=== PATIENT | female | born 1940 | race Caucasian/White ===

== ENCOUNTER 2024-03-01 18:07 | Emergency (ER) | payer MEDICARE, SELFPAY ==
[2024-03-01] VITALS (23 sets, daily range): BP systolic 176–220; BP diastolic 79–172; PULSE 85–114; RESP 15–23; TEMP 36.7; O2SAT 85–96
--- NOTE | 2024-03-01 18:15 | DI.CT_ITS ---
Exam(s) CT HEAD CERV SPINE FACIAL WO EXAM: CT HEAD CERV SPINE FACIAL WO CLINICAL HISTORY: fall, right periorbital hematoma , right max lac. TECHNIQUE: Imaging Protocol: Axial computed tomography images with coronal and sagittal reformatted images were created and reviewed COMPARISON: No exams were available for comparison FINDINGS: CT Head: Ventricles and Extra axial spaces: Normal in size and morphology for the patient's age. Hemorrhage: None. Cerebral parenchyma: There are areas of decreased attenuation in the white matter consistent with chr onic microvascular ischemic disease. There is a old lacunar infarct on the left. There is a calcifi ed mass measuring approximately 1.2 cm seen in the periventricular regions superior to the right late ral ventricle. Midline shift: None. Brainstem/Cerebellum: Normal. Calvarium: Normal. Visualized Paranasal sinuses/Mastoids: There is a mucous retention cyst or polyp in the left maxillar y sinus. Soft Tissues: There is right periorbital soft tissue swelling. There is also soft tissue swelling ov er the right forehead. There is also edema seen in the soft tissues over the right cheek. No focal fluid collection is seen to suggest an abscess. CT Face: Facial Bones: No definite fracture is noted in facial bones. Sinuses and Mastoids: Mucous retention cyst or polyp in the left maxillary sinus. Globes, extraocular muscles, optic nerves and retrobulbar fat: Normal. Upper aerodigestive tract: Normal. Mandible and bilateral temporomandibular joints: Normal. Soft tissues: Right periorbital and right cheek soft tissue swelling. CT Cervical Spine: Bones: No acute fracture or subluxation. Age-appropriate degenerative changes are seen in the cervica l spine. Soft Tissues: Unremarkable. Lung Apices: Clear. IMPRESSION: 1. No acute intracranial process. 2. Soft tissue swelling in the right periorbital region, right forehead and right cheek. 3. No acute fracture or subluxation in the cervical spine. 4. No acute facial fracture. 5. 1.2 cm partially calcified lesion adjacent to the right lateral ventricle. There are no prior jonathan dies for comparison. MRI may be considered for further evaluation. RADIATION DOSE DELIVERED: 2,028.88mGy.cm Total DLP DATA REPOSITORY: All CT scans at this facility are submitted to the National Radiology Data Registry (NRDR) Dose Index Registry (DIR) with the [employer] ([employer]). RADIATION OPTIMIZATION: All CT scans at this facility use at least one of these dose optimization te chniques: automated exposure control; mA and/or kV adjustment per patient size (includes targeted exa ms where dose is matched to clinical indication); or iterative reconstruction.
--- NOTE | 2024-03-01 19:19 | DI.RAD_ITS ---
Exam(s) XR PORTABLE CHEST AP EXAM: XR PORTABLE CHEST AP CLINICAL HISTORY: hypoxia TECHNIQUE: 2D digital imaging was performed of the chest. One image was obtained. An AP view was ob tained. COMPARISON: No exams were available for comparison FINDINGS: MEDIASTINUM: Normal. HEART: Normal. PULMONARY VASCULATURE: There is mild ectasia tortuosity of the thoracic aorta. LUNGS: Clear. PLEURAL SPACE: No pleural effusion or pneumothorax. BONE:Within normal limits for the patient's age. OTHER FINDINGS:There is a peripheral calcification projected over the T10 vertebral body of uncertain if any clinical significance. Foreign body cannot be excluded. External artifact should be conside red. Please correlate with physical exam. If further imaging is warranted, a PA and lateral chest s hould be obtained. IMPRESSION: 1. No acute pulmonary findings. 2. Rounded density projected over the T10 vertebral body as described above. Unexpected findings DATA REPOSITORY: RADIATION DOSE DELIVERED:
--- NOTE | 2024-03-01 19:51 | DI.VRAD_ITS ---
PROCEDURE INFORMATION: Exam: CT Head Without Contrast Exam date and time: 03/01/2024 18:33 Age: 83 years old Clinical indication: Injury or trauma; Blunt trauma (contusions or hematomas); Consciousness not specified; Orbit/periorbital; Patient HX: Fall, right periorbital hematoma, right max lac TECHNIQUE: Imaging protocol: Computed tomography of the head without contrast. COMPARISON: No relevant prior studies available. FINDINGS: Brain: Click riding paranasal Atrophy and chronic appearing white matter changes. Chronic cerebellar infarcts. A predominantly calcified 10 cm structure in the right periventricular parietal lobe without surrounding edema is likely benign or indolent. Follow-up as per institutional protocol. Cerebral ventricles: No ventriculomegaly. Paranasal sinuses: No acute sinusitis. Mastoid air cells: No mastoid effusion. Bones: The calvarium is intact. Soft tissues: Mild right frontal scalp swelling. IMPRESSION: 1. No acute intracranial findings. 2. Mild right frontal scalp swelling. PROCEDURE INFORMATION: Exam: CT Maxillofacial Without Contrast Exam date and time: 03/01/2024 18:33 Age: 83 years old Clinical indication: Injury or trauma; Blunt trauma (contusions or hematomas); Consciousness not specified; Orbit/periorbital; Patient HX: Fall, right periorbital hematoma, right max lac TECHNIQUE: Imaging protocol: Computed tomography of the face without contrast. COMPARISON: No relevant prior studies available. FINDINGS: Orbital cavities: Orbits are normal. Globes are unremarkable. Paranasal sinuses: Benign-appearing left maxillary sinus retention cyst. No acute appearing sinusitis. Bones: No acute fracture or subluxation. Soft tissues: Moderate right periorbital and pre maxillary soft tissue swelling with a small subcutaneous hematoma. IMPRESSION: 1. No acute bony pathology. 2. Moderate right periorbital and pre maxillary soft tissue swelling with a small subcutaneous hematoma. PROCEDURE INFORMATION: Exam: CT Cervical Spine Without Contrast Exam date and time: 03/01/2024 18:33 Age: 83 years old Clinical indication: Injury or trauma; Blunt trauma (contusions or hematomas); Consciousness not specified; Orbit/periorbital; Patient HX: Fall, right periorbital hematoma, right max lac TECHNIQUE: Imaging protocol: Computed tomography of the cervical spine without contrast. COMPARISON: No relevant prior studies available. FINDINGS: Bones: No acute fracture or subluxation. Moderate multilevel degenerative changes without nikole central canal stenosis. Multilevel neural foraminal stenosis. Lungs: No consolidation. Soft tissues: No suspicious lesions. IMPRESSION: No cervical spine fracture. Dictated and Authenticated by: Ivanna Butt MD. Ordering:MICHELLE Ortiz MD
--- NOTE | 2024-03-01 20:44 | DI.VRAD_ITS ---
PROCEDURE INFORMATION: Exam: XR Chest Exam date and time: 03/01/2024 7:13 PM Age: 83 years old Clinical indication: Other: Hypoxia TECHNIQUE: Imaging protocol: Radiologic exam of the chest. Views: 1 view. Other technique: Portable exam. COMPARISON: CT HEAD CERV SPINE FACIAL WO 03/01/2024 6:33 PM FINDINGS: Lungs: Unremarkable. No consolidation. Pleural spaces: Unremarkable. No pleural effusion. No pneumothorax. Heart/Mediastinum: Cardiomegaly. Vasculature: Aortic ectasia. Bones/joints: Unremarkable. IMPRESSION: No evidence for acute abnormality in the chest. Dictated and Authenticated by: Tamela Hartman MD. Ordering:MICHELLE Ortiz MD
--- NOTE | 2024-03-02 17:12 | ED.GENADUL_ITS ---
Discharge Plan Disposition Patient Disposition: Home Discharge Details Clinical Impression: Face lacerations, Hematoma Primary Care Provider: Yefri Rene ED Provider: Diana Bellamy Home Meds and New Rx's Prescriptions: Continued atorvastatin 40 mg tablet 40 mg PO QHS carvedilol 3.125 mg tablet 3.125 mg PO BID Rx Instructions: must administer with a meal/food ezetimibe 10 mg tablet 10 mg PO DAILY levothyroxine [Euthyrox] 100 mcg tablet 100 mcg PO DAILY losartan 100 mg tablet 100 mg PO DAILY Discharge Instructions Instructions: Facial Laceration (ED) Additional Instructions: keep wound clean and dry tylenol as needed for pain suture removal in 7 days wash with soap and water twice daily return earlier with new or worsening complaint s Referrals: Yefri Rene [Primary Care Provider] - 1 day Discharge Data Discharge Date/Time-TO BE ENTERED AT DEPARTURE: 03/01/24 21:47 HPI General Date/Time Provider Initiated Documentation: 03/01/24 18:23 . HPI Narrative: This 83-year-old female with a history of hypothyroidism, hypertension, Alzheimer's dementia, and hyperlipidemia presents with report of fall. Unwitnessed but patient screamed and was alert and oriented when staff ran in room, no obvious loss of consciousness. Patient is not supposed to be ambulating independently and she was attempting to stand reportedly Patient fell forward and hit her face on the floor. She was brought in for assessment secondary to significant swelling and ecchymosis with bleeding and laceration. Patient is DNR/DNI, family and physician at skilled centers are requesting assessment. Patient is agreeable to assessment in the emergency department exam tetanus reportedly up-to-date. Related Data Home Medications Medication Instructions Recorded Confirmed atorvastatin 40 mg tablet 40 mg PO QHS 03/01/24 03/01/24 carvedilol 3.125 mg tablet 3.125 mg PO BID 03/01/24 03/01/24 ezetimibe 10 mg tablet 10 mg PO DAILY 03/01/24 03/01/24 levothyroxine 100 mcg tablet 100 mcg PO DAILY 03/01/24 03/01/24 (Euthyrox) losartan 100 mg tablet 100 mg PO DAILY 03/01/24 03/01/24 Allergies Allergy/AdvReac Type Severity Reaction Status Date / Time adhesive tape Allergy Mild Unknown Verified 03/01/24 19:56 bupivacaine Allergy Unknown Unknown Verified 03/01/24 19:56 enalapril Allergy Unknown Unknown Verified 03/01/24 19:56 silicone Allergy Unknown Unknown Verified 03/01/24 19:56 simvastatin Allergy Unknown Unknown Verified 03/01/24 19:56 General Stated Complaint: Fall/Non TraumaCriteria AMELIA: 2 Exam Narrative Exam Narrative: Alert and oriented times three 83-year-old female, 2 inch laceration inferior to right orbit, pupils equal round reactive to light and accommodation, extraocular muscles intact epistaxis controlled to bilateral naris, ecchymosis and swelling to nasal bridge, maxillary swelling and tenderness, right predominantly with periorbital ecchymosis, no crepitus, no midline cervical spine tenderness, no chest wall tenderness, lungs clear to auscultation bilaterally, no respiratory distress, cardiac rate rhythm regular, no abdominal tenderness or visible evidence of trauma, able to follow all basic commands, neurovascularly intact all 4 extremities Course Vital Signs Vital signs: Vital Signs Temperature 36.7 C 03/01/24 18:05 Pulse 91 H 03/01/24 18:05 Respiratory Rate 18 03/01/24 18:05 Blood Pressure 199/82 H 03/01/24 18:05 Pulse Oximetry 89 L 03/01/24 18:05 Temperature 36.7 C 03/01/24 18:05 Temperature Source Skin 03/01/24 18:05 Pulse 99 H 03/01/24 21:06 Pulse 100 H 03/01/24 21:06 Respiratory Rate 22 03/01/24 21:06 Respiratory Effort Normal 03/01/24 18:12 Blood Pressure 181/89 H 03/01/24 21:06 Blood Pressure Mean 125 03/01/24 21:06 Blood Pressure Position Sitting 03/01/24 18:05 Pulse Oximetry 96 03/01/24 21:06 Oxygen Delivery Method Room Air 03/01/24 18:05 Oxygen Flow Rate 0 03/01/24 18:05 Pain Level 0 03/01/24 18:05 Medical Decision Making 83-year-old female with large facial laceration, given trauma to right orbit I did order CT facial bones, cervical spine, and head, no evidence of retrobulbar hematoma, no proptosis, negative Osbaldo sign, extraocular muscles intact, laceration was sutured with 4 sutures and these will need to be removed Patient is interestingly redness to have proximal in a supine position but in no respiratory distress with clear lungs auscultation, sooner she is seated in an upright position on better standing, her oxygenation is 96% She states that her oxygen levels are always low and improved with ambulation and this is typical for her. She is unsure of her baseline at time of assessment. I did order a chest x-ray which does not show evidence of obvious pneumothorax and again within normal respiratory exam I think this is reassuring. I did attempt to call Melani patient's DPCINDI, however there is no return call so sutures were placed CT images per virtual radiology interpretation my review are negative for acute process and patient is encouraged to follow-up regarding possible calcification for MRI at her discretion. She be discharged home to skilled rehabilitation center where she currently resides for continued monitoring and wound care Quality:SDOH Health Related Social Needs: No Data to Display PFSH All Active Problems (Updated 03/01/24 @ 21:16 by CORINA Jenkins) Hematoma (Acute) Face lacerations (Acute) Social History Smoking risk assessment performed?: No Substance use type: does not use Housing: other
== END 2024-03-01 21:47 | disposition home or self-care (01) ==
PROVIDERS: Emergency Provider Physician Assistant; PCP Family Medicine
DX: S01.81XA Laceration without foreign body of other part of head, initial encounter (principal); I10 Essential (primary) hypertension; E78.5 Hyperlipidemia, unspecified; E03.9 Hypothyroidism, unspecified; G30.9 Alzheimer's disease, unspecified; F02.80 Dementia in other diseases classified elsewhere, unspecified severity, without behavioral disturbance, psychotic disturbance, mood disturbance, and anxiety; Z66 Do not resuscitate; W18.39XA Other fall on same level, initial encounter; Y93.01 Activity, walking, marching and hiking; Y92.092 Bedroom in other non-institutional residence as the place of occurrence of the external cause
CPT/HCPCS: 12011; 99284; 70450; 70486; 71045; 72125

== ENCOUNTER 2024-03-22 08:29 | Emergency (ER) | payer MEDICARE, SELFPAY ==
[2024-03-22 08:34] VITALS: BP 174/86; PULSE 71; RESP 10; TEMP 36.2; O2SAT 92
[2024-03-22 08:44] VITALS: BP 174/86; PULSE 71; RESP 10; TEMP 36.2; O2SAT 92
--- NOTE | 2024-03-22 08:55 | W.ED.GENAD ---
Discharge Plan Disposition Patient Disposition: Home Condition: Stable Discharge Details Clinical Impression: Post surgical complication Primary Care Provider: Yefri Rene ED Provider: Diana Bellamy Home Meds and New Rx's Prescriptions: Continued acetaminophen 325 mg tablet 325 mg PO Q4H PRN aspirin 81 mg tablet,delayed release (DR/EC) 81 mg PO DAILY atorvastatin 40 mg tablet 40 mg PO QHS carvedilol 3.125 mg tablet 3.125 mg PO BID Rx Instructions: must administer with a meal/food ezetimibe 10 mg tablet 10 mg PO DAILY levothyroxine [Euthyrox] 100 mcg tablet 100 mcg PO DAILY losartan 100 mg tablet 100 mg PO DAILY Discharge Instructions Additional Instructions: I spoke with [facility] surgery group and the recommendation is to call interventional radiology on Sunday for instruction it sounds like patient has an appointment on the At this time I would keep the wound covered and change gauze twice daily and wash with cleansing solution twice daily With abdominal pain, fever, worsening drainage from site patient will need reassessment likely by her surgeon at [facility] or return to emergency department for reassessment Referrals: Yefri Rene [Primary Care Provider] - HPI General Date/Time Provider Initiated Documentation: 03/22/24 08:39. HPI Narrative: This 83-year-old female with past medical history of hypothyroidism, hypertriglyceridemia, hypertension, and hyperlipidemia presents with report of surgical drain accidentally displaced from abdomen. Patient is status post perforated appendicitis on January 10 with drain placed. Patient denies any current complaints and is unsure how the drain became dislodged. She denies any pain or drainage from the site and states she thinks it happened just prior to arrival. Related Data Home Medications Medication Instructions Recorded Confirmed atorvastatin 40 mg tablet 40 mg PO QHS 03/01/24 03/22/24 carvedilol 3.125 mg tablet 3.125 mg PO BID 03/01/24 03/22/24 ezetimibe 10 mg tablet 10 mg PO DAILY 03/01/24 03/22/24 levothyroxine 100 mcg tablet 100 mcg PO DAILY 03/01/24 03/22/24 (Euthyrox) losartan 100 mg tablet 100 mg PO DAILY 03/01/24 03/22/24 acetaminophen 325 mg tablet 325 mg PO Q4H PRN 06/22/24 06/22/24 aspirin 81 mg tablet,delayed 81 mg PO DAILY 03/22/24 03/22/24 release Allergies Allergy/AdvReac Type Severity Reaction Status Date / Time adhesive tape Allergy Mild Unknown Verified 03/22/24 08:43 bupivacaine Allergy Unknown Unknown Verified 03/22/24 08:43 enalapril Allergy Unknown Unknown Verified 03/22/24 08:43 silicone Allergy Unknown Unknown Verified 03/22/24 08:43 simvastatin Allergy Unknown Unknown Verified 03/22/24 08:43 General Stated Complaint: Abd Prob AMELIA: 3 Exam Narrative Exam Narrative: Alert and oriented 83-year-old female nontender abdominal exam, drain site in right lower quadrant without significant evidence of trauma, no redness or swelling, no drainage appreciated, cardiac rate and rhythm normal, no respiratory distress Course Vital Signs Vital signs: Vital Signs Temperature 36.2 C L 03/22/24 08:34 Pulse 71 03/22/24 08:34 Respiratory Rate 10 L 03/22/24 08:34 Blood Pressure 174/86 H 03/22/24 08:34 Pulse Oximetry 92 03/22/24 08:34 Temperature 36.2 C L 03/22/24 08:44 Temperature Source Temporal Artery Scan 03/22/24 08:44 Pulse 71 03/22/24 08:44 Respiratory Rate 10 L 03/22/24 08:44 Respiratory Effort Normal, Non-Labored 03/22/24 08:43 Blood Pressure 174/86 H 03/22/24 08:44 Blood Pressure Position Supine 03/22/24 08:44 Pulse Oximetry 92 03/22/24 08:44 Oxygen Delivery Method Room Air 03/22/24 08:44 Oxygen Flow Rate 0 03/22/24 08:44 Pain Level 0 03/22/24 08:44 Medical Decision Making 83-year-old female presenting for detention placed on 01/11/24 by [facility]. Discussed with Dr. Weber surgeon at [facility] and his recommendation is to call interventional radiology on Sunday, patient has an appointment on 03/25/2024 for likely removal of the drain and he sees no clear indication to have the drain replaced at this time. CBC was ordered at his request but does not show any leukocytosis. He did not feel that his CT abdomen and pelvis is warranted at this time as patient has quite benign exam. There is no sign of significant traumatic injury and it sounds like the dislodgment was secondary to performing ADLs and getting dressed in the morning. The rehab was encouraged to call interventional radiology or surgeon for additional information on Sunday. No additional surgical intervention is required at this time per on-call surgeon at [facility]. Patient discharged home in stable condition with stable vitals. Wound was cleansed and dressing applied by nursing staff with recommendations for dressing changes twice daily and abdominal exams frequently until she is reassessed. Quality:SDOH Health Related Social Needs: No Data to Display PFSH All Active Problems (Updated 03/22/24 @ 09:53 by CORINA Jenkins) Post surgical complication (Acute) Hematoma (Acute) Face lacerations (Acute) Social History Smoking risk assessment performed?: No Substance use type: does not use Housing: other
[2024-03-22 09:36] LABS: Abs Immature Grans 0.03 10^3/uL (0.0-0.06); Absolute Basophil Count 0.03 10^3/uL (0.0-0.2); Absolute Eosinophil Count 0.22 10^3/uL (0.0-0.7); Absolute Lymphocyte Count 1.04 10^3/uL (1.2-3.4); Absolute Monocyte Count 0.54 10^3/uL (0.1-0.8); Absolute Neutrophil Count 4.86 10^3/uL (1.2-6.7); Basophils % 0.4 %; Eosinophils % 3.3 %; HCT 36.5 % (36.0-46.0); Immature Grans % 0.4 %; Lymphocytes % 15.5 %; MCH 30.7 pg (27.0-33.0); MCHC 32.9 % (32.0-36.0); MCV 93 fL (80-95); MPV 10.1 fL (8.0-11.0); Neutrophils % 72.4 %; Platelet Count 252 10^3/uL (130-400); RBC 3.91 10^6/uL (3.93-5.22); RDW-SD 47.2 fL; WBC 6.72 10^3/uL (4.4-10.8)
[2024-03-22 10:01] VITALS: BP 156/85; PULSE 71; RESP 18; O2SAT 90
== END 2024-03-22 10:36 | disposition home or self-care (01) ==
PROVIDERS: Emergency Provider Physician Assistant; PCP Family Medicine
DX: S31.103A Unspecified open wound of abdominal wall, right lower quadrant without penetration into peritoneal cavity, initial encounter (principal); Z48.01 Encounter for change or removal of surgical wound dressing; T81.9XXA Unspecified complication of procedure, initial encounter
CPT/HCPCS: 36415; 99281; 85025; 99282

== ENCOUNTER 2024-04-29 18:08 | Outpatient (REF) | payer MEDICARE, SELFPAY ==
--- OUTSIDE RECORDS SUMMARY | 2024-04-29 18:11 | XMS_ITS | Encounter Summary ---
Author Organization [facility] Address [address] [place] [address] Care Team Providers Care Top Printing Press Operator Name Role Phone Nivia Tinsley MD Primary Care Provider Zheng Tapia MD Unavailable Shazia Burks MD Unavailable [phone] Tony Baron OD Unavailable [phone] Keira Paniagua MD Unavailable [phone] Siva Perkins MD Unavailable [phone] Chaparro Salas Unavailable Unavailable Encounter Details Date Type Department Care Team (Late st Contact Info) Description 04/21/2024 Patient Outreach [facility] [address] [id number] Chaparro Salas Social History Tobacco Use Types Packs/Day Years Used Date Smoking Tobacco: Never Smokeless Tobacco: Never Alcohol Use Standard Drinks/Week Comments Yes 0 (1 standard drink = 0.6 oz pur e alcohol) sips here and there [facility] Utilities Answer Date Recorded In the past 12 months has th e electric, gas, oil, or water company threatened to shut off services in your home? No 01/28/2024 AUDIT-C Answer Date Recorded Frequency of Alcohol Consumption Monthly or less 09/09/2019 Average Number of Drinks 1 or 2 019 Frequency of Binge Drinking Less than monthly Overall Financial Resource Strain (CARDIA) Answe r Date Recorded How hard is it for you to pa y for the very basics like food, housing, medical care, and heating? Not hard at all 01/28/2024 PHQ-2 Answer Date Recorded PHQ-2 SUBTOTAL 0 01/31/2023 Hunger Vital Sign Answer Date Recorded Within the past 12 months, y ou worried that your food would run out before you got the money to buy more. Never true 01/28/20 24 Within the past 12 months, t he food you bought just didn't last and you didn't have money to get more. Never true 01/28/2024 PRAPARE - Transportation Answer Date Re corded In the past 12 months, has l ack of transportation kept you from medical appointments or from getting medications? No 12/31 In the past 12 months, has l ack of transportation kept you from meetings, work, or from getting things needed for daily living? No 01/28/2024 Housing Stability Vital Sign Answer Kenney e Recorded In the last 12 months, was t here a time when you were not able to pay the mortgage or rent on time? No 01/28/2024 In the last 12 months, how many places have you lived? 1 01/28/2024 In the last 12 months, was t here a time when you did not have a steady place to sleep or slept in a residential (including now)? No 01/28/2024 Interpersonal Safety Answer Date Record ed How often does anyone, kalani doshi family, hit, punch or physically hurt you? Never 12/26/2021 How often does anyone, kalani doshi family, insult, scream, curse or threaten to hurt you? Rarely 12/26/2021 Education Answer Date Recorded What is the highest level of school you have completed or the highest degree you have received? Bachelor's degree (e.g., BA, AB, BS) 09/01/2019 Sex and Gender Information Value Date Recorded Sex Assigned at Not on file Gender Identity Female 05/18/2021 10:23 EDT Sexual Orientation Not on file documented as of this encounter Functional Status Functional Status Response Date of Assess ment Are you deaf or do you have serious difficulty h earing? Yes 01/02/2024 Are you blind or do you have serious difficulty seeing, even when wearing glasses? Yes 01/02/2024 Do you have serious difficul ty walking or climbing stairs? (5 years old or older) Yes 01/02/2024 Do you have difficulty dress ing or bathing? (5 years old or older) Yes 01/02/2024 Because of a physical, menta l, or emotional condition, do you have difficulty doing errands alone such as visiting a doctor's office or shopping? (15 years old or older) No 01/02/2024 Cognitive Status Response Date of Assessm ent Because of a physical, menta l, or emotional condition, do you have serious difficulty concentrating, remembering, or making decisions? (5 years old or older) No 01/02/2024 documented as of this encounter Progress Notes * Chaparro Salas - 04/21/2024 1048 EDT [facility] Integrated Care Management Care Coordination Note Attraction Attendant spoke with Amoss kids, Diana, on 04/21/24 in order to coordinate care. Lane and Melani shared that they received an acceptance letter from [facility]. They have been communicating with Jonelle at [facility], but she is on vacation until this Sunday. Melani is under the impression that their mom has been accepted for the detention side, but Lane is not one hundred percent sure this is the case. CM advised Lane and Melani to connect with Jonelle on Sunday to determine what side of [facility] Concetta has been accepted to. CM also advised Lane and Melani to try to pin point a move in date, so that they can coordinate Concetta's discharge from [facility]. In the meantime, Melani has a meeting with Katiuska Chavez from [facility] this coming . Melani is planning to tour both facilities, and given a bed offer from both facilities, determine her preference based on her visit. Lane and Melani have found CM's check in helpful, and have requested a check in one month. PLAN: CM will plan to check back in with Lane and Melani on 05/26/24. CHAPARRO SALAS 04/21/2024 10:49 documented in this encounter Plan of Treatment Upcoming Encounters Date Type Department Care Team (Late st Contact Info) Description 06/11/2024 12:45 EDT Office Visit [facility] [place] [address], [place] [phone] Santiago Anthony MD [address] [facility] [address] [place] [address] 07/15/2024 10:45 EDT Office Visit [facility] [address], [place] [phone] Gianfranco Flowers MD [address] [place] [phone] documented as of this encounter Visit Diagnoses Not on filedocumented in this encounter Care Teams Top Printing Press Operator Relationship Specialty Start Date End Date Nivia Tinsley MD [address] [place] [phone] PCP - General Family Medicine - Primary Care 08/27/19 Zheng Tapia MD [address] [place] [address] [address] [place] [address] Internal Medicine - Primary Care 09/01/19 Shazia Burks MD [address] [place] [id number] Neurology 09/01/19 Tony Baron OD [address] [place] [phone] Dustless Operator 09/01/19 Keira Paniagua MD [address] [place] [address] [address] [place] [phone] Cardiovascular Disease 09/06/20 Siva Perkins MD [address] [facility] [phone] Neurology 09/06/20 Chaparro Salas Attraction Attendant 01/23/24 documented as of this encounter
--- OUTSIDE RECORDS SUMMARY | 2024-04-29 18:11 | XMS_ITS | Encounter Summary ---
Author Organization [facility] Address [address] [place] [address] Care Team Providers Care Manager Urology Name Role Phone Nivia Tinsley MD Primary Care Provider Zheng Tapia MD Unavailable Shazia Burks MD Unavailable [phone] Tony Baron OD Unavailable [phone] Keira Paniagua MD Unavailable [phone] Siva Perkins MD Unavailable [phone] Ladonna Candelario Unavailable Unavailable Reason for Visit * Radiology Services (Routine/Next Available) - Authorization Not Required Specialty Diagnoses / Procedures Referred By Lesa alves Referred To Contact Diagnoses Abscess Procedures IR CHANGE PERCUTANEOUS CATHETER - SPECIFY TYPE IR ABSCESS TUBE CHECK IR ABSCESS TUBE CHECK Jhonathan Esquivel MD [address] [facility], [address] [place] [address] [facility] Referral ID Status Reason Start Date Expiration Date Visits Requested Visits Authorized [id number] Authorization Not Required 03/03/2024 1 1 Encounter Details Date Type Department Care Team (Late st Contact Info) Description 03/18/2024 9:24 EDT - 03/18/2024 23:59 EDT Hospital Encounter [facility] Interventional Radiology Unit [address], [place] [id number] Chetan Geiger, PAClairC [address] [address] Shola Duran MD [address] [address] Appendicular abscess (Primary Dx); Abscess Discharge Disposition: Home or Self Care Social History Tobacco Use Types Packs/Day Years Used Date Smoking Tobacco: Never Smokeless Tobacco: Never Alcohol Use Standard Drinks/Week Comments Yes 0 (1 standard drink = 0.6 oz pur e alcohol) sips here and there [facility] Utilities Answer Date Recorded In the [...] place to sleep or slept in a correction (including now)? No 01/28/2024 Interpersonal Safety Answer [...] No 01/02/2024 documented as of this encounter Discharge Instructions * Discharge Instructions* Kannan Pelaez RN - 03/18/2024 10:29 EDT Images from the original note were not included. Interventional Radiology Discharge Instructions for Abscess Drainage Tube Care Tube Placed -Abscess drain Date - 03/18/2024 Procedure Site - Abdomen Provider - Chetan GUEVARA PA-C Aftercare: Activity: Leave the hospital in a wheelchair even if you feel well. Have someone drive you home. Rest today - you may resume normal activity tomorrow. Do not lift anything over 10 lbs. Diet: You may resume your usual diet. Do not drink alcohol for 24 hours. Medications: NO Do not hold any medication Please continue all medication as prescribed. We have placed a drain (small plastic tube) into your body through your skin. Drains are placed formany different reasons. Some of the more common reasons are: Abscess: A large infection in the body. It requires strong antibiotics and removing the pus. Leaks: Fluid from the bowel, pancreas, bile ducts, or the urinary tract may need to be drained to allow leaks to heal. Infected hematomas: Infected buildup of blood under the skin. What to expect: You may be sore for a few days after the tube is inserted. This may limit your activity. Avoid activities that cause a pulling sensation, pain, or kinking of the tube. Caring for your tube at home: The most important element of tube care is good hand washing before and after tube care. FLUSHING - No flushing KEEPING THE DRAIN(S) SECURE - To avoid them from getting pulled out, all drains need to be secured to the skin at all times. NEVER leave a tube dangling since it is at risk to be pulled out. If this occurs, place a Band-Aid or sterile dressing over the site and call the Interventional Radiology clinic immediately. If you think your tube is partially pulled out or if it comes out completely, we can usually put a new tube back in easily if you come see us immediately. If your tube is pulled out, tape it to your skin. DO NOT TRY TO PUSH THE TUBE BACK IN. Our number is below, and someone is available 24 hours a day, including weekends and holidays. EMPTYING-Empty the bag daily and record the output (do not include the amount you flushed into the tube). We recommend having two drainage bags. (You can purchase extra bags at the [facility], Main outpatient pharmacy in the [facility]). You should be discharged with a spare bag and Y connector before you leave the hospital. WOUND CARE - It is important to keep the skin around the tube healthy. You must clean the skin around the tube entry site with soap and water at least three times per week and anytime your dressing gets wet or dirty. How to change the dressin. Empty your bag or drainage bulb. 2. Carefully remove the old dressing without pulling on the tube. Please do not use scissors unlessyou are unable to get the dressing off. If you must use scissors, be careful not to cut the tube. 3. Gently wash the skin around the tube and the securing device (disc or stat lock) with soap and water. (Use a mild non-perfumed soap) 4. Allow your skin to completely dry. 5. Check the skin around the tube for any redness. 6. Place a gauze under the disc or securing device, next to your skin. If a blue disc has been used, roll up a gauze and place it under the tube to prevent the tube from kinking. Finish the dressing with a gauze on top. Secure the dressing with tape or a bandage. 7. Keep the tube secure, especially while walking. It is preferable to secure the bag on the thigh,not the calf. 8. Showering - You may take a shower but you must cover the dressing with plastic wrap to keep it dry. It may be easier for you to take a sponge bath. You may NOT take a tub bath or swim. How to flush your tube 1.) Squeeze the clamp until you hear it click 2.) Scrub the luer-lock (or flush clave) with an alcohol swab for at least 15 seconds. 3.) Flush through the luer-lock (flush clave) into the tube slowly with normal saline. 4.) Open the clamp to allow fluid to drain back into your bag. When to contact the [facility] (call visiting nurse first): 1. If the drainage decreases suddenly or if you are unable to flush your tube. (Be sure your clamp is open.) 2. If there is drainage around the tube at the skin. 3. If the skin around the tube is red, irritated, or swollen. 4. If you have shaking chills. 5. If you have a fever equal to or greater than 101 degrees Fahrenheit/38.3 degrees Celsius. 6. If you have unusual pain at the tube site. 7. If the drain becomes dislodged. Tape it in place. Do not try to push it back in. IF YOU HAVE ANY QUESTIONS OR CONCERNS OR IF YOU HAVE DEVELOPED ANY OF THE SYMPTOMS ABOVE, PLEASE CALL THE INTERVENTIONAL RADIOLOGY CLINIC AT , OPTION 2 TO REACH THE NURSE TRIAGE LINE. THERE WILL BE ASSISTANCE AVAILABLE 24 HOURS A DAY. IF YOU CALL AFTER HOURS YOU WILL BE CONNECTED WITHAN ON-CALL PHYSICIAN BY PRESSING 1. Follow up: You should plan to come back and have your tube checked or removed on 03/25 @ 10:30. A provider willperform a tube study by injecting dye into your tube while taking an xray to see if your abscess issmaller. Please bring a record of your daily output. This will help determine if your tube is readyto be removed. If your daily output amount is 20 ml or greater (not including the flush intake amount), please call to possible have your tube study changed to a later date. Most tubesare ready to come out when the output is less than 15 ml daily. Please pre-register prior to your appointment. If you cannot come at this time, please call to change your appointment. If you were not given a follow up appointment, please call the IR clinic at . documented in this encounter Medications at Time of Discharge Medication Sig Dispensed Refills Start Date End Date acetaminophen (TYLENOL) 325 mg tablet Take 2 Tablets by mouth every 4 hours as needed for Pain. 01/11/2024 amoxicillin-clavulanate (AUGMENTIN) 875-125 mg per tablet Take 1 Tablet by mouth every 12 hours. 01/11/2024 aspirin chewable 81 mg tablet CHEW AND SWALLOW 1 TABLET BY MOUTH ONCE DAILY 30 Tablet 11 08/01/2023 atorvastatin (LIPITOR) 40 mg tablet Take 1 Tablet by mouth at bedtime. 30 Tablet 11 11/14/2023 carvedilol (COREG) 3.125 mg tablet Take 1 Tablet by mouth 2 times daily with breakfast and dinner. 180 Tablet 3 10/11/2023 cholecalciferol (VITAMIN D3) 1,250 mcg (50,000 unit) capsuleIndications:Vitami n D deficiency Take 1 Capsule by mouth once a week. For 12 weeks 12 Capsule 11/22/2023 cholecalciferol, Vitamin D3, 25 mcg (1,000 unit) tablet Take 1 Tablet by mouth daily. 04/28/2022 cyanocobalamin (VITAMIN B-12) 1,000 mcg tablet Take 1 Tablet by mouth daily. 90 Tablet 1 08/31/2023 ezetimibe (ZETIA) 10 mg tablet Take 1 Tablet by mouth daily. 90 Tablet 1 12/14/2023 hypromellose (ISOPTO TEARS) 0.5 % ophthalmic solution Place 1 Drop into both eyes 3 times daily. ibuprofen (MOTRIN) 400 mg tabletIndications:Primary osteoarthritis of both hips Take 1 Tablet by mouth 2 times daily as needed for Pain. 180 Tablet 4 11/22/2023 levothyroxine (SYNTHROID) 100 mcg tabletIndications:Other specified hypothyroidism Take 1 Tablet by mouth daily. 30 Tablet 11 10/09/2023 losartan (COZAAR) 100 mg tabletIndications:Essenti al hypertension 1 tab(s) orally once a day 30 Tablet 11 11/06/2023 medical supply, miscellaneous (W[employer] ACCESSORY MISC) with seat, basket under the seat and breaks as directed dx: Abnormal gait and legally blind daily 07/13/2017 tvthxpiu-nnmdzhmna-sjudjl thasone (MAXITROL) 3.5mg/mL-10,000 unit/mL-0.1 % ophthalmic suspension 01/19/2023 nitroglycerin (NITROSTAT) 0.4 mg SL tabletIndications:NSTEMI (non-ST elevated myocardial infarction) ([facility]) Place 1 Tablet under the tongue every 5 minutes as needed for Chest Pain. 30 Tablet 03/14/2022 polyethylene glycol 3350 (MIRALAX) 17 gram packet Take 17 g by mouth daily. 01/11/2024 triamcinolone (KENALOG) 0.1 % cream Apply topically to affected area 2 times daily. For up to 2 weeks to rash on legs and neck. Do not apply to face, armpit or groin. 60 g 3 08/28/2023 vit A,C & J-aeoddm-hrerorpq (OCUVITE) 300 mcg-200 mg-27 mg-2 mg tablet Take 1 tab by mouth daily 30 Tablet 11 10/16/2023 documented as of this encounter Discharge Disposition Disposition Code Departure Means Destination Home or Self Care documented in this encounter Progress Notes * Kannan Pelaez RN - 03/18/2024 0930 EDT Pt in IR for tube check / exchange. Patient name and verified. Patients allergies, medications and lab results reviewed. Patient educated on procedure, patient verbalized understanding. Events: Patient arrived to the IR suite at 0935 from waiting. Members in the room introduced. Pt moved to the IR table in supine position. tube area prepped in the usual sterile fashion with Hibbaclense, by tp in accordance with reservoir engineering manager recommendation. Tube was exchanged over wire See MD note for procedure events Patient tolerated the procedure well. Follow up plan: 03/25 10:30 documented in this encounter Procedure Notes * Chetan Geiger PA-C - 03/18/2024 0930 EDT IR Procedure Note Procedure: Abscessogram, and Drain Exchange with Reposition Date Performed: 03/18/2024 Radiologist/Underwater Trapper(s): Helene Alcantar PA-C Sedation/Anesthesia: None Time Out: A time-out was completed prior to procedure verifying correct patient, procedure, site, positioning, and special equipment if applicable. Estimated Blood Loss: Unless otherwise noted, there was no blood loss, specimens removed, cultures obtained, or drains retained. Specimens: None Fluoroscopy Time: 1.5 Min Contrast Volume: Omnipaque 300- 12 cc Complications: No Condition: Stable Post Procedure Diagnosis: Appendicular abscess Findings: Minimal drainage from drain per Pt. Injection of contrast through the tube proves patency, and reveals that the drain has migrated into the bowel. The site was prepped and draped and the existing pigtail drain was exchanged for a Yueh pigtail which was positioned within the tissue tract. The catheter was fixed in place with a FlexGrip device, and attached to gravity drainage. Recommendations: Cease flushing this drain. F/U in 1 week for probable tube removal. Chetan Geiger PA-C 03/18/2024 10:53 documented in this encounter Plan of Treatment Upcoming Encounters Date Type Department Care Team (Late st Contact Info) Description 06/11/2024 12:45 EDT Office Visit [facility] Ophthalmology - [place] [address] [place] [address] Santiago Anthony MD [address] [place] [address] [address] [place] [address] 07/15/2024 10:45 EDT Office Visit [facility] [address] [place], [place] [phone] Gianfranco Flowers MD [address] [facility] [address] [place] [address] documented as of this encounter Procedures Procedure Name Priority Date/Time Associated Diagnosis Comments IR CHANGE PERCUTANEOUS CATHETER - SPECIFY TYPE Routine 03/18/2024 11:05 EDT Abscess documented in this encounter Results * IR CHANGE PERCUTANEOUS CATHETER - SPECIFY TYPE (03/18/2024 11:05 EDT) Anatomical Region Laterality Modality N/A X-Ray Angiograph y 03/18/2024 17:0 3 EDT Impressions 03/18/2024 17:03 EDT Repositioned, and down-sized right lower quadrant abscess drain. Chetan GUEVARA, JACKIE, RT- (R), (CV) Interventional Radiology The procedure was performed by Chetan Geiger, Physician Underwater Trapper in interventional radiology. The procedure was performed under the direct supervision of the attending physician, Dr. Duran. I have personally reviewed the images and the above interpretation and agree with the findings. [id number] Narrative 03/18/2024 17:03 EDT IR CHANGE PERCUTANEOUS CATHETER - SPECIFY TYPE ??03/18/2024 9:35 AM Signs and Symptoms/Comments: Ruptured Appendix;L02.91:Abscess Findings: ??The patient was brought to the interventional suite and placed in the supine position. ??A timeout was performed according to standard protocol including confirmation of patient identity and planned procedure. ??Initial fluoroscopic spot images of the abscess drain showed no kink or interruption involving the tubing. ??An abscessogram was performed, showing that the pigtail drain has migrated into the bowel lumen. ??The abscess cavity has resolved. ??Patient reports recent drain output to be minimal. ??The existing 8 guinean pigtail drain was then exchanged for a 5 guinean Yueh pigtail which was positioned in the tissue tract. ??A FlexGrip device was used to fix the new tube in place. ??A sterile dressing was applied. ??The patient tolerated the procedure well and without complication. ??The patient will return in 1 week for follow up imaging in IR for possible drain removal. Fluoroscopic time: 1.5 minutes. Contrast: 12cc Omnipaque. Resulting Agency Comment [id number] Procedure Note Shola Duran MD - 03/18/2024 IR CHANGE PERCUTANEOUS CATHETER - SPECIFY TYPE 03/18/2024 9:35 AM Signs and Symptoms/Comments: Ruptured Appendix;L02.91:Abscess Findings: The patient was brought to the interventional suite and placed in thesupine position. A timeout was performed according to standard protocolincluding confirmation of patient identity and planned procedure. Initial fluoroscopic spot images of the abscess drain showed no kink orinterruption involving the tubing. An abscessogram was performed, showingthat the pigtail drain has migrated into the bowel lumen. The abscesscavity has resolved. Patient reports recent drain output to be minimal.The existing 8 guinean pigtail drain was then exchanged for a 5 guinean Yuehpigtail which was positioned in the tissue tract. A FlexGrip device wasused to fix the new tube in place. A sterile dressing was applied. Thepatient tolerated the procedure well and without complication. The patient will return in 1 week for follow up imaging in IR forpossible drain removal. Fluoroscopic time: 1.5 minutes. Contrast: 12cc Omnipaque. IMPRESSION Repositioned, and down-sized right lower quadrant abscess drain. Chetan GUEVARA, JACKIE, RT- (R), (CV) Interventional Radiology The procedure was performed by Chetan Geiger, Physician Underwater Trapper ininterventional radiology. The procedure was performed under the directsupervision of the attending physician, Dr. Duran. I have personally reviewed the images and the above interpretation andagree with the findings. [id number] Jhonathan Esquivel MD IMG IR ORDERABLES documented in this encounter Visit Diagnoses Diagnosis Appendicular abscess- Primary Acute appendicitis with peritoneal abscess Abscess Cellulitis and abscess of unspecified site documented in this encounter Administered Medications Inactive Administered Medications - up to 3 most recent administrations Medication Order MAR Action Action Date Dose Rate Site iohexoL (OMNIPAQUE 300) injection 50 mL 50 mL, Tube, NOW X1, 1 dose, On 03/18/24 at 1015, Routine Given 03/18/2024 10:47 EDT 6 mL iohexoL (OMNIPAQUE 300) injection 50 mL 50 mL, Tube, NOW X1, 1 dose, On 03/18/24 at 1115, Routine Given 03/18/2024 10:47 EDT 6 mL documented in this encounter Orders Medications Ordered That Anant ht Not Have Been Administered Count Last Ordered Date First Ordered Date iohexoL (OMNIPAQUE 300) injection 50 mL 1 0 03/18/2024 documented in this encounter Care Teams Manager Urology Relationship Specialty Start Date End Date Nivia Tinsley MD [address] [place], [place] [phone] PCP - General Family Medicine - Primary Care 08/27/19 Zheng Tapia MD [address] [place] [address] [place] [phone] Internal Medicine - Primary Care 09/01/19 Shazia Burks MD [address] [place], [place] [address] Neurology 09/01/19 Tony Baron OD [address] [place] [phone] Community Engagement Representative 09/01/19 Keira Paniagua MD [address] [place] [phone] Cardiovascular Disease 09/06/20 Siva Perkins MD [address] [facility] [place] [address] Neurology 09/06/20 Ladonna Candelario Lapping Machine Operator 01/23/24 documented as of this encounter
--- OUTSIDE RECORDS SUMMARY | 2024-04-29 18:11 | XMS_ITS | Encounter Summary ---
Author Organization [facility] Address [address] [place] [address] Care Team Providers Care Powerbuilder Name Role Phone Nivia Tinsley MD Primary Care Provider Zheng Tapia MD Unavailable Shazia Burks MD Unavailable [phone] Tony Baron OD Unavailable [phone] Keira Paniagua MD Unavailable [phone] Siva Perkins MD Unavailable [phone] Ladonna Candelario Unavailable Unavailable Reason for Referral * Radiology Services (Routine/Next Available) - Authorization Not Required Specialty Diagnoses / Procedures Referred By Lesa alves Referred To Contact Diagnoses Abscess Procedures IR ABSCESS TUBE CHECK Jhonathan Esquivel MD [address] [facility] [address] [place] [address] [facility] Referral ID Status Reason Start Date Expiration Date Visits Requested Visits Authorized [id number] Authorization Not Required 03/18/2024 1 1 Reason for Visit * Radiology Services (Routine/Next Available) - Authorization Not Required Specialty Diagnoses / Procedures Referred By Lesa alves Referred To Contact Diagnoses Abscess Procedures IR ABSCESS TUBE CHECK Jhonathan Esquivel MD [address] [place] [phone] [facility] Referral ID Status Reason Start Date Expiration Date Visits Requested Visits Authorized [id number] Authorization Not Required 03/18/2024 1 1 Encounter Details Date Type Department Care Team (Late st Contact Info) Description 03/25/2024 9:56 EDT - 03/25/2024 23:59 EDT Hospital Encounter [facility] Interventional Radiology Unit [address] [place] [id number] Chetan Geiger, PAClairC [address] [place] [phone] hJonathan Esquivel MD [address] [place] [phone] Abscess Discharge Disposition: Home or Self Care Social History Tobacco Use Types Packs/Day Years Used Date Smoking Tobacco: Never Smokeless Tobacco: Never Alcohol Use Standard Drinks/Week Comments Yes 0 (1 standard drink = 0.6 oz pur e alcohol) sips here and there [facility] Utilities Answer Date Recorded In the past 12 months has [employer], gas, oil, or water [employer] threatened to shut off services in your [...] place to sleep or slept in a retirement (including now)? No 01/28/2024 Interpersonal Safety Answer [...] this encounter Discharge Instructions * Discharge Instructions* Jane Biggs RN - 03/25/2024 11:00 EDT Interventional Radiology Discharge Instructions After Your Drain Removal Provider - Chetan GUEVARA PA-C Date: 03/25/2024 Procedure Site - Abdomen Today: Rest quietly for the remainder of the day.You may resume normal activities tomorrow. If you have received sedation or pain medication, DO NOT drive or make legal decisions today. If we have removed a tunneled chest catheter, DO NOT lie flat for a minimum of 4 hours from the endtime of your procedure to reduce your risk of bleeding. You may resume your normal diet after the procedure. Avoid alcoholic beverages for 24 hours to reduce your risk of bleeding. You may take Tylenol (acetaminophen) for pain. If you are on antibiotics, you must finish the entire prescription unless the prescribing provider tells you otherwise. How to care for your wound site: Leave your dressing on today. Tomorrow: Remove your dressing. Gently wash your wound site with soap and water at the sink or in the shower. Do this daily until the wound site heals over. Apply a new dressing daily until the wound site scabs over. After a scab is formed, you may leave the wound site open to air. Do not take a bath, swim, or soak in a hot tub until your wound site heals over (usually one week). If you notice drainage on your dressing today, change your dressing as needed to keep your skin dry. It is normal to have some fluid drainage after the removal of abscess drains, nephrostomy tubes, and liver or gallbladder tubes. Change your dressing as needed to keep your skin dry. This should decrease over the next 24 hours. Things to Report (our phone number is below. Someone can take your call 24 hours/day including weekends and holidays): Signs or symptoms of infection: redness, swelling, an increase in drainage or pain, fever greater than 100.4 degrees Fahrenheit or 38 degrees Celsius, pain at the wound site that is not relieved by Tylenol. If your dressing becomes saturated with blood: hold pressure on your wound site for 10 minutes. If the bleeding does not stop, reapply pressure and call our department. A small spot of blood is common. Call 911 for severe bleeding. If we have removed a drain: please call if the drainage does not decrease over 2 days, or if you notice an increase in drainage. Any other concerns or questions you may have IF YOU HAVE ANY QUESTIONS OR CONCERNS OR IF YOU HAVE DEVELOPED ANY OF THE SYMPTOMS ABOVE, PLEASE CALL THE INTERVENTIONAL RADIOLOGY CLINIC AT [phone], OPTION 2 TO REACH THE NURSE TRIAGE LINE. THERE WILL BE ASSISTANCE AVAILABLE 24 HOURS A DAY. IF YOU CALL AFTER HOURS YOU WILL BE CONNECTED WITHAN ON-CALL PHYSICIAN BY PRESSING 1. documented in this encounter Medications at Time [...] Abnormal gait and legally blind daily 07/13/2017 ecisgtkk-twjzqhyip-pqbrec thasone (MAXITROL) 3.5mg/mL-10,000 unit/mL-0.1 % ophthalmic suspension 01/19/2023 nitroglycerin (NITROSTAT) 0.4 mg SL tabletIndications:NSTEMI (non-ST elevated myocardial infarction) ([facility]) Place 1 Tablet under the tongue every [...] 60 g 3 08/28/2023 vit A,C & Q-assdgz-hxyrpkrj (OCUVITE) 300 mcg-200 mg-27 mg-2 mg tablet Take 1 tab by mouth daily 30 Tablet 11 10/16/2023 documented as of this encounter Discharge Disposition Disposition Code Departure Means Destination Home or Self Care documented in this encounter Progress Notes * Chetan Geiger PA-C - 03/25/2024 1030 EDT Interventional Radiology CC: Pt presents to IR for abscess drain study S: I have no pain O: Right lower quadrant drain has been explanted by patient 4 days ago. A: No tube, no drain study. P: Contacted [facility] with results. Chetan Geiger PA-C * Jane Biggs RN - 03/25/2024 1030 EDT Procedure: abscess tube check Pt comes to IR 26 from WR at 1045. Name, , allergies, meds, labs, consent reviewed. Pt A+Ox3. Denies pain/general illness. Pt in WC with [facility]ERTILIZER from [facility] and rehab. I spoke to Heidy, a nurse at the facility via phone. She reports that pt pulled out RLQ tube and presented to the ED. Prior to it being pulled out there was no drainage and pt was having tube flushed daily with 10 ml of saline. Pt positioned in supine on table with safety straps applied. Wound assessed by myself, the RN. Skinpink and healing. No s/s of infection or skin breakdown. Time out agreed upon by all parties present. Track assessed by Chetan Geiger PA-C. Wound covered with gauze and adhesive dressing. CDI. Pt to go home with wound covered and to monitor for s/s of infection. Instructions given to Heidy over the phone. Verbalized understanding. Pt taken to the lobby via WC in stable condition. Left with rehab [facility]UN FERTIL[employer]ER. Grateful for care. documented in this encounter Plan of Treatment Upcoming Encounters Date Type Department Care Team (Late st Contact Info) Description 06/11/2024 12:45 EDT Office Visit [facility] Ophthalmology - [place] [address] [place], [place] [phone] Santiago Anthony MD [address] [place] [address], [address] [place] [address] 07/15/2024 10:45 EDT Office Visit [facility] [address] [place], [place] [id number] Gianfranco Flowers MD [address] [facility] [address] [place] [phone] documented as of this encounter Procedures Procedure Name Priority Date/Time Associated Diagnosis Comments IR ABSCESS TUBE CHECK Routine 03/25/2024 11:15 EDT Abscess documented in this encounter Results * IR ABSCESS TUBE CHECK (03/25/2024 11:15 EDT) Narrative 03/25/2024 11:21 EDT This is a non-reportable exam. Jhonathan Esquivel MD IMG IR ORDERABLES documented in this encounter Visit Diagnoses Diagnosis Abscess Cellulitis and abscess of unspecified site documented in this encounter Care Teams Powerbuilder Relationship Specialty Start Date End Date Nivia Tinsley MD [address] [place] [phone] PCP - General Family Medicine - Primary Care 08/27/19 Zheng Tapia MD [address] [place] [address] [address] [place] [address] Internal Medicine - Primary Care 09/01/19 Shazia Burks MD [address] [place] [address] Neurology 09/01/19 Tony Baron, FRANCK [address] [place] [phone] [employer] 09/01/19 Keira Paniagua MD [address] [place] [address] [address] [place] [address] Cardiovascular Disease 09/06/20 Siva Perkins MD [address] [place] [phone] Neurology 09/06/20 Ladonna Candelario Hand Buffing Wheel Former 01/23/24 documented as of this encounter
--- OUTSIDE RECORDS SUMMARY | 2024-04-29 18:11 | XMS_ITS | Clinical Summary ---
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 - sneezing Silicone Other (See Comments) 01/16/2020 Simvastatin 04/04/2013 Per patient, abdominal and muscle pain. Medications Medication Sig Dispensed Refills Start Date End Date Status medical supply, miscellaneous ([employer] ACCESSORY MISC) with seat, basket under the seat and breaks as directed dx: Abnormal gait and legally blind daily 07/13/2017 Active nitroglycerin (NITROSTAT) 0.4 mg SL tabletIndications:NS LORI (non-ST elevated myocardial infarction) (HCC-CMS) Place 1 Tablet under the tongue every 5 minutes as needed for Chest Pain. 30 Tablet 03/14/2022 Active hypromellose (ISOPTO TEARS) 0.5 % ophthalmic solution Place 1 Drop into both eyes 3 times daily. Active cholecalciferol, Vitamin D3, 25 mcg (1,000 unit) tablet Take 1 Tablet by mouth daily. 04/28/2022 Active wfnjqidu-ammoqhcrl-f examethasone (MAXITROL) 3.5mg/mL-10,000 unit/mL-0.1 % ophthalmic suspension 01/19/2023 Active aspirin chewable 81 mg tablet CHEW AND SWALLOW 1 TABLET BY MOUTH ONCE DAILY 30 Tablet 11 08/01/2023 Active triamcinolone (KENALOG) 0.1 % cream Apply topically to affected area 2 times daily. For up to 2 weeks to rash on legs and neck. Do not apply to face, armpit or groin. 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 90 Tablet 1 08/31/2023 Active levothyroxine (SYNTHROID) 100 mcg tabletIndications:Ot her specified hypothyroidism Take 1 Tablet by mouth daily. 30 Tablet 11 10/09/2023 Active carvedilol (COREG) 3.125 mg tablet Take 1 Tablet by mouth 2 times daily with breakfast and dinner. 180 Tablet 3 10/11/2023 Active vit A,C & F-ualbsp-zqmwmuqc (OCUVITE) 300 mcg-200 mg-27 mg-2 mg tablet Take 1 tab by mouth daily 30 Tablet 10/16/2023 Active losartan (COZAAR) 100 mg tabletIndications:Es sential hypertension 1 tab(s) orally once a day 30 Tablet 11 11/06/2023 Active atorvastatin (LIPITOR) 40 mg tablet Take 1 Tablet by mouth at bedtime. 30 Tablet 11/14/2023 Active ibuprofen (MOTRIN) 400 mg tabletIndications:Pr imary osteoarthritis of both hips Take 1 Tablet by mouth 2 times daily as needed for Pain. 180 Tablet 4 11/22/2023 Active cholecalciferol (VITAMIN D3) 1,250 mcg (50,000 unit) capsuleIndications:V itamin D deficiency Take 1 Capsule by mouth once a week. 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 90 Tablet 1 12/14/2023 Active acetaminophen (TYLENOL) 325 mg tablet Take 2 Tablets by mouth every 4 hours as needed for Pain. 01/11/2024 Active amoxicillin-clavulan ate (AUGMENTIN) 875-125 mg per tablet Take 1 Tablet by mouth every 12 hours. 01/11/2024 Active polyethylene glycol 3350 (MIRALAX) 17 gram packet Take 17 g by mouth daily. 01/11/2024 Active Active Problems Patient Care Coordination No te Formatting of this note migh t be different from the original. PT refused to pre-register over the phone. Kwan Maya 03/08/2023 14:47 12/19/21- [facility] MGP VERBAL ILEANA (PERM TO SPEAK) MELANI PEÑA (DAUGHTER). 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 ARMD dry and stable. >>OVERVIEW FOR ARMD (AGE RELATED MACULAR DEGENERATION) WRITTEN ON 12/08/2021 16:02 BY WANDA GRAHAM RN OS worse post treat and extend eylea course. 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 ([facility]) 03/04/2012 Resolved Problems Problem Noted Date Diagnosed Date Resolved Date 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 Cerebrovascular accident ([facility]) 09/02/2019 09/06/2020 Coronary artery disease invo lving [place] coronary artery of [place] heart without angina pectoris 09/02/2019 09/06/2020 Cerebral cavernous malformation 03/20/2011 09/06/2020 Encounters Date Type Department Care Team Description 04/21/2024 Patient Outreach [facility] Family [address] [address] Ladonna Candelario 03/25/2024 9:56 EDT - 03/25/2024 23:59 EDT Hospital Encounter [facility] Interventional Radiology Unit [address] [place] [phone] Chetan Geiger PA-C Behairy, Moataz, MD Abscess Discharge Disposition: Home or Self Care 03/18/2024 9:24 EDT - 03/18/2024 23:59 EDT Hospital Encounter [facility] Interventional Radiology Unit [address] [place] [address] Chetan Geiger PA-C Majdalany, Bill, MD Appendicular abscess (Primary Dx); Abscess Discharge Disposition: Home or Self Care 03/12/2024 Telephone [facility] Interventional Radiology - [address] [place] [address], [place] [phone] Katiuska Jorgensen, ANA Follow-up 03/10/2024 Telephone [facility] Integrative Family [address] [id number] Ladonna Candelario Coordination Of Care 03/10/2024 Patient Outreach [address] [phone] Ladonna Candelario 03/03/2024 9:05 EDT - 03/03/2024 23:59 EDT Hospital Encounter [facility] Interventional Radiology Unit [address] [place] [phone] Jhonathan Esquivel MD Miller, Jason Intra-abdominal abscess ([facility]) (Primary Dx) Discharge Disposition: Home or Self Care 02/15/2024 Telephone [facility] Interventional Radiology Unit [address] [place] [address] [phone] Bianca Cervantes, ANA Coordination Of Care 02/14/2024 9:13 EDT - 02/14/2024 23:59 EDT Hospital Encounter [facility] Interventional Radiology Unit [address] [place] [address] [phone] Mat Meehan MD Appendicular abscess (Primary Dx) Discharge Disposition: Home or Self Care 02/11/2024 Patient Outreach [facility] Integr[facility] Family Medicine [address] [phone] Ladonna Candelario 02/11/2024 Telephone [facility] Family [address] [phone] Cucumber Adithya Appointment Related 02/04/2024 Telephone [facility] Family [address] [place] [address] Wanda Graham RN Orders (Non Pre-visit) 01/31/2024 8:01 EDT - 01/31/2024 23:59 EDT Hospital Encounter [facility] Interventional Radiology Unit [address] [place] [phone] Chetan Geiger, JACKIE Meehan, Mat Carlson MD Appendicular abscess (Primary Dx) Discharge Disposition: Home or Self Care from Last 3 Months Immunizations Name Administration Dates Next Due Covid-19 mRNA Vaccine (PFIZE R COVID-19) PF 0.3 ml IM (12 yrs+) 02/13/2022,07/25/2021,12/27/2020,11/10 Covid-19 mRNA-LNP Va ccine (MODERNA COVID-19) PF 0.5 mL IM (12 yrs+) 08/30/2023 Influenza Vaccine High Dose (FLUZONE HIGH DOSE) PF 0.7 ml IM (65 yrs+) 07/21/2022,07/14/2021,08/02/2020,08/12,07/13/2017 Influenza Vaccine Pediatric Quad (AFLURIA PEDIATRIC) PF 0.25 ml IM (6-35 mos) 07/10/2016 Influenza Vaccine Quad High Dose (FLUZONE HIGH DOSE) PF 0.7 ml IM (65 yrs+) 07/26/2023 Pneumococcal Conjugate Vacci ne 13-Valent (PCV13) (PREVNAR-13) 0.5 mL IM (6 wks+) 06/01/2017 Pneumococcal Polysaccharide (PPSV23) Vaccine (PNEUMOVAX-23) =>2YO SQ/IM 03/06/2016 Tdap Vaccine =>7YO IM 09/03/2017 Surgical History Surgery Date Site/Laterality Comments COLONOSCOPY 01/29/2007 - 02/28/2007 moderate diffuse diverticuli discussed with Dr. Tapia and declines further testing CORONARY ANGIOPLASTY WITH STENT PLACEMENT 11/01/2021 - 11/28/2021 LAD PCI. 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 malformation 03/20/2011 Hyperlipidemia Hypertension Thyroid disease Family History Medical History Relation Comments Brain Aneurysm Brother 1 Early Brother 1 Arthritis-Osteo Brother 2 Diabetes Brother 2 Heart Surgery Brother 2 Hypertension Brother 2 Albinism Brother 3 Alcohol Abuse Brother 3 Blindness Brother 3 Diabetes Brother 3 Heart Surgery Brother 3 No Known Daughter Unknown Father at 94y/o Unknown Maternal Grandfather Stomach Cancer Maternal Grandmother Early Mother committed suicid e at 46y/o Mental Illness Mother Suicide Mother Unknown Paternal Grandfather Unknown Paternal Grandmother Arthritis-Osteo Sister 1 Heart Surgery Sister 1 Hypertension Sister 1 Lung Cancer Sister 1 Breast Cancer Sister 2 Cancer Sister 2 metastatic Cataract Sister 2 Lung Cancer Sister 3 Hypertension Son Obesity Son Relation Status Comments Brother 1 Brother 2 Brother 3 Alive Daughter Alive Father Maternal Grandfather Maternal Grandmother Mother Paternal Grandfather Paternal Grandmother Sister 1 Sister 2 Alive Sister 3 Son Alive Social History Tobacco Use Types Packs/Day Years Used Date Smoking Tobacco: Never Smokeless Tobacco: Never Tobacco Cessation:Counseling Given: Not Answered Alcohol Use Standard Drinks/Week Comments Yes 0 (1 standard drink = 0.6 oz pur e alcohol) sips here and there [facility] Utilities Answer Date Recorded In the past 12 months has e electric, gas, oil, or water company [...] the money to buy more. Never true 04/29/20 24 Within the past 12 months, t [...] place to sleep or slept in a skilled nursing (including now)? No 01/28/2024 Interpersonal Safety Answer [...] 10:23 EDT Sexual Orientation Not on file Obstetrics History Last Filed Vital Signs Vital Sign Reading Time Taken Comments Blood Pressure 141/85 01/11/2024 1122 EDT Pulse 94 01/11/2024 0332 EDT Temperature 36.5 ??C (97.7 ??F) 01/11/2024 1122 EDT Respiratory Rate 17 01/11/2024 1122 EDT Oxygen Saturation 90% 01/11/2024 1122 EDT Inhaled Oxygen Concentration - - Weight 63.5 kg (140 lb) 01/10/2024 1312 EDT Height 167.6 cm (5' 6) 01/10/2024 1312 EDT Body Mass Index 22.6 01/10/2024 1312 EDT Plan of Treatment Upcoming Encounters Date Type Department Care Team (Late st Contact Info) Description 06/11/2024 12:45 EDT Office Visit [facility] Ophthalmology - [place] [address] [place], [place] [phone] Santiago Anthony MD [address] [facility] [address] [place] [address] 07/15/2024 10:45 EDT Office Visit [facility] Cardiology Clinic [address] [place] [address] Gianfranco Flowers MD [address] [facility] [address] [place] [address] Health Maintenance Due Date Last Done Comments Shingles Immunization (1 of 2) 1988 RSV Immunization ( o r 60+ Years) (1 - 1-dose 60+ series) 1998 COVID-19 Vaccine (2022-2 4 season) 2023 08/30/2023, 02/13/2022, 07/25/2021, Additional history exists Depression Screening 02/01/2024 01/31/2023, 12/26/2021, 12/20/2020 Foot Exam 02/01/2024 01/31/2023, 05/0 11/2022, 12/26/2021, Additional history exists Hemoglobin A1C (Ha1C) 05/22/2024 11/22/2023 , 07/16/2023, 08/03/2022, Additional history exists Influenza Immunization (Adul t) (#1) 2024 07/26/2023, 07/21/2022, 07/14/2021, Additional history exists Lipid Profile Screening (Cholesterol) 07/16/2024 07/16/2023, 11/12/2021, 08/02/2020, Additional history exists Fall Risk Screening 07/26/2024 07/26/2023, 01/31/2023, 12/26/2021, Additional history exists Eye Exam 12/25/2024 12/26/2023, 11/0 05/2023, 06/27/2023, Additional history exists Social Determinants Of Healt h (SDOH) 01/27/2025 01/28/2024, 12/26/2021 Preventive Care Visit 01/31/2025 01/31/2023 , 12/26/2021, 12/20/2020, Additional history exists Tetanus (Adult) Immunization 09/03/2027 09/03/2017 Pneumococcal Immunization (65+) Completed 7, 03/06/2016 Pertussis (Adult) Immunization Completed 09/03/2017 Osteoporosis Screening Completed 10/12/2017, 2014 Advance Directive Completed 05/12/2020 Microalbumin/Creatinine Ratio Discontinued 07/19/2023 Medical Devices Implanted 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 Shelf Expiration Date Model / Serial / Lot Stent Coronary Drug Eluting Ss Rx 3.5x26mm Resolute [place] [id number] - [id number] Implanted:Qty : 1 on 11/16/2021 by Molly Palm MD at [facility] Drug Eluting Stent Left: Heart [employer] [id number] 04/01/2024 [id number] / / [id number] Procedures Procedure Name Priority Date/Time Associated Diagnosis Comments IR ABSCESS TUBE CHECK Routine 03/25/2024 11:15 EDT Abscess IR CHANGE PERCUTANEOUS CATHETER - SPECIFY TYPE Routine 03/18/2024 11:05 EDT Abscess IR ABSCESS TUBE CHECK Routine 03/03/2024 10:00 EDT IR ABSCESS TUBE CHECK Routine 02/14/2024 9:55 EDT IR ABSCESS TUBE CHECK Routine 01/31/2024 9:23 EDT HEMOGLOBIN A1C Routine 11/22/2023 11:34 EST Prediabetes URINE [id number] E RATIO (ACR) Routine 07/19/2023 13:25 EDT Encounter for annual wellness exam in Medicare patient Encounter for lipid screening for cardiovascular disease Diabetes mellitus type 2, noninsulin dependent ([facility]) Dyslipidemia LIPID PROFILE (INCLUDES CHOLESTEROL, TRIGLYCERIDES, HDL, LDL) Routine 07/16/2023 8:48 EDT Encounter for annual wellness exam in Medicare patient Encounter for lipid screening for cardiovascular disease DXA BONE DENSITY 10/12/2017 13:2 2 EST from Last 3 Months or Most Recently Relevant to Health Maintenance Results * IR ABSCESS TUBE CHECK (03/25/2024 11:15 EDT) Narrative 03/25/2024 11:21 EDT This is a non-reportable exam. Jhonathan Esquivel MD IMG IR ORDERABLES * IR CHANGE PERCUTANEOUS CATHETER - SPECIFY TYPE (03/18/2024 11:05 EDT) Anatomical Region Laterality Modality N/A X-Ray Angiograph y 03/18/2024 17:0 3 EDT Impressions 03/18/2024 17:03 EDT Repositioned, and down-sized right lower quadrant abscess drain. Chetan GUEVARA, PAClairC, RT- (R), (CV) Interventional Radiology The procedure was performed by Chetan Geiger, Physician Audograph Operator in interventional radiology. The procedure was performed under the direct supervision of the attending physician, Dr. Duran. I have personally reviewed the images and the above interpretation and agree with the findings. [id number] Narrative 03/18/2024 17:03 EDT IR CHANGE PERCUTANEOUS [...] output to be minimal. ??The existing 8 palestinian pigtail drain was then exchanged for a 5 palestinian Yueh pigtail which was positioned in the tissue tract. ??A FlexGrip device was used to fix the new tube in place. ??A sterile dressing was applied. ??The patient tolerated the procedure well and without complication. ??The patient will return in 1 week for follow up imaging in IR for possible drain removal. Fluoroscopic time: 1.5 minutes. Contrast: 12cc Omnipaque. Resulting Agency Comment [id number] Procedure Note Shola Duran MD - 03/18/2024 [...] drain output to be minimal.The existing 8 palestinian pigtail drain was then exchanged for a 5 palestinian Yuehpigtail which was positioned in the tissue [...] down-sized right lower quadrant abscess drain. Chetan Geiger MPAS, PA-C, RT- (R), (CV) Interventional Radiology The procedure was performed by Chetan Geiger, Physician Audograph Operator ininterventional radiology. The procedure was performed under the directsupervision of the attending physician, Dr. Duran. I have personally reviewed the images and the above interpretation andagree with the findings. [id number] Jhonathan Esquivel MD [facility] IR ORDERABLES * IR ABSCESS TUBE CHECK (03/03/2024 10:00 EDT) Anatomical Region Laterality Modality N/A X-Ray Angiograph y 03/03/2024 10:2 8 EDT Impressions 03/03/2024 10:28 EDT Abscess tube check demonstrating no residual fluid cavity with prompt opacification of peristalsing bowel loops. Tube maintained in place and patient/caregiver instructed to cease all flushing. Follow-up tube check with possible retraction and downsizing to track in 10-14 days. Findings discussed with Dr. Hazel. [id number] Narrative 03/03/2024 10:28 EDT IR ABSCESS TUBE CHECK 03/03/2024 9:26 AM Comparisons: Abscess drain placement 01/10/2024. Prior tube check, most recently 02/14/2024. Patient: CONCETTA SULLIVAN Attending physician(s): Dr. Jhonathan Esquivel Fellow physician(s): None Resident physician(s): None Advanced practice provider(s): None Preprocedure diagnosis: History of appendiceal abscess Postprocedure diagnosis: Same Indication: Routine abscess tube check Procedure Summary: -Contrast injection via right lower quadrant pigtail drainage catheter Anesthesia: None. Refer to nursing documentation for details. Additional Medications: None Access: Existing Hemostasis: N/A Narrative: The patient was positioned supine on the angiographic table. Precontrast imaging of the indwelling pigtail drainage catheter demonstrated no kink or disruption. 20 mL of water-soluble contrast was instilled via the indwelling pigtail drainage catheter, demonstrating no residual fluid cavity with prompt opacification peristalsing bowel loops. The drainage catheter was maintained in position. The patient tolerated the procedure well. There were no immediate complications. Additional Findings: None Estimated blood loss (mL): Trace Contrast Contrast agent: Omnipaque 300 Contrast volume (mL): 20 Radiation Dose Fluoroscopy time (minutes): 0.8 Reference air kerma (mGy): 6.01 Kerma area product (Gy-cm2): 1.275 Resulting Agency Comment [id number] Procedure Note Jhonathan Esquivel MD - 03/03/2024 IR ABSCESS TUBE CHECK 03/03/2024 9:26 AM Comparisons: Abscess drain placement 01/10/2024. Prior tube check, most recently02/14/2024. Patient: CONCETTA SULLIVAN Attending physician(s): Dr. Jhonathan Esquivel Fellow physician(s): None Resident physician(s): None Advanced practice provider(s): None Preprocedure diagnosis: History of appendiceal abscess Postprocedure diagnosis: Same Indication: Routine abscess tube check Procedure Summary: -Contrast injection via right lower quadrant pigtail drainage catheter Anesthesia: None. Refer to nursing documentation for details. Additional Medications: None Access: Existing Hemostasis: N/A Narrative: The patient was positioned supine on the angiographic table. Precontrastimaging of the indwelling pigtail drainage catheter demonstrated no kinkor disruption. 20 mL of water-soluble contrast was instilled via theindwelling pigtail drainage catheter, demonstrating no residual fluidcavity with prompt opacification peristalsing bowel loops. The drainagecatheter was maintained in position. The patient tolerated the procedurewell. There were no immediate complications. Additional Findings: None Estimated blood loss (mL): Trace Contrast Contrast agent: Omnipaque 300 Contrast volume (mL): 20 Radiation Dose Fluoroscopy time (minutes): 0.8 Reference air kerma (mGy): 6.01 Kerma area product (Gy-cm2): 1.275 IMPRESSION Abscess tube check demonstrating no residual fluid cavity with promptopacification of peristalsing bowel loops. Tube maintained in place andpatient/caregiver instructed to cease all flushing. Follow-up tube checkwith possible retraction and downsizing to track in 10-[address]. [address] Hazel. [id number] Mat Meehan MD IMG IR ORDER GONZALEZ * IR ABSCESS TUBE CHECK (02/14/2024 9:55 EDT) Anatomical Region Laterality Modality N/A X-Ray Angiograph y 02/16/2024 12:2 8 EDT Impressions 02/16/2024 12:28 EDT 1. No significant residual abscess cavity, however fistulous connection to bowel. If there is persistent fistulous connection when the subcutaneous track matures, consideration could be made to withdrawing the abscess drain slightly. The patient will return in 2 weeks time for repeat tube check. [id number] Narrative 02/16/2024 12:28 EDT Abscess tube check HISTORY: Right lower quadrant abscess. Previous drain placement. TECHNIQUE/FINDINGS: The patient was positioned supine on the fluoroscopy table. Under fluoroscopic guidance, contrast was injected through the abscess drain, yielding an abscessogram. This revealed no significant abscess cavity, however brisk opacification of a loop of bowel. The drain was returned to bag drainage. Resulting Agency Comment [id number] Procedure Note Scrruss, Mat Carlson MD - 02/16/2024 Abscess tube check HISTORY: Right lower quadrant abscess. Previous drain placement. TECHNIQUE/FINDINGS: The patient was positioned supine on the fluoroscopytable. Under fluoroscopic guidance, contrast was injected through theabscess drain, yielding an abscessogram. This revealed no significantabscess cavity, however brisk opacification of a loop of bowel. The drainwas returned to bag drainage. IMPRESSION 1. No significant residual abscess cavity, however fistulous connection tobowel. If there is persistent fistulous connection when the subcutaneoustrack matures, consideration could be made to withdrawing the abscessdrain slightly. The patient will return in 2 weeks time for repeat tubecheck. [id number] Chetan Geiger PA-C IMG IR ORDERABLES * IR ABSCESS TUBE CHECK (01/31/2024 9:23 EDT) Anatomical Region Laterality Modality N/A X-Ray Angiograph y 01/31/2024 17:3 5 EDT Impressions 01/31/2024 17:35 EDT 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 Chetan GUEVARA PA-C, RT- (R), (CV) Interventional Radiology I have personally reviewed the images and the above interpretation and agree with the findings. [id number] Narrative 01/31/2024 17:35 EDT IR ABSCESS TUBE CHECK ??01/31/2024 8:40 AM Signs and Symptoms/Comments: Abscess follow/up; Narrative: ??The patient was brought to the interventional suite and placed in the supine position. ??A timeout was performed according to standard protocol including confirmation of patient identity and planned procedure. ??Initial fluoroscopic spot images of the abscess drain showed no kink or interruption involving the tubing. ??An abscessogram was performed, showing resolution of the previous appendicular abscess, with fistulous communication to the bowel. ??The abscess cavity has accentually resolved. ??Patient is a poor historian, and there is approximately 15 cc of thin bilious drainage in the Daniel Orourke bulb. ??The pigtail drain was left in place. ??As the retention sutures were quite painful and erythematous, they were removed. ??A flushing side port, and sterile dressing was applied. ??The patient tolerated the procedure well and without complication. Fluoroscopic time: 0.6 minutes. Contrast: 8 cc Omnipaque. Resulting Agency Comment [id number] Procedure Note Scriver, Mat Carlson MD - 01/31/2024 IR ABSCESS TUBE CHECK 01/31/2024 8:40 AM Signs and Symptoms/Comments: Abscess follow/up; Narrative: The patient was brought to the interventional suite and placed in thesupine position. A timeout was performed according to standard protocolincluding confirmation of patient identity and planned procedure. Initial fluoroscopic spot images of the abscess drain showed no kink orinterruption involving the tubing. An abscessogram was performed, showingresolution of the previous appendicular abscess, with fistulouscommunication to the bowel. The abscess cavity has accentually resolved.Patient is a poor historian, and there is approximately 15 cc of thinbilious drainage in the Daniel Orourke bulb. The pigtail drain was left inplace. As the retention sutures were quite painful and erythematous, theywere removed. A flushing side port, and sterile dressing was applied.The patient tolerated the procedure well and without complication. Fluoroscopic time: 0.6 minutes. Contrast: 8 cc Omnipaque. 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 Chetan Geiger MPAS, PAPatricia, RT- (R), (CV) Interventional Radiology I have personally reviewed the images and the above interpretation andagree with the findings. [id number] Justino Alonso MD IMG IR ORDERABLES * (ABNORMAL) HEMOGLOBIN A1C (11/22/2023 11:34 EST) Hemoglobin A1c 6.4(H) <5.7 % 11/22/2023 21:12 [facility] Comment: Glycemic Status References: Normal: ??<5.7% Pre-Diabetes: ??5.7% - 6.4% Diagnostic of Diabetes: ??> or = 6.5% (if confirmed) Est Avg Glucose 137 mg/dL 21:12 [facility] Comment:The eAG represents t he A1c result expressed as average glucose in mg/dL. Blood VENOUS BLOOD / Unknown Venipuncture / Unknown 11/22/2023 11:34 EST 11/22/2023 11:34 EST Nivia Tinsley MD CHEMISTRY & BLOOD G ORDERABLES Performing Organization Address [facility] de Phone Number [facility] [address] [place] [address] * (ABNORMAL) URINE ETRZAJV-OB-NTVNLYHERS RATIO (ACR) (07/19/2023 13:25 EDT) Albumin, Urine 9.3 See Note mg/dL 2022 14:13 EDT [facility] Comment: NOTE: Reference range not established Creatinine, Urine 62.5 See Note mg/dL 07/19/2023 14:13 EDT [facility] Comment: NOTE: Reference range not established Lab Urine Albumin to Creatinine Ratio 149(H) <30 ??g/mg Creatinine 07/19/2023 14:13 EDT [facility] Comment: Urine Albumin/Creatinine Ratio: Normal: <30 ug/mg Creatinine Moderately increased albuminuria: 30-300 ug/mg Creatinine Severely increased albuminuria: >300 ug/mg Creatinine Urine URINE / Unknown Urine Collect / Unknown 07/19/2023 13:25 EDT 07/19/2023 13:25 EDT Nivia Tinsley MD CHEMISTRY & BLOOD G ORDERABLES Performing Organization Address [facility] de Phone Number [facility] [address] [place] [address] * (ABNORMAL) LIPID PROFILE (INCLUDES CHOLESTEROL, TRIGLYCERIDES, HDL, LDL) (07/16/2023 8:48 EDT) Cholesterol 207(H) <200 mg/dL 07/16/2023 10:16 EDT [facility] Comment:Note that therapeuti c goals will differ between patients based on cardiac risk factors and current medical therapy. HDL 32(L) >=50 mg/dl 07/16/2023 10:16 EDT [facility] Comment:Note that therapeuti c goals will differ between patients based on cardiac risk factors and current medical therapy. LDL, Calculated 10:16 [facility] Comment: Note that therapeutic goals will differ between patients based on cardiac risk factors and current medical therapy. Calculated LDL invalid, triglycerides >400 mg/dL Direct LDL measurement added by reflex. Triglyceride 644(H) <=150 mg/dL 07/16/2023 10:16 T [facility] Comment:Note that therapeuti c goals will differ between patients based on cardiac risk factors and current medical therapy. Chol/HDL Ratio 6.5 See Note 07/16/2023 10:16 [facility] Comment: NOTE: Desirable Ratio = <4.1 Patient At Risk Ratio = >5.0(Males) ?>6.0(Females) Non HDL Cholesterol 175(H) <160 mg/dL 07/16/2023 10:16 EDT [facility] Comment:Note that therapeuti c goals will differ between patients based on cardiac risk factors and current medical therapy. Blood VENOUS BLOOD / Unknown Venipuncture / Unknown 07/16/2023 8:48 EDT 07/16/2023 9:26 EDT Nivia Tinsley MD CHEMISTRY & BLOOD G ORDERABLES [facility] [address] [place] [address] * XR DEXA BONE DENSITY (10/12/2017 13:22 EST) Anatomical Region Laterality Modality Wrist, Hip, L-spine Other 10/12/2017 13:2 2 EST Narrative 10/15/2017 9:19 EST ? EXAM: RADIOLOGY/DXA SCAN/BONE DENSITY ? EX. D/ (1322) ? CLINICAL INFORMATION: ? Z78.0 POSTMENOPAUSAL ? Indication: postmenopausal; screening for osteoporosis; ? Accession number: [id number] ? Clinical Information Provided by Patient: ? Has used the following medications: HRT (i.e. estrogen/hormone ? therapy), Vitamin D ? Patient maximum height was 65.5 ? Drinks caffeinated beverages ? Onset of menses at age 10 ? Number of children 2 ? Bone Density: Exam date 10/12/2017 ? Region ?BMD ? . ? (g/cm2) ?? T-score ?? Z-score ?? Classification ? AP Spine(L1-L4) ?1.182 ? 1.2 ?3.9 ? Normal ? Femoral Neck(Left) ? 0.799 ?-0.4 ?1.8 ? Normal ? Total Hip(Left) ?1.005 ? 0.5 ?2.5 ? Normal ? World Health Organization criteria for BMD impression classify ? patients as Normal (T-score at or above -1.0), Osteopenia (T-score ? between -1.0 and -2.5), or Osteoporosis (T-score at or below -2.5). ? 10-year Fracture Risk: ? FRAX not reported because: ? All T-scores for Spine Total, Hip Total, Femoral Neck at or above ? -1.0 ? Previous Exams: ? REGION ?EXAM ?AGE ?? BMD ?T-score ??BMD ?BMD ? . ? DATE ? (G/CM2) ? Change ? Change ? . ?vs Baseline vs Prev ? AP Spine (L1-L4) 10/12/2017 ?? 77 ?1.182 ?1.2 ?0.157 ?- 0.020 ? . ?(15.3%)# (-1.7%) ? . ?06/23/2015 ?? 75 ?1.202 ?1.4 ?0.177 ? 0.132 ? . ?(17.3%)# (12.4%)# ? . ?10/12/2008 ?? 68 ?1.070 ?0.2 ?0.045 ? 0.045 ? . ?(4.4%)# ?? (4.4%)# ? . ?12/09/2004 ?? 64 ?1.025 ?? -0.2 ? Total Hip(Left) ??10/12/2017 ?? 77 ?1.005 ?0.5 ? -0.045 ? 0.020 ? . ? (-4.3%)# ?? (2.0%) ? . ?06/23/2015 ?? 75 ?0.985 ?0.4 ? -0.065 ?-0.038 ? . ? (-6.2%)# ??(-3.7%)# ? . ?10/12/2008 ?? 68 ?1.023 ?0.7 ? -0.027 ?-0.027 ? . ? (-2.6%)# ??(-2.6%)# ? . ?12/09/2004 ?? 64 ?1.050 ?0.9 ? *Denotes significance at 95% confidence level, LSC for AP Spine = ? PAGE 1 ? Signed Report ? (CONTINUED) ? 0.022 g/cm2, ??LSC for Total Hip = 0.027 g/cm2 ? # Denotes dissimilar scan types or analysis methods ? Impression: The patient has normal bone mass. No significant bone loss ? was observed. ? Discussion: BONE DENSITY IS ABOVE THE MINIMUM DESIRABLE LEVEL AT ALL ? SKELETAL SITES TESTED. ? This patient's bone mineral density is above the minimum desirable ? level (T-score -1.0 or better) at all sites measured. The patient ? should follow a healthful lifestyle (good nutrition with adequate ? calcium and vitamin D, and appropriate weight-bearing exercise). ? Follow-Up: Consider repeating this study in 5 years or sooner if there ? is some new clinical indication. ? Reported by:SON/leonora ??on 10/12/2017 11:05:00 AM. ?Reported By: Jameson Calderon MD ? CC: ? Transcribed Date/Time: 10/15/2017 (19) ? Certified Surgical Technologist: OFELIA ? Printed Date/Time: 03/19/2019 (0833) ? PAGE 2 ? Signed Report ? Procedure Note Jameson Calderon MD - 08/06/2019 EXAM: RADIOLOGY/DXA SCAN/BONE DENSITY EX. D/ (1322) CLINICAL INFORMATION: Z78.0 POSTMENOPAUSAL Indication: postmenopausal; screening for osteoporosis; Accession number: [id number] Clinical Information Provided by Patient: Has used the following medications: HRT (i.e. estrogen/hormone therapy), Vitamin D Patient maximum height was 65.5 Drinks caffeinated beverages Onset of menses at age 10 Number of children 2 Bone Density: Exam date 10/12/2017 Region BMD . (g/cm2) T-score Z-scoreClassification AP Spine(L1-L4) 1.182 1.2 3.9 Normal Femoral Neck(Left) 0.799 -0.4 1.8 Normal Total Hip(Left) 1.005 0.5 2.5 Normal World Health Organization criteria for BMD impression classify patients as Normal (T-score at or above -1.0), Osteopenia (T-score between -1.0 and -2.5), or Osteoporosis (T-score at or below -2.5). 10-year Fracture Risk: FRAX not reported because: All T-scores for Spine Total, Hip Total, Femoral Neck at or above -1.0 Previous Exams: REGION EXAM AGE BMD T-score BMD BMD . DATE (G/CM2) ChangeChange . vs Baseline vsPrev AP Spine (L1-L4) 10/12/2017 77 1.182 1.2 0.157-0.020 . (15.3%)#(-1.7%) . 06/23/2015 75 1.202 1.4 0.177 0.132 . (17.3%)#(12.4%)# . 10/12/2008 68 1.070 0.2 0.045 0.045 . (4.4%)#(4.4%)# . 12/09/2004 64 1.025 -0.2 Total Hip(Left) 10/12/2017 77 1.005 0.5 -0.045 0.020 . (-4.3%)#(2.0%) . 06/23/2015 75 0.985 0.4 -0.065 -0.038 . (-6.2%)#(-3.7%)# . 10/12/2008 68 1.023 0.7 -0.027 -0.027 . (-2.6%)#(-2.6%)# . 12/09/2004 64 1.050 0.9 *Denotes significance at 95% confidence level, LSC for AP Spine = PAGE 1 Signed Report (CONTINUED) 0.022 g/cm2, LSC for Total Hip = 0.027 g/cm2 # Denotes dissimilar scan types or analysis methods Impression: The patient has normal bone mass. No significant boneloss was observed. Discussion: BONE DENSITY IS ABOVE THE MINIMUM DESIRABLE LEVEL ATALL SKELETAL SITES TESTED. This patient's bone mineral density is above the minimum desirable level (T-score -1.0 or better) at all sites measured. The patient should follow a healthful lifestyle (good nutrition with adequate calcium and vitamin D, and appropriate weight-bearing exercise). Follow-Up: Consider repeating this study in 5 years or sooner ifthere is some new clinical indication. Reported by:SON/leonora on 10/12/2017 11:05:00 AM. 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 Affirmed Current DNR/COLS T Order * Full Code Date Activated Date Inactivated Comments 01/02/2024 15:32 01/03/2024 14:32 Question Answer Comments When the patient has NO PULSE: Full Code / CPR Who Made the Decision? Default/Not Discussed * Limitation of Treatment Date Activated Date Inactivated Comments 02/21/2022 12:17 02/22/2022 13:32 Question Answer Comments When the patient has NO PULSE: DNR When the patient HAS A PULSE and is in respiratory distress/failure: Trial Period Trial period of (choose one or both): intubation Who Made the Decision? Patient * Full Code Date Activated Date Inactivated Comments 11/16/2021 7:45 11/17/2021 19:04 48 hours for pro cedure Question Answer Comments When the patient has NO PULSE: Full Code / CPR Who Made the Decision? Patient * Limitation of Treatment Date Activated Date Inactivated Comments 11/15/2021 19:57 11/16/2021 7:45 Question Answer Comments When the patient has NO PULSE: DNR When the patient HAS A PULSE and is in respiratory distress/failure: Trial Period Trial period of (choose one or both): intubation Who Made the Decision? Patient Care Teams Aircraft Avionics Technician Relationship Specialty Start Date End Date Nivia Tinsley MD [address] [place] [address] [phone] PCP - General Family Medicine - Primary Care 08/27/19 Zheng Tapia MD [address] [place] [address] [address] [place] [address] Internal Medicine - Primary Care 09/01/19 Shazia Burks MD [address] [place] [address]67 Neurology 09/01/19 Tony Baron OD [address] [place] [phone] Sales Receptionist 09/01/19 Keira Paniagua MD [address] [place] [address] [address] [place] [phone] Cardiovascular Disease 09/06/20 Siva Perkins MD [address] [place] [id number] Neurology 09/06/20 Ladonna Candelario Shot Polisher 01/23/24
--- OUTSIDE RECORDS SUMMARY | 2024-04-29 18:11 | XMS_ITS | Referral Summary ---
Author Organization [facility] Address [address] [place] [address] Care Team Providers Care Instrument Technologist Name Role Phone Nivia Tinsley MD Primary Care Provider Zheng Tapia MD Unavailable Shazia Burks MD Unavailable [phone] Tony Baron OD Unavailable [phone] Keira Paniagua MD Unavailable [phone] Siva Perkins MD Unavailable [phone] Ladonna Candelario Unavailable Unavailable Encounters Date Type Department Care Team Description 04/21/2024 Patient Outreach [facility] [address] [address] Ladonna Candelario 03/25/2024 9:56 EDT - 03/25/2024 23:59 EDT Hospital Encounter [facility] Interventional Radiology Unit [address] [place] [address] Chetan Geiger, Jhonathan Zaman MD Abscess Discharge Disposition: Home or Self Care 03/18/2024 9:24 EDT - 03/18/2024 23:59 EDT Hospital Encounter [facility]iology Unit [address] [place] [address] Chetan Geiger, Shola Guerra MD Appendicular abscess (Primary Dx); Abscess Discharge Disposition: Home or Self Care 03/12/[address] [facility] Interventional Radiology - Main [address] [address] Katiuska Jorgensen, ANA Follow-up 03/10/2024 Telephone [facility] [address] [address] Ladonna Candelario Coordination Of Care 03/10/2024 Patient Outreach [address] [phone] Ladonna Candelario 03/03/2024 9:05 EDT - 03/03/2024 23:59 EDT Hospital Encounter [facility] Radiology Unit [address] [place] [address] Jhonathan Esquivel MD Miller, Jason Intra-abdominal abscess ([facility]) (Primary Dx) Discharge Disposition: Home or Self Care 02/15/[address] [facility] Radiology Unit [address] [place] [address] Bianca Cervantes, ANA Coordination Of Care 02/14/2024 9:13 EDT - 02/14/2024 23:59 EDT Hospital Encounter [facility]iology Unit [address] [place] [address] Mat Meehan MD Appendicular abscess (Primary Dx) Discharge Disposition: Home or Self Care 02/11/2024 Patient Outreach [facility] [address] [phone] Ladonna Candelario 02/11/2024 Telephone [facility] [address] [address]39[address] Over[place]casey Haji Appointment Related 02/04/2024 Telephone [facility] [address] [address] Wanda Graham RN Orders (Non Pre-visit) 01/31/2024 8:01 EDT - 01/31/2024 23:59 EDT Hospital Encounter [facility] Radiology Unit [address] [place] [address] Chetan Geiger, JACKIE Meehan, Mat Carlson MD Appendicular abscess (Primary Dx) Discharge Disposition: Home or Self Care from Last 3 Months Allergies Active Allergy Reactions Criticality Noted Date [...] SL tabletIndications:NS LORI (non-ST elevated myocardial infarction) ([facility]) Place 1 Tablet under the tongue every 5 minutes as needed for Chest Pain. 30 Tablet 03/14/2022 Active hypromellose (ISOPTO TEARS) 0.5 % ophthalmic solution Place 1 Drop into both eyes 3 times daily. Active cholecalciferol, Vitamin D3, 25 mcg (1,000 unit) tablet Take 1 Tablet by mouth daily. 04/28/2022 Active lufssbcv-wxbtifxmm-u examethasone (MAXITROL) 3.5mg/mL-10,000 unit/mL-0.1 % ophthalmic suspension [...] 2 TIMES DAILY, Twice a week, Informant: Ecommerce Manager, Reported on 01/02/2024 cyanocobalamin (VITAMIN B-12) 1,000 [...] Tablet 3 10/11/2023 Active vit A,C & F-kmvvdx-tesdnubf (OCUVITE) 300 mcg-200 mg-27 mg-2 mg tablet Take 1 tab by mouth daily 30 Tablet 11 10/16/2023 Active losartan (COZAAR) 100 mg tabletIndications:Es sential hypertension 1 tab(s) orally once a day 30 Tablet 11 11/06/2023 Active atorvastatin (LIPITOR) 40 mg tablet Take 1 Tablet by mouth at bedtime. 30 Tablet 11 11/14/2023 Active ibuprofen (MOTRIN) 400 mg tabletIndications:Pr imary osteoarthritis of both hips Take 1 Tablet by mouth 2 times daily as needed for Pain. 180 Tablet 4 11/22/2023 Active cholecalciferol (VITAMIN D3) 1,250 mcg (50,000 unit) capsuleIndications:V itamin D deficiency Take 1 Capsule by mouth once a week. For 12 weeks 12 Capsule 11/22/2023 Active Additional Information Patient not taking.Informant: Ecommerce Manager, Reported on 12/26/2023 ezetimibe (ZETIA) 10 mg [...] the phone. Kwan Maya 03/08/2023 14:47 12/19/21- [facility] MGP VERBAL ILEANA (PERM TO SPEAK) MELANI PEÑA (DAUGHTER). 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 ARMD dry and stable. >>OVERVIEW FOR ARMD (AGE RELATED MACULAR DEGENERATION) WRITTEN ON 12/08/2021 16:02 BY WANDA GRAHAM RN OS worse post treat and extend eylea course. 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 ([facility]) 03/04/2012 Resolved Problems Problem Noted Date Diagnosed Date Resolved Date 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 Cerebrovascular accident ([facility]) 09/02/2019 09/06/2020 Coronary artery disease invo lving [place] coronary artery of [place] heart without angina pectoris 09/02/2019 09/06/2020 Cerebral cavernous malformation 03/20/2011 09/06/2020 Immunizations Name Administration Dates Next Due Covid-19 [...] SQ/IM 03/06/2016 Tdap Vaccine =>7YO IM 09/03/2017 Social History Tobacco Use Types Packs/Day Years Used Date Smoking Tobacco: Never Smokeless Tobacco: Never Tobacco Cessation:Counseling Given: Not Answered Alcohol Use Standard Drinks/Week Comments Yes 0 (1 standard drink = 0.6 oz pur e alcohol) sips here and there [facility] Utilities Answer Date Recorded In the past 12 months has e [employer], gas, oil, or water [employer] threatened to shut off services in your [...] place to sleep or slept in a fpc (including now)? No 01/28/2024 Interpersonal Safety Answer Date Record ed How often does anyone, inclliseth doshi family, hit, punch or physically hurt [...] 10:23 EDT Sexual Orientation Not on file Last Filed Vital Signs Vital Sign Reading [...] Body Mass Index 22.6 01/10/2024 1312 EDT Functional Status Functional Status Response Date of [...] (5 years old or older) No 01/02/2024 Plan of Treatment Upcoming Encounters Date Type Department Care Team (Late st Contact Info) Description 06/11/2024 12:45 EDT Office Visit [facility] Ophthalmology - [address] [phone] Santiago Anthony MD [address] [place] [address], [facility] [address] [place] [address] 07/15/2024 10:45 EDT Office Visit [facility] [address] [place], [place] [phone] Gianfranco Flowers MD [address] [place] [address] [place] [phone] Medical Devices Implanted Type Area Title I Director Device Identifier Shelf Expiration Date Model / Serial / Lot Stent Coronary Drug Eluting Ss Rx 3.5x26mm Resolute Linneus [id number] - [id number] Implanted:Qty : 1 on 11/16/2021 by Molly Palm MD at [facility] Drug Eluting Stent Left: Heart [employer] [id number] 04/01/2024 [id number] / / [id number] Procedures Procedure Name Priority Date/Time Associated Diagnosis Comments IR ABSCESS TUBE CHECK Routine 03/25/2024 11:15 EDT Abscess IR CHANGE PERCUTANEOUS CATHETER - SPECIFY TYPE Routine 03/18/2024 11:05 EDT Abscess IR ABSCESS TUBE CHECK Routine 03/03/2024 10:00 EDT IR ABSCESS TUBE CHECK Routine 02/14/2024 9:55 EDT IR ABSCESS TUBE CHECK Routine 01/31/2024 9:23 EDT HEMOGLOBIN A1C Routine 11/22/2023 11:34 EST Prediabetes URINE [id number] E RATIO (ACR) Routine 07/19/2023 13:25 EDT Encounter for annual wellness exam in Medicare patient Encounter for lipid screening for cardiovascular disease Diabetes mellitus type 2, noninsulin dependent ([facility]) Dyslipidemia LIPID PROFILE (INCLUDES CHOLESTEROL, TRIGLYCERIDES, HDL, [...] is a non-reportable exam. Jhonathan Esquivel MD IM IR ORDERABLES * IR CHANGE PERCUTANEOUS CATHETER - SPECIFY TYPE (03/18/2024 11:05 EDT) Anatomical Region Laterality Modality N/A X-Ray Angiograph y 03/18/2024 17:0 3 EDT Impressions 03/18/2024 17:03 EDT Repositioned, and down-sized right lower quadrant abscess drain. Chetan Geiger [facility], PA-C, RT- (R), (CV) Interventional Radiology The procedure was performed by Chetan Geiger, Physician Locker Room Supervisor in interventional radiology. The procedure was performed under the direct supervision of the attending physician, Dr. Duran. I have personally reviewed the images and the above interpretation and agree with the findings. [id number] Narrative 03/18/2024 17:03 EDT IR CHANGE PERCUTANEOUS [...] output to be minimal. ??The existing 8 central african pigtail drain was then exchanged for a 5 central african Yueh pigtail which was positioned in the tissue tract. ??A FlexGrip device was used to fix the new tube in place. ??A sterile dressing was applied. ??The patient tolerated the procedure well and without complication. ??The patient will return in 1 week for follow up imaging in IR for possible drain removal. Fluoroscopic time: 1.5 minutes. Contrast: 12cc Omnipaque. Resulting Agency Comment [id number] Procedure Note Shola Duran MD - 03/18/2024 [...] drain output to be minimal.The existing 8 central african pigtail drain was then exchanged for a 5 central african Yuehpigtail which was positioned in the tissue [...] lower quadrant abscess drain. Chetan Geiger MPAS, PAClairC, RT- (R), (CV) Interventional Radiology The procedure was performed by Chetan Geiger, Physician Locker Room Supervisor ininterventional radiology. The procedure was performed under the directsupervision of the attending physician, Dr. Duran. I have personally reviewed the images and the above interpretation andagree with the findings. [id number] Jhonathan Esquivel MD [facility] IR ORDERABLES * IR ABSCESS TUBE CHECK [...] 10-14 days. Findings discussed with Dr. Hazel. [id number] Narrative 03/03/2024 10:28 EDT IR ABSCESS TUBE [...] area product (Gy-cm2): 1.275 Resulting Agency Comment [id number] Procedure Note Jhonathan Esquivel MD - 03/03/2024 [...] in 10-[address] Hazel. [id number] Mat Meehan MD IMG IR ORDER GONZALEZ [...] 2 weeks time for repeat tube check. [id number] Narrative 02/16/2024 12:28 EDT Abscess tube check HISTORY: Right lower quadrant abscess. Previous drain placement. TECHNIQUE/FINDINGS: The patient was positioned supine on the fluoroscopy table. Under fluoroscopic guidance, contrast was injected through the abscess drain, yielding an abscessogram. This revealed no significant abscess cavity, however brisk opacification of a loop of bowel. The drain was returned to bag drainage. Resulting Agency Comment [id number] Procedure Note Mat Meehan MD - 02/16/2024 Abscess tube check HISTORY: [...] in 2 weeks time for repeat tubecheck. [id number] Chetan Geiger PA-C IMG IR ORDERABLES * IR ABSCESS TUBE CHECK (01/31/2024 9:23 EDT) Anatomical Region Laterality Modality N/A X-Ray Angiograph y 01/31/2024 17:3 5 EDT Impressions 01/31/2024 17:35 EDT 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 Chetan GUEVARA, JACKIE, RT- (R), (CV) Interventional Radiology I have personally reviewed the images and the above interpretation and agree with the findings. [id number] Narrative 01/31/2024 17:35 EDT IR ABSCESS TUBE [...] Contrast: 8 cc Omnipaque. Resulting Agency Comment [id number] Procedure Note Scriver, Mat Carlson MD - [...] with continued fistulous communication tothe bowel. Chetan GUEVARA, JACKIE, RT- (R), (CV) Interventional Radiology I have personally reviewed the images and the above interpretation andagree with the findings. [id number] Justino Alonso MD IMG IR ORDERABLES * (ABNORMAL) HEMOGLOBIN A1C (11/22/2023 11:34 EST) Hemoglobin A1c 6.4(H) <5.7 % 11/22/2023 21:12 [facility] Comment: Glycemic Status References: Normal: ??<5.7% Pre-Diabetes: ??5.7% - 6.4% Diagnostic of Diabetes: ??> or = 6.5% (if confirmed) Est Avg Glucose 137 mg/dL 21:12 [facility] Comment:The eAG represents t he A1c result expressed as average glucose in mg/dL. Blood VENOUS BLOOD / Unknown Venipuncture / Unknown 11/22/2023 11:34 EST 11/22/2023 11:34 EST Nivia Tinsley MD CHEMISTRY & BLOOD G ORDERABLES Performing Organization Address [facility] de Phone Number [facility] [address] [place] [address] * (ABNORMAL) URINE [id number] RATIO (ACR) (07/19/2023 13:25 EDT) Albumin, Urine 9.3 See Note mg/dL 2022 14:13 EDT [facility] Comment: NOTE: Reference range not established Creatinine, Urine 62.5 See Note mg/dL 07/19/2023 14:13 EDT [facility] Comment: NOTE: Reference range not established Lab Urine Albumin to Creatinine Ratio 149(H) <30 ??g/mg Creatinine 07/19/2023 14:13 EDT [facility] Comment: Urine Albumin/Creatinine Ratio: Normal: <30 ug/mg Creatinine Moderately increased albuminuria: 30-300 ug/mg Creatinine Severely increased albuminuria: >300 ug/mg Creatinine Urine URINE / Unknown Urine Collect / Unknown 07/19/2023 13:25 EDT 07/19/2023 13:25 EDT Nivia Tinsley MD CHEMISTRY & BLOOD G ORDERABLES Performing Organization Address [facility] de Phone Number [facility] [address] [place] [address] * (ABNORMAL) LIPID PROFILE (INCLUDES CHOLESTEROL, TRIGLYCERIDES, HDL, LDL) (07/16/2023 8:48 EDT) Cholesterol 207(H) <200 mg/dL 07/16/2023 10:16 EDT [facility] Comment:Note that therapeuti c goals will differ between patients based on cardiac risk factors and current medical therapy. HDL 32(L) >=50 mg/dl 07/16/2023 10:16 EDT [facility] Comment:Note that therapeuti c goals will differ between patients based on cardiac risk factors and current medical therapy. LDL, Calculated 10:16 [facility] Comment: Note that therapeutic goals will differ between patients based on cardiac risk factors and current medical therapy. Calculated LDL invalid, triglycerides >400 mg/dL Direct LDL measurement added by reflex. Triglyceride 644(H) <=150 mg/dL 07/16/2023 10:16 [facility] Comment:Note that therapeuti c goals will differ between patients based on cardiac risk factors and current medical therapy. Chol/HDL Ratio 6.5 See Note 07/16/2023 10:16 [facility] Comment: NOTE: Desirable Ratio = <4.1 Patient At Risk Ratio = >5.0(Males) ?>6.0(Females) Non HDL Cholesterol 175(H) <160 mg/dL 07/16/2023 10:16 [facility] Comment:Note that therapeuti c goals will differ between patients based on cardiac risk factors and current medical therapy. Blood VENOUS BLOOD / Unknown Venipuncture / Unknown 07/16/2023 8:48 EDT 07/16/2023 9:26 EDT Nivia Tinsley MD CHEMISTRY & BLOOD G ORDERABLES Performing Organization Address City/State/[facility] Co de Phone Number [facility] [address] [place] [address] * XR DEXA BONE DENSITY (10/12/2017 13:22 EST) Anatomical Region Laterality Modality Wrist, Hip, L-spine Other 10/12/2017 13:2 2 EST Narrative 10/15/2017 9:19 EST ? EXAM: RADIOLOGY/DXA SCAN/BONE DENSITY ? EX. D/ (1322) ? CLINICAL INFORMATION: ? Z78.0 POSTMENOPAUSAL ? Indication: postmenopausal; screening for osteoporosis; ? Accession number: [id number] ? Clinical Information Provided by Patient: ? [...] MD ? CC: ? Transcribed Date/Time: 10/15/2017 (0919) ? [employer] Associate: OFELIA ? Printed Date/Time: 03/19/2019 (0833) ? PAGE 2 ? Signed Report ? Procedure Note Jameson Calderon MD - 08/06/2019 EXAM: RADIOLOGY/DXA SCAN/BONE DENSITY EX. D/ (1322) CLINICAL INFORMATION: Z78.0 POSTMENOPAUSAL Indication: postmenopausal; screening for osteoporosis; Accession number: [id number] Clinical Information Provided by Patient: Has used [...] Calderon MD CC: Transcribed Date/Time: 10/15/2017 (09) [employer] Associate: OFELIA Printed Date/Time: 03/19/2019 (0833) PAGE 2 Signed Report Nivia Tinsley MD IMG DEXA ORDERABLES from Last 3 Months or Most Recently Relevant to Health Maintenance Advance Directives For more information, please contact: [phone] Documents on File Type Date Recorded Patient Patient Accounts Clerk Expl anation COLST/MOLST 05/12/2020 DNR/COLST 0 * [...] Who Made the Decision? Patient Care Teams Instrument Technologist Relationship Specialty Start Date End Date Nivia Tinsley MD [address] [place] [address] [phone] PCP - General Family Medicine - Primary Care 08/27/19 Zheng Tapia MD [address] [place] [address] [address] [place] [address] Internal Medicine - Primary Care 09/01/19 Shazia Bursk MD [address] [place] [address] Neurology 09/01/19 Tony Baron OD [address] [place] [phone] Package Dye Stand Loader 09/01/19 Keira Paniagua MD [address] [place] [address] [address] [place] [address] Cardiovascular Disease 09/06/20 Siva Perkins MD [address] [facility] [place] [place] [phone] Neurology 09/06/20 Ladonna Candelario Vending Machine Servicer 01/23/24
--- OUTSIDE RECORDS SUMMARY | 2024-04-29 18:12 | XMS_ITS | Encounter Summary ---
Author Organization [facility] Address [address] [place] [address] Care Team Providers Care Supply Room Clerk Name Role Phone Nivia Tinsley MD Primary Care Provider [phone] Zheng Tapia MD Unavailable Shazia Burks MD Unavailable [phone] Tony Baron OD Unavailable [phone] Keira Paniagua MD Unavailable [phone] Siva Perkins MD Unavailable Encounter Details Date Type Department Care Team (Late st Contact Info) Description 01/21/2024 Patient Outreach [facility] Integrative Family Medicine [address] [address] Chaparro Salas Social History Tobacco Use Types Packs/Day Years Used Date Smoking Tobacco: Never Smokeless Tobacco: Never Alcohol Use Standard Drinks/Week Comments Yes 0 (1 standard drink = 0.6 oz pur e alcohol) sips here and there AUDIT-C Answer Date Recorded Frequency of Alcohol Consumption Monthly or less 09/09/2019 Average Number of Drinks 1 or 2 019 Frequency of Binge Drinking Less than monthly Overall Financial Resource Strain (CARDIA) Answe r Date Recorded How hard is it for you to pa y for the very basics like food, housing, medical care, and heating? Not hard at all 01/31/2023 PHQ-2 Answer Date Recorded PHQ-2 SUBTOTAL 0 01/31/2023 Hunger Vital Sign Answer Date Recorded Within the past 12 months, y ou worried that your food would run out before you got the money to buy more. Never true 02/01/20 23 Within the past 12 months, t he food you bought just didn't last and you didn't have money to get more. Never true 01/31/2023 PRAPARE - Transportation Answer Date Re corded In the past 12 months, has l ack of transportation kept you from medical appointments or from getting medications? No 12/2023 In the past 12 months, has l ack of transportation kept you from meetings, work, or from getting things needed for daily living? No 01/03/2024 Housing Stability Vital Sign Answer Kenney e Recorded In the last 12 months, was t here a time when you were not able to pay the mortgage or rent on time? No 01/03/2024 In the last 12 months, how many places have you lived? 1 01/03/2024 In the last 12 months, was t here a time when you did not have a steady place to sleep or slept in a [place] health care facility (including now)? No 01/03/2024 Interpersonal Safety Answer Date Record ed How [...] encounter Progress Notes * Chaparro Salas - 01/21/2024 1243 EDT [facility] Oxidation Engineer Care Coordination Oxidation Engineer spoke with Concetta's son, Lane, on 01/21/24 in order to coordinate care. Concetta is currently receiving rehab at [facility] following an appendix abscess. Lane shared thatat baseline his mom is alert and oriented times three. She gets around in a wheelchair, but is ableto transfer. She does have a caregiver, Monica, from [facility] that spends four hours a day with her during the week. Concetta receives respite care on the weekends. Lane shared that prior to Concetta's hospitalization, Monica had recommended increasing Concetta's caregiver hours. Lane shared that they have a care plan meeting scheduled for Sunday. Although his mom's cognition appears to have cleared since being admitted to the hospital, she is requiring additional assistance. Lane is struggling with whether his mom will be able to return home or require a higher level of care. CM informed Lane that physical therapy and nursing should be present at Sunday's meeting, and should be able to provide a recommendation. Lane inquired if his mom could be transferred to a closer facility if custodial level of care is still needed. JAYDE informed Lane that he can request that their social media senior associate look into finding a closer facility for his mom. Lane would appreciate following up with this senior medical writer after Sunday's meeting. He would like his sisterto be present for the call. We have scheduled a three way call for 01/28/24, at 11AM. Lane will reach out to his sister to confirm availability. PLAN: CM will plan to reach back out to Lane on 01/28/24. CHAPARRO SALAS 01/21/2024 12:43 documented in this encounter Plan of Treatment Upcoming Encounters Date Type Department Care Team (Late st Contact Info) Description 06/11/2024 12:45 EDT Office Visit [facility] Ophthalmology - [place] [address] [place] [address] Santiago Anthony MD [address] [place] [address] 5 [place] [address] 07/15/2024 10:45 EDT Office Visit [facility] [address] [place], [place] [id number] Gianfranco Flowers MD [address] [facility] [address] [place] [address] documented as of this encounter Visit Diagnoses Not on filedocumented in this encounter Care Teams Supply Room Clerk Relationship Specialty Start Date End Date Nivia Tinsley MD [address] [place] [address] PCP - General Family Medicine - Primary Care 08/27/19 Zheng Tapia MD [address] [place] [address] [address] [place] [address] Internal Medicine - Primary Care 09/01/19 Shazia Burks MD [address] [place] [address] Neurology 09/01/19 Tony Baron OD [address] [place] [address] Rigger Chief 09/01/19 Keira Paniagua MD [address] [place] [address] Cardiovascular Disease 09/06/20 Siva Perkins MD [address] [facility] [place] [place] [address] Neurology 09/06/20 documented as of this encounter
--- OUTSIDE RECORDS SUMMARY | 2024-04-29 18:12 | XMS_ITS | Encounter Summary ---
Author Organization [facility] Address [address] [place] [address] Care Team Providers Care Certified Meeting Professional Name Role Phone Nivia Tinsley MD Primary Care Provider Zheng Tapia MD Unavailable Shazia Burks MD Unavailable [phone] Tony Baron OD Unavailable [phone] Keira Paniagua MD Unavailable Siva Perkins MD Unavailable [phone] Ladonna Candelario Unavailable Unavailable Encounter Details Date Type Department Care Team (Late st Contact Info) Description 02/14/2024 9:13 EDT - 02/14/2024 23:59 EDT Hospital Encounter [facility] Interventional Radiology Unit [address] [place], [place] [phone] Mat Meehan MD [address] [facility], Level 1 [place] [address] Appendicular abscess (Primary Dx) Discharge Disposition: Home or Self Care Social History Tobacco Use Types Packs/Day Years Used Date Smoking Tobacco: Never Smokeless Tobacco: Never Alcohol Use Standard Drinks/Week Comments Yes 0 (1 standard drink = 0.6 oz pur e alcohol) sips here and there [facility] Utilities Answer Date Recorded In the past [...] place to sleep or slept in a senior care (including now)? No 01/28/2024 Interpersonal Safety Answer Date Record ed How often does anyone, kalani doshi family, hit, punch or physically hurt you? Never 12/26/2021 How often does anyone, inclliseth doshi family, insult, scream, curse or threaten [...] this encounter Discharge Instructions * Discharge Instructions* Jeffery Barry RN - 02/14/2024 9:44 EDT Images from the original note were not included. Interventional Radiology Discharge Instructions for Abscess Drainage Tube Care Tube Placed -Abscess drain Date - 02/14/2024 Procedure Site - Pelvis Provider - Mat Meehan MD Aftercare: Activity: Leave the hospital in a [...] before and after tube care. FLUSHING - You will be taught how to flush 5 cc sterile saline into the tube 3 times, weekly. If atthe time of discharge you are unable to perform this, your nurses will arrange for a VNA nurse to care for your tube. Flushing prevents bits of debris from closing off the holes in the tube and helpsto keep it open and working. KEEPING THE DRAIN(S) SECURE - To avoid [...] (You can purchase extra bags at the [facility], Main outpatient pharmacy in the [facility]). You should be discharged with a [...] into your bag. When to contact the [facility] (call visiting nurse first): 1. If the [...] have your tube checked or removed on 02/28. A provider will performa tube study by injecting dye into your tube while taking an xray to see if your abscess is smaller. Please bring a record of your daily output. This will help determine if your tube is ready to be removed. If your daily output amount is 20 ml or greater (not including the flush intake amount), please call to possible have your tube study changed to a later date. Most tubes are ready to come out when the output [...] Abnormal gait and legally blind daily 07/13/2017 ydsgwksx-murmfpjor-sgcmdc thasone (MAXITROL) 3.5mg/mL-10,000 unit/mL-0.1 % ophthalmic suspension 01/19/2023 nitroglycerin (NITROSTAT) 0.4 mg SL tabletIndications:NSTEMI (non-ST elevated myocardial infarction) ([facility]-CMS) Place 1 Tablet under the [...] 60 g 3 08/28/2023 vit A,C & F-xupsue-mcaeaorl (OCUVITE) 300 mcg-200 mg-27 mg-2 mg tablet Take 1 tab by mouth daily 30 Tablet 11 10/16/2023 documented as of this encounter Discharge Disposition Disposition Code Departure Means Destination Home or Self Care documented in this encounter Progress Notes * Jeffery Barry RN - 02/14/2024 0930 EDT Procedure: abscess tube check. Patient arrived from at 0928. Patient is alert and oriented x 4, able to follow commands with all extremities, able to make needs known. No complaints of pain. Patient's name and verified using armband and verbally. Patient's allergies, medications and lab results reviewed. Patient educated on procedure, patient verbalized understanding. Patient positioned on the imaging table in supine position, warm blankets offerd. Patients base line pain 0 Contrast infused through the tube under fluoro. Tube confirmed to be patent and in correct position. Tube redressed Dressing CDI Procedure completed by GMS. Procedure well tolerated by patient. No complaints of pain. Recommendations for tube care include: same as before. Follow up plan: 03/03 Discharge instructions reviewed with patient, no further questions at this time. Patient accompanied to the waiting area in stable condition. documented in this encounter Procedure Notes * Mat Meehan MD - 02/14/2024 7535 EDT INTERVENTIONAL RADIOLOGY BRIEF PROCEDURE NOTE Radiologist: Shefali Procedure(s) Performed: Abscess tube check Indication/Pre-procedure diagnosis: Abscess Post-procedure diagnosis: Same Condition: Stable Anesthesia: Approach: RLQ Medications: Contrast: 10 cc Fluoro time: 0.1 min EBL: None Specimens: None Findings: Fistulous connection to bowel. Drain left in place. A time-out was completed prior to procedure verifying correct patient, procedure, site, positioning, and special equipment if applicable. Complications: None Recommendations: Per orders. Please refer to final dictated report (Chart Review, Imaging tab in PRISM) for complete findings and recommendations. Rafa Meehan MD Interventional Radiologist Pager #[phone] documented in this encounter Plan of Treatment Upcoming Encounters Date Type Department Care Team (Late st Contact Info) Description 06/11/2024 12:45 EDT Office Visit [facility] Ophthalmology [address] [id number] Santiago Anthony MD [address] [place] [address], [facility] [address] [place] [address] 07/15/2024 10:45 EDT Office Visit [facility] Cardiology Clinic [address] [place], [place] [address] Gianfranco Flowers MD [address] [place], [place] [address] [address] [place] [phone] documented as of this encounter Procedures Procedure Name Priority Date/Time Associated Diagnosis Comments IR ABSCESS TUBE CHECK Routine 03/03/2024 10:00 EDT IR ABSCESS TUBE CHECK Routine 02/14/2024 9:55 EDT documented in this encounter Results * IR ABSCESS TUBE CHECK (03/03/2024 10:00 [...] 10-14 days. Findings discussed with Dr. Hazel. [id number] Narrative 03/03/2024 10:28 EDT IR ABSCESS TUBE [...] area product (Gy-cm2): 1.275 Resulting Agency Comment [id number] Procedure Note Jhonathan Esquivel MD - 03/03/2024 [...] in 10-[address] Hazel. [id number] Mat Meehan MD IMG IR ORDER GONZALEZ documented in this encounter Visit Diagnoses Diagnosis Appendicular abscess- Primary Acute appendicitis with peritoneal abscess Intra-abdominal abscess (HCC-CMS)- Primary Peritoneal abscess documented in this encounter Administered Medications Inactive Administered Medications - up to 3 most recent administrations Medication Order MAR Action Action Date Dose Rate Site iohexoL (OMNIPAQUE 300) injection 50 mL 50 mL, Tube, NOW X1, 1 dose, On Karrie 02/14/24 at 1015, Routine Given 02/14/2024 9:54 EDT 8 mL documented in this encounter Orders Medications Ordered That Anant ht Not Have Been Administered Count Last Ordered Date First Ordered Date iohexoL (OMNIPAQUE 300) injection 50 mL 1 0 02/14/2024 documented in this encounter Care Teams Certified Meeting Professional Relationship Specialty Start Date End Date Nivia Tinsley MD [address] [place] [address] PCP - General Family Medicine - Primary Care 08/27/19 Zheng Tapia MD [address] [place] [address] [address] [place] [address] Internal Medicine - Primary Care 09/01/19 Shazia Burks MD [address] [place] [address] Neurology 09/01/19 Tony Baron, FRANCK [address] [place] [address] Final Canoe Inspector 09/01/19 Keira Paniagua MD [address] [place] [address] [address] [place] [address] Cardiovascular Disease 09/06/20 Siva Perkins MD [address] [place] [address] Neurology 09/06/20 Ladonna Candelario Service Operations Manager 01/23/24 documented as of this encounter
--- OUTSIDE RECORDS SUMMARY | 2024-04-29 18:12 | XMS_ITS | Encounter Summary ---
Author Organization [facility] Address [address] [place] [address] Care Team Providers Care Air Bag Builder Name Role Phone Nivia Tinsley MD Primary Care Provider Zheng Tapia MD Unavailable Shazia Burks MD Unavailable [phone] Tony Baron OD Unavailable [phone] Keira Paniagua MD Unavailable [phone] Siva Perkins MD Unavailable [phone] Chaparro Salas Unavailable Unavailable Encounter Details Date Type Department Care Team (Late st Contact Info) Description 01/28/[address] [facility] [address] [address] Chaparro Salas Social History Tobacco Use Types Packs/Day Years Used Date Smoking Tobacco: Never Smokeless Tobacco: Never Alcohol Use Standard Drinks/Week Comments Yes 0 (1 standard drink = 0.6 oz pur e alcohol) sips here and there [facility] Utilities Answer Date Recorded In the [...] place to sleep or slept in a alf (including now)? No 01/28/2024 Interpersonal Safety Answer [...] encounter Progress Notes * Chaparro Salas - 01/28/2024 1110 EDT [facility] Care Management Assessment and Care Plan Referral Reason: To assist with long-term care planning. Pertinent medical and behavioral health issues: Acc/AHA stage C heart failure with preserved ejection fraction, Acute appendicitis, Albinism, Basilar artery stenosis/occlusion with infarction, Cerebral atherosclerosis, Chronic total occlusion of coronary artery, CVD, Diabetes Type 2, Exudative age-related macular degeneration of left eye, Generalized weakness, NSTEMI, Hyperlipidemia, and Hypertension Has the patient had an inpatient hospitalization or an ED visit within the last year: Yes If yes, what was the patient's primary diagnosis for their hospitalization or ED visit? 01/02/24 - Altered mental status, Dysuria and 08/21/23 - Episodic confusion, Acute cystitis with hematuria Patient Care Team: Nivia Tinsley MD as PCP - General (Family Medicine - Primary Care) Zheng Tapia MD (Internal Medicine - Primary Care) Shazia Burks MD (Neurology) Tony Baron OD (Distributed Energy Systems Consultant) Keira Paniagua MD (Cardiovascular Disease) Siva Perkins MD (Neurology) Chaparro Salas as Sheet Sewer Medications: Current Outpatient Medications: acetaminophen (TYLENOL) 325 mg tablet, Take 2 Tablets by mouth every 4 hours as needed for Pain., Disp: , Rfl: amoxicillin-clavulanate (AUGMENTIN) 875-125 mg per tablet, Take 1 Tablet by mouth every 12 hours., Disp: , Rfl: aspirin chewable 81 mg tablet, CHEW AND SWALLOW 1 TABLET BY MOUTH ONCE DAILY, Disp: 30 Tablet, Rfl:11 atorvastatin (LIPITOR) 40 mg tablet, Take 1 Tablet by mouth at bedtime., Disp: 30 Tablet, Rfl: 11 carvedilol (COREG) 3.125 mg tablet, Take 1 Tablet by mouth 2 times daily with breakfast and dinner., Disp: 180 Tablet, Rfl: 3 cholecalciferol (VITAMIN D3) 1,250 mcg (50,000 unit) capsule, Take 1 Capsule by mouth once a week. For 12 weeks (Patient not taking: Reported on 12/26/2023), Disp: 12 Capsule, Rfl: 0 cholecalciferol, Vitamin D3, 25 mcg (1,000 unit) tablet, Take 1 Tablet by mouth daily., Disp: , Rfl: cyanocobalamin (VITAMIN B-12) 1,000 mcg tablet, Take 1 Tablet by mouth daily., Disp: 90 Tablet, Rfl: 1 ezetimibe (ZETIA) 10 mg tablet, Take 1 Tablet by mouth daily., Disp: 90 Tablet, Rfl: 1 hypromellose (ISOPTO TEARS) 0.5 % ophthalmic solution, Place 1 Drop into both eyes 3 times daily., Disp: , Rfl: ibuprofen (MOTRIN) 400 mg tablet, Take 1 Tablet by mouth 2 times daily as needed for Pain., Disp: 180 Tablet, Rfl: 4 levothyroxine (SYNTHROID) 100 mcg tablet, Take 1 Tablet by mouth daily., Disp: 30 Tablet, Rfl: 11 losartan (COZAAR) 100 mg tablet, 1 tab(s) orally once a day, Disp: 30 Tablet, Rfl: 11 medical supply, miscellaneous ([employer] ACCESSORY MISC), with seat, basket under the seat and breaks as directed dx: Abnormal gait and legally blind daily, Disp: , Rfl: ynjjmdqo-lmhqznknm-jzpkyrkcqrtvw (MAXITROL) 3.5mg/mL-10,000 unit/mL-0.1 % ophthalmic suspension, , Disp: , Rfl: nitroglycerin (NITROSTAT) 0.4 mg SL tablet, Place 1 Tablet under the tongue every 5 minutes as needed for Chest Pain., Disp: 30 Tablet, Rfl: 0 polyethylene glycol 3350 (MIRALAX) 17 gram packet, Take 17 g by mouth daily., Disp: , Rfl: triamcinolone (KENALOG) 0.1 % cream, Apply topically to affected area 2 times daily. For up to 2 weeks to rash on legs and neck. Do not apply to face, armpit or groin. (Patient taking differently: Apply topically to affected area 2 times daily. Twice a week), Disp: 60 g, Rfl: 3 vit A,C & S-dbdwyr-ywclnjot (OCUVITE) 300 mcg-200 mg-27 mg-2 mg tablet, Take 1 tab by mouth daily, Disp: 30 Tablet, Rfl: 11 No current facility-administered medications for this visit. Facility-Administered Medications Ordered in Other Visits: [] aflibercept (EYLEA) intravitreal syringe 2 mg, 2 mg, intravitreal, , Santiago Anthony MD, 2 mg at 07/12/22 0830 CM reviewed medication list in the chart Living Arrangement: Cnocetta is currently receiving rehab at [facility]. Prior toher rehab stay, she was living in her own apartment in [place]. Social Supports: Family, friends, [facility] Coordinator (Monica Pierre), [facility] (4 hours a day), and Meals On Wheels Activities requiring assistance: dressing, food prep/shopping, grooming, taking medications, toileting, driving, bathing, and home maintenance - based on current needs at rehab. Current plan for assistance with ADLs: caregiver assists with ADLs Need for caregiver resources in order to meet patient's ADL needs: Caregiver requires training Hearing/Vision: blind Cognitive Function: No cognitive impairment identified Health literacy Assessment: patient is able to read/write, appropriate to their developmental age -patient is legally blind would need to read/write in braille. Social Determinants of Health: SDOH screen completed during visit: Yes Food Insecurity: No Food Insecurity (01/31/2023) Hunger Vital Sign Worried About Running Out of Food in the Last Year: Never true Ran Out of Food in the Last Year: Never true Financial Resource Strain: Low Risk (01/31/2023) Overall Financial Resource Strain (CARDIA) Difficulty of Paying Living Expenses: Not hard at all Housing Stability: Low Risk (01/03/2024) Housing Stability Vital Sign Unable to Pay for Housing in the Last Year: No Number of Places Lived in the Last Year: 1 Unstable Housing in the Last Year: No Transportation Needs: No Transportation Needs (01/03/2024) PRAPARE - Transportation Lack of Transportation (Medical): No Lack of Transportation (Non-Medical): No Utilities: Not on file Depression: Not at risk (01/31/2023) PHQ-2 PHQ-2 Score: 0 Social History Tobacco Use Smoking status: Never Smokeless tobacco: Never Substance Use Topics Alcohol use: Yes Comment: sips here and there Healthcare Insurance: Payer/Plan Subscr Sex Relation Sub. Ins. ID Effective Group Num 1. MEDICARE ACO * CONCETTA SULLIVAN 1940 Female Self [id number] [birth year] [address] 2. [facility]* CONCETTA SULLIVAN 1940 Female Self [id number] [birth year] [address] Any gaps or barriers with healthcare insurance coverage: No DME: wheelchair, grab bars, and shower chair DME vendor: Unclear Barriers to using technology: Concetta is legally blind, so she would need assistance setting up a tele health call. Preferred method of communication: Phone Call Cultural, spiritual or language factors affecting health: none identified Existing Community Resources: SASH, Meals On Wheels, and [facility] at Home Gaps in Resources Identified: Family is trying to navigate a safe discharge after rehab. They are looking into assisted living options and/or home with increased caregivers. Concetta will need to be able to transfer herself in order to return home. Advance Directive on File: Concetta Terrazas has a COLST Form on file. CM will address Advanced Directiveswchio [place] at a later date. Prioritized Patient Identified Goals: (needs to include one self-management goal) 1. To work with my treatment team to develop a safe discharge plan from rehab. Concetta will participate in PT and attend her care plan meetings as scheduled. 2. Concetta will work with her family to complete the application for [facility] over the next month. Assessment/Clinical Summary and Plan: (Address any positive screens, Barriers identified to meetinggoals and follow up plan for communication) Concetta is legally blind, so mobility and transfers have been difficult in a new facility. Concetta will trust her physical therapist to guide her with her transfers and strength building exercises. Concetta will work with her kids on long-term care planning. Due to Concetta's visual limitations, her kidswill help complete the assisted living applications. Patient's access to their plan of care: CM will mail them their plan of care CM will follow-up on 02/14/24. CHAPARRO SALAS 01/28/2024 11:11 documented in this encounter Plan of Treatment Upcoming Encounters Date Type Department Care Team (Late st Contact Info) Description 06/11/2024 12:45 EDT Office Visit [facility] Ophthalmology - [place] [address] [place] [address] Santiago Anthony MD 111 [facility], [facility] [address] [place] [address] 07/15/2024 10:45 EDT Office Visit [facility] Cardiology Clinic [address] [place] [address] Gianfranco Flowers MD 130 [facility] [place] [address] [place] [address] documented as of this encounter Visit Diagnoses Not on filedocumented in this encounter Care Teams Air Bag Builder Relationship Specialty Start Date End Date Nivia Tinsley MD [address] [place] [address] PCP - General Family Medicine - Primary Care 08/27/19 Zheng Tapia MD [address] [place] [address] [address] [place] [address] Internal Medicine - Primary Care 09/01/19 Shazia Burks MD [address] [place] [address] Neurology 09/01/19 Tony Baron OD [address] [place] [phone] Distributed Energy Systems Consultant 09/01/19 Keira Paniagua MD [address] [place] [address] Cardiovascular Disease 09/06/20 Siva Perkins MD [address] [place] [address] Neurology 09/06/20 Chaparro Salas Sheet Sewer 01/23/24 documented as of this encounter
--- OUTSIDE RECORDS SUMMARY | 2024-04-29 18:12 | XMS_ITS | Encounter Summary ---
Author Organization [facility] Address [address] [place] [address] Care Team Providers Care Waistline Joiner Name Role Phone Nivia Tinsley MD Primary Care Provider Zheng Tapia MD Unavailable Shazia Burks MD Unavailable [phone] Tony Baron OD Unavailable [phone] Keira Paniagua MD Unavailable [phone] Siva Perkins MD Unavailable [phone] Ladonna Candelario Unavailable Unavailable Reason for Visit * Reason Onset Date Comments Coordination Of Care 03/10/2024 Encounter Details Date Type Department Care Team (Late st Contact Info) Description 03/10/2024 Telephone [facility] Integrative Family Medicine [address] [address] Ladonna Candelario Coordination Of Care Social History Tobacco Use Types Packs/Day Years Used Date Smoking Tobacco: Never Smokeless Tobacco: Never Alcohol Use Standard Drinks/Week Comments Yes 0 (1 standard drink = 0.6 oz pur e alcohol) sips here and there [facility] Utilities Answer Date Recorded In the past [...] place to sleep or slept in a detention (including now)? No 01/28/2024 Interpersonal Safety Answer Date Record ed How often does anyone, inclu glenda family, hit, punch or physically hurt you? Never 12/26/2021 How often does anyone, inclu glenda family, insult, scream, curse or threaten to [...] No 01/02/2024 documented as of this encounter Miscellaneous Notes * Telephone Encounter - Fay Dotson RN - 03/13/2024 0807 EDT Noted * Telephone Encounter - Ladonna Candelario - 03/10/2024 1126 EDT I spoke with Concetta's kids, Lane and Melani, this morning. They have questions about the drain that was placed a couple months ago. I read the last IR abscess tube check note to them, and it seem to be moving in the right direction. I'm not clinical, and they had some questions that I could not speak to. Are you able to follow up with Melani? My sense is they want confirmation that everything is looking ok, an idea of what the next steps might be, and if the drain can be eventually pulled. documented in this encounter Plan of Treatment Upcoming Encounters Date Type Department Care Team (Late st Contact Info) Description 06/11/2024 12:45 EDT [facility] Visit [facility] Ophthalmology [address] [address] Santiago Anthony MD [address] [facility], [address] [place] [address] 07/15/2024 10:45 EDT Office Visit [facility] Cardiology Clinic [address] [place] [address] Gianfranco Flowers MD [address] [place] [address] [address] [place] [address] documented as of this encounter Visit Diagnoses Not on filedocumented in this encounter Care Teams Waistline Joiner Relationship Specialty Start Date End Date Nivia Tinsley MD [address] [place] [address] PCP - General Family Medicine - Primary Care 08/27/19 Zheng Tapia MD [address] [place] [address] Internal Medicine - Primary Care 09/01/19 Shazia Burks MD [address] [place] [address] Neurology 09/01/19 Tony Baron, FRANCK [address] [place] [address] Ballaster 09/01/19 Keira Paniagua MD 130 [facility] [address] [place] [address] Cardiovascular Disease 09/06/20 Siva Perkins MD [address] [place] [address] Neurology 09/06/20 Ladonna Candelario Director Hospice Operations 01/23/24 documented as of this encounter
--- OUTSIDE RECORDS SUMMARY | 2024-04-29 18:12 | XMS_ITS | Encounter Summary ---
Author Organization [facility] Address [address] [place] [address] Care Team Providers Care R&D Lab Technician Name Role Phone Nivia Tinsley MD Primary Care Provider [phone] Zheng Tapia MD Unavailable Shazia Burks MD Unavailable [phone] Tony Baron OD Unavailable [phone] Keira Paniagua MD Unavailable [phone] Siva Perkins MD Unavailable [phone] Ladonna Candelario Unavailable Unavailable Reason for Visit * Reason Onset Date Comments Orders (Non Pre-visit) 02/04/2024 Encounter Details Date Type Department Care Team (Late st Contact Info) Description 02/04/2024 Telephone [facility] Integrative Family Medicine [address] [address] Yaa Graham, RN Orders (Non Pre-visit) Social History Tobacco Use Types Packs/Day Years Used Date Smoking Tobacco: Never Smokeless Tobacco: Never Alcohol Use Standard Drinks/Week Comments Yes 0 (1 standard drink = 0.6 oz pur e alcohol) sips here and there [facility] Utilities Answer Date Recorded In the past 12 months has [employer] electric, gas, oil, or water company threatened [...] encounter Miscellaneous Notes * Telephone Encounter - Yaa Graham RN - 02/04/2024 8979 EDT Images from the original note were not included. Nivia Tinsley MD CARR, MEREDITH; P [facility] Nurse I assume you are talking about the: Apparent abnormal thickening of the endometrium. Apparent posterior submucosal fibroid or other mass lesion. Recommend further assessment to begin with ultrasound.If that this is the case, I will forward to my staff to see if she is interested in getting an trans vaginal ultrasound to evaluate. If she is, we will get that ordered. Previous Messages ----- Message ----- From: PAOLO KAPADIA Sent: 02/04/2024 9:13 EDT To: Nivia Tinsley MD; * Subject: Please review finding. Dear Dr Tinsley, Your patient had an imaging study in the Department of Radiology at the [facility] ([facility]) (Concetta Sullivan, CT ABD/PEL, 01/02/2024). A follow-up recommendation was made by the Radiologist and is now due. Please review the report and address the recommendation. Details of the re commendation are within the Impression section of the report. If you decline the recommendation, please let us know and provide a reason so that we may better understand our recommendations. We appreciate your help and timely response. If you have questions, you can respond to this message or contact our Radiology Quality Department at . Sincerely, Leonarda Avalos MD, FACR Diana Salamanca MBA RT (R) CT documented in this encounter Plan of Treatment Upcoming Encounters Date Type Department Care Team (Late st Contact Info) Description 06/11/2024 12:45 EDT Office Visit [facility] Ophthalmology - [place] [address] [place] [address] Santiago Anthony MD [address] [place] [address] 5 [place] [address] 07/15/2024 10:45 EDT Office Visit [facility] Cardiology Clinic [address] [place], [place] [phone] Gianfranco Flowers MD 130 [facility] [address] [place] [address] documented as of this encounter Visit Diagnoses Not on filedocumented in this encounter Care Teams R&D Lab Technician Relationship Specialty Start Date End Date Nivia Tinsley MD [address] [place] [address] PCP - General Family Medicine - Primary Care 08/27/19 Zheng Tapia MD [address] [place] [address] [address] [place] [address] Internal Medicine - Primary Care 09/01/19 Shazia Burks MD [address] [place], [place] [address] Neurology 09/01/19 Tony Baron OD [address] [place] [address] Developmental Writing Instructor 09/01/19 Keira Paniagua MD [address] [place] [address] Cardiovascular Disease 09/06/20 Siva Perkins MD [address] [facility] [place] [address] Neurology 09/06/20 Ladonna Candelario Sap Solution Manager Consultant 01/23/24 documented as of this encounter
--- OUTSIDE RECORDS SUMMARY | 2024-04-29 18:12 | XMS_ITS | Encounter Summary ---
Author Organization [facility] Address [address] [place] [address] Care Team Providers Care Eyeglass Frames Inspector Name Role Phone Nivia Tinsley MD Primary Care Provider Zheng Tapia MD Unavailable Shazia Burks MD Unavailable [phone] Tony Baron OD Unavailable [phone] Keira Paniagua MD Unavailable Siva Perkins MD Unavailable [phone] Ladonna Candelario Unavailable Unavailable Encounter Details Date Type Department Care Team (Late st Contact Info) Description 03/03/2024 9:05 EDT - 03/03/2024 23:59 EDT Hospital Encounter [facility] Interventional Radiology Unit [address] [place], [place] [phone] Jhonathan Esquivel MD 111 [facility], Level 1 [place] [address] Pelon Avina Intra-abdominal abscess (HCC-CMS) (Primary Dx) Discharge Disposition: Home or Self Care Social History Tobacco Use Types Packs/Day Years Used Date Smoking Tobacco: Never Smokeless Tobacco: Never Alcohol Use Standard Drinks/Week Comments Yes 0 (1 standard drink = 0.6 oz pur e alcohol) sips here and there [facility] Utilities Answer Date Recorded In the [...] place to sleep or slept in a jail (including now)? No 01/28/2024 Interpersonal Safety Answer [...] * Discharge Instructions* Kannan Pelaez RN - 03/03/2024 9:54 EDT Images from the original note were not included. Interventional Radiology Discharge Instructions for Abscess Drainage Tube Care Tube Placed -Abscess drain Date - 03/03/2024 Procedure Site - Abdomen, Pelvis Provider - Jhonathan Esquivel MD Aftercare: Activity: Leave the hospital in [...] (You can purchase extra bags at the [facility], Main outpatient pharmacy in the [facility]). You should be discharged with a spare [...] into your bag. When to contact the [facility] (call visiting nurse first): 1. If [...] have your tube checked or removed on 03/17/2024 at 2 PM. A providerwill perform a tube study by injecting dye into [...] Tablet 11 10/09/2023 losartan (COZAAR) 100 mg tabletIndications:Houstonenti al hypertension 1 tab(s) orally once a day 30 Tablet 11 11/06/2023 medical supply, miscellaneous ([employer] M[employer]) with seat, basket under the seat and breaks as directed dx: Abnormal gait and legally blind daily 07/13/2017 jejyjero-gyaupmqiq-efuiqu thasone (MAXITROL) 3.5mg/mL-10,000 unit/mL-0.1 % ophthalmic suspension 01/19/2023 nitroglycerin (NITROSTAT) 0.4 mg SL tabletIndications:NSTEMI (non-ST elevated myocardial infarction) (FORMER[facility]) Place 1 Tablet under the tongue every [...] 60 g 3 08/28/2023 vit A,C & G-egkvcz-ywyzholm (OCUVITE) 300 mcg-200 mg-27 mg-2 mg tablet Take 1 tab by mouth daily 30 Tablet 11 10/16/2023 documented as of this encounter Discharge Disposition Disposition Code Departure Means Destination Home or Self Care documented in this encounter Progress Notes * Kannan Pelaez, ANA - 03/03/2024 1000 EDT Pt in IR for Tube check. Patient name and verified. Patients allergies, medications and lab results reviewed. Patient educated on procedure, patient verbalized understanding. Events: Patient arrived to the IR suite at 0930 from waiting. Members in the room introduced. Pt moved to the IR table in supine position. tube area prepped in the usual sterile fashion with alcohol, by Bam in accordance with tennis director recommendation. See MD note for procedure events Patient tolerated the procedure well. Follow up plan: 03/17/2024 14:00 documented in this encounter Procedure Notes * Jhonathan Esquivel MD - 03/03/2024 1000 EDT IR Procedure Note Procedure: RLQ abscess tube check Date Performed: 03/03/2024 Radiologist/Casing Sewer(s): Fabrice Esquivel Sedation/Anesthesia: None Additional Medications: None Time Out: A time-out was completed prior to procedure verifying correct patient, procedure, site, positioning, and special equipment if applicable. Estimated Blood Loss: Unless otherwise noted, there was no blood loss, specimens removed, cultures obtained, or drains retained. Specimens: None Fluoroscopy Time: 0.8 min Contrast Volume: 20 mL Complications: None Condition: Same Post Procedure Diagnosis: Same Findings: RLQ pigtail drain retracted slightly. Injection of contrast reveals prompt opacification of bowel. No residual fluid cavity appreciated. Tube maintained in place. Recommendations: Cease all flushing and continue to record outputs. Follow up tube check with possible retraction of tube and downsizing in 10-14 days. D/W Dr. Hazel. Jhonathan Esquivel MD Interventional Radiology, Pager #[phone], 03/03/2024 9:57 documented in this encounter Plan of Treatment Upcoming Encounters Date Type Department Care Team (Late st Contact Info) Description 06/11/2024 12:45 EDT Office Visit [facility] Ophthalmology [address] [address] Santiago Anthony MD [address] [place] [address] 5 [place] [address] 07/15/2024 10:45 EDT Office Visit [facility] Cardiology Clinic [address] [place] [address] Gianfranco Flowers MD 130 [facility] [address] [place] [address] documented as of this encounter Procedures Procedure Name Priority Date/Time Associated Diagnosis Comments IR ABSCESS TUBE CHECK Routine 03/03/2024 10:00 EDT documented in this encounter Visit Diagnoses Diagnosis Intra-abdominal abscess (HCC-CMS)- Primary Peritoneal abscess documented in this encounter Administered Medications Inactive Administered Medications - up to 3 most recent administrations Medication Order MAR Action Action Date Dose Rate Site iohexoL (OMNIPAQUE 300) injection 50 mL 50 mL, Tube, NOW X1, 1 dose, On 03/03/24 at 1030, Routine Given 03/03/2024 10:09 EDT 20 mL documented in this encounter Orders Medications Ordered That Anant ht Not Have Been Administered Count Last Ordered Date First Ordered Date iohexoL (OMNIPAQUE 300) injection 50 mL 1 0 03/03/2024 documented in this encounter Care Teams Eyeglass Frames Inspector Relationship Specialty Start Date End Date Nivia Tinsley MD [address] [place] [address] PCP - General Family Medicine - Primary Care 08/27/19 Zheng Tapia MD [address] [place] [address] [address] [place] [address] Internal Medicine - Primary Care 09/01/19 Shazia Burks MD [address] [place] [address] Neurology 09/01/19 Tony Baron OD [address] [place] [address] Garment Parts Cutter Machine 09/01/19 Keira Paniagua MD [address] [place] [address] [address] [place] [address] Cardiovascular Disease 09/06/20 Siva Perkins MD [address] [place] [address] Neurology 09/06/20 Ladonna Candelario Finish Molder 01/23/24 documented as of this encounter
--- OUTSIDE RECORDS SUMMARY | 2024-04-29 18:12 | XMS_ITS | Encounter Summary ---
Author Organization [facility] Address [address] [place] [address] Care Team Providers Care Senior Reservoir Engineer Name Role Phone Nivia Tinsley MD Primary Care Provider Zheng Tapia MD Unavailable Shazia Burks MD Unavailable [phone] Tony Baron OD Unavailable [phone] Keira Paniagua MD Unavailable [phone] Siva Perkins MD Unavailable [phone] Chaparro Salas Unavailable Unavailable Encounter Details Date Type Department Care Team (Late st Contact Info) Description 03/10/2024 Patient Outreach [facility] Family Medicine [address] [address] Chaparro Salas Social History Tobacco Use Types Packs/Day Years Used Date Smoking Tobacco: Never Smokeless Tobacco: Never Alcohol Use Standard Drinks/Week Comments Yes 0 (1 standard drink = 0.6 oz pur e alcohol) sips here and there [facility] Utilities Answer Date Recorded In the [...] place to sleep or slept in a chcf (including now)? No 01/28/2024 Interpersonal Safety Answer [...] encounter Progress Notes * Chaparro Salas - 03/10/[address] [facility] Integrated Care Management Care Coordination Note Book Trimmer spoke with Concetta's kids, Lane and Melani, on 03/10/24 in order to coordinate care. Melani shared that their mom had a fall last weekend and ended up with a couple stiches under her eye. They are not clear how she fell, and Concetta is unable to recall the event leading up to the fall. They did put in an application with [facility], but Concetta was declined. Per Melani, she was considered a high fall risk and they did not feel that they could meet her needs. Concetta does not like [facility], and would prefer to be closer to home. Melani commented that their mom seems more depressed. She believes her mom would receive more visitors and be happier if she was closer to home. Lane and Melani are interested in [facility]. Melani is planning to complete and submit their admission application this week. They are also interestedin a referral to [facility] and [facility]. JAYDE has reached out to [facility] Solar Energy Engineer, Shala Villeda ([email or web address]), and has requested that clinical be faxed to [facility] ([phone]), [facility] ([phone]), and [facility] ([phone]). PLAN: CM will plan to follow up with Amoss kids, Azranda, on 04/21/24. ADDENDUM: [facility] Solar Energy Engineer, Shala Villeda, returned CM's call from yesterday. Shala will plan to fax referrals to [facility], [facility], and [facility] this afternoon. CHAPARRO SALAS 03/10/2024 10:43 documented in this encounter Plan of Treatment Upcoming Encounters Date Type Department Care Team (Late st Contact Info) Description 06/11/2024 12:45 EDT Office Visit [facility] Ophthalmology - [address] [phone] Santiago Anthony MD [address] [place] [address] 5 [place] [address] 07/15/2024 10:45 EDT Office Visit [facility] Cardiology Clinic [address] [place], [place] [phone] Gianfranco Flowers MD 130 [facility] [address] [place] [phone] documented as of this encounter Visit Diagnoses Not on filedocumented in this encounter Care Teams Senior Reservoir Engineer Relationship Specialty Start Date End Date Nivia Tinsley MD [address] [place] [address] PCP - General Family Medicine - Primary Care 08/27/19 Zheng Tapia MD [address] [place] [address] [address] [place] [address] Internal Medicine - Primary Care 09/01/19 Shazia Burks MD [address] [place] [address] Neurology 09/01/19 Tony Baron OD [address] [place] [address] Head Of Data 09/01/19 Keira Paniagua MD [address] [place] [address] Cardiovascular Disease 09/06/20 Siva Perkins MD [address] [place] [address] Neurology 09/06/20 Chaparro Salas Book Trimmer 01/23/24 documented as of this encounter
--- OUTSIDE RECORDS SUMMARY | 2024-04-29 18:12 | XMS_ITS | Encounter Summary ---
Author Organization [facility] Address [address] [place] [address] Care Team Providers Care Tongue And Quarter Stitcher Name Role Phone Nivia Tinsley MD Primary Care Provider [phone] Zheng Tapia MD Unavailable Shazia Burks MD Unavailable [phone] Tony Baron OD Unavailable [phone] Keira Paniagua MD Unavailable [phone] Siva Perkins MD Unavailable [phone] Chaparro Salas Unavailable Unavailable Encounter Details Date Type Department Care Team (Late st Contact Info) Description 02/11/[address] [facility] Integrative Family Medicine [address] [id number] Chaparro Salas Social History Tobacco Use Types Packs/Day Years Used Date Smoking Tobacco: Never Smokeless Tobacco: Never Alcohol Use Standard Drinks/Week Comments Yes 0 (1 standard drink = 0.6 oz pur e alcohol) sips here and there [facility] Utilities Answer Date Recorded In [...] encounter Progress Notes * Chaparro Salas - 02/11/2024 1041 EDT [facility] Camp[facility] Attendant Care Coordination Campground Attendant spoke with Rosy lipscombs, Melani and Lane, on 02/11/24 in order to coordinate care. Melani and Lane do not feel that their mom is able to return home after her rehab stay at [facility]. They discussed assisted living versus long term level of care. Melani shared that she and her are in the process of building a home in [place], [place]. For this reason, they were interested in [facility]. They were also interested in looking at [facility], [facility], and [facility]. CM explained that [facility] is a long term, and they would need to look at a transfer and likely application process as well. CM explained that since she has a safe place, she would not be viewed as a priority patient and would likely be looking at months to a year for a transfer to [facility]. CM explained the difference between [facility]. [facility], and [facility]. Based on our conversation, Melani would like to pursue [facility] and [facility]. She asked that an updated med list be mailed to her at [email or web address]. PLAN: CM will plan to reach back out to Amoss kids, Diana, on 03/10/24. CHAPARRO SALAS 02/11/2024 10:42 documented in this encounter Plan of Treatment Upcoming Encounters Date Type Department Care Team (Late st Contact Info) Description 06/11/2024 12:45 EDT Office Visit [facility] Ophthalmology - [place] [address] [place], [place] [phone] Santiago Anthony MD [address] [place] [address] 5 [place] [address] 07/15/2024 10:[address] [facility] Cardiology Clinic [address] [place] [address] Gianfranco Flowers MD 130 [facility] [address] [place] [address] documented as of this encounter Visit Diagnoses Not on filedocumented in this encounter Care Teams Tongue And Quarter Stitcher Relationship Specialty Start Date End Date Nivia Tinsley MD [address] [place] [place] [address] PCP - General Family Medicine - Primary Care 08/27/19 Zheng Tapia MD [address] [place] [address] [address] [place] [address] Internal Medicine - Primary Care 09/01/19 Shazia Burks MD [address] [place], [place] [address] Neurology 09/01/19 Tony Baron OD [address] [place] [address] Hospital Recruiter 09/01/19 Keira Paniagua MD [address] [place] [address] Cardiovascular Disease 09/06/20 Siva Perkins MD [address] [facility] [place] [address] Neurology 09/06/20 Chaparro Salas Campground Attendant 01/23/24 documented as of this encounter
--- OUTSIDE RECORDS SUMMARY | 2024-04-29 18:12 | XMS_ITS | Encounter Summary ---
Author Organization [facility] Address [address] [place] [address] Care Team Providers Care Bargeman Name Role Phone Nivia Tinsley MD Primary Care Provider [phone] Zheng Tapia MD Unavailable Shazia Burks MD Unavailable [phone] Tony Baron OD Unavailable [phone] Keira Paniagua MD Unavailable [phone] Siva Perkins MD Unavailable [phone] Ladonna Candelario Unavailable Unavailable Reason for Visit * Reason Onset Date Comments Follow-up 03/12/2024 Encounter Details Date Type Department Care Team (Late st Contact Info) Description 03/12/2024 Telephone [facility] Interventional Radiology - [address] [id number] Katiuska Jorgensen, RN Follow-up Social History Tobacco Use Types Packs/Day Years Used Date Smoking Tobacco: Never Smokeless Tobacco: Never Alcohol Use Standard Drinks/Week Comments Yes 0 (1 standard drink = 0.6 oz pur e alcohol) sips here and there [facility] Utilities Answer Date Recorded In the past 12 months has [employer] electric, gas, oil, or water company threatened [...] encounter Miscellaneous Notes * Telephone Encounter - Katiuska Jorgensen RN - 03/12/2024 1412 EDT Patient called the IR clinic triage line to discuss his mother's drain and its care. Left a voicemail with direct extension for a return phone call. documented in this encounter Plan of Treatment Upcoming Encounters Date Type Department Care Team (Late st Contact Info) Description 06/11/2024 12:45 EDT Office Visit [facility] Ophthalmology - [address] [address] Santiago Anthony MD [address] [place] [address], [facility] [address] [place] [address] 07/15/2024 10:45 EDT Office Visit [facility] Cardiology Clinic [address] [place] [address] Gianfranco Flowers MD 130 [facility] [address] [place] [address] documented as of this encounter Visit Diagnoses Not on filedocumented in this encounter Care Teams Bargeman Relationship Specialty Start Date End Date Nivia Tinsley MD [address] [place] [address] PCP - General Family Medicine - Primary Care 08/27/19 Zheng Tapia MD [address] [place] [address] [address] [place] [address] Internal Medicine - Primary Care 09/01/19 Shazia Burks MD [address] [place] [address] Neurology 09/01/19 Tony Baron OD [address] [place] [address] Quiller Operator 09/01/19 Keira Paniagua MD [address] [place] [address] [address] [place] [address] Cardiovascular Disease 09/06/20 Siva Perkins MD [address] [place] [address] Neurology 09/06/20 Ladonna Candelario Boatbuilder Apprentice Wood 01/23/24 documented as of this encounter
--- OUTSIDE RECORDS SUMMARY | 2024-04-29 18:12 | XMS_ITS | Encounter Summary ---
Author Organization [facility] Address [address] [place] [address] Care Team Providers Care Chassis Wirer Name Role Phone Nivia Tinsley MD Primary Care Provider Zheng Tapia MD Unavailable Shazia Burks MD Unavailable [phone] Tony Baron OD Unavailable [phone] Keira Paniagua MD Unavailable [phone] Siva Perkins MD Unavailable [phone] Ladonna Candelario Unavailable Unavailable Reason for Visit * Reason Onset Date Comments Coordination Of Care 02/15/2024 Encounter Details Date Type Department Care Team (Late st Contact Info) Description 02/15/2024 Telephone [facility] Interventional Radiology Unit [address] [place] [address] Bianca Cervantes, ANA [address] [place] [address] Coordination Of Care Social History Tobacco Use Types Packs/Day Years Used Date Smoking Tobacco: Never Smokeless Tobacco: Never Alcohol Use Standard Drinks/Week Comments Yes 0 (1 standard drink = 0.6 oz pur e alcohol) sips here and there [facility] Utilities Answer Date Recorded In the past 12 months has [employer] electric, gas, oil, or water company threatened [...] encounter Miscellaneous Notes * Telephone Encounter - Bianca Cervantes RN - 02/15/2024 7355 EDT Voice mail messge from Shala Villeda at [facility] requesting information of when the next follow up tube check appt is March 03 2024 at 1000 request check in registration 930 Send documentation of tube output x 3-4 days prior or call nursing report to [phone] documented in this encounter Plan of Treatment Upcoming Encounters Date Type Department Care Team (Late st Contact Info) Description 06/11/2024 12:45 EDT Office Visit [facility] Ophthalmology - [place] [address] [place] [address] Santiago Anthony MD 111 [facility], [facility] [address] [place] [address] 07/15/2024 10:45 EDT Office Visit [facility] Cardiology Clinic [address] [place], [place] [address] Gianfranco Flowers MD 130 [facility] [address] [place] [address] documented as of this encounter Visit Diagnoses Not on filedocumented in this encounter Care Teams Chassis Wirer Relationship Specialty Start Date End Date Nivia Tinsley MD [address] [place] [address] PCP - General Family Medicine - Primary Care 08/27/19 Zheng Tapia MD [address] [place] [address] [address] [place] [address] Internal Medicine - Primary Care 09/01/19 Shazia Burks MD [address] [place] [address] Neurology 09/01/19 Tony Baron, [address] [place] [address] Research Executive 09/01/19 Keira Paniagua MD [address] [place] [address]-[address] [place] [address] Cardiovascular Disease 09/06/20 Siva Perkins MD [address] [place] [address] Neurology 09/06/20 Ladonna Candelario Supercharge Repair Supervisor 01/23/24 documented as of this encounter
--- OUTSIDE RECORDS SUMMARY | 2024-04-29 18:12 | XMS_ITS | Encounter Summary ---
Author Organization [facility] Address [address] [place] [address] Care Team Providers Care Market Development Specialist Name Role Phone Nivia Tinsley MD Primary Care Provider Zheng Tapia MD Unavailable Shazia Burks MD Unavailable [phone] Tony Baron OD Unavailable [phone] Keira Paniagua MD Unavailable Siva Perkins MD Unavailable [phone] Sheryl Schwab RN Unavailable Ladonna Candelario Unavailable Unavailable Reason for Visit * Reason Onset Date Comments Coordination Of Care 01/23/2024 Encounter Details Date Type Department Care Team (Late st Contact Info) Description 01/23/[address] [facility] Interventional Radiology Unit [address] [place], [place] [phone] Bianca Cervantes, ANA [address] [place] [address] Coordination Of Care Social History Tobacco Use [...] No 01/03/2024 Housing Stability Vital Sign Answer Kennye e Recorded In the last 12 months, [...] slept in a correction (including now)? No 01/03/2024 Interpersonal Safety Answer [...] Telephone Encounter - Bianca Cervantes RN - 01/23/2024 1120 EDT Concetta Sullivan [address] Interventional Radiology Nurse Pest Control Service Sales Agent [facility] Concetta Stones Abscess drain output. Spoke with Heidy Drain placed 01/09. Output remains high They are Instillings NS 10ml twice a day. Flushed twice yesterday Net output yesterday remains high at 69ml Stated no leaking noted around tube. Pt is afebrile Off antibiotics Rescheduled drain study for 01/31/2024 at 1300 Registration at 1230 Then to [place] [address] Interventional Radiology Criteria for removal of tube is NEXT output less than 15ml /24hr period Recommendation ; To Decrease flush to 10ml once a day. Strict recordings of Drain output daily. This form was faxed to [phone] Attention Heidy PEREZ . Interventional Radiology Scheduling number [phone] Interventional Radiology Nursing number [phone] documented in this encounter Plan of Treatment Upcoming Encounters Date Type Department Care Team (Late st Contact Info) Description 06/11/2024 12:[address] [facility] Ophthalmology [address] [phone] Santiago Anthony MD 111 [facility], [address] [place] [address] 07/15/2024 10:[address] [facility] Cardiology Clinic [address] [place] [address] Gianfranco Flowers MD [address] [place] [address] [address] [place] [address] documented as of this encounter Visit Diagnoses Not on filedocumented in this encounter Care Teams Market Development Specialist Relationship Specialty Start Date End Date Nivia Tinsley MD [address] [place] [address] PCP - General Family Medicine - Primary Care 08/27/19 Zheng Tapia MD [address] [place] [address] [address] [place] [address] Internal Medicine - Primary Care 09/01/19 Shazia Burks MD [address] [place] [address] Neurology 09/01/19 Tony Baron, FRANCK [address] [place] [address] Mushroom Packer 09/01/19 Keira Paniagua MD [address] [place] [address] [address] [place] [address] Cardiovascular Disease 09/06/20 Siva Perkins MD [address] [facility] [place] [place] [address] Neurology 09/06/20 Sheryl Schwab, ANA [address] [place] [address] Slope Runner 01/23/24 01/23/24 Ladonna Candelario Slope Runner 01/23/24 documented as of this encounter
--- OUTSIDE RECORDS SUMMARY | 2024-04-29 18:12 | XMS_ITS | Encounter Summary ---
Author Organization [facility] Address [address] [place] [address] Care Team Providers Care Cotton Ball Bagger Name Role Phone Nivia Tinsley MD Primary Care Provider Zheng Tapia MD Unavailable Shazia Burks MD Unavailable [phone] Tony Baron OD Unavailable [phone] Keira Paniagua MD Unavailable Siva Perkins MD Unavailable [phone] Ladonna Candelario Unavailable Unavailable Encounter Details Date Type Department Care Team (Late st Contact Info) Description 01/31/2024 8:01 EDT - 01/31/2024 23:59 EDT Hospital Encounter [facility] Interventional Radiology Unit [address] [place] [phone] Chetan Geiger, PAClairC [address] [place] [address] Mat Meehan MD [address] [place] [phone] Appendicular abscess (Primary Dx) Discharge Disposition: Home or Self Care Social History Tobacco Use Types Packs/Day Years Used Date Smoking Tobacco: Never Smokeless Tobacco: Never Alcohol Use Standard Drinks/Week Comments Yes 0 (1 standard drink = 0.6 oz pur e alcohol) sips here and there [facility] Utilities Answer Date Recorded In the [...] place to sleep or slept in a group home (including now)? No 01/28/2024 Interpersonal Safety Answer Date Record ed How often does anyone, kalani doshi family, hit, punch or physically hurt you? Never 12/26/2021 How often does anyone, inclu ding family, insult, scream, curse or threaten to [...] this encounter Discharge Instructions * Discharge Instructions* Melissa England RN - 01/31/2024 9:01 EDT Images from the original note were not included. Interventional Radiology Discharge Instructions for Abscess Drainage Tube Care Tube Checked -Abscess drain Date - 01/31/2024 Procedure Site - Abdomen Provider - Chetan GUEVARA PA-C and Mat Meehan MD Aftercare: Activity: Leave the [...] You will be taught how to flush 5-10 cc sterile saline into the tube 3 times, weekly. Ifat the time of discharge you are unable to perform this, your nurses will arrange for a VNA nurse to care for your tube. Flushing prevents bits of debris from closing off the holes in the tube and helps to keep it open and working. KEEPING THE [...] (You can purchase extra bags at the [facility], Main outpatient pharmacy in the [facility]). You should be discharged with a [...] into your bag. When to contact the [facility] (call visiting nurse first): 1. If [...] have your tube checked or removed on 02/14/24 at 9:30 am. A provider will perform a tube study by injecting dye into your tube while taking an xray to see if your abscess is smaller. Please bring a record of your daily output. This will help determine if your tube isready to be removed. If your daily output amount is 20 ml or greater (not including the flush intake amount), please call to possible have your tube study changed to a later date. Mosttubes are ready to come out when the [...] Abnormal gait and legally blind daily 07/13/2017 zscdxnlm-cotacpsjt-pyflfb thasone (MAXITROL) 3.5mg/mL-10,000 unit/mL-0.1 % ophthalmic suspension 01/19/2023 nitroglycerin (NITROSTAT) 0.4 mg SL tabletIndications:NSTEMI (non-ST elevated myocardial infarction) ([facility]) Place 1 Tablet under the tongue [...] 60 g 3 08/28/2023 vit A,C & A-lnapko-lhlvylll (OCUVITE) 300 mcg-200 mg-27 mg-2 mg tablet Take 1 tab by mouth daily 30 Tablet 11 10/16/2023 documented as of this encounter Discharge Disposition Disposition Code Departure Means Destination Home or Self Care documented in this encounter Progress Notes * Melissa England RN - 01/31/2024 0830 EDT Labs, Medication, allergies, Pt history reviewed. Pt greeted in IRWR ID'd by name, and viewed name Temi. Pt in room time - 0840 . Concetta arrives per wheelchair As the nurse in the room I reviewed the procedure with Concetta. Pt positioned supine on the angio 26 table. Dressing removed, area below blue disc excoriated Arteaga moment at start of procedure tube check At 0853 between BJM, JAP, SLD, BADILLO . Fluoro guided tube check, stitches released, tube connected to bag drainage and dressing placed on site Defer to Physicians note for procedure outcomes Pt tolerated procedure well. Report called to nurse on unit that Concetta resides, Discharge instructions, given to Nohemy SANTILLAN accompanying Concetta and entered in epic Nohemy discharged from angio 26 per wheelchait. documented in this encounter Procedure Notes * Chetan Geiger PA-C - 01/31/2024 0830 EDT IR Procedure Note Procedure: Abscessogram Date Performed: 01/31/2024 Radiologist/Alarm Installation Technician(s): Helene Painter PA-C Sedation/Anesthesia: None Time Out: A time-out was completed prior to procedure verifying correct patient, procedure, site, positioning, and special equipment if applicable. Estimated Blood Loss: Unless otherwise noted, there was no blood loss, specimens removed, cultures obtained, or drains retained. Specimens: None Fluoroscopy Time: 0.6 Min Contrast Volume: Omnipaque 300- 8 cc Complications: None Condition: Stable Post Procedure Diagnosis: Appendicular abscess Findings: Bilious looking drainage within Daniel Orourke bulb. Injection of contrast demonstrates a fistulous communication to the bowel. The retaining sutures are erythematous and very pain full. They were removed. The drain was left in place with instructions to flush 3-5 cc of NS every other day. Recommendations: Flush 3-5 cc of NS every other day. F/U imaging in 10 days. Chetan Geiger PA-C 01/31/2024 9:12 documented in this encounter Plan of Treatment Upcoming Encounters Date Type Department Care Team (Late st Contact Info) Description 06/11/2024 12:45 EDT Office Visit [facility] Ophthalmology - [place] [address] [place] [address] Santiago Anthony MD [address] [place] [address], [address] [place] [address] 07/15/2024 10:45 EDT Office Visit [facility] Cardiology Clinic [address] [place] [address] Gianfranco Flowers MD 130 [facility]-A [address] [place] [address] documented as of this encounter Procedures Procedure Name Priority Date/Time Associated Diagnosis Comments IR ABSCESS TUBE CHECK Routine 02/14/2024 9:55 EDT IR ABSCESS TUBE CHECK Routine 01/31/2024 9:23 EDT documented in this encounter Results * IR ABSCESS TUBE CHECK (02/14/2024 9:55 [...] 2 weeks time for repeat tube check. [id number] Narrative 02/16/2024 12:28 EDT Abscess tube check HISTORY: Right lower quadrant abscess. Previous drain placement. TECHNIQUE/FINDINGS: The patient was positioned supine on the fluoroscopy table. Under fluoroscopic guidance, contrast was injected through the abscess drain, yielding an abscessogram. This revealed no significant abscess cavity, however brisk opacification of a loop of bowel. The drain was returned to bag drainage. Resulting Agency Comment [id number] Procedure Note Scriver, Mat Carlson MD - 02/16/2024 Abscess tube [...] in 2 weeks time for repeat tubecheck. [id number] Chetan Geiger PA-C IMG IR ORDERABLES documented in this encounter Visit Diagnoses Diagnosis Appendicular abscess- Primary Acute appendicitis with peritoneal abscess Appendicular abscess- Primary Acute appendicitis with peritoneal abscess documented in this encounter Administered Medications Inactive Administered Medications - up to 3 most recent administrations Medication Order MAR Action Action Date Dose Rate Site iohexoL (OMNIPAQUE 300) injection 50 mL 50 mL, Tube, NOW X1, 1 dose, On Karrie 01/31/24 at 0900, Routine Given 01/31/2024 9:24 EDT 8 mL documented in this encounter Orders Medications Ordered That Anant ht Not Have Been Administered Count Last Ordered Date First Ordered Date iohexoL (OMNIPAQUE 300) injection 50 mL 1 0 01/31/2024 documented in this encounter Care Teams Cotton Ball Bagger Relationship Specialty Start Date End Date Nivia Tinsley MD [address] [place] [address] PCP - General Family Medicine - Primary Care 08/27/19 Zheng Tapia MD [address] [place] [address] [address] [place] [phone] Internal Medicine - Primary Care 09/01/19 Shazia Burks MD [address] [place], [place] [address] Neurology 09/01/19 Tony Baron OD [address] [place] [phone] Chemist Biological 09/01/19 Keira Paniagua MD [address] [place] [address] Cardiovascular Disease 09/06/20 Siva Perkins MD [address] [place] [address] Neurology 09/06/20 Ladonna Candelario Pastry Assistant 01/23/24 documented as of this encounter
--- OUTSIDE RECORDS SUMMARY | 2024-04-29 18:12 | XMS_ITS | Encounter Summary ---
Author Organization [facility] Address [address] [place] [address] Care Team Providers Care Extruding Machine Operator Name Role Phone Nivia Tinsley MD Primary Care Provider Zheng Tapia MD Unavailable Shazia Burks MD Unavailable [phone] Tony Baron OD Unavailable [phone] Keira Paniagua MD Unavailable [phone] Siva Perkins MD Unavailable [phone] Ladonna Candelario Unavailable Unavailable Reason for Visit * Reason Onset Date Comments Appointment Related 02/11/2024 Encounter Details Date Type Department Care Team (Late st Contact Info) Description 02/11/2024 Telephone [facility] Integrative Family Medicine [facility] [address] [place] [address] [facility] [address] [place] [address] Appointment Related Social History Tobacco Use Types Packs/Day Years Used Date Smoking Tobacco: Never Smokeless Tobacco: Never Alcohol Use Standard Drinks/Week Comments Yes 0 (1 standard drink = 0.6 oz pur e alcohol) sips here and there [facility] Utilities Answer Date Recorded In the past 12 months has [employer], gas, oil, or water company threatened to [...] place to sleep or slept in a mcc (including now)? No 01/28/2024 Interpersonal Safety Answer [...] encounter Miscellaneous Notes * Telephone Encounter - Jay Cevallos - 02/11/2024 1153 EDT Patient is not yet home - still in a rehab facility * Telephone Encounter - Jay Cevallos - 02/11/2024 1033 EDT Patient no showed appt 02/07/24 Outreach to reschedule documented in this encounter Plan of Treatment Upcoming Encounters Date Type Department Care Team (Late st Contact Info) Description 06/11/2024 12:45 EDT Office Visit [facility] Ophthalmology [facility] [address] [place] [address] Santiago Anthony MD [address] [place] [address], [address] [place] [address] 07/15/2024 10:45 EDT Office Visit [facility] Cardiology Clinic [address] [place] [address] Gianfranco Flowers MD [address] [place] [address] documented as of this encounter Visit Diagnoses Not on filedocumented in this encounter Care Teams Extruding Machine Operator Relationship Specialty Start Date End Date Nivia Tinsley MD [address] [place] [id number] PCP - General Family Medicine - Primary Care 08/27/19 Zheng Tapia MD [address] [place] [address] Internal Medicine - Primary Care 09/01/19 Shazia Burks MD [address] [place] [address] Neurology 09/01/19 Tony Baron OD [address] [place] [address] Finance Administrator 09/01/19 Keira Paniagua MD [address] [place] [address] [address] Cardiovascular Disease 09/06/20 Siva Perkins MD [address] [facility] [place] [address] Neurology 09/06/20 Ladonna Candelario Communications Supervisor 01/23/24 documented as of this encounter
--- OUTSIDE RECORDS SUMMARY | 2024-04-29 18:13 | XMS_ITS | Encounter Summary ---
Author Organization [facility] Address [address] [place] [address] Care Team Providers Care Video Game Creator Name Role Phone Nivia Tinsley MD Primary Care Provider Zheng Tapia MD Unavailable Shazia Burks MD Unavailable [phone] Tony Baron OD Unavailable [phone] Keira Paniagua MD Unavailable [phone] Siva Perkins MD Unavailable [phone] Reason for Referral * Specialty Diagnoses / Procedures Referred By Lesa alves Referred To Contact [facility] [address] [place] [id number] Referral ID Status Reason Start Date Expiration Date Visits Re quested Visits Authorized Comments We are currently collecting quality data on patients having surgery. You may receive a phone call, email, and/or letter about your surgery asking you a series of follow up questions to evaluate specifics aspects of your care. Thank you for your participation. Reason for Visit * Reason Comments Altered Mental Status Dysuria Unable to void fully . Intermittent confusion since last week. Tired. Seen at clinic and suggested to come and get UTI ruled out. * Auth/Cert (Routine) Specialty Diagnoses / Procedures Referred By Lesa alves Referred To Contact Diagnoses CVD (cardiovascular disease) Intra-abdominal abscess (HCC-CMS) Perforated appendicitis complicated by acute appendicitis Acute appendicitis, unspecified acute appendicitis type CVD (cardiovascular disease) [I25.10] Referral ID Status Reason Start Date Expiration Date Visits Re quested Visits Authorized [id number] 1 1 Encounter Details Date Type Department Care Team (Late st Contact Info) Description 01/02/2024 12:23 EDT - 01/11/2024 12:40 EDT Hospital Encounter [facility] Medical / Surgical Department [address] [place] [address] Melba Umanzor MD [address] [facility], Level [address] [place] [address] Danyelle Hazel MD [address] [facility] [address] [place] [address] Perforated appendicitis (Primary Dx); Intra-abdominal abscess (HCC-CMS); Acute appendicitis, unspecified acute appendicitis type; CVD (cardiovascular disease) [I25.10] Discharge Disposition: Nursing Facility (Skilled) Social History Tobacco Use Types Packs/Day Years [...] place to sleep or slept in a custodial (including now)? No 01/03/2024 Interpersonal Safety Answer [...] on file documented as of this encounter Last Filed Vital Signs Vital Sign Reading Time Taken Comments Blood Pressure 141/85 01/11/2024 1122 EDT Pulse 94 01/11/2024 0332 EDT Temperature 36.5 ??C (97.7 ??F) 01/11/2024 1122 EDT Respiratory Rate 17 01/11/2024 1122 EDT Oxygen Saturation 90% 01/11/2024 112 EDT Inhaled Oxygen Concentration - - Weight 71.4 kg (157 lb 8 oz) 01/02/20241957 EDT Height 167.6 cm (5' 6) 01/02/20241957 EDT Body Mass Index 25.42 01/02/20241957 EDT documented in this encounter Functional Status Functional Status Response [...] 01/02/2024 documented as of this encounter Discharge Summaries * Danyelle Hazel MD - 01/11/2024 0747 EDT Surgery Discharge Summary Primary Care Provider: Nivia Tinsley Attending Physician: Danyelle Hazel,* Admit Date: 01/02/2024 Discharge Date: 01/11/2024 Disposition: [facility] facility/Subacute rehab Problems and Procedures Admitting Diagnosis: Perforated appendicitis with intra-abdominal abscess; cardiovascular disease; hypothyroidism; cerebrovascular disease; legally blind Principal/Final Diagnosis: Same Additional Problems Managed in the Hospital Active Hospital Problems Diagnosis Date Noted *Perforated appendicitis 01/02/2024 Intra-abdominal abscess ([facility]) 01/02/2024 CVD (cardiovascular disease) [I25.10] 01/02/2024 Acute appendicitis, unspecified acute appendicitis type 01/02/2024 Resolved Hospital Problems No resolved problems to display. Principal Procedure: Internal radiology intra-abdominal drain placement date: 01/10/2024 Hospital Course Patient is an 83-year-old female who was admitted on January 01 with 3 to 4 days of confusion and milddysuria. She lives alone but has a small animal caretaker who helps her for 4 hours a day. She has limited mobility within her home and primarily uses a wheelchair. She frequently develops UTI and was thought this may be the cause of her lethargy and confusion. After consultation with her primary care physicianwas transferred to the emergency room. In the emergency room she underwent a CT scan that revealed a perforated appendicitis with a small 3 cm intra-abdominal abscess. Patient had a consultation withthe hospitalist service and general surgery. It was deemed that she has significant surgical risk, h owever standard treatment for her clinical presentation is to treat nonoperatively and with antibiotics. The patient was admitted and started on Zosyn. She did quite well over the first several days with improvement of her pain. She never had an increased white blood cell count or fever. However the patient was noted to be significantly deconditioned and therefore plans were made for rehab placement. However on her fifth and sixth hospital days it was noted that her abdominal pain seemed to increasebut overall relatively mild. A CT scan was obtained on January 08 which revealed an enlarging intra-abdominal abscess roughly 6 to 8 cm in size. Interventional radiology at [facility] was contacted and drainage was arranged for January 09. She underwent uncomplicated placement of a drainage catheter into the collection obtaining thick pus. She tolerated the procedure well and was transferred back to [facility] the same evening. The patient was stable overnight. Her pain has improved but still mild in the right lower quadrant. However bowel sounds are normal. Lung exam was clear and heart exam regular rate and rhythm. She was afebrile and otherwise tolerating a regular diet. Is determined she may be discharged to rehab. She has follow-up arranged with a drain study in 2 weeks. I have been in contact withthe daughter by phone who lives in [place]. She understands the plan as well we discussed theoption of interval appendectomy. Due to the patient's health comorbidities it may be too high risk to consider this option. This can be considered after 12 weeks, however. She should take another 6 days of oral antibiotics to complete a 2-week course. She may otherwise resume all of her regular home medications. The drain should be irrigated with 10 cc of saline twice a day and the drain sponge change daily. The patient may shower and can engage in with physical therapy for rehab activities Allergies and Immunizations Allergies Allergen Reactions Adhesive Tape-Silicones Rash Bupivacaine Enalapril Cough Cough and rash Other - See Comments seasonal allergies?environmentanl? - sneezing Silicone Other (See Comments) Simvastatin Per patient, abdominal and muscle pain. Immunization History Administered Date(s) Administered Covid-19 mRNA Vaccine (Peap.coID-19) PF 0.3 ml IM (12 yrs+) 11/10/2020, 12/27/2020, 07/25/2021, 02/13/2022 Covid-19 mRNA-LNP Vaccine (MODERNA COVID-19) PF 0.5 mL IM (12 yrs+) 08/30/2023 Influenza Vaccine High Dose (FLUZONE HIGH DOSE) PF 0.7 ml IM (65 yrs+) 07/13/2017, 08/12/2018, 08/02/2020, 07/14/2021, 07/21/2022 Influenza Vaccine Pediatric Quad (AFLURIA PEDIATRIC) PF 0.25 ml IM (6-35 mos) 07/10/2016 Influenza Vaccine Quad High Dose (FLUZONE HIGH DOSE) PF 0.7 ml IM (65 yrs+) 07/26/2023 Pneumococcal Conjugate Vaccine 13-Valent (PCV13) (PREVNAR-13) 0.5 mL IM (6 wks+) 06/01/2017 Pneumococcal Polysaccharide (PPSV23) Vaccine (PNEUMOVAX-23) =>2YO SQ/IM 03/06/2016 Tdap Vaccine =>7YO IM 09/03/2017 Transition of Care Plans Condition at Discharge Improved or Stable Assessment at Discharge Vital signs: Patient Vitals for the past 12 hrs: BP Pulse Heart Rate Resp Temp SpO2 O2 Flow Rate (L/min) O2 Device 01/11/24 0740 (!) 167/81 -- 85 BPM 16 36.8 ??C (98.2 ??F) 91 % -- -- 01/11/24 0631 -- -- -- -- -- -- 2 l/min Nasal cannula 01/11/24 0332 (!) 145/72 94 -- 18 36.9 ??C (98.4 ??F) (!) 89 % -- -- 01/10/24 2331 (!) 146/71 -- 99 BPM 18 36.5 ??C (97.7 ??F) 91 % -- -- 01/10/242210 -- -- -- -- -- -- 4 l/min Nasal cannula 01/10/242009 -- -- -- -- -- -- 2 l/min Nasal cannula 04/11/24 1959 120/53 -- -- 18 36.7 ??C (98 ??F) (!) 82 % 2 l/min Nasal cannula Results Pending at Discharge Test results still pending from this admission None Relevant Studies at Discharge None Last Lab Results at Discharge CBC: Lab Results Component Value Date WBC 9.68 01/05/2024 RBC 3.55 (L) 01/05/2024 HGB 11.2 (L) 01/05/2024 HCT 33.7 (L) 01/05/2024 MCV 95 01/05/2024 MCH 31.5 01/05/2024 MCHC 33.2 01/05/2024 PLT 213 01/05/2024 DIFFTYPE Auto 01/05/2024 Discharge Follow Up Upcoming Appointments Jan 24, 2024 13:00 (Arrive by 12:30) IR ABSCESS TUBE CHECK with [facility] IR M[facility]V RM [address] [facility] Interventional Radiology Unit ([facility] Radiology Mak) [address] [place] [phone] February 07, 2024 8:45 ANNUAL WELLNESS MEDICARE with Nivia Tinsley MD [facility] (--) [address] [facility] [address] Mar 26, 2024 10:45 Injection with Santiago Anthony MD [facility] Ophthalmology [facility] (--) [address] [place] [address] [id number] Surgical follow-up should be arranged in 4 to 6 weeks. However if more convenient this can be obtained in [place]. Danyelle Hazel MD 01/11/2024 7:48 documented in this encounter Medications at Time [...] Abnormal gait and legally blind daily 07/13/2017 oztzmikb-slsmzpyqm-ictnbg thasone (MAXITROL) 3.5mg/mL-10,000 unit/mL-0.1 % ophthalmic suspension 01/19/2023 nitroglycerin (NITROSTAT) 0.4 mg SL tabletIndications:NSTEMI (non-ST elevated myocardial infarction) (HCC-CMS) Place 1 [...] 60 g 3 08/28/2023 vit A,C & U-qvwzdu-sdzbixpn (OCUVITE) 300 mcg-200 mg-27 mg-2 mg tablet Take 1 tab by mouth daily 30 Tablet 11 10/16/2023 documented as of this encounter Ordered Prescriptions Prescription Sig Dispensed Refills Start Date End Da te polyethylene glycol 3350 (MIRALAX) 17 gram packet Take 17 g by mouth daily. 01/11/2024 amoxicillin-clavulanate (AUGMENTIN) 875-125 mg per tablet Take 1 Tablet by mouth every 12 hours. 01/11/2024 acetaminophen (TYLENOL) 325 mg tablet Take 2 Tablets by mouth every 4 hours as needed for Pain. 01/11/2024 documented in this encounter Discharge Disposition Disposition Code Departure Means Destination Comment s Nursing Facility (Skilled) Skilled N ursing documented in this encounter Progress Notes * Eleanor Forbes, PT - 01/11/2024 1240 EDT [facility] Discontinue/Discharge Note Date: 01/11/2024 SUBJECTIVE: None OBJECTIVE: The patient has been discharged from the hospital. Please refer to the last Physical Therapy Progress Note for details. ASSESSMENT: Unable to assess her current status as the patient was not seen for any additional therapy sessions. GOALS: All goals discontinued. PLAN: Discontinue physical therapy. ELEANOR FORBES, ANA 01/11/2024 13:47 * Mahesh Rucker LPN - 01/11/2024 1240 EDT Nursing Discharge Note D: Patient noted with discharge orders to: [facility]. A: Prescriptions provided to patient. Reviewed discharge instructions and prescriptions with Caregiver IV d/c'd. Belongings collected and sent home with patient. Report called to D.C. at 1200. R: Caregiver verbalized understanding of discharge instructions and denied further questions. MAHESH RUCKER LPN 01/11/2024 13:53 - Dressing supplies for drain provided. Scribe reviewed the potential need of drain flushing and adapters were provided as well. Scribe transported WC with leg rest to loading dock and EMS placed in ambulance. * Katia Swain - 01/11/2024 1023 EDT DC Destination and with who: rehab If Longterm, Level of Care: one Client and/or Family Aware and in Agreement with the dc plan: yes IM Issued: yes Community Service Referrals and Agency: n/a Was the Agency/Person Notified, Who, Contact Info?: n/a Any New Equipment/What Type and from where?: n/a Mode of Transportation and Agency: ambulance Patient agrees with the discharge plan. CM was able to update patients daughter who will let the rest of the family know. CM let RN know that patients wheelchair needs to go with her. [facility] asked for 5 days of drain supplies until theres comes in.CM also provided this information to the RN and CNC. CM completed paper work for [facility] with patient and faxed her discharge orders. * Fay House, PT - 01/10/2024 1056 EDT [facility] Physical Therapy Contact Note Date of Service: 01/10/2024 Patient approached for PT intervention this morning. Reported she will be leaving for procedure at [facility] and wants to wait for out of bed activity until she is back from that. PT to continue to approach per POC. Fay House, PT 01/10/2024 10:56 * Jessica Grant - 01/10/2024 1055 EDT Case Management Progress Note: Level of Care: Acute. Discharge Plan/Estimated Date of Discharge: [facility]. BON in 1-2 days. Medically ready as of 01/07/24. Insurance/Payor Source: Medicare ACO and [facility]. Barriers to Discharge: Drain placement today at [facility] and then back. Support Network: Caregiver, Salome (comes Sunday through Sunday for a few hours each day). Niece, Padmini ([place]). Daughter, FEDE Polo. MOHernandez. Transportation: Ambulance. Prior to Admission: Patient was getting help from caregiver with bathing, dressing, medication management, food prep, and cleaning. She can assist with her ADLs, but is legally blind. Uses a wheelchair. Continued Planning: Packet for facility started today. CM will continue to follow. Addendum: Monica Pierre of [facility] called today to inform that patient was active with them as well. Updates faxed to Monica and Heidy Anderson sending a form for patient to sign as well in case she needs information from [facility] as well. Monica Pierre contact information: Phone: [phone] Fax: [phone] * Danyelle Hazel MD - 01/10/2024 0795 EDT Surgery Progress Note Service Date: 01/10/2024 Admit Date: 01/02/2024 12:23 Hospital day #8 with perforated appendicitis 24 Hour Events: CT the scan reveals a 6 to 7 cm intra-abdominal abscess related to her perforated appendicitis A rehab bed is available at [facility] Subjective/Objective Subjective Patient states she feels well and in fact slept relatively well. She does complain of a little moreright lower quadrant pain today. Objective Vital Signs Temp: [36.4 ??C (97.6 ??F)-37 ??C (98.6 ??F)] , Heart Rate: [56 BPM-70 BPM] , Pulse: --, Pulse FromOximetry: [68 BPM-77 BPM] , Resp: [14-18] , BP: (142-175)/(74-80) , SpO2: [90 %-94 %] Physical Exam General Appearance: alert, cooperative, no distress Lung: clear to auscultation bilaterally Heart: regular rate and rhythm Abdomen: Mildly distended with good bowel sounds. But she is tender at McBurney's point, roughly the same as yesterday Extremities: Warm and well perfused, 1+ edema Skin: Skin color, temperature, turgor normal. No rashes or lesions Assessment 83 y.o. female with history of CHF coronary disease and renal failure, and a high risk candidate for surgery now hospital day #8 for perforated appendicitis with intra-abdominal abscess. This abscesswas found to have enlarged and amenable to drainage Plan Principal Problem: Perforated appendicitis Active Problems: Intra-abdominal abscess ([facility]) CVD (cardiovascular disease) [I25.10] Acute appendicitis, unspecified acute appendicitis type Patient continues to remain stable. She has been n.p.o. overnight and appropriate for drainage of her abscess. She has transport scheduled for later this morning to [facility] to undergo this procedure I will place her on a low rate IV fluids to minimize dehydration. We have transitioned her antibiotics from Zosyn to Augmentin at this point in time. VTE Prophylaxis Pharmacologic Prophylaxis: Enoxaparin (Lovenox) 40 mg SQ daily this will be held for the procedure today Discharge Plan [facility] facility/Subacute rehab once the drain is placed I think it is reasonable the patient could be discharged to rehab in the next day or 2. This likely drain will have to be in place for1 to 2 weeks Danyelle Hazel MD 01/10/2024 7:40 * Mahesh Rucker LPN - 01/09/2024 1646 EDT Data: Pt is an 83yo female admitted to Med/Surg for Perforated Appendicitis; Hospital Day 7. Pt is alert and oriented x 4 and can effectively communicate needs. She is legally blind. Pt is a good historian and responds appropriately to closed- and open-ended questions. Pt requires 1-2 person assistwith transfers and ambulation, using a prakash-stedy. Pt is continent of bowel and bladder, using the BSC for elimination. Pt displays good safety awareneness and is reliable to request assistance when help is needed. Main focus for today: Action: Assessment performed per protocol. Refer to flowsheet for details. Medications administeredper order and without difficulty- see eMAR. ABX with Zosyn Extended Q6h with plan to transition to oral ABX at discharge. Pt up OOB for meals this shift. PT this afternoon. Repeat imaging shows progression and enlargement of abscess, requiring IR intervention. Hourly rounding per policy. Response: Pt compliant with medication/treatment regimen. Despite enlargement of abscess, pt has not exhibited signs of abdominal pain or discomfort. Denies nausea. Pt participated in plan of care, exhibited comprehension and verbalized understanding of teachings this shift. Pt participated in therapy and tolerated exercises well. Pt resting comfortably in bedside chair at this time. Denies pain/discomfort. No noted signs of distress. MAHESH RUCKER LPN 01/09/2024 16:47 - Pt offered a bed at [facility] and was prepared for discharge today. Pt requires IR procedure for drainplacement (scheduled for tomorrow @ [facility]). She will be able to discharge the evening of drain placement or the day after. * Latosha Sorensen - 01/09/2024 1613 EDT Brief Nutrition Note: Patient is consuming 75-100% meals. Ordering within consistent carb restrictions well. Will continue to provide daily visits to menu assist. Patient will be transferred to [facility] for procedure 01/09. NPOstarting at midnight tonight. Will continue to monitor for wt changes and diet toleration after surgery. Recommend Vit D supplement. Pt appears to take Vit D at home 2 serum levels were insufficient 11/22. Recommend retesting and consider Vit D supplement while in the hospital. Last weight taken 01/01. Recommend weekly weights to trend. Pts bowels are moving. Last BM 01/08. No further clinical nutrition intervention necessary unless status changes. Pedro Mcnally * Fay House, PT - 01/09/2024 1521 EDT [facility] Contact Note Date of Service: 01/09/2024 Approached patient for PT intervention this afternoon; reports just got into bed and wanting to take a nap. No intervention provided. PT to continue to follow- up per POC. Fay House, PT 01/09/2024 15:21 * Jessica Grant - 01/09/2024 1444 EDT Case Management Progress Note: Level of Care: Acute. Discharge Plan/Estimated Date of Discharge: [facility]. BON in 1-2 days. Medically ready as of 01/07/24. Insurance/Payor Source: Medicare ACO and [facility]. Barriers to Discharge: Drain placement tomorrow at [facility] and then back. Support Network: Caregiver, Salome (comes Sunday through Sunday for a few hours each day). NiecePadmini ([place]). Daughter, FEDE Polo. Lynn. Transportation: Ambulance. Prior to Admission: Patient was getting help from caregiver with bathing, dressing, medication management, food prep, and cleaning. She can assist with her ADLs, but is legally blind. Uses a wheelchair. Continued Planning: Packet for facility started today. CM will continue to follow. * Bianca Cervantes RN - 01/09/2024 1412 EDT ILLNESS SEVERITY; Pt admitted to [facility] 4/ abdominal pain as chief complaint . Currently on a 2 [facility] nursing unit , PATIENT SUMMARY ; Referring Provider Ilir from [facility] Hospital has contacted IR via Dr Cadet who has accepted patients transfer for Ct scan guided Abscess drain placement same day Procedure and return back to [facility] ACTION LIST: Confirmed with IR scheduling, we have an order for the procedure. They have given me a Date of 01/10/2024 arriving at 1315 . Have contacted unit at [phone] Informed transferring nursing unit we are requesting patients Arrival via the Emergency room at 1315 . Proceed to [facility] CVU unit. Transferring unit to call nursing Call report prior to their departure to [phone]. Transferring unit to send copies of MD Transfer note, most current MAR, and labs SITUATION AWARENESS: Travel Attendants contacted Nursing Unit and spoke with Mahesh obtained clinical information; Reviewed allergies Reviewed medications confirmed not on any anticoagulants . Confirmed patient on has completed a round of Pip Carl patient still has RLQ discomfort and CT imagine shows interval increase in size of the abscess . Pt taking no for pain. Patient able to give informed consent. CONTINGENCY PLAN; Pt to be procedure ready by being NPO of solids on 0001 on 01/10/2024(date). Can have clear liquids up to 1000am. Must have a working IV Must be in compliance with anticoagulation management. PLEASE hold am LOVENOX Please draw an INR have have resulted by 1000am, would want Attending to call IR Attending if >1.5. Patients procedure projected to last 1.5hr. Attending Provider will assess at end of procedure if they need to recover at procedure site or if they can return immediately. Procedure site will call report to Transferring Hospital. IR scheduling desk [phone] IR Attending circulation worker PAS [phone] ask to speak with IR attending circulation worker IR Nursing office [phone] SYNTHESIS BY MACHINE TECH: The following has been faxed to transferring unit and confirmed by phone call to assure they have received. * Danyelle Hazel MD - 01/09/2024 0635 EDT Surgery Progress Note Service Date: 01/09/2024 Admit Date: 01/02/2024 12:23 POD: n/a Chief Complaint: abdominal pain 24 Hour Events: BM x3 Subjective/Objective Subjective Feeling well this morning. No abdominal pain. Denies nausea or emesis, having bowel function. Objective Vital Signs Temp: [36.8 ??C (98.3 ??F)-37.1 ??C (98.7 ??F)] , Heart Rate: [64 BPM-76 BPM] , Pulse: --, Pulse From Oximetry: [63 BPM-75 BPM] , Resp: [16-18] , BP: (140-171)/(74-89) , SpO2: [91 %-94 %] Physical Exam General Appearance: alert, cooperative, no distress Lung: non labored breathing Heart: regular rate and rhythm Abdomen: soft, nondistended, right lower quadrant tenderness with deep palpation with involuntary guarding Extremities: Warm and well perfused Skin: Skin color, temperature, turgor normal. No rashes or lesions Assessment/Plan Assessment/Plan Patient is an 83-year-old female who presented with abdominal pain, found to have perforated appendicitis. Completed course of Zosyn, but with persistent right lower quadrant tenderness on exam. Willplan for CTAP with contrast today to take another look. Will discuss transition to augmentin today Zosyn completed yesterday CTAP with IV contrast today Patient discussed with Dr. Hazel. EMMANUELLE HANCOCK MD 01/09/2024 6:[address] scan did show an enlarging abscess. I reviewed this with the patient he is feeling quite well also bed is available at [facility]. I recommend IR drainage of the abscess. I have spoken with Dr. Ramon Cadet and this will be organized for tomorrow. We are hopeful that the rehab bedcan help and potentially she can be discharged the following day. I have also called the daughter and updated her with this information Danyelle Hazel MD * Mahesh Rucker, MAXX - 01/08/2024 1844 EDT Data: Pt is an 83yo female admitted to Med/Surg for Perforated Appendicitis; Hospital Day 6. Pt is alert and oriented x 4 and can effectively communicate needs. She is legally blind. Pt is a good historian and responds appropriately to closed- and open-ended questions. Pt requires 1-2 person assistwith transfers and ambulation, using a prakash-stedy. Pt is continent of bowel and bladder, using the BSC for elimination. Pt displays good safety awareneness and is reliable to request assistance when help is needed. Main focus for today: Action: Assessment performed per protocol. Refer to flowsheet for details. Medications administeredper order and without difficulty- see eMAR. ABX with Zosyn Extended Q6h with plan to transition to oral ABX at discharge. Pt up OOB for meals this shift. PT this AM. Hourly rounding per policy. Response: Pt compliant with medication/treatment regimen. Pt participated in plan of care, exhibited comprehension and verbalized understanding of teachings this shift. Pt participated in therapy andtolerated exercises well. Pt resting comfortably in bedside chair at this time. Denies pain/discomfort. No noted signs of distress. MAHESH RUCKER LPN 01/08/2024 18:44 - Medically stable for discharge. Pending [facility] placement. * Fay House, PT - 01/08/2024 1523 EDT [facility] Inpatient Rehabilitation Services [facility] Physical Therapy Encounter Note Date of Service: 01/08/2024 Diagnosis: Acute appendicitis Date of Onset: 01/04/24 Referring Provider: Danyelle Wolfe MD Precautions: legally blind SUBJECTIVE: Subjective Statements Patient is currently having difficulty with: mobility; weakness Patient/caregiver states: I don't think I'm able to go home like this. Patient/Caregiver Goals Patient and Caregiver Goals: Go home Reporting Person Subjective Information Reported by: Patient Pain Evaluation Pain Description: No report of pain during PT intervention. OBJECTIVE: Interventions Completed Today: Physical Therapy Today At: Time: 1340 Total Treatment Time (minutes): 25 Timed Code Treatment Minutes: 25 Interventions Included Procedures: Therapeutic activities Therapeutic Activities Minutes: 25 Therapeutic Activities 1: Patient seen for continued functional transfer training with RW to support upright mobility and stepping strengthening. STS to RW with min assist to transition over WILMER. Marching in place with min/mod assist to stabilize weightshift with limited lifting of LEs from ground.Attempted pivot on second attempt with patient advancing walker far in front of WILMER with mod assistto stabilize. Returned to sitting and supported to don shoes to improve stability. STS to RW with min assist; STP with mod assist with cueing for directional sequencing and positioning in AD. Sit to supine with supervision with mod assist to support bridging to reposition higher in bed. Patient Status at the End of the Therapy Session The patient was left in the: bed with the: Call ernst in reach Patient/Family Education: Education Topics Activity/Work/Community: Household Mobility, Body mechanics Braces and Equipment: Use of assistive device Mobility, Transfers, and Gait: Mobility recommendations, Functional transfers Recommendations: Discharge recommendations/planning, Follow-up services Safety: Safety, Fall prevention Therapy Specific: Role of physical therapy Team Communication Communicated with: Nurse When: Prior to therapy session By: [id number] communication About: Patient status. ASSESSMENT: Patient continues to demonstrate need for physical supports to perform functional transfers but diddemonstrate improved stability and sequencing of stepping pattern on this date. Patient does not demonstrate adequate mobility to discharge home at this time and will benefit from [facility] stay s/p discharge to support maximal functional outcome. PT to continue to follow while inpatient to progress functional mobility. The patient's prior level of function was: modified independent with: wheelchair transfers and 4 hour/day caregiver support. Current status is: below prior level of function The patient's rehabilitation potential is: good Physical Therapy is medically necessary to: address these body structure/function impairments, activity limitations, and participation restrictions, establish and progress mobility/exercise and provide recommendations for staff and safe discharge planning, facilitate return to prior level of function, improve safety and independence, provide education in a home exercise program to address impairments in body functions and structures and promote increased activity and participation, provide family/caregiver education to assist the patient The patient: requires sub-acute rehabilitation as next level of care for multiple therapy disciplines at a lower intensity with the expectation to return to prior level of function/living situation. PLAN: Recommended Discharge Destination: Subacute rehabilitation Recommended Discharge Services Therapy Specific Services: Physical therapy, Occupational therapy Next Session to Include: functional transfers; bed mobility; wc mobility; gait as appropriate Fay House PT 01/08/2024 15:23 * Jessica Grant - 01/08/2024 6694 EDT Case Management Progress Note: Level of Care: Acute. Discharge Plan/Estimated Date of Discharge: [facility]. [place] tomorrow. Medically ready as of 01/07/24. Insurance/Payor Source: Medicare ACO and [facility]. Barriers to Discharge: No bed offers. Support Network: Caregiver, Salome (comes Sunday through Sunday for a few hours each day). Niece, Padmini ([place]). Daughter, FEDE Polo. MOWs. Transportation: Wheelchair van or caregiver, Salome. Prior to Admission: Patient was getting help from caregiver with bathing, dressing, medication management, food prep, and cleaning. She can assist with her ADLs, but is legally blind. Uses a wheelchair. Continued Planning: Local [facility] referrals made on 01/05/24, out of area [facility]AH referrals made today (patient aware). See Destination tab for full list. CM will continue to follow. * Danyelle Hazel MD - 01/08/2024 0753 EDT Surgery Progress Note Service Date: 01/08/2024 Admit Date: 01/02/2024 12:23 24 Hour Events: No isues Subjective/Objective Subjective Pt feels well without complaints. She is wondering about her rehab options Objective Vital Signs Temp: [36.6 ??C (97.8 ??F)-37.1 ??C (98.7 ??F)] , Heart Rate: [60 BPM-70 BPM] , Pulse: --, Pulse From Oximetry: [64 BPM-68 BPM] , Resp: [16-18] , BP: (143-174)/(62-81) , SpO2: [90 %-93 %] Physical Exam General Appearance: alert, cooperative, no distress Lung: clear to auscultation bilaterally Heart: regular rate and rhythm Abdomen: +BS mild tenderness at McBurney's point Extremities: Warm and well perfused, 1+ edema Assessment 83 y.o. female with perforated appendicitis a small abdominal abscess. She is very high risk for operative intervention and currently improving with antibiotics Plan Principal Problem: Perforated appendicitis Active Problems: Intra-abdominal abscess ([facility]) CVD (cardiovascular disease) [I25.10] Acute appendicitis, unspecified acute appendicitis type Pt stable and appropriate for discharge once rehab bed available. Continue IV antibiotics for now but likely transition to oral once a rehab bed is available. She will need a total of 10 days of treatment. VTE Prophylaxis Pharmacologic Prophylaxis: Enoxaparin (Lovenox) 40 mg SQ daily Discharge Plan [facility] facility/Subacute rehab Danyelle Hazel MD 01/08/2024 7:53 * Fay House, PT - 01/07/2024 4568 EDT [facility] Physical Therapy Encounter Note Date of Service: 01/07/2024 Diagnosis: Acute appendicitis Date of Onset: 01/04/24 Referring Provider: Danyelle Wolfe MD Precautions: legally blind SUBJECTIVE: Subjective Statements Patient is currently having difficulty with: mobility; weakness Patient/caregiver states: I really just want to lay down and rest. Patient/Caregiver Goals Patient and Caregiver Goals: Go home Reporting Person Subjective Information Reported by: Patient Pain Evaluation Pain Description: No report of pain during PT intervention. OBJECTIVE: Interventions Completed Today: Physical Therapy Today At: Time: 1005 Total Treatment Time (minutes): 35 Timed Code Treatment Minutes: 35 Interventions Included Procedures: Therapeutic activities Therapeutic Activities Minutes: 35 Therapeutic Activities 1: Functional transfer training to support progression towards PLOF. Obtained wheelchair to simulate home environment. STS to wheelcahir with cueing for hand placement and mod assist. Initiated pivot with return to recliner due to instability in standing. Discussed positionoin g/sequencing with STP to wheelchair with mod assist, cueing for hand placement. STP to bed with useof grab bar and mod/max assist to stabilize stepping over to EOB. Mod assist to sequence mobility higher in bed. Sit to supine with supervision. Discussed POC, plan for treatment progression. Patient Status at the End of the Therapy Session The patient was left in the: bed with the: Call ernst in reach Patient/Family Education: Education Topics Activity/Work/Community: Household Mobility, Body mechanics Braces and Equipment: Use of assistive device Mobility, Transfers, and Gait: Mobility recommendations, Functional transfers Recommendations: Discharge recommendations/planning, Follow-up services Safety: Safety, Fall prevention Therapy Specific: Role of physical therapy Team Communication Communicated with: Nurse, regional merchandising manager When: Prior to therapy session, After therapy session By: [id number] communication About: Patient status. Mobility recommendations. ASSESSMENT: Patient demonstrated improved transfer performance on this date but continues to be limited by increased functional weakness, reduced activity tolerance resulting in need for physical supports to maintain safety/stability with transfers. Patient does not demonstrate adequate mobility to discharge home at this time and will benefit from [facility] stay s/p discharge prior to returning home with caregiversupport. Patient agreeable. PT to continue to follow while inpatient. The patient's prior level of function was: modified independent with: 4 hour/day caregiver support Current status is: below prior level of function The patient's rehabilitation potential is: good Physical Therapy is medically necessary to: address these body structure/function impairments, activity limitations, and participation restrictions, establish and progress mobility/exercise and provide recommendations for staff and safe discharge planning, facilitate return to prior level of function, improve safety and independence, provide education in a home exercise program to address impairments in body functions and structures and promote increased activity and participation, provide family/caregiver education to assist the patient The patient: requires sub-acute rehabilitation as next level of care for multiple therapy disciplines at a lower intensity with the expectation to return to prior level of function/living situation. PLAN: Patient/Family Education: Discharge planning, Patient education, Recommendations, Role of physical therapy/occupational therapy/rehabilitation, Safety Recommended Discharge Destination: Subacute rehabilitation Recommended Discharge Services Therapy Specific Services: Physical therapy, Occupational therapy Next Session to Include: functional transfers; bed mobility; wc mobility; gait as appropriate Fay House, ANA 01/07/2024 18:08 * Elliot Rich MD - 01/07/2024 1042 EDT General Surgery Progress Note Service Date: 01/07/2024 Admit Date: 01/02/2024 Chief Complaint: Perforated appendicitis with abscess 24 Hour Events: Tolerating diet PT rec [facility] Subjective/Objective Subjective Patient notes no abdominal pain today. Tolerating diet. Would like to go home, but notes that she is very tired. Objective Vital Signs BP (!) 148/62 Pulse 73 Temp 36.5 ??C (97.7 ??F) (Oral) Resp 16 Ht 167.6 cm (66) Wt 71.4 kg (157 lb 8 oz) SpO2 92% BMI 25.42 kg/m?? Physical Exam Physical Examination: General appearance -sitting in chair eating yogurt and soup. No distress Mental status - alert, oriented to person, place, and time, normal mood, behavior, speech, dress, motor activity, and thought processes Chest - clear to auscultation, no wheezes, rales or rhonchi, symmetric air entry Heart - normal rate and regular rhythm Abdomen -soft, moderately distended. No tenderness to exam today Musculoskeletal -sitting upright in chair Medications Reviewed: No changes Labs Results for orders placed or performed during the hospital encounter of 01/02/24 (from the past 24 hour(s)) CREATININE Result Value Ref Range Creatinine 0.80 0.52 - 1.04 mg/dL eGFR 72 >60 mL/min/1.73m2 HOLD LAVENDER TOP Result Value Ref Range Hold Hold Assessment/Plan Assessment 83 y.o. female with history of coronary artery disease, CHF presenting with perforated appendicitisand a small intra-abdominal abscess. Continues on IV Zosyn. Medically ready for transition to oral antibiotics and discharge, however the patient has significant weakness as a result of this infection. She indicates that she would like to go home, but the consensus is that she is not able to function independently at present. She has some help at home, but this is not felt to be adequate in her current condition. Current consensus is that short-term rehab is most appropriate. Discussed with her that we would recommend outpatient follow-up with Dr. Hazel to discuss whetherelective interval appendectomy would be appropriate. Plan Principal Problem: Perforated appendicitis with abscess transition to oral antibiotics when convenient Continue diet as tolerated Active Problems: Weakness/deconditioning exacerbated by current illness Likely MICAH given patient's current increased needs VTE Prophylaxis Pharmacologic Prophylaxis: Enoxaparin (Lovenox) 40 mg SQ daily Discharge Plan [facility] facility/Subacute rehab Elliot Rich MD 01/07/2024 * KaitlynpamelahectorJessica - 01/07/2024 1038 EDT Case Management Progress Note: Level of Care: Acute. Discharge Plan/Estimated Date of Discharge: [facility]. [facility] tomorrow. Medically ready as of 01/07/24. Insurance/Payor Source: Medicare ACO and [facility]. Barriers to Discharge: No bed offers. Support Network: Caregiver, Salome (comes Sunday through Sunday for a few hours each day). Niece, Padmini ([place]). Daughter, FEDE Polo. [place]. Transportation: Wheelchair van or caregiver, Salome. Continued Planning: Prior to admission, patient was getting help from caregiver with bathing, dressing, medication management, food prep, and cleaning. She can assist with her ADLs, but is legally blind. Uses a wheelchair. CM will continue to follow. * Elliot Rich MD - 01/06/2024 1106 EDT General Surgery Progress Note Service Date: 01/06/2024 Admit Date: 01/02/2024 Chief Complaint: Perforated appendicitis with abscess 24 Hour Events: Tolerating diet PT rec [facility] Subjective/Objective Subjective Don't they usually take the appendix out? Patient continues to tolerate oral intake. Notes minimal discomfort. Requiring significant assist when OOB Objective Vital Signs BP (!) 169/82 Pulse 73 Temp 36.8 ??C (98.2 ??F) (Oral) Resp 20 Ht 167.6 cm (66) Wt 71.4 kg (157 lb 8 oz) SpO2 95% BMI 25.42 kg/m?? Physical Exam Physical Examination: General appearance -sitting in chair eating yogurt and soup. No distress Mental status - alert, oriented to person, place, and time, normal mood, behavior, speech, dress, motor activity, and thought processes Chest - clear to auscultation, no wheezes, rales or rhonchi, symmetric air entry Heart - normal rate and regular rhythm Abdomen -soft, moderately distended. Notes mild tenderness to palpation in the right lower quadrantwithout obvious guarding or rebound. Musculoskeletal -sitting upright in chair Medications Reviewed: No changes Labs Results for orders placed or performed during the hospital encounter of 01/02/24 (from the past 24 hour(s)) CREATININE Result Value Ref Range Creatinine 0.76 0.52 - 1.04 mg/dL eGFR 77 >60 mL/min/1.73m2 HOLD LAVENDER TOP Result Value Ref Range Hold Hold Assessment/Plan Assessment 83 y.o. female with history of coronary artery disease, CHF presenting with perforated appendicitisand a small intra-abdominal abscess. Continues on IV Zosyn. Medically ready for transition to oral antibiotics, however the patient has significant weakness as a result of this infection. She indicates that she would like to go home. She notes that she has some help at home, but this is not felt carol adequate in her current condition. Ongoing assessment whether the addition of home health assistance will be adequate or whether she will need short-term rehab. Per RN, daughter in this morning and agrees that short-term rehab would be best. Plan Principal Problem: Perforated appendicitis with abscess continue IV Zosyn while admitted Continue diet as tolerated Active Problems: Weakness/deconditioning exacerbated by current illness Continued assessment and intervention with PT until home services and/or [facility] arrangements are made. VTE Prophylaxis Pharmacologic Prophylaxis: Enoxaparin (Lovenox) 40 mg SQ daily Discharge Plan [facility] facility/Subacute rehab Elliot Rich MD 01/06/2024 * Elliot Rich MD - 01/05/2024 1347 EDT General Surgery Progress Note Service Date: 01/05/2024 Admit Date: 01/02/2024 Chief Complaint: Perforated appendicitis with abscess 24 Hour Events: Tolerating diet Noted to be weak requiring significant assistance for mobility. Subjective/Objective Subjective Patient continues to tolerate oral intake. Notes mild right lower quadrant pain. Objective Vital Signs BP (!) 144/55 (BP Cuff Location: Right arm, BP Patient Position: Sitting) Pulse 73 Temp 36.5 ??C (97.7 ??F) (Oral) Resp 18 Ht 167.6 cm (66) Wt 71.4 kg (157 lb 8 oz) SpO2 93% BMI 25.42 kg/m?? Physical Exam Physical Examination: General appearance -sitting in chair eating yogurt and soup. No distress Mental status - alert, oriented to person, place, and time, normal mood, behavior, speech, dress, motor activity, and thought processes Chest - clear to auscultation, no wheezes, rales or rhonchi, symmetric air entry Heart - normal rate and regular rhythm Abdomen -soft, moderately distended. Notes mild discomfort in the right lower quadrant without obvious guarding or rebound. Musculoskeletal -sitting upright in chair Medications Reviewed: No changes Labs Results for orders placed or performed during the hospital encounter of 01/02/24 (from the past 24 hour(s)) BASIC METABOLIC PANEL (BMP) Result Value Ref Range Sodium 137 136 - 145 mmol/L Potassium 3.7 3.5 - 5.0 mmol/L Chloride 107 96 - 110 mmol/L CO2 Total 22 22 - 32 mmol/L Anion Gap 8 5 - 14 mmol/L Glucose 134 (H) 70 - 99 mg/dl Calcium 8.2 (L) 8.5 - 10.5 mg/dL BUN 17 10 - 26 mg/dL Creatinine 0.81 0.52 - 1.04 mg/dL eGFR 71 >60 mL/min/1.73m2 COMPLETE BLOOD COUNT AND DIFFERENTIAL Result Value Ref Range WBC 9.68 4.00 - 12.40 K/cmm RBC 3.55 (L) 3.86 - 5.04 M/cmm Hemoglobin 11.2 (L) 11.6 - 15.2 g/dL HCT 33.7 (L) 34.9 - 44.4 % MCV 95 81 - 98 fL MCH 31.5 26.7 - 33.3 pg MCHC 33.2 32.1 - 35.9 g/dL RDW-CV 13.5 <14.7 % RDW-SD 47.2 <50.4 fl PLT 213 141 - 377 K/cmm MPV 9.7 9.5 - 12.7 fL % Neutrophils 77.8 % % Lymphocytes 9.5 % % Monocytes 9.1 % % Eosinophils 1.9 % % Basophils 0.4 % % Immature Grans 1.3 % Absolute Neutrophils 7.53 2.20 - 8.85 K/cmm Absolute Lymphocytes 0.92 (L) 1.09 - 3.30 K/cmm Absolute Monocytes 0.88 (H) 0.10 - 0.80 K/cmm Absolute Eosinophils 0.18 0.03 - 0.61 K/cmm ABS Basophils 0.04 0.01 - 0.11 K/cmm Absolute Immature Grans 0.13 (H) 0.00 - 0.06 K/cmm Type of Differential: Auto Assessment/Plan Assessment 83 y.o. female with history of coronary artery disease, CHF presenting with perforated appendicitisand a small intra-abdominal abscess. Continues on IV Zosyn. Medically ready for transition to oral antibiotics, however the patient has significant weakness as a result of this infection. She indicates that she would like to go home. She notes that she has some help at home, but this is not felt carol adequate in her current condition. Ongoing assessment whether the addition of home health assistance will be adequate or whether she will need short-term rehab. Plan Principal Problem: Perforated appendicitis with abscess continue IV Zosyn while admitted Continue diet as tolerated Active Problems: Weakness/deconditioning exacerbated by current illness Continued assessment and intervention with PT until home services and/or [facility] arrangements are made VTE Prophylaxis Pharmacologic Prophylaxis: Enoxaparin (Lovenox) 40 mg SQ daily Discharge Plan [facility] facility/Subacute rehab Elliot Rich MD 01/05/2024 * Nancy Ramirez, PT - 01/05/2024 1002 EDT [facility] Initial Evaluation Note Date of Service: 01/05/2024 Diagnosis: Acute appendicitis Date of Onset: 01/04/24 Referring Provider: Danyelle Wolfe MD Reason for Referral: Evaluate and treat Referral Reason Comment: check for safety at home Precautions: legally blind SUBJECTIVE: Subjective Statements Patient is currently having difficulty with: mobility; weakness Patient/caregiver states: I'm really tired and would just like to lie back down to go to bed. I thought I had to go to the bathroom but I don't anymore. If I sat on the commode I don't think anythingwould happen Patient/Caregiver Goals Patient and Caregiver Goals: Go home Patient and Caregiver Goals: I want to go home Reporting Person Subjective Information Reported by: Patient Pain Evaluation Pain Description: No pain reported OBJECTIVE: Patient Profile: Patient is a 83 y.o. female admitted on 01/02/2024 secondary to Perforated appendicitis. The patient lives at [address] [place] [address] General Information Hand Dominance: Right History of Present Illness / Injury Current Illness / Injury: Per MD H&P from 01/02/24: Concetta Sullivan is a 83 y.o. female with CVA, NSTEMI, legally blind at baseline, history of macular degeneration who presents to the ED for confusion. Patient says she does not feel that she is particular confused but her caregiver who visits her4 hours a day reports the patient has not been taking her medications and has not been getting herself dressed as she typically has. She feels that this has been present for 2 to 3 days. Patient saidthat she was having abdominal pain intermitently for the last 4 days and was able to say it was in the right lower quadrant and she was concerned that it was appendicitis. sHe is not having the pain at this time. Patient been seen 4 months ago for confusion and was diagnosed with a urinary tract infection and given a single dose of fosfomycin. Caregiver and patient report no fever, cough, chest pain, shortness of breath, nausea, vomiting, diarrhea. No burning with urination. No lower extremity s welling Date of Illness / Injury: 01/02/24 What Led Patient to PT/OT: weakness Safety Assessment / Living Environment Home environment: Apartment Basic Home Layout Home layout: One level Entrance Stairs: No entrance stairs Bathroom Set up: Need to clarify Bedrooms/Bathrooms: Able to live on main level with bedroom/bathroom Mobility Equipment Mobility Equipment: Wheelchair, Walker Wheelchair Specifics: Manual wheelchair Support Support Person: Caregiver Amount of Support: Part-time assist Support Comment: patient reports 4 hr/day 6 days/wk and vague about the 7th day Prior Level of Function: General Prior Level of Function Comment: Concetta reports being independent with bed mobility and transfers to/from bed/wheelchair at baseline; walking with walker and caregiver in hallway for exercise, but using WC for mobility in home; caregivers for housekeeping, bathing, groceries Previous / Ongoing Services Previous / Ongoing Services: Need to clarify Medical/Surgical History: 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HCC); Basilar artery stenosis/occlusion with infarction (HCC-CMS); Decreased visual acuity; NSTEMI (non-ST elevated myocardial infarction) ([facility]); ARMD (age related macular degeneration); ARMD (age related macular degeneration); S/P coronary artery stent placement; ACC/AHA stage C heart failure with preserved ejection fraction ([facility]); Diabetes mellitus type 2, noninsulin dependent ([facility]); Chronic total occlusion of coronary artery; Dependence on wheelchair; Mixed incontinence; Muscle weakness (generalized); Prediabetes; Pure hypercholesterolemia, unspecified; Unspecified visual loss; Generalized weakness; Forehead laceration, initial encounter; Vomiting and diarrhea; Exu dative age-related macular degeneration of left eye ([facility]); Nystagmus; Dry eye; Perforated appendicitis; Intra-abdominal abscess ([facility]); CVD (cardiovascular disease) [I25.10]; and Acute appendicitis, unspecified acute appendicitis type on their problem list. 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 SURGICAL: The patient has a past surgical history that includes Colonoscopy (01/2007); Coronary angioplasty with stent (11/2021); and eye surgery. 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); ARMD (age related macular degeneration); S/P coronary artery stent placement; ACC/AHA stage C heart failure with preserved ejection fraction ([facility]); Diabetes mellitus type 2, noninsulin dependent ([facility]); Chronic total occlusion of coronary artery; Dependence on wheelchair; Mixed incontinence; Muscle weakness (generalized); Prediabetes; Pure hypercholesterolemia, unspecified; Unspecified visual loss; Generalized weakness; Forehead laceration, initial encounter; Vomiting and diarrhea; Exu dative age-related macular degeneration of left eye ([facility]); Nystagmus; Dry eye; Perforated appendicitis; Intra-abdominal abscess ([facility]); CVD (cardiovascular disease) [I25.10]; and Acute appendicitis, unspecified acute appendicitis type on their problem list. 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 SURGICAL: The patienthas a past surgical history that includes Colonoscopy (01/2007); Coronary angioplasty with stent (); and eye surgery. Arousal, Attention, and Cognition: General Assessment Arousal, Attention, and Cognition Comments: alert and oriented x 3 Following Commands: No problems noted Safety Awareness: Demonstrates decreased safety awareness Safety Awareness Comments: noted she did not think she had to use commode and was then incontinent of stool without apparent acknowledgement Behavioral Characteristics: Pleasant and cooperative Cardiopulmonary: Vital Signs Position/Activity: sitting Oxygen Saturation (SpO2): 92% Other: both before (1LO2/ after evaluation (no O2) Range of Motion and Joint Integrity: Range of Motion: UE/LE ROM WFL for purpose of evaluation/mobility Muscle Performance: Strength, Additional Comments: MMT WFL for purpose of evaluation suyapa UE/LE Sensation, Reflexes, and Nerve Integrity: Sensory Function Additional Comments: NT formally; did not appear to notice incontinence of stool until she noted odor 3-4 min after episode of incontinence Balance, Mobility, and Gait: Static Sitting Balance Static Sitting Balance: Fair (moderate risk for falls, difficulty with self-correction) Dynamic Sitting Balance Dynamic Sitting Balance: Fair (moderate risk for falls, difficulty with self-correction Static Standing Balance Static Standing Balance: Fair (patient able to maintain balance without handhold support, may require occasional minimal assistance Dynamic Standing Balance Dynamic Standing Balance: Not tested Mobility Comments: bed mobility from flat bed; modA 1 for supine to sit; CG sit to stand from bed; modA 1 sit to stand from WC; fast descent sit to stand into WC; verbal and tactile cuing for hand placement due to visual impairment General Mobility: Impaired Gait Gait with wheeled walker 4-5 steps, difficulty advancing R LE; verbal cuing/Rory Wheelchair Mobility/Parts Comments: WC mobility; patient able to use wheels to mobilize but tended to reach for objects to pull self along in room; I with changing directions and brake management Informed Consent: Informed Consent: The patient consented to the Physical Therapy evaluation. The patient agrees to and understands the Physical Therapy treatment plan and goals. Interventions Completed Today: Physical Therapy Today At: Time: 850 Total Treatment Time (minutes): 50 Timed Code Treatment Minutes: 20 Therapy Session: A recreation therapy teacher was present for the physical therapy session Interventions Included Procedures: Gait training Gait Training Minutes: 5 Gait Training 1: gait with wheeled walker with WC following; cuing for advancing LE; cuing for weightbearing through arms as able; patient with difficulty advancing R LE; episode of incontinence; returned to w/c and transferred to [facility]; nsg notified Interventions Included Procedures: Therapeutic activities Therapeutic Activities Minutes: 15 Therapeutic Activities 1: bed mobility with cuing to reach for grab bar; transfer sit to stand CG from bed with cuing for hand placement; cuing for toilet transfer with cuing for hand placement; modA2 sit to stand from WC with use of grab bar in bathroom and pushing from WC; did not transfer to toilet due to low height and level of assistance needed to stand from WC; Patient/Family Education: ASSESSMENT: The patient presents with a physical therapy diagnosis of: Impaired gait, Impaired mobility which is consistent with the medical diagnosis of: weakness Concetta is an 83 yo who is legally blind. She presents with weakness and difficulty with I bed mobility and transfers. She is below PLOF. She has limited caregiver support and given difficulty with mobility as well as current episodes of incontinence without ability for self care she runs risk of skin breakdown/infection without either increased caregiver support or MICAH stay to improve mobility. She prefers to go home; PT would recommend MICAH given safety concerns. Will continue to monitor progress during course of hospitalization. The patient's prior level of function was: modified independent with: 4 hour/day caregiver support Current status is: below prior level of function The patient's rehabilitation potential is: good due to: personal factors The patient is expected to achieve the following outcomes: independent bed mobility; bed to WC transfers Progress may be improved by the following patient strengths: previous level of function Progress may be affected by the following patient barriers: co-morbidities, vision, limited insightinto deficits Physical Therapy is medically necessary to: address these body structure/function impairments, activity limitations, and participation restrictions, establish and progress mobility/exercise and provide recommendations for staff and safe discharge planning, facilitate return to prior level of function, improve safety and independence, provide education in a home exercise program to address impairments in body functions and structures and promote increased activity and participation, provide family/caregiver education to assist the patient Physical Therapy will focus on: remediation and compensation Short-Term Goals: Time Frame: 10 days 01/15/24 Goal: I with bed mobility Status: Initiated Goal: I with bed to WC transfers and back Status: Initiated Goal: I with toilet/commode transfers Long-Term Goals: Goals: Not Applicable PLAN: Frequency: Daily, Times per week Times Per Week: 5 Intensity: 15-45 minutes Interventions May Include: Manual therapy, Gait training, Neuromuscular re- education, Therapeutic activities, Wheelchair management and training, Therapeutic exercise Patient/Family Education: Discharge planning, Patient education, Recommendations, Role of physical therapy/occupational therapy/rehabilitation, Safety Recommended Discharge Destination: Home with caregiver support/supervision, Subacute rehabilitation Recommended Discharge Destination Comments: if home with support would need increased caregiver support; strongly recommend MICAH at this point and will continue to monitor during hospital stay Recommended Discharge Services Therapy Specific Services: Physical therapy, Occupational therapy Next Session to Include: functional transfers; bed mobility; wc mobility; gait as appropriate Nancy Ramirez, PT 01/05/2024 10:44 * Michelle Galloway RN - 01/05/2024 0302 EDT Skin is intact Patient is A/Ox2 and blind Ambulates with walker and 2 person assist Lungs are diminished at bases, patient has occasional needs for supplemental 02 Patient is incontinent voiding No Complaints of pain. Patient compliant with orders, follows commands and is able to make needs known. All questions answered * Kirsten Lou DO - 01/04/2024 1514 EDT Daily Medicine Progress Note ? Pt name : Concetta Sullivan Date :01/04/2024 CC: Patient admitted for acute appendicitis on 01/01 to the surgical service. Per record- pt is very weak. Subjective: Patient states she is feeling a little tired. She denies pain today. No fevers. Vital Signs: BP 128/64 (BP Cuff Location: Right arm, BP Patient Position: Semi fowlers) Pulse 73 Temp 36.4 ??C (97.6 ??F) (Oral) Resp 16 Ht 167.6 cm (66) Wt 71.4 kg (157 lb 8 oz) SpO2 96% BMI 25.42kg/m?? Exam: Constitutional- Awake, NAD. Respiratory- Diminished bases. No respiratory distress or retractions. No use of accessory muscles. Cardiovacular- RRR, no m/g/r. No lower extremity peripheral edema. Gastrointestinal- Soft, ND. Improved abdominal tenderness. Musculoskeletal- Spine is straight, no gross joint deformities. Neck is supple. No cyanosis of nails. Neurologic- Nonfocal. Cranial nerves 2-12 grossly intact. Moves extrem symetrically. Skin- Warm, dry, well perfused, normal texture. Skin breakdown: No breakdown Psychiatric- Normal speech pattern and thought process. Appears euthymic. Insight intact. oriented to person, place, and time. Data review: I personally reviewed the patient's labs, pertinent imaging, microbiology. CBC: Recent Labs 01/04/24 0642 WBC 10.89 HGB 11.2* HCT 33.1* MCV 94 PLT 216 BMP: Recent Labs 01/04/24 0642 NA 137 K 3.8 CL 109 CO2 22 BUN 21 CREATININE 0.90 MG 1.9 CALCIUM 8.4* SERGLU 141* LFTs: Recent Labs 01/02/24 1303 ALT 30 AST 25 ALKPHOS 88 TBIL 0.8 TP 6.0* LABALBU 3.1* ? Assessment: 83-year-old female admitted for acute appendicitis. Patient with with a history of type2 diabetes, coronary artery disease, stroke, hypertension, heart failure with preserved ejection fraction admitted for acute appendicitis with possible perforation. Plan: 1. Hypertension-continue carvedilol, ARB 2. Heart failure with preserved ejection fraction-the patient is not on any diuretic, continue to monitor volume status closely 3. Hypothyroidism-continue levothyroxine 4. Coronary artery disease-continue aspirin, statin 5. Perforated appendicitis-management per surgery. Continue Zosyn. Patient was stratified for surgical complications on 01/01. Please see consultation by Dr. Veloz. 6. GERD-continue PPI 7. Type 2 diabetes mellitus, diet controlled-monitor the patient's blood sugar closely, for now hold off on any sliding scale insulin. 8. Acute hypoxic respiratory failure-patient had oxygen placed while sleeping. She is now weaned back to room air, continue to monitor closely. Should she need any further oxygen therapy would have alow threshold for chest x-ray. 9. Generalized weakness and gait instability-PT eval ordered. May need MICAH Ppx: Lovenox Code: Reviewed COLST, patient is a DNR/DNI. Dispo: Per surgery Hospitalist medicine will sign off as the patient's chronic medical conditions are stable at this time. Please not hesitate to call for any acute issues. Case was discussed today with Dr. Hazel 35 minutes of time was spent today with more than 50% of that time spent on counseling and coordination of care. * Jessica Grant - 01/04/2024 1446 EDT Case Management Progress Note: Level of Care: Acute. Discharge Plan/Estimated Date of Discharge: Home with [facility]. BON this or Sunday. Insurance/Payor Source: Medicare ACO and [facility]. Barriers to Discharge: IV antibiotics. Support Network: Caregiver, Salome (comes Sunday through Sunday for a few hours each day). Niece, Padmini ([place]). Daughter, FEDE Polo. MOHernandez. Transportation: Caregiver, Salome. Continued Planning: Prior to admission, patient was getting help from caregiver with bathing, dressing, medication management, food prep, and cleaning. She can assist with her ADLs, but is legally blind. Uses a wheelchair. CM will continue to follow. * Danyelle Hazel MD - 01/04/2024 0816 EDT Surgery Progress Note Service Date: 01/04/2024 Admit Date: 01/02/2024 12:23 Hospital day #2 24 Hour Events: None Subjective/Objective Subjective Patient states she is feeling better. She is tolerating a diet and having less pain Objective Vital Signs Temp: [36.5 ??C (97.7 ??F)-37.3 ??C (99.1 ??F)] , Heart Rate: [77 BPM] , Pulse: --, Pulse From Oximetry: [67 BPM-81 BPM] , Resp: [18-20] , BP: (128-166)/(54-73) , SpO2: [92 %] Physical Exam General Appearance: alert, cooperative, fatigued Lung: clear to auscultation bilaterally, however decreased at the bases Heart: regular rate and rhythm Abdomen: She has good bowel sounds, she is distended but soft. She has point tenderness at McBurney's point. However this has improved compared to yesterday Extremities: Warm and well perfused, mild edema Results for orders placed or performed during the hospital encounter of 01/02/24 (from the past 24 hour(s)) BASIC METABOLIC PANEL (BMP) Result Value Ref Range Sodium 137 136 - 145 mmol/L Potassium 3.8 3.5 - 5.0 mmol/L Chloride 109 96 - 110 mmol/L CO2 Total 22 22 - 32 mmol/L Anion Gap 6 5 - 14 mmol/L Glucose 141 (H) 70 - 99 mg/dl Calcium 8.4 (L) 8.5 - 10.5 mg/dL BUN 21 10 - 26 mg/dL Creatinine 0.90 0.52 - 1.04 mg/dL eGFR 63 >60 mL/min/1.73m2 COMPLETE BLOOD COUNT AND DIFFERENTIAL Result Value Ref Range WBC 10.89 4.00 - 12.40 K/cmm RBC 3.52 (L) 3.86 - 5.04 M/cmm Hemoglobin 11.2 (L) 11.6 - 15.2 g/dL HCT 33.1 (L) 34.9 - 44.4 % MCV 94 81 - 98 fL MCH 31.8 26.7 - 33.3 pg MCHC 33.8 32.1 - 35.9 g/dL RDW-CV 13.5 <14.7 % RDW-SD 46.5 <50.4 fl PLT 216 141 - 377 K/cmm MPV 9.7 9.5 - 12.7 fL % Neutrophils 78.4 % % Lymphocytes 8.0 % % Monocytes 10.6 % % Eosinophils 1.4 % % Basophils 0.5 % % Immature Grans 1.1 % Absolute Neutrophils 8.55 2.20 - 8.85 K/cmm Absolute Lymphocytes 0.87 (L) 1.09 - 3.30 K/cmm Absolute Monocytes 1.15 (H) 0.10 - 0.80 K/cmm Absolute Eosinophils 0.15 0.03 - 0.61 K/cmm ABS Basophils 0.05 0.01 - 0.11 K/cmm Absolute Immature Grans 0.12 (H) 0.00 - 0.06 K/cmm Type of Differential: Auto MAGNESIUM Result Value Ref Range Magnesium 1.9 1.7 - 2.8 mg/dL Lab Results Component Value Date/Time BUN 21 01/04/2024 06:42 CREATININE 0.90 01/04/2024 06:42 Assessment 83 y.o. female with history of coronary artery disease, CHF presenting with perforated appendicitisand a small intra-abdominal abscess. This is being treated with IV antibiotics at this point in time. However the patient has significant weakness as a result of this infection Plan Principal Problem: Perforated appendicitis Active Problems: Intra-abdominal abscess ([facility]) CVD (cardiovascular disease) [I25.10] Acute appendicitis, unspecified acute appendicitis type From the standpoint of her perforated appendicitis and small intra-abdominal abscess the patient continues to slowly improve. I do think she is responding to antibiotics. There is no sign that her abscess is increasing or worsening, potentially requiring IR drainage. In this regard the patient would likely be transition to oral antibiotics and possibly be ready fordischarge within the next day or 2. However more concerning is the patient's weakness. I helped the nurse move the patient from her bedto a chair. She definitely required both close to assist in this process. The patient would not be able to do this at home on her own. Therefore I think she will need physical therapy evaluation for home safety eval. I know the patient is fiercely dependent but I have spoken with her and think rehab would be prudent. Will also consult social work to help with placement. I spoke to the patient's daughter Melani and updated her about her mom's status and my concerns about her abilities to be at home alone Dr. Rich will be covering for the weekend VTE Prophylaxis Pharmacologic Prophylaxis: Enoxaparin (Lovenox) 40 mg SQ daily Discharge Plan [facility] facility/Subacute rehab Danyelle Hazel MD 01/04/2024 8:17 * Michelle Galloway RN - 01/04/2024 0211 EDT Data: Assumed care of pt. At 1900. Pt. Reports no pain, no chest pain, no SOB, no dizziness, no N/V. Patient incontinent. Patient removed IV by accident. Patient compliant and follows order Action: MD notified. New IV placed. Patient tolerating IV Fluids Response: Pt. A/Ox3. Bed alarm activated for safety. Patient comfortable and all questions answered. * Kirsten Lou DO - 01/03/2024 1410 EDT Daily Medicine Progress Note ? Pt name : Concetta Sullivan Date :01/03/2024 CC: Patient admitted for acute appendicitis on 01/01 to the surgical service. Medicine was consulted for risk stratification for surgery. Last night the patient was put on some supplemental oxygen Subjective: Patient states she is feeling a little tired. She does not usually need oxygen. She denies any cough or shortness of breath. No fevers or chills. Vital Signs: BP (!) 154/70 (BP Cuff Location: Left arm, BP Patient Position: Semi fowlers) Pulse 73 Temp 37.7 ??C (99.8 ??F) (Oral) Resp 16 Ht 167.6 cm (66) Wt 71.4 kg (157 lb 8 oz) SpO2 91% BMI 25.42 kg/m?? Exam: Constitutional- Awake, NAD. Respiratory- Diminished bases. No respiratory distress or retractions. No use of accessory muscles. Cardiovacular- RRR, no m/g/r. No lower extremity peripheral edema. Gastrointestinal- Soft, ND. Right lateral abdominal tenderness present. Musculoskeletal- Spine is straight, no gross joint deformities. Neck is supple. No cyanosis of nails. Neurologic- Nonfocal. Cranial nerves 2-12 grossly intact. Moves extrem symetrically. Skin- Warm, dry, well perfused, normal texture. Skin breakdown: No breakdown Psychiatric- Normal speech pattern and thought process. Appears euthymic. Insight intact. oriented to person, place, and time. Data review: I personally reviewed the patient's labs, pertinent imaging, microbiology. CBC: Recent Labs 01/03/24 0653 WBC 11.89 HGB 12.0 HCT 35.3 MCV 94 PLT 239 BMP: Recent Labs 01/03/24 0653 NA 137 K 4.3 CL 107 CO2 24 BUN 24 CREATININE 0.80 CALCIUM 8.7 SERGLU 148* LFTs: Recent Labs 01/02/24 1303 ALT 30 AST 25 ALKPHOS 88 TBIL 0.8 TP 6.0* LABALBU 3.1* ? Assessment: 83-year-old female admitted for acute appendicitis. Patient with with a history of type2 diabetes, coronary artery disease, stroke, hypertension, heart failure with preserved ejection fraction admitted for acute appendicitis with possible perforation. Plan: 1. Hypertension-continue carvedilol, ARB 2. Heart failure with preserved ejection fraction-the patient is not on any diuretic, continue to monitor volume status closely 3. Hypothyroidism-continue levothyroxine 4. Coronary artery disease-continue aspirin, statin 5. Perforated appendicitis-management per surgery. Continue Zosyn. Patient was stratified for surgical complications on 01/01. Please see consultation by Dr. Veloz. 6. GERD-continue PPI 7. Type 2 diabetes mellitus, diet controlled-monitor the patient's blood sugar closely, for now hold off on any sliding scale insulin. 8. Acute hypoxic respiratory failure-patient had oxygen placed while sleeping. She is now weaned back to room air, continue to monitor closely. Should she need any further oxygen therapy would have alow threshold for chest x-ray. Ppx: Lovenox Code: Reviewed COLST, patient is a DNR/DNI. Will update CODE STATUS as it is currently listed as full. Dispo: Per surgery 35 minutes of time was spent today with more than 50% of that time spent on counseling and coordination of care. * Gaby Wagoner, JOHN - 01/03/2024 1228 EDT Dietitian Inpatient Assessment Reason for Assessment: Trigger on admission screen for unplanned weight loss. S: Patient reports good tolerance of breakfast this morning. Participating in menu selections. Feeling sleepy and wanting to take a nap. 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 Recent weight changes: Weights Filed This Admission 01/02/24 1150 01/02/241957 Weight: 69.4 kg (153 lb) 71.4 kg (157 lb 8 oz) Wt Readings from Last 10 Encounters: 01/02/24 71.4 kg (157 lb 8 oz) 11/22/23 68.9 kg (152 lb) 08/21/23 68.9 kg (152 lb) 07/10/23 68.9 kg (152 lb) 01/31/23 72.1 kg (159 lb) 08/03/22 72.1 kg (159 lb) 04/10/22 72.1 kg (159 lb) 02/21/22 72.3 kg (159 lb 8 oz) 01/09/22 68 kg (150 lb) 12/26/21 68.5 kg (151 lb) . Significant Laboratory Data: Lab Results Component Value Date/Time WBC 11.89 01/03/2024 06:53 HGB 12.0 01/03/2024 06:53 HCT 35.3 01/03/2024 06:53 MCV 94 01/03/2024 06:53 NA 137 01/03/2024 06:53 K 4.3 01/03/2024 06:53 CO2 24 01/03/2024 06:53 CL 107 01/03/2024 06:53 BUN 24 01/03/2024 06:53 CREATININE 0.80 01/03/2024 06:53 SERGLU 148 (H) 01/03/2024 06:53 CALCIUM 8.7 01/03/2024 06:53 MG 1.9 11/17/2021 06:39 Lab Results Component Value Date/Time HGBA1C 6.4 (H) 11/22/2023 11:34 HGBA1C 6.3 (H) 07/16/2023 08:48 GLUCOSEPOC 202 (H) 08/21/2023 09:56 GLUCOSEPOC 208 (H) 08/21/2023 09:47 GLUCOSEPOC 133 (H) 11/17/2021 12:11 GLUCOSEPOC 146 (H) 11/17/2021 08:03 GLUCOSEPOC 165 (H) 11/16/2021 20:22 Lab Results Component Value Date/Time [id number] 08/30/2023 10:53 VITD 29 (L) 11/22/2023 11:34 No results found for: IRON, TIBC, FERRITIN Skin status and other: No noted skin breakdown per [facility] Skin Assessment 01/01 Nutritionally significant medications: Scheduled aspirin chewable, 81 mg, DAILY atorvastatin, 40 mg, QHS carvedilol, 3.125 mg, BID (BREAKFAST/DINNER) enoxaparin, 40 mg, DAILY irbesartan, 75 mg, DAILY levothyroxine, 100 mcg, DAILY BEFORE BREAKFAST pantoprazole, 40 mg, DAILY Or pantoprazole, 40 mg, DAILY piperacillin-tazobactam, 3.375 g, Q6H polyethylene glycol 3350, 17 g, DAILY Continuous PRN acetaminophen, 650 mg, Q4H PRN Or acetaminophen, 650 mg, Q4H PRN HYDROmorphone (PF), 0.2-0.4 mg, Q3H PRN ibuprofen, 400 mg, Q6H PRN ondansetron (PF), 4 mg, Q6H PRN Diet order: Consistent Carbohydrate Diet Nutrition Risk Level: Minimal (3) A: Pt is 83 y.o. female admitted with perforated appendicitis and small associated abscess. RD Malnutrition Assessment No evidence of malnutrition at this time. No evidence of recent weight loss. Patient appears well nourished. Has a caregiver for a few hours each day from Sunday-Sunday. Caregiver helps with food prep and patient also has MOW. Noted with insufficient Vitamin D level per lab on 11/22/23. Taking Vitamin D supplementation per home med list. Recommend resume during admission. Hx of Type 2 DM. Appears well controlled. No indication for diet education at this time. Patient to continue on IV antibiotics and. On miralax for bowel regimen. Determined to be a low (minimal) nutritional complexity given no acute nutrition needs identified. P: -Continue Consistent Carbohydrate Diet as ordered -Daily visits for menu assist -Resume home Vitamin D supplement -No further clinical nutrition intervention indicated unless status changes. Will follow-up in 7 days if remains inpatient. Gaby Wagoner MS, RD, CD, CNSC * Jessica Grant - 01/03/2024 1154 EDT Initial Case Management/Social Work Assessment and Discharge Plan/Readmission Risk Assessment REASON FOR ADMISSION: Perforated appendicitis Patient understands reason for admission: Yes PATIENT INFO VERIFIED: PCP, Address, Contact Info Type of housing (single family, condo, apartment, shelter, single room occupancy, [facility] funded hotel room, group custodial) - Apartment, first floor Who does the patient live with? Single Does the patient have access to their own bedroom/bathroom/kitchen - or is it shared with others? Own Name of housing complex (ex [facility], [facility], etc)- n/a Housing Authority/Managing Organization - n/a Community Care Providers (field case manager, [facility] nurse, etc) name and contact information- n/a LIVING ARRANGEMENTS AND ACCESSIBILITY ISSUES: Living Arrangements: Alone, Apartment Levels: 1 Stairs to enter: 0 Handicap access: Ramp Bathroom located on bedroom level?: Yes What in home social supports are available to the patient? Home care staff Is 24/7 care available? No ADVANCED DIRECTIVES, POA &/or COLST IN PLACE: Healthcare Directive: No, patient does not have advance directive for healthcare treatment Information Provided on Healthcare Directives: No Information on Healthcare Directives Requested: No DIRECTIVES FOR FINANCES: Directive For Finances: No TRANSPORTATION: Transportation: Family Does the patient need discharge transport arranged?: No Expected Discharge on IV Antibiotics: No Patient expects to be discharged to: Home CULTURAL, ADVENTIST and/or LANGUAGE factors affecting health care/discharge planning: Spiritual/Cultural Requests: None Language/Literacy Needs Do you need us to provide any communication aids or devices?: No Insurance Information: Medical Insurance: Yes Type of insurance: Medicare, Supplemental plan to Medicare Medicare type: A, B Supplemental: [facility] Referred to patient financial services: No Nutrition: DISCHARGE RISK ASSESSMENT: Lives at home with limited or no community support;Requires assistance with medication management;Requires assistance with ADLs/IADLs Total # selected above: Score of 2 - 4: This patient is at MODERATE RISK for re-hospitalization Tentative plan to address the risk of re-hospitalization for those at HIGH MODERATE RISK: Refer to skilled home care services RAPT TOOL: Age: >75 Gender: Female Ambulation distance: Housebound most of the time Gait device: Crutch/Walker Community Services: Two or more times a week Will you live with someone who will care for you?: No RAPT Tool Score: 1 Patient expects to be discharged to: Home SBIRT: FUNCTIONAL STATUS: Activities patient requires assistance: Bathing, Dressing, Food preparation/shopping, Taking Medications Assistive Devices: Wheelchair COMMUNITY RESOURCES/SUPPORTS: Primary Care Provider: Nivia Tinsley PCP Verified: Specialists: Other (opthalmology) Type of Home Health Services: Home health aide, Housekeeping DME Provider: Pharmacy: [id number] [address] Home Health: Other: [facility] TRANSITION PLAN: Patient confirmed demographics, contacts, PCP, and pharmacy. No advance directive and no interest at this time. She lives in a first floor apartment by herself. There is a ramp to enter. She has a caregiver who comes in Sunday through Sunday for a few hours each day. She helps with bathing, dressing, medication management, food prep, and cleaning. She has MOWs. Patient can assist with ADLs, but is legally blind and needs the assistance. 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 She uses a wheelchair at baseline. No other DME. She would benefit from [facility] support. Her daughter, Melani, lives in [place]. Son, Lane, in [place]. Niece, Padmini, in [place]. She is anticipated to be medically ready in a few days. Her caregiver will transport. CM will continue to follow. JESSICA GRANT 01/03/2024 11:54 * Danyelle Hazel MD - 01/03/2024 0759 EDT Surgery Progress Note Service Date: 01/03/2024 Admit Date: 01/02/2024 12:23 Chief Complaint: confusioin 24 Hour Events: No issues Subjective/Objective Subjective Patient has no complaints of abdominal pain at this time voiding. Although she does not understand why she is in the hospital does not recall my conversation with her yesterday. But she is aware thatshe has appendicitis. She tolerated p.o. diet without much difficulty Objective Vital Signs Temp: [36.4 ??C (97.6 ??F)-37.7 ??C (99.8 ??F)] , Heart Rate: [54 BPM-106 BPM] , Pulse: [71-76] , Pulse From Oximetry: [71 BPM-106 BPM] , Resp: [12-20] , BP: (98-195)/(48-103) , SpO2: [90 %-97 %] Physical Exam General Appearance: alert, cooperative, no distress Lung: clear to auscultation bilaterally Heart: regular rate and rhythm Abdomen: Mildly distended but soft with good bowel sounds. No specific point tenderness At McBurneys point Extremities: Warm and well perfused, mild edema Results for orders placed or performed during the hospital encounter of 01/02/24 (from the past 24 hour(s)) COMPLETE BLOOD COUNT AND DIFFERENTIAL Result Value Ref Range WBC 10.60 4.00 - 12.40 K/cmm RBC 4.01 3.86 - 5.04 M/cmm Hemoglobin 12.9 11.6 - 15.2 g/dL HCT 38.0 34.9 - 44.4 % MCV 95 81 - 98 fL MCH 32.2 26.7 - 33.3 pg MCHC 33.9 32.1 - 35.9 g/dL RDW-CV 13.7 <14.7 % RDW-SD 48.3 <50.4 fl PLT 234 141 - 377 K/cmm MPV 9.7 9.5 - 12.7 fL % Neutrophils 79.9 % % Lymphocytes 7.4 % % Monocytes 9.0 % % Eosinophils 2.5 % % Basophils 0.3 % % Immature Grans 0.9 % Absolute Neutrophils 8.48 2.20 - 8.85 K/cmm Absolute Lymphocytes 0.78 (L) 1.09 - 3.30 K/cmm Absolute Monocytes 0.95 (H) 0.10 - 0.80 K/cmm Absolute Eosinophils 0.26 0.03 - 0.61 K/cmm ABS Basophils 0.03 0.01 - 0.11 K/cmm Absolute Immature Grans 0.10 (H) 0.00 - 0.06 K/cmm Type of Differential: Auto COMPREHENSIVE METABOLIC PANEL (CMP) Result Value Ref Range Sodium 136 136 - 145 mmol/L Potassium 4.3 3.5 - 5.0 mmol/L Chloride 102 96 - 110 mmol/L CO2 Total 23 22 - 32 mmol/L Glucose 141 (H) 70 - 99 mg/dl BUN 25 10 - 26 mg/dL Creatinine 0.72 0.52 - 1.04 mg/dL eGFR 82 >60 mL/min/1.73m2 Total Protein 6.0 (L) 6.3 - 8.2 g/dL Albumin 3.1 (L) 3.4 - 4.9 g/dL Alkaline Phosphatase 88 38 - 126 U/L AST 25 15 - 46 U/L ALT 30 <35 U/L Bilirubin, Total 0.8 <1.4 mg/dL Calcium 9.3 8.5 - 10.5 mg/dL Albumin/Globulin Ratio 1.1 1.0 - 2.5 Anion Gap 11 5 - 14 mmol/L C REACTIVE PROTEIN Result Value Ref Range C-Reactive Protein 62.7 (H) <10.0 mg/L HOLD GREEN TOP Result Value Ref Range Hold Hold HOLD BLUE TOP Result Value Ref Range Hold Hold UA SEDIMENT + REFLEX TO CULTURE Specimen: Urine, Catheterized (straight) Result Value Ref Range Urine RBC Count, Manual 0 - 2 0 - 2 Cells/HPF Urine WBC Count 0 - 3 0 - 3 Cells/HPF Urine Squamous Count, Manual Many (A) None Seen Cells/HPF Urine Hyaline Cast Count, Manual <=10 <=10 Casts/LPF Urine Bacteria Count, Manual None Seen None Seen Bacteria/HPF BASIC METABOLIC PANEL (BMP) Result Value Ref Range Sodium 137 136 - 145 mmol/L Potassium 4.3 3.5 - 5.0 mmol/L Chloride 107 96 - 110 mmol/L CO2 Total 24 22 - 32 mmol/L Anion Gap 6 5 - 14 mmol/L Glucose 148 (H) 70 - 99 mg/dl Calcium 8.7 8.5 - 10.5 mg/dL BUN 24 10 - 26 mg/dL Creatinine 0.80 0.52 - 1.04 mg/dL eGFR 72 >60 mL/min/1.73m2 COMPLETE BLOOD COUNT AND DIFFERENTIAL Result Value Ref Range WBC 11.89 4.00 - 12.40 K/cmm RBC 3.76 (L) 3.86 - 5.04 M/cmm Hemoglobin 12.0 11.6 - 15.2 g/dL HCT 35.3 34.9 - 44.4 % MCV 94 81 - 98 fL MCH 31.9 26.7 - 33.3 pg MCHC 34.0 32.1 - 35.9 g/dL RDW-CV 13.7 <14.7 % RDW-SD 46.7 <50.4 fl PLT 239 141 - 377 K/cmm MPV 10.0 9.5 - 12.7 fL % Neutrophils 80.1 % % Lymphocytes 7.5 % % Monocytes 9.3 % % Eosinophils 1.9 % % Basophils 0.3 % % Immature Grans 0.9 % Absolute Neutrophils 9.52 (H) 2.20 - 8.85 K/cmm Absolute Lymphocytes 0.89 (L) 1.09 - 3.30 K/cmm Absolute Monocytes 1.11 (H) 0.10 - 0.80 K/cmm Absolute Eosinophils 0.22 0.03 - 0.61 K/cmm ABS Basophils 0.04 0.01 - 0.11 K/cmm Absolute Immature Grans 0.11 (H) 0.00 - 0.06 K/cmm Type of Differential: Auto Lab Results Component Value Date/Time BUN 24 01/03/2024 06:53 CREATININE 0.80 01/03/2024 06:53 Assessment 83 y.o. female with history of coronary artery disease diabetes presents with perforated appendicitis and a small abscess Plan Principal Problem: Perforated appendicitis Active Problems: Intra-abdominal abscess (HCC-CMS) CVD (cardiovascular disease) [I25.10] Acute appendicitis, unspecified acute appendicitis type The patient's physical exam is stable. She still remains tender in the right lower quadrant. However interestingly when she palpates the area she is not very uncomfortable. Her white blood cell countremains normal and she is afebrile Continue IV antibiotics for now. I will start the patient on a dose of MiraLAX daily for bowel meds Patient was placed on oxygen overnight for mild desaturation. Will try to wean resolved during the day Very much appreciate consultation by Dr. Veloz. She states the patient does have increased risk for surgical intervention. This will require significant consideration and interval appendectomy is appropriate VTE Prophylaxis Pharmacologic Prophylaxis: Enoxaparin (Lovenox) 40 mg SQ daily Discharge Plan Home or self care perhaps in 2-3 days Danyelle Hazel MD 01/03/2024 7:59 * Michelle Galloway RN - 01/03/2024 0207 EDT Data: Assumed care of pt. At 2035. Pt. Reports no pain, no chest pain, no SOB, no dizziness, no N/V. Patient incontinent purewick in place. Pt on continuous pulse ox desats at night. Patient compliant Action: Scheduled medication administered per orders (see emar). NC @ 3L Response: Pt. A/Ox3. Hourly rounding for safety. Bed alarm activated for safety. Patient comfortable and all questions answered. * Michelle Galloway RN - 01/02/2024 2304 EDT FOUR EYES SKIN ASSESSMENT Four Eyes skin assessment was performed on admission to the unit by Michelle Galloway RN and Gaby Chen RN. Patient has the following devices at the time of this assessment: none . Device related pressure injury present? No All skin intact verified by: Michelle Galloway RN. Last Binu Score: 18 Instructions: Add LDA for any identified wounds Add [place] image for any suspected PI or non surgical wounds Order wound consult if suspected PI identified If Binu is < or = to 16, initiate Pressure Injury Prevention Bundle ([id number]). 01/02/2024 23:05 documented in this encounter H&P Notes * Danyelle Hazel MD - 01/02/2024 1508 EDT History & Physical Chief Complaint: Chief Complaint Patient presents with Altered Mental Status Dysuria Unable to void fully. Intermittent confusion since last week. Tired. Seen at clinic and suggested to come and get UTI ruled out. HPI: 83 y.o.female presents with 2 days of confusion. She lives by herself but is accompanied by a small animal caretaker who helps her for 4 hours every day. The small animal caretaker states she has been complaining of abdominal pain and this seemed confused to her for the last few days. The patient has a history of urinary tract infections will often become confused when these form. The small animal caretaker, Salome had taken her to her primary care physician's office. However the patient was not able to produce a urine sampleand recommend she go up to the hospital. She was found to have abdominal discomfort and underwent aCAT scan that reveals a perforated appendix with a small abscess. The patient states her pain started on Sunday and in fact was a little worse on Sunday or Sunday and then seem to improve. 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 Tapia and declines further testing CORONARY ANGIOPLASTY WITH STENT PLACEMENT 11/2021 LAD PCI. LCX DIRECTOR SUPPLY w/ R-L collaterals EYE SURGERY Medications: piperacillin-tazobactam, 4.5 g, Now Prior to Admission medications Medication Sig Start Date End Date Taking? Authorizing Provider aspirin chewable 81 mg tablet CHEW AND SWALLOW 1 TABLET BY MOUTH ONCE DAILY 08/01/23 Nivia Tinsley MD atorvastatin (LIPITOR) 40 mg tablet Take 1 Tablet by mouth at bedtime. 11/14/23 Nivia Tinsley MD carvedilol (COREG) 3.125 mg tablet Take 1 Tablet by mouth 2 times daily with breakfast and dinner. 10/11/23 Dianna Flowers MD cholecalciferol (VITAMIN D3) 1,250 mcg (50,000 unit) capsule Take 1 Capsule by mouth once a week. For 12 weeks Patient not taking: Reported on 12/26/2023 11/22/23 Nivia Tinsley MD cholecalciferol, Vitamin D3, 25 mcg (1,000 unit) tablet Take 1 Tablet by mouth daily. 04/28/22 Anahi Jules MD cyanocobalamin (VITAMIN B-12) 1,000 mcg tablet Take 1 Tablet by mouth daily. 08/31/23 Nivia Tinsley MD ezetimibe (ZETIA) 10 mg tablet Take 1 Tablet by mouth daily. 12/14/23 Dianna Flowers MD hypromellose (ISOPTO TEARS) 0.5 % ophthalmic solution Place 1 Drop into both eyes as needed. Anahi Jules MD ibuprofen (MOTRIN) 400 mg tablet Take 1 Tablet by mouth 2 times daily as needed for Pain. 11/22/23 Nivia Tinsley MD levothyroxine (SYNTHROID) 100 mcg tablet Take 1 Tablet by mouth daily. 10/09/23 Nivia Tinsley MD losartan (COZAAR) 100 mg tablet 1 tab(s) orally once a day 11/06/23 Nivia Tinsley MD medical supply, miscellaneous (WALKER WHEELS ACCESSORY MISC) with seat, basket under the seat and breaks as directed dx: Abnormal gait and legally blind daily 07/13/17 Anahi Jules MD gpllgxjy-oxhuvhtbr-gqltqdpbzgzgb (MAXITROL) 3.5mg/mL-10,000 unit/mL-0.1 % ophthalmic suspension INSTILL 1 DROP TO BOTH EYES THREE TIMES A DAY Patient not taking: Reported on 12/26/2023 01/19/23 Anahi Jules MD nitroglycerin (NITROSTAT) 0.[address] 1 Tablet under the tongue every 5 minutes as needed for Chest Pain. 03/14/22 Nivia Tinsley MD triamcinolone (KENALOG) 0.1 % cream Apply topically to affected area 2 times daily. For up to 2 weeks to rash on legs and neck. Do not apply to face, armpit or groin. 08/28/23 Nivia Tinsley MD vit A,C & R-htqrxc-cajvltqw (OCUVITE) 300 mcg-200 mg-27 mg-2 mg tablet Take 1 tab by mouth daily 10/16/23 Nivia Tinsley MD Allergies: Adhesive tape-silicones, Bupivacaine, Enalapril, Other - see comments, Silicone, and Simvastatin Social History: Social History Socioeconomic History Marital status: Single Spouse name: Not on file Number of children: 2 Years of education: [employer] Early Education Highest education level: Bachelor's degree (e.g., BA, AB, BS) Occupational History Occupation: retired Tobacco Use Smoking status: Never Smokeless tobacco: Never Substance and Sexual Activity Alcohol use: Yes Comment: sips here and there Drug use: Never Sexual activity: Not Currently Other Topics Concern Not on file Social History Narrative Not on file Social Determinants of Health Financial Resource Strain: Low Risk (01/31/2023) Overall Financial Resource Strain (CARDIA) Difficulty of Paying Living Expenses: Not hard at all Food Insecurity: No Food Insecurity (01/31/2023) Hunger Vital Sign Worried About Running Out of Food in the Last Year: Never true Ran Out of Food in the Last Year: Never true Transportation Needs: No Transportation Needs (01/31/2023) PRAPARE - Transportation Lack of Transportation (Medical): No Lack of Transportation (Non-Medical): No Physical Activity: Not on file Stress: Not on file Social Connections: Not on file Housing Stability: Low Risk (01/31/2023) Housing Stability Vital Sign Unable to Pay for Housing in the Last Year: No Number of Places Lived in the Last Year: 1 Unstable Housing in the Last Year: No Family History: Family History Problem Relation Age of Onset Mental Illness Mother Suicide Mother Early Mother 46 committed suicide at 46y/o Unknown Father at 94y/o Hypertension Sister Heart Surgery Sister Arthritis-Osteo Sister Lung Cancer Sister Brain Aneurysm Brother Early Brother Stomach Cancer Maternal Grandmother Unknown Maternal Grandfather Unknown Paternal Grandmother Unknown Paternal Grandfather Breast Cancer Sister Cataract Sister Cancer Sister metastatic Lung Cancer Sister Hypertension Brother Arthritis-Osteo Brother Diabetes Brother Heart Surgery Brother Albinism Brother Heart Surgery Brother Blindness Brother Diabetes Brother Alcohol Abuse Brother Hypertension Son Obesity Son No Known Daughter ROS: The patient is not the most reliable historian. But she does not report any heart or lung issues. She overall states she does not take any medications. (However her history does suggest undergoing previous stent placement or coronary disease) she claims she does not take any medications. At home she mostly uses a wheelchair and lives in low income apartment. She has help with the housework and also has food delivered to her house and therefore is not very The remainder review of systems is essentially all negative and she denies any other health issues OBJECTIVE: VS: Blood pressure 98/56, pulse 71, temperature 36.4 ??C (97.6 ??F), temperature source Oral, resp.rate 12, height 165.1 cm (65), weight 69.4 kg (153 lb), SpO2 93 %. Physical Exam Constitutional: General: She is not in acute distress. Appearance: Normal appearance. She is obese. She is not ill-appearing. HENT: Head: Normocephalic and atraumatic. Eyes: Comments: She wears glasses Cardiovascular: Rate and Rhythm: Normal rate and regular rhythm. Pulmonary: Breath sounds: Normal breath sounds. Abdominal: General: There is no distension. Palpations: Abdomen is soft. Tenderness: There is abdominal tenderness in the right lower quadrant. Negative signs include Rovsing's sign and McBurney's sign. Comments: Good bowel sounds Musculoskeletal: Cervical back: Normal range of motion. Comments: 1+ pitting edema of her shins Lymphadenopathy: Cervical: No cervical adenopathy. Labs: Lab Results Component Value Date RBC 4.01 01/02/2024 HGB 12.9 01/02/2024 HCT 38.0 01/02/2024 MCV 95 01/02/2024 PLT 234 01/02/2024 WBC 10.60 01/02/2024 LYMPHOPCT 7.4 01/02/2024 LABMONO 9.0 01/02/2024 EOSPCT 2.5 01/02/2024 BASOPCT 0.3 01/02/2024 Lab Results Component Value Date NA 136 01/02/2024 K 4.3 01/02/2024 CL 102 01/02/2024 CO2 23 01/02/2024 SERGLU 141 (H) 01/02/2024 BUN 25 01/02/2024 CREATININE 0.72 01/02/2024 CALCGFR 82 01/02/2024 TP 6.0 (L) 01/02/2024 LABALBU 3.1 (L) 01/02/2024 ALKPHOS 88 01/02/2024 AST 25 01/02/2024 ALT 30 01/02/2024 TBIL 0.8 01/02/2024 CALCIUM 9.3 01/02/2024 ANIONGAP 11 01/02/2024 Imaging: I reviewed her CT scan with radiology. This shows a swollen appendix with a 1 by nearly 3 cm long abscess adjacent to the appendix. This is adherent to the terminal ileum with some surrounding inflammation consistent with perforated appendix with a small abscess just under 3 cm in size ASSESSMENT Pt is a 83 y.o. female presents with perforated appendicitis, 4 days in duration and a small associated abscess.. PLAN: I discussed with the patient and her caregiver that she does indeed have perforated appendicitis with a small abscess. This is best treated with antibiotics and generally an abscess of the size responds well to antibiotics alone. However if the abscess enlarges and she does not improve clinically may require drainage by interventional radiology. The patient was given a dose of Zosyn here in the emergency room. I think that is a reasonable medication to continue. I would appreciate a consultation by the medical team for an assessment of her medical and cardiac status. She may eventually need an interval appendectomy. I have called the patient's daughter, Melani, at [phone] and informed her of her mother status. We appreciate the opportunity to participate in this patient's care. Danyelle Hazel MD 01/02/24 15:09 documented in this encounter Consult Notes * Salome Veloz MD - 01/02/2024 1501 EDTAssociated Order(s): CONSULT HOSPITALIST Inpatient Consult Note Admit Date: 01/02/2024 Date of Service: 01/02/2024 Requesting Physician: Dr Hazel (general surgery) Specialty Completing Consult: Hospitalist Reason for Consult: Recommendations regarding chronic medical conditions while hospitalized HPI:(include onset,location,quality,severity, duration, timing, associating symptoms) Concetta Sullivan is a 83 y.o. female with hypertension, hyperlipidemia, hypothyroidism, coronary artery disease status post NSTEMI, cerebrovascular disease status post CVA, type 2 diabetes presents to the [facility] emergency department after caregiver and daughter reportedly noted her to be a bit confused. Her caregiver comes in daily for part of the day. Today was noted that she did not eat breakfast and was not doing her IADLs as usual. She reports some right-sided abdominal pain on Sunday that got better on Sunday. Denies fevers or vomiting but reports decreased appetite and some nausea. Deniesovert fevers or chills but felt like she wanted to stay in bed and stay warm on Sunday evening. On emergency department evaluation, on CT she was found to have evidence of acute appendicitis withpossible perforation and associated 3 cm fluid collection. (There was also incidental note of endometrial thickening and associated fibroid versus mass.) She is not meeting SIRS criteria at the time of admission. Patient was accepted for admission to the general surgery service but medicine consultwas requested for comorbid medical conditions. 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 Tapia and declines further testing CORONARY ANGIOPLASTY WITH STENT PLACEMENT 11/2021 LAD PCI. LCX DIRECTOR SUPPLY w/ R-L collaterals EYE SURGERY Social History Family History Social History Tobacco Use Smoking status: Never Smokeless tobacco: Never Substance Use Topics Alcohol use: Yes Comment: sips here and there Family History Problem Relation Age of Onset Mental Illness Mother Suicide Mother Early Mother 46 committed suicide at 46y/o Unknown Father at 94y/o Hypertension Sister Heart Surgery Sister Arthritis-Osteo Sister Lung Cancer Sister Brain Aneurysm Brother Early Brother Stomach Cancer Maternal Grandmother Unknown Maternal Grandfather Unknown Paternal Grandmother Unknown Paternal Grandfather Breast Cancer Sister Cataract Sister Cancer Sister metastatic Lung Cancer Sister Hypertension Brother Arthritis-Osteo Brother Diabetes Brother Heart Surgery Brother Albinism Brother Heart Surgery Brother Blindness Brother Diabetes Brother Alcohol Abuse Brother Hypertension Son Obesity Son No Known Daughter Medications Current Facility-Administered Medications Medication Route Frequency piperacillin-tazobactam 4.5 g in sodium chloride (NS MBP) 100 mL IVPB intravenous Now sodium chloride 0.9 % (NS) infusion intravenous CONTINUOUS Current Outpatient Medications Medication aspirin chewable 81 mg tablet atorvastatin (LIPITOR) 40 mg tablet carvedilol (COREG) 3.125 mg tablet cholecalciferol (VITAMIN D3) 1,250 mcg (50,000 unit) capsule cholecalciferol, Vitamin D3, 25 mcg (1,000 unit) tablet cyanocobalamin (VITAMIN B-12) 1,000 mcg tablet ezetimibe (ZETIA) 10 mg tablet hypromellose (ISOPTO TEARS) 0.5 % ophthalmic solution ibuprofen (MOTRIN) 400 mg tablet levothyroxine (SYNTHROID) 100 mcg tablet losartan (COZAAR) 100 mg tablet medical supply, miscellaneous (WALKER WHEELS ACCESSORY MISC) wipaxhzq-faxnhezqv-xoyucqqnzocqp (MAXITROL) 3.5mg/mL-10,000 unit/mL-0.1 % ophthalmic suspension nitroglycerin (NITROSTAT) 0.4 mg SL tablet triamcinolone (KENALOG) 0.1 % cream vit A,C & W-gaxinw-zmptzmoa (OCUVITE) 300 mcg-200 mg-27 mg-2 mg tablet Facility-Administered Medications Ordered in Other Encounters Medication Route Frequency [] aflibercept (EYLEA) intravitreal syringe 2 mg intravitreal Allergies Allergies Allergen Reactions Adhesive Tape-Silicones Rash Bupivacaine Enalapril Cough Cough and rash Other - See Comments seasonal allergies?environmentanl? - sneezing Silicone Other (See Comments) Simvastatin Per patient, abdominal and muscle pain. Review of Systems: 10 point ROS performed and negative unless otherwise noted above Objective/Physical Exam: VS: Patient Vitals for the past 8 hrs: BP Pulse Heart Rate Resp Temp SpO2 01/02/24 1400 98/56 -- 54 BPM 12 -- 93 % 01/02/24 1301 (!) 130/103 71 -- 14 -- 94 % 01/02/24 1150 (!) 143/86 74 74 BPM -- 36.4 ??C (97.6 ??F) 97 % Exam: Alert and oriented, no apparent distress Anicteric Oropharynx clear Regular rate and rhythm Clear to auscultation bilaterally and nonlabored Abdomen tender in right lower quadrant, soft, nondistended No extremity edema Neuro grossly nonfocal No Jackman catheter Skin warm and dry Data Review: I have independently visualized the Labs: CBC: Lab Results Component Value Date WBC 10.60 01/02/2024 RBC 4.01 01/02/2024 HGB 12.9 01/02/2024 HCT 38.0 01/02/2024 MCV 95 01/02/2024 MCH 32.2 01/02/2024 MCHC 33.9 01/02/2024 PLT 234 01/02/2024 NEUTROABS 8.48 01/02/2024 BMP: Lab Results Component Value Date NA 136 01/02/2024 K 4.3 01/02/2024 CL 102 01/02/2024 CO2 23 01/02/2024 BUN 25 01/02/2024 CREATININE 0.72 01/02/2024 CALCIUM 9.3 01/02/2024 MG 1.9 11/17/2021 LABALBU 3.1 (L) 01/02/2024 Other Studies: CT A/P: IMPRESSION 1. Acute appendicitis. Possible rupture of the tip of the appendix. Developing periappendiceal fluid collection measuring approximate 1.2 x 2.9 x 3.0 cm. 2. Extensive colonic diverticulosis without evidence of acute diverticulitis. 3. Apparent abnormal thickening of the endometrium. Apparent posterior submucosal fibroid or other mass lesion. Recommend further assessment to begin with ultrasound. 4. Hepatic steatosis. ECG Sinus rhythm with 1st degree AV block with premature atrial complexes Left axis deviation Left ventricular hypertrophy with QRS widening Nonspecific ST and T wave abnormality Compared to ECG 08/21/2023 09:46:25 Atrial premature complex(es) now present First degree AV block now present ST (T wave) deviation still present Assessment: # Acute appendicitis with possible rupture and associated abscess # Incidental note of endometrial thickening and possible fibroid versus mass on CT # Type 2 diabetes # Hypertension # Hyperlipidemia # Hypothyroidism # Coronary artery disease (h/o NSTEMI, last PCI 11/16/2021, followed in [facility] cardiology clinic) # Cerebrovascular disease # Hypothyroidism # HFpEF Regarding perioperative risk, she has 3 RCRI risk factors (coronary artery disease, CHF, CVD). Highrisk patient potentially undergoing moderate to high risk procedure (interval appendectomy). Her activity is less than 4 METS (wheelchair-bound). No clinical symptoms of active coronary artery disease, though would be difficult to elicit exertional symptoms given her limited mobility. (Estimated 5.4% - 9.1% chance of major adverse cardiac event based on RCRI) Recommendations: -- Management for appendicitis per surgery -- Outpatient follow-up for endometrial thickening noted on CT. -- Carb consistent diet when taking oral intake and would implement supplemental scale insulin per order set for diabetes -- Continue levothyroxine as you are doing -- Reasonable to continue irbesartan and lieu of S[employer] losartan given her hypertension and normal renal function. Would monitor renal function. -- Agree with continuing aspirin, statin, carvedilol. monitor for bradycardia or hypotension on thecarvedilol Given her cardiovascular risk profile, conservative management is certainly preferable to surgical intervention. If non-emergent or elective surgical approach is being considered (interval appendectomy at a later date), would review with cardiology to see if stress test is indicated given her risk profile and inability to elicit exertional symptoms. I would continue statin, aspirin, beta-blockadein the perioperative period as hemodynamics/bleeding risk will allow for. Salome Veloz MD 01/02/2024 15:02 documented in this encounter ED Notes * Kiesha Hebert RN - 01/02/2024 1836 EDT Patient is sitting up in bed, is eating dinner. Denies any pain currently. * Julieta Blair - 01/02/2024 1526 EDT 12 Lead EKG Performed by JULIETA BLAIR and shown to Noé SOLER * Melba Umanzor MD - 01/02/2024 1144 EDT Emergency Department Visit Medical Decision Making 83-year-old female with history of GERD, basilar artery stenosis, NSTEMI, mixed incontinence here for 2 days of confusion according to her caregiver as well as intermittent right lower quadrant pain.Her caregiver believes that her symptoms are similar to when she was diagnosed with a urinary tractinfection. Will check urine and will also get ct to look for appendicitis. She is not having vomiting but does have mild reproducible pain with palpation. Given her age and the fact that she has had significant discomfort CT indicated. I am not concerned about biliary pathology given lack of right upper quadrant tenderness. She is hemodynamically stable. I Do not feel she is a having aortic rupture Relevant Data as of 01/03/242127Jan 02, 2024 1353 Urine not indicative of any infection. Similarly no obvious leukocytosis or lab abnormality other than a slightly elevated CRP which is nonspecific. Waiting for results of CT [ES] [address] Hazel. He will come see her and will determine plan of surgery versus medicalmanagement as she seems to have an abscess at this time. Blood pressure reading at 1400 looks low but patient not with hypotension at this time [ES] 2599 Spoke with her daughter Tata ([phone]) and told her that she has appendicitis. She is her healthcare proxy. She should be contacted if Concetta needs surgery. She has questions about safety of surgery given her age. I deferred to Dr. Hazel to discuss with her. Reminder that she is legally blind. She also feels that patient has been more confused over the last week. She hasn't been complaining of abdominal pain. No hx of dementia. The fact that she has been more confused for the last week is new for her. Over the last year she is 'less sharp' but no hx of dementia [ES] [address] Reeder and will consult. will admit and recommends medical management at this time. [ES] Relevant Data User Index [ES] Melba Umanzor MD EKG (independent interpretation): NSR, LAD, significant artifact and 1st degree AV block but no concerning findings Medical Decision Making Problems Addressed: Acute appendicitis, unspecified acute appendicitis type: complicated acute illness or injury Amount and/or Complexity of Data Reviewed Labs: ordered. Radiology: ordered. Risk Prescription drug management. Decision regarding hospitalization. Final diagnoses: None Disposition: No disposition on file Chief complaint: Confusion and right lower quadrant abdominal pain ISIDRO Sullivan is a 83 y.o. female with CVA, NSTEMI, legally blind at baseline, history of macular degeneration who presents to the ED for confusion. Patient says she does not feel that she is particular confused but her caregiver who visits her 4 hours a day reports the patient has not been takingher medications and has not been getting herself dressed as she typically has. She feels that this has been present for 2 to 3 days. Patient said that she was having abdominal pain intermitently for the last 4 days and was able to say it was in the right lower quadrant and she was concerned that itwas appendicitis. sHe is not having the pain at this time. Patient been seen 4 months ago for confusion and was diagnosed with a urinary tract infection and given a single dose of fosfomycin. Caregiver and patient report no fever, cough, chest pain, shortness of breath, nausea, vomiting, diarrhea. No burning with urination. No lower extremity swelling History was provided by: Patient and caregiver was able to supplement Records reviewed include: Discharge summary from February 22, 2022 to give a better sense of patient's history. She had been admitted for ongoing weakness after a fall. Patient's pertinent PMH, FH, SH were reviewed and edited as necessary. Nursing notes reviewed. A medical screening exam was performed. Physical Exam BP (!) 143/86 (BP Cuff Location: Left arm, BP Patient Position: Sitting) Pulse 74 Temp 36.4 ??C(97.6 ??F) (Oral) Ht 165.1 cm (65) Wt 69.4 kg (153 lb) SpO2 97% BMI 25.46 kg/m?? Physical Exam Well appearing. Appears stated age Breathing comfortably. No abdominal distention, rebound or guarding. Slight tenderness RLQ but very minimal No lower extremity swelling Moving all 4 etxremities well and on verbal command. Procedures Procedures documented in this encounter Miscellaneous Notes * Plan of Care - Mahesh Rucker LPN - 01/11/2024 1240 EDT Problem: Sensory: Goal: Ability to understand and participate in conversations will be supported Outcome: Completed Problem: Sensory: Goal: Ability to compensate for vision loss will be supported Outcome: Completed Problem: High Fall Risk: Goal: Patient will Remain Free of Falls due to Med. Side Effects Outcome: Completed Problem: High Fall Risk: Goal: Patient Will Remain Free from Fall-Related Injury Outcome: Completed Problem: High Fall Risk: Goal: Patient will Remain Free of Falls due to Altered Elimination Outcome: Completed Problem: High Fall Risk: Goal: Patient will Remain Free of Falls due to Altered Mobility Outcome: Completed Problem: Daily Care Plan Goals Goal: Care Plan Documentation Outcome: Completed Flowsheets (Taken 01/11/2024 1100) Area of Focus: Discharge Plan Goal This Shift: Successful teaching/education upon discharge Problem: Safety: Goal: Will remain free from falls Outcome: Completed Problem: Pain: Goal: Pain level will decrease Outcome: Completed Problem: SKIN INTEGRITY Goal: Skin integrity will improve or be maintained Outcome: Completed Problem: Pressure Ulcer Prevention Goal: Absence Of Pressure Ulcer Outcome: Completed Problem: Risk For Imapaired Skin Integrity Goal: Incontinence Is Managed Outcome: Completed Problem: High Fall Risk: Goal: Patient will Remain Free of Falls due to Dizziness/Vertigo Outcome: Completed * Plan of Care - Katia Swain - 01/11/2024 1022 EDT 01/11/24 1022 Medicare IM Notice IM notice status Patient received notification verbally and in writing while in hospital. IM notice given on admission? -- IM notice given at discharge? Yes * Plan of Care - Mar Burden RN - 01/11/2024 0436 EDT Assumed care of patient at 1900. A&Ox3, started shift on RA but had to be placed on 4L O2 oxymask to meet SPO2 requirements. No drainage from FAHAD drain during the night. notified, no new ordersat this time. the patient on Q2 turns to protect skin, up to commode with 2X assist for stand pivot. Mepliex on sacrum. LR running at 75ml/hr Call ernst within reach, bed alarmed, hourly rounding in pl frances. Problem: High Fall Risk: Goal: Patient Will Remain Free from Fall-Related Injury Outcome: Ongoing Problem: Pain: Goal: Pain level will decrease Outcome: Ongoing Problem: SKIN INTEGRITY Goal: Skin integrity will improve or be maintained Outcome: Ongoing * Plan of Care - Martha Avila RN - 01/10/2024 0957 EDT Problem: Sensory: Goal: Ability to understand and participate in conversations will be supported Outcome: Ongoing Problem: High Fall Risk: Goal: Patient Will Remain Free from Fall-Related Injury Outcome: Ongoing Problem: Risk For Imapaired Skin Integrity Goal: Incontinence Is Managed Outcome: Ongoing Problem: Daily Care Plan Goals Goal: Care Plan Documentation Outcome: Met This Shift Flowsheets (Taken 01/10/2024 0649) Area of Focus: Communication Goal This Shift: Pt will be accepted to [facility] for abscess drained. Note: Pt will go to [facility] at 1200 via ambulance and return after procedure Data: Pt A/Ox3 (wifty), denies pain and discomfort and all VSS. Pt was admitted on (01/01) for a perforated appendicitis and now has an abscess that needs to be drained. Pt has a PMH of HTN, HLD, legally blind and CVA (2019). Pt is a 1- 2x/assist with walker to BSC or chair or uses prakash steady with one person. Pt NPO for procedure up at [facility]. Action: Assessment complete and all meds given whole with no complications. Pt was taken up to [facility] at 1215 via EMS and arrived back to [facility] at 1700. Incision site is C/D/I. Response: Pt now has a FAHAD drain at site that has no output currently. Pt also on NS at 50 mL/hr continuous. Carvedilol given and pt did eat dinner with no concerns. Pt currently in bed, showing no signs of pain or discomfort, call enrst within reach and all VSS. MARTHA AVILA RN 01/10/2024 9:57 * Plan of Care - Alfonso Payne RN - 01/10/2024 0673 EDT Data: Patient A&O X3, reported being frustrated with discharge plan and having to go to IR today Action: Emotional support provided to patient Response: Safety maintained overnight ALFONSO PAYNE RN 01/10/2024 6:43 Problem: Daily Care Plan Goals Goal: Care Plan Documentation Outcome: Ongoing Flowsheets (Taken 01/09/2024 1900) Goal This Shift: Encourage mobility and repositioning * Plan of Care - Mahesh Rucker LPN - 01/09/2024 1645 EDT Problem: Daily Care Plan Goals Goal: Care Plan Documentation Outcome: Ongoing Flowsheets (Taken 01/09/2024 0830) Area of Focus: Mobility Goal This Shift: Encourage mobility Encourge participation in plan of care Adequate pain control Educate pt throughout hospitalization Maintain pt comfort/safety WIll remain free from falls/injury * Plan of Care - Alfonso Payne RN - 01/09/2024 0305 EDT Data: Patient stated she wanted to get into my wheelchair and scoot around Action: Plan was made with patient to get into wheelchair and mobilize this shift Response: Patient declined as it was too late and said she would tomorrow ALFONSO PAYNE RN 01/09/2024 3:05 Problem: Daily Care Plan Goals Goal: Care Plan Documentation Outcome: Ongoing Flowsheets (Taken 01/08/2024 1900) Goal This Shift: Increase mobility Problem: Safety: Goal: Will remain free from falls Outcome: Met This Shift * Plan of Care - Mahesh Rucker LPN - 01/08/2024 1844 EDT Problem: Daily Care Plan Goals Goal: Care Plan Documentation Outcome: Ongoing Flowsheets (Taken 01/08/2024 1612) Area of Focus: Mobility Goal This Shift: Encourage mobility Encourge participation in plan of care Adequate pain control Educate pt throughout hospitalization Maintain pt comfort/safety WIll remain free from falls/injury * Plan of Care - Alfonso Payne RN - 01/08/2024 0400 EDT Data: Patient A&O X3 - blind in both eyes, incontinent of urine this shift Action: Alerted patient to surroundings and placed stickers over call lights for easy access to ring for staff, assisted with kana-care Response: Able to make needs known, personal belongings and call ernst within reach ALFONSO PAYNE RN 01/08/2024 4:00 Problem: Daily Care Plan Goals Goal: Care Plan Documentation Outcome: Ongoing Flowsheets (Taken 01/07/2024 1900) Goal This Shift: Encourage mobility and repositioning Problem: SKIN INTEGRITY Goal: Skin integrity will improve or be maintained Outcome: Ongoing * Plan of Care - Josefa Walsh LPN - 01/07/2024 1552 EDT A/Ox2, to self and place. X2 assist out of bed with prakash steady to chair. Incontinent/continent of urine and stool. Legally blind. Able to make needs known. Reliable to use call ernst. Knowing of planto go to rehab, patient is agreeable with this plan. Blanchable redness on bottom. Call ernst withinreach. Problem: Sensory: Goal: Ability to understand and participate in conversations will be supported Outcome: Ongoing Problem: High Fall Risk: Goal: Patient Will Remain Free from Fall-Related Injury Outcome: Ongoing Problem: Safety: Goal: Will remain free from falls Outcome: Ongoing Problem: SKIN INTEGRITY Goal: Skin integrity will improve or be maintained Outcome: Ongoing Josefa Chan LPN * Plan of Care - Alyssa Castelan RN - 01/07/2024 0353 EDT Problem: Sensory: Goal: Ability to compensate for vision loss will be supported Outcome: Ongoing Problem: High Fall Risk: Goal: Patient Will Remain Free from Fall-Related Injury Outcome: Ongoing Problem: Pain: Goal: Pain level will decrease Outcome: Ongoing Patient is Ax3, she is legally blind, 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 Patient was complaining of abdominal pain radiating to her mid back, medicated with Motrin and applied a heat pack like we did the night before and that seemed to help. Patient is incontinent, applied skin protectant cream. Patient has a Mepilex on her Coccyx for protection. Patient needs assist with meals , setting them up and letting her know where everything is shesaid the day before no one helped her with eating so I relayed this to the day shift nurse and the night INTERVENTIONAL TECHNOLOGIST and yesterday the day shift nurse helped her with her meals. She likes you to put her glasses on in the morning before breakfast. Patients call ernst is within reach, hourly rounding, bed alarm on for safety. Patient safety maintained, will continue to monitor. * Plan of Care - Josefa Walsh LPN - 01/06/2024 1426 EDT A/Ox3, x2 heavy assist OOB to chair. No C/O pain during this shift. IV abx being tolerated. Daughter came to visit this morning. Able to make needs know pt is legally blind. Incontinent of urine and stool. Resting in bed this afternoon. OOB to chair for meals. Needing assistance with placement of food on tray. Call ernst within reach. Problem: Sensory: Goal: Ability to understand and participate in conversations will be supported Outcome: Ongoing Problem: Sensory: Goal: Ability to compensate for vision loss will be supported Outcome: Ongoing Problem: High Fall Risk: Goal: Patient Will Remain Free from Fall-Related Injury Outcome: Ongoing Problem: Safety: Goal: Will remain free from falls Outcome: Ongoing Josefa Chan LPN * Plan of Care - Alyssa Castelan RN - 01/06/2024 0355 EDT Problem: High Fall Risk: Goal: Patient Will Remain Free from Fall-Related Injury Outcome: Ongoing Problem: Sensory: Goal: Ability to compensate for vision loss will be supported Outcome: Ongoing Problem: Pain: Goal: Pain level will decrease Outcome: Ongoing Patient is Ax3, she is legally blind, 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 Patient was complaining of abdominal pain radiating to her mid back, medicated with Motrin and applied a heat pack and that seemed to help. Patient is incontinent, applied skin protectant cream. Patient has a Mepilex on her Coccyx for protection. Patient needs assist with meals , setting them up and letting her know where everything is. Patients call ernst is within reach, hourly rounding, bed alarm on for safety. Patient safety maintained, will continue to monitor. * Plan of Care - Josefa Walsh LPN - 01/05/2024 1500 EDT A/Ox3, x2 assist OOB to chair with walker. Uses commode at bedside, wheelchair for mobility to bathroom. PT worked with patient, okay x1 assist, stand piv, from bed to chair, visa versa. When ambulating please leave to PT. Able to make needs known. Tolerated sitting in chair well. Incont of urine and stool. Legally blind. Can get anxious at times not knowing where things are, needing reminding, rearranging and reassurance. Call ernst within reach. Problem: Sensory: Goal: Ability to understand and participate in conversations will be supported Outcome: Ongoing Problem: Sensory: Goal: Ability to compensate for vision loss will be supported Outcome: Ongoing Problem: High Fall Risk: Goal: Patient Will Remain Free from Fall-Related Injury Outcome: Ongoing Josefa Chan LPN * Plan of Care - Michelle Galloway RN - 01/05/2024 0050 EDT Problem: Sensory: Goal: Ability to understand and participate in conversations will be supported Outcome: Ongoing Problem: Sensory: Goal: Ability to compensate for vision loss will be supported Outcome: Ongoing Problem: High Fall Risk: Goal: Patient Will Remain Free from Fall-Related Injury Outcome: Ongoing Problem: Safety: Goal: Will remain free from falls Outcome: Ongoing Problem: Pain: Goal: Pain level will decrease Outcome: Ongoing Problem: SKIN INTEGRITY Goal: Skin integrity will improve or be maintained Outcome: Ongoing * Plan of Care - Dharmesh Nelson RN - 01/04/2024 1228 EDT Alert and oriented x2. Pleasant with no behaviors. On 1L nasal cannula to be above 90%. Sats remainin the low 90s on 1L. HR regular. She is incontinent of bowel and bladder. She is able to use bedside commode with transfer of 2 assists stand-pivot. She has a mepilex to her sacrum. Blanchable redness underneath sacral border. roof tile layer stopped in and brought her in some of her belongings (clothes and hairbrush). Patient in bed resting for a lot of the shift. Problem: Sensory: Goal: Ability to understand and participate in conversations will be supported Outcome: Ongoing Problem: Sensory: Goal: Ability to compensate for vision loss will be supported Outcome: Ongoing Problem: High Fall Risk: Goal: Patient will Remain Free of Falls due to Med. Side Effects Outcome: Ongoing Problem: High Fall Risk: Goal: Patient Will Remain Free from Fall-Related Injury Outcome: Ongoing Problem: High Fall Risk: Goal: Patient will Remain Free of Falls due to Altered Elimination Outcome: Ongoing Problem: High Fall Risk: Goal: Patient will Remain Free of Falls due to Altered Mobility Outcome: Ongoing Problem: Safety: Goal: Will remain free from falls Outcome: Ongoing Problem: Pressure Ulcer Prevention Goal: Absence Of Pressure Ulcer Outcome: Ongoing Problem: Risk For Imapaired Skin Integrity Goal: Incontinence Is Managed Outcome: Ongoing * Plan of Care - Dharmesh Nelson RN - 01/03/2024 1507 EDT Alert and oriented x2. Pleasant with no behaviors. HR regular. On RA during the day. She is incontinent of both bowel and bladder. 2 bed changes due to incontinence during shift. She is very unsteadyand requires 2 assists stand pivot to the commode. Blanchable redness to sacrum. Mepilex in place to sacrum. Medications given per orders see MAR. Problem: Sensory: Goal: Ability to understand and participate in conversations will be supported Outcome: Ongoing Problem: Sensory: Goal: Ability to compensate for vision loss will be supported Outcome: Ongoing Problem: High Fall Risk: Goal: Patient will Remain Free of Falls due to Med. Side Effects Outcome: Ongoing Problem: High Fall Risk: Goal: Patient Will Remain Free from Fall-Related Injury Outcome: Ongoing Problem: High Fall Risk: Goal: Patient will Remain Free of Falls due to Altered Elimination Outcome: Ongoing Problem: High Fall Risk: Goal: Patient will Remain Free of Falls due to Altered Mobility Outcome: Ongoing Problem: Safety: Goal: Will remain free from falls Outcome: Ongoing Problem: Pain: Goal: Pain level will decrease Outcome: Ongoing * Plan of Care - Jessica Grant - 01/03/2024 1151 EDT 01/03/24 1151 Medicare IM Notice IM notice status Patient received notification verbally and in writing while in hospital. IM notice given on admission? Yes (given 01/02/24) * Plan of Care - Michelle Galloway RN - 01/03/2024 0053 EDT Problem: Sensory: Goal: Ability to understand and participate in conversations will be supported Outcome: Ongoing Problem: Sensory: Goal: Ability to compensate for vision loss will be supported Outcome: Ongoing Problem: High Fall Risk: Goal: Patient Will Remain Free from Fall-Related Injury Outcome: Ongoing Problem: High Fall Risk: Goal: Patient will Remain Free of Falls due to Altered Elimination Outcome: Ongoing Problem: SKIN INTEGRITY Goal: Skin integrity will improve or be maintained Outcome: Ongoing documented in this encounter Plan of Treatment Upcoming Encounters Date Type Department Care Team (Late st Contact Info) Description 06/11/2024 12:[address] [facility] - [place] [address] [place] [address] Santiago Anthony MD [address] [place] [address] [address] [place] [address] 07/15/2024 10:45 EDT Office Visit [facility] [address] [place] [address] Dianna Flowers MD [address] [facility] [address] [place] [address] Scheduled Referrals Name Type Priority Associated Diagnoses Order Schedule PROVIDER FOLLOW-UP INSTRUCTIONS Outpatient Referral Routine Ordered: 01/11/2024 documented as of this encounter Procedures Procedure Name Priority Date/Time Associated Diagnosis Comments IR U/S GUIDED DRAINAGE Routine 15:[address] ABDOMEN PELVIS W CONTRAST STAT 01/09/2024 9:40 EDT HOLD LAVENDER TOP Routine 01/07/2024 6:1 0 EDT CREATININE Routine 01/07/2024 6:10 EDT HOLD LAVENDER TOP Routine 01/06/2024 6:3 9 EDT CREATININE Routine 01/06/2024 6:39 EDT COMPLETE BLOOD COUNT AND DIFFERENTIAL Routine 01/05/2024 6:28 EDT BASIC METABOLIC PANEL (BMP) Routine 01/05/2024 6:28 EDT COMPLETE BLOOD COUNT AND DIFFERENTIAL Routine 01/04/2024 6:42 EDT MAGNESIUM Routine 01/04/2024 6:42 EDT BASIC METABOLIC PANEL (BMP) Routine 01/04/2024 6:42 EDT COMPLETE BLOOD COUNT AND DIFFERENTIAL Routine 01/03/2024 6:53 EDT BASIC METABOLIC PANEL (BMP) Routine 01/03/2024 6:53 EDT ECG REPORT - SCANNED 01/02/2024 16:25 EDT EKG 12-LEAD STAT 01/02/2024 15:[address] ABDOMEN PELVIS W CONTRAST STAT 01/02/2024 13:32 EDT UA SEDIMENT + REFLEX TO CULTURE STAT 01/02/2024 13:08 EDT HOLD GREEN TOP Routine 01/02/2024 13:03 EDT HOLD BLUE TOP Routine 01/02/2024 13:03 EDT COMPLETE BLOOD COUNT AND DIFFERENTIAL STAT 01/02/2024 13:03 EDT C REACTIVE PROTEIN STAT 01/02/2024 13 :03 EDT COMPREHENSIVE METABOLIC PANEL (CMP) STAT 01/02/2024 13:03 EDT documented in this encounter Results * IR IMAGE GUIDED DRAINAGE (01/10/2024 15:00 EDT) Anatomical Region Laterality Modality N/A Computed Tomogra phy 01/10/2024 20:2 6 EDT Narrative 01/10/2024 20:26 EDT IR IMAGE GUIDED DRAINAGE 01/10/2024 1:50 PM Patient: CONCETTA Lawton STONE Indication: ??83 year old female with an appendiceal abscess. Operators: Attending physician(s): Shola Duran MD Resident physician(s): Justino Alonso MD Advanced practice provider(s): None Procedure: CT-guided abscess drain placement into RLQ abscess Technique: Once informed consent was obtained, the patient was placed supine on the CT table. ?? A time-out was performed, confirming the correct patient, the correct procedure, and the correct site. ?? A limited CT scan of the pelvis was performed to define the planned skin entry site and route for needle passage during the drainage. Note was again made of a periappendiceal abscess in the right lower quadrant. ??The skin overlying the fluid collection was marked prior to sterile prep. Conscious sedation was administered with the monitoring of the patient's heart rate, blood pressure, respiratory rate, and oxygen saturation. Under CT guidance, an 18-gauge introducer needle was advanced from the skin entry site toward the fluid collection. Intermittent CT images were obtained during needle passage to confirm appropriate advancement of the needle toward the fluid collection. Once the tip of the needle was within the fluid collection, a specimen of purulent fluid was obtained and sent to the lab for further evaluation. An Amplatz wire was then advanced through needle and coiled within the fluid collection. The introducer needle was removed, the track was dilated, and an 8 Mexican pigtail drainage catheter was advanced over the wire into the fluid collection. Images were obtained to ensure that the drainage catheter was positioned within the fluid collection. A total of 40 mL of purulent fluid was then drained from the fluid collection. The catheter was affixed to the skin with a Zara device and left to gravity drainage. The patient tolerated the procedure well. There were no immediate complications. Estimated blood loss (mL): Trace Contrast None Radiation Dose Total DLP 205.8 mGy*cm Sedation I personally spent 30 minutes in continuous [id number] attendance with the patient during the administration of the moderate sedation and supervised the moderate sedation services that were monitored by an independent trained observer who had no other duties during the procedure. I reviewed the nursing procedural notes. Impression Successful CT-guided 8 Fr abscess drain placement into a right lower quadrant abscess. ??40 mL of purulent fluid collected and sent for testing. I have personally reviewed the images and the above interpretation and agree with the findings. [id number] Procedure Note Shola Duran MD - 01/10/2024 IR IMAGE GUIDED DRAINAGE 01/10/2024 1:50 PM Patient: CONCETTA SULLIVAN Indication: 83 year old female with an appendiceal abscess. Operators: Attending physician(s): Shola Duran MD Resident physician(s): Justino Alonso MD Advanced practice provider(s): None Procedure: CT-guided abscess drain placement into RLQ abscess Technique: Once informed consent was obtained, the patient was placed supine on theCT table. A time-out was performed, confirming the correct patient, thecorrect procedure, and the correct site. A limited CT scan of the pelviswas performed to define the planned skin entry site and route for needlepassage during the drainage. Note was again made of a periappendicealabscess in the right lower quadrant. The skin overlying the fluidcollection was marked prior to sterile prep. Conscious sedation was administered with the monitoring of the patient'sheart rate, blood pressure, respiratory rate, and oxygen saturation. Under CT guidance, an 18-gauge introducer needle was advanced from theskin entry site toward the fluid collection. Intermittent CT images wereobtained during needle passage to confirm appropriate advancement of theneedle toward the fluid collection. Once the tip of the needle was withinthe fluid collection, a specimen of purulent fluid was obtained and sentto the lab for further evaluation. An Amplatz wire was then advancedthrough needle and coiled within the fluid collection. The introducerneedle was removed, the track was dilated, and an 8 Mexican pigtaildrainage catheter was advanced over the wire into the fluid collection.Images were obtained to ensure that the drainage catheter was positionedwithin the fluid collection. A total of 40 mL of purulent fluid was thendrained from the fluid collection. The catheter was affixed to the skinwith a Zraa device and left to gravity drainage. The patient toleratedthe procedure well. There were no immediate complications. Estimated blood loss (mL): Trace Contrast None Radiation Dose Total DLP 205.8 mGy*cm Sedation I personally spent 30 minutes in continuous [id number] attendance withthe patient during the administration of the moderate sedation andsupervised the moderate sedation services that were monitored by anindependent trained observer who had no other duties during the procedure.I reviewed the nursing procedural notes. Impression Successful CT-guided 8 Fr abscess drain placement into a right lowerquadrant abscess. 40 mL of purulent fluid collected and sent fortesting. I have personally reviewed the images and the above interpretation andagree with the findings. [id number] Danyelle Hazel MD IMG IR ORDERAB LES * CT ABDOMEN PELVIS W CONTRAST (01/09/2024 9:40 EDT) Anatomical Region Laterality Modality Body, Abdomen, Pelvis, Abdomen and Pelvis Computed Tomography 01/09/2024 10:2 7 EDT Impressions 01/09/2024 10:27 EDT 1. Findings consistent with known perforated appendicitis. 2. Interval enlargement of periappendiceal abscess abutting the appendix tip which now measures 4.3 x 2.8 cm compared to 2.9 x 1.2 cm measured at similar locations. The collection has a maximum diameter of 6.3 x 6.3 x 2.8 cm. 3. Mild reactive distal ileitis. [id number] Narrative 01/09/2024 10:27 EDT INDICATION: perforated appendicitis, ongoing RLQ tenderness;. COMPARISON: CT scan of the abdomen and pelvis 01/02/2024. TECHNIQUE: CT scan of the abdomen and pelvis was performed with nonionic IV contrast. 100 mL of Omnipaque 350 was administered intravenously. Axial images and multiplanar reformations were reviewed. FINDINGS: Lower chest: Minimal dependent atelectasis within the lung bases. Liver: Diffuse hepatic steatosis. No hepatic mass or duct dilatation. Gallbladder: Normal. No calcified stones, wall abnormality or pericholecystic inflammation. Normal caliber common bile duct. Pancreas: No pancreatic mass or duct dilatation. Spleen: Normal. No splenomegaly or focal splenic lesion. Adrenal glands: Normal adrenal glands. Kidneys and ureters: Unremarkable kidneys and ureters. No renal stone, focal renal lesion or hydronephrosis. Urinary bladder: Unremarkable as visualized. Reproductive: Multiple uterine fibroids, unchanged. No adnexal mass. Gastrointestinal: Numerous diverticuli throughout the colon. No diverticulitis or colitis. Normal stomach. Mild wall thickening of terminal ileum consistent with reactive enteritis. Appendix: Distended fluid-filled appendix with thickened hyperenhancing wall consistent with acute appendicitis. There is been interval increase in size of low-density collection abutting the appendix tip consistent with evolving periappendiceal abscess. This now measures 4.3 cm AP by 2.8 cm transverse (compared to 2.9 cm AP by 1.2 cm transverse at a similar location). There is multi lobulated collection measures 6.3 x 6.3 x 2.8 cm in maximum dimensions. Peritoneal cavity: Normal. No ascites or free intraperitoneal air. Lymph nodes: No pathologically enlarged lymph nodes. Vessels: Mild atherosclerosis of the abdominal aorta and branch vessels. No aneurysm. Abdominal wall: Unremarkable. No bowel containing hernia or mass. Musculoskeletal: Degenerative spondylosis of the lumbar spine. No fracture or suspicious bone lesion. Procedure Note Baldev Pastrana MD - 01/09/2024 INDICATION: perforated appendicitis, ongoing RLQ tenderness;. COMPARISON: CT scan of the abdomen and pelvis 01/02/2024. TECHNIQUE: CT scan of the abdomen and pelvis was performed with nonionicIV contrast. 100 mL of Omnipaque 350 was administered intravenously. Axialimages and multiplanar reformations were reviewed. FINDINGS: Lower chest: Minimal dependent atelectasis within the lung bases. Liver: Diffuse hepatic steatosis. No hepatic mass or duct dilatation. Gallbladder: Normal. No calcified stones, wall abnormality orpericholecystic inflammation. Normal caliber common bile duct. Pancreas: No pancreatic mass or duct dilatation. Spleen: Normal. No splenomegaly or focal splenic lesion. Adrenal glands: Normal adrenal glands. Kidneys and ureters: Unremarkable kidneys and ureters. No renal stone,focal renal lesion or hydronephrosis. Urinary bladder: Unremarkable as visualized. Reproductive: Multiple uterine fibroids, unchanged. No adnexal mass. Gastrointestinal: Numerous diverticuli throughout the colon. Nodiverticulitis or colitis. Normal stomach. Mild wall thickening ofterminal ileum consistent with reactive enteritis. Appendix: Distended fluid-filled appendix with thickened hyperenhancingwall consistent with acute appendicitis. There is been interval increasein size of low-density collection abutting the appendix tip consistentwith evolving periappendiceal abscess. This now measures 4.3 cm AP by 2.8cm transverse (compared to 2.9 cm AP by 1.2 cm transverse at a similarlocation). There is multi lobulated collection measures 6.3 x 6.3 x 2.8 cmin maximum dimensions. Peritoneal cavity: Normal. No ascites or free intraperitoneal air. Lymph nodes: No pathologically enlarged lymph nodes. Vessels: Mild atherosclerosis of the abdominal aorta and branch vessels.No aneurysm. Abdominal wall: Unremarkable. No bowel containing hernia or mass. Musculoskeletal: Degenerative spondylosis of the lumbar spine. No fractureor suspicious bone lesion. IMPRESSION 1. Findings consistent with known perforated appendicitis. 2. Interval enlargement of periappendiceal abscess abutting the appendixtip which now measures 4.3 x 2.8 cm compared to 2.9 x 1.2 cm measured atsimilar locations. The collection has a maximum diameter of 6.3 x 6.3 x2.8 cm. 3. Mild reactive distal ileitis. [id number] Emmanuelle Hancock MD IMG CT ORDERABLES * HOLD LAVENDER TOP (01/07/2024 6:10 EDT) Hold Hold 01/07/2024 8:0 1 EDT [facility] Blood VENOUS BLOOD / Unknown Venipuncture / Unknown 01/07/2024 6:10 EDT 01/07/2024 6:57 EDT Danyelle Hazel MD LAB INFO SERVI CE AND SUPPORT & PHONE RESULT Performing Organization Address [facility] de Phone Number [facility] [address] [place] [address] * CREATININE (01/07/2024 6:10 EDT) Creatinine 0.80 0.52 - 1.04 mg/dL 01/07/2024 7:28 EDT [facility] eGFR 72 >60 mL/min/1.73 m2 01/07/2024 7:28 EDT [facility] Blood VENOUS BLOOD / Unknown Venipuncture / Unknown 01/07/2024 6:10 EDT 01/07/2024 6:50 EDT Danyelle Hazel MD CHEMISTRY & BL OOD GAS ORDERABLES Performing Organization Address [facility] Co de Phone Number [facility] [address] [place] [address] * HOLD LAVENDER TOP (01/06/2024 6:39 EDT) Hold Hold 01/06/2024 8:1 5 EDT [facility] Blood VENOUS BLOOD / Unknown Venipuncture / Unknown 01/06/2024 6:39 EDT 01/06/2024 7:11 EDT Danyelle Hazel MD LAB INFO SERVI CE AND SUPPORT & PHONE RESULT Performing Organization Address City/[facility] Co de Phone Number [facility] [address] [place] [address] * CREATININE (01/06/2024 6:39 EDT) [facility] Creatinine 0.76 0.52 - 1.04 mg/dL 01/06/2024 7:37 EDT [facility] eGFR 77 >60 mL/min/1.73 m2 01/06/2024 7:37 EDT [facility] Blood VENOUS BLOOD / Unknown Venipuncture / Unknown 01/06/2024 6:39 EDT 01/06/2024 7:09 EDT Danyelle Hazel MD CHEMISTRY & BL OOD GAS ORDERABLES Performing Organization Address [facility] Co de Phone [facility] [address] [place] [address] * (ABNORMAL) COMPLETE BLOOD COUNT AND DIFFERENTIAL (01/05/2024 6:28 EDT) Pathologist [facility] WBC 9.68 4.00 - 12.40 K/cmm 01/05/2024 6:55 EDT [facility] RBC 3.55(L) 3.86 - 5.04 M/cmm 01/05/2024 6:55 EDT [facility] Hemoglobin 11.2(L) 11.6 - 15.2 g/dL 01/05/2024 6:55 EDT [facility] HCT 33.7(L) 34.9 - 44.4 % 01/05/2024 6:55 [facility] MCV 95 81 - 98 fL 01/05/2024 6:55 [facility] MCH 31.5 26.7 - 33.3 pg 01/05/2024 6:55 [facility] MCHC 33.2 32.1 - 35.9 g/dL 01/05/2024 6:55 [facility] RDW-CV 13.5 <14.7 % 01/05/2024 6:55 [facility] RDW-SD 47.2 <50.4 fl 01/05/2024 6:55 [facility] PLT 213 141 - 377 K/cmm 01/05/2024 6:55 [facility] MPV 9.7 9.5 - 12.7 fL 01/05/2024 6:55 [facility] % Neutrophils 77.8 % 01/05/2024 6:55 [facility] % Lymphocytes 9.5 % 01/05/2024 6:55 [facility] % Monocytes 9.1 % 01/05/2024 6:55 [facility] % Eosinophils 1.9 % 01/05/2024 6:55 [facility] % Basophils 0.4 % 01/05/2024 6:55 [facility] % Immature Grans 1.3 % 01/05/20 6:55 [facility] Absolute Neutrophils 7.53 2.20 - 8.85 K/cmm 01/05/2024 6:55 [facility] Absolute Lymphocytes 0.92(L) 1.09 - 3.30 K/cmm 01/05/2024 6:55 [facility] Absolute Monocytes 0.88(H) 0.10 - 0.80 K/cmm 01/05/2024 6:55 [facility] Absolute Eosinophils 0.18 0.03 - 0.61 K/cmm 01/05/2024 6:55 [facility] ABS Basophils 0.04 0.01 - 0.11 K/cmm 01/05/2024 6:55 [facility] Absolute Immature Grans 0.13(H) 0.00 - 0.06 K/cmm 01/05/2024 6:55 [facility] Type of Differential: Auto 01/05/2024 6:55 [facility] Blood VENOUS BLOOD / Unknown Venipuncture / Unknown 01/05/2024 6:28 EDT 01/05/2024 6:51 EDT Danyelle Hazel MD PACKAGES & DNA PROBE ORDERABLES [facility] [address] [place] [address] * (ABNORMAL) BASIC METABOLIC PANEL (BMP) (01/05/2024 6:28 EDT) Sodium 137 136 - 145 mmol/L 01/05/2024 7:23 [facility] Potassium 3.7 3.5 - 5.0 mmol/L 01/05/2024 7:23 [facility] Chloride 107 96 - 110 mmol/L 01/05/2024 7:23 [facility] CO2 Total 22 22 - 32 mmol/L 01/05/2024 7:23 [facility] Anion Gap 8 5 - 14 mmol/L 01/05/2024 7:23 [facility] Glucose 134(H) 70 - 99 mg/dl 01/05/2024 7:23 [facility] Calcium 8.2(L) 8.5 - 10.5 mg/dL 01/05/2024 7:23 [facility] BUN 17 10 - 26 mg/dL 01/05/2024 7:23 [facility] Creatinine 0.81 0.52 - 1.04 mg/dL 01/05/2024 7:23 [facility] eGFR 71 >60 mL/min/1.73 m2 01/05/2024 7:23 [facility] Blood VENOUS BLOOD / Unknown Venipuncture / Unknown 01/05/2024 6:28 EDT 01/05/2024 6:51 EDT Danyelle Hazel MD CHEMISTRY & BL OOD GAS ORDERABLES Performing Organization Address [facility]/ZIP Co de Phone Number [facility] [address] [place] [address] * MAGNESIUM (01/04/2024 6:42 EDT) Pathologist [facility] Magnesium 1.9 1.7 - 2.8 mg/dL 01/04/2024 7:25 EDT [facility] Blood VENOUS BLOOD / Unknown Venipuncture / Unknown 01/04/2024 6:42 EDT 01/04/2024 6:58 EDT Kirsten Lou DO CHEMISTRY & BLOOD G ORDERABLES Performing Organization Address City/[facility]/ZIP Co de Phone Number [facility] [address] [place] [address] * (ABNORMAL) COMPLETE BLOOD COUNT AND DIFFERENTIAL (01/04/2024 6:42 EDT) WBC 10.89 4.00 - 12.40 K/cmm 01/04/2024 7:06 [facility] RBC 3.52(L) 3.86 - 5.04 M/cmm 01/04/2024 7:06 [facility] Hemoglobin 11.2(L) 11.6 - 15.2 g/dL 01/04/2024 7:06 [facility] HCT 33.1(L) 34.9 - 44.4 % 01/04/2024 7:06 [facility] MCV 94 81 - 98 fL 01/04/2024 7:06 [facility] MCH 31.8 26.7 - 33.3 pg 01/04/2024 7:06 [facility] MCHC 33.8 32.1 - 35.9 g/dL 01/04/2024 7:06 [facility] RDW-CV 13.5 <14.7 % 01/04/2024 7:06 [facility] RDW-SD 46.5 <50.4 fl 01/04/2024 7:06 [facility] PLT 216 141 - 377 K/cmm 01/04/2024 7:06 [facility] MPV 9.7 9.5 - 12.7 fL 01/04/2024 7:06 [facility] % Neutrophils 78.4 % 01/04/2024 7:06 [facility] % Lymphocytes 8.0 % 01/04/2024 7:06 [facility] % Monocytes 10.6 % 01/04/2024 7:06 [facility] % Eosinophils 1.4 % 01/04/2024 7:06 [facility] % Basophils 0.5 % 01/04/2024 7:06 [facility] % Immature Grans 1.1 % 01/04/20 7:06 [facility] Absolute Neutrophils 8.55 2.20 - 8.85 K/cmm 01/04/2024 7:06 [facility] Absolute Lymphocytes 0.87(L) 1.09 - 3.30 K/cmm 01/04/2024 7:06 [facility] Absolute Monocytes 1.15(H) 0.10 - 0.80 K/cmm 01/04/2024 7:06 [facility] Absolute Eosinophils 0.15 0.03 - 0.61 K/cmm 01/04/2024 7:06 [facility] ABS Basophils 0.05 0.01 - 0.11 K/cmm 01/04/2024 7:06 [facility] Absolute Immature Grans 0.12(H) 0.00 - 0.06 K/cmm 01/04/2024 7:06 [facility] Type of Differential: Auto 01/04/2024 7:06 [facility] Blood VENOUS BLOOD / Unknown Venipuncture / Unknown 01/04/2024 6:42 EDT 01/04/2024 6:58 EDT Danyelle Hazel MD PACKAGES & DNA PROBE ORDERABLES Performing Organization Address City/[facility]/ZIP Co de Phone Number [facility] [address] [place] [address] * (ABNORMAL) BASIC METABOLIC PANEL (BMP) (01/04/2024 6:42 EDT) Pathologist [facility] Sodium 137 136 - 145 mmol/L [facility]24 [facility] Potassium 3.8 3.5 - 5.0 mmol/L 01/04/2024 7:25 [facility] Chloride 109 96 - 110 mmol/L 01/04/2024 7:25 [facility] CO2 Total 22 22 - 32 mmol/L 01/04/2024 7:25 [facility] Anion Gap 6 5 - 14 mmol/L 01/04/2024 7:25 [facility] Glucose 141(H) 70 - 99 mg/dl 01/04/2024 7:25 [facility] Calcium 8.4(L) 8.5 - 10.5 mg/dL 01/04/2024 7:25 [facility] BUN 21 10 - 26 mg/dL 01/04/2024 7:25 [facility] Creatinine 0.90 0.52 - 1.04 mg/dL 01/04/2024 7:25 [facility] eGFR 63 >60 mL/min/1.73 m2 01/04/2024 7:25 [facility] Blood VENOUS BLOOD / Unknown Venipuncture / Unknown 01/04/2024 6:42 EDT 01/04/2024 6:58 EDT Danyelle Hazel MD CHEMISTRY & BL OOD GAS ORDERABLES [facility] [address] [place] [address] * (ABNORMAL) COMPLETE BLOOD COUNT AND DIFFERENTIAL (01/03/2024 6:53 EDT) WBC 11.89 4.00 - 12.40 K/cmm 01/03/2024 7:13 [facility] RBC 3.76(L) 3.86 - 5.04 M/cmm 01/03/2024 7:13 [facility] Hemoglobin 12.0 11.6 - 15.2 g/dL 01/03/2024 7:13 [facility] HCT 35.3 34.9 - 44.4 % 01/03/2024 7:13 [facility] MCV 94 81 - 98 fL 01/03/2024 7:13 [facility] MCH 31.9 26.7 - 33.3 pg 01/03/2024 7:13 [facility] MCHC 34.0 32.1 - 35.9 g/dL 01/03/2024 7:13 [facility] RDW-CV 13.7 <14.7 % 01/03/2024 7:13 [facility] RDW-SD 46.7 <50.4 fl 01/03/2024 7:13 [facility] PLT 239 141 - 377 K/cmm 01/03/2024 7:13 [facility] MPV 10.0 9.5 - 12.7 fL 01/03/2024 7:13 [facility] % Neutrophils 80.1 % 01/03/2024 7:13 [facility] % Lymphocytes 7.5 % 01/03/2024 7:13 [facility] % Monocytes 9.3 % 01/03/2024 7:13 [facility] % Eosinophils 1.9 % 01/03/2024 7:13 [facility] % Basophils 0.3 % 01/03/2024 7:13 [facility] % Immature Grans 0.9 % 01/03/20 7:13 [facility] Absolute Neutrophils 9.52(H) 2.20 - 8.85 K/cmm 01/03/2024 7:13 [facility] Absolute Lymphocytes 0.89(L) 1.09 - 3.30 K/cmm 01/03/2024 7:13 [facility] Absolute Monocytes 1.11(H) 0.10 - 0.80 K/cmm 01/03/2024 7:13 [facility] Absolute Eosinophils 0.22 0.03 - 0.61 K/cmm 01/03/2024 7:13 [facility] ABS Basophils 0.04 0.01 - 0.11 K/cmm 01/03/2024 7:13 [facility] Absolute Immature Grans 0.11(H) 0.00 - 0.06 K/cmm 01/03/2024 7:13 [facility] Type of Differential: Auto 01/03/2024 7:13 [facility] Blood VENOUS BLOOD / Unknown Venipuncture / Unknown 01/03/2024 6:53 EDT 01/03/2024 6:59 EDT Danyelle Hazel MD PACKAGES & DNA PROBE ORDERABLES [facility] [address] [place] [address] * (ABNORMAL) BASIC METABOLIC PANEL (BMP) (01/03/2024 6:53 EDT) Sodium 137 136 - 145 mmol/L 01/03/2024 7:32 [facility] Potassium 4.3 3.5 - 5.0 mmol/L 01/03/2024 7:32 [facility] Chloride 107 96 - 110 mmol/L 01/03/2024 7:32 [facility] CO2 Total 24 22 - 32 mmol/L 01/03/2024 7:32 [facility] Anion Gap 6 5 - 14 mmol/L 01/03/2024 7:32 EDT [facility] Glucose 148(H) 70 - 99 mg/dl 01/03/2024 7:32 EDT [facility] Calcium 8.7 8.5 - 10.5 mg/dL 01/03/2024 7:32 EDT [facility] BUN 24 10 - 26 mg/dL 01/03/2024 7:32 EDT [facility] Creatinine 0.80 0.52 - 1.04 mg/dL 01/03/2024 7:32 EDT [facility] eGFR 72 >60 mL/min/1.73 m2 01/03/2024 7:32 EDT [facility] Blood VENOUS BLOOD / Unknown Venipuncture / Unknown 01/03/2024 6:53 EDT 01/03/2024 6:59 EDT Danyelle Hazel MD CHEMISTRY & BL OOD GAS ORDERABLES Performing Organization Address [facility]/State/[facility] Co de Phone Number [facility] [address] [place] [id number] * ECG REPORT - SCANNED (01/02/2024 16:25 EDT) 01/02/2024 16:2 5 EDT Scan 2 Chief Dispatcher PROCEDURE/MINOR KAYLA GICAL ORDERABLES * EKG 12-LEAD (01/02/2024 15:19 EDT) 01/02/2024 15:1 9 EDT Narrative [facility] - 01/02/2024 16:16 EDT ? [facility] ? Test Date: ?2024-01-02 Pat Name: ? CONCETTA STONE ? Department: ? Room: ? A02 Gender: ? Female ? Sql Developer Dba: ?? TC : ?1940 ? Requested By: NOÉ AGUILERA Order Number: [id number] ? Reading MD: ?? DIANNA FLOWERS MD ? Measurements Intervals ?[place] ? Rate: ? 75 ? P: ?-10 MO: ? 252 ?QRS: ?-53 QRSD: ? 116 ?T: ?74 QT: ? 408 ? QTc: ?455 ? Interpretive Statements Poor baseline Sinus rhythm with 1st degree AV block with premature atrial complexes Left axis deviation Left ventricular hypertrophy with QRS widening Nonspecific ST and T wave abnormality Compared to ECG 08/21/2023 09:46:25 Atrial premature complex(es) now present First degree AV block now present ST (T wave) deviation still present I reviewed the tracing and have either agreed or edited the findings in this report. Electronically Signed On 01-02-2024 16:16:37 EDT by DIANNA FLOWERS MD. Procedure Note Dianna Flowers MD - 01/02/2024 [facility] Test Date: 2024-01-02 Pat Name: CONCETTA SULLIVAN Department: Room: 2 Gender: Female Sql Developer Dba: TC : 1940 Requested By: NOÉ AGUILERA Order Number: [id number] Reading MD: DIANNA FLOWERS MD Measurements Intervals [place] Rate: 75 P: -10 MO: 252 QRS: -53 QRSD: 116 T: 74 QT: 408 QTc: 455 Interpretive Statements Poor baseline Sinus rhythm with 1st degree AV block with premature atrial complexes Left axis deviation Left ventricular hypertrophy with QRS widening Nonspecific ST and T wave abnormality Compared to ECG 08/21/2023 09:46:25 Atrial premature complex(es) now present First degree AV block now present ST (T wave) deviation still present I reviewed the tracing and have either agreed or edited the findings inthis report. Electronically Signed On 01-02-2024 16:16:37 EDT by DIANNA ROSENTHLA. Melba Umanzor MD CARDIAC ECG ORDERA [facility] * CT ABDOMEN PELVIS W CONTRAST (01/02/2024 13:32 EDT) Anatomical Region Laterality Modality Body, Abdomen, Pelvis, Abdomen and Pelvis Computed Tomography 01/02/2024 14:0 7 EDT Impressions 01/02/2024 14:07 EDT 1. Acute appendicitis. Possible rupture of the tip of the appendix. Developing periappendiceal fluid collection measuring approximate 1.2 x 2.9 x 3.0 cm. 2. Extensive colonic diverticulosis without evidence of acute diverticulitis. 3. Apparent abnormal thickening of the endometrium. Apparent posterior submucosal fibroid or other mass lesion. Recommend further assessment to begin with ultrasound. 4. Hepatic steatosis. [id number] Narrative 01/02/2024 14:[address] ABDOMEN PELVIS W CONTRAST ??01/02/2024 1:28 PM Signs and Symptoms/Comments: rlq abdominal pain; Technique: CT of the abdomen and pelvis was performed following the administration of intravenous contrast. This CT used either dose modulation and/or iterative reconstruction techniques to lower radiation dose. Comparison: None. Findings: Lower chest: Mild atelectasis at the lung bases. Liver: Mild/moderate hepatic steatosis. No suspicious hepatic lesion. Gallbladder: No significant finding. Bile ducts: No significant finding. Spleen: No significant finding. Pancreas: No significant finding. Adrenal glands: No significant finding. Kidneys, ureters, bladder: No suspicious renal mass. No hydronephrosis or urolithiasis. Ureters normal in caliber. Apparent focal wall thickening of the right lateral aspect of the urinary bladder (axial series 201 image 136). Reproductive organs: Uterus anteverted. Apparent moderate endometrial thickening for postmenopausal age, measuring up to approximately 13 mm. Suspected posterior submucosal fibroid or other mass. Bowel and peritoneal space: Stomach and small bowel normal. Abnormal appendix which is thick walled, dilated and fluid-filled, measuring up to 13 mm in diameter with moderate periappendiceal fat stranding and trace free fluid. There is indistinctness of the wall of the tip of the appendix which may reflect focal rupture (axial series 201 image 105 and coronal series 202 image 72). A developing fluid collection near the tip of the appendix measuring up to 1.2 x 2.9 x 3.0 cm (axial series 201 image 112 and coronal series 202 image 71). No free intraperitoneal air. Extensive colonic diverticulosis without evidence of acute diverticulitis. Lymph nodes: No lymphadenopathy. Vascular: Moderate atherosclerosis. No aneurysm. Abdominal wall: No significant finding. 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 Procedure Note Raul Mccurdy MD - 01/02/2024 CT ABDOMEN PELVIS W CONTRAST 01/02/2024 1:28 PM Signs and Symptoms/Comments: rlq abdominal pain; Technique: CT of the abdomen and pelvis was performed following theadministration of intravenous contrast. This CT used either dose modulation and/or iterative reconstructiontechniques to lower radiation dose. Comparison: None. Findings: Lower chest: Mild atelectasis at the lung bases. Liver: Mild/moderate hepatic steatosis. No suspicious hepatic lesion. Gallbladder: No significant finding. Bile ducts: No significant finding. Spleen: No significant finding. Pancreas: No significant finding. Adrenal glands: No significant finding. Kidneys, ureters, bladder: No suspicious renal mass. No hydronephrosis orurolithiasis. Ureters normal in caliber. Apparent focal wall thickening ofthe right lateral aspect of the urinary bladder (axial series 201 [id number]). Reproductive organs: Uterus anteverted. Apparent moderate endometrialthickening for postmenopausal age, measuring up to approximately 13 mm.Suspected posterior submucosal fibroid or other mass. Bowel and peritoneal space: Stomach and small bowel normal. Abnormalappendix which is thick walled, dilated and fluid-filled, measuring up to13 mm in diameter with moderate periappendiceal fat stranding and tracefree fluid. There is indistinctness of the wall of the tip of the appendixwhich may reflect focal rupture (axial series 201 image 105 and coronalseries 202 image 72). A developing fluid collection near the tip of theappendix measuring up to 1.2 x 2.9 x 3.0 cm (axial series 201 image 112and coronal series 202 image 71). No free intraperitoneal air. Extensivecolonic diverticulosis without evidence of acute diverticulitis. Lymph nodes: No lymphadenopathy. Vascular: Moderate atherosclerosis. No aneurysm. Abdominal wall: No significant finding. 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 IMPRESSION 1. Acute appendicitis. Possible rupture of the tip of the appendix.Developing periappendiceal fluid collection measuring approximate 1.2 x2.9 x 3.0 cm. 2. Extensive colonic diverticulosis without evidence of acutediverticulitis. 3. Apparent abnormal thickening of the endometrium. Apparent posteriorsubmucosal fibroid or other mass lesion. Recommend further assessment julieta with ultrasound. 4. Hepatic steatosis. [id number] Melba Umanzor MD IMG CT ORDERABLES * (ABNORMAL) UA SEDIMENT + REFLEX TO CULTURE (01/02/2024 13:08 EDT) Urine RBC Count, Manual 0 - 2 0 - 2 Cells/HPF 01/02/2024 13:30 EDT [facility] Urine WBC Count 0 - 3 0 - 3 Cells/HPF 01/02/2024 13:30 EDT [facility] Urine Squamous Count, Manual Many(A) None Seen Cells/HPF 01/02/2024 13:30 EDT [facility] Urine Hyaline Cast Count, Manual <=10 <=10 Casts/LPF 01/02/2024 13:30 EDT [facility] Urine Bacteria Count, Manual None Seen None Seen Bacteria/H PF 01/02/2024 13:30 EDT [facility] Urine URINE SPECIMEN COLLECTION, CATHETERIZED / Unknown Urine Collect / Unknown 01/02/2024 13:08 EDT 01/02/2024 13:13 EDT Narrative [facility] - 01/02/2024 13:30 EDT Urine Sediment Analysis results are unreliable on urines that are unrefrigerated for >2 hrs or refrigerated >8 hrs. NOTE: Reflex to Urine Culture test is not indicated based on Urine Sediment Analysis results. Melba Umanzor MD URINALYSIS ORDERAB LES [facility] [address] [place] [id number] * HOLD BLUE TOP (01/02/2024 13:03 EDT) Hold Hold 01/02/2024 14:15 EDT [facility] Blood VENOUS BLOOD / Unknown Venipuncture / Unknown 01/02/2024 13:03 EDT 01/02/2024 13:13 EDT Melba Umanzor MD LAB INFO SERVICE A ND SUPPORT & PHONE RESULT Performing Organization Address [facility]/ZIP Co de Phone Number [facility] [address] [place] [address] * HOLD GREEN TOP (01/02/2024 13:03 EDT) Hold Hold 01/02/2024 14:15 EDT [facility] Blood VENOUS BLOOD / Unknown Venipuncture / Unknown 01/02/2024 13:03 EDT 01/02/2024 13:13 EDT Melba Umanzor MD LAB INFO SERVICE A ND SUPPORT & PHONE RESULT Performing Organization Address [facility] Co de Phone [facility] [address] [place] [address] * (ABNORMAL) C REACTIVE PROTEIN (01/02/2024 13:03 EDT) Pathologist [facility] C-Reactive Protein 62.7(H) <10.0 mg/L 01/02/2024 13:34 EDT [facility] Blood VENOUS BLOOD / Unknown Venipuncture / Unknown 01/02/2024 13:03 EDT 01/02/2024 13:13 EDT Melba Umanzor MD CHEMISTRY & BLOOD GAS ORDERABLES Performing Organization Address [facility] Co de [facility] [address] [place] [address] * (ABNORMAL) COMPREHENSIVE METABOLIC PANEL (CMP) (01/02/2024 13:03 EDT) Sodium 136 136 - 145 mmol/L 01/02/2024 13:34 EDT [facility] Potassium 4.3 3.5 - 5.0 mmol/L 01/02/2024 13:34 EDT [facility] Chloride 102 96 - 110 mmol/L 01/02/2024 13:34 EDT [facility] CO2 Total 23 22 - 32 mmol/L 01/02/2024 13:34 EDT [facility] Glucose 141(H) 70 - 99 mg/dl 01/02/2024 13:34 [facility] BUN 25 10 - 26 mg/dL 01/02/2024 13:34 [facility] Creatinine 0.72 0.52 - 1.04 mg/dL 01/02/2024 13:34 [facility] eGFR 82 >60 mL/min/1.7 3m2 01/02/2024 13:34 [facility] Total Protein 6.0(L) 6.3 - 8.2 g/dL 01/02/2024 13:34 [facility] Albumin 3.1(L) 3.4 - 4.9 g/dL 01/02/2024 13:34 [facility] Alkaline Phosphatase 88 38 - 126 U/L 01/02/2024 13:34 [facility] AST 25 15 - 46 U/L 01/02/2024 13:34 [facility] ALT 30 <35 U/L 01/02/2024 13:34 [facility] Bilirubin, Total 0.8 <1.4 mg/dL 01/02/20 13:34 [facility] Calcium 9.3 8.5 - 10.5 mg/dL 01/02/2024 13:34 [facility] Albumin/Globulin Ratio 1.1 1.0 - 2.5 01/02/2024 13:34 [facility] Anion Gap 11 5 - 14 mmol/L 01/02/2024 13:34 [facility] Blood VENOUS BLOOD / Unknown Venipuncture / Unknown 01/02/2024 13:03 EDT 01/02/2024 13:13 EDT Melba Umanzor MD CHEMISTRY & BLOOD GAS ORDERABLES [facility] [address] [place] [address] * (ABNORMAL) COMPLETE BLOOD COUNT AND DIFFERENTIAL (01/02/2024 13:03 EDT) [facility] WBC 10.60 4.00 - 12.40 K/cmm 01/02/2024 13:15 [facility] RBC 4.01 3.86 - 5.04 M/cmm 01/02/2024 13:15 [facility] Hemoglobin 12.9 11.6 - 15.2 g/dL 01/02/2024 13:15 [facility] HCT 38.0 34.9 - 44.4 % 01/02/2024 13:15 [facility] MCV 95 81 - 98 fL 01/02/2024 13:15 [facility] MCH 32.2 26.7 - 33.3 pg 01/02/2024 13:15 [facility] MCHC 33.9 32.1 - 35.9 g/dL 01/02/2024 13:15 [facility] RDW-CV 13.7 <14.7 % 01/02/2024 13:15 [facility] RDW-SD 48.3 <50.4 fl 01/02/2024 13:15 [facility] PLT 234 141 - 377 K/cmm 01/02/2024 13:15 [facility] MPV 9.7 9.5 - 12.7 fL 01/02/2024 13:15 [facility] % Neutrophils 79.9 % 01/02/2024 13:15 [facility] % Lymphocytes 7.4 % 01/02/2024 13:15 [facility] % Monocytes 9.0 % 01/02/2024 13:15 [facility] % Eosinophils 2.5 % 01/02/2024 13:15 [facility] % Basophils 0.3 % 01/02/2024 13:15 [facility] % Immature Grans 0.9 % 01/02/20 13:15 [facility] Absolute Neutrophils 8.48 2.20 - 8.85 K/cmm 01/02/2024 13:15 [facility] Absolute Lymphocytes 0.78(L) 1.09 - 3.30 K/cmm 01/02/2024 13:15 EDT [facility] Absolute Monocytes 0.95(H) 0.10 - 0.80 K/cmm 01/02/2024 13:15 EDT [facility] Absolute Eosinophils 0.26 0.03 - 0.61 K/cmm 01/02/2024 13:15 EDT [facility] ABS Basophils 0.03 0.01 - 0.11 K/cmm 01/02/2024 13:15 EDT [facility] Absolute Immature Grans 0.10(H) 0.00 - 0.06 K/cmm 01/02/2024 13:15 EDT [facility] Type of Differential: Auto 01/02/2024 13:15 [facility] Blood VENOUS BLOOD / Unknown Venipuncture / Unknown 01/02/2024 13:03 EDT 01/02/2024 13:13 EDT Melba Umanzor MD PACKAGES & DNA PRO BE ORDERABLES Performing Organization Address City/State/[facility] Co de Phone Number [facility] [address] [place] [address] documented in this encounter Visit Diagnoses Diagnosis Perforated appendicitis- Primary Acute appendicitis with generalized peritonitis Perforated appendicitis Acute appendicitis with generalized peritonitis Intra-abdominal abscess (HCC-CMS) Peritoneal abscess Acute appendicitis, unspecified acute appendicitis type CVD (cardiovascular disease) [I25.10] Unspecified cardiovascular disease Intra-abdominal abscess (HCC-CMS) Peritoneal abscess CVD (cardiovascular disease) [I25.10] Unspecified cardiovascular disease Acute appendicitis, unspecified acute appendicitis type Acute appendicitis with peritoneal abscess- Primary documented in this encounter Admitting Diagnoses Diagnosis Perforated appendicitis Acute appendicitis with generalized peritonitis documented in this encounter Administered Medications Inactive Administered Medications - up to 3 most recent administrations Medication Order MAR Action Action Date Dose Rate Site acetaminophen (TYLENOL) suppository 650 mg 650 mg, rectal, EVERY 4 HOURS PRN, Starting on Sun01/02/24 at 1532, Until Sun01/11/24 at 1451, Pain, Routine acetaminophen (TYLENOL) tablet 650 mg 650 mg, oral, EVERY 4 HOURS PRN, Starting on Sun01/02/24 at 1532, Until Sun01/11/24 at 1451, Pain, Routine Given 01/10/2024 22:20 EDT 650 mg amoxicillin-clavulanate (AUGMENTIN) 875-125 mg per tablet 1 Tablet 1 Tablet, oral, EVERY 12 HOURS, 14 doses, First dose on Sun01/09/24 at 2100, Last dose on Sun01/16/24 at 0900, Routine Given 01/11/2024 10:00 EDT 1 Tablet Given 01/10/2024 20:19 EDT 1 Tablet Given 01/10/2024 8:38 EDT 1 Tablet aspirin chewable tablet 81 mg 81 mg, oral, DAILY, First dose on Sun01/03/24 at 0900, Until Discontinued, Routine Given 01/11/2024 9:58 EDT 81 mg Given 01/10/2024 8:38 EDT 81 mg Given 01/09/2024 8:37 EDT 81 mg atorvastatin (LIPITOR) tablet 40 mg 40 mg, oral, AT BEDTIME, First dose on Sun01/02/24 at 2245, Until Discontinued, Routine Given 01/10/2024 20:19 EDT 40 mg Given 01/09/2024 21:00 EDT 40 mg Given 01/07/2024 22:24 EDT 40 mg carvedilol (COREG) tablet 3.125 mg 3.125 mg, oral, 2 TIMES DAILY WITH BREAKFAST & DINNER, First dose on Sun01/03/24 at 0800, Until Discontinued, Routine Given 01/11/2024 10:00 EDT 3.125 mg Given 01/10/2024 17:50 EDT 3.125 mg Given 01/10/2024 8:37 EDT 3.125 mg enoxaparin (LOVENOX) injection 40 mg 40 mg, subcutaneous, DAILY, First dose on Sun01/03/24 at 0900, Until Discontinued, Routine Given 01/09/2024 8:36 EDT 40 mg Given 01/08/2024 9:56 EDT 40 mg Given 01/07/2024 9:18 EDT 40 mg enoxaparin (LOVENOX) injection 40 mg 40 mg, subcutaneous, AT BEDTIME, First dose (after last reorder) on Sun01/11/24 at 2100, Until Discontinued, Routine ibuprofen (MOTRIN) tablet 400 mg 400 mg, oral, EVERY 6 HOURS PRN, Starting on Sun01/02/24 at 2216, Until Sun01/11/24 at 1451, Moderate Pain 4-6, Routine Given 01/06/2024 20:38 EDT 400 mg Given 01/05/2024 21:22 EDT 400 mg iohexoL (OMNIPAQUE 350) solution 100 mL 100 mL, intravenous, Once in imaging, 1 dose, Starting on Sun01/02/24 at 1328, Until Sun01/02/24 at 1332, Routine Given 01/02/2024 13:32 EDT 100 mL iohexoL (OMNIPAQUE 350) solution 100 mL 100 mL, intravenous, Once in imaging, 1 dose, Starting on Sun01/09/24 at 0911, Until Sun01/09/24 at 0940, Routine Given 01/09/2024 9:40 EDT 100 mL irbesartan (AVAPRO) tablet 75 mg 75 mg, oral, DAILY, First dose on Sun01/03/24 at 0900, Until Discontinued Given 01/11/2024 9:58 EDT 75 mg Given 01/10/2024 8:38 EDT 75 mg Given 01/09/2024 8:37 EDT 75 mg lactated ringers (LR) infusion at 75 mL/hr, intravenous, CONTINUOUS, Starting on Sun01/10/24 at 0800, Until Sun01/11/24 at 0754, Routine New Bag 01/11/2024 4:43 EDT 75 mL/hr New Bag 01/10/2024 8:43 EDT 75 mL/hr levothyroxine (SYNTHROID) tablet 100 mcg 100 mcg, oral, DAILY BEFORE BREAKFAST, First dose on Sun01/03/24 at 0600, Until Discontinued, Routine Given 01/11/2024 5:15 EDT 100 mcg Given 01/10/2024 6:58 EDT 100 mcg Given 01/09/2024 6:36 EDT 100 mcg pantoprazole (PROTONIX) injection 40 mg 40 mg, intravenous, DAILY, First dose on Sun01/03/24 at 0900, Until Discontinued, Routine pantoprazole (PROTONIX) tablet 40 mg 40 mg, oral, DAILY, First dose on Sun01/03/24 at 0900, Until Discontinued, Routine Given 01/11/2024 9:58 EDT 40 mg Given 01/10/2024 8:37 EDT 40 mg Given 01/09/2024 8:37 EDT 40 mg piperacillin-tazobactam (ZOSYN) 3.375 g in sodium chloride (NS MBP) 100 mL IVPB 3.375 g, intravenous, Administer over 4 Hours, EVERY 6 HOURS, 23 doses, First dose on Sun01/02/24 at 2300, Last dose on Sun01/08/24 at 1100, Type of Therapy: Empiric, Suspected Indication (Select all that apply): Community acquired intra-abdominal infection (ICU admission), Routine Given 01/08/2024 11:12 EDT 3.375 g Given 01/08/2024 5:15 EDT 3.375 g Given 01/07/2024 22:24 EDT 3.375 g piperacillin-tazobactam 4.5 g in sodium chloride (NS MBP) 100 mL IVPB 4.5 g, intravenous, Administer over 4 Hours, NOW X1, 1 dose, On Sun01/02/24 at 1445, Type of Therapy: Empiric, Suspected Indication (Select all that apply): Community acquired intra-abdominal infection (ICU admission), STAT Given 01/02/2024 1 5:02 EDT 4.5 g polyethylene glycol 3350 (MIRALAX) packet 17 g 17 g, oral, DAILY, First dose on Karrie 01/03/24 at 0900, Until Discontinued, Routine Given 01/11/2024 10:00 EDT 17 g Given 01/09/2024 8:36 EDT 17 g Given 01/08/2024 9:59 EDT 17 g documented in this encounter Active and Recently Administered Medications Times are shown in EDT. Scheduled Medication Order 01/09/2024 01/10/2024 01/11/2024 amoxicillin-clavulanat e (AUGMENTIN) 875-125 mg per tablet 1 Tablet 1 Tablet, oral, EVERY 12 HOURS, 14 doses, First dose on Sun01/09/24 at 2100, Last dose on Sun01/16/24 at 0900, Routine 2100 (Given - Provider: Alfonso Payne RN) 0838 (Given - Provider: Martha Aivla RN)1301 (NOV Hold - Provider: User Marcin - Reason: Patient on Leave of Absence)1701 (NOV Unhold - Provider: User Marcin)2019 (Given - Provider: Mar Burden RN) 1000 (Given - Provider: Mahesh Rucker LPN) aspirin chewable tablet 81 mg 81 mg, oral, DAILY, First dose on Sun01/03/24 at 0900, Until Discontinued, Routine 0837 (Given - Provider: Mahesh Rucker LPN) 0838 (Given - Provider: Martha Avila RN)1301 (NOV Hold - Provider: User Epic - Reason: Patient on Leave of Absence)1701 (NOV Unhold - Provider: User Marcin) 0958 (Given - Provider: Mahesh Rucker LPN) atorvastatin (LIPITOR) tablet 40 mg 40 mg, oral, AT BEDTIME, First dose on Sun01/02/24 at 2245, Until Discontinued, Routine 2100 (Given - Provider: Alfonso Payne RN) 1301 (NOV Hold - Provider: User Epic - Reason: Patient on Leave of Absence)170 (NOV Unhold - Provider: User Epic)2019 (Given - Provider: Mar Burden RN) carvedilol (COREG) tablet 3.125 mg 3.125 mg, oral, 2 TIMES DAILY WITH BREAKFAST & DINNER, First dose on Sun01/03/24 at 0800, Until Discontinued, Routine 0837 (Given - Provider: Mahesh Rucker LPN)1703 (Given - Provider: Mahesh Rucker LPN) 0837 (Given - Provider: Martha Avila RN)1301 (NOV Hold - Provider: User Epic - Reason: Patient on Leave of Absence)1701 (NOV Unhold - Provider: User Marcin)1750 (Given - Provider: Martha Avila RN) 1000 (Given - Provider: Mahesh Rucker LPN) enoxaparin (LOVENOX) injection 40 mg (CANCELED) 40 mg, subcutaneous, DAILY, First dose on Sun01/03/24 at 0900, Until Discontinued, Routine 0836 (Given - Provider: Mahesh Rucker LPN) enoxaparin (LOVENOX) injection 40 mg 40 mg, subcutaneous, AT BEDTIME, First dose (after last reorder) on Sun01/11/24 at 2100, Until Discontinued, Routine iohexoL (OMNIPAQUE 350) solution 100 mL (COMPLETED) 100 mL, intravenous, Once in imaging, 1 dose, Starting on Sun01/09/24 at 0911, Until Sun01/09/24 at 0940, Routine 0940 (Given - Provider: Seth Aquino) irbesartan (AVAPRO) tablet 75 mg 75 mg, oral, DAILY, First dose on Sun01/03/24 at 0900, Until Discontinued 0837 (Given - Provider: Mahesh Rucker LPN) 0838 (Given - Provider: Martha Avila, RN)1301 (NOV Hold - Provider: User Epic - Reason: Patient on Leave of Absence)170 (MAR Unhold - Provider: User Marcin) 0958 (Given - Provider: Mahesh Rucker LPN) levothyroxine (SYNTHROID) tablet 100 mcg 100 mcg, oral, DAILY BEFORE BREAKFAST, First dose on Sun01/03/24 at 0600, Until Discontinued, Routine 0636 (Given - Provider: Alfonso Payne RN) 0658 (Given - Provider: Alfonso Payne RN)1301 (NOV Hold - Provider: User Epic - Reason: Patient on Leave of Absence)170 (MAR Unhold - Provider: User Marcin) 0515 (Given - Provider: Mar Burden RN) pantoprazole (PROTONIX) injection 40 mg(Linked Group 1) 40 mg, intravenous, DAILY, First dose on Sun01/03/24 at 0900, Until Discontinued, Routine 0837 (See Alternative - Provider: aMhesh Rucker LPN) 0837 (See Alternative - Provider: Martha Avila, ANA)1301 (NOV Hold - Provider: User Epic - Reason: Patient on Leave of Absence)170 (NOV Unhold - Provider: User Marcin) 0958 (See Alternative - Provider: Mahesh Rucker LPN) pantoprazole (PROTONIX) tablet 40 mg(Linked Group 1) 40 mg, oral, DAILY, First dose on Sun01/03/24 at 0900, Until Discontinued, Routine 0837 (Given - Provider: Mahesh Rucker LPN) 0837 (Given - Provider: Martha Avila RN)1301 (NOV Hold - Provider: User Epic - Reason: Patient on Leave of Absence)1701 (NOV Unhold - Provider: User Epic) 0958 (Given - Provider: Mahesh Rucker LPN) polyethylene glycol 3350 (MIRALAX) packet 17 g 17 g, oral, DAILY, First dose on Karrie 01/03/24 at 0900, Until Discontinued, Routine 0836 (Given - Provider: Mahesh Rucker LPN) 0854 (Not Given - Provider: Martha Avila RN - Reason: Patient/family refused - Comment: having soft stools)1301 (NOV Hold - Provider: User Epic - Reason: Patient on Leave of Absence)1701 (NOV Unhold - Provider: User Marcin) 1000 (Given - Provider: Mahesh Rucker LPN) Continuous Medication Order 01/09/2024 01/10/2024 01/11/2024 lactated ringers (LR) infusion (CANCELED) at 75 mL/hr, intravenous, CONTINUOUS, Starting on Karrie 01/10/24 at 0800, Until Sun01/11/24 at 0754, Routine 0843 (New Bag - Provider: Martha Avila RN)1301 (NOV Hold - Provider: User Epic - Reason: Patient on Leave of Absence)1701 (NOV Unhold - Provider: User Marcin) 0443 (New Bag - Provider: Mar Burden, RN) PRN Medication Order 01/09/2024 01/10/2024 01/11/2024 acetaminophen (TYLENOL) suppository 650 mg(Linked Group 2) 650 mg, rectal, EVERY 4 HOURS PRN, Starting on Sun01/02/24 at 1532, Until Sun01/11/24 at 1451, Pain, Routine 1301 (NOV Hold - Provider: U ser Epic - Reason: Patient on Leave of Absence)1701 (NOV Unhold - Provider: User Epic)2220 (See Alternative - Provider: Mar Burden, RN) acetaminophen (TYLENOL) tablet 650 mg(Linked Group 2) 650 mg, oral, EVERY 4 HOURS PRN, Starting on Sun01/02/24 at 1532, Until Sun01/11/24 at 1451, Pain, Routine 1301 (NOV Hold - Provider: U ser Epic - Reason: Patient on Leave of Absence)1701 (MAR Unhold - Provider: User Epic)2220 (Given - Provider: Mar Burden RN) HYDROmorphone (PF) (DILAUDID) 0.5 mg/0.5 mL syringe 0.2-0.4 mg 0.2-0.4 mg, intravenous, EVERY 3 HOURS PRN, Starting on Sun01/02/24 at 2216, Until Sun01/11/24 at 1451, Severe Pain 7-10, Routine 1301 (NOV Hold - Provider: U ser Epic - Reason: Patient on Leave of Absence)1701 (MAR Unhold - Provider: User Epic) ibuprofen (MOTRIN) tablet 400 mg 400 mg, oral, EVERY 6 HOURS PRN, Starting on Sun01/02/24 at 2216, Until Sun01/11/24 at 1451, Moderate Pain 4-6, Routine 1301 (MAR Hold - Provider: U ser Epic - Reason: Patient on Leave of Absence)170 (MAR Unhold - Provider: User Epic) ondansetron (PF) (ZOFRAN) injection 4 mg 4 mg, intravenous, EVERY 6 HOURS PRN, Starting on Sun01/02/24 at 2216, Until Sun01/11/24 at 1451, Nausea, Vomiting, Routine 1301 (NOV Hold - Provider: U ser Epic - Reason: Patient on Leave of Absence)1701 (MAR Unhold - Provider: User Epic) Linked Groups Order Group 1: pantoprazole (PROTONIX) tablet 40 mgJump to med 40 mg, oral, DAILY, First dose on Sun01/03/24 at 0900, Until Discontinued, Routine Or pantoprazole (PROTONIX) injection 40 mgJump to med 40 mg, intravenous, DAILY, First dose on Sun01/03/24 at 0900, Until Discontinued, Routine Group 2: acetaminophen (TYLENOL) tablet 650 mgJump to med 650 mg, oral, EVERY 4 HOURS PRN, Starting on Sun01/02/24 at 1532, Until Sun01/11/24 at 1451, Pain, Routine Or acetaminophen (TYLENOL) suppository 650 mgJump to med 650 mg, rectal, EVERY 4 HOURS PRN, Starting on Sun01/02/24 at 1532, Until Sun01/11/24 at 1451, Pain, Routine documented in this encounter Orders Medications Ordered That Anant ht Not Have Been Administered Count Last Ordered Date First Ordered Date enoxaparin (LOVENOX) injection 40 mg 1 12/30 acetaminophen (TYLENOL) suppository 650 mg 1 01/02/2024 HYDROmorphone (PF) (DILAUDID ) 0.5 mg/0.5 mL syringe 0.2-0.4 mg 1 01/02/2024 ondansetron (PF) (ZOFRAN) injection 4 mg 1 01/02/2024 pantoprazole (PROTONIX) injection 40 mg 1 0 01/02/2024 piperacillin-tazobactam (ZOS YN) 3.375 g in sodium chloride (NS MBP) 100 mL IVPB 1 01/02/2024 sodium chloride 0.9 % (NS) infusion 1 01/01 [facility] TO DOSE 1 01/02/2024 Diet Count Last Ordered Date First Orde red Date DISCHARGE DIET 1 01/11/2024 Nursing Count Last Ordered Date First Orde red Date ACTIVITY INSTRUCTIONS 1 01/11/2024 BATHING INSTRUCTIONS 1 01/11/2024 DISCONTINUE SALINE LOCK/IV 1 01/11/2024 DRIVING INSTRUCTIONS 1 01/11/2024 CALL HOSPITALIST FOR ADM/REF KARLOS TO [facility] NURSE 1 01/02/2024 CALL PHYSICIAN SPECIALTY CONSULT 1 01/02/20 MEASURE HEIGHT 1 01/02/2024 MEASURE WEIGHT 1 01/02/2024 VTE PHARMACOLOGIC PROPHYLAXI S CURRENTLY ORDERED OR ON ALTERNATIVE THER 1 01/02/2024 Consult Count Last Ordered Date First Orde red Date CONSULT HOSPITALIST 1 01/02/2024 PT Count Last Ordered Date First Orde red Date PT HOME SAFETY EVALUATION 1 01/04/2024 Admission Count Last Ordered Date First Orde red Date ADMIT TO INPATIENT 1 01/02/2024 Transfer Count Last Ordered Date First Orde red Date ED BED REQUEST 1 01/02/2024 Discharge Count Last Ordered Date First Orde red Date DISCHARGE PATIENT 1 01/11/2024 Legal Count Last Ordered Date First Orde red Date MISCELLANEOUS DISCHARGE INSTRUCTIONS 12/30 documented in this encounter Care Teams 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 Game 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 Relationship Specialty Start Date End Date Nivia Tinsley MD [address] [place] [address] PCP - General Family Medicine - Primary Care 08/27/19 Zheng Tapia MD [address] [place] [address] [address] [place] [address] Internal Medicine - Primary Care 09/01/19 Shazia Burks MD [address] [place] [address] Neurology 09/01/19 Tony Baron OD [address] [place] [phone] Regional Intermodal Truck Driver 09/01/19 Keira Paniagua MD [address] [place] [address] [address] [place] [address] Cardiovascular Disease 09/06/20 Siva Perkins MD [address] [facility] [place] [address] Neurology 09/06/20 documented as of this encounter
--- OUTSIDE RECORDS SUMMARY | 2024-04-29 18:13 | XMS_ITS | Encounter Summary ---
Author Organization [facility] Address [address] [place] [address] Care Team Providers Care Director Of Donor Relations Name Role Phone Nivia Tinsley MD Primary Care Provider Zheng Tapia MD Unavailable Shazia Burks MD Unavailable [phone] Tony Baron OD Unavailable [phone] Keira Paniagua MD Unavailable [phone] Siva Perkins MD Unavailable [phone] Reason for Visit * Reason Onset Date Comments Urinary Tract Infection 01/01/2024 Encounter Details Date Type Department Care Team (Late st Contact Info) Description 01/01/2024 Telephone [facility] Family [address] [phone] [address] [phone] Urinary Tract Infection Social History Tobacco Use Types Packs/Day Years [...] medical appointments or from getting medications? No 11/2022 In the past 12 months, has l ack of transportation kept you from meetings, work, or from getting things needed for daily living? No 01/31/2023 Housing Stability Vital Sign Answer Kenney e Recorded In the last 12 months, was t here a time when you were not able to pay the mortgage or rent on time? No 01/31/2023 In the last 12 months, how many places have you lived? 1 01/31/2023 In the last 12 months, was t here a time when you did not have a steady place to sleep or slept in a fci (including now)? No 01/31/2023 Interpersonal Safety Answer Date Record ed How [...] do you have serious difficulty h earing? No 02/21/2022 Are you blind or do you have serious difficulty seeing, even when wearing glasses? No 02/21/2022 Do you have serious difficul ty walking or climbing stairs? (5 years old or older) No 02/21/2022 Do you have difficulty dress ing or bathing? (5 years old or older) No 02/21/2022 Because of a physical, menta l, or emotional condition, do you have difficulty doing errands alone such as visiting a doctor's office or shopping? (15 years old or older) Yes 02/21/2022 Cognitive Status Response Date of Assessm ent Because of a physical, menta l, or emotional condition, do you have serious difficulty concentrating, remembering, or making decisions? (5 years old or older) No 02/21/2022 documented as of this encounter Miscellaneous Notes * Telephone Encounter - Claudia Vizcarra - 01/01/2024 1031 EDT Scheduled appt for tomorrow with LEONA * Telephone Encounter - Claudia Vizcarra - 01/01/2024 0911 EDT Incoming Call What is the patient's primary concern today? Please include all symptoms Frequent urination, increased confusion How long has the patient been experiencing this? A few days What has the patient tried at home to care for this (if applicable)? Has anything made this worse or better? Does the patient have anything else to include? These are the symptoms pt has had in the pat when she had a UTI. documented in this encounter Plan of Treatment Upcoming Encounters Date Type Department Care Team (Late st Contact Info) Description 06/11/2024 12:45 EDT Office Visit [facility] Ophthalmology [facility] [address] [place] [address] Santiago Anthony MD [address] [place] [address], [address] [place] [address] 07/15/2024 10:45 EDT Office Visit [facility] Cardiology Clinic [address] [place] [address] Gianfranco Flowers MD [address] [place] [phone] documented as of this encounter Visit Diagnoses Not on filedocumented in this encounter Care Teams Director Of Donor Relations Relationship Specialty Start Date End Date Nivia Tinsley MD [address] [place] [address] PCP - General Family Medicine - Primary Care 08/27/19 Zheng Tapia MD [address] [place] [address] Internal Medicine - Primary Care 09/01/19 Shazia Burks MD [address] [place] [address] Neurology 09/01/19 Tony Baron OD [address] [place] [phone] Instructional Technologist 09/01/19 Keira Paniagua MD [address] [place] [address] [address] Cardiovascular Disease 09/06/20 Siva Perkins MD [address] [facility] [place] [place] [address] Neurology 09/06/20 documented as of this encounter
--- OUTSIDE RECORDS SUMMARY | 2024-04-29 18:13 | XMS_ITS | Encounter Summary ---
Author Organization [facility] Address [address] [place] [address] Care Team Providers Care Pipe Assembly Worker Name Role Phone Nivia Tinsley MD Primary Care Provider Zheng Tapia MD Unavailable Shazia Burks MD Unavailable [phone] Tony Baron OD Unavailable [phone] Keira Paniagua MD Unavailable [phone] Siva Perkins MD Unavailable [phone] Sheryl Schwab RN Unavailable Ladonna Candelario Unavailable Unavailable Reason for Referral * Referral (Routine/Next Available) - Authorization Not Required Specialty Diagnoses / Procedures [facility] Referred To Contact Multidisciplinary Diagnoses Need for follow-up by manager social work Nivia Tinsley MD [address] [place] [address] [facility] Community Health Team [address] [facility], [address] [place] [address] Referral ID Status Reason Start Date Expiration Date Visits Requested Visits Authorized [id number] Authorization Not Required Specialty Services Required 4 1 1 Question Answer Reason for Request: coordination of care following d/c from MICAH Comments Patient is currently in [facility]. Daughter and son listed in chart are best contacts. May be easier to get in touch with Son. Reason for Visit * Reason Onset Date Comments Follow-up 01/14/2024 Encounter Details Date Type Department Care Team (Late st Contact Info) Description 01/14/2024 Telephone [facility] [address] [place] [address] [address] Follow-up Social History Tobacco Use Types Packs/Day [...] place to sleep or slept in a usp (including now)? No 01/03/2024 Interpersonal Safety Answer [...] encounter Miscellaneous Notes * Telephone Encounter - Isabela Mckeonthia - 01/25/2024 0846 EDT [facility] called - they went to deliver a couple of times and she wasn't there - advised them she was in Rehab, They asked if we could notify them when she's discharged so they can restart bubble packs. * Telephone Encounter - Nivia Tinsley MD - 01/21/2024 0928 EDT Noted * Telephone Encounter - Fay Dotson RN - 01/21/2024 0906 EDT Nurse was able to get in contact with the patient's son who reports she is in [facility] at [facility].They have a 14 day care management meeting on Sunday with Vinh at [facility] to see where the patient is at in her care. Nurse will refer to our manager long term care for follow up as well as they have a lot of questions about what care may look like following discharge and are doing the best we can tomanage all of this. We will then get them set up with an appointment in office with PCP if plan isto discharge home with PCP still managing care. * Telephone Encounter - Nivia Tinsley MD - 01/21/2024 0858 EDT I found this in the discharge summary of 01/11/[address] Hazel: Surgical follow-up should be arranged in 4 to 6 weeks. However if more convenient this can be obtained in [place]. I am wondering if she is in [place]? I am assuming she is not coming today? * Telephone Encounter - Nivia Tinsley MD - 01/21/2024 0842 EDT If she is at a subacute rehab, I do not think she will be coming in this morning. Can we call and find out if she has been discharged from subacute rehab? * Telephone Encounter - Jay Cevallos - 01/14/2024 0748 EDT Follow Up Request: Requester: Visit/Discharge date: 01/11/24 Location: Hospital (Location: [facility]) Appt scheduled: Yes. Comments: 01/21/24 0915 Patient informed? No Discharge documentation requested? Y in Epic Please ensure to record caller's phone number in Contacts for follow up communications. documented in this encounter Plan of Treatment Upcoming Encounters Date Type Department Care Team (Late st Contact Info) Description 06/11/2024 12:45 EDT Office Visit [address] [address] Santiago Anthony MD [address] [place] [address] 5 [place] [address] 07/15/2024 10:45 EDT Office Visit [facility] Cardiology Clinic [address] [place], [place] [phone] Gianfranco Flowers MD [address] [facility]- [address] [place] [phone] Scheduled Referrals Name Type Priority Associated Diagnoses Order Schedule AMB CONS/FOLLOW UP OUTPATIENT CARE MANAGEMENT - [facility] Outpatient Referral Routine/Next Available Need for follow-up by manager social work Expected: 01/28/2024 (Approximate), Expires: 01/20/2025 documented as of this encounter Visit Diagnoses Diagnosis Need for follow-up by manager social work- Primary documented in this encounter Care Teams Pipe Assembly Worker Relationship Specialty Start Date End Date Nivia Tinsley MD [address] [place] [phone] PCP - General Family Medicine - Primary Care 08/27/19 Zheng Tapia MD [address] [place] [address] [address] [place] [address] Internal Medicine - Primary Care 09/01/19 Shazia Burks MD [address] [place] [address] Neurology 09/01/19 Tony Baron OD [address] [place] [phone] Sales Agent Casualty Insurance 09/01/19 Keira Paniagua MD [address] [place] [address] [address] [place] [phone] Cardiovascular Disease 09/06/20 Siva Perkins MD [address] [place] [address] Neurology 09/06/20 Sheryl Schwab, ANA [address] [place], [place] [address] Electrical And Instrument Technician 01/23/24 01/23/24 Ladonna Candelario Electrical And Instrument Technician 01/23/24 documented as of this encounter
--- OUTSIDE RECORDS SUMMARY | 2024-04-29 18:13 | XMS_ITS | Encounter Summary ---
Author Organization [facility] Address [address] [place] [address] Care Team Providers Care Soil Technologist Name Role Phone Nivia Tinsley MD Primary Care Provider Zheng Tapia MD Unavailable Shazia Burks MD Unavailable [phone] Tony Baron OD Unavailable [phone] Keira Paniagua MD Unavailable [phone] Siva Perkins MD Unavailable [phone] Reason for Visit * Reason Comments Urinary Tract Infection * Auth/Cert (Routine) Specialty Diagnoses / Procedures Referred By Contac t Referred To Contact Diagnoses CVD (cardiovascular disease) Intra-abdominal abscess ([facility]) Perforated appendicitis complicated by acute appendicitis Acute appendicitis, unspecified acute appendicitis type CVD (cardiovascular disease) [I25.10] Referral ID Status Reason Start Date Expiration Date Visits Re quested Visits Authorized [id number] 1 1 Encounter Details Date Type Department Care Team (Late st Contact Info) Description 01/02/2024 10:45 EDT Office Visit [facility] Integrative Family Medicine [facility] [address] [place] [address] Katie Brand MD [address] [place] [address] Urine frequency (Primary Dx) Social History Tobacco Use Types Packs/Day Years [...] in a skilled nursing (including now)? No 01/03/2024 Interpersonal Safety Answer [...] Sign Reading Time Taken Comments Blood Pressure 150/100 01/02/2024 1033 EDT Pulse 76 01/02/2024 1033 EDT Temperature 36.9 ??C (98.4 ??F) 01/02/2024 1033 EDT Respiratory Rate 12 01/02/2024 1033 EDT Oxygen Saturation - - Inhaled Oxygen Concentration - - Weight - - Height - - Body Mass Index - - documented in this encounter Functional Status Functional [...] a physical, menta l, or emotional condition, does this person have serious difficulty concentrating, remembering, or making decisions? Yes 01/02/2024 documented as of this encounter Progress Notes * Linda Rodgers RN - 01/02/2024 1045 EDT Side pain off and on. Confusion, weakness. Strong smelling urine, frequency. Recent UTI. * Katie Brand MD - 01/02/2024 1045 EDT Primary Care Office Visit Assessment & Plan Diagnoses and all orders for this visit: Urine frequency Comments: -suspect UTI, worsening confusion. No signs of sepsis on vitals. Unable to urinate Refer to ED for labs to check Cr, UA/culture and other jackson as necessary Orders: - POCT URINE DIPSTICK, VISUAL READ No follow-ups on file. Patient education was direct. Barriers were assessed and addressed as needed. I spent a total of 20 minutes on the date of this encounter meeting with the patient and reviewing documentation/coordinating care as described in the above note. Unless otherwise noted, no procedures were performed at the time of the visit. Alley Hylton is a 83 y.o. female presenting with Urinary Tract Infection HPI Per Concetta's caregiver Concetta has had UTIs in the past. On review of her chart last was in August, she needed to go to the ED at that time because because she could not urinate. She has increasing can fusion with UTIs. The caregiver does not note any new weakness or signs of stroke. Denies fever.Patient reports urinary frequency, hesitancy and pain. Today she cannot urinate after multiple attempts Data reviewed this visit: problem list/past medical history, current medications, allergies, last visit note, and recent labs ROS - See HPI Objective BP (!) 150/100 (BP Cuff Sizes: Adult, regular) Pulse 76 Temp 36.9 ??C (98.4 ??F) (Oral) Resp 12 Physical Exam General: Awake alert in no acute distress HEENT: Moist mucous membranes, pupils equal and reactive, neck supple, no JVD Extremities: Warm, dry, no edema Skin: Intact, no rash. I did not examine the patient's sacrum Neurologic: Cranial Nerves 2-12 intact. No focal deficits, sensationintact to light touch throughout. Answers questions tangentially, not sure where she is documented in this encounter Plan of Treatment Upcoming Encounters Date Type Department Care Team (Late st Contact Info) Description 06/11/2024 12:45 EDT Office Visit [facility] [address] [place] [address] Santiago Anthony MD [address] [place] [address], [address] [place] [address] 07/15/2024 10:45 EDT Office Visit [facility] Cardiology Clinic [address] [place] [address] Gianfranco Flowers MD 130 [facility] [address] [phone] documented as of this encounter Visit Diagnoses Diagnosis Urine frequency- Primary Urinary frequency documented in this encounter Care Teams Soil Technologist Relationship Specialty Start Date End Date Nivia Tinsley MD [address] [place] [address] PCP - General Family Medicine - Primary Care 08/27/19 Zheng Tapia MD [address] [place] [phone] Internal Medicine - Primary Care 09/01/19 Shazia Burks MD [address] [place] [address] Neurology 09/01/19 Tony Baron OD [address] [place] [phone] Frozen Yogurt Maker 09/01/19 Keira Paniagua MD [address] [place] [address] [address] Cardiovascular Disease 09/06/20 Siva Perkins MD [address] [facility] [place] [address] Neurology 09/06/20 documented as of this encounter
--- OUTSIDE RECORDS SUMMARY | 2024-04-29 18:13 | XMS_ITS | Encounter Summary ---
Author Organization [facility] Address [address] [place] [address] Care Team Providers Care Technical Sales Representatives Name Role Phone Nivia Tinsley MD Primary Care Provider [phone] Zheng Tapia MD Unavailable Shazia Burks MD Unavailable [phone] Tony Baron OD Unavailable [phone] Keira Paniagua MD Unavailable [phone] Siva Perkins MD Unavailable [phone] Encounter Details Date Type Department Care Team (Latest Contact Info) Description 01/09/2024 Travel Social History Tobacco Use Types Packs/Day Years [...] slept in a alf (including now)? No 01/03/2024 Interpersonal Safety Answer [...] No 01/02/2024 Cognitive Status Response Date of Assess ent Because of a physical, menta l, or emotional condition, do you have serious difficulty concentrating, remembering, or making decisions? (5 years old or older) No 01/02/2024 documented as of this encounter Plan of Treatment Upcoming Encounters Date Type Department Care Team (Late st Contact Info) Description 06/11/2024 12:45 EDT Office Visit [facility] Ophthalmology - [place] [address] [place], [place] [phone] Santiago Anthony MD 111 [facility] 5 [place] [address] 07/15/2024 10:45 EDT Office Visit [facility] Cardiology Clinic [address] [place], [place] [phone] Gianfranco Flowers MD 130 [facility] [address] [place] [phone] documented as of this encounter Visit Diagnoses Not on filedocumented in this encounter Care Teams Technical Sales Representatives Relationship Specialty Start Date End Date Nivia Tinsley MD [address] [place] [phone] PCP - General Family Medicine - Primary Care 08/27/19 Zheng Tapia MD [address] [place] [address] [address] [place] [address] Internal Medicine - Primary Care 09/01/19 Shazia Burks MD [address] [place], [place] [address] Neurology 09/01/19 Tony Baron OD [address] [place] [phone] Parts Professional 09/01/19 Keira Paniagua MD [address] [place] [phone] Cardiovascular Disease 09/06/20 Siva Perkins MD [address] [place] [phone] Neurology 09/06/20 documented as of this encounter
--- OUTSIDE RECORDS SUMMARY | 2024-04-29 18:13 | XMS_ITS | Encounter Summary ---
Author Organization [facility] Address [address] [place] [address] Care Team Providers Care Ham Smoker Name Role Phone Nivia Tinsley MD Primary Care Provider Zheng Tapia MD Unavailable Shazia Burks MD Unavailable Tony Baron OD Unavailable [phone] Keira Paniagua MD Unavailable Siva Perkins MD Unavailable [phone] Encounter Details Date Type Department Care Team (Late st Contact Info) Description 01/10/2024 13:00 EDT - 01/10/2024 23:59 EDT Hospital Encounter [facility] Interventional Radiology Unit [address], [place] [phone] Dulce Monte MD [address] [place], [place] [phone] Shola Duran MD [address] [facility], [address] 1 [place] [address] Acute appendicitis with peritoneal abscess (Primary Dx) Discharge Disposition: Home or [...] place to sleep or slept in a halfway (including now)? No 01/03/2024 Interpersonal Safety Answer [...] Sign Reading Time Taken Comments Blood Pressure 156/67 01/10/2024 1600 EDT Pulse - - Temperature 36.7 ??C (98.1 ??F) 01/10/2024 1610 EDT Respiratory Rate 16 01/10/2024 1600 EDT Oxygen Saturation 90% 01/10/2024 1600 EDT Inhaled Oxygen Concentration - - Weight 63.5 kg (140 lb) 01/10/2024 1312 EDT Height 167.6 cm (5' 6) 01/10/2024 1312 EDT Body Mass Index 22.6 01/10/2024 1312 EDT documented in this encounter Functional Status [...] * Discharge Instructions* Kannan Pelaez RN - 01/10/2024 14:07 EDT Images from the original note were not included. Interventional Radiology Discharge Instructions for Abscess Drainage Tube Care Tube Placed -Abscess drain Date - 01/10/2024 Procedure Site - Abdomen Provider - Shola Duran MD [facility]IR Aftercare: Activity: Leave the hospital in a [...] before and after tube care. FLUSHING - Check with provider KEEPING THE DRAIN(S) SECURE - To avoid [...] hours a day, including weekends and holidays. EMPTYING-Bulb drain - Empty the bulb daily and record the output. To do this, pull the plug out of the bulb. Pour the fluid from the bulb into a measuring cup. Clean the plug with alcohol. Squeeze the bulb flat. While the bulb is flat, put the plug back into the bulb. The bulb should stay flat after it is plugged so the vacuum suction can restart. If you can't squeeze the bulb flat and plug it atthe same time, use a hard, flat surface (such as a table) to help you press the bulb flat while youre plug it. The bulb should be compressed at all times. You should be discharged with a spare bulb and Y connector before you leave the [...] into your bag. When to contact the [facility] (call visiting nurse first): 1. [...] PLEASE CALL THE INTERVENTIONAL RADIOLOGY CLINIC AT [phone], OPTION 2 TO REACH THE NURSE TRIAGE LINE. THERE WILL BE ASSISTANCE AVAILABLE 24 HOURS A DAY. IF YOU CALL AFTER HOURS YOU WILL BE CONNECTED WITHAN ON-CALL PHYSICIAN BY PRESSING 1. Follow up: A provider will perform a tube study by injecting dye into your tube while taking an xray to see ifyour abscess is smaller. Please bring a record [...] is less than 15 ml daily. Please pre-registerprior to your appointment. If you cannot come [...] Abnormal gait and legally blind daily 07/13/2017 kakehlki-azoitomgs-lwjjrx thasone (MAXITROL) 3.5mg/mL-10,000 unit/mL-0.1 % ophthalmic suspension 01/19/2023 nitroglycerin (NITROSTAT) 0.4 mg SL tabletIndications:NSTEMI (non-ST elevated myocardial infarction) ([facility]) Place 1 Tablet under [...] 60 g 3 08/28/2023 vit A,C & W-upotpt-iwammgng (OCUVITE) 300 mcg-200 mg-27 mg-2 mg tablet Take 1 tab by mouth daily 30 Tablet 11 10/16/2023 documented as of this encounter Discharge Disposition Disposition Code Departure Means Destination Home or Self Care documented in this encounter Progress Notes * Salome Brown RN - 01/10/2024 1300 EDT Have you had any of the following symptoms? Fever YES/NO: No Cough/Chest congestion/Difficulty breathing YES/NO: No Sore throat or loss of taste / smell?YES/NO: No Chills YES/NO: No Joint Pain or weakness YES/NO: No Vomiting, abdominal pain, diarrhea (more common in children) YES/NO: No Severe headache YES/NO: No New loss of taste or smell YES/NO: No See admission vital signs assessment for temperature. Pt. Arrived with [facility] ambulance service from [facility]. Alert and oriented, legally blind Report to Santiago in IR. * Kannan Pelaez RN - 01/10/2024 1300 EDT Pt in IR for Abdominal abscess drain. Patient name and verified. Consent completed and verified. Patients allergies, medications and lab results reviewed, ASA 2. Patient educated on procedure, patient verbalized understanding. Patient meets criteria to receive conscious sedation Background from chart review: CT the scan reveals a 6 to 7 cm intra-abdominal abscess related to her perforated appendicitis - Progress Notes by Danyelle Hazel MD at 01/10/2024 7:38 Events: Patient arrived to the IR suite at 1350 from CVU. Members in the room introduced. Pt moved to the IR table in supine position. Monitoring in place vital signs assessed. Patients base line pain 0 R lower abd area prepped in the usual sterile fashion with duraprep, by [facility] in accordance with fire dispatcher recommendation. See note for procedure events Lidocaine time: 1415 Patient tolerated the procedure well, report called to CVU and [phone] - [facility] Medication administered during procedure: Sedation start: 1405 Sedation stop: 1435 0.5 mg Versed given IV 50 mcg Fentanyl given IV Total sedation time: [address] Duran was here at the start of sedation and remained in the suite for at least 10 min Receiving RN to release and acknowledge Post procedure orders. * Jayme Whittington RN - 01/10/2024 1300 EDT 1610 Patient transferred to [facility] via [facility] service. Patient denies pain and tolerated PO fluids/food well. Patient transferred with IV Right AC that she arrived with from [facility]. documented in this encounter H&P Notes * Dulce Monte MD - 01/10/2024 1300 EDT The preoperative history and physical which was performed within 30 days of this procedure has been reviewed and the clinically appropriate elements of the physical examination have been repeated. There are no changes to the documented history and physical or if so such changes are documented below DULCE MONTE MD 01/10/2024 13:40 Source Note - Danyelle Hazel MD - 01/02/2024 15:08 EDT History & Physical Chief Complaint: Chief Complaint Patient presents with Altered Mental Status Dysuria Unable to void fully. Intermittent confusion since last week. Tired. Seen at clinic and suggested to come and get UTI ruled out. HPI: 83 y.o.female presents with 2 days of confusion. She lives by herself but is accompanied by a e commerce marketing analyst who helps her for 4 hours every day. The e commerce marketing analyst states she has been complaining of abdominal pain and this seemed confused to her for the last few days. The patient has a history of urinary tract infections will often become confused when these form. 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 Tapia and declines further testing CORONARY ANGIOPLASTY WITH STENT PLACEMENT 11/2021 LAD PCI. LCX MOTHER TESTER w/ R-L collaterals EYE SURGERY Medications: piperacillin-tazobactam, [...] times daily with breakfast and dinner. 10/11/23 Gianfranco Flowers MD cholecalciferol (VITAMIN D3) 1,250 mcg [...] Take 1 Tablet by mouth daily. 12/14/23 Gianfranco Flowers MD hypromellose (ISOPTO TEARS) 0.5 % [...] legally blind daily 07/13/17 Anahi Jules MD llrnzqes-xeglnxnmt-qjvveofzbkxyq (MAXITROL) 3.5mg/mL-10,000 unit/mL-0.1 % ophthalmic suspension INSTILL [...] 08/28/23 Nivia Tinsley MD vit A,C & F-qrmkcf-dwhbfljk (OCUVITE) 300 mcg-200 mg-27 mg-2 mg tablet [...] have called the patient's daughter, Melani, at [phone] and informed her of her mother status. We appreciate the opportunity to participate in this patient's care. Danyelle Hazel MD 01/02/24 15:09 documented in this encounter Procedure Notes * Dulce Monte MD - 01/10/2024 1300 EDT IR Procedure Note Procedure: Periappendiceal abscess drain placement Date Performed: 01/10/2024 Radiologist/Insurance Loss Assessor(s): MD Roger/MD Gavin Sedation/Anesthesia: Local 1% lidocaine, versed, fentanyl Time Out: A time-out was completed prior to procedure verifying correct patient, procedure, site, positioning, and special equipment if applicable. Estimated Blood Loss: Unless otherwise noted, there was no blood loss, specimens removed, cultures obtained, or drains retained. Specimens: 15cc fluid sample Contrast Volume: None Complications: None Condition: Stable Post Procedure Diagnosis: Periappendiceal abscess Findings: Successful drain placement into periappendiceal abscess with return of thick purulent fluid Recommendations: IR abscess drain check in approximately 2 weeks. DULCE MONTE MD 01/10/2024 15:00 documented in this encounter Plan of Treatment Upcoming Encounters Date Type Department Care Team (Late st Contact Info) Description 06/11/2024 12:[address] [facility] [address] [place] [address] Santiago Anthony MD [address] [place] [address], [facility] [address] [place] [address] 07/15/2024 10:45 EDT Office Visit [facility] Cardiology Clinic [address] [place] [address] Gianfranco Flowers MD 130 [facility] [address] [address] [place] [address] documented as of this encounter Procedures Procedure Name Priority Date/Time Associated Diagnosis Comments IR ABSCESS TUBE CHECK Routine 01/31/2024 9:23 EDT POCT GLUCOSE, INTERFACED Routine 01/10/2024 15:05 EDT IR U/S GUIDED DRAINAGE Routine 01/10/2024 15:00 EDT BACTERIAL CULTURE/SMEAR Routine 01/10/2024 14:50 EDT POCT GLUCOSE, INTERFACED Routine 01/10/2024 13:39 EDT documented in this encounter Results * IR ABSCESS TUBE CHECK (01/31/2024 9:23 EDT) Anatomical Region Laterality Modality N/A X-Ray Angiograph y 01/31/2024 17:3 5 EDT Impressions 01/31/2024 17:35 EDT 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 Chetan Geiger MPAS, PAPatricia, RT- (R), () Interventional Radiology I have personally reviewed the images and the above interpretation and agree with the findings. [id number] Narrative 01/31/2024 17:35 EDT IR ABSCESS TUBE [...] Contrast: 8 cc Omnipaque. Resulting Agency Comment [id number] Procedure Note Scriver, Mat Carlson MD - [...] fistulous communication tothe bowel. Chetan Geiger MPAS, PAClairC, RT- (R), (CV) Interventional Radiology I have personally reviewed the images and the above interpretation andagree with the findings. [id number] Dulce Monte MD IMG IR ORDERABLES * (ABNORMAL) POCT GLUCOSE, INTERFACED (01/10/2024 15:05 EDT) Glucose, POC 114(H) 70 - 100 mg/dL 01/10/2024 15:07 EDT [facility] HN LAB POC COMMENT (GLUCOSE) Test Performed by Nursing Services 01/10/2024 15:07 EDT [facility] Blood CAPILLARY BLOOD / Unknown 01/10/2024 15:05 EDT 01/10/2024 15:07 EDT Dulce Monte MD POINT OF CARE TEST O RDJONO Performing Organization Address [facility]/ZIP Co de Phone Number [facility] [address] [place] [address] * (ABNORMAL) BACTERIAL CULTURE/SMEAR (01/10/2024 14:50 EDT) Organism ID Few mixed gram negative organisms. 01/12/2024 16:19 EDT [facility] Smear Neutrophils Present(A) 01/12/2024 16:19 EDT [facility] Smear No bacteria seen(A) 01/12/2024 16:19 EDT [facility] Fluid ABSCESS MORPHOLOGY / Unknown 01/10/2024 14:50 EDT 01/10/2024 15:15 EDT Shola Duran MD MICROBIOLOGY - GENER AL ORDERABLES Performing Organization Address [facility] Co de Phone Number [facility] [address] [place] [address] * (ABNORMAL) POCT GLUCOSE, INTERFACED (01/10/2024 13:39 EDT) Glucose, POC 118(H) 70 - 100 mg/dL 01/10/2024 13:40 EDT [facility] HN LAB POC COMMENT (GLUCOSE) Test Performed by Nursing Services 01/10/2024 13:40 EDT [facility] Blood CAPILLARY BLOOD / Unknown 01/10/2024 13:39 EDT 01/10/2024 13:40 EDT Dulce Monte MD POINT OF CARE TEST O DURAN [facility] [address] [place], [place] [phone] documented in this encounter Visit Diagnoses Diagnosis Acute appendicitis with peritoneal abscess- Primary Appendicular abscess- Primary Acute appendicitis with peritoneal abscess documented in this encounter Administered Medications Inactive Administered Medications - up to 3 most recent administrations Medication Order MAR Action Action Date Dose Rate Site sodium chloride 0.9 % (NS) infusion 50 mL/hr, intravenous, CONTINUOUS, Starting on Karrie 01/10/24 at 1400, Until 01/12/24 at 0209, Routine, Preprocedure New Bag 01/10/2024 18:27 EDT 50 mL/hr 50 mL/hr documented in this encounter Orders Medications Ordered That Anant ht Not Have Been Administered Count Last Ordered Date First Ordered Date fentaNYL citrate (PF) injection 25-250 mcg 1 01/10/2024 flumazenil (ROMAZICON) injection 0.2 mg 1 0 01/10/2024 lidocaine (PF) 10 mg/mL (1 % ) injection 2 mg 1 01/10/2024 midazolam (VERSED) injection 0.5-10 mg 1 naloxone (NARCAN) injection 0.4 mg 1 2023 documented in this encounter Care Teams Ham Smoker Relationship Specialty Start Date End Date Nivia Tinsley MD [address] [place], [place] [phone] PCP - General Family Medicine - Primary Care 08/27/19 Zheng Tapia MD [address] [place] [address] [place] [address] Internal Medicine - Primary Care 09/01/19 Shazia Burks MD [address] [place] [address] Neurology 09/01/19 Tony Baron OD [address] [place] [phone] Loans Officer 09/01/19 Keira Paniagua MD [address] [place] [address] Cardiovascular Disease 09/06/20 Siva Perkins MD [address] [place] [address] [place] [address] Neurology 09/06/20 documented as of this encounter
--- OUTSIDE RECORDS SUMMARY | 2024-04-29 18:14 | XMS_ITS | Encounter Summary ---
Author Organization [facility] Address [address] [place] [address] Care Team Providers Care Solid Waste Division Supervisor Name Role Phone Nivia Tinsley MD Primary Care Provider [phone] Zheng Tapia MD Unavailable Shazia Burks MD Unavailable [phone] Tony Baron OD Unavailable [phone] Keira Paniagua MD Unavailable [phone] Siva Perkins MD Unavailable [phone] Reason for Visit * Reason Onset Date Comments Results 11/22/2023 Encounter Details Date Type Department Care Team (Late st Contact Info) Description 11/22/2023 Telephone [facility] Integrative Family Medicine [address] [phone] Yaa Graham, RN Results Social History Tobacco Use Types Packs/Day Years [...] place to sleep or slept in a snf (including now)? No 01/31/2023 Interpersonal Safety Answer [...] No 02/21/2022 documented as of this encounter Ordered Prescriptions Prescription Sig Dispensed Refills Start Date End Da te cholecalciferol (VITAMIN D3) 1,250 mcg (50,000 unit) capsuleIndications:Vitami n D deficiency Take 1 Capsule by mouth once a week. For 12 weeks 12 Capsule 11/22/2023 documented in this encounter Miscellaneous Notes * Telephone Encounter - Yaa Graham RN - 11/22/2023 1629 EST Patient informed of results. Vitamin D ordered. Lab ordered. * Telephone Encounter - Yaa Graham RN - 11/22/2023 6512 EST ----- Message from Nivia Tinsley MD sent at 11/22/2023 14:04 EST ----- The results are abnormal. Concetta's vitamin D is still low. This could be causing her to be fatigued. Lets do 50,000 international units once weekly for 12 weeks and recheck her vitamin D. Okay to send #12 and no refills and order a vitamin D lab for 3 months from now. documented in this encounter Plan of Treatment Upcoming Encounters Date Type Department Care Team (Late st Contact Info) Description 06/11/2024 12:45 EDT Office Visit [facility] Ophthalmology [address] [address] Santiago Anthony MD 111 [facility], [address] [place] [address] 07/15/2024 10:[address] [facility] Cardiology Clinic [address] [place] [phone] Gianfranco Flowers MD [address] [place] [address] [address] [place] [address] Scheduled Orders Name Type Priority Associated Diagnoses Orde r Schedule VITAMIN D (25,OH) Lab Routine Vitamin D deficiency Expected: 02/20/2024 (Approximate), Expires: 05/20/2024 documented as of this encounter Visit Diagnoses Diagnosis Vitamin D deficiency- Primary Unspecified vitamin D deficiency documented in this encounter Care Teams Solid Waste Division Supervisor Relationship Specialty Start Date End Date Nivia Tinsley MD [address] [place] [address] PCP - General Family Medicine - Primary Care 08/27/19 Zheng Tapia MD [address] [place] [address] [address] [place] [address] Internal Medicine - Primary Care 09/01/19 Shazia Burks MD [address] [place] [address] Neurology 09/01/19 Tony Baron, FRANCK [address] [place] [phone] Crop Farmers 09/01/19 Keira Paniagua MD [address] [facility] [address] [place] [address] Cardiovascular Disease 09/06/20 Siva Perkins MD [address] [place] [address] Neurology 09/06/20 documented as of this encounter
--- OUTSIDE RECORDS SUMMARY | 2024-04-29 18:14 | XMS_ITS | Encounter Summary ---
Author Organization [facility] Address [address] [place] [address] Care Team Providers Care Bonderizer Operator Name Role Phone Nivia Tinsley MD Primary Care Provider [phone] Zheng Tapia MD Unavailable Shazia Burks MD Unavailable [phone] Tony Baron OD Unavailable [phone] Keira Paniagua MD Unavailable [phone] Siva Perkins MD Unavailable [phone] Reason for Visit * Reason Comments Nutrition Counseling Encounter Details Date Type Department Care Team (Late st Contact Info) Description 12/28/2023 11:00 EDT Nutrition [facility] Family Medicine [facility] [address] [place] [address] [place] [address] Dietary counseling and surveillance (Primary Dx) Social History Tobacco Use Types [...] slept in a retirement (including now)? No 01/31/2023 Interpersonal Safety Answer [...] No 02/21/2022 documented as of this encounter Progress Notes * La Lou, RD - 12/28/2023 1100 EDT S: I've cut back on sweets and breads/starches. I get meals on wheels for lunch. I eat a good breakfast. I'm not too hungry for dinner but I eat a little. O: 83 year old woman with prediabetes, hyperlipidemia, HTN Ht: 5' 5 Wt: 152# BMI: 25 A1c: 6.4 Type of interaction: office visit Time spent with patient: 50 minutes A: Concetta comes in today for her initial nutrition/pre-DM appointment. Her caregiver, Salome, is with her. Concetta is in a wheel chair. She and Salome are working on improving strength in the hopes of getting her out of the wheel chair some day. Salome is with Concetta Sunday through Sunday for about 4 hours per day in the mornings. Typical intake: Breakfast: cereal, milk, banana, coffee with small amount of sugar and milk Lunch: meals on wheels meal, 4 oz juice, orange or apple Dinner: frozen meal or cottage cheese and fruit or yogurt or 1/2 ham sandwich Doesn't usually snack but will have ice cream in the afternoon during the summer. Fluids: coffee, juice, water We discussed healthy eating for overall health and pre-diabetes, fluid needs, fiber needs and exercise needs. We discussed and answered their questions. Salome helps to remind Concetta to drink water. Concetta prefers juice. We discussed diluting juice with water. They will try this. Overall Concetta eats well. She's cut back/out sweets and many starches. Her appetite is smaller so she seldom overeats. She's not active but they are working on this. P: Concetta will dilute her juice and continue to limit sweets and starches. She'll also continue to work on regular activity. They have my contact information and will reach out as needed. documented in this encounter Plan of Treatment Upcoming Encounters Date Type Department Care Team (Late st Contact Info) Description 06/11/2024 12:45 EDT Office Visit [facility] Ophthalmology - [address] [phone] Santiago Anthony MD [address] [place] [address], [facility] [address] [place] [address] 07/15/2024 10:45 EDT Office Visit [facility] Cardiology Clinic [address] [place] [address] Gianfranco Flowers MD 130 [facility] [address] [place] [address] documented as of this encounter Visit Diagnoses Diagnosis Dietary counseling and surveillance- Primary Dietary surveillance and counseling documented in this encounter Care Teams Bonderizer Operator Relationship Specialty Start Date End Date Nivia Tinsley MD [address] [place] [phone] PCP - General Family Medicine - Primary Care 08/27/19 Zheng Tapia MD [address] [place] [address] [address] [place] [phone] Internal Medicine - Primary Care 09/01/19 Shazia Burks MD [address] [place], [place] [address] Neurology 09/01/19 Tony Baron OD [address] [place] [phone] Web Marketing Assistant 09/01/19 Keira Paniagua MD [address] [place] [phone] Cardiovascular Disease 09/06/20 Siva Perkins MD [address] [facility] [place] [address] Neurology 09/06/20 documented as of this encounter
--- OUTSIDE RECORDS SUMMARY | 2024-04-29 18:14 | XMS_ITS | Encounter Summary ---
Author Organization [facility] Address [address] [place] [address] Care Team Providers Care Receivable Manager Name Role Phone Nivia Tinsley MD Primary Care Provider Zheng Tapia MD Unavailable Shazia Burks MD Unavailable [phone] Tony Baron OD Unavailable [phone] Keira Paniagua MD Unavailable [phone] Siva Perkins MD Unavailable [phone] Reason for Visit * Reason Onset Date Comments Medications Refill 10/16/2023 Encounter Details Date Type Department Care Team (Late st Contact Info) Description 10/16/2023 Telephone [facility] Integrative Family [id number] [id number] Medications Refill Social History Tobacco Use Types Packs/Day Years [...] in a group home (including now)? No 01/31/2023 Interpersonal Safety Answer [...] Dispensed Refills Start Date End Da te vit A,C & X-zybckt-ezrwswez (OCUVITE) 300 mcg-200 mg-27 mg-2 mg tablet Take 1 tab by mouth daily 30 Tablet 11 10/16/2023 documented in this encounter Miscellaneous Notes * Telephone Encounter - Jay Cevallos - 10/16/2023 1205 EST [facility] requesting refill of ocuvite with lutein tab 300 mcg. Last fill date 09/19/23 documented in this encounter Plan of Treatment Upcoming Encounters Date Type Department Care Team (Late st Contact Info) Description 06/11/2024 12:45 EDT Office Visit [facility] Ophthalmology - [place] [address] [place] [address] Santiago Anthony MD [address] [place] [address], [facility] 5 [place] [address] 07/15/2024 10:45 EDT Office Visit [facility] Cardiology Clinic [address] [place], [place] [address] Gianfranco Flowers MD 130 [facility] [address] [place] [address] documented as of this encounter Visit Diagnoses Not on filedocumented in this encounter Discontinued Medications Medication Sig Discontinue Reason Start Date End Da te vit A,C & N-hzbaas-kmfomjsg (OCUVITE) 300 mcg-200 mg-27 mg-2 mg tablet Take 1 tab by mouth daily Reorder 11/16/2022 10/16/2023 documented as of this encounter Care Teams Receivable Manager Relationship Specialty Start Date End Date Nivia Tinsley MD [address] [place] [address] PCP - General Family Medicine - Primary Care 08/27/19 Zheng Tapia MD [address] [place] [address] [address] [place] [address] Internal Medicine - Primary Care 09/01/19 Shazia Burks MD [address] [place] [address] Neurology 09/01/19 Tony Baron OD [address] [place] [address] Project Manager/Team Coach 09/01/19 Keira Paniagua MD [address] [place] [address] [address] [place] [address] Cardiovascular Disease 09/06/20 Siva Perkins MD [address] [facility] [place] [address] Neurology 09/06/20 documented as of this encounter
--- OUTSIDE RECORDS SUMMARY | 2024-04-29 18:14 | XMS_ITS | Encounter Summary ---
Author Organization [facility] Address [address] [place] [address] Care Team Providers Care Irrigator Overhead Name Role Phone Nivia Tinsley MD Primary Care Provider Zheng Tapia MD Unavailable Shazia Burks MD Unavailable [phone] Tony Baron OD Unavailable [phone] Keira Paniagua MD Unavailable [phone] Siva Perkins MD Unavailable [phone] Reason for Visit * Reason Onset Date Comments Medications Refill 11/14/2023 Encounter Details Date Type Department Care Team (Late st Contact Info) Description 11/14/2023 Refill [facility] Integrative Family Medicine [address] [phone] [id number] Medications Refill Social History Tobacco Use Types [...] slept in a alf (including now)? No 01/31/2023 Interpersonal Safety Answer [...] Dispensed Refills Start Date End Da te atorvastatin (LIPITOR) 40 mg tablet Take 1 Tablet by mouth at bedtime. 30 Tablet 11 11/14/2023 documented in this encounter Miscellaneous Notes * Telephone Encounter - Fay Dotson RN - 11/14/2023 1309 EST Last lipids 07/16/2023 * Telephone Encounter - Marcelina Smith MA - 11/14/2023 1206 EST Medication Requested: Lipitor 40 mg tablet Last OV: 07/26/2023 Next OV: 11/22/2023 Last Refill (If required): 12/01/22 Last Labs (BMP/CMP/LIPID/TSH) : CMP 08/21/23 Pharmacy Of Choice: [facility] * Telephone Encounter - Jay Cevallos - 11/14/2023 1200 EST [facility] requesting refill of atorvastatin 40 mg. Last fill date 10/11/23 documented in this encounter Plan of Treatment Upcoming Encounters Date Type Department Care Team (Late st Contact Info) Description 06/11/2024 12:45 EDT Office Visit [facility] Ophthalmology - [place] [address] [place], [place] [phone] Santiago Anthony MD 111 [facility] 5 [place] [address] 07/15/2024 10:45 EDT Office Visit [facility] Cardiology Clinic [address] [place] [address] Gianfranco Flowers MD 130 [facility] [address] [place] [address] documented as of this encounter Visit Diagnoses Not on filedocumented in this encounter Discontinued Medications Medication Sig Discontinue Reason Start Date End Da te atorvastatin (LIPITOR) 40 mg tablet Take 1 Tablet by mouth at bedtime. Reorder 12/01/2022 11/14/2023 documented as of this encounter Care Teams Irrigator Overhead Relationship Specialty Start Date End Date Nivia Tinsley MD [address] [place] [address] PCP - General Family Medicine - Primary Care 08/27/19 Zheng Tapai MD [address] [place] [address] [address] [place] [address] Internal Medicine - Primary Care 09/01/19 Shazia Bursk MD [address] [place], [place] [address] Neurology 09/01/19 Tony Baron OD [address] [place] [address] Operations Technician 09/01/19 Keira Paniagua MD [address] [place] [address] Cardiovascular Disease 09/06/20 Siva Perkins MD 1200 [facility] [place] [address] Neurology 09/06/20 documented as of this encounter
--- OUTSIDE RECORDS SUMMARY | 2024-04-29 18:14 | XMS_ITS | Encounter Summary ---
Author Organization [facility] Address [address] [place] [address] Care Team Providers Care Striker Out Name Role Phone Nivia Tinsley MD Primary Care Provider [phone] Zheng Tapia MD Unavailable Shazia Burks MD Unavailable [phone] Tony Baron OD Unavailable [phone] Keira Paniagua MD Unavailable [phone] Siva Perkins MD Unavailable [phone] Reason for Visit * Reason Onset Date Comments Medications Refill 10/18/2023 Encounter Details Date Type Department Care Team (Late st Contact Info) Description 10/18/2023 Refill [facility] [address] [place] [phone] Kirsten Rachel, ANA Medications Refill Social History Tobacco Use Types [...] place to sleep or slept in a penitentiary (including now)? No 01/31/2023 Interpersonal Safety Answer [...] encounter Miscellaneous Notes * Telephone Encounter - Kirsten Rachel RN - 10/18/2023 1342 EST Received fax from [facility] in [place] for Carvedilol refill. Already refilled on 10/11/23. documented in this encounter Plan of Treatment Upcoming Encounters Date Type Department Care Team (Late st Contact Info) Description 06/11/2024 12:45 EDT Office Visit [facility] Ophthalmology - [address] [address] Santiago Anthony MD [address] [place] [address], [facility] 5 [place] [address] 07/15/2024 10:45 EDT Office Visit [facility] [address] [place], [place] [phone] Gianfranco Flowers MD 130 [facility] [address] [place] [address] documented as of this encounter Visit Diagnoses Not on filedocumented in this encounter Care Teams Striker Out Relationship Specialty Start Date End Date Nivia Tinsley MD [address] [place] [address] PCP - General Family Medicine - Primary Care 08/27/19 Zheng Tapia MD [address] [place] [address] [address] [place] [address] Internal Medicine - Primary Care 09/01/19 Shazia Burks MD [address] [place] [address] Neurology 09/01/19 Tony Baron OD [address] [place] [address] Job Developer 09/01/19 Keira Paniagua MD [address] [place] [address] [address] [place] [address] Cardiovascular Disease 09/06/20 Siva Perkins MD 1200 [facility] [place] [address] Neurology 09/06/20 documented as of this encounter
--- OUTSIDE RECORDS SUMMARY | 2024-04-29 18:14 | XMS_ITS | Encounter Summary ---
Author Organization [facility] Address [address] [place] [address] Care Team Providers Care Imaging Specialist Name Role Phone Nivia Tinsley MD Primary Care Provider Zheng Tapia MD Unavailable Shazia Burks MD Unavailable [phone] Tony Baron OD Unavailable [phone] Keira Paniagua MD Unavailable [phone] Siva Perkins MD Unavailable [phone] Reason for Visit * Reason Onset Date Comments Medications Refill 10/09/2023 Encounter Details Date Type Department Care Team (Late st Contact Info) Description 10/09/2023 Telephone [facility] Integrative Family [address] [phone] [address] [phone] Medications Refill Social History Tobacco Use Types [...] slept in a correction (including now)? No 01/31/2023 Interpersonal Safety Answer [...] Dispensed Refills Start Date End Da te levothyroxine (SYNTHROID) 100 mcg tabletIndications:Other specified hypothyroidism Take 1 Tablet by mouth daily. 30 Tablet 11 10/09/2023 documented in this encounter Miscellaneous Notes * Telephone Encounter - Yaa Graham RN - 10/09/2023 1527 EST Medication Requested: Levothyroxine 100mg Last OV: 07/26/2023 Next OV: 02/07/2024 Last Refill (If required): 11/22/2022 Last Labs (BMP/CMP/LIPID/TSH) : 07/26/2023 Pharmacy Of Choice: [facility] * Telephone Encounter - Jay Cevallos - 10/09/2023 1512 EST [facility] requesting refill of levothyroxine 100 mcg. Last fill date 09/18/23 documented in this encounter Plan of Treatment Upcoming Encounters Date Type Department Care Team (Late st Contact Info) Description 06/11/2024 12:45 EDT Office Visit [facility] Ophthalmology [address] [address] Santiago Anthony MD [address] [facility], [address] [place] [address] 07/15/2024 10:45 EDT Office Visit [facility] Cardiology Clinic [address] [place] [phone] Gianfranco Flowers MD [address] [place] [address] [address] documented as of this encounter Visit Diagnoses Diagnosis Other specified hypothyroidism- Primary documented in this encounter Discontinued Medications Medication Sig Discontinue Reason Start Date End Da te levothyroxine (SYNTHROID) 100 mcg tabletIndications:Other specified hypothyroidism Take 1 Tablet by mouth daily. Reorder 11/22/2022 10/09/2023 documented as of this encounter Care Teams Imaging Specialist Relationship Specialty Start Date End Date Nivia Tinsley MD [address] [place] [address] PCP - General Family Medicine - Primary Care 08/27/19 Zheng Tapia MD [address] [place] [address] Internal Medicine - Primary Care 09/01/19 Shazia Burks MD [address] [place] [address] Neurology 09/01/19 Tony Baron OD [address] [place] [address] Financial Auditor 09/01/19 Keira Paniagua MD [address] [place] [address] [address] Cardiovascular Disease 09/06/20 Siva Perkins MD [address] [place] [address] Neurology 09/06/20 documented as of this encounter
--- OUTSIDE RECORDS SUMMARY | 2024-04-29 18:14 | XMS_ITS | Encounter Summary ---
Author Organization [facility] Address [address] [place] [address] Care Team Providers Care Regulatory Compliance Director Name Role Phone Nivia Tinsley MD Primary Care Provider Zheng Tapia MD Unavailable Shazia Burks MD Unavailable [phone] Tony Baron OD Unavailable [phone] Keira Paniagua MD Unavailable [phone] Siva Perkins MD Unavailable [phone] Reason for Visit * Reason Onset Date Comments Home Health 11/30/2023 Encounter Details Date Type Department Care Team (Late st Contact Info) Description 11/30/2023 Telephone [facility] Integrative Family Medicine [address] [phone] [address] [address] Home Health Social History Tobacco Use Types Packs/Day Years [...] slept in a usp (including now)? No 01/31/2023 Interpersonal Safety Answer [...] encounter Miscellaneous Notes * Telephone Encounter - Nivia Tinsley MD - 11/30/2023 1041 EST Noted * Telephone Encounter - Claudia Vizcarra - 11/30/2023 0941 EST Pt was admitted to Home Health on 11/28. She agreed to once per week for 4 weeks for PT and re-evaluate at that time. documented in this encounter Plan of Treatment Upcoming Encounters Date Type Department Care Team (Late st Contact Info) Description 06/11/2024 12:45 EDT Office Visit [facility] Ophthalmology - [place] [address] [place], [place] [address] Santiago Anthony MD [address] [place] [address], [facility] 5 [place] [address] 07/15/2024 10:45 EDT Office Visit [facility] Cardiology Clinic [address] [place] [address] Gianfranco Flowers MD 130 [facility] [address] [place] [address] documented as of this encounter Visit Diagnoses Not on filedocumented in this encounter Care Teams Regulatory Compliance Director Relationship Specialty Start Date End Date Nivia Tinsley MD [address] [place] [address] PCP - General Family Medicine - Primary Care 08/27/19 Zheng Tapia MD [address] [place] [address] [address] [place] [address] Internal Medicine - Primary Care 09/01/19 Shazia Burks MD [address] [place] [address] Neurology 09/01/19 Tony Baron, FRANCK [address] [place] [address] Director Of Vocational Guidance 09/01/19 Keira Paniagua MD [address] [place] [address] [address] [place] [address] Cardiovascular Disease 09/06/20 Siva Perkins MD [address] [place] [phone] Neurology 09/06/20 documented as of this encounter
--- OUTSIDE RECORDS SUMMARY | 2024-04-29 18:14 | XMS_ITS | Encounter Summary ---
Author Organization [facility] Address [address] [place] [address] Care Team Providers Care Mixer And Scaler Name Role Phone Nivia Tinsley MD Primary Care Provider Zheng Tapia MD Unavailable Shazia Burks MD Unavailable [phone] Tony Baron OD Unavailable Keira Paniagua MD Unavailable [phone] Siva Perkins MD Unavailable [phone] Sheryl Schwab RN Unavailable Ladonna Candelario Unavailable Unavailable Reason for Visit * Reason Onset Date Comments Home Health 12/21/2023 Fall 12/21/2023 Encounter Details Date Type Department Care Team (Late st Contact Info) Description 12/21/2023 Telephone [facility] Integrative Family Medicine [facility] [address] [place] [address] Nivia Tinsley MD [address] [place] [address] Home Health; Fall Social History Tobacco Use Types Packs/Day Years [...] slept in a mcc (including now)? No 01/31/2023 Interpersonal Safety Answer Date Record ed How often does anyone, inclliseth glenda family, hit, punch or physically hurt you? Never 12/26/2021 How often does anyone, donnaliseth glenda family, insult, scream, curse or threaten [...] encounter Miscellaneous Notes * Telephone Encounter - Marixa Kenny - 12/21/2023 1027 EDT Yolanda from [facility] is calling in stating that the pt had a few falls this week. She just slid out off the bed in between the wheelchair. The second time she slid out of the chair and fell in betweenthe bed and the chair. No injuries were obtained at this time. EMS was called for assistance. Yolanda will see her once a week for the next 5 weeks. Her [facility] nurse will get her a new wheel chair and bed bar. The breaks on her wheelchair were faulty. documented in this encounter Plan of Treatment Upcoming Encounters Date Type Department Care Team (Late st Contact Info) Description 06/11/2024 12:45 EDT Office Visit [facility] Ophthalmology [facility] [address] [place] [address] Santiago Anthony MD [address] [place] [address], [facility] 5 [place] [address] 07/15/2024 10:45 EDT Office Visit [facility] Cardiology Clinic [address] [place] [address] Gianfranco Flowers MD [address] [place] [address] [phone] documented as of this encounter Visit Diagnoses Not on filedocumented in this encounter Care Teams Mixer And Scaler Relationship Specialty Start Date End Date Nivia Tinsley MD [address] [place] [phone] PCP - General Family Medicine - Primary Care 08/27/19 Zheng Tapia MD [address] [place] [address] Internal Medicine - Primary Care 09/01/19 Shazia Burks MD [address] [place] [address] Neurology 09/01/19 Tony Baron OD [address] [place] [phone] Manager Strategic Development 09/01/19 Keira Pnaiagua MD [address] [place] [address] [address] Cardiovascular Disease 09/06/20 Siva Perkins MD 1200 [facility] [place] [address] Neurology 09/06/20 Sheryl Schwab, ANA [address] [place] [address] Rn Digestive 01/23/24 01/23/24 Ladonna Candelario Rn Digestive 01/23/24 documented as of this encounter
--- OUTSIDE RECORDS SUMMARY | 2024-04-29 18:14 | XMS_ITS | Encounter Summary ---
Author Organization [facility] Address [address] [place] [address] Care Team Providers Care Television Operator Name Role Phone Nivia Tinsley MD Primary Care Provider Zheng Tapia MD Unavailable Shazia Burks MD Unavailable [phone] Tony Baron OD Unavailable [phone] Keira Paniagua MD Unavailable [phone] Siva Perkins MD Unavailable [phone] Reason for Visit * Reason Onset Date Comments Appointment Related 10/08/2023 Encounter Details Date Type Department Care Team (Late st Contact Info) Description 10/08/2023 Telephone [facility] Ophthalmology [facility] [address] [place] [address] Santiago Anthony MD 111 [facility] 5 [place] [address] Appointment Related Social History Tobacco Use Types [...] Yes 02/21/2022 Cognitive Status Response Date of Assess ent Because of a physical, menta l, or emotional condition, do you have serious difficulty concentrating, remembering, or making decisions? (5 years old or older) No 02/21/2022 documented as of this encounter Miscellaneous Notes * Telephone Encounter - Kiesha Mcmillan - 10/08/2023 0908 EST Salome called, wanted to cxl inj appt on 10/10/[address] [place] [address]. Anthony. Has another appointment scheduled here on 12/26/23, I cannot fit her into the [place] schedule November (we are [place]). Does not want to be seen in [facility]. I reviewed consequences of putting injection off till November and stated it was our medical advice to call to be seen sooner in [facility]. Provided [facility] office contact number. documented in this encounter Plan of Treatment Upcoming Encounters Date Type Department Care Team (Late st Contact Info) Description 06/11/2024 12:45 EDT Office Visit [facility] Ophthalmology - [place] [address] [place] [address] Santiago Anthony MD [address] [place] [address], [facility], Level [address] [place] [address] 07/15/2024 10:45 EDT Office Visit [facility] Cardiology Clinic [address] [place], [place] [address] Gianfranco Flowers MD 130 [facility] [address] [place] [address] documented as of this encounter Visit Diagnoses Not on filedocumented in this encounter Care Teams Television Operator Relationship Specialty Start Date End Date Nivia Tinsley MD [address] [place] [address] PCP - General Family Medicine - Primary Care 08/27/19 Zheng Tapia MD [address] [place] [address] [address] [place] [address] Internal Medicine - Primary Care 09/01/19 Shazia Burks MD [address] [place] [address] Neurology 09/01/19 Tony Baron OD [address] [place] [phone] Flight Hostess 09/01/19 Keira Paniagua MD 130 [facility] [address] [place] [address] Cardiovascular Disease 09/06/20 Siva Perkins MD [address] [place] [address] Neurology 09/06/20 documented as of this encounter
--- OUTSIDE RECORDS SUMMARY | 2024-04-29 18:14 | XMS_ITS | Encounter Summary ---
Author Organization [facility] Address [address] [place] [address] Care Team Providers Care Sales And Merchandising Representative Name Role Phone Nivia Tinsley MD Primary Care Provider Zheng Tapia MD Unavailable Shazia Burks MD Unavailable [phone] Tony Baron OD Unavailable [phone] Keira Paniagua MD Unavailable [phone] Siva Perkins MD Unavailable [phone] Reason for Referral * Referral (Routine/Next Available) - Specialty Report Received Specialty Diagnoses / Procedures Referred By Lesa alves Referred To Contact Diagnoses Primary osteoarthritis of both hips Weakness Right leg weakness Nivia Tinsley MD [address] [place] [address] [facility] [place] [address] [place] [address] Referral ID Status Reason Start Date Expiration Date Visits Requested Visits Authorized [id number] Specialty Report Received Specialty Services Required 11/22/2023 1 1 Question Answer I certify that this patient is under my care and that I, or another Medicare allowed practitioner (DO KARLENE, FRANKIE) working with me, had a [id number] encounter with this patient on this date: 11/22/2023 The discharge summary or progress note will provide further details that support the need for the home health services and the plan of care. Yes Enter the allowed practitioner (, DO, FRANKIE) who will provide oversight of this patient's home heatlh care needs and plan of care Nivia Tinsley MD Some payers require a patient to be homebound to qualify for home health services. Homebound definition: Absences from home are infrequent or for relatively short duration (such as for medical appointments). Is patient HOMEBOUND? Yes The patient? s homebound status is related to the following diagnoses, illness or condition (describe): In Wheel chair The patient has a condition due to an illness or injury that restricts the ability to leave home except with: Assistance/Support device Assistive device Wheelchair Leaving home requires a considerable and taxing effort with mobility limited by the following (criteria 1): Impaired balance Leaving home requires a considerable and taxing effort with mobility limited by the following (criteria 2): Impaired vision Additional criteria (optional): Impaired cognition, Impaired gait, Impaired safety awareness, Impaired balance, Impaired strength, Incontinence, Impaired endurance Skilled care requested: Acute therapies (includes PT, COLLATING MACHINE OPERATOR) Therapies skilled care requested: Physical Therapy Physical therapy is needed for: Evaluation, Safety, Strength Training/Exercise Program * Consult (Routine/Next Available) - Authorization Not Required Specialty Diagnoses / Procedures Referred By Contac t Referred To Contact Diagnoses Prediabetes Diabetes mellitus type 2, noninsulin dependent ([facility]) Nivia Tinsley MD [address] [place] [address] [facility] [address] [place] [address] Referral ID Status Reason Start Date Expiration Date Visits Requested Visits Authorized [id number] Authorization Not Required Specialty Services Required 4 1 1 Question Answer Nutrition/personal development educator/Education: Nutrition, Diabetes management/Education Reason for Visit * Reason Comments Follow-up Fatigue Hypothyroidism Osteoarthritis Encounter Details Date Type Department Care Team (Latest Contact Info) Description 11/22/2023 11:00 EST Office Visit [facility] [address] [place] [address] Nivia Tinsley MD [address] [place] [address] Vitamin D deficiency (Primary Dx); Primary osteoarthritis of both hips; Prediabetes; Weakness; Continuous leakage of urine; Right leg weakness; Incontinence in female Social History Tobacco Use Types Packs/Day Years [...] place to sleep or slept in a care home (including now)? No 01/31/2023 Interpersonal Safety [...] Sign Reading Time Taken Comments Blood Pressure 128/78 11/22/2023 1038 EST Pulse 67 11/22/2023 1038 EST Temperature - - Respiratory Rate - - Oxygen Saturation 98% 11/22/2023 1038 EST Inhaled Oxygen Concentration - - Weight 68.9 kg (152 lb) 11/22/2023 1038 EST Height 165.1 cm (5' 5) 11/22/2023 1038 EST Body Mass Index 25.29 11/22/2023 1038 EST documented in this encounter Functional Status Functional [...] Dispensed Refills Start Date End Da te ibuprofen (MOTRIN) 400 mg tabletIndications:Primary osteoarthritis of both hips Take 1 Tablet by mouth 2 times daily as needed for Pain. 180 Tablet 4 11/22/2023 documented in this encounter Progress Notes * Nivia Tinsley MD - 11/22/2023 1100 EST [facility] Primary Care Subjective: Chief Complaint(s): Follow-up, Fatigue, Hypothyroidism, and Osteoarthritis HPI: 83-year-old woman with CAD and NSTEMI status post LAD stent placement in November 2021, heart failure with preserved ejection fraction, visual impairment, prediabetes, GERD, hypothyroidism, hypertension, hyperlipidemia, and a CVA- thalamic infarct who has been having more weakness. She also has had fatigue. She had a low B12, and this was replaced with supplementation. Her last B12 was 552, up from 268. She is still taking supplementation. She had a low vitamin D, and that has not been rechecked. At her last visit her caregiver requested a prescription for incontinence pads and pull-ups,this was faxed to the pharmacy, but they have not heard anything. They are still paying for incontinence pads and pull-ups [id number]. They are hoping to get it covered by insurance since she has incontinence all of the time. She also has a history of diabetes, but its never been treated with medicine. She has been controlling it with diet. Her last A1c was 6 months ago. She is due for hemoglobin A1c. She is also on thyroid supplementation and her last TSH was in July and was within normal limits. Her caregiver is also wondering about home PT. She seems to be getting weaker. She used touse her walker more, and she is now using her wheelchair. She is hoping to get a referral to home PT. I have reviewed patient's tobacco history: reports that she has never smoked. She has never used smokeless tobacco. I have reviewed current problem list and current medications. ROS: Review of Systems Constitutional: Positive for malaise/fatigue. Genitourinary: Incontinence Neurological: Positive for weakness. Objective: Examination: Vitals: BP 128/78 (BP Cuff Location: Right arm, BP Patient Position: Sitting, BP Cuff Sizes: Adult, large) Pulse 67 Ht 165.1 cm (65) Wt 68.9 kg (152 lb) SpO2 98% BMI 25.29 kg/m?? Body mass index is 25.29 kg/m??. Physical Exam Constitutional: Appearance: Normal appearance. She is well-developed. HENT: Head: Normocephalic and atraumatic. Eyes: Conjunctiva/sclera: Conjunctivae normal. Pulmonary: Effort: Pulmonary effort is normal. Musculoskeletal: Cervical back: Neck supple. Skin: General: Skin is dry. Neurological: General: No focal deficit present. Mental Status: She is alert and oriented to person, place, and time. Mental status is at baseline. Motor: Weakness (In wheelchair) present. Psychiatric: Mood and Affect: Mood normal. Behavior: Behavior normal. Thought Content: Thought content normal. Judgment: Judgment normal. Data reviewed with patient (past results): Results for orders placed or performed in visit on 11/22/23 VITAMIN D (25,OH) Result Value Ref Range 25OH Vitamin D Tot 29 (L) 30 - 100 ng/mL HEMOGLOBIN A1C Result Value Ref Range Hemoglobin A1c 6.4 (H) <5.7 % Est Avg Glucose 137 mg/dL Assessment & Plan: Concetta was seen today for follow-up, fatigue, hypothyroidism and osteoarthritis. Diagnoses and all orders for this visit: Vitamin D deficiency Comments: Will check a vitamin D level to be sure this is above 30. Orders: - VITAMIN D (25,OH) Primary osteoarthritis of both hips Comments: We will try ibuprofen, but did warn her this could upset her stomach as well. She will take this with food only. Orders: - ibuprofen (MOTRIN) 400 mg tablet; Take 1 Tablet by mouth 2 times daily as needed for Pain. - AMB CONS/FOLLOW UP HOME HEALTH SERVICES; Future Prediabetes Comments: Will check a hemoglobin A1c to be sure this has stayed below 6.5 and work with a dietitian to keep her hemoglobin A1c below 6.5. Orders: - HEMOGLOBIN A1C - AMB CONS/FOLLOW UP FINAL INSPECTION SUPERVISOR, UTILITY MANAGER AND NUTRITION; Future Weakness Comments: Will see if home health PT will help with her weakness. Orders: - AMB CONS/FOLLOW UP HOME HEALTH SERVICES; Future Continuous leakage of urine Comments: Printed DME prescriptions for incontinence pull-ups and pads and given to caregiver. Orders: - UA CASCADE TO CULTURE; Future - GENERIC DME ORDER - GENERIC DME ORDER Right leg weakness - AMB CONS/FOLLOW UP HOME HEALTH SERVICES; Future Incontinence in female - GENERIC DME ORDER - GENERIC DME ORDER Return in about 3 months (around 02/20/2024) for AWV. I spent a total of 30 minutes on the date of this encounter meeting with the patient and reviewing documentation/coordinating care as described in the above note. No procedures were performed at the time of the visit. Nivia Tinsley MD, [facility] * Marlen Jason LPN - 11/22/2023 1100 EST Performed by Site Collected Right Antecubital Space Volume Withdrawn STT; 8.5ml and Lavender Top Tube; 3.0ml Patient Response Patient tolerated venipuncture well and Number of attempts 1 Ordering Provider R Laureano SOLER documented in this encounter Miscellaneous Notes * Result Encounter Note - Nivia Tinsley MD - 11/22/2023 1100 EST The results are abnormal. Concetta's vitamin D [...] Description 06/11/2024 12:45 EDT Office Visit [facility] [address] [address] Santiago Anthony MD [address] [place] [address], [facility] [address] [place] [address] 07/15/2024 10:45 EDT Office Visit [facility] [address] [place] [address] Gianfranco Flowers MD [address] [facility] [address] [place] [address] Scheduled Orders Name Type Priority Associated Diagnoses Orde r Schedule UA CASCADE TO CULTURE Lab Routine Continuous leakage of urine Expected: 11/29/2023 (Approximate), Expires: 05/22/2024 Scheduled Referrals Name Type Priority Associated Diagnoses Orde r Schedule AMB CONS/FOLLOW UP FINAL INSPECTION SUPERVISOR, UTILITY MANAGER AND NUTRITION Outpatient Referral Routine/Next Available Prediabetes Expected: 11/29/2023 (Approximate), Expires: 11/22/2024 AMB CONS/FOLLOW UP HOME HEALTH SERVICES Outpatient Referral Routine/Next Available Primary osteoarthritis of both hips Weakness Right leg weakness Expected: 11/29/2023 (Approximate), Expires: 11/22/2024 documented as of this encounter Procedures Procedure Name Priority Date/Time Associated Diagnosis Comments VITAMIN D (25,OH) Routine 11/22/2023 11: 34 EST Vitamin D deficiency HEMOGLOBIN A1C Routine 11/22/2023 11:34 EST Prediabetes documented in this encounter Results * (ABNORMAL) HEMOGLOBIN A1C (11/22/2023 11:34 EST) Hemoglobin A1c 6.4(H) <5.7 % 11/22/2023 21:12 [facility] Comment: Glycemic Status References: Normal: ??<5.7% Pre-Diabetes: ??5.7% - 6.4% Diagnostic of Diabetes: ??> or = 6.5% (if confirmed) Est Avg Glucose 137 mg/dL 21:12 [facility] Comment:The eAG represents t he A1c result expressed as average glucose in mg/dL. Blood VENOUS BLOOD / Unknown Venipuncture / Unknown 11/22/2023 11:34 EST 11/22/2023 11:34 EST Nivia Tinsley MD CHEMISTRY & BLOOD G ORDERABLES Performing Organization Address [facility] Co de Phone Number [facility] [address] [place] [address] * (ABNORMAL) VITAMIN D (25,OH) (11/22/2023 11:34 EST) 25OH Vitamin D Tot 29(L) 30 - 100 ng/mL 11/22/2023 13:56 EST [facility] Comment: Vitamin D 25,OH Interpretive Ranges: Deficiency: ? <20.0 ng/mL Insufficiency: ?? 20.0 - 29.9 ng/mL Sufficiency: ? 30.0 - 100.0 ng/mL Toxicity: ? >100.0 ng/mL Blood VENOUS BLOOD / Unknown Venipuncture / Unknown 11/22/2023 11:34 EST 11/22/2023 11:34 EST Nivia Tinsley MD CHEMISTRY & BLOOD G ORDERABLES Performing Organization Address [facility] de Phone Number [facility] [address] [place] [address] documented in this encounter Visit Diagnoses Diagnosis Vitamin D deficiency- Primary Unspecified vitamin D deficiency Primary osteoarthritis of both hips Primary localized osteoarthrosis, pelvic region and thigh Prediabetes Other abnormal glucose Weakness Other malaise and fatigue Continuous leakage of urine Continuous leakage Right leg weakness Other musculoskeletal symptoms referable to limbs Incontinence in female documented in this encounter Discontinued Medications Medication Sig Discontinue Reason Start Date End Da te ibuprofen (MOTRIN) 400 mg tabletIndications:Primary osteoarthritis of both hips Take 1 Tablet by mouth 2 times daily as needed for Pain. Reorder 08/30/2023 11/22/2023 acetaminophen 325 mg capsule Take by mouth 2 times daily. 11/22/2023 documented as of this encounter Orders Equipment Count Last Ordered Date First Orde red Date GENERIC DME ORDER 2 11/22/2023 documented in this encounter Care Teams Sales And Merchandising Representative Relationship Specialty Start Date End Date Nivia Tinsley MD [address] [place] [address] PCP - General Family Medicine - Primary Care 08/27/19 Zheng Tapia MD [address] [place] [address] [address] [place] [address] Internal Medicine - Primary Care 09/01/19 Shazia Burks MD [address] [place] [address] Neurology 09/01/19 Tony Baron OD [address] [place] [address] Assistant Grocery Store Manager 09/01/19 Keira Paniagua MD [address] [place] [address] [address] [place] [address] Cardiovascular Disease 09/06/20 Siva Perkins MD [address] [place] [address] Neurology 09/06/20 documented as of this encounter
--- OUTSIDE RECORDS SUMMARY | 2024-04-29 18:14 | XMS_ITS | Encounter Summary ---
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 Encounter Details Date Type Department Care Team (Late st Contact Info) Description 12/26/2023 10:00 EDT Office Visit [facility] [address] [place], [place] [address] Santiago Anthony MD 111 [facility], [facility] [address] [place] [address] Social History Tobacco Use Types Packs/Day Years [...] as of this encounter Progress Notes * Santiago Anthony MD - 12/26/2023 1000 EDT Chief Complaint Patient presents with Eye Problem 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 HPI Eye Problem Comments: 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 Base Eye Exam Visual Acuity (Snellen - Linear) Right Left Dist cc 20/400 HM Tonometry (Applanation, 10:04) Right Left Pressure 20 20 Pupils Dark Shape React APD Right 3 Round Minimal None Left 3 Round Minimal None Neuro/Psych Oriented x3: Yes Mood/Affect: Normal Dilation Both eyes: Tropicamide 1%, Phenylephrine 2.5% @ 10:05 Slit Lamp and Fundus Exam Slit Lamp Exam Right Left Lids/Lashes Normal Normal Conjunctiva/Sclera White and quiet, White and quiet Cornea SPK 4+ SPK 4+ Anterior Chamber Deep and quiet Deep and quiet Iris Dilated Dilated Lens Posterior chamber intraocular lens Posterior chamber intraocular lens, Posterior capsular opacification Fundus Exam Right Left Disc Healthy Rim Healthy Rim Macula no hemorrhage or edema, RPE drop out Central scar, RPE drop out, no hemorrhage Vessels Normal Normal Periphery Attached, blond Retina Attached, blonde retina Blonde Retina's both eyes Please refer to large retinal drawing. OCT, Retina - OU - Both Eyes Right Eye Quality was poor. Progression has been stable. Findings include abnormal foveal contour. Left Eye Quality was poor. Progression has been stable. Findings include abnormal foveal contour. IMPRESSION: 1. Exudative age-related macular degeneration of left eye, unspecified stage ([facility]) OCT, RETINA - OU - BOTH EYES 2. 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 Dry eye 4. 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 Or or sooner if worsening occurs I, Santiago Anthony MD, have performed my own history, and have evaluated and examined the patient myself. I am scribing for Santiago Anthony MD while he is personally performing the service. LESA Graham (Scribe) documented in this encounter Plan of Treatment Upcoming Encounters Date Type Department Care Team (Late st Contact Info) Description 06/11/2024 12:45 EDT Office Visit [facility] Ophthalmology - [address] [address] Santiago Anthony MD [address] [place] [address], [address] [place] [address] 07/15/2024 10:45 EDT Office Visit [facility] [address] [place] [address] Gianfranco Flowers MD 130 [facility] [address] [place] [address] documented as of this encounter Procedures Procedure Name Priority Date/Time Associated Diagnosis Comments OCT, RETINA - OU - BOTH EYES Routine 12/26/2023 11:13 EDT Exudative age-related macular degeneration of left eye, unspecified stage ([facility]) documented in this encounter Results * OCT, RETINA - OU - BOTH EYES (12/26/2023 11:13 EDT) Narrative [facility]PHTH[facility]OLOG[facility] - 12/27/2023 8:03 EDT Right Eye Quality was poor. Progression has been stable. Findings include abnormal foveal contour. Left Eye Quality was poor. Progression has been stable. Findings include abnormal foveal contour. Santiago Anthony MD OPHTH TOMOGRAPHY [facility]TH[facility]OLOG[facility] documented in this encounter Visit Diagnoses Diagnosis Exudative age-related macular degeneration of left eye, unspecified stage ([facility])- Primary Albinism ([facility]) Other disturbances of aromatic amino-acid metabolism Dry eye Tear film insufficiency, unspecified Nystagmus Nystagmus, unspecified documented in this encounter Eye Exam Visual Acuity (Snellen - Linear) Right eye Left eye Dist cc 20/400 HM Tonometry (Applanation, 10:04) Right eye Left eye Pressure 20 20 Pupils Dark Shape React APD Right eye 3 Round Minimal None Left eye 3 Round Minimal None Neuro/Psych Oriented x3: Yes Mood/Affect: Normal Dilation Both eyes: Tropicamide 1%, P henylephrine 2.5% @ 10:05 Slit Lamp Exam Right eye Left eye Lids/Lashes Normal Normal Conjunctiva/Sclera White and quiet, White and qu iet Cornea SPK 4+ SPK 4+ Anterior Chamber Deep and quiet Deep and quiet Iris Dilated Dilated Lens Posterior chamber in traocular lens Posterior chamber intraocular lens, Posterior capsular opacification Fundus Exam Right eye Left eye Disc Healthy Rim Healthy Rim Macula no hemorrhage or edema, RPE drop out Central scar, RPE drop out, no hemorrhage Vessels Normal Normal Periphery Attached, blond Retina Attached, blonde retina Blonde Retina's both eyes Care Teams Public Relations Studies Director Relationship Specialty Start Date End Date Nviia Tinsley MD [address] [place] [id number] PCP - General Family Medicine - Primary Care 08/27/19 Zheng Tapia MD [address] [place] [address] [address] [place] [phone] Internal Medicine - Primary Care 09/01/19 Shazia Burks MD [address] [place] [address] Neurology 09/01/19 Tony Baron OD [address] [place] [address] Wood Treating Inspector 09/01/19 Keira Paniagua MD [address] [place] [address] [address] [place] [address] Cardiovascular Disease 09/06/20 Siva Perkins MD [address] [facility] [place] [address] Neurology 09/06/20 documented as of this encounter
--- OUTSIDE RECORDS SUMMARY | 2024-04-29 18:14 | XMS_ITS | Encounter Summary ---
Author Organization [facility] Address [address] [place] [address] Care Team Providers Care Bottom Scrubber Name Role Phone Nivia Tinsley MD Primary Care Provider [phone] Zheng Tapia MD Unavailable Shazia Burks MD Unavailable [phone] Tony Baron OD Unavailable [phone] Keira Paniagua MD Unavailable [phone] Siva Perkins MD Unavailable [phone] Reason for Visit * Reason Onset Date Comments Medications Refill 12/14/2023 Encounter Details Date Type Department Care Team (Late st Contact Info) Description 12/14/2023 Refill [facility] [address] [place] [phone] Queta Ruby, RN Medications Refill Social History Tobacco Use Types [...] slept in a residential (including now)? No 01/31/2023 Interpersonal Safety Answer [...] Dispensed Refills Start Date End Da te ezetimibe (ZETIA) 10 mg tablet Take 1 Tablet by mouth daily. 90 Tablet 1 12/14/2023 documented in this encounter Plan of Treatment Upcoming Encounters Date Type Department Care Team (Late st Contact Info) Description 06/11/2024 12:45 EDT Office Visit [facility] Op[facility]mology [address] [id number] Santiago Anthony MD [address] [place] [address], [facility] [address] [place] [address] 07/15/2024 10:45 EDT Office Visit [facility] [address] [place], [place] [phone] Gianfranco Flowers MD 130 [facility] [address] [place] [address] documented as of this encounter Visit Diagnoses Not on filedocumented in this encounter Discontinued Medications Medication Sig Discontinue Reason Start Date End Da te ezetimibe (ZETIA) 10 mg tablet Take 1 Tablet by mouth daily. Reorder 07/16/2023 12/14/2023 documented as of this encounter Care Teams Bottom Scrubber Relationship Specialty Start Date End Date Nivia Tinsley MD [address] [place] [id number] PCP - General Family Medicine - Primary Care 08/27/19 Zheng Tapia MD [address] [place] [address] [address] [place] [address] Internal Medicine - Primary Care 09/01/19 Shazia Burks MD [address] [place] [address] Neurology 09/01/19 Tony Baron OD [address] [place] [address] Social Media Developer 09/01/19 Keira Paniagua MD [address] [place] [address] [address] [place] [address] Cardiovascular Disease 09/06/20 Siva Perkins MD [address] [facility] [place] [address] Neurology 09/06/20 documented as of this encounter
--- OUTSIDE RECORDS SUMMARY | 2024-04-29 18:14 | XMS_ITS | Encounter Summary ---
Author Organization [facility] Address [address] [place] [address] Care Team Providers Care Lead C Developer Name Role Phone Nivia Tinsley MD Primary Care Provider [phone] Zheng Tapia MD Unavailable Shazia Burks MD Unavailable [phone] Tony Baron OD Unavailable [phone] Keira Paniagua MD Unavailable [phone] Siva Perkins MD Unavailable [phone] Sheryl Schwab RN Unavailable Ladonna Candelario Unavailable Unavailable Reason for Visit * Reason Onset Date Comments Medications Refill 11/06/2023 Encounter Details Date Type Department Care Team (Late st Contact Info) Description 11/06/2023 Refill [facility] Integrative Family Medicine [address] [id number] Linda Rodgers RN Medications Refill Social History Tobacco Use Types Packs/Day Years Used Date Smoking Tobacco: Never Smokeless Tobacco: Never Alcohol Use Standard Drinks/Week Comments Yes 0 (1 standard drink = 0.6 oz pur e alcohol) sips here and there AUDIT-C Answer Date Recorded Frequency of Alcohol Consumption Monthly or less 09/09/2019 Average Number of Drinks 1 or 2 12/10/2 019 Frequency of Binge Drinking Less than [...] Dispensed Refills Start Date End Da te losartan (COZAAR) 100 mg tabletIndications:Essentia l hypertension 1 tab(s) orally once a day 30 Tablet 11 11/06/2023 documented in this encounter Miscellaneous Notes * Telephone Encounter - Jay Cevallos - 11/07/2023 1120 EST Appt updated * Telephone Encounter - Avis Mckeon - 11/07/2023 1014 EST Spoke with caregiver, booked Nov 22 at 11:00am as it was only time she can get her here. Please change visit to EST PATIENT for me. * Telephone Encounter - Marixa Kenny - 11/06/2023 1204 EST Called pt to schedule appt. Pt's caregiver/transportation wasn't there so she couldn't schedule a f/u. I will Call tomorrow morning around 10:00 am to talk with Caregiver about an appt time. * Telephone Encounter - Linda Rodgers RN - 11/06/2023 1156 EST Received faxed refill request from [facility] in [place] Medication Requested: Losartan 100 mg - 1 tab daily Last OV: 07/26/2023 Next OV: 02/07/2024 Last Refill (If required): 12/01/2022 - #30 with 11 refills Last Labs (CMP) - done by PCP on 07/16/23, has had more recent. E-scribed as tabbed per protocol. To front desk specialist - please reach out to patient - was to have 4 month follow-up - (around 11/26/23) - see 07/26/23 appointment note. documented in this encounter Plan of Treatment Upcoming Encounters Date Type Department Care Team (Late st Contact Info) Description 06/11/2024 12:45 EDT Office Visit [facility] Ophthalmology - [address] [phone] Santiago Anthony MD [address] [place] [address], [facility] 5 [place] [address] 07/15/2024 10:45 EDT Office Visit [facility] [address] [place], [place] [phone] Gianfranco Flowers MD [address] [facility]- [address] [place] [address] documented as of this encounter Visit Diagnoses Diagnosis Essential hypertension Unspecified essential hypertension documented in this encounter Discontinued Medications Medication Sig Discontinue Reason Start Date End Da te losartan (COZAAR) 100 mg tabletIndications:Essenti al hypertension 1 tab(s) orally once a day Reorder 12/01/2022 11/06/2023 documented as of this encounter Care Teams Lead C Developer Relationship Specialty Start Date End Date Nivia Tinsley MD [address] [place] [address] PCP - General Family Medicine - Primary Care 08/27/19 Zheng Tapia MD [address] [place] [address] [address] [place] [address] Internal Medicine - Primary Care 09/01/19 Shazia Burks MD [address] [place] [address] Neurology 09/01/19 Tony Baron OD [address] [place] [address] Welfare Investigator 09/01/19 Keira Paniagua MD [address] [place] [address] [address] [place] [address] Cardiovascular Disease 09/06/20 Siva Perkins MD [address] [place] [address] Neurology 09/06/20 Sheryl Schwab, ANA [address] [place], [place] [address] Assembler Arranger 01/23/24 01/23/24 Ladonna Candelario Assembler Arranger 01/23/24 documented as of this encounter
--- OUTSIDE RECORDS SUMMARY | 2024-04-29 18:14 | XMS_ITS | Encounter Summary ---
Author Organization [facility] Address [address] [place] [address] Care Team Providers Care Child Development Assistant Name Role Phone Nivia Tinsley MD Primary Care Provider [phone] Zheng Tapia MD Unavailable Shazia Burks MD Unavailable [phone] Tony Baron OD Unavailable [phone] Keira Paniagua MD Unavailable [phone] Siva Perkins MD Unavailable [phone] Encounter Details Date Type Department Care Team (Late st Contact Info) Description 10/11/2023 Orders Only [facility] Card[facility] [address] [place] [address] Elliot Don, ANA Social History Tobacco Use Types Packs/Day Years [...] Record ed How often does anyone, kalani dohsi family, hit, punch or physically hurt you? [...] Dispensed Refills Start Date End Da te carvedilol (COREG) 3.125 mg tablet Take 1 Tablet by mouth 2 times daily with breakfast and dinner. 180 Tablet 3 10/11/2023 documented in this encounter Plan of Treatment Upcoming Encounters Date Type Department Care Team (Late st Contact Info) Description 06/11/2024 12:45 EDT Office Visit [facility] Ophthalmology - [address] [phone] Santiago Anthony MD [address] [place] [address] 5 [place] [address] 07/15/2024 10:45 EDT Office Visit [facility] Cardiology Clinic [address] [place], [place] [phone] Gianfranco Flowers MD 130 [facility] [address] [place] [address] documented as of this encounter Visit Diagnoses Not on filedocumented in this encounter Discontinued Medications Medication Sig Discontinue Reason Start Date End Da te carvediloL (COREG) 3.125 mg tablet Take 1 Tablet by mouth 2 times daily with breakfast and dinner. Reorder 11/13/2022 10/11/2023 documented as of this encounter Care Teams Child Development Assistant Relationship Specialty Start Date End Date Nivia Tinsley MD [address] [place] [id number] PCP - General Family Medicine - Primary Care 08/27/19 Zheng Tapia MD [address] [place] [address] [address] [place] [address] Internal Medicine - Primary Care 09/01/19 Shazia Burks MD [address] [place] [address] Neurology 09/01/19 Tony Baron OD [address] [place] [address] Nurse Orthopaedic 09/01/19 Keira Paniagua MD [address] [place] [address] [address] [place] [address] Cardiovascular Disease 09/06/20 Siva Perkins MD [address] [facility] [place] [address] Neurology 09/06/20 documented as of this encounter
--- OUTSIDE RECORDS SUMMARY | 2024-04-29 18:15 | XMS_ITS | Encounter Summary ---
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 S/p Eylea left 07/12/2022. Feels she is losing more vision in both eyes. No pain - sometimes discomfort and she will use a warm washcloth. Using Refresh 3x a day. Encounter Details Date Type Department Care Team (Late st Contact Info) Description 08/08/2023 10:00 EST Office Visit [facility] Ophthalmology [facility] [address] [place] [address] Santiago Anthony MD [address] [facility], [address] [place] [address] Social History Tobacco Use Types [...] slept in a detention (including now)? No 01/31/2023 Interpersonal Safety Answer [...] Progress Notes * Santiago Anthony MD - 08/08/2023 1000 EST Chief Complaint Patient presents with ??? 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 S/p Eylea left 07/12/2022. Feels she is losing more vision in both eyes. No pain - sometimes discomfort and she will use a warm washcloth. Using [id number] a day. 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 S/p Eylea left 07/12/2022. Feels she is losing more vision in both eyes. No pain - sometimes discomfort and she will use a warm washcloth. Using Refresh 3x a day. Base Eye Exam Visual Acuity (Snellen - Linear) Right Left Dist cc 20/800 CF at 1' Correction: Glasses Tonometry (Applanation, 10:18) Right Left Pressure 20 18 Pupils Pupils Right PERRL Left PERRL Neuro/Psych Oriented x3: Yes Mood/Affect: Normal Dilation Both eyes: Phenylephrine 2.5%, Tropicamide 1% @ 10:20 Slit Lamp and Fundus Exam Slit Lamp Exam Right Left Lids/Lashes Normal Normal Conjunctiva/Sclera White and quiet White and quiet Cornea SPK 4+ SPK 4+ Anterior Chamber Deep and quiet Deep and quiet Iris Dilated Dilated Lens Posterior chamber intraocular lens Posterior chamber intraocular lens, Posterior capsular opacification Fundus Exam Right Left Disc Healthy Rim Healthy Rim Macula no hemorrhage or edema Central scar, no hemorrhage Vessels Normal Normal Periphery Attached, blond fundus Attached, blond fundus Please refer to large retinal drawing. OCT, Retina - OU - Both Eyes Right Eye Quality was poor. Scan locations included subfoveal. Progression has been stable. Findings include (Irregular contour ). Left Eye Quality was poor. Scan locations included subfoveal. Progression has been stable. Findings include (Intra-retinal edema ). IMPRESSION: 1. 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 Dry eyes both Severe in both Has been off/on using tears and lubrication Not making much improvement ?could be related to her decrease vision Continue with artificial tears and ointment Should also see Dr. Chester for possible ? punctual plugs or any other mechanism he thinks will help pt more ?? Albinism Limiting vision in addition to age-related macular degeneration Return 10/10/22 as scheduled and add 20 weeks for ?injection. I, Santiago Anthony MD, have performed my own history, and have evaluated and examined the patient myself. I am scribing for Santiago Anthony MD while he is personally performing the service. LESA Graham (Scribe) documented in this encounter Plan of Treatment Upcoming Encounters Date Type Department Care Team (Late st Contact Info) Description 06/11/2024 12:45 EDT Office Visit [facility] Ophthalmology - [place] [address] [place] [address] Santiago Anthony MD [address] [facility], [address] [place] [address] 07/15/2024 10:45 EDT Office Visit [facility] [address] [place] [address] Gianfranco Flowers MD [address] [facility] [address] [place] [address] documented as of this encounter Procedures Procedure Name Priority Date/Time Associated Diagnosis Comments OCT, RETINA - OU - BOTH EYES Routine 08/08/2023 10:00 EST Exudative age-related macular degeneration of left eye, unspecified stage ([facility]) documented in this encounter Results * OCT, RETINA - OU - BOTH EYES (08/08/2023 10:00 EST) Narrative [facility] OPHTHALMOLOGY - 08/10/2023 8:40 EST Right Eye Quality was poor. Scan locations included subfoveal. Progression has been stable. Findings include (Irregular contour ). Left Eye Quality was poor. Scan locations included subfoveal. Progression has been stable. Findings include (Intra-retinal edema ). 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 Dry eye Tear film insufficiency, unspecified documented in this encounter Eye Exam Visual Acuity (Snellen - Linear) Right eye Left eye Dist cc 20/800 CF at 1' Correction: Glasses Tonometry (Applanation, 10:18) Right eye Left eye Pressure 20 18 Pupils Pupils Right eye PERRL Left eye PERRL Neuro/Psych Oriented x3: Yes Mood/Affect: Normal Dilation Both eyes: Phenylephrine 2.5 %, Tropicamide 1% @ 10:20 Slit Lamp Exam Right eye Left eye Lids/Lashes Normal Normal Conjunctiva/Sclera White and quiet White and russel et Cornea SPK 4+ SPK 4+ Anterior Chamber Deep and quiet Deep and quiet Iris Dilated Dilated Lens Posterior chamber in traocular lens Posterior chamber intraocular lens, Posterior capsular opacification Fundus Exam Right eye Left eye Disc Healthy Rim Healthy Rim Macula no hemorrhage or edema Central s car, no hemorrhage Vessels Normal Normal Periphery Attached, blond fundus Attached, blond fundus Care Teams Door Worker Relationship Specialty Start Date End Date Nivia Tinsley MD [address] [place] [address] PCP - General Family Medicine - Primary Care 08/27/19 Zheng Tapia MD [address] [place] [address] [address] [place] [address] Internal Medicine - Primary Care 09/01/19 Shazia Burks MD [address] [place] [address] Neurology 09/01/19 Tony Baron, FRANCK [address] [place] [address] Chip Unloader 09/01/19 Keira Paniagua MD [address] [place] [address] [address] [place] [address] Cardiovascular Disease 09/06/20 Siva Perkins MD [address] [place] [address] Neurology 09/06/20 documented as of this encounter
--- OUTSIDE RECORDS SUMMARY | 2024-04-29 18:15 | XMS_ITS | Encounter Summary ---
Author Organization [facility] Address [address] [place] [address] Care Team Providers Care Cutter Head Sharpener Name Role Phone Nivia Tinsley MD Primary Care Provider [phone] Zheng Tapia MD Unavailable Shazia Burks MD Unavailable [phone] Tony Baron OD Unavailable [phone] Keira Paniagua MD Unavailable [phone] Siva Perkins MD Unavailable Reason for Visit * Reason Onset Date Comments Results 08/31/2023 Encounter Details Date Type Department Care Team (Late st Contact Info) Description 08/31/2023 Telephone [facility] Integrative Family Medicine [address] [phone] Fay Dotson, RN Results Social History Tobacco Use Types [...] place to sleep or slept in a m[facility] (including now)? No 01/31/2023 Interpersonal Safety Answer [...] Dispensed Refills Start Date End Da te cyanocobalamin (VITAMIN B-12) 1,000 mcg tablet Take 1 Tablet by mouth daily. 90 Tablet 1 08/31/2023 cyanocobalamin (VITAMIN B-12) 1,000 mcg tablet Take 1 Tablet by mouth daily. 90 Tablet 3 08/31/2023 08/31/2023 documented in this encounter Miscellaneous Notes * Telephone Encounter - Fay Dotson RN - 08/31/2023 1158 EST Nurse relayed results to caregiver Salome. Patient amenable to taking daily supplement. Nurse sent script to [facility] and they will mail this to her. * Telephone Encounter - Fay Dotson RN - 08/31/2023 1157 EST ----- Message from Nivia Tinsley MD sent at 08/30/2023 15:45 EST ----- That said I thought, but then I did not see it on her med list and looked back at my old note and the B12 was checked because she had fatigue. Since it was her last one, it must of dropped off her list. Yes I think we can continue oral supplementation now at 1000 mcg a day. Okay to send 90 pills and 1 refill. ----- Message ----- From: Fay Dotson RN Sent: 08/30/2023 15:38 EST To: Nivia Tinsley MD We were doing B12 injections once weekly for 4 weeks. I gave last one today. [facility] lab prior to injection documented in this encounter Plan of Treatment Upcoming Encounters Date Type Department Care Team (Late st Contact Info) Description 06/11/2024 12:45 EDT Office Visit [facility] Ophthalmology - [place] [address] [place], [place] [phone] Santiago Anthony MD 111 [facility] 5 [place] [address] 07/15/2024 10:45 EDT Office Visit [facility] Cardiology Clinic [address] [place], [place] [phone] Gianfranco Flowers MD 130 [facility] [address] [place] [address] documented as of this encounter Visit Diagnoses Not on filedocumented in this encounter Discontinued Medications Medication Sig Discontinue Reason Start Date End Da te cyanocobalamin (VITAMIN B-12) 1,000 mcg tablet Take 1 Tablet by mouth daily. Error 08/31/2023 08/31/2023 documented as of this encounter Care Teams Cutter Head Sharpener Relationship Specialty Start Date End Date Nivia Tinsley MD [address] [place] [address] PCP - General Family Medicine - Primary Care 08/27/19 Zheng Tapia MD [address] [place] [address] [address] [place] [address] Internal Medicine - Primary Care 09/01/19 Shazia Burks MD [address] [place], [place] [address] Neurology 09/01/19 Tony Baron OD [address] [place] [address] Medical Aide 09/01/19 Keira Paniagua MD [address] [place] [address] Cardiovascular Disease 09/06/20 Siva Perkins MD [address] [place] [address] Neurology 09/06/20 documented as of this encounter
--- OUTSIDE RECORDS SUMMARY | 2024-04-29 18:15 | XMS_ITS | Encounter Summary ---
Author Organization [facility] Address [address] [place] [address] Care Team Providers Care Child Abuse Worker Name Role Phone Nivia Tinsley MD Primary Care Provider [phone] Zheng Tapia MD Unavailable Shazia Burks MD Unavailable [phone] Tony Baron OD Unavailable [phone] Keira Paniagua MD Unavailable [phone] Siva Perkins MD Unavailable [phone] Reason for Visit * Reason Comments Injections Encounter Details Date Type Department Care Team (Late st Contact Info) Description 08/16/2023 10:[address] [facility] Integrative Family Medicine [address] [phone] Nurse, [facility] Low serum vitamin B12 (Primary Dx) Social History Tobacco Use Types [...] place to sleep or slept in a long term (including now)? No 01/31/2023 Interpersonal Safety Answer [...] Sign Reading Time Taken Comments Blood Pressure - - Pulse - - Temperature - - Respiratory Rate 16 08/16/2023 0958 EST Oxygen Saturation - - Inhaled Oxygen Concentration [...] as of this encounter Progress Notes * Marissa Gibbs RN - 08/16/2023 1000 EST Patient presents to the office for a B12 Injection. Procedure Note: B12 administered in right deltoid. Nurse offered the covid injection for patient today. She would like to think about it and will likely get it at her next visit. Patient tolerates procedure well and leaves the suite without complaint. Patient instructed to contact the office with any further questions or concerns. I was supervised by Nivia Tinsley MD who was present and immediately available in the office suite. MARISSA GIBBS RN 08/16/2023 9:44 documented in this encounter Plan of Treatment Upcoming Encounters Date Type Department Care Team (Late st Contact Info) Description 06/11/2024 12:45 EDT Office Visit [facility] Ophthalmology [facility] [address] [place], [place] [address] Santiago Anthony MD [address] [place] [address], [address] [place] [phone] 07/15/2024 10:[address] [facility] Cardiology [facility] [address] [place] [address] Gianfranco Flowers MD 130 [facility] [address] [place] [address] documented as of this encounter Visit Diagnoses Diagnosis Low serum vitamin B12- Primary documented in this encounter Administered Medications Inactive Administered Medications - up to 3 most recent administrations Medication Order MAR Action Action Date Dose Rate Site cyanocobalamin (VITAMIN B12) injection 1,000 mcg 1,000 mcg, intramuscular, WEEKLY, 4 doses, First dose on Karrie 08/02/23 at 1030, Last dose on Karrie 08/23/23 at 1030, Routine Given 08/30/2023 10:50 EST 1,000 mcg Right Deltoid Given 08/16/2023 9:54 EST 1,000 mcg Right Deltoid Given 08/10/2023 9:57 EST 1,000 mcg Left Deltoid documented in this encounter Care Teams Child Abuse Worker Relationship Specialty Start Date End Date Nivia Tinsley MD [address] [place] [address] PCP - General Family Medicine - Primary Care 08/27/19 Zheng Tapia MD [address] [place] [address] [place] [address] Internal Medicine - Primary Care 09/01/19 Shazia Burks MD [address] [place] [address] Neurology 09/01/19 Tony Baron, FRANCK [address] [place] [address] Nail Setter 09/01/19 Keira Paniagua MD 130 [facility] [address] [place] [address] Cardiovascular Disease 09/06/20 Siva Perkins MD [address] [place] [phone] Neurology 09/06/20 documented as of this encounter
--- OUTSIDE RECORDS SUMMARY | 2024-04-29 18:15 | XMS_ITS | Encounter Summary ---
Author Organization [facility] Address [address] [place] [address] Care Team Providers Care Veneer Clipper Name Role Phone Nivia Tinsley MD Primary Care Provider [phone] Zheng Tapia MD Unavailable Shazia Burks MD Unavailable [phone] Tony Baron OD Unavailable [phone] Keira Paniagua MD Unavailable [phone] Siva Perkins MD Unavailable [phone] Reason for Visit * Reason Comments Injections B12 Encounter Details Date Type Department Care Team (Late st Contact Info) Description 08/10/2023 10:[address] [facility] Integrative Family Medicine [address] [phone] Nurse, [facility] Low serum vitamin B12 (Primary Dx) [...] place to sleep or slept in a longterm (including now)? No 01/31/2023 Interpersonal Safety Answer [...] - Temperature - - Respiratory Rate 16 08/10/2023 1056 EST Oxygen Saturation - - Inhaled Oxygen [...] Progress Notes * Marissa Gibbs RN - 08/10/2023 1000 EST Patient presents to the office for a B12 Injection. Procedure Note: Administered in left deltoid Patient tolerates procedure well and leaves the suite without complaint. Patient instructed to contact the office with any further questions or concerns. I was supervised by Nivia Tinsley MD who was present and immediately available in the office suite. MARISSA GIBBS RN 08/10/2023 9:57 documented in this encounter Plan of Treatment Upcoming Encounters Date Type Department Care Team (Late st Contact Info) Description 06/11/2024 12:45 EDT Office Visit [facility] Ophthalmology - [address] [id number] Santiago Anthony MD [address] [place] [address], [facility] [address] [place] [address] 07/15/2024 10:[address] [facility] Cardiology Clinic [address] [place], [place] [phone] Gianfranco Flowers MD [address] [facility] [address] [place] [address] documented as of this encounter [...] Deltoid documented in this encounter Care Teams Veneer Clipper Relationship Specialty Start Date End Date Nivia Tinsley MD [address] [place] [address] PCP - General Family Medicine - Primary Care 08/27/19 Zheng Tapia MD [address] [place] [address] [address] [place] [address] Internal Medicine - Primary Care 09/01/19 Shazia Burks MD [address] [place] [address] Neurology 09/01/19 Tony Baron OD [address] [place] [address] Queen Producer 09/01/19 Keira Paniagua MD [address] [facility] [address] [place] [address] Cardiovascular Disease 09/06/20 Siva Perkins MD [address] [place] [phone] Neurology 09/06/20 documented as of this encounter
--- OUTSIDE RECORDS SUMMARY | 2024-04-29 18:15 | XMS_ITS | Encounter Summary ---
Author Organization [facility] Address [address] [place] [address] Care Team Providers Care Conservation Enforcement Officer Name Role Phone Nivia Tinsley MD Primary Care Provider Zheng Tapia MD Unavailable Shazia Burks MD Unavailable [phone] Tony Baron OD Unavailable [phone] Keira Paniagua MD Unavailable [phone] Siva Perkins MD Unavailable [phone] Reason for Visit * Reason Onset Date Comments Medication Management 08/03/2023 Encounter Details Date Type Department Care Team (Late st Contact Info) Description 08/03/2023 Telephone [facility] [place] [address] [phone] [address] [phone] Medication Management Social History Tobacco Use Types Packs/Day Years [...] encounter Miscellaneous Notes * Telephone Encounter - Avis Mckeon - 08/24/2023 1116 EST Letter sent to pt today * Telephone Encounter - Phil Vickers RN - 08/15/2023 1609 EST Unable to reach the patient. Meloxicam discontinued. * Telephone Encounter - Claudia Vizcarra - 08/03/2023 1156 EDT Vika called from in [place] because she is making pt's bubble pack and she noticed there's an order for meloxicam at in [place], but also Ibuprofen at in [place]. Is pt supposed to begetting both? Should they both be ordered through in [place] for bubble pack? [phone] documented in this encounter Plan of Treatment Upcoming Encounters Date Type Department Care Team (Late st Contact Info) Description 06/11/2024 12:45 EDT Office Visit [facility] Ophthalmology [facility] [address] [place] [address] Santiago Anthony MD [address] [facility] [address] [place] [address] 07/15/2024 10:45 EDT Office Visit [facility] Cardiology Clinic [address] [place] [address] Gianfranco Flowers MD [address] [place] [address] [address] [place] [address] documented as of this encounter Visit Diagnoses Not on filedocumented in this encounter Discontinued Medications Medication Sig Discontinue Reason Start Date End Da te meloxicam (MOBIC) 7.5 mg tabletIndications:Primary osteoarthritis of right knee Take 1 Tablet by mouth daily. Take with a meal and monitor for bleeding 08/01/2023 08/15/2023 documented as of this encounter Care Teams Conservation Enforcement Officer Relationship Specialty Start Date End Date Nivia Tinsley MD [address] [place] [phone] PCP - General Family Medicine - Primary Care 08/27/19 Zheng Tapia MD [address] [place] [address] Internal Medicine - Primary Care 09/01/19 Shazia Burks MD [address] [place] [address] Neurology 09/01/19 Tony Baron OD [address] [place] [phone] Resident Care Coordinator 09/01/19 Keira Paniagua MD [address] [place] [address] [address] [place] [address] Cardiovascular Disease 09/06/20 Siva Perkins MD [address] [place] [phone] Neurology 09/06/20 documented as of this encounter
--- OUTSIDE RECORDS SUMMARY | 2024-04-29 18:15 | XMS_ITS | Encounter Summary ---
Author Organization [facility] Address [address] [place] [address] Care Team Providers Care Jacker Feeder Name Role Phone Nivia Tinsley MD Primary Care Provider Zheng Tapia MD Unavailable Shazia Burks MD Unavailable [phone] Tony Baron OD Unavailable [phone] Keira Paniagua MD Unavailable [phone] Siva Perkins MD Unavailable Reason for Visit * Reason Comments Altered Mental Status Pt last seen jenna james last pm. Lives alone with visiting nurse. Caregiver with her six days a week. Pt history of stroke having difficulty finding words per caregiver. Pt alert and oriented. Caregiver states pt slurring words Encounter Details Date Type Department Care Team (Late st Contact Info) Description 08/21/2023 9:39 EST - 08/21/2023 12:35 EST Emergency [facility] Emergency Department [address] [place] [address] Masood Ortiz PA-C [address] [place] [address] Kasi Penaloza MD [address] [place] [address] Episodic confusion (Primary Dx); Acute cystitis with hematuria Discharge Disposition: Home or Self Care Social [...] place to sleep or slept in a nursing home (including now)? No 01/31/2023 Interpersonal Safety [...] Sign Reading Time Taken Comments Blood Pressure 194/143 08/21/2023 1213 EST Pulse 95 08/21/2023 0937 EST Temperature 36.6 ??C (97.8 ??F) 08/21/2023 0937 EST Respiratory Rate 17 08/21/2023 1213 EST Oxygen Saturation 93% 08/21/2023 1130 EST Inhaled Oxygen Concentration - - Weight 68.9 kg (152 lb) 08/21/2023 0937 EST Height 165.1 cm (5' 5) 08/21/2023 0937 EST Body Mass Index 25.29 08/21/2023 0937 EST documented in this encounter Functional Status [...] No 02/21/2022 documented as of this encounter Discharge Instructions * Discharge Instructions* Masood Ortiz PA-C - 08/21/2023 12:23 EST You are seen in the emergency department after an episode of memory loss and speech changes. Your lab evaluation today was reassuring, you had a CT scan and CTA of your brain that was unchanged from your previous MRI and your symptoms seem to resolve. Your urine does show signs of infection, you were treated for urinary tract infection with a singledose of Monurol. Go home to rest, stay well hydrated, if your symptoms significantly worsen or change return to the emergency department. * Attachments The following attachments cannot be sent through Care Everywhere. * UTI (Urinary Tract Infection): Female (Romanian) documented in this encounter Medications at Time of Discharge Medication Sig Dispensed Refills Start Date End Date aspirin chewable 81 mg tablet CHEW AND SWALLOW 1 TABLET BY MOUTH ONCE DAILY 30 Tablet 11 08/01/2023 cholecalciferol, Vitamin D3, 25 mcg (1,000 unit) tablet Take 1 Tablet by mouth daily. 04/28/2022 hypromellose (ISOPTO TEARS) 0.5 % ophthalmic solution Place 1 Drop into both eyes 3 times daily. medical supply, miscellaneous ([employer]) with seat, basket under the seat and breaks as directed dx: Abnormal gait and legally blind daily 07/13/2017 irauhbcc-hvudorxzb-mkppx ethasone (MAXITROL) 3.5mg/mL-10,000 unit/mL-0.1 % ophthalmic suspension 01/19/2023 nitroglycerin (NITROSTAT) 0.4 mg SL tabletIndications:NSTEMI (non-ST elevated myocardial infarction) ([facility]) Place 1 Tablet under the tongue every 5 minutes as needed for Chest Pain. 30 Tablet 03/14/2022 acetaminophen 325 mg capsule Take by mouth 2 times daily. 11/22/2023 atorvastatin (LIPITOR) 40 mg tablet Take 1 Tablet by mouth at bedtime. 30 Tablet 11 12/01/2022 11/14/2023 carvediloL (COREG) 3.125 mg tablet Take 1 Tablet by mouth 2 times daily with breakfast and dinner. 180 Tablet 3 11/13/2022 10/11/2023 ezetimibe (ZETIA) 10 mg tablet Take 1 Tablet by mouth daily. 90 Tablet 1 07/16/2023 12/14/2023 ibuprofen (MOTRIN) 400 mg tabletIndications:Primar y osteoarthritis of both hips Take 1 Tablet by mouth 2 times daily as needed for Pain. 60 Tablet 11 07/26/2023 08/30/2023 levothyroxine (SYNTHROID) 100 mcg tabletIndications:Other specified hypothyroidism Take 1 Tablet by mouth daily. 30 Tablet 11 11/22/2022 10/09/2023 losartan (COZAAR) 100 mg tabletIndications:Essent ial hypertension 1 tab(s) orally once a day 30 Tablet 11 12/01/2022 11/06/2023 triamcinolone (KENALOG) 0.1 % cream Apply topically to affected area 2 times daily. For up to 2 weeks to rash on legs and neck. Do not apply to face, armpit or groin. 60 g 3 04/17/2022 08/28/2023 vit A,C & F-omrsvt-ryuadzbn (OCUVITE) 300 mcg-200 mg-27 mg-2 mg tablet Take 1 tab by mouth daily 30 Tablet 11 11/16/2022 10/16/2023 documented as of this encounter Discharge Disposition Disposition Code Departure Means Destination Comment s Home or Self Penitentiary documented in this encounter ED Notes * Julia Peace - 08/21/202351 EST 12 Lead EKG Performed by Julia Peace and shown to Masood Ortiz PA-C. * Kasi Penaloza MD - 08/21/2023932 EST I discussed this patient with the PA. I have reviewed the patient's test results. I agree with the assessment and plan as documented except where noted. 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 On exam she is well-appearing, symptoms have resolved completely. She has noted to be quite hypertensive, vital signs otherwise reassuring. CT/CTA obtained, she does have some vascular narrowing that appears unchanged from previous MRI. EKG shows normal sinus rhythm with a rate of 91, poor R wave progression with T wave inversions in aVL, this does appear unchanged from last EKG in 2021. Single troponin not elevated, lab evaluation largely reassuring, UA is notable for 1+ leuk esteraseand few bacteria on sediment, she has been incontinent of urine x 2, will treat for UTI with singledose fosfomycin. Patient continued at her cognitive baseline throughout ED stay, from review of medication list she is on maximum medical management for stroke prevention. Ultimately discharged home. Did discuss her care with her daughter. Discharged with caregiver, see discharge instructions for patient education/return precautions. Case discussed with Dr. Penaloza. An EKG was obtained and independently interpreted. Laboratory data was reviewed. Medical Decision Making Acute cystitis with hematuria: acute illness or injury Episodic confusion: acute illness or injury Amount and/or Complexity of Data Reviewed Labs: ordered. Radiology: ordered. Risk Prescription drug management. Final diagnoses: Episodic confusion Acute cystitis with hematuria Disposition: Discharged Chief complaint: Episode of altered mental status HPI Concetta is an 83-year-old female with a history of CVA, NSTEMI legally blind at baseline with a history of macular degeneration who presents to the emergency department after an episode of confusion. Caregiver at the bedside reports that when she met the patient this morning she seemed confused, confusion progressed to what she describes as word salad where she was not making any sense in her speech, entire episode lasted less than 1 hour, at time of arrival in the emergency department caregiver reports that she is at her baseline. Patient reports that she felt well prior to episode, she is alert and oriented to person place timeand event, feels that she is at her baseline. History was provided by: Patient Records reviewed include: N/A Patient's pertinent PMH, FH, SH were reviewed and edited as necessary. Nursing notes reviewed. A medical screening exam was performed. Physical Exam BP (!) 194/143 Pulse 95 Temp 36.6 ??C (97.8 ??F) (Oral) Resp 17 Ht 165.1 cm (65) Wt 68.9kg (152 lb) SpO2 93% BMI 25.29 kg/m?? Physical Exam Constitutional: Appearance: She is well-developed. HENT: Head: Normocephalic and atraumatic. Mouth/Throat: Mouth: Mucous membranes are moist. Eyes: Conjunctiva/sclera: Conjunctivae normal. Cardiovascular: Heart sounds: Normal heart sounds. No murmur heard. Pulmonary: Effort: Pulmonary effort is normal. Breath sounds: Normal breath sounds. Abdominal: General: Abdomen is flat. Palpations: Abdomen is soft. Tenderness: There is no abdominal tenderness. Musculoskeletal: Cervical back: Normal range of motion. Skin: General: Skin is warm and dry. Neurological: General: No focal deficit present. Mental Status: She is alert and oriented to person, place, and time. Cranial Nerves: No cranial nerve deficit. Motor: No weakness. Psychiatric: Mood and Affect: Mood normal. Behavior: Behavior normal. Procedures Procedures documented in this encounter Miscellaneous Notes * Result Encounter Note - Raymon Grossman PA-C - 08/21/2023 1235 EST Tx in ED with fosfomycin. Awaiting sensitivities. documented in this encounter Plan of Treatment Upcoming Encounters Date Type Department Care Team (Late st Contact Info) Description 06/11/2024 12:45 EDT Office Visit [facility] Ophthalmology - [address] [id number] Santiago Anthony MD [address] [place] [address] [address] [place] [address] 07/15/2024 10:45 EDT Office Visit [facility] [address] [place] [address] Gianfranco Flowers MD [address] [facility] [address] [place] [phone] documented as of this encounter Procedures Procedure Name Priority Date/Time Associated Diagnosis Comments ECG REPORT - SCANNED 08/23/2023 11:[address] ANGIO HEAD NECK STAT 08/21/2023 10 :54 EST UA WITH REFLEX SEDIMENT (CULTURE IF POS) STAT 08/21/2023 10:40 EST UA SEDIMENT + REFLEX TO CULTURE STAT 08/21/2023 10:40 EST BACTERIAL CULTURE, URINE Today 08/21/2023 10:40 EST HOLD BLUE TOP Routine 08/21/2023 10:08 EST TROPONIN I STAT 08/21/2023 10:08 EST COMPLETE BLOOD COUNT AND DIFFERENTIAL STAT 08/21/2023 10:08 EST C REACTIVE PROTEIN STAT 08/21/2023 10 :08 EST COMPREHENSIVE METABOLIC PANEL (CMP) STAT 08/21/2023 10:08 EST POCT GLUCOSE, INTERFACED Routine 08/21/2023 9:56 EST POCT GLUCOSE, INTERFACED Routine 08/21/2023 9:47 EST EKG 12-LEAD STAT 08/21/2023 9:46 EST documented in this encounter Results * ECG REPORT - SCANNED (08/23/2023 11:14 EST) 08/23/2023 11:1 4 EST Scan 2 Housecalls Nurse PROCEDURE/MINOR KAYLA GICAL ORDERABLES * CT ANGIO HEAD NECK (08/21/2023 10:54 EST) Anatomical Region Laterality Modality Head and Neck Computed Tomogra phy 08/21/2023 11:2 4 EST Addenda Addendum by Baldev Pastrana MD on 09/04/2023 11:04 EST Addendum: TECHNIQUE: CT Angiogram of the head and neck was performed with nonionic IV contrast. Precontrast and postcontrast enhanced CT scans of the brain were obtained. Postcontrast enhanced scans of the neck were obtained. 100 mL of Omnipaque 350 was administered intravenously. Axial ?? CT images, multiplanar reformatted and 3-D MIP images were obtained. [id number] Impressions 08/21/2023 11:[address] ANGIOGRAM IMPRESSION: 1. Irregular narrowing of right M2 segment, unchanged compared to prior MRI angiogram. 2. Irregular narrowing of the right and left V4 segments, unchanged compared to a prior MRI angiogram. 3. Unchanged basilar artery chronic occlusion. CT ANGIOGRAM OF THE NECK: Unremarkable neck soft tissues. Clear lung apices. Degenerative spondylosis of the cervical spine. Aortic arch: Normal 3 vessel aortic arch. No significant stenosis of the great vessel origins. Anterior Circulation: Right CCA: No significant stenosis, dissection or pseudoaneurysm. Right ICA: No significant stenosis, dissection or pseudoaneurysm. Left CCA: No significant stenosis, dissection or pseudoaneurysm. Left ICA: ??No significant stenosis, dissection or pseudoaneurysm. Posterior Circulation: Right vertebral artery: No significant stenosis, dissection or pseudoaneurysm. Left vertebral artery: No significant stenosis, dissection or pseudoaneurysm. NECK CT ANGIOGRAM IMPRESSION: No significant stenosis, dissection or pseudoaneurysm identified within the carotid or vertebral arteries within the neck. COMMENT: Reference per NASCET criteria for degree of stenosis: Mild: less than 50% stenosis. Moderate: 50-69% stenosis. Severe: 70-94% stenosis. Near occlusion: 95-99% stenosis. [id number] Narrative 08/21/2023 11:24 EST INDICATION: episode of word-salad ??and confusion this morning; episode of word-salad ??and confusion this morning;. COMPARISON: Head CT 02/21/2022. MR angiogram of the head and neck 01/17/2020 TECHNIQUE: Angiogram of the head and neck was performed with nonionic IV contrast. Precontrast and postcontrast enhanced scans of the brain were obtained. Postcontrast enhanced scans of the neck were obtained. 100 mL of Omnipaque 350 was administered intravenously. Axial images, multiplanar reformatted and 3-D MIP images were obtained. FINDINGS: CT ANGIOGRAM OF THE HEAD: Global cerebral volume loss is consistent with patient age. Decreased attenuation within the white matter tracts of both cerebral hemispheres is nonspecific but typically seen with small vessel disease/chronic white matter ischemic changes of aging. 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 No intracranial hemorrhage or mass effect. No abnormal intra-axial or extra-axial fluid collections. Stable left maxillary sinus mucous retention cyst and/or polyp. Clear mastoids. No bone abnormality. Anterior Circulation: Right ICA: No acute findings. Intracranial segment is patent with no significant stenosis. No aneurysm. Right VI: Unremarkable. No occlusion or significant stenosis. No aneurysm. Right MCA: Irregular narrowing of the right M2 segment, unchanged compared to previous MRI angiogram. No MCA occlusion or aneurysm. Left ICA: No acute findings. Intracranial segment is patent with no significant stenosis. No aneurysm. Left VI: Unremarkable. No occlusion or significant stenosis. No aneurysm. Left MCA: Unremarkable. No occlusion or significant stenosis. No aneurysm. Posterior Circulation: Right DROP WIRE HANGER: Unremarkable. No occlusion or significant stenosis. No aneurysm. Right vertebral artery: Irregular narrowing of the right V4 segment, unchanged compared to a prior MR angiogram. Left DROP WIRE HANGER: Unremarkable. No occlusion or significant stenosis. No aneurysm. Left vertebral artery: Irregular narrowing of the left V4 segment, unchanged compared to a previous MRI angiogram. Basilar artery: Nonvisualization of the midportion of the basilar artery, unchanged and consistent with known basilar occlusion. Procedure Note Baldev Pastrana MD - 08/21/2023 INDICATION: episode of word-salad and confusion this morning; episodeof word-salad and confusion this morning;. COMPARISON: Head CT 02/21/2022. MR angiogram of the head and neck01/17/2020 TECHNIQUE: Angiogram of the head and neck was performed with nonionic IVcontrast. Precontrast and postcontrast enhanced scans of the brain wereobtained. Postcontrast enhanced scans of the neck were obtained. 100 mL ofOmnipaque 350 was administered intravenously. Axial images, multiplanarreformatted and 3-D MIP images were obtained. FINDINGS: CT ANGIOGRAM OF THE HEAD: Global cerebral volume loss is consistent with patient age. Decreasedattenuation within the white matter tracts of both cerebral hemispheres isnonspecific but typically seen with small vessel disease/chronic whitematter ischemic changes of aging. Medial right parietal lobe partiallycalcified mass, likely vascular malformation, unchanged compared toprevious studies dating back to 2015. No intracranial hemorrhage or masseffect. No abnormal intra-axial or extra-axial fluid collections. Stableleft maxillary sinus mucous retention cyst and/or polyp. Clear mastoids.No bone abnormality. Anterior Circulation: Right ICA: No acute findings. Intracranial segment is patent with nosignificant stenosis. No aneurysm. Right VI: Unremarkable. No occlusion or significant stenosis. Noaneurysm. Right MCA: Irregular narrowing of the right M2 segment, unchanged comparedto previous MRI angiogram. No MCA occlusion or aneurysm. Left ICA: No acute findings. Intracranial segment is patent with nosignificant stenosis. No aneurysm. Left VI: Unremarkable. No occlusion or significant stenosis. Noaneurysm. Left MCA: Unremarkable. No occlusion or significant stenosis. Noaneurysm. Posterior Circulation: Right DROP WIRE HANGER: Unremarkable. No occlusion or significant stenosis. Noaneurysm. Right vertebral artery: Irregular narrowing of the right V4 segment,unchanged compared to a prior MR angiogram. Left DROP WIRE HANGER: Unremarkable. No occlusion or significant stenosis. Noaneurysm. Left vertebral artery: Irregular narrowing of the left V4 segment,unchanged compared to a previous MRI angiogram. Basilar artery: Nonvisualization of the midportion of the basilar artery,unchanged and consistent with known basilar occlusion. IMPRESSION HEAD CT ANGIOGRAM IMPRESSION: 1. Irregular narrowing of right M2 segment, unchanged compared to priorMRI angiogram. 2. Irregular narrowing of the right and left V4 segments, unchangedcompared to a prior MRI angiogram. 3. Unchanged basilar artery chronic occlusion. CT ANGIOGRAM OF THE NECK: Unremarkable neck soft tissues. Clear lung apices. Degenerativespondylosis of the cervical spine. Aortic arch: Normal 3 vessel aortic arch. No significant stenosis of thegreat vessel origins. Anterior Circulation: Right CCA: No significant stenosis, dissection or pseudoaneurysm. Right ICA: No significant stenosis, dissection or pseudoaneurysm. Left CCA: No significant stenosis, dissection or pseudoaneurysm. Left ICA: No significant stenosis, dissection or pseudoaneurysm. Posterior Circulation: Right vertebral artery: No significant stenosis, dissection orpseudoaneurysm. Left vertebral artery: No significant stenosis, dissection orpseudoaneurysm. NECK CT ANGIOGRAM IMPRESSION: No significant stenosis, dissection orpseudoaneurysm identified within the carotid or vertebral arteries withinthe neck. COMMENT: Reference per NASCET criteria for degree of stenosis: Mild: lessthan 50% stenosis. Moderate: 50-69% stenosis. Severe: 70-94% stenosis.Near occlusion: 95- 99% stenosis. [id number] Masood Ortiz PA-C [facility] CT ORDERABLES * (ABNORMAL) BACTERIAL CULTURE, URINE (08/21/2023 10:40 EST) Pathologist [facility] Organism ID [id number] to 100,000 CFU/ml Proteus mirabilis( A) VITEK SUSCEPTIBILITY 08/23/2023 7:51 EST [facility] Comment: Cefazolin susceptibility results can be used to predict susceptibility results for the following oral cephalosporins when used for therapy of uncomplicated UTI's due to E.coli, K.pneumoniae and P.mirabilis: cefaclor, cefdinir, cefpodoxime, cefprozil, cefuroxime, cephalexin and loracarbef. ??Please note that only cefdinir, cefpodoxime, cefuroxime and cephalexin are on the [facility] inpatient formulary. Urine URINE SPECIMEN OBTAINED BY CLEAN CATCH PROCEDURE / Unknown Urine Collect / Unknown 08/21/2023 10:40 EST 08/21/2023 11:03 EST Narrative Organism Antibiotic Method Susceptibility Proteus mirabilis Amoxicillin Clavulan ic acid VITEK SUSCEPTIBILITY <=2 ug/mL: Susceptible Proteus mirabilis Ampicillin VITEK SUSCEPTIBILITY <=2 ug/mL: Susceptible Proteus mirabilis Ampicillin Sulbactam VITEK SUSCEPTIB ILITY <=2 ug/mL: Susceptible Proteus mirabilis Cefazolin VITEK SUSCEPTIBILITY <=4 ug/mL: Susceptible Proteus mirabilis Cefepime VITEK SUSCEPTIBILITY <=1 ug/mL: Susceptible Proteus mirabilis Ceftriaxone VITEK SUSCEPTIBILITY <=1 ug/mL: Susceptible Proteus mirabilis Ciprofloxacin VITEK SUSCEPTIBILITY <=0.25 ug/mL: Susceptible Proteus mirabilis Ertapenem VITEK SUSCEPTIBILITY <=0.5 ug/mL: Susceptible Proteus mirabilis Gentamicin VITEK SUSCEPTIBILITY <=1 ug/mL: Susceptible Proteus mirabilis Levofloxacin VITEK SUSCEPTIBILITY <=0.12 ug/mL: Susceptible Proteus mirabilis Nitrofurantoin VITEK SUSCEPTIBILITY 32 ug/mL: Resistant Proteus mirabilis Piperacillin Tazobactam VITEK SUSCEP TIBILITY <=4 ug/mL: Susceptible Proteus mirabilis Tobramycin VITEK SUSCEPTIBILITY <=1 ug/mL: Susceptible Proteus mirabilis Trimethoprim-Sulfame tho xazole VITEK SUSCEPTIBILITY <=20 ug/mL: Susceptible Masood Ortiz PA-C MICROBIOLOGY - GENE RAL ORDERABLES [facility] [address] [place] [address] * (ABNORMAL) UA SEDIMENT + REFLEX TO CULTURE (08/21/2023 10:40 EST) Urine RBC Count, Manual 3 - 10(A) 0 - 2 Cells/HPF 08/21/2023 11:03 [facility] Urine WBC Count 10 - 50(A) 0 - 3 Cells/HPF 08/21/2023 11:03 [facility] Urine Squamous Count, Manual Few(A) None Seen Cells/HPF 08/21/2023 11:03 [facility] Urine Hyaline Cast Count, Manual <=10 <=10 Casts/LPF 08/21/2023 11:03 [facility] Urine Bacteria Count, Manual Few(A) None Seen Bacteria/ HPF 08/21/2023 11:03 [facility] UA Small Round Cells Transitional Epithelial Cells Present Renal Epithelial Cells Present(A) None Seen per HPF 08/21/2023 11:03 [facility] Urine URINE SPECIMEN OBTAINED BY CLEAN CATCH PROCEDURE / Unknown Urine Collect / Unknown 08/21/2023 10:40 EST 08/21/2023 10:47 EST [facility] - 08/21/2023 11:03 EST Urine Sediment Analysis results are unreliable on urines that are unrefrigerated for >2 hrs or refrigerated >8 hrs. A Urine Culture test has been reflexively ordered based on result criteria from the Urine Sediment Analysis. Masood Ortiz PA-C URINALYSIS ORDERABL ES Performing Organization Address City/[facility]/ZIP Co de Phone Number [facility] [address] [place] [address] * (ABNORMAL) UA CASCADE TO CULTURE (08/21/2023 10:40 EST) Color UA Yellow Colorless, Yellow 08/21/2023 10:58 [facility] Clarity UA Clear Clear 08/21/2023 10:58 [facility] Glucose UA Trace(A) Negative mg/dL 08/21/2023 10:58 [facility] Bilirubin UA Negative Negative 08/21/2023 10:58 [facility] Ketones UA Negative Negative 08/21/2023 10:58 [facility] Specific [place], Urine 1.010 1.001 - 1.030 08/21/2023 10:58 [facility] Blood UA Negative Negative 08/21/2023 10:58 [facility] pH, UA 7.0 <8.5 08/21/2023 10:58 [facility] Protein UA Negative Negative mg/dL 08/21/2023 10:58 [facility] Urobilinogen UA 0.2 0.2-1.0 mg/dL mg/dL 08/21/2023 10:58 [facility] Nitrite UA Negative Negative 08/21/2023 10:58 [facility] Leukocyte Esterase UA 1+(A) Negative 08/21/2023 10:58 [facility] Urine URINE SPECIMEN OBTAINED BY CLEAN CATCH PROCEDURE / Unknown Urine Collect / Unknown 08/21/2023 10:40 EST 08/21/2023 10:47 EST Masood Ortiz PA-C URINALYSIS ORDERABL ES [facility] [address] [place] [address] * HOLD BLUE TOP (08/21/2023 10:08 EST) Hold Hold 08/21/2023 11:15 EST [facility] Blood VENOUS BLOOD / Unknown Venipuncture / Unknown 08/21/2023 10:08 EST 08/21/2023 10:09 EST Masood Ortiz PA-C LAB INFO SERVICE AN D SUPPORT & PHONE RESULT Performing Organization Address [facility]/ZIP Co de Phone Number [facility] [address] [place] [address] * TROPONIN I (08/21/2023 10:08 EST) [facility] Troponin I (ng/mL) <0.034 <0.034 ng/mL 08/21/2023 10:41 EST [facility] Blood VENOUS BLOOD / Unknown Venipuncture / Unknown 08/21/2023 10:08 EST 08/21/2023 10:09 EST Narrative [facility] - 08/21/2023 10:41 EST The results of this assay can be falsely lowered due to the consumption of Biotin. Masood Ortiz PA-C CHEMISTRY & BLOOD G ORDERABLES Performing Organization Address [facility] Number [facility] [address] [place] [address] * C REACTIVE PROTEIN (08/21/2023 10:08 EST) [facility] C-Reactive Protein 5.0 <10.0 mg/L 08/21/2023 10:32 EST [facility] Blood VENOUS BLOOD / Unknown Venipuncture / Unknown 08/21/2023 10:08 EST 08/21/2023 10:09 EST Masood Ortiz PA-C CHEMISTRY & BLOOD G ORDERABLES Performing Organization Address [facility] Co de [facility] [address] [place] [address] * (ABNORMAL) COMPREHENSIVE METABOLIC PANEL (CMP) (08/21/2023 10:08 EST) Sodium 137 136 - 145 mmol/L 08/21/2023 10:32 [facility] Potassium 3.9 3.5 - 5.0 mmol/L 08/21/2023 10:32 [facility] Chloride 97 96 - 110 mmol/L 08/21/2023 10:32 [facility] CO2 Total 27 22 - 32 mmol/L 08/21/2023 10:32 [facility] Glucose 206(H) 70 - 99 mg/dl 08/21/2023 10:32 [facility] BUN 17 10 - 26 mg/dL 08/21/2023 10:32 [facility] Creatinine 0.71 0.52 - 1.04 mg/dL 08/21/2023 10:32 [facility] eGFR 83 >60 mL/min/1.7 3m2 08/21/2023 10:32 [facility] Total Protein 7.7 6.3 - 8.2 g/dL 08/21/2023 10:32 [facility] Albumin 4.6 3.4 - 4.9 g/dL 08/21/2023 10:32 [facility] Alkaline Phosphatase 100 38 - 126 U/L 08/21/2023 10:32 [facility] AST 22 15 - 46 U/L 08/21/2023 10:32 [facility] ALT 25 <35 U/L 08/21/2023 10:32 [facility] Bilirubin, Total 0.9 <1.4 mg/dL 08/21/20 10:32 [facility] Calcium 9.2 8.5 - 10.5 mg/dL 08/21/2023 10:32 [facility] Albumin/Globulin Ratio 1.5 1.0 - 2.5 g/dL 08/21/2023 10:32 [facility] Anion Gap 13 5 - 14 mmol/L 08/21/2023 10:32 [facility] Blood VENOUS BLOOD / Unknown Venipuncture / Unknown 08/21/2023 10:08 EST 08/21/2023 10:09 EST Masood Ortiz PA-C CHEMISTRY & BLOOD G ORDERABLES [facility] [address] [place] [address] * (ABNORMAL) COMPLETE BLOOD COUNT AND DIFFERENTIAL (08/21/2023 10:08 EST) WBC 7.81 4.00 - 12.40 K/cmm 08/21/2023 10:14 [facility] RBC 4.45 3.86 - 5.04 M/cmm 08/21/2023 10:14 [facility] Hemoglobin 14.8 11.6 - 15.2 g/dL 08/21/2023 10:14 [facility] HCT 42.1 34.9 - 44.4 % 08/21/2023 10:14 [facility] MCV 95 81 - 98 fL 08/21/2023 10:14 [facility] MCH 33.3 26.7 - 33.3 pg 08/21/2023 10:14 [facility] MCHC 35.2 32.1 - 35.9 g/dL 08/21/2023 10:14 [facility] RDW-CV 13.6 <14.7 % 08/21/2023 10:14 [facility] RDW-SD 46.5 <50.4 fl 08/21/2023 10:14 [facility] PLT 253 141 - 377 K/cmm 08/21/2023 10:14 [facility] MPV 10.4 9.5 - 12.7 fL 08/21/2023 10:14 [facility] % Neutrophils 77.3 % 08/21/2023 10:14 [facility] % Lymphocytes 11.9 % 08/21/2023 10:14 [facility] % Monocytes 6.1 % 08/21/2023 10:14 [facility] % Eosinophils 3.3 % 08/21/2023 10:14 [facility] % Basophils 0.6 % 08/21/2023 10:14 [facility] % Immature Grans 0.8 % 08/21/20 10:14 [facility] Absolute Neutrophils 6.03 2.20 - 8.85 K/cmm 08/21/2023 10:14 [facility] Absolute Lymphocytes 0.93(L) 1.09 - 3.30 K/cmm 08/21/2023 10:14 [facility] Absolute Monocytes 0.48 0.10 - 0.80 K/cmm 08/21/2023 10:14 [facility] Absolute Eosinophils 0.26 0.03 - 0.61 K/cmm 08/21/2023 10:14 [facility] ABS Basophils 0.05 0.01 - 0.11 K/cmm 08/21/2023 10:14 [facility] Absolute Immature Grans 0.06 0.00 - 0.06 K/cmm 08/21/2023 10:14 [facility] Type of Differential: Auto 08/21/2023 10:14 [facility] Blood VENOUS BLOOD / Unknown Venipuncture / Unknown 08/21/2023 10:08 EST 08/21/2023 10:09 EST Masood Ortiz PA-C PACKAGES & DNA PROB E ORDERABLES Performing Organization Address City/[facility]/ZIP Co de Phone Number [facility] [address] [place] [address] * (ABNORMAL) POCT GLUCOSE, INTERFACED (08/21/2023 9:56 EST) Glucose, POC 202(H) 70 - 100 mg/dL 08/21/2023 9:57 EST [facility] Blood CAPILLARY BLOOD / Unknown 08/21/2023 9:56 EST 08/21/2023 9:57 EST Masood Ortiz PA-C POINT OF CARE TEST ORDERABLES Performing Organization Address City/[facility]/ZIP Co de Phone Number [facility] [address] [place] [id number] * (ABNORMAL) POCT GLUCOSE, INTERFACED (08/21/2023 9:47 EST) Glucose, POC 208(H) 70 - 100 mg/dL 08/21/2023 9:48 EST [facility] Blood CAPILLARY BLOOD / Unknown 08/21/2023 9:47 EST 08/21/2023 9:48 EST Masood Ortiz PA-C POINT OF CARE TEST ORDERABLES [facility] [address] [place] [address] * EKG 12-LEAD (08/21/2023 9:46 EST) 08/21/2023 9:46 EST Narrative [facility] - 08/23/2023 11:00 EST ? [facility] ? Test Date: ?2023-08-21 Pat Name: ? CONCETTA STONE ? Department: ? Room: ? A02 Gender: ? Female ? Sas Statistical Programmer: ?? [place] : ?1940 ? Requested By: MARTY Mejia Order Number: [id number] ? Reading : ?? ROSENDA CASIANO MD ? Measurements Intervals ?Cool ? Rate: ? 91 ? P: ?46 WA: ? 180 ?QRS: ?-59 QRSD: ? 112 ?T: ?96 QT: ? 354 ? QTc: ?435 ? Interpretive Statements Normal sinus rhythm Left axis deviation Voltage criteria for left ventricular hypertrophy Nonspecific ST changes Compared to ECG 11/16/2021 12:29:13 ST (T wave) deviation now present Sinus bradycardia no longer present Possible ischemia still present I reviewed the tracing and have either agreed or edited the findings in this report. Electronically Signed On 08-23-2023 11:00:05 EST by ROSENDA CASIANO MD. Procedure Note Rosenda Casiano MD - 08/23/2023 [facility] Test Date: 2023-08-21 Pat Name: CONCETTA STONE Department: Room: A02 Gender: Female Sas Statistical Programmer: DEBBIE : [id number] Requested By: MARTY Mejia Order Number: [id number] Reading MD: ROSENDA CASIANO MD Measurements Intervals Cool Rate: 91 P: 46 WA: 180 QRS: -59 QRSD: 112 T: 96 QT: 354 QTc: 435 Interpretive Statements Normal sinus rhythm Left axis deviation Voltage criteria for left ventricular hypertrophy Nonspecific ST changes Compared to ECG 11/16/2021 12:29:13 ST (T wave) deviation now present Sinus bradycardia no longer present Possible ischemia still present I reviewed the tracing and have either agreed or edited the findings inthis report. Electronically Signed On 08-23-2023 11:00:05 EST by ROSENDA REYES. Masood Ortiz PA-C CARDIAC ECG ORDERAB LES [facility] documented in this encounter Visit Diagnoses Diagnosis Episodic confusion- Primary Unspecified psychosis Acute cystitis with hematuria Acute cystitis documented in this encounter Administered Medications Inactive Administered Medications - up to 3 most recent administrations Medication Order MAR Action Action Date Dose Rate Site fosfomycin (MONUROL) oral 3 g 3 g, oral, NOW X1, 1 dose, On Sun08/21/23 at 1230, Routine Given 08/21/2023 12:12 EST 3 g iohexoL (OMNIPAQUE 350) solution 100 mL 100 mL, intravenous, Once in imaging, 1 dose, Starting on Sun08/21/23 at 1038, Until Sun08/21/23 at 1055, Routine Given 08/21/2023 10:55 EST 100 mL documented in this encounter Active and Recently Administered Medications Times are shown in EST. Scheduled Medication Order 08/19/2023 08/20/2023 08/21/2023 fosfomycin (MONUROL) oral 3 g (COMPLETED) 3 g, oral, NOW X1, 1 dose, On Sun08/21/23 at 1230, Routine 1212 (Given - Provid er: Kamryn Zamora RN) iohexoL (OMNIPAQUE 350) solution 100 mL (COMPLETED) 100 mL, intravenous, Once in imaging, 1 dose, Starting on Sun08/21/23 at 1038, Until Sun08/21/23 at 1055, Routine 1055 (Given - Provid er: Seth Aquino) documented in this encounter Care Teams Jacker Feeder Relationship Specialty Start Date End Date Nivia Tinsley MD [address] [place] [address] PCP - General Family Medicine - Primary Care 08/27/19 Zheng Tapia MD [address] [place] [address] [address] [place] [address] Internal Medicine - Primary Care 09/01/19 Shazia Burks MD [address] [place] [address] Neurology 09/01/19 Tony Baron, FRANCK [address] [place] [phone] Manager Stars 09/01/19 Keira Paniagua MD [address] [place] [address] [address] [place] [address] Cardiovascular Disease 09/06/20 Siva Perkins MD [address] [place] [address] Neurology 09/06/20 documented as of this encounter
--- OUTSIDE RECORDS SUMMARY | 2024-04-29 18:15 | XMS_ITS | Encounter Summary ---
Author Organization [facility] Address [address] [place] [address] Care Team Providers Care Foreman/Project Manager Name Role Phone Nivia Tinsley MD Primary Care Provider [phone] Zheng Tapia MD Unavailable Shazia Burks MD Unavailable [phone] Tony Baron OD Unavailable [phone] Keira Paniagua MD Unavailable [phone] Siva Perkins MD Unavailable [phone] Reason for Visit * Reason Onset Date Comments Follow-up 08/22/2023 ED Encounter Details Date Type Department Care Team (Late st Contact Info) Description 08/22/2023 Telephone [facility]ative Family Medicine [address] [phone] Fay Dotson, RN Follow-up (ED) Social History Tobacco Use Types Packs/Day Years [...] Dispensed Refills Start Date End Da te triamcinolone (KENALOG) 0.1 % cream Apply topically to affected area 2 times daily. For up to 2 weeks to rash on legs and neck. Do not apply to face, armpit or groin. 60 g 3 08/28/2023 documented in this encounter Miscellaneous Notes * Telephone Encounter - Fay Dotson RN - 08/28/2023 1056 EST Noted * Telephone Encounter - Nivia Tinsley MD - 08/28/2023 1039 EST Sent * Telephone Encounter - Fay Dotson RN - 08/22/2023 1115 EST Date/Location of ED visit: 08/21/2023 Reason for ED visit: Confusion, unable to speak clearly Final Diagnosis: Episodic Confusion Medication Changes: None Symptom Improvement?: Yes- no persistent sx F/U Appointment Scheduled?: Not needed at this time. Caregiver Salome states that the patient is experiencing exzema breakouts on arms/legs. Areas aredry/itchy. Patient has experienced this in the past and used triamcinolone with good effect. They are hoping our office can send in a new script. documented in this encounter Plan of Treatment Upcoming Encounters Date Type Department Care Team (Late st Contact Info) Description 06/11/2024 12:45 EDT Office Visit [facility] Ophthalmology - [place] [address] [place] [address] Santiago Anthony MD [address] [place] [address] [address] [place] [address] 07/15/2024 10:45 EDT Office Visit [facility] [address] [place] [address] Gianfranco Flowers MD [address] [facility] [place] [phone] documented as of this encounter Visit Diagnoses Not on filedocumented in this encounter Discontinued Medications Medication Sig Discontinue Reason Start Date End Da te triamcinolone (KENALOG) 0.1 % cream Apply topically to affected area 2 times daily. For up to 2 weeks to rash on legs and neck. Do not apply to face, armpit or groin. Reorder 04/17/2022 08/28/2023 documented as of this encounter Care Teams Foreman/Project Manager Relationship Specialty Start Date End Date Nivia Tinsley MD [address] [place] [address] PCP - General Family Medicine - Primary Care 08/27/19 Zheng Tapia MD [address] [place] [address] [address] [place] [address] Internal Medicine - Primary Care 09/01/19 Shazia Burks MD [address] [place], [place] [address] Neurology 09/01/19 Tony Baron OD [address] [place] [address] Shirring Tender 09/01/19 Keira Paniagua MD [address] [place] [address] Cardiovascular Disease 09/06/20 Siva Perkins MD [address] [place] [address] Neurology 09/06/20 documented as of this encounter
--- OUTSIDE RECORDS SUMMARY | 2024-04-29 18:15 | XMS_ITS | Encounter Summary ---
Author Organization [facility] Address [address] [place] [address] Care Team Providers Care Toxicology Teacher Name Role Phone Nivia Tinsley MD Primary Care Provider [phone] Zheng Tapia MD Unavailable Shazia Burks MD Unavailable [phone] Tony Baron OD Unavailable [phone] Keira Paniagua MD Unavailable [phone] Siva Perkins MD Unavailable [phone] Reason for Visit * Reason Comments Immunizations Labs Only Encounter Details Date Type Department Care Team (Late st Contact Info) Description 08/30/2023 10:30 EST Nurse Only [facility] Integrative Family Medicine [address] [phone] Nurse, [facility] Immunization due (Primary Dx); B12 deficiency; Primary osteoarthritis of both hips Social History Tobacco Use Types Packs/Day Years [...] - Temperature - - Respiratory Rate 16 08/30/2023 1054 EST Oxygen Saturation - - Inhaled Oxygen [...] as needed for Pain. 60 Tablet 11 08/30/2023 11/22/2023 documented in this encounter Progress Notes * Marissa Gibbs RN - 08/30/2023 1030 EST Patient presents to the office for a Covid immunization(s) and venipuncture. Procedure Note: Labs drawn prior to B12 injection. B12 administered in right deltoid Venipuncture preformed by Marissa Gibbs RN Site Collected: Right Antecubital space Volume Collected: SST Tube Patient response: Number of attempts: 2, Patient tolerated procedure well , Dry pressure dressing applied and No evidence of bleeding or bruising at the site. Ordering Provider: Nivia Tinsley MD Patient tolerates procedure well and leaves the suite without complaint. Patient instructed to contact the office with any further questions or concerns. I was supervised by Yael Jason MD who was present and immediately available in the office suite. MARISSA GIBBS RN 08/30/2023 10:53 documented in this encounter Miscellaneous Notes * Result Encounter Note - Marissa Gibbs RN - 08/30/2023 1030 EST Patient aware- see TE for more info documented in this encounter Plan of Treatment Upcoming Encounters Date Type Department Care Team (Late st Contact Info) Description 06/11/2024 12:45 EDT Office Visit [facility] Ophthalmology - [place] [address] [place], [place] [address] Santiago Anthony MD [address] [facility], [address] [place] [address] 07/15/2024 10:45 EDT Office Visit [facility] [address] [place], [place] [phone] Gianfranco Flowers MD [address] [facility] [address] [place] [address] documented as of this encounter Procedures Procedure Name Priority Date/Time Associated Diagnosis Comments VITAMIN B12 Routine 08/30/2023 10:53 EST B12 deficiency documented in this encounter Results * VITAMIN B12 (08/30/2023 10:53 EST) Vitamin B12 552 211 - 911 pg/mL 08/30/2023 14:37 EST [facility] Blood VENOUS BLOOD / Unknown Venipuncture / Unknown 08/30/2023 10:53 EST 08/30/2023 10:53 EST Narrative [facility] - 08/30/2023 14:37 EST The results of this assay can be falsely elevated due to the consumption of Biotin. Nivia Tinsley MD CHEMISTRY & BLOOD G ORDERABLES [facility] [address] [place] [address] documented in this encounter Visit Diagnoses Diagnosis Immunization due- Primary Need for prophylactic vaccination and inoculation against unspecified single disease B12 deficiency Other B-complex deficiencies Primary osteoarthritis of both hips Primary localized osteoarthrosis, pelvic region and thigh documented in this encounter Administered Medications Inactive [...] mcg Left Deltoid documented in this encounter Discontinued Medications Medication Sig Discontinue Reason Start Date End Da te ibuprofen (MOTRIN) 400 mg tabletIndications:Primary osteoarthritis of both hips Take 1 Tablet by mouth 2 times daily as needed for Pain. Reorder 07/26/2023 08/30/2023 documented as of this encounter Orders Immunization/Injection Count Last Ordered Date First Ordered Date COVID-19 MRNA-LNP VA CCINE (MODERNA COVID-19) PF 0.5 ML (12 YRS+) 1 08/30/2023 documented in this encounter Care Teams Toxicology Teacher Relationship Specialty Start Date End Date Nivia Tinsley MD [address] [place] [address] PCP - General Family Medicine - Primary Care 08/27/19 Zheng Tapia MD [address] [place] [address] [address] [place] [phone] Internal Medicine - Primary Care 09/01/19 Shazia Burks MD [address] [place] [address] Neurology 09/01/19 Tony Baron, FRANCK [address] [place] [phone] Sales Engagement Executive 09/01/19 Keira Paniagua MD [address] [place] [phone] Cardiovascular Disease 09/06/20 Siva Perkins MD [address] [facility] [place] [address] Neurology 09/06/20 documented as of this encounter
--- OUTSIDE RECORDS SUMMARY | 2024-04-29 18:15 | XMS_ITS | Encounter Summary ---
Author Organization [facility] Address [address] [place] [address] Care Team Providers Care Chicken Boner Name Role Phone Nivia Tinsley MD Primary Care Provider [phone] Zheng Tapia MD Unavailable Shazia Burks MD Unavailable [phone] Tony Baron OD Unavailable [phone] Keira Paniagua MD Unavailable [phone] Siva Perkins MD Unavailable [phone] Encounter Details Date Type Department Care Team (Latest Contact Info) Description 08/21/2023 Travel Social History Tobacco Use Types Packs/Day [...] No 02/21/2022 documented as of this encounter Plan of Treatment Upcoming Encounters Date Type Department Care Team (Late st Contact Info) Description 06/11/2024 12:45 EDT Office Visit [facility] Ophthalmology - [place] [address] [place], [place] [phone] Santiago Anthony MD 111 [facility] [address] [place] [address] 07/15/2024 10:45 EDT Office Visit [facility] Cardiology Clinic [address] [place], [place] [phone] Gianfranco Flowers MD [address] [facility] [address] [place] [phone] documented as of this encounter Visit Diagnoses Not on filedocumented in this encounter Care Teams Chicken Boner Relationship Specialty Start Date End Date Nivia Tinsley MD [address] [place] [phone] PCP - General Family Medicine - Primary Care 08/27/19 Zheng Tapia MD [address] [place] [address] [address] [place] [address] Internal Medicine - Primary Care 09/01/19 Shazia Burks MD [address] [place], [place] [address] Neurology 09/01/19 Tony Baron OD [address] [place] [phone] Pantry Cook 09/01/19 Keira Paniagua MD [address] [place] [phone] Cardiovascular Disease 09/06/20 Siva Perkins MD [address] [place] [address] Neurology 09/06/20 documented as of this encounter
--- OUTSIDE RECORDS SUMMARY | 2024-04-29 18:16 | XMS_ITS | Encounter Summary ---
Author Organization [facility] Address [address] [place] [address] Care Team Providers Care Patient Biller Name Role Phone Nivia Tinsley MD Primary Care Provider Zheng Tapia MD Unavailable Shazia Burks MD Unavailable [phone] Tony Baron OD Unavailable [phone] Keira Paniagua MD Unavailable [phone] Siva Perkins MD Unavailable [phone] Reason for Visit * Reason Onset Date Comments Medication Management 07/30/2023 Encounter Details Date Type Department Care Team (Late st Contact Info) Description 07/30/2023 Telephone [facility] Integrative Family [address] [phone] [address] [phone] Medication Management Social History Tobacco Use Types [...] slept in a jail (including now)? No 01/31/2023 Interpersonal Safety Answer [...] Dispensed Refills Start Date End Da te aspirin chewable 81 mg tablet CHEW AND SWALLOW 1 TABLET BY MOUTH ONCE DAILY 30 Tablet 11 08/01/2023 meloxicam (MOBIC) 7.5 mg tabletIndications:Primary osteoarthritis of right knee Take 1 Tablet by mouth daily. Take with a meal and monitor for bleeding 30 Tablet 08/01/2023 08/15/2023 documented in this encounter Miscellaneous Notes * Telephone Encounter - Yaa Graham RN - 08/01/2023 1125 EDT Informed Ines of the meloxicam order and if not working then Aspirin is not in her bubble pack. Resent prescription. Advised Ines to monitor for any bleeding. * Telephone Encounter - Nivia Tinsley MD - 07/30/2023 1613 EDT Would not recommend taking both of them. I would recommend that she try the meloxicam for a week, and if that works better than ibuprofen stick with that. * Telephone Encounter - Claudia Vizcarra - 07/30/2023 1553 EDT Ines is wondering if pt is supposed to be taking meloxicam and Ibuprofen? Pt isn't sure and lookingfor clarification. Pt received meds on time with Blanca Alston, so if this is the case Ines wanted to make note of thatfor updates if necessary. documented in this encounter Plan of Treatment Upcoming Encounters Date Type Department Care Team (Late st Contact Info) Description 06/11/2024 12:45 EDT Office Visit [facility] Ophthalmology - [place] [address] [place], [place] [phone] Santiago Anthony MD 111 [facility], [facility] [address] [place] [address] 07/15/2024 10:45 EDT Office Visit [facility] Cardiology Clinic [address] [place] [address] Gianfranco Flowers MD [address] [facility] [address] [place] [address] documented as of this encounter Visit Diagnoses Diagnosis Primary osteoarthritis of right knee- Primary Primary localized osteoarthrosis, lower leg documented in this encounter Discontinued Medications Medication Sig Discontinue Reason Start Date End Da te meloxicam (MOBIC) 7.5 mg tabletIndications:Primary osteoarthritis of right knee Take 1 Tablet by mouth daily. Take with a meal and monitor for bleeding Reorder 08/03/2022 08/01/2023 aspirin chewable 81 mg tablet CHEW AND SWALLOW 1 TABLET BY MOUTH ONCE DAILY Reorder 10/30/2022 08/01/2023 documented as of this encounter Care Teams Patient Biller Relationship Specialty Start Date End Date Nivia Tinsley MD [address] [place] [address] PCP - General Family Medicine - Primary Care 08/27/19 Zheng Tapia MD [address] [place] [address] [address] [place] [address] Internal Medicine - Primary Care 09/01/19 Shazia Burks MD [address] [place], [place] [address] Neurology 09/01/19 Tony Baron OD [address] [place] [phone] [place] 09/01/19 Keira Paniagua MD [address] [place] [address] [phone] Cardiovascular Disease 09/06/20 Siva Perkins MD [address] [facility] [place] [address] Neurology 09/06/20 documented as of this encounter
--- OUTSIDE RECORDS SUMMARY | 2024-04-29 18:16 | XMS_ITS | Encounter Summary ---
Author Organization [facility] Address [address] [place] [address] Care Team Providers Care Nib Finisher Name Role Phone Nivia Tinsley MD Primary Care Provider [phone] Zheng Tapia MD Unavailable Shazia Burks MD Unavailable [phone] Tony Baron OD Unavailable [phone] Keira Paniagua MD Unavailable [phone] Siva Perkins MD Unavailable [phone] Reason for Visit * Reason Comments Injections B12 Encounter Details Date Type Department Care Team (Late st Contact Info) Description 08/02/2023 10:30 EDT Nurse Only [facility] Integrative Family Medicine [address] [phone] Nurse, [facility] B12 deficiency (Primary Dx) Social History Tobacco Use Types [...] slept in a custodial (including now)? No 01/31/2023 Interpersonal Safety Answer [...] - Temperature - - Respiratory Rate 16 08/02/2023 1031 EDT Oxygen Saturation - - Inhaled Oxygen [...] Progress Notes * Marissa Gibbs RN - 08/02/2023 1030 EDT Patient presents to the office for a B12 injection . Procedure Note: Injection administered in R deltoid Patient has been scheduled for two more appointments. The patient's caregiver is going to schedule the last injection/lab draw appointment at a future appointment as they needed to check with their personal schedules. Patient tolerates procedure well and leaves the suite without complaint. Patient instructed to contact the office with any further questions or concerns. I was supervised by Nivia Tinsley MD who was present and immediately available in the office suite. MARISSA GIBBS RN 08/02/2023 10:00 documented in this encounter Plan of Treatment Upcoming Encounters Date Type Department Care Team (Late st Contact Info) Description 06/11/2024 12:45 EDT Office Visit [facility] Ophthalmology [facility] [address] [place] [address] Santiago Anthony MD [address] [place] [address], [address] [place] [address] 07/15/2024 10:45 EDT Office Visit [facility] Card[facility] Clinic [address] [place] [address] Gianfranco Flowers MD [address] [facility] [address] [place] [phone] documented as of this encounter Visit Diagnoses Diagnosis B12 deficiency- Primary Other B-complex deficiencies documented in this encounter Administered Medications Inactive [...] Deltoid documented in this encounter Care Teams Nib Finisher Relationship Specialty Start Date End Date Nivia Tinsley MD [address] [place] [address] PCP - General Family Medicine - Primary Care 08/27/19 hZeng Tapia MD [address] [place] [address] [address] [place] [address] Internal Medicine - Primary Care 09/01/19 Shazia Burks MD [address] [place] [address] Neurology 09/01/19 Tony Baron, FRANCK [address] [place] [phone] Cargo And Container Inspector 09/01/19 Keira Paniagua MD [address] [place] [address] [address] [place] [address] Cardiovascular Disease 09/06/20 Siva Perkins MD [address] [facility] [place] [address] Neurology 09/06/20 documented as of this encounter
--- OUTSIDE RECORDS SUMMARY | 2024-04-29 18:16 | XMS_ITS | Encounter Summary ---
Author Organization [facility] Address [address] [place] [address] Care Team Providers Care Tool Room Machinist Name Role Phone Nivia Tinsley MD Primary Care Provider Zheng Tapia MD Unavailable Shazia Burks MD Unavailable [phone] Tony Baron OD Unavailable [phone] Keira Paniagua MD Unavailable [phone] Siva Perkins MD Unavailable [phone] Reason for Visit * Reason Comments Follow-up FU bloodworkConcerns : Prescription for pads+2 briefs daily Other Encounter Details Date Type Department Care Team (Latest Contact Info) Description 07/26/2023 10:00 EDT Office Visit [facility] Integrative Family Medicine [facility] [address] [place] [address] Nivia Tinsley MD [address] [place] [address] Need for vaccination (Primary Dx); Other urinary incontinence; Primary osteoarthritis of both hips; Other fatigue; Acquired hypothyroidism; Vitamin D deficiency Social History Tobacco Use Types Packs/Day Years [...] Sign Reading Time Taken Comments Blood Pressure 138/68 07/26/2023 0949 EDT Pulse 88 07/26/2023 0949 EDT Temperature - - Respiratory Rate 16 07/26/2023 0949 EDT Oxygen Saturation 97% 07/26/2023 0949 EDT Inhaled Oxygen Concentration - - Weight - - Height 165.1 cm (5' 5) 07/26/2023 0949 EDT Body Mass Index - - documented in [...] for Pain. 60 Tablet 11 07/26/2023 08/30/2023 documented in this encounter Progress Notes * Nivia Tinsley MD - 07/26/2023 1000 EDT Images from the original note were not included. [facility] Primary Care Subjective: Chief Complaint(s): Follow-up (FU bloodwork/Concerns: Prescription for pads+2 briefs daily) and Other HPI: ??83-year-old woman with CAD??and NSTEMI??status post LAD stent placement in November 2021, heart failure with preserved ejection fraction,??visual impairment, prediabetes,??GERD,??hypothyroidism,??hypertension,??hyperlipidemia, and??a??CVA- thalamic infarct??who has been having more hip and shoulder pain. She has been having some pain with transferring. She is predominantly in a wheelchair.She did try some extra strength Tylenol 2 tablets twice a day, but it upset her stomach. 1 tablet twice a day was not sufficient for her pain. She is wondering about taking some ibuprofen to help with the pain. She also does have incontinence and uses pull-ups and pads. She needs prescriptions for both. She has a history of diabetes, but it is currently diet controlled. Her A1c was 6.3. She recently had her cholesterol done. She is seeing cardiology, and she is on 2 medications for cholesterol.Her microalbumin was slightly elevated, however her creatinine was normal. She has been more tired recently. She is not sure why. She does think that it is possible that getting up at night to pee and then not being able to sleep afterward is contributing to her fatigue. She has not had any labs for her thyroid in over a year. She is currently on levothyroxine. I have reviewed patient's tobacco history: reports that she has never smoked. She has never used smokeless tobacco. I have reviewed current problem list and current medications. ROS: Review of Systems Genitourinary: Incontinence Neurological: Positive for weakness. Objective: Examination: Vitals: BP 138/68 Pulse 88 Resp 16 Ht 165.1 cm (65) SpO2 97% BMI 25.29 kg/m?? Body mass index is25.29 kg/m??. Physical Exam Constitutional: Appearance: Normal appearance. She is well-developed. HENT: Head: Normocephalic and atraumatic. Eyes: Conjunctiva/sclera: Conjunctivae normal. Pulmonary: Effort: Pulmonary effort is normal. Musculoskeletal: Cervical back: Neck supple. Skin: General: Skin is dry. Neurological: General: No focal deficit present. Mental Status: She is alert and oriented to person, place, and time. Mental status is at baseline. Motor: Weakness (In WC) present. Psychiatric: Mood and Affect: Mood normal. Behavior: Behavior normal. Thought Content: Thought content normal. Judgment: Judgment normal. Data reviewed with patient (past results): Results for orders placed or performed in visit on 07/16/23 LIPID PROFILE (INCLUDES CHOLESTEROL, TRIGLYCERIDES, HDL, LDL) Result Value Ref Range Cholesterol 207 (H) <200 mg/dL HDL 32 (L) >=50 mg/dl LDL, Calculated Triglyceride 644 (H) <=150 mg/dL Chol/HDL Ratio 6.5 See Note Non HDL Cholesterol 175 (H) <160 mg/dL COMPREHENSIVE METABOLIC PANEL (CMP) Result Value Ref Range Sodium 134 (L) 136 - 145 mmol/L Potassium 4.4 3.5 - 5.0 mmol/L Chloride 99 96 - 110 mmol/L CO2 Total 25 22 - 32 mmol/L Glucose 129 (H) 70 - 99 mg/dl BUN 16 10 - 26 mg/dL Creatinine 0.75 0.52 - 1.04 mg/dL eGFR 78 >60 mL/min/1.73m2 Total Protein 7.1 6.3 - 8.2 g/dL Albumin 4.3 3.4 - 4.9 g/dL Alkaline Phosphatase 106 38 - 126 U/L AST 20 15 - 46 U/L ALT 24 <35 U/L Bilirubin, Total 0.9 <1.4 mg/dL Calcium 9.4 8.5 - 10.5 mg/dL Albumin/Globulin Ratio 1.5 1.0 - 2.5 g/dL Anion Gap 10 5 - 14 mmol/L LIPOPROTEIN A, SERUM Result Value Ref Range Lipoprotein A, S 11 <75 nmol/L URINE [id number] RATIO (ACR) Result Value Ref Range Albumin, Urine 9.3 See Note mg/dL Creatinine, Urine 62.5 See Note mg/dL Lab Urine Albumin to Creatinine Ratio 149 (H) <30 ??g/mg Creatinine LDL, DIRECT Result Value Ref Range LDL, Direct 69 <160 mg/dL Assessment & Plan: Concetta was seen today for follow-up and other. Diagnoses and all orders for this visit: Need for vaccination - INFLUENZA VACCINE QUAD HIGH DOSE (FLUZONE HIGH DOSE) PF 0.7 ML IM (65 YRS+) Other urinary incontinence - GENERIC DME ORDER - GENERIC DME ORDER Primary osteoarthritis of both hips Comments: We will try ibuprofen, but did warn her this could upset her stomach as well. She will take this with food only. Orders: - ibuprofen (MOTRIN) 400 mg tablet; Take 1 Tablet by mouth 2 times daily as needed for Pain. Other fatigue Comments: We will rule out anemia and vitamin B12 deficiency Orders: - TSH - COMPLETE BLOOD COUNT AND DIFFERENTIAL - VITAMIN B12 Acquired hypothyroidism Comments: We will check her TSH to be sure that it is in the normal range. She will continue her thyroid supplementation. Orders: - TSH Vitamin D deficiency - VITAMIN D (25,OH) Return in about 4 months (around 11/26/2023) for F/U fatigue, hypothyroidism, OA. I spent a total of 30 minutes on the date of this encounter meeting with the patient and reviewing documentation/coordinating care as described in the above note. No procedures were performed at the time of the visit. Nivia Tinsley MD, FAAFP documented in this encounter Miscellaneous Notes * Result Encounter Note - Nivia Tinsley MD - 07/26/2023 1000 EDT The results are abnormal. Vitamin d is low. Let's increase her vitamin d to 2000 IU daily, and recheck vitamin D in 3 months. Ok to send a new rx for 90 days and order vitamin d recheck. * Result Encounter Note - Nivia Tinsley MD - 07/26/2023 1000 EDT Her vitamin B12 is low. Let's treat with Vitamin B12 injections weekly for one monht, ten recheck vitamin B12. documented in this encounter Plan of Treatment Upcoming Encounters Date Type Department Care Team (Late st Contact Info) Description 06/11/2024 12:45 EDT Office Visit [facility] Ophthalmology [facility] [address] [place] [address] Santiago Anthony MD [address] [place] [address], [address] [place] [phone] 07/15/2024 10:45 EDT Office Visit [facility] Cardiology Clinic [address] [place], [place] [address] Gianfranco Flowers MD 130 [facility] [address] [place] [address] documented as of this encounter Procedures Procedure Name Priority Date/Time Associated Diagnosis Comments VITAMIN D (25,OH) Routine 07/26/2023 10: 33 EDT Vitamin D deficiency COMPLETE BLOOD COUNT AND DIFFERENTIAL Routine 07/26/2023 10:33 EDT Other fatigue TSH Routine 07/26/2023 10:33 EDT Other fatigue Acquired hypothyroidism VITAMIN B12 Routine 07/26/2023 10:33 EDT Other fatigue documented in this encounter Results * (ABNORMAL) VITAMIN D (25,OH) (07/26/2023 10:33 EDT) 25OH Vitamin D Tot 27(L) 30 - 100 ng/mL 07/26/2023 14:30 EDT [facility] Comment: Vitamin D 25,OH Interpretive Ranges: Deficiency: ? <20.0 ng/mL Insufficiency: ?? 20.0 - 29.9 ng/mL Sufficiency: ? 30.0 - 100.0 ng/mL Toxicity: ? >100.0 ng/mL Blood VENOUS BLOOD / Unknown Venipuncture / Unknown 07/26/2023 10:33 EDT 07/26/2023 10:33 EDT Nivia Tinsley MD CHEMISTRY & BLOOD G ORDERABLES [facility] [address] [place] [address] * VITAMIN B12 (07/26/2023 10:33 EDT) [facility] Vitamin B12 268 211 - 911 pg/mL 07/26/2023 15:03 EDT [facility] Blood VENOUS BLOOD / Unknown Venipuncture / Unknown 07/26/2023 10:33 EDT 07/26/2023 10:33 EDT Narrative [facility] - 07/26/2023 15:03 EDT The results of this assay can be falsely elevated due to the consumption of Biotin. Nivia Tinsley MD CHEMISTRY & BLOOD G ORDERABLES [facility] [address] [place] [address] * (ABNORMAL) COMPLETE BLOOD COUNT AND DIFFERENTIAL (07/26/2023 10:33 EDT) [facility] WBC 6.89 4.00 - 12.40 K/cmm 07/26/2023 13:50 [facility] RBC 4.33 3.86 - 5.04 M/cmm 07/26/2023 13:50 [facility] Hemoglobin 13.9 11.6 - 15.2 g/dL 07/26/2023 13:50 [facility] HCT 41.4 34.9 - 44.4 % 07/26/2023 13:50 [facility] MCV 96 81 - 98 fL 07/26/2023 13:50 [facility] MCH 32.1 26.7 - 33.3 pg 07/26/2023 13:50 [facility] MCHC 33.6 32.1 - 35.9 g/dL 07/26/2023 13:50 [facility] RDW-CV 13.3 <14.7 % 07/26/2023 13:50 [facility] RDW-SD 46.7 <50.4 fl 07/26/2023 13:50 [facility] PLT 228 141 - 377 K/cmm 07/26/2023 13:50 [facility] MPV 10.5 9.5 - 12.7 fL 07/26/2023 13:50 [facility] % Neutrophils 71.8 % 07/26/2023 13:50 [facility] % Lymphocytes 13.6 % 07/26/2023 13:50 [facility] % Monocytes 8.9 % 07/26/2023 13:50 [facility] % Eosinophils 4.4 % 07/26/2023 13:50 [facility] % Basophils 0.7 % 07/26/2023 13:50 [facility] % Immature Grans 0.6 % 07/26/20 13:50 [facility] Absolute Neutrophils 4.95 2.20 - 8.85 K/cmm 07/26/2023 13:50 [facility] Absolute Lymphocytes 0.94(L) 1.09 - 3.30 K/cmm 07/26/2023 13:50 [facility] Absolute Monocytes 0.61 0.10 - 0.80 K/cmm 07/26/2023 13:50 [facility] Absolute Eosinophils 0.30 0.03 - 0.61 K/cmm 07/26/2023 13:50 [facility] ABS Basophils 0.05 0.01 - 0.11 K/cmm 07/26/2023 13:50 [facility] Absolute Immature Grans 0.04 0.00 - 0.06 K/cmm 07/26/2023 13:50 [facility] Type of Differential: Auto 07/26/2023 13:50 [facility] Blood VENOUS BLOOD / Unknown Venipuncture / Unknown 07/26/2023 10:33 EDT 07/26/2023 10:33 EDT Nivia Tinsley MD PACKAGES & DNA PROB E ORDERABLES [facility] [address] [place] [address] * TSH (07/26/2023 10:33 EDT) TSH 2.48 0.47 - 4.68 mIU/L 07/26/2023 14:44 EDT [facility] Blood VENOUS BLOOD / Unknown Venipuncture / Unknown 07/26/2023 10:33 EDT 07/26/2023 10:33 EDT Narrative [facility] - 07/26/2023 14:44 EDT The results of this assay can be falsely lowered due to the consumption of Biotin. Nivia Tinsley MD CHEMISTRY & BLOOD G ORDERABLES [facility] [address] [place] [address] documented in this encounter Visit Diagnoses Diagnosis Need for vaccination- Primary Need for prophylactic vaccination and inoculation against unspecified single disease Other urinary incontinence Primary osteoarthritis of both hips Primary localized osteoarthrosis, pelvic region and thigh Other fatigue Acquired hypothyroidism Unspecified hypothyroidism Vitamin D deficiency Unspecified vitamin D deficiency documented in this encounter Discontinued Medications Medication Sig Discontinue Reason Start Date End Da te zoster vaccine recombinant, PF, (SHINGRIX) IM Injection - vialIndications:Need for vaccination Inject 0.5 mL into the muscle Once for 1 dose. Repeat in 2 months 01/31/2023 07/26/2023 documented as of this encounter Orders Immunization/Injection Count Last Ordered Date First Ordered Date INFLUENZA VACCINE QUAD HIGH DOSE (FLUZONE HIGH DOSE) PF 0.7 ML IM (65 YRS+) 1 07/26/2023 Equipment Count Last Ordered Date First Orde red Date GENERIC DME ORDER 2 07/26/2023 documented in this encounter Care Teams Tool Room Machinist Relationship Specialty Start Date End Date Nivia Tinsley MD [address] [place] [phone] PCP - General Family Medicine - Primary Care 08/27/19 Zheng Tapia MD [address] [place] [address] [address] [place] [phone] Internal Medicine - Primary Care 09/01/19 Shazia Burks MD [address] [place] [address] Neurology 09/01/19 Tony Baron OD [address] [place] [phone] Outboard Technician 09/01/19 Keira Paniagua MD [address] [place] [phone] Cardiovascular Disease 09/06/20 Siva Perkins MD [address] [facility] [place] [phone] Neurology 09/06/20 documented as of this encounter
--- OUTSIDE RECORDS SUMMARY | 2024-04-29 18:16 | XMS_ITS | Encounter Summary ---
Author Organization [facility] Address [address] [place] [address] Care Team Providers Care Property Handler Name Role Phone Nivia Tinsley MD Primary Care Provider [phone] Zheng Tapia MD Unavailable Shazia Burks MD Unavailable [phone] Tony Baron OD Unavailable [phone] Keira Paniagua MD Unavailable [phone] Siva Perkins MD Unavailable [phone] Reason for Visit * Reason Onset Date Comments Results 07/26/2023 Encounter Details Date Type Department Care Team (Late st Contact Info) Description 07/26/2023 Telephone [facility] Integrative Family Medicine [address] [phone] Phil Vickers, RN Results Social History Tobacco Use Types [...] place to sleep or slept in a long-term (including now)? No 01/31/2023 Interpersonal Safety Answer [...] encounter Miscellaneous Notes * Telephone Encounter - Phil Vickers RN - 07/27/2023 1036 EDT Orders placed per PCP. Patient scheduled through caregiver per request. * Telephone Encounter - Phil Vickers RN - 07/26/2023 1521 EDT Patient reports she relies on her caregiver for transportation, and she will nto be back to the patient's house until tomorrow morning at 0900. Will call patient back tomorrow after 0900 to arrange an appointment. * Telephone Encounter - Phil Vickers RN - 07/26/2023 1520 EDT ----- Message from Nivia Tinsley MD sent at 07/26/2023 15:04 EDT ----- Her vitamin B12 is low. Let's treat with Vitamin B12 injections weekly for one monht, ten recheck vitamin B12. documented in this encounter Plan of Treatment Upcoming Encounters Date Type Department Care Team (Late st Contact Info) Description 06/11/2024 12:45 EDT Office Visit [facility] Ophthalmology - [place] [address] [place] [address] Santiago Anthony MD 111 [facility] [address] [place] [address] 07/15/2024 10:45 EDT Office Visit [facility] Cardiology Clinic [address] [place], [place] [phone] Gianfranco Flowers MD 130 [facility] [address] [place] [address] documented as of this encounter Results * VITAMIN B12 (08/30/2023 10:53 EST) Vitamin B12 552 211 - 911 pg/mL 08/30/2023 14:37 EST [facility] Blood VENOUS BLOOD / Unknown Venipuncture / Unknown 08/30/2023 10:53 EST 08/30/2023 10:53 EST Narrative [facility] - 08/30/2023 14:37 EST The results of this assay can be falsely elevated due to the consumption of Biotin. Nviia Tinsley MD CHEMISTRY & BLOOD G ORDERABLES [facility] [address] [place] [address] documented in this encounter Visit Diagnoses Diagnosis B12 deficiency- Primary Other B-complex deficiencies documented in this encounter Orders Medications Ordered That Anant ht Not Have Been Administered Count Last Ordered Date First Ordered Date cyanocobalamin (VITAMIN B12) injection 1,000 mcg 1 07/27/2023 documented in this encounter Care Teams Property Handler Relationship Specialty Start Date End Date Nivia Tinsley MD [address] [place] [phone] PCP - General Family Medicine - Primary Care 08/27/19 Zheng Tapia MD [address] [place] [address] [address] [place] [phone] Internal Medicine - Primary Care 09/01/19 Shazia Burks MD [address] [place] [address] Neurology 09/01/19 Tony Baron, FRANCK [address] [place] [phone] Data Entry Manager 09/01/19 Keira Paniagua MD [address] [place] [address] [address] [place] [phone] Cardiovascular Disease 09/06/20 Siva Perkins MD [address] [facility] [place] [phone] Neurology 09/06/20 documented as of this encounter
--- OUTSIDE RECORDS SUMMARY | 2024-04-29 18:16 | XMS_ITS | Encounter Summary ---
Author Organization [facility] Address [address] [place] [address] Care Team Providers Care Production Line Mechanic Name Role Phone Nivia Tinsley MD Primary Care Provider Zheng Tapia MD Unavailable Shazia Burks MD Unavailable [phone] Tony Baron OD Unavailable [phone] Keira Paniagua MD Unavailable [phone] Siva Perkins MD Unavailable Encounter Details Date Type Department Care Team (Latest Contact Info) Description 07/19/2023 12:55 EDT - 07/19/2023 23:59 EDT Hospital Encounter [facility] [place] [address] [address] Discharge Disposition: Home or Self Care Social [...] slept in a fpc (including now)? No 01/31/2023 Interpersonal Safety Answer [...] No 02/21/2022 documented as of this encounter Medications at Time of Discharge Medication Sig Dispensed Refills Start Date End Date cholecalciferol, Vitamin D3, 25 mcg (1,000 unit) tablet Take 1 Tablet by mouth daily. 04/28/2022 hypromellose (ISOPTO TEARS) 0.5 % ophthalmic solution Place 1 Drop into both eyes 3 times daily. medical supply, miscellaneous (WALKER [employer] ACCESSORY MISC) with seat, basket under the seat and breaks as directed dx: Abnormal gait and legally blind daily 07/13/2017 kbqwydwg-mzxpuppnp-zxatg ethasone (MAXITROL) 3.5mg/mL-10,000 unit/mL-0.1 % ophthalmic suspension 01/19/2023 nitroglycerin (NITROSTAT) 0.4 mg SL tabletIndications:NSTEMI (non-ST elevated myocardial infarction) ([facility]) Place 1 Tablet under the tongue every 5 minutes as needed for Chest Pain. 30 Tablet 03/14/2022 acetaminophen 325 mg capsule Take by mouth 2 times daily. 11/22/2023 aspirin chewable 81 mg tablet CHEW AND SWALLOW 1 TABLET BY MOUTH ONCE DAILY 30 Tablet 11 10/30/2022 08/01/2023 atorvastatin (LIPITOR) 40 mg tablet Take 1 Tablet by mouth at bedtime. 30 Tablet 11 12/01/2022 11/14/2023 carvediloL (COREG) 3.125 mg tablet Take 1 Tablet by mouth 2 times daily with breakfast and dinner. 180 Tablet 3 11/13/2022 10/11/2023 ezetimibe (ZETIA) 10 mg tablet Take 1 Tablet by mouth daily. 90 Tablet 1 07/16/2023 12/14/2023 levothyroxine (SYNTHROID) 100 mcg tabletIndications:Other specified hypothyroidism Take 1 Tablet by mouth daily. 30 Tablet 11/22/2022 10/09/2023 losartan (COZAAR) 100 mg tabletIndications:Essent ial hypertension 1 tab(s) orally once a day 30 Tablet 12/01/2022 11/06/2023 meloxicam (MOBIC) 7.5 mg tabletIndications:Primar y osteoarthritis of right knee Take 1 Tablet by mouth daily. Take with a meal and monitor for bleeding 30 Tablet 08/03/2022 08/01/2023 triamcinolone (KENALOG) 0.1 % cream Apply topically to affected area 2 times daily. For up to 2 weeks to rash on legs and neck. Do not apply to face, armpit or groin. 60 g 3 04/17/2022 08/28/2023 vit A,C & G-ncbadd-ztinzqev (OCUVITE) 300 mcg-200 mg-27 mg-2 mg tablet Take 1 tab by mouth daily 30 Tablet 11/16/2022 10/16/2023 zoster vaccine recombinant, PF, (SHINGRIX) IM Injection - vialIndications:Need for vaccination Inject 0.5 mL into the muscle Once for 1 dose. Repeat in 2 months 1 Each 1 01/31/2023 07/26/2023 documented as of this encounter Discharge Disposition Disposition Code Departure Means Destination Home or Self Care documented in this encounter Plan of Treatment Upcoming Encounters Date Type Department Care Team (Late st Contact Info) Description 06/11/2024 12:45 EDT Office Visit [facility] Ophthalmology - [place] [address] [place], [place] [phone] Santiago Anthony MD [address] [place] [address], [address] [place] [address] 07/15/2024 10:45 EDT Office Visit [facility] [address] [place], [place] [address] Gianfranco Flowers MD [address] [facility] [address] [place] [address] documented as of this encounter Visit Diagnoses Not on filedocumented in this encounter Care Teams Production Line Mechanic Relationship Specialty Start Date End Date Nivia Tinsley MD [address] [place] [address] PCP - General Family Medicine - Primary Care 08/27/19 Zheng Tapia MD [address] [place] [address] 7 [place] [address] Internal Medicine - Primary Care 09/01/19 Shazia Burks MD [address] [place] [address] Neurology 09/01/19 Tony Baron OD [address] [place] [address] Desktop Support Manager 09/01/19 Keira Paniagua MD [address] [place] [address] 21 [place] [address] Cardiovascular Disease 09/06/20 Siva Perkins MD [address] [place] [phone] Neurology 09/06/20 documented as of this encounter
--- OUTSIDE RECORDS SUMMARY | 2024-04-29 18:16 | XMS_ITS | Encounter Summary ---
Author Organization [facility] Address [address] [place] [address] Care Team Providers Care Mold Washer Name Role Phone Nivia Tinsley MD Primary Care Provider [phone] Zheng Tapia MD Unavailable Shazia Burks MD Unavailable [phone] Tony Baron OD Unavailable [phone] Keira Paniagua MD Unavailable [phone] Siva Perkins MD Unavailable Encounter Details Date Type Department Care Team (Late st Contact Info) Description 07/16/2023 Orders Only [facility] [address] [place] [address] Kirsten Rachel RN Social History Tobacco Use Types Packs/Day Years [...] mouth daily. 90 Tablet 1 07/16/2023 12/14/2023 documented in this encounter Progress Notes * Kirsten Rachel RN - 07/16/2023 1446 EDT Images from the original note were not included. Gianfranco Flowers MD P [facility] Cardiology Nurse Abnormal, please contact the patient to tell her about the results and the following changes in therapy. Non-HDL 1175, goal < 100. Ascertain that she is taking her Lipitor as prescribed. Add Zetia 10 mg daily to get non-HLD closerto goal. * Kirsten Rachel RN - 07/16/2023 1446 EDT Spoke with patient and gave her instructions. She is concerned regarding the cost of the medication. Call placed to [facility] [place] and they will check pricing after medication order placed. documented in this encounter Plan of Treatment Upcoming Encounters Date Type Department Care Team (Late st Contact Info) Description 06/11/2024 12:45 EDT Office Visit [facility] Ophthalmology [facility] [address] [place] [address] Santiago Anthony MD [address] [place] [address], [address] [place] [address] 07/15/2024 10:[address] [facility] [address] [place] [address] iGanfranco Flowers MD [address] [place] [phone] documented as of this encounter Visit Diagnoses Not on filedocumented in this encounter Care Teams Mold Washer Relationship Specialty Start Date End Date Nivia Tinsley MD [address] [place] [address] PCP - General Family Medicine - Primary Care 08/27/19 Zheng Tapia MD [address] [place] [address] Internal Medicine - Primary Care 09/01/19 Shazia Burks MD [address] [place] [address] Neurology 09/01/19 Tony Baron OD [address] [place] [phone] Cdl Program Coordinator 09/01/19 Keira Paniagua MD [address] [place] [address] [address] [place] [address] Cardiovascular Disease 09/06/20 Siva Perkins MD [address] [place] [phone] Neurology 09/06/20 documented as of this encounter
--- OUTSIDE RECORDS SUMMARY | 2024-04-29 18:17 | XMS_ITS | Encounter Summary ---
Author Organization [facility] Address [address] [place] [address] Care Team Providers Care Java Developer With Security Clearance Name Role Phone Nivia Tinsley MD Primary Care Provider Zheng Tapia MD Unavailable Shazia Burks MD Unavailable [phone] Tony Baron OD Unavailable [phone] Keira Paniagua MD Unavailable [phone] Siva Perkins MD Unavailable [phone] Reason for Visit * Reason Comments Eye Problem AMD follow up Encounter Details Date Type Department Care Team (Late st Contact Info) Description 02/07/2023 10:15 EDT Office Visit [facility] Ophthalmology [facility] [address] [place], [place] [phone] Santiago Anthony MD [address] [facility], [facility] 5 [place] [address] Social History Tobacco Use Types [...] 10:23 EDT Sexual Orientation Not on file COVID-19 Exposure Response Date Recorded In the last 10 days, have yo u been in contact with someone who was confirmed or suspected to have Coronavirus/COVID-19? No / Unsure 01/31/2023 11:05 EDT documented as of this encounter Functional Status [...] Progress Notes * Santiago Anthony MD - 02/07/2023 1015 EDT Chief Complaint Patient presents with ??? Eye Problem AMD follow up Comments Eye Problem Additional comments: AMD follow up HPI Location: Left eye Pain: 0 - No pain Quality: Severity: Moderate Duration: Months Timing: Lasts: Context: Wet AMD, left eye. s/p Eylea, left eye (07/12/22) Modifying factors: VA stable- no eye pain. Associated Signs & Symptoms: Visual Fluctuations: Attestation: Base Eye Exam Visual Acuity (Snellen - Linear) Right Left Dist cc 20/400 20/800 Correction: Glasses Tonometry (Applanation, 10:29) Right Left Pressure 21 19 Pupils Pupils Right PERRL Left PERRL Dilation Both eyes: Phenylephrine 2.5%, Tropicamide 1% @ 10:29 Slit Lamp and Fundus Exam Slit Lamp Exam Right Left Iris pale pale Fundus Exam Right Left Macula RPE changes no heme or fluid RPE changes no heme or fluid Periphery pale fundus pale fundus All five layers of the cornea are normal unless otherwise specified. Please refer to large retinal drawing. OCT, Retina - OU - Both Eyes Right Eye Quality was poor. Scan locations included subfoveal. Progression has been stable. Findings include (Irregular contour ). Left Eye Quality was poor. Scan locations included subfoveal. Progression has worsened. Findings include (IRedema ). IMPRESSION: 1. Exudative age-related macular degeneration of left eye, unspecified stage (HCC) OCT, RETINA - OU- BOTH EYES PLAN: Wet Macular Degeneration left eye Increase edema on OCT Hx of Eylea left eye 07/12/22 Options: Observe and return in 5 wks vs eylea injection today RBA&C discussed Pt chooses to return Will observe and have pt return in 5 wks to re-evaluate Pt agrees Return in about 5 weeks (around 03/14/2023), or OCT and ?eylea, for cancel 03/28, 9 wks . I have reviewed the patient's past medical, family, social and surgical history. I have also reviewed the patient's medications, allergies, and problem list. I performed my own HPI and have reviewed the tech's ROS as well. I personally completed this exam myself. Santiago Anthony MD I am scribing for Dr. Santiago Anthony MD, while he is personally performing the service. Molly Martinez, LESA (Scribe) documented in this encounter Plan of Treatment Upcoming Encounters Date Type Department Care Team (Late st Contact Info) Description 06/11/2024 12:45 EDT Office Visit [facility] Ophthalmology - [address] [address] Santiago Anthony MD [address] [place] [address], [address] [place] [address] 07/15/2024 10:45 EDT Office Visit [facility] Cardiology Clinic [address] [place] [address] Gianfranco Flowers MD 130 [facility] [address] [place] [address] documented as of this encounter Procedures Procedure Name Priority Date/Time Associated Diagnosis Comments OCT, RETINA - OU - BOTH EYES Routine 02/07/2023 10:44 EDT Exudative age-related macular degeneration of left eye, unspecified stage ([facility]) documented in this encounter Results * OCT, RETINA - OU - BOTH EYES (02/07/2023 10:44 EDT) Narrative [facility] OPHTHALMOLOGY - 02/08/2023 7:50 EDT Right Eye Quality was poor. Scan locations included subfoveal. Progression has been stable. Findings include (Irregular contour ). Left Eye Quality was poor. Scan locations included subfoveal. Progression has worsened. Findings include (IR edema ). Santiago Anthony MD OPHTH TOMOGRAPHY [facility] OPHTHALMOLOGY documented in this encounter Visit Diagnoses Diagnosis Exudative age-related macular degeneration of left eye, unspecified stage ([facility])- Primary documented in this encounter Eye Exam Visual Acuity (Snellen - Linear) Right eye Left eye Dist cc 20/400 20/800 Correction: Glasses Tonometry (Applanation, 10:29) Right eye Left eye Pressure 21 19 Pupils Pupils Right eye PERRL Left eye PERRL Dilation Both eyes: Phenylephrine 2.5 %, Tropicamide 1% @ 10:29 Slit Lamp Exam Right eye Left eye Iris pale pale Fundus Exam Right eye Left eye Macula RPE changes no heme or fluid RPE changes no heme or fluid Periphery pale fundus pale fundus Care Teams Java Developer With Security Clearance Relationship Specialty Start Date End Date Nivia Tinsley MD [address] [place] [phone] PCP - General Family Medicine - Primary Care 08/27/19 Zheng Tapia MD [address] [place] [address] [address] [place] [phone] Internal Medicine - Primary Care 09/01/19 Shazia Burks MD [address] [place] [address] [place] [address] Neurology 09/01/19 Tony Baron OD [address] [place] [phone] Digital Sales Representative 09/01/19 Keira Paniagua MD [address] [place] [phone] Cardiovascular Disease 09/06/20 Siva Perkins MD [address] [facility] [place] [address] Neurology 09/06/20 documented as of this encounter
--- OUTSIDE RECORDS SUMMARY | 2024-04-29 18:17 | XMS_ITS | Encounter Summary ---
Author Organization [facility] Address [address] [place] [address] Care Team Providers Care Fish Hatchery Laborer Name Role Phone Nivia Tinsley MD Primary Care Provider [phone] Zheng Tapia MD Unavailable Shazia Burks MD Unavailable [phone] Tony Baron OD Unavailable [phone] Keira Paniagua MD Unavailable [phone] Siva Perkins MD Unavailable [phone] Reason for Visit * Reason Comments Coronary Artery Disease Encounter Details Date Type Department Care Team (Late st Contact Info) Description 07/10/2023 10:45 EDT Office Visit [facility] Cardiology Clinic [address] [place] [address] Gianfranco Flowers MD 130 [facility] [address] [place] [address] S/P coronary artery stent placement (Primary Dx); Dyslipidemia Social History Tobacco Use Types Packs/Day Years [...] Sign Reading Time Taken Comments Blood Pressure 156/74 07/10/2023 1017 EDT Pulse 63 07/10/2023 1017 EDT Temperature - - Respiratory Rate - - Oxygen Saturation 95% 07/10/2023 1017 EDT Inhaled Oxygen Concentration - - Weight 68.9 kg (152 lb) 07/10/2023 1017 EDT Height 165.1 cm (5' 5) 07/10/2023 1017 EDT Body Mass Index 25.29 07/10/2023 1017 EDT documented in this encounter Functional Status [...] as of this encounter Progress Notes * Gainfranco Flowers MD - 07/10/2023 1045 EDT [facility] CARDIOLOGY FOLLOW-UP Date of Service: 07/10/2023 Reason for Visit: S/P coronary artery stent placement [Z95.5] ASSESSMENT & PLAN 1. NSTEMI s/p LAD PCI 11/2021. LCX [employer] w/ R-L collaterals. No angina or heart failure. - Stop Plavix - ASA and statin livelong - BB for at least 3 years 2. DLP. Fair lipid profile at time of MT (non-HDL 133). - Re-test lipids. If non-HDL > 100, will add Zetia or switch to rosuvastatin 40 mg daily. Follow-up 12 months, no testing SUBJECTIVE Concetta G Stone, 1940 83 y.o. 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 LCX [employer] w/ R-L collaterals. Concetta Sullivan is feeling reasonably well. She is sedentary. She denies exertional SOB or CP. She denies PND, palpitations, syncope, new stroke s/s. Due to impaired vision following CVA she cannot determine if GI or bleed. Past Surgical History: Procedure Laterality Date ??? COLONOSCOPY 01/2007 moderate diffuse diverticuli discussed with Dr. Tapia and declines further testing ??? CORONARY ANGIOPLASTY WITH STENT PLACEMENT 11/2021 LAD PCI. LCX [employer] w/ R-L collaterals ??? EYE SURGERY Outpatient Medications Marked as Taking for the 07/10/23 encounter (Office Visit) with Gianfranco Flowers MD Medication Sig ??? acetaminophen 325 mg capsule Take by mouth 2 times daily. ??? aspirin chewable 81 mg tablet CHEW AND SWALLOW 1 TABLET BY MOUTH ONCE DAILY ??? atorvastatin (LIPITOR) 40 mg tablet Take 1 Tablet by mouth at bedtime. ??? carvediloL (COREG) 3.125 mg tablet Take 1 Tablet by mouth 2 times daily with breakfast and dinner. ??? cholecalciferol, Vitamin D3, 25 mcg (1,000 unit) tablet Take 1 Tablet by mouth daily. ??? hypromellose (ISOPTO TEARS) 0.5 % ophthalmic solution Place 1 Drop into both eyes as needed. ??? levothyroxine (SYNTHROID) 100 mcg tablet Take 1 Tablet by mouth daily. ??? losartan (COZAAR) 100 mg tablet 1 tab(s) orally once a day ??? medical supply, miscellaneous (WALK[employer] WHE[employer]S ACCESSORY MISC) with seat, basket under the seat and breaks as directed dx: Abnormal gait and legally blind daily ??? meloxicam (MOBIC) 7.5 mg tablet Take 1 Tablet by mouth daily. Take with a meal and monitor for bleeding ??? xdkogctu-ucqcrxqpf-guxclbvlqbrrk (MAXITROL) 3.5mg/mL-10,000 unit/mL-0.1 % ophthalmic suspensionINSTILL 1 DROP TO BOTH EYES THREE TIMES A DAY ??? nitroglycerin (NITROSTAT) 0.[address] 1 Tablet under the tongue every 5 minutes as needed for Chest Pain. ??? triamcinolone (KENALOG) 0.1 % cream Apply topically to affected area 2 times daily. For up to 2weeks to rash on legs and neck. Do not apply to face, armpit or groin. ? ? vit A,C & L-xougyu-teootyni (OCUVITE) 300 mcg-200 mg-27 mg-2 mg tablet Take 1 tab by mouth daily ??? zoster vaccine recombinant, PF, (SHINGRIX) IM Injection - vial Inject 0.5 mL into the muscle Once for 1 dose. Repeat in 2 months Allergies: Adhesive tape-silicones, Bupivacaine, Enalapril, Other - see comments, Silicone, and Simvastatin Family History: Reviewed; noncontributory Social History: Nonsmoker. Rare alcohol. Review of Systems: Performed; pertinent positives and negatives as mentioned above. OBJECTIVE BP (!) 156/74 (BP Cuff Location: Right arm, BP Patient Position: Sitting, BP Cuff Sizes: Adult, large) Pulse 63 Ht 165.1 cm (65) Wt 68.9 kg (152 lb) SpO2 95% BMI 25.29 kg/m?? Diagnostic Data: Available records including laboratory and cardiac studies reviewed; pertinent findings as follows. Lab Results Component Value Date CREATININE 0.92 02/22/2022 CALCGFR 62 02/22/2022 BUN 19 02/22/2022 NA 136 02/22/2022 CL 105 02/22/2022 K 4.3 02/22/2022 MG 1.9 11/17/2021 ALT 27 02/21/2022 AST 28 02/21/2022 ALKPHOS 102 02/21/2022 Lab Results Component Value Date NTBNP 139 01/16/2020 TROPONINI 0.848 (HH) 11/15/2021 HGB 12.5 02/22/2022 Lab Results Component Value Date CHOL 199 11/12/2021 HDL 36 11/12/2021 LDL TNP 08/02/2020 LDLBASE 91 11/12/2021 TRIG 359 11/12/2021 Lab Results Component Value Date HGBA1C 6.0 (A) 08/03/2022 TSH 2.86 04/10/2022 NM stress test 11/2021: Moderate anterior JVM. EF 57%. Echocardiogram 11/2021: EF 58%, DD, highLAP. Normal RV. No or MR. PHYSICAL EXAM GENERAL: Seated in wheel chair, no acute distress HEENT: Anicteric. NECK: Normal jugular venous pressure sitting upright. CHEST: Nontender. LUNGS: Clear to auscultation bilaterally, no rhonchi rales or wheezes. HEART: Regular rate and rhythm, normal S1-S2, no murmurs. ABDOMEN: Soft, nontender, nondistended, bowel sounds present, no bruits. EXTREM: No cyanosis or edema. Equal pulses. SKIN: Warm and dry, no rashes. NEURO: Alert and oriented x3, grossly intact ORDERS & MEDICATION CHANGES Other Orders Placed This Visit Procedures ??? Lipid Profile (Includes Cholesterol, Triglycerides, HDL, LDL) ??? Lipoprotein a, Serum There are no discontinued medications. No orders of the defined types were placed in this encounter. Gianfranco Flowers MD, PhD documented in this encounter Plan of Treatment Upcoming Encounters Date Type Department Care Team (Late st Contact Info) Description 06/11/2024 12:45 EDT Office Visit [facility] Ophthalmology - [place] [address] [place], [place] [phone] Santiago Anthony MD [address] [facility], Level [address] [place] [address] 07/15/2024 10:45 EDT Office Visit [facility]iology Clinic [address] [place], [place] [address] Gianfranco Flowers MD 130 [facility] [address] [place] [address] documented as of this encounter Results * LIPOPROTEIN A, SERUM (07/16/2023 8:48 EDT) Lipoprotein A, S 11 <75 nmol/L 07/18/2023 13:11 EDT [facility] Comment: ADDITIONAL INFORMATION Please notice that Lp(a) values are reported in molar units (nmol/L). ??These units are recommended by professional society guidelines and expert opinion statements. ??Measured results and risk thresholds are higher than those generated using mass units (mg/dL). Cardiovascular risk increases starting at 75 nmol/L. Lp(a) >=125 nmol/L is considered a risk enhancing factor by the [place] [employer]. This test has been modified from the stitcher tape controlled machine's instructions. Its performance characteristics were determined by [facility] in a manner consistent with CLIA requirements. This test has not been cleared or approved by the U.S. Food and Drug Administration. Test Performed by: [address] [address] Marine Photographer: Goran Franks M.D. Ph.D.; CLIA# [id number] Blood VENOUS BLOOD / Unknown Venipuncture / Unknown 07/16/2023 8:48 EDT 07/16/2023 9:27 EDT Gianfranco Flowers MD CHEMISTRY & BLOOD GA S ORDERABLES Performing Organization Address City/State/[facility] Co de Phone Number [facility] [address] [place] [address] documented in this encounter Visit Diagnoses Diagnosis S/P coronary artery stent placement- Primary Postsurgical percutaneous transluminal coronary angioplasty status Dyslipidemia Other and unspecified hyperlipidemia documented in this encounter Orders Lab Orders Without Results Count Last Ordered D ate First Ordered Date LIPID PROFILE (INCLUDES CHOL ESTEROL, TRIGLYCERIDES, HDL, LDL) 1 07/10/2023 documented in this encounter Care Teams Fish Hatchery Laborer Relationship Specialty Start Date End Date Nivia Tinsley MD [address] [place] [address] PCP - General Family Medicine - Primary Care 08/27/19 Zheng Tapia MD [address] [place] [address] [address] [place] [address] Internal Medicine - Primary Care 09/01/19 Shazia Burks MD [address] [place] [address] Neurology 09/01/19 Tony Baron OD [address] [place] [phone] Clothing Presser 09/01/19 Keira Paniagua MD [address] [place] [address] [address] Cardiovascular Disease 09/06/20 Siva Perkins MD [address] [facility] [place] [address] Neurology 09/06/20 documented as of this encounter
--- OUTSIDE RECORDS SUMMARY | 2024-04-29 18:17 | XMS_ITS | Encounter Summary ---
Author Organization [facility] Address [address] [place] [address] Care Team Providers Care Regenerator Operator Name Role Phone Nivia Tinsley MD Primary Care Provider Zheng Tapia MD Unavailable Shazia Burks MD Unavailable [phone] Tony Baron OD Unavailable [phone] Keira Paniagua MD Unavailable Siva Perkins MD Unavailable [phone] Sheryl Schwab RN Unavailable Ladonna Candelario Unavailable Unavailable Reason for Visit * Reason Onset Date Comments Appointment Related 02/01/2023 Encounter Details Date Type Department Care Team (Late st Contact Info) Description 02/01/2023 Telephone [facility] [address] [place] [address] Gianfranco Flowers MD 130 [facility] [address] [place] [address] Appointment Related Social History Tobacco Use Types [...] in a skilled nursing (including now)? No 01/31/2023 Interpersonal Safety Answer [...] encounter Miscellaneous Notes * Telephone Encounter - Beata Brunner - 02/21/2023 1304 EDT Call placed to Concetta. Reached a ph # that didn't have vm set up. Call placed to Concetta's daughter Melani (have perm to speak), RVM, Left RCB. * Telephone Encounter - Beata Brunner - 02/01/2023 1334 EDT Called and spoke with Concetta. Concetta asked to call me back because she gets rides to and from appointments. Offered Concetta 05/10. Concetta thinks this will be a good day, but will call me back tomorrow. Appointment is for- CAD, 6 MONTH F/U Cancelling 05/29 appointment. Concetta aware documented in this encounter Plan of Treatment Upcoming Encounters Date Type Department Care Team (Bere caicedo Contact Info) Description 06/11/2024 12:45 EDT Office Visit [facility] Ophthalmology - [place] [address] [place], [place] [phone] Santiago Anthony MD 111 [facility], [facility] [address] [place] [address] 07/15/2024 10:45 EDT Office Visit [facility] Cardiology Clinic [address] [place], [place] [phone] Gianfranco Flowers MD [address] [place] [address] [address] [place] [address] documented as of this encounter Visit Diagnoses Not on filedocumented in this encounter Care Teams Regenerator Operator Relationship Specialty Start Date End Date Nivia Tinsley MD [address] [place] [address] PCP - General Family Medicine - Primary Care 08/27/19 Zheng Tapia MD [address] [place] [address] Internal Medicine - Primary Care 09/01/19 Shazia Burks MD [address] [place] [address] Neurology 09/01/19 Tony Baron, FRANCK [address] [place] [address] Lighting Director 09/01/19 Keira Paniagua MD [address] [place], [place] [address] [address] [place] [address] Cardiovascular Disease 09/06/20 Siva Perkins MD [address] [place] [address] Neurology 09/06/20 Sheryl Schwab, ANA [address] [place] [address] Neonatal Specialist 01/23/24 01/23/24 Ladonna Candelario Neonatal Specialist 01/23/24 documented as of this encounter
--- OUTSIDE RECORDS SUMMARY | 2024-04-29 18:17 | XMS_ITS | Encounter Summary ---
Author Organization [facility] Address [address] [place] [address] Care Team Providers Care Solderer Assembler Name Role Phone Nivia Tinsley MD Primary Care Provider Zheng Tapia MD Unavailable Shazia Burks MD Unavailable [phone] Tony Baron OD Unavailable [phone] Keira Paniagua MD Unavailable [phone] Siva Perkins MD Unavailable [phone] Reason for Visit * Reason Comments Eye Problem Wet AMD left eye. S/ p Eylea left 07/12/2022 Feels VA is significantly worse- no new F/F, no eye apin. Encounter Details Date Type Department Care Team (Late st Contact Info) Description 05/09/2023 10:15 EDT Office Visit [facility] Ophthalmology [facility] [address] [place] [address] Santiago Anthony MD 111 [facility], Level [address] [place] [address] Social History Tobacco Use Types [...] Progress Notes * Santiago Anthony MD - 05/09/2023 1015 EDT See note * Santiago Anthony MD - 05/09/2023 1015 EDT Chief Complaint Patient presents with ??? Eye Problem Wet AMD left eye. S/p Eylea left 07/12/2022 Feels VA is significantly worse- no new F/F, no eye apin. HPI Eye Problem Comments: Wet AMD left eye. S/p Eylea left 07/12/2022 Feels VA is significantly worse- no new F/F, no eye apin. Base Eye Exam Visual Acuity (Snellen - Linear) Right Left Dist cc 20/350 CF at 1' Correction: Glasses Tonometry (Applanation, 10:28) Right Left Pressure 22 18 Pupils Pupils Right PERRL Left PERRL Dilation Both eyes: Phenylephrine 2.5%, Tropicamide 1% @ 10:29 Slit Lamp and Fundus Exam Slit Lamp Exam Right Left Cornea SPK, ?epi defect Iris atrophy atrophy Fundus Exam Right Left Macula no heme Periphery blonde fundus blonde fundus Please refer to large retinal drawing. OCT, Retina - OU - Both Eyes Right Eye Quality was poor. Scan locations included subfoveal. Progression has been stable. Findings include (Irregular contour ). Left Eye Quality was poor. Scan locations included subfoveal. Progression has worsened. Findings include (IRedema ). IMPRESSION: 1. 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 Dry eye PLAN: Wet Macular Degeneration left eye Decrease vision and worsening OCT Discussed options: Continue to observe vs eylea injection RBA&C discussed D/w pt and caregiver I do think this is combo AGE-RELATED MACULAR DEGENERATION/albinism/SOCO We have decided to cont same course and hold injectionk Dry eyes left severe Significant with very irregular surface Increase AT's and try gel AT's Pt using visine. STOP Recommend getting back to general eye doctor - Dr. George Church Limiting vision Return in about 7 weeks (around 06/27/2023) for oct. I, Santiago Anthony MD, have performed my own history, and have evaluated and examined the patient myself. I am scribing for Santiago Anthony MD while he is personally performing the service. LESA Finnegan (Scribe) documented in this encounter Plan of Treatment Upcoming Encounters Date Type Department Care Team (Late st Contact Info) Description 06/11/2024 12:45 EDT Office Visit [facility] Ophthalmology - [place] [address] [place] [address] Santiago Anthony MD 111 [facility], Level [address] [place] [address] 07/15/2024 10:45 EDT Office Visit [facility] Cardiology Clinic [address] [place] [address] Ginafranco Flowers MD [address] [facility] [address] [place] [address] documented as of this encounter Procedures Procedure Name Priority Date/Time Associated Diagnosis Comments OCT, RETINA - OU - BOTH EYES Routine 05/09/2023 10:15 EDT Exudative age-related macular degeneration of left eye, unspecified stage ([facility]) documented in this encounter Results * OCT, RETINA - OU - BOTH EYES (05/09/2023 10:15 EDT) Narrative [facility] OPHTHALMOLOGY - 05/10/2023 9:07 EDT Right Eye Quality was poor. Scan locations included subfoveal. Progression has been stable. Findings include (Irregular contour ). Left Eye Quality was poor. Scan locations included subfoveal. Progression has worsened. Findings include (IR edema ). Santiago Anthony MD OPHTH TOMOGRAPHY 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 Dry eye Tear film insufficiency, unspecified documented in this encounter Eye Exam Visual Acuity (Snellen - Linear) Right eye Left eye Dist cc 20/350 CF at 1' Correction: Glasses Tonometry (Applanation, 10:28) Right eye Left eye Pressure 22 18 Pupils Pupils Right eye PERRL Left eye PERRL Dilation Both eyes: Phenylephrine 2.5 %, Tropicamide 1% @ 10:29 Slit Lamp Exam Right eye Left eye Cornea SPK, ?epi defect Iris atrophy atrophy Fundus Exam Right eye Left eye Macula no heme Periphery blonde fundus blonde fundus Care Teams Solderer Assembler Relationship Specialty Start Date End Date Nivia Tinsley MD [address] [place] [address] PCP - General Family Medicine - Primary Care 08/27/19 Zheng Tapia MD [address] [place] [address] [address] [place] [address] Internal Medicine - Primary Care 09/01/19 Shazia Burks MD [address] [place] [address] Neurology 09/01/19 Tony Baron OD [address] [place] [phone] Product Marketing Director 09/01/19 Keira Paniagua MD [address] [place] [address] [address] Cardiovascular Disease 09/06/20 Siva Perkins MD 1200 [facility] [place] [address] Neurology 09/06/20 documented as of this encounter
--- OUTSIDE RECORDS SUMMARY | 2024-04-29 18:17 | XMS_ITS | Encounter Summary ---
Author Organization [facility] Address [address] [place] [address] Care Team Providers Care Systems Spec Name Role Phone Nivia Tinsley MD Primary Care Provider Zheng Tapia MD Unavailable Shazia Burks MD Unavailable [phone] Tony Baron OD Unavailable [phone] Keira Paniagua MD Unavailable [phone] Siva Perkins MD Unavailable [phone] Reason for Visit * Reason Comments Eye Problem Wet AMD Left eye, S/ p Eylea Left eye - 07/12/22 Encounter Details Date Type Department Care Team (Late st Contact Info) Description 03/14/2023 9:00 EDT Office Visit [facility] Ophthalmology [facility] [address] [place] [address] Santiago Anthony MD 111 [facility], [facility] 5 [place] [address] Social History Tobacco Use Types [...] slept in a chcf (including now)? No 01/31/2023 Interpersonal Safety Answer [...] Progress Notes * Santiago Anthony MD - 03/14/2023 0900 EDT Chief Complaint Patient presents with ??? Eye Problem Wet AMD Left eye, S/p Eylea Left eye - 07/12/22 HPI Eye Problem Comments: Wet AMD Left eye, S/p Eylea Left eye - 07/12/22 Comments She reports vision may be a little worse but is hard for her to tell. No new floaters, flashes or pain in the eyes. Base Eye Exam Visual Acuity (Snellen - Linear) Right Left Dist cc 20/400 CF at 3' Correction: Glasses Tonometry (Applanation, 9:13) Right Left Pressure 20 21 Neuro/Psych Oriented x3: Yes Mood/Affect: Normal Dilation Both eyes: Tropicamide 1% @ 9:14 Slit Lamp and Fundus Exam Slit Lamp Exam Right Left Iris Transillumination defects Transillumination defects Lens Posterior chamber intraocular lens Posterior chamber intraocular lens Fundus Exam Right Left Disc Intact Rim C/D Ratio 0.6 Macula no fluid or heme Please refer to large retinal drawing. OCT, Retina - OU - Both Eyes Right Eye Quality was poor. Scan locations included subfoveal. Progression has been stable. Findings include (Irregular contour ). Left Eye Quality was poor. Scan locations included subfoveal. Progression has been stable. Findings include (IR edema ). IMPRESSION: 1. 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 Still able to read mail with magnify glass Discussed options: Observe vs eylea injection Recommend holding injection Pt agrees Albinism Limiting vision Follow Return in about 8 weeks (around 05/09/2023) for 15 wks . ISantiago MD, have performed my own history, and have evaluated and examined the patient myself. I am scribing for Santiago Anthony MD while he is personally performing the service. LESA Finnegan (Scribe) documented in this encounter Plan of Treatment Upcoming Encounters Date Type Department Care Team (Late st Contact Info) Description 06/11/2024 12:45 EDT Office Visit [facility] Ophthalmology - [address] [address] Santiago Anthony MD [address] [place] [address], [facility] [address] [place] [address] 07/15/2024 10:45 EDT Office Visit [facility] Cardiology Clinic [address] [place] [address] Gianfranco Flowers MD 130 [facility] [address] [place] [address] documented as of this encounter Procedures Procedure Name Priority Date/Time Associated Diagnosis Comments OCT, RETINA - OU - BOTH EYES Routine 03/14/2023 9:53 EDT Exudative age-related macular degeneration of left eye, unspecified stage ([facility]) documented in this encounter Results * OCT, RETINA - OU - BOTH EYES (03/14/2023 9:53 EDT) Narrative [facility] OPHTHALMOLOGY - 03/15/2023 9:28 EDT Right Eye Quality was poor. Scan locations included subfoveal. Progression has been stable. Findings include (Irregular contour ). Left Eye Quality was poor. Scan locations included subfoveal. Progression has been stable. Findings include (IR edema ). 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 documented in this encounter Eye Exam Visual Acuity (Snellen - Linear) Right eye Left eye Dist cc 20/400 CF at 3' Correction: Glasses Tonometry (Applanation, 9:13) Right eye Left eye Pressure 20 21 Neuro/Psych Oriented x3: Yes Mood/Affect: Normal Dilation Both eyes: Tropicamide 1% @ 9:14 Slit Lamp Exam Right eye Left eye Iris Transillumination defects Transi llumination defects Lens Posterior chamber intraocular le ns Posterior chamber intraocular lens Fundus Exam Right eye Left eye Disc Intact Rim C/D Ratio 0.6 Macula no fluid or heme Care Teams Systems Spec Relationship Specialty Start Date End Date Nivia Tinsley MD [address] [place] [address] PCP - General Family Medicine - Primary Care 08/27/19 Zheng Tapia MD [address] [place] [address] [place] [address] Internal Medicine - Primary Care 09/01/19 Shazia Burks MD [address] [place], [place] [address] Neurology 09/01/19 Tony Baron OD [address] [place] [address] C++ Quant Developer 09/01/19 Keira Paniagua MD [address] [place] [phone] Cardiovascular Disease 09/06/20 Siva Perkins MD [address] [place] [address] [place] [address] Neurology 09/06/20 documented as of this encounter
--- OUTSIDE RECORDS SUMMARY | 2024-04-29 18:17 | XMS_ITS | Encounter Summary ---
Author Organization [facility] Address [address] [place] [address] Care Team Providers Care Utility Bagger Name Role Phone Nivia Tinsley MD Primary Care Provider [phone] Zheng Tapia MD Unavailable Shazia Burks MD Unavailable [phone] Tony Baron OD Unavailable [phone] Keira Paniagua MD Unavailable [phone] Siva Perkins MD Unavailable Encounter Details Date Type Department Care Team (Latest Contact Info) Description 01/31/2023 Travel Social History Tobacco Use Types Packs/Day [...] place to sleep or slept in a assisted (including now)? No 01/31/2023 Interpersonal Safety Answer [...] Info) Description 06/11/2024 12:45 EDT Office Visit [facility] Ophthalmology [address] [phone] Santiago Anthony MD [address] [place] [address], [facility] 5 [place] [address] 07/15/2024 10:45 EDT Office Visit [facility] Cardiology Clinic [address] [place], [place] [phone] Gianfranco Flowers MD 130 [facility] [address] [place] [phone] documented as of this encounter Visit Diagnoses Not on filedocumented in this encounter Care Teams Utility Bagger Relationship Specialty Start Date End Date Nivia Tinsley MD [address] [place] [phone] PCP - General Family Medicine - Primary Care 08/27/19 Zheng Tapia MD [address] [place] [address] [address] [place] [address] Internal Medicine - Primary Care 09/01/19 Shazia Burks MD [address] [place] [address] Neurology 09/01/19 Tony Baron OD [address] [place] [phone] Perioperative Manager 09/01/19 Keira Paniagua MD [address] [place] [address] Cardiovascular Disease 09/06/20 Siva Perkins MD 1200 [facility] [address] Neurology 09/06/20 documented as of this encounter
--- OUTSIDE RECORDS SUMMARY | 2024-04-29 18:17 | XMS_ITS | Encounter Summary ---
Author Organization [facility] Address [address] [place] [address] Care Team Providers Care Nut Roaster Name Role Phone Nivia Tinsley MD Primary Care Provider Zheng Tapia MD Unavailable Shazia Burks MD Unavailable [phone] Tony Baron OD Unavailable [phone] Keira Paniagua MD Unavailable [phone] Siva Perkins MD Unavailable [phone] Reason for Visit * Reason Comments Eye Problem Wet age-related macu lar degeneration, left eye. 7 weeks s/p Eylea (05/09/23) Encounter Details Date Type Department Care Team (Late st Contact Info) Description 06/27/2023 10:30 EDT Office Visit [facility] Ophthalmology [facility] [address] [place], [place] [address] Santiago Anthony MD 111 [facility], Level [address] [place] [address] Social History Tobacco Use Types [...] Progress Notes * Santiago Anthony MD - 06/27/2023 1030 EDT Chief Complaint Patient presents with ??? Eye Problem Wet age-related macular degeneration, left eye. 7 weeks s/p Eylea (05/09/23) HPI Eye Problem Comments: Wet age-related macular degeneration, left eye. 7 weeks s/p Eylea (05/09/23) Comments Patient feels like the vision continues to get worse. Eyes itch sometimes but mostly feel okay. Just finished some antibiotic eye drops. No new floaters or flashes. Base Eye Exam Visual Acuity (Snellen - Linear) Right Left Dist cc 20/400 CF at 1' Tonometry (Applanation, 11:08) Right Left Pressure 22 20 Pupils Pupils APD Right PERRL None Left PERRL None Neuro/Psych Oriented x3: Yes Mood/Affect: Normal Dilation Both eyes: Tropicamide 1%, Phenylephrine 2.5% @ 11:09 Slit Lamp and Fundus Exam Slit Lamp Exam Right Left Lids/Lashes Normal Normal Conjunctiva/Sclera White and quiet White and quiet Cornea SPK 4+ SPK 4+ Anterior Chamber Deep and quiet Deep and quiet Iris Dilated Dilated Lens Posterior chamber intraocular lens Posterior chamber intraocular lens Fundus Exam Right Left Disc Healthy Rim Healthy Rim Macula no hemorrhage or edema no hemorrhage Vessels Normal Normal Periphery flat, blond fundus flat, blond fundus Please refer to large retinal drawing. OCT, Retina - OU - Both Eyes Right Eye Quality was poor. Scan locations included subfoveal. Progression has been stable. Findings include (Irregular contour ). Left Eye Quality was poor. Scan locations included subfoveal. Progression has worsened. Findings include (Intra-retinal edema ). IMPRESSION: 1. 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 Dry eyes Severe Continue with artificial tears ?? Albinism Limiting vision in addition to age-related macular degeneration ?? Return for 6 and 13 weeks for ?injection left eye, OCT . I, Santiago Anthony MD, have performed my own history, and have evaluated and examined the patient myself. I am scribing for Santiago Anthony MD while he is personally performing the service. LESA Graham (Scribe) documented in this encounter Plan of Treatment Upcoming Encounters Date Type Department Care Team (Late st Contact Info) Description 06/11/2024 12:45 EDT Office Visit [facility] Ophthalmology - [address] [address] Santiago Anthony MD [address] [place] [address], [address] [place] [address] 07/15/2024 10:45 EDT Office Visit [facility] Cardiology Clinic [address] [place], [place] [phone] Gianfranco Flowers MD [address] [place] [address]-A [address] [place] [address] documented as of this encounter Procedures Procedure Name Priority Date/Time Associated Diagnosis Comments OCT, RETINA - OU - BOTH EYES Routine 06/27/2023 11:27 EDT Exudative age-related macular degeneration of left eye, unspecified stage ([facility]) documented in this encounter Results * OCT, RETINA - OU - BOTH EYES (06/27/2023 11:27 EDT) Narrative [facility] OPHTHALMOLOGY - 06/29/2023 8:14 EDT Right Eye Quality was poor. Scan locations included subfoveal. Progression has been stable. Findings include (Irregular contour ). Left Eye Quality was poor. Scan locations included subfoveal. Progression has worsened. Findings include (Intra-retinal edema ). 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 Dry eye Tear film insufficiency, unspecified documented in this encounter Eye Exam Visual Acuity (Snellen - Linear) Right eye Left eye Dist cc 20/400 CF at 1' Tonometry (Applanation, 11:08) Right eye Left eye Pressure 22 20 Pupils Pupils APD Right eye PERRL None Left eye PERRL None Neuro/Psych Oriented x3: Yes Mood/Affect: Normal Dilation Both eyes: Tropicamide 1%, P henylephrine 2.5% @ 11:09 Slit Lamp Exam Right eye Left eye Lids/Lashes Normal Normal Conjunctiva/Sclera White and quiet White and russel et Cornea SPK 4+ SPK 4+ Anterior Chamber Deep and quiet Deep and quiet Iris Dilated Dilated Lens Posterior chamber in traocular lens Posterior chamber intraocular lens Fundus Exam Right eye Left eye Disc Healthy Rim Healthy Rim Macula no hemorrhage or edema no hemorr jarrod Vessels Normal Normal Periphery flat, blond fundus flat, blond f undus Care Teams Nut Roaster Relationship Specialty Start Date End Date Nivia Tinsley MD [address] [place] [address] PCP - General Family Medicine - Primary Care 08/27/19 Zheng Tapia MD [address] [place] [address] [address] [place] [address] Internal Medicine - Primary Care 09/01/19 Shazia Burks MD [address] [place] [address] Neurology 09/01/19 Tony Baron OD [address] [place] [phone] Teaching Artist 09/01/19 Keira Paniagua MD [address] [place] [address] [address] [place] [address] Cardiovascular Disease 09/06/20 Siva Perkins MD [address] [facility] [place] [phone] Neurology 09/06/20 documented as of this encounter
--- OUTSIDE RECORDS SUMMARY | 2024-04-29 18:17 | XMS_ITS | Encounter Summary ---
Author Organization [facility] Address [address] [place] [address] Care Team Providers Care Paleobotanist Name Role Phone Nivia Tinsley MD Primary Care Provider Zheng Tapia MD Unavailable Shazia Burks MD Unavailable [phone] Tony Baron OD Unavailable [phone] Keira Paniagua MD Unavailable Siva Perkins MD Unavailable [phone] Sheryl Schwab RN Unavailable Ladonna Candelario Unavailable Unavailable Reason for Visit * Reason Onset Date Comments Appointment Related 04/10/2023 Encounter Details Date Type Department Care Team (Late st Contact Info) Description 04/10/2023 Telephone [facility] [address] [place] [address] [facility] [address] [place] [address] Appointment Related Social History Tobacco [...] * Telephone Encounter - Jay Cevallos - 04/10/2023 1238 EDT Patient's appt on 04/11 had to be cancelled. Patient could not take an afternoon appointment due to transportation. documented in this encounter Plan of Treatment Upcoming Encounters Date Type Department Care Team (Late st Contact Info) Description 06/11/2024 12:45 EDT Office Visit [facility] Ophthalmology - [address] [address] Santiago Anthony MD [address] [place] [address] 5 [place] [address] 07/15/2024 10:45 EDT Office Visit [facility] [address] [place], [place] [phone] Gianfranco Flowers MD 130 [facility] [address] [place] [address] documented as of this encounter Visit Diagnoses Not on filedocumented in this encounter Care Teams Paleobotanist Relationship Specialty Start Date End Date Nivia Tinsley MD [address] [place] [address] PCP - General Family Medicine - Primary Care 08/27/19 Zheng Tapia MD [address] [place] [address] [address] [place] [address] Internal Medicine - Primary Care 09/01/19 Shazia Burks MD [address] [place] [address] Neurology 09/01/19 Tony Baron OD [address] [place] [phone] Marketing Traffic Coordinator 09/01/19 Keira Paniagua MD [address] [place] [address] [address] [place] [address] Cardiovascular Disease 09/06/20 Siva Perkins MD [address] [place] [address] Neurology 09/06/20 Sheryl Schwab, ANA [address] [place], [place] [address] Petrologist 01/23/24 01/23/24 Ladonna Candelario Petrologist 01/23/24 documented as of this encounter
--- OUTSIDE RECORDS SUMMARY | 2024-04-29 18:17 | XMS_ITS | Encounter Summary ---
Author Organization [facility] Address [address] [place] [address] Care Team Providers Care Configuration Management Consultant Name Role Phone Nivia Tinsley MD Primary Care Provider [phone] Zheng Tapia MD Unavailable Shazia Burks MD Unavailable [phone] Tony Baron OD Unavailable Keira Paniagua MD Unavailable [phone] Siva Perkins MD Unavailable [phone] Sheryl Schwab RN Unavailable Ladonna Candelario Unavailable Unavailable Reason for Visit * Reason Onset Date Comments DME 06/19/2023 Encounter Details Date Type Department Care Team (Late st Contact Info) Description 06/19/[address] [facility] Integrative Family Medicine [facility] [address] [place] [address] Nivia Tinsley MD [address] [place] [address] DME Social History Tobacco Use Types Packs/Day Years [...] Telephone Encounter - Phil Vickers RN - 06/20/2023 1405 EDT Order printed on WA 3. Please have PCP sign and fax to pharmacy of choice. * Telephone Encounter - Phil Vickers RN - 06/19/2023 1357 EDT Would you please load these at your convenience? * Telephone Encounter - Avis Mckoen - 06/19/2023 1221 EDT Undergarments Size Large - 3 or so per day Under pads uses 5 per day or so per day No specific brand needed * Telephone Encounter - Phil Vickers RN - 06/19/2023 1058 EDT What size does the patient need, and how many do they use per day? Do they have a specific brand they hope to receive? How many underpads would they like to use per day? * Telephone Encounter - Isabela Mckeonthia - 06/19/2023 0928 EDT Pt calling to ask if we can get Pull ups and pads ordered so that Medicare will pay for them?? She uses [facility] in [place] for a pharmacy. I'm sure care-evaluation analyst will go to [facility] in [facility] shrimp picker if approved. documented in this encounter Plan of Treatment Upcoming Encounters Date Type Department Care Team (Late st Contact Info) Description 06/11/2024 12:45 EDT Office Visit [facility] Ophthalmology - [address] [phone] Santiago Anthony MD [address] [place] [address] 5 [place] [address] 07/15/2024 10:[address] [facility] [address] [place], [place] [phone] Gianfranco Flowers MD 130 [facility] [address] [place] [address] documented as of this encounter Visit Diagnoses Diagnosis Mixed incontinence- Primary Mixed incontinence urge and stress (male)(female) documented in this encounter Orders Equipment Count Last Ordered Date First Orde red Date ADULT DIAPERS 1 06/20/2023 INCONTINENCE UNDERPADS 1 06/20/2023 documented in this encounter Care Teams Configuration Management Consultant Relationship Specialty Start Date End Date Nivia Tinsley MD [address] [place] [phone] PCP - General Family Medicine - Primary Care 08/27/19 Zheng Tapia MD [address] [place] [address] [address] [place] [address] Internal Medicine - Primary Care 09/01/19 Shazia Burks MD [address] [place] [address] Neurology 09/01/19 Tony Baron OD [address] [place] [phone] Ophthalmology Assistant 09/01/19 Keira Paniagua MD [address] [place] [address] [address] [place] [address] Cardiovascular Disease 09/06/20 Siva Perkins MD [address] [place] [address] Neurology 09/06/20 Sheryl Schwab, ANA [address] [place], [place] [address] Property Management Supervisor 01/23/24 01/23/24 Ladonna Candelario Property Management Supervisor 01/23/24 documented as of this encounter
--- OUTSIDE RECORDS SUMMARY | 2024-04-29 18:17 | XMS_ITS | Encounter Summary ---
Author Organization [facility] Address [address] [place] [address] Care Team Providers Care Messaging Architect Name Role Phone Nivia Tinsley MD Primary Care Provider Zheng Tapia MD Unavailable Shazia Burks MD Unavailable [phone] Tony Baron OD Unavailable [phone] Keira Paniagua MD Unavailable [phone] Siva Perkins MD Unavailable Encounter Details Date Type Department Care Team (Late st Contact Info) Description 07/16/2023 8:45 EDT Phlebotomy Only [facility] - Outpatient Phlebotomy Drawing [address] [place] [address] Lab, [facility] Encounter for annual wellness exam in Medicare patient; Encounter for lipid screening for cardiovascular disease; Diabetes mellitus type 2, noninsulin dependent (HCC-CMS); Dyslipidemia Social History Tobacco Use Types Packs/Day [...] as of this encounter Miscellaneous Notes * Result Encounter Note - Gianfranco Flowers MD - 07/16/2023 0845 EDT Abnormal, please contact the patient to tell her about the results and the following changes in therapy. Non-HDL 1175, goal < 100. Ascertain that she is taking her Lipitor as prescribed. Add Zetia 10 mg daily to get non-HLD closerto goal. * Result Encounter Note - Nivia Tinsley MD - 07/16/2023 0845 EDT Okay to notify the patient that her electrolytes are stable but her triglycerides and non-HDL cholesterol is slightly elevated. It looks like Dr. Flowers is going to contact her to be sure she is taking her Lipitor, and if so he is going to add another medicine: Gianfranco Flowers MD 07/16/2023 10:23 EDTBack to Top Abnormal, please contact the patient to tell her about the results and the following changes in therapy. ?? Non-HDL 1175, goal < 100. ?? Ascertain that she is taking her Lipitor as prescribed. Add Zetia 10 mg daily to get non-HLD closerto goal. * Result Encounter Note - Kirsten Rachel RN - 07/16/2023 0845 EDT Pt given results and instructions. Order placed. * Result Encounter Note - Nivia Tinsley MD - 07/16/2023 0845 EDT The results are abnormal. Will discuss at her appointment. documented in this encounter Plan of Treatment Upcoming Encounters Date Type Department Care Team (Late st Contact Info) Description 06/11/2024 12:45 EDT Office Visit [facility] Ophthalmology - [address] [address] Santiago Anthony MD [address] [place] [address] 5 [place] [phone] 07/15/2024 10:45 EDT Office Visit [facility] Clinic [address] [place] [address] Gianfranco Flowers MD 130 [facility] [address] [place] [address] documented as of this encounter Procedures Procedure Name Priority Date/Time Associated Diagnosis Comments URINE [id number]-[id number] RATIO (ACR) Routine 07/19/2023 13:25 EDT Encounter for annual wellness exam in Medicare patient Encounter for lipid screening for cardiovascular disease Diabetes mellitus type 2, noninsulin dependent ([facility]-CMS) Dyslipidemia LIPOPROTEIN A, SERUM Routine 07/16/2023 8:48 EDT Dyslipidemia LDL, DIRECT Today 07/16/2023 8:48 EDT Encounter for annual wellness exam in Medicare patient Encounter for lipid screening for cardiovascular disease LIPID PROFILE (INCLUDES CHOLESTEROL, TRIGLYCERIDES, HDL, LDL) Routine 07/16/2023 8:48 EDT Encounter for annual wellness exam in Medicare patient Encounter for lipid screening for cardiovascular disease COMPREHENSIVE METABOLIC PANEL (CMP) Routine 07/16/2023 8:48 EDT Diabetes mellitus type 2, noninsulin dependent (HCC-CMS) documented in this encounter Results * (ABNORMAL) URINE [id number] RATIO (ACR) (07/19/2023 13:25 EDT) Albumin, Urine 9.3 See Note mg/dL 2022 14:13 EDT [facility] Comment: NOTE: Reference range not established Creatinine, Urine 62.5 See Note mg/dL 07/19/2023 14:13 EDT [facility] Comment: NOTE: Reference range not established Lab Urine Albumin to Creatinine Ratio 149(H) <30 ??g/mg Creatinine 07/19/2023 14:13 EDT [facility] Comment: Urine Albumin/Creatinine Ratio: Normal: <30 ug/mg Creatinine Moderately increased albuminuria: 30-300 ug/mg Creatinine Severely increased albuminuria: >300 ug/mg Creatinine Urine URINE / Unknown Urine Collect / Unknown 07/19/2023 13:25 EDT 07/19/2023 13:25 EDT Nivia Tinsley MD CHEMISTRY & BLOOD G ORDERABLES Performing Organization Address City/State/[facility] Co de Phone Number [facility] [address] [place] [address] * LDL, DIRECT (07/16/2023 8:48 EDT) LDL, Direct 69 <160 mg/dL 07/16/2023 10:39 EDT [facility] Comment: LDL, Direct Reference Ranges: Optimal: Less than 100 mg/dL Above Optimal: 100-129 mg/dL Borderline High: 130-159 mg/dL High: 160-189 mg/dL Very High: Greater than or equal to 190 mg/dL Blood VENOUS BLOOD / Unknown Venipuncture / Unknown 07/16/2023 8:48 EDT 07/16/2023 9:26 EDT Nivia Tinsley MD CHEMISTRY & BLOOD G ORDERABLES Performing Organization Address City/[facility]/ZIP Co de Phone Number [facility] [address] [place] [address] * LIPOPROTEIN A, SERUM (07/16/2023 8:48 EDT) Lipoprotein A, S 11 <75 nmol/L 07/18/2023 13:11 EDT [facility] Comment: ADDITIONAL INFORMATION Please notice that Lp(a) values are reported in molar units (nmol/L). ??These units are recommended by professional society guidelines and expert opinion statements. ??Measured results and risk thresholds are higher than those generated using mass units (mg/dL). Cardiovascular risk increases starting at 75 nmol/L. Lp(a) >=125 nmol/L is considered a risk enhancing factor by the [place] [employer]. This test has been modified from the wire weaver's instructions. Its performance characteristics were determined by [facility] in a manner consistent with CLIA requirements. This test has not been cleared or approved by the U.S. Food and Drug Administration. Test Performed by: [address] [address] Cafeteria Or Lunchroom Checker: Goran Franks M.D. Ph.D.; CLIA# [id number] Blood VENOUS BLOOD / Unknown Venipuncture / Unknown 07/16/2023 8:48 EDT 07/16/2023 9:27 EDT Gianfranco Flowers MD CHEMISTRY & BLOOD GA S ORDERABLES Performing Organization Address City/[facility]/ZIP Co de Phone Number [address] [address] * (ABNORMAL) COMPREHENSIVE METABOLIC PANEL (CMP) (07/16/2023 8:48 EDT) Sodium 134(L) 136 - 145 mmol/L 07/16/2023 9:59 EDT [facility] Potassium 4.4 3.5 - 5.0 mmol/L 07/16/2023 9:59 [facility] Chloride 99 96 - 110 mmol/L 07/16/2023 9:59 [facility] CO2 Total 25 22 - 32 mmol/L 07/16/2023 9:59 [facility] Glucose 129(H) 70 - 99 mg/dl 07/16/2023 9:59 [facility] BUN 16 10 - 26 mg/dL 07/16/2023 9:59 [facility] Creatinine 0.75 0.52 - 1.04 mg/dL 07/16/2023 9:59 [facility] eGFR 78 >60 mL/min/1.7 3m2 07/16/2023 9:59 [facility] Total Protein 7.1 6.3 - 8.2 g/dL 07/16/2023 9:59 [facility] Albumin 4.3 3.4 - 4.9 g/dL 07/16/2023 9:59 [facility] Alkaline Phosphatase 106 38 - 126 U/L 07/16/2023 9:59 [facility] AST 20 15 - 46 U/L 07/16/2023 9:59 [facility] ALT 24 <35 U/L 07/16/2023 9:59 [facility] Bilirubin, Total 0.9 <1.4 mg/dL 07/16/20 9:59 [facility] Calcium 9.4 8.5 - 10.5 mg/dL 07/16/2023 9:59 [facility] Albumin/Globulin Ratio 1.5 1.0 - 2.5 g/dL 07/16/2023 9:59 [facility] Anion Gap 10 5 - 14 mmol/L 07/16/2023 9:59 [facility] Blood VENOUS BLOOD / Unknown Venipuncture / Unknown 07/16/2023 8:48 EDT 07/16/2023 9:26 EDT Nivia Tinsley MD CHEMISTRY & BLOOD G ORDERABLES Performing Organization Address [facility]/ZIP Co de Phone Number [facility] [address] [place] [address] * (ABNORMAL) LIPID PROFILE (INCLUDES CHOLESTEROL, TRIGLYCERIDES, HDL, LDL) (07/16/2023 8:48 EDT) Cholesterol 207(H) <200 mg/dL 07/16/2023 10:16 EDT [facility] Comment:Note that therapeuti c goals will differ between patients based on cardiac risk factors and current medical therapy. HDL 32(L) >=50 mg/dl 07/16/2023 10:16 EDT [facility] Comment:Note that therapeuti c goals will differ between patients based on cardiac risk factors and current medical therapy. LDL, Calculated 10:16 EDT [facility] Comment: Note that therapeutic goals will differ between patients based on cardiac risk factors and current medical therapy. Calculated LDL invalid, triglycerides >400 mg/dL Direct LDL measurement added by reflex. Triglyceride 644(H) <=150 mg/dL 07/16/2023 10:16 EDT [facility] Comment:Note that therapeuti c goals will differ between patients based on cardiac risk factors and current medical therapy. Chol/HDL Ratio 6.5 See Note 07/16/2023 10:16 EDT [facility] Comment: NOTE: Desirable Ratio = <4.1 Patient At Risk Ratio = >5.0(Males) ?>6.0(Females) Non HDL Cholesterol 175(H) <160 mg/dL 07/16/2023 10:16 EDT [facility] Comment:Note that therapeuti c goals will differ between patients based on cardiac risk factors and current medical therapy. Blood VENOUS BLOOD / Unknown Venipuncture / Unknown 07/16/2023 8:48 EDT 07/16/2023 9:26 EDT Nivia Tinsley MD CHEMISTRY & BLOOD G ORDERABLES Performing Organization Address [facility]/ZIP Co de Phone Number [facility] [address] [place] [address] documented in this encounter Visit Diagnoses Diagnosis Encounter for annual wellness exam in Medicare patient Encounter for lipid screening for cardiovascular disease Screening for lipoid disorders Diabetes mellitus type 2, noninsulin dependent (HCC-CMS) Type II or unspecified type diabetes mellitus without mention of complication, not stated as uncontrolled Dyslipidemia Other and unspecified hyperlipidemia documented in this encounter Care Teams Messaging Architect Relationship Specialty Start Date End Date Nivia Tinsley MD [address] [place] [phone] PCP - General Family Medicine - Primary Care 08/27/19 Zheng Tapia MD [address] [place] [address] [address] [place] [phone] Internal Medicine - Primary Care 09/01/19 Shazia Burks MD [address] [place] [address] Neurology 09/01/19 Tony Baron, FRANCK [address] [place] [phone] Oyster Sorter 09/01/19 Keira Paniagua MD 130 [facility] [address] [place] [phone] Cardiovascular Disease 09/06/20 Siva Perkins MD [address] [facility] [place] [address] Neurology 09/06/20 documented as of this encounter
--- OUTSIDE RECORDS SUMMARY | 2024-04-29 18:17 | XMS_ITS | Encounter Summary ---
Author Organization [facility] Address [address] [place] [address] Care Team Providers Care Senior Field Service Engineer Name Role Phone Nivia Tinsley MD Primary Care Provider Zheng Tapia MD Unavailable Shazia Burks MD Unavailable [phone] Tony Baron OD Unavailable [phone] Keira Paniagua MD Unavailable [phone] Siva Perkins MD Unavailable [phone] Reason for Visit * Reason Onset Date Comments Labs Only 07/12/2023 Encounter Details Date Type Department Care Team (Late st Contact Info) Description 07/12/2023 Telephone [facility] Family [address] [phone] [address] [phone] Labs Only Social History Tobacco Use Types Packs/Day Years [...] to sleep or slept in a senior living (including now)? No 01/31/2023 Interpersonal Safety Answer [...] * Telephone Encounter - Claudia Vizcarra - 07/13/2023 1006 EDT Salome called back and I updated her cell number and confirmed Concetta Sullivan's home number in the system. She is aware that no additional labs need to be ordered. * Telephone Encounter - Claudia Vizcarra - 07/12/2023 1145 EDT Unable to leave msg on phone on file because it's for a diff person. * Telephone Encounter - Nivia Tinsley MD - 07/12/2023 1050 EDT I agree. * Telephone Encounter - Phil Vickers RN - 07/12/2023 1034 EDT List of pending orders appears to be comprehensive. * Telephone Encounter - Claudia Vizcarra - 07/12/2023 1031 EDT Pt had labs ordered recently and is wondering if Nivia wants any additional labs ordered prior to her upcoming appt on 07/26? documented in this encounter Plan of Treatment Upcoming Encounters Date Type Department Care Team (Late st Contact Info) Description 06/11/2024 12:45 EDT Office Visit [facility] - [place] [address] [place], [place] [phone] Santiago Anthony MD 111 [facility], [facility] 5 [place] [address] 07/15/2024 10:45 EDT Office Visit [facility] [address] [place], [place] [phone] Gianfranco Flowers MD 130 [facility] [address] [place] [address] documented as of this encounter Visit Diagnoses Not on filedocumented in this encounter Care Teams Senior Field Service Engineer Relationship Specialty Start Date End Date Nivia Tinsley MD [address] [place] [address] PCP - General Family Medicine - Primary Care 08/27/19 Zheng Tapia MD [address] [place] [address] [address] [place] [address] Internal Medicine - Primary Care 09/01/19 Shazia Burks MD [address] [place] [address] Neurology 09/01/19 Tony Baron OD [address] [place] [phone] Refractory Products Supervisor 09/01/19 Keira Paniagua MD [address] [place] [phone] Cardiovascular Disease 09/06/20 Siva Perkins MD [address] [place] [address] [place] [address] Neurology 09/06/20 documented as of this encounter
--- OUTSIDE RECORDS SUMMARY | 2024-04-29 18:18 | XMS_ITS | Encounter Summary ---
Author Organization [facility] Address [address] [place] [address] Care Team Providers Care Actuarial Technician Name Role Phone Nivia Tinsley MD Primary Care Provider [phone] Zheng Tapia MD Unavailable Shazia Burks MD Unavailable [phone] Tony Baron OD Unavailable [phone] Keira Paniagua MD Unavailable [phone] Siva Perkins MD Unavailable [phone] Encounter Details Date Type Department Care Team (Latest Contact Info) Description 08/03/2022 Travel Social History Tobacco Use Types Packs/Day [...] like food, housing, medical care, and heating? Very hard 12/26/2021 PHQ-2 Answer Date Recorded PHQ-2 SUBTOTAL 2 04/10/2022 Hunger Vital Sign Answer Date Recorded Within the past 12 months, y ou worried that your food would run out before you got the money to buy more. Never true 12/27/19 22 Within the past 12 months, t he food you bought just didn't last and you didn't have money to get more. Never true 12/26/2021 PRAPARE - Transportation Answer Date Re corded In the past 12 months, has l ack of transportation kept you from medical appointments or from getting medications? Yes 11/30 In the past 12 months, has l ack of transportation kept you from meetings, work, or from getting things needed for daily living? Yes 12/26/2021 Housing Stability Vital Sign Answer Kenney e Recorded In the last 12 months, was t here a time when you were not able to pay the mortgage or rent on time? Yes 12/26/2021 In the last 12 months, how many places have you lived? 1 12/26/2021 In the last 12 months, was t here a time when you did not have a steady place to sleep or slept in a prison (including now)? No 12/26/2021 Interpersonal Safety Answer Date Record ed How often does anyone, kalani doshi family, hit, punch or physically hurt you? Never 12/26/2021 How often does anyone, kalani odshi family, insult, scream, curse or threaten to [...] suspected to have Coronavirus/COVID-19? No / Unsure 08/03/2022 10:44 EDT documented as of this encounter Functional [...] 06/11/2024 12:45 EDT Office Visit [facility] Ophthalmology - [address] [phone] Santiago Anthony MD [address] [place] [address], [facility] 5 [place] [address] 07/15/2024 10:45 EDT Office Visit [facility] Cardiology Clinic [address] [place], [place] [phone] Gianfranco Flowers MD 130 [facility] [address] [place] [phone] documented as of this encounter Visit Diagnoses Not on filedocumented in this encounter Care Teams Actuarial Technician Relationship Specialty Start Date End Date Nivia Tinsley MD [address] [place] [phone] PCP - General Family Medicine - Primary Care 08/27/19 Zheng Tapia MD [address] [place] [address] [address] [place] [address] Internal Medicine - Primary Care 09/01/19 Shazia Burks MD [address] [place], [place] [address] Neurology 09/01/19 Tony Baron OD [address] [place] [phone] Safety Coordinator 09/01/19 Keira Paniagua MD [address] [place] [phone] Cardiovascular Disease 09/06/20 Siva Perkins MD 1200 [facility] [place] [address] Neurology 09/06/20 documented as of this encounter
--- OUTSIDE RECORDS SUMMARY | 2024-04-29 18:18 | XMS_ITS | Encounter Summary ---
Author Organization [facility] Address [address] [place] [address] Care Team Providers Care Network Associate Name Role Phone Nivia Tinsley MD Primary Care Provider Zheng Tapia MD Unavailable Shazia Burks MD Unavailable [phone] Tony Baron OD Unavailable [phone] Keira Paniagua MD Unavailable [phone] Siva Perkins MD Unavailable [phone] Reason for Visit * Reason Comments Eye Problem Wet AMD Left eye Encounter Details Date Type Department Care Team (Late st Contact Info) Description 09/13/2022 8:45 EST Office Visit [facility] Ophthalmology [facility] [address] [place], [place] [id number] Santiago Anthony MD [address] [facility], [facility] [address] [place] [address] Social History Tobacco Use Types [...] [place] [facility] No 12/26/2021 Interpersonal Safety Answer [...] Progress Notes * Santiago Anthony MD - 09/13/2022 0845 EST Chief Complaint Patient presents with ??? Eye Problem Wet AMD Left eye Comments Eye Problem Additional comments: Wet AMD Left eye HPI Location: Pain: 0 - No pain Quality: Severity: Duration: Timing: Lasts: Context: Wet AMD - Left eye. S/p Eylea Left 07/12/22. She reports the vision is getting worse. No new floaters, flashes or pain in the eyes. Modifying factors: Associated Signs & Symptoms: Visual Fluctuations: None Attestation: Base Eye Exam Visual Acuity (Snellen - Linear) Right Left Dist cc 20/400 20/300 -1 Dist ph cc NI NI Tonometry (Applanation, 9:27) Right Left Pressure 18 16 Pupils Pupils Dark APD Right PERRL 3 None Left PERRL 3 None Neuro/Psych Oriented x3: Yes Mood/Affect: Normal Dilation Both eyes: Tropicamide 1% @ 9:28 Slit Lamp and Fundus Exam Slit Lamp Exam Right Left Lids/Lashes Normal Normal Conjunctiva/Sclera White and quiet White and quiet Cornea Clear Clear Anterior Chamber Deep and quiet Deep and quiet Iris Transillumination defects, Pseudoexfoliation material Pseudoexfoliation material, Transillumination defects Lens Posterior chamber intraocular lens Posterior chamber intraocular lens Fundus Exam Right Left Disc increase c/d increase c/d Macula RPE changes, prominent choroidal pattern RPE changes, prominent choroidal pattern Periphery blond fundus blond fundus All five layers of the cornea are normal unless otherwise specified. Please refer to large retinal drawing. OCT, Retina - OU - Both Eyes Right Eye Quality was poor. Findings include (Atrophic). Left Eye Quality was good. Findings include (Atrophic with cystic change ). IMPRESSION: 1. Exudative age-related macular degeneration of left eye, unspecified stage (HCC) OCT, RETINA - OU- BOTH EYES 2. Albinism (HCC) 3. Nystagmus PLAN: Wet age related macular degeneration left eye 9 weeks s/p Eylea left eye Discussed the option of stopping the injections vs continuing with the treatment. Unknown how much benefit that she is getting from the injections with her underlying eye conditions. We can always restart treatment if she notices a changes or her vision worsens at the next visit. Risk and benefits discussed about stopping treatment Patient understands and wishes to hold No injection done today in the left eye Will have her return sooner than her scheduled 12 weeks appointment, will see her back in 8 weeks instead. Albinism with secondary nystagmus She has had a history of Longstanding poor vision I think this is her limiting factor in terms of vision elizabeth given nystagmus seen Nystagmus Monitor Follow up in 8 weeks for possible Eylea left eye, OCT or PRN Pt and senior teradata developer are comfortable with plan as above I, Dr. Santiago Anthony, have performed my own HPI and reviewed the tech's ROS. I have also reviewed thepatient's past medical, family, social and surgical history, as well as the patient's medications, allergies, and problem list. I am scribing for Dr. Santiago Anthony MD while he is personally performing the service. WILMER Graham (Scribe) documented in this encounter Plan of Treatment Upcoming Encounters Date Type Department Care Team (Late st Contact Info) Description 06/11/2024 12:45 EDT Office Visit [facility] Ophthalmology [facility] [address] [place], [place] [id number] Santiago Anthony MD [address] [place] [address], [facility] [address] [place] [address] 07/15/2024 10:45 EDT Office [place] [facility] [place] [facility] [address] [place] [address] Gianfranco Flowers MD [address] [facility] [address] [address] [place] [address] documented as of this encounter Procedures Procedure Name Priority Date/Time Associated Diagnosis Comments OCT, RETINA - OU - BOTH EYES Routine 09/13/2022 9:35 EST Exudative age-related macular degeneration of left eye, unspecified stage ([facility]) documented in this encounter Results * OCT, RETINA - OU - BOTH EYES (09/13/2022 9:35 EST) Narrative [facility] OPHTHALMOLOGY - 09/13/2022 10:19 EST Right Eye Quality was poor. Findings include (Atrophic). Left Eye Quality was good. Findings include (Atrophic with cystic change ). Satniago Anthony MD OPHTH TOMOGRAPHY [facility] OPHTHALMOLOGY documented in this encounter Visit Diagnoses Diagnosis Exudative age-related macular degeneration of left eye, unspecified stage (HCC-CMS)- Primary Albinism ([facility]-CMS) Other disturbances of aromatic amino-acid metabolism Nystagmus Nystagmus, unspecified documented in this encounter Eye Exam Visual Acuity (Snellen - Linear) Right eye Left eye Dist cc 20/400 20/300 -1 Dist ph cc NI NI Tonometry (Applanation, 9:27) Right eye Left eye Pressure 18 16 Pupils Pupils Dark APD Right eye PERRL 3 None Left eye PERRL 3 None Neuro/Psych Oriented x3: Yes Mood/Affect: Normal Dilation Both eyes: Tropicamide 1% @ 9:28 Slit Lamp Exam Right eye Left eye Lids/Lashes Normal Normal Conjunctiva/Sclera White and quiet White and russel et Cornea Clear Clear Anterior Chamber Deep and quiet Deep and quiet Iris Transillumination de fects, Pseudoexfoliation material Pseudoexfoliation material, Transillumination defects Lens Posterior chamber in traocular lens Posterior chamber intraocular lens Fundus Exam Right eye Left eye Disc increase c/d increase c/d Macula RPE changes, promine nt choroidal pattern RPE changes, prominent choroidal pattern Periphery blond fundus blond fundus Care Teams Network Associate Relationship Specialty Start Date End Date Nivia Tinsley MD [address] [place] [id number] PCP - General Family Medicine - Primary Care 08/27/19 Zheng Tapia MD [address] [place] [address] [address] [place] [address] Internal Medicine - Primary Care 09/01/19 Shazia Burks MD [address] [place] [address] Neurology 09/01/19 Tony Baron, OD [address] [place] [id number] Metal [employer] 09/01/19 Keira Paniagua MD [address] [place] [address] [address] [place] [phone] Cardiovascular Disease 09/06/20 Siva Perkisn MD [address] [place] [phone] Neurology 09/06/20 documented as of this encounter
--- OUTSIDE RECORDS SUMMARY | 2024-04-29 18:18 | XMS_ITS | Encounter Summary ---
Author Organization [facility] Address [address] [place] [address] Care Team Providers Care Tank Car Cleaner Name Role Phone Nivia Tinsley MD Primary Care Provider [phone] Zheng Tapia MD Unavailable Shazia Burks MD Unavailable [phone] Tony Baron OD Unavailable [phone] Keira Paniagua MD Unavailable [phone] Siva Perkins MD Unavailable [phone] Reason for Referral * Consult (Routine/Next Available) - Authorization Not Required Specialty Diagnoses / Procedures Referred By Lesa t Referred To Contact Otolaryngology Diagnoses Decreased hearing of both ears Nivia Tinsley MD [address] [place] [id number] [facility] Referral ID Status Reason Start Date Expiration Date Visits Requested Visits Authorized [id number] Authorization Not Required Specialty Services Required 01/31/2023 1 1 Question Answer Reason for Referral: Comprehensive Hearing Eval Reason for Visit * Reason Comments Annual Exam Discuss: more tired than she should be Encounter Details Date Type Department Care Team (Latest Contact Info) Description 01/31/2023 11:15 EDT Office Visit [facility] [address] [place] [address] Nivia Tinsley MD [address] [place] [address] Encounter for annual wellness exam in Medicare patient (Primary Dx); Need for vaccination; Encounter for lipid screening for cardiovascular disease; Diabetes mellitus type 2, noninsulin dependent ([facility]); Nocturia; Decreased hearing of both ears Social History Tobacco Use Types Packs/Day Years [...] 11:05 EDT documented as of this encounter Last Filed Vital Signs Vital Sign Reading Time Taken Comments Blood Pressure 130/70 01/31/2023 1126 EDT Pulse 72 01/31/2023 1126 EDT Temperature - - Respiratory Rate - - Oxygen Saturation 97% 01/31/2023 1126 EDT Inhaled Oxygen Concentration - - Weight 72.1 kg (159 lb) 01/31/2023 1126 EDT Height 165.1 cm (5' 5) 01/31/2023 1126 EDT Body Mass Index 26.46 01/31/2023 1126 EDT documented in this encounter Functional Status [...] Dispensed Refills Start Date End Da te zoster vaccine recombinant, PF, (SHINGRIX) IM Injection - vialIndications:Need for vaccination Inject 0.5 mL into the muscle Once for 1 dose. Repeat in 2 months 1 Each 1 01/31/2023 07/26/2023 documented in this encounter Progress Notes * Mark Major MA - 01/31/2023 1115 EDT Primary Care Medicare Annual Wellness Visit - Subsequent (only updates are needed) Assessment & Plan Diagnoses and all orders for this visit: Encounter for annual wellness exam in Medicare patient - POCT HEMOGLOBIN A1C - LIPID PROFILE (INCLUDES CHOLESTEROL, TRIGLYCERIDES, HDL, LDL) Need for vaccination - zoster vaccine recombinant, PF, (SHINGRIX) IM Injection - vial Encounter for lipid screening for cardiovascular disease - LIPID PROFILE (INCLUDES CHOLESTEROL, TRIGLYCERIDES, HDL, LDL) Diabetes mellitus type 2, noninsulin dependent (HCC-CMS) (HCC) - POCT HEMOGLOBIN A1C - COMPREHENSIVE METABOLIC PANEL (CMP) - HEMOGLOBIN A1C Nocturia - POCT URINE DIPSTICK, VISUAL READ - URINE ACAZKIM-DF-VINPQVDKLI RATIO (ACR) Decreased hearing of both ears - AMB CONS/FOLLOW UP AUDIOLOGY Other orders - zldvtyav-nsnnymyxx-wjcjsvhiaeklu (MAXITROL) 3.5mg/mL-10,000 unit/mL-0.1 % ophthalmic suspension Return in about 1 year (around 02/01/2024) for AWV. Written Health Plan in patient instructions:Yes Patient education was direct. Barriers were assessed and addressed as needed. Alley Hylton is a 82 y.o. female presenting with Annual Exam (Discuss: more tired than she should be ) . HPI Patient self-assessment questionnaire completed, reviewed, and scanned: Yes Full history done with PMH, PSH, SH, FH, ROS. The patient's problem list, past medical/surgical history, medications, allergies, family and social history were all updated and reviewed. Done: Yes Is patient currently on opioids? No (If yes, please address treatment plan.) Diet reviewed: healthy - no recommendations Level of activity: sedentary Home Safety: smoke detectors, CO detectors, hand rails, no trip hazards and adequate lighting Hearing: grossly normal Vision: assessed: Yes: sees ornamental rail installer or knife machine operator regularly Functional Evaluation completed Behavioral Health Screen Reviewed: Yes ADLs: impaired: self care, food preparation and ambulation Cognitive Assessment: No concerns Advance Directives: Advance Directive on file Behavioral Health Screen Summary Interpretation PHQ-2: 0 PHQ-9: JASEN-2: JASEN-7: SASQ: Never AUDIT-10: SSASQ: Never DAST-10: . BHS Intervention: Negative screen - no intervention indicated Treating providers: Patient Care Team: Nivia Tinsley MD as PCP - General (Family Medicine - Primary Care) Zheng Tapia MD (Internal Medicine - Primary Care) Shazia Burks MD (Neurology) Tony Baron OD (Mixing Technician) Keira Paniagua MD (Cardiovascular Disease) Siva Perkins MD (Neurology) Review of Systems - See HPI Objective BP 130/70 (BP Cuff Location: Left arm, BP Patient Position: Sitting, BP Cuff Sizes: Adult, regular) Pulse 72 Ht 165.1 cm (65) Wt 72.1 kg (159 lb) SpO2 97% BMI 26.46 kg/m?? Physical Exam FALLS RISK REVIEW 01/31/2023 Get Up and Go Test Multiple attempts, but successful Patient or Family Have Concerns Yes Patient Uses an Assistive Device Yes Assistive Device Used wheelchair walker Previous Fall Within the Past 12 Months Yes Number of Falls in Past 12 Months 2 Falls in the Past 12 Months Required Medical Attention Yes Anti-Hypertensive on Active Medication List Yes Considered at High Risk for Falls Yes Fall Risk Screening Completed Yes Some recent data might be hidden * Nivia Tinsley MD - 01/31/2023 1115 EDT Images from the original note were not included. [facility] Primary Care Medicare Annual Wellness Visit Patient is here for their annual wellness visit, for Medicare beneficiaries as part of Medicare Part B, and intended to promote health, detect disease, and address overall health needs related to theMedicare patient. The patient is a 82 y.o. female retiree. The patient is single and lives with caregiver who is there intermittently. She has had some nocturia. Patient questionnaire completed and reviewed: Yes. Advance Directives: has an advanced directive - a copy has been provided. Updated list of treating providers: Dermatology, Cardiology, Ophthalmology and dentist Written Health Plan in patient instructions: Yes. Additional History: Diabetes Mellitus Type 2: Adherence to medication and diet are good. Home glucose monitoring: checks BS not checking. Denies more than 1 hypoglycemic episode. Denies excessive polyuria or polydipsia. Sees Dentist Every 6 months (last visit:11/2022) and has eye exams yearly (last visit:02/07/23). Is taking ASA. On BLAYNE/ARB. Hadfoot exam recently (01/31/2023). Flu shot annually. Pneumococcal vaccine UTD. Last Hemoglobin A1c: No results found for: [id number], Lab Results Component Value Date HGBA1C 6.0 (A) 08/03/2022 Last microalbumin: Lab Results Component Value Date/Time LABALBU 4.0 02/21/2022 06:38 HTN: Monitoring: not checking, Med adherence: good. No CP, leg edema, or SOB. Hyperlipidemia: Labs done 11/12/2021, on medication, no CP. She is due for the labs. The patient's allergies, past medical history, family history and social history were reviewed and updated in the EMR on 01/31/2023. Chart reviewed for current providers and suppliers regularly involved in the patient's care. Patient's primary caregiver: self or private caregiver. Patient Active Problem List Diagnosis ??? Cerebral atherosclerosis ??? Gastro-esophageal reflux disease without esophagitis ??? Hyperlipidemia ??? Hypertension ??? Hypothyroidism, unspecified ??? Shuffling gait ??? Vitamin D deficiency ??? 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 Basilar artery stenosis/occlusion with infarction ([facility]) ??? Decreased visual acuity ??? NSTEMI (non-ST elevated myocardial infarction) ([facility]) ([facility]) ??? ARMD (age related macular degeneration) ??? ARMD (age related macular degeneration) ??? S/P coronary artery stent placement ??? ACC/AHA stage C heart failure with preserved ejection fraction (HCC-CMS) ([facility]) ??? Diabetes mellitus type 2, noninsulin dependent (HCC-CMS) (HCC) ??? Chronic total occlusion of coronary artery ??? Dependence on wheelchair ??? Mixed incontinence ??? Muscle weakness (generalized) ??? Prediabetes ??? Pure hypercholesterolemia, unspecified ??? Unspecified visual loss ??? Generalized weakness ??? Forehead laceration, initial encounter ??? Vomiting and diarrhea ??? Exudative age-related macular degeneration of left eye (HCC) (HCC-CMS) ??? Nystagmus Current Outpatient Medications: ??? acetaminophen (TYLENOL) 325 mg capsule, Take by mouth 2 times daily., Disp: , Rfl: ??? aspirin chewable 81 mg tablet, CHEW AND SWALLOW 1 TABLET BY MOUTH ONCE DAILY, Disp: 30 Tablet, Rfl: 11 ??? atorvastatin (LIPITOR) 40 mg tablet, Take 1 Tablet by mouth at bedtime., Disp: 30 Tablet, Rfl: 11 ??? carvediloL (COREG) 3.125 mg tablet, Take 1 Tablet by mouth 2 times daily with breakfast and dinner., Disp: 180 Tablet, Rfl: 3 ??? cholecalciferol, Vitamin D3, 25 mcg (1,000 unit) tablet, Take 1,000 Units by mouth daily., Disp: , Rfl: ??? hypromellose (ISOPTO TEARS) 0.5 % ophthalmic solution, Place 1 Drop into both eyes as needed., Disp: , Rfl: ??? levothyroxine (SYNTHROID) 100 mcg tablet, Take 1 Tablet by mouth daily., Disp: 30 Tablet, Rfl: 11 ??? losartan (COZAAR) 100 mg tablet, 1 tab(s) orally once a day, Disp: 30 Tablet, Rfl: 11 ??? medical supply, miscellaneous (W[employer] ACCESSORY MISC), with seat, basket under the seat and breaks as directed dx: Abnormal gait and legally blind daily, Disp: , Rfl: ??? meloxicam (MOBIC) 7.5 mg tablet, Take 1 Tablet by mouth daily. Take with a meal and monitor forbleeding, Disp: 30 Tablet, Rfl: 0 ??? lrjykhzo-djotiqurv-kqgeaivlukxyp (MAXITROL) 3.5mg/mL-10,000 unit/mL-0.1 % ophthalmic suspension, INSTILL 1 DROP TO BOTH EYES THREE TIMES A DAY, Disp: , Rfl: ??? nitroglycerin (NITROSTAT) 0.4 mg SL tablet, Place 1 Tablet under the tongue every 5 minutes as needed for Chest Pain., Disp: 30 Tablet, Rfl: 0 ??? triamcinolone (KENALOG) 0.1 % cream, Apply topically to affected area 2 times daily. For up to 2 weeks to rash on legs and neck. Do not apply to face, armpit or groin., Disp: 60 g, Rfl: 3 ? ? vit A,C & X-lvmyzb-stbfnbfy (OCUVITE) 300 mcg-200 mg-27 mg-2 mg tablet, Take 1 tab by mouthdaily, Disp: 30 Tablet, Rfl: 11 ??? zoster vaccine recombinant, PF, (SHINGRIX) IM Injection - vial, Inject 0.5 mL into the muscle Once for 1 dose. Repeat in 2 months, Disp: 1 Each, Rfl: 1 No current facility-administered medications for this visit. Facility-Administered Medications Ordered in Other Visits: ??? [] aflibercept (EYLEA) intravitreal syringe 2 mg, 2 mg, intravitreal, , Santiago Anthony MD, 2 mg at 07/12/22 0830 Taking adequate Multivitamin, Calcium & Vitamin D supplements? Yes. Immunization History Administered Date(s) Administered ??? Covid-19 mRNA Vaccine (PFIZER COVID-19) PF 0.3 ml IM (12 yrs+) 11/10/2020, 12/27/2020, 07/25/2021, 02/13/2022 ??? Influenza Vaccine High Dose (FLUZONE HIGH DOSE) PF 0.7 ml IM (65 yrs+) 07/13/2017, 08/12/2018, 08/02/2020, 07/14/2021, 07/21/2022 ??? Influenza Vaccine Pediatric Quad (AFLURIA PEDIATRIC) PF 0.25 ml IM (6-35 mos) 07/10/2016 ??? Pneumococcal Conjugate Vaccine 13-Valent (PCV13) (PREVNAR-13) 0.5 mL IM (6 wks+) 06/01/2017 ? ? Pneumococcal Polysaccharide (PPSV23) Vaccine (PNEUMOVAX-23) =>2YO SQ/IM 03/06/2016 ? ? Tdap Vaccine =>7YO IM 09/03/2017 Behavioral Health Screen PHQ-2 Little interest or pleasure in doing things?: Not at all Feeling down, depressed, or hopeless?: Not at all PHQ-2 SUBTOTAL: 0 PHQ-9 JASEN-7 ; SASQ How many times in the past year have you had 4 or more drinks in a single day?: Never AUDIT-10 Prescription Misuse How many times in the past year have you used an illegal drug or used a prescription medication fornon-medical reasons?: Never DAST-10 Is your memory relatively stable in the last year? Yes. Diet: healthy diet in general. Appetite: stable. Level of activity: sedentary. Functional Evaluation completed Vision: vision loss and wears glasses ADLs: impaired: self care, food preparation, ambulation and driving. Cognitive: grossly intact memory based on in-office exam and [place] Mini Cog score: 5/5 Fall Risk: FALLS RISK REVIEW 01/31/2023 Get Up and Go Test Multiple attempts, but successful Patient or Family Have Concerns Yes Patient Uses an Assistive Device Yes Assistive Device Used wheelchair walker Previous Fall Within the Past 12 Months Yes Number of Falls in Past 12 Months 2 Falls in the Past 12 Months Required Medical Attention Yes Anti-Hypertensive on Active Medication List Yes Considered at High Risk for Falls Yes Fall Risk Screening Completed Yes Some recent data might be hidden Home Safety: smoke detectors, CO detectors, hand rails, no trip hazards and adequate lighting ROS: Review of Systems HENT: Positive for hearing loss. I reviewed the patient's functional ability and level of safety by direct observation including assessing their hearing, ability to perform ADLs, fall risk, and home safety and find no problems unless otherwise stated. I reviewed behavioral risks including tobacco use, physical activity, nutrition,oral health, alcohol consumption, sexual practices and motor vehicle safety. I reviewed the patient's Medicare Total Health Assessment and addressed these issues. Examination: Vitals: BP 130/70 (BP Cuff Location: Left arm, BP Patient Position: Sitting, BP Cuff Sizes: Adult, regular) Pulse 72 Ht 165.1 cm (65) Wt 72.1 kg (159 lb) SpO2 97% BMI 26.46 kg/m?? Body mass index is 26.46 kg/m??. Physical Exam Vitals and nursing note reviewed. Constitutional: Appearance: Normal appearance. Cardiovascular: Rate and Rhythm: Normal rate and regular rhythm. Heart sounds: Normal heart sounds. No murmur heard. No friction rub. No gallop. Pulmonary: Effort: Pulmonary effort is normal. No respiratory distress. Breath sounds: No wheezing, rhonchi or rales. Musculoskeletal: Cervical back: Neck supple. Feet: Right foot: Protective Sensation: 10 sites tested. 10 sites sensed. Skin integrity: No ulcer, blister, skin breakdown, erythema, warmth, callus, dry skin or fissure. Left foot: Protective Sensation: 10 sites tested. 10 sites sensed. Skin integrity: No ulcer, blister, skin breakdown, erythema, warmth, callus, dry skin or fissure. Neurological: General: No focal deficit present. Mental Status: She is alert and oriented to person, place, and time. Mental status is at baseline. Psychiatric: Mood and Affect: Mood normal. Behavior: Behavior normal. Thought Content: Thought content normal. Judgment: Judgment normal. I assessed cognitive function by direct observation and find no problem unless otherwise stated. I assessed for depression using PHQ-2 and addressed as appropriate. Assessment & Plan: 1. Encounter for annual wellness exam in Medicare patient POCT HEMOGLOBIN A1C LIPID PROFILE (INCLUDES CHOLESTEROL, TRIGLYCERIDES, HDL, LDL) 2. Need for vaccination zoster vaccine recombinant, PF, (SHINGRIX) IM Injection - vial 3. Encounter for lipid screening for cardiovascular disease LIPID PROFILE (INCLUDES CHOLESTEROL, TRIGLYCERIDES, HDL, LDL) 4. Diabetes mellitus type 2, noninsulin dependent (HCC-CMS) (FORMERLY [facility]) POCT HEMOGLOBIN A1C COMPREHENSIVE METABOLIC PANEL (CMP) HEMOGLOBIN A1C 5. Nocturia POCT URINE DIPSTICK, VISUAL READ URINE SEREWIM-OG-GRHUAHCBEY RATIO (ACR) 6. Decreased hearing of both ears AMB CONS/FOLLOW UP AUDIOLOGY Diet and exercise were reviewed. The patient has received their preventive health prompt and preventive health plan with registration materials that is personalized for age, sex, and chronic conditions. Medical or community referrals made as needed for fall prevention, Nutrition, physical activity programs, tobacco-use cessation, weight loss, and cognition issues as needed. Additional Plans: see above. Significant, separately, identifiable E/M service by the same Provider on the same day of the procedure or service. [Modifier 25] Return in about 1 year (around 02/01/2024) for AWV. Nivia Tinsley MD * Mark Major MA - 01/31/2023 1115 EDT Site collected l middle Reason: See assessment code. Ordering Provider Dustin Tinsley MD. Patient tolerated procedure well. POCT A1C error-hemoglobin a1c to low. Dr. Tinsley ordered a future Hemoglobin a1c lab collect. documented in this encounter Miscellaneous Notes * Result Encounter Note - Nivia Tinsley MD - 01/31/2023 1115 EDT Okay to notify the patient that her blood sugar results are stable. * Addendum Note - Mark Major MA - 01/31/2023 1115 EDTAddended by: MARK MAJOR on: 01/31/2023 16:45 Modules accepted: Orders documented in this encounter Plan of Treatment Upcoming Encounters Date Type Department Care Team (Late st Contact Info) Description 06/11/2024 12:45 EDT Office Visit [facility] Ophthalmology - [address] [address] Santiago Anthony MD [address] [place] [address], [address] [place] [address] 07/15/2024 10:45 EDT Office Visit [facility] Cardiology Clinic [address] [place] [address] Gianfranco Flowers MD [address] [facility] [address] [place] [address] Scheduled Orders Name Type Priority Associated Diagnoses Orde r Schedule POCT URINE DIPSTICK, VISUAL READ Point of Care Testing Routine Nocturia Ordered: 01/31/2023 Scheduled Referrals Name Type Priority Associated Diagnoses Order Schedule AMB CONS/FOLLOW UP AUDIOLOGY Outpatient Referral Routine/Next Available Decreased hearing of both ears Expected: 03/03/2023 (Approximate), Expires: 02/01/2024 documented as of this encounter Procedures Procedure Name Priority Date/Time Associated Diagnosis Comments HEMOGLOBIN A1C Routine 07/16/2023 8:48 EDT Diabetes mellitus type 2, noninsulin dependent (HCC-CMS) documented in this encounter Results * (ABNORMAL) HEMOGLOBIN A1C (07/16/2023 8:48 EDT) Hemoglobin A1c 6.3(H) <5.7 % 07/16/2023 11:51 EDT [facility] Comment: Glycemic Status References: Normal: ??<5.7% Pre-Diabetes: ??5.7% - 6.4% Diagnostic of Diabetes: ??> or = 6.5% (if confirmed) Est Avg Glucose 134 mg/dL 11:51 EDT [facility] Comment:The eAG represents t he A1c result expressed as average glucose in mg/dL. Blood VENOUS BLOOD / Unknown Venipuncture / Unknown 07/16/2023 8:48 EDT 07/16/2023 9:26 EDT Nivia Tinsley MD CHEMISTRY & BLOOD G ORDERABLES [facility] [address] [place] [address] * (ABNORMAL) COMPREHENSIVE METABOLIC PANEL (CMP) (07/16/2023 8:48 EDT) Sodium 134(L) 136 - 145 mmol/L 07/16/2023 9:59 EDT [facility] Potassium 4.4 3.5 - 5.0 mmol/L 07/16/2023 9:59 EDT [facility] Chloride 99 96 - 110 mmol/L 07/16/2023 9:59 [facility] CO2 Total 25 22 - 32 mmol/L 07/16/2023 9:59 [facility] Glucose 129(H) 70 - 99 mg/dl 07/16/2023 9:59 [facility] BUN 16 10 - 26 mg/dL 07/16/2023 9:59 [facility] Creatinine 0.75 0.52 - 1.04 mg/dL 07/16/2023 9:59 [facility] eGFR 78 >60 mL/min/1.7 3m2 07/16/2023 9:59 [facility] Total Protein 7.1 6.3 - 8.2 g/dL 07/16/2023 9:59 [facility] Albumin 4.3 3.4 - 4.9 g/dL 07/16/2023 9:59 [facility] Alkaline Phosphatase 106 38 - 126 U/L 07/16/2023 9:59 [facility] AST 20 15 - 46 U/L 07/16/2023 9:59 [facility] ALT 24 <35 U/L 07/16/2023 9:59 [facility] Bilirubin, Total 0.9 <1.4 mg/dL 07/16/20 9:59 [facility] Calcium 9.4 8.5 - 10.5 mg/dL 07/16/2023 9:59 [facility] Albumin/Globulin Ratio 1.5 1.0 - 2.5 g/dL 07/16/2023 9:59 [facility] Anion Gap 10 5 - 14 mmol/L 07/16/2023 9:59 [facility] Blood VENOUS BLOOD / Unknown Venipuncture / Unknown 07/16/2023 8:48 EDT 07/16/2023 9:26 EDT Nivia Tinsley MD CHEMISTRY & BLOOD G ORDERABLES [facility] [address] [place] [address] * (ABNORMAL) LIPID PROFILE (INCLUDES CHOLESTEROL, TRIGLYCERIDES, HDL, LDL) (07/16/2023 8:48 EDT) Cholesterol 207(H) <200 mg/dL 07/16/2023 10:16 EDT [facility] Comment:Note that therapeuti c goals will differ between patients based on cardiac risk factors and current medical therapy. HDL 32(L) >=50 mg/dl 07/16/2023 10:16 EDT [facility] Comment:Note that therapeuti c goals will differ between patients based on cardiac risk factors and current medical therapy. LDL, Calculated 10:16 [facility] Comment: Note that therapeutic goals will differ between patients based on cardiac risk factors and current medical therapy. Calculated LDL invalid, triglycerides >400 mg/dL Direct LDL measurement added by reflex. Triglyceride 644(H) <=150 mg/dL 07/16/2023 10:16 T [facility] Comment:Note that therapeuti c goals will differ between patients based on cardiac risk factors and current medical therapy. Chol/HDL Ratio 6.5 See Note 07/16/2023 10:16 [facility] Comment: NOTE: Desirable Ratio = <4.1 Patient At Risk Ratio = >5.0(Males) ?>6.0(Females) Non HDL Cholesterol 175(H) <160 mg/dL 07/16/2023 10:16 T [facility] Comment:Note that therapeuti c goals will differ between patients based on cardiac risk factors and current medical therapy. Blood VENOUS BLOOD / Unknown Venipuncture / Unknown 07/16/2023 8:48 EDT 07/16/2023 9:26 EDT Nivia Tinsley MD CHEMISTRY & BLOOD G ORDERABLES [facility] [address] [place] [address] documented in this encounter Visit Diagnoses Diagnosis Encounter for annual wellness exam in Medicare patient- Primary Need for vaccination Need for prophylactic vaccination and inoculation against unspecified single disease Encounter for lipid screening for cardiovascular disease Screening for lipoid disorders Diabetes mellitus type 2, noninsulin dependent (HCC-CMS) Type II or unspecified type diabetes mellitus without mention of complication, not stated as uncontrolled Nocturia Decreased hearing of both ears documented in this encounter Historical Medications * This list may reflect changes made after this encounter. Medication Sig Dispensed Refills Start Date End Date lbkvuwqp-waheixivg-yalqmhjcdruat (MAXITROL) 3.5mg/mL-10,000 unit/mL-0.1 % ophthalmic suspension 01/19/2023 added in this encounter Care Teams Tank Car Cleaner Relationship Specialty Start Date End Date Nivia Tinsley MD [address] [place] [phone] PCP - General Family Medicine - Primary Care 08/27/19 Zheng Tapia MD [address] [place] [address] [address] [place] [address] Internal Medicine - Primary Care 09/01/19 Shazia Burks MD [address] [place] [address] Neurology 09/01/19 Tony Baron OD [address] [place] [phone] Mixing Technician 09/01/19 Keira Paniagua MD [address] [place] [address] [address] [place] [address] Cardiovascular Disease 09/06/20 Siva Perkins MD [address] [place] [id number] Neurology 09/06/20 documented as of this encounter
--- OUTSIDE RECORDS SUMMARY | 2024-04-29 18:18 | XMS_ITS | Encounter Summary ---
Author Organization [facility] Address [address] [place] [address] Care Team Providers Care Buildings And Grounds Coordinator Name Role Phone Nivia Tinsley MD Primary Care Provider Zheng Tapia MD Unavailable Shazia Burks MD Unavailable [phone] Tony Baron OD Unavailable [phone] Keira Paniagua MD Unavailable [phone] Siva Perkins MD Unavailable [phone] Reason for Visit * Reason Comments Telemedicine Phone Call CAD Encounter Details Date Type Department Care Team (Late st Contact Info) Description 11/13/2022 10:45 EST Telemedicine [facility] [address] [place] [address] Gianfranco Flowers MD 130 [facility] [address] [place] [address] S/P coronary artery stent placement (Primary Dx); Coronary artery disease involving takotna coronary artery of takotna heart without angina pectoris; Dyslipidemia; Chronic fatigue Social History Tobacco Use Types Packs/Day Years [...] slept in a longterm (including now)? No 12/26/2021 Interpersonal Safety Answer [...] Dispensed Refills Start Date End Da te carvediloL (COREG) 3.125 mg tablet Take 1 Tablet by mouth 2 times daily with breakfast and dinner. 180 Tablet 3 11/13/2022 10/11/2023 documented in this encounter Progress Notes * Gianfranco Flowers MD - 11/13/2022 1045 EST [facility] CARDIOLOGY TELEMEDICINE VISIT Date of Service: 11/13/2022 Today's visit was conducted by telephone. The concept of ???Telemedicine?? has been described to the patient. Patient has been informed of the anticipated benefits and possible risks. Patient understands the information provided regarding telemedicine, has had the opportunity to ask questions about this information, and all questions havebeen answered to patient???s satisfaction. Patient consents for the use of telemedicine in his/her medical care and authorizes the transmission of any relevant medical information to providers and their staff involved in patient???s medical or mental health care. Verbal consent was obtained by myself or auxiliary staff: yes. I have determined that an audio-only visit is appropriate due to: Physical exam not indicated basedon available information Reason for Visit: S/P coronary artery stent placement [Z95.5] ASSESSMENT/PLAN 1. NSTEMI s/p LAD PCI 11/2021. 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 No angina - Stop Plavix - ASA and statin livelong - BB for at least 3 years - given fatigue will reduce Coreg by 50 % 2. DLP. Fair lipid profile at time of ME (non-HDL 133). - if non-HDL > 100 at next assessment, add Zetia or switch to rosuvastatin 40 mg daily Follow-up 6 months, no testing SUBJECTIVE Concetta Sullivan, 1940 82 y.o. 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 Concetta Sullivan continues to fatigued. This preceded her 11/2021 hospitalization. Due to impaired vision following CVA she cannot determine if GI or bleed. She denies exertional SOB or CP. Past Surgical History: Procedure Laterality Date ??? COLONOSCOPY 01/2007 moderate diffuse diverticuli discussed with Dr. Tapia and declines further testing ??? CORONARY ANGIOPLASTY WITH STENT PLACEMENT 11/2021 LAD PCI. 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 EYE SURGERY Current Outpatient Medications Medication ??? acetaminophen (TYLENOL) 325 mg capsule ??? aspirin chewable 81 mg tablet ??? atorvastatin (LIPITOR) 40 mg tablet ??? carvediloL (COREG) 6.25 mg tablet ??? cholecalciferol, Vitamin D3, 25 mcg (1,000 unit) tablet ??? clopidogreL (PLAVIX) 75 mg tablet ??? hypromellose (ISOPTO TEARS) 0.5 % ophthalmic solution ??? levothyroxine (SYNTHROID) 100 mcg tablet ??? losartan (COZAAR) 100 mg tablet ??? medical supply, miscellaneous (WALKER WHE[employer]S ACCESSORY MISC) ??? meloxicam (MOBIC) 7.5 mg tablet ??? nitroglycerin (NITROSTAT) 0.4 mg SL tablet ??? triamcinolone (KENALOG) 0.1 % cream ? ? vit A,C & G-uivqwe-buqhrspy (OCUVITE) 1,000 unit-200 mg-60 unit-2 mg tablet No current facility-administered medications for this visit. Facility-Administered Medications Ordered in Other Visits Medication Route Frequency ??? [] aflibercept (EYLEA) intravitreal syringe 2 mg intravitreal Allergies: Adhesive tape-silicones, Bupivacaine, Enalapril, Other - see comments, Silicone, and Simvastatin Family History: Reviewed; noncontributory Social History: Nonsmoker. Rare alcohol. Review of Systems: Performed; pertinent positives and negatives as mentioned above. OBJECTIVE There were no vitals taken for this visit. Diagnostic Data Available records including laboratory and cardiac studies [...] Normal RV. No or MR. PHYSICAL EXAM Physical exam findings patient can observe: None GENERAL: Does not appear to be in acute distress LUNGS: Unlabored breathing, speaks in full sentences, no audible wheezing NEURO: A&O x3, normal speech ORDERS/MEDICATION CHANGES No orders of the defined types were placed in this encounter. Medications Discontinued During This Visit Medication Reason ??? clopidogreL (PLAVIX) 75 mg tablet Therapy completed ??? carvediloL (COREG) 6.25 mg tablet Reorder Med Orders Placed This Visit and Additions to the Medication List Medications ??? carvediloL (COREG) 3.125 mg tablet Sig: Take 1 Tablet by mouth 2 times daily with breakfast and dinner. Dispense: 180 Tablet Refill: 3 meds on time- bubble packs Time in encounter: 25 min Gianfranco Flowers MD, PhD * Ana Israel MA - 11/13/2022 1045 EST I called and spoke with pt, she is scheduled on 05/29 at 10:15 with S.L documented in this encounter Plan of Treatment Upcoming Encounters Date Type Department Care Team (Late st Contact Info) Description 06/11/2024 12:45 EDT Office Visit [facility] Ophthalmology - [address] [phone] Santiago Anthony MD [address] [place] [address], [facility] [address] [place] [address] 07/15/2024 10:45 EDT Office Visit [facility] Cardiology Clinic [address] [place] [address] Gianfranco Flowers MD 130 [facility]- [address] [place] [address] documented as of this encounter Visit Diagnoses Diagnosis S/P coronary artery stent placement- Primary Postsurgical percutaneous transluminal coronary angioplasty status Coronary artery disease involving takotna coronary artery of takotna heart without angina pectoris Dyslipidemia Other and unspecified hyperlipidemia Chronic fatigue Other malaise and fatigue documented in this encounter Discontinued Medications Medication Sig Discontinue Reason Start Date End Da te clopidogreL (PLAVIX) 75 mg tablet TAKE ONE TABLET BY MOUTH EVERY DAY Therapy completed 10/30/2022 11/13/2022 carvediloL (COREG) 6.25 mg tablet Take 1 Tablet by mouth 2 times daily with breakfast and dinner. Reorder 12/06/2021 11/13/2022 documented as of this encounter Care Teams Buildings And Grounds Coordinator Relationship Specialty Start Date End Date Nivia Tinsley MD [address] [place] [phone] PCP - General Family Medicine - Primary Care 08/27/19 Zheng Tapia MD [address] [place] [address] [address] [place] [phone] Internal Medicine - Primary Care 09/01/19 Shazia Burks MD [address] [place] [address] Neurology 09/01/19 Tony Baron OD [address] [place] [phone] Engineering Writer 09/01/19 Keira Paniagua MD [address] [place] [address] [address] [place] [phone] Cardiovascular Disease 09/06/20 Siva Perkins MD [address] [facility] [place] [address] Neurology 09/06/20 documented as of this encounter
--- OUTSIDE RECORDS SUMMARY | 2024-04-29 18:18 | XMS_ITS | Encounter Summary ---
Author Organization [facility] Address [address] [place] [address] Care Team Providers Care Enlisted Aircrew/Aerial Observer/Gunner Name Role Phone Nivia Tinsley MD Primary Care Provider [phone] Zheng Tapia MD Unavailable Shazia Burks MD Unavailable [phone] Tony Baron OD Unavailable [phone] Keira Paniagua MD Unavailable [phone] Siva Perkins MD Unavailable [phone] Reason for Referral * PT/OT/ST (Routine/Next Available) - Specialty Report Received Specialty Diagnoses / Procedures Referred By [facility] t Referred To Contact Diagnoses Muscle weakness Nivia Tinsley MD [address] [place] [address] [address] [facility] [place] [address] [place] [address] Referral ID Status Reason Start Date Expiration Date Visits Requested Visits Authorized [id number] Specialty Report Received Specialty Services Required 2 1 1 Question Answer Reason for Request: difficulty getting out of wheelchair Reason for Visit * Reason Onset Date Comments Referral Request 08/28/2022 Encounter Details Date Type Department Care Team (Late st Contact Info) Description 08/28/2022 Telephone [facility] Family [facility] [address] [place] [address] Nivia Tinsley MD [address] [place] [address] Referral Request Social History Tobacco Use Types Packs/Day Years [...] place to sleep or slept in a intermediate (including now)? No 12/26/2021 Interpersonal Safety Answer [...] * Telephone Encounter - Marixa Kenny - 09/13/2022 1104 EST LVM for [facility]. * Telephone Encounter - Marixa Kenny - 09/11/2022 1409 EST [facility] to [facility]. * Telephone Encounter - Jay Cevallos - 09/11/2022 1329 EST Referral sent to [facility] * Telephone Encounter - Marixa Kenny - 09/11/2022 1101 EST [facility] the [facility] it program engagement director called in to state that the referral for pt should be through physical therapy aid the pt is bed bound. * Telephone Encounter - Fay Dotson RN - 08/30/2022 1111 EST Patient's caregiver Salome notified that this referral has been placed. PT office will reach out for scheduling. * Telephone Encounter - Nivia Tinsley MD - 08/28/2022 1142 EST Ok to refer to PT * Telephone Encounter - Nerissa Lamar - 08/28/2022 1120 EST Pt called requesting referral for physical therapy, says she is not strong enough to get out of herwheelchair and that she thinks she should be able to. Pt had thought had referred her already, but that doesn't look like the case. documented in this encounter Plan of Treatment Upcoming Encounters Date Type Department Care Team (Late st Contact Info) Description 06/11/2024 12:45 EDT Office Visit [facility] Ophthalmology [facility] [address] [place] [address] Santiago Anthony MD [address] [facility], [address] [place] [address] 07/15/2024 10:45 EDT Office Visit [facility] Card[facility] Clinic [address] [place] [address] Gianfranco Flowers MD [address] [place] [address] [address] Scheduled Referrals Name Type Priority Associated Diagnoses Order Schedule AMB CONS/FOLLOW UP [facility]YSICAL THERAPY - [facility] Outpatient Referral Routine/Next Available Muscle weakness Expected: 09/27/2022 (Approximate), Expires: 08/28/2023 documented as of this encounter Visit Diagnoses Diagnosis Muscle weakness- Primary Muscle weakness (generalized) documented in this encounter Care Teams Enlisted Aircrew/Aerial Observer/Gunner Relationship Specialty Start Date End Date Nivia Tinsley MD [address] [place] [address] PCP - General Family Medicine - Primary Care 08/27/19 Zheng Tapia MD [address] [place] [address] Internal Medicine - Primary Care 09/01/19 Shazia Burks MD [address] [place] [address] Neurology 09/01/19 Tony Baron OD [address] [place] [phone] Motor Lodge Clerk 09/01/19 Keira Paniagua MD [address] [place] [address] [address] [place] [address] Cardiovascular Disease 09/06/20 Siva Perkins MD [address] [place] [phone] Neurology 09/06/20 documented as of this encounter
--- OUTSIDE RECORDS SUMMARY | 2024-04-29 18:18 | XMS_ITS | Encounter Summary ---
Author Organization [facility] Address [address] [place] [address] Care Team Providers Care Radiological Technician Name Role Phone Nivia Tinsley MD Primary Care Provider [phone] Zheng Tapia MD Unavailable Shazia Burks MD Unavailable [phone] Tony Baron OD Unavailable [phone] Keira Paniagua MD Unavailable [phone] Siva Perkins MD Unavailable [phone] Reason for Visit * Reason Onset Date Comments Medications Refill 12/01/2022 Encounter Details Date Type Department Care Team (Late st Contact Info) Description 12/01/2022 Telephone [facility] - [facility] Integrative Family Medicine [address] [phone] Wanda Pal, RN Medications Refill Social History Tobacco Use [...] in a nursing home (including now)? No 12/26/2021 Interpersonal Safety Answer [...] at bedtime. 30 Tablet 11 12/01/2022 11/14/2023 losartan (COZAAR) 100 mg tabletIndications:Essenti al hypertension 1 tab(s) orally once a day 30 Tablet 11 12/01/2022 11/06/2023 documented in this encounter Miscellaneous Notes * Addendum Note - Wanda Pal RN - 12/01/2022 1236 ESTAddended by: WANDA PAL on: 12/01/2022 12:36 Modules accepted: Orders * Addendum Note - Wanda Pal RN - 12/01/2022 1235 ESTAddended by: WANDA APL on: 12/01/2022 12:35 Modules accepted: Orders * Telephone Encounter - Wanda Pal RN - 12/01/2022 1232 EST Medication Requested: Losartan 100mg and Atorvastatin 40mg Last OV: 08/03/2022 Next OV: 01/31/2023 Last Refill (If required): 12/06/2021 30 11RF Last Labs (BMP/CMP/LIPID/TSH) : 02/22/2022 [facility]: [facility] documented in this encounter Plan of Treatment Upcoming Encounters Date Type Department Care Team (Late st Contact Info) Description 06/11/2024 12:45 EDT Office Visit [facility] - [place] [address] [place], [place] [phone] Santiago Anthony MD 111 [facility], [facility] [address] [place] [address] 07/15/2024 10:45 EDT Office Visit [facility] Cardiology Clinic [address] [place] [address] Gianfranco Flowers MD 130 [facility]- [address] [place] [address] documented as of this encounter Visit Diagnoses Diagnosis Essential hypertension- Primary Unspecified essential hypertension documented in this encounter Discontinued Medications Medication Sig Discontinue Reason Start Date End Da te losartan (COZAAR) 100 mg tabletIndications:Essenti al hypertension 1 tab(s) orally once a day Reorder 12/06/2021 12/01/2022 atorvastatin (LIPITOR) 40 mg tablet Take 1 Tablet by mouth at bedtime. Reorder 12/06/2021 12/01/2022 documented as of this encounter Care Teams Radiological Technician Relationship Specialty Start Date End Date Nivia Tinsley MD [address] [place] [address] PCP - General Family Medicine - Primary Care 08/27/19 Zheng Tapia MD [address] [place] [address] [address] [place] [address] Internal Medicine - Primary Care 09/01/19 Shazia Burks MD [address] [place], [place] [address] Neurology 09/01/19 Tony Baron, FRANCK [address] [place] [phone] Executive Director Sheltered Workshop 09/01/19 Keira Paniagua MD [address] [place] [address] Cardiovascular Disease 09/06/20 Siva Perkins MD [address] [place] [phone] Neurology 09/06/20 documented as of this encounter
--- OUTSIDE RECORDS SUMMARY | 2024-04-29 18:18 | XMS_ITS | Encounter Summary ---
Author Organization [facility] Address [address] [place] [address] Care Team Providers Care Hop Trainer Name Role Phone Nivia Tinsley MD Primary Care Provider Zheng Tapia MD Unavailable Shazia Burks MD Unavailable [phone] Tony Baron OD Unavailable [phone] Keira Paniagua MD Unavailable [phone] Siva Perkins MD Unavailable [phone] Reason for Visit * Reason Comments Medications Refill Encounter Details Date Type Department Care Team (Late st Contact Info) Description 10/30/2022 Refill [facility] - [facility] Integrative Family Medicine [facility] [address] [place], [place] [phone] Nivia Tinsley MD [address] [place], [place] [phone] Medications Refill Social History Tobacco Use Types [...] slept in a fci (including now)? No 12/26/2021 Interpersonal Safety Answer [...] Dispensed Refills Start Date End Da te clopidogreL (PLAVIX) 75 mg tablet TAKE ONE TABLET BY MOUTH EVERY DAY 30 Tablet 11 10/30/2022 11/13/2022 aspirin chewable 81 mg tablet CHEW AND SWALLOW 1 TABLET BY MOUTH ONCE DAILY 30 Tablet 11 10/30/2022 08/01/2023 documented in this encounter Miscellaneous Notes * Telephone Encounter - Yaa Graham, RN - 10/30/2022 4813 EST Medication Requested: Aspirin 81mg and Clopidogrel 75mg Last OV: 08/03/2022 Next OV: 01/31/2023 Last Refill (If required): 12/06/2021 and 05/25/2022 Last Labs (BMP/CMP/LIPID/TSH) : 02/21/2022 Pharmacy [facility] Choice: [facility] documented in this encounter Plan of Treatment Upcoming Encounters Date Type Department Care Team (Late st Contact Info) Description 06/11/2024 12:45 EDT Office Visit [facility] Ophthalmology [facility] [address] [place] [address] Santiago Anthony MD [address] [place] [address], [address] [place] [address] 07/15/2024 10:45 EDT Office Visit [facility] Cardiology Clinic [address] [place] [address] Gianfranco Flowers MD [address] [phone] documented as of this encounter Visit Diagnoses Not on filedocumented in this encounter Discontinued Medications Medication Sig Discontinue Reason Start Date End Da te aspirin chewable 81 mg tablet Take 1 Tablet by mouth daily. 12/06/2021 10/30/2022 clopidogreL (PLAVIX) 75 mg tablet TAKE ONE TABLET BY MOUTH EVERY DAY 05/25/2022 10/30/2022 documented as of this encounter Care Teams Hop Trainer Relationship Specialty Start Date End Date Nivia Tinsley MD [address] [place] [address] PCP - General Family Medicine - Primary Care 08/27/19 Zheng Tapia MD [address] [place] [address] Internal Medicine - Primary Care 09/01/19 Shazia Burks MD [address] [place] [address] Neurology 09/01/19 Tony Baron, FRANCK [address] [place] [address] Shop Welder 09/01/19 Keira Paniagua MD [address] [address] Cardiovascular Disease 09/06/20 Siva Perkins MD [address] [place] [address] [phone] Neurology 09/06/20 documented as of this encounter
--- OUTSIDE RECORDS SUMMARY | 2024-04-29 18:18 | XMS_ITS | Encounter Summary ---
Author Organization [facility] Address [address] [place] [address] Care Team Providers Care Headlight Adjuster Name Role Phone Nivia Tinsley MD Primary Care Provider Zheng Tapia MD Unavailable Shazia Burks MD Unavailable [phone] Tony Baron OD Unavailable [phone] Keira Paniagua MD Unavailable [phone] Siva Perkins MD Unavailable [phone] Reason for Visit * Reason Comments Eye Problem Wet AMD Left eye Encounter Details Date Type Department Care Team (Late st Contact Info) Description 11/08/2022 13:45 EST Office Visit [facility] Op[facility] [address] [place], [place] [address] Santiago Anthony MD 111 [facility], [facility] [address] [place] [address] Social History Tobacco Use Types [...] in a senior care (including now)? No 12/26/2021 Interpersonal Safety Answer [...] Progress Notes * Santiago Anthony MD - 11/08/2022 6005 EST Chief Complaint Patient presents with ??? Eye Problem Wet AMD Left eye Comments Eye Problem Additional comments: Wet AMD Left eye HPI Location: Pain: 0 - No pain Quality: Severity: Duration: Timing: Lasts: Context: Wet AMD - Left eye. S/p Eylea Left 07/12/22. Modifying factors: Feels vision is worsening, perception issues, no eye pain floaters or flashes oflight. Associated Signs & Symptoms: Visual Fluctuations: None Attestation: Base Eye Exam Visual Acuity (Snellen - Linear) Right Left Dist cc 20/800 20/350 Dist ph cc NI NI Correction: Glasses Tonometry (Applanation, 13:51) Right Left Pressure 16 16 Dilation Both eyes: Tropicamide 1% @ 13:51 Slit Lamp and Fundus Exam Slit Lamp Exam Right Left Lids/Lashes Normal Normal Conjunctiva/Sclera White and quiet White and quiet Cornea Clear Clear Anterior Chamber Deep and quiet Deep and quiet Iris Transillumination defects Transillumination defects Fundus Exam Right Left Macula flat flat Vessels Normal Normal Periphery pale fundus, flat pale fundus, flat All five layers of the cornea are normal unless otherwise specified. Please refer to large retinal drawing. OCT, Retina - OU - Both Eyes Right Eye Quality was good. Scan locations included subfoveal. Progression has been stable. Findings include (Atrophic ). Left Eye Quality was good. Scan locations included subfoveal. Progression has been stable. Findings include (Atrophic ). IMPRESSION: 1. Exudative age-related macular degeneration of left eye, unspecified stage (HCC) OCT, RETINA - OU- BOTH EYES 2. Albinism (HCC) 3. Nystagmus PLAN: Wet Macular Degeneration left eye Stable 17 wks s/p Eylea left 07/12/22 No fluid or heme Options observe vs eylea Believe vision will continue to get worse second to Albinism No active disease Will continue to monitor Pt agrees to observation for now She will consider whether she wants to restart Albinism Nystagmus Return in 6, 13 and 20 wks for OCT I, Dr. Santiago Anthony, have performed my [...] Info) Description 06/11/2024 12:45 EDT Office Visit [facility] Ophthalmology - [address] [id number] Santiago Anthony MD [address] [place] [address], [facility] [address] [place] [address] 07/15/2024 10:45 EDT Office Visit [facility] [address] [place] [address] Gianfranco Flowers MD 130 [facility] [address] [place] [address] documented as of this encounter Procedures Procedure Name Priority Date/Time Associated Diagnosis Comments OCT, RETINA - OU - BOTH EYES Routine 11/08/2022 14:21 EST Exudative age-related macular degeneration of left eye, unspecified stage ([facility]) documented in this encounter Results * OCT, RETINA - OU - BOTH EYES (11/08/2022 14:21 EST) Narrative [facility] OPHTHALMOLOGY - 11/08/2022 14:24 EST Right Eye Quality was good. Scan locations included subfoveal. Progression has been stable. Findings include (Atrophic ). Left Eye Quality was good. Scan locations included subfoveal. Progression has been stable. Findings include (Atrophic ). Santiago Anthony MD OPHTH TOMOGRAPHY [facility] OPHTHALMOLOGY documented in this encounter Visit Diagnoses Diagnosis Exudative age-related macular degeneration of left eye, unspecified stage ([facility])- Primary Albinism ([facility]) Other disturbances of aromatic amino-acid metabolism Nystagmus Nystagmus, unspecified documented in this encounter Eye Exam Visual Acuity (Snellen - Linear) Right eye Left eye Dist cc 20/800 20/350 Dist ph cc NI NI Correction: Glasses Tonometry (Applanation, 13:51) Right eye Left eye Pressure 16 16 Dilation Both eyes: Tropicamide 1% @ 13:51 Slit Lamp Exam Right eye Left eye Lids/Lashes Normal Normal Conjunctiva/Sclera White and quiet White and russel et Cornea Clear Clear Anterior Chamber Deep and quiet Deep and quiet Iris Transillumination defects Transi llumination defects Fundus Exam Right eye Left eye Macula flat flat Vessels Normal Normal Periphery pale fundus, flat pale fundus, f lat Care Teams Headlight Adjuster Relationship Specialty Start Date End Date Nivia Tinsley MD [address] [place] [address] PCP - General Family Medicine - Primary Care 08/27/19 Zheng Tapia MD [address] [place] [address] [address] [place] [phone] Internal Medicine - Primary Care 09/01/19 Shazia Burks MD [address] [place], [place] [address] Neurology 09/01/19 Tony Baron OD [address] [place] [phone] Machine Assembler Supervisor 09/01/19 Keira Paniagua MD [address] [place] [address] Cardiovascular Disease 09/06/20 Siva Perkins MD [address] [place] [address] Neurology 09/06/20 documented as of this encounter
--- OUTSIDE RECORDS SUMMARY | 2024-04-29 18:18 | XMS_ITS | Encounter Summary ---
Author Organization [facility] Address [address] [place] [address] Care Team Providers Care Media Relations Coordinator Name Role Phone Nivia Tinsley MD Primary Care Provider Zheng Tapia MD Unavailable Shazia Burks MD Unavailable [phone] Tony Baron OD Unavailable [phone] Keira Paniagua MD Unavailable [phone] Siva Perkins MD Unavailable [phone] Reason for Visit * Reason Comments Eye Problem Wet AMD, left eye Encounter Details Date Type Department Care Team (Late st Contact Info) Description 12/20/2022 8:45 EDT Office Visit [facility] Ophthalmology [facility] [address] [place] [address] Santiago Anthony MD 111 [facility], [address] [place] [address] Social History Tobacco Use Types [...] Progress Notes * Santiago Anthony MD - 12/20/2022 0845 EDT Chief Complaint Patient presents with ??? Eye Problem Wet AMD, left eye Comments Eye Problem Additional comments: Wet AMD, left eye HPI Location: Left eye Pain: 0 - No pain Quality: Severity: Duration: Months Timing: Lasts: Context: Wet AMD, left eye Modifying factors: Uses artificial tears for dry/itchy eyes. Vision has been mostly the same. No new floaters Associated Signs & Symptoms: s/p Eylea, left eye (07/12/22) Visual Fluctuations: Attestation: Base Eye Exam Visual Acuity (Snellen - Linear) Right Left Dist cc 20/800 20/350 Correction: Glasses Tonometry (Applanation, 8:54) Right Left Pressure 21 20 Pupils Pupils APD Right PERRL None Left PERRL None Dilation Both eyes: Tropicamide 1%, Phenylephrine 2.5% @ 8:55 Slit Lamp and Fundus Exam Slit Lamp Exam Right Left Lids/Lashes Normal Normal Conjunctiva/Sclera White and quiet White and quiet Cornea SPK 4+ SPK 4+ Anterior Chamber Deep and quiet Deep and quiet Iris Round and reactive Round and reactive Lens Posterior chamber intraocular lens Posterior chamber intraocular lens Fundus Exam Right Left Disc Healthy Rim Healthy Rim Macula no heme or edema no heme or edema, scar Vessels Normal Normal Periphery flat, blond fundus flat, blond fundus All five layers of the cornea are normal unless otherwise specified. Please refer to large retinal drawing. OCT, Retina - OU - Both Eyes Right Eye Quality was good. Scan locations included subfoveal. Progression has been stable. Findings include (Irregular contour ). Left Eye Quality was good. Scan locations included subfoveal. Progression has been stable. Findings include (Irregular contour ). IMPRESSION: 1. Exudative age-related macular degeneration of left eye, unspecified stage (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) 3. Dry eye PLAN: Wet Macular Degeneration left eye 5 months s/p Eylea left eye (07/12/22) Quiet Continue to monitor Severe Dry eyes both eyes Increase AT's and try thicker tears Recommend getting back into Dr. Vazquez to evaluate Albinism both Significant nystagmus Return 02/07 for OCT I, Dr. Santiago Anthony, have [...] Description 06/11/2024 12:45 EDT Office Visit [facility] Ophthalmology - [address] [id number] Santiago Anthony MD [address] [place] [address], [address] [place] [address] 07/15/2024 10:45 EDT Office Visit [facility]iology Clinic [address] [place] [address] Gianfracno Flowers MD 130 [facility] [address] [place] [address] documented as of this encounter Procedures Procedure Name Priority Date/Time Associated Diagnosis Comments OCT, RETINA - OU - BOTH EYES Routine 12/20/2022 9:13 EDT Exudative age-related macular degeneration of left eye, unspecified stage ([facility]) documented in this encounter Results * OCT, RETINA - OU - BOTH EYES (12/20/2022 9:13 EDT) Narrative [facility] OPHTHALMOLOGY - 12/21/2022 7:11 EDT Right Eye Quality was good. Scan locations included subfoveal. Progression has been stable. Findings include (Irregular contour ). Left Eye Quality was good. Scan locations included subfoveal. Progression has been stable. Findings include (Irregular contour ). Santiago Anthony MD OPHTH TOMOGRAPHY [facility] OPHTHALMOLOGY documented in this encounter Visit Diagnoses Diagnosis Exudative age-related macular degeneration of left eye, unspecified stage (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 Dry eye Tear film insufficiency, unspecified documented in this encounter Eye Exam Visual Acuity (Snellen - Linear) Right eye Left eye Dist cc 20/800 20/350 Correction: Glasses Tonometry (Applanation, 8:54) Right eye Left eye Pressure 21 20 Pupils Pupils APD Right eye PERRL None Left eye PERRL None Dilation Both eyes: Tropicamide 1%, P henylephrine 2.5% @ 8:55 Slit Lamp Exam Right eye Left eye Lids/Lashes Normal Normal Conjunctiva/Sclera White and quiet White and russel et Cornea SPK 4+ SPK 4+ Anterior Chamber Deep and quiet Deep and quiet Iris Round and reactive Round and freddie ctive Lens Posterior chamber in traocular lens Posterior chamber intraocular lens Fundus Exam Right eye Left eye Disc Healthy Rim Healthy Rim Macula no heme or edema no heme or marce a, scar Vessels Normal Normal Periphery flat, blond fundus flat, blond f undus Care Teams Media Relations Coordinator Relationship Specialty Start Date End Date Nivia Tinsley MD [address] [place] [address] PCP - General Family Medicine - Primary Care 08/27/19 Zheng Tapia MD [address] [place] [address] [address] [place] [address] Internal Medicine - Primary Care 09/01/19 Shazia Burks MD [address] [place] [address] Neurology 09/01/19 Tony Baron OD [address] [place] [phone] Landscape Crew Leader 09/01/19 Keira Paniagua MD [address] [place] [address] [address] [place] [address] Cardiovascular Disease 09/06/20 Siva Perkins MD [address] [facility] [place] [address] Neurology 09/06/20 documented as of this encounter
--- OUTSIDE RECORDS SUMMARY | 2024-04-29 18:18 | XMS_ITS | Encounter Summary ---
Author Organization [facility] Address [address] [place] [address] Care Team Providers Care Software Quality Specialist Name Role Phone Nivia Tinsley MD Primary Care Provider [phone] Zheng Tapia MD Unavailable Shazia Burks MD Unavailable [phone] Tony Baron OD Unavailable [phone] Keira Paniagua MD Unavailable [phone] Siva Perkins MD Unavailable [phone] Reason for Visit * Reason Onset Date Comments Medications Refill 11/22/2022 Encounter Details Date Type Department Care Team (Late st Contact Info) Description 11/22/2022 Telephone [facility] Integr[facility] Family Medicine [facility] [address] [place], [place] [phone] Nivia Tinsley MD [address] [place], [place] [phone] Medications Refill Social History Tobacco Use Types [...] slept in a residential (including now)? No 12/26/2021 Interpersonal Safety Answer [...] mouth daily. 30 Tablet 11 11/22/2022 10/09/2023 levothyroxine (SYNTHROID) 100 mcg tabletIndications:Other specified hypothyroidism Take 1 Tablet by mouth daily. 30 Tablet 11 11/22/2022 11/22/2022 documented in this encounter Miscellaneous Notes * Telephone Encounter - Yaa Graham RN - 11/22/2022 1050 EST Levothyroxine sent. Julia meds on time informed. Advised her per our system the clopidogrel was discontinued on 11/13/2022 per Gianfranco Flowers MD (Cardiology). * Telephone Encounter - Marixa Kenny - 11/22/2022 1043 EST Blanca Alston (meds on time) is calling requesting levothyroxine 100 mcg and the Clopidogrel 75 mg for her bubble packs. It looks like they should of been electronically sent to us on the but they didn't make it to us. documented in this encounter Plan of Treatment Upcoming Encounters Date Type Department Care Team (Late st Contact Info) Description 06/11/2024 12:45 EDT Office Visit [facility] [place] [address] [place], [place] [phone] Santiago Antohny MD [address] [place] [address] 5 [place] [address] 07/15/2024 10:45 EDT Office Visit [facility] Cardiology Clinic [address] [place], [place] [phone] Gianfranco Flowers MD 130 [facility] [address] [place] [address] documented as of this encounter Visit Diagnoses Diagnosis Other specified hypothyroidism- Primary documented in this encounter Discontinued Medications Medication Sig Discontinue Reason Start Date End Da te levothyroxine (SYNTHROID) 100 mcg tabletIndications:Other specified hypothyroidism Take 1 Tablet by mouth daily. Reorder 12/06/2021 11/22/2022 levothyroxine (SYNTHROID) 100 mcg tabletIndications:Other specified hypothyroidism Take 1 Tablet by mouth daily. 11/22/2022 11/22/2022 documented as of this encounter Care Teams Software Quality Specialist Relationship Specialty Start Date End Date Nivia Tinsley MD [address] [place], [place] [phone] PCP - General Family Medicine - Primary Care 08/27/19 Zheng Tapia MD [address] [place] [address] [address] [place] [address] Internal Medicine - Primary Care 09/01/19 Shazia Burks MD [address] [place], [place] [address] Neurology 09/01/19 Tony Baron OD [address] [place] [address] Oven Roaster 09/01/19 Keira Paniagua MD [address] [place] [address] Cardiovascular Disease 09/06/20 Siva Perkins MD [address] [place] [address] Neurology 09/06/20 documented as of this encounter
--- OUTSIDE RECORDS SUMMARY | 2024-04-29 18:18 | XMS_ITS | Encounter Summary ---
Author Organization [facility] Address [address] [place] [address] Care Team Providers Care Staff Pharmacist Name Role Phone Nivia Tinsley MD Primary Care Provider [phone] Zheng Tapia MD Unavailable Shazia Burks MD Unavailable [phone] Tony Baron OD Unavailable [phone] Keira Paniagua MD Unavailable [phone] Siva Perkins MD Unavailable Reason for Visit * Reason Onset Date Comments Medications Refill 11/16/2022 Encounter Details Date Type Department Care Team (Late st Contact Info) Description 11/16/2022 Refill [facility] Integrative Family Medicine [address] [address] Akila Centeno, ANA Medications Refill Social History Tobacco Use [...] in a skilled nursing (including now)? No 12/26/2021 Interpersonal Safety Answer [...] Date End Da te vit A,C & X-vvqboj-fvikqqbz (OCUVITE) 300 mcg-200 mg-27 mg-2 mg tablet Take 1 tab by mouth daily 30 Tablet 11 11/16/2022 10/16/2023 documented in this encounter Miscellaneous Notes * Telephone Encounter - Akila Centeno RN - 11/16/2022 1452 EST Med refill request from pharm. Last OV: 08/03/2022 Next OV: 01/31/2023 Med: Ocuvite with Lutein Tablet 300 mcg - 200 Last Refill (If required): 10/19/22 Med: Clopidogrel 75 mg Last Refill: 10/18/22 Pharmacy Of Choice: [facility] Ocuvite e-scribed. Plavix discontinued per Dr. Sosa, Cardiology 11/13/22. documented in this encounter Plan of Treatment Upcoming Encounters Date Type Department Care Team (Late st Contact Info) Description 06/11/2024 12:45 EDT Office Visit [facility] Ophthalmology [facility] [address] [place], [place] [phone] Santiago Anthony MD [address] [place] [address], [address] [place] [address] 07/15/2024 10:45 EDT Office Visit [facility] Cardiology Clinic [address] [place] [address] Gianfranco Sosa MD [address] [address] documented as of this encounter Visit Diagnoses Not on filedocumented in this encounter Discontinued Medications Medication Sig Discontinue Reason Start Date End Da te vit A,C & P-nngopk-blkykcig (OCUVITE) 1,000 unit-200 mg-60 unit-2 mg tablet Take 1 tab by mouth daily Reorder 12/06/2021 11/16/2022 documented as of this encounter Care Teams Staff Pharmacist Relationship Specialty Start Date End Date Nivia Tinsley MD [address] [place] [address] PCP - General Family Medicine - Primary Care 08/27/19 Zheng Tapia MD [address] [place] [address] Internal Medicine - Primary Care 09/01/19 Shazia Burks MD [address] [place] [address] Neurology 09/01/19 Tony Baron, FRANCK [address] [place] [address] Hydraulic Mechanic 09/01/19 Keira Paniagua MD 130 [facility] [address] [address] Cardiovascular Disease 09/06/20 Siva Perkins MD [address] [place] [address] Neurology 09/06/20 documented as of this encounter
--- OUTSIDE RECORDS SUMMARY | 2024-04-29 18:18 | XMS_ITS | Encounter Summary ---
Author Organization [facility] Address [address] [place] [address] Care Team Providers Care Brake Reliner Name Role Phone Nivia Tinsley MD Primary Care Provider [phone] Zheng Tapia MD Unavailable Shazia Burks MD Unavailable [phone] Tony Baron OD Unavailable [phone] Keira Paniagua MD Unavailable [phone] Siva Perkins MD Unavailable [phone] Reason for Visit * Reason Comments Leg Pain Encounter Details Date Type Department Care Team (Latest Contact Info) Description 08/03/2022 11:15 EDT Office Visit [facility] Integrative Family Medicine [facility] [address] [place], [place] [id number] Nivia Tinsley MD [address] [place] [address] Diabetes mellitus type 2, noninsulin dependent (HCC-CMS) (Primary Dx); Need for vaccination; Primary osteoarthritis of right knee Social History Tobacco Use Types Packs/Day Years [...] slept in a jail (including now)? No 12/26/2021 Interpersonal Safety Answer [...] Recorded In the last 10 days, have j luis childers been in contact with someone who was confirmed or suspected to have Coronavirus/COVID-19? No / Unsure 08/03/2022 10:44 EDT documented as of this encounter Last Filed Vital Signs Vital Sign Reading Time Taken Comments Blood Pressure 122/70 08/03/2022 1109 EDT Pulse 68 08/03/2022 1109 EDT Temperature - - Respiratory Rate - - Oxygen Saturation 95% 08/03/2022 1109 EDT Inhaled Oxygen Concentration - - Weight 72.1 kg (159 lb) 08/03/2022 1109 EDT Height 165.1 cm (5' 5) 08/03/2022 1109 EDT Body Mass Index 26.46 08/03/2022 1109 EDT documented in this encounter Functional Status [...] Dispensed Refills Start Date End Da te meloxicam (MOBIC) 7.5 mg tabletIndications:Primary osteoarthritis of right knee Take 1 Tablet by mouth daily. Take with a meal and monitor for bleeding 30 Tablet 08/03/2022 08/01/2023 meloxicam (MOBIC) 15 mg tabletIndications:Primary osteoarthritis of right knee Take 1 Tablet by mouth daily. 30 Tablet 08/03/2022 08/03/2022 documented in this encounter Progress Notes * Nivia Tinsley MD - 08/03/2022 1115 EDT Images from the original note were not included. [facility] Primary Care Subjective: Chief Complaint(s): Leg Pain HPI: ??81-year-old woman with CAD and NSTEMI status post LAD stent placement in November 2021, heart failure with preserved ejection fraction,??visual impairment, prediabetes,??GERD,??hypothyroidism,??hypertension, hyperlipidemia, and a??CVA- thalamic infarct??who has been having more right hip andknee pain. She has had a knee X-ray in 12/2019: FINDINGS: Right knee: 4 views were performed. No acute fracture or malalignment is identified. Moderate tricompartmental osteoarthrosis remains most advanced in the medial tibiofemoral compartment. No significant joint effusion is visible. IMPRESSION: No fracture identified. She has not had a hip x-ray. She is using tylenol for the pain, but it only takes the edge off. Shewould like something else for pain that will not make her sleepy. She does not want more x-rays at this time, and she does not want to see ortho or do PT. She is on Plavix. She is also due for a HBA1c. I have reviewed patient's tobacco history: reports that she has never smoked. She has never used smokeless tobacco. I have reviewed current problem list and current medications. ROS: Review of Systems Musculoskeletal: Positive for joint pain. Objective: Examination: Vitals: BP 122/70 (BP Cuff Location: Left arm, BP Patient Position: Sitting, BP Cuff Sizes: Adult, regular) Pulse 68 Ht 165.1 cm (65) Wt 72.1 kg (159 lb) SpO2 95% BMI 26.46 kg/m?? Body mass index is 26.46 kg/m??. Physical Exam Constitutional: Appearance: Normal appearance. She is well-developed. HENT: Head: Normocephalic and atraumatic. Eyes: Conjunctiva/sclera: Conjunctivae normal. Pulmonary: Effort: Pulmonary effort is normal. Musculoskeletal: Cervical back: Neck supple. Comments: In WC Skin: General: Skin is dry. Neurological: General: No focal deficit present. Mental Status: She is alert and oriented to person, place, and time. Mental status is at baseline. Psychiatric: Mood and Affect: Mood normal. Behavior: Behavior normal. Thought Content: Thought content normal. Judgment: Judgment normal. Data reviewed with patient (past results): Results for orders placed or performed in visit on 08/03/22 POCT HEMOGLOBIN A1C Result Value Ref Range Hemoglobin A1c, POC 6.0 (A) 5.7 % Assessment & Plan: Concetta was seen today for leg pain. Diagnoses and all orders for this visit: Diabetes mellitus type 2, noninsulin dependent (HCC-CMS) ([facility]) - POCT HEMOGLOBIN A1C Need for vaccination - Cancel: COVID-19 MRNA-LNP BIVALENT VACCINE (Pictorious BIVALENT BOOSTER) PF 0.3 ML IM (12 YRS+) Primary osteoarthritis of right knee Comments: She is on Plavix, so we will monitor closely for bleeding. Stool cards given to check for FOB aftershe has been on it for a few days. Orders: - Discontinue: meloxicam (MOBIC) 15 mg tablet; Take 1 Tablet by mouth daily. - meloxicam (MOBIC) 7.5 mg tablet; Take 1 Tablet by mouth daily. Take with a meal and monitor for bleeding Return in about 6 months (around 01/31/2023) for AWV and Shingrix. I spent a total of 30 minutes on the date of this encounter meeting with the patient and reviewing documentation/coordinating care as described in the above note. No procedures were performed at the time of the visit. Nivia Tinsley MD, FAAFP * Kristal Major MA - 08/03/2022 1115 EDT Site collected R middle Reason: See assessment code. Ordering Provider Dustin Tinsley MD. Patient tolerated procedure well. documented in this encounter Plan of Treatment Upcoming Encounters Date Type Department Care Team (Late st Contact Info) Description 06/11/2024 12:45 EDT Office Visit [facility] Ophthalmology [facility] [address] [place] [address] Santiago Anthony MD [address] [place] [address] [address] [place] [address] 07/15/2024 10:45 EDT Office Visit [facility] [address] [place] [address] Gianfranco Flowers MD 130 [facility] [address] [place] [address] documented as of this encounter Procedures Procedure Name Priority Date/Time Associated Diagnosis Comments POCT HEMOGLOBIN A1C Routine 08/03/2022 Diabetes mellitus type 2, noninsulin dependent (HCC-CMS) documented in this encounter Results * (ABNORMAL) POCT HEMOGLOBIN A1C (08/03/2022) Hemoglobin A1c, POC 6.0(A) 5.7 % [facility] POINT OF CARE Blood CAPILLARY BLOOD / Unknown 08/03/2022 Nivia Tinsley MD POINT OF CARE TEST ORDERABLES [facility] POINT OF CARE documented in this encounter Visit Diagnoses Diagnosis Diabetes mellitus type 2, noninsulin dependent (HCC-CMS)- Primary Type II or unspecified type diabetes mellitus without mention of complication, not stated as uncontrolled Need for vaccination Need for prophylactic vaccination and inoculation against unspecified single disease Primary osteoarthritis of right knee Primary localized osteoarthrosis, lower leg documented in this encounter Discontinued Medications Medication Sig Discontinue Reason Start Date End Da te meloxicam (MOBIC) 15 mg tabletIndications:Primary osteoarthritis of right knee Take 1 Tablet by mouth daily. 08/03/2022 08/03/2022 documented as of this encounter Historical Medications * This list may reflect changes made after this encounter. Medication Sig Dispensed Refills Start Date End Date cholecalciferol, Vitamin D3, 25 mcg (1,000 unit) tablet Take 1 Tablet by mouth daily. 04/28/2022 added in this encounter Care Teams Brake Reliner Relationship Specialty Start Date End Date Nivia Tinsley MD [address] [place] [address] PCP - General Family Medicine - Primary Care 08/27/19 Zheng Tapia MD [address] [place] [address] [address] [place] [address] Internal Medicine - Primary Care 09/01/19 Shazia Burks MD [address] [place] [address] Neurology 09/01/19 Tony Baron OD [address] [place] [address] Nursing Center Tutor 09/01/19 Keira Paniagua MD [address] [place] [address] [address] [place] [address] Cardiovascular Disease 09/06/20 Siva Perkins MD [address] [facility] [place] [address] Neurology 09/06/20 documented as of this encounter
--- OUTSIDE RECORDS SUMMARY | 2024-04-29 18:18 | XMS_ITS | Encounter Summary ---
Author Organization [facility] Address [address] [place] [address] Care Team Providers Care Tour Agent Name Role Phone Nivia Tinsley MD Primary Care Provider [phone] Zheng Tapia MD Unavailable Shazia Burks MD Unavailable [phone] Tony Baron OD Unavailable [phone] Keira Paniagua MD Unavailable [phone] Siva Perkins MD Unavailable [phone] Reason for Visit * Reason Onset Date Comments Arthritis 07/17/2022 Encounter Details Date Type Department Care Team (Late st Contact Info) Description 07/17/2022 Telephone [facility] Integrative Family Medicine [facility] [address] [place], [place] [phone] Nivia Tinsley MD [address] [place] [address] Arthritis Social History Tobacco Use Types Packs/Day Years [...] Telephone Encounter - Nivia Tinsley MD - 07/17/2022 1449 EDT Noted * Telephone Encounter - Phil Vickers RN - 07/17/2022 1436 EDT Patient notified. Patient will increase her tylenol to 650 TID. Patient states her pain is mostly when she tranfers * Telephone Encounter - Nivia Tinsley MD - 07/17/2022 1427 EDT Correct. IT would cause her to possibly bleed in her stomach. IS there anotehr way we could treat her pain if the Tylenol is not working. Where is her pain?? PT? * Telephone Encounter - Phil Vickers RN - 07/17/2022 1200 EDT Patient takes Plavix. I believe IBU would be contraindicated. Please confirm. * Telephone Encounter - Jay Cevallos - 07/17/2022 1135 EDT Pt requests to change from tylenol to ibuprofen for her pain management documented in this encounter Plan of Treatment Upcoming Encounters Date Type Department Care Team (Late st Contact Info) Description 06/11/2024 12:45 EDT Office Visit [facility] Ophthalmology - [place] [address] [place], [place] [phone] Santiago Anthony MD 111 [facility] [address] [place] [address] 07/15/2024 10:45 EDT Office Visit [facility] [address] [place], [place] [phone] Gianfranco Flowers MD 130 [facility] [address] [place] [phone] documented as of this encounter Visit Diagnoses Not on filedocumented in this encounter Care Teams Tour Agent Relationship Specialty Start Date End Date Nivia Tinsley MD [address] [place] [id number] PCP - General Family Medicine - Primary Care 08/27/19 Zheng Tapia MD [address] [place] [address] [address] [place] [address] Internal Medicine - Primary Care 09/01/19 Shazia Burks MD [address] [place] [address] Neurology 09/01/19 Tony Baron OD [address] [place] [phone] Yard Operator 09/01/19 Keira Paniagua MD [address] [place] [address] Cardiovascular Disease 09/06/20 Siva Perkins MD [address] [place] [address] Neurology 09/06/20 documented as of this encounter
--- OUTSIDE RECORDS SUMMARY | 2024-04-29 18:19 | XMS_ITS | Encounter Summary ---
Author Organization [facility] Address [address] [place] [address] Care Team Providers Care Dramatic Agent Name Role Phone Nivia Tinsley MD Primary Care Provider [phone] Zheng Tapia MD Unavailable Shazia Burks MD Unavailable [phone] Tony Baron OD Unavailable [phone] Keira Paniagua MD Unavailable [phone] Siva Perkins MD Unavailable [phone] Reason for Visit * Reason Onset Date Comments Medications Refill 03/14/2022 Encounter Details Date Type Department Care Team (Late st Contact Info) Description 03/14/[address] [facility] Integrative Family Medicine [address] [address] Sherly Mei, ANA Medications Refill Social History Tobacco Use [...] 12/26/2021 PHQ-2 Answer Date Recorded PHQ-2 SUBTOTAL 1 12/26/2021 Hunger Vital Sign Answer Date Recorded Within [...] slept in a fpc (including now)? No 12/26/2021 Interpersonal Safety Answer [...] Dispensed Refills Start Date End Da te nitroglycerin (NITROSTAT) 0.4 mg SL tabletIndications:NSTEMI (non-ST elevated myocardial infarction) ([facility]) Place 1 Tablet under the tongue every 5 minutes as needed for Chest Pain. 30 Tablet 03/14/2022 documented in this encounter Miscellaneous Notes * Telephone Encounter - Cassy Cevallos - 03/14/2022 0925 EDT Relayed. * Telephone Encounter - Sherly Mei, RN - 03/14/2022 0836 EDT Refill nitroglycerine to [facility]; wants a CB when sent. [facility] - 12/26/21 NOV - none last refill - 12/26/21, #30 NR OK to refill? documented in this encounter Plan of Treatment Upcoming Encounters Date Type Department Care Team (Late st Contact Info) Description 06/11/2024 12:45 EDT Office Visit [facility] Ophthalmology [facility] [address] [place] [address] Santiago Anthony MD 111 [facility], [address] [place] [address] 07/15/2024 10:[address] [facility] [address] [place] [address] Gianfranco Flowers MD 130 [facility] [address] [phone] documented as of this encounter Visit Diagnoses Diagnosis NSTEMI (non-ST elevated myocardial infarction) (HCC-CMS)- Primary Acute myocardial infarction, subendocardial infarction, episode of care unspecified documented in this encounter Discontinued Medications Medication Sig Discontinue Reason Start Date End Da te nitroglycerin (NITROSTAT) 0.4 mg SL tabletIndications:NSTEMI (non-ST elevated myocardial infarction) (HCC-CMS) Place 1 Tablet under the tongue every 5 minutes as needed for Chest Pain. Reorder 12/26/2021 03/14/2022 documented as of this encounter Care Teams Dramatic Agent Relationship Specialty Start Date End Date Nivia Tinsley MD [address] [place] [address] PCP - General Family Medicine - Primary Care 08/27/19 Zheng Tapia MD [address] [place] [address] Internal Medicine - Primary Care 09/01/19 Shazia Burks MD [address] [place] [address] Neurology 09/01/19 Tony Baron OD [address] [place] [address] Anhydrous Ammonia Production Supervisor 09/01/19 Keira Paniagua MD [address] [place] [address] [address] Cardiovascular Disease 09/06/20 Siva Perkins MD [address] [place] [phone] Neurology 09/06/20 documented as of this encounter
--- OUTSIDE RECORDS SUMMARY | 2024-04-29 18:19 | XMS_ITS | Encounter Summary ---
Author Organization [facility] Address [address] [place] [address] Care Team Providers Care Electroplating Laborer Name Role Phone Nivia Tinsley MD Primary Care Provider [phone] Zheng Tapia MD Unavailable Shazia Burks MD Unavailable [phone] Tony Baron OD Unavailable [phone] Keira Paniagua MD Unavailable [phone] Siva Perkins MD Unavailable [phone] Reason for Visit * Reason Comments Other Encounter Details Date Type Department Care Team (Late st Contact Info) Description 05/24/[address] [facility] [address] [place], [place] [phone] Nivia Tinsley MD [address] [place], [place] [phone] Other Social History Tobacco Use Types Packs/Day Years [...] TABLET BY MOUTH EVERY DAY 30 Tablet 5 05/25/2022 10/30/2022 documented in this encounter Miscellaneous Notes * Telephone Encounter - Sherly Mei RN - 05/25/2022 0724 EDT [facility] - 04/10/22 NOV - none OK to refill? documented in this encounter Plan of Treatment Upcoming Encounters Date Type Department Care Team (Late st Contact Info) Description 06/11/2024 12:45 EDT Office Visit [facility] Ophthalmology - [address] [phone] Santiago Anthony MD [address] [place] [address], [facility] [address] [place] [address] 07/15/2024 10:45 EDT Office Visit [facility] [address] [place] [address] Gianfranco Flowers MD 130 [facility] [address] [place] [address] documented as of this encounter Visit Diagnoses Not on filedocumented in this encounter Discontinued Medications Medication Sig Discontinue Reason Start Date End Da te clopidogreL (PLAVIX) 75 mg tablet Take 1 Tablet by mouth daily. 12/06/2021 05/25/2022 documented as of this encounter Care Teams Electroplating Laborer Relationship Specialty Start Date End Date Nivia Tinsley MD [address] [place], [place] [phone] PCP - General Family Medicine - Primary Care 08/27/19 Zheng Tapia MD [address] [place] [address] [address] [place] [address] Internal Medicine - Primary Care 09/01/19 Shazia Burks MD [address] [place] [address] Neurology 09/01/19 Tony Baron, FRANCK [address] [place] [address] Lay Out And Detail Drafter 09/01/19 Keira Paniagua MD [address] [place] [address] [address] [place] [phone] Cardiovascular Disease 09/06/20 Siva Perkins MD [address] [place] [address] Neurology 09/06/20 documented as of this encounter
--- OUTSIDE RECORDS SUMMARY | 2024-04-29 18:19 | XMS_ITS | Encounter Summary ---
Author Organization [facility] Address [address] [place] [address] Care Team Providers Care Renal Social Worker Name Role Phone Nivia Tinsley MD Primary Care Provider Zheng aTpia MD Unavailable Shazia Burks MD Unavailable [phone] Tony Baron OD Unavailable [phone] Keira Paniagua MD Unavailable Siva Perkins MD Unavailable [phone] Sheryl Schwab RN Unavailable Ladonna Candelario Unavailable Unavailable Reason for Visit * Reason Onset Date Comments Suture / Staple Removal 02/24/2022 Encounter Details Date Type Department Care Team (Late st Contact Info) Description 02/24/2022 Telephone [facility] Integrative Family Medicine [facility] [address] [place] [address] Nivia Tinsley MD [address] [place] [address] Suture / Staple Removal Social History Tobacco Use Types Packs/Day Years [...] slept in a snf (including now)? No 12/26/2021 Interpersonal Safety Answer [...] Telephone Encounter - Phil Vickers RN - 02/24/2022 1141 EDT [facility] will remove these for the patient at home. FYI to PCP. * Telephone Encounter - Phil Vickers RN - 02/24/2022 1028 EDT Ok to schedule with [facility]. Should be less than 10 sutures, otherwise, we may need to come up with another plan. * Telephone Encounter - Avis Mckeon - 02/24/2022 0822 EDT Pt calling saying she was released from the hospital Sunday, Has stitches above right eye that need to be removed on Sunday she said, No later?? I don't see anything on Sunday except the 15min w/RF?? She can only have a ride in to us in the AM so where can we fit her in?? documented in this encounter Plan of Treatment Upcoming Encounters Date Type Department Care Team (Late st Contact Info) Description 06/11/2024 12:45 EDT Office Visit [facility] Ophthalmology - [place] [address] [place] [address] Santiago Anthony MD [address] [facility] 5 [place] [address] 07/15/2024 10:45 EDT Office Visit [facility] [address] [place], [place] [phone] Gianfranco Flowers MD 130 [facility] [address] [place] [phone] documented as of this encounter Visit Diagnoses Not on filedocumented in this encounter Care Teams Renal Social Worker Relationship Specialty Start Date End Date Nivia Tinsley MD [address] [place] [phone] PCP - General Family Medicine - Primary Care 08/27/19 Zheng Tapia MD [address] [place] [address] [address] [place] [address] Internal Medicine - Primary Care 09/01/19 Shazia Burks MD [address] [place], [place] [address] Neurology 09/01/19 Tony Baron OD [address] [place] [phone] Hand Molder 09/01/19 Keira Paniagua MD [address] [place] [address] [address] [place] [address] Cardiovascular Disease 09/06/20 Siva Perkins MD [address] [facility] [place] [address] Neurology 09/06/20 Sheryl Schwab RN [address] [place] [address] Hydro Sprayer Operator 01/23/24 01/23/24 Ladonna Candelario Hydro Sprayer Operator 01/23/24 documented as of this encounter
--- OUTSIDE RECORDS SUMMARY | 2024-04-29 18:19 | XMS_ITS | Encounter Summary ---
Author Organization [facility] Address [address] [place] [address] Care Team Providers Care Slicing Machine Tender Name Role Phone Nivia Tinsley MD Primary Care Provider [phone] Zheng Tapia MD Unavailable Shazia Burks MD Unavailable [phone] Tony Baron OD Unavailable [phone] Keira Paniagua MD Unavailable [phone] Siva Perkins MD Unavailable [phone] Reason for Visit * Reason Comments Eye Problem Wet AMD Left eye Encounter Details Date Type Department Care Team (Late st Contact Info) Description 07/12/2022 8:30 EDT Office Visit [facility] [address] [place] [address] Santiago Anthony MD [address] [facility], [address] [place] [address] Social History Tobacco Use Types [...] slept in a detention (including now)? No 12/26/2021 Interpersonal Safety Answer [...] Progress Notes * Santiago Anthony MD - 07/12/2022 0830 EDT Chief Complaint Patient presents with ??? Eye Problem Wet AMD Left eye Comments Eye Problem Additional comments: Wet AMD Left eye HPI Location: Pain: 0 - No pain Quality: Severity: Duration: Timing: Lasts: Context: Wet AMD - Left eye - S/p Eylea 04/26/22. She reports vision is mostly stable. She has an appointment set up to see Dr Vazquez. No new floaters, flashes or pain in the eyes. Modifying factors: Associated Signs & Symptoms: Visual Fluctuations: None Attestation: Base Eye Exam Visual Acuity (Snellen - Linear) Right Left Dist cc 20/300 20/300 -1 Correction: Glasses Tonometry (Applanation, 8:49) Right Left Pressure 18 17 Pupils Pupils Dark APD Right PERRL 3 None Left PERRL 3 None Neuro/Psych Oriented x3: Yes Mood/Affect: Normal Dilation Both eyes: Tropicamide 1% @ 8:50 Slit Lamp and Fundus Exam Slit Lamp Exam Right Left Lids/Lashes Normal Normal Conjunctiva/Sclera White and quiet White and quiet Cornea Clear Clear Anterior Chamber Deep and quiet Deep and quiet Iris Pseudoexfoliation material Pseudoexfoliation material Lens Posterior chamber intraocular lens Posterior chamber intraocular lens Fundus Exam Right Left Disc increase c/d increase c/d Macula RPE changes RPE changes Periphery blond fundus blond fundus All five layers of the cornea are normal unless otherwise specified. Please refer to large retinal drawing. Intravitreal Injection, Pharmacologic Agent - OS - Left Eye Time Out 07/12/2022. 9:15. Confirmed correct patient, procedure, site, and patient consented. Anesthesia Topical anesthesia was used. Anesthetic medications included Tetracaine 0.5%, Proparacaine 0.5%. Procedure Preparation included eyelid speculum, 5% betadine to ocular surface. A 30 gauge needle was used. Injection: 2 mg aflibercept (EYLEA) intravitreal syringe [facility]: 17860-369-62, Lot: [id number], Expiration date: 02/09/2023 Route: intravitreal, Site: Left Eye Post-op Post injection exam found visual acuity of at least counting fingers. The patient tolerated the procedure well. There were no complications. The patient received written and verbal post procedure care education. Post injection medications were not given. IMPRESSION: 1. Exudative age-related macular degeneration of left eye, unspecified stage (HCC) OCT, RETINA - OU- BOTH EYES INTRAVITREAL INJECTION, PHARMACOLOGIC AGENT - OS - LEFT EYE aflibercept (EYLEA) intravitreal syringe 2 mg PLAN: Wet age related macular degeneration left eye Discussed with patient about ongoing treatment plan. Treat vs observe ??Pt chose to have injection today and will think about next visit. Not as sure that they help her per pt She will consider her options, but def wants inject today Recommend Eylea left eye Patient agrees Eylea done to left eye today F/u as scheduled ?? I, Dr. Santiago Anthony, have performed my own HPI and reviewed the tech's ROS. I have also reviewed thepatient's past medical, family, social and surgical history, as well as the patient's medications, allergies, and problem list. I am scribing for Dr.Brian Shahriar Anthony MD while he is personally performing the service. LESA Ayala (Scribe) documented in this encounter Plan of Treatment Upcoming Encounters Date Type Department Care Team (Late st Contact Info) Description 06/11/2024 12:45 EDT Office Visit [facility] [address] [address] Santiago Anthony MD [address] [facility], [address] [place] [address] 07/15/2024 10:45 EDT Office Visit [facility] [address] [place], [place] [id number] Gianfranco Flowers MD [address] [facility] [address] [place] [address] documented as of this encounter Procedures Procedure Name Priority Date/Time Associated Diagnosis Comments OCT, RETINA - OU - BOTH EYES Routine 07/13/2022 12:05 EDT Exudative age-related macular degeneration of left eye, unspecified stage (HCC-CMS) INTRAVITREAL INJECTION, PHARMACOLOGIC AGENT - OS - LEFT EYE Routine 07/12/2022 8:30 EDT Exudative age-related macular degeneration of left eye, unspecified stage ([facility]) documented in this encounter Results * OCT, RETINA - OU - BOTH EYES (07/13/2022 12:05 EDT) Santiago Anthony MD OPHTH TOMOGRAPHY [facility] * INTRAVITREAL INJECTION, PHARMACOLOGIC AGENT - OS - LEFT EYE (07/12/2022 8:30 EDT) Narrative [facility] - 07/13/2022 12:06 EDT Time Out 07/12/2022. 9:15. Confirmed correct patient, procedure, site, and patient consented. Anesthesia Topical anesthesia was used. Anesthetic medications included Tetracaine 0.5%, Proparacaine 0.5%. Procedure Preparation included eyelid speculum, 5% betadine to ocular surface. A 30 gauge needle was used. Injection: 2 mg aflibercept (EYLEA) intravitreal syringe ??[facility]: 68711-946-30, Lot: [id number], Expiration date: 02/09/2023 ??Route: intravitreal, Site: Left Eye Post-op Post injection exam found visual acuity of at least counting fingers. The patient tolerated the procedure well. There were no complications. The patient received written and verbal post procedure care education. Post injection medications were not given. Santiago Anthony MD OPHTH CLINIC PROCEDU RES [facility] Organization Address City/State/ZIP Co de Phone Number [facility] documented in this encounter Visit Diagnoses Diagnosis Exudative age-related macular degeneration of left eye, unspecified stage ([facility])- Primary documented in this encounter Administered Medications Inactive Administered Medications - up to 3 most recent administrations Medication Order MAR Action Action Date Dose Rate Site aflibercept (EYLEA) intravitreal syringe 2 mg 2 mg, intravitreal, Starting on Sun07/12/22 at 0830, Until Sun07/12/22 at 0830, Routine Given 07/12/2022 8:30 EDT 2 mg Left Eye documented in this encounter Historical Medications * This list may reflect changes made after this encounter. Medication Sig Dispensed Refills Start Date End Date acetaminophen 325 mg capsule Take by mouth 2 times daily. 11/22/2023 added in this encounter Eye Exam Visual Acuity (Snellen - Linear) Right eye Left eye Dist cc 20/300 20/300 -1 Correction: Glasses Tonometry (Applanation, 8:49) Right eye Left eye Pressure 18 17 Pupils Pupils Dark APD Right eye PERRL 3 None Left eye PERRL 3 None Neuro/Psych Oriented x3: Yes Mood/Affect: Normal Dilation Both eyes: Tropicamide 1% @ 8:50 Slit Lamp Exam Right eye Left eye Lids/Lashes Normal Normal Conjunctiva/Sclera White and quiet White and russel et Cornea Clear Clear Anterior Chamber Deep and quiet Deep and quiet Iris Pseudoexfoliation material Pseud oexfoliation material Lens Posterior chamber in traocular lens Posterior chamber intraocular lens Fundus Exam Right eye Left eye Disc increase c/d increase c/d Macula RPE changes RPE changes Periphery blond fundus blond fundus Care Teams Slicing Machine Tender Relationship Specialty Start Date End Date Nivia Tisnley MD [address] [place] [address] PCP - General Family Medicine - Primary Care 08/27/19 Zheng Tapia MD [address] [place] [address] [address] [place] [address] Internal Medicine - Primary Care 09/01/19 Shazia Burks MD [address] [place] [address] Neurology 09/01/19 Tony Baron OD [address] [place] [phone] Sales And Service Change Leader 09/01/19 Keira Paniagua MD [address] [place] [address] [address] [place] [address] Cardiovascular Disease 09/06/20 Siva Perkins MD [address] [facility] [place] [address] Neurology 09/06/20 documented as of this encounter
--- OUTSIDE RECORDS SUMMARY | 2024-04-29 18:19 | XMS_ITS | Encounter Summary ---
Author Organization [facility] Address [address] [place] [address] Care Team Providers Care Systems Technician Name Role Phone Nivia Tinsley MD Primary Care Provider Zheng Tapia MD Unavailable Shazia Burks MD Unavailable [phone] Tony Baron OD Unavailable [phone] Keira Paniagua MD Unavailable [phone] Siva Perkins MD Unavailable [phone] Reason for Visit * Reason Comments New Patient Visit Rash on the shins an d the neck. Currently using cortizone cream and lotion. Itchy. * Consult (Routine/Next Available) - Order Cancelled Specialty Diagnoses / Procedures Referred By Lesa alves Referred To Contact Dermatology Diagnoses Nivia [place] MD [address] [place] [address] [facility] [address] [place] [phone] Referral ID Status Reason Start Date Expiration Date Visits Requested Visits Authorized [id number] Order Cancelled Specialty Services Required 12/20/2020 1 1 Encounter Details Date Type Department Care Team (Late st Contact Info) Description 04/17/2022 9:20 EDT Office Visit [facility] D[facility]atology [address] [place] [address] Emmanuelle Padgett MD [address] [facility] [address] [place] [address] Venous stasis dermatitis of both lower extremities (Primary Dx); Xerosis cutis; Seborrheic keratoses Social History Tobacco Use Types Packs/Day Years [...] slept in a halfway (including now)? No 12/26/2021 Interpersonal Safety Answer [...] suspected to have Coronavirus/COVID-19? No / Unsure 04/10/2022 8:41 EDT documented as of this encounter Functional [...] No 02/21/2022 documented as of this encounter Patient Instructions * Patient Instructions* Michelle Esparza - 04/17/2022 9:20 EDT For rash of the legs: - Keep from scratching at legs - Apply triamcinolone cream to legs twice a day for up to 2 weeks as needed for itch - Can also try over the counter Sarna lotion or CeraVe anti-itch. These can be used as often as needed for itch. For additional cooling effect, place in fridge before use. - As rash is currently flaring, recommend using an ointment like Aquaphor or Vaseline 1-2 times daily. As rash improves, can continue to use ointment or switch to using a cream. Continue to use 1-2 times daily. Lotions not moisturizing enough. - Avoid using products with heavy scents on legs - Wear compression socks as tolerated and elevate legs when possible. For true elevation of legs, should raised legs above the level of the heart. [facility] [place] documented in this encounter Ordered Prescriptions Prescription Sig Dispensed Refills Start Date End Da te triamcinolone (KENALOG) 0.1 % cream Apply topically to affected area 2 times daily. For up to 2 weeks to rash on legs and neck. Do not apply to face, armpit or groin. 60 g 3 04/17/2022 08/28/2023 documented in this encounter Progress Notes * Michelle Esparza - 04/17/2022 0920 EDT Dermatology Outpatient Visit Note Chief Complaint Patient presents with ??? New Patient Visit Rash on the shins and the neck. Currently using cortizone cream and lotion. Itchy. Dermatologic History: No specialty comments available. Last Dermatology office visit: NPV SUBJECTIVE Ms. Sullivan is a 81 y.o. female who presents for new evaluation and treatment for the complaint listed above. She reports an itchy rash on her bilateral shins. Slowly improving. Developed following a stroke. Has been in a wheelchair since stroke. Following stroke, she had a heart attack. When asked she denies increased swelling of the legs. Has a prescription for prn lasix. Only takes when she sees swelling of the legs. Usually only needs to evevate legs for swelling to decrease. Treating rash with OTC hydrocortisone, which is the only thing that helps ease itch. Also using an OTC lotion. Also has a bumpy rash of the neck. Will scratch bumps to the point of bleeding. OBJECTIVE Ms. Sullivan is female with Robert type II skin. A focused exam of the lower legs and neck was performed. The examination was significant for the following: - lower legs, right > left: pink ill defined broad thinly scaled xerotic low plaque, no open areas - neck: pink ill defined patches with several stuck on skin colored warty papules within ASSESSMENT/PLAN Venous stasis dermatitis of both lower extremities Xerosis cutis -Right now mostly xerosis cutis, do not use topical steroid unless flaring - Keep from scratching legs - If flaring apply triamcinolone cream to legs twice a day for up to 2 weeks as needed for itch - Recommend over the counter Sarna lotion or CeraVe anti-itch. These can be used as often as neededfor itch. For additional cooling effect, place in fridge before use. - As rash is currently flaring, recommend using an ointment like Aquaphor or Vaseline 1-2 times daily. As rash improves, can continue to use ointment or switch to using a cream. Continue to use 1-2 times daily. Lotions not moisturizing enough. - Avoid using products with heavy scents on legs - Wear compression socks as tolerated and elevate legs when possible. For true elevation of legs, should raised legs above the level of the heart. - Dicussed that if rash flares, pt should call office to discuss further treatment options. May tryincreasing lasix or unna boots -Discussed that we want to prevent any ulcerations to the lower legs Seborrheic keratoses - of neck -The benign nature of this lesion was discussed. -No further treatment is needed to the area. -Can put Sarna/Cerave anti itch on this as well She will Return if symptoms worsen or fail to improve. or in the interim should problems arise. Scribe Attestation By time stamping my name below, I attest that this documentation has been prepared under the direction and in the presence of the provider listed as the provider on this encounter. Michelle Esparza 04/17/2022 9:53 Provider Attestation: By time stamping my name below, I, as the provider for this encounter, personally performed the services described in this documentation. All medical record entries made by the scribed were at my direction and in my presence. I have reviewed the chart and an discharge instructions and agree that the record reflects my personal performance and is accurate and complete. Emmanuelle Padgett MD 04/17/2022 12:04 documented in this encounter Plan of Treatment Upcoming Encounters Date Type Department Care Team (Late st Contact Info) Description 06/11/2024 12:45 EDT Office Visit [facility] - [place] [address] [place], [place] [phone] Santiago Anthony MD [address] [place] [address] [address] [place] [address] 07/15/2024 10:45 EDT Office Visit [facility] [address] [place], [place] [phone] Gianfranco Flowers MD [address] [facility]- [address] [place] [address] documented as of this encounter Visit Diagnoses Diagnosis Venous stasis dermatitis of both lower extremities- Primary Xerosis cutis Other specified disease of sebaceous glands Seborrheic keratoses documented in this encounter Historical Medications * This list may reflect changes made after this encounter. Medication Sig Dispensed Refills Start Date End Date hypromellose (ISOPTO TEARS) 0.5 % ophthalmic solution Place 1 Drop into both eyes 3 times daily. added in this encounter Orders Equipment Count Last Ordered Date First Orde red Date COMPRESSION STOCKINGS 1 04/17/2022 documented in this encounter Care Teams Systems Technician Relationship Specialty Start Date End Date Nivia Tinsley MD [address] [place] [id number] PCP - General Family Medicine - Primary Care 08/27/19 Zheng Tapia MD [address] [place] [address] [address] [place] [phone] Internal Medicine - Primary Care 09/01/19 Shazia Burks MD [address] [place] [address] Neurology 09/01/19 Tony Baron OD [address] [place] [phone] Ror Engineer 09/01/19 Keira Paniagua MD [address] [place] [phone] Cardiovascular Disease 09/06/20 Siva Perkins MD [address] [place] [address] [place] [address] Neurology 09/06/20 documented as of this encounter
--- OUTSIDE RECORDS SUMMARY | 2024-04-29 18:19 | XMS_ITS | Encounter Summary ---
Author Organization [facility] Address [address] [place] [address] Care Team Providers Care Physical Director Name Role Phone Nivia Tinsley MD Primary Care Provider Zheng Tapia MD Unavailable Shazia Burks MD Unavailable [phone] Tony Baron OD Unavailable [phone] Keira Paniagua MD Unavailable [phone] Siva Perkins MD Unavailable [phone] Reason for Visit * Reason Comments Eye Problem Encounter Details Date Type Department Care Team (Late st Contact Info) Description 01/31/2022 13:15 EDT Office Visit [facility] Ophthalmology [facility] [address] [place], [place] [id number] Santiago Anthony MD [address] [facility], [address] [place] [address] Social History Tobacco Use Types [...] slept in a alf (including now)? No 12/26/2021 Interpersonal Safety Answer [...] you have serious difficulty h earing? No 11/15/2021 Are you blind or do you have serious difficulty seeing, even when wearing glasses? Yes 11/15/2021 Do you have serious difficul ty walking or climbing stairs? (5 years old or older) Yes 11/15/2021 Do you have difficulty dress ing or bathing? (5 years old or older) Yes 11/15/2021 Because of a physical, menta l, or emotional condition, do you have difficulty doing errands alone such as visiting a doctor's office or shopping? (15 years old or older) Yes 11/15/2021 Cognitive Status Response Date of Assessm ent Because of a physical, menta l, or emotional condition, do you have serious difficulty concentrating, remembering, or making decisions? (5 years old or older) No 11/15/2021 documented as of this encounter Progress Notes * Santiago Anthony MD - 01/31/2022 1315 EDT Chief Complaint Patient presents with ??? Eye Problem Comments Wet AMD left eye S/p Eylea left 12/30/21 HPI Location: Both eyes Pain: 0 - No pain Quality: Blurry Severity: Severe Duration: Months Timing: Constant Lasts: Continuous Context: pt states her left eye vision has not improved since having eylea injection. 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 pt can read with closed circut tv and does fine with this. when eyes are closed at night sees black circles and recently sees flashing specks invision Associated Signs & Symptoms: no pain Visual Fluctuations: Flashes, Floaters Attestation: Base Eye Exam Visual Acuity (Snellen - Linear) Right Left Dist cc 20/300 20/400 Dist ph cc NI NI Tonometry (Applanation, 13:36) Right Left Pressure 16 16 Pupils Pupils Right PERRL Left PERRL Visual Capellan Right Left Full Full Extraocular Movement Right Left Nystagmus Nystagmus -- -- -- -- -- -- -- -- -- -- -- -- -- -- -- -- Neuro/Psych Oriented x3: Yes Mood/Affect: Normal Dilation Both eyes: Phenylephrine 2.5%, Tropicamide 1% @ 13:37 Slit Lamp and Fundus Exam Slit Lamp Exam Right Left Lids/Lashes Normal Normal Conjunctiva/Sclera White and quiet White and quiet Cornea Clear Clear Anterior Chamber Deep and quiet Deep and quiet Iris Pseudoexfoliation material Pseudoexfoliation material Lens Posterior chamber intraocular lens Posterior chamber intraocular lens Fundus Exam Right Left Disc increase c/d increase c/d Periphery blond fundus blond fundus All five layers of the cornea are normal unless otherwise specified. Please refer to large retinal drawing. OCT, Retina - OU - Both Eyes Right Eye Quality was good. Scan locations included subfoveal. Findings include (Atrophy ). Left Eye Quality was good. Scan locations included subfoveal. Findings include (Atrophy ). IMPRESSION: 1. Exudative age-related macular degeneration of left eye, unspecified stage ([facility]) OCT, RETINA - OU- BOTH EYES 2. Albinism ([facility]) PLAN: Wet AMD left eye Last eylea injection 12/30/[address] Juarez Looks quiet today Unfortunately no imaging or exam notes to compare to Evidently had injection one month ago and due next week for eylea left She wants to transfer to hopefully see me at [place] office Recommend returning to Dr. 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 Anthony in [place] on April 26 I, Dr. Santiago Anthony, have performed my [...] Description 06/11/2024 12:45 EDT Office Visit [facility] Ophthalmology - [address] [address] Santiago Anthony MD [address] [facility], [address] [place] [address] 07/15/2024 10:45 EDT Office Visit [facility] [address] [place], [place] [phone] Gianfarnco Flowers MD [address] [facility] [address] [place] [address] documented as of this encounter Procedures Procedure Name Priority Date/Time Associated Diagnosis Comments OCT, RETINA - OU - BOTH EYES Routine 01/31/2022 14:01 EDT Exudative age-related macular degeneration of left eye, unspecified stage ([facility]) documented in this encounter Results * OCT, RETINA - OU - BOTH EYES (01/31/2022 14:01 EDT) Narrative [facility] POINT OF CARE - 01/31/2022 14:24 EDT Right Eye Quality was good. Scan locations included subfoveal. Findings include (Atrophy ). Left Eye Quality was good. Scan locations included subfoveal. Findings include (Atrophy ). Santiago Anthony MD OPHTH TOMOGRAPHY [facility] POINT OF CARE documented in this encounter Visit Diagnoses Diagnosis Exudative age-related macular degeneration of left eye, unspecified stage ([facility])- Primary Albinism ([facility]) Other disturbances of aromatic amino-acid metabolism documented in this encounter Eye Exam Visual Acuity (Snellen - Linear) Right eye Left eye Dist cc 20/300 20/400 Dist ph cc NI NI Tonometry (Applanation, 13:36) Right eye Left eye Pressure 16 16 Pupils Pupils Right eye PERRL Left eye PERRL Visual Capellan Right eye Left eye Full Full Extraocular Movement Right eye Left eye Nystagmus Nystagmus Up gaze -- -- -- -- -- -- Right/left gaze -- -- -- -- -- -- Down gaze -- -- -- -- -- -- Neuro/Psych Oriented x3: Yes Mood/Affect: Normal Dilation Both eyes: Phenylephrine 2.5 %, Tropicamide 1% @ 13:37 Slit Lamp Exam Right eye Left eye Lids/Lashes Normal Normal Conjunctiva/Sclera White and quiet White and russel et Cornea Clear Clear Anterior Chamber Deep and quiet Deep and quiet Iris Pseudoexfoliation material Pseud oexfoliation material Lens Posterior chamber in traocular lens Posterior chamber intraocular lens Fundus Exam Right eye Left eye Disc increase c/d increase c/d Periphery blond fundus blond fundus Care Teams Physical Director Relationship Specialty Start Date End Date Nivia Tinsley MD [address] [place] [address] PCP - General Family Medicine - Primary Care 08/27/19 Zheng Tapia MD [address] [place] [address] [address] [place] [address] Internal Medicine - Primary Care 09/01/19 Shazia Burks MD [address] [place] [address] Neurology 09/01/19 Tony Baron, OD [address] [place] [phone] Enlisted [employer]/Aerial Observer/Gunner 09/01/19 Keira Paniagua MD [address] [place] [address] [address] [place] [address] Cardiovascular Disease 09/06/20 Siva Perkins MD [address] [facility] [place] [address] Neurology 09/06/20 documented as of this encounter
--- OUTSIDE RECORDS SUMMARY | 2024-04-29 18:19 | XMS_ITS | Encounter Summary ---
Author Organization [facility] Address [address] [place] [address] Care Team Providers Care Virginia Line Attendant Name Role Phone Nivia Tinsley MD Primary Care Provider [phone] Zheng Tapia MD Unavailable Shazia Burks MD Unavailable [phone] Tony Baron OD Unavailable [phone] eKira Paniagua MD Unavailable [phone] Siva Perkins MD Unavailable [phone] Encounter Details Date Type Department Care Team (Latest Contact Info) Description 04/10/2022 Travel Social History Tobacco Use Types Packs/Day [...] in a long term (including now)? No 12/26/2021 Interpersonal Safety Answer [...] Info) Description 06/11/2024 12:45 EDT Office Visit [facility] Ophthalmology - [address] [phone] Santiago Anthony MD [address] [place] [address], [facility] [address] [place] [address] 07/15/2024 10:45 EDT Office Visit [facility] Cardiology Clinic [address] [place], [place] [phone] Gianfranco Flowers MD [address] [facility] [address] [place] [phone] documented as of this encounter Visit Diagnoses Not on filedocumented in this encounter Care Teams Virginia Line Attendant Relationship Specialty Start Date End Date Nivia Tinsley MD [address] [place] [phone] PCP - General Family Medicine - Primary Care 08/27/19 Zheng Tapia MD [address] [place] [address] [address] [place] [address] Internal Medicine - Primary Care 09/01/19 Shazia Burks MD [address] [place], [place] [address] Neurology 09/01/19 Tony Baron OD [address] [place] [phone] Network Applications Specialist 09/01/19 Keira Paniagua MD [address] [place] [address] Cardiovascular Disease 09/06/20 Siva Perkins MD [address] [facility] [place] [address] Neurology 09/06/20 documented as of this encounter
--- OUTSIDE RECORDS SUMMARY | 2024-04-29 18:19 | XMS_ITS | Encounter Summary ---
Author Organization [facility] Address [address] [place] [address] Care Team Providers Care Environmental Geologist Name Role Phone Nivia Tinsley MD Primary Care Provider [phone] Zheng Tapia MD Unavailable Shazia Burks MD Unavailable [phone] Tony Baron OD Unavailable [phone] Keira Paniagua MD Unavailable [phone] Siva Perkins MD Unavailable [phone] Reason for Visit * Reason Onset Date Comments Patient Information Update 04/06/2022 Encounter Details Date Type Department Care Team (Late st Contact Info) Description 04/06/2022 Telephone [facility] Integrative Family Medicine [facility] [address] [place], [place] [phone] Nivia Tinsley MD [address] [place] [address] Patient Information Update Social History Tobacco Use Types Packs/Day Years [...] * Telephone Encounter - Jay Cevallos - 04/06/2022 1545 EDT Added to pt's appt notes for 04/10 appt * Telephone Encounter - Nivia Tinsley MD - 04/06/2022 1435 EDT Would she like an appointment to discuss? * Telephone Encounter - Jay Cevallos - 04/06/2022 1020 EDT Pt is being discharged from [facility]. Caregiver and HH physical therapy noted that pt has increased fatigue and anxiety documented in this encounter Plan of Treatment Upcoming Encounters Date Type Department Care Team (Late st Contact Info) Description 06/11/2024 12:45 EDT Office Visit [facility] Ophthalmology [facility] [address] [place] [address] Santiago Anthony MD [address] [place] [address], [facility] [address] [place] [phone] 07/15/2024 10:45 EDT Office Visit [facility] Cardiology Clinic [address] [place] [address] Gianfranco Flowers MD [address] [place] [address] [address] [place] [address] documented as of this encounter Visit Diagnoses Not on filedocumented in this encounter Care Teams Environmental Geologist Relationship Specialty Start Date End Date Nivia Tinsley MD [address] [place] [address] PCP - General Family Medicine - Primary Care 08/27/19 Zheng Tapia MD [address] [place] [address], [place] [address] Internal Medicine - Primary Care 09/01/19 Shazia Burks MD [address] [place] [address] Neurology 09/01/19 Tony Baron OD [address] [place] [phone] Manager Respiratory 09/01/19 Keira Paniagua MD [address] [place] [address] [address] [place] [address] Cardiovascular Disease 09/06/20 Siva Perkins MD [address] [facility] [place] [phone] Neurology 09/06/20 documented as of this encounter
--- OUTSIDE RECORDS SUMMARY | 2024-04-29 18:19 | XMS_ITS | Encounter Summary ---
Author Organization [facility] Address [address] [place] [address] Care Team Providers Care Pipe Coremaker Name Role Phone Nivia Tinsley MD Primary Care Provider [phone] Zheng Tapia MD Unavailable Shazia Burks MD Unavailable [phone] Tony Baron OD Unavailable [phone] Keira Paniagua MD Unavailable [phone] Siva Perkins MD Unavailable [phone] Reason for Visit * Reason Comments Follow-up Fatigue Anxiety Encounter Details Date Type Department Care Team (Late st Contact Info) Description 04/10/2022 9:00 EDT Office Visit [facility] [address] [phone] Nivia Tinsley MD [address] [place] [address] Other fatigue (Primary Dx); Anxiety; Weakness; Acquired hypothyroidism; Vitamin D deficiency Social History [...] you? Never 12/26/2021 How often does anyone, donnau glenda family, insult, scream, curse or threaten [...] 8:41 EDT documented as of this encounter Last Filed Vital Signs Vital Sign Reading Time Taken Comments Blood Pressure 128/72 04/10/2022 0854 EDT Pulse 76 04/10/2022 0854 EDT Temperature - - Respiratory Rate 16 04/10/2022 0854 EDT Oxygen Saturation - - Inhaled Oxygen Concentration - - Weight 72.1 kg (159 lb) 04/10/2022 0854 EDT Height 165.1 cm (5' 5) 04/10/2022 0854 EDT Body Mass Index 26.46 04/10/2022 0854 EDT documented in this encounter Functional Status [...] as of this encounter Progress Notes * Nivia Tinsley MD - 04/10/2022 0900 EDTAssociated Order(s): EKG 12-LEAD Post-Procedure Diagnose(s): Other fatigue; Weakness Images from the original note were not included. [facility] Primary Care Subjective: Chief Complaint(s): Follow-up, Fatigue, and Anxiety HPI: 81-year-old woman with CAD and NSTEMI status post LAD stent placement in November 2021, heart failure with preserved ejection fraction,??visual impairment, prediabetes,??GERD,??hypothyroidism,??hypertension, hyperlipidemia, and a??CVA- thalamic infarct??who fell out of her wheelchair after vomiting and suffered a forehead laceration. She was weak and was admitted 02/21/22. She was d/c the next day. She has had PT through , and they called on 04/06/22 and stated that the Pt was being discharged from [facility]. Caregiver and physical therapy noted that pt has increased fatigue and anxiety. Behavioral Health Screen PHQ-2 Little interest or pleasure in doing things?: Several days Feeling down, depressed, or hopeless?: Several days PHQ-2 SUBTOTAL: 2 PHQ-9 Trouble falling or staying asleep, or sleeping too much?: Several days Feeling tired or having little energy?: More than half the days Poor appetite or overeating?: Not at all Feeling bad about yourself - or that you are a failure or have let yourself or your family down?: Not at all Trouble concentrating on things, such as reading the newspaper or watching TV?: Several days Moving or speaking so slowly that other people have noticed? Or the opposite - being so fidgety or restless that you have been moving around a lot more than usual?: Not at all Thoughts that you would be better off , or of hurting yourself in some way?: Not at all PHQ-9 TOTAL: 6 PHQ-9 Score Details: Mild Depression JASEN-7 Feeling nervous, anxious, or on edge: Not at all Not being able to stop or control worrying: Not at all Worrying too much about different things: Not at all Trouble relaxing: Not at all Being so restless that it is hard to sit still: Not at all Becoming easily annoyed or irritable: Not at all Feeling afraid as if something awful might happen: Not at all JASEN-7 Total Score: 0; JASEN-2 Subtotal: 0 JASEN-7 Score Interpretation: Minimal Anxiety SASQ AUDIT-10 Prescription Misuse DAST-10 I have reviewed patient's tobacco history: reports that she has never smoked. She has never used smokeless tobacco. I have reviewed current problem list and current medications. ROS: Review of Systems Constitutional: Positive for malaise/fatigue. Psychiatric/Behavioral: The patient is nervous/anxious. Objective: Examination: Vitals: BP 128/72 Pulse 76 Resp 16 Ht 165.1 cm (65) Wt 72.1 kg (159 lb) BMI 26.46 kg/m?? Body mass index is [...] Content: Thought content normal. Judgment: Judgment normal. EKG 12-LEAD Date/Time: 04/10/2022 9:10 Performed by: Nivia Tinsley MD Authorized by: Nivia Tinsley MD Comparison: compared with previous ECG from 11/16/2021 Similar to previous ECG Rhythm: sinus rhythm and A-V block Rate: normal QRS axis: left Conduction: 1st degree T flattening: V4 Other findings: LVH Clinical impression: abnormal ECG Comments: IVCD Data reviewed with patient (past results): Results for orders placed or performed during the hospital encounter of 02/21/22 COVID-19 TESTING Specimen: Anterior nares; Swab Result Value Ref Range COVID-19 rt-PCR Result Negative Negative Performing Lab Cepheid GeneXpert [facility] Lab C. DIFFICILE PCR ([facility], [facility], [facility], [facility]) Specimen: Rectum; Feces Result Value Ref Range C. difficile PCR Negative Negative 027, NAP1, BI Strain Presumptive Negative Negative, Presumptive Negative COMPLETE BLOOD COUNT AND DIFFERENTIAL Result Value Ref Range WBC 12.14 4.00 - 12.40 K/cmm RBC 4.46 3.86 - 5.04 M/cmm Hemoglobin 14.3 11.6 - 15.2 gm/dL HCT 42.1 34.9 - 44.4 % MCV 94 81 - 98 fl MCH 32.1 26.7 - 33.3 pg MCHC 34.0 32.1 - 35.9 gm/dL RDW-CV 13.2 <14.7 % RDW-SD 45.5 <50.4 fl PLT 212 141 - 377 K/cmm MPV 10.2 9.5 - 12.7 fl Neutrophils 85.3 % Lymphocytes 5.6 % Monocytes 6.9 % Eosinophils 1.7 % Basophils 0.3 % Immature Grans 0.2 % Absolute Neutrophils 10.34 (H) 2.20 - 8.85 K/cmm Absolute Lymphocytes 0.68 (L) 1.09 - 3.30 K/cmm Absolute Monocytes 0.84 (H) 0.10 - 0.80 K/cmm Absolute Eosinophils 0.21 0.03 - 0.61 K/cmm Absolute Basophils 0.04 0.01 - 0.11 K/cmm Absolute Immature Grans 0.03 0.00 - 0.06 K/cmm Type of Differential: Auto COMPREHENSIVE METABOLIC PANEL (CMP) Result Value Ref Range Sodium 135 (L) 136 - 145 mmol/L Potassium 3.8 3.5 - 5.0 mmol/L Chloride 102 96 - 110 mmol/L CO2 Total 22 22 - 32 mmol/L Glucose 126 (H) 70 - 100 mg/dL BUN 24 10 - 26 mg/dL Creatinine 0.73 0.52 - 1.04 mg/dL eGFR 82 >60 mL/min/1.73m2 Total Protein 6.9 6.3 - 8.2 g/dL Albumin 4.0 3.4 - 4.9 g/dL Alkaline Phosphatase 102 38 - 126 U/L AST 28 15 - 46 U/L ALT 27 <35 U/L Bilirubin, Total 0.6 <1.4 mg/dL Calcium 8.6 8.5 - 10.5 mg/dL Albumin/Globulin Ratio 1.4 1.0 - 2.5 Anion Gap 11 5 - 14 C REACTIVE PROTEIN Result Value Ref Range C-Reactive Protein <5.0 <10.0 mg/L BASIC METABOLIC PANEL (BMP) Result Value Ref Range Sodium 136 136 - 145 mmol/L Potassium 4.3 3.5 - 5.0 mmol/L Chloride 105 96 - 110 mmol/L CO2 Total 23 22 - 32 mmol/L Anion Gap 8 5 - 14 Glucose 134 (H) 70 - 100 mg/dL Calcium 8.1 (L) 8.5 - 10.5 mg/dL BUN 19 10 - 26 mg/dL Creatinine 0.92 0.52 - 1.04 mg/dL eGFR 62 >60 mL/min/1.73m2 COMPLETE BLOOD COUNT Result Value Ref Range WBC 5.74 4.00 - 12.40 K/cmm RBC 3.95 3.86 - 5.04 M/cmm Hemoglobin 12.5 11.6 - 15.2 gm/dL HCT 37.7 34.9 - 44.4 % MCV 95 81 - 98 fl MCH 31.6 26.7 - 33.3 pg MCHC 33.2 32.1 - 35.9 gm/dL RDW-CV 13.3 <14.7 % RDW-SD 46.6 <50.4 fl PLT 198 141 - 377 K/cmm MPV 10.3 9.5 - 12.7 fl Assessment & Plan: Concetta was seen today for follow-up, fatigue and anxiety. Diagnoses and all orders for this visit: Other fatigue - EKG 12-LEAD - TSH - COMPREHENSIVE METABOLIC PANEL (CMP) - VITAMIN B12 Anxiety - TSH - COMPREHENSIVE METABOLIC PANEL (CMP) Weakness - EKG 12-LEAD - TSH - COMPREHENSIVE METABOLIC PANEL (CMP) - VITAMIN B12 Acquired hypothyroidism - TSH Vitamin D deficiency - VITAMIN D (25,OH) Return if symptoms worsen or fail to improve. I spent a total of 30 minutes on the date of this encounter meeting with the patient and reviewing documentation/coordinating care as described in the above note. No procedures were performed at the time of the visit. Nivia Tinsley MD, FAAFP * Marlen Chu LPN - 04/10/2022 0900 EDT Performed by MARLEN CHU LPN Site Collected Right Antecubital Space Volume Withdrawn STT; 8.5ml Patient Response Patient tolerated venipuncture well and Number of attempts 1 Ordering Provider Jayne Tinsley MD * Puma Francois MA - 04/10/2022 0900 EDT Pt notified documented in this encounter Plan of Treatment Upcoming Encounters Date Type Department Care Team (Late st Contact Info) Description 06/11/2024 12:45 EDT Office Visit [facility] [place] [address] [facility] [place] [address] Santiago Anthony MD [address] [facility] [place] [address] 07/15/2024 10:45 EDT Office Visit [facility] [address] [place] [address] Gianfranco Flowers MD [address] [facility] [address] [place] [address] Scheduled Orders Name Type Priority Associated Diagnoses Orde r Schedule COMPREHENSIVE METABOLIC PANEL (CMP) Lab Routine Other fatigue Anxiety Weakness Ordered: 04/10/2022 VITAMIN D (25,OH) Lab Routine Vitamin D deficiency Ordered: 04/10/2022 VITAMIN B12 Lab Routine Other fatigue Weakness Ordered: 04/10/2022 documented as of this encounter Procedures Procedure Name Priority Date/Time Associated Diagnosis Comments TSH Routine 04/10/2022 9:38 EDT Other fatigue Anxiety Weakness Acquired hypothyroidism EKG 12-LEAD STAT 04/10/2022 9:10 EDT Other fatigue Weakness documented in this encounter Results * TSH (04/10/2022 9:38 EDT) TSH 2.86 0.47 - 4.68 mIU/L 04/10/2022 15:00 EDT [facility] Blood VENOUS BLOOD / Unknown Venipuncture / Unknown 04/10/2022 9:38 EDT 04/10/2022 9:38 EDT Narrative [facility] - 04/10/2022 15:00 EDT The results of this assay can be falsely lowered due to the consumption of Biotin. Nivia Tinsley MD CHEMISTRY & BLOOD G ORDERABLES [facility] [address] [place] [address] * EKG 12-LEAD (04/10/2022 9:10 EDT) Narrative [facility] - 04/10/2022 9:10 EDT Nivia Tinsley MD ? 04/10/2022 ??9:42 EKG 12-LEAD Date/Time: 04/10/2022 9:10 Performed by: Nivia Tinslye MD Authorized by: Nivia Tinsley MD Comparison: compared with previous ECG from 11/16/2021 Similar to previous ECG Rhythm: sinus rhythm and A-V block Rate: normal QRS axis: left Conduction: 1st degree T flattening: V4 Other findings: LVH Clinical impression: abnormal ECG Comments: IVCD Nivia Tinsley MD CARDIAC ECG ORDERAB LES [facility] documented in this encounter Visit Diagnoses Diagnosis Other fatigue- Primary Anxiety Anxiety state, unspecified Weakness Other malaise and fatigue Acquired hypothyroidism Unspecified hypothyroidism Vitamin D deficiency Unspecified vitamin D deficiency documented in this encounter Discontinued Medications Medication Sig Discontinue Reason Start Date End Da te fluticasone propionate (FLONASE) 50 mcg/actuation nasal sprayIndications:Post-na janes drip Instill 1 [place] into both nostrils 2 times daily. 10/21/2021 04/10/2022 zoster vaccine recombinant, PF, (SHINGRIX, PF,) IM Injection - vialIndications:Encounte r for vaccination Inject 0.5 mL into the muscle once for 1 dose. Repeat in 2 months 12/26/2021 04/10/2022 pantoprazole (PROTONIX) 40 mg tablet Take 1 Tablet by mouth daily. 12/06/2021 04/10/2022 documented as of this encounter Care Teams Pipe Coremaker Relationship Specialty Start Date End Date Nivia Tinsley MD [address] [place] [address] PCP - General Family Medicine - Primary Care 08/27/19 Zheng Tapia MD [address] [place] [address] [address] [place] [phone] Internal Medicine - Primary Care 09/01/19 Shazia Burks MD [address] [place] [address] Neurology 09/01/19 Tony Baron, FRANCK [address] [place] [phone] [employer] 09/01/19 Keira Paniagua MD [address] [place] [address] [address] [place] [phone] Cardiovascular Disease 09/06/20 Siva Perkins MD [address] [facility] [place] [id number] Neurology 09/06/20 documented as of this encounter
--- OUTSIDE RECORDS SUMMARY | 2024-04-29 18:19 | XMS_ITS | Encounter Summary ---
Author Organization [facility] Address [address] [place] [address] Care Team Providers Care Sandblasting Supervisor Name Role Phone Nivia Tinsley MD Primary Care Provider Zheng Tapia MD Unavailable Shazia Burks MD Unavailable [phone] Tony Baron OD Unavailable [phone] Keira Paniagua MD Unavailable [phone] Siva Perkins MD Unavailable [phone] Reason for Visit * Reason Comments Fall fall at home while sal oing to [place], reports she vomited which caused her to fall and hit head, denies LOC. on anticoags * Auth/Cert Specialty Diagnoses / Procedures Referred By Lesa t Referred To Contact Diagnoses Generalized weakness Vomiting and diarrhea Forehead laceration, initial encounter Referral ID Status Reason Start Date Expiration Date Visits Re quested Visits Authorized [id number] 1 1 Encounter Details Date Type Department Care Team (Late st Contact Info) Description 02/21/2022 5:14 EDT - 02/22/2022 11:27 EDT Emergency [facility] Medical / Surgical Department [address] [place] [id number] Bean Malagon MD [address] [place] [address] Elliot Obando MD [address] [place] [phone] Jayme Begum MD [address] [place] [address], [place] [address] Ellis Miller MD [address] [place] [phone] Forehead laceration, initial encounter (Primary Dx); Vomiting and diarrhea Discharge Disposition: Home-Health Care Svc Social History Tobacco Use Types Packs/Day Years [...] Sign Reading Time Taken Comments Blood Pressure 127/60 02/22/2022 0900 EDT Pulse 93 02/21/2022 1000 EDT Temperature 36.6 ??C (97.8 ??F) 02/22/2022 0900 EDT Respiratory Rate 16 02/22/2022 0900 EDT Oxygen Saturation 95% 02/22/2022 0900 EDT Inhaled Oxygen Concentration - - Weight 72.3 kg (159 lb 8 oz) 02/21/2022 1300 EDT Height 165.1 cm (5' 5) 02/21/2022 1300 EDT Body Mass Index 26.54 02/21/2022 1300 EDT documented in this encounter Functional Status [...] 02/21/2022 documented as of this encounter Discharge Summaries * Ellis Miller MD - 02/22/2022 1127 EDT HOSPITAL MEDICINE DISCHARGE SUMMARY Primary Care Provider: Nivia Tinsley Attending Physician: Ellis Miller MD Admit Date: 02/21/2022 Discharge Date: 02/22/22 Disposition (location): Home with HH Condition at Discharge: Stable Reason for Admission (chief complaint): Fall Principal/Final Diagnosis: Forehead laceration, initial encounter Additional Problems Managed in the Hospital: Active Hospital Problems Diagnosis Date Noted ??? *Forehead laceration, initial encounter 02/21/2022 ??? Generalized weakness 02/21/2022 ??? Vomiting and diarrhea 02/21/2022 Resolved Hospital Problems No resolved problems to display. Transition of care: [facility] Transition of Care report automatically routed to PCP office on discharge. Clinical Issues Needing Follow-up 1. Pertinent medication changes: none 2. Recommended follow-up tests/procedures needed: Home health services 3. Anticoagulation on discharge: No though patient is on DAPT 4. Changes to goals care at time of discharge (if applicable): none Hospital Course: From the H&P by Dr. Begum on 02/21: Concetta Sullivan is a 81 y.o. female with Hypertension, hyperlipidemia, GERD, history of NSTEMI status post LAD stent placement in November 2021, heart failure with preserved ejection fraction, history of CVA in 2019 who presented to the emergency department after experiencing an episode of vomiting, falling out of her wheelchair hitting the right side of her forehead and sustaining a laceration. Patient patient has been in her usual state of health up until early in the morning when she was sitting in her wheelchair had a sudden onset of vomiting that caused her to double over, fell out of her wheelchair and hit the right side of her forehead. She did not lose any consciousness not currently complaining of any headache, lightheadedness or dizziness. In the ED her complaint in the emergency department was pain at the site of the laceration which was repaired by emergency room physician. Patient had head CT which did not show any acute intracranial bleeding. Patient was also given 250 cc of IV fluid after experiencing a large loose bowel movement. However, patient's vital signs, physical exam CBC and CMP were all within normal limits. Patient continued to have generalized weakness after prolonged stay in the emergency department and eating breakfast did not feel safe to go home. Which time emergency room physician paged hospitalist for admission for patient with likely acute viral gastroenteritis and generalized weakness. She was admitted to the medicine service and found to be at her baseline mobility by PT.She denied abdominal pain or ongoing loose stools. She felt ready to discharge, and was recommended to follow-up with her PCP for her head laceration and sutures. She was discharged in stable condition with services. Relevant Imaging/Procedures Performed: CT HEAD WO CONTRAST Result Date: 02/21/2022 1. No acute intracranial abnormalities. 2. Atrophy with chronic white matter microangiopathic changes and remote ischemic changes, similar appearance to previous. 3. 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 4. Right supraorbital/frontal scalp contusion. THIS DOCUMENT HAS BEEN ELECTRONICALLY SIGNED BY ENMANUEL CASTRO MD FOR ANY QUESTIONS OR CONCERNS REGARDING THIS REPORT PLEASE CALL [facility] AT [phone] Results Pending at Discharge: Test results still pending from this admission None Upcoming Appointments Apr 17, 2022 9:20 New Patient Visit with Emmanuelle Padgett MD [facility] Dermatology (--) [address] [address] Apr 26, 2022 8:00 Injection with Enmanuel Anthony MD [facility] Ophthalmology - [place] (--) [address] [facility] [address] Follow-up appointments and procedures [facility], RAKESH I certify that this patient is under my care and that I, or another Medicare allowed practitioner (DO KARLENE, FRANKIE) working with me, had a [id number] encounter with this patient on this date: 02/22/2022 The discharge summary or progress note will provide further details that support the need for the home health services and the plan of care.: Yes Enter the allowed practitioner (MD, DO, FRANKIE) who will provide oversight of this patient's home heatlh care needs and plan of care: MD parmjit The patient???s homebound status is related to the following diagnoses, illness or condition (describe): wheelchair bound, hx cva Patient needs one or more of the following to leave home: Assistive device The assistance or supervision of another person Assistive device: Wheelchair Leaving the home is medically contraindicated due to: Ambulation or weight bearing is medically restricted The following conditions illustrate the patient???s normal inability to leave home AND that leavinghome requires a considerable and taxing effort: The severity of the neurological disease limits functional ability and ambulation Skilled Care Requested: Nursing asessment Physical Therapy halfway assessment needed related to this encounter: CP Status GI Status Neuro Status Pain Control Physical therapy is needed for: Evaluation Gait/Mobility Assessment and Training Safety Expected Discharge Date (Inpatient Only): 02/22/2022 Authorizing Provider: Ellis Miller MD Amb Consult/Follow Up [place] Phys[place] [facility] Reason for Request: suture removal, hospitalization with fall Expected Discharge Date (Inpatient Only): 02/22/2022 Authorizing Provider: Ellis Miller MD I personally spent > 30 minutes reviewing the chart, evaluating and examining the patient, counseling and preparing the patient for discharge, and coordinating follow up. Ellis Miller MD 02/24/2022 7:42 documented in this encounter Discharge Instructions * Discharge Instr - Other Orders* Ellis Miller MD - 02/22/2022 10:48 EDT Please follow-up with your primary care provider regarding your laceration and fall/diarrhea. I have made no changes to your medications. We have made a referral to home health services for PT and nursing. documented in this encounter Medications at Time of Discharge Medication Sig Dispensed Refills Start Date End Date medical supply, miscellaneous (WALKER WHEELS ACCESSORY MISC) with seat, basket under the seat and breaks as directed dx: Abnormal gait and legally blind daily 07/13/2017 aspirin chewable 81 mg tablet Take 1 Tablet by mouth daily. 30 Tablet 11 12/06/2021 10/30/2022 atorvastatin (LIPITOR) 40 mg tablet Take 1 Tablet by mouth at bedtime. 30 Tablet 11 12/06/2021 12/01/2022 carvediloL (COREG) 6.25 mg tablet Take 1 Tablet by mouth 2 times daily with breakfast and dinner. 60 Tablet 11 12/06/2021 11/13/2022 clopidogreL (PLAVIX) 75 mg tablet Take 1 Tablet by mouth daily. 30 Tablet 4 12/06/2021 05/25/2022 fluticasone propionate (FLONASE) 50 mcg/actuation nasal sprayIndications:Post-na janes drip Instill 1 [place] into both nostrils 2 times daily. 16 g 10/21/2021 04/10/2022 furosemide (LASIX) 20 mg tablet Take 1 Tablet by mouth as needed for up to 90 days for Other (Edema). 30 Tablet 3 01/09/2022 04/09/2022 levothyroxine (SYNTHROID) 100 mcg tabletIndications:Other specified hypothyroidism Take 1 Tablet by mouth daily. 30 Tablet 12/06/2021 11/22/2022 losartan (COZAAR) 100 mg tabletIndications:Essent ial hypertension 1 tab(s) orally once a day 30 Tablet 12/06/2021 12/01/2022 nitroglycerin (NITROSTAT) 0.4 mg SL tabletIndications:NSTEMI (non-ST elevated myocardial infarction) ([facility]) Place 1 Tablet under the tongue every 5 minutes as needed for Chest Pain. 30 Tablet 12/26/2021 03/14/2022 pantoprazole (PROTONIX) 40 mg tablet Take 1 Tablet by mouth daily. 30 Tablet 12/06/2021 04/10/2022 vit A,C & N-extyrt-fsnjxwrv (OCUVITE) 1,000 unit-200 mg-60 unit-2 mg tablet Take 1 tab by mouth daily 30 Tablet 11 12/06/2021 11/16/2022 zoster vaccine recombinant, PF, (SHINGRIX, PF,) IM Injection - vialIndications:Encounte r for vaccination Inject 0.5 mL into the muscle once for 1 dose. Repeat in 2 months 1 Each 1 12/26/2021 04/10/2022 documented as of this encounter Discharge Disposition Disposition Code Departure Means Destination [place] [facility] [place] documented in this encounter Progress Notes * Stefania Tate - 02/22/2022 1127 EDT Pt here under observation status for generalized weakness and is discharged home today with a referral for home [facility] RN, PT services from [facility] ([facility]). Pt had leftthe facility before this publicity writer could see her. She has had home health services in the past. orders/clinical faxed to [facility]. * Fay House, PT - 02/22/[address] [facility] In[facility] Rehabilitation Services Main [place] Physical Therapy Single Visit Evaluation Note Date of Service: 02/22/2022 Diagnosis: Forehead laceration s/p fall; diarrhea and vomitting. Date of Onset: 02/21/22 Referring Provider: Jayme Begum MD. Reason for Referral: Evaluate and treat Precautions: Fall risk. Activity as tolerated. SUBJECTIVE: Patient is currently having difficulty with: mobility, weakness Patient/caregiver states: I think I'm ready to go home today. Patient and Caregiver Goals: Go home Patient and Caregiver Goals: I want to start working back to my walker. Subjective Information Reported by: Patient Pain Comments: No pain reported with mobility assessment. Medical/Surgical History: Current: Patient Active Problem List Diagnosis ??? Cerebral atherosclerosis ??? Gastro-esophageal reflux disease without esophagitis ??? Hyperlipidemia ??? Hypertension ??? Hypothyroidism, unspecified ??? Shuffling gait ??? Vitamin D deficiency ??? Basilar artery stenosis/occlusion with infarction ([facility]) ??? Decreased visual acuity ??? NSTEMI (non-ST elevated myocardial infarction) ([facility]-CMS) ([facility]) ??? ARMD (age related macular degeneration) ??? ARMD (age related macular degeneration) ??? S/P coronary artery stent placement ??? ACC/AHA stage C heart failure with preserved ejection fraction (HCC-CMS) ([facility]) ??? Diabetes mellitus type 2, noninsulin dependent (HCC-CMS) ([facility]) ??? Chronic total occlusion of coronary artery ??? Dependence on wheelchair ??? Mixed incontinence ??? Muscle weakness (generalized) ??? Prediabetes ??? Pure hypercholesterolemia, unspecified ??? Unspecified visual loss ??? Generalized weakness ??? Forehead laceration, initial encounter ??? Vomiting and diarrhea Past: Past Medical History: Diagnosis Date ??? 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 Cerebrovascular accident (HCC-CMS) ([facility]) 09/02/2019 ??? Coronary artery disease involving [place] coronary artery of [place] heart without angina pectoris 09/02/2019 ??? Hyperlipidemia ??? Hypertension ??? 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 COLONOSCOPY 01/2007 moderate diffuse diverticuli discussed with Dr. Tapia and declines further testing ??? CORONARY ANGIOPLASTY WITH STENT PLACEMENT 11/2021 LAD PCI. 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 EYE SURGERY HPI: From H&P: Concetta Sullivan is a 81 y.o. female with Hypertension, hyperlipidemia, GERD, history of NSTEMI status post LAD stent placement in November 2021, heart failure with preserved ejection fraction, history of CVA in 2019 who I sbeing admitted with acute viral gastroenteritis and generalized weakness. Support Support Person: Caregiver Support Comment: Patient has daily support from 8-2 pm. Caregivers support with meals, cleaning, ADLs as needed. Prior level of function: Patient mod/ind with functional transfers; wheelchair level mobility. Daily caregiver support. Home Environment: Safety Assessment / Living Environment Home environment: Apartment Home layout: One level Entrance Stairs: No entrance stairs Bedrooms/Bathrooms: Able to live on main level with bedroom/bathroom Mobility Equipment: Wheelchair Wheelchair Specifics: Manual wheelchair Support Person: Caregiver Support Comment: Patient has daily support from 8-2 pm. Caregivers support with meals, cleaning, ADLs as needed. OBJECTIVE: Patient Profile: Patient is a 81 y.o. female admitted on 02/21/2022 secondary to Forehead laceration, initial encounter The patient lives at [address] [place] [address], [address] [place] [address] Arousal, Attention, and Cognition: Orientation: Alert Oriented to person, place, and time Cardiopulmonary: Patient vital signs stable per flowsheets and patient not symptomatic during examination Range of Motion: Active Range of Motion: Within normal limits Muscle Performance: Strength: BLEs grossly > 3/5 as seen with functional mobility. Neuromotor Function/Development: No problems noted Balance: Patient has a history of falls. No LOB noted with mobility assessed. Bed Mobility and Transfers: supine to sit: mod/ind sit to supine: mod/ind sit to stand: mod/ind with UE support stand to sit: mod/ind bed to chair: mod/ind to wheelchair. Good safety awareness with lock management. Chair to bed: mod/ind Gait and Stairs: NT as is not patient baseline. Interventions Completed Today: Time: 818; 916 Total Treatment Time (minutes): 29 Timed Code Treatment Minutes: 0 Therapy Session: A emergency department aide was present for the physical therapy session Patient Status at the End of the Therapy Session, The patient was left in the: bed with the: Call ernst in reach Patient Status at the End of the Therapy Session Comments: RN and supervisor case loading present. Additional information may be available in the medical record. Patient/Family Education: Mobility, Transfers, and Gait: Mobility recommendations, Functional transfers Recommendations: Discharge recommendations/planning Safety: Fall prevention ASSESSMENT: Physical Therapy Diagnosis: The patient presents with a physical therapy diagnosis of: Impaired mobility Physical Therapy Assessment: Patient is 81 year old female admitted [place] [facility] [place]/p fall resulting in forehead laceration with report of diarrhea and vomitting. Patient assessed for baseline mobility with demonstration of transfers to/from wheelchair, bed, commode at modified independent level without cueing for safe lock management and good stability noted with STP transfer. Patient with good caregiver support at home at baseline and denies history of falls beyond this incident. Patient safe to DC home with recommendations for HH PT to progress patient mobility goals/safety as tolerated. Physical Therapy is medically necessary to: establish and progress mobility/exercise and provide recommendations for staff and safe discharge planning PLAN: Patient/Family Education: Discharge planning, Equipment, Recommendations, Safety Discharge Recommendations: Recommended Discharge Destination: Home with assistance/supervision as needed Recommended Discharge Destination Comments: Continued caregiver support as is patient baseline. Therapy Specific Services: Physical therapy Therapy Specific Services Comments: HH PT. Equipment Recommended: Patient has all necessary equipment Team Communication: Notified: Nurse, Physician, contracting manager When: After therapy session By: [id number] communication About: Mobility at baseline. Performs transfers to wheelchair to/from bed, commode mod/ind. Safe totransition home with caregiver support. Recommend HH PT with goals to progress mobility in RW. Fay House, PT 02/22/2022 16:12 * Megan Ravi RN - 02/22/2022 1122 EDT Nursing Discharge Note D: Patient noted with discharge orders to: home w/ home health. A: Prescriptions provided to patient. Reviewed discharge instructions and prescriptions with Patient IV d/c'd. Belongings collected and sent home with patient. R: Patient verbalized understanding of discharge instructions and denied further questions. Megan Ravi RN 02/22/2022 11:22 * Cate Marcano - 02/22/2022 1019 EDT Initial Case Management/Social Work Assessment and Discharge Plan/Readmission Risk Assessment REASON FOR ADMISSION: Forehead laceration, initial encounter Patient understands reason for admission: Yes PATIENT INFO VERIFIED: PCP, Address, Contact Info Type of housing (single family, condo, apartment, long term, single room occupancy, [facility] funded hotel room, group halfway) - apartment Who does the patient live with? alone Does the patient have access to their own bedroom/bathroom/kitchen - or is it shared with others? yes Name of housing complex (ex [place] [facility], [facility], etc)- [address] Housing Authority/Managing Organization - [facility] Community Care Providers (supervisor case loading, [facility] nurse, etc) name and contact information- [facility] LIV[facility] ARRANGEMENTS AND ACCESSIBILITY ISSUES: Living Arrangements: Alone, Other (Comment) Levels: 1 Stairs to enter: 0 Handicap access: Ramp, Grab bars, Railings into home Bathroom located on bedroom level?: Yes What in home social supports are available to the patient? Home care staff, Friends / neighbors, Other (See comment) ([facility], [facility]) Is 23/04 care available? Yes ADVANCED DIRECTIVES, POA &/or COLST IN PLACE: Healthcare Directive: Yes, patient has advance directive for healthcare treatment Type of Healthcare Directive: Other (Comment) Copy in Chart: Yes, new copy in paper chart @ [facility] DIRECTIVES FOR FINANCES: Directive For Finances: No TRANSPORTATION: Transportation: Family (caregiver Salome is coming to pick her up) Transportation Additional Details: salome is bringing her wheelchair and a sweatshirt Patient expects to be discharged to: home with new [facility] CULTURAL, BUDDHISM and/or LANGUAGE factors affecting health care/discharge planning: Spiritual/Cultural Requests: None Language/Literacy Needs Do you need us to provide any communication aids or devices?: No, Other (Comment) (patient has verypoor vision) Insurance Information: Medical Insurance: Yes Type of insurance: Medicare Medicare type: A, B Nutrition: DISCHARGE RISK ASSESSMENT: Total # selected above: Tentative plan to address the risk of re-hospitalization for those at HIGH MODERATE RISK: RAPT TOOL: Patient expects to be discharged to: home with new [facility] SBIRT: FUNCTIONAL STATUS: Activities patient requires assistance: Bathing Assistive Devices: Wheelchair, Grab bars, Shower chair, Spikemaking Supervisor COMMUNITY RESOURCES/SUPPORTS: Primary Care Provider: Nivia Tinsley PCP Verified: Specialists: Type of Home Health Services: Home health aide DME Provider: Pharmacy: [facility] [address] [address] [employer] [address] [facility] [address] [facility] [address] [facility] [address] [facility] - [address] [address] Home Health: Other: [facility], [facility], [facility] TRANSITION PLAN: Transition back to home with new [facility] services RN and PT. Spoke with her caregiver Salome who will be brining her home today. She has a wheelchair with her and Concetta has demonstrated with PT that she can do transfers solo to the wheelchair. Salome also confirmedthat she can assist with this as well. Salome provides care 6 days per week and on the 7th day () she has an alternate person who comes in. Concetta said her daughter Melani in [facility] is her POA.We do not have this paperwork on file but we do have a COLST form. Concetta confirmed she's DNR/DNI. She has [facility] and [facility] who help her with transportation to her eye doctors in [facility] due to her significant visual impairment. Stefania Torrez is aware of referral. Concetta and her caregiver have no concerns with discharge home today Cate Marcano 02/22/2022 10:20 * Maribel Haywood RN - 02/21/2022 1200 EDT Pt admitted from ED Pt a+ox3 Skin assessment completed with Martha PEREZ Pt's skin is intact with no signs of breakdown Pt was inc of small loose BM Will continue to monitor and assess this pt documented in this encounter H&P Notes * Jayme Begum MD - 02/21/2022 0941 EDT Hospital Medicine Admission History & Physical Service Date: 02/21/2022 Admit Date: 02/21/2022 Primary Care Provider: Nivia Tinsley Chief Complaint: fall, no LOC, right forehead laceration Chief Complaint Patient presents with ??? Fall fall at home while going to , reports she vomited which caused her to fall and hit head, denies LOC. on anticoags HPI Concetta Sullivan is a 81 y.o. female with Hypertension, hyperlipidemia, GERD, history of NSTEMI status post LAD stent placement in November 2021, heart failure with preserved ejection fraction, historyof CVA in 2019 who presented to the emergency department after experiencing an episode of vomiting,falling out of her wheelchair hitting the right side of her forehead and sustaining a laceration. Patient patient has been in her usual state of health up until early in the morning when she was sitting in her wheelchair had a sudden onset of vomiting that caused her to double over, fell out of her wheelchair and hit the right side of her forehead. She did not lose any consciousness not currently complaining of any headache, lightheadedness or dizziness. In the ED her complaint in the emergency department was pain at the site of the laceration which was repaired by emergency room physician. Patient had head CT which did not show any acute intracranial bleeding. Patient was also given 250 cc of IV fluid after experiencing a large loose bowel movement. However, patient's vital signs, physical exam CBC and CMP were all within normal limits. Patient continued to have generalized weakness after prolonged stay in the emergency department and eating breakfast did not feel safe to go home. Which time emergency room physician paged hospitalist for admission for patient with likely acute viral gastroenteritis and generalized weakness. Review of Systems A complete 10 point ROS was performed and pertinent positive and negative findings listed in HPI, otherwise negative. Past Medical History: I reviewed the following information in the medical record and made updates as necessary: Past Medical History: Diagnosis Date ??? 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 Cerebrovascular accident ([facility]) ([facility]) 09/02/2019 ??? Coronary artery disease involving [place] coronary artery of [place] heart without angina pectoris 09/02/2019 ??? Hyperlipidemia ??? Hypertension ??? Thalamic stroke ([facility]) ([facility]) 04/19/2020 Past Surgical History: Procedure Laterality Date ??? COLONOSCOPY 01/2007 moderate diffuse diverticuli discussed with Dr. Tapia and declines further testing ??? CORONARY ANGIOPLASTY WITH STENT PLACEMENT 11/2021 LAD PCI. 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 EYE SURGERY Social History Tobacco Use ??? Smoking status: Never Smoker ??? Smokeless tobacco: Never Used Substance Use Topics ??? Alcohol use: Yes Comment: sips here and there Social History Social History Narrative ??? Not on file Family History Problem Relation Age of Onset ??? Mental Illness Mother ??? Suicide Mother ??? Early Mother 46 committed suicide at 46y/o ??? Unknown Father at 94y/o ??? Hypertension Sister ??? Heart Surgery Sister ??? Arthritis-Osteo Sister ??? Lung Cancer Sister ??? Brain Aneurysm Brother ??? Early Brother ??? Stomach Cancer Maternal Grandmother ??? Unknown Maternal Grandfather ??? Unknown Paternal Grandmother ??? Unknown Paternal Grandfather ??? Breast Cancer Sister ??? Cataract Sister ??? Cancer Sister metastatic ??? Lung Cancer Sister ??? Hypertension Brother ??? Arthritis-Osteo Brother ??? Diabetes Brother ??? Heart Surgery Brother ??? Albinism Brother ??? Heart Surgery Brother ??? Blindness Brother ??? Diabetes Brother ??? Alcohol Abuse Brother ??? Hypertension Son ??? Obesity Son ??? No Known Daughter OB History No obstetric history on file. Social History Substance and Sexual Activity Sexual Activity Not Currently Objective Vitals Temp: [36.4 ??C (97.5 ??F)] , Heart Rate: [89 BPM] , Pulse: [87-91] , Resp: [16] , BP: (125-169)/(76-81) , SpO2: [92 %-94 %] , Numeric Pain Level (Scale 1-10): 5 Weight: There is no height or weight on file to calculate BMI. Physical Exam -General: well developed, well nourished, AOx3, no acute distress -HEENT: bandaged laceration above right eyebrow without surrounding erythema or bleeding, normocephalic, atraumatic, PERRLA, EOMI, no nasal discharge, no oral swelling or inflammation -Neck: supple, non-tender, without lymphadenopathy -Cardiac: normal S1S2, RRR, no rubs, murmurs or gallops, normal capillary refill, no edema noted -Pulmonary: CTAB, no wheezing, rhonchi, or diminished breath sounds -Abdomen: soft, non-tender, non-distended, positive bowel sounds, no guarding or rebound tenderness -Musculoskeletal: normal ROM of spine and extremities, no joint erythema or tenderness, peripheral pulses intact -Neuro: CNII-XII intact, grossly normal, non-focal -Skin: normal color, no lesions or open wounds, did not check patients sacrum -Psych: no depression or anxiety, no hallucinations Labs I have personally reviewed Results for orders placed or performed during the hospital encounter of 02/21/22 (from the past 24 hour(s)) COVID-19 TESTING Specimen: Anterior nares; Swab Result Value Ref Range COVID-19 rt-PCR Result Negative Negative Performing Lab Cepheid GeneXpert [facility] COMPLETE BLOOD COUNT AND DIFFERENTIAL Result Value [...] Ref Range C-Reactive Protein <5.0 <10.0 mg/L Recent Labs 02/21/22 0638 WBC 12.14 RBC 4.46 HGB 14.3 HCT 42.1 MCV 94 MCH 32.1 MCHC 34.0 PLT 212 NEUTROABS 10.34* Recent Labs 02/21/22 0638 NA 135* K 3.8 CL 102 CO2 22 BUN 24 CREATININE 0.73 CALCIUM 8.6 LABALBU 4.0 Recent Labs 02/21/22 0638 TBIL 0.6 ALKPHOS 102 AST 28 ALT 27 Medications Current Outpatient Medications Medication Sig ??? aspirin chewable 81 mg tablet Take 1 Tablet by mouth daily. ??? atorvastatin (LIPITOR) 40 mg tablet Take 1 Tablet by mouth at bedtime. ??? carvediloL (COREG) 6.25 mg tablet Take 1 Tablet by mouth 2 times daily with breakfast and dinner. ??? clopidogreL (PLAVIX) 75 mg tablet Take 1 Tablet by mouth daily. ??? fluticasone propionate (FLONASE) 50 mcg/actuation nasal spray Instill 1 [place] into both nostrils 2 times daily. ??? furosemide (LASIX) 20 mg tablet Take 1 Tablet by mouth as needed for up to 90 days for Other (Edema). (Patient not taking: Reported on 01/31/2022) ??? levothyroxine (SYNTHROID) 100 mcg tablet Take 1 Tablet by mouth daily. ??? losartan (COZAAR) 100 mg tablet 1 tab(s) orally once a day ??? medical supply, miscellaneous (W[employer] ACCESSORY MISC) with seat, basket under the seat and breaks as directed dx: Abnormal gait and legally blind daily ??? nitroglycerin (NITROSTAT) 0.[address] 1 Tablet under the tongue every 5 minutes as needed for Chest Pain. ??? pantoprazole (PROTONIX) 40 mg tablet Take 1 Tablet by mouth daily. ? ? vit A,C & S-iuipko-amadkypw (OCUVITE) 1,000 unit-200 mg-60 unit-2 mg tablet Take 1 tab by mouth daily ??? zoster vaccine recombinant, PF, (SHINGRIX, PF,) IM Injection - vial Inject 0.5 mL into the muscle once for 1 dose. Repeat in 2 months (Patient not taking: Reported on 01/31/2022) (Not in a hospital admission) Imaging Personally reviewed CT HEAD WO CONTRAST Result Date: 02/21/2022 PROCEDURE INFORMATION: Exam: CT Head Without Contrast Exam date and time: 02/21/2022 5:54 AM Age: 81years old Clinical indication: Injury or trauma; Fall; Blunt trauma (contusions or hematomas); Without loss of consciousness; Additional info: Head trauma, scalp hematoma (ped 0-1y) TECHNIQUE: Imaging protocol: Computed tomography of the head without contrast. Radiation optimization: All CT scans at this facility use at least one of these dose optimization techniques: automated exposure control; mA and/or kV adjustment per patient size (includes targeted exams where dose is matched to clinical i ndication); or iterative reconstruction. COMPARISON: CT HEAD WITHOUT CONTRAST 01/18/2020 3:48 PM FINDINGS: Brain: Decreased periventricular and subcortical attenuation compatible with mild chronic white matter ischemic change. No acute cerebrovascular accident. No acute intracranial hemorrhage. Partially calcified 1.2 cm mass medial right parietal lobe mass, stable appearance, likely vascular malformation as previously described. No other mass, positive mass effect or midline shift. Remote ischemic changes within the basal ganglia, gabe and cerebellar hemispheres, similar to previous. No significant interval CVA. Cerebral ventricles: Prominent ventricles and sulci compatible with mild volume loss/atrophy. Paranasal sinuses: Left maxillary retention cyst/polyp. No significant acute paranasal sinus disease. Mastoid air cells: Visualized mastoid air cells are unremarkable. Orbital cavities:Right supraorbital/frontal scalp contusion. Bones/joints: No linear or depressed skull fracture. Nolytic or blastic lesion. Soft tissues: Soft tissues are otherwise relatively unremarkable. None 1. No acute intracranial abnormalities. 2. Atrophy with chronic white matter microangiopathic changes and remote ischemic changes, similar appearance to previous. 3. 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 4. Right supraorbital/frontal scalp contusion. THIS DOCUMENT HAS BEEN ELECTRONICALLY SIGNED BY ENMANUEL CASTRO MD FOR ANY QUESTIONS OR CONCERNS REGARDING THIS REPORT PLEASE CALL [facility] AT [phone] Assessment Concetta Sullivan is a 81 y.o. female with Hypertension, hyperlipidemia, GERD, history of NSTEMI status post LAD stent placement in November 2021, heart failure with preserved ejection fraction, historyof CVA in 2019 who I sbeing admitted with acute viral gastroenteritis and generalized weakness. Plan --Acute viral gastroenteritis: -patient experience one episode of vomiting CUFF PRESSER and once episode of diarrhea in the ED -s/p 250cc NS -tolerate PO at this time, will hold off on additional IVF --Generalized weakness: -secondary to above -if patient remains weak tomorrow will obtain PT consultation, though patient already stating that she plans to go home on Sunday, 02/22 --CAD s/p NSTEMI and LAD stent placement in 11/2021: -continue home asa, statin, plavix, SL nitro --HTN: -hold home ARB and lasix due to low normal blood pressures and diarrhea -restart based on repeat Bps --Hypothyroidism: -continue home synthroid --GERD: -continue home PPI VTE Prophylaxis on dual antiplatelet as noted above Code: No Active Order CODE: DNR/DNI Disposition: likely home tomorrow Provider to Provider: I personally discussed this case with the ED provider prior to this admission. Time Spent: I personally spent 75 minutes reviewing the chart, evaluating and examining the patient, and counseling upon admission Jayme Begum MD 02/21/2022 9:41 documented in this encounter ED Notes * Henny Tidwell RN - 02/21/2022 1137 EDT Report called to receiving RN on , [place]. * Henny Tidwell RN - 02/21/2022 1112 EDT Pt had another episode of incontinent loose stool. Stool appears to be getting less watery. Pt cleaned up, linens changed, and new depends applied. * Elliot Obando MD - 02/21/2022 0918 EDT Relevant Data as of Feb 21 918SunFebruary 21, 2022 0917 Patient signed out to me at shift change pending reevaluation. Patient still feels profoundly weak. Eating sitting up in the bed she feels profoundly weak and unsteady. Now eating and drinking alittle bit. Feels that she should stay in the hospital as does her caregiver. [DM] Relevant Data User Index [DM] Elliot Obando MD * Henny Tidwell RN - 02/21/2022 0850 EDT Pt had another episode of incontinent loose stool. Pt cleaned by this RN and new brief applied. Pt provided with vanilla pudding and ice water. * Henny Tidwell RN - 02/21/2022 0806 EDT Pt c/o joselito horse cramping in left calf. Pt reported relief in cramping following fluid bolus * Henny Tidwell RN - 02/21/2022 0743 EDT Pt had small smear of incontinent diarrhea, Pt cleaned by this RN. Chucks pad changed and depends placed on patient. * Tamela Smith RN - 02/21/2022 0651 EDT Report given to day shift nurses * Tamela Smith RN - 02/21/2022 0639 EDT Requested bed roche to void, voided and had loose stool. States she feels slightly nauseous. Dr. Malagon notified. Lab specs obtained R AC x 1 attempt. Covid swab obtained and sent to lab * Tamela Smith RN - 02/21/[address], small amt of diarrhea, cleansed and linen changed * Bean Malagon MD - 02/21/2022 0522 EDTAssociated Order(s): Laceration Repair This patient received an evaluation and medical screening exam for emergent medical conditions at [facility] Emergency Department on 02/21/2022 History of Present Illness HPI Concetta Sullivan is a 81 y.o. female with a hx of a CVA on plavix presents with a 2.5cm linear laceration above her right eyebrow with associated ecchymosis. Patient states she was in her wheelchair and suddenly vomited and then fell forward hitting the right side of her forehead sustaining a laceration. No LOC. Patient denies any nausea currently. No abdominal pain. Patient has no complaints otherthan mild pain at the site of the laceration. Data Reviewed this visit Current Facility-Administered Medications Medication Dose Route Frequency Provider Last Rate Last Admin ??? sodium chloride 0.9 % BOLUS 250 mL 250 mL intravenous Now Bean Malagon MD Current Outpatient Medications Medication Sig Dispense Refill ??? aspirin chewable 81 mg tablet Take 1 Tablet by mouth daily. 30 Tablet 11 ??? atorvastatin (LIPITOR) 40 mg tablet Take 1 Tablet by mouth at bedtime. 30 Tablet 11 ??? carboxymethylcellulose sodium (ARTIFICIAL TEARS, CMC,) 1 % drops Apply 2 Drops to eye as needed(dry eye). 10 mL 11 ??? carvediloL (COREG) 6.25 mg tablet Take 1 Tablet by mouth 2 times daily with breakfast and dinner. 60 Tablet 11 ??? cholecalciferol, Vitamin D3, 25 mcg (1,000 unit) tablet Take 1 Tablet by mouth daily. 30 [id number] ??? clopidogreL (PLAVIX) 75 mg tablet Take 1 Tablet by mouth daily. 30 Tablet 4 ??? fluticasone propionate (FLONASE) 50 mcg/actuation nasal spray Instill 1 [place] into both nostrils 2 times daily. 16 g 11 ??? furosemide (LASIX) 20 mg tablet Take 1 Tablet by mouth as needed for up to 90 days for Other (Edema). (Patient not taking: Reported on 01/31/2022) 30 Tablet 3 ??? hydrocortisone 1 % ointment Apply to affected area TID PRN 56 g 1 ??? levothyroxine (SYNTHROID) 100 mcg tablet Take 1 Tablet by mouth daily. 30 Tablet 11 ??? losartan (COZAAR) 100 mg tablet 1 tab(s) orally once a day 30 Tablet 11 ??? medical supply, miscellaneous ([employer] ACCESSORY MISC) with seat, basket under the seat and breaks as directed dx: Abnormal gait and legally blind daily ??? nitroglycerin (NITROSTAT) 0.[address] 1 Tablet under the tongue every 5 minutes as needed for Chest Pain. 30 Tablet 0 ??? pantoprazole (PROTONIX) 40 mg tablet Take 1 Tablet by mouth daily. 30 Tablet 11 ? ? vit A,C & S-mgmfiy-kfsdfotu (OCUVITE) 1,000 unit-200 mg-60 unit-2 mg tablet Take 1 tab by mouth daily 30 Tablet 11 ??? zoster vaccine recombinant, PF, (SHINGRIX, PF,) IM Injection - vial Inject 0.5 mL into the muscle once for 1 dose. Repeat in 2 months (Patient not taking: Reported on 01/31/2022) 1 Each 1 Review of Symptoms ROS A 10-point review of systems was performed. The historian answered negative to all questions with the exceptions of those explicitly detailed as positives in the HPI. Pertinent negatives are also explicitly stated. Physical Exam Vital Signs Vital Signs Temp: 36.4 ??C (97.5 ??F) Pulse: 91 Resp: 16 SpO2: 92 % BP: (!) 154/81 Nursing notes and vital signs were reviewed. Physical Exam Vitals and nursing note reviewed. Constitutional: General: She is not in acute distress. Appearance: Normal appearance. HENT: Head: Normocephalic. Comments: 2.5 cm linear laceration above the right eyebrow with associated ecchymosis and edema. Right Ear: External ear normal. Left Ear: External ear normal. Nose: Nose normal. Mouth/Throat: Mouth: Mucous membranes are moist. Eyes: Extraocular Movements: Extraocular movements intact. Pupils: Pupils are equal, round, and reactive to light. Cardiovascular: Rate and Rhythm: Normal rate and regular rhythm. Heart sounds: Normal heart sounds. Pulmonary: Effort: Pulmonary effort is normal. Breath sounds: Normal breath sounds. Abdominal: Palpations: Abdomen is soft. There is no mass. Tenderness: There is no abdominal tenderness. Musculoskeletal: General: No swelling or deformity. Normal range of motion. Cervical back: Normal range of motion and neck supple. Skin: General: Skin is warm and dry. Neurological: General: No focal deficit present. Mental Status: She is alert and oriented to person, place, and time. Motor: Weakness present. Psychiatric: Mood and Affect: Mood normal. Behavior: Behavior normal. ED Course/Medical Decision Making Final diagnoses: Forehead laceration, initial encounter Vomiting and diarrhea 81 y.o. female with a hx of a CVA on plavix presents with a 2.5cm linear laceration above her righteyebrow with associated ecchymosis. Patient states she was in her wheelchair and suddenly vomited and then fell forward hitting the right side of her forehead sustaining a laceration. No LOC. Patientdenies any nausea currently. No abdominal pain. Patient has no complaints other than mild pain at the site of the laceration. Laceration repaired with #5 six-point 0 interrupted nylon sutures. Patient went over for a CT scan of the head and had a large amount of diarrhea. Labs unremarkable. COVID swab obtained. Patient lives at home alone. 250 cc of IV fluids given. Patient is tolerating oral hydration. CT head was negative for acute pathology. No intracranial bleed. Patient to rest in the Emergency Department and then be reevaluated by incoming physician regardingfinal disposition. Procedures Laceration Repair Date/Time: 02/21/2022 6:09 Performed by: Bean Malagon MD Authorized by: Bean Malagon MD Consent: Consent obtained: Verbal Consent given by: Patient Risks discussed: Infection, pain, retained foreign body, need for additional repair, vascular damage, nerve damage, poor cosmetic result, poor wound healing and tendon damage Alternatives discussed: No treatment, delayed treatment, observation and referral [place] protocol: Procedure explained and questions answered to patient or proxy's satisfaction: yes Relevant documents present and verified: yes Test results available and properly labeled: yes Imaging studies available: yes Required blood products, implants, devices, and special equipment available: yes Site/side marked: yes Immediately prior to procedure, a time out was called: yes Patient identity confirmed: Verbally with patient Anesthesia (see MAR for exact dosages): Anesthesia method: Local infiltration Local anesthetic: Lidocaine 2% w/o epi Laceration details: Location: Face Face location: Forehead Length (cm): 2.5 Depth (mm): 1 Repair type: Repair type: Simple Pre-procedure details: Preparation: Patient was prepped and draped in usual sterile fashion Exploration: Wound exploration: wound explored through full range of motion and entire depth of wound probed andvisualized Wound extent: no foreign bodies/material noted, no nerve damage noted, no tendon damage noted, no underlying fracture noted and no vascular damage noted Contaminated: no Treatment: Area cleansed with: Saline Amount of cleaning: Standard Irrigation solution: Sterile saline Irrigation method: Syringe Visualized foreign bodies/material removed: no Skin repair: Repair method: Sutures Suture size: 6-0 Suture material: Nylon Suture technique: Simple interrupted Approximation: Approximation: Close Post-procedure details: Dressing: Antibiotic ointment and non-adherent dressing Patient tolerance of procedure: Tolerated well, no immediate complications Data Interpretation/Results Laboratory results independently reviewed, significant for: Labs Reviewed COMPLETE BLOOD COUNT AND DIFFERENTIAL - Abnormal Result Value Status WBC 12.14 Final RBC 4.46 Final Hemoglobin 14.3 Final HCT 42.1 Final MCV 94 Final MCH 32.1 Final MCHC 34.0 Final RDW-CV 13.2 Final RDW-SD 45.5 Final PLT 212 Final MPV 10.2 Final Neutrophils 85.3 Final Lymphocytes 5.6 Final Monocytes 6.9 Final Eosinophils 1.7 Final Basophils 0.3 Final Immature Grans 0.2 Final Absolute Neutrophils 10.34 (*) Final Absolute Lymphocytes 0.68 (*) Final Absolute Monocytes 0.84 (*) Final Absolute Eosinophils 0.21 Final Absolute Basophils 0.04 Final Absolute Immature Grans 0.03 Final Type of Differential: Auto Final COMPREHENSIVE METABOLIC PANEL (CMP) - Abnormal Sodium 135 (*) Final Potassium 3.8 Final Chloride 102 Final CO2 Total 22 Final Glucose 126 (*) Final BUN 24 Final Creatinine 0.73 Final eGFR 82 Final Total Protein 6.9 Final Albumin 4.0 Final Alkaline Phosphatase 102 Final AST 28 Final ALT 27 Final Bilirubin, Total 0.6 Final Calcium 8.6 Final Albumin/Globulin Ratio 1.4 Final Anion Gap 11 Final C REACTIVE PROTEIN - Normal C-Reactive Protein <5.0 Final COVID-19 TESTING COVID-19 rt-PCR Result Negative Final Performing Lab Cepheid GeneXpert [facility] Final COVID-19 [facility] ([place] ONLY) Imaging obtained was reviewed and independently interpreted: CT HEAD WO CONTRAST Final Result 1. No acute intracranial abnormalities. 2. Atrophy with chronic white matter microangiopathic changes and remote ischemic changes, similar appearance to previous. 3. 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 4. Right supraorbital/frontal scalp contusion. THIS DOCUMENT HAS BEEN ELECTRONICALLY SIGNED BY ENMANUEL CASTRO MD FOR ANY QUESTIONS OR CONCERNS REGARDING THIS REPORT PLEASE CALL [facility] AT [phone] Disposition Signed out to incoming physician Disposition decisions were made weighing risks and benefits of hospitalization vs. outpatient treatment, the risk for further decompensation, and the patient???s wishes. - If discharged: the patient was stable, improved, or requested discharge. Prior to discharge my usual and customary return precautions were reviewed with the patient and/or family. This included follow-up instructions and reasons to return to the Emergency Department if condition worsens, does notimprove as expected, or other new concerns arise. - If admitted: the patient???s condition was severe enough to require additional inpatient evaluation and treatment, or the patient was at risk of sudden decompensation. documented in this encounter Miscellaneous Notes * Plan of Care - Cate Marcano - 02/22/2022 1010 EDT 02/22/22 1009 Observation Notification Notification of outpatient observation services Patient received notification verbally and in writing while in hospital. Obs letter complete? Yes * Plan of Care - Katie Quintanilla RN - 02/22/2022 0505 EDT PT AOX3, reg respirations on RA, no c/o pain, no s/s of distress, pt ambulated to bedside commode with 1 assist, pt able to make needs known to staff, call light within reach, bed in lowest position,safety maintained, will continue to monitor. * Plan of Care - Maribel Haywood RN - 02/21/2022 1841 EDT Problem: High Fall Risk: Goal: Patient Will Remain Free from Fall-Related Injury Outcome: Ongoing Pt assist of 1 oob to commode Bed alarm engaged Safety maintained documented in this encounter Plan of Treatment Upcoming Encounters Date Type Department Care Team (Late st Contact Info) Description 06/11/2024 12:45 EDT Office Visit [facility] Ophthalmology - [address] [address] Enmanuel Anthony MD [address] [place] [address], [facility] [address] [place] [phone] 07/15/2024 10:45 EDT Office Visit [facility] [address] [place], [place] [id number] Gianfranco Flowers MD [address] [facility] [address] [place] [phone] documented as of this encounter Procedures Procedure Name Priority Date/Time Associated Diagnosis Comments COMPLETE BLOOD COUNT Routine 02/22/2022 6:30 EDT BASIC METABOLIC PANEL (BMP) Routine 02/22/2022 6:30 EDT C. DIFFICILE PCR ([facility], [facility], [facility]) Routine 02/21/2022 12:35 EDT COMPLETE BLOOD COUNT AND DIFFERENTIAL STAT 02/21/2022 6:38 EDT C REACTIVE PROTEIN STAT 02/21/2022 6: 38 EDT COMPREHENSIVE METABOLIC PANEL (CMP) STAT 02/21/2022 6:38 EDT [facility]ZCOVID-19 [facility] (TESTING ONLY) Today 02/21/2022 6:31 EDT COVID-19 TESTING Routine 02/21/2022 6:[address] HEAD WO CONTRAST STAT 02/21/2022 6 :23 EDT ED LACERATION REPAIR Routine 02/21/2022 6:09 EDT ED LACERATION REPAIR Routine 02/21/2022 6:09 EDT documented in this encounter Results * COMPLETE BLOOD COUNT (02/22/2022 6:30 EDT) [facility] Signature WBC 5.74 4.00 - 12.40 K/cmm 02/22/2022 6:45 [facility] RBC 3.95 3.86 - 5.04 M/cmm 02/22/2022 6:45 [facility] Hemoglobin 12.5 11.6 - 15.2 gm/dL 02/22/2022 6:45 [facility] HCT 37.7 34.9 - 44.4 % 02/22/2022 6:45 [facility] MCV 95 81 - 98 fl 02/22/2022 6:45 [facility] MCH 31.6 26.7 - 33.3 pg 02/22/2022 6:45 [facility] MCHC 33.2 32.1 - 35.9 gm/dL 02/22/2022 6:45 [facility] RDW-CV 13.3 <14.7 % 02/22/2022 6:45 [facility] RDW-SD 46.6 <50.4 fl 02/22/2022 6:45 [facility] PLT 198 141 - 377 K/cmm 02/22/2022 6:45 [facility] MPV 10.3 9.5 - 12.7 fl 02/22/2022 6:45 EDT [facility] Blood VENOUS BLOOD / Unknown Venipuncture / Unknown 02/22/2022 6:30 EDT 02/22/2022 6:37 EDT Jayme Begum MD HEMATOLOGY & PF4 ORD ERABLES Performing Organization Address [facility] Co de Phone Number [facility] [address] [place] [address] * (ABNORMAL) BASIC METABOLIC PANEL (BMP) (02/22/2022 6:30 EDT) Sodium 136 136 - 145 mmol/L 02/22/2022 7:17 [facility] Potassium 4.3 3.5 - 5.0 mmol/L 02/22/2022 7:17 [facility] Chloride 105 96 - 110 mmol/L 02/22/2022 7:17 [facility] CO2 Total 23 22 - 32 mmol/L 02/22/2022 7:17 [facility] Anion Gap 8 5 - 14 02/22/2022 7:17 [facility] Glucose 134(H) 70 - 100 mg/dL 02/22/2022 7:17 [facility] Calcium 8.1(L) 8.5 - 10.5 mg/dL 02/22/2022 7:17 [facility] BUN 19 10 - 26 mg/dL 02/22/2022 7:17 [facility] Creatinine 0.92 0.52 - 1.04 mg/dL 02/22/2022 7:17 [facility] eGFR 62 >60 mL/min/1.73 m2 02/22/2022 7:17 [facility] Blood VENOUS BLOOD / Unknown Venipuncture / Unknown 02/22/2022 6:30 EDT 02/22/2022 6:37 EDT Jayme Begum MD CHEMISTRY & BLOOD GA S ORDERABLES Performing Organization Address City/[facility]/ZIP Co de Phone Number [facility] [address] [place] [address] * C. DIFFICILE PCR ([facility], [facility], [facility], [facility]) (02/21/2022 12:35 EDT) C. difficile PCR Negative Negative 02/21/2022 14:01 EDT [facility] 027, NAP1, BI Strain Presumptive Negative Negative, Presumptive Negative 02/21/2022 14:01 EDT [facility] Feces SPECIMEN FROM RECTUM / Unknown Stool Collect / Unknown 02/21/2022 12:35 EDT 02/21/2022 12:39 EDT Jayme Begum MD MICROBIOLOGY - GENER AL ORDERABLES Performing Organization Address [facility]/ZIP Co de Phone Number [facility] [address] [place] [address] * C REACTIVE PROTEIN (02/21/2022 6:38 EDT) C-Reactive Protein <5.0 <10.0 mg/L 02/21/2022 7:04 EDT [facility] Blood VENOUS BLOOD / Unknown Venipuncture / Unknown 02/21/2022 6:38 EDT 02/21/2022 6:40 EDT Bean Malagon MD CHEMISTRY & BL OOD GAS ORDERABLES Performing Organization Address City/[facility]/ZIP Co de Phone Number [facility] [address] [place] [address] * (ABNORMAL) COMPREHENSIVE METABOLIC PANEL (CMP) (02/21/2022 6:38 EDT) Sodium 135(L) 136 - 145 mmol/L 02/21/2022 7:04 EDT [facility] Potassium 3.8 3.5 - 5.0 mmol/L 02/21/2022 7:04 EDT [facility] Chloride 102 96 - 110 mmol/L 02/21/2022 7:04 EDT [facility] CO2 Total 22 22 - 32 mmol/L 02/21/2022 7:04 [facility] Glucose 126(H) 70 - 100 mg/dL 02/21/2022 7:04 [facility] BUN 24 10 - 26 mg/dL 02/21/2022 7:04 [facility] Creatinine 0.73 0.52 - 1.04 mg/dL 02/21/2022 7:04 [facility] eGFR 82 >60 mL/min/1.7 3m2 02/21/2022 7:04 [facility] Total Protein 6.9 6.3 - 8.2 g/dL 02/21/2022 7:04 [facility] Albumin 4.0 3.4 - 4.9 g/dL 02/21/2022 7:04 [facility] Alkaline Phosphatase 102 38 - 126 U/L 02/21/2022 7:04 [facility] AST 28 15 - 46 U/L 02/21/2022 7:04 [facility] ALT 27 <35 U/L 02/21/2022 7:04 [facility] Bilirubin, Total 0.6 <1.4 mg/dL 02/22/20 7:04 [facility] Calcium 8.6 8.5 - 10.5 mg/dL 02/21/2022 7:04 [facility] Albumin/Globulin Ratio 1.4 1.0 - 2.5 02/21/2022 7:04 [facility] Anion Gap 11 5 - 14 02/21/2022 7:04 [facility] Blood VENOUS BLOOD / Unknown Venipuncture / Unknown 02/21/2022 6:38 EDT 02/21/2022 6:40 EDT Bean Malagon MD CHEMISTRY & BL OOD GAS ORDERABLES [facility] [address] [place] [address] * (ABNORMAL) COMPLETE BLOOD COUNT AND DIFFERENTIAL (02/21/2022 6:38 EDT) [facility] WBC 12.14 4.00 - 12.40 K/cmm 02/21/2022 6:42 [facility] RBC 4.46 3.86 - 5.04 M/cmm 02/21/2022 6:42 [facility] Hemoglobin 14.3 11.6 - 15.2 gm/dL 02/21/2022 6:42 [facility] HCT 42.1 34.9 - 44.4 % 02/21/2022 6:42 [facility] MCV 94 81 - 98 fl 02/21/2022 6:42 [facility] MCH 32.1 26.7 - 33.3 pg 02/21/2022 6:42 [facility] MCHC 34.0 32.1 - 35.9 gm/dL 02/21/2022 6:42 [facility] RDW-CV 13.2 <14.7 % 02/21/2022 6:42 [facility] RDW-SD 45.5 <50.4 fl 02/21/2022 6:42 [facility] PLT 212 141 - 377 K/cmm 02/21/2022 6:42 [facility] MPV 10.2 9.5 - 12.7 fl 02/21/2022 6:42 [facility] % Neutrophils 85.3 % 02/21/2022 6:42 [facility] % Lymphocytes 5.6 % 02/21/2022 6:42 [facility] % Monocytes 6.9 % 02/21/2022 6:42 [facility] % Eosinophils 1.7 % 02/21/2022 6:42 [facility] % Basophils 0.3 % 02/21/2022 6:42 [facility] % Immature Grans 0.2 % 02/22/20 6:42 [facility] Absolute Neutrophils 10.34(H) 2.20 - 8.85 K/cmm 02/21/2022 6:42 EDT [facility] Absolute Lymphocytes 0.68(L) 1.09 - 3.30 K/cmm 02/21/2022 6:42 T [facility] Absolute Monocytes 0.84(H) 0.10 - 0.80 K/cmm 02/21/2022 6:42 [facility] Absolute Eosinophils 0.21 0.03 - 0.61 K/cmm 02/21/2022 6:42 EDT [facility] ABS Basophils 0.04 0.01 - 0.11 K/cmm 02/21/2022 6:42 [facility] Absolute Immature Grans 0.03 0.00 - 0.06 K/cmm 02/21/2022 6:42 [facility] Type of Differential: Auto 02/21/2022 6:42 EDT [facility] Blood VENOUS BLOOD / Unknown Venipuncture / Unknown 02/21/2022 6:38 EDT 02/21/2022 6:40 EDT Bean Malagon MD PACKAGES & DNA PROBE ORDERABLES Performing Organization Address City/[facility]/ZIP Co de Phone Number [facility] [address] [place] [address] * COVID-19 [facility] [place] (02/21/2022 6:31 EDT) Swab BOTH ANTERIOR NARES / Unknown Swab / Unknown 02/21/2022 6:31 EDT 02/21/2022 6:35 EDT Bean Malagon MD MICROBIOLOGY - GENERAL ORDERABLES [facility] [address] [place] [id number] * COVID-19 TESTING (02/21/2022 6:31 EDT) COVID-19 rt-PCR Result Negative Negative 02/21/2022 7:35 EDT [facility] Performing Lab Cepheid GeneXpert [facility] 02/21/2022 7:35 EDT [facility] Swab BOTH ANTERIOR NARES / Unknown Swab / Unknown 02/21/2022 6:31 EDT 02/21/2022 6:35 EDT Bean Malagon MD MICROBIOLOGY - GENERAL ORDERABLES [facility] [address] [place] [address] * CT HEAD WO CONTRAST (02/21/2022 6:23 EDT) Anatomical Region Laterality Modality Head Computed Tomogra phy 02/21/2022 5:54 EDT Impressions 02/21/2022 7:22 EDT 1. No acute intracranial abnormalities. 2. Atrophy with chronic white matter microangiopathic changes and remote ischemic changes, similar appearance to previous. 3. 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 4. Right supraorbital/frontal scalp contusion. THIS DOCUMENT HAS BEEN ELECTRONICALLY SIGNED BY ENMANUEL CASTRO MD FOR ANY QUESTIONS OR CONCERNS REGARDING THIS REPORT PLEASE CALL [facility] AT [phone] Narrative 02/21/2022 7:22 EDT PROCEDURE INFORMATION: Exam: CT Head Without Contrast Exam date and time: 02/21/2022 5:54 AM Age: 81 years old Clinical indication: Injury or trauma; Fall; Blunt trauma (contusions or hematomas); Without loss of consciousness; Additional info: Head trauma, scalp hematoma (ped 0-1y) TECHNIQUE: Imaging protocol: Computed tomography of the head without contrast. Radiation optimization: All CT scans at this facility use at least one of these dose optimization techniques: automated exposure control; mA and/or kV adjustment per patient size (includes targeted exams where dose is matched to clinical indication); or iterative reconstruction. COMPARISON: CT HEAD WITHOUT CONTRAST 01/18/2020 3:48 PM FINDINGS: Brain: Decreased periventricular and subcortical attenuation compatible with mild chronic white matter ischemic change. No acute cerebrovascular accident. No acute intracranial hemorrhage. Partially calcified 1.2 cm mass medial right parietal lobe mass, stable appearance, likely vascular malformation as previously described. No other mass, positive mass effect or midline shift. Remote ischemic changes within the basal ganglia, gabe and cerebellar hemispheres, similar to previous. No significant interval CVA. Cerebral ventricles: Prominent ventricles and sulci compatible with mild volume loss/atrophy. Paranasal sinuses: Left maxillary retention cyst/polyp. No significant acute paranasal sinus disease. Mastoid air cells: Visualized mastoid air cells are unremarkable. Orbital cavities: Right supraorbital/frontal scalp contusion. Bones/joints: No linear or depressed skull fracture. No lytic or blastic lesion. Soft tissues: Soft tissues are otherwise relatively unremarkable. None Procedure Note Enmanuel Castro MD - 02/21/2022 PROCEDURE INFORMATION: Exam: CT Head Without Contrast Exam date and time: 02/21/2022 5:54 AM Age: 81 years old Clinical indication: Injury or trauma; Fall; Blunt trauma (contusions or hematomas); Without loss of consciousness; Additional info: Head trauma, scalp hematoma (ped 0-1y) TECHNIQUE: Imaging protocol: Computed tomography of the head without contrast. Radiation optimization: All CT scans at this facility use at least one of these dose optimization techniques: automated exposure control; mA and/or kV adjustment per patient size (includes targeted exams where dose is matched to clinical indication); or iterative reconstruction. COMPARISON: CT HEAD WITHOUT CONTRAST 01/18/2020 3:48 PM FINDINGS: Brain: Decreased periventricular and subcortical attenuation compatible with mild chronic white matter ischemic change. No acute cerebrovascular accident. No acute intracranial hemorrhage. Partially calcified 1.2 cm mass medial right parietal lobe mass, stable appearance, likely vascular malformation as previously described. No other mass, positive mass effect or midline shift. Remote ischemic changes within the basal ganglia, gabe and cerebellar hemispheres, similar to previous. No significant interval CVA. Cerebral ventricles: Prominent ventricles and sulci compatible with mild volume loss/atrophy. Paranasal sinuses: Left maxillary retention cyst/polyp. No significant acute paranasal sinus disease. Mastoid air cells: Visualized mastoid air cells are unremarkable. Orbital cavities: Right supraorbital/frontal scalp contusion. Bones/joints: No linear or depressed skull fracture. No lytic or blastic lesion. Soft tissues: Soft tissues are otherwise relatively unremarkable. None IMPRESSION 1. No acute intracranial abnormalities. 2. Atrophy with chronic white matter microangiopathic changes and remote ischemic changes, similar appearance to previous. 3. 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 4. Right supraorbital/frontal scalp contusion. THIS DOCUMENT HAS BEEN ELECTRONICALLY SIGNED BY ENMANUEL CASTRO MD FOR ANY QUESTIONS OR CONCERNS REGARDING THIS REPORT PLEASE CALL [facility] [phone] Bean Malagon MD IMG CT ORDERAB LES * [place] SIMPLE REPAIR F/E/E/N/L/M 2.5CM/<, HC - SIMPLE REPAIR F/E/E/N/L/M 2.5CM/< (02/21/2022 6:09EDT) [facility] EKG - 02/21/2022 6:09 EDT Bean Malagon MD ? 02/21/2022 ??7:33 Laceration Repair Date/Time: 02/21/2022 6:09 Performed by: Bean Malagon MD Authorized by: Bean Malagon MD Consent: ??Consent obtained: ??Verbal ??Consent given by: ??Patient ??Risks discussed: ??Infection, pain, retained foreign body, need for additional repair, vascular damage, nerve damage, poor cosmetic result, poor wound healing and tendon damage ??Alternatives discussed: ??No treatment, delayed treatment, observation and referral [place] protocol: ??Procedure explained and questions answered to patient or proxy's satisfaction: yes ?Relevant documents present and verified: yes ?Test results available and properly labeled: yes ?Imaging studies available: yes ?Required blood products, implants, devices, and special equipment available: yes ?Site/side marked: yes ?Immediately prior to procedure, a time out was called: yes ?Patient identity confirmed: ??Verbally with patient Anesthesia (see MAR for exact dosages): ??Anesthesia method: ??Local infiltration ??Local anesthetic: ??Lidocaine 2% w/o epi Laceration details: ??Location: ??Face ??Face location: ??Forehead ??Length (cm): ??2.5 ??Depth (mm): ??1 Repair type: ??Repair type: ??Simple Pre-procedure details: ??Preparation: ??Patient was prepped and draped in usual sterile fashion Exploration: ??Wound exploration: wound explored through full range of motion and entire depth of wound probed and visualized ?Wound extent: no foreign bodies/material noted, no nerve damage noted, no tendon damage noted, no underlying fracture noted and no vascular damage noted ?Contaminated: no ?? Treatment: ??Area cleansed with: ??Saline ??Amount of cleaning: ??Standard ??Irrigation solution: ??Sterile saline ??Irrigation method: ??Syringe ??Visualized foreign bodies/material removed: no ?? Skin repair: ??Repair method: ??Sutures ??Suture size: ??6-0 ??Suture material: ??Nylon ??Suture technique: ??Simple interrupted Approximation: ??Approximation: ??Close Post-procedure details: ??Dressing: ??Antibiotic ointment and non-adherent dressing ??Patient tolerance of procedure: ??Tolerated well, no immediate complications Bean Malagon MD PROCEDURE/SRINATH Godoy SURGICAL ORDERABLES [facility] EKG documented in this encounter Visit Diagnoses Diagnosis Forehead laceration, initial encounter- Primary Forehead laceration, initial encounter Vomiting and diarrhea Vomiting alone Generalized weakness Other malaise and fatigue Vomiting and diarrhea Vomiting alone documented in this encounter Admitting Diagnoses Diagnosis Generalized weakness Other malaise and fatigue documented in this encounter Administered Medications Inactive Administered Medications - up to 3 most recent administrations Medication Order MAR Action Action Date Dose Rate Site aspirin chewable tablet 81 mg 81 mg, oral, DAILY, First dose on Sun02/21/22 at 1245, Until Discontinued, Routine Given 02/22/2022 9:36 EDT 81 mg Given 02/21/2022 14:12 EDT 81 mg atorvastatin (LIPITOR) tablet 40 mg 40 mg, oral, AT BEDTIME, First dose on Sun02/21/22 at 2100, Until Discontinued, Routine Given 02/21/2022 20:12 EDT 4 0 mg carvediloL (COREG) tablet 6.25 mg 6.25 mg, oral, 2 TIMES DAILY WITH BREAKFAST & DINNER, First dose on Sun02/21/22 at 1700, Until Discontinued, Routine Given 02/22/2022 9:36 EDT 6.25 mg Given 02/21/2022 17:36 EDT 6.25 mg clopidogreL (PLAVIX) tablet 75 mg 75 mg, oral, DAILY, First dose on Sun02/21/22 at 1245, Until Discontinued, Routine Given 02/22/2022 9:36 EDT 75 mg Given 02/21/2022 14:13 EDT 75 mg fluticasone propionate (FLONASE) nasal spray 1 [place] 1 [place], nasal - both, 2 TIMES DAILY, First dose on Sun02/21/22 at 1245, Until Discontinued, Routine Given 02/22/2022 9:36 EDT 1 [place] Given 02/21/2022 20:12 EDT 1 [place] levothyroxine (SYNTHROID) tablet 100 mcg 100 mcg, oral, DAILY, First dose on Sun02/21/22 at 1230, Until Discontinued, Routine Given 02/22/2022 6:03 EDT 100 mcg Given 02/21/2022 14:12 EDT 100 mcg ondansetron (ZOFRAN-ODT) disintegrating tablet 4 mg 4 mg, oral, NOW X1, 1 dose, On Sun02/21/22 at 1245, Routine Given 02/21/2022 14:12 EDT 4 mg pantoprazole (PROTONIX) tablet 40 mg 40 mg, oral, DAILY, First dose on Sun02/21/22 at 1245, Until Discontinued, Routine Given 02/21/2022 14:13 EDT 40 mg sodium chloride 0.9 % BOLUS 250 mL 250 mL, intravenous, NOW X1, 1 dose, On Sun02/21/22 at 0730, STAT New Bag 02/21/2022 7:37 EDT 250 mL documented in this encounter Discontinued Medications Medication Sig Discontinue Reason Start Date End Da te carboxymethylcellulose sodium (ARTIFICIAL TEARS, [facility],) 1 % drops Apply 2 Drops to eye as needed (dry eye). 10/21/2021 02/21/2022 hydrocortisone 1 % ointmentIndications:Jose Martin rgic rash present on examination Apply to affected area TID PRN 10/21/2021 02/21/2022 cholecalciferol, Vitamin D3, 25 mcg (1,000 unit) tabletIndications:Vitami n D deficiency Take 1 Tablet by mouth daily. 12/06/2021 02/21/2022 documented as of this encounter Active and Recently Administered Medications Times are shown in EDT. Scheduled Medication Order 02/20/2022 02/21/2022 02/22/2022 aspirin chewable tablet 81 mg 81 mg, oral, DAILY, First dose on Sun02/21/22 at 1245, Until Discontinued, Routine 1412 (Given - Provider: Maribel Haywood RN) 0936 (Given - Provider: Megan Ravi, ANA) atorvastatin (LIPITOR) tablet 40 mg 40 mg, oral, AT BEDTIME, First dose on Sun02/21/22 at 2100, Until Discontinued, Routine 2011 (Given - Provider: Katie Quintanilla, RN) carvediloL (COREG) tablet 6.25 mg 6.25 mg, oral, 2 TIMES DAILY WITH BREAKFAST & DINNER, First dose on Sun02/21/22 at 1700, Until Discontinued, Routine 1736 (Given - Provider: Maribel Haywood RN) 0936 (Given - Provider: Megan Ravi, ANA) clopidogreL (PLAVIX) tablet 75 mg 75 mg, oral, DAILY, First dose on Sun02/21/22 at 1245, Until Discontinued, Routine 1413 (Given - Provider: Maribel Haywood RN) 0936 (Given - Provider: Megan Ravi, ANA) fluticasone propionate (FLONASE) nasal spray 1 [place] 1 [place], nasal - both, 2 TIMES DAILY, First dose on Sun02/21/22 at 1245, Until Discontinued, Routine 1300 (Not Given - Provider: Maribel Haywood RN - Reason: Medication not available)2011 (Given - Provider: Katie Quintanilla RN) 0936 (Given - Provider: Megan Ravi, ANA) levothyroxine (SYNTHROID) tablet 100 mcg 100 mcg, oral, DAILY, First dose on Sun02/21/22 at 1230, Until Discontinued, Routine 1412 (Given - Provider: Maribel Haywood RN) 0603 (Given - Provider: Katie Quintanilla, RN) ondansetron (ZOFRAN-ODT) disintegrating tablet 4 mg (COMPLETED) 4 mg, oral, NOW X1, 1 dose, On Sun02/21/22 at 1245, Routine 1412 (Given - Provider: Maribel Haywood RN) pantoprazole (PROTONIX) tablet 40 mg 40 mg, oral, DAILY, First dose on Sun02/21/22 at 1245, Until Discontinued, Routine 1413 (Given - Provider: Maribel Haywood RN) 0936 (Not Given - Provider: Megan Ravi RN - Reason: Patient/family refused) sodium chloride 0.9 % BOLUS 250 mL (COMPLETED) 250 mL, intravenous, NOW X1, 1 dose, On Sun02/21/22 at 0730, STAT 0737 (New Bag - Provider: Henny Tidwell RN) PRN Medication Order 02/20/2022 02/21/2022 02/22/2022 acetaminophen (TYLENOL) tablet 650 mg 650 mg, oral, EVERY 6 HOURS PRN, Starting on Sun02/21/22 at 1217, Until Sun02/22/22 at 1327, Pain, Fever, Routine calcium carbonate (TUMS) 200 mg calcium (500 mg) per chewable tablet tablet,chewable 2 Tablet 2 Tablet, oral, EVERY 6 HOURS PRN, Starting on Sun02/21/22 at 1217, Until Sun02/22/22 at 1327, Indigestion, Routine lidocaine (PF) 10 mg/mL (1 %) injection 2 mg 2 mg, intradermal, PRN, 4 doses, Starting on Sun02/21/22 at 1217, Until Sun02/22/22 at 1327, Other, peripheral intravenous catheter placement, Routine nitroglycerin (NITROSTAT) SL tablet 0.4 mg 0.4 mg, sublingual, EVERY 5 MIN PRN, Starting on Sun02/21/22 at 1224, Until Sun02/22/22 at 1327, Chest Pain, Routine ramelteon (ROZEREM) tablet 8 mg 8 mg, oral, AT BEDTIME PRN, Starting on Sun02/21/22 at 1217, Until Sun02/22/22 at 1327, Sleep, Routine documented in this encounter Orders Medications Ordered That Anant ht Not Have Been Administered Count Last Ordered Date First Ordered Date acetaminophen (TYLENOL) tablet 650 mg 1 calcium carbonate (TUMS) 200 mg calcium (500 mg) per chewable tablet tablet,chewable 2 Tablet 1 02/21/2022 diphenhydrAMINE (BENADRYL) capsule 25 mg 1 02/21/2022 lidocaine (PF) 10 mg/mL (1 % ) injection 2 mg 1 02/21/2022 nitroglycerin (NITROSTAT) SL tablet 0.4 mg 1 02/21/2022 ramelteon (ROZEREM) tablet 8 mg 1 2 Diet Count Last Ordered Date First Orde red Date DISCHARGE DIET 1 02/22/2022 Nursing Count Last Ordered Date First Orde red Date ACTIVITY INSTRUCTIONS 1 02/22/2022 BATHING INSTRUCTIONS 1 02/22/2022 DRIVING INSTRUCTIONS 1 02/22/2022 CALL HOSPITALIST FOR ADM/REF [facility]ARL[facility] TO [facility] NURSE 1 02/21/2022 Admission Count Last Ordered Date First Orde red Date OUTPATIENT WITH OBSERVATION SERVICES (INITIATE OBSERVATION STATUS) 1 02/21/2022 Transfer Count Last Ordered Date First Orde red Date ED BED REQUEST 1 02/21/2022 Discharge Count Last Ordered Date First Orde red Date DISCHARGE PATIENT 1 02/22/2022 Legal Count Last Ordered Date First Orde red Date MISCELLANEOUS DISCHARGE INSTRUCTIONS 2 01/30 documented in this encounter Additional Health Concerns Infection Onset Date Last Indicated Resolved Time R/O COVID-19 Comment:Covid neg. 02/21/2022 02/21/2022 02/21/2022 10:07 EDT Rule-Out C. difficile 02/21/2022 02/21/20222021 14:01 EDT documented as of this encounter Care Teams Sandblasting Supervisor Relationship Specialty Start Date End Date Nivia Tinsley MD [address] [place] [address] [phone] PCP - General Family Medicine - Primary Care 08/27/19 Zheng Tapia MD [address] [place] [address] [place] [phone] Internal Medicine - Primary Care 09/01/19 Shazia Burks MD [address] [place] [address]67 Neurology 09/01/19 Tony Baron OD [address] [place] [phone] Superintendent Automotive 09/01/19 Keira Paniagua MD [address] [place] [address] [address] [place] [phone] Cardiovascular Disease 09/06/20 Siva Perkins MD [address] [place] [address] [place] [phone] Neurology 09/06/20 documented as of this encounter
--- OUTSIDE RECORDS SUMMARY | 2024-04-29 18:19 | XMS_ITS | Encounter Summary ---
Author Organization [facility] Address [address] [place] [address] Care Team Providers Care Physicist Light And Optics Name Role Phone Nivia Tinsley MD Primary Care Provider Zheng Tapia MD Unavailable Shazia Burks MD Unavailable [phone] Tony Baron OD Unavailable [phone] Keira Paniagua MD Unavailable [phone] Siva Perkins MD Unavailable [phone] Reason for Visit * Reason Comments Eye Problem Wet AMD left eye Encounter Details Date Type Department Care Team (Late st Contact Info) Description 04/26/2022 8:00 EDT Office Visit [facility] Ophthalmology [facility] [address] [place] [address] Santiago Anthony MD [address] [facility], [address] [place] [address] Social History Tobacco Use Types [...] Progress Notes * Santiago Anthony MD - 04/26/2022 0800 EDT Chief Complaint Patient presents with ??? Eye Problem Wet AMD left eye Comments Eye Problem Additional comments: Wet AMD left eye HPI Location: Left eye Pain: 0 - No pain Quality: Severity: Moderate Duration: Months Timing: Constant Lasts: Continuous Context: Wet AMD left eye s/p Eylea 12/30/2021 Modifying factors: Feels vision may be darker since last visit. No new floaters or flashes of light. No recent eye pain. Associated Signs & Symptoms: Visual Fluctuations: Attestation: Base Eye Exam Visual Acuity (Snellen - Linear) Right Left Dist cc 20/300 20/300 -1 Dist ph cc NI NI Correction: Glasses Tonometry (Applanation, 8:18) Right Left Pressure 19 19 Pupils Pupils APD Right PERRL None Left PERRL None Dilation Both eyes: Phenylephrine 2.5%, Tropicamide 1% @ 8:18 Slit Lamp and Fundus Exam Slit Lamp [...] good. Scan locations included subfoveal. Findings include (thin). Left Eye Quality was poor. Findings include (Poor quality due to movement). Intravitreal Injection, Pharmacologic Agent - OS - Left Eye Time Out 04/26/2022. 9:33. Confirmed correct patient, procedure, site, and patient consented. Anesthesia Topical anesthesia was used. Anesthetic medications included Proparacaine 0.5%, Tetracaine 0.5%. Procedure Preparation included 5% betadine to ocular surface, eyelid speculum. A 30 gauge needle was used. Injection: 2 mg aflibercept (EYLEA) intravitreal syringe NDC: 26183-634-86, Lot: [id number], Expiration date: 11/01/2022 Route: intravitreal, Site: Left Eye Post-op The patient tolerated the procedure well. There were no complications. Post injection medications were not given. IMPRESSION: 1. Exudative age-related macular degeneration of left eye, unspecified stage (HCC) OCT, RETINA - OU- BOTH EYES INTRAVITREAL INJECTION, PHARMACOLOGIC AGENT - OS - LEFT EYE aflibercept (EYLEA) intravitreal syringe 2 mg PLAN: Wet age related macular degeneration left eye Previous Dr. Juarez patient, last injection 03/24/2022 Discussed with patient about ongoing treatment plan. Patient has stated a few times that she think that the injections do help her vision. At thus time we will continue with injections in the left eye and space out visits May also cease if we find that it is not benefiting her Recommend Eylea left eye Patient agrees Eylea done to left eye today Follow up in 11 and 20 weeks for ?Eylea left eye, OCT or PRN I, Dr. Santiago Anthony, have performed my [...] Info) Description 06/11/2024 12:45 EDT Office Visit [facility] Ophthalmology - [address] [address] Santiago Anthony MD [address] [place] [address] [address] [place] [address] 07/15/2024 10:45 EDT Office Visit [facility] Clinic [address] [place] [address] Gianfranco Flowers MD [address] [facility] [place] [address] documented as of this encounter Procedures Procedure Name Priority Date/Time Associated Diagnosis Comments INTRAVITREAL INJECTION, PHARMACOLOGIC AGENT - OS - LEFT EYE Routine 04/26/2022 9:40 EDT Exudative age-related macular degeneration of left eye, unspecified stage (HCC) OCT, RETINA - OU - BOTH EYES Routine 04/26/2022 9:32 EDT Exudative age-related macular degeneration of left eye, unspecified stage (HCC) documented in this encounter Results * INTRAVITREAL INJECTION, PHARMACOLOGIC AGENT - OS - LEFT EYE (04/26/2022 9:40 EDT) Narrative [facility] - 04/26/2022 9:46 EDT Time Out 04/26/2022. 9:33. Confirmed correct patient, procedure, site, and patient consented. Anesthesia Topical anesthesia was used. Anesthetic medications included Proparacaine 0.5%, Tetracaine 0.5%. Procedure Preparation included 5% betadine to ocular surface, eyelid speculum. A 30 gauge needle was used. Injection: 2 mg aflibercept (EYLEA) intravitreal syringe ??[facility]: 00222-181-10, Lot: [id number], Expiration date: 11/01/2022 ??Route: intravitreal, Site: Left Eye Post-op The patient tolerated the procedure well. There were no complications. Post injection medications were not given. Santiago Anthony MD OPHTH CLINIC PROCEDU RES Performing Organization Address [facility]/ZIP Co de Phone Number [facility] * OCT, RETINA - OU - BOTH EYES (04/26/2022 9:32 EDT) Narrative [facility] - 04/26/2022 9:46 EDT Right Eye Quality was good. Scan locations included subfoveal. Findings include (thin). Left Eye Quality was poor. Findings include (Poor quality due to movement). Santiago Anthony MD OPHTH TOMOGRAPHY Performing Organization Address [facility] Co de Phone Number [facility] documented in this encounter Visit Diagnoses Diagnosis Exudative age-related macular degeneration of left eye, unspecified stage ([facility])- Primary documented in this encounter Administered Medications Inactive Administered Medications - up to 3 most recent administrations Medication Order MAR Action Action Date Dose Rate Site aflibercept (EYLEA) intravitreal syringe 2 mg 2 mg, intravitreal, Starting on Sun04/26/22 at 0939, Until Sun04/26/22 at 1147, Routine Given 04/26/2022 9:39 EDT 2 mg Left Eye documented in this encounter Eye Exam Visual Acuity (Snellen - Linear) Right eye Left eye Dist cc 20/300 20/300 -1 Dist ph cc NI NI Correction: Glasses Tonometry (Applanation, 8:18) Right eye Left eye Pressure 19 19 Pupils Pupils APD Right eye PERRL None Left eye PERRL None Dilation Both eyes: Phenylephrine 2.5 %, Tropicamide 1% @ 8:18 Slit Lamp Exam Right eye Left eye [...] Periphery blond fundus blond fundus Care Teams Physicist Light And Optics Relationship Specialty Start Date End Date Nivia Tinsley MD [address] [place] [address] PCP - General Family Medicine - Primary Care 08/27/19 Zheng Tapia MD [address] [place] [address] [address] [place] [address] Internal Medicine - Primary Care 09/01/19 Shazia Burks MD [address] [place] [address] Neurology 09/01/19 Tony Baron, OD [address] [place] [address] Sql Database Administrator 09/01/19 Keira Paniagua MD [address] [place] [address] [address] [place] [address] Cardiovascular Disease 09/06/20 Siva Perkins MD [address] [place] [phone] Neurology 09/06/20 documented as of this encounter
--- OUTSIDE RECORDS SUMMARY | 2024-04-29 18:19 | XMS_ITS | Encounter Summary ---
Author Organization [facility] Address [address] [place] [address] Care Team Providers Care School Photograph Editor Name Role Phone Nivia Tinsley MD Primary Care Provider [phone] Zheng Tapia MD Unavailable Shazia Burks MD Unavailable [phone] Tony Baron OD Unavailable [phone] Keira Paniagua MD Unavailable [phone] Siva Perkins MD Unavailable [phone] Reason for Visit * Reason Onset Date Comments Follow-up 07/11/2022 Encounter Details Date Type Department Care Team (Late st Contact Info) Description 07/11/2022 Telephone [facility] [address] [place], [place] [phone] Nivia Tinsley MD [address] [place], [place] [phone] Follow-up Social History Tobacco Use Types Packs/Day [...] slept in a retirement (including now)? No 12/26/2021 Interpersonal Safety Answer [...] Telephone Encounter - Fay Dotson RN - 07/17/2022 0827 EDT Patient currently taking tylenol 650 mg BID for arthritis pain. States it is just taking the edge off, but not working that great. Advised that she could take 1000 mg TID or even 650 TID to see if this helps. She has an upcoming appointment with PCP on 08/03 to discuss. She will get her flu shot at this time as well * Telephone Encounter - Marixa Kenny - 07/11/2022 0957 EDT Pt was told to take 650 mg of tylenol and she wanted to double check that this is still okay. documented in this encounter Plan of Treatment Upcoming Encounters Date Type Department Care Team (Late st Contact Info) Description 06/11/2024 12:45 EDT Office Visit [facility] Ophthalmology [facility] [address] [place] [address] Santiago Anthony MD [address] [place] [address], [address] [place] [address] 07/15/2024 10:45 EDT Office Visit [facility] Cardiology Clinic [address] [place], [place] [phone] Gianfranco Flowers MD [address] [place] [address] [phone] documented as of this encounter Visit Diagnoses Not on filedocumented in this encounter Care Teams School Photograph Editor Relationship Specialty Start Date End Date Nivia Tinsley MD [address] [place] [address] PCP - General Family Medicine - Primary Care 08/27/19 Zheng Tapia MD [address] [place] [address] Internal Medicine - Primary Care 09/01/19 Shazia Burks MD [address] [place] [address] Neurology 09/01/19 Tony Baron OD [address] [place] [address] Warehouse Selector 09/01/19 Keira Paniagua MD [address] [place] [address] [address] [address] Cardiovascular Disease 09/06/20 Siva Perkins MD [address] [place] [address] Neurology 09/06/20 documented as of this encounter
--- OUTSIDE RECORDS SUMMARY | 2024-04-29 18:20 | XMS_ITS | Encounter Summary ---
Author Organization [facility] Address [address] [place] [address] Care Team Providers Care Lawn Technician Name Role Phone Nivia Tinsley MD Primary Care Provider Zheng Tapia MD Unavailable Shazia Burks MD Unavailable [phone] Tony Baron OD Unavailable [phone] Keira Paniagua MD Unavailable [phone] Siva Perkins MD Unavailable [phone] Reason for Visit * Reason Onset Date Comments Other 12/23/2021 Encounter Details Date Type Department Care Team (Late st Contact Info) Description 12/23/2021 Telephone [facility] Cardiology Clinic [address] [place] [address] Gianfranco lFowers MD [address] [facility] [address] [place] [address] Other Social History Tobacco Use Types Packs/Day Years Used Date Smoking Tobacco: Never Smokeless Tobacco: Never Alcohol Use Standard Drinks/Week Comments Yes 0 (1 standard drink = 0.6 oz pur e alcohol) AUDIT-C Answer Date Recorded Frequency of Alcohol [...] suspected to have Coronavirus/COVID-19? No / Unsure 12/26/2021 10:32 EDT documented as of this encounter Functional [...] No 11/15/2021 documented as of this encounter Miscellaneous Notes * Telephone Encounter - Queta Ruby RN - 12/23/2021 1601 EDT Spoke to Verena who had questions regarding ASA and Plavix dosing: Per Dr. Flowers's 12/19/21 office note: ASSESSMENT/PLAN 1. NSTEMI s/p LAD PCI 11/2021. 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 No angina - 12 months of DAPT - ASA and statin livelong - BB for at least 3 years - defer cardiac rehab b/o gait disturbance and impaired vision She is aware of above and verbalizes understanding. * Telephone Encounter - Rodrick Pascual - 12/23/2021 1452 EDT VERENA from [facility] left voicemail requesting that a nurse call her back but didn't state a reason Verena # [phone] documented in this encounter Plan of Treatment Upcoming Encounters Date Type Department Care Team (Late st Contact Info) Description 06/11/2024 12:45 EDT Office Visit [facility] Ophthalmology - [place] [address] [place], [place] [phone] Santiago Anthony MD [address] [place] [address] [address] [place] [address] 07/15/2024 10:45 EDT Office Visit [facility] Cardiology Clinic [address] [place], [place] [phone] Gianfranco Flowers MD [address] [facility] [address] [place] [address] documented as of this encounter Visit Diagnoses Not on filedocumented in this encounter Additional Health Concerns Infection Onset Date Last Indicated Resolved Time R/O COVID-19 Comment:Covid neg. 02/21/2022 02/21/2022 02/21/2022 10:07 EDT Rule-Out C. difficile 02/21/2022 02/21/20222021 14:01 EDT documented as of this encounter Care Teams Lawn Technician Relationship Specialty Start Date End Date Nivia Tinsley MD [address] [place] [phone] PCP - General Family Medicine - Primary Care 08/27/19 Zheng Tapia MD [address] [place] [address] [address] [place] [address] Internal Medicine - Primary Care 09/01/19 Shazia Burks MD [address] [place] [address] Neurology 09/01/19 Tony Baron OD [address] [place] [phone] Plant Attendant Or Assistant Operator 09/01/19 Keira Paniagua MD [address] [place] [phone] Cardiovascular Disease 09/06/20 Siva Perkins MD [address] [place] [address] Neurology 09/06/20 documented as of this encounter
--- OUTSIDE RECORDS SUMMARY | 2024-04-29 18:20 | XMS_ITS | Encounter Summary ---
Author Organization [facility] Address [address] [place] [address] Care Team Providers Care Boot Maker Name Role Phone Nivia Tinsley MD Primary Care Provider [phone] Zheng Tapia MD Unavailable Shazia Burks MD Unavailable [phone] Tony Baron OD Unavailable [phone] Keira Paniagua MD Unavailable [phone] Siva Perkins MD Unavailable [phone] Reason for Visit * Reason Onset Date Comments Medication Questions 12/20/2021 Encounter Details Date Type Department Care Team (Late st Contact Info) Description 12/20/2021 Telephone [facility] Card[facility] Clinic [address] [place] [address] Gianfranco Flowers MD [address] [facility] [address] [place] [address] Medication Questions Social History Tobacco Use Types Packs/Day Years [...] slept in a m[facility]p (including now)? No 12/26/2021 Interpersonal Safety Answer [...] encounter Miscellaneous Notes * Telephone Encounter - Wolfgang Flowers - 01/06/2022 1302 EDT See TE 12/23/21 * Telephone Encounter - Wolfgang Flowers - 12/20/2021 1354 EDT Terri from Home health called to make sure that Dr. Flowers is aware that there is an interaction with Lasix and ASA. ?if ok for pt to take lasix. Ok to leave detailed msg on HH VM documented in this encounter Plan of Treatment Upcoming Encounters Date Type Department Care Team (Late st Contact Info) Description 06/11/2024 12:45 EDT Office Visit [facility] Op[facility] [address] [place] [address] Santiago Anthony MD [address] [place] [address], [facility] [address] [place] [address] 07/15/2024 10:45 EDT Office Visit [facility] Cardiology Clinic [address] [place] [address] Gianfranco Flowers MD [address] [place] [address] [phone] documented as of this encounter Visit Diagnoses Not on filedocumented in this encounter Care Teams Boot Maker Relationship Specialty Start Date End Date Nivia Tinsley MD [address] [place] [address] PCP - General Family Medicine - Primary Care 08/27/19 Zheng Tapia MD [address] [place] [address] Internal Medicine - Primary Care 09/01/19 Shazia Burks MD [address] [place] [address] Neurology 09/01/19 Tony Baron OD [address] [place] [phone] Director Telemetry 09/01/19 Keira Paniagua MD [address] [place] [address] [address] Cardiovascular Disease 09/06/20 Siva Perkins MD [address] [facility] [address] Neurology 09/06/20 documented as of this encounter
--- OUTSIDE RECORDS SUMMARY | 2024-04-29 18:20 | XMS_ITS | Encounter Summary ---
Author Organization [facility] Address [address] [place] [address] Care Team Providers Care Motion Designer Name Role Phone Nivia Tinsley MD Primary Care Provider Zheng Tapia MD Unavailable Shazia Burks MD Unavailable [phone] Tony Baron OD Unavailable [phone] Keira Paniagua MD Unavailable [phone] Siva Perkins MD Unavailable [phone] Reason for Visit * Reason Comments Follow-up HFpEF Coronary Artery Disease Encounter Details Date Type Department Care Team (Late st Contact Info) Description 01/09/2022 10:45 EDT Office Visit [facility] [address] [place] [address] Gianfranco Flowers MD [address] [facility] [address] [place] [address] ACC/AHA stage C heart failure with preserved ejection fraction (HCC-CMS) (HCC) (Primary Dx); Coronary artery disease involving skagway coronary artery of skagway heart without angina pectoris; S/P coronary artery stent placement; Essential hypertension; Mixed hyperlipidemia; Diabetes mellitus type 2, noninsulin dependent (HCC-CMS) (HCC) Social History Tobacco Use Types Packs/Day Years [...] 10:32 EDT documented as of this encounter Last Filed Vital Signs Vital Sign Reading Time Taken Comments Blood Pressure 142/72 01/09/2022 1034 EDT Pulse 67 01/09/2022 1034 EDT Temperature - - Respiratory Rate - - Oxygen Saturation 95% 01/09/2022 1034 EDT Inhaled Oxygen Concentration - - Weight 68 kg (150 lb) 01/09/2022 1034 EDT pt ana bal wt Height 165.1 cm (5' 5) 01/09/2022 1034 EDT Body Mass Index 24.96 01/09/2022 1034 EDT documented in this encounter Functional Status [...] No 11/15/2021 documented as of this encounter Ordered Prescriptions Prescription Sig Dispensed Refills Start Date End Da te furosemide (LASIX) 20 mg tablet Take 1 Tablet by mouth as needed for up to 90 days for Other (Edema). 30 Tablet 3 01/09/2022 04/09/2022 documented in this encounter Progress Notes * Gianfranco Flowers MD - 01/09/[address] [facility] CARDIOLOGY FOLLOW-UP Date of Service: 01/09/2022 Reason for Consult: ACC/AHA stage C heart failure with preserved ejection fraction (HCC-CMS) ([facility]) [I50.30] ASSESSMENT/PLAN 1. NSTEMI s/p LAD PCI 11/2021. 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 No angina - 12 months of DAPT - ASA and statin livelong - BB for at least 3 years - if fatigue clearly due to Coreg, change to bisoprolol. - defer cardiac rehab b/o gait disturbance and impaired vision 2. HFpEF. Volume status optimized - change Lasix to PRN. 3. HTN. Controlled - continue Coreg and losartan 4. HLP. Statin increased at time of [place]. Goal LDL < 70. 5. T2DM. A1c at goal of < 7. - monitor - Rx deferred to PCP 6. H/O CVA 2019. No carotid stenosis. Residual right leg weakness and unsteadiness. No recurrent s/s. Ambulatory w/ cane. Requires help w/ transitions. Follow-up 11/2022, no testing SUBJECTIVE Concetta Sullivan, 1940 81 y.o. 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 Concetta Sullivan comes in today w/ her career development coordinator/teacher. She is ambulatory w/ a walker. She needs help w/ transitions. She denies SOB or CP. She sleeps on 1 pillow. Sleep is interrupted b/o nocturia, more sosince started on Lasix and she wants to stop it. She denies edema. Her vision is severely impaired. Her functional capacity has been impaired since her CVA - she cannot walk independently outside. She has had no new focal deficits. She feels a little fatigued. This preceded her 11/2021 hospitalization. Due to impaired vision she cannot determine if GI or bleed. Patient denies palpitations, syncope. Past Surgical History: Procedure Laterality Date ??? COLONOSCOPY 01/2007 moderate diffuse diverticuli discussed with Dr. Asnis and declines further testing ??? CORONARY ANGIOPLASTY WITH STENT PLACEMENT 11/2021 LAD PCI. 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 aspirin chewable 81 mg tablet Take 1 Tablet by mouth daily. ??? atorvastatin (LIPITOR) 40 mg tablet Take 1 Tablet by mouth at bedtime. ??? carboxymethylcellulose sodium (ARTIFICIAL TEARS, [facility],) 1 % drops Apply 2 Drops to eye as needed(dry eye). ??? carvediloL (COREG) 6.25 mg tablet Take 1 Tablet by mouth 2 times daily with breakfast and dinner. ??? cholecalciferol, Vitamin D3, 25 mcg (1,000 unit) tablet Take 1 Tablet by mouth daily. ??? clopidogreL (PLAVIX) 75 mg tablet Take 1 Tablet by mouth daily. ??? fluticasone propionate (FLONASE) 50 mcg/actuation nasal spray Instill 1 [place] into both nostrils 2 times daily. ??? furosemide (LASIX) 20 mg tablet Take 1 Tablet by mouth as needed for up to 90 days for Other (Edema). ??? [DISCONTINUED] furosemide (LASIX) 20 mg tablet Take 0.5 Tablets by mouth daily for 7 days, THEN1 Tablet daily for 90 days. ??? hydrocortisone 1 % ointment Apply to affected area TID PRN ??? levothyroxine (SYNTHROID) 100 mcg tablet Take [...] mouth daily. ? ? vit A,C & K-fweqzi-qewhlgza (OCUVITE) 1,000 unit-200 mg-60 unit-2 mg tablet [...] positives and negatives as mentioned above. OBJECTIVE Wt Readings from Last 3 Encounters: 01/09/22 68 kg (150 lb) 12/26/21 68.5 kg (151 lb) 12/19/21 68 kg (150 lb) BP Readings from Last 3 Encounters: 01/09/22 (!) 142/72 12/26/21 130/60 12/19/21 118/66 Pulse Readings from Last 3 Encounters: 01/09/22 67 12/26/21 60 12/19/21 61 Diagnostic Data Available records including laboratory and cardiac studies reviewed and discussed with patient; pertinent findings as mentioned above and as follows: Lab Results Component Value Date CREATININE 0.77 11/17/2021 CALCGFR 72 11/17/2021 BUN 16 11/17/2021 NA 135 (L) 11/17/2021 CL 104 11/17/2021 K 4.3 11/17/2021 MG 1.9 11/17/2021 ALT 35 (H) 11/15/2021 AST 35 11/15/2021 ALKPHOS 118 11/15/2021 Lab Results Component Value Date NTBNP 139 01/16/2020 TROPONINI 0.848 (HH) 11/15/2021 HGB 12.8 11/17/2021 Lab Results Component Value Date CHOL 199 11/12/2021 HDL 36 11/12/2021 LDL TNP 08/02/2020 LDLBASE 91 11/12/2021 TRIG 359 11/12/2021 Lab Results Component Value Date HGBA1C 6.0 (A) 12/26/2021 TSH 3.52 11/13/2021 NM stress test 11/2021: Moderate anterior JVM. EF 57%. Echocardiogram 11/2021: EF 58%, DD, highLAP. Normal RV. No or MR. PHYSICAL EXAMINATION GENERAL: Pleasant, seated in wheel chair, no acute distress. HEENT: Anicteric, mucous membranes moist. NECK: Supple, jugular venous pressure normal sitting upright CHEST: Nontender. LUNGS: Clear to auscultation bilaterally, no rhonchi rales or wheezes. HEART: Regular rate and rhythm, normal S1-S2, no murmurs. EXTREM: No cyanosis, trace edema, equal pulses. NEURO: Alert and oriented x3, grossly intact ORDERS/MEDICATION CHANGES No orders of the defined types were placed in this encounter. Medications Discontinued During This Visit Medication Reason ??? furosemide (LASIX) 20 mg tablet Reorder Med Orders Placed This Visit and Additions to the Medication List Medications ??? furosemide (LASIX) 20 mg tablet Sig: Take 1 Tablet by mouth as needed for up to 90 days for Other (Edema). Dispense: 30 Tablet Refill: 3 Gianfranco Flowers MD, PhD documented in this encounter Plan of Treatment Upcoming Encounters Date Type Department Care Team (Late st Contact Info) Description 06/11/2024 12:45 EDT Office Visit [facility] Ophthalmology - [address] [address] Santiago Anthony MD [address] [place] [address] [address] [place] [address] 07/15/2024 10:45 EDT Office Visit [facility] [address], [place] [address] Gianfranco Flowers MD 130 [facility] [address] [place] [address] documented as of this encounter Visit Diagnoses Diagnosis ACC/AHA stage C heart failure with preserved ejection fraction (HCC-CMS)- Primary Coronary artery disease involving skagway coronary artery of skagway heart without angina pectoris S/P coronary artery stent placement Postsurgical percutaneous transluminal coronary angioplasty status Essential hypertension Unspecified essential hypertension Mixed hyperlipidemia Diabetes mellitus type 2, noninsulin dependent ([facility]) Type II or unspecified type diabetes mellitus without mention of complication, not stated as uncontrolled documented in this encounter Discontinued Medications Medication Sig Discontinue Reason Start Date End Da te furosemide (LASIX) 20 mg tablet Take 0.5 Tablets by mouth daily for 7 days, THEN 1 Tablet daily for 90 days. Reorder 12/19/2021 01/09/2022 documented as of this encounter Care Teams Motion Designer Relationship Specialty Start Date End Date Nivia Tinsley MD [address] [place] [phone] PCP - General Family Medicine - Primary Care 08/27/19 Zheng Tapia MD [address] [place] [address] [address] [place] [address] Internal Medicine - Primary Care 09/01/19 Shazia Burks MD [address] [place] [address] Neurology 09/01/19 Tony Baron, FRANCK [address] [place] [phone] Sprinkling System Irrigator 09/01/19 Keira Paniagua MD [address] [place] [address] [phone] Cardiovascular Disease 09/06/20 Siva Perkins MD [address] [place] [phone] Neurology 09/06/20 documented as of this encounter
--- OUTSIDE RECORDS SUMMARY | 2024-04-29 18:20 | XMS_ITS | Encounter Summary ---
Author Organization [facility] Address [address] [place] [address] Care Team Providers Care Call Box Wirer Name Role Phone Nivia Tinsley MD Primary Care Provider [phone] Zheng Tapia MD Unavailable Shazia Burks MD Unavailable [phone] Tony Baron OD Unavailable [phone] Keira Paniagua MD Unavailable [phone] Siva Perkins MD Unavailable Encounter Details Date Type Department Care Team (Latest Contact Info) Description 12/26/2021 Travel Social History Tobacco Use Types Packs/Day [...] place to sleep or slept in a half-way (including now)? No 12/26/2021 Interpersonal Safety Answer [...] Yes 11/15/2021 Cognitive Status Response Date of Assess ent Because of a physical, menta l, or emotional condition, do you have serious difficulty concentrating, remembering, or making decisions? (5 years old or older) No 11/15/2021 documented as of this encounter Plan of Treatment Upcoming Encounters Date Type Department Care Team (Late st Contact Info) Description 06/11/2024 12:45 EDT Office Visit [facility] Ophthalmology - [address] [phone] Santiago Anthony MD [address] [place] [address], [facility] [address] [place] [address] 07/15/2024 10:45 EDT Office Visit [facility] [address] [place], [place] [phone] Gianfranco Flowers MD 130 [facility] [address] [place] [phone] documented as of this encounter Visit Diagnoses Not on filedocumented in this encounter Care Teams Call Box Wirer Relationship Specialty Start Date End Date Nivia Tinsley MD [address] [place] [phone] PCP - General Family Medicine - Primary Care 08/27/19 Zheng Tapia MD [address] [place] [address] [address] [place] [address] Internal Medicine - Primary Care 09/01/19 Shazia Burks MD [address] [place], [place] [address] Neurology 09/01/19 Tony Baron OD [address] [place] [phone] Upper Lining Cementer 09/01/19 Keira Paniagua MD [address] [place] [phone] Cardiovascular Disease 09/06/20 Siva Perkins MD [address] [facility] [place] [phone] Neurology 09/06/20 documented as of this encounter
--- OUTSIDE RECORDS SUMMARY | 2024-04-29 18:20 | XMS_ITS | Encounter Summary ---
Author Organization [facility] Address [address] [place] [address] Care Team Providers Care Tank Builder Supervisor Name Role Phone Nivia Tinsley MD Primary Care Provider Zheng Tapia MD Unavailable Shazia Burks MD Unavailable [phone] Tony Baron OD Unavailable [phone] Keira Paniagua MD Unavailable [phone] Siva Perkins MD Unavailable [phone] Reason for Visit * Reason Comments Annual Exam Annual wellness visi t Follow-up Medication Management Testing Pt's 2 sisters passe d last month from throat cancer, pt wonders if she should be tested somehow. Encounter Details Date Type Department Care Team (Late st Contact Info) Description 12/26/2021 11:00 EDT Office Visit [facility] [address] [place] [address] Nivia Tinsley MD [address] [place] [address] NSTEMI (non-ST elevated myocardial infarction) (HCC-CMS) (HCC) (Primary Dx); Encounter for vaccination; Diabetes mellitus type 2, noninsulin dependent (HCC-CMS) (HCC); Encounter for annual wellness exam in Medicare patient Social History Tobacco Use Types Packs/Day Years [...] Sign Reading Time Taken Comments Blood Pressure 130/60 12/26/2021 1056 EDT Pulse 60 12/26/2021 1056 EDT Temperature - - Respiratory Rate - - Oxygen Saturation 99% 12/26/2021 1056 EDT Inhaled Oxygen Concentration - - Weight 68.5 kg (151 lb) 12/26/2021 1056 EDT Height 165.1 cm (5' 5) 12/26/2021 1056 EDT Body Mass Index 25.13 12/26/2021 1056 EDT documented in this encounter Functional Status [...] End Da te zoster vaccine recombinant, PF, (SHINGRIX, PF,) IM Injection - vialIndications:Encounte r for vaccination Inject 0.5 mL into the muscle once for 1 dose. Repeat in 2 months 1 Each 1 12/26/2021 04/10/2022 nitroglycerin (NITROSTAT) 0.4 mg SL tabletIndications:NSTEMI (non-ST elevated myocardial infarction) (HCC-CMS) Place 1 Tablet under the tongue every 5 minutes as needed for Chest Pain. 30 Tablet 12/26/2021 03/14/2022 documented in this encounter Progress Notes * Nivia Tinsley MD - 12/26/2021 1100 EDT Images from the original note were not included. [facility] Primary Care Medicare Annual Wellness Visit Patient is here for their annual wellness visit, for Medicare beneficiaries as part of Medicare Part B, and intended to promote health, detect disease, and address overall health needs related to theMedicare patient. The patient is a 81 y.o. female retiree. The patient is and lives alone. Patient questionnaire completed and reviewed: Yes. Advance Directives: has NO advanced directive - add't info requested. Referral to SW: no. Updated list of treating providers: Cardiology, Ophthalmology and physical therapy Written Health Plan in patient instructions: Yes. Additional History: Recent hospitalization for NSTEMI in 11/2021. She was put on Lasix, but she doesnot want to take b/c then she would have to go to the bathroom frequently, no SOB or leg swelling. She also had a HBA1c of 6.9 in 11/13/21, and she is not on meds, but this was in the setting of being hospitalized. She does not want to take DM meds. The patient's allergies, past medical history, family history and social history were reviewed and updated in the EMR on 12/26/2021. Chart reviewed for current providers and suppliers regularly involved in the patient's care. Patient's primary caregiver: self or private caregiver, Salome Patient Active Problem List Diagnosis ??? Cerebral atherosclerosis ??? Gastro-esophageal reflux disease without esophagitis ??? Hyperlipidemia ??? Hypertension ??? Hypothyroidism, unspecified ??? Shuffling gait ??? Vitamin D deficiency ??? Basilar artery stenosis/occlusion with infarction (HCC) ??? Decreased visual acuity ??? NSTEMI (non-ST elevated myocardial infarction) (HCC-CMS) (HCC) ??? ARMD (age related macular degeneration) ??? ARMD (age related macular degeneration) ??? S/P coronary artery stent placement ??? ACC/AHA stage C heart failure with preserved ejection fraction (HCC-CMS) ([facility]) ??? Diabetes mellitus type 2, noninsulin dependent (HCC-CMS) ([facility]) ??? Chronic total occlusion of coronary artery ??? Dependence on wheelchair ??? Mixed incontinence ??? Muscle weakness (generalized) ??? Prediabetes ??? Pure hypercholesterolemia, unspecified ??? Unspecified visual loss Current Outpatient Medications: ??? aspirin chewable 81 mg tablet, Take 1 Tablet by mouth daily., Disp: 30 Tablet, Rfl: 11 ??? atorvastatin (LIPITOR) 40 mg tablet, Take 1 Tablet by mouth at bedtime., Disp: 30 Tablet, Rfl: 11 ??? carboxymethylcellulose sodium (ARTIFICIAL TEARS, CMC,) 1 % drops, Apply 2 Drops to eye as needed (dry eye)., Disp: 10 mL, Rfl: 11 ??? carvediloL (COREG) 6.25 mg tablet, Take 1 Tablet by mouth 2 times daily with breakfast and dinner., Disp: 60 Tablet, Rfl: 11 ??? cholecalciferol, Vitamin D3, 25 mcg (1,000 unit) tablet, Take 1 Tablet by mouth daily., Disp: 30 Tablet, Rfl: 11 ??? clopidogreL (PLAVIX) 75 mg tablet, Take 1 Tablet by mouth daily., Disp: 30 Tablet, Rfl: 4 ??? fluticasone propionate (FLONASE) 50 mcg/actuation nasal spray, Instill 1 Eidson into both nostrils 2 times daily., Disp: 16 g, Rfl: 11 ??? furosemide (LASIX) 20 mg tablet, Take 0.5 Tablets by mouth daily for 7 days, THEN 1 Tablet daily for 90 days. (Patient not taking: Reported on 12/26/2021), Disp: 94 Tablet, Rfl: 3 ??? hydrocortisone 1 % ointment, Apply to affected area TID PRN, Disp: 56 g, Rfl: 1 ??? levothyroxine (SYNTHROID) 100 mcg tablet, Take 1 Tablet by mouth daily., Disp: 30 Tablet, Rfl: 11 ??? losartan (COZAAR) 100 mg tablet, 1 tab(s) orally once a day, Disp: 30 Tablet, Rfl: 11 ??? medical supply, miscellaneous ([employer] ACCESSORY MISC), with seat, basket under the seat and breaks as directed dx: Abnormal gait and legally blind daily, Disp: , Rfl: ??? nitroglycerin (NITROSTAT) 0.4 mg SL tablet, Place 1 Tablet under the tongue every 5 minutes as needed for Chest Pain., Disp: 30 Tablet, Rfl: 0 ??? pantoprazole (PROTONIX) 40 mg tablet, Take 1 Tablet by mouth daily., Disp: 30 Tablet, Rfl: 11 ? ? vit A,C & J-tsjvud-funqqngh (OCUVITE) 1,000 unit-200 mg-60 unit-2 mg tablet, Take 1 tab by mouth daily, Disp: 30 Tablet, Rfl: 11 ??? zoster vaccine recombinant, PF, (SHINGRIX, PF,) IM Injection - vial, Inject 0.5 mL into the muscle once for 1 dose. Repeat in 2 months, Disp: 1 Each, Rfl: 1 Taking adequate Multivitamin, Calcium & Vitamin D supplements? Yes. Immunization History Administered Date(s) Administered ??? Covid-19 mRNA Vaccine ([employer] COVID-19) PF 0.3 ml IM (12 yrs+) 11/10/2020, 12/27/2020, 07/13/2021 ??? Influenza Vaccine High Dose (FLUZONE HIGH DOSE) PF 0.7 ml IM (65 yrs+) 07/13/2017, 08/12/2018, 08/02/2020, 07/14/2021 ??? Influenza Vaccine Pediatric Quad (AFLURIA PEDIATRIC) PF 0.25 ml IM (6-35 mos) 07/10/2016 ??? Pneumococcal Conj Vacc PCV13 (PREVNAR-13) IM 06/01/2017 ? ? Pneumococcal Polysaccharide (PPSV23) Vaccine (PNEUMOVAX-23) =>2YO SQ/IM 03/06/2016 ? ? Tdap Vaccine =>7YO IM 09/03/2017 Is your memory relatively stable in the last year? Yes. Diet: healthy diet in general. Appetite: stable. Level of activity: active: daily. Functional Evaluation completed Vision: blurred vision and going to the retina specialist, legally bilnd ADLs: impaired: self care, food preparation and transportation. Cognitive: grossly intact memory based on in-office exam and [place] Mini Cog score: 5/5 Fall Risk: FALLS RISK REVIEW 12/26/2021 Get Up and Go Test Multiple attempts, but successful Patient or Family Have Concerns Yes Patient Uses an Assistive Device Yes Assistive Device Used wheelchair Assistive Device Used gait belt used as well Previous Fall Within the Past 12 Months No Diuretic on Active Medication List Yes Anti-Hypertensive on Active Medication List Yes Considered at High Risk for Falls Yes Fall Risk Screening Completed Yes Some recent data might be hidden Going to PT for balance Home Safety: smoke detectors, CO detectors, hand rails, no trip hazards and adequate lighting ROS: Review of Systems Respiratory: Negative for shortness of breath. Cardiovascular: Negative for chest pain and leg swelling. I reviewed the patient's functional ability and [...] and addressed these issues. Examination: Vitals: BP 130/60 (BP Cuff Location: Right arm, BP Patient Position: Sitting, BP Cuff Sizes: Adult, regular) Pulse 60 Ht 165.1 cm (65) Wt 68.5 kg (151 lb) SpO2 99% BMI 25.13 kg/m?? Body mass indexis 25.13 kg/m??. Physical Exam Vitals and nursing note reviewed. Constitutional: Appearance: Normal appearance. Pulmonary: Effort: Pulmonary effort is normal. Musculoskeletal: Cervical back: Neck supple. Feet: Right foot: Protective Sensation: 10 sites tested. 10 sites sensed. Skin integrity: No ulcer. Left foot: Protective Sensation: 10 sites tested. 10 sites sensed. Skin integrity: No ulcer. Neurological: General: No focal deficit present. Mental [...] addressed as appropriate. Assessment & Plan: 1. NSTEMI (non-ST elevated myocardial infarction) ([facility]-CMS) ([facility]) nitroglycerin (NITROSTAT) 0.4 mg SL tablet 2. Encounter for vaccination zoster vaccine recombinant, PF, (SHINGRIX, PF,) IM Injection - vial 3. Diabetes mellitus type 2, noninsulin dependent (HCC-CMS) ([facility]) AMB CONS/FOLLOW UP COMMUNITY HEALTH TEAM POCT HEMOGLOBIN A1C CANCELED: HEMOGLOBIN A1C 4. Encounter for annual wellness exam in Medicare patient Diet and exercise were reviewed. The patient has received their preventive health prompt and preventive health plan with registration materials that is personalized for age, sex, and chronic conditions. Medical or community referrals made as needed for fall prevention, Nutrition, physical activity programs, tobacco-use cessation, weight loss, and cognition issues as needed. Additional Plans: see above. Return if symptoms worsen or fail to improve. Nivia Tinsley MD * Kristal Major MA - 12/26/2021 1100 EDT Site collected L [facility] Reason: See assessment code. Ordering Provider Dustin Tinsley MD. Patient tolerated procedure well. documented in this encounter Plan of Treatment Upcoming Encounters Date Type Department Care Team (Late st Contact Info) Description 06/11/2024 12:45 EDT Office Visit [facility] Ophthalmology - [address] [id number] Santiago Anthony MD [address] [place] [address], [facility] [address] [place] [address] 07/15/2024 10:45 EDT Office Visit [facility] [address] [place] [address] Gianfranco Flowers MD [address] [facility] [address] [place] [address] documented as of this encounter Procedures Procedure Name Priority Date/Time Associated Diagnosis Comments POCT HEMOGLOBIN A1C Routine 12/26/2021 Diabetes mellitus type 2, noninsulin dependent (HCC-CMS) ([facility]) documented in this encounter Results * (ABNORMAL) POCT HEMOGLOBIN A1C (12/26/2021) Hemoglobin A1c, POC 6.0(A) 5.7 % [facility] POINT OF CARE Blood CAPILLARY BLOOD / Unknown 12/26/2021 Nivia Tinsley MD POINT OF CARE TEST ORDERABLES [facility] POINT OF CARE documented in this encounter Visit Diagnoses Diagnosis NSTEMI (non-ST elevated myocardial infarction) ([facility])- Primary Acute myocardial infarction, subendocardial infarction, episode of care unspecified Encounter for vaccination Diabetes mellitus type 2, noninsulin dependent ([facility]) Type II or unspecified type diabetes mellitus without mention of complication, not stated as uncontrolled Encounter for annual wellness exam in Medicare patient documented in this encounter Care Teams Tank Builder Supervisor Relationship Specialty Start Date End Date Nivia Tinsley MD [address] [place] [address] PCP - General Family Medicine - Primary Care 08/27/19 Zheng Tapia MD [address] [place] [address] [place] [address] Internal Medicine - Primary Care 09/01/19 Shazia Burks MD [address] [place] [address] Neurology 09/01/19 Tony Baron OD [address] [place] [address] Lab Rep 09/01/19 Keira Panaigua MD [address] [place] [address] [address] [place] [address] Cardiovascular Disease 09/06/20 Siva Perkins MD [address] [id number] Neurology 09/06/20 documented as of this encounter
--- OUTSIDE RECORDS SUMMARY | 2024-04-29 18:20 | XMS_ITS | Encounter Summary ---
Author Organization [facility] Address [address] [place] [address] Care Team Providers Care Biomedical Instrument Technician Name Role Phone Nivia Tinsley MD Primary Care Provider Zheng Tapia MD Unavailable Shazia Burks MD Unavailable [phone] Tony Baron OD Unavailable [phone] Keira Paniagua MD Unavailable [phone] Siva Perkins MD Unavailable [phone] Reason for Visit * Reason Comments Nutrition Counseling Encounter Details Date Type Department Care Team (Late st Contact Info) Description 12/23/2021 15:[address] [facility] Family Medicine [facility] [address] [place] [address] [place], [place] [id number] Dietary counseling and surveillance (Primary Dx) Social [...] care, and heating? Not hard at all 12/08/2020 PHQ-2 Answer Date Recorded PHQ-2 SUBTOTAL 4 12/20/2020 Hunger Vital Sign Answer Date Recorded Within the past 12 months, y ou worried that your food would run out before you got the money to buy more. Never true 12/09/19 21 Within the past 12 months, t he food you bought just didn't last and you didn't have money to get more. Never true 12/08/2020 PRAPARE - Transportation Answer Date Re corded In the past 12 months, has l ack of transportation kept you from medical appointments or from getting medications? No 11/29 In the past 12 months, has l ack of transportation kept you from meetings, work, or from getting things needed for daily living? No 12/08/2020 Interpersonal Safety Answer Date Record ed Physically Hurt Never 05/02/2020 Verbally Threaten Not on file 05/02/2020 Education Answer Date Recorded What is the [...] of this encounter Progress Notes * La Lou - 12/23/2021 1500 EDT The concept of ???Telemedicine?? has been described to the patient.? Patient has been informed of the anticipated benefits and possible risks.? Patient understands the information provided regardingtelemedicine, has had the opportunity to ask questions about this information, and all questions have been answered to patient???s satisfaction. Patient consents for the use of telemedicine in his/her medical care and authorizes the transmission of any relevant medical information to providers and their staff involved in patient???s medical or mental health care. Patient understands that they maybe responsible for copays, deductible or coinsurance for this service. Verbal Consent Obtained: yes S: I have one question - do I really have diabetes? O: 81 year old woman with new type 2 DM, legally blind Ht: 5' 5 Wt: 150# BMI: 25 A1c: 6.9 Type of interaction: televideo Time spent with patient: 50 minutes A: Met with Lexi and and MAMIE Chacon nurse, for Lexi's initial nutrition/DM appointment. Lexi uses a wheel chair but her goal is to get stronger and be able to walk again. She is legally blind. Shelives alone and is able to fix her meals and care for herself. She has raisin bran or cheerios with1/2 banana and coffee with 1 tsp sugar for breakfast. Her main meal is mid-day and could be beef stew or chili or homemade soup or a meals on wheels meal. She has leftovers or a sandwich for dinner. She eats vegetables with lunch and dinner, fruits between meals. She normally has a very small portion of ice cream in the evening. We discussed the basics of diabetes: diet, carb counting, exercise, f luid needs, medications, monitoring. We discussed the pros and cons of monitoring her blood sugars at home. I suggested she have a meter and monitor occasionally after meals to track her progress. She is open to the idea and will talk with Dr. Tinsley next week at her appointment. We discussed and answered her questions. P: Lexi will discuss monitoring her blood sugars with Dr. Tinsley. She will begin paying attentionto her carb intake with a goal of under 45 grams per meal. She'll work on regular activity - 10 minutes several times per day. She has my phone number and will call with any questions. This visit was conducted by video. I spent a total of 50 minutes in discussion with the patient as described in the progress note. documented in this encounter Plan of Treatment Upcoming Encounters Date Type Department Care Team (Late st Contact Info) Description 06/11/2024 12:45 EDT Office Visit [facility] Ophthalmology - [place] [address] [place], [place] [id number] Santiago Anthony MD [address] [place] [address] [address] [place] [address] 07/15/2024 10:45 EDT Office Visit [facility] [address] [place], [place] [id number] Gianfranco Flowers MD [address] [facility] [address] [place] [address] documented as of this encounter Visit Diagnoses Diagnosis Dietary counseling and surveillance- Primary Dietary surveillance and counseling documented in this encounter Care Teams Biomedical Instrument Technician Relationship Specialty Start Date End Date Nivia Tinsley MD [address] [place] [address] PCP - General Family Medicine - Primary Care 08/27/19 Zheng Tapia MD [address] [place] [address] [address] [place] [address] Internal Medicine - Primary Care 09/01/19 Shazia Burks MD [address] [place], [place] [address] Neurology 09/01/19 Tony Baron OD [address] [place] [phone] Hospice Rn 09/01/19 Keira Paniagua MD [address] [place] [address] Cardiovascular Disease 09/06/20 Siva Perkins MD [address] [facility] [place] [place] [address] Neurology 09/06/20 documented as of this encounter
--- OUTSIDE RECORDS SUMMARY | 2024-04-29 18:21 | XMS_ITS | Encounter Summary ---
Author Organization [facility] Address [address] [place] [address] Care Team Providers Care Flat Screen Worker Name Role Phone Nivia Tinsley MD Primary Care Provider [phone] Zheng Tapia MD Unavailable Shazia Burks MD Unavailable [phone] Tony Baron OD Unavailable [phone] Keira Paniagua MD Unavailable [phone] Siva Perkins MD Unavailable [phone] Reason for Visit * Reason Comments New Patient Visit NSTEMI * Consult (See Order Priority) - Order Cancelled Specialty Diagnoses / Procedures Referred By Lesa alves Referred To Contact Cardiology Diagnoses NSTEMI (non-ST elevated myocardial infarction) ([facility]) Nivia Tinsley MD [address] [place] [address] [facility] [address] [place] [id number] Referral ID Status Reason Start Date Expiration Date Visits Requested Visits Authorized [id number] Order Cancelled Specialty Services Required 12/06/2021 1 1 Encounter Details Date Type Department Care Team (Late st Contact Info) Description 12/19/2021 10:45 EDT Office Visit [facility] [address] [place] [address] [place] [address] Gianfranco Flowers MD 130 [facility] [address] [place] [address] S/P coronary artery stent placement (Primary Dx); ACC/AHA stage C heart failure with preserved ejection fraction (HCC-CMS) ([facility]); Coronary artery disease involving kasaan coronary artery of kasaan heart without angina pectoris; Essential hypertension; Mixed hyperlipidemia; Diabetes mellitus type 2, noninsulin dependent (HCC-CMS) ([facility]); Chronic total occlusion of coronary artery Social History Tobacco Use Types Packs/Day Years [...] Sign Reading Time Taken Comments Blood Pressure 118/66 12/19/2021 1046 EDT Pulse 61 12/19/2021 1046 EDT Temperature - - Respiratory Rate - - Oxygen Saturation 96% 12/19/2021 1046 EDT Inhaled Oxygen Concentration - - Weight 68 kg (150 lb) 12/19/2021 1046 EDT Height 165.1 cm (5' 5) 12/19/2021 1046 EDT Body Mass Index 24.96 12/19/2021 1046 EDT documented in this encounter Functional Status [...] THEN 1 Tablet daily for 90 days. 94 Tablet 3 12/19/2021 01/09/2022 documented in this encounter Progress Notes * Gianfranco Flowers MD - 12/19/2021 1045 EDT [facility] CARDIOLOGY CONSULT Date of Service: 12/19/2021 Reason for Consult: S/P coronary artery stent placement [Z95.5] Referring Provider: Nivia Tinsley Primary Care Provider: Nivia Tinsley ASSESSMENT/PLAN 1. NSTEMI s/p LAD PCI 11/2021. 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 No angina - 12 months of DAPT - ASA and statin livelong - BB for at least 3 years - defer cardiac rehab b/o gait disturbance and impaired vision 2. HFpEF. Volume up. - trial w/ Lasix. 3. HTN. Controlled - continue Coreg and losartan 4. HLP. Statin increased at time of [place]. Goal LDL < 70. 5. T2DM. A1c at goal of < 7. - monitor - Rx deferred to PCP 6. H/O CVA 2019. No carotid stenosis. Residual right leg weakness and unsteadiness. No recurrent s/s. Ambulatory w/ cane. Requires help w/ transitions. Follow-up 4 weeks; patient advised to call back in 1 week to decide on Lasix dosing SUBJECTIVE Concetta Sullivan, 1940 81 y.o. 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 Concetta Sullivan comes in today w/ her care manager. She is ambulatory w/ a walker. She needs help w/ transitions She denies SOB or CP. She cannot ly flat b/o SOB; she sleeps on 1 pillow. Sleep is interrupted b/o nocturia. She denies edema. Her vision is severely impaired hence unable to detect GI or bleeding. Her functional capacity has been impaired since her CVA - she cannot walk independently outside. She has had no new focal deficits. Patient denies palpitations, syncope, bleeding, GI or symptoms. Past Surgical History: Procedure Laterality Date ??? COLONOSCOPY 01/2007 moderate diffuse diverticuli discussed with Dr. Tapia and declines further testing ??? CORONARY ANGIOPLASTY WITH STENT PLACEMENT 11/2021 LAD PCI. 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 ??? hydrocortisone 1 % ointment Apply to affected area TID PRN ??? levothyroxine (SYNTHROID) 100 mcg tablet Take 1 Tablet by mouth daily. ??? losartan (COZAAR) 100 mg tablet 1 tab(s) orally once a day ??? medical supply, miscellaneous (WALKER WHEELS ACCESSORY MISC) with seat, basket under the seat and breaks as directed dx: Abnormal gait and legally blind daily ??? pantoprazole (PROTONIX) 40 mg tablet Take 1 Tablet by mouth daily. ? ? vit A,C & O-fvhhde-gcbmrqqv (OCUVITE) 1,000 unit-200 mg-60 unit-2 mg tablet Take 1 tab by mouth daily Allergies: Adhesive tape-silicones, Bupivacaine, Enalapril, Other - see comments, Silicone, and Simvastatin Family History: Reviewed; noncontributory Social History: Nonsmoker. Rare alcohol. Review of Systems: Performed; pertinent positives and negatives as mentioned above. OBJECTIVE Wt Readings from Last 3 Encounters: 12/19/21 68 kg (150 lb) 11/17/21 70.6 kg (155 lb 11.2 oz) 11/14/21 69.9 kg (154 lb) BP Readings from Last 3 Encounters: 12/19/21 118/66 11/17/21 (!) 145/67 11/15/21 (!) 167/77 Pulse Readings from Last 3 Encounters: 12/19/21 61 05/23/21 64 08/02/20 74 Diagnostic Data Available records including laboratory and [...] 11/12/2021 Lab Results Component Value Date HGBA1C 6.9 (H) 11/13/2021 TSH 3.52 11/13/2021 NM stress test 11/2021: Moderate anterior JVM. EF 57%. Echocardiogram 11/2021: EF 58%, DD, highLAP. Normal RV. No or MR. PHYSICAL EXAMINATION GENERAL: Pleasant, seated in wheel chairno acute distress. HEENT: Anicteric, mucous membranes moist. NECK: Supple, jugular venous pressure 2cm above the clavicle, no bruits. CHEST: Nontender. LUNGS: Clear to auscultation bilaterally, no rhonchi rales or wheezes. HEART: Regular rate and rhythm, normal S1-S2, no murmurs. ABDOMEN: Soft, nontender, nondistended, bowel sounds present, no bruits. EXTREM: No cyanosis, mild edema, equal pulses. SKIN: Warm and dry, no rashes. MSK: Requires assistance to transition from chair to exam table NEURO: Alert and oriented x3, grossly intact ORDERS/MEDICATION CHANGES No orders of the defined types were placed in this encounter. There are no discontinued medications. Med Orders Placed This Visit and Additions to the Medication List Medications ??? furosemide (LASIX) 20 mg tablet Sig: Take 0.5 Tablets by mouth daily for 7 days, THEN 1 Tablet daily for 90 days. Dispense: 94 Tablet Refill: 3 Gianfranco Flowers MD, PhD documented in this encounter Plan of Treatment Upcoming Encounters Date Type Department Care Team (Late st Contact Info) Description 06/11/2024 12:45 EDT Office Visit [facility] Ophthalmology - [place] [address] [place] [address] Santiago Anthony MD 111 [facility] 5 [place] [address] 07/15/2024 10:45 EDT Office Visit [facility] [address] [place], [place] [id number] Gianfranco Flowers MD 130 [facility] [address] [place] [phone] documented as of this encounter Visit Diagnoses Diagnosis S/P coronary artery stent placement- Primary Postsurgical percutaneous transluminal coronary angioplasty status ACC/AHA stage C heart failure with preserved ejection fraction (HCC-CMS) Coronary artery disease involving kasaan coronary artery of kasaan heart without angina pectoris Essential hypertension Unspecified essential hypertension Mixed hyperlipidemia Diabetes mellitus type 2, noninsulin dependent (HCC-CMS) Type II or unspecified type diabetes mellitus without mention of complication, not stated as uncontrolled Chronic total occlusion of coronary artery documented in this encounter Care Teams Flat Screen Worker Relationship Specialty Start Date End Date Nivia Tinsley MD [address] [place] [address] PCP - General Family Medicine - Primary Care 08/27/19 Zheng Tapia MD [address] [place] [address] [address] [place] [address] Internal Medicine - Primary Care 09/01/19 Shazia Burks MD [address] [place], [place] [address] Neurology 09/01/19 Tony Baron OD [address] [place] [address] Sales Representative [facility] 09/01/19 Keira Paniagua MD [address] [place] [address] Cardiovascular Disease 09/06/20 Siva Perkins MD [address] [facility] [place] [address] Neurology 09/06/20 documented as of this encounter
--- OUTSIDE RECORDS SUMMARY | 2024-04-29 18:21 | XMS_ITS | Encounter Summary ---
Author Organization [facility] Address [address] [place] [address] Care Team Providers Care Civil Process Server Name Role Phone Nivia Tinsley MD Primary Care Provider Zheng Tapia MD Unavailable Shazia Burks MD Unavailable [phone] Tony Baron OD Unavailable [phone] Keira Paniagua MD Unavailable [phone] Siva Perkins MD Unavailable [phone] Reason for Visit * Reason Onset Date Comments Medication Management 12/20/2021 Encounter Details Date Type Department Care Team (Late st Contact Info) Description 12/20/2021 Telephone [facility] [address] [place], [place] [phone] Nivia Tinsley MD [address] [place] [address] Medication Management Social History Tobacco Use Types [...] in a care home (including now)? No 12/26/2021 Interpersonal Safety [...] Telephone Encounter - Fay Dotson RN - 12/27/2021 0936 EDT Patient spoke with Terri and she has communicated with Marlen and is up to date on situation * Telephone Encounter - Avis Mckeon - 12/23/2021 1100 EDT Terri from returning your call, - not secure, do not leave detailed message. * Telephone Encounter - Fay Dotson RN - 12/21/2021 1315 EDT Nurse spoke with Marlen with [facility] to give her the updates. They have a call out to cardiology at this time about medications. Ok for patient to utilize both hydrocortisone and flonase. * Telephone Encounter - Nivia Tinsley MD - 12/20/2021 1540 EDT I think that the cardiology is managing ASA,plavix, and Lasix. They should contact cardiology for those meds. The last interaction (Hydrocortisone 1% ointment and Flonase-Duplicate Therapy-) is nothing to worry about. * Telephone Encounter - Kristal Major MA - 12/20/2021 1337 EDT Terri calling to inform Dustin Tinsley MD of following: Cardiology just prescribed Lasix 20mg 1/2 tab for 7 days, full tab thereafter Interactions with current medication: Aspirin Asprin and Plavix-Duplicate Therapy Hydrocortisone 1% ointment and Flonase-Duplicate Therapy-unsure if I am collecting the correct information to forward . Terri [phone] documented in this encounter Plan of Treatment Upcoming Encounters Date Type Department Care Team (Late st Contact Info) Description 06/11/2024 12:45 EDT Office Visit [facility] Ophthalmology - [address] [address] Santiago Anthony MD [address] [place] [address], [facility] [address] [place] [address] 07/15/2024 10:45 EDT Office Visit [facility] [address] [place] [address] Gianfranco Flowers MD 130 [facility] [address] [place] [address] documented as of this encounter Visit Diagnoses Not on filedocumented in this encounter Care Teams Civil Process Server Relationship Specialty Start Date End Date Nivia Tinsley MD [address] [place] [id number] PCP - General Family Medicine - Primary Care 08/27/19 Zheng Tapia MD [address] [place] [address] [address] [place] [phone] Internal Medicine - Primary Care 09/01/19 Shazia Burks MD [address] [place] [address] Neurology 09/01/19 Tony Baron OD [address] [place] [address] Information Security Manager 09/01/19 Keira Paniagua MD [address] [place] [address] [address] [place] [phone] Cardiovascular Disease 09/06/20 Siva Perkins MD [address] [facility] [place] [place] [address] Neurology 09/06/20 documented as of this encounter
--- OUTSIDE RECORDS SUMMARY | 2024-04-29 18:21 | XMS_ITS | Encounter Summary ---
Author Organization [facility] Address [address] [place] [address] Care Team Providers Care Tractor Trailer Driver Name Role Phone Nivia Tinsley MD Primary Care Provider [phone] Zheng Tapia MD Unavailable Shazia Burks MD Unavailable [phone] Tony Baron OD Unavailable [phone] Keira Paniagua MD Unavailable [phone] Siva Perkins MD Unavailable [phone] Encounter Details Date Type Department Care Team (Late st Contact Info) Description 12/05/2021 Orders Only [facility] Integrative Family Medicine [address] [address] [place] Type 2 diabetes mellitus without complication, without long-term current use of insulin (HCC-CMS) (HCC) (Primary Dx) Social History Tobacco Use Types [...] Exposure Response Date Recorded In the last month, have you been in contact with someone who was confirmed or suspected to have Coronavirus / COVID-19? Unable to assess 11/12/2021 2:58 EST documented as of this encounter Functional Status [...] Info) Description 06/11/2024 12:45 EDT Office Visit [facility] Ophthalmology - [place] [address] [place] [address] Santiago Anthony MD 111 [facility] 5 [place] [address] 07/15/2024 10:45 EDT Office Visit [facility] Cardiology Clinic [address] [place], [place] [phone] Gianfranco Flowers MD 130 [facility] [address] [place] [address] documented as of this encounter Visit Diagnoses Diagnosis Type 2 diabetes mellitus without complication, without long-term current use of insulin ([facility] Primary documented in this encounter Care Teams Tractor Trailer Driver Relationship Specialty Start Date End Date Nivia Tinsley MD [address] [place] [address] PCP - General Family Medicine - Primary Care 08/27/19 Zheng Tapia MD [address] [place] [address] [address] [place] [address] Internal Medicine - Primary Care 09/01/19 Shazia Burks MD [address] [place] [address] Neurology 09/01/19 Tony Baron OD [address] [place] [phone] Administrative Nursing Supervisor 09/01/19 Keira Paniagua MD [address] [place] [phone] Cardiovascular Disease 09/06/20 Siva Perkins MD [address] [facility] [place] [address] Neurology 09/06/20 documented as of this encounter
--- OUTSIDE RECORDS SUMMARY | 2024-04-29 18:21 | XMS_ITS | Encounter Summary ---
Author Organization [facility] Address [address] [place] [address] Care Team Providers Care Casting Room Helper Name Role Phone Nivia Tinsley MD Primary Care Provider Zheng Tapia MD Unavailable Shazia Burks MD Unavailable [phone] Tony Baron OD Unavailable [phone] Keira Paniagua MD Unavailable [phone] Siva Perkins MD Unavailable [phone] Reason for Visit * Reason Onset Date Comments Pharmacy 12/05/2021 Encounter Details Date Type Department Care Team (Late st Contact Info) Description 12/05/2021 Telephone [facility] [address] [place], [place] [phone] Nivia Tinsley MD [address] [place] [address] Pharmacy Social History Tobacco Use Types Packs/Day Years [...] slept in a long-term (including now)? No 12/26/2021 Interpersonal Safety Answer [...] Date End Da te vit A,C & Y-zspcfj-rwfbngnl (OCUVITE) 1,000 unit-200 mg-60 unit-2 mg tablet Take 1 tab by mouth daily 30 Tablet 12/06/2021 11/16/2022 pantoprazole (PROTONIX) 40 mg tablet Take 1 Tablet by mouth daily. 30 Tablet 12/06/2021 04/10/2022 losartan (COZAAR) 100 mg tabletIndications:Essent ial hypertension 1 tab(s) orally once a day 30 Tablet 12/06/2021 12/01/2022 levothyroxine (SYNTHROID) 100 mcg tabletIndications:Other specified hypothyroidism Take 1 Tablet by mouth daily. 30 Tablet 11 12/06/2021 11/22/2022 clopidogreL (PLAVIX) 75 mg tablet Take 1 Tablet by mouth daily. 30 Tablet 4 12/06/2021 05/25/2022 cholecalciferol, Vitamin D3, 25 mcg (1,000 unit) tabletIndications:Vitami n D deficiency Take 1 Tablet by mouth daily. 30 Tablet 11 12/06/2021 02/21/2022 carvediloL (COREG) 6.25 mg tablet Take 1 Tablet by mouth 2 times daily with breakfast and dinner. 60 Tablet 11 12/06/2021 11/13/2022 atorvastatin (LIPITOR) 40 mg tablet Take 1 Tablet by mouth at bedtime. 30 Tablet 11 12/06/2021 12/01/2022 aspirin chewable 81 mg tablet Take 1 Tablet by mouth daily. 30 Tablet 11 12/06/2021 10/30/2022 documented in this encounter Miscellaneous Notes * Telephone Encounter - Fay Dotson RN - 12/06/2021 1356 EST Nurse spoke with patient's daughter Melani and patient is almost feeling 100% following NSTEMI and hospitalization. Completed a medication reconciliation during call. They are requesting scripts be re-sent to [facility] in [place] to initiate meds on time. Scripts have been reconciled and sent to preferred pharmacy for bubble packs. Nurse has also faxed over most current med list to meds on time. They did not want to set up a separate appointment at this time as they have AWV coming up on 12/26.A1C 6.9- Would like to discuss this at upcoming visit. Per discharge paperwork, patient should be taking clopidogrel 75 mg daily for 6- 12 months uninterrupted plus aspirin 81 mg daily. Nurse has sent in 30 days with 4 refills which will equal a total of 6 months duration of this medication. * Telephone Encounter - Avis Mckeon - 12/06/2021 1200 EST Pt daughter called you back, Please call when you're available. * Telephone Encounter - Nivia Tinsley MD - 12/06/2021 0958 EST Signed referral, yes TCM would be good. * Telephone Encounter - Fay Dotson RN - 12/06/2021 0920 EST Nurse spoke with [facility] as discharge paperwork had specified a f/u with [facility] cardiology aswell as cardiac rehab. They had no active referrals for this patient. Patient was discharged from [facility] on 11/17. OK to send in referral for [facility] cardiology? I don't know if it is too late for cardiac rehab? But if not I can send one for this as well. Looks like a TCM was not done with this patient. I will do a med rec when I hear back from patient's daughter. She has AWV coming up on 12/26 * Telephone Encounter - Avis Mckeon - 12/05/2021 1632 EST Pt daughter calling - Pt was at [facility] for a few days then transferred to [facility] for a day or so. (NSTEMI (non-ST elevated myocardial infarction) (HCC-CMS) (HCC) Was given some new medications there and was told that they would need to be transferred to us. I asked if she had a follow up with a computer field technician and she didn't know - So the daughter is trying to get meds bubble packed and they need a current med list, however, She doesn't think the new meds will be on that list. Daughter has the meds listed. documented in this encounter Plan of Treatment Upcoming Encounters Date Type Department Care Team (Late st Contact Info) Description 06/11/2024 12:45 EDT Office Visit [facility] Ophthalmology - [place] [address] [place] [address] Santiago Anthony MD [address] [place] [address], [address] [place] [address] 07/15/2024 10:45 EDT Office Visit [facility] [address] [place], [place] [address] Gianfranco Flowers MD 130 [facility] [address] [place] [address] documented as of this encounter Visit Diagnoses Diagnosis NSTEMI (non-ST elevated myocardial infarction) ([facility])- Primary Acute myocardial infarction, subendocardial infarction, episode of care unspecified Vitamin D deficiency Unspecified vitamin D deficiency Other specified hypothyroidism Essential hypertension Unspecified essential hypertension documented in this encounter Discontinued Medications Medication Sig Discontinue Reason Start Date End Da te vit A,C & V-leyxbu-lpcrwqpw (OCUVITE) 1,000 unit-200 mg-60 unit-2 mg tablet Take 1 tab by mouth daily Reorder 10/21/2021 12/06/2021 losartan (COZAAR) 100 mg tabletIndications:Essenti al hypertension 1 tab(s) orally once a day Reorder 10/21/2021 12/06/2021 levothyroxine (SYNTHROID) 100 mcg tabletIndications:Other specified hypothyroidism Take 1 Tablet by mouth daily. Reorder 10/21/2021 12/06/2021 cholecalciferol, Vitamin D3, 25 mcg (1,000 unit) tabletIndications:Vitamin D deficiency Take 1 Tablet by mouth daily. Reorder 10/21/2021 12/06/2021 aspirin chewable 81 mg tablet Take 1 Tablet by mouth daily. Reorder 10/21/2021 12/06/2021 atorvastatin (LIPITOR) 40 mg tablet Take 1 Tablet by mouth at bedtime. Reorder 11/16/2021 12/06/2021 clopidogreL (PLAVIX) 75 mg tablet Take 1 Tablet by mouth daily. Reorder 11/17/2021 12/06/2021 pantoprazole (PROTONIX) 40 mg tablet Take 1 Tablet by mouth daily. Reorder 11/17/2021 12/06/2021 carvediloL (COREG) 6.25 mg tablet Take 1 Tablet by mouth 2 times daily with breakfast and dinner. Reorder 11/17/2021 12/06/2021 documented as of this encounter Care Teams Casting Room Helper Relationship Specialty Start Date End Date Nivia Tinsley MD [address] [place] [address] PCP - General Family Medicine - Primary Care 08/27/19 Zheng Tapia MD [address] [place] [address] [address] [place] [address] Internal Medicine - Primary Care 09/01/19 Shazia Burks MD [address] [place] [address] Neurology 09/01/19 Tony Baron OD [address] [place] [phone] Environmental Director 09/01/19 Keira Paniagua MD [address] [place] [address] [address] [place] [address] Cardiovascular Disease 09/06/20 Siva Perkins MD [address] [place] [address] Neurology 09/06/20 documented as of this encounter
--- OUTSIDE RECORDS SUMMARY | 2024-04-29 18:21 | XMS_ITS | Encounter Summary ---
Author Organization [facility] Address [address] [place] [address] Care Team Providers Care House Worker General Name Role Phone Nivia Tinsley MD Primary Care Provider Zheng Tapia MD Unavailable Shazia Burks MD Unavailable [phone] Tony Baron OD Unavailable [phone] Keira Paniagua MD Unavailable [phone] Siva Perkins MD Unavailable [phone] Reason for Visit * Reason Onset Date Comments Other 12/01/2021 Encounter Details Date Type Department Care Team (Late st Contact Info) Description 12/01/2021 Telephone [facility] - [facility] Integrative Family Medicine [facility] [address] [place], [place] [id number] Nivia Tinsley MD [address] [place] [address] Other Social History Tobacco Use Types Packs/Day [...] Telephone Encounter - Yaa Graham RN - 12/01/2021 1620 EST Detailed message left for Amina regarding patients medications. * Telephone Encounter - Nivia Tinsley MD - 12/01/2021 1327 EST Pt. Had a NSTEMI (non-ST elevated myocardial infarction) (HCC-CMS) ([facility]) and the carvedilol was rxed by Molly Palm MD who is a rare/endangered species specialist. She can take her statin with all of her other meds, but the carvedilol is the drug of choice after an [place]. I guess we could change to Metoprolol XL which is once a day, but I think that the carvedilol is more cardioselective.... * Telephone Encounter - Avis Mckeon - 12/01/2021 0925 EST HH calling to say she is forgetting to take her evening meds consistantly Calling to see if meds can be switched so that they are all 1 time per day so there is no evening dosages? Please call Amina back with ideas? documented in this encounter Plan of Treatment Upcoming Encounters Date Type Department Care Team (Late st Contact Info) Description 06/11/2024 12:45 EDT Office Visit [facility] Ophthalmology [facility] [address] [place] [address] [place] MD 111 [facility], Level [address] [place] [address] 07/15/2024 10:45 EDT Office Visit [facility] Cardiology Clinic [address] [place] [id number] Gianfranco Flowers MD [address] [place] [address] [address] [place] [address] documented as of this encounter Visit Diagnoses Not on filedocumented in this encounter Care Teams House Worker General Relationship Specialty Start Date End Date Nivia Tinsley MD [address] [place] [address] PCP - General Family Medicine - Primary Care 08/27/19 Zheng Tapia MD [address] [place] [address] Internal Medicine - Primary Care 09/01/19 Shazia Burks MD [address] [place] [address] Neurology 09/01/19 Tony Baron OD [address] [place] [address] Highway Truck Driver 09/01/19 Keira Paniagua MD 130 [facility] [address] [place] [address] Cardiovascular Disease 09/06/20 Siva Perkins MD [address] [place] [address] Neurology 09/06/20 documented as of this encounter
--- OUTSIDE RECORDS SUMMARY | 2024-04-29 18:21 | XMS_ITS | Encounter Summary ---
Author Organization [facility] Address [address] [place] [address] Care Team Providers Care Communication Coordinator Name Role Phone Nivia Tinsley MD Primary Care Provider Zheng Tapia MD Unavailable Shazia Burks MD Unavailable [phone] Tony Baron OD Unavailable [phone] Keira Paniagua MD Unavailable [phone] Siva Perkins MD Unavailable [phone] Reason for Visit * Reason Onset Date Comments Orders (Non Pre-visit) 12/06/2021 Encounter Details Date Type Department Care Team (Late st Contact Info) Description 12/06/2021 Telephone [facility] - [facility] Integrative Family Medicine [facility] [address] [place] [address] Nivia Tinsley MD [address] [place] [address] Orders (Non Pre-visit) Social History Tobacco Use [...] encounter Miscellaneous Notes * Telephone Encounter - Jamey Duggan - 12/06/2021 0935 EST Patient requires pads and pullups on a daily basis. She is wondering if there is a way that can write her a note to ensure that these materials are covered by Medicare. Can we help her at all? documented in this encounter Plan of Treatment Upcoming Encounters Date Type Department Care Team (Late st Contact Info) Description 06/11/2024 12:45 EDT Office Visit [facility] Ophthalmology - [address] [address] [place] MD [address] [place] [address], [facility] [address] [place] [address] 07/15/2024 10:45 EDT Office Visit [facility] Cardiology Clinic [address] [place], [place] [address] Gianfranco Flowers MD 130 [facility] [address] [place] [address] documented as of this encounter Visit Diagnoses Not on filedocumented in this encounter Care Teams Communication Coordinator Relationship Specialty Start Date End Date Nivia Tinsley MD [address] [place] [address] PCP - General Family Medicine - Primary Care 08/27/19 Zheng Tapia MD [address] [place] [address] 7 [place] [address] Internal Medicine - Primary Care 09/01/19 Shaiza Burks MD [address] [place] [address] Neurology 09/01/19 Tony Baron OD [address] [place] [address] Compound Specialist 09/01/19 Keira Paniagua MD 130 [facility] [address] [place] [address] Cardiovascular Disease 09/06/20 Siva Perkins MD [address] [place] [address] Neurology 09/06/20 documented as of this encounter
--- OUTSIDE RECORDS SUMMARY | 2024-04-29 18:21 | XMS_ITS | Encounter Summary ---
Author Organization [facility] Address [address] [place] [address] Care Team Providers Care Nutritional Services Cook Name Role Phone Nivia Tinsley MD Primary Care Provider [phone] Zheng Tapia MD Unavailable Shazia Burks MD Unavailable [phone] Tony Baron OD Unavailable [phone] Keira Paniagua MD Unavailable [phone] Siva Perkins MD Unavailable [phone] Encounter Details Date Type Department Care Team (Late st Contact Info) Description 11/17/[address] [facility] Therapy [address] [place] [address] Breezy Saldaña, PT 156 [facility] [place] [address] Social History Tobacco Use Types Packs/Day Years [...] as of this encounter Progress Notes * Breezy Saldaña, PT - 11/17/2021 0943 EST [facility] Outpatient Rehabilitation Services [phone] Physical Therapy Discharge Not Seen Recently Therapy Diagnosis: 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 (Unknown if met) Short Term Goal Timeframe: 08/02/21 Inspection Machine Tender Goal: The patient will be able to perform a Ltzcm-Gx-uzi-Go test in 40 seconds with use of a rollator which would indicate improved ability to perform transfers and ambulate at home. [facility] Goal Timeframe: 08/29/21 Discharge Reason: Called to cancel last appointment due to weather and did not reschedule. Discharge patient at this time; future therapy will require a new physician's referral. documented in this encounter Plan of Treatment Upcoming Encounters Date Type Department Care Team (Late st Contact Info) Description 06/11/2024 12:45 EDT Office Visit [facility] Ophthalmology [address] [address] [place] MD [address] [place] [address] 5 [place] [address] 07/15/2024 10:45 EDT Office Visit [facility] Cardiology Clinic [address] [place] [address] Gianfranco Flowers MD 130 [facility] [address] [place] [address] documented as of this encounter Visit Diagnoses Not on filedocumented in this encounter Care Teams Nutritional Services Cook Relationship Specialty Start Date End Date Nivia Tinsley MD [address] [place] [address] PCP - General Family Medicine - Primary Care 08/27/19 Zheng Tapia MD [address] [place] [address] Internal Medicine - Primary Care 09/01/19 Shazia Burks MD [address] [place] [address] Neurology 09/01/19 Tony Baron, FRANCK [address] [place] [address] Tile Grinder 09/01/19 Keira Paniagua MD 130 [facility] [address] [place] [address] Cardiovascular Disease 09/06/20 Siva Perkins MD 1200 [facility] [place] [place] [phone] Neurology 09/06/20 documented as of this encounter
--- OUTSIDE RECORDS SUMMARY | 2024-04-29 18:22 | XMS_ITS | Encounter Summary ---
Author Organization [facility] Address [address] [place] [address] Care Team Providers Care Supervisor Benzene Refining Name Role Phone Nivia Tinsley MD Primary Care Provider [phone] Zheng Tapia MD Unavailable Shazia Burks MD Unavailable [phone] Tony Baron OD Unavailable [phone] Keira Paniagua MD Unavailable [phone] Siva Perkins MD Unavailable [phone] Encounter Details Date Type Department Care Team (Latest Contact Info) Description 11/12/2021 Travel Social History Tobacco Use Types Packs/Day [...] you have serious difficulty h earing? No 11/12/2021 Are you blind or do you have serious difficulty seeing, even when wearing glasses? Yes 11/12/2021 Do you have serious difficul ty walking or climbing stairs? (5 years old or older) Yes 11/12/2021 Do you have difficulty dress ing or bathing? (5 years old or older) Yes 11/12/2021 Because of a physical, menta l, or emotional condition, do you have difficulty doing errands alone such as visiting a doctor's office or shopping? (15 years old or older) Yes 11/12/2021 Cognitive Status Response Date of Assessm ent Because of a physical, menta l, or emotional condition, do you have serious difficulty concentrating, remembering, or making decisions? (5 years old or older) Yes 11/12/2021 documented as of this encounter Plan of Treatment Upcoming Encounters Date Type Department Care Team (Late st Contact Info) Description 06/11/2024 12:45 EDT Office Visit [facility] Ophthalmology - [place] [address] [place] [address] [place] MD 111 [facility] 5 [place] [address] 07/15/2024 10:45 EDT Office Visit [facility] Cardiology Clinic [address] [place], [place] [phone] Gianfranco Flowers MD [address] [place] [address] [address] documented as of this encounter Visit Diagnoses Not on filedocumented in this encounter Care Teams Supervisor Benzene Refining Relationship Specialty Start Date End Date Nivia Tinsley MD [address] [place] [address] PCP - General Family Medicine - Primary Care 08/27/19 Zheng Tapia MD [address] [place] [address] Internal Medicine - Primary Care 09/01/19 Shazia Burks MD [address] [place] [address] Neurology 09/01/19 Tony Baron, FRANCK [address] [place] [address] Adult Literacy Teacher 09/01/19 Keira Paniagua MD [address] [place], [place] [address] [address] [place] [address] Cardiovascular Disease 09/06/20 Siva Perkins MD [address] [place] [address] Neurology 09/06/20 documented as of this encounter
--- OUTSIDE RECORDS SUMMARY | 2024-04-29 18:22 | XMS_ITS | Encounter Summary ---
Author Organization [facility] Address [address] [place] [address] Care Team Providers Care Copy Center Operator Name Role Phone Nivia Tinsley MD Primary Care Provider Zheng Tapia MD Unavailable Shazia Burks MD Unavailable [phone] Tony Baron OD Unavailable [phone] Keira Paniagua MD Unavailable [phone] Siva Perkins MD Unavailable [phone] Reason for Visit * Reason Onset Date Comments Orders (Non Pre-visit) 10/21/2021 Encounter Details Date Type Department Care Team (Late st Contact Info) Description 10/21/2021 Telephone [facility] Integrative Family Medicine [facility] [address] [place] [address] Nivia Tinsley MD [address] [place] [address] Orders (Non Pre-visit) Social History [...] Functional Status Response Date of Assess ment Is this person blind or does he/she have serious difficulty seeing even when wearing glasses? Yes 9 Because of a physical, menta l, or emotional condition, does this person have difficulty doing errands alone such as visiting a doctor's office or shopping? Yes 09/09/2019 Cognitive Status Response Date of Assessm ent Because of a physical, menta l, or emotional condition, does this person have serious difficulty concentrating, remembering, or making decisions? No 09/09/2019 documented as of this encounter Miscellaneous Notes * Telephone Encounter - Yaa Graham RN - 10/21/2021 1040 EST Referral placed. Patient informed. * Telephone Encounter - Nivia Tinsley MD - 10/21/2021 1002 EST I have not idea, but you could put in a referral to [facility] to see if they can help... * Telephone Encounter - Jamey Duggan - 10/21/2021 0941 EST Patient would like help finding a local, affordable Life Alert-type pendant service. She is currently using one based out [facility] that she does not like as it is too expensive and the [place] service is hours behind [place] time. Is there any service we know of that we can recommend? documented in this encounter Plan of Treatment Upcoming Encounters Date Type Department Care Team (Late st Contact Info) Description 06/11/2024 12:45 EDT Office Visit [facility] Ophthalmology - [address] [id number] [place] Anthony MD [address] [place] [address], [address] [place] [address] 07/15/2024 10:45 EDT Office Visit [facility] Cardiology Clinic [address] [place], [place] [phone] Gianfranco Flowers MD 130 [facility] [address] [place] [address] documented as of this encounter Visit Diagnoses Diagnosis Elderly person living alone- Primary Person living alone Weakness Other malaise and fatigue documented in this encounter Care Teams Copy Center Operator Relationship Specialty Start Date End Date Nivia Tinsley MD [address] [place] [phone] PCP - General Family Medicine - Primary Care 08/27/19 Zheng Tapia MD [address] [place] [address] [address] [place] [address] Internal Medicine - Primary Care 09/01/19 Shazia Burks MD [address] [place] [address] Neurology 09/01/19 Tony Baron OD [address] [place] [address] Cloud Subject Matter Expert 09/01/19 Keira Paniagua MD [address] [place] [address] [address] [place] [address] Cardiovascular Disease 09/06/20 Siva Perkins MD 1200 [facility] [place] [address] Neurology 09/06/20 documented as of this encounter
--- OUTSIDE RECORDS SUMMARY | 2024-04-29 18:22 | XMS_ITS | Encounter Summary ---
Author Organization [facility] Address [address] [place] [address] Care Team Providers Care Sales Clerk Supervisor Name Role Phone Nivia Tinsley MD Primary Care Provider Zheng Tapia MD Unavailable Shazia Burks MD Unavailable [phone] Tony Baron OD Unavailable [phone] Keira Paniagua MD Unavailable [phone] Siva Perkins MD Unavailable [phone] Reason for Visit * Auth/Cert Specialty Diagnoses / Procedures Referred By Lesa alves Referred To Contact Diagnoses NSTEMI Referral ID Status Reason Start Date Expiration Date Visits Re quested Visits Authorized [id number] 1 1 Encounter Details Date Type Department Care Team (Late st Contact Info) Description 11/16/2021 8:20 EST - 11/16/2021 9:20 EST Surgery [facility] Invasive Cardiology Unit [address], [place] [address] Molly Palm MD [address] [facility] [address] [place] [address] [phone] Left Heart Cath Surgery Details Date/Time Status Location OR Service Patient Class Case Class Case Type Trauma Case? 11/16/21 0820 Posted [facility] Model Builder Display Model Builder Display 3 Interventional Cardiology Inpatient Panel 1 Procedure LRB Anes Op Region Wound Class Comments Left Heart Cath Left Chest Surgeon Surgeon Role Service Panel Molly Palm MD Primary Interventional Ca rdiology 1 documented in this encounter Social History Tobacco Use Types Packs/Day Years [...] 2:58 EST documented as of this encounter Last Filed Vital Signs Vital Sign Reading Time Taken Comments Blood Pressure 157/70 11/16/2021 0841 EST Pulse - - Temperature 36.8 ??C (98.2 ??F) 11/16/2021 0204 EST Respiratory Rate 20 11/16/2021 0753 EST Oxygen Saturation 95% 11/16/2021 0841 EST Inhaled Oxygen Concentration - - Weight 69.8 kg (153 lb 12.8 oz) 11/16/2021 0535 EST Height 165.1 cm (5' 5) 11/15/2021 1700 EST Body Mass Index 25.91 11/15/2021 1700 EST documented in this encounter Functional Status [...] No 11/15/2021 documented as of this encounter Discharge Summaries * Beata Horton, DNP - 11/17/2021 1421 EST Cardiology Discharge Summary Primary Care Provider: Nivia Tinsley Attending Physician: Molly Palm MD Admit Date: 11/15/2021 Discharge Date: 11/17/21 Disposition: Home or self care Problems and Procedures Admitting Diagnosis: NSTEMI (non-ST elevated myocardial infarction) ([facility]) ([facility]) Final Hospital Diagnosis: NSTEMI s/p PCI Additional Problems Managed in the Hospital Active Hospital Problems Diagnosis Date Noted ??? *NSTEMI (non-ST elevated myocardial infarction) ([facility]) ([facility]) 11/12/2021 Resolved Hospital Problems No resolved problems to display. Principal Procedure: Heart cath and Percutaneous coronary intervention Date: 11/15/2021 Anesthesia: A moderate level of anesthesia/conscious sedation was used in addition to local anesthesia. ?? Access: Right femoral artery and Right radial artery ?? Procedure: She was brought to [facility] Cardiac [facility]atheterization Laboratory for the procedure: Diagnostic coronary/graft angiography, Left heart cath and Coronary intervention (PCI). ?? Closure: TR Band ?? Post-Procedure Condition: The condition of the patient was Good. ?? Complications: None. ?? IV Contrast Total: 125 mL X-ray Dose: 289mGy ?? Estimated Blood Loss: Minimal. Unless otherwise noted,there were no specimens removed, cultures obtained, or drains retained. ?? Diagnostic Cardiac Study Results Left main: MLI Left anterior descendin% prox with ruptured plaque Left circumflex: 100% mid with collaterals from RCA Right coronary artery: MLI Grafts: NA ?? Left Ventriculography and Hemodynamic Results LVEDP 7mmHG ?? Post-Procedure Diagnostic Conclusion: PCI is indicated. ?? Interventional Procedure: Using standard technique, the prox LAD vessel was stented using a 3.5/ 26mm [place] SOCO dilated to 4.0mm. . ?? Plan: See post-procedure orders. Aspirin 81mg PO daily. Clopidogrel 75 mg PO daily. TTE on 11/14/21 at 06:50 ?Left??Ventricle: The left ventricular cavity was normal in size. The estimated left ventricular ejection fraction by biplane Borja's method was 58 % (normal). Findings consistent with left ventricular diastolic dysfunction. Doppler parameters are consistent with elevated left atrial fillingpressure. There was moderate concentric hypertrophy of the left ventricle. Left ventricular wall motion was normal; there were no regional wall motion abnormalities. ?Right??Ventricle: The right ventricular cavity was normal in size. Right ventricular systolicfunction was normal. ?Left??Atrium: Left atrial cavity was moderately dilated. ?? NM Card Spect Pharm Mult Studies Complete on 11/15/21 at 11:20: ?Perfusion: There was a ??moderate intensity, medium sized predominantly reversible perfusion defect in the mid anterior and apical anterior wall(s) and apex. This indicates medium ischemia in the LAD coronary territory. ?Function: Global LV function is normal. Post-stress ejection fraction is 57 %. There is was hypokinesis of the mid-apical anterior and apical wall . ?Baseline??ECG: Up to 3 mm precordial T wave inversions were noted at baseline. ?Stress ECG: Stress ECG was non-diagnostic due to baseline ST changes. ?? 1. Moderate ischemia in LAD territory 2. Intermediate risk study ?? 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 She was found tohave an elevated troponin of 0.071 and an ECG showed T wave inversions in aVL and precordial leads.She was started on IV heparin. Her troponin peaked on 11/12/21 at 2.51. She was admitted to [facility] pending bed availability at [facility]. She remained stable during her admission at [facility]. She had a TTE on 11/14/21 that showed an LVEF of 58% and diastolic dysfuntion. She underwent a SPECT MPI on 11/15/21 that showed a medium-sized predominantly reversible defect in the mid- apical anterior and apical segments. She was transferred to [facility] on 11/15/21 for a left heart catheterization. She underwent a left heart catheterization on 11/16/21. Patient had heart cath and stenting to the proximal LAD as above. Patient did well overnight and was free of arrhythmias on telemetry. TTE revealed an ejection fraction of 58% without regional wall abnormalities. New Medications started during hospitalization: - Clopidogrel 75 mg daily x 6-12 months uninterrupted plus Aspirin 81 mg daily - Carvedilol 6.[address] of .NET ARCHITECT Atenolol - Atorvastatin 40 mg daily (increased from .NET ARCHITECT dose of 10 mg) - Protonix 40 mg daily (in place of .NET ARCHITECT Prilosec) During admission the patient was noted to have a hemoglobin A1C of 6.9% [facility]. Follow up was requested with PCP and [facility] Cardiology. Pt was also referred for cardiac rehab evaluation at [facility]. The patient was cleared by physical therapy as safe to return home with Home Health Skill nursing, PT and OT as well as her 4 hours per day of private nursing care. Allergies and Immunizations Allergies Allergen Reactions ??? Adhesive Tape-Silicones Rash ??? Enalapril Cough Cough and rash ??? Other - See Comments seasonal allergies?environmentanl? - sneezing ??? Simvastatin Per patient, abdominal and muscle pain. Immunization History Administered Date(s) Administered ??? Influenza Vaccine High Dose (FLUZONE HIGH DOSE) PF 0.7 ml IM (65 yrs+) 07/13/2017, 08/12/2018, 08/02/2020 ??? Influenza Vaccine Pediatric Quad (AFLURIA PEDIATRIC) PF 0.25 ml IM (6-35 mos) 07/10/2016 ??? Pneumococcal Conj Vacc PCV13 (PREVNAR-13) IM 06/01/2017 ? ? Pneumococcal Polysaccharide (PPSV23) Vaccine (PNEUMOVAX-23) =>2YO SQ/IM 03/06/2016 ? ? Tdap Vaccine =>7YO IM 09/03/2017 Transition of Care Plans Condition at Discharge Improved Assessment at Discharge Vitals: 11/17/21 0026 11/17/21 0438 11/17/21 0802 11/17/21 1308 BP: 118/65 136/58 (!) 145/67 BP Cuff Location: Left arm Right arm Right arm BP Patient Position: Lying left side Semi fowlers Sitting Resp: 18 18 Temp: 36.4 ??C (97.6 ??F) TempSrc: Oral SpO2: 94% 94% Weight: 70.6 kg (155 lb 11.2 oz) Height: Is the patient being discharged with a diagnosis of Systolic Heart Failure? No Coumadin Management N/A Non-Cardiac Studies at Time of Discharge none Results Pending at Discharge Test results still pending from this admission None Last Lab Results at Discharge BUN: Lab Results Component Value Date BUN 16 11/17/2021 Creatinine: Lab Results Component Value Date CREATININE 0.77 11/17/2021 CBC: Lab Results Component Value Date WBC 7.93 11/17/2021 RBC 3.96 11/17/2021 HGB 12.8 11/17/2021 HCT 37.2 11/17/2021 MCV 94 11/17/2021 MCH 32.3 11/17/2021 MCHC 34.4 11/17/2021 PLT 198 11/17/2021 DIFFTYPE Auto 11/15/2021 Electrolytes: Lab Results Component Value Date NA 135 (L) 11/17/2021 K 4.3 11/17/2021 CL 104 11/17/2021 CO2 19 (L) 11/17/2021 Lipid Profile: Lab Results Component Value Date CHOL 199 11/12/2021 TRIG 359 11/12/2021 HDL 36 11/12/2021 LDLBASE 91 11/12/2021 CHOLHDL 5.5 11/12/2021 Lab Results Component Value Date HGBA1C 6.9 (H) 11/13/2021 Discharge Follow Up Appointments Scheduled with [facility] Upcoming Appointments Dec 26, 2021 11:00 ANNUAL WELLNESS MEDICARE with Nivia Tinsley MD [facility] (--) [address] [place] [phone] Appointments Outside of [facility] We Will Schedule Follow-up appointments and procedures [facility] [place] I certify that this patient is under my care and that I, or another Medicare allowed practitioner (DO KARLENE, FRANKIE) working with me, had a gzbx-uw-uocc encounter with this patient on this date: 11/17/2021 The discharge summary or progress note will provide further details that support the need for the home health services and the plan of care.: Yes Enter the allowed practitioner (DO KARLENE, FRANKIE) who will provide oversight of this patient's home heatlh care needs and plan of care: Nivia Tinsley The patient???s homebound status is related to the following diagnoses, illness or condition (describe): NSTEMI s/p PCI, h/o CVA w/ limited mobility Patient needs one or more of the following to leave home: Assistance not necessary, but medically contraindicated as indicated below. Leaving the home is medically contraindicated due to: Not medically contraindicated, but needs assistance as indicated above. The following conditions illustrate the patient???s normal inability to leave home AND that leavinghome requires a considerable and taxing effort: The severity of cardiac disease limits activity tolerance and ambulation Skilled Care Requested: Physical Therapy Occupational therapy Nursing asessment long term assessment needed related to this encounter: CP Status Physical therapy is needed for: Evaluation Safety Gait/Mobility Assessment and Training Equipment Recommendations Strength Training/Exercise Program Occupational Therapy for: ADL Training Assess Need for Adaptive Equipment Bathroom Equipment Eval Expected Discharge Date (Inpatient Only): 11/17/2021 Authorizing Provider: Beata Horton DNP Alison M Farr, DNP 11/17/2021 14:20 documented in this encounter Discharge Instructions * Attachments The following attachments cannot be sent through Care Everywhere. * clopidogrel (Faroese) * carvedilol (Faroese) documented in this encounter Medications at Time of Discharge Medication Sig Dispensed Refills Start Date End Date medical supply, miscellaneous ([employer] ACCESSORY MISC) with seat, basket under the seat and breaks as directed dx: Abnormal gait and legally blind daily 07/13/2017 aspirin chewable 81 mg tablet Take 1 Tablet by mouth daily. 30 Tablet 11 10/21/2021 12/06/2021 atorvastatin (LIPITOR) 40 mg tablet Take 1 Tablet by mouth at bedtime. 90 Tablet 3 11/16/2021 12/06/2021 carboxymethylcellulose sodium (ARTIFICIAL TEARS, [facility],) 1 % drops Apply 2 Drops to eye as needed (dry eye). 10 mL 10/21/2021 02/21/2022 carvediloL (COREG) 6.25 mg tablet Take 1 Tablet by mouth 2 times daily with breakfast and dinner. 180 Tablet 3 11/17/2021 12/06/2021 cholecalciferol, Vitamin D3, 25 mcg (1,000 unit) tabletIndications:Vitami n D deficiency Take 1 Tablet by mouth daily. 30 Tablet 11 10/21/2021 12/06/2021 clopidogreL (PLAVIX) 75 mg tablet Take 1 Tablet by mouth daily. 90 Tablet 3 11/17/2021 12/06/2021 fluticasone propionate (FLONASE) 50 mcg/actuation nasal sprayIndications:Post-na janes drip Instill 1 [place] into both nostrils 2 times daily. 16 g 10/21/2021 04/10/2022 hydrocortisone 1 % ointmentIndications:Jose Martin rgic rash present on examination Apply to affected area TID PRN 56 g 1 10/21/2021 02/21/2022 levothyroxine (SYNTHROID) 100 mcg tabletIndications:Other specified hypothyroidism Take 1 Tablet by mouth daily. 30 Tablet 11 10/21/2021 12/06/2021 losartan (COZAAR) 100 mg tabletIndications:Essent ial hypertension 1 tab(s) orally once a day 30 Tablet 11 10/21/2021 12/06/2021 pantoprazole (PROTONIX) 40 mg tablet Take 1 Tablet by mouth daily. 90 Tablet 3 11/17/2021 12/06/2021 vit A,C & M-fbympt-zympkovz (OCUVITE) 1,000 unit-200 mg-60 unit-2 mg tablet Take 1 tab by mouth daily 30 Tablet 11 10/21/2021 12/06/2021 documented as of this encounter Ordered Prescriptions Prescription Sig Dispensed Refills Start Date End Da te carvediloL (COREG) 6.25 mg tablet Take 1 Tablet by mouth 2 times daily with breakfast and dinner. 180 Tablet 3 11/17/2021 12/06/2021 pantoprazole (PROTONIX) 40 mg tablet Take 1 Tablet by mouth daily. 90 Tablet 3 11/17/2021 12/06/2021 clopidogreL (PLAVIX) 75 mg tablet Take 1 Tablet by mouth daily. 90 Tablet 3 11/17/2021 12/06/2021 atorvastatin (LIPITOR) 40 mg tablet Take 1 Tablet by mouth at bedtime. 90 Tablet 3 11/16/2021 12/06/2021 documented in this encounter Discharge Disposition Disposition Code Departure Means Destination Home-Health Care [facility] Home documented in this encounter Progress Notes * Lela Sanchez, CORRECTIVE AND MANUAL ARTS THERAPIST - 11/17/2021 1347 EST CASE MANAGEMENT DISCHARGE NOTE DISCHARGE DATE/TIME: 11/17/2021 DESTINATION: Home TRANSPORTATION: Daughter DISPATCHER CHIEF COAL SLURRY/CHARGE/MD NOTIFIED (Y/N): Y IM SIGNED (Y/NA): NA HOME HEALTH: [facility] for long-term, PT, and OT RN REPORT: [facility] - [phone] DME: Pt has all necessary DME at home PHARMACY/PRESCRIPTIONS: THIS IS A MEDS TO BEDS PATIENT- If discharging to home please call outpatient pharmacy @ [phone] or page [phone] at discharge to have meds delivered to the bedside. Please notifypharmacy that patient is being discharged by calling [phone] prior to reviewing the AVS with the patient. MEDS TO BEDS UTILIZED : YES Patient and/or family who participated in discharge plan: [place] Ext [phone] Pager #[phone] * Camille Sullivan, OT - 11/17/2021 1303 EST [facility] Rehabilitation Therapy Acute Therapy [facility] Occupational Therapy Initial Evaluation and D/C Note Date of Service: 11/17/2021 Reason for Referral: Priority for discharge Mobility Precautions Activity: Fall risk/precautions, Ambulate, Activity as tolerated SUBJECTIVE: Patient/caregiver states: I have it drilled in my head to always push up pt said re: hand placement when coming from sit > stand. Subjective Information Reported by: Patient Pain Description: No pain reported during interview OBJECTIVE: Patient Profile: Patient is a 81 y.o. female admitted on 11/15/2021 secondary to NSTEMI (non-ST elevated myocardial infarction) ([facility]) ([facility]). The patient lives at [address] [place] [address] Hand Dominance: Right Current Illness / Injury: Per MD H and P from 11/15: Chief Complaint: Epigastric pain, and bilateralarm pain HPI: Concetta Sullivan is am 81 year old female patient with a history significant for HTN and GERD who came into [facility] on 11/12/21 with acute onset of epigastric pain and bilateral arm pain. She endorses 3 days of intermittent back pain prior to this, but decided to call EMS when she had one hour of unremitting epigastric pain and arm pain. She described the epigastric pain as indigestion. She received 325mg of aspiring en route to [facility] ED. Upon arrival at [facility], she was found to have an elevated troponin of 0.071. ECG showed T wave inversions in aVL and precordial leads. She was startedon IV heparin. Her troponin peaked on 2/12/22 at 2.51. She was admitted to [facility] pending bed availability at [facility]. She remained stable during her admission at [facility]. She had a TTE on 11/14/21 that showed an LVEF of 58% and diastolic dysfuntion. She underwent a SPECT MPI on 11/15/21 that showed a medium-sized predominantly reversible defect in the mid-apical anterior and apical segments. She was transferred to [facility] on 11/15/21 for a left heart catheterization. She endorses mild shortness of breath currently, as well as dizziness last night. She denies any chest pain/pressure, abdominal pain, nausea, vomiting, or current dizziness or lightheadedness Support Person: Caregiver Amount of Support: Part-time assist Support Comment: 4 hrs/day 7 days/week Prior Level of Function: Prior Level of Function Comment: Concetta shares that she spends her day in her wheelchair but can independently transfer to it, sometimes she uses a walker to assist and does not have a transfer board. The caregivers assist her with housekeeping, ambulating with her walker, bathing, and occasionallygroceries when her neighbor does not get them for her. She is able to dress and toilet herself along with put her meals together. Level of Assistance Throughout: Needed physical assistance Previous / Ongoing Services: shipping helper Services Comments: Had been in OPPT in the fall but stopped 2/2 difficulty with transport in the winter. Is interested in returning. Medical/Surgical History: Current: The patient has Cerebral atherosclerosis; Gastro-esophageal reflux disease without esophagitis; Hyperlipidemia; Hypertension; Hypothyroidism, unspecified; Prediabetes; Shuffling gait; Vitamin D deficiency; Basilar artery stenosis/occlusion with infarction ([facility]); Decreased visual acuity; and NSTEMI (non-ST elevated myocardial infarction) ([facility]) ([facility]) on their problem list. 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 The patient has a past surgical history that includes Colonoscopy (01/2007). 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 Visual History: Macular degeneration Neuromusculoskeletal and Movement Related Functions: Range of Motion: Within normal limits as demonstrated functionally except as noted Strength: Manual muscle testing not formally performed, strength observed to be > 3/5 with grossmovement Skin and Related Structure Functions: PIV Catheter Peripheral IV Posterior;Right Hand -- days Peripheral IV 11/15/212027 Left;Anterior;Lateral Forearm 1 day Areas of Occupation and Performance Skills Basic Activities of Daily Living: Feeding Level of Assistance: Complete independence Sit to Stand Transfer: From chair Level of Assistance: Modified independence Cue Amount: Supervised Type of Cues: Verbal Sit to Stand Transfer: From wheelchair Level of Assistance: Modified independence Cue Amount: Supervised Type of Cues: Verbal Adaptive Equipment for Transfers: Rolling walker Stand to Sit Transfer: To chair Level of Assistance: Modified independence Cue Amount: Supervised Type of Cues: Verbal Stand to Sit Transfer: To wheelchair Level of Assistance: Modified independence Cue Amount: Supervised Type of Cues: Verbal Adaptive Equipment for Transfers: Rolling walker Stand Step Transfer: To wheelchair Level of Assistance: Modified independence Cue Amount: Supervised Type of Cues: Verbal Stand Step Transfer: To chair Level of Assistance: Modified independence Cue Amount: Supervised Type of Cues: Verbal Adaptive Equipment for Transfers: Rolling walker Instrumental Activities of Daily Living: Instrumental Activities of Daily Living: Not evaluated Not Evaluated Reason: Not appropriate for diagnosis/reasons for referral Informed Consent: Interventions Completed Today: Time: 1255 Total Treatment Time (minutes): 25 Timed Code Treatment Minutes: 8 Procedures: Therapeutic activities Therapeutic Activities Minutes: 8 Therapeutic Activities 1: During all functional activities noted above this patient was provided with manual assist and education via combination of verbal and demonstration. This was provided to give movement strategies to increase amount of functional activity while decreasing pain, activity effort and work of breathing.Therapist led skilled discussion with pt re: the following educational topics: role of OT, D/C recommendation (home with continued support from it help desk manager as well as HHOT). Ptreported understanding with no barriers to learning. Patient/Family Education: Team Communication Team Communication Status: No communication needed at this time ASSESSMENT: Concetta Sullivan is an 81 year old female patient with a history significant for HTN and GERD who was transferred from [facility] on 11/15/21 due to an elevated troponin (peaked on 11/12/21 at 5.21), T wave inversions in the anterolateral leads, and a NM Spect study on 11/15/21 showing a reversible perfusiondefect in th LAD territory. S/p left heart catheterization (11/16). Per today's eval, pt demonstrates adequate skills needed to safely D/C home. Recommend continued support from her hired caregiver as well as additional support from HHOT upon D/C home. Do not feel that pt needs any additional DME as she already has all necessary DME in place. Pt to be D/C from acute care OT at this time. Medical Necessity: the patient does not require further occupational therapy intervention at this time. Short Term Goals: Time Frame: Refer to LTGs Foundry Hand Goals: Time Frame: Set and Met during session Goal: Pt will demonstrate skills needed to complete BADLs and functional transfers at mod (I) to S level. Status: Initiated, Met Goal: Pt will demonstrate understanding with OT DME and D/C recommendations. Status: Initiated, Met PLAN: Recommended Discharge Destination: Home alone Therapy Specific Services: Home therapy, Occupational therapy Equipment Recommended: Patient has all necessary equipment Camille Sullivan OT, 11/17/2021, 13:37 * Oumou Cabral, PT - 11/17/2021 1219 EST [facility] Acute Therapy [facility] Initial Evaluation/Discontinue Note Date of Service: 11/17/2021 Reason for Referral: Evaluate and treat Mobility Precautions Activity: Ambulate, Activity as tolerated SUBJECTIVE: Reporting Person Comment: I'm very careful. I don't want to fall! Pain Description: No pain reported during interview OBJECTIVE: Patient Profile: Patient is a 81 y.o. female admitted on 11/15/2021 secondary to NSTEMI (non-ST elevated myocardial infarction) ([facility]) ([facility]) The patient lives at [address] [place], [place] [address] [address] Support Support Person: Caregiver Amount of Support: Part-time assist Support Comment: 4 hrs/day 7 days/week Home Environment: Safety Assessment / Living Environment Home environment: Senior apartment Home layout: One level Entrance Stairs: No entrance stairs Home Equipment: Bathing Equipment: Grab bars in shower stall, Shower chair Mobility Equipment: Wheelchair, Walker Bed Equipment: Bed rail Prior Level of Function: Prior Level of Function Comment: Concetta shares that she spends her day in her wheelchair but can independently transfer to it, sometimes she uses a walker to assist and does not have a transfer board. The caregivers assist her with housekeeping, ambulating with her walker, bathing, and occasionallygroceries when her neighbor does not get them for her. She is able to dress and toilet herself along with put her meals together. Services Comments: Had been in OPPT in the fall but stopped 2/2 difficulty with transport in the winter. Is interested in returning. Medical/Surgical History: Current: The patient has Cerebral atherosclerosis; Gastro-esophageal reflux disease without esophagitis; Hyperlipidemia; Hypertension; Hypothyroidism, unspecified; Prediabetes; Shuffling gait; Vitamin D deficiency; Basilar artery stenosis/occlusion with infarction ([facility]); Decreased visual acuity; and NSTEMI (non-ST elevated myocardial infarction) ([facility]) ([facility]) on their problem list. 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 The patient has a past surgical history that includes Colonoscopy (01/2007). Medications Current Medications: Current medications reviewed Arousal, Attention, and Cognition: Arousal/Alertness: Alert Following Commands: Follows all commands and directions without difficulty Cardiopulmonary: Pre DW=849/64 HR=67 Integumentary/Anthropometric: Skin Integrity Additional Comments: defer to RN notes for details Range of Motion and Joint Integrity: General Assessment Range of Motion: Within normal limits as demonstrated functionally except as noted Muscle Performance: Strength: Manual muscle testing not formally performed, strength observed to be > 3/5 with grossmovement Sensation, Reflexes, and Nerve Integrity: Sensory Functions: Not evaluated Not Evaluated Reason: Not appropriate for diagnosis/reason for referral Neuromotor Function/Development: No problems noted Balance, Mobility, and Gait: Balance Static Sitting Balance Level of Assistance: Independent Static Standing Balance Level of Assistance: Modified independent (with RW) Mobility Rolling: independent Supine to Sit: modified independent with bed rail Sit to Supine: modified independent with bed rail Sit to Stand: modified independent Transfers: bed to chair: modified independent Gait Pt able to take a few steps with RW covering 3-4 feet to get from bed to chair with mod I Self-Care, Home Management, Work, Leisure: Pt toileted and performed kana-hygiene mod I with grab bar Informed Consent: Informed Consent: The patient consented to the Physical Therapy evaluation. The patient agrees to and understands the Physical Therapy treatment plan and goals. Interventions Completed Today: Time: 11:30 Total Treatment Time (minutes): 25 Timed Code Treatment Minutes: 10 Procedures: Therapeutic activities ?? Supine to sit from flat bed with rail to simulate home set up, mod I ?? Sitting EOB, deep breathing, cuing for pacing ?? Sit<>stand with RW with supervision x 1 with cuing for hand placement. ?? Stand step bed to WC, no device with supervision x 1 with cuing for hand placement ?? WC mobility with BUE's and BLE's mod I ?? WC<>toilet with supervision x 1 with grab bar. Pt able to manage pants and wiping mod I. ?? WC to bed with mod I. Sit to supine mod I. Patient Status at the End of the Therapy Session, The patient was left in the: bed with the: Call ernst in reach Additional information may be available in the medical record. Patient/Family Education: Topics: role of PT, DC planning, follow up services, energy conservation Learner: Patient Method: Verbal Barriers to Learning: None Outcome: Verbalized understanding Team Communication Notified: Nurse When: Prior to therapy session By: [id number] communication About: pt status ASSESSMENT: The patient presents with a physical therapy diagnosis of: Impaired aerobic capacity and endurance Physical therapy examination reveals the following impairments: activity tolerance, aerobic tolerance, balance, endurance These impairments contribute to the following activity limitations: activities of daily living, functional mobility/transfers and participation restrictions: home management, community integration Concetta demonstrates adequate mobility for DC to home at this time. She typically functions at a WC level but has been working on trying to walk more with her home health aide with the RW. She would benefit from follow up HHPT in order to improve balance and endurance, with eventual return to OPPT once she is no longer home bound (had stopped winter transportation issues). She has exceptional safety awareness and has all of the necessary equipment for home. No further PT needs in the acute care setting. Short-Term Goals:N/A Long-Term Goals: 1 day - MET 1. Pt will be able to complete rolling R and L c mod I from a flat bed without rails in order to change position in bed and promote skin integrity. 2. The patient will be able to perform supine<>sit with mod I with railing in order to changeposition in bed and promote skin integrity. 3. The patient will be able to perform stand step transfer with RW c mod I in order to access all sitting surfaces. 4. Pt will demonstrate stable vital signs with all functional mobility noted above. 5. Pt and family with no further questions regarding diagnosis and POC. PLAN: Discontinue physical therapy services Discharge Recommendations Recommended Discharge Destination: Home alone Therapy Specific Services: Home therapy, Physical therapy Equipment Recommended: Patient has all necessary equipment Oumou Cabral PT 11/17/2021 12:45 * Oumou Cabral PT - 11/17/2021 1157 EST [facility] Acute Therapy [facility] Contact Note Date of Service: 11/17/2021 PT referral received and eval completed, full note to follow. Pt demonstrates adequate mobility for DC to home. She has all necessary equipment. Recommend followup with HHPT with eventual transition to OPPT when no longer home bound. Oumou Cabral PT 11/17/2021 11:57 * Beata Anthony MD - 11/16/2021 0820 EST Images from the original note were not included. Cardiology Progress note Service Date: 11/16/2021 Admit Date: 11/15/2021 16:14 Reason for Admission: Concetta Sullivan is an 81 year old female patient with a history significant for HTN and GERD who was transferred from [facility] on 11/15/21 due to an elevated troponin (peaked on 11/12/21 at 5.21), T wave inversions in the anterolateral leads, and a NM Spect study on 11/15/21 showing a reversible perfusion defect in th LAD territory. Events/ Procedures in the last 24 Hours: - NM spect study - Transfer from [facility] - Full code status for LHC and 48 hours afterwards - Daughter aware that patient is going into procedure Subjective/Objective Subjective Ms. Sullivan states that she slept very well. She is moderately anxious about the upcoming procedure. We discussed in depth about her code status. She is willing to be full code for the procedure and 48hours post procedure, but would like to fill out a COLST form detailing her advanced directive wishes afterwards. She denies any chest pain, shortness of breath, abdominal pain, nausea, vomiting, diarrhea, lightheadedness, dizziness, or headache. Review of Systems Pertinent items are noted in Subjective/HPI Objective Vital Signs Patient Vitals for the past 8 hrs: BP Heart Rate Resp Temp SpO2 O2 Device 11/16/21 0753 (!) 156/70 71 BPM 20 -- 97 % -- 11/16/21 0204 139/64 68 BPM 17 36.8 ??C (98.2 ??F) 98 % None Weight: Patient Vitals for the past 8 hrs: Weight 11/16/21 0535 69.8 kg (153 lb 12.8 oz) Intake/Output Summary (Last 24 hours) at 11/16/2021 0831 Last data filed at 11/16/2021 0204 Gross per 24 hour Intake 100.47 ml Output -- Net 100.47 ml Physical Exam General: NAD, sitting in recliner HEENT: anicteric sclera Lungs: clear to auscultation bilaterally Heart: regular rhythm and rate, normal S1 S2, no murmurs or rubs Abdomen: soft, non-tender, non-distended Extremities: warm, well perfused, no pedal edema, +2 pulses in all extremities Is PICC or central line present? No, PICC/Central line not present. Medications Current Facility-Administered Medications Medication Route Frequency ??? [MAR Hold] acetaminophen (TYLENOL) tablet 650 mg oral Q6H PRN ??? [NOV Hold] amLODIPine (NORVASC) tablet 5 mg oral DAILY ??? [NOV Hold] aspirin chewable tablet 81 mg oral DAILY ??? [NOV Hold] atenoloL (TENORMIN) tablet 25 mg oral DAILY ??? [NOV Hold] atorvastatin (LIPITOR) tablet 40 mg oral QHS ??? [NOV Hold] carboxymethylcellulose sodium (CELLUVISC) 1 % ophthalmic solution (PF) 1 Drop both eyes BID PRN ??? [NOV Hold] cholecalciferol (Vitamin D3) tablet 1,000 Units oral DAILY ??? fentaNYL citrate (PF) 50 mcg/mL injection ??? fentaNYL citrate (PF) injection PRN ??? [NOV Hold] fluticasone propionate (FLONASE) nasal spray 1 [place] nasal - both BID ??? [NOV Hold] heparin 1,000 unit/mL injection 4,300 Units intravenous PRN Or ??? [NOV Hold] heparin 1,000 unit/mL injection 2,200 Units intravenous PRN ??? heparin 1,000 unit/mL injection ??? heparin in 1/2 NS 25,000 unit/250 mL infusion intravenous CONTINUOUS ??? [NOV Hold] levothyroxine (SYNTHROID) tablet 100 mcg oral DAILY BEFORE BREAKFAST ??? lidocaine 20 mg/mL (2 %) injection ??? [NOV Hold] losartan (COZAAR) tablet 100 mg oral DAILY ??? [NOV Hold] melatonin tablet 3 mg oral AT BEDTIME PRN ??? midazolam (PF) (VERSED) 1 mg/mL injection ??? midazolam (PF) (VERSED) injection PRN ??? nitroglycerin 100 mcg/mL syringe ??? [NOV Hold] pantoprazole (PROTONIX) tablet 40 mg oral DAILY ??? [NOV Hold] polyethylene glycol 3350 (MIRALAX) packet 17 g oral Daily PRN ??? [NOV Hold] senna (SENOKOT) tablet 2 Tablet oral Daily PRN ??? verapamil (ISOPTIN) 2.5 mg/mL injection Labs: CBC: Recent Labs 11/15/21 0702 11/16/21 0246 WBC 6.89 7.45 HGB 12.8 12.5 HCT 37.9 36.3 MCV 95 94 PLT 213 204 BMP: Recent Labs 11/15/21 0702 11/16/21 0246 CREATININE 0.77 0.82 BUN 19 19 NA 139 135* K 4.3 4.1 CL 107 103 CO2 20* 24 CALCIUM 9.2 9.2 MG -- 1.9 LFTs: Recent Labs 11/15/21 0702 ALT 35* AST 35 ALKPHOS 118 TBIL 0.5 Cardiac Biomarkers: Recent Labs 11/15/21 0703 TROPONINI 0.848* Telemetry: yes, Normal sinus rhythm ECG on 11/12/21 at 01:14: ?? TTE on 11/14/21 at 06:50 ?Left??Ventricle: The left ventricular cavity was normal in size. The estimated left ventricular ejection fraction by biplane Borja's method was 58 % (normal). Findings consistent with left ventricular diastolic dysfunction. Doppler parameters are consistent with elevated left atrial fillingpressure. There was moderate concentric hypertrophy of the left ventricle. Left ventricular wall motion was normal; there were no regional wall motion abnormalities. ?Right??Ventricle: The right ventricular cavity was normal in size. Right ventricular systolicfunction was normal. ?Left??Atrium: Left atrial cavity was moderately dilated. ?? NM Card Spect Pharm Mult Studies Complete on 11/15/21 at 11:20: ?Perfusion: There was a ??moderate intensity, medium sized predominantly reversible perfusion defect in the mid anterior and apical anterior wall(s) and apex. This indicates medium ischemia in the LAD coronary territory. ?Function: Global LV function is normal. Post-stress ejection fraction is 57 %. There is was hypokinesis of the mid-apical anterior and apical wall . ?Baseline??ECG: Up to 3 mm precordial T wave inversions were noted at baseline. ?Stress ECG: Stress ECG was non-diagnostic due to baseline ST changes. ?? 1. Moderate ischemia in LAD territory 2. Intermediate risk study ?? Recommendations: Clinical correlation and medical therapy versus cardiac catheterization Assessment/Plan Assessment/Plan Concetta Sullivan is an 81 year old female patient with a history significant for HTN and GERD who was transferred from [facility] on 11/15/21 due to an elevated troponin (peaked on 11/12/21 at 5.21), T wave inversions in the anterolateral leads, and a NM Spect study on 11/15/21 showing a reversible perfusiondefect in th LAD territory. She is undergoing a left heart catheterization today with possible stenting. NSTEMI: SPECT MPI on 11/15/21 that showed a medium-sized predominantly reversible defect in the mid-apical anterior and apical segments, in the territory of the LAD. This correlates with the anterolateral T wave inversions on ECG. - LHC today - discontinue heparin gtt after LHC if stents are successfully placed - aspirin 81mg PO daily - add plavix after LHC if stents are placed - atorvastatin 40mg PO daily ?? HTN: - continue .NET ARCHITECT atenolol - continue .NET ARCHITECT losartan - amlodipine 5 mg daily ?? Hypothyroidism: - continue .NET ARCHITECT synthroid ?? Code status: Patient previously DNR/okay for trial of intubation. After discussing on 2 AM, she is amenable to switching her code status to FULL CODE for cardiac catheterization and 48 hours afterthe procedure. VTE Prophylaxis Seqential Compression Device and Ambulate, heparin gtt (switch to lovenox injections if stents are placed) Discharge Plan Pending clinical course/cardiac catheterization Agus Harman MS3 11/16/2021 8:31 Pager #[phone] I was present with the medical student for the history, exam, and medical decision making documented. I have edited the medical student note as appropriate. Beata Anthony MD Internal Medicine, PGY-3 pager [phone] 11/16/21 10:31 * Gaby Sheikh RN - 11/16/2021 0808 EST The following assessment was completed at [facility] prior to transfer to [facility]. CM will continue to follow. Gaby Sheikh RN [facility] #[id number] Initial Case Management/Social Work Assessment and Discharge Plan/Readmission Risk Assessment ?? REASON FOR ADMISSION: NSTEMI (non-ST elevated myocardial infarction) ([facility]) ([facility]) Patient understands reason for admission: Yes ?? PATIENT INFO VERIFIED: PCP, Contact Info, Address Type of housing (single family, condo, apartment, halfway, single room occupancy, [facility] funded hotel room, group custodial) - Single family one level home Who does the patient live with? Alone Does the patient have access to their own bedroom/bathroom/kitchen - or is it shared with others? Yes Name of housing complex (ex [facility], [facility], etc)- n/a Housing Authority/Managing Organization - n/a Community Care Providers (casework supervisor, [facility] nurse, etc) name and contact information- n/a ?? LIVING ARRANGEMENTS AND ACCESSIBILITY ISSUES: Living Arrangements: Alone, Home care staff Levels: 1 Stairs to enter: 0 Handicap access: None Bathroom located on bedroom level?: Yes ?? What in home social supports are available to the patient? Home care staff Is / care available? No ?? ADVANCED DIRECTIVES, POA &/or COLST IN PLACE: Healthcare Directive: Yes, patient has advance directive for healthcare treatment Type of Healthcare Directive: Durable power of business attorney for health care Copy in Chart: No, copy requested from family DIRECTIVES FOR FINANCES: Directive For Finances: No ?? TRANSPORTATION: Transportation: (Friend Brinda Pringle) Patient expects to be discharged to: Home Vs. Transfer to [facility] ?? CULTURAL, BAHAI and/or LANGUAGE factors affecting health care/discharge planning: Spiritual/Cultural Requests: None ?? Insurance Information: Medical Insurance: Yes Type of insurance: Medicare, Supplemental plan to Medicare Medicare type: A, B Supplemental: [facility] Referred to patient financial services: No ?? Nutrition: ?? DISCHARGE RISK ASSESSMENT: Total # selected above: ?? Tentative plan to address the risk of re-hospitalization for those at HIGH MODERATE RISK: ?? RAPT TOOL: Patient expects to be discharged to: Home Vs. Transfer to [facility] ?? SBIRT: ?? FUNCTIONAL STATUS: Activities patient requires assistance: Bathing, Age appropriate Assistive Devices: Walker, Wheelchair, Shower chair, Grab bars Walker type: Front wheel ?? COMMUNITY RESOURCES/SUPPORTS: Primary Care Provider: Nivia Tinsley PCP Verified: Specialists: None Type of Home Health Services: None DME Provider: Pharmacy: [id number] [address] [address] ?? [facility] [address] [place], [place] - [address] [facility] [address] [facility] [id number] ?? Home Health: Open to [facility] if needed over [facility] when given a choice Other: ?? POST HOSPITAL TRANSITION PLAN: Home vs. Transfer to [facility] Concetta confirms her PCP, demographics, pharmacy, and supports. ?? She states that she lives alone in the elder apartments in [place] as the [employer]. She shares that her apartment is all one level and she is fairly independent with her ADL's. She has privately paid caregivers through [employer] 4 hours daily 7 days a week. Concetta shares that she spends her day in her wheelchair but can independently transfer to it, sometimes she uses a wal ker to assist and does not have a transfer board. The caregivers assist her with housekeeping, ambulating with her walker, bathing, and occasionally groceries when her neighbor does not get them for her. She is able to dress and toilet herself along with put her meals together. ?? She does not have [facility] or [employer] and is open to [facility] on discharge over [facility] if home health is ordered. She think she has an AD filled out, one not found in registry or chart. Concetta states her daughter Melani is her agent. ?? On dc, she states her neighbor or a caregiver through [facility] will be her ride home, CM or she would need to call them. She may transfer to [facility] when a bed opens depending on her treatment choices with . JAYDE to follow. ?? Stacy Shah 11/12/2021 8:48 documented in this encounter H&P Notes * Beata Anthony MD - 11/15/2021 1708 EST Images from the original note were not included. Cardiology Admitting H&P Inpatient Admit Date: 11/15/21 Initial Observation Date (if different): 11/15/2021 Date of Service: 11/15/2021 PCP: Nivia Tinsley Code Status: Full Code Chief Complaint: Epigastric pain, and bilateral arm pain HPI: Concetta Sullivan is am 81 year old female patient with a history significant for HTN and GERD who came into [facility] on 11/12/21 with acute onset of epigastric pain and bilateral arm pain. She endorses 3 days of intermittent back pain prior to this, but decided to call EMS when she had one hour of unremitting epigastric pain and arm pain. She described the epigastric pain as indigestion. She received 325mg of aspiring en route to [facility] ED. Upon arrival at [facility], she was found to have an elevated troponin of 0.071. ECG showed T wave inversions in aVL and precordial leads. She was started on IV heparin. Her troponin peaked on 11/12/21 at 2.51. She was admitted to [facility] pending bed availability at [facility]. She remained stable during her admission at [facility]. She had a TTE on 11/14/21 that showed an LVEF of 58% and diastolic dysfuntion. She underwent a SPECT MPI on 11/15/21 that showed a medium-sized predominantly reversible defect in the mid- apical anterior and apical segments. She was transferred to [facility] on 11/15/21 for a left heart catheterization. She endorses mild shortness of breath currently, as well as dizziness last night. She denies any chest pain/pressure, abdominal pain, nausea, vomiting, or current dizziness or lightheadedness. PMH PSH Past Medical History: Diagnosis Date ??? 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 Cerebrovascular accident ([facility]) ([facility]) 09/02/2019 ??? Coronary artery disease involving [place] coronary artery of [place] heart without angina pectoris 09/02/2019 ??? Thalamic stroke ([facility]) ([facility]) 04/19/2020 Past Surgical History: Procedure Laterality Date ??? COLONOSCOPY 01/2007 moderate diffuse diverticuli discussed with Dr. Tapia and declines further testing Social History Family History Social History Tobacco Use ??? Smoking status: Never Smoker ??? Smokeless tobacco: Never Used Substance Use Topics ??? Alcohol use: Yes Family History Problem Relation Age of Onset [...] ??? Obesity Son ??? No Known Daughter Medications Medications Prior to Admission Medication Sig Dispense Refill Last Dose ??? aspirin chewable 81 mg tablet Take 1 Tablet by mouth daily. 30 Tablet 11 ??? atenoloL (TENORMIN) 25 mg tablet Take 1 Tablet by mouth daily. 30 Tablet 11 ??? atorvastatin (LIPITOR) 20 mg tablet 1 tab(s) orally once a day 30 Tablet 11 ??? carboxymethylcellulose sodium (ARTIFICIAL TEARS, [facility],) 1 % drops Apply 2 Drops to eye as needed(dry eye). 10 mL 11 ??? cholecalciferol, Vitamin D3, 25 mcg (1,000 unit) tablet Take 1 Tablet by mouth daily. 30 [id number] ??? fluticasone propionate (FLONASE) 50 mcg/actuation nasal spray Instill 1 [place] into both nostrils 2 times daily. 16 g 11 ??? hydrocortisone 1 % ointment Apply to [...] Abnormal gait and legally blind daily ??? omeprazole (PRILOSEC) 20 mg capsule Take 1 capsule by mouth daily. 30 capsule 11 ? ? vit A,C & I-elltux-vzpblbcu (OCUVITE) 1,000 unit-200 mg-60 unit-2 mg tablet Take 1 tab by mouth daily 30 Tablet 11 Allergies Allergies Allergen Reactions ??? Adhesive Tape-Silicones Rash ??? Enalapril Cough Cough and rash ??? Other - See Comments seasonal allergies?environmentanl? - sneezing ??? Simvastatin Per patient, abdominal and muscle pain. Review of Systems: A ten point review of systems was performed. Pertinent positives are listed above in HPI, all others are negative. Objective/Physical Exam: VS: Patient Vitals for the past 8 hrs: BP Heart Rate Resp SpO2 O2 Device 11/15/21 1630 (!) 155/75 65 BPM 18 97 % None Pain: Patient Vitals for the past 8 hrs: Numeric Pain Level (Scale 1-10) 11/15/21 1700 0 Exam: General: NAD, sitting in bed, pleasant HEENT: Anicteric sclera Lungs: clear to auscultation bilaterally Heart: regular rhythm and rate, normal S1 S2, no murmurs or rubs Abdomen: soft, non-tender, non-distended Extremities: warm and well perfused, no pedal edema, +2 pulses in all extremities Pressure Ulcer Present on admission? No Labs: Component Latest Ref Rng & Units 11/13/2021 11/15/2021 WBC 4.00 - 12.40 K/cmm 6.79 6.89 RBC 3.86 - 5.04 M/cmm 4.20 3.98 Hemoglobin 11.6 - 15.2 gm/dL 13.6 12.8 HCT 34.9 - 44.4 % 40.2 37.9 MCV 81 - 98 fl 96 95 MCH 26.7 - 33.3 pg 32.4 32.2 MCHC 32.1 - 35.9 gm/dL 33.8 33.8 RDW-CV <14.7 % 13.6 13.6 RDW-SD <50.4 fl 47.8 47.4 PLT 141 - 377 K/cmm 202 213 MPV 9.5 - 12.7 fl 10.7 10.8 Neutrophils % 58.5 50.6 Lymphocytes % 21.6 24.7 Monocytes % 10.5 11.2 Eosinophils % 8.4 11.8 Basophils % 0.7 1.0 Immature Grans % 0.3 0.7 ABS Neutrophils 2.20 - 8.85 K/cmm 3.97 3.49 ABS Lymphs 1.09 - 3.30 K/cmm 1.47 1.70 ABS Monocytes 0.10 - 0.80 K/cmm 0.71 0.77 ABS Eosinophils 0.03 - 0.61 K/cmm 0.57 0.81 (H) ABS Basophils 0.01 - 0.11 K/cmm 0.05 0.07 ABS Immature Grans 0.00 - 0.06 K/cmm 0.02 0.05 Type of Diff: Auto Auto Sodium 136 - 145 mmol/L 134 (L) 139 Potassium 3.5 - 5.0 mmol/L 4.2 4.3 Chloride 96 - 110 mmol/L 100 107 CO2 22 - 32 mmol/L 23 20 (L) Glucose, Serum 70 - 100 mg/dL 137 (H) 148 (H) BUN 10 - 26 mg/dL 26 19 Creatinine 0.52 - 1.04 mg/dL 0.89 0.77 GFR, Calculated >60 mL/min/1.73m2 60 (L) 72 Total Protein 6.3 - 8.2 g/dL 6.3 6.5 Albumin 3.4 - 4.9 g/dL 3.8 4.0 Total Alkaline Phosphatase 38 - 126 U/L 102 118 AST 15 - 46 U/L 38 35 ALT <35 U/L 25 35 (H) Bilirubin, Total <1.4 mg/dL 0.8 0.5 Calcium 8.5 - 10.5 mg/dL 9.0 9.2 ALBUMIN/GLOBULIN RATIO - PMC 1.0 - 2.5 1.5 1.6 Anion Gap 5 - 14 11 12 ECG on 11/12/21 at 01:14: TTE on 11/14/21 at 06:50 ??? Left??Ventricle: The left ventricular cavity was normal in size. The estimated left ventricularejection fraction by biplane Borja's method was 58 % (normal). Findings consistent with left ventricular diastolic dysfunction. Doppler parameters are consistent with elevated left atrial filling pressure. There was moderate concentric hypertrophy of the left ventricle. Left ventricular wall motion was normal; there were no regional wall motion abnormalities. ??? Right??Ventricle: The right ventricular cavity was normal in size. Right ventricular systolic function was normal. ??? Left??Atrium: Left atrial cavity was moderately dilated. NM Card Spect Pharm Mult Studies Complete on 11/15/21 at 11:20: ??? Perfusion: There was a moderate intensity, medium sized predominantly reversible perfusion defect in the mid anterior and apical anterior wall(s) and apex. This indicates medium ischemia in the LAD coronary territory. ??? Function: Global LV function is normal. Post-stress ejection fraction is 57 %. There is was hypokinesis of the mid-apical anterior and apical wall . ??? Baseline??ECG: Up to 3 mm precordial T wave inversions were noted at baseline. ??? Stress ECG: Stress ECG was non-diagnostic due to baseline ST changes. ?? 1. Moderate ischemia in LAD territory 2. Intermediate risk study ?? Recommendations: Clinical correlation and medical therapy versus cardiac catheterization eGFR calculation: eGFR Date Value Ref Range Status 11/15/2021 72 >60 mL/min/1.73m2 Final Assessment: Concetta Sullivan is am 81 year old female patient with a history significant for HTN andGERD, who presented to [facility] on 11/12/21 with acute onset of epigastric pain and bilateral arm pain, had an elevated troponin peaking at 2.51 with T wave inversions on the anterolateral leads, who was transferred to [facility] on 11/15/21 for a left heart catheterization for a presumed type I NSTEMI. She has remained stable during her hospital course at [facility]. Plan : NSTEMI: SPECT MPI on 11/15/21 that showed a medium-sized predominantly reversible defect in the mid-apical anterior and apical segments, in the territory of the LAD. This correlates with the anterolateral T wave inversions on ECG. - C tomorrow - heparin gtt - aspirin 81mg PO daily - atorvastatin 40mg PO daily HTN: - continue .NET ARCHITECT atenolol - continue .NET ARCHITECT losartan - add amlodipine 5 mg daily Hypothyroidism: - continue .NET ARCHITECT synthroid Code status: DNR/okay for trial of intubation (patient amenable to discussing code status further before proceeding with catheterization) VTE Prophylaxis: Seqential Compression Device and Ambulate, heparin gtt Discharge Plan: pending clinical course Agus Kimani 3 11/15/2021 18:34 Pager #[phone] I was present with the medical student for the history, exam, and medical decision making documented. I have edited the medical student note as appropriate. Beata Anthony MD Internal Medicine, PGY-3 pager [phone] 11/15/21 18:34 Associated attestation - Carlos Dolan MD - 11/16/2021 1342 EST I have seen and evaluated the patient on 09/15/22. I agree with the assessment and plan as outlinedby Dr. Anthony. Carlos Dolan MD [facility] documented in this encounter Procedure Notes * Molly Palm MD - 11/16/2021 1030 EST Cardiovascular Catheterization Laboratory Preliminary Report -- Catheterization Date of Service/Procedure: 11/16/2021 Attending Physician: Molly Palm MD Fellow: Nevin Shepard MD Pre-Procedure Diagnosis /NCDR Indication: Concetta Sullivan is a 81 y.o. year old female with ACS <= 24 hrs. Chest Pain Symptom Assessment: Typical Angina NCDR Indication for PCI: NSTE - ACS If NOT STEMI or NSTE-ACS, Syntax Score: High Heart Failure: No CHSA Clinical Frailty Scale: 6: Moderately Frail Prior Stress Testing? Yes, with a positive result. Is at moderate risk for cardiac mortality withinone year . Anesthesia: A moderate level of anesthesia/conscious sedation was used in addition to local anesthesia. Access: Right femoral artery and Right radial artery Procedure: She was brought to [facility] Cardiac Catheterization Laboratory for the procedure: Diagnostic coronary/graft angiography, Left heart cath and Coronary intervention (PCI). Closure: TR Band Post-Procedure Condition: The condition of the patient was Good. Complications: None. IV Contrast Total: 125 mL X-ray Dose: 289mGy Estimated Blood Loss: Minimal. Unless otherwise noted,there were no specimens removed, cultures obtained, or drains retained. Research Study: Patient is not enrolled in a research study. Diagnostic Cardiac Study Results Left main: MLI Left anterior descendin% prox with ruptured plaque Left circumflex: 100% mid with collaterals from RCA Right coronary artery: MLI Grafts: NA Left Ventriculography and Hemodynamic Results LVEDP 7mmHG Endovascular Study Results None Post-Procedure Diagnostic Conclusion: PCI is indicated. Interventional Procedure: Using standard technique, the prox LAD vessel was stented using a 3.5/ 26mm Leah SOCO dilated to 4.0mm. . Plan: See post-procedure orders. Aspirin 81mg PO daily. Clopidogrel 75 mg PO daily. At the completion of the procedure, the attending physician has explained the findings, therapies, any complications and treatment plan to the patient. With the patients consent, all family members and patient support persons who were present at the conclusion of the procedure have been notified ofthese results and treatment plans as well. Post Procedure Follow Up: Patient to follow up with Dr. Norris in 6 weeks Post Interventional Conclusion/Physician Disposition: (check one main category) Inpatient procedure, continue inpatient status (no procedural complication required) Molly Palm MD PagerNumber: [phone] 11/16/2021 10:30 * Gaby Medina RN - 11/15/20212029 EST Ultrasound dynamic guidance was used for peripheral line insertion. Name of newsperson: Gaby Medina RN vat LDAINFO BLOCK Peripheral IV Posterior;Right Hand (Active) Hand Dressing Change Due: Size (Gauge): Catheter Length (Inches): Catheter Brand: Orientation: Posterior;Right Site: Inserted by: Insertion attempts: Local Anesthetic: Skin Antisepsis: Removal Reason : Post Removal Assessment/Care: Size (Gauge): Catheter Length: IV Change Due: Orientation: Criteria to continue met? (chart all reasons) Continuous IV fluids;Other (must comment reason) 11/15/212028 Date Dressing Changed 11/15/21 11/15/212028 Dressing date clearly marked on PIV site? Yes 11/15/212028 Site Assessment Clean/Dry/Intact 11/15/212028 Line Status Flushed;Blood returned;Capped 11/15/212028 Dressing Status/Care Changed/New;Clean/Dry/Intact 11/15/212028 Dressing Type Transparent 11/15/212028 Patient response: Tolerated Well Patient education: done at the bedside GABY MEDINA RN 11/15/2021 documented in this encounter Miscellaneous Notes * Plan of Care - Bina Castellon RN - 11/17/2021 1607 EST Patient discharged home at this time with daughter via WC, all discharge paperwork and medications reveiwed and patient and daughter state understanding, all questions answered, iv discontinued. All belongings with patient, safety maintained. Problem: Sensory: Goal: Ability to compensate for vision loss will be supported Outcome: Completed Problem: High Fall Risk: Goal: Patient will Remain Free of Falls due to Altered Elimination Outcome: Completed Problem: Daily Care Plan Goals Goal: Care Plan Documentation Outcome: Completed Problem: Cardiac: Goal: Ability to maintain clinical measurements within defined limits will improve Outcome: Completed Goal: Complications related to the disease process, condition or treatment will be avoided or minimized Outcome: Completed * Plan of Care - Grey Connelly RN - 11/17/2021 0425 EST Problem: Daily Care Plan Goals Goal: Care Plan Documentation Outcome: Met This Shift Flowsheets (Taken 11/17/2021 0424) Area of Focus: Circulatory Status Goal This Shift: No bleeding Problem: Cardiac: Goal: Complications related to the disease process, condition or treatment will be avoided or minimized Outcome: Met This Shift D: Pt had LHC with PCI x 1 to LAD. Pt denied any chest discomfort or SOB after shift change. A: RN monitored right groin site and RRA site for hematoma/bleeding, tele for arrhythmias, CSMTs inaffected extremities, I/O for adequate hydration, and checked pt's orthostatic vital signs, assist pt use bedside commode.Kept bed alarm on. R: No bleeding at cath sites although small hematoma noted at RRA site. CSMT intact. Will continue to monitor/assess and document per protocol. * Plan of Care - Hallie Pro RN - 11/16/2021 0837 EST Data: Patient admitted for chief complaint of chest pain, now NSTEMI. Pt denies chest pain or shortness of breath. Is SR in the 60's on telemetry. SBP elevated this AM, 150's. Pt c/o urinary hesitancy, but able to void. Pt stood well and transferred self to stretcher for transport. Uses call light appropriately. Heparin infusing per protocol. Scheduled for [facility] today. Action: Telemetry monitored. VS/Neuros. Education. Hourly checks. Response: 1 SOCO to LAD. RRA site resolving hematoma, RFA site CDI no s/s of hematoma. HALLIE PRO RN 11/16/2021 8:48 Problem: Sensory: Goal: Ability to compensate for vision loss will be supported Outcome: Ongoing Problem: High Fall Risk: Goal: Patient will Remain Free of Falls due to Med. Side Effects Outcome: Ongoing Problem: High Fall Risk: Goal: Patient will Remain Free of Falls due to Altered Mobility Outcome: Ongoing * Plan of Care - Marcela Kingston RN - 11/16/2021 0412 EST Data: Assumed care of pt at 1900, pt admitted from OSH for NSTEMI. Stress test at OSH positive. Tele- SR with occ PVC's with HR in the 70's. Hep drip infusing at 18.5 units/kg/hr. Pt with urinary urgency and unable to produce a lot of urine once on the comode. Pt declined other UTI symptoms statingshe didn't think she had a UTI. Action: VS and tele monitored. Assisted pt OOB to wheelchair and stand pivot to the toilet. Heparinadjusted to 18 units/kg/hr per MD and pharmacist order.UFH level monitored. Response: VS and tele stable. UFH level therapeutic at 0.41. Pt resting comfortably in bed. Plan for [facility] today. Marcela Kingston RN 11/16/2021 4:12 Problem: Sensory: Goal: Ability to compensate for [...] Free of Falls due to Dizziness/Vertigo Outcome: Ongoing Problem: High Fall Risk: Goal: Patient will Remain Free of Falls due to Altered Mobility Outcome: Ongoing Problem: Daily Care Plan Goals Goal: Care Plan Documentation Outcome: Ongoing * Plan of Care - Darius Cole MD - 11/15/2021 6417 EST Brief Broadband Technician Addendum to Admitting H&P Please see H&P for further details regarding history and plan. Concetta Sullivan is an 81 year old female with history of hypertension, hyperlipidemia, prior stroke with functional limitation (mobilizes with wheelchair, lives alone and functionally independent with ADLs) and newly diagnosed type 2 diabetes who presents as a transfer from [facility] with NSTEMI. Initiallypresented to [facility] on 11/12/21 with chest pain, nausea and fatigue found to have ECG that initially showed sinus rhythm with anteroseptal QS complexes and anterolateral ischemic changes. Troponin dynamically cristiane to 2.5 (peaked), ECG showed persistent anterolateral ischemic changes. TTE showed normalLV systolic function (LVEF 55-60%), normal wall motion, diastolic dysfunction, normal RV function, no significant valvular disease. Managed with aspirin and heparin anticoagulation (no P2Y12 inhibitor given). Additional medicationsinclude atenolol 25mg daily, irbesartan 300mg daily, atorvastatin 80mg daily. Documentation suggests she initially considered medical therapy, but following further discussions with family and her care team decided to pursue invasive ischemic evaluation with left heart catheterization if recommended. COVID-19 test negative at [facility]. Prior to transfer underwent SPECT MPI on 11/15/21 that showed a medium-sized predominantly reversible defect in the mid-apical anterior and apical segments. Arrived to [facility] chest pain-free, hemodynamically stable without signs of decompensated heart failure or ventricular arrhythmias. She discussed with me her thoughts regarding medical management versus left heart catheterization in the context of her chronic medical conditions and desire to pursue therapies that have the potential to improve her quality of life. She tells me that she had thought about this and decided prior to coming that she would like to have a heart catheterization. We discussed the risks of left heart catheterization for someone like her, she expressed understanding and would like to proceed with the procedure if offered (consent has been provisionally obtained- but will need more discussion regarding code status kana-procedurally). Plan to continue aspirin, heparin, high intensity statin, atenolol and irbesartan. She was mildly hypertensive upon arrival and has had intermittent hypertension since admission, will plan to add amlodipine as I am concerned about increasing atenolol further given resting heart rate in the low 60s. Discussed with Dr. Mendoza Some of this note was transcribed with Squeakeeating software. While it was proofread, it may still contain unnoticed grammatical or word errors due to incorrect transcribing. Darius Cole MD Broadband Technician documented in this encounter Plan of Treatment Upcoming Encounters Date Type Department Care Team (Late st Contact Info) Description 06/11/2024 12:45 EDT Office Visit [facility] [address] [place], [place] [id number] Santiago Anthony MD [address] [place] [address], [address] [place] [address] 07/15/2024 10:45 EDT Office Visit [facility] [address] [place] [address] Gianfranco Flowers MD [address] [facility]- [address] [place] [address] documented as of this encounter Procedures Procedure Name Priority Date/Time Associated Diagnosis Comments ECG REPORT - SCANNED 11/21/2021 13:31 EST ECG REPORT - SCANNED 11/21/2021 13:31 EST POCT GLUCOSE, INTERFACED Routine 11/17/2021 12:11 EST POCT GLUCOSE, INTERFACED Routine 11/17/2021 8:03 EST COMPLETE BLOOD COUNT Routine 11/17/2021 6:39 EST MAGNESIUM Routine 11/17/2021 6:39 EST BASIC METABOLIC PANEL (BMP) Routine 11/17/2021 6:39 EST POCT GLUCOSE, INTERFACED Routine 11/16/2021 20:22 EST POCT GLUCOSE, INTERFACED Routine 11/16/2021 18:37 EST ECG REPORT - SCANNED 11/16/2021 15:26 EST EKG 12-LEAD Routine 11/16/2021 12:29 EST CARDIAC CATHETERIZATION Routine 11/16/19 10:26 EST NSTEMI (non-ST elevated myocardial infarction) (HCC-CMS) (HCC) POCT ACTIVATED CLOTTING TIME, KAOLIN ISTAT Routine 11/16/2021 10:19 EST POCT ACTIVATED CLOTTING TIME, KAOLIN ISTAT Routine 11/16/2021 10:01 EST HEPARIN LEVEL - UNFRACTIONATED HEPARIN STAT 11/16/2021 2:46 EST COMPLETE BLOOD COUNT Routine 11/16/2021 2:46 EST MAGNESIUM Routine 11/16/2021 2:46 EST BASIC METABOLIC PANEL (BMP) Routine 11/16/2021 2:46 EST POC US VAT LINE PLACEMENT Routine 11/15/2021 20:27 EST documented in this encounter Results * ECG REPORT - SCANNED (11/21/2021 13:31 EST) 11/21/2021 13:3 1 EST Scan 2 Powdered Metal Supervisor PROCEDURE/MINOR KAYLA GICAL ORDERABLES * ECG REPORT - SCANNED (11/21/2021 13:31 EST) 11/21/2021 13:3 1 EST Scan 2 Powdered Metal Supervisor PROCEDURE/MINOR KAYLA GICAL ORDERABLES * (ABNORMAL) POCT GLUCOSE, INTERFACED (11/17/2021 12:11 EST) Glucose, POC 133(H) 70 - 100 mg/dL 11/17/2021 12:12 EST [facility] HN LAB POC COMMENT (GLUCOSE) Test Performed by Nursing Services 11/17/2021 12:12 EST [facility] Blood CAPILLARY BLOOD / Unknown 11/17/2021 12:11 EST 11/17/2021 12:12 EST Beata Horton DNP POINT OF CARE TEST O RDERABLES Performing Organization Address [facility] Co de Phone Number [facility] [address] [place] [address] * (ABNORMAL) POCT GLUCOSE, INTERFACED (11/17/2021 8:03 EST) Glucose, POC 146(H) 70 - 100 mg/dL 11/17/2021 8:08 EST [facility] HN LAB POC COMMENT (GLUCOSE) Test Performed by Nursing Services 11/17/2021 8:08 EST [facility] Blood CAPILLARY BLOOD / Unknown 11/17/2021 8:03 EST 11/17/2021 8:08 EST Beata Horton DNP POINT OF CARE TEST O RDERABLES Performing Organization Address City/[facility] Co de Phone Number [facility] [address] [place] [address] * MAGNESIUM (11/17/2021 6:39 EST) Magnesium 1.9 1.7 - 2.8 mg/dL 11/17/2021 8:00 EST [facility] Blood VENOUS BLOOD / Unknown Venipuncture / Unknown 11/17/2021 6:39 EST 11/17/2021 7:25 EST Beata Anthony MD CHEMISTRY & BLOOD GA S ORDERABLES Performing Organization Address City/[facility]/ZIP Co de Phone Number [facility] [address] [place] [address] * COMPLETE BLOOD COUNT (11/17/2021 6:39 EST) WBC 7.93 4.00 - 12.40 K/cmm 11/17/2021 7:42 [facility] RBC 3.96 3.86 - 5.04 M/cmm 11/17/2021 7:42 [facility] Hemoglobin 12.8 11.6 - 15.2 gm/dL 11/17/2021 7:42 [facility] HCT 37.2 34.9 - 44.4 % 11/17/2021 7:42 [facility] MCV 94 81 - 98 fl 11/17/2021 7:42 [facility] MCH 32.3 26.7 - 33.3 pg 11/17/2021 7:42 [facility] MCHC 34.4 32.1 - 35.9 gm/dL 11/17/2021 7:42 [facility] RDW-CV 14.0 <14.7 % 11/17/2021 7:42 [facility] RDW-SD 48.0 <50.4 fl 11/17/2021 7:42 [facility] PLT 198 141 - 377 K/cmm 11/17/2021 7:42 [facility] MPV 10.8 9.5 - 12.7 fl 11/17/2021 7:42 [facility] Blood VENOUS BLOOD / Unknown Venipuncture / Unknown 11/17/2021 6:39 EST 11/17/2021 7:24 EST Beata Anthony MD HEMATOLOGY & PF4 ORD ERABLES [facility] [address] [place] [address] * (ABNORMAL) BASIC METABOLIC PANEL (BMP) (11/17/2021 6:39 EST) Sodium 135(L) 136 - 145 mmol/L 11/17/2021 8:00 [facility] Potassium 4.3 3.5 - 5.0 mmol/L 11/17/2021 8:00 [facility] Chloride 104 96 - 110 mmol/L 11/17/2021 8:00 [facility] CO2 Total 19(L) 22 - 32 mmol/L 11/17/2021 8:00 [facility] Anion Gap 12 5 - 14 11/17/2021 8:00 [facility] Glucose 140(H) 70 - 100 mg/dL 11/17/2021 8:00 [facility] Calcium 9.2 8.5 - 10.5 mg/dL 11/17/2021 8:00 [facility] BUN 16 10 - 26 mg/dL 11/17/2021 8:00 [facility] Creatinine 0.77 0.52 - 1.04 mg/dL 11/17/2021 8:00 [facility] eGFR 72 >60 mL/min/1.73 m2 11/17/2021 8:00 [facility] Blood VENOUS BLOOD / Unknown Venipuncture / Unknown 11/17/2021 6:39 EST 11/17/2021 7:25 EST Beata Anthony MD CHEMISTRY & BLOOD GA S ORDERABLES Performing Organization Address City/[facility]/ZIP Co de Phone Number [facility] [address] [place] [address] * (ABNORMAL) POCT GLUCOSE, INTERFACED (11/16/2021 20:22 EST) Glucose, POC 165(H) 70 - 100 mg/dL 11/16/2021 20:23 EST [facility] HN LAB POC COMMENT (GLUCOSE) Test Performed by Nursing Services 11/16/2021 20:23 EST [facility] Blood CAPILLARY BLOOD / Unknown 11/16/2021 20:22 EST 11/16/2021 20:23 EST Beata Horton DNP POINT OF CARE TEST O RDERABLES [facility] [address] [place] [address] * (ABNORMAL) POCT GLUCOSE, INTERFACED (11/16/2021 18:37 EST) Glucose, POC 115(H) 70 - 100 mg/dL 11/16/2021 18:42 EST [facility] HN LAB POC COMMENT (GLUCOSE) Test Performed by Nursing Services 11/16/2021 18:42 EST [facility] Blood CAPILLARY BLOOD / Unknown 11/16/2021 18:37 EST 11/16/2021 18:42 EST Beata Horton DNP POINT OF CARE TEST O RDERABLES Performing Organization Address [facility]/ZIP Co de Phone Number [facility] [address] [place] [address] * ECG REPORT - SCANNED (11/16/2021 15:26 EST) 11/16/2021 15:2 6 EST Scan 2 Powdered Metal Supervisor PROCEDURE/MINOR KAYLA GICAL ORDERABLES * EKG 12-LEAD (11/16/2021 12:29 EST) 11/16/2021 12:2 9 EST Narrative [facility] EKG - 11/16/2021 15:23 EST ? [facility] ? Test Date: ?2021-11-16 Pat Name: ? CONCETTA STONE ? Department: ?? [facility] ? Room: ? GR3602 Gender: ? Female ? Collision Center Manager: ?? [id number] : ?1940 ? Requested By: DOLAN TRACE C Order Number: [id number] ? Reading MD: ?? CARRINGTON MURRAY MD ? Measurements Intervals ?Burgin ? Rate: ? 51 ? P: ?55 WY: ? 252 ?QRS: ?-52 QRSD: ? 121 ?T: ?188 QT: ? 492 ? QTc: ?454 ? Interpretive Statements SINUS BRADYCARDIA WITH FIRST DEGREE AV BLOCK LEFT AXIS DEVIATION MODERATE INTRAVENTRICULAR CONDUCTION DELAY ST DEVIATION AND MARKED T-WAVE ABNORMALITY, CONSIDER ANTEROLATERAL ISCHEMIA ST DEVIATION AND MODERATE T-WAVE ABNORMALITY, CONSIDER INFERIOR ISCHEMIA Compared to ECG 11/12/2021 03:15:05 First degree AV block now present T-wave abnormality now present Sinus rhythm no longer present Myocardial infarct finding no longer present ST (T wave) deviation no longer present Possible ischemia still present I reviewed the tracing and have either agreed or edited the findings in this report. Electronically Signed On 11-16-2021 15:23:37 EST by CARRINGTON MURRAY MD. Procedure Note Carrington Murray MD - 11/16/2021 [facility] Test Date: 2021-11-16 Pat Name: CONCETTA SULLIVAN Department: [place] [address] Room: [facility] Gender: Female Collision Center Manager: [id number] : 1940 Requested By: MAGDALENO Torrez Order Number: [id number] Reading MD: CARRINGTON MURRAY MD Measurements Intervals [place] Rate: 51 P: 55 WY: 252 QRS: -52 QRSD: 121 T: 188 QT: 492 QTc: 454 Interpretive Statements SINUS BRADYCARDIA WITH FIRST DEGREE AV BLOCK LEFT AXIS DEVIATION MODERATE INTRAVENTRICULAR CONDUCTION DELAY ST DEVIATION AND MARKED T-WAVE ABNORMALITY, CONSIDER ANTEROLATERALISCHEMIA ST DEVIATION AND MODERATE T-WAVE ABNORMALITY, CONSIDER INFERIOR ISCHEMIA Compared to ECG 11/12/2021 03:15:05 First degree AV block now present T-wave abnormality now present Sinus rhythm no longer present Myocardial infarct finding no longer present ST (T wave) deviation no longer present Possible ischemia still present I reviewed the tracing and have either agreed or edited the findings inthis report. Electronically Signed On 11-16-2021 15:23:37 EST by CARRINGTON BUTLER. Trace C Magdaleno SOLER CARDIAC ECG ORDERABL ES [facility] EKG * LEFT HEART CATH (11/16/2021 10:26 EST) Anatomical Region Laterality Modality Model Builder Display 11/16/2021 8:53 EST Narrative 11/22/2021 14:06 EST Cardiology [address] [place] [address] Catheterization Laboratory Study Patient: Concetta Sullivan, Jered ? Study Date: ? 11/16/2021 ? Accession #: [id number] : ? 1940 Referring: Beata Anthony Diagnostic Attending: ??Molly Palm Interventional Attending: ?? Molly Palm Diagnostic Fellow: Nevin Shepard MD ATTESTATION: IDr. Nevin was the initial author of this report. Dr. Molly Palm was present and supervising for the entire procedure. I, Dr. Molly Palm have reviewed and agreed with the findings of this report. PROCEDURE PLAN: Based on the diagnostic study percutaneous coronary intervention is indicated. RESEARCH STUDY: Patient is not enrolled in any research studies. 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 SUMMARY: 1. HPI and indications: Chest pain. Dyspnea. Wmu-GC-oszrhjkl myocardial ?? infarction. Cerebrovascular disease. 2. LAD: Proximal vessel lesion: There is a 99%de emelina stenosis. There is ?? AMNA grade 3 flow (brisk flow) across the lesion. The distal vessel ?? supplies a large vascular territory. The lesion is a likely culprit ?? for the patient's anginal symptoms and an ACC/AHA type A low risk ?? lesion for intervention. The lesion was stented (see 1st lesion ?? intervention). Following intervention, the lesion has a residual ?? stenosis of 0%, an excellent angiographic appearance, and AMNA grade ?? 3 flow (brisk flow). 3. Left circumflex: The middle portion of the vessel has no antegrade ?? flow and fills from collaterals. Mid-vessel lesion: There is a 100% ?? stenosis. Moderate collateral flow from the right coronary. RECOMMENDATIONS: 1. The patient should undergo coronary percutaneous coronary ?? intervention. 2. ACC recommendation: PCI w/o planned CABG. 3. Add clopidogrel (Plavix). 4. Continue aspirin. HISTORY: Chest pain. ??Dyspnea. ??Eis-MT-hjltyabi myocardial infarction. Cerebrovascular disease. ??Risk factors: ??Hypertension. Diabetes mellitus; on therapy with diet. Dyslipidemia. LABS, PRIOR TESTS, PROCEDURES AND SURGERY: Serum creatinine (current admission) of 0.82 mg/dl. ??Hemoglobin (pre-procedure) of 12.5 g/dl. ??Stress myocardial perfusion imaging. Abnormal. STUDY DATA: Study status: ??Cardiac cath: urgent. Percutaneous coronary intervention: urgent. ??Patient status: ??Inpatient. ??Location: ??Catheterization laboratory. Sex: female. Patient is 81yr old. Height: 165.1cm. Weight: 69.8kg. BSA: 1.8m^2. Procedures performed: ?Right radial artery access. ?Left coronary angiography. ?Right femoral artery access. ?Right common femoral angiography. ?Lesion intervention: ?? Percutaneous intervention on the 99% de emelina stenosis in the proximal LAD. ?Balloon angioplasty. ?Stent placement. ?Balloon angioplasty. ANESTHESIA: Conscious sedation for pain control by cardiology staff. PROCEDURE: 1. Initial setup. The patient was brought to the laboratory in the ?? fasting state. A baseline ECG was recorded. Surface ECG leads, ?? automatic cuff blood pressure measurements, and pulse oximetric ?? signals were monitored. 2. Skin preparation. The planned puncture sites were prepped with ?? chlorhexidine and draped in the usual sterile manner. 3. Local anesthesia. Using 2% Lidocaine, local anesthetic was ?? administered to the access site(s). 4. Right radial artery access. A 6FR/.021 Gallaway Sheath Slender sheath ?? was advanced into the vessel. 5. Selective left coronary angiography. A 5 Fr Tig Catheter 4.0 catheter ?? was advanced into the left coronary vessel ostium under fluoroscopic ?? guidance. Contrast was injected. Images were obtained in multiple ?? projections. 6. Right femoral artery access. A 4 Fr Micropuncture Access Kit - Stiff ?? sheath was advanced into the vessel. 7. Selective right common femoral angiography, under fluoroscopic ?? guidance. A catheter was advanced into the right common femoral ?? artery. Contrast was injected by hand. Images were obtained. 8. Right femoral artery hemostasis. 6 FR Angioseal VIP was used at the ?? access site. 9. Right radial artery hemostasis. Mechanical compression was applied. 1st lesion intervention: Percutaneous intervention on the 99% de emelina stenosis in the proximal LAD. 1. Wire placement. A .014/180 Runthrough wire was placed across the ?? lesion. 2. Balloon angioplasty. A 2.5mm (D) x 12mm (L), Emerge RX balloon was ?? employed. The balloon was placed across the lesion and given a single ?? inflation with a maximum inflation pressure of 8atm. 3. Stent placement. A 3.5/ 26mm (L), leah stent was advanced across the ?? lesion and deployed with a single inflation and a maximum pressure of ?? 12atm. 4. Balloon angioplasty. A 4mm (D) x 15mm (L), NC EMERGE balloon was ?? employed. The balloon was placed across the lesion and given two ?? inflations with a maximum inflation pressure of 14atm. STUDY COMPLETION: The estimated blood loss was 10ml. All catheters inserted during the procedure were removed. The patient tolerated the procedure well and was discharged from the lab. There were no complications. ??Contrast: Isovue 125ml (total dose). ??Isovue 75ml (wasted). ??Fluoroscopy time: 16.9min. ??Fluoroscopy dose: ??28.9cGy. CORONARY ARTERIES: The coronary circulation is right dominant. Left main: ??Minor luminal irregularities. LAD: ??Proximal vessel lesion: There is a 99%de emelina stenosis. There is AMNA grade 3 flow (brisk flow) across the lesion. The distal vessel supplies a large vascular territory. The lesion is a likely culprit for the patient's anginal symptoms and an ACC/AHA type A low risk lesion for intervention. The lesion was stented (see 1st lesion intervention). Following intervention, the lesion has a residual stenosis of 0%, an excellent angiographic appearance, and AMNA grade 3 flow (brisk flow). There were no site complications. Left circumflex: The middle portion of the vessel has no antegrade flow and fills from collaterals. ??Mid-vessel lesion: There is a 100% stenosis. ??Moderate collateral flow from the right coronary. Right coronary: ??Minor luminal irregularities. HEMODYNAMICS: End diastolic pressure in the left ventricle is normal. Pressure measurements across the aortic valve show no evidence of stenosis. + + + Stage description ? Condition1:Condition 1 - + + + LV pressure s/ed ? 114/6 ? + + + Arterial pressure s/d (m) 115/30 (75) ? + + + * Electronically signed by Molly Palm MD 2021-11-22 14:05 Beata Anthony MD CARDIAC CATH ORDERAB LES * (ABNORMAL) POCT ACTIVATED CLOTTING TIME, KAOLIN ISTAT (11/16/2021 10:19 EST) Activated Clotting Time, Arterial, i-STAT 261(H) 74 - 137 Seconds 11/16/2021 10:34 EST [facility] Blood ARTERIAL BLOOD / Unknown 11/16/2021 10:19 EST 11/16/2021 10:34 EST Narrative [facility] - 11/16/2021 10:34 EST Therapeutic Interventional range is dependent upon patient population and procedure type Test Performed by Cardiology Carlos Dolan MD POINT OF CARE TEST O DURAN Performing Organization Address [facility] Co de Phone Number [facility] [address] [place] [address] * (ABNORMAL) POCT ACTIVATED CLOTTING TIME, KAOLIN ISTAT (11/16/2021 10:01 EST) Pathologist [facility] Activated Clotting Time, Arterial, i-STAT 225(H) 74 - 137 Seconds 11/16/2021 10:17 EST [facility] Blood ARTERIAL BLOOD / Unknown 11/16/2021 10:01 EST 11/16/2021 10:17 EST Narrative [facility] - 11/16/2021 10:17 EST Therapeutic Interventional range is dependent upon patient population and procedure type Test Performed by Cardiology Carlos Dolan MD POINT OF CARE TEST O DURAN Performing Organization Address [facility] Co de Phone Number [facility] [address] [place] [address] * MAGNESIUM (11/16/2021 2:46 EST) [facility] Magnesium 1.9 1.7 - 2.8 mg/dL 11/16/2021 3:25 EST [facility] Blood VENOUS BLOOD / Unknown Venipuncture / Unknown 11/16/2021 2:46 EST 11/16/2021 2:58 EST Beata Anthony MD CHEMISTRY & BLOOD GA S ORDERABLES Performing Organization Address [facility] Co de Phone Number [facility] [address] [place] [address] * COMPLETE BLOOD COUNT (11/16/2021 2:46 EST) [facility] WBC 7.45 4.00 - 12.40 K/cmm 11/16/2021 3:00 EST [facility] RBC 3.86 3.86 - 5.04 M/cmm 11/16/2021 3:00 [facility] Hemoglobin 12.5 11.6 - 15.2 gm/dL 11/16/2021 3:00 [facility] HCT 36.3 34.9 - 44.4 % 11/16/2021 3:00 [facility] MCV 94 81 - 98 fl 11/16/2021 3:00 [facility] MCH 32.4 26.7 - 33.3 pg 11/16/2021 3:00 [facility] MCHC 34.4 32.1 - 35.9 gm/dL 11/16/2021 3:00 [facility] RDW-CV 13.8 <14.7 % 11/16/2021 3:00 [facility] RDW-SD 47.1 <50.4 fl 11/16/2021 3:00 [facility] PLT 204 141 - 377 K/cmm 11/16/2021 3:00 [facility] MPV 11.1 9.5 - 12.7 fl 11/16/2021 3:00 [facility] Blood VENOUS BLOOD / Unknown Venipuncture / Unknown 11/16/2021 2:46 EST 11/16/2021 2:51 EST Beata Anthony MD HEMATOLOGY & PF4 ORD ERABLES [facility] [address] [place] [address] * (ABNORMAL) BASIC METABOLIC PANEL (BMP) (11/16/2021 2:46 EST) Sodium 135(L) 136 - 145 mmol/L 11/16/2021 3:25 EST [facility] Potassium 4.1 3.5 - 5.0 mmol/L 11/16/2021 3:25 [facility] Chloride 103 96 - 110 mmol/L 11/16/2021 3:25 [facility] CO2 Total 24 22 - 32 mmol/L 11/16/2021 3:25 [facility] Anion Gap 8 5 - 14 11/16/2021 3:25 EST [facility] Glucose 158(H) 70 - 100 mg/dL 11/16/2021 3:25 [facility] Calcium 9.2 8.5 - 10.5 mg/dL 11/16/2021 3:25 [facility] BUN 19 10 - 26 mg/dL 11/16/2021 3:25 EST [facility] Creatinine 0.82 0.52 - 1.04 mg/dL 11/16/2021 3:25 EST [facility] eGFR 66 >60 mL/min/1.73 m2 11/16/2021 3:25 EST [facility] Blood VENOUS BLOOD / Unknown Venipuncture / Unknown 11/16/2021 2:46 EST 11/16/2021 2:58 EST Beata Anthony MD CHEMISTRY & BLOOD GA S ORDERABLES Performing Organization Address [facility] Co de Phone Number [facility] [address] [place] [address] * HEPARIN LEVEL - UNFRACTIONATED HEPARIN (11/16/2021 2:46 EST) Heparin Level-UFH 0.41 Therapeutic Range: 0.30 - 0.70 IU/mL 11/16/2021 3:07 EST [facility] Comment:Unfractionated hepar in therapeutic range = 0.3-0.7 IU/ml - This test is not intended for monitoring direct Xa inhibitors, direct thrombin inhibitors, or fondaparinux.- Exogenous ATIII is NOT supplied in this assay. For unexpected or persistently low levels, consider measuring patient's ATIII level. Results will be overestimated in the presence of direct Xa inhibitors (rivaroxaban, apixaban, edoxaban). Blood VENOUS BLOOD / Unknown Venipuncture / Unknown 11/16/2021 2:46 EST 11/16/2021 2:52 EST Carlos Dolan MD HEMATOLOGY & PF4 ORD ERABLES Performing Organization Address [facility]/ZIP Co de Phone Number [facility] [address] [place] [address] * POC US VAT LINE PLACEMENT (11/15/2021 20:27 EST) Narrative 11/15/2021 20:27 EST This is a non-reportable exam. 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 Shuffling gait Abnormality of gait NSTEMI (non-ST elevated myocardial infarction) ([facility]) Acute myocardial infarction, subendocardial infarction, episode of care unspecified NSTEMI (non-ST elevated myocardial infarction) ([facility]) Acute myocardial infarction, subendocardial infarction, episode of care unspecified documented in this encounter Admitting Diagnoses Diagnosis NSTEMI (non-ST elevated myocardial infarction) ([facility]) Acute myocardial infarction, subendocardial infarction, episode of care unspecified documented in this encounter Administered Medications Inactive Administered Medications - up to 3 most recent administrations Medication Order MAR Action Action Date Dose Rate Site acetaminophen (TYLENOL) tablet 650 mg 650 mg, oral, EVERY 4 HOURS PRN, Starting on Sun11/16/21 at 1031, Until Sun11/17/21 at 1859, Pain, Routine, Release aspirin chewable tablet 81 mg 81 mg, oral, DAILY, First dose on Sun11/16/21 at 0900, Until Discontinued, Routine Given 11/17/2021 8:05 EST 81 mg Given 11/16/2021 8:01 EST 81 mg atorvastatin (LIPITOR) tablet 40 mg 40 mg, oral, AT BEDTIME, First dose on Sun11/15/21 at 2100, Until Discontinued, Routine Given 11/16/2021 20:18 EST 40 mg carvediloL (COREG) tablet 6.25 mg 6.25 mg, oral, 2 TIMES DAILY WITH BREAKFAST & DINNER, First dose on Sun11/17/21 at 0800, Until Discontinued, Routine Given 11/17/2021 8:06 EST 6.25 mg cholecalciferol (Vitamin D3) tablet 1,000 Units 1,000 Units, oral, DAILY, First dose on Sun11/16/21 at 0900, Until Discontinued, Routine Given 11/17/2021 8:04 EST 1,000 Units Given 11/16/2021 8:01 EST 1,000 Units clopidogreL (PLAVIX) 300 mg tablet 1 dose, Starting on Sun11/16/21 at 0949, Until Sun11/17/21 at 1859 clopidogreL (PLAVIX) tablet 75 mg 75 mg, oral, DAILY, First dose on Sun11/17/21 at 0900, Until Discontinued, Routine, Release Given 11/17/2021 8:05 EST 7 5 mg clopidogreL (PLAVIX) tablet PRN, Starting on Sun11/16/21 at 0955, Until Sun11/16/21 at 1026, Routine, Intraprocedure Given 11/16/2021 9:55 EST 300 mg clopidogreL (PLAVIX) tablet PRN, Starting on Sun11/16/21 at 1030, Until Sun11/16/21 at 1033, Routine, Intraprocedure Given 11/16/2021 10:30 EST 300 m g dextrose 50 % solution 12.5 g 12.5 g (25 mL), intravenous, PRN, Starting on Sun11/16/21 at 1411, Until Sun11/17/21 at 1859, Low Blood Sugar, Routine fentaNYL citrate (PF) injection PRN, Starting on Sun11/16/21 at 0903, Until Sun11/16/21 at 1026, Routine, Intraprocedure Given 11/16/2021 9:35 EST 25 mcg Given 11/16/2021 9:03 EST 25 mcg glucagon injection 1 mg 1 mg, intramuscular, PRN, Starting on Sun11/16/21 at 1411, Until Sun11/17/21 at 1859, Other, Low blood sugar, Routine heparin 1,000 unit/mL injection PRN, Starting on Sun11/16/21 at 0948, Until Sun11/16/21 at 1026, Routine, Intraprocedure Given 11/16/2021 10:04 EST 3,000 Units Given 11/16/2021 9:48 EST 4,000 Units insulin aspart U-100 (NOVOLOG FLEXPEN) injection subcutaneous, 3 TIMES DAILY WITH MEALS, First dose on Sun11/16/21 at 1700, Until Discontinued, Routine insulin aspart U-100 (NOVOLOG FLEXPEN) injection subcutaneous, AT BEDTIME, First dose on Sun11/16/21 at 2100, Until Discontinued, Routine levothyroxine (SYNTHROID) tablet 100 mcg 100 mcg, oral, DAILY BEFORE BREAKFAST, First dose on Sun11/16/21 at 0700, Until Discontinued, Routine Given 11/17/2021 6:28 EST 100 mcg Given 11/16/2021 6:59 EST 100 mcg lidocaine-EPINEPHrine 2 %-1:100,000 injection 5-10 mL 5-10 mL, intradermal, PRN, 1 dose, Starting on Sun11/16/21 at 1031, Until Sun11/17/21 at 1859, Other, to control bleeding , Routine, Release losartan (COZAAR) tablet 100 mg 100 mg, oral, DAILY, First dose on Sun11/16/21 at 0900, Until Discontinued, Routine Given 11/17/2021 8:05 EST 100 mg Given 11/16/2021 8:02 EST 100 mg melatonin tablet 3 mg 3 mg, oral, AT BEDTIME PRN, Starting on Sun11/15/21 at 1748, Until Sun11/17/21 at 1859, insomnia, Routine midazolam (PF) (VERSED) injection PRN, Starting on Sun11/16/21 at 0903, Until Sun11/16/21 at 1026, Routine, Intraprocedure Given 11/16/2021 9:37 EST 0.5 mg Given 11/16/2021 9:05 EST 0.5 mg Given 11/16/2021 9:03 EST 0.5 mg pantoprazole (PROTONIX) tablet 40 mg 40 mg, oral, DAILY, First dose on Sun11/16/21 at 0900, Until Discontinued, Routine Given 11/17/2021 8:04 EST 40 mg Given 11/16/2021 8:01 EST 40 mg polyethylene glycol 3350 (MIRALAX) packet 17 g 17 g, oral, DAILY PRN, Starting on Sun11/15/21 at 1748, Until Sun11/17/21 at 1859, Constipation, Routine senna (SENOKOT) tablet 2 Tablet 2 Tablet, oral, DAILY PRN, Starting on Sun11/15/21 at 1748, Until 11/17/22 at 1859, Constipation, Routine documented in this encounter Discontinued Medications Medication Sig Discontinue Reason Start Date End Da te omeprazole (PRILOSEC) 20 mg capsuleIndications:Gastro- esophageal reflux disease without esophagitis Take 1 capsule by mouth daily. 10/21/2021 11/17/2021 atorvastatin (LIPITOR) 20 mg tabletIndications:Mixed hyperlipidemia 1 tab(s) orally once a day 10/21/2021 11/17/2021 atenoloL (TENORMIN) 25 mg tabletIndications:Essentia l hypertension Take 1 Tablet by mouth daily. 10/21/2021 11/17/2021 documented as of this encounter Active and Recently Administered Medications Times are shown in EST. Scheduled Medication Order 11/15/2021 11/16/2021 11/17/2021 amLODIPine (NORVASC) tablet 5 mg (CANCELED) 5 mg, oral, DAILY, First dose on Sun11/15/21 at 2015, Until Discontinued, Routine 2125 (Not Given - Provider: Marcela Kingston RN - Reason: Patient/family refused - Comment: will take tomorrow per pt) 0802 (Given - Provider: Hallie Pro RN - Comment: 156/)0841 ([facility] Hold - Provider: Automatic Transfer Provider Hn - Reason: Patient off unit)1047 ([facility] Unhold - Provider: Automatic Transfer Provider Hn) aspirin chewable tablet 81 mg 81 mg, oral, DAILY, First dose on Sun11/16/21 at 0900, Until Discontinued, Routine 0801 (Given - Provider: Hallie Pro RN)0841 ([facility] Hold - Provider: Automatic Transfer Provider Hn - Reason: Patient off unit)1047 ([facility] Unhold - Provider: Automatic Transfer Provider Hn) 0805 (Given - Provider: Bina Castellon RN) atenoloL (TENORMIN) tablet 25 mg (CANCELED) 25 mg, oral, DAILY, First dose on Sun11/16/21 at 0900, Until Discontinued, Routine 0802 (Given - Provider: Hallie Pro RN - Comment: 156/70)0841 ([facility] Hold - Provider: Automatic Transfer Provider Hn - Reason: Patient off unit)1047 ([facility] Unhold - Provider: Automatic Transfer Provider Hn) atorvastatin (LIPITOR) tablet 40 mg 40 mg, oral, AT BEDTIME, First dose on Sun11/15/21 at 2100, Until Discontinued, Routine 2126 (Not Given - Provider: Marcela Kingston RN - Reason: Patient/family refused - Comment: pt will take tomorrow) 0841 (NOV Hold - Provider: Automatic Transfer Provider Hn - Reason: Patient off unit)1047 (NOV Unhold - Provider: Automatic Transfer Provider Hn)2017 (Given - Provider: Grey Connelly RN) carvediloL (COREG) tablet 6.25 mg 6.25 mg, oral, 2 TIMES DAILY WITH BREAKFAST & DINNER, First dose on Sun11/17/21 at 0800, Until Discontinued, Routine 0806 (Given - Provid er: Bina Castellon RN)1700 (Canceled Entry - Provider: Batch Job User Admin - Comment: Automatically canceled at discontinue of medication order) cholecalciferol (Vitamin D3) tablet 1,000 Units 1,000 Units, oral, DAILY, First dose on Sun11/16/21 at 0900, Until Discontinued, Routine 08 (Given - Provider: Hallie Pro RN)0841 (NOV Hold - Provider: Automatic Transfer Provider Hn - Reason: Patient off unit)1047 (NOV Unhold - Provider: Automatic Transfer Provider Hn) 0804 (Given - Provider: Bina Castellon RN) clopidogreL (PLAVIX) tablet 75 mg 75 mg, oral, DAILY, First dose on Sun11/17/21 at 0900, Until Discontinued, Routine, Release 0805 (Given - Provid er: Bina Castellon RN) fluticasone propionate (FLONASE) nasal spray 1 [place] 1 [place], nasal - both, 2 TIMES DAILY, First dose on Sun11/15/21 at 2100, Until Discontinued, Routine 2110 (Not Given - Provider: Marcela Kingston RN - Reason: Patient/family refused) 0841 (NOV Hold - Provider: Automatic Transfer Provider Hn - Reason: Patient off unit)0900 (Automatically Held - Provider: Automatic Transfer Provider Hn)1047 (NOV Unhold - Provider: Automatic Transfer Provider Hn)2014 (Not Given - Provider: Grey oCnnelly RN - Reason: Patient/family refused) 0846 (Not Given - Provider: Bina Castellon RN - Reason: Patient/family refused) insulin aspart U-100 (NOVOLOG FLEXPEN) injection subcutaneous, 3 TIMES DAILY WITH MEALS, First dose on Sun11/16/21 at 1700, Until Discontinued, Routine 1905 (Not Given - Provider: Grey Connelly RN - Reason: Order parameters not met) 0805 (Not Given - Provider: Bina Castellon RN - Reason: Order parameters not met)1212 (Not Given - Provider: Bina Castellon RN - Reason: Order parameters not met)1700 (Canceled Entry - Provider: Batch Job User Admin - Comment: Automatically canceled at discontinue of medication order) insulin aspart U-100 (NOVOLOG FLEXPEN) injection subcutaneous, AT BEDTIME, First dose on Sun11/16/21 at 2100, Until Discontinued, Routine 2021 (Not Given - Provider: Grey Connelly RN - Reason: Order parameters not met) levothyroxine (SYNTHROID) tablet 100 mcg 100 mcg, oral, DAILY BEFORE BREAKFAST, First dose on Sun11/16/21 at 0700, Until Discontinued, Routine 0659 (Given - Provider: Marcela Kingston RN)0841 (NOV Hold - Provider: Automatic Transfer Provider Hn - Reason: Patient off unit)1047 (NOV Unhold - Provider: Automatic Transfer Provider Hn) 0628 (Given - Provider: Grey Connelly RN) losartan (COZAAR) tablet 100 mg 100 mg, oral, DAILY, First dose on Sun11/16/21 at 0900, Until Discontinued, Routine 0802 (Given - Provider: Hallie Pro RN)0841 (NOV Hold - Provider: Automatic Transfer Provider Hn - Reason: Patient off unit)1047 (NOV Unhold - Provider: Automatic Transfer Provider Hn) 0805 (Given - Provider: Bina Castellon RN) pantoprazole (PROTONIX) tablet 40 mg 40 mg, oral, DAILY, First dose on Sun11/16/21 at 0900, Until Discontinued, Routine 0801 (Given - Provider: Hallie Pro RN)0841 (NOV Hold - Provider: Automatic Transfer Provider Hn - Reason: Patient off unit)1047 (NOV Unhold - Provider: Automatic Transfer Provider Hn) 0804 (Given - Provider: Bina Castellon, ANA) Continuous Medication Order 11/15/2021 11/16/2021 11/17/2021 heparin in 1/2 NS 25,000 unit/250 mL infusion (CANCELED) 18.5 Units/kg/hr ? 62.2 kg Adjusted weight (11.507 mL/hr, rounded to 11.5 mL/hr), intravenous, CONTINUOUS, Starting on Sun11/15/21 at 1700, Until Sun11/15/21 at 1749, Routine 1707 (New Bag - Provider: Bishnu Mariano, ANA) heparin in 10/02 NS 25,000 unit/250 mL infusion (CANCELED) 18 Units/kg/hr ? 62.1 kg Adjusted weight (11.178 mL/hr, rounded to 11 mL/hr), intravenous, CONTINUOUS, Starting on Sun11/15/21 at 1930, Until Sun11/16/21 at 1149, STAT 2108 (Rate Change - Provider: Marcela Kingston, ANA) 0828 (Paused - Provider: Nav Owens RN) sodium chloride 0.9 % (NS) infusion () at 75 mL/hr, intravenous, CONTINUOUS, Starting on Sun11/16/21 at 1100, Until Sun11/16/21 at 1510, Routine 1111 (New Bag - Provider: Hallie Pro RN) PRN Medication Order 11/15/2021 11/16/2021 11/17/2021 acetaminophen (TYLENOL) tablet 650 mg 650 mg, oral, EVERY 4 HOURS PRN, Starting on Sun11/16/21 at 1031, Until Sun11/17/21 at 1859, Pain, Routine, Release carboxymethylcellulose sodium (CELLUVISC) 1 % ophthalmic solution (PF) 1 Drop 1 Drop, both eyes, 2 TIMES DAILY PRN, Starting on Sun11/15/21 at 1835, Until Sun11/17/21 at 1859, Dry Eyes 0841 (NOV Hold - Provider: Automatic Transfer Provider Hn - Reason: Patient off unit)1047 (NOV Unhold - Provider: Automatic Transfer Provider Hn) clopidogreL (PLAVIX) tablet (CANCELED) PRN, Starting on Sun11/16/21 at 0955, Until Sun11/16/21 at 1026, Routine, Intraprocedure 0955 (Given - Provider: Shasta Taveras, ANA) clopidogreL (PLAVIX) tablet (CANCELED) PRN, Starting on Sun11/16/21 at 1030, Until Sun11/16/21 at 1033, Routine, Intraprocedure 1030 (Given - Provider: Shasta Taveras RN) dextrose 50 % solution 12.5 g 12.5 g (25 mL), intravenous, PRN, Starting on Sun11/16/21 at 1411, Until Sun11/17/21 at 1859, Low Blood Sugar, Routine fentaNYL citrate (PF) injection (CANCELED) PRN, Starting on Sun11/16/21 at 0903, Until Sun11/16/21 at 1026, Routine, Intraprocedure 0903 (Given - Provider: Shasta Taveras RN)0935 (Given - Provider: Shasta Taveras RN) glucagon injection 1 mg 1 mg, intramuscular, PRN, Starting on Sun11/16/21 at 1411, Until Sun11/17/21 at 1859, Other, Low blood sugar, Routine heparin 1,000 unit/mL injection (CANCELED) PRN, Starting on Sun11/16/21 at 0948, Until Sun11/16/21 at 1026, Routine, Intraprocedure 0948 (Given - Provider: Shasta Taveras RN)1004 (Given - Provider: Shasta Taveras RN) lidocaine-EPINEPHrine 2 %-1:100,000 injection 5-10 mL 5-10 mL, intradermal, PRN, 1 dose, Starting on Sun11/16/21 at 1031, Until Sun11/17/21 at 1859, Other, to control bleeding , Routine, Release melatonin tablet 3 mg 3 mg, oral, AT BEDTIME PRN, Starting on Sun11/15/21 at 1748, Until Sun11/17/21 at 1859, insomnia, Routine 0841 (NOV Hold - Provider: Automatic Transfer Provider Hn - Reason: Patient off unit)1047 (NOV Unhold - Provider: Automatic Transfer Provider Hn) midazolam (PF) (VERSED) injection (CANCELED) PRN, Starting on Sun11/16/21 at 0903, Until Sun11/16/21 at 1026, Routine, Intraprocedure 0903 (Given - Provider: Shasta Taveras RN)0905 (Given - Provider: Shasta Taveras RN)0937 (Given - Provider: Shasta Taveras RN) polyethylene glycol 3350 (MIRALAX) packet 17 g 17 g, oral, DAILY PRN, Starting on Sun11/15/21 at 1748, Until Karrie 11/17/21 at 1859, Constipation, Routine 0841 (NOV Hold - Provider: Automatic Transfer Provider Hn - Reason: Patient off unit)1047 (NOV Unhold - Provider: Automatic Transfer Provider Hn) senna (SENOKOT) tablet 2 Tablet 2 Tablet, oral, DAILY PRN, Starting on Sun11/15/21 at 1748, Until Karrie 11/17/21 at 1859, Constipation, Routine 0841 (NOV Hold - Provider: Automatic Transfer Provider Hn - Reason: Patient off unit)1047 (NOV Unhold - Provider: Automatic Transfer Provider Hn) No Frequency Medication Order 11/15/2021 11/16/2021 11/17/2021 clopidogreL (PLAVIX) 300 mg tablet 1 dose, Starting on Sun11/16/21 at 0949, Until Karrie 11/17/21 at 1859 documented in this encounter Orders Medications Ordered That Anant ht Not Have Been Administered Count Last Ordered Date First Ordered Date acetaminophen (TYLENOL) tablet 650 mg 3 11/15/2021 carvediloL (COREG) tablet 6.25 mg 1 022 clopidogreL (PLAVIX) 300 mg tablet 1 2021 clopidogreL (PLAVIX) tablet 75 mg 1 022 dextrose 50 % solution 12.5 g 2 11/16/2021 fentaNYL citrate (PF) 50 mcg/mL injection 1 11/16/2021 glucagon injection 1 mg 2 11/16/2021 heparin 1,000 unit/mL injection 2 insulin aspart U-100 (NOVOLO G FLEXPEN) injection 4 11/16/2021 lidocaine 20 mg/mL (2 %) injection 1 2021 lidocaine-EPINEPHrine 2 %-1: 100,000 injection 5-10 mL 1 11/16/2021 midazolam (PF) (VERSED) 1 mg/mL injection 1 11/16/2021 nitroglycerin 100 mcg/mL syringe 2 11/16/19 sodium chloride 0.9 % (NS) infusion 1 11/16 verapamil (ISOPTIN) 2.5 mg/mL injection 1 0 11/16/2021 amLODIPine (NORVASC) tablet 5 mg 1 11/15/19 22 aspirin chewable tablet 81 mg 2 11/15/2021 atenoloL (TENORMIN) tablet 25 mg 2 11/15/19 atorvastatin (LIPITOR) tablet 40 mg 1 11/15 atorvastatin (LIPITOR) tablet 80 mg 1 11/15 carboxymethylcellulose sodiu m (CELLUVISC) 1 % ophthalmic solution (PF) 1 Drop 1 11/15/2021 cholecalciferol (Vitamin D3) tablet 1,000 Units 1 11/15/2021 eye vitamin and mineral supp lement 60 mg-13.5 mg- 15 mg-2 mg-6 mg capsule 1 capsule 1 11/15/2021 fluticasone propionate (FLON ASE) nasal spray 1 [place] 2 11/15/2021 heparin 1,000 unit/mL inject ion 2,200 Units 1 11/15/2021 heparin 1,000 unit/mL inject ion 4,300 Units 1 11/15/2021 heparin in 1/ NS 25,000 uni t/250 mL infusion 2 11/15/2021 heparin in D5W 25,000 unit/2 50 mL(100 unit/mL) infusion 1 11/15/2021 heparin injection 2,150 Units 1 11/15/2021 heparin injection 4,350 Units 1 11/15/2021 irbesartan (AVAPRO) tablet 300 mg 1 022 levothyroxine (SYNTHROID) tablet 100 mcg 2 11/15/2021 lidocaine (PF) 10 mg/mL (1 % ) injection 2 mg 1 11/15/2021 losartan (COZAAR) tablet 100 mg 1 2 melatonin tablet 3 mg 2 11/15/2021 nitroglycerin (NITROSTAT) SL tablet 0.4 mg 1 11/15/2021 pantoprazole (PROTONIX) tablet 40 mg 2 11/01 polyethylene glycol 3350 (NH RALAX) packet 17 g 2 11/15/2021 ramelteon (ROZEREM) tablet 8 mg 1 2 senna (SENOKOT) tablet 2 Tablet 2 2 Nursing Count Last Ordered Date First Orde red Date PATIENT AT LOW RISK FOR VTE: RISK OF PHARMACOLOGIC PROPHYLAXIS OUTWEIG 1 11/16/2021 MEASURE WEIGHT 1 11/15/2021 VTE PHARMACOLOGIC PROPHYLAXI S CURRENTLY ORDERED OR ON ALTERNATIVE THER 1 11/15/2021 OT Count Last Ordered Date First Orde red Date OT EVALUATION AND TREAT 1 11/17/2021 PT Count Last Ordered Date First Orde red Date PT EVALUATION AND TREAT 1 11/17/2021 IV Count Last Ordered Date First Orde red Date IV REQUEST 1 11/15/2021 Admission Count Last Ordered Date First Orde red Date ADMIT TO INPATIENT 1 11/15/2021 Discharge Count Last Ordered Date First Orde red Date DISCHARGE PATIENT 1 11/17/2021 Case Request Count Last Ordered Date First Orde red Date CASE REQUEST HELMINTHOLOGIST 1 11/15/2021 documented in this encounter Care Teams Sales Clerk Supervisor Relationship Specialty Start Date End Date Nivia Tinsley MD [address] [place] [phone] PCP - General Family Medicine - Primary Care 08/27/19 Zheng Tapia MD [address] [place] [address] [address] [place] [address] Internal Medicine - Primary Care 09/01/19 Shazia Burks MD [address] [place] [address] Neurology 09/01/19 Tony Baron, FRANCK [address] [place] [phone] Historic Site Administrator 09/01/19 Keira Paniagua MD [address] [place] [address] [address] [place] [address] Cardiovascular Disease 09/06/20 Siva Perkins MD [address] [place] [phone] Neurology 09/06/20 documented as of this encounter
--- OUTSIDE RECORDS SUMMARY | 2024-04-29 18:22 | XMS_ITS | Encounter Summary ---
Author Organization [facility] Address [address] [place] [address] Care Team Providers Care Commercial Front Load Driver Name Role Phone Nivia Tinsley MD Primary Care Provider [phone] Zheng Tapia MD Unavailable Shazia Burks MD Unavailable [phone] Tony Baron OD Unavailable [phone] Keira Paniagua MD Unavailable [phone] Siva Perkins MD Unavailable [phone] Encounter Details Date Type Department Care Team (Latest Contact Info) Description 05/23/2021 Travel Social History Tobacco Use Types Packs/Day [...] or suspected to have Coronavirus / COVID-19? No / Unsure 05/23/2021 14:48 EDT documented as of this encounter Functional [...] No 09/09/2019 documented as of this encounter Plan of Treatment Upcoming Encounters Date Type Department Care Team (Late st Contact Info) Description 06/11/2024 12:45 EDT Office Visit [facility] Ophthalmology [facility] [address] [place] [address] Santiago Anthony MD [address] [place] [address], [facility] [address] [place] [address] 07/15/2024 10:45 EDT Office Visit [facility] [address] [facility] [place] [phone] Gianfranco Flowers MD [address] [place] [address] [address] [place] [phone] documented as of this encounter Visit Diagnoses Not on filedocumented in this encounter Care Teams Commercial Front Load Driver Relationship Specialty Start Date End Date Nivia Tinsley MD [address] [place] [address] PCP - General Family Medicine - Primary Care 08/27/19 Zheng Tapia MD [address] [place] [address] 7 [place] [address] Internal Medicine - Primary Care 09/01/19 Shazia Burks MD [address] [place] [address] Neurology 09/01/19 Tony Baron OD [address] [place] [phone] Spinning Mule Operator 09/01/19 Keira Paniagua MD [address] [place] [address] [address] [place] [address] Cardiovascular Disease 09/06/20 Siva Perkins MD [address] [facility] [place] [phone] Neurology 09/06/20 documented as of this encounter
--- OUTSIDE RECORDS SUMMARY | 2024-04-29 18:22 | XMS_ITS | Encounter Summary ---
Author Organization [facility] Address [address] [place] [address] Care Team Providers Care Finisher Fine Diamond Dies Name Role Phone Nivia Tinsley MD Primary Care Provider [phone] Zheng Tapia MD Unavailable Shazia Burks MD Unavailable [phone] Tony Baron OD Unavailable [phone] Keira Paniagua MD Unavailable [phone] Siva Perkins MD Unavailable [phone] Reason for Visit * Reason Onset Date Comments Gastroesophageal Reflux 05/04/2021 Encounter Details Date Type Department Care Team (Late st Contact Info) Description 05/04/2021 Telephone [facility] [address] [phone] Fay Dotson RN Gastroesophageal Reflux Social History Tobacco Use Types Packs/Day Years [...] Telephone Encounter - Fay Dotson RN - 05/05/2021 1009 EDT Patient has been scheduled for a visit with PCP on 05/23 for the symptoms she has been experiencing below- could likely be attributed to her diagnosis of GERD. Patient will call the office to reschedule if she is not able to make this appointment due to transportation * Telephone Encounter - Fay Dotson RN - 05/04/2021 0859 EDT Patient contacts the office stating she has been experiencing episodes of emesis/coughing up mucousin the morning. States that she was taking her pills on an empty stomach and it was happening more often when she was doing this. She has started eating her breakfast prior to taking her medications and states the episodes are less frequent but still do occur. It has occurred x2 this week. Patient reports she is still taking her levothyroxine on an empty stomach 30-45 minutes prior to taking her medications. Patient denies having any chest pain, SOB, or nausea prior to the emesis/coughing up mucous. Reports that she does not feel as though she has anything caught in her throat. Working on getting patient scheduled with her PCP for further work-up documented in this encounter Plan of Treatment Upcoming Encounters Date Type Department Care Team (Late st Contact Info) Description 06/11/2024 12:45 EDT Office Visit [facility] Ophthalmology - [address] [phone] Santiago Anthony MD [address] [place] [address], [facility] [address] [place] [address] 07/15/2024 10:45 EDT Office Visit [facility] [address] [place] [address] Gianfranco Flowers MD 130 [facility] [address] [place] [address] documented as of this encounter Visit Diagnoses Not on filedocumented in this encounter Care Teams Finisher Fine Diamond Dies Relationship Specialty Start Date End Date Nivia Tinsley MD [address] [place] [phone] PCP - General Family Medicine - Primary Care 08/27/19 Zheng Tapia MD [address] [place] [address] [address] [place] [phone] Internal Medicine - Primary Care 09/01/19 Shazia Burks MD [address] [place] [address] Neurology 09/01/19 Tony Baron OD [address] [place] [phone] Airplane Woodworker 09/01/19 Keira Paniagua MD [address] [place] [address] [address] [place] [address] Cardiovascular Disease 09/06/20 Siva Perkins MD [address] [facility] [place] [address] Neurology 09/06/20 documented as of this encounter
--- OUTSIDE RECORDS SUMMARY | 2024-04-29 18:22 | XMS_ITS | Encounter Summary ---
Author Organization [facility] Address [address] [place] [address] Care Team Providers Care Microeconomics Professor Name Role Phone Nivia Tinsley MD Primary Care Provider Zheng Tapia MD Unavailable Shazia Burks MD Unavailable [phone] Tony Baron OD Unavailable [phone] Keira Paniagua MD Unavailable [phone] Siva Perkins MD Unavailable [phone] Reason for Visit * Reason Onset Date Comments Medications Refill 09/20/2021 Encounter Details Date Type Department Care Team (Late st Contact Info) Description 09/20/2021 Telephone [facility] Medicine [facility] [address] [place], [place] [phone] Nivia Tinsley MD [address] [place], [place] [phone] Medications Refill Social History Tobacco Use Types [...] No 09/09/2019 documented as of this encounter Ordered Prescriptions Prescription Sig Dispensed Refills Start Date End Da te omeprazole (PRILOSEC) 20 mg capsuleIndications:Gastr o-esophageal reflux disease without esophagitis Take 1 capsule by mouth daily. 90 capsule 1 09/20/2021 10/21/2021 documented in this encounter Miscellaneous Notes * Telephone Encounter - Sherly Mei RN - 09/20/2021 1051 EST Rx(s) escribed to pharmacy. * Telephone Encounter - Nivia Tinsley MD - 09/20/2021 1026 EST Ok to restart 20 mg daily #90 with 1 RF. * Telephone Encounter - Lashanda Moffett MA - 09/20/2021 1013 EST Patient states that taking the Carafate was making her nauseated and made her vomit on a few occassions. She tried decreasing the dose but that didn't seem to help. Would like to go back on the omeprazole but would like a new Rx sent in if it's okay to restart this. She doesn't have any left. She felt she could tolerate this much better. If okay, she would like it sent in to [facility]. Please advise. documented in this encounter Plan of Treatment Upcoming Encounters Date Type Department Care Team (Late st Contact Info) Description 06/11/2024 12:45 EDT Office Visit [facility] - [place] [address] [place] [address] Santiago Anthony MD 111 [facility], [facility] 5 [place] [address] 07/15/2024 10:45 EDT Office Visit [facility] Clinic [address] [place] [address] Gianfranco Flowers MD 130 [facility] [address] [place] [address] documented as of this encounter Visit Diagnoses Diagnosis Gastro-esophageal reflux disease without esophagitis- Primary Esophageal reflux documented in this encounter Discontinued Medications Medication Sig Discontinue Reason Start Date End Da te omeprazole (PRILOSEC) 20 mg capsuleIndications:Gastr o-esophageal reflux disease without esophagitis Take 1 capsule by mouth daily. Reorder 05/23/2021 09/20/2021 documented as of this encounter Care Teams Microeconomics Professor Relationship Specialty Start Date End Date Nivia Tinsley MD [address] [place] [address] PCP - General Family Medicine - Primary Care 08/27/19 Zheng Tapia MD [address] [place] [address] [address] [place] [address] Internal Medicine - Primary Care 09/01/19 Shazia Burks MD [address] [place] [address] Neurology 09/01/19 Tony Baron OD [address] [place] [phone] Mortgage Advisor 09/01/19 Keira Paniagua MD [address] [place] [address] [place] [address] Cardiovascular Disease 09/06/20 Siva Perkins MD [address] [place] [phone] Neurology 09/06/20 documented as of this encounter
--- OUTSIDE RECORDS SUMMARY | 2024-04-29 18:22 | XMS_ITS | Encounter Summary ---
Author Organization [facility] Address [address] [place] [address] Care Team Providers Care Court Deputy Name Role Phone Nivia Tinsley MD Primary Care Provider Zheng Tapia MD Unavailable Shazia Burks MD Unavailable [phone] Tony Baron OD Unavailable [phone] Keira Paniagua MD Unavailable [phone] Siva Perkins MD Unavailable [phone] Reason for Visit * Reason Onset Date Comments Other 10/21/2021 Personal Emergen cy Response Systems Encounter Details Date Type Department Care Team (Late st Contact Info) Description 10/21/2021 Telephone [facility] - [address] [address] Cht Assistant Paralegal, [facility] Other ([employer]) Social History Tobacco Use Types Packs/Day Years [...] encounter Miscellaneous Notes * Telephone Encounter - Darleen Nichols, [facility] - 10/21/2021 1514 EST I phoned [employer] to discuss two local Personal Emergency Response Systems: [facility] , out of [place], [place], and [employer] [facility]. I've mailed [employer] brochures for both companies. documented in this encounter Plan of Treatment Upcoming Encounters Date Type Department Care Team (Late st Contact Info) Description 06/11/2024 12:45 EDT Office Visit [facility] Ophthalmology - [place] [address] [place], [place] [phone] Santiago Anthony MD 111 [facility] 5 [place] [address] 07/15/2024 10:45 EDT Office Visit [facility] [address] [place], [place] [phone] Gianfranco Flowers MD 130 [facility] [address] [place] [address] documented as of this encounter Visit Diagnoses Not on filedocumented in this encounter Care Teams Court Deputy Relationship Specialty Start Date End Date iNvia Tinsley MD [address] [place] [address] PCP - General Family Medicine - Primary Care 08/27/19 Zheng Tapia MD [address] [place] [address] [address] [place] [address] Internal Medicine - Primary Care 09/01/19 Shazia Burks MD [address] [place] [address] Neurology 09/01/19 Tony Baron OD [address] [place] [phone] Forestry Foreman 09/01/19 Keira Paniagua MD [address] [place] [address] Cardiovascular Disease 09/06/20 Siva Perkins MD [address] [facility] [place] [address] Neurology 09/06/20 documented as of this encounter
--- OUTSIDE RECORDS SUMMARY | 2024-04-29 18:22 | XMS_ITS | Encounter Summary ---
Author Organization [facility] Address [address] [place] [address] Care Team Providers Care Recreational Programs Director Name Role Phone Nivia Tinsley MD Primary Care Provider Zheng Tapia MD Unavailable Shazia Burks MD Unavailable [phone] Tony Baron OD Unavailable [phone] Keira Paniagua MD Unavailable [phone] Siva Perkins MD Unavailable [phone] Reason for Visit * Reason Comments Other GERD- in am's after breakfast; Rash on lower legs Extremity Weakness Rash Encounter Details Date Type Department Care Team (Late st Contact Info) Description 05/23/2021 15:00 EDT Office Visit Health system [facility] [address] [place] [address] Nivia Tinsley MD [address] [place] [address] Gastro-esophageal reflux disease without esophagitis (Primary Dx); Allergic rash present on examination; Weakness; Post-nasal drip Social History Tobacco Use Types Packs/Day Years [...] 14:48 EDT documented as of this encounter Last Filed Vital Signs Vital Sign Reading Time Taken Comments Blood Pressure 142/80 05/23/2021 1502 EDT Pulse 64 05/23/2021 1502 EDT Temperature - - Respiratory Rate - - Oxygen Saturation - - Inhaled Oxygen Concentration - - Weight 71.5 kg (157 lb 9.6 oz) 05/23/2021 1502 E DT Height 163.2 cm (5' 4.25) 05/23/2021 1502 EDT Body Mass Index 26.84 05/23/2021 1502 EDT documented in this encounter Functional Status [...] Dispensed Refills Start Date End Da te fluticasone propionate (FLONASE) 50 mcg/actuation nasal sprayIndications:Post-n emmy drip Instill 1 [place] into both nostrils 2 times daily. 16 g 2 05/23/2021 10/21/2021 hydrocortisone 1 % ointmentIndications:All ergic rash present on examination Apply to affected area TID PRN 56 g 05/23/2021 05/25/2021 sucralfate (CARAFATE) 1 gram tabletIndications:Gastr o-esophageal reflux disease without esophagitis Take 1 Tablet by mouth 4 times daily. 1/2 hour before meals and before bedtime 120 Tablet 05/23/2021 10/21/2021 omeprazole (PRILOSEC) 20 mg capsuleIndications:Carl ro-esophageal reflux disease without esophagitis Take 1 capsule by mouth daily. 30 capsule 05/23/2021 09/20/2021 documented in this encounter Progress Notes * Nivia Tinsley MD - 05/23/2021 1500 EDT Images from the original note were not included. 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 She has been cutting back on coffee, acidic foods. Worse in the AM, better with TUMS. She has taken Pepcid, and it helped. No NSAIDs. She also would like a referral for PT, so she can get out of her wheelchair. She has a rash on her mcfarlane. It is itchy and red. She has tried Hydrocortisone, and it helps. She also has had post nasal drip for a long time now. She has tried nasal steroids, and they help some. She is interested in seeing an ENT physician. I have reviewed patient's tobacco history: reports that she has never smoked. She has never used smokeless tobacco. I have reviewed current problem list and current medications. ROS: Review of Systems Gastrointestinal: Positive for heartburn. Skin: Positive for rash. Objective: Examination: Vitals: BP (!) 142/80 (BP Cuff Location: Left arm, BP Patient Position: Sitting) Pulse 64 Ht 163.2 cm (64.25) Wt 71.5 kg (157 lb 9.6 oz) BMI 26.84 kg/m?? Body mass index is 26.84 kg/m??. Physical Exam Constitutional: Appearance: She is well-developed. HENT: Head: Normocephalic and atraumatic. Eyes: Conjunctiva/sclera: Conjunctivae normal. Musculoskeletal: Cervical back: Neck supple. Skin: General: Skin is dry. Comments: Erythematous, blanching rash on the right, anterior mcfarlane. Psychiatric: Mood and Affect: Mood normal. Behavior: Behavior normal. Thought Content: Thought content normal. Judgment: Judgment normal. Data reviewed with patient (past results): Results for orders placed or performed in visit on 12/20/20 POCT HEMOGLOBIN A1C Result Value Ref Range Hemoglobin A1c, POC 6.4 (A) 5.7 % Assessment & Plan: Concetta was seen today for other, extremity weakness and rash. Diagnoses and all orders for this visit: Gastro-esophageal reflux disease without esophagitis - omeprazole (PRILOSEC) 20 mg capsule; Take 1 capsule by mouth daily. - sucralfate (CARAFATE) 1 gram tablet; Take 1 Tablet by mouth 4 times daily. 1/2 hour before meals and before bedtime Allergic rash present on examination - hydrocortisone 1 % ointment; Apply to affected area TID PRN Weakness - AMB CONS/FOLLOW UP PHYSICAL THERAPY; Future Post-nasal drip - fluticasone propionate (FLONASE) 50 mcg/actuation nasal spray; Instill 1 [place] into both nostrils2 times daily. - AMB CONS/FOLLOW UP ENT; Future Return in about 7 months (around 12/21/2021) for AWV. I spent a total of 30 minutes on the date of this encounter meeting with the patient and reviewing documentation/coordinating care as described in the above note. No procedures were performed at the time of the visit. Nivia Tinsley MD, FAAFP documented in this encounter Plan of Treatment Upcoming Encounters Date Type Department Care Team (Late st Contact Info) Description 06/11/2024 12:45 EDT Office Visit [facility] Ophthalmology - [address] [id number] Santiago Anthony MD [address] [place] [address], [address] [place] [address] 07/15/2024 10:45 EDT Office Visit Health system [facility] [address] [place] [address] Gianfranco Flowers MD [address] [facility]- [address] [place] [address] documented as of this encounter Visit Diagnoses Diagnosis Gastro-esophageal reflux disease without esophagitis- Primary Esophageal reflux Allergic rash present on examination Weakness Other malaise and fatigue Post-nasal drip Postnasal drip documented in this encounter Discontinued Medications Medication Sig Discontinue Reason Start Date End Da te nizatidine (AXID) 150 mg capsule Take 1 Cap by mouth at bedtime. 12/13/2020 05/23/2021 nitroGLYCERIN (NITROSTAT) 0.4 mg SL tablet Take 1 tab under the tongue every 5 minutes for persistent Chest pain, up to 3 doses. 07/12/2020 05/23/2021 documented as of this encounter Care Teams Recreational Programs Director Relationship Specialty Start Date End Date Nivia Tinsley MD [address] [place] [address] PCP - General Family Medicine - Primary Care 08/27/19 Zheng Tapia MD [address] [place] [address] 7 [place] [address] Internal Medicine - Primary Care 09/01/19 Shazia Burks MD [address] [place] [address] Neurology 09/01/19 Tony Baron OD [address] [place] [address] Manager Clinical Applications 09/01/19 Keira Paniagua MD [address] [place] [address] [address] [place] [address] Cardiovascular Disease 09/06/20 Siva Perkins MD [address] [place] [id number] Neurology 09/06/20 documented as of this encounter
--- OUTSIDE RECORDS SUMMARY | 2024-04-29 18:22 | XMS_ITS | Encounter Summary ---
Author Organization [facility] Address [address] [place] [address] Care Team Providers Care Informatics Nurse Specialist Name Role Phone Nivia Tinsley MD Primary Care Provider Zheng Tapia MD Unavailable Shazia Burks MD Unavailable [phone] Tony Baron OD Unavailable [phone] Keira Paniagua MD Unavailable [phone] Siva Perkins MD Unavailable [phone] Reason for Visit * Reason Onset Date Comments Pharmacy 10/19/2021 Encounter Details Date Type Department Care Team (Late st Contact Info) Description 10/19/2021 Telephone [facility] [address] [place], [place] [id number] Nivia Tinsley MD [address] [place] [address] Pharmacy Social History Tobacco Use [...] Dispensed Refills Start Date End Da te hydrocortisone 1 % ointmentIndications:Jose Martin rgic rash present on examination Apply to affected area TID PRN 56 g 10/21/2021 02/21/2022 aspirin chewable 81 mg tablet Take 1 Tablet by mouth daily. 30 Tablet 10/21/2021 12/06/2021 atenoloL (TENORMIN) 25 mg tabletIndications:Essent ial hypertension Take 1 Tablet by mouth daily. 30 Tablet 10/21/2021 11/17/2021 atorvastatin (LIPITOR) 20 mg tabletIndications:Mixed hyperlipidemia 1 tab(s) orally once a day 30 Tablet 10/21/2021 11/17/2021 carboxymethylcellulose sodium (ARTIFICIAL TEARS, [facility],) 1 % drops Apply 2 Drops to eye as needed (dry eye). 10 mL 10/21/2021 02/21/2022 cholecalciferol, Vitamin D3, 25 mcg (1,000 unit) tabletIndications:Vitami n D deficiency Take 1 Tablet by mouth daily. 30 Tablet 10/21/2021 12/06/2021 fluticasone propionate (FLONASE) 50 mcg/actuation nasal sprayIndications:Post-na janes drip Instill 1 [place] into both nostrils 2 times daily. 16 g 10/21/2021 04/10/2022 levothyroxine (SYNTHROID) 100 mcg tabletIndications:Other specified hypothyroidism Take 1 Tablet by mouth daily. 30 Tablet 10/21/2021 12/06/2021 losartan (COZAAR) 100 mg tabletIndications:Essent ial hypertension 1 tab(s) orally once a day 30 Tablet 10/21/2021 12/06/2021 omeprazole (PRILOSEC) 20 mg capsuleIndications:Gastr o-esophageal reflux disease without esophagitis Take 1 capsule by mouth daily. 30 capsule 10/21/2021 11/17/2021 vit A,C & X-jhptcw-cuvkcgmu (OCUVITE) 1,000 unit-200 mg-60 unit-2 mg tablet Take 1 tab by mouth daily 30 Tablet 10/21/2021 12/06/2021 documented in this encounter Miscellaneous Notes * Telephone Encounter - Marixa Kenny - 11/18/2021 0934 EST Pt daughter is calling back because pt wants to get bubble packs set up for [facility] [place] called meds on time. Pt needs a list of the medications, up to date. Pt's daughter states that pharmacy said we have to take over prescriptions from [facility] and give them the whole complete list to send [facility] bubble * Addendum Note - Sherly Kimbrough, ANA - 10/21/2021 1327 ESTAddended by: SHERLY KIMBROUGH on: 10/21/2021 13:27 Modules accepted: Orders * Telephone Encounter - Sherly Kimbrough RN - 10/21/2021 1327 EST Rxs escribed to [facility] for MOT bubble packs. * Telephone Encounter - Sherly Kimbrough RN - 10/19/2021 0946 EST I'm not sure what kind of background work needs to be done to set her up, but at least needs a current med reconciliation. Last rx for aspirin was 03/01/21, 90 days with 3 RF, so she should still have refills available at the pharmacy, doesn't need new rx yet. Please let me know when everything's set up for bubble packs and ready for me to send rxs. * Telephone Encounter - Avis Mckeon - 10/19/2021 0959 EST Pt calling to say she has to try using the bubble packs, So we have to get the prescriptions [facility] as they are the ones who put the packs up. Please let her know if we have questions?? ALSO needs a refill on the low dose asprin... documented in this encounter Plan of Treatment Upcoming Encounters Date Type Department Care Team (Late st Contact Info) Description 06/11/2024 12:45 EDT Office Visit [facility] Ophthalmology - [place] [address] [place], [place] [address] Santiago Anthony MD [address] [place] [address] [address] [place] [address] 07/15/2024 10:45 EDT Office Visit [facility] [address] [place] [address] Gianfranco Flowers MD [address] [facility] [address] [place] [address] documented as of this encounter Visit Diagnoses Diagnosis Gastro-esophageal reflux disease without esophagitis Esophageal reflux Essential hypertension Unspecified essential hypertension Other specified hypothyroidism Post-nasal drip Postnasal drip Vitamin D deficiency Unspecified vitamin D deficiency Mixed hyperlipidemia Allergic rash present on examination documented in this encounter Discontinued Medications Medication Sig Discontinue Reason Start Date End Da te sucralfate (CARAFATE) 1 gram tabletIndications:Gastro- esophageal reflux disease without esophagitis Take 1 Tablet by mouth 4 times daily. 1/2 hour before meals and before bedtime 05/23/2021 10/21/2021 carboxymethylcellulose sodium (ARTIFICIAL TEARS, [facility],) 1 % drops Apply 2 Drops to eye as needed (dry eye). Reorder 07/12/2020 10/21/2021 aspirin chewable 81 mg tablet Take 1 Tab by mouth daily. Reorder 03/01/2021 10/21/2021 atenoloL (TENORMIN) 25 mg tabletIndications:Essenti al hypertension Take 1 Tab by mouth daily. Reorder 03/01/2021 10/21/2021 atorvastatin (LIPITOR) 20 mg tabletIndications:Mixed hyperlipidemia 1 tab(s) orally once a day Reorder 03/01/2021 10/21/2021 cholecalciferol, Vitamin D3, 25 mcg (1,000 unit) tabletIndications:Vitamin D deficiency Take 1 Tab by mouth daily. Reorder 03/01/2021 10/21/2021 levothyroxine (SYNTHROID) 100 mcg tabletIndications:Other specified hypothyroidism Take 1 Tab by mouth daily. Reorder 03/01/2021 10/21/2021 losartan (COZAAR) 100 mg tabletIndications:Essenti al hypertension 1 tab(s) orally once a day Reorder 03/01/2021 10/21/2021 vit A,C & O-ycallr-jmnnrmju 1,000 unit-200 mg-60 unit-2 mg tablet Take 1 tab by mouth daily Reorder 04/01/2021 10/21/2021 omeprazole (PRILOSEC) 20 mg capsuleIndications:Gastro -esophageal reflux disease without esophagitis Take 1 capsule by mouth daily. Reorder 09/20/2021 10/21/2021 fluticasone propionate (FLONASE) 50 mcg/actuation nasal sprayIndications:Post-leo al drip Instill 1 [place] into both nostrils 2 times daily. Reorder 05/23/2021 10/21/2021 hydrocortisone 1 % ointmentIndications:Aller gic rash present on examination Apply to affected area TID PRN Reorder 05/25/2021 10/21/2021 documented as of this encounter Care Teams Informatics Nurse Specialist Relationship Specialty Start Date End Date Nivia Tinsley MD [address] [place] [id number] PCP - General Family Medicine - Primary Care 08/27/19 Zheng Tapia MD [address] [place] [address] [address] [place] [address] Internal Medicine - Primary Care 09/01/19 Shazia Burks MD [address] [place], [place] [address] Neurology 09/01/19 Tony Baron, FRANCK [address] [place] [address] Flexboard Operator 09/01/19 Keira Paniagua MD [address] [place] [address] Cardiovascular Disease 09/06/20 Siva Perkins MD [address] [facility] [place] [address] Neurology 09/06/20 documented as of this encounter
--- OUTSIDE RECORDS SUMMARY | 2024-04-29 18:22 | XMS_ITS | Encounter Summary ---
Author Organization [facility] Address [address] [place] [address] Care Team Providers Care Ep Tech Name Role Phone Nivia Tinsley MD Primary Care Provider Zheng Tapia MD Unavailable Shazia Burks MD Unavailable [phone] Tony Baron OD Unavailable [phone] Keira Paniagua MD Unavailable [phone] Siva Perkins MD Unavailable [phone] Reason for Visit * Reason Comments Chest Pain Patient reports back , arm and chest pain upon waking around midnight, states it wouldn't go away so she called EMS. EMS noted some ST elevation though not to the point meeting STEMI criteria, given ASA and x1 dose nitro which improved chest pain. Patient arrives A&Ox3, stating she has no pain att and wants to drink some water and go to sleep. Patient is vaccinated with no known sick contacts, * Auth/Cert Specialty Diagnoses / Procedures Referred By Lesa t Referred To Contact Diagnoses NSTEMI (non-ST elevated myocardial infarction) ([facility] Referral ID Status Reason Start Date Expiration Date Visits Re quested Visits Authorized [id number] 1 1 Encounter Details Date Type Department Care Team (Late st Contact Info) Description 11/12/2021 1:06 EST - 11/15/2021 15:34 EST Hospital Encounter [facility] Medical / Surgical Department [address] [place], [place] [address] Melba Umanzor MD [address] [facility], [facility], [address] [place] [address] Cecily Arguello MD [address] [place] [address] Katie Brand MD [address] [place], [place] [id number] NSTEMI (non-ST elevated myocardial infarction) (HCC-CMS) (HCC) (Primary Dx) Discharge Disposition: Another Health Care Institution Not Defined w/ Planned Readmission Social History Tobacco Use Types Packs/Day Years [...] Sign Reading Time Taken Comments Blood Pressure 167/77 11/15/2021 1136 EST Pulse - - Temperature 36.5 ??C (97.7 ??F) 11/15/2021 1136 EST Respiratory Rate 18 11/15/2021 1136 EST Oxygen Saturation 96% 11/15/2021 1136 EST Inhaled Oxygen Concentration - - Weight 69.9 kg (154 lb) 11/14/2021 0751 EST Height 165.1 cm (5' 5) 11/14/2021 0751 EST Body Mass Index 25.63 11/14/2021 0751 EST documented in this encounter Functional Status [...] Yes 11/12/2021 documented as of this encounter Discharge Summaries * Katie Brand MD - 11/15/2021 1534 EST HOSPITAL MEDICINE DISCHARGE SUMMARY Primary Care Provider: Nivia Tinsley Attending Physician: Katie Brand MD Admit Date: 11/12/21 Discharge Date: 11/15/21 Disposition (location): Transfer [facility] Condition at Discharge: Improved Reason for Admission (chief complaint): Chest Pain Principal/Final Diagnosis: NSTEMI (non-ST elevated myocardial infarction) ([facility]) ([facility]) Additional Problems Managed in the Hospital: Active Hospital Problems Diagnosis Date Noted *NSTEMI (non-ST elevated myocardial infarction) (HCC-CMS) ([facility]) 11/12/2021 Resolved Hospital Problems No resolved problems to display. Transition of care: [facility] Transition of Care report automatically routed to PCP office on discharge.Additional handoff communication performed via: Phone or Verbal Clinical Issues Needing Follow-up 1. Pertinent medication changes: ACS medications including heparin gtt 2. Recommended follow-up tests/procedures needed: Per [facility] Cardiology team 3. Anticoagulation on discharge: No 4. Changes to goals care at time of discharge (if applicable): None Hospital Course: Concetta Sullivan is a 81 y.o. female with a history significant for hypertension, remote CVA and macular degeneration presenting with NSTEMI. She has been accepted to [facility]. Per ED and admitting physician discussion with [facility] cardiology she hasbeen started on a heparin drip only. She did not have adjunct of clopidogrel or prasugrel initiated. Discussed with transfer center when her troponin increased. Currently awaiting bed. Today when appeared no bed still available did NM stress per our cards to risk stratify and possibly plan for outpatient cath. Bed then became available. Anticipate catheterization tomorrow. Principal Problem: NSTEMI (non-ST elevated myocardial infarction) ([facility]) ([facility]) Plan by problem NSTEMI -On discussion with cardiology and admission the recommendation was to begin heparin drip only -Her troponin has peaked at 2.5 and trended down today. -Continue heparin drip -Continue aspirin, statin, APPOINTMENT MANAGER beta-jose and ARB -Defer dual antiplatelet decision to cardiology at [facility] post catheterization as was not recommended at admission --Stress test shows intermediate risk lesion --transfer for cardiac cath Hypertension -Continue her APPOINTMENT MANAGER atenolol and irbesartan Hyperlipidemia -Continue her APPOINTMENT MANAGER atorvastatin but at increased intensity GERD -Continue her home omeprazole Hypothyroidism -I do not see a recent TSH, send level now -Continue her home levothyroxine New Diagnosis of DM --defer medical managemnt at this time --check am blood glucose daily, consider addition of iss and Q meal checks --Education with dietary, carb consistent diet Relevant Imaging/Procedures Performed: Results Pending at Discharge: Test results still pending from this admission None Upcoming Appointments Dec 26, 2021 11:00 ANNUAL WELLNESS MEDICARE with Nivia Tinsley MD [facility] (--) [address] [place] [id number] I personally spent > 30 minutes reviewing the chart, evaluating and examining the patient, counseling and preparing the patient for discharge, and coordinating follow up. Katie Brand MD 11/15/2021 18:09 documented in this encounter Medications at Time of Discharge Medication Sig Dispensed Refills Start Date End Date medical supply, miscellaneous ([employer]) with seat, basket under the seat and breaks as directed dx: Abnormal gait and legally blind daily 07/13/2017 aspirin chewable 81 mg tablet Take 1 Tablet by mouth daily. 30 Tablet 11 10/21/2021 12/06/2021 atenoloL (TENORMIN) 25 mg tabletIndications:Essent ial hypertension Take 1 Tablet by mouth daily. 30 Tablet 11 10/21/2021 11/17/2021 atorvastatin (LIPITOR) 20 mg tabletIndications:Mixed hyperlipidemia 1 tab(s) orally once a day 30 Tablet 11 10/21/2021 11/17/2021 atorvastatin (LIPITOR) 40 mg tablet Take 1 Tablet by mouth at bedtime. 90 Tablet 3 11/16/2021 12/06/2021 carboxymethylcellulose sodium (ARTIFICIAL TEARS, [facility],) 1 % drops Apply 2 Drops to eye as needed (dry eye). 10 mL 11 10/21/2021 02/21/2022 carvediloL (COREG) 6.25 mg tablet [...] mcg/actuation nasal sprayIndications:Post-na janes drip Instill 1 [place] into both nostrils 2 times daily. 16 g 11 10/21/2021 04/10/2022 hydrocortisone 1 % ointmentIndications:Jose Martin rgic rash present on examination Apply to affected area TID PRN 56 g 1 10/21/2021 02/21/2022 levothyroxine (SYNTHROID) 100 mcg tabletIndications:Other specified hypothyroidism Take 1 Tablet by mouth daily. 30 Tablet 10/21/2021 12/06/2021 losartan (COZAAR) 100 mg tabletIndications:Essent ial hypertension 1 tab(s) orally once a day 30 Tablet 11 10/21/2021 12/06/2021 omeprazole (PRILOSEC) 20 mg capsuleIndications:Gastr o-esophageal reflux disease without esophagitis Take 1 capsule by mouth daily. 30 capsule 10/21/2021 11/17/2021 pantoprazole (PROTONIX) 40 mg tablet Take 1 Tablet by mouth daily. 90 Tablet 3 11/17/2021 12/06/2021 vit A,C & H-bcdram-sfltesaj (OCUVITE) 1,000 unit-200 mg-60 unit-2 mg tablet Take 1 tab by mouth daily 30 Tablet 11 10/21/2021 12/06/2021 documented as of this encounter Discharge Disposition Disposition Code Departure Means Destination Another Health Care Institut ion Not Defined w/ Planned Readmission documented in this encounter Progress Notes * Dahiana Mai, ANA - 11/15/2021 1610 EST Nursing Discharge Note D: Patient noted with discharge orders to: [facility]. A: Reviewed discharge instructions with Patient Discharged at 1500. Belongings collected and sent with patient. Report called to [facility] at 1400. . R: Patient and Family verbalized understanding of discharge instructions and denied further questions. Dahiana Mai RN 11/15/2021 16:10 * Dahiana Mai RN - 11/15/2021 1413 EST Shift note: Npo maintained this a.m. heparin gtt infusing, 1150 units/hr. Denies chest discomfort. oob to commode. Transported via W/c for stress test. Upon returning to room, advised that bed available at [facility] for cardiac cath. Both pt and daughter aware of plan. Ate lunch, took meds. Report called. * Katia Swain - 11/15/2021 1402 EST Patient will be going to [facility] today as they were able to accept her. MD notified patients daughter regarding the transfer to [facility]. * Flory Medina RN - 11/14/2021 1855 EST Nsg: this rn assumed care of this patient at time of 0700. Pt alert and oriented to self and place,time at times, pt does get a little confused at times, pt does reorient easily. Fall prec in place and bed alarm is on. Pt has denied any pain, denied any chest pain or pressure, denied any arm pain.Pt oob to bedside commode with 2 assist, pt's legs are weak from previous cva and pt is unsteady. Pt voided on commode earlier today, pt has been incont with large amount urine x 3 this afternoon. incont care done and pt's brief changed. No open areas observed or noted on sacrum and coccyx. Pt has been turning and repositioning every 2 hours self and with assist. Lungs: diminished bases, pt does have some live. Tele showing afib with some pvcs. Also inverted t waves noted. Pt is on continuous pulse ox. Pt has been maintaining her 02 sats on room air. Pt taking and tolerating ccd diet and po fluids well. Pt has denied any nausea. Pt has denied any dizziness. Pt is on heparin drip. ufh came back this am at time of 0658 of 0.27. charge nurse aware. Heparin bolus given per heparin order set and heparin drip rate increased to 1150 units per hour. See emar for full info. All rate changes checked and confirmed with another rn. ufh this afternoon came back at 0.37. charge nurse aware. No rate change needed. ufh ordered for tomorrow am at time of 0600. Charge nurse aware. Pt's nicandelaria [place] in to see pt today. Pt verbalized understanding of npo after midnight. Pt was moved to room 248a earlier this evening. Pt oriented to room. Pt has all of her things she needs on bedside table. Pt is legally blind. This rn this am had sign placed above her bed. Bed alarm is on at this time. Pt denies any pain. See flow sheets and emar for furthur information. * Gaby Wagoner - 11/14/2021 1618 EST Brief Nutrition Education Note Met with patient this afternoon to discuss diet modifications in setting of increased HgA1c. Patient reports not feeling too well, stating I have more holes in me than a colander. Happy to discuss her diet to get her mind off other things. Patient reports that she typically eats a very consistent diet. Avoids lots of bread and sweets. Eats the same breakfast daily of raisin bran, 1/2 Banana, milk, coffee cream and sugar. Other typical intakes include egg salad, cheese and crackers. She does not eat much meat. A friend from her jehovah's witness/neighbor has been doing her grocery shopping. She also has a privately paid caregiver through [employer] (4 hours per day, 7 days a week) and they assist with some meal preparation. We started to discuss some diet strategies (protein with every meal/snack). Discussion interrupted when patient needed to urgently use the bathroom. Alerted RN, as nursing staff are assisting patientwith transport to the bathroom. Will f/u tomorrow. Gaby Crooks MS, RD, CD, CNSC * Katie Brand MD - 11/14/2021 1449 EST [facility] Medicine service Progress Note Service Date: 11/14/2021 Admit Date: 11/12/2021 1:06 Reason for Admission: Concetta Sullivan is a 81 y.o. female admitted with a chief complaint of Chest pressureand now with a principal diagnosis of NSTEMI. 24 Hour Events: Troponin peaked at 2.5 and tredning down, no further chest pain Subjective Concetta reports that she feels better today. She does not have any further bubbling sensation in herchest. She denies chest pain or pressure. She denies palpitation. After further discussion with randall she has decided that she does not want to go through with a cardiac catheterization ratherthan medical management. She is in good spirits today. Hoping to get to procedure today if possible. Has been aware that she is pre-diabetic interested in talking to RD about diet changes she can make Review of Systems Negative chest pain, shortness breath, nausea, vomiting, headache. 12 point review systems completed the patient. Pertinent positives and negatives as per HPI above. Remainder negative. Objective VITALS: BP 133/59 (BP Cuff Location: Right arm, BP Patient Position: Sitting) Temp 36.8 ??C (98.3 ??F) (Oral) Resp 15 Ht 165.1 cm (65) Wt 69.9 kg (154 lb) SpO2 94% BMI 25.63 kg/m?? I&O: Intake/Output Summary (Last 24 hours) at 11/14/2021 1449 Last data filed at 11/14/2021 0924 Gross per 24 hour Intake 900 ml Output 680 ml Net 220 ml PHYSICAL EXAM Gen: Seated at bedside, NAD HEENT: MMM, no scleral icterus Neck: supple, no JVD CV: RRR, no m/r/g Pulm: CTAB, good air movement, no w/r/r Abd: +BS, soft, NTND, no HSM Extrem: warm and well perfused, no cyanosis or edema Psych: Alert and oriented x3 LABS No results for input(s): GLUCOSEFINGE in the last 72 hours. Lab Results Component Value Date HGBA1C 6.9 (H) 11/13/2021 Recent Labs 11/12/21 0141 11/13/21 0612 WBC 8.24 6.79 RBC 4.37 4.20 HGB 14.0 13.6 HCT 41.6 40.2 MCV 95 96 PLT 215 202 Recent Labs 11/12/21 0141 11/13/21 0612 NA 136 134* K 3.8 4.2 CL 103 100 CO2 20* 23 BUN 18 26 CREATININE 0.69 0.89 MG 1.7 2.0 Recent Labs 11/12/21 0141 11/13/21 0612 ALKPHOS 112 102 AST 29 38 ALT 24 25 TBIL 0.8 0.8 No results for input(s): PROTIME, PTT, INR in the last 72 hours. No results for input(s): PHISTAT, PCOISTAT, POISTAT, [id number], BEART, POCFIO2 in the last 72 hours. Recent Labs 11/12/21 1056 11/12/21 2234 11/13/21 06 TROPONINI 2.370* 2.510* 1.740* No results for input(s): LABSPEC, PHUR, GLUCOSEU, BILIRUBINUR, KETONES, BLOODU, PROTEINUR in the last 72 hours. MEDICATIONS SCHEDULED aspirin chewable, 81 mg, oral, DAILY atenoloL, 25 mg, oral, DAILY atorvastatin, 80 mg, oral, DAILY eye vitamin and mineral supplement, 1 capsule, oral, DAILY fluticasone propionate, 1 [place], nasal - both, BID irbesartan, 300 mg, oral, DAILY levothyroxine, 100 mcg, oral, DAILY pantoprazole, 40 mg, oral, DAILY BEFORE BREAKFAST PRN heparin, 70 Units/kg (Adjusted), PRN Or heparin, 35 Units/kg (Adjusted), PRN lidocaine (PF), 2 mg, PRN nitroglycerin, 0.4 mg, Q5 MINUTES PRN polyethylene glycol 3350, 17 g, Daily PRN ramelteon, 8 mg, AT BEDTIME PRN MICROBIOLOGY None NEW IMAGING No new imaging today Assessment Concetta Sullivan is a 81 y.o. female with a history significant for hypertension, remote CVA and macular degeneration presenting with NSTEMI. She has been accepted to [facility]. Per ED and admitting physician discussion with [facility] cardiology she hasbeen started on a heparin drip only. She did not have adjunct of clopidogrel or prasugrel initiated. Discussed with transfer center yesterday afternoon that her troponin increased. Currently awaitingbed. Anticipate catheterization tomorrow. Principal Problem: NSTEMI (non-ST elevated myocardial infarction) ([facility]) ([facility]) Plan by problem NSTEMI -On discussion with cardiology and admission the recommendation was to begin heparin drip only -Her troponin has peaked at 2.5 and trended down today. -Continue heparin drip -Continue aspirin, statin, APPOINTMENT MANAGER beta-jose and ARB -Defer dual antiplatelet decision to cardiology at [facility] post catheterization as was not recommended at admission Hypertension -Continue her APPOINTMENT MANAGER atenolol and irbesartan Hyperlipidemia -Continue her APPOINTMENT MANAGER atorvastatin but at increased intensity GERD -Continue her home omeprazole Hypothyroidism -I do not see a recent TSH, send level now -Continue her home levothyroxine New Diagnosis of DM --defer medical managemnt at this time --check am blood glucose daily, consider addition of iss and Q meal checks --Education with dietary, carb consistent diet Miscellaneous FEN: DIET CONSISTENT CARBOHYDRATE PPx: Heparin therapeutic drip, aspirin Code: Full Code Discharge Plan: Plan is to transfer to [facility] for cardiac catheterization Consults: Cardiology at [facility] Dr. Fiorella Palm I spent more than 25 minutes in direct floor time solely dedicated to caring for this patient todayincluding >50% of time spent in counseling and coordination of care. Time spent in review of themedical chart with the patient and her daughter Melani. Katie Brand MD 11/14/2021 14:49 * Katia Swain - 11/14/2021 1436 EST Sunday Note: Patient accepted at [facility] and is waiting for a bed at [facility]. No bed offers at this time. * Katie Brand MD - 11/13/2021 1528 EST [facility] Medicine service Progress Note Service Date: 11/13/2021 Admit Date: 11/12/2021 1:06 Reason for Admission: Concetta Sullivan is a 81 y.o. female admitted with a chief complaint of Chest pressureand now with a principal diagnosis of NSTEMI. 24 Hour Events: Troponin peaked at 2.5 and tredning down, no further chest pain Subjective Clear reports that she feels better today. She does not have any further bubbling sensation in her chest. She denies chest pain or pressure. She denies palpitation. After further discussion with her daughter she has decided that she does not want to go through with a cardiac catheterization rather than medical management. Review of Systems Negative chest pain, shortness breath, nausea, vomiting, headache. 12 point review systems completed the patient. Pertinent positives and negatives as per HPI above. Remainder negative. Objective VITALS: BP 136/71 Temp 36.4 ??C (97.5 ??F) (Oral) Resp 20 Ht 165.1 cm (65) Wt 69.9 kg (154 lb) SpO2 95% BMI 25.63 kg/m?? I&O: Intake/Output Summary (Last 24 hours) at 11/13/2021 1529 Last data filed at 11/13/2021 0507 Gross per 24 hour Intake -- Output 350 ml Net -350 ml PHYSICAL EXAM Gen: Seated at bedside, NAD HEENT: MMM, no scleral icterus Neck: supple, no JVD CV: RRR, no m/r/g Pulm: CTAB, good air movement, no w/r/r Abd: +BS, soft, NTND, no HSM Extrem: warm and well perfused, no cyanosis or edema Psych: Alert and oriented x3 LABS No results for input(s): GLUCOSEFINGE in the last 72 hours. Lab Results Component Value Date HGBA1C 6.4 (A) 12/20/2020 Recent Labs 11/12/2114011/13/21611 WBC 8.24 6.79 RBC 4.37 4.20 HGB 14.0 13.6 HCT 41.6 40.2 MCV 95 96 PLT 215 202 Recent Labs 11/12/2114011/13/21611 NA 136 134* K 3.8 4.2 CL 103 100 CO2 20* 23 BUN 18 26 CREATININE 0.69 0.89 MG 1.7 2.0 Recent Labs 11/12/21 0141 11/13/21 0612 ALKPHOS 112 102 AST 29 38 ALT 24 25 TBIL 0.8 0.8 No results for input(s): PROTIME, PTT, INR in the last 72 hours. No results for input(s): PHISTAT, PCOISTAT, POISTAT, [id number], BEART, POCFIO2 in the last 72 hours. Recent Labs 11/12/21 1056 11/12/21 2234 11/13/21 0612 TROPONINI 2.370* 2.510* 1.740* No results for input(s): LABSPEC, PHUR, GLUCOSEU, BILIRUBINUR, KETONES, BLOODU, PROTEINUR in the last 72 hours. MEDICATIONS SCHEDULED aspirin chewable, 81 mg, oral, DAILY atenoloL, 25 mg, oral, DAILY atorvastatin, 80 mg, oral, DAILY eye vitamin and mineral supplement, 1 capsule, oral, DAILY fluticasone propionate, 1 [place], nasal - both, BID irbesartan, 300 mg, oral, DAILY levothyroxine, 100 mcg, oral, DAILY pantoprazole, 40 mg, oral, DAILY BEFORE BREAKFAST PRN heparin, 70 Units/kg (Adjusted), PRN Or heparin, 35 Units/kg (Adjusted), PRN lidocaine (PF), 2 mg, PRN nitroglycerin, 0.4 mg, Q5 MINUTES PRN polyethylene glycol 3350, 17 g, Daily PRN ramelteon, 8 mg, AT BEDTIME PRN MICROBIOLOGY None NEW IMAGING No new imaging today Assessment Concetta Sullivan is a 81 y.o. female with a history significant for hypertension, remote CVA and macular degeneration presenting with NSTEMI. She has been accepted to [facility]. Per ED and admitting physician discussion with [facility] cardiology she hasbeen started on a heparin drip only. She did not have adjunct of clopidogrel or prasugrel initiated. Discussed with transfer center yesterday afternoon that her troponin increased. Currently awaitingbed. Anticipate catheterization tomorrow. Principal Problem: NSTEMI (non-ST elevated myocardial infarction) ([facility] ([facility]) Plan by problem NSTEMI -On discussion with cardiology and admission the recommendation was to begin heparin drip only -Her troponin has peaked at 2.5 and trended down today. -Continue heparin drip -Continue aspirin, statin, APPOINTMENT MANAGER beta-jose and ARB -Defer dual antiplatelet decision to cardiology at [facility] post catheterization as was not recommended at admission Hypertension -Continue her APPOINTMENT MANAGER atenolol and irbesartan Hyperlipidemia -Continue her APPOINTMENT MANAGER atorvastatin but at increased intensity GERD -Continue her home omeprazole Hypothyroidism -I do not see a recent TSH, send level now -Continue her home levothyroxine Miscellaneous FEN: DIET REGULAR PPx: Heparin therapeutic drip, aspirin Code: Full Code Discharge Plan: Plan is to transfer to [facility] for cardiac catheterization Consults: Cardiology at [facility] Dr. Fiorella Palm I spent more than 25 minutes in direct floor time solely dedicated to caring for this patient todayincluding >50% of time spent in counseling and coordination of care. Time spent in review of themedical chart with the patient and her daughter Melani. Katie Brand MD 11/13/2021 15:29 * Katie Brand MD - 11/12/2021 1727 EST Brief update in plan of care Patient's troponin increased to 2/3, discussed with transfer center still no bed available. Plan isfor transfer when bed available. Patient is actually equivocal about transfer today, saying she would like to think about it before we send her as she is leaning towards medical management only. Had long talk with patient and her daughter Melani about risks/benefits and recommendation of cardiac cath as best test. She is still considering her options and would like to discuss transfer again when bed becomes available. Consider Palliative consult Sunday if she elects to stay here for medical management. Continue heparin gtt and usual medical management of NSTEMI. NPO after midnight. Trend troponin to peak. * Stacy Shah - 11/12/2021 0848 EST Initial Case Management/Social Work Assessment and Discharge Plan/Readmission Risk Assessment REASON FOR ADMISSION: NSTEMI (non-ST elevated myocardial infarction) (HCC-CMS) ([facility]) Patient understands reason for admission: Yes PATIENT INFO VERIFIED: PCP, Contact Info, Address Type of housing (single family, condo, apartment, prison, single room occupancy, [facility] funded hotel room, group nursing home) - Single family one level home Who does the patient live with? Alone Does the patient have access to their own bedroom/bathroom/kitchen - or is it shared with others? Yes Name of housing complex (ex [place] [facility], [facility], etc)- n/a Housing Authority/Managing Organization - n/a Community Care Providers (behavioral health case manager, [facility] nurse, etc) name and contact information- n/a LIVING ARRANGEMENTS AND ACCESSIBILITY ISSUES: Living Arrangements: Alone, Home care staff Levels: 1 Stairs to enter: 0 Handicap access: None Bathroom located on bedroom level?: Yes What in home social supports are available to the patient? Home care staff Is 24/7 care available? No ADVANCED DIRECTIVES, POA &/or COLST IN PLACE: Healthcare Directive: Yes, patient has advance directive for healthcare treatment Type of Healthcare Directive: Durable power of city attorney for health care Copy in Chart: No, copy requested from family DIRECTIVES FOR FINANCES: Directive For Finances: No TRANSPORTATION: Transportation: (Friend Brinda Pringle) Patient expects to be discharged to: Home Vs. Transfer to [facility] CULTURAL, BUDDHISM and/or LANGUAGE factors affecting health care/discharge planning: Spiritual/Cultural Requests: None Insurance Information: Medical Insurance: Yes Type of insurance: Medicare, Supplemental plan to Medicare Medicare type: A, B Supplemental: [facility] Referred to patient financial services: No Nutrition: DISCHARGE RISK ASSESSMENT: Total # selected above: Tentative plan to address the risk of re-hospitalization for those at HIGH MODERATE RISK: RAPT TOOL: Patient expects to be discharged to: Home Vs. Transfer to [facility] SBIRT: FUNCTIONAL STATUS: Activities patient requires assistance: Bathing, Age appropriate Assistive Devices: Walker, Wheelchair, Shower chair, Grab bars Walker type: Front wheel COMMUNITY RESOURCES/SUPPORTS: Primary Care Provider: Nivia Tinsley PCP Verified: Specialists: None Type of Home Health Services: None DME Provider: Pharmacy: [id number] [address] [address] [facility] [address] - [place], [place] - [address] [facility] [address] [facility] [address] Home Health: Open to [facility] if needed over [facility] when given a choice Other: POST HOSPITAL TRANSITION PLAN: Home vs. Transfer to [facility] Concetta confirms her PCP, demographics, pharmacy, and supports. She states that she lives alone in the elder apartments in [place] [facility]. She shares that her apartment is all [...] herself along with put her meals together. She does not have MOW or [employer] and is open to [facility] on discharge over [facility] if home health is ordered. She think she has an AD filled out, one not found in registry or chart. Concetta states her daughter Melani is her agent. On dc, she states her neighbor or a caregiver through [facility] will be her ride home, or she would need to call them. She may transfer to [facility] when a bed opens depending on her treatment choices with MD. DONOHUE to follow. Stacy Shah 11/12/2021 8:48 documented in this encounter H&P Notes * Cecily Arguello MD - 11/12/2021 0316 EST Medicine Admission History & Physical Exam Service Date: 11/12/2021 Admit Date: 11/12/2021 1:06 Primary Care Provider: Nivia Tinsley Chief Complaint: Chest Pain Principle Problem: NSTEMI SUBJECTIVE History of present illness: Concetta Sullivan is a 81 y.o. female who is currently wheelchair-bound secondary to a thalamic stroke with hypertension and has hypertension, hypothyroidism and GERD who presented for chest pain. She went to bed early the night of presentation because she was feeling particularly tired. She woke up from sleep due to pain. She had pain in her stomach back and down her arms along with with a burping sensation. She had associated minor nausea and diaphoresis. No vomiting. She is unsure how long the pain lasted, perhaps 15 minutes but she thought she might so she called EMS. She got into her wheelchair and rolled herself to the door to unlock the apartment door before they arrived. She was given 325 mg aspirin and nitroglycerin by EMS which improved her pain. She has been having intermittent substernal chest pain for a few days - she thought it was stomach pain. In the ED, initial vital signs 36.5 ??C, heart rate 87, blood pressure 144/86, oxygen saturation 92% on room air. CMP and CBC. Initial troponin 0 0.071. EKG showed T wave inversions in aVL and lateral leads. She was given a heparin bolus and started on a heparin gtt. [facility] for [facility] with the contingency to call back if her troponin was flat or down-trending. She had ongoing mild 3/10 pain in her right arm in the ED. She initially declined further treatment but was encouraged to try another nitroglycerin. She was admitted to the medicine service. Review of systems A 10 point review of systems was completed with pertinent positives and pertinent negative listed in the HPI, all other systems were negative. 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 She is wheelchair-bound secondary to a thalamic stroke. 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 Family history: Family History Problem Relation Age of Onset [...] ??? Obesity Son ??? No Known Daughter Current Facility-Administered Medications Medication Route Frequency ??? heparin in D5W 25,000 unit/250 mL(100 unit/mL) infusion intravenous CONTINUOUS ??? heparin injection 4,350 Units intravenous PRN Or ??? heparin injection 2,150 Units intravenous PRN Current Outpatient Medications Medication ??? aspirin chewable 81 mg tablet ??? atenoloL (TENORMIN) 25 mg tablet ??? atorvastatin (LIPITOR) 20 mg tablet ??? carboxymethylcellulose sodium (ARTIFICIAL TEARS, CMC,) 1 % drops ??? cholecalciferol, Vitamin D3, 25 mcg (1,000 unit) tablet ??? fluticasone propionate (FLONASE) 50 mcg/actuation nasal spray ??? hydrocortisone 1 % ointment ??? levothyroxine (SYNTHROID) 100 mcg tablet ??? losartan (COZAAR) 100 mg tablet ??? medical supply, miscellaneous (WALKER WHEELS ACCESSORY MISC) ??? omeprazole (PRILOSEC) 20 mg capsule ? ? vit A,C & R-ioojga-ssdxzeay (OCUVITE) 1,000 unit-200 mg-60 unit-2 mg tablet Allergies Allergen Reactions ??? Adhesive Tape-Silicones Rash ??? Other - See Comments seasonal allergies?environmentanl? - sneezing ??? Simvastatin Per patient, abdominal and muscle pain. OBJECTIVE Vitals Temp: [36.5 ??C (97.7 ??F)] , Heart Rate: [87 BPM] , Pulse: --, Resp: [20] , BP: (144)/(86) , SpO2:[92 %] , Numeric Pain Level (Scale 1-10): -- Weight: Weight : 72.4 kg (159 lb 9.8 oz) Body mass index is 26.56 kg/m??. Physical Exam GA: No apparent distress Lungs: CTAB Heart: RRR, no MRG Abd: Soft, NTND : No ramos Lower extremities: No edema, no asymmetry Skin: No rashes, WWP, a pressure ulcer assessment was not performed Neuro: Alert, PERRL, conjugate gaze, occasional stutter, no dysarthria, no facial asymmetry, horizontal nystagmus Psych: Calm, verbose MSK: Moving all limbs purposefully Labs I have personally reviewed Recent Labs 11/12/21 014 WBC 8.24 RBC 4.37 HGB 14.0 HCT 41.6 MCV 95 MCH 32.0 MCHC 33.7 PLT 215 NEUTROABS 5.99 Recent Labs 11/12/21 014 NA 136 K 3.8 CL 103 CO2 20* BUN 18 CREATININE 0.69 CALCIUM 8.9 MG 1.7 LABALBU 3.8 Recent Labs 11/12/21 014 TROPONINI 0.071* Recent Labs 11/12/21 014 TBIL 0.8 ALKPHOS 112 AST 29 ALT 24 Imaging: I have independently visualized images XR CHEST PORTABLE 1 VIEW Result Date: 11/12/2021 No acute findings. Prior imaging: Transthoracic echocardiogram 12/2019 1. Left ventricle: The cavity size was normal. Wall thickness was increased in a pattern of mild LVH. Systolic function was normal. The estimated ejection fraction was 60-65%. Wall motion was normal; there were no regional wall motion abnormalities. 2. Left atrium: The atrium was moderately to severely dilated. 3. Right ventricle: The cavity size was normal. Wall thickness was normal. Systolic function was normal. 4. Atrial septum: There appears to be a patent foramen ovale. Agitated saline contrast study showed a very small [id number]-kw-[id number] atrial level shunt, in the baseline state. 5. Pulmonary arteries: Pulmonary systolic pressure was at the upper limits of normal. EKG: Rate 79, normal sinus rhythm, left axis deviation, LVH with widened QRS, first degree AV block, TWI in V2-V6, I and aVL Microbiology: COVID-19 rt PCR negative on 11/12/21 ASSESSMENT Concetta Sullivan is a 81 y.o. female who is currently wheelchair-bound secondary to a thalamic stroke with hypertension and has hypertension, hypothyroidism, a recent diagnosis of GERD and a family history of heart disease who presented for chest pain and was found to have an NSTEMI with EKG showing ischemic changes. Her case has been discussed with [facility] cardiology and she has been accepted for transfer with the contingency to call back if her repeat troponin is unexpectedly flat or downtrending. Currently with minimal pain right arm pain. PLAN NSTEMI: - Status post aspirin 325mg, heparin bolus and gtt initiation - Monitor on telemetry - Oxygen therapy to maintain oxygen saturation >= 90% - Trend troponin until peak - Repeat EKG if escalating chest pain - Home aspirin 81mg daily - Home atorvastatin 20mg daily ordered as 80mg daily - Heparin gtt per cardiac indication protocol - Nitro 0.4mg SL q5min prn for chest pain up to 3 consecutive doses then consider nitro gtt if unrelieved - Home atenolol 25mg daily - NPO at midnight for potential intervention ([facility]) - On the list for transfer to [facility], call back if trop is flat or decreases - Follow up lipid profile and HA1c - Replete K+ to target >= 4.0, replete Mg to target >= 2.0 - Transthoracic echocardiogram HTN - -Home atenolol -Home ARB Hypothyroidism -Home levothyroxine GERD -Home PPI History of stroke - Home aspirin 81 mg daily - Home atorvastatin 20mg daily ordered as 80mg daily Diet: NPO VTE Prophylaxis: Heparin gtt for cardiac indication Discharge Plan: Home or self care Consults: [facility] Cardiology Admission Status: Inpatient. Anticipated duration of hospitalization is greater than two midnights due to NSTEMI. Code Status: Full - discussed with Concetta Sullivan that she would need to be Full Code for now if she were going to pursue a left heart catheterization, although she expressed some reservations because she wants to focus on quality of life she felt this was acceptable for now and she identified thather daughter was her power of city attorney and would be able to make decisions for her if she were not a ble to make decisions for herself A medicine reconciliation was completed at bedside based on Concetta's memory Cecily Arguello MD 11/12/2021 3:16 documented in this encounter ED Notes * Audrey Lott RN - 11/12/2021 0216 EST 12 Lead EKG Performed by Audrey Lott RN and shown to Melba Umanzor MD. * Linda Rg RN - 11/12/2021 0212 EST Linda Suarez RN, notified Melba Umanzor MD on 11/12/2021 at 2:12 of the following criticalvalue: Troponin 0.071 * Melba Umanzor MD - 11/12/2021 0131 EST Mode of Arrival:Ambulance ([place]) Primary Care Provider: Nivia Tinsley This patient received an evaluation and medical screening exam for emergent medical conditions at the [facility] on 11/12/2021 Chief Complaint Chest pain HPI Concetta Sullivan is a 81 y.o. female younger appearing than stated age, with PMH including htn, GERD, who presents to the ED for back pain, epigastric pain and bilateral arm pain. Patient says she has had 3 days of intermittent back pain slightly left of midline near the scapula. She does not feel thatit worsens or improves with any particular trigger such as movement or position. Tonight she was feeling in her normal state of health when she went to bed. She awakened approximately 1 hour prior toarrival in the emergency department with bilateral arm pain from both shoulders and feeling of epigastric pain. She was concerned that it was cardiac in nature because it went on for approximately 1 hour she called EMS. She was given 324 mg of aspirin by EMS as well as 1 sublingual nitro which she said improved her symptoms tremendously. She is not complaining of any pain at this time. Patient denies any recent fever, cough, shortness of breath, chest pain other than the epigastric pain, nausea, vomiting, diaphoresis, abdominal pain other than the epigastric pain, back pain other than the above- stated pain, diarrhea, constipation, dysuria. No numbness tingling weakness in any extremity. History was provided by: Patient Patient's pertinent PMH, FH, SH were reviewed and updated PRN. ROS A 10 point review of systems has been performed and is otherwise negative except as noted in the HPI. Physical Exam Vital Signs Temp: 36.5 ??C (97.7 ??F) Temp src: Oral Heart Rate: 87 BPM Resp: 20 SpO2: 92 % BP: (!) 144/86 Nursing notes and vital signs were reviewed. Constitutional: Well appearing in no acute distress. Does not appear uncomfortable at this time. Eyes: Pupils equal and reactive to light, no scleral icterus Mouth: Moist oral mucosa without apparent lesions Neck: Full ROM, no cervical LAD Heart: Strong peripheral pulses, no lower extremity edema. lungs: No Respiratory distress, symmetrical chest expansion. Abdomen: Soft, nontender, nondistended. No significant tenderness in the epigastrium where she was having the discomfort. Skin: No overt rashes, bruising, or lesions on exposed skin. No tenderness over the arms or shoulders. No difficulty moving Extremities: Moving all 4 extremities spontaneously, warm and well perfused. Neuro: Grossly neurologically intact with normal speech Psych: No agitation or overt thought disorder Laboratory Results Labs Reviewed COMPLETE BLOOD COUNT AND DIFFERENTIAL - Abnormal Result Value Status WBC 8.24 Final RBC 4.37 Final Hemoglobin 14.0 Final HCT 41.6 Final MCV 95 Final MCH 32.0 Final MCHC 33.7 Final RDW-CV 13.4 Final RDW-SD 46.6 Final PLT 215 Final MPV 10.7 Final Neutrophils 72.7 Final Lymphocytes 13.1 Final Monocytes 7.5 Final Eosinophils 5.6 Final Basophils 0.7 Final Immature Grans 0.4 Final Absolute Neutrophils 5.99 Final Absolute Lymphocytes 1.08 (*) Final Absolute Monocytes 0.62 Final Absolute Eosinophils 0.46 Final Absolute Basophils 0.06 Final Absolute Immature Grans 0.03 Final Type of Differential: Auto Final TROPONIN I - Abnormal Troponin I 0.071 (*) Final Narrative: The results of this assay can be falsely lowered due to the consumption of Biotin. COMPREHENSIVE METABOLIC PANEL (CMP) - Abnormal Sodium 136 Final Potassium 3.8 Final Chloride 103 Final CO2 Total 20 (*) Final Glucose 177 (*) Final BUN 18 Final Creatinine 0.69 Final eGFR 81 Final Total Protein 6.4 Final Albumin 3.8 Final Alkaline Phosphatase 112 Final AST 29 Final ALT 24 Final Bilirubin, Total 0.8 Final Calcium 8.9 Final Albumin/Globulin Ratio 1.5 Final Anion Gap 13 Final COVID-[address] [facility]TEST[facility] - Normal COVID-19 rt-PCR Result Negative Final MAGNESIUM - Normal Magnesium 1.7 Final D-DIMER - Normal D-Dimer <150 Final Narrative: Cutoff value for the exclusion of DVT and PE: 230 ng/mL D-dimer units. Any use of the age-adjusted cutoff value is a post-analytic modification of this FDA- approved test and is considered off-labeluse of the test result. COVID-19 TESTING ([facility], [facility], ) Performing Lab [facility] Hospital Lab Final HOLD BLUE TOP Hold Hold Final TROPONIN I Data Interpretation An EKG was obtained and independently interpreted: T wave inversions in aVL. Lots of artifact. Possible ST elevations in lead V2. No other signs of ischemia. T wave inversions are new compared to prior. 2 additional ekgs obtained showing consistent t wave inversion in avl and lateral leads. No signs of stemi. Laboratory results independently reviewed, significant for: troponin 0.071. D dimer negative. Imaging Results XR CHEST PORTABLE 1 VIEW (Final result) Result time 11/12/21 03:16:32 Final result Impression: No acute findings. THIS DOCUMENT HAS BEEN ELECTRONICALLY SIGNED BY KARTIK AN MD FOR ANY QUESTIONS OR CONCERNS REGARDING THIS REPORT PLEASE CALL [facility] AT [phone] Narrative: PROCEDURE INFORMATION: Exam: XR Chest Exam date and time: 11/12/2021 1:25 AM Age: 81 years old Clinical indication: Pain; Angina pectoris; Additional info: Chest pain TECHNIQUE: Imaging protocol: XR of the chest. Views: 1 view. COMPARISON: CR CHEST (PA LAT) 01/16/2020 11:48 AM FINDINGS: Lungs: Unremarkable. No consolidation. Pleural spaces: Unremarkable. No pleural effusion. No pneumothorax. Heart/Mediastinum: Unremarkable. No cardiomegaly. Bones/joints: Mild dextroscoliosis. Mild thoracic spondylosis. Procedures Procedures None Medical Decision Making Concetta Sullivan is a 81 y.o. female who presents to the ED for concerning symptoms including bilateralarm pain, epigastric pain, back pain. Patient's pain is resolved after nitro in route. First EKG showing T wave inversions that appear to be new in aVL. No signs of obvious ischemia. No STEMI equivalents at this time. Patient will benefit from serial troponins and cardiology evaluation in the morning if troponin is negative. If positive, will discuss with cardiology to determine if transfer is indicated without meeting ANTON/STEMI criteria. No indication that she is having a dissection given equal pulses, no neuro symptoms, significant improvement in pain. No indication of pericarditis. Given the bilateral arm pain unlikely pulmonary embolus. She does have saturations in the 92% range. Will get D-dimer. ED Course A medical screening was performed. Relevant Data as of Nov 12 033 Sat Nov 12, 2021 0224 Patient's troponin is 0.071. Her last bone 1 year ago was normal. Her story is concerning. Herrepeat EKG shows T wave inversions in lateral leads in addition to T wave inversions in aVL. We will start spoke with Dr. Casiano. And it seems like she most likely will need to be cath'd. Recommends call [facility] [ES] [phone] Marshall from cardiology at [facility]. Patient has been added to their list and we will likely will hear from them in about 24 hours for transfer for catheterization. We should notify them if the second troponin is not upward trending in which case transfer can be cancelled. [ES] Relevant Data User Index [ES] Melba Umanzor MD While under my care in the Emergency Department, the patient's pain was managed to an adequate level weighing risk vs. benefit of medication. Clinical Impression Final diagnoses: NSTEMI (non-ST elevated myocardial infarction) ([facility]) (HCC) Disposition Admitted The patient's pain was managed to an adequate level weighing risk vs. benefit of further medications. Any further pain treatment will be at the discretion of the provider following up with the patient based on their clinical assessment. Some of this note was transcribed with Jooob[employer]!ating software. While it was proofread, it may still contain unnoticed grammatical or word errors due to incorrect transcribing. * Audrey Lott RN - 11/12/2021 0130 EST 12 Lead EKG Performed by Audrey Lott RN and shown to Melba Umanzor MD. documented in this encounter Miscellaneous Notes * Plan of Care - Manisha Arzola RN - 11/15/2021 0637 EST Problem: High Fall Risk: Goal: Patient Will Remain Free from Fall-Related Injury Outcome: Met This Shift Problem: Cognitive: Goal: Mental status/cognition is maintained/returned to baseline Outcome: Met This Shift Problem: High Fall Risk: Goal: Patient Will Remain Free from Fall-Related Injury Outcome: Met This Shift Problem: Cognitive: Goal: Mental status/cognition is maintained/returned to baseline Outcome: Met This Shift Problem: Sensory: Goal: Ability to compensate for vision loss will be supported Outcome: Ongoing Problem: SKIN INTEGRITY Goal: Skin integrity will improve or be maintained Outcome: Ongoing Pt a&ox3, able to make needs known, no complaints of pain. Pt remains on heparin drip as ordered see mar. Pt remains on tele see tele documentation. Pt noted to be in 1st degree block, pt with noknown history of first degree block md aware no new orders. Pt remains on continuous pulse ox with some desats to upper 80's noted, recovers w/o interventions. Encouraged pt to reposition every two hours to prevent pressure injuries, pt declined protective meplix. Pt npo at 0000 except for morning med and small amount of water. No s/s of bleeding noted. See flow sheet for full assessment. * Plan of Care - Angela Price RN - 11/14/2021 0343 EST Problem: Daily Care Plan Goals Goal: Care Plan Documentation Outcome: Met This Shift Problem: High Fall Risk: Goal: Patient will Remain Free of Falls due to Altered Mobility Outcome: Met This Shift Problem: Cognitive: Goal: Mental status/cognition is maintained/returned to baseline Outcome: Ongoing Pt alert and oriented x3, intermittently confused. Denies pain this shift. Remains on tele. NPO since midnight. Uses wheelchiar at baseline, x1 assist to bedside commode. Unreiable to ring, bed alarmin place. * Plan of Care - Maribel Haywood RN - 11/13/2021 1641 EST Problem: High Fall Risk: Goal: Patient will Remain Free of Falls due to Altered Mobility Outcome: Ongoing Bed alarm engaged Pt min assist oob to commode Pt remaining free from falls * Plan of Care - Stacy Shah - 11/13/2021 0957 EST Cm Note: Per MD, [facility] has not called with an open bed. When speaking with the patient, she is unsure about whether she would still want intervention at [facility] or if she would stay here until she is medically stable. If she decides to not transfer to [facility] and is dc home, she is open to [facility] services and would need to work with CM for a ride home, either neighbor Brinda or caregivers through [facility]. * Plan of Care - Wilber Pelayo RN - 11/13/2021 0406 EST Problem: High Fall Risk: Goal: Patient will Remain Free of Falls due to Altered Mobility Outcome: Ongoing Problem: High Fall Risk: Goal: Patient Will Remain Free from Fall-Related Injury Outcome: Ongoing Problem: High Fall Risk: Goal: Patient will Remain Free of Falls due to Med. Side Effects Outcome: Ongoing Problem: High Fall Risk: Goal: Patient will Remain Free of Falls due to Altered Elimination Outcome: Ongoing Problem: Sensory: Goal: Ability to compensate for vision loss will be supported Outcome: Ongoing Pt AAOx3, pleasant and cooperative. Legally blind and independent , living on her own. Unsteady gait and requires assist x1 to BSC. Pt on continuous tele and Heparin drip at 9.5 ml/hr. Troponin levelincreased to 2.51, MD aware, no new orders. Pt currently NPO. Call ernst within reach, bed locked and in lowest position. Pt sleeping in bed, will continue to monitor. Wilber Pelayo RN 11/13/2021 4:06 * Plan of Care - Stacy Shah - 11/12/2021 0846 EST 11/12/21 0846 Medicare IM Notice IM notice status Patient received notification verbally and in writing while in hospital. IM notice given on admission? Yes * Plan of Care - Wilber Pelayo RN - 11/12/2021 0555 EST Problem: High Fall Risk: Goal: Patient will Remain Free of Falls due to Altered Mobility Outcome: Ongoing Problem: High Fall Risk: Goal: Patient Will Remain Free from Fall-Related Injury Outcome: Ongoing Problem: High Fall Risk: Goal: Patient will Remain Free of Falls due to Med. Side Effects Outcome: Ongoing Problem: High Fall Risk: Goal: Patient will Remain Free of Falls due to Altered Elimination Outcome: Ongoing Pt arrived to unit from ER AAOx3, admitted with NSTEMI. Heparin drip and potassium infusing. Pt denies SOB. On RA, continuous tele, and pt NPO. Pt tries to get up on own but is very unstable, considered a stand pivot assist. Bed locked, in lowest position with bed alarm activated. Wilber Pelayo RN 11/12/2021 5:56 documented in this encounter Plan of Treatment Upcoming Encounters Date Type Department Care Team (Late st Contact Info) Description 06/11/2024 12:45 EDT Office Visit [facility] - [place] [address] [place] [address] Santiago Anthony MD [address] [place] [address], [facility] [address] [place] [address] 07/15/2024 10:45 EDT Office Visit [facility] Cardiology Clinic [address] [place], [place] [address] Gianfranco Flowers MD [address] [facility] [address] [place] [address] documented as of this encounter Procedures Procedure Name Priority Date/Time Associated Diagnosis Comments NM CARD SPECT PHARM MULT STUDIES COMPLETE Routine 11/15/2021 11:20 EST TROPONIN I Routine 11/15/2021 7:03 EST HEPARIN LEVEL - UNFRACTIONATED HEPARIN STAT 11/15/2021 7:03 EST COMPLETE BLOOD COUNT AND DIFFERENTIAL Routine 11/15/2021 7:02 EST COMPREHENSIVE METABOLIC PANEL (CMP) Routine 11/15/2021 7:02 EST HEPARIN LEVEL - UNFRACTIONATED HEPARIN Routine 11/14/2021 15:10 EST TRANSTHORACIC ECHO (TTE) COMPLETE Routine 11/14/2021 6:50 EST HEPARIN LEVEL - UNFRACTIONATED HEPARIN STAT 11/14/2021 6:07 EST HEPARIN LEVEL - UNFRACTIONATED HEPARIN STAT 11/13/2021 14:17 EST TROPONIN I Routine 11/13/2021 6:12 EST HEPARIN LEVEL - UNFRACTIONATED HEPARIN STAT 11/13/2021 6:12 EST COMPLETE BLOOD COUNT AND DIFFERENTIAL Routine 11/13/2021 6:12 EST TSH Add-On 11/13/2021 6:12 EST MAGNESIUM Routine 11/13/2021 6:12 EST HEMOGLOBIN A1C Routine 11/13/2021 6:12 EST COMPREHENSIVE METABOLIC PANEL (CMP) Routine 11/13/2021 6:12 EST TROPONIN I Routine 11/12/2021 22:34 EST ECG REPORT - SCANNED 11/12/2021 20:05 EST ECG REPORT - SCANNED 11/12/2021 20:04 EST ECG REPORT - SCANNED 11/12/2021 20:00 EST TROPONIN I Routine 11/12/2021 10:56 EST HEPARIN LEVEL - UNFRACTIONATED HEPARIN STAT 11/12/2021 6:10 EST LIPID PROFILE (INCLUDES CHOLESTEROL, TRIGLYCERIDES, HDL, LDL) Routine 11/12/2021 6:07 EST TROPONIN I STAT 11/12/2021 4:34 EST EKG 12-LEAD STAT 11/12/2021 3:15 EST XR CHEST PORTABLE 1 VIEW STAT 11/12/2021 2:05 EST EKG 12-LEAD STAT 11/12/2021 2:01 EST ZZCOVID-19 TESTING ([facility], [facility]) Routine 11/12/2021 1:41 EST [facility]ZCOVID-19 [facility] (TESTING ONLY) Today 11/12/2021 1:41 EST HOLD BLUE TOP STAT 11/12/2021 1:41 EST TROPONIN I STAT 11/12/2021 1:41 EST D-DIMER STAT Add-on 11/12/2021 1:41 EST COMPLETE BLOOD COUNT AND DIFFERENTIAL STAT 11/12/2021 1:41 EST MAGNESIUM STAT 11/12/2021 1:41 EST COMPREHENSIVE METABOLIC PANEL (CMP) STAT 11/12/2021 1:41 EST EKG 12-LEAD STAT 11/12/2021 1:14 EST documented in this encounter Results * NM CARD SPECT PHARM MULT STUDIES COMPLETE (11/15/2021 11:20 EST) Target HR 137 bpm [facility] Nuc Stress EF 57 % [facility] Anatomical Region Laterality Modality Chest Nuclear Medicine Narrative 11/15/2021 12:11 EST ?Perfusion: There was a ??moderate intensity, medium [...] was non-diagnostic due to baseline ST changes. Moderate ischemia in LAD territory Intermediate risk study Recommendations: Clinical correlation and medical therapy versus cardiac catheterization Stress Function Comments Global LV function was normal. Post-stress ejection fraction was 57 %. There was hypokinesis of the mid-apical anterior and apical wall . Baseline ECG Up to 3 mm precordial T wave inversions were noted at baseline. Result ECG Stress ECG was non-diagnostic due to baseline ST changes. HPI and Indications History: 81 year old female with hx HTN and thalamic stroke admitted to [facility] 11/12/21 with back and arm pain. Relief with ASA and NTG. 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 Denies any SOB. Troponin peaked at 2.510 and is now downtrending. Currently pain free. Baseline EKG with T wave abnormalities and occasional PVC's. ECHO 01/18- EF 60-65%, no WMA, mild LVH, small PFO Patient Status Risk Factors Known family history of coronary artery disease, diabetes mellitus, hypertension and cerebral vascular disease. Medications ARBs, beta blockers, aspirin and statins. Supervising Physician Gianfranco Flowers MD supervised and was immediately available during the procedure. Perfusion Defect There was a moderate intensity, medium sized predominantly reversible perfusion defect in the mid anterior and apical anterior wall(s) and apex. This indicated medium ischemia in the LAD coronary territory. Image Protocol Myocardial perfusion imaging using SPECT/CT was performed. The study was a 1-day rest-stress study. Attenuation correction was used. The patient was imagined in the supine position. Images acquired at rest and post stress were processed and reviewed. Nuc Impression There was abnormal perfusion and normal contraction after pharmacological stress. Katie Brand MD CARDIAC NM ORDERAB LES * HEPARIN LEVEL - UNFRACTIONATED HEPARIN (11/15/2021 7:03 EST) Heparin Level-UFH 0.37 Therapeutic Range: 0.30 - 0.70 IU/mL 11/15/2021 8:[address] [facility] Comment:Unfractionated hepar in therapeutic range = 0.3-0.7 [...] VENOUS BLOOD / Unknown Venipuncture / Unknown 11/15/2021 7:03 EST 11/15/2021 7:21 EST Melba Umanzor MD HEMATOLOGY & PF4 O RDERABLES Performing Organization Address City/State/[facility] Co de Phone Number [facility] [address] [place] [address] * (ABNORMAL) TROPONIN I (11/15/2021 7:03 EST) Troponin I (ng/mL) 0.848(HH) <0.034 ng/mL 11/15/2021 8:[address] [facility] Blood VENOUS BLOOD / Unknown Venipuncture / Unknown 11/15/2021 7:03 EST 11/15/2021 7:[address] [facility] - 11/15/2021 8:02 EST The results of this assay can be falsely lowered due to the consumption of Biotin. Katie Brand MD CHEMISTRY & BLOOD GAS ORDERABLES [facility] [address] [place] [address] * (ABNORMAL) COMPREHENSIVE METABOLIC PANEL (CMP) (11/15/2021 7:02 EST) Sodium 139 136 - 145 mmol/L 11/15/2021 7:49 [facility] Potassium 4.3 3.5 - 5.0 mmol/L 11/15/2021 7:49 [facility] Chloride 107 96 - 110 mmol/L 11/15/2021 7:49 [facility] CO2 Total 20(L) 22 - 32 mmol/L 11/15/2021 7:49 [facility] Glucose 148(H) 70 - 100 mg/dL 11/15/2021 7:49 [facility] BUN 19 10 - 26 mg/dL 11/15/2021 7:49 [facility] Creatinine 0.77 0.52 - 1.04 mg/dL 11/15/2021 7:49 [facility] eGFR 72 >60 mL/min/1.7 3m2 11/15/2021 7:49 [facility] Total Protein 6.5 6.3 - 8.2 g/dL 11/15/2021 7:49 [facility] Albumin 4.0 3.4 - 4.9 g/dL 11/15/2021 7:49 [facility] Alkaline Phosphatase 118 38 - 126 U/L 11/15/2021 7:49 [facility] AST 35 15 - 46 U/L 11/15/2021 7:49 [facility] ALT 35(H) <35 U/L 11/15/2021 7:49 [facility] Bilirubin, Total 0.5 <1.4 mg/dL 11/15/19 7:49 [facility] Calcium 9.2 8.5 - 10.5 mg/dL 11/15/2021 7:49 [facility] Albumin/Globulin Ratio 1.6 1.0 - 2.5 11/15/2021 7:49 [facility] Anion Gap 12 5 - 14 11/15/2021 7:49 [facility] Blood VENOUS BLOOD / Unknown Venipuncture / Unknown 11/15/2021 7:02 EST 11/15/2021 7:21 EST Katie Brand MD CHEMISTRY & BLOOD GAS ORDERABLES Performing Organization Address City/State/[facility] Co de Phone Number [facility] [address] [place] [address] * (ABNORMAL) COMPLETE BLOOD COUNT AND DIFFERENTIAL (11/15/2021 7:02 EST) WBC 6.89 4.00 - 12.40 K/cmm 11/15/2021 7:26 [facility] RBC 3.98 3.86 - 5.04 M/cmm 11/15/2021 7:26 [facility] Hemoglobin 12.8 11.6 - 15.2 gm/dL 11/15/2021 7:26 [facility] HCT 37.9 34.9 - 44.4 % 11/15/2021 7:26 [facility] MCV 95 81 - 98 fl 11/15/2021 7:26 [facility] MCH 32.2 26.7 - 33.3 pg 11/15/2021 7:26 [facility] MCHC 33.8 32.1 - 35.9 gm/dL 11/15/2021 7:26 [facility] RDW-CV 13.6 <14.7 % 11/15/2021 7:26 [facility] RDW-SD 47.4 <50.4 fl 11/15/2021 7:26 [facility] PLT 213 141 - 377 K/cmm 11/15/2021 7:26 [facility] MPV 10.8 9.5 - 12.7 fl 11/15/2021 7:26 [facility] % Neutrophils 50.6 % 11/15/2021 7:26 [facility] % Lymphocytes 24.7 % 11/15/2021 7:26 [facility] % Monocytes 11.2 % 11/15/2021 7:26 [facility] % Eosinophils 11.8 % 11/15/2021 7:26 [facility] % Basophils 1.0 % 11/15/2021 7:26 [facility] % Immature Grans 0.7 % 11/15/19 7:26 [facility] Absolute Neutrophils 3.49 2.20 - 8.85 K/cmm 11/15/2021 7:26 [facility] Absolute Lymphocytes 1.70 1.09 - 3.30 K/cmm 11/15/2021 7:26 [facility] Absolute Monocytes 0.77 0.10 - 0.80 K/cmm 11/15/2021 7:26 [facility] Absolute Eosinophils 0.81(H) 0.03 - 0.61 K/cmm 11/15/2021 7:26 [facility] ABS Basophils 0.07 0.01 - 0.11 K/cmm 11/15/2021 7:26 [facility] Absolute Immature Grans 0.05 0.00 - 0.06 K/cmm 11/15/2021 7:26 [facility] Type of Differential: Auto 11/15/2021 7:26 [facility] Blood VENOUS BLOOD / Unknown Venipuncture / Unknown 11/15/2021 7:02 EST 11/15/2021 7:21 EST Katie Brand MD PACKAGES & DNA PRO BE ORDERABLES [facility] [address] [place] [address] * HEPARIN LEVEL - UNFRACTIONATED HEPARIN (11/14/2021 15:10 EST) Heparin Level-UFH 0.37 Therapeutic Range: 0.30 - 0.70 IU/mL 11/14/2021 15:39 EST [facility] Comment:Unfractionated hepar in therapeutic range = 0.3-0.7 [...] VENOUS BLOOD / Unknown Venipuncture / Unknown 11/14/2021 15:10 EST 11/14/2021 15:25 EST Katie Brand MD HEMATOLOGY & PF4 O RDERABLES [facility] [address] [place] [address] * (ABNORMAL) TRANSTHORACIC ECHO (TTE) COMPLETE W/DOPPLER W/CF NO CONTRAST (11/14/2021 6:50 EST) LA Atrial Length A2C 6.3 cm [facility] LA Atrial Area A4C 23.9 cm2 [facility] LA ID/bsa, A-P 2.0 cm/m2 [facility] PV PEAK VELOCITY 1 cm/s [facility] LV ID, ED, PLAX 3.9 3.5 - 6.0 cm [facility] LVIDD BY MMODE 3.9 cm [facility] LV ID, ES, PLAX 2.5 2.1 - 4.0 cm [facility] LA ID, A-P, ES 3.5 cm [facility] LV PW thickness, ED, PLAX 1.5 0.6 - 1.1 cm [facility] Aortic root ID 4.0(A) cm [facility] Descending aorta 2.8 cm [facility] RA Atrial Length A4C 5.8 cm [facility] Aortic valve mean velocity, S 0.8 m/s [facility] RA Atrial Area A4C 12.8 cm2 [facility] LV ejection fraction, 1-p A4C 58 % [facility] LVOT mean gradient, S 2 mmHg [facility] Aortic valve area, peak velocity 2.7 cm2 [facility] TR Peak Pedro 2.5 m/s [facility] PO INT [facility] CARE RA Atrial Volume A4C 25.0 ml [facility] RA ESV Index A4C 14.0 ml/m2 [facility] Aortic mean gradient, S 3 mmHg [facility] AV LVOT peak gradient 4 mmHg [facility] TV peak systolic pulmonary PAP 24 mmHg [facility] PV peak gradient 6 mmHg [facility] LV e', lateral 0.07 m/s [facility] Mitral deceleration time 180 ms [facility] MV A wave duration 173 msec [facility] Pulm vein A wave 180 msec [facility] Pulm vein S/D ratio 1.70 [facility] LVOT area 3.5 cm2 [facility] LVOT peak velocity, S 1.0 m/s [facility] LVOT VTI, S 19.4 cm [facility] PO INT OF CARE Aortic valve peak velocity, S 1.2 m/s [facility] Aortic valve VTI, S 22.4 cm [facility] Stroke volume (SV), LVOT DP 67 ml [facility] Aortic peak gradient, S 6 mmHg [facility] Mitral peak gradient, D 2 mmHg [facility] LVOT mean velocity, S 0.6 m/s [facility] Mitral E-wave peak velocity 0.7 m/s [facility] TR Max Pedro 2.51 m/s [facility] POI NT OF CARE Mitral A-wave peak velocity 1.4 m/s [facility] PV Peak S Pedro 0.54 m/s [facility] PV Peak D Pedro 0.32 m/s [facility] LV Systolic Volume Index 19.0 mL/m2 [facility] LV Diastolic Volume Index 46.0 mL/m2 [facility] AV DOI 0.79 [facility] T [facility] LA Atrial Length A4C 6.8 cm [facility] LVOT ID, S 2.1 cm [facility] POI NT OF CARE Triscuspid Valve Regurgitation Peak Gradient 25.2 mmHg [facility] EF 58 % [facility] T [facility] LA volume, ES, BP 74.0 ml [facility] POINT OF CARE LA volume/bsa, ES, A4C 40.0 ml/m2 [facility] LA volumes, ES, A4C 71.0 ml [facility] LA volume/bsa, ES, BP 42.0(A) ml/m2 [facility] LV Systolic Volume 34 mL [facility] LV Diastolic Volume 81 mL [facility] Stroke index (SV/bsa) LVOT DP 38.0 ml/m2 [facility] Aortic valve area VTI 3.0 cm2 [facility] Interventricular Septum to Posterior Wall Thickness Ratio 1 [facility] P OINT OF CARE IVS thickness, ED, PLAX 1.5 cm [facility] LV e', medial 0.05 m[facility] Pulmonic Valve Acceleration Time 102 ms [facility] T [facility] Pulmonic Valve A Wave Reverse Velocity 0.29 ms [facility] AV dimensionless index (DI) 1.7 [facility] LV e', average 0.06 m/s [facility] Velocity ratio, mean, LVOT/AV 0.84 [facility] Aortic valve area 2.9 cm2 [facility] POINT [facility] CARE AVAI Pk Pedro 1.6 cm2/m2 [facility] PO INT OF CARE Pulmonic valve mean velocity, S 1 cm/s [facility] Ascending aorta ID, a-p 3.3 cm [facility] LA Atrial Area A2C 23.9 cm2 [facility]INT [facility] LA/aortic root ratio 0.88 [facility] LV end diastolic volume 1-p A2C 77 ml [facility] LV ejection fraction, 1-p A2C 57 % [facility] T [facility] LV E/e', lateral 11.0 [facility] LV E/e', medial 0.1 [facility] N POINT OF CARE LV E/e', average 6 [facility] LV end-diastolic volume, 1-p A4C 77 ml [facility]INT [facility] C[facility] RVSP 30 mmHg [facility] T [facility] Anatomical Region Laterality Modality Ultrasound Narrative 11/14/2021 8:18 EST ?Left??Ventricle: The left ventricular cavity was normal [...] size. Right ventricular systolic function was normal. ?Left??Atrium: Left atrial cavity was moderately dilated. Left Ventricle The left ventricular cavity was normal in size. The estimated left ventricular ejection fraction by biplane Borja's method was 58 % (normal). Findings consistent with left ventricular diastolic dysfunction. Doppler parameters are consistent with elevated left atrial filling pressure. There was moderate concentric hypertrophy of the left ventricle. False tendon noted in the apex. Left ventricular wall motion was normal; there were no regional wall motion abnormalities. Right Ventricle The right ventricular cavity was normal in size. Right ventricular systolic function was normal. Left Atrium Left atrial cavity was moderately dilated. Right Atrium The right atrium was normal in size. IVC/SVC The inferior vena cava was normal in size. The inferior vena cava demonstrated a diameter of <=21 mm and collapses >50%; therefore, the right atrial pressure is estimated at 3 mmHg. Mitral Valve Mitral valve structure was normal. There was mild posterior annular calcification. There was trace mitral regurgitation. There was no significant mitral valve stenosis. Tricuspid Valve Tricuspid valve structure was normal. There was trace tricuspid valve regurgitation. There was no tricuspid valve stenosis. Aortic Valve The aortic valve structure was trileaflet. The aortic leaflets were mildly thickened. There was no aortic valve stenosis. There was trace aortic valve regurgitation. AV Peak Gradient: 6mmHg. AV Mean Gradient: 3mmHg. AV Area VTI: 3.0. Pulmonic Valve Pulmonic valve structure was grossly normal. There was trace pulmonic valve regurgitation. There was no pulmonic valve stenosis. Ascending Aorta The aortic root was mildly dilated. Pericardium The pericardium had a fat pad. Pulmonic Artery Pulmonary systolic pressure was , in the range of 30 mmHg to 35 mmHg. Study Details Scanning was performed from the apical, parasternal, subcostal and suprasternal acoustic windows. Overall the study quality was adequate. Images were obtained using cardiac ultrasound machine [id number]. Technically difficult due to patient movement/talking throughout exam, some difficulties positioning patient. General Comparison Compared to the previous study, there were no significant interval changes. Cecily Arguello MD CARDIAC ECH O ORDERABLES * HEPARIN LEVEL - UNFRACTIONATED HEPARIN (11/14/2021 6:07 EST) Heparin Level-UFH 0.27 Therapeutic Range: 0.30 - 0.70 IU/mL 11/14/2021 6:[address] [facility] Comment:Unfractionated hepar in therapeutic range = 0.3-0.7 [...] VENOUS BLOOD / Unknown Venipuncture / Unknown 11/14/2021 6:07 EST 11/14/2021 6:41 EST Melba Umanzor MD HEMATOLOGY & PF4 O RDERABLES [facility] [address] [place] [address] * HEPARIN LEVEL - UNFRACTIONATED HEPARIN (11/13/2021 14:17 EST) Heparin Level-UFH 0.40 Therapeutic Range: 0.30 - 0.70 IU/mL 11/13/2021 14:[address] [facility] Comment:Unfractionated hepar in therapeutic range = 0.3-0.7 [...] VENOUS BLOOD / Unknown Venipuncture / Unknown 11/13/2021 14:17 EST 11/13/2021 14:21 EST Katie Brand MD HEMATOLOGY & PF4 O RDERABLES Performing Organization Address City/[facility] Co de Phone Number [facility] [address] [place] [address] * TSH (11/13/2021 6:12 EST) TSH 3.52 0.47 - 4.68 ??IU/mL 11/14/2021 1:[address] [facility] Blood VENOUS BLOOD / Unknown Venipuncture / Unknown 11/13/2021 6:12 EST 11/13/2021 6:[address] [facility] - 11/14/2021 1:04 EST The results of this assay can be falsely lowered due to the consumption of Biotin. Katie Brand MD CHEMISTRY & BLOOD GAS ORDERABLES Performing Organization Address [facility] de Phone Number [facility] [address] [place] [address] * HEPARIN LEVEL - UNFRACTIONATED HEPARIN (11/13/2021 6:12 EST) Heparin Level-UFH 0.18 Therapeutic Range: 0.30 - 0.70 IU/mL 11/13/2021 7:[address] [facility] Comment:Unfractionated hepar in therapeutic range = 0.3-0.7 [...] VENOUS BLOOD / Unknown Venipuncture / Unknown 11/13/2021 6:12 EST 11/13/2021 6:50 EST Melba Umanzor MD HEMATOLOGY & PF4 O RDERABLES Performing Organization Address [facility]/ZIP Co de Phone Number [facility] [address] [place] [address] * MAGNESIUM (11/13/2021 6:12 EST) [facility] Magnesium 2.0 1.7 - 2.8 mg/dL 11/13/2021 7:[address] [facility] Blood VENOUS BLOOD / Unknown Venipuncture / Unknown 11/13/2021 6:12 EST 11/13/2021 6:50 EST Katie Brand MD CHEMISTRY & BLOOD GAS ORDERABLES Performing Organization Address [facility] Phone Number [facility] [address] [place] [address] * (ABNORMAL) TROPONIN I (11/13/2021 6:12 EST) [facility] Troponin I (ng/mL) 1.740(HH) <0.034 ng/mL 11/13/2021 7:[address] [facility] Blood VENOUS BLOOD / Unknown Venipuncture / Unknown 11/13/2021 6:12 EST 11/13/2021 6:[address] [facility] - 11/13/2021 7:46 EST The results of this assay can be falsely lowered due to the consumption of Biotin. Katie Brand MD CHEMISTRY & BLOOD GAS ORDERABLES Performing Organization Address [facility] Co de Phone Number [facility] [address] [place] [address] * (ABNORMAL) COMPREHENSIVE METABOLIC PANEL (CMP) (11/13/2021 6:12 EST) [facility] Sodium 134(L) 136 - 145 mmol/L 11/13/2021 7:[address] [facility] Potassium 4.2 3.5 - 5.0 mmol/L 11/13/2021 7:[address] [facility] Chloride 100 96 - 110 mmol/L 11/13/2021 7:20 [facility] CO2 Total 23 22 - 32 mmol/L 11/13/2021 7:20 [facility] Glucose 137(H) 70 - 100 mg/dL 11/13/2021 7:20 [facility] BUN 26 10 - 26 mg/dL 11/13/2021 7:20 [facility] Creatinine 0.89 0.52 - 1.04 mg/dL 11/13/2021 7:20 [facility] eGFR 60(L) >60 mL/min/1.7 3m2 11/13/2021 7:20 [facility] Total Protein 6.3 6.3 - 8.2 g/dL 11/13/2021 7:20 [facility] Albumin 3.8 3.4 - 4.9 g/dL 11/13/2021 7:20 [facility] Alkaline Phosphatase 102 38 - 126 U/L 11/13/2021 7:20 [facility] AST 38 15 - 46 U/L 11/13/2021 7:20 [facility] ALT 25 <35 U/L 11/13/2021 7:20 [facility] Bilirubin, Total 0.8 <1.4 mg/dL 11/13/19 7:20 [facility] Calcium 9.0 8.5 - 10.5 mg/dL 11/13/2021 7:20 [facility] Albumin/Globulin Ratio 1.5 1.0 - 2.5 11/13/2021 7:20 [facility] Anion Gap 11 5 - 14 11/13/2021 7:20 [facility] Blood VENOUS BLOOD / Unknown Venipuncture / Unknown 11/13/2021 6:12 EST 11/13/2021 6:50 EST Katie Brand MD CHEMISTRY & BLOOD GAS ORDERABLES [facility] [address] [place] [address] * COMPLETE BLOOD COUNT AND DIFFERENTIAL (11/13/2021 6:12 EST) WBC 6.79 4.00 - 12.40 K/cmm 11/13/2021 6:55 [facility] RBC 4.20 3.86 - 5.04 M/cmm 11/13/2021 6:55 [facility] Hemoglobin 13.6 11.6 - 15.2 gm/dL 11/13/2021 6:55 [facility] HCT 40.2 34.9 - 44.4 % 11/13/2021 6:55 [facility] MCV 96 81 - 98 fl 11/13/2021 6:55 [facility] MCH 32.4 26.7 - 33.3 pg 11/13/2021 6:55 [facility] MCHC 33.8 32.1 - 35.9 gm/dL 11/13/2021 6:55 [facility] RDW-CV 13.6 <14.7 % 11/13/2021 6:55 [facility] RDW-SD 47.8 <50.4 fl 11/13/2021 6:55 [facility] PLT 202 141 - 377 K/cmm 11/13/2021 6:55 [facility] MPV 10.7 9.5 - 12.7 fl 11/13/2021 6:55 [facility] % Neutrophils 58.5 % 11/13/2021 6:55 [facility] % Lymphocytes 21.6 % 11/13/2021 6:55 [facility] % Monocytes 10.5 % 11/13/2021 6:55 [facility] % Eosinophils 8.4 % 11/13/2021 6:55 [facility] % Basophils 0.7 % 11/13/2021 6:55 [facility] % Immature Grans 0.3 % 11/13/19 6:55 [facility] Absolute Neutrophils 3.97 2.20 - 8.85 K/cmm 11/13/2021 6:55 [facility] Absolute Lymphocytes 1.47 1.09 - 3.30 K/cmm 11/13/2021 6:55 [facility] Absolute Monocytes 0.71 0.10 - 0.80 K/cmm 11/13/2021 6:55 [facility] Absolute Eosinophils 0.57 0.03 - 0.61 K/cmm 11/13/2021 6:55 [facility] ABS Basophils 0.05 0.01 - 0.11 K/cmm 11/13/2021 6:55 [facility] Absolute Immature Grans 0.02 0.00 - 0.06 K/cmm 11/13/2021 6:55 [facility] Type of Differential: Auto 11/13/2021 6:55 [place] [facility] Blood VENOUS BLOOD / Unknown Venipuncture / Unknown 11/13/2021 6:12 EST 11/13/2021 6:51 EST Katie Brand MD PACKAGES & DNA PRO BE ORDERABLES [facility] [address] [place] [address] * (ABNORMAL) HEMOGLOBIN A1C (11/13/2021 6:12 EST) Hemoglobin A1c 6.9(H) <5.7 % 11/13/2021 20:14 [facility] Comment: Glycemic Status References: Normal: ??<5.7% Pre-Diabetes: ??5.7% - 6.4% Diagnostic of Diabetes: ??> or = 6.5% (if confirmed) Est Avg Glucose 151 mg/dL 20:14 [facility] Comment:The eAG represents t he A1c result expressed as average glucose in mg/dL. Blood VENOUS BLOOD / Unknown Venipuncture / Unknown 11/13/2021 6:12 EST 11/13/2021 6:51 EST Cecily Arguello MD CHEMISTRY & BLOOD GAS ORDERABLES Performing Organization Address City/[facility]/ZIP Co de Phone Number [facility] [address] [place] [address] * (ABNORMAL) TROPONIN I (11/12/2021 22:34 EST) Troponin I (ng/mL) 2.510(HH) <0.034 ng/mL 11/12/2021 23:[address] [facility] Blood VENOUS BLOOD / Unknown Venipuncture / Unknown 11/12/2021 22:34 EST 11/12/2021 22:[address] [facility] - 11/12/2021 23:11 EST The results of this assay can be falsely lowered due to the consumption of Biotin. Jameson Rueda MD CHEMISTRY & BLOOD GAS ORDERABLES Performing Organization Address [facility]/ZIP Co de Phone Number [facility] [address] [place] [address] * ECG REPORT - SCANNED (11/12/2021 20:05 EST) 11/12/2021 20:0 5 EST Scan 2 [employer] Director PROCEDURE/MINOR KAYLA GICAL ORDERABLES * ECG REPORT - SCANNED (11/12/2021 20:04 EST) 11/12/2021 20:0 4 EST Scan 2 Life Enrichment Director PROCEDURE/MINOR KAYLA GICAL ORDERABLES * ECG REPORT - SCANNED (11/12/2021 20:00 EST) 11/12/2021 20:0 0 EST Scan 2 Life Enrichment Director PROCEDURE/MINOR KAYLA GICAL ORDERABLES * (ABNORMAL) TROPONIN I (11/12/2021 10:56 EST) Troponin I (ng/mL) 2.370(HH) <0.034 ng/mL 11/12/2021 12:[address] [facility] Blood VENOUS BLOOD / Unknown Venipuncture / Unknown 11/12/2021 10:56 EST 11/12/2021 11:[address] [facility] - 11/12/2021 12:38 EST The results of this assay can be falsely lowered due to the consumption of Biotin. Katie Brand MD CHEMISTRY & BLOOD GAS ORDERABLES Performing Organization Address [facility] de Phone Number [facility] [address] [place] [address] * HEPARIN LEVEL - UNFRACTIONATED HEPARIN (11/12/2021 6:10 EST) Heparin Level-UFH 0.64 Therapeutic Range: 0.30 - 0.70 IU/mL 11/12/2021 8:[address] [facility] Comment:Unfractionated hepar in therapeutic range = 0.3-0.7 [...] VENOUS BLOOD / Unknown Venipuncture / Unknown 11/12/2021 6:10 EST 11/12/2021 7:26 EST Melba Umanzor MD HEMATOLOGY & PF4 O RDERABLES Performing Organization Address [facility] Co de Phone Number [facility] [address] [place] [address] * LIPID PROFILE (INCLUDES CHOLESTEROL, TRIGLYCERIDES, HDL, LDL) (11/12/2021 6:07 EST) Cholesterol 199 See Note mg/dL 11/12/2021 7:[address] [facility] Comment: Acceptable: ?<200 mg/dL Borderline High: 200-239 mg/dL High: ?> or = 240 mg/dL HDL 36 See Note mg/dL 11/12/2021 7:52 [facility] Comment: Low: ? <40 mg/dL Normal: ??40-60 mg/dL High: ?>60 mg/dL LDL, Calculated 91 See Note mg/dL 11/12/2021 7:52 [facility] Comment: Optimal: ? <100 mg/dL Near Optimal: ?100-129 mg/dL Borderline High: 130-159 mg/dL High: ?160-189 mg/dL Very High: ? > or = 190 mg/dL Triglyceride 359 See Note mg/dL 11/12/2021 7:52 [facility] Comment: Normal: ? <150 mg/dL Borderline High: ??150 - 199 mg/dL High: ? 200 - 499 mg/dL Very High: ?> or = 500 mg/dL Chol/HDL Ratio 5.5 See Note 11/12/2021 7:52 [facility] Comment: NOTE: Desirable Ratio = <4.1 Patient At Risk Ratio = >5.0(Males) ?>6.0(Females) Non HDL Cholesterol 163 See Note mg/dL 11/12/2021 7:52 [facility] Comment: Desirable: ?<130 mg/dL Borderline High: ??130-159 mg/dL High: ? 160-189 mg/dL Very High: ?> or = 190 mg/dL Blood VENOUS BLOOD / Unknown Venipuncture / Unknown 11/12/2021 6:07 EST 11/12/2021 6:42 EST Cecily Arguello MD CHEMISTRY & BLOOD GAS ORDERABLES [facility] [address] [place] [address] * (ABNORMAL) TROPONIN I (11/12/2021 4:34 EST) Troponin I (ng/mL) 0.580(HH) <0.034 ng/mL 11/12/2021 5:[address] [facility] Blood VENOUS BLOOD / Unknown Venipuncture / Unknown 11/12/2021 4:34 EST 11/12/2021 4:[address] [facility] - 11/12/2021 5:11 EST The results of this assay can be falsely lowered due to the consumption of Biotin. Melba Umanzor MD CHEMISTRY & BLOOD GAS ORDERABLES Performing Organization Address City/State/[facility] Co de Phone Number [facility] [address] [place] [address] * EKG 12-LEAD (11/12/2021 3:15 EST) 11/12/2021 3:[address] [facility] - 11/12/2021 20:00 EST ? CV ? Test Date: ?2021-11-12 Pat Name: ? CONCETTA STONE ? Department: ? Room: ? A02 Gender: ? Female ? Host/Hostess: ?? CG5 : ?1940 ? Requested By: VIDAL AGUILERA Order Number: [id number] ? Reading MD: ?? ROSENDA CASIANO MD ? Measurements Intervals ?[place] ? Rate: ? 80 ? P: ?50 OK: ? 182 ?QRS: ?-49 QRSD: ? 118 ?T: ?127 QT: ? 416 ? QTc: ?479 ? Interpretive Statements Normal sinus rhythm Left axis deviation Left ventricular hypertrophy with QRS widening Septal infarct , age undetermined ST & T wave abnormality, consider ischemia Compared to ECG 11/12/2021 02:01:57 Dynamic T wave changes I reviewed the tracing and have either agreed or edited the findings in this report. Electronically Signed On 11-12-2021 20:00:38 EST by ROSENDA CASIANO MD. Procedure Note Rosenda Casiano MD - 11/12/2021 [facility] Test Date: 2021-11-12 Pat Name: CONCETTA SULLIVAN Department: Room: A02 Gender: Female Host/Hostess: CG5 : 1940 Requested By: VIDAL AGUILERA Order Number: [id number] Reading MD: ROSENAD CASIANO MD Measurements Intervals [place] Rate: 80 P: 50 OK: 182 QRS: -49 QRSD: 118 T: 127 QT: 416 QTc: 479 Interpretive Statements Normal sinus rhythm Left axis deviation Left ventricular hypertrophy with QRS widening Septal infarct , age undetermined ST & T wave abnormality, consider ischemia Compared to ECG 11/12/2021 02:01:57 Dynamic T wave changes I reviewed the tracing and have either agreed or edited the findings inthis report. Electronically Signed On 11-12-2021 20:00:38 EST by ROSENDA REYES. Melba Umanzor MD CARDIAC ECG ORDERA [facility] Performing Organization Address City/State/[facility] Co de Phone Number [facility] * XR CHEST PORTABLE 1 VIEW (11/12/2021 2:05 EST) Anatomical Region Laterality Modality Computed Radiogr aphy 11/12/2021 1:25 EST Impressions 11/12/2021 3:16 EST No acute findings. THIS DOCUMENT HAS BEEN ELECTRONICALLY SIGNED BY KARTIK AN MD FOR ANY QUESTIONS OR CONCERNS REGARDING THIS REPORT PLEASE CALL [facility] AT [phone] Narrative 11/12/2021 3:16 EST PROCEDURE INFORMATION: Exam: XR Chest Exam date and time: 11/12/2021 1:25 AM Age: 81 years old Clinical indication: Pain; Angina pectoris; Additional info: Chest pain TECHNIQUE: Imaging protocol: XR of the chest. Views: 1 view. COMPARISON: CR CHEST (PA LAT) 01/16/2020 11:48 AM FINDINGS: Lungs: Unremarkable. No consolidation. Pleural spaces: Unremarkable. No pleural effusion. No pneumothorax. Heart/Mediastinum: Unremarkable. No cardiomegaly. Bones/joints: Mild dextroscoliosis. Mild thoracic spondylosis. Procedure Note Kartik An MD - 11/12/2021 PROCEDURE INFORMATION: Exam: XR Chest Exam date and time: 11/12/2021 1:25 AM Age: 81 years old Clinical indication: Pain; Angina pectoris; Additional info: Chest pain TECHNIQUE: Imaging protocol: XR of the chest. Views: 1 view. COMPARISON: CR CHEST (PA LAT) 01/16/2020 11:48 AM FINDINGS: Lungs: Unremarkable. No consolidation. Pleural spaces: Unremarkable. No pleural effusion. No pneumothorax. Heart/Mediastinum: Unremarkable. No cardiomegaly. Bones/joints: Mild dextroscoliosis. Mild thoracic spondylosis. IMPRESSION No acute findings. THIS DOCUMENT HAS BEEN ELECTRONICALLY SIGNED BY KARTIK AN MD FOR ANY QUESTIONS OR CONCERNS REGARDING THIS REPORT PLEASE CALL [facility] [phone] Melba Umanzor MD IMG DIAGNOSTIC [facility]ING ORDERABLES * EKG 12-LEAD (11/12/2021 2:01 EST) 11/12/2021 2:01 EST Narrative [facility] - 11/12/2021 19:59 EST ? CV ? Test Date: ?2021-11-12 Pat Name: ? CONCETTA STONE ? Department: ? Room: ? A02 Gender: ? Female ? Host/Hostess: ?? KD : ?1940 ? Requested By: VIDAL AGUILERA Order Number: [id number] ? Reading : ?? ROSENDA CASIANO MD ? Measurements Intervals ?[place] ? Rate: ? 88 ? P: ?46 OK: ? 176 ?QRS: ?-52 QRSD: ? 116 ?T: ?128 QT: ? 418 ? QTc: ?505 ? Interpretive Statements Normal sinus rhythm Left axis deviation Left ventricular hypertrophy with QRS widening and repolarization abnormality Septal infarct , age undetermined Compared to ECG 11/12/2021 01:14:35 Myocardial infarct finding still present I reviewed the tracing and have either agreed or edited the findings in this report. Electronically Signed On 11-12-2021 19:59:26 EST by ROSENDA CASIANO MD. Procedure Note Rosenda Casiano MD - 11/12/2021 [facility] Test Date: 2021-11-12 Pat Name: CONCETTA SULLIVAN Department: Room: A02 Gender: Female Host/Hostess: LATA : 1940 Requested By: VIDAL AGUILERA Order Number: [id number] Reading MD: ROSENDA CASIANO MD Measurements Intervals [place] Rate: 88 P: 46 OK: 176 QRS: -52 QRSD: 116 T: 128 QT: 418 QTc: 505 Interpretive Statements Normal sinus rhythm Left axis deviation Left ventricular hypertrophy with QRS widening and repolarizationabnormality Septal infarct , age undetermined Compared to ECG 11/12/2021 01:14:35 Myocardial infarct finding still present I reviewed the tracing and have either agreed or edited the findings inthis report. Electronically Signed On 11-12-2021 19:59:26 EST by ROSENDA REYES. Melba Umanzor MD CARDIAC ECG ORDERA BLES Performing Organization Address City/[facility]/ZIP Co de Phone Number [facility] * D-DIMER (11/12/2021 1:41 EST) [facility] D-Dimer <150 <230 ng/mL DDU 11/12/2021 2:[address] [facility] Blood VENOUS BLOOD / Unknown Venipuncture / Unknown 11/12/2021 1:41 EST 11/12/2021 1:[address] [facility] - 11/12/2021 2:09 EST Cutoff value for the exclusion of DVT and PE: 230 ng/mL D-dimer units. Any use of the age-adjusted cutoff value is a post-analytic modification of this FDA-approved test and is considered off-label use of the test result. Melba Umanzor MD HEMATOLOGY & PF4 O RDERABLES Performing Organization Address City/[facility]/ZIP Co de Phone Number [facility] [address] [place] [address] * COVID-19 [facility] (TESTING ONLY) (11/12/2021 1:41 EST) Pathologist [facility] COVID-19 rt-PCR Result Negative Negative 11/12/2021 2:40 [facility] Comment: This test has not been FDA cleared or approved. This test has been authorized by FDA under an EUA for use by authorized laboratories. This test has been authorized only for detection of nucleic acid from 2019-nCoV, not for any other viruses or pathogens. This test is only authorized for the duration of the declaration that circumstances exist justifying the authorization of emergency use of in vitro diagnostic tests for detection and/or diagnosis of 2019-nCoV under section 564(b)(1) of Act, 21 U.S.C ?? 360bbb-3(b) (1), unless the authorization is terminated or revoked sooner. Performed on the [employer] GeneXpert Instrument The 2019 novel coronavirus (SARS-CoV-2) target nucleic acids are not detected. Swab BOTH ANTERIOR NARES / Unknown Swab / Unknown 11/12/2021 1:41 EST 11/12/2021 1:45 EST Melba Umanzor MD MICROBIOLOGY - GEN ERAL ORDERABLES Performing Organization Address City/[facility]/ZIP Co de Phone Number [facility] [address] [place] [address] * COVID-19 TESTING ([facility], [facility] [place]) (11/12/2021 1:41 EST) Performing Lab [facility] Hospital Lab 11/12/2021 1:45 [facility] Swab BOTH ANTERIOR NARES / Unknown Swab / Unknown 11/12/2021 1:41 EST 11/12/2021 1:45 EST Melba Umanzor MD MICROBIOLOGY - GEN ERAL ORDERABLES Performing Organization Address City/[facility]/ZIP Co de Phone Number [facility] [address] [place] [address] * (ABNORMAL) COMPREHENSIVE METABOLIC PANEL (CMP) (11/12/2021 1:41 EST) Sodium 136 136 - 145 mmol/L 11/12/2021 2:02 [facility] Potassium 3.8 3.5 - 5.0 mmol/L 11/12/2021 2:02 [facility] Chloride 103 96 - 110 mmol/L 11/12/2021 2:02 [facility] CO2 Total 20(L) 22 - 32 mmol/L 11/12/2021 2:02 [facility] Glucose 177(H) 70 - 100 mg/dL 11/12/2021 2:02 [facility] BUN 18 10 - 26 mg/dL 11/12/2021 2:02 [facility] Creatinine 0.69 0.52 - 1.04 mg/dL 11/12/2021 2:02 [facility] eGFR 81 >60 mL/min/1.7 3m2 11/12/2021 2:02 [facility] Total Protein 6.4 6.3 - 8.2 g/dL 11/12/2021 2:02 [facility] Albumin 3.8 3.4 - 4.9 g/dL 11/12/2021 2:02 [facility] Alkaline Phosphatase 112 38 - 126 U/L 11/12/2021 2:02 [facility] AST 29 15 - 46 U/L 11/12/2021 2:02 [facility] ALT 24 <35 U/L 11/12/2021 2:02 [facility] Bilirubin, Total 0.8 <1.4 mg/dL 11/12/19 2:02 [facility] Calcium 8.9 8.5 - 10.5 mg/dL 11/12/2021 2:02 [facility] Albumin/Globulin Ratio 1.5 1.0 - 2.5 11/12/2021 2:02 [facility] Anion Gap 13 5 - 14 11/12/2021 2:02 [facility] Blood VENOUS BLOOD / Unknown Venipuncture / Unknown 11/12/2021 1:41 EST 11/12/2021 1:44 EST Melba Umanzor MD CHEMISTRY & BLOOD GAS ORDERABLES [facility] [address] [place] [address] * HOLD BLUE TOP (11/12/2021 1:41 EST) Hold Hold 11/12/2021 2:[address] [facility] Blood VENOUS BLOOD / Unknown Venipuncture / Unknown 11/12/2021 1:41 EST 11/12/2021 1:44 EST Melba Umanzor MD LAB INFO SERVICE A ND SUPPORT & PHONE RESULT Performing Organization Address City/[facility]/ZIP Co de Phone Number [facility] [address] [place] [address] * MAGNESIUM (11/12/2021 1:41 EST) [facility] Magnesium 1.7 1.7 - 2.8 mg/dL 11/12/2021 2:[address] [facility] Blood VENOUS BLOOD / Unknown Venipuncture / Unknown 11/12/2021 1:41 EST 11/12/2021 1:44 EST Melba Umanzor MD CHEMISTRY & BLOOD GAS ORDERABLES Performing Organization Address [facility] Co de Phone Number [facility] [address] [place] [address] * (ABNORMAL) TROPONIN I (11/12/2021 1:41 EST) [facility] Troponin I (ng/mL) 0.071(HH) <0.034 ng/mL 11/12/2021 2:[address] [facility] Blood VENOUS BLOOD / Unknown Venipuncture / Unknown 11/12/2021 1:41 EST 11/12/2021 1:[address] [facility] - 11/12/2021 2:12 EST The results of this assay can be falsely lowered due to the consumption of Biotin. Melba Umanzor MD CHEMISTRY & BLOOD GAS ORDERABLES Performing Organization Address [facility] Co de Phone Number [facility] [address] [place] [address] * (ABNORMAL) COMPLETE BLOOD COUNT AND DIFFERENTIAL (11/12/2021 1:41 EST) [facility] WBC 8.24 4.00 - 12.40 K/cmm 11/12/2021 1:46 [facility] RBC 4.37 3.86 - 5.04 M/cmm 11/12/2021 1:46 [facility] Hemoglobin 14.0 11.6 - 15.2 gm/dL 11/12/2021 1:46 [facility] HCT 41.6 34.9 - 44.4 % 11/12/2021 1:46 [facility] MCV 95 81 - 98 fl 11/12/2021 1:46 [facility] MCH 32.0 26.7 - 33.3 pg 11/12/2021 1:46 [facility] MCHC 33.7 32.1 - 35.9 gm/dL 11/12/2021 1:46 [facility] RDW-CV 13.4 <14.7 % 11/12/2021 1:46 [facility] RDW-SD 46.6 <50.4 fl 11/12/2021 1:46 [facility] PLT 215 141 - 377 K/cmm 11/12/2021 1:46 [facility] MPV 10.7 9.5 - 12.7 fl 11/12/2021 1:46 [facility] % Neutrophils 72.7 % 11/12/2021 1:46 [facility] % Lymphocytes 13.1 % 11/12/2021 1:46 [facility] % Monocytes 7.5 % 11/12/2021 1:46 [facility] % Eosinophils 5.6 % 11/12/2021 1:46 [facility] % Basophils 0.7 % 11/12/2021 1:46 [facility] % Immature Grans 0.4 % 11/12/19 1:46 [facility] Absolute Neutrophils 5.99 2.20 - 8.85 K/cmm 11/12/2021 1:46 [facility] Absolute Lymphocytes 1.08(L) 1.09 - 3.30 K/cmm 11/12/2021 1:[address] [facility] Absolute Monocytes 0.62 0.10 - 0.80 K/cmm 11/12/2021 1:[address] [facility] Absolute Eosinophils 0.46 0.03 - 0.61 K/cmm 11/12/2021 1:46 [facility] ABS Basophils 0.06 0.01 - 0.11 K/cmm 11/12/2021 1:[address] [facility] Absolute Immature Grans 0.03 0.00 - 0.06 K/cmm 11/12/2021 1:46 [facility] Type of Differential: Auto 11/12/2021 1:46 [facility] Blood VENOUS BLOOD / Unknown Venipuncture / Unknown 11/12/2021 1:41 EST 11/12/2021 1:44 EST Melba Umanzor MD PACKAGES & DNA PRO BE ORDERABLES Performing Organization Address [facility]/State/[facility] Co de Phone Number [facility] [address] [place] [address] * EKG 12-LEAD (11/12/2021 1:14 EST) 11/12/2021 1:[address] [facility] - 11/12/2021 19:57 EST ? [facility] ? Test Date: ?2021-11-12 Pat Name: ? CONCETTA STONE ? Department: ? Room: ? A02 Gender: ? Female ? Host/Hostess: ?? KD : ?1940 ? Requested By: UMANZOR MELBA AGUILERA Order Number: [id number] ? Reading MD: ?? ROSENDA CASIANO MD ? Measurements Intervals ?[place] ? Rate: ? 94 ? P: ?61 OK: ? 182 ?QRS: ?-52 QRSD: ? 124 ?T: ?117 QT: ? 368 ? QTc: ?460 ? Interpretive Statements Sinus rhythm with fusion complexes Left axis deviation Left ventricular hypertrophy with QRS widening and repolarization abnormality Septal infarct , age undetermined Compared to ECG 01/19/2020 10:36:27 Myocardial infarct finding now present ST (T wave) deviation no longer present I reviewed the tracing and have either agreed or edited the findings in this report. Electronically Signed On 11-12-2021 19:57:41 EST by ROSENDA CASIANO MD. Procedure Note Rosenda Casiano MD - 11/12/2021 [facility] Test Date: 2021-11-12 Pat Name: CONCETTA SULLIVAN Department: Room: 2 Gender: Female Host/Hostess: LATA : 1940 Requested By: VIDAL AGUILERA Order Number: [id number] Reading MD: ROSENDA CASIANO MD Measurements Intervals [place] Rate: 94 P: 61 OK: 182 QRS: -52 QRSD: 124 T: 117 QT: 368 QTc: 460 Interpretive Statements Sinus rhythm with fusion complexes Left axis deviation Left ventricular hypertrophy with QRS widening and repolarizationabnormality Septal infarct , age undetermined Compared to ECG 01/19/2020 10:36:27 Myocardial infarct finding now present ST (T wave) deviation no longer present I reviewed the tracing and have either agreed or edited the findings inthis report. Electronically Signed On 11-12-2021 19:57:41 EST by ROSENDA REYES. Melba Umanzor MD CARDIAC ECG ORDERA [facility] Organization Address City/State/ZIP Co de Phone Number [facility] documented in this encounter Visit Diagnoses Diagnosis NSTEMI (non-ST elevated myocardial infarction) (HCC-CMS) Acute myocardial infarction, subendocardial infarction, episode of care unspecified NSTEMI (non-ST elevated myocardial infarction) (HCC-CMS) Acute myocardial infarction, subendocardial infarction, episode of care unspecified documented in this encounter Admitting Diagnoses Diagnosis NSTEMI (non-ST elevated myocardial infarction) (HCC-CMS) Acute myocardial infarction, subendocardial infarction, episode of care unspecified documented in this encounter Administered Medications Inactive Administered Medications - up to 3 most recent administrations Medication Order MAR Action Action Date Dose Rate Site aspirin chewable tablet 81 mg 81 mg, oral, DAILY, First dose on 11/12/21 at 0900, Until Discontinued, Routine Given 11/15/2021 12:19 EST 81 mg Given 11/14/2021 9:23 EST 81 mg Given 11/13/2021 8:45 EST 81 mg atenoloL (TENORMIN) tablet 25 mg 25 mg, oral, DAILY, First dose on 11/12/21 at 0900, Until Discontinued, Routine Given 11/15/2021 12:20 EST 25 mg Given 11/14/2021 9:24 EST 25 mg Given 11/13/2021 8:45 EST 25 mg atorvastatin (LIPITOR) tablet 80 mg 80 mg, oral, DAILY, First dose on 11/12/21 at 0900, Until Discontinued, Routine Given 11/15/2021 12:20 EST 80 mg Given 11/14/2021 9:23 EST 80 mg Given 11/13/2021 8:45 EST 80 mg eye vitamin and mineral supplement 60 mg-13.5 mg- 15 mg-2 mg-6 mg capsule 1 capsule 1 Capsule, oral, DAILY, First dose on 11/12/21 at 0900, Until Discontinued Given 11/15/2021 12:20 EST 1 Capsule Given 11/14/2021 9:23 EST 1 Capsule Given 11/13/2021 8:45 EST 1 Capsule fluticasone propionate (FLONASE) nasal spray 1 [place] 1 [place], nasal - both, 2 TIMES DAILY, First dose on 11/12/21 at 0900, Until Discontinued, Routine Given 11/14/2021 9:31 EST 1 [place] heparin in D5W 25,000 unit/250 mL(100 unit/mL) infusion 19 Units/kg/hr ? 61.8 kg Adjusted weight (11.742 mL/hr, rounded to 11.5 mL/hr), intravenous, CONTINUOUS, Starting on Sun11/12/21 at 0245, Until Tu11/15/21 at 1614, STAT New Bag 11/15/2021 5:51 EST 19 Units/kg/hr 11.5 mL/hr Rate Documented 11/14/2021 16:34 EST 19 Units/kg/hr 11.5 m L/hr Rate Change 11/14/2021 8:43 EST 19 Units/kg/hr 11.5 mL/hr IV heparin injection 2,150 Units 2,150 Units (rounded from 2,163 Units = 35 Units/kg ? 61.8 kg Adjusted weight), intravenous, PRN, Starting on 11/12/21 at 0216, Until Sun11/15/21 at 1614, Other, Per Heparin Protocol, Routine Given 11/14/2021 8:50 EST 2,150 Units IV Given 11/13/2021 8:21 EST 2,150 Units heparin injection 4,350 Units 4,350 Units (rounded from 4,326 Units = 70 Units/kg ? 61.8 kg Adjusted weight), intravenous, NOW X1, 1 dose, On Sun11/12/21 at 0245, STAT Given 11/12/2021 2:46 EST 4,350 Units heparin injection 4,350 Units 4,350 Units (rounded from 4,326 Units = 70 Units/kg ? 61.8 kg Adjusted weight), intravenous, PRN, Starting on Sun11/12/21 at 0216, Until Sun11/15/21 at 1614, Other, Per Heparin Protocol, Routine irbesartan (AVAPRO) tablet 300 mg 300 mg, oral, DAILY, First dose on Sun11/12/21 at 0900, Until Discontinued Given 11/15/2021 12:20 EST 300 mg Given 11/14/2021 9:24 EST 300 mg Given 11/13/2021 8:45 EST 300 mg levothyroxine (SYNTHROID) tablet 100 mcg 100 mcg, oral, DAILY, First dose on Sun11/12/21 at 0600, Until Discontinued, Routine Given 11/15/2021 5:15 EST 100 mcg Given 11/14/2021 6:01 EST 100 mcg Given 11/13/2021 6:08 EST 100 mcg magnesium sulfate 4 g in water 50 mL 4 g, intravenous, Administer over 180 Minutes, NOW X1, 1 dose, On Sun11/12/21 at 0400, Routine New Bag 11/12/2021 6:49 EST 4 g nitroglycerin (NITROSTAT) SL tablet 0.4 mg 0.4 mg, sublingual, EVERY 5 MIN PRN, Starting on Sun11/12/21 at 0436, Until Sun11/15/21 at 1614, Chest Pain, Routine pantoprazole (PROTONIX) tablet 40 mg 40 mg, oral, DAILY BEFORE BREAKFAST, First dose on Sun11/12/21 at 0700, Until Discontinued Given 11/15/2021 12:20 EST 40 mg Given 11/14/2021 6:01 EST 40 mg Given 11/13/2021 6:08 EST 40 mg potassium chloride in water infusion 20 mEq 20 mEq, intravenous, NOW X1, 1 dose, On 11/12/21 at 0400, Routine Given 11/12/2021 4:11 EST 20 mEq regadenoson (LEXISCAN) injection syringe 0.4 mg 0.4 mg, intravenous, NOW X1, 1 dose, On 11/15/21 at 1130, Routine Given 11/15/2021 10:56 EST 0.4 mg technetium (Tc-99m) sestamibi injection 10 millicurie 10 millicurie, radiopharm IV, Once in imaging, 1 dose, Starting on 11/15/21 at 1014, Until 11/15/21 at 1013, Routine, Imaging Protocol Orders Given 11/15/2021 10:13 EST 10.6 millicuries technetium (Tc-99m) sestamibi injection 30 millicurie 30 millicurie, radiopharm IV, Once in imaging, 1 dose, Starting on 11/15/21 at 1014, Until 11/15/21 at 1056, Routine, Imaging Protocol Orders Given 11/15/2021 10:56 EST 33 millicuries documented in this encounter Active and Recently Administered Medications Times are shown in EST. Scheduled Medication Order 11/13/2021 11/14/2021 11/15/2021 aspirin chewable tablet 81 mg 81 mg, oral, DAILY, First dose on 11/12/21 at 0900, Until Discontinued, Routine 0845 (Given - Provider: Maribel Haywood RN) 0923 (Given - Provider: Flory Medina, RN) 1219 (Given - Provider: Dahiana Mai, RN) atenoloL (TENORMIN) tablet 25 mg 25 mg, oral, DAILY, First dose on 11/12/21 at 0900, Until Discontinued, Routine 0845 (Given - Provider: Maribel Haywood RN) 0924 (Given - Provider: Flory Medina, ANA) 1220 (Given - Provider: Dahiana Mai, ANA) atorvastatin (LIPITOR) tablet 80 mg 80 mg, oral, DAILY, First dose on 11/12/21 at 0900, Until Discontinued, Routine 0845 (Given - Provider: Maribel Haywood RN) 0923 (Given - Provider: Flory Medina RN) 1220 (Given - Provider: Dahiana Mai RN) eye vitamin and mineral supplement 60 mg-13.5 mg- 15 mg-2 mg-6 mg capsule 1 capsule 1 Capsule, oral, DAILY, First dose on 11/12/21 at 0900, Until Discontinued 0845 (Given - Provider: Maribel Haywood RN) 0923 (Given - Provider: Flory Medina RN) 1220 (Given - Provider: Dahiana Mai RN) fluticasone propionate (FLONASE) nasal spray 1 [place] 1 [place], nasal - both, 2 TIMES DAILY, First dose on 11/12/21 at 0900, Until Discontinued, Routine 0845 (Not Given - Provider: Maribel Haywood RN - Reason: Patient/family refused)215 (Not Given - Provider: Angela Price RN - Reason: Patient/family refused) 0931 (Given - Provider: Flory Medina RN)2215 (Not Given - Provider: Manisha Arzola RN - Reason: Patient/family refused) 0900 (Due) irbesartan (AVAPRO) tablet 300 mg 300 mg, oral, DAILY, First dose on 11/12/21 at 0900, Until Discontinued 0845 (Given - Provider: Maribel Haywood RN) 0924 (Given - Provider: Flory Medina RN) 1220 (Given - Provider: Dahiana Mai RN) levothyroxine (SYNTHROID) tablet 100 mcg 100 mcg, oral, DAILY, First dose on 11/12/21 at 0600, Until Discontinued, Routine 0608 (Given - Provider: Wilber Pelayo RN) 0601 (Given - Provider: Angela Price RN) 0515 (Given - Provider: Manisha Arzola RN) pantoprazole (PROTONIX) tablet 40 mg 40 mg, oral, DAILY BEFORE BREAKFAST, First dose on 11/12/21 at 0700, Until Discontinued 0608 (Given - Provider: Wilber Pelayo RN) 0601 (Given - Provider: Angela Price RN) 0600 (Not Given - Provider: Manisha Arzola, ANA - Reason: Patient/family refused)1220 (Given - Provider: Dahiana Mai, ANA) regadenoson (LEXISCAN) injection syringe 0.4 mg (COMPLETED) 0.4 mg, intravenous, NOW X1, 1 dose, On 11/15/21 at 1130, Routine 1056 (Given - Provider: Trice Orourke RN - Comment: given for stress test) technetium (Tc-99m) sestamibi injection 10 millicurie (COMPLETED) 10 millicurie, radiopharm IV, Once in imaging, 1 dose, Starting on 11/15/21 at 1014, Until 11/15/21 at 1013, Routine, Imaging Protocol Orders 1013 (Given - Provider: Paige Mitchell) technetium (Tc-99m) sestamibi injection 30 millicurie (COMPLETED) 30 millicurie, radiopharm IV, Once in imaging, 1 dose, Starting on 11/15/21 at 1014, Until 11/15/21 at 1056, Routine, Imaging Protocol Orders 1056 (Given - Provider: Idris Patel) Continuous Medication Order 11/13/2021 11/14/2021 11/15/2021 heparin in D5W 25,000 unit/250 mL(100 unit/mL) infusion 19 Units/kg/hr ? 61.8 kg Adjusted weight (11.742 mL/hr, rounded to 11.5 mL/hr), intravenous, CONTINUOUS, Starting on 11/12/21 at 0245, Until Sun11/15/21 at 1614, STAT 0341 (New Bag - Provider: Wilber Pelayo, ANA)0824 (New Bag - Provider: Maribel Haywood, RN)2145 (Rate Change - Provider: Angela Price, ANA) 0843 (Rate Change - Provider: Flory Medina, ANA)1634 (Rate Documented - Provider: Flory Medina, ANA) 0551 (New Bag - Provider: Manisha Arzola RN) PRN Medication Order 11/13/2021 11/14/2021 11/15/2021 heparin injection 2,150 Units(Linked Group 1) 2,150 Units (rounded from 2,163 Units = 35 Units/kg ? 61.8 kg Adjusted weight), intravenous, PRN, Starting on 11/12/21 at 0216, Until 11/15/21 at 1614, Other, Per Heparin Protocol, Routine 0821 (Given - Provider: Maribel Haywood RN) 0850 (Given - Provider: Flory Medina, RN) heparin injection 4,350 Units(Linked Group 1) 4,350 Units (rounded from 4,326 Units = 70 Units/kg ? 61.8 kg Adjusted weight), intravenous, PRN, Starting on 11/12/21 at 0216, Until 11/15/21 at 1614, Other, Per Heparin Protocol, Routine 0821 (See Alternative - Provider: Maribel Haywood RN) 0850 (See Alternative - Provider: Flory Medina, ANA) lidocaine (PF) 10 mg/mL (1 %) injection 2 mg 2 mg, intradermal, PRN, 4 doses, Starting on 11/12/21 at 0501, Until 11/15/21 at 1614, Other, peripheral intravenous catheter placement, Routine nitroglycerin (NITROSTAT) SL tablet 0.4 mg 0.4 mg, sublingual, EVERY 5 MIN PRN, Starting on 11/12/21 at 0436, Until 11/15/21 at 1614, Chest Pain, Routine polyethylene glycol 3350 (MIRALAX) packet 17 g 17 g, oral, DAILY PRN, Starting on 11/12/21 at 0501, Until 11/15/21 at 1614, Constipation, Routine ramelteon (ROZEREM) tablet 8 mg 8 mg, oral, AT BEDTIME PRN, Starting on 11/12/21 at 0501, Until 11/15/21 at 1614, Sleep, Routine Linked Groups Order Group 1: heparin injection 4,350 UnitsJump to med 4,350 Units (rounded from 4,326 Units = 70 Units/kg ? 61.8 kg Adjusted weight), intravenous, PRN, Starting on 11/12/21 at 0216, Until 11/15/21 at 1614, Other, Per Heparin Protocol, Routine Or heparin injection 2,150 UnitsJump to med 2,150 Units (rounded from 2,163 Units = 35 Units/kg ? 61.8 kg Adjusted weight), intravenous, PRN, Starting on 11/12/21 at 0216, Until 11/15/21 at 1614, Other, Per Heparin Protocol, Routine documented in this encounter Orders Medications Ordered That Anant ht Not Have Been Administered Count Last Ordered Date First Ordered Date heparin injection 4,350 Units 1 11/12/2021 lidocaine (PF) 10 mg/mL (1 % ) injection 2 mg 1 11/12/2021 nitroglycerin (NITROSTAT) SL tablet 0.4 mg 1 11/12/2021 polyethylene glycol 3350 (FL RALAX) packet 17 g 1 11/12/2021 ramelteon (ROZEREM) tablet 8 mg 1 Nursing Count Last Ordered Date First Orde red Date CALL HOSPITALIST FOR ADM/REF KARLOS TO [facility] NURSE 1 11/12/2021 CALL PHYSICIAN SPECIALTY CONSULT 1 11/12/19 CALL TRANSFER CENTER [facility] 1 11/12/2021 VTE PHARMACOLOGIC PROPHYLAXI S CURRENTLY ORDERED OR ON ALTERNATIVE THER 1 11/12/2021 Admission Count Last Ordered Date First Orde red Date ADMIT TO INPATIENT 1 11/12/2021 Transfer Count Last Ordered Date First Orde red Date ED BED REQUEST 1 11/12/2021 Discharge Count Last Ordered Date First Orde red Date DISCHARGE PATIENT 1 11/15/2021 documented in this encounter Care Teams Ep Tech Relationship Specialty Start Date End Date Nivia Tinsley MD [address] [place], [place] [id number] PCP - General Family Medicine - Primary Care 08/27/19 Zheng Tapia MD [address] [place] [address] [address] [place] [address] Internal Medicine - Primary Care 09/01/19 Shazia Burks MD [address] [place], [place] [address] Neurology 09/01/19 Tony Baron OD [address] [place] [phone] Family And Consumer Education Teacher 09/01/19 Keira Paniagua MD [address] [place] [phone] Cardiovascular Disease 09/06/20 Siva Perkins MD [address] [place] [phone] Neurology 09/06/20 documented as of this encounter
--- OUTSIDE RECORDS SUMMARY | 2024-04-29 18:22 | XMS_ITS | Encounter Summary ---
Author Organization [facility] Address [address] [place] [address] Care Team Providers Care Research Geneticist Name Role Phone Nivia Tinsley MD Primary Care Provider Zheng Tapia MD Unavailable Shazia Burks MD Unavailable [phone] Tony Baron OD Unavailable [phone] Keira Paniagua MD Unavailable [phone] Siva Perkins MD Unavailable [phone] Reason for Visit * Reason Onset Date Comments Medication Management 05/25/2021 Encounter Details Date Type Department Care Team (Late st Contact Info) Description 05/25/2021 Telephone [facility] Integr[facility] Family Medicine [facility] [address] [place], [place] [phone] Nivia Tinsley MD [address] [place] [address] Medication Management Social History Tobacco [...] Date End Da te hydrocortisone 1 % ointmentIndications:Aller gic rash present on examination Apply to affected area TID PRN 56 g 05/25/2021 10/21/2021 documented in this encounter Miscellaneous Notes * Telephone Encounter - Cassy Cevallos - 05/25/2021 0919 EDT Pt notified it was resent. * Telephone Encounter - Cassy Cevallos - 05/25/2021 0858 EDT Pt went to burr picker her prescriptions and her cortizone cream wasn't in what she picked up; would like to know why. documented in this encounter Plan of Treatment Upcoming Encounters Date Type Department Care Team (Late st Contact Info) Description 06/11/2024 12:45 EDT Office Visit [facility] Ophthalmology - [address] [address] Santiago Anthony MD [address] [place] [address], [facility] [address] [place] [address] 07/15/2024 10:45 EDT Office Visit [facility] Cardiology Clinic [address] [place], [place] [address] Gianfranco Flowers MD [address] [facility] [address] [place] [phone] documented as of this encounter Visit Diagnoses Diagnosis Allergic rash present on examination- Primary documented in this encounter Discontinued Medications Medication Sig Discontinue Reason Start Date End Da te hydrocortisone 1 % ointmentIndications:Jose Martin rgic rash present on examination Apply to affected area TID PRN Reorder 05/23/2021 05/25/2021 documented as of this encounter Care Teams Research Geneticist Relationship Specialty Start Date End Date Nivia Tinsley MD [address] [place] [address] PCP - General Family Medicine - Primary Care 08/27/19 Zheng Tapia MD [address] [place] [address] [address] [place] [address] Internal Medicine - Primary Care 09/01/19 Shazia Burks MD [address] [place] [address] Neurology 09/01/19 Tony Baron OD [address] [place] [phone] Rn Military 09/01/19 Keira Paniagua MD [address] [place] [address] [address] [place] [address] Cardiovascular Disease 09/06/20 Siva Perkins MD [address] [facility] [place] [address] Neurology 09/06/20 documented as of this encounter
--- OUTSIDE RECORDS SUMMARY | 2024-04-29 18:22 | XMS_ITS | Encounter Summary ---
Author Organization [facility] Address [address] [place] [address] Care Team Providers Care Forming Tube Selector Name Role Phone Nivia Tinsley MD Primary Care Provider Zheng Tapia MD Unavailable Shazia Burks MD Unavailable [phone] Tony Baron OD Unavailable [phone] Keira Paniagua MD Unavailable [phone] Siva Perkins MD Unavailable [phone] Reason for Visit * Reason Onset Date Comments Medications Refill 06/20/2021 Encounter Details Date Type Department Care Team (Late st Contact Info) Description 06/20/2021 Telephone [facility] [address] [place], [place] [phone] Nivia Tinsley MD [address] [place], [place] [phone] Medications Refill Social History Tobacco Use Types [...] Telephone Encounter - Nivia Tinsley MD - 06/20/2021 1447 EDT Let's see how she does without it. She should finish up the Carafate, and see if her GERD symptoms return off the Omeprazole. * Telephone Encounter - Jaja Thomason RN - 06/20/2021 1407 EDT Spoke with patient. She indicated that her helper noted that her pill box for the Omeprazole was empty and that it needed a refill so she called in to ask for it.What does she know, she's not medical. She didn't seem to care one way or the other. She didn't have any complaints other than how the 4x day dosing of the Carafate made her throw up so now she's just taking it one time a day before breakfast. I informed her I'd let you know I spoke with her and will let her know if you indeed see a need to refill. * Telephone Encounter - Nivia Tinsley MD - 06/20/2021 1329 EDT Does she still fell that she needs it?? * Telephone Encounter - Sherly Mei, ANA - 06/20/2021 1316 EDT [facility] - 05/23/21 NOV - 12/26/21 Rx'd 05/23/21 for 30 days NR - did you intend for this to be a short-term rx or OK to refill? * Telephone Encounter - Cassy Cevallos - 06/20/2021 1152 EDT Pt needs a refill of omeprazole to; confirmed Gu[facility]o Blanca documented in this encounter Plan of Treatment Upcoming Encounters Date Type Department Care Team (Late st Contact Info) Description 06/11/2024 12:45 EDT Office Visit [facility] Ophthalmology - [place] [address] [place], [place] [phone] Santiago Anthony MD [address] [place] [address] 5 [place] [address] 07/15/2024 10:[address] [facility] Cardiology Clinic [address] [place], [place] [phone] Gianfranco Flowers MD [address] [facility] [address] [place] [address] documented as of this encounter Visit Diagnoses Not on filedocumented in this encounter Care Teams Forming Tube Selector Relationship Specialty Start Date End Date Nivia Tinsley MD [address] [place] [address] PCP - General Family Medicine - Primary Care 08/27/19 Zheng Tapia MD [address] [place] [address] [address] [place] [address] Internal Medicine - Primary Care 09/01/19 Shazia Burks MD [address] [place], [place] [address] Neurology 09/01/19 Tony Baron OD [address] [place] [phone] Applications Systems Analyst 09/01/19 Keira Paniagua MD [address] [place] [phone] Cardiovascular Disease 09/06/20 Siva Perkins MD [address] [facility] [place] [address] Neurology 09/06/20 documented as of this encounter
--- OUTSIDE RECORDS SUMMARY | 2024-04-29 18:22 | XMS_ITS | Encounter Summary ---
Author Organization [facility] Address [address] [place] [address] Care Team Providers Care Inside Sales Name Role Phone Nivia Tinsley MD Primary Care Provider Zheng Tapia MD Unavailable Shazia Burks MD Unavailable [phone] Tony Baron OD Unavailable Keira Paniagua MD Unavailable [phone] Siva Perkins MD Unavailable [phone] Reason for Visit * Auth/Cert Specialty Diagnoses / Procedures Referred By Lesa alves Referred To Contact Diagnoses NSTEMI Referral ID Status Reason Start Date Expiration Date Visits Re quested Visits Authorized [id number] 1 1 Encounter Details Date Type Department Care Team (Late st Contact Info) Description 11/15/2021 16:14 EST - 11/17/2021 16:30 EST Hospital Encounter [facility] [address], [place] [address] Molly Palm MD [address] [facility] [address] [place] [address] Carlos Dolan MD [address] [facility] [address] [place] [phone] NSTEMI (non-ST elevated myocardial infarction) ([facility]) ([facility]) (Primary Dx); Hypertension, unspecified type; Hyperlipidemia, unspecified hyperlipidemia type; Decreased visual acuity; Basilar artery stenosis/occlusion with infarction (HCC) ([facility]); Shuffling gait Discharge Disposition: Home-Health Care Svc Social History [...] Sign Reading Time Taken Comments Blood Pressure 145/67 11/17/2021 1308 EST Pulse - - Temperature 36.4 ??C (97.6 ??F) 11/17/2021 0802 EST Respiratory Rate 18 11/17/2021 0802 EST Oxygen Saturation 94% 11/17/2021 0802 EST Inhaled Oxygen Concentration - - Weight 70.6 kg (155 lb 11.2 oz) 11/17/2021 0438 EST Height 165.1 cm (5' 5) 11/15/2021 [...] this encounter Discharge Summaries * Beata Horton, MINDY - 11/17/2021 1421 EST Cardiology Discharge Summary Primary Care Provider: Nivia Tinsley Attending Physician: Molly Palm MD Admit Date: 11/15/2021 Discharge Date: 11/17/21 Disposition: Home or self care Problems and Procedures Admitting Diagnosis: NSTEMI (non-ST elevated myocardial infarction) ([facility]) ([facility]) Final Hospital Diagnosis: NSTEMI s/p PCI Additional Problems Managed in the Hospital Active Hospital Problems Diagnosis Date Noted ??? *NSTEMI (non-ST elevated myocardial infarction) ([facility]) ([facility]) 11/12/2021 Resolved Hospital Problems No resolved problems to display. Principal Procedure: Heart cath and Percutaneous coronary intervention Date: 11/15/2021 Anesthesia: A moderate level of anesthesia/conscious sedation was used in addition to local anesthesia. ?? Access: Right femoral artery and Right radial artery ?? Procedure: She was brought to [facility] for the procedure: [...] 26mm Leah SOCO dilated to 4.0mm. . ?? Plan: [...] Fall 2020) and GERD who came into [facility] on 11/12/21 with acute onset of epigastric pain and bilateral arm pain. She was found tohave an elevated troponin of 0.071 and an ECG showed T wave inversions in aVL and precordial leads.She was started on IV heparin. Her troponin peaked on 11/12/21 at 2.51. She was admitted to [facility] pending bed availability at [facility]. She remained stable during her admission at [facility]. She had a TTE on 11/14/21 that showed an LVEF of 58% and diastolic dysfuntion. She underwent a SPECT MPI on 11/15/21 that showed a medium-sized predominantly reversible defect in the mid- apical anterior and apical segments. She was transferred to [facility] on 11/15/21 for a left heart catheterization. [...] Carvedilol 6.[address] of [employer] Atenolol - Atorvastatin 40 mg daily (increased from [employer] dose of 10 mg) - Protonix 40 mg daily (in place of [employer] Prilosec) During admission the patient was noted to have a hemoglobin A1C of 6.9% [facility]. Follow up was requested with PCP and [facility] Cardiology. Pt was also referred for cardiac rehab evaluation at [facility]. The patient was cleared by physical therapy [...] 11/13/2021 Discharge Follow Up Appointments Scheduled with [facility] Upcoming Appointments Dec 26, 2021 11:00 ANNUAL WELLNESS MEDICARE with Nivia Tinsley MD [facility] Family [facility] (--) [address] [place] [address] Appointments Outside of [facility] We Will Schedule Follow-up appointments and procedures [facility] [place] I certify that this patient is under my care and that I, or another Medicare allowed practitioner (DO KARLENE, FRANKIE) working with me, had a zabn-kq-qqvd encounter with this patient on this date: [...] Requested: Physical Therapy Occupational therapy Nursing asessment FPC assessment needed related to this encounter: CP [...] be sent through Care Everywhere. * clopidogrel (Belizean) * carvedilol (Belizean) documented in this encounter Medications at Time [...] mcg/actuation nasal sprayIndications:Post-na janes drip Instill 1 [place] into both nostrils 2 times daily. 16 g 11 10/21/2021 04/10/2022 hydrocortisone 1 % ointmentIndications:Jose Martin rgic rash present on examination Apply to affected area TID PRN 56 g 10/21/2021 02/21/2022 levothyroxine (SYNTHROID) 100 mcg tabletIndications:Other specified hypothyroidism Take 1 Tablet by mouth daily. 30 Tablet 10/21/2021 12/06/2021 losartan (COZAAR) 100 mg tabletIndications:Essent ial hypertension 1 tab(s) orally once a day 30 Tablet 10/21/2021 12/06/2021 pantoprazole (PROTONIX) 40 mg tablet Take 1 Tablet by mouth daily. 90 Tablet 3 11/17/2021 12/06/2021 vit A,C & R-tksyds-vqkzkhtg (OCUVITE) 1,000 unit-200 mg-60 unit-2 mg tablet Take 1 tab by mouth daily 30 Tablet 10/21/2021 12/06/2021 documented as of this encounter [...] Disposition Code Departure Means Destination Home-Health Care [facility] Home documented in this encounter Progress Notes * Lela Sanchez INDUSTRIAL DESIGN INTERN - 11/17/2021 1347 EST CASE MANAGEMENT DISCHARGE NOTE DISCHARGE DATE/TIME: 11/17/2021 DESTINATION: Home TRANSPORTATION: Daughter STATISTICAL METHODS PROFESSOR/CHARGE/MD NOTIFIED (Y/N): Y IM SIGNED (Y/NA): JAYCE HOME HEALTH: [facility] for alf, PT, and OT RN REPORT: [facility] - [phone] DME: Pt has all necessary DME at home PHARMACY/PRESCRIPTIONS: THIS IS A MEDS TO BEDS PATIENT- If discharging to home please call outpatient pharmacy @ [phone] or page [phone] at discharge to have meds delivered to the bedside. Please notifypharmacy that patient is being discharged by calling [phone] prior to reviewing the AVS with the patient. MEDS TO BEDS UTILIZED : YES Patient and/or family who participated in discharge plan: [place] Ext [phone] Pager #[phone] * Camille Sullivan, FOZIA - 11/17/[address] [facility] Rehabilitation Therapy Acute Therapy [facility] Occupational Therapy Initial Evaluation and D/C Note [...] secondary to NSTEMI (non-ST elevated myocardial infarction) ([facility]) ([facility]). The patient lives at [address] [place] [address], [place] [address] Hand Dominance: Right Current Illness / Injury: Per MD H and P from 11/15: Chief Complaint: Epigastric pain, and bilateralarm pain HPI: Concetta Sullivan is am 81 year old female patient with a history significant for HTN and GERD who came into [facility] on 11/12/21 with acute onset of epigastric pain and bilateral arm pain. She endorses 3 days of intermittent back pain prior to this, but decided to call EMS when she had one hour of unremitting epigastric pain and arm pain. She described the epigastric pain as indigestion. She received 325mg of aspiring en route to [facility] ED. Upon arrival at [facility], she was found to have an elevated troponin of 0.071. ECG showed T wave inversions in aVL and precordial leads. She was startedon IV heparin. Her troponin peaked on 11/12/21 at 2.51. She was admitted to [facility] pending bed availability at [facility]. She remained stable during her admission at [facility]. She had a TTE on 11/14/21 that showed an LVEF of 58% and diastolic dysfuntion. She underwent a SPECT MPI on 11/15/21 that showed a medium-sized predominantly reversible defect in the mid-apical anterior and apical segments. She was transferred to [facility] on 11/15/21 for a left heart catheterization. [...] Needed physical assistance Previous / Ongoing Services: still operator helper Services Comments: Had been in OPPT in the fall but stopped 2/2 difficulty with transport in the winter. Is interested in returning. Medical/Surgical History: Current: The patient has Cerebral atherosclerosis; Gastro-esophageal reflux disease without esophagitis; Hyperlipidemia; Hypertension; Hypothyroidism, unspecified; Prediabetes; Shuffling gait; Vitamin D deficiency; Basilar artery stenosis/occlusion with infarction ([facility]); Decreased visual acuity; and NSTEMI (non-ST elevated myocardial infarction) ([facility]) ([facility]) on their problem list. 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 The patient has a past surgical history [...] D/C recommendation (home with continued support from carpet or rug layer helper as well as OT). Ptreported understanding with no barriers to learning. Patient/Family Education: Team Communication Team Communication Status: No communication needed at this time ASSESSMENT: Concetta Sullivan is an 81 year old female patient with a history significant for HTN and GERD who was transferred from [facility] on 11/15/21 due to an elevated troponin [...] Term Goals: Time Frame: Refer to LTGs Fpc Goals: Time Frame: Set and Met during [...] Cabral, PT - 11/17/[address] [facility] Rehabilitation Therapy Acute Therapy [facility] [place] [facility] Initial Evaluation/Discontinue Note Date of Service: 11/17/2021 Reason for Referral: Evaluate and treat Mobility Precautions Activity: Ambulate, Activity as tolerated SUBJECTIVE: Reporting Person Comment: I'm very careful. I don't want to fall! Pain Description: No pain reported during interview OBJECTIVE: Patient Profile: Patient is a 81 y.o. female admitted on 11/15/2021 secondary to NSTEMI (non-ST elevated myocardial infarction) ([facility]) ([facility]) The patient lives at [address] [place] [address], [address] [place] [phone] Support Support Person: Caregiver Amount of Support: [...] D deficiency; Basilar artery stenosis/occlusion with infarction ([facility]); Decreased visual acuity; and NSTEMI (non-ST elevated myocardial infarction) ([facility]) ([facility]) on their problem list. 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 The patient has a past surgical history that includes Colonoscopy (01/2007). Medications Current Medications: Current medications reviewed Arousal, Attention, and Cognition: Arousal/Alertness: Alert Following Commands: Follows all commands and directions without difficulty Cardiopulmonary: Pre AT=083/64 HR=67 Integumentary/Anthropometric: Skin Integrity Additional Comments: defer [...] Nurse When: Prior to therapy session By: Yhep-it-nfee communication About: pt status ASSESSMENT: The patient [...] is no longer home bound (had stopped /winter transportation issues). She has exceptional safety awareness [...] Cabral PT - 11/17/[address] [facility] Rehabilitation Therapy Acute Therapy [facility] Physical Therapy Contact Note Date of Service: [...] HTN and GERD who was transferred from [facility] on 11/15/21 due to an elevated troponin (peaked on 11/12/21 at 5.21), T wave inversions in the anterolateral leads, and a NM Spect study on 11/15/21 showing a reversible perfusion defect in th LAD territory. Events/ Procedures in the last 24 Hours: - NM spect study - Transfer from [facility] - Full code status for LHC and [...] Current Facility-Administered Medications Medication Route Frequency ??? [NOV Hold] acetaminophen (TYLENOL) tablet 650 mg oral [...] Hold] fluticasone propionate (FLONASE) nasal spray 1 Sunapee nasal - both BID ??? [NOV Hold] [...] HTN and GERD who was transferred from [facility] on 11/15/21 due to an elevated troponin [...] 40mg PO daily ?? HTN: - continue [employer] atenolol - continue [employer] losartan - amlodipine 5 mg daily ?? Hypothyroidism: - continue [employer] synthroid ?? Code status: Patient previously DNR/okay for trial of intubation. After discussing on 2 AM, she is amenable to switching her code status to FULL CODE for cardiac catheterization and 48 hours afterthe procedure. VTE Prophylaxis Seqential Compression Device and Ambulate, heparin gtt (switch to lovenox injections if stents are placed) Discharge Plan Pending clinical course/cardiac catheterization Agus Harman, 3 11/16/2021 8:31 Pager #[phone] I was present with the medical student for the history, exam, and medical decision making documented. I have edited the medical student note as appropriate. Beata Anthony MD Internal Medicine, PGY-3 pager [phone] 11/16/21 10:31 * Gaby Sheikh RN - 11/16/2021 0808 EST The following assessment was completed at [facility] prior to transfer to [facility]. CM will continue to follow. Gaby Sheikh RN [facility] #[phone] Initial Case Management/Social Work Assessment and Discharge Plan/Readmission Risk Assessment ?? REASON FOR ADMISSION: NSTEMI (non-ST elevated myocardial infarction) ([facility]) ([facility]) Patient understands reason for admission: Yes ?? PATIENT INFO VERIFIED: PCP, Contact Info, Address Type of housing (single family, condo, apartment, senior living, single room occupancy, [facility] funded hotel room, group fci) - Single family one level home Who does the patient live with? Alone Does the patient have access to their own bedroom/bathroom/kitchen - or is it shared with others? Yes Name of housing complex (ex [place] [facility], [facility], etc)- n/a Housing Authority/Managing Organization - n/a Community Care Providers (counseling case manager, [facility] nurse, etc) name and contact information- n/a ?? LIVING ARRANGEMENTS AND ACCESSIBILITY ISSUES: Living Arrangements: Alone, Home care staff Levels: 1 Stairs to enter: 0 Handicap access: None Bathroom located on bedroom level?: Yes ?? What in home social supports are available to the patient? Home care staff Is 23/04 care available? No ?? ADVANCED DIRECTIVES, POA &/or COLST IN PLACE: Healthcare Directive: Yes, patient has advance directive for healthcare treatment Type of Healthcare Directive: Durable power of contracts attorney for health care Copy in Chart: No, copy requested from family DIRECTIVES FOR FINANCES: Directive For Finances: No ?? TRANSPORTATION: Transportation: (Friend Brinda Pringle) Patient expects to be discharged to: Home Vs. Transfer to [facility] ?? CULTURAL, JUDAISM and/or LANGUAGE factors affecting health care/discharge planning: Spiritual/Cultural Requests: None ?? Insurance Information: Medical Insurance: Yes Type of insurance: Medicare, Supplemental plan to Medicare Medicare type: A, B Supplemental: [facility] Referred to patient financial services: No ?? Nutrition: ?? DISCHARGE RISK ASSESSMENT: Total # selected above: ?? Tentative plan to address the risk of re-hospitalization for those at HIGH MODERATE RISK: ?? RAPT TOOL: Patient expects to be discharged to: Home Vs. Transfer to [facility] ?? SBIRT: ?? FUNCTIONAL STATUS: Activities patient requires assistance: Bathing, Age appropriate Assistive Devices: Walker, Wheelchair, Shower chair, Grab bars Walker type: Front wheel ?? COMMUNITY RESOURCES/SUPPORTS: Primary Care Provider: Nivia Tinsley PCP Verified: Specialists: None Type of Home Health Services: None DME Provider: Pharmacy: [facility] [address] [place] [phone] ?? [facility] [address] - [place], [place] - [address] [facility] [address] [facility] [address] ?? Home Health: Open to [facility] if needed over [facility] when given a choice Other: ?? POST HOSPITAL TRANSITION PLAN: Home vs. Transfer to [facility] Concetta confirms her PCP, demographics, pharmacy, and supports. ?? She states that she lives alone in the [place] [facility] [facility]. She shares that her apartment is all [...] MOW or [employer] and is open to [facility] on discharge over [facility] if home health is ordered. She think she has an AD filled out, one not found in registry or chart. Concetta states her daughter Melani is her agent. ?? On dc, she states her neighbor or a caregiver through [facility] will be her ride home, CM or she would need to call them. She may transfer to [facility] when a bed opens depending on her treatment choices with MD. DONOHUE to follow. ?? Stacy Shah 11/12/2021 8:48 documented in this encounter H&P Notes * Beata Anthony MD - 11/15/2021 7341 EST Images from the original note were not included. Cardiology Admitting H&P Inpatient Admit Date: 11/15/21 Initial Observation Date (if different): 11/15/2021 Date of Service: 11/15/2021 PCP: Nivia Tinsley Code Status: Full Code Chief Complaint: Epigastric pain, and bilateral arm pain HPI: Concetta Sullivan is am 81 year old female patient with a history significant for HTN and GERD who came into [facility] on 11/12/21 with acute onset of epigastric pain and bilateral arm pain. She endorses 3 days of intermittent back pain prior to this, but decided to call EMS when she had one hour of unremitting epigastric pain and arm pain. She described the epigastric pain as indigestion. She received 325mg of aspiring en route to [facility] ED. Upon arrival at [facility], she was found to have an elevated troponin of 0.071. ECG showed T wave inversions in aVL and precordial leads. She was started on IV heparin. Her troponin peaked on 11/12/21 at 2.51. She was admitted to [facility] pending bed availability at [facility]. She remained stable during her admission at [facility]. She had a TTE on 11/14/21 that showed an LVEF of 58% and diastolic dysfuntion. She underwent a SPECT MPI on 11/15/21 that showed a medium-sized predominantly reversible defect in the mid- apical anterior and apical segments. She was transferred to [facility] on 11/15/21 for a left heart catheterization. She endorses mild shortness of breath currently, as well as dizziness last night. She denies any chest pain/pressure, abdominal pain, nausea, vomiting, or current dizziness or lightheadedness. PMH PSH Past Medical History: Diagnosis Date ??? 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 Cerebrovascular accident ([facility]) ([facility]) 09/02/2019 ??? Coronary artery disease involving napaimute coronary artery of napaimute heart without angina pectoris 09/02/2019 ??? Thalamic stroke ([facility]) ([facility]) 04/19/2020 Past Surgical History: Procedure Laterality Date [...] Take 1 Tablet by mouth daily. 30 [id number] ??? fluticasone propionate (FLONASE) 50 mcg/actuation nasal spray Instill 1 [place] into both nostrils 2 times daily. 16 [...] capsule 11 ? ? vit A,C & E-fishoc-gqiukbba (OCUVITE) 1,000 unit-200 mg-60 unit-2 mg tablet [...] significant for HTN andGERD, who presented to [facility] on 11/12/21 with acute onset of epigastric pain and bilateral arm pain, had an elevated troponin peaking at 2.51 with T wave inversions on the anterolateral leads, who was transferred to [facility] on 11/15/21 for a left heart catheterization for a presumed type I NSTEMI. She has remained stable during her hospital course at [facility]. Plan : NSTEMI: SPECT MPI on 11/15/21 that showed a medium-sized predominantly reversible defect in the mid-apical anterior and apical segments, in the territory of the LAD. This correlates with the anterolateral T wave inversions on ECG. - [facility] tomorrow - heparin gtt - aspirin 81mg PO daily - atorvastatin 40mg PO daily HTN: - continue [employer] atenolol - continue [employer] losartan - add amlodipine 5 mg daily Hypothyroidism: - continue [employer] synthroid Code status: DNR/okay for trial of intubation (patient amenable to discussing code status further before proceeding with catheterization) VTE Prophylaxis: Seqential Compression Device and Ambulate, heparin gtt Discharge Plan: pending clinical course Agus Harman, 3 11/15/2021 18:34 Pager #[phone] I was present with the medical student for the history, exam, and medical decision making documented. I have edited the medical student note as appropriate. Beata Anthony MD Internal Medicine, PGY-3 pager [phone] 11/15/21 18:34 Associated attestation - Carlos Dolan MD - 11/16/2021 1342 EST I have seen and evaluated the patient on 09/15/22. I agree with the assessment and plan as outlinedby Dr. Anthony. Carlos Dolan MD [facility] documented in this encounter Procedure Notes [...] artery Procedure: She was brought to [facility] for the procedure: [...] procedural complication required) Molly Palm MD PagerNumber: [phone] 11/16/2021 10:30 * Gaby Medina RN - 11/15/20212029 EST Ultrasound dynamic guidance was used for peripheral line insertion. Name of advertising inserter: Gaby Medina RN vat LDAINFO BLOCK Peripheral [...] Care - Hallie Pro RN - 11/16/2021 0896 EST Data: Patient admitted for chief complaint of chest pain, now NSTEMI. Pt denies chest pain or shortness of breath. Is SR in the 60's on telemetry. SBP elevated this AM, 150's. Pt c/o urinary hesitancy, but able to void. Pt stood well and transferred self to stretcher for transport. Uses call light appropriately. Heparin infusing per protocol. Scheduled for [facility] today. Action: Telemetry monitored. VS/Neuros. Education. Hourly [...] Pt resting comfortably in bed. Plan for [facility] today. Marcela Kingston RN 11/16/2021 4:12 Problem: [...] Care - Darius Cole MD - 11/15/2021 0279 EST Brief Final Inspector Addendum to Admitting H&P Please see H&P for further details regarding history and plan. Concetta Sullivan is an 81 year old female with history of hypertension, hyperlipidemia, prior stroke with functional limitation (mobilizes with wheelchair, lives alone and functionally independent with ADLs) and newly diagnosed type 2 diabetes who presents as a transfer from [facility] with NSTEMI. Initiallypresented to [facility] on 11/12/21 with chest pain, nausea and [...] catheterization if recommended. COVID-19 test negative at [facility]. Prior to transfer underwent SPECT MPI on 11/15/21 that showed a medium-sized predominantly reversible defect in the mid-apical anterior and apical segments. Arrived to [facility] chest pain-free, hemodynamically stable without signs of [...] Some of this note was transcribed with [employer] Micro[employer]ures[employer] software. While it was proofread, it may still contain unnoticed grammatical or word errors due to incorrect transcribing. Darius Cole MD Final Inspector documented in this encounter Plan of Treatment Upcoming Encounters Date Type Department Care Team (Late st Contact Info) Description 06/11/2024 12:45 EDT Office Visit [address] [address] Santiago Anthony MD [address] [place] [address] [address] [place] [address] 07/15/2024 10:45 EDT Office Visit [facility] [address] [place], [place] [id number] Gianfranco Flowers MD [address] [facility] [address] [place] [address] documented as of this encounter [...] EST) 11/21/2021 13:3 1 EST Scan 2 Wash Tub Machine Operator PROCEDURE/MINOR KAYLA GICAL ORDERABLES * ECG REPORT - SCANNED (11/21/2021 13:31 EST) 11/21/2021 13:3 1 EST Scan 2 Wash Tub Machine Operator PROCEDURE/MINOR KAYLA GICAL ORDERABLES * (ABNORMAL) POCT GLUCOSE, INTERFACED (11/17/2021 12:11 EST) Glucose, POC 133(H) 70 - 100 mg/dL 11/17/2021 12:12 EST [facility] HN LAB POC COMMENT (GLUCOSE) Test Performed by Nursing Services 11/17/2021 12:12 EST [facility] Blood CAPILLARY BLOOD / Unknown 11/17/2021 12:11 EST 11/17/2021 12:12 EST Beata Horton DNP POINT OF CARE TEST O RDERANATALIE Performing Organization Address [facility] Co de Phone Number [facility] [address] [place] [address] * (ABNORMAL) POCT GLUCOSE, INTERFACED (11/17/2021 8:03 EST) Glucose, POC 146(H) 70 - 100 mg/dL 11/17/2021 8:08 EST [facility] HN LAB POC COMMENT (GLUCOSE) Test Performed by Nursing Services 11/17/2021 8:08 EST [facility] Blood CAPILLARY BLOOD / Unknown 11/17/2021 8:03 EST 11/17/2021 8:08 EST Beata Horton DNP POINT OF CARE TEST O DURAN Performing Organization Address City/[facility]/ZIP Co de Phone Number [facility] [address] [place] [address] * MAGNESIUM (11/17/2021 6:39 EST) Magnesium 1.9 1.7 - 2.8 mg/dL 11/17/2021 8:00 EST [facility] Blood VENOUS BLOOD / Unknown Venipuncture / Unknown 11/17/2021 6:39 EST 11/17/2021 7:25 EST Beata Anthony MD CHEMISTRY & BLOOD GA S ORDERABLES Performing Organization Address City/[facility]/ZIP Co de Phone Number [facility] [address] [place] [address] * COMPLETE BLOOD COUNT (11/17/2021 6:39 EST) WBC 7.93 4.00 - 12.40 K/cmm 11/17/2021 7:42 [facility] RBC 3.96 3.86 - 5.04 M/cmm 11/17/2021 7:42 [facility] Hemoglobin 12.8 11.6 - 15.2 gm/dL 11/17/2021 7:42 [facility] HCT 37.2 34.9 - 44.4 % 11/17/2021 7:42 [facility] MCV 94 81 - 98 fl 11/17/2021 7:42 [facility] MCH 32.3 26.7 - 33.3 pg 11/17/2021 7:42 [facility] MCHC 34.4 32.1 - 35.9 gm/dL 11/17/2021 7:42 [facility] RDW-CV 14.0 <14.7 % 11/17/2021 7:42 [facility] RDW-SD 48.0 <50.4 fl 11/17/2021 7:42 [facility] PLT 198 141 - 377 K/cmm 11/17/2021 7:42 [facility] MPV 10.8 9.5 - 12.7 fl 11/17/2021 7:42 [facility] Blood VENOUS BLOOD / Unknown Venipuncture / Unknown 11/17/2021 6:39 EST 11/17/2021 7:24 EST Beata Anthony MD HEMATOLOGY & PF4 ORD ERABLES Performing Organization Address City/[facility]/ZIP Co de Phone Number [facility] [address] [place] [address] * (ABNORMAL) BASIC METABOLIC PANEL (BMP) (11/17/2021 6:39 EST) Sodium 135(L) 136 - 145 mmol/L 11/17/2021 8:00 [facility] Potassium 4.3 3.5 - 5.0 mmol/L 11/17/2021 8:00 [facility] Chloride 104 96 - 110 mmol/L 11/17/2021 8:00 [facility] CO2 Total 19(L) 22 - 32 mmol/L 11/17/2021 8:00 [facility] Anion Gap 12 5 - 14 11/17/2021 8:00 [facility] Glucose 140(H) 70 - 100 mg/dL 11/17/2021 8:00 [facility] Calcium 9.2 8.5 - 10.5 mg/dL 11/17/2021 8:00 [facility] BUN 16 10 - 26 mg/dL 11/17/2021 8:00 [facility] Creatinine 0.77 0.52 - 1.04 mg/dL 11/17/2021 8:00 [facility] eGFR 72 >60 mL/min/1.73 m2 11/17/2021 8:00 [facility] Blood VENOUS BLOOD / Unknown Venipuncture / Unknown 11/17/2021 6:39 EST 11/17/2021 7:25 EST Beata Anthony MD CHEMISTRY & BLOOD GA S ORDERABLES Performing Organization Address City/State/[facility] Co de Phone Number [facility] [address] [place] [address] * (ABNORMAL) POCT GLUCOSE, INTERFACED (11/16/2021 20:22 EST) Glucose, POC 165(H) 70 - 100 mg/dL 11/16/2021 20:23 [facility] HN LAB POC COMMENT (GLUCOSE) Test Performed by Nursing Services 11/16/2021 20:23 [facility] Blood CAPILLARY BLOOD / Unknown 11/16/2021 20:22 EST 11/16/2021 20:23 EST Beata Horton DNP POINT OF CARE TEST O RDERABLES Performing Organization Address [facility] Co de Phone Number [facility] [address] [place] [address] * (ABNORMAL) POCT GLUCOSE, INTERFACED (11/16/2021 18:37 EST) Glucose, POC 115(H) 70 - 100 mg/dL 11/16/2021 18:42 EST [facility] HN LAB POC COMMENT (GLUCOSE) Test Performed by Nursing Services 11/16/2021 18:42 EST [facility] Blood CAPILLARY BLOOD / Unknown 11/16/2021 18:37 EST 11/16/2021 18:42 EST Beata Horton DNP POINT OF CARE TEST O RDERABLES Performing Organization Address [facility] Co de Phone Number [facility] [address] [place] [address] * ECG REPORT - SCANNED (11/16/2021 15:26 EST) 11/16/2021 15:2 6 EST Scan 2 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 [facility] ? Test Date: ?2021-11-16 Pat Name: ? CONCETTA SULLIVAN ? Department: ?? [facility] 4 ? Room: ? [id number] Gender: ? Female ? 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 [id number] : ?1940 ? Requested By: DOLAN TRACE C Order Number: [id number] ? Reading MD: ?? CARRINGTON MURRAY MD ? Measurements Intervals ?[place] ? Rate: ? 51 ? P: ?55 MA: ? 252 ?QRS: ?-52 QRSD: ? 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 Study Date: ? 11/16/2021 ? Accession #: ?[id number] : ? 1940 Referring: Beata Anthony Diagnostic Attending: ??Molly Palm Interventional Attending: ?? Molly Palm Diagnostic Fellow: Nevin Shepard MD ATTESTATION: I, Dr. Nevin Shepard was the initial author of this report. [...] 1. HPI and indications: Chest pain. Dyspnea. [id number] myocardial ?? infarction. Cerebrovascular disease. 2. LAD: [...] 4. Continue aspirin. HISTORY: Chest pain. ??Dyspnea. ??[id number] myocardial infarction. Cerebrovascular disease. ??Risk factors: ??Hypertension. [...] 4. Right radial artery access. A 6FR/.021 [place] Sheath Slender sheath ?? was advanced into [...] CLOTTING TIME, KAOLIN ISTAT (11/16/2021 10:19 EST) [facility] Activated Clotting Time, Arterial, i-STAT 261(H) 74 - 137 Seconds 11/16/2021 10:34 EST [facility] Blood ARTERIAL BLOOD / Unknown 11/16/2021 10:19 EST 11/16/2021 10:34 EST Narrative [facility] - 11/16/2021 10:34 EST Therapeutic Interventional range is dependent upon patient population and procedure type Test Performed by Cardiology Carlos Dolan MD POINT OF CARE TEST O RDERABLES Performing Organization Address [facility] Co de Phone Number [facility] [address] [place] [address] * (ABNORMAL) POCT ACTIVATED CLOTTING TIME, KAOLIN ISTAT (11/16/2021 10:01 EST) Activated Clotting Time, Arterial, i-STAT 225(H) 74 - 137 Seconds 11/16/2021 10:17 EST [facility] Blood ARTERIAL BLOOD / Unknown 11/16/2021 10:01 EST 11/16/2021 10:17 EST Narrative [facility] - 11/16/2021 10:17 EST Therapeutic Interventional range is dependent upon patient population and procedure type Test Performed by Cardiology Carlos Dolan MD POINT OF CARE TEST O RDERANATALIE Performing Organization Address [facility] Co de Phone Number [facility] [address] [place] [address] * MAGNESIUM (11/16/2021 2:46 EST) Magnesium 1.9 1.7 - 2.8 mg/dL 11/16/2021 3:25 EST [facility] Blood VENOUS BLOOD / Unknown Venipuncture / Unknown 11/16/2021 2:46 EST 11/16/2021 2:58 EST Beata Anthony MD CHEMISTRY & BLOOD GA S ORDERABLES Performing Organization Address [facility] Co de Phone Number [facility] [address] [place] [address] * COMPLETE BLOOD COUNT (11/16/2021 2:46 EST) WBC 7.45 4.00 - 12.40 K/cmm 11/16/2021 3:00 [facility] RBC 3.86 3.86 - 5.04 M/cmm 11/16/2021 3:00 [facility] Hemoglobin 12.5 11.6 - 15.2 gm/dL 11/16/2021 3:00 [facility] HCT 36.3 34.9 - 44.4 % 11/16/2021 3:00 [facility] MCV 94 81 - 98 fl 11/16/2021 3:00 [facility] MCH 32.4 26.7 - 33.3 pg 11/16/2021 3:00 [facility] MCHC 34.4 32.1 - 35.9 gm/dL 11/16/2021 3:00 [facility] RDW-CV 13.8 <14.7 % 11/16/2021 3:00 [facility] RDW-SD 47.1 <50.4 fl 11/16/2021 3:00 [facility] PLT 204 141 - 377 K/cmm 11/16/2021 3:00 [facility] MPV 11.1 9.5 - 12.7 fl 11/16/2021 3:00 [facility] Blood VENOUS BLOOD / Unknown Venipuncture / Unknown 11/16/2021 2:46 EST 11/16/2021 2:51 EST Beata Anthony MD HEMATOLOGY & PF4 ORD ERABLES Performing Organization Address City/State/[facility] Co de Phone Number [facility] [address] [place] [address] * (ABNORMAL) BASIC METABOLIC PANEL (BMP) (11/16/2021 2:46 EST) Sodium 135(L) 136 - 145 mmol/L 11/16/2021 3:25 [facility] Potassium 4.1 3.5 - 5.0 mmol/L 11/16/2021 3:25 [facility] Chloride 103 96 - 110 mmol/L 11/16/2021 3:25 [facility] CO2 Total 24 22 - 32 mmol/L 11/16/2021 3:25 [facility] Anion Gap 8 5 - 14 11/16/2021 3:25 [facility] Glucose 158(H) 70 - 100 mg/dL 11/16/2021 3:25 [facility] Calcium 9.2 8.5 - 10.5 mg/dL 11/16/2021 3:25 [facility] BUN 19 10 - 26 mg/dL 11/16/2021 3:25 [facility] Creatinine 0.82 0.52 - 1.04 mg/dL 11/16/2021 3:25 [facility] eGFR 66 >60 mL/min/1.73 m2 11/16/2021 3:25 [facility] Blood VENOUS BLOOD / Unknown Venipuncture / Unknown 11/16/2021 2:46 EST 11/16/2021 2:58 EST Beata Anthony MD CHEMISTRY & BLOOD GA S ORDERABLES Performing Organization Address City/State/[facility] Co de Phone Number [facility] [address] [place] [address] * HEPARIN LEVEL - UNFRACTIONATED HEPARIN (11/16/2021 2:46 EST) Heparin Level-UFH 0.41 Therapeutic Range: 0.30 - 0.70 IU/mL 11/16/2021 3:07 EST [facility] Comment:Unfractionated hepar in [...] Dolan MD HEMATOLOGY & PF4 ORD ERABLES [facility] [address] [place] [address] * POC US VAT LINE PLACEMENT (11/15/2021 20:27 EST) Narrative 11/15/2021 20:27 EST This is a non-reportable exam. 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 Shuffling gait Abnormality of gait NSTEMI (non-ST elevated myocardial infarction) (HCC-CMS) Acute [...] Until Sun11/17/21 at 1859, Pain, Routine, Release amLODIPine (NORVASC) tablet 5 mg 5 mg, oral, DAILY, First dose on Sun11/15/21 at 2015, Until Discontinued, Routine Given 11/16/2021 8:02 EST 5 mg aspirin chewable tablet 81 mg 81 mg, oral, DAILY, First dose on Sun11/16/21 at 0900, Until Discontinued, Routine Given 11/17/2021 8:05 EST 81 mg Given 11/16/2021 8:01 EST 81 mg atenoloL (TENORMIN) tablet 25 mg 25 mg, oral, DAILY, First dose on Sun11/16/21 at 0900, Until Discontinued, Routine Given 11/16/2021 8:02 EST 25 mg atorvastatin (LIPITOR) tablet 40 mg 40 [...] Discontinued, Routine, Release Given 11/17/2021 8:05 EST 75 mg dextrose 50 % solution 12.5 g 12.5 g (25 mL), intravenous, PRN, Starting on Sun11/16/21 at 1411, Until Sun11/17/21 at 1859, Low Blood Sugar, Routine glucagon injection 1 mg 1 mg, intramuscular, PRN, Starting on Sun11/16/21 at 1411, Until Sun11/17/21 at 1859, Other, Low blood sugar, Routine heparin in 10/02 NS 25,000 unit/250 mL infusion 18.5 Units/kg/hr ? 62.2 kg Adjusted weight (11.507 mL/hr, rounded to 11.5 mL/hr), intravenous, CONTINUOUS, Starting on Sun11/15/21 at 1700, Until Sun11/15/21 at 1749, Routine New Bag 11/15/2021 17:07 EST 18.5 Units/kg/hr 11.5 mL/hr heparin in 10/02 NS 25,000 unit/250 mL infusion 18 Units/kg/hr ? 62.1 kg Adjusted weight (11.178 mL/hr, rounded to 11 mL/hr), intravenous, CONTINUOUS, Starting on Sun11/15/21 at 1930, Until Sun11/16/21 at 1149, STAT Rate Change 11/15/2021 21:08 EST 18 Units/kg/hr 11 mL/hr insulin aspart U-100 (NOVOLOG FLEXPEN) injection subcutaneous, [...] 1748, Until Sun11/17/21 at 1859, insomnia, Routine pantoprazole (PROTONIX) tablet 40 mg 40 [...] Until Karrie 11/17/21 at 1859, Constipation, Routine sodium chloride 0.9 % (NS) infusion at 75 mL/hr, intravenous, CONTINUOUS, Starting on Sun11/16/21 at 1100, Until Sun11/16/21 at 1510, Routine New Bag 11/16/2021 11:11 EST 75 mL/hr documented in this encounter Discontinued Medications Medication [...] Provider: Hallie Pro RN - Comment: [phone] (NOV Hold - Provider: Automatic Transfer Provider [...] Provider: Hallie Pro RN - Comment: 156/)0841 (NOV Hold - Provider: Automatic Transfer Provider [...] RN) fluticasone propionate (FLONASE) nasal spray 1 [place] 1 [place], nasal - both, 2 TIMES DAILY, First dose on Sun11/15/21 at 2100, Until Discontinued, Routine 2110 (Not Given - Provider: Marcela Kingston RN - Reason: Patient/family refused) 0841 (NOV Hold - Provider: Automatic Transfer Provider Hn - Reason: Patient off unit)0900 (Automatically Held - Provider: Automatic Transfer Provider Hn)1047 (NOV Unhold - Provider: Automatic Transfer Provider Hn)2014 (Not Given - Provider: Grey Connelly RN - Reason: Patient/family refused) 0846 (Not [...] - Provider: Bishnu Mariano, ANA) heparin in 1/2 NS 25,000 unit/250 mL infusion (CANCELED) 18 Units/kg/hr ? 62.1 kg Adjusted weight (11.178 mL/hr, rounded to 11 mL/hr), intravenous, CONTINUOUS, Starting on Sun11/15/21 at 1930, Until Sun11/16/21 at 1149, STAT 2108 (Rate Change - Provider: Marcela Kingston, RN) 0828 (Paused - Provider: Nav Owens, ANA) sodium chloride 0.9 % (NS) infusion () at 75 mL/hr, intravenous, CONTINUOUS, Starting on Sun11/16/21 at 1100, Until Sun11/16/21 at 1510, Routine 1111 (New Bag - Provider: Hallie Pro, ANA) PRN Medication Order 11/15/2021 11/16/2021 11/17/2021 acetaminophen [...] Routine, Intraprocedure 0955 (Given - Provider: Shasta Taveras RN) clopidogreL (PLAVIX) tablet (CANCELED) PRN, Starting on [...] Routine, Intraprocedure 0903 (Given - Provider: Shasta Taveras, ANA)0905 (Given - Provider: Shasta Taveras RN)0937 (Given [...] 1748, Until Sun11/17/21 at 1859, Constipation, Routine 0841 (NOV Hold - Provider: Automatic Transfer Provider Hn - Reason: Patient off unit)1047 (NOV Unhold - Provider: Automatic Transfer Provider Hn) No Frequency Medication Order 11/15/2021 11/16/2021 11/17/2021 clopidogreL (PLAVIX) 300 mg tablet 1 dose, Starting on Sun11/16/21 at 0949, Until Sun11/17/21 at 1859 documented in this encounter Orders Medications Ordered That Anant ht Not Have Been Administered Count Last Ordered Date First Ordered Date acetaminophen (TYLENOL) tablet 650 mg 3 11/15/2021 clopidogreL (PLAVIX) 300 mg tablet 1 2021 clopidogreL (PLAVIX) tablet 2 11/16/2021 dextrose 50 % solution 12.5 g 2 11/16/2021 fentaNYL citrate (PF) 50 mcg/mL injection 1 11/16/2021 fentaNYL citrate (PF) injection 1 2 glucagon injection 1 mg 2 11/16/2021 heparin 1,000 unit/mL injection 3 2 insulin aspart U-100 (NOVOLO G FLEXPEN) injection 4 11/16/2021 lidocaine 20 mg/mL (2 %) injection 1 2021 lidocaine-EPINEPHrine 2 %-1: 100,000 injection 5-10 mL 1 11/16/2021 midazolam (PF) (VERSED) 1 mg/mL injection 1 11/16/2021 midazolam (PF) (VERSED) injection 1 022 nitroglycerin 100 mcg/mL syringe 2 11/16/19 verapamil (ISOPTIN) 2.5 mg/mL injection 1 0 11/16/2021 aspirin chewable tablet 81 mg 1 11/15/2021 atenoloL (TENORMIN) tablet 25 mg 1 11/15/19 atorvastatin (LIPITOR) tablet 80 mg 1 11/15 carboxymethylcellulose sodiu m (CELLUVISC) 1 % ophthalmic solution (PF) 1 Drop 1 11/15/2021 eye vitamin and mineral supp lement 60 mg-13.5 mg- 15 mg-2 mg-6 mg capsule 1 capsule 1 11/15/2021 fluticasone propionate (FLON ASE) nasal spray 1 [place] 2 11/15/2021 heparin 1,000 unit/mL inject ion 2,200 Units 1 11/15/2021 heparin 1,000 unit/mL inject ion 4,300 Units 1 11/15/2021 heparin in D5W 25,000 unit/2 50 mL(100 unit/mL) infusion 1 11/15/2021 heparin injection 2,150 Units 1 11/15/2021 heparin injection 4,350 Units 1 11/15/2021 irbesartan (AVAPRO) tablet 300 mg 1 022 levothyroxine (SYNTHROID) tablet 100 mcg 1 11/15/2021 lidocaine (PF) 10 mg/mL (1 % ) injection 2 mg 1 11/15/2021 melatonin tablet 3 mg 2 11/15/2021 nitroglycerin (NITROSTAT) SL tablet 0.4 mg 1 11/15/2021 pantoprazole (PROTONIX) tablet 40 mg 1 11/01 polyethylene glycol 3350 (UT RALAX) packet 17 g 2 11/15/2021 ramelteon (ROZEREM) tablet 8 mg 1 senna (SENOKOT) tablet 2 Tablet 2 2 [...] Date First Orde red Date 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 11/15/2021 documented in this encounter Care Teams Inside Sales Relationship Specialty Start Date End Date Nivia Tinsley MD [address] [place] [address] [phone] PCP - General Family Medicine - Primary Care 08/27/19 Zheng Tapia MD [address] [place] [address] [address] [place] [address] Internal Medicine - Primary Care 09/01/19 Shazia Burks MD [address] [place] [address] Neurology 09/01/19 Tony Baron OD [address] [place] [phone] Airplane Captain 09/01/19 Keira Paniagua MD [address] [place] [address] [address] [place] [phone] Cardiovascular Disease 09/06/20 Siva Perkins MD [address] [place] [address] Neurology 09/06/20 documented as of this encounter
--- OUTSIDE RECORDS SUMMARY | 2024-04-29 18:22 | XMS_ITS | Encounter Summary ---
Author Organization [facility] Address [address] [place] [address] Care Team Providers Care Senior Advisor Name Role Phone Nivia Tinsley MD Primary Care Provider Zheng Tapia MD Unavailable Shazia Burks MD Unavailable [phone] Tony Baron OD Unavailable [phone] Keira Paniagua MD Unavailable [phone] Siva Perkins MD Unavailable [phone] Reason for Visit * Reason Onset Date Comments Urinary Tract Infection 06/16/2021 Encounter Details Date Type Department Care Team (Late st Contact Info) Description 06/16/2021 Telephone [facility] - [facility] Integrative Family Medicine [facility] [address] [place], [place] [phone] Nivia Tinsley MD [address] [place], [place] [phone] Urinary Tract Infection Social History Tobacco Use [...] Telephone Encounter - Fay Dotson RN - 06/16/2021 1451 EDT Patient reports she has not had a UTI in over 20 years. She reports urgency and pain in her bladderwhen it is full. She reports that she has increased fluids and is drinking cranberry juice. Patientreports burning with urination. Unable to tell Nurse if she has cloudy urine or blood in her urine.Patient is afebrile. Reports that her symptoms are improving at this time. Patient did not want to address this this afternoon as she does not have transportation at this time. She has a friend coming to help her between 8-12 tomorrow. Patient advised to call the office in the morning if her symptoms persist so we can either get her into the office or come up with another plan. Patient will continue to encourage fluids and will notify the office in the morning if symptoms persist * Telephone Encounter - Puma Francois - 06/16/2021 0932 EDT Pt calling with concerns of a UTI. pts symptoms started yesterday. Pt has been drinking cranberry juice and feels like it is getting better. Pt is wondering if she should be seen documented in this encounter Plan of Treatment Upcoming Encounters Date Type Department Care Team (Late st Contact Info) Description 06/11/2024 12:45 EDT Office Visit [facility] Ophthalmology - [place] [address] [place], [place] [address] Santiago Anthony MD [address] [place] [address] 5 [place] [address] 07/15/2024 10:45 EDT Office Visit [facility] [address] [place], [place] [address] Gianfranco Flowers MD 130 [facility] [address] [place] [address] documented as of this encounter Visit Diagnoses Not on filedocumented in this encounter Care Teams Senior Advisor Relationship Specialty Start Date End Date Nivia Tinsley MD [address] [place] [address] PCP - General Family Medicine - Primary Care 08/27/19 Zheng Tapia MD [address] [place] [address] [address] [place] [address] Internal Medicine - Primary Care 09/01/19 Shazia Burks MD [address] [place] [address] Neurology 09/01/19 Tony Baron, FRANCK [address] [place] [address] Manager Meat 09/01/19 Keira Paniagua MD [address] [place] [address] [address] [place] [address] Cardiovascular Disease 09/06/20 Siva Perkins MD [address] [place] [phone] Neurology 09/06/20 documented as of this encounter
--- OUTSIDE RECORDS SUMMARY | 2024-04-29 18:23 | XMS_ITS | Encounter Summary ---
Author Organization [facility] Address [address] [place] [address] Care Team Providers Care Program/Music Director Name Role Phone Nivia Tinsley MD Primary Care Provider Zehng Tapia MD Unavailable Shazia Burks MD Unavailable [phone] Tony Baron OD Unavailable [phone] Keira Paniagua MD Unavailable [phone] Siva Perkins MD Unavailable [phone] Reason for Visit * Reason Onset Date Comments Medication Management 12/17/2020 Encounter Details Date Type Department Care Team (Late st Contact Info) Description 12/17/2020 Telephone [facility] - 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 I spoke with the patient's caregiver this AM and she states she will purchase famotidine OTC for the patient. documented in this encounter Plan of Treatment Upcoming Encounters Date Type Department Care Team (Late st Contact Info) Description 06/11/2024 12:45 EDT Office Visit [facility] Ophthalmology - [place] [address] [place], [place] [phone] Santaigo Anthony MD 111 [facility] 5 [place] [address] 07/15/2024 10:45 EDT Office Visit [facility] Cardiology Clinic [address] [place], [place] [phone] Gianfranco Flowers MD 130 [facility] [address] [place] [address] documented as of this encounter Visit Diagnoses Not on filedocumented in this encounter Care Teams Program/Music Director Relationship Specialty Start Date End Date Nivia Tinsley MD [address] [place] [address] PCP - General Family Medicine - Primary Care 08/27/19 Zheng Tapia MD [address] [place] [address] [address] [place] [address] Internal Medicine - Primary Care 09/01/19 Shazia Burks MD [address] [place] [address] Neurology 09/01/19 Tony Baron OD [address] [place] [address] Front End Mechanic 09/01/19 Keira Paniagua MD [address] [place] [address] 21 [place] [address] Cardiovascular Disease 09/06/20 Siva Perkins MD 1200 [facility] [place] [address] Neurology 09/06/20 documented as of this encounter
--- OUTSIDE RECORDS SUMMARY | 2024-04-29 18:23 | XMS_ITS | Encounter Summary ---
Author Organization [facility] Address [address] [place] [address] Care Team Providers Care Funeral Planning Counselor Name Role Phone Nivia Tinsley MD Primary Care Provider Zheng Tapia MD Unavailable Shazia Burks MD Unavailable [phone] Tony Baron OD Unavailable [phone] Keira Paniagua MD Unavailable [phone] Siva Perkins MD Unavailable [phone] Reason for Visit * Reason Onset Date Comments Other 02/21/2021 abdominal pain R LQ Encounter Details Date Type Department Care Team (Late st Contact Info) Description 02/21/2021 Telephone [facility] - [facility] Integrative Family Medicine [facility] [address] [place] [address] Nivia Tinsley MD [address] [place] [address] Other (abdominal pain RLQ) Social History Tobacco Use Types Packs/Day Years [...] encounter Miscellaneous Notes * Telephone Encounter - Shanon Gladys, RN - 02/21/2021 1736 EDT o- Call to patient and she has had abd pain and she states that she took Tylenol with some relief and she states that the pain is still there; advised if pain getting worse and not relieved that she NTBS; advised she could be seen at until 7pm today. Patient declines and states she would prefer to wait it out; states that it isn't that bad. Denies constipation last BM yesterday; denies temp, denies bloating; reports able to tolerate PO. Enc if pain worsens, unable to tolerate PO or develops temp to go to ED. A- Patient report RLQ pain P- Tylenol and rest if not improved or worsens as above NTBS * Telephone Encounter - Aracelis Garcia - 02/21/2021 1511 EDT Patient calling complaining of right side ache that started in back and went down around and into leg. Started this morning and has gotten worse. Feeling kind of miserable. Took double strength Tylenol around 2:30 from a friend. Asking if ok to take again around 6:30 with food before she goes to bed. Please advise. documented in this encounter Plan of Treatment Upcoming Encounters Date Type Department Care Team (Late st Contact Info) Description 06/11/2024 12:45 EDT Office Visit [facility] Ophthalmology - [place] [address] [place] [address] Santiago Anthony MD [address] [place] [address] 5 [place] [address] 07/15/2024 10:45 EDT Office Visit [facility] Cardiology Clinic 130 [place], [place] [address] Gianfranco Flowers MD 130 [facility] [address] [place] [address] documented as of this encounter Visit Diagnoses Not on filedocumented in this encounter Care Teams Funeral Planning Counselor Relationship Specialty Start Date End Date Nivia Tinsley MD [address] [place] [address] PCP - General Family Medicine - Primary Care 08/27/19 Zheng Tapia MD [address] [place] [address] [address] [place] [address] Internal Medicine - Primary Care 09/01/19 Shazia Burks MD [address] [place] [address]67 Neurology 09/01/19 Tony Baron OD [address] [place] [address] International Exchange Coordinator 09/01/19 Keira Paniagua MD [address] [place] [address] [address] [place] [address] Cardiovascular Disease 09/06/20 Siva Perkins MD [address] [place] [address] Neurology 09/06/20 documented as of this encounter
--- OUTSIDE RECORDS SUMMARY | 2024-04-29 18:23 | XMS_ITS | Encounter Summary ---
Author Organization [facility] Address [address] [place] [address] Care Team Providers Care Display Artist Name Role Phone Nivia Tinsley MD Primary Care Provider [phone] Zheng Tapia MD Unavailable Shazia Burks MD Unavailable [phone] Tony Baron OD Unavailable [phone] Keira Paniagua MD Unavailable [phone] Siva Perkins MD Unavailable [phone] Encounter Details Date Type Department Care Team (Latest Contact Info) Description 12/20/2020 Travel Social History Tobacco Use Types Packs/Day [...] have Coronavirus / COVID-19? No / Unsure 12/20/2020 8:54 EDT documented as of this encounter Functional [...] Info) Description 06/11/2024 12:45 EDT Office Visit [facility] Ophthalmology [facility] [address] [place] [address] Santiago Anthony MD [address] [place] [address], [facility] 5 [place] [address] 07/15/2024 10:45 EDT Office Visit [facility] Cardiology Clinic 130 [facility], [place] [phone] Gianfranco Flowers MD [address] [place] [address] [address] [place] [phone] documented as of this encounter Visit Diagnoses Not on filedocumented in this encounter Care Teams Display Artist Relationship Specialty Start Date End Date Nivia Tinsley MD [address] [place] [address] PCP - General Family Medicine - Primary Care 08/27/19 Zheng Tapia MD [address] [place] [address] 7 [place] [address] Internal Medicine - Primary Care 09/01/19 Shazia Burks MD [address] [place] [address] Neurology 09/01/19 Tony Baron OD [address] [place] [address] Mottler Machine Feeder 09/01/19 Keira Paniagua MD [address] [place] [address] [address] [place] [address] Cardiovascular Disease 09/06/20 Siva Perkins MD 1200 [facility] [place] [phone] Neurology 09/06/20 documented as of this encounter
--- OUTSIDE RECORDS SUMMARY | 2024-04-29 18:23 | XMS_ITS | Encounter Summary ---
Author Organization [facility] Address [address] [place] [address] Care Team Providers Care Member Of Technical Staff Name Role Phone Nivia Tinsley MD Primary Care Provider Zheng Tapia MD Unavailable Shzaia Burks MD Unavailable [phone] Tony Baron OD Unavailable [phone] Keira Painagua MD Unavailable [phone] Siva Perkins MD Unavailable [phone] Reason for Visit * Reason Onset Date Comments Rash 03/09/2021 Encounter Details Date Type Department Care Team (Late st Contact Info) Description 03/09/2021 Telephone [facility] Integrative Family Medicine [facility] [address] [place], [place] [phone] Nivia Tinsley MD [address] [place] [address] Rash Social History Tobacco Use Types Packs/Day Years [...] Telephone Encounter - Phil Vickers RN - 03/09/2021 6504 EDT Patient reports that the rash on her legs has been present for two weeks and reports it being veryitchy. Patient reports that the rash started out small and has gotten larger over the last two weeks. Reports the rash and red and slightly warm to touch but denies any weeping, drainage, pain, and is afebrile at this time. Patient reports it hurts so good when I itch it. Patients neighbor gave her Cortizone cream that appears to be outdated per patient report. She reports this relieves the itching but has not helped clear up the rash. Patient advised to go to express care for evaluation as there is no availability in office. Directed to call us back or visit the ED if symptoms become severe. Patient will be going to express care in the morning as she will have a ride there at this time. * Telephone Encounter - Aracelis Garcia - 03/09/2021 9830 EDT Patient calling complaining of very itchy rash on shins, has been there for about 2 weeks. Has beenusing some sort of a cream that her neighbor gave her, seems to help, but unsure the name of it. Has also tried a Vaseline for dry skin. Please advise, no appts available this week. documented in this encounter Plan of Treatment Upcoming Encounters Date Type Department Care Team (Late st Contact Info) Description 06/11/2024 12:45 EDT Office Visit [facility] Ophthalmology - [place] [address] [place], [place] [phone] Santiago Anthony MD 111 [facility] 5 [place] [address] 07/15/2024 10:45 EDT Office Visit [facility] Cardiology Clinic [address] [place], [place] [phone] Gianfranco Flowers MD 130 [facility] [address] [place] [address] documented as of this encounter Visit Diagnoses Not on filedocumented in this encounter Care Teams Member Of Technical Staff Relationship Specialty Start Date End Date Nivia Tinsley MD [address] [place] [phone] PCP - General Family Medicine - Primary Care 08/27/19 Zheng Tapia MD [address] [place] [address] 7 [place] [address] Internal Medicine - Primary Care 09/01/19 Shazia Burks MD [address] [place] [address] Neurology 09/01/19 Tony Baron, [address] [place] [address] Assistant Activities Director 09/01/19 Keira Paniagua MD [address] [place] [address] 21 [place] [address] Cardiovascular Disease 09/06/20 Siva Perkins MD [address] [place] [phone] Neurology 09/06/20 documented as of this encounter
--- OUTSIDE RECORDS SUMMARY | 2024-04-29 18:23 | XMS_ITS | Encounter Summary ---
Author Organization [facility] Address [address] [place] [address] Care Team Providers Care Application Design Engineer Name Role Phone Nivia Tinsley MD Primary Care Provider [phone] Zheng Tapia MD Unavailable Shazia Burks MD Unavailable [phone] Tony Baron OD Unavailable [phone] Keira Paniagua MD Unavailable [phone] iSva Perkins MD Unavailable [phone] Reason for Visit * Reason Onset Date Comments Medications Refill 03/01/2021 Encounter Details Date Type Department Care Team (Late st Contact Info) Description 03/01/[address] [facility] [address] [place], [place] [phone] Nivia Tinsley MD [address] [place], [place] [phone] Medications Refill Social History Tobacco Use Types [...] End Da te losartan (COZAAR) 100 mg tabletIndications:Essential hypertension 1 tab(s) orally once a day 90 Tab 3 03/01/2021 10/21/2021 levothyroxine (SYNTHROID) 100 mcg tabletIndications:Other specified hypothyroidism Take 1 Tab by mouth daily. 90 Tab 3 03/01/2021 10/21/2021 cholecalciferol, Vitamin D3, 25 mcg (1,000 unit) tabletIndications:Vitamin D deficiency Take 1 Tab by mouth daily. 90 Tab 3 03/01/2021 10/21/2021 atorvastatin (LIPITOR) 20 mg tabletIndications:Mixed hyperlipidemia 1 tab(s) orally once a day 90 Tab 3 03/01/2021 10/21/2021 atenoloL (TENORMIN) 25 mg tabletIndications:Essential hypertension Take 1 Tab by mouth daily. 90 Tab 3 03/01/2021 10/21/2021 aspirin chewable 81 mg tablet Take 1 Tab by mouth daily. 90 Tab 3 03/01/2021 10/21/2021 documented in this encounter Miscellaneous Notes * Telephone Encounter - Sherly Kimbrough, RN - 03/01/2021 1605 EDT [facility] - 12/20/20 NOV - none labs - 08/02/20 Rx(s) escribed to pharmacy. SHERLY KIMBROUGH, RN * Telephone Encounter - Aracelis Garcia - 03/01/2021 0936 EDT Pt needs refills on 6 meds: Atenolol 25 mg Levothyroxine Chewable aspirin Vitamin D3 Atorvastatin 20mg Losartin 100 mg Please send to [facility] in [place]. documented in this encounter Plan of Treatment Upcoming Encounters Date Type Department Care Team (Late st Contact Info) Description 06/11/2024 12:45 EDT Office Visit [facility] Ophthalmology [facility] [address] [place] [address] Santiago Anthony MD [address] [place] [address], [facility] 5 [place] [address] 07/15/2024 10:[address] [facility] [address] [place] [address] Gianfranco Flowers MD 130 [facility] [address] [place] [phone] documented as of this encounter Visit Diagnoses Diagnosis Other specified hypothyroidism- Primary Mixed hyperlipidemia Essential hypertension Unspecified essential hypertension Vitamin D deficiency Unspecified vitamin D deficiency documented in this encounter Discontinued Medications Medication Sig Discontinue Reason Start Date End Da te cholecalciferol, Vitamin D3, 1,000 unit tablet Take 1 Tab by mouth daily. Reorder 07/12/2020 03/01/2021 aspirin chewable 81 mg tablet Take 1 Tab by mouth daily. Reorder 07/12/2020 03/01/2021 atenoloL (TENORMIN) 25 mg tablet Take 1 Tab by mouth daily. Reorder 07/12/2020 03/01/2021 atorvastatin (LIPITOR) 20 mg tabletIndications:Mixed hyperlipidemia 1 tab(s) orally once a day Reorder 07/12/2020 03/01/2021 losartan (COZAAR) 100 mg tabletIndications:Essentia l hypertension 1 tab(s) orally once a day Reorder 07/12/2020 03/01/2021 levothyroxine (SYNTHROID) 100 mcg tablet Take 1 Tab by mouth daily. Reorder 07/12/2020 03/01/2021 documented as of this encounter Care Teams Application Design Engineer Relationship Specialty Start Date End Date Nivia Tinsley MD [address] [place] [address] PCP - General Family Medicine - Primary Care 08/27/19 Zheng Tapia MD [address] [place] [address] [address] [place] [phone] Internal Medicine - Primary Care 09/01/19 Shazia Burks MD [address] [place] [address] Neurology 09/01/19 Tony Baron OD [address] [place] [address] Trim Operator 09/01/19 Keira Paniagua MD [address] [place] [address] [address] Cardiovascular Disease 09/06/20 Siva Perkins MD 1200 [facility] [place] [address] Neurology 09/06/20 documented as of this encounter
--- OUTSIDE RECORDS SUMMARY | 2024-04-29 18:23 | XMS_ITS | Encounter Summary ---
Author Organization [facility] Address [address] [place] [address] Care Team Providers Care Work Checker Name Role Phone Nivia Tinsley MD Primary Care Provider [phone] Zheng Tapia MD Unavailable Shazia Burks MD Unavailable [phone] Tony Baron OD Unavailable [phone] Keira Paniagua MD Unavailable [phone] Siva Perkins MD Unavailable [phone] Reason for Visit * Reason Onset Date Comments Prior Auth, Medication 12/13/2020 Encounter Details Date Type Department Care Team (Late st Contact Info) Description 12/13/2020 Telephone [facility] [place] [place] Integrative Family Medicine [address] [phone] Phil Vickers, ANA Prior Auth, Medication Social History Tobacco Use Types Packs/Day Years [...] encounter Miscellaneous Notes * Telephone Encounter - Stephanie Sheridan RN - 12/14/2020 0834 EDT PA was denied. Insurance will not cover OTC medications * Telephone Encounter - Phil Vickers RN - 12/13/2020 1210 EDT PA submitted for ammonium lactate cream via covermymeds. documented in this encounter Plan of Treatment Upcoming Encounters Date Type Department Care Team (Late st Contact Info) Description 06/11/2024 12:45 EDT Office Visit [facility] Ophthalmology - [place] [address] [place], [place] [phone] Santiago Anthony MD 111 [facility], [facility] 5 [place] [address] 07/15/2024 10:45 EDT Office Visit [facility] [place] [place] Cardiology Clinic [address] [place], [place] [phone] Gianfranco Flowers MD 130 [facility] [address] [place] [phone] documented as of this encounter Visit Diagnoses Not on filedocumented in this encounter Care Teams Work Checker Relationship Specialty Start Date End Date Nivia Tinsley MD [address] [place] [phone] PCP - General Family Medicine - Primary Care 08/27/19 Zheng Tapia MD [address] [place] [address] [address] [place] [address] Internal Medicine - Primary Care 09/01/19 Shazia Burks MD [address] [place], [place] 56[address] Neurology 09/01/19 Tony Baron OD [address] [place] [phone] Museum Technician 09/01/19 Keira Paniagua MD [address] [place] [phone] Cardiovascular Disease 09/06/20 Siva Perkins MD 1200 [facility] [place] [address] Neurology 09/06/20 documented as of this encounter
--- OUTSIDE RECORDS SUMMARY | 2024-04-29 18:23 | XMS_ITS | Encounter Summary ---
Author Organization [facility] Address [address] [place] [address] Care Team Providers Care Lunchroom Aide Name Role Phone Nivia Tinsley MD Primary Care Provider Zheng Tapia MD Unavailable Shazia Burks MD Unavailable [phone] Tony Baron OD Unavailable [phone] Keira Paniagua MD Unavailable [phone] Siva Perkins MD Unavailable [phone] Reason for Visit * Reason Comments Referral Request Encounter Details Date Type Department Care Team (Late st Contact Info) Description 12/08/2020 9:00 EST Telemedicine [facility] Integrative Family Medicine [address] [address] Nivia Tinsley MD [address] [place] [address] Shuffling gait (Primary Dx); Decreased visual acuity; Weakness; Physical deconditioning; Itching; Gastro-esophageal reflux disease without esophagitis Social History Tobacco Use Types Packs/Day Years [...] Dispensed Refills Start Date End Da te cimetidine (TAGAMET) 300 mg tabletIndications:Gastro- esophageal reflux disease without esophagitis Take 1 Tab by mouth 2 times daily. 60 Tab 12/08/2020 12/13/2020 Ammonium Lactate 5 % lotionIndications:Itching Apply to affect area daily 1 Bottle 12/08/2020 12/20/2020 documented in this encounter Progress Notes * Nivia Tinsley MD - 12/08/2020 0900 EST Images from the original note were not included. [facility] Video Visit Today's visit was provided through telemedicine video conferencing: The location of the patient: Home The location of the provider: Clinic Exam Room Verbal consent: The concept of ???Telemedicine?? has been described to the patient.Patient has been informed of the anticipated benefits [...] medical or mental health care. Verbal consent obtained by myself or auxiliary staff: yes. 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 She moved to the [place] and she is getting home PT, and she needs to be certified for it. Difficulty walking and fatigue on the left side, foot drom, needs supervision when she is walking down the aburto. 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 She can walk 40 feet with a 4 wheeled walker She also has a dry cough and has a h/o GERD. Finally she would like a rx for Ammonium Lactate because it helps her itch I have reviewed patient's tobacco history: reports that she has never smoked. She has never used smokeless tobacco. I have reviewed current problem list and current medications. ROS: Review of Systems Eyes: Positive for blurred vision. Respiratory: Positive for cough. Neurological: Positive for focal weakness and weakness. Objective: Examination: Home Vitals: There were no vitals taken for this visit. Pertinent exam findings: appears well, neck supple, no JVD, non-labored breathing, no wheeze, no rash on visible skin and mood and affect appropriate Data reviewed with patient: Reviewed and/or ordered active problem list, medication list, allergies, health maintenance, notes from last encounter, lab results tests Results for orders placed or performed in visit on 09/14/20 COVID-19 TESTING Result Value Ref Range Performing Lab [facility] COVID-19 rt-PCR Result Not Detected Negative Assessment & Plan: Concetta was seen today for referral request. Diagnoses and all orders for this visit: Shuffling gait - Cancel: AMB CONS/FOLLOW UP HOME HEALTH SERVICES; Future - AMB CONS/FOLLOW UP HOME HEALTH SERVICES; Future Decreased visual acuity - Cancel: AMB CONS/FOLLOW UP HOME HEALTH SERVICES; Future - AMB CONS/FOLLOW UP HOME HEALTH SERVICES; Future Weakness - Cancel: AMB CONS/FOLLOW UP HOME HEALTH SERVICES; Future - AMB CONS/FOLLOW UP HOME HEALTH SERVICES; Future Physical deconditioning - Cancel: AMB CONS/FOLLOW UP HOME HEALTH SERVICES; Future - AMB CONS/FOLLOW UP HOME HEALTH SERVICES; Future Itching - Ammonium Lactate 5 % lotion; Apply to affect area daily Gastro-esophageal reflux disease without esophagitis - cimetidine (TAGAMET) 300 mg tablet; Take 1 Tab by mouth 2 times daily. Return if symptoms worsen or fail to improve. I spent a total of 30 minutes in discussion with the patient as described in the progress note. The following individuals and their role did participate in today's encounter visit: Provider: Nivia Tinsley MD Patient Caregiver, home health PT Nivia Tinsley MD documented in this encounter Plan of Treatment Upcoming Encounters Date Type Department Care Team (Late st Contact Info) Description 06/11/2024 12:45 EDT Office Visit [facility] Ophthalmology [address] [id number] Santiago Anthony MD [address] [place] [address] 5 [place] [address] 07/15/2024 10:45 EDT Office Visit [facility] [address] [place] [address] Gianfranco Flowers MD 130 [facility] [address] [place] [address] documented as of this encounter Visit Diagnoses Diagnosis Shuffling gait- Primary Abnormality of gait Decreased visual acuity Unspecified visual loss Weakness Other malaise and fatigue Physical deconditioning Debility, unspecified Itching Unspecified pruritic disorder Gastro-esophageal reflux disease without esophagitis Esophageal reflux documented in this encounter Care Teams Lunchroom Aide Relationship Specialty Start Date End Date Nivia Tinsley MD [address] [place] [address] PCP - General Family Medicine - Primary Care 08/27/19 Zheng Tapia MD [address] [place] [address] Internal Medicine - Primary Care 09/01/19 Shazia Burks MD [address] [place] [address] Neurology 09/01/19 Tony Baron OD [address] [place] [phone] Client Relations Specialist 09/01/19 Keira Paniagua MD [address] [place] [address] [address] [place] [address] Cardiovascular Disease 09/06/20 Siva Perkins MD [address] [place] [address] Neurology 09/06/20 documented as of this encounter
--- OUTSIDE RECORDS SUMMARY | 2024-04-29 18:23 | XMS_ITS | Encounter Summary ---
Author Organization [facility] Address [address] [place] [address] Care Team Providers Care Soap Worker Name Role Phone Nivia Tinsley MD Primary Care Provider Zheng Tapia MD Unavailable Shazia Burks MD Unavailable [phone] Tony Baron OD Unavailable [phone] Keira Paniagua MD Unavailable [phone] Siva Perkins MD Unavailable [phone] Reason for Visit * Reason Onset Date Comments Medications Refill 04/01/2021 Medications Refill 04/07/2021 Encounter Details Date Type Department Care Team (Late st Contact Info) Description 04/01/2021 Telephone [facility] Integrative Family Medicine [address] [phone] Sherly Kimbrough, ANA Medications Refill; Medications Refill Social History Tobacco Use Types [...] Date End Da te vit A,C & P-euijzt-qvskcypj 1,000 unit-200 mg-60 unit-2 mg tablet Take 1 tab by mouth daily 90 Tablet 3 04/01/2021 10/21/2021 documented in this encounter Miscellaneous Notes * Telephone Encounter - Sherly Kimbrough RN - 04/12/2021 1200 EDT Confirmed w/ pharm that they did receive rx from 04/01/21. No action needed. * Telephone Encounter - Emily Rousseau - 04/07/2021 0805 EDT Daniela Dubois received another rx request from faye davila for this rx today. Can you verify that it was sent in previously? Thank you. * Telephone Encounter - Sherly Kimbrough RN - 04/01/2021 1035 EDT Refill I-harini tablet ZURI - 12/20/20 NOV - none Rx(s) escribed to pharmacy. SHERLY KIMBROUGH RN documented in this encounter Plan of Treatment Upcoming Encounters Date Type Department Care Team (Late st Contact Info) Description 06/11/2024 12:45 EDT Office Visit [facility] Ophthalmology - [address] [address] Santiago Anthony MD [address] [place] [address], [address] [place] [address] 07/15/2024 10:45 EDT Office Visit [facility] [address] [place] [address] Gianfranco Flowers MD 130 [facility] [address] [place] [address] documented as of this encounter Visit Diagnoses Not on filedocumented in this encounter Discontinued Medications Medication Sig Discontinue Reason Start Date End Da te Vit A,C & A-Jsmjma-Ostaavmw 1,000 unit-200 mg-60 unit-2 mg tablet Take 1 tab by mouth daily Reorder 07/12/2020 04/01/2021 documented as of this encounter Care Teams Soap Worker Relationship Specialty Start Date End Date Nivia Tinsley MD [address] [place] [phone] PCP - General Family Medicine - Primary Care 08/27/19 Zheng Tapia MD [address] [place] [address] [address] [place] [address] Internal Medicine - Primary Care 09/01/19 Shazia Burks MD [address] [place] [address] Neurology 09/01/19 Tony Baron, OD [address] [place] [phone] Sprayer Insecticide 09/01/19 Keira Paniagua MD [address] [place] [address] [address] [place] [phone] Cardiovascular Disease 09/06/20 Siva Perkins MD [address] [place] [phone] Neurology 09/06/20 documented as of this encounter
--- OUTSIDE RECORDS SUMMARY | 2024-04-29 18:23 | XMS_ITS | Encounter Summary ---
Author Organization [facility] Address [address] [place] [address] Care Team Providers Care Film Vault Supervisor Name Role Phone Nivia Tinsley MD Primary Care Provider [phone] Zheng Tapia MD Unavailable Shazia Burks MD Unavailable [phone] Tony Baron OD Unavailable [phone] Keira Paniagua MD Unavailable [phone] Siva Perkins MD Unavailable [phone] Reason for Visit * Reason Onset Date Comments Social Work 12/28/2020 care coordinatio n Encounter Details Date Type Department Care Team (Late st Contact Info) Description 12/28/2020 Telephone [facility] Integrative Family Medicine [address] [phone] Terri Byrd Social Work (care coordination) Social History Tobacco Use Types Packs/Day Years [...] Telephone Encounter - Nivia Tinsley MD - 12/28/2020 1153 EDT Thanks * Telephone Encounter - Terri Byrd - 12/28/2020 1053 EDT CHT referral to assist patient who needs 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 Concetta gets services through [facility]. She has help every day for 4 hours. She states she doesn't need this much help, but this is the minimum for this agency. She plans to contact CRIS Glass at [facility] to discuss other home care options that may be more affordable. She currently gets help with Walking with walker in hallway daily for endurance. She would like to be able to spend more time out of wheelchair. Shower 2x/week Cleaning Some cooking; warms up and serves MOW for main meal. Has money in savings from selling house. She uses this money to assist with living expenses. She isnot sure how much she has, but this is likely what prevents her from being eligible for other services and benefits. Her only income is $800 SSA. Before [facility], she was connected with [facility]. They drive her to retina specialist in [facility]. Next appointment in mid-December. Macular degeneration. Has audio books. Trying to read every day with large print. Blind services will help with technology. Was 30 years. . didn't work much during marriage because he inherited family money. Her SSA is higher than what she would get under his record. Not sure how much she has in savings. Don't get any benefits. She wonders if she is eligible for SSDI due to macular degeneration? I suggested she talk with [facility] about this, but not sure she'll qualify due to lack of work history. Not eligible for Medicaid because resources are over limit. I gave Concetta my number so she can call me to update me after she talks to Zackery at [facility]. documented in this encounter Plan of Treatment Upcoming Encounters Date Type Department Care Team (Late st Contact Info) Description 06/11/2024 12:45 EDT Office Visit [facility] Ophthalmology - [place] [address] [place], [place] [phone] Santiago Anthony MD 111 [facility] 5 [place] [address] 07/15/2024 10:45 EDT Office Visit [facility] [address] [place] [phone] Gianfranco Flowers MD [address] [place] [address] [address] [place] [phone] documented as of this encounter Visit Diagnoses Not on filedocumented in this encounter Care Teams Film Vault Supervisor Relationship Specialty Start Date End Date Nivia Tinsley MD [address] [place] [address] PCP - General Family Medicine - Primary Care 08/27/19 Zheng Tapia MD [address] [place] [address] 7 [place] [address] Internal Medicine - Primary Care 09/01/19 Shazia Burks MD [address] [place] [address] Neurology 09/01/19 Tony Baron, FRANCK [address] [place] [phone] Van Loader 09/01/19 Keira Paniagua MD [address] [place] [address] [address] [place] [phone] Cardiovascular Disease 09/06/20 Siva Perkins MD [address] [facility] [place] [address] Neurology 09/06/20 documented as of this encounter
--- OUTSIDE RECORDS SUMMARY | 2024-04-29 18:23 | XMS_ITS | Encounter Summary ---
Author Organization [facility] Address [address] [place] [address] Care Team Providers Care After School Caregiver Name Role Phone Nivia Tinsley MD Primary Care Provider Zheng Tapia MD Unavailable Shazia Burks MD Unavailable [phone] Tony Baron OD Unavailable [phone] Keira Paniagua MD Unavailable [phone] Siva Perkins MD Unavailable [phone] Reason for Visit * Reason Onset Date Comments Medication Management 04/25/2021 Encounter Details Date Type Department Care Team (Late st Contact Info) Description 04/25/2021 Telephone [facility] Integrative Family Medicine [facility] [address] [place], [place] [phone] Nivia Tinsley MD [address] [place] [address] Medication Management Social History Tobacco [...] encounter Miscellaneous Notes * Telephone Encounter - Moni Su - 05/04/2021 0847 EDT Pt called back about her ongoing issues with throwing up in the morning. She states it's a lot of mucous. Doesn't feel like anything is stuck in her throat, but feels like stuff is coming up while Im trying to swallow food She had a bad episode this morning. I offered a video visit, but those areat the end of the month. Pt wants to be seen in person. Any suggestions? Pt states she is feeling very anxious about this. * Telephone Encounter - Nivia Tinsley MD - 04/26/2021 1356 EDT Yes, needs more history... * Telephone Encounter - Felicia Boyle LPN - 04/26/2021 1351 EDT Sounds like she needs ov? * Telephone Encounter - Cassy Cevallos - 04/26/2021 0908 EDT Pt called back. * Telephone Encounter - Cassy Cevallos - 04/25/2021 1016 EDT Pt called and said she has been having some trouble with her medicine in the morning. She has a small bites of cereal and then takes her medicine. Almost immediately, she gets phlegm in her throat. If she needs to come in for an appt, she would prefer to see someone who knows geriatric medicine. documented in this encounter Plan of Treatment Upcoming Encounters Date Type Department Care Team (Late st Contact Info) Description 06/11/2024 12:45 EDT Office Visit [facility] Ophthalmology [address] [address] Santiago Anthony MD 111 [facility], [address] [place] [address] 07/15/2024 10:45 EDT Office Visit [facility]iology Clinic [address] [place] [phone] Gianfranco Flowers MD [address] [place] [address] [address] [place] [address] documented as of this encounter Visit Diagnoses Not on filedocumented in this encounter Care Teams After School Caregiver Relationship Specialty Start Date End Date Nivia Tinsley MD [address] [place] [address] PCP - General Family Medicine - Primary Care 08/27/19 Zheng Tapia MD [address] [place] [address] [place] [phone] Internal Medicine - Primary Care 09/01/19 Shazia Burks MD [address] [place] [address] Neurology 09/01/19 Tony Baron, FRANCK [address] [place] [phone] Pattern Marker 09/01/19 Keira Paniagua MD 130 [facility] [address] [place] [address] Cardiovascular Disease 09/06/20 Siva Perkins MD [address] [facility] [place] [address] Neurology 09/06/20 documented as of this encounter
--- OUTSIDE RECORDS SUMMARY | 2024-04-29 18:23 | XMS_ITS | Encounter Summary ---
Author Organization [facility] Address [address] [place] [address] Care Team Providers Care Plant Buyer Name Role Phone Nivia Tinsley MD Primary Care Provider Zheng Tapia MD Unavailable Shazia Burks MD Unavailable [phone] Tony Baron OD Unavailable [phone] Keira Paniagua MD Unavailable [phone] Siva Perkins MD Unavailable Reason for Visit * Reason Comments Medicare Annual Wellness Visit Encounter Details Date Type Department Care Team (Late st Contact Info) Description 12/20/2020 9:20 EDT Office Visit [facility] Integrative Family Medicine [facility] [address] [place], [place] [phone] Nivia Tinsley MD [address] [place], [place] [phone] Rash (Primary Dx); Prediabetes; Decreased visual acuity; Encounter for subsequent annual wellness visit (AWV) in Medicare patient Social History Tobacco Use [...] 8:54 EDT documented as of this encounter Last Filed Vital Signs Vital Sign Reading Time Taken Comments Blood Pressure - - Pulse - - Temperature - - Respiratory Rate 16 12/20/2020921 EDT Oxygen Saturation - - Inhaled Oxygen Concentration - - Weight 68.9 kg (152 lb) 12/20/2020921 EDT Height 163.2 cm (5' 4.25) 12/20/2020921 EDT Body Mass Index 25.89 12/20/2020 0922 EDT documented in this encounter Functional Status [...] No 09/09/2019 documented as of this encounter Progress Notes * Nivia Tinsley MD - 12/20/2020 0920 EDT Images from the original note were not included. [facility] Primary Care Medicare Annual Wellness Visit Patient is here for their annual wellness visit, for Medicare beneficiaries as part of Medicare Part B, and intended to promote health, detect disease, and address overall health needs related to theMedicare patient. The patient is a 80 y.o. female retiree. The patient is single and lives with alone. Patient questionnaire completed and reviewed: Yes. Advance Directives: has NO advanced directive - not interested in additional information. Updated list of treating providers: Dermatology and Ophthalmology Written Health Plan in patient instructions: Yes. Additional History: She is concerned about her skin. She has high cholesterol. The patient's allergies, past medical history, family history and social history were reviewed and updated in the EMR on 12/20/2020. Chart reviewed for current providers and suppliers regularly involved in the patient's care. Patient's primary caregiver: self. Patient Active Problem List Diagnosis ??? Cerebral atherosclerosis ??? Gastro-esophageal reflux disease without esophagitis ??? Hyperlipidemia ??? Hypertension ??? Hypothyroidism, unspecified ??? Prediabetes ??? Shuffling gait ??? Vitamin D deficiency ??? Basilar artery stenosis/occlusion with infarction ([facility]) ??? Decreased visual acuity Current Outpatient Medications: ??? aspirin chewable 81 mg tablet, Take 1 Tab by mouth daily., Disp: 90 Tab, Rfl: 3 ??? atenoloL (TENORMIN) 25 mg tablet, Take 1 Tab by mouth daily., Disp: 90 Tab, Rfl: 3 ??? atorvastatin (LIPITOR) 20 mg tablet, 1 tab(s) orally once a day, Disp: 90 Tab, Rfl: 3 ??? carboxymethylcellulose sodium (ARTIFICIAL TEARS, [facility],) 1 % drops, Apply 2 Drops to eye as needed (dry eye)., Disp: 10 mL, Rfl: 11 ??? cholecalciferol, Vitamin D3, 1,000 unit tablet, Take 1 Tab by mouth daily., Disp: 90 Tab, Rfl: 3 ??? levothyroxine (SYNTHROID) 100 mcg tablet, Take 1 Tab by mouth daily., Disp: 90 Tab, Rfl: 3 ??? losartan (COZAAR) 100 mg tablet, 1 tab(s) orally once a day, Disp: 90 Tab, Rfl: 3 ??? medical supply, miscellaneous (W[employer] ACCESSORY MISC), with seat, basket under the seat and breaks as directed dx: Abnormal gait and legally blind daily, Disp: , Rfl: ??? nitroGLYCERIN (NITROSTAT) 0.4 mg SL tablet, Take 1 tab under the tongue every 5 minutes for persistent Chest pain, up to 3 doses., Disp: 24 Tab, Rfl: 0 ??? nizatidine (AXID) 150 mg capsule, Take 1 Cap by mouth at bedtime., Disp: 30 Cap, Rfl: 1 ? ? Vit A,C & H-Ollyvq-Gftkphmd 1,000 unit-200 mg-60 unit-2 mg tablet, Take 1 tab by mouth daily, Disp: 90 Tab, Rfl: 3 Taking adequate Multivitamin, Calcium & Vitamin D supplements? Yes. Immunization History Administered Date(s) Administered ??? Influenza [...] general. Appetite: stable. Level of activity: active: 3 - 4 times per week. Functional Evaluation completed Vision: abnormal vision. She sees Ophthalmology in December. She has been getting shots in her eyes. ADLs: impaired: food preparation and cooking and dish washing. Hands at home are helping. Cognitive: grossly intact memory based on in-office exam Fall Risk: FALLS RISK REVIEW 12/20/2020 Get Up and Go Test Multiple attempts, but successful Patient or Family Have Concerns No Patient Uses an Assistive Device Yes Assistive Device Used wheelchair Previous Fall Within the Past 12 Months No Anti-Hypertensive on Active Medication List Yes Considered at High Risk for Falls Yes Follow Up: Patient/ Family Verbalized Understanding Yes Fall Risk Screening Completed Yes Some recent data might be hidden Home Safety: smoke detectors, CO detectors, hand rails, no trip hazards and adequate lighting ROS: Review of Systems Eyes: Positive for blurred vision. Neurological: Positive for weakness. I reviewed the patient's functional ability and [...] Assessment and addressed these issues. Examination: Vitals: Resp 16 Ht 163.2 cm (64.25) Wt 68.9 kg (152 lb) BMI 25.89 kg/m?? Body mass index is 25.89 kg/m??. Physical Exam I assessed cognitive function by direct observation and find no problem unless otherwise stated. I assessed for depression using PHQ-2 and addressed as appropriate. Assessment & Plan: 1. Rash AMB CONS/FOLLOW UP DERMATOLOGY 2. Prediabetes POCT HEMOGLOBIN A1C CANCELED: URINE [id number] RATIO (ACR) 3. Decreased visual acuity AMB CONS/FOLLOW UP COMM[facility]ITY [facility] TEAM 4. Encounter for subsequent annual wellness visit (AWV) in Medicare patient Diet and exercise were reviewed. The patient has received their preventive health prompt and preventive health plan with registration materials that is personalized for age, sex, and chronic conditions. Medical or community referrals made as needed for fall prevention, Nutrition, physical activity programs, tobacco-use cessation, weight loss, and cognition issues as needed. Additional Plans: see above. Return in about 1 year (around 12/20/2021) for AWV. Nivia Tinsley MD documented in this encounter Plan of Treatment Upcoming Encounters Date Type Department Care Team (Late st Contact Info) Description 06/11/2024 12:45 EDT Office Visit [facility] Ophthalmology - [address] [phone] Santiago Anthony MD [address] [place] [address] 5 [place] [address] 07/15/2024 10:45 EDT Office Visit [facility] [address] [place] [address] Gianfranco Flowers MD 130 [facility] [address] [place] [address] documented as of this encounter Procedures Procedure Name Priority Date/Time Associated Diagnosis Comments POCT HEMOGLOBIN A1C Routine 12/20/2020 Prediabetes documented in this encounter Results * (ABNORMAL) POCT HEMOGLOBIN A1C (12/20/2020) Hemoglobin A1c, POC 6.4(A) 5.7 % [facility] POINT OF CARE Blood CAPILLARY BLOOD / Unknown 12/20/2020 Nivia Tinsley MD POINT OF CARE TEST ORDERABLES [facility] POINT OF CARE documented in this encounter Visit Diagnoses Diagnosis Rash- Primary Rash and other nonspecific skin eruption Prediabetes Other abnormal glucose Decreased visual acuity Unspecified visual loss Encounter for subsequent annual wellness visit (AWV) in Medicare patient documented in this encounter Discontinued Medications Medication Sig Discontinue Reason Start Date End Da te Ammonium Lactate 5 % lotionIndications:Itchin g Apply to affect area daily 12/08/2020 12/20/2020 documented as of this encounter Care Teams Plant Buyer Relationship Specialty Start Date End Date Nivia Tinsley MD [address] [place] [address] PCP - General Family Medicine - Primary Care 08/27/19 Zheng Tapia MD [address] [place] [address] [address] [place] [address] Internal Medicine - Primary Care 09/01/19 Shazia Burks MD [address] [place] [address] Neurology 09/01/19 Tony Baron OD [address] [place] [address] Restoration Technician 09/01/19 Keira Paniagua MD [address] [place] [address] [address] [place] [address] Cardiovascular Disease 09/06/20 Siva Perkins MD [address] [facility] [place] [address] Neurology 09/06/20 documented as of this encounter
--- OUTSIDE RECORDS SUMMARY | 2024-04-29 18:23 | XMS_ITS | Encounter Summary ---
Author Organization [facility] Address [address] [place] [address] Care Team Providers Care Rib Trim Separator Name Role Phone Nivia Tinsley MD Primary Care Provider Zheng Tapia MD Unavailable Shazia Burks MD Unavailable [phone] Tony Baron OD Unavailable [phone] Keira Paniagua MD Unavailable [phone] Siva Perkins MD Unavailable [phone] Reason for Visit * Reason Onset Date Comments Medication Management 12/13/2020 Encounter Details Date Type Department Care Team (Late st Contact Info) Description 12/13/2020 Telephone [facility] Integrative Family Medicine [facility] [address] [place], [place] [phone] Nivia Tinsley MD [address] [place] [address] Medication Management Social History Tobacco [...] Dispensed Refills Start Date End Da te nizatidine (AXID) 150 mg capsule Take 1 Cap by mouth at bedtime. 30 Cap 1 12/13/2020 05/23/2021 documented in this encounter Miscellaneous Notes * Telephone Encounter - Phil Vickers RN - 12/13/2020 0959 EDT Cimetidine PA denied by insurance. Insurance will cover nizatidine. If okay to switch, please send appropriate dose to pharmacy. * Telephone Encounter - Madelaine Chicas - 12/13/2020 0916 EDT Pt called to let us know that she started using a new cream for her itchy skin since the other cream ammonium was just continued new cream OC Sarna. Also asked if we were notified that cimetidine is not covered and let her know PA has been started documented in this encounter Plan of Treatment Upcoming Encounters Date Type Department Care Team (Late st Contact Info) Description 06/11/2024 12:45 EDT Office Visit [facility] Ophthalmology - [address] [address] Santiago Anthony MD 111 [facility] [address] [place] [address] 07/15/2024 10:45 EDT Office Visit [facility] [address] [place] [address] Gianfranco Flowers MD 130 [facility] [address] [place] [address] documented as of this encounter Visit Diagnoses Not on filedocumented in this encounter Discontinued Medications Medication Sig Discontinue Reason Start Date End Da te cimetidine (TAGAMET) 300 mg tabletIndications:Gastro- esophageal reflux disease without esophagitis Take 1 Tab by mouth 2 times daily. 12/08/2020 12/13/2020 documented as of this encounter Care Teams Rib Trim Separator Relationship Specialty Start Date End Date Nivia Tinsley MD [address] [place] [address] PCP - General Family Medicine - Primary Care 08/27/19 Zheng Tapia MD [address] [place] [address] 7 [place] [address] Internal Medicine - Primary Care 09/01/19 Shazia Burks MD [address] [place] [address] Neurology 09/01/19 Tony Baron OD [address] [place] [address] Operations Inspector 09/01/19 Keira Paniagua MD [address] [place] [address] 21 [place] [address] Cardiovascular Disease 09/06/20 Siva Perkins MD [address] [place] [address] Neurology 09/06/20 documented as of this encounter
--- OUTSIDE RECORDS SUMMARY | 2024-04-29 18:23 | XMS_ITS | Encounter Summary ---
Author Organization [facility] Address [address] [place] [address] Care Team Providers Care Master Printer Name Role Phone Nivia Tinsley MD Primary Care Provider [phone] Zheng Tapia MD Unavailable Shazia Burks MD Unavailable [phone] Tony Baron OD Unavailable [phone] Keira Paniagua MD Unavailable [phone] Siva Perkins MD Unavailable [phone] Reason for Visit * Reason Onset Date Comments Prior Auth, Medication 12/10/2020 Encounter Details Date Type Department Care Team (Late st Contact Info) Description 12/10/2020 Telephone [facility] Integrative Family Medicine [address] [phone] Phil Vickers, ANA Prior Auth, Medication Social [...] Telephone Encounter - Stephanie Sheridan RN - 12/17/2020 0835 EDT PA was denied * Telephone Encounter - Phil Vickers RN - 12/10/2020 5111 EST PA for cimetidine sent via covermymeds. documented in this encounter Plan of Treatment Upcoming Encounters Date Type Department Care Team (Late st Contact Info) Description 06/11/2024 12:45 EDT Office Visit [facility] Ophthalmology - [place] [address] [place] [address] Santiago Anthony MD 111 [facility] 5 [place] [address] 07/15/2024 10:45 EDT Office Visit [facility] [address] [place], [place] [phone] Gianfranco Flowers MD 130 [facility] [address] [place] [address] documented as of this encounter Visit Diagnoses Not on filedocumented in this encounter Care Teams Master Printer Relationship Specialty Start Date End Date Nivia Tinsley MD [address] [place] [phone] PCP - General Family Medicine - Primary Care 08/27/19 Zheng Tapia MD [address] [place] [address] [address] [place] [address] Internal Medicine - Primary Care 09/01/19 Shazia Burks MD [address] [place], [place] [address] Neurology 09/01/19 Tony Baron OD [address] [place] [address] Drilling Manager 09/01/19 Keira Paniagua MD [address] [place] [address] Cardiovascular Disease 09/06/20 Siva Perkins MD 1200 [facility] [place] [address] Neurology 09/06/20 documented as of this encounter
--- OUTSIDE RECORDS SUMMARY | 2024-04-29 18:23 | XMS_ITS | Encounter Summary ---
Author Organization [facility] Address [address] [place] [address] Care Team Providers Care Operational Test Mechanic Name Role Phone Nivia Tinsley MD Primary Care Provider Zheng Tapia MD Unavailable Shazia Burks MD Unavailable [phone] Tony Baron OD Unavailable [phone] Keira Paniagua MD Unavailable [phone] Siva Perkins MD Unavailable [phone] Reason for Visit * Reason Onset Date Comments Other 01/27/2021 Encounter Details Date Type Department Care Team (Late st Contact Info) Description 01/27/2021 Telephone [facility] Family Medicine [facility] [address] [place], [place] [phone] Nivia Tinsley MD [address] [place] [address] Other Social History Tobacco Use [...] Telephone Encounter - Phil Vickers RN - 01/27/2021 0920 EDT Unfortunately this sounds like a scam. I spoke with the patient's food service representative and instructed herto block this caller and to not provide them with any PHI. The patient's food service representative agreed. * Telephone Encounter - Madelaine Chicas - 01/27/2021 0915 EDT Pt is calling asking if ordered a device to help with arthritis. They received a call from a guywith heavy accent yesterday calling from office that pt needed to talk to someone in shipping about buying the arthritis device. I do not see in notes anywhere and pt and family day care worker both feel its a scam and not sure what to do and asking what they should do. documented in this encounter Plan of Treatment Upcoming Encounters Date Type Department Care Team (Late st Contact Info) Description 06/11/2024 12:45 EDT Office Visit [facility] Ophthalmology - [place] [address] [place], [place] [phone] Santiago Anthony MD [address] [place] [address], [facility] 5 [place] [address] 07/15/2024 10:45 EDT Office Visit [facility] [address] [place], [place] [phone] Gianfranco Flowers MD 130 [facility] [address] [place] [address] documented as of this encounter Visit Diagnoses Not on filedocumented in this encounter Care Teams Operational Test Mechanic Relationship Specialty Start Date End Date Nivia Tinsley MD [address] [place] [phone] PCP - General Family Medicine - Primary Care 08/27/19 Zheng Tapia MD [address] [place] [address] [address] [place] [phone] Internal Medicine - Primary Care 09/01/19 Shazia Burks MD [address] [place] [address] Neurology 09/01/19 Tony Baron, FRANCK [address] [place] [address] Knitting Machine Mechanic 09/01/19 Keira Paniagua MD [address] [place] [address] [address] [place] [phone] Cardiovascular Disease 09/06/20 Siva Perkins MD [address] [facility] [place] [address] Neurology 09/06/20 documented as of this encounter
--- OUTSIDE RECORDS SUMMARY | 2024-04-29 18:24 | XMS_ITS | Encounter Summary ---
Author Organization [facility] Address [address] [place] [address] Care Team Providers Care Agricultural Researcher Name Role Phone Nivia Tinsley MD Primary Care Provider Zheng Tapia MD Unavailable Shazia Burks MD Unavailable [phone] Tony Baron OD Unavailable [phone] Keira Paniagua MD Unavailable [phone] Siva Perkins MD Unavailable [phone] Reason for Visit * Reason Onset Date Comments Referral Request 11/10/2020 Encounter Details Date Type Department Care Team (Late st Contact Info) Description 11/10/2020 Telephone [facility] Integrative Family Medicine [facility] [address] [place], [place] [phone] Nivia Tinsley MD [address] [place] [address] Referral Request Social History Tobacco [...] Resource Strain (CARDIA) Answe r Date Recorded Difficulty of Paying Living Expenses Not hard at all 09/09/2019 PHQ-2 Answer Date Recorded PHQ-2 Score 0 05/02/2020 Hunger Vital Sign Answer Date Recorded Worried About Running Out of Food in the Last Ye ar Never true 09/09/2019 Ran Out of Food in the Last Year Never true 09/09/2019 PRAPARE - Transportation Answer Date Re corded Lack of Transportation (Medical) No 09/09/2019 Lack of Transportation (Non-Medical) No 09/09/2019 Interpersonal Safety Answer Date Record ed Physically [...] Telephone Encounter - Phil Vickers RN - 11/10/2020 1621 EST permission given. * Telephone Encounter - Justine Linares - 11/10/2020 1617 EST Home health looking to get permission for patient to get PT treatment. documented in this encounter Plan of Treatment Upcoming Encounters Date Type Department Care Team (Late st Contact Info) Description 06/11/2024 12:[address] [facility] Ophthalmology - [place] [address] [place] [address] Santiago Anthony MD 111 [facility] 5 [place] [address] 07/15/2024 10:45 EDT Office Visit [facility]iology Clinic [address] [place], [place] [phone] Gianfranco Flowers MD [address] [place] [address] [address] documented as of this encounter Visit Diagnoses Not on filedocumented in this encounter Care Teams Agricultural Researcher Relationship Specialty Start Date End Date Nivia Tinsley MD [address] [place] [address] PCP - General Family Medicine - Primary Care 08/27/19 Zheng Tapia MD [address] [place] [address] Internal Medicine - Primary Care 09/01/19 Shazia Burks MD [address] [place] [address] Neurology 09/01/19 Tony Baron, FRANCK [address] [place] [address] Firebrick Layer Helper 09/01/19 Keira Paniagua MD [address] [place], [place] [address] [address] [place] [address] Cardiovascular Disease 09/06/20 Siva Perkins MD [address] [place] [address] Neurology 09/06/20 documented as of this encounter
--- OUTSIDE RECORDS SUMMARY | 2024-04-29 18:24 | XMS_ITS | Encounter Summary ---
Author Organization [facility] Address [address] [place] [address] Care Team Providers Care Plant Changer Name Role Phone Nivia Tinsley MD Primary Care Provider Zheng Tapia MD Unavailable Shazia Burks MD Unavailable [phone] Tony Baron OD Unavailable [phone] Keira Paniagua MD Unavailable [phone] Siva Perkins MD Unavailable [phone] Encounter Details Date Type Department Care Team (Late st Contact Info) Description 09/14/2020 Results Only [facility] [place] [address] Fay Betts MD [address] [facility] [address] [place], [place] [address] Social History Tobacco Use Types Packs/Day Years [...] have Coronavirus / COVID-19? No / Unsure 09/14/2020 9:41 EST documented as of this encounter Functional [...] Description 06/11/2024 12:45 EDT Office Visit [facility] Ophthalmology [facility] [address] [place] [address] Santiago Anthony MD [address] [place] [address], [facility] 5 [place] [address] 07/15/2024 10:45 EDT Office Visit [facility] Clinic [address] [place], [place] [address] Gianfranco Flowers MD 130 [facility] [address]OB-A [address] [place] [phone] documented as of this encounter Procedures Procedure Name Priority Date/Time Associated Diagnosis Comments COVID-19 TESTING Routine 09/14/2020 16:1 3 EST documented in this encounter Results * COVID-19 TESTING (09/14/2020 16:13 EST) Performing Lab [facility] 09/17/2020 2:59 EST [facility] Comment: Please indicate the Triage Tier2 Test performed or referred by The [address] [address] COVID-19 rt-PCR Result Not Detected Negative 09/17/2020 2:59 EST [facility] Comment: 2019-novel Coronavirus (2019-nCoV) not detected by the qRT-PCR assay. Consider testing for other respiratory viruses or re-collecting for 2019-nCoV testing. Note: Optimum timing for peak viral levels during infections caused by 2019-nCoV have not been determined. Collection of multiple specimens from the same patient may be necessary to detect the virus. Limitations Positive results are indicative of active infection with SARS-CoV-2 but do not rule out bacterial infection or co-infection with other viruses. The agent detected may not be the definite cause of disease. In addition, detection of viral RNA may not indicate the presence of infectious virus or that SARS-CoV-2 is the causative agent for clinical symptoms. Negative results do not preclude SARS-CoV-2 infection and should not be used as the sole basis for patient management decisions. Negative results must be combined with clinical observations, patient history, and epidemiological information. False negative results may also occur if amplification inhibitors are present in the specimen or if inadequate numbers of organisms are present in the specimen. Optimum specimen types and timing for peak viral levels during infections caused by SARS-CoV-2 have not been fully determined. Collection of multiple specimens (types and time points) from the same patient may be necessary to detect the virus. The test was validated for use with upper respiratory specimens obtained via nasopharyngeal or oropharyngeal swabs in VTM, UTM, M4, M5, M6, saline, and MTM media. The performance of this test has not been established for other specimens. Specimens collected using other FDA recommended Specimen Collection Materials listed in the FDA COVID-19 [employer] communication (December 25, 2019) are processed with the caveat that they were not all validated for use with this test and the result must be interpreted in this context. Furthermore, a false negative results may occur if a specimen is improperly collected, transported or handled. If the virus mutates in the RT-PCR target region, SARS-CoV-2 may not be detected or may be detected less predictably. Inhibitors or other types of interference may produce a false negative result. An interference study evaluating the effect of common cold medications was not performed. This test is not FDA-cleared but its performance characteristics were established by our CLIA-certified, CAP-accredited, high complexity laboratory in accordance with CLIA regulations, College [employer] (CAP) guidelines (Dec 18, 2019), and FDA guidance (Nov 29, 2019). This test is only for use under the Food and Drug Administration's Emergency Use Authorization. 09/14/2020 16:1 3 EST 09/14/2020 16:13 EST Fay Betts MD MICROBIOLOGY - [facility] AL ORDERABLES [facility] [address] [place] [address] documented in this encounter Visit Diagnoses Not on filedocumented in this encounter Care Teams Plant Changer Relationship Specialty Start Date End Date Nivia Tinsley MD [address] [place] [address] PCP - General Family Medicine - Primary Care 08/27/19 Zheng Tapia MD [address] [place] [address] [address] [place] [phone] Internal Medicine - Primary Care 09/01/19 Shazia Burks MD [address] [place], [place] [address] Neurology 09/01/19 Tony Baron OD [address] [place] [phone] Electronic Organ Mechanic 09/01/19 Keira Paniagua MD [address] [place] [address] Cardiovascular Disease 09/06/20 Siva Perkins MD [address] [place] [address] Neurology 09/06/20 documented as of this encounter
--- OUTSIDE RECORDS SUMMARY | 2024-04-29 18:24 | XMS_ITS | Encounter Summary ---
Author Organization [facility] Address [address] [place] [address] Care Team Providers Care Ceo [place] Name Role Phone Nivia Tinsley MD Primary Care Provider Zheng Tapia MD Unavailable Shazia Burks MD Unavailable [phone] Tony Baron OD Unavailable [phone] Keira Paniagua MD Unavailable Siva Perkins MD Unavailable [phone] Sheryl Schwab RN Unavailable Ladonna Candelario Unavailable Unavailable Encounter Details Date Type Department Care Team (Late st Contact Info) Description 09/14/2020 Lab Requisition [facility] - [facility] [address] [place] [address] Outr Resulting Lab, Provider Social History Tobacco Use Types Packs/Day Years [...] EDT Office Visit [facility] Ophthalmology [facility] [address] [place] [address] Santiago Anthony MD [address] [place] [address], [facility] 5 [place] [address] 07/15/2024 10:45 EDT Office Visit [facility] Cardiology Clinic [address] [place] [address] Gianfranco Flowers MD 130 [facility] [address] [address] [place] [address] documented as of this encounter Procedures Procedure Name Priority Date/Time Associated Diagnosis Comments DO NOT ORDER STANDALONE - BROAD COVID TEST Today 09/14/2020 0:00 EST COVID-19 TESTING Routine 09/14/2020 0:00 EST documented in this encounter Results * DO NOT ORDER STANDALONE - BROAD COVID TEST (09/14/2020 0:00 EST) COVID-19 rt-PCR Result NEGATIVE Negative 09/16/2020 19:09 EST [facility] Comment: 2019-novel Coronavirus (2019-nCoV) not detected by [...] obtained via nasopharyngeal or oropharyngeal swabs in [facility], M4, M5, M6, saline, and MTM media. [...] in accordance with CLIA regulations, College of [employer] (CAP) guidelines (Dec 18, 2019), and FDA guidance (Nov 29, 2019). This test is only for use under the Food and Drug Administration's Emergency Use Authorization. Swab ENTIRE NASOPHARYNX / Unknown 09/14/2020 09/14/2020 21:01 EST Provider Outr Resulting Lab MICROBIOLOGY - GENERAL ORDERABLES [facility] [place] [place] * COVID-19 TESTING (09/14/2020 0:00 EST) COVID-19 rt-PCR Result NEGATIVE Negative 09/16/2020 21:31 EST [facility] Comment: 2019-novel Coronavirus (2019-nCoV) not detected by [...] in accordance with CLIA regulations, College of [employer] (CAP) guidelines (Dec 18, 2019), and FDA guidance (Nov 29, 2019). This test is only for use under the Food and Drug Administration's Emergency Use Authorization. Performing Lab [facility] 09/16/2020 21:31 EST [facility] Swab 09/14/2020 09/14/2020 21: 01 EST Provider Outr Resulting Lab MICROBIOLOGY - GENERAL ORDERABLES [facility] [address] [place], [place] [id number] [place] [address] [facility] [place] documented in this encounter Visit Diagnoses Not on filedocumented in this encounter Additional Health Concerns Infection Onset Date Last Indicated Resolved Time R/O COVID-19 Comment:Covid neg. 02/21/2022 02/21/2022 02/21/2022 10:07 EDT Rule-Out C. difficile 02/21/2022 02/21/20222021 14:01 EDT documented as of this encounter Care Teams [employer] [place] Relationship Specialty Start Date End Date Nivia Tinsley MD [address] [place] [address] PCP - General Family Medicine - Primary Care 08/27/19 Zheng Tapia MD [address] [place] [address] [address] [place] [address] Internal Medicine - Primary Care 09/01/19 Shazia Burks MD [address] [place] [address] Neurology 09/01/19 Tony Baron OD [address] [place] [address] Sub Acute Care Nurse 09/01/19 Keira Paniagua MD [address] [place] [address] [address] [place] [address] Cardiovascular Disease 09/06/20 Siva Perkins MD [address] [place] [address] Neurology 09/06/20 Sheryl Schwab, ANA [address] [place], [place] [address] Bag Builder 01/23/24 01/23/24 Ladonna Candelario Bag Builder 01/23/24 documented as of this encounter
--- OUTSIDE RECORDS SUMMARY | 2024-04-29 18:24 | XMS_ITS | Encounter Summary ---
Author Organization [facility] Address [address] [place] [address] Care Team Providers Care Preparer Name Role Phone Nivia Tinsley MD Primary Care Provider [phone] Zheng Tapia MD Unavailable Shazia Burks MD Unavailable [phone] Tony Baron OD Unavailable [phone] Keira Paniagua MD Unavailable [phone] Siva Perkins MD Unavailable [phone] Reason for Visit * Reason Onset Date Comments Other 11/12/2020 Encounter Details Date Type Department Care Team (Late st Contact Info) Description 11/12/2020 Telephone [facility] Integrative Family Medicine [address] [phone] Sherly Mei, RN Other Social History Tobacco Use Types Packs/Day [...] encounter Miscellaneous Notes * Telephone Encounter - Felicia Boyle LPN - 11/15/2020 1139 EST TM left for HH with ok with below * Telephone Encounter - Sherly Mei RN - 11/12/2020 1718 EST Calling for PT orders: Wants to see pt 2x/wk for 1 week, then 3x/wk for 3 weeks to work on gait, balance, strength, and establish home exercise plan. documented in this encounter Plan of Treatment Upcoming Encounters Date Type Department Care Team (Late st Contact Info) Description 06/11/2024 12:45 EDT Office Visit [facility] Ophthalmology - [place] [address] [place] [address] Santiago Anhtony MD 111 [facility] 5 [place] [address] 07/15/2024 10:45 EDT Office Visit [facility] Cardiology Clinic [address] [place] [address] Gianfranco Flowers MD [address] [place] [address] documented as of this encounter Visit Diagnoses Not on filedocumented in this encounter Care Teams Preparer Relationship Specialty Start Date End Date Nivia Tinsley MD [address] [place] [address] PCP - General Family Medicine - Primary Care 08/27/19 Zheng Tapia MD [address] [place] [address] Internal Medicine - Primary Care 09/01/19 Shazia Burks MD [address] [place] [address] Neurology 09/01/19 Tony Baron OD [address] [place] [address] Learning Consultant 09/01/19 Keira Paniagua MD 130 [facility] [address] [address] Cardiovascular Disease 09/06/20 Siva Perkins MD [address] [place] [address] Neurology 09/06/20 documented as of this encounter
--- OUTSIDE RECORDS SUMMARY | 2024-04-29 18:24 | XMS_ITS | Encounter Summary ---
Author Organization [facility] Address [address] [place] [address] Care Team Providers Care Customs Collector Name Role Phone Nivia Tinsley MD Primary Care Provider [phone] Zheng Tapia MD Unavailable Shazia Burks MD Unavailable [phone] Tony Baron OD Unavailable [phone] Keira Paniagua MD Unavailable [phone] Siva Perkins MD Unavailable [phone] Reason for Visit * Reason Onset Date Comments Results 09/16/2020 Encounter Details Date Type Department Care Team (Late st Contact Info) Description 09/16/2020 Telephone [facility] Integrative Family Medicine [address] [phone] Sherly Mei, ANA Results Social History Tobacco Use Types Packs/Day [...] encounter Miscellaneous Notes * Telephone Encounter - Aracelis Garcia - 09/20/2020 0832 EST Appointment rescheduled. * Telephone Encounter - Brenda-Sherly Bonilla, ANA - 09/16/2020 5089 EST Pt LM on pharmline, I want to talk to a person!. Said she was supposed to have an appt yesterday and no one would see her because she had to have a COVID test. Upset that no one has called her backwith the results. Pt's appt was actually on 09/14 for a wellness visit, was sent back to car b/c she reported COVID symptoms at check-in. Test result is negative, pls f/u w/ pt. She needs to reschedule AWV. documented in this encounter Plan of Treatment Upcoming Encounters Date Type Department Care Team (Late st Contact Info) Description 06/11/2024 12:45 EDT Office Visit [facility] Ophthalmology - [place] [address] [place] [address] Santiago Anthony MD 111 [facility] 5 [place] [address] 07/15/2024 10:45 EDT Office Visit [facility] Cardiology Clinic [address] [place], [place] [phone] Gianfranco Flowers MD 130 [facility] [address] [place] [address] documented as of this encounter Visit Diagnoses Not on filedocumented in this encounter Care Teams Customs Collector Relationship Specialty Start Date End Date Nivia Tinsley MD [address] [place] [address] PCP - General Family Medicine - Primary Care 08/27/19 Zheng Tapia MD [address] [place] [address] [address] [place] [address] Internal Medicine - Primary Care 09/01/19 Shazia Burks MD [address] [place], [place] [address] Neurology 09/01/19 Tony Baron OD [address] [place] [address] Bat Lathe Operator 09/01/19 Keira Paniagua MD [address] [place] [address] Cardiovascular Disease 09/06/20 Siva Perkins MD [address] [place] [address] Neurology 09/06/20 documented as of this encounter
--- OUTSIDE RECORDS SUMMARY | 2024-04-29 18:24 | XMS_ITS | Encounter Summary ---
Author Organization [facility] Address [address] [place] [address] Care Team Providers Care Parts Sales Advisor Name Role Phone Nivia Tinsley MD Primary Care Provider Zheng Tapia MD Unavailable Shazia Burks MD Unavailable [phone] Tony Baron OD Unavailable [phone] Keira Paniagua MD Unavailable [phone] iSva Perkins MD Unavailable [phone] Reason for Visit * Reason Onset Date Comments Other 09/18/2020 Covid 19 call ce nter Encounter Details Date Type Department Care Team (Late st Contact Info) Description 09/18/2020 Telephone [facility] Cardiology Clinic [address] [place], [place] [phone] [address]ona [address], ANA [address] [place] [address] [address] [place] [address] Other (Covid 19 call center) Social History Tobacco Use Types Packs/Day Years [...] encounter Miscellaneous Notes * Telephone Encounter - Rhona Way RN - 09/18/2020 1029 EST Spoke with patient and notified her of negative test results. She denies symptoms at this time and is feeling well. documented in this encounter Plan of Treatment Upcoming Encounters Date Type Department Care Team (Late st Contact Info) Description 06/11/2024 12:45 EDT Office Visit [facility] - [place] [address] [place], [place] [phone] Santiago Anthony MD 111 [facility] 5 [place] [address] 07/15/2024 10:45 EDT Office Visit [facility] Cardiology Clinic [address] [place] [address] Gianfranco Flowers MD [address] [place] [address] [address] documented as of this encounter Visit Diagnoses Not on filedocumented in this encounter Care Teams Parts Sales Advisor Relationship Specialty Start Date End Date Nivia Tinsley MD [address] [place] [address] PCP - General Family Medicine - Primary Care 08/27/19 Zheng Tapia MD [address] [place] [address] Internal Medicine - Primary Care 09/01/19 Shazia Burks MD [address] [place] [address] Neurology 09/01/19 Tony Baron OD [address] [place] [address] Pyroglazer 09/01/19 Keira Paniagua MD 130 [facility] 21 [place] [address] Cardiovascular Disease 09/06/20 Siva Perkins MD [address] [place] [address] Neurology 09/06/20 documented as of this encounter
--- OUTSIDE RECORDS SUMMARY | 2024-04-29 18:24 | XMS_ITS | Encounter Summary ---
Author Organization [facility] Address [address] [place] [address] Care Team Providers Care Digital Marketing Lead Name Role Phone Nivia Tinsley MD Primary Care Provider Zheng Tapia MD Unavailable Shazia Burks MD Unavailable [phone] Tony Baron OD Unavailable [phone] Keira Paniagua MD Unavailable [phone] Siva Perkins MD Unavailable [phone] Reason for Visit * Reason Onset Date Comments Other 12/02/2020 Needs apt before 12/12 Encounter Details Date Type Department Care Team (Late st Contact Info) Description 12/02/2020 Telephone [facility] Integrative Family Medicine [facility] [address] [place] [address] Nivia Tinsley MD [address] [place] [address] Other (Needs apt before 12/12 ) Social History Tobacco Use Types Packs/Day Years [...] * Telephone Encounter - Aracelis Garcia - 12/07/2020 1121 EST Gio at [facility] called back to let us know that patients PT will be assisting patient with Zoom visit. Patient notified. * Telephone Encounter - Aracelis Garcia - 12/07/2020 0827 EST Patient called re: zoom appt on Sun w/[facility]. She has no idea how she will be doing this. LM w/Gio at [facility] to confirm she will be assisting patient at this visit. Will need to call back Concetta once confirmed. * Telephone Encounter - Madelaine Chicas - 12/02/2020 1636 EST LMOM for gio to call back to sched pt for 20 min apt either in office or zoom. * Telephone Encounter - Madelaine Chicas - 12/02/2020 1618 EST Gio is calling today seeking a face to face apt either zoom or in office before 12/12 for medicare to cover home health services. [facility] has a couple of 20 min spots would it be ok to put her in one ofthose for a zoom call? documented in this encounter Plan of Treatment Upcoming Encounters Date Type Department Care Team (Late st Contact Info) Description 06/11/2024 12:45 EDT Office Visit [facility] Ophthalmology - [place] [address] [place] [address] Santiago Anthony MD [address] [place] [address], [address] [place] [address] 07/15/2024 10:45 EDT Office Visit [facility] Cardiology Clinic [address] [place] [address] Gianfranco Flowers MD 130 [facility] [address] [place] [address] documented as of this encounter Visit Diagnoses Not on filedocumented in this encounter Care Teams Digital Marketing Lead Relationship Specialty Start Date End Date Nivia Tinsley MD [address] [place] [address] PCP - General Family Medicine - Primary Care 08/27/19 Zheng Tapia MD [address] [place] [address] [address] [place] [address] Internal Medicine - Primary Care 09/01/19 Shazia Burks MD [address] [place] [address] Neurology 09/01/19 Tony Baron OD [address] [place] [address] Clin Nurse 09/01/19 Keira Paniagua MD 130 [facility] [address] [place] [address] Cardiovascular Disease 09/06/20 Siva Perkins MD [address] [place] [address] Neurology 09/06/20 documented as of this encounter
--- OUTSIDE RECORDS SUMMARY | 2024-04-29 18:24 | XMS_ITS | Encounter Summary ---
Author Organization [facility] Address [address] [place] [address] Care Team Providers Care Public Health Aide Name Role Phone Nivia Tinsley MD Primary Care Provider Zheng Tapia MD Unavailable Shazia Burks MD Unavailable [phone] Tony Baron OD Unavailable [phone] Keira Paniagua MD Unavailable [phone] Siva Perkins MD Unavailable [phone] Reason for Visit * Reason Onset Date Comments Social Work 08/04/2020 care coordinatio n Encounter Details Date Type Department Care Team (Late st Contact Info) Description 09/27/2020 Telephone [facility] Integrative Family Medicine [address] [phone] Terri Byrd Social Work (care coordination) Social [...] encounter Miscellaneous Notes * Telephone Encounter - Terri Byrd - 09/27/2020 1400 EST Due to computer system disruption, additional clinical information for this visit is Scanned Note. For patients, please refer to guidance in [employer] on how to locate information. Generally this information will appear as a scanned documents saved in My Documents activity. documented in this encounter Plan of Treatment Upcoming Encounters Date Type Department Care Team (Late st Contact Info) Description 06/11/2024 12:45 EDT Office Visit [facility] Ophthalmology - [place] [address] [place], [place] [phone] Santiago Anthony MD 111 [facility] 5 [place] [address] 07/15/2024 10:45 EDT Office Visit [facility] Cardiology Clinic [address] [place], [place] [phone] Gianfranco Flowers MD [address] [place] [address] [address] [place] [address] documented as of this encounter Visit Diagnoses Not on filedocumented in this encounter Care Teams Public Health Aide Relationship Specialty Start Date End Date Nivia Tinsley MD [address] [place] [address] PCP - General Family Medicine - Primary Care 08/27/19 Zheng Tapia MD [address] [place] [address] 7 [place] [address] Internal Medicine - Primary Care 09/01/19 Shazia Burks MD [address] [place] [address] Neurology 09/01/19 Tony Baron OD [address] [place] [address] Director Of Content Marketing 09/01/19 Keira Paniauga MD [address] [facility] [address] [place] [address] Cardiovascular Disease 09/06/20 Siva Perkins MD [address] [place] [address] Neurology 09/06/20 documented as of this encounter
--- OUTSIDE RECORDS SUMMARY | 2024-04-29 18:24 | XMS_ITS | Encounter Summary ---
Author Organization [facility] Address [address] [place] [address] Care Team Providers Care Metal Expediter Name Role Phone Nivia Tinsley MD Primary Care Provider Zheng Tapia MD Unavailable Shazia Burks MD Unavailable [phone] Tony Baron OD Unavailable [phone] Keira Paniagua MD Unavailable [phone] Siva Perkins MD Unavailable [phone] Reason for Visit * Reason Onset Date Comments Leg Pain 10/07/2020 Encounter Details Date Type Department Care Team (Late st Contact Info) Description 10/07/2020 Telephone [facility] Integrative Family Medicine [facility] [address] [place], [place] [phone] Nivia Tinsley MD [address] [place] [address] Leg Pain Social History Tobacco Use Types Packs/Day Years [...] Miscellaneous Notes * Telephone Encounter - Phil iVckers RN - 10/07/2020 0805 EST Patient contacts the office with some pain of her right leg from the level of her buttocks to her foot. The patient states the pain comes in spasms and waves. Patient denies any calf pain, swelling, redness, coolness, or pallor. ? sciatica The patient is currently resting in bed. The patient will try 1,000 mg of tylenol for her symptoms and contact the office if this is not effective. Should the patient's pain become severe, she agrees to seek care in the ED. * Telephone Encounter - Madelaine Chicas - 10/07/2020 0807 EST Pt is calling today asking to speak to nurse, she has pain and cant get comfortable. Pt Right foot started hurting and the pain went all the way up her leg and kept her up all night. Pt states has some medicine that she wants to ask about if she can start taking. Pt is asking for appt today. Please advice Medicine from coco givens APAP 500 mg to take as needed for pain documented in this encounter Plan of Treatment Upcoming Encounters Date Type Department Care Team (Late st Contact Info) Description 06/11/2024 12:[address] [facility] Ophthalmology - [address] [phone] Santiago Anthony MD [address] [place] [address], [facility] 5 [place] [address] 07/15/2024 10:45 EDT Office Visit [facility] Cardiology Clinic [address] [place], [place] [phone] Gianfranco Flowers MD [address] [facility] [address] [place] [address] documented as of this encounter Visit Diagnoses Not on filedocumented in this encounter Care Teams Metal Expediter Relationship Specialty Start Date End Date Nivia Tinsley MD [address] [place] [phone] PCP - General Family Medicine - Primary Care 08/27/19 Zheng Tapia MD [address] [place] [address] [address] [place] [address] Internal Medicine - Primary Care 09/01/19 Shazia Burks MD [address] [place] [address] Neurology 09/01/19 Tony Baron, FRANCK [address] [place] [address] Linseed Oil Boiler 09/01/19 Keira Paniagua MD [address] [place] [address] [address] [place] [address] Cardiovascular Disease 09/06/20 Siva Perkins MD 1200 [facility] [place] [address] Neurology 09/06/20 documented as of this encounter
--- OUTSIDE RECORDS SUMMARY | 2024-04-29 18:25 | XMS_ITS | Encounter Summary ---
Author Organization [facility] Address [address] [place] [address] Care Team Providers Care Court Liaison Name Role Phone Nivia Tinsley MD Primary Care Provider Reagan Pickett MD Unavailable Zheng Tapia MD Unavailable Shazia Burks MD Unavailable Tony Baron OD Unavailable [phone] Keira Paniagua MD Unavailable Siva Perkins MD Unavailable [phone] Reason for Visit * Reason Comments Follow-up TCM from CVA Hypertension Prediabetes Hyperlipidemia Hypothyroidism Encounter Details Date Type Department Care Team (Latest Contact Info) Description 08/02/2020 13:00 EST Office Visit [facility] Integrative Family Medicine [facility] [address] [place] [address] Nivia Tinsley MD [address] [place] [address] Need for vaccination (Primary Dx); Prediabetes; Cerebrovascular accident (CVA) due to occlusion of precerebral artery (HCC-CMS); Mixed hyperlipidemia; Essential hypertension; Basilar artery stenosis/occlusion with infarction (HCC-CMS); Mixed stress and urge urinary incontinence Social History Tobacco Use Types Packs/Day Years [...] Sign Reading Time Taken Comments Blood Pressure 144/84 08/02/2020 1156 EST Pulse 74 08/02/2020 1156 EST Temperature - - Respiratory Rate - - Oxygen Saturation - - Inhaled Oxygen Concentration - - Weight 70.1 kg (154 lb 9.6 oz) 08/02/[address] Height - - Body Mass Index 26.33 09/30/2019 1505 EST documented in this encounter Functional Status [...] Progress Notes * Nivia Tinsley MD - 08/02/2020 1300 EST Images from the original note were not included. Due to computer system disruption, additional clinical information for this visit is Scanned Note. For patients, please refer to guidance in [facility] on how to locate information. Generally this information will appear as a scanned documents saved in My Documents activity. Nivia Tinsley MD documented in this encounter Miscellaneous Notes * Result Encounter Note - Nivia Tinsley MD - 08/02/2020 1300 EST Results are abnormal. She is in the DM range now, would she like a referral to [place] to discuss diet, or would she like to start meds? documented in this encounter Plan of Treatment Upcoming Encounters Date Type Department Care Team (Late st Contact Info) Description 06/11/2024 12:45 EDT Office Visit [facility] Ophthalmology - [address] [address] Santiago Anthony MD [address] [place] [address], [facility] 5 [place] [address] 07/15/2024 10:45 EDT Office Visit [facility] Cardiology Clinic [address] [place], [place] [phone] Gianfranco Flowers MD 130 [facility] [address] [place] [address] documented as of this encounter Procedures Procedure Name Priority Date/Time Associated Diagnosis Comments POCT HEMOGLOBIN A1C Routine 08/02/2020 Prediabetes documented in this encounter Results * (ABNORMAL) POCT HEMOGLOBIN A1C (08/02/2020) Hemoglobin A1c, POC 6.5(A) 5.7 % [facility] POINT OF CARE Blood CAPILLARY BLOOD / Unknown 08/02/2020 Nivia Tinsley MD POINT OF CARE TEST ORDERABLES [facility] POINT OF CARE documented in this encounter Visit Diagnoses Diagnosis Need for vaccination- Primary Need for prophylactic vaccination and inoculation against unspecified single disease Prediabetes Other abnormal glucose Cerebrovascular accident (CVA) due to occlusion of precerebral artery (HCC-CMS) Mixed hyperlipidemia Essential hypertension Unspecified essential hypertension 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 Mixed incontinence urge and stress (male)(female) documented in this encounter Orders Immunization/Injection Count Last Ordered Date First Ordered Date INFLUENZA VACCINE HIGH DOSE (FLUZONE HIGH DOSE) PF 0.7 ML IM (65 YRS+) 1 09/02/2020 documented in this encounter Care Teams Court Liaison Relationship Specialty Start Date End Date Nivia Tinsley MD [address] [place] [address] PCP - General Family Medicine - Primary Care 08/27/19 Reagan Pickett MD [address] [place] [address] Cardiovascular Disease 09/01/19 0 Zheng Tapia MD [address] [place] [address] [address] [place] [address] Internal Medicine - Primary Care 09/01/19 Shazia Burks MD [address] [place], [place] [address] Neurology 09/01/19 Tony Baron OD [address] [place] [address] Race Steward 09/01/19 Keira Paniagua MD [address] [place] [address] Cardiovascular Disease 09/06/20 Siva Perkins MD 1200 [facility] [place] [address] Neurology 09/06/20 documented as of this encounter
--- OUTSIDE RECORDS SUMMARY | 2024-04-29 18:25 | XMS_ITS | Encounter Summary ---
Author Organization [facility] Address [address] [place] [address] Care Team Providers Care Shrub Planter Name Role Phone Nivia Tinsley MD Primary Care Provider [phone] Zheng Tapia MD Unavailable Shazia Burks MD Unavailable [phone] Tony Baron OD Unavailable [phone] Keira Paniagua MD Unavailable [phone] Siva Perkins MD Unavailable [phone] Reason for Visit * Reason Onset Date Comments Other 09/14/2020 Encounter Details Date Type Department Care Team (Late st Contact Info) Description 09/14/2020 Telephone [facility] - Mobile Testing Department [address] [place] [address] Gaby Guidry RN Other Social History Tobacco Use Types [...] encounter Miscellaneous Notes * Telephone Encounter - Gaby Guidry RN - 09/14/2020 1137 EST This patient is calling the [facility] [place] with concern for COVID-19. Needs an inhouse testing by [place] and they will arrange testing in the home The patient has had congestion , cough, runny nose and sore throat for > 10 days. COVID-19 testing is indicated according to current [facility] algorithm. The patient has been previously tested for Covid-19. (if yes - list date of testing) oct when in [place] Bullard Patient is not a health care worker. If patient is a [facility] Employee Covid Test was ordered for the following reason: Patient is not immunocompromised. The patient is not a resident of a jail or assisted living facility. (If patient is, home health will facilitate testing once ordered). Patient was not offered a telehealth visit with their PCP or Express Care provider to further discuss symptoms and patient This patient is currently stable, and was advised to go to the ER or call 911 with any worsening symptoms. COVID-19 Home Instructions COVID-19 is a viral illness that cannot be treated with antibiotics or antivirals, and there is no vaccine. Symptoms are fever, cough, and shortness of breath that can last 2-4 weeks. Some people will have headache, sore throat, body aches, chills, diarrhea and loss of taste or smell. It is spread through person to person contact or by touching objects and surfaces that are contaminated with the virus and then touching your mouth, nose, or eyes. If you are experiencing any symptoms, it is important that you ???self-isolate?? , meaning stay home and do the following: ??? Stay home, get rest, and drink plenty of healthy fluids (like water, Gatorade). ? Take Tylenol (acetaminophen) pain relievers, fever reducers, decongestants or cough medicine tomanage symptoms. Avoid NSAID's (Advil, Motrin, and Aleve). ??? Call your PCP first if you have chronic health conditions before you take these medications. ? Do not go to work/school/public areas. ? Avoid public transportation/ride-sharing/taxis. ? Separate yourself from other people and animals in your home. ? Use a separate bathroom if available. ? Cover your coughs and sneezes with a tissue. ??? Wear a facemask when around other people. ? Avoid sharing personal household items (cups, dishes, utensils, towels, bedding) ? Clean your hands often either with soap and water for 20 seconds or an alcohol-based hand head of music that contains at least 60% alcohol. ? Clean high-touch surfaces every day (counter, tables, doorknobs, toilet, computer, etc.) We ask that you check your temperature and monitor your symptoms daily. Seek prompt medical care ifyour illness is worsening. Complications of the illness include pneumonia, organ failure, and in some cases . Severe symptoms include: ??? Shortness of breath or difficulty breathing (feeling like you can't get enough air or are gasping, unable to speak without stopping for air, feelings of distress). ? Weakness, dizziness, or chest pain. If you are experiencing any of these symptoms, please call your primary care office BEFORE seeking care, or call 911 if it is a medical emergency. Inform your PCP office or tow truck dispatcher that you are on self-isolation for possible COVID-19 and have worsening symptoms. If you are able, wear a mask before entering any facility. These steps will help reduce possible transmission to other people. What do I do while waiting for my test results? After you have had your test, you should ???self-isolate?? until you receive your test results. This means you should stay home, separate yourself from others and pets. You should not leave your home for any reason unless it is a medical emergency. This includes things like going to other medical a ppointments, the grocery story, to visit family and friends. When do I no longer need to stay home and ???self-isolate?? ? You can stop isolation if your test results were negative and you do not have any symptoms, or if you had symptoms but now meet all three of the following conditions: 1. You have had no fever for at least the last 24 hours (that means one full day of no fever without the use of fever-reducing medication) AND 2. Other symptoms have improved (for example, when your cough or shortness of breath gets better) AND 3. At least 10 days have passed since your symptoms first appeared. How will I get my results? Test results are usually ready in 4 days. All results are called by an RN. If you have not receivedthe results after 4 days, contact the provider who ordered the testing or the COVID Call Center. documented in this encounter Plan of Treatment Upcoming Encounters Date Type Department Care Team (Late st Contact Info) Description 06/11/2024 12:45 EDT Office Visit [facility] Ophthalmology - [place] [address] [place] [address] Santiago Anthony MD 111 [facility] 5 [place] [address] 07/15/2024 10:45 EDT Office Visit [facility] Cardiology Clinic 130 [place] [address] Gianfranco Flowers MD [address] [address] documented as of this encounter Visit Diagnoses Diagnosis Sore throat- Primary Acute pharyngitis documented in this encounter Care Teams Shrub Planter Relationship Specialty Start Date End Date Nivia Tinsley MD [address] [place] [address] PCP - General Family Medicine - Primary Care 08/27/19 Zheng Tapia MD [address] [place] [address] Internal Medicine - Primary Care 09/01/19 Shazia Burks MD [address] [place] [address] Neurology 09/01/19 Tony Baron, FRANCK [address] [place] [address] Linux Consultant 09/01/19 Keira Paniagua MD 130 [facility] [address] [address] Cardiovascular Disease 09/06/20 Siva Perkins MD [address] [place] [address] Neurology 09/06/20 documented as of this encounter
--- OUTSIDE RECORDS SUMMARY | 2024-04-29 18:25 | XMS_ITS | Encounter Summary ---
Author Organization [facility] Address [address] [place] [address] Care Team Providers Care Merchandise Director Name Role Phone Nivia Tinsley MD Primary Care Provider [phone] Zheng Tapia MD Unavailable Shazia Burks MD Unavailable [phone] Tony Baron OD Unavailable [phone] Keira Paniagua MD Unavailable [phone] Siva Perkins MD Unavailable [phone] Reason for Visit * Reason Onset Date Comments Follow-up 09/14/2020 Encounter Details Date Type Department Care Team (Late st Contact Info) Description 09/14/2020 Telephone [facility] Integrative Family Medicine [address] [phone] Gladys Claudio, RN Follow-up Social History Tobacco Use Types [...] Telephone Encounter - Nivia Tinsley MD - 09/14/2020 1027 EST Great! * Telephone Encounter - Gladys Claudio RN - 09/14/2020 1005 EST Patient with body aches, cough, and i think she said tickly throat per FD and protocol she was sent back to her car. Attempted to call and answering machine picked up. I then went to the parking lot and spoke with patient and care manager; explained protocol and gave them the number to the [facility] And asked them to call and we would R/S wellness visit. documented in this encounter Plan of Treatment Upcoming Encounters Date Type Department Care Team (Late st Contact Info) Description 06/11/2024 12:45 EDT Office Visit [facility] Ophthalmology - [place] [address] [place], [place] [phone] Santiago Anthony MD [address] [place] [address], [facility] 5 [place] [address] 07/15/2024 10:45 EDT Office Visit [facility] Cardiology Clinic [address] [place], [place] [phone] Gianfranco Flowers MD 130 [facility] [address] [place] [address] documented as of this encounter Visit Diagnoses Not on filedocumented in this encounter Care Teams Merchandise Director Relationship Specialty Start Date End Date Nivia Tinsley MD [address] [place] [phone] PCP - General Family Medicine - Primary Care 08/27/19 Zheng Tapia MD [address] [place] [address] [address] [place] [address] Internal Medicine - Primary Care 09/01/19 Shazia Burks MD [address] [place] [address] Neurology 09/01/19 Tony Baron, FRANCK [address] [place] [phone] Lumber Yard Worker 09/01/19 Keira Paniagua MD [address] [place] [phone] Cardiovascular Disease 09/06/20 Siva Perkins MD 1200 [facility] [place] [address] Neurology 09/06/20 documented as of this encounter
--- OUTSIDE RECORDS SUMMARY | 2024-04-29 18:25 | XMS_ITS | Encounter Summary ---
Author Organization [facility] Address [address] [place] [address] Care Team Providers Care Agile Tester Name Role Phone Nivia Tinsley MD Primary Care Provider [phone] Zheng Tapia MD Unavailable Shazia Burks MD Unavailable [phone] Tony Baron OD Unavailable [phone] Keira Paniagua MD Unavailable [phone] Siva Perknis MD Unavailable Reason for Referral * Referral (Routine/Next Available) - Closed Specialty Diagnoses / Procedures Referred By Contac t Referred To Contact Diagnoses Cerebrovascular accident (CVA) due to occlusion of precerebral artery (HCC-CMS) Nivia Tinsley MD [address] [place] [address] Referral ID Status Reason Start Date Expiration Date V isits Requested Visits Authorized [id number] Closed Specialty Services Required 09/08/2020 1 1 Question Answer I certify that this patient is under my care and that I, or another Medicare allowed practitioner (DO KARLENE, FRANKIE) working with me, had a [id number] encounter with this patient on this date: 08/02/2020 I further certify that the [id number] encounter was in whole or in part related to the reason the patient needs home health care. Yes The discharge summary or progress note will provide further details that support the need for the home health services and the plan of care. Yes Enter the allowed practitioner (, DO, FRANKIE) who will provide oversight of this patient's home heatlh care needs and plan of care Nivia Tinsley MD The patient? s homebound status is related to the following diagnoses, illness or condition (describe): thalamic stroke The patient has a condition due to an illness or injury that restricts the ability to leave home except with: Other Please specify: high risk of falls. Leaving the home is medically contraindicated due to (reason 1): Risk of falls and/or history of falls require the assistance/supervision of another person Leaving home requires a considerable and taxing effort with mobility limited by the following (criteria 1): Other Please Specify: CVA Nursing skilled care requested: Physical Therapy, Social work Physical therapy is needed for: Evaluation, Safety, Gait/Mobility Assessment and Training Social Work Referral: Assess Bricklayer Apprentice Planning Needs Comments [facility] Reason for Visit * Reason Onset Date Comments Referral Request 09/08/2020 PT and OT Encounter Details Date Type Department Care Team (Late st Contact Info) Description 09/08/2020 Telephone [facility] Integr[facility] Family Medicine [place] [phone] Nivia Tinsley MD [address] [place] [address] Referral Request (PT and OT) Social History Tobacco Use Types Packs/Day Years [...] Telephone Encounter - Phil Vickers RN - 09/08/2020 1437 EST Referral placed. * Telephone Encounter - Melani Kidd - 09/08/2020 1424 EST Pt called to inquire about the home health PT and OT referral RC told her she would put in. I don'tsee one in the chart. She would like to start [place]. Please call after 3:00 today. She needs to takea quick nap. documented in this encounter Plan of Treatment Upcoming Encounters Date Type Department Care Team (Late st Contact Info) Description 06/11/2024 12:45 EDT Office Visit [facility] Ophthalmology - [place] [address] [place], [place] [address] Santiago Anthony MD 111 [facility] 5 [place] [address] 07/15/2024 10:45 EDT Office Visit [facility] Card[facility] Clinic [address] [place], [place] [address] Gianfranco Flowers MD 130 [facility] [address] [place] [address] Scheduled Referrals Name Type Priority Associated Diagnoses Orde r Schedule AMB CONS/FOLLOW UP HOME HEALTH SERVICES Outpatient Referral Routine Cerebrovascular accident (CVA) due to occlusion of precerebral artery (HCC-CMS) Ordered: 09/08/2020 documented as of this encounter Visit Diagnoses Diagnosis Cerebrovascular accident (CVA) due to occlusion of precerebral artery (HCC-CMS)- Primary documented in this encounter Care Teams Agile Tester Relationship Specialty Start Date End Date Nivia Tinsley MD [address] [place] [address] PCP - General Family Medicine - Primary Care 08/27/19 Zheng Tapia MD [address] [place] [address] [address] [place] [address] Internal Medicine - Primary Care 09/01/19 Shazia Burks MD [address] [place] [address] Neurology 09/01/19 Tony Baron OD [address] [place] [phone] Auto Appraiser 09/01/19 Keira Paniagua MD [address] [place] [address] Cardiovascular Disease 09/06/20 Siva Perkins MD [address] [place] [address] Neurology 09/06/20 documented as of this encounter
--- OUTSIDE RECORDS SUMMARY | 2024-04-29 18:25 | XMS_ITS | Encounter Summary ---
Author Organization [facility] Address [address] [place] [address] Care Team Providers Care Bathhouse Keeper Name Role Phone Nivia Tinsley MD Primary Care Provider [phone] Reagan Pickett MD Unavailable [phone] Zheng Tapia MD Unavailable Shazia Burks MD Unavailable [phone] Tony Baron OD Unavailable [phone] Reason for Visit * Reason Onset Date Comments Other 07/22/2020 concern about pt Encounter Details Date Type Department Care Team (Late st Contact Info) Description 07/22/2020 Telephone [facility] Integrative Family Medicine [facility] [address] [place] [address] Nivia Tinsley MD [address] [place] [address] Other (concern about pt) Social History Tobacco Use Types Packs/Day Years [...] Telephone Encounter - Phil Vickers RN - 07/22/2020 1043 EDT See other TE. * Telephone Encounter - Madelaine Chicas - 07/22/2020 0836 EDT Carmen Nurse at [facility] and pt was discharged on Sunday. Pt said she needs medicine pt states she has not gotten her meds. Carmen is asking for someone called pt. States pt sounds like she is in panic mode and is concerned about pt Carmen # [phone] documented in this encounter Plan of Treatment Upcoming Encounters Date Type Department Care Team (Late st Contact Info) Description 06/11/2024 12:45 EDT Office Visit [facility] Ophthalmology - [place] [address] [place] [address] Santiago Anthony MD [address] [place] [address] 5 [place] [address] 07/15/2024 10:45 EDT Office Visit [facility] [address] [place], [place] [address] Gianfranco Flowers MD 130 [facility] 2-1 [place] [phone] documented as of this encounter Visit Diagnoses Not on filedocumented in this encounter Care Teams Bathhouse Keeper Relationship Specialty Start Date End Date Nivia Tinsley MD [address] [place] [address] PCP - General Family Medicine - Primary Care 08/27/19 Reagan Pickett MD [address] [place] [address] Cardiovascular Disease 09/01/19 0 Zheng Tapia MD [address] [place] [address] [address] [place] [address] Internal Medicine - Primary Care 09/01/19 Shazia Burks MD [address] [place], [place] [address] Neurology 09/01/19 Tony Baron OD 7 [place] [address] Motor Vehicle Lecturer 09/01/19 documented as of this encounter
--- OUTSIDE RECORDS SUMMARY | 2024-04-29 18:25 | XMS_ITS | Encounter Summary ---
Author Organization [facility] Address [address] [place] [address] Care Team Providers Care Acoustical Tile Patternmaker Name Role Phone Nivia Tinsley MD Primary Care Provider Reagan Pickett MD Unavailable [phone] Zheng Tapia MD Unavailable Shazia Burks MD Unavailable Tony Baron OD Unavailable [phone] Keira Paniagua MD Unavailable Siva Perkins MD Unavailable [phone] Sheryl Schwab RN Unavailable Ladonna Candelario Unavailable Unavailable Encounter Details Date Type Department Care Team (Late st Contact Info) Description 07/18/2020 Lab Requisition [facility] Pathology & Laboratory Medicine - [facility] [address] [place] [address] Outr Resulting Lab, Provider Social History Tobacco [...] Info) Description 06/11/2024 12:45 EDT Office Visit [facility] Ophthalmology [address] [phone] Santiago Anthony MD [address] [place] [address], [facility] 5 [place] [address] 07/15/2024 10:45 EDT Office Visit [facility] Cardiology Clinic [address] [place] [address] Gianfranco Flowers MD [address] [place] [address] [place] [address] documented as of this encounter Procedures Procedure Name Priority Date/Time Associated Diagnosis Comments DO NOT ORDER STANDALONE - BROAD COVID TEST Today 07/17/2020 11:41 EDT COVID-19 TESTING Routine 07/17/2020 11:4 1 EDT documented in this encounter Results * DO NOT ORDER STANDALONE - BROAD COVID TEST (07/17/2020 11:41 EDT) COVID-19 rt-PCR Result NEGATIVE Negative 07/20/2020 8:19 EDT [facility] Comment: 2019-novel Coronavirus (2019-nCoV) not detected [...] in accordance with CLIA regulations, [employer] (CAP) guidelines (Dec 18, 2019), and FDA guidance (Nov 29, 2019). This test is only for use under the Food and Drug Administration's Emergency Use Authorization. Swab ENTIRE NASOPHARYNX / Unknown 07/17/2020 11:41 EDT 07/18/2020 16:09 EDT Provider Outr Resulting Lab MICROBIOLOGY - GENERAL ORDERABLES [facility] [place] * COVID-19 TESTING (07/17/2020 11:41 EDT) COVID-19 rt-PCR Result NEGATIVE Negative 07/20/2020 9:29 EDT [facility] Comment: 2019-novel Coronavirus (2019-nCoV) [...] in accordance with CLIA regulations, College of [employer] Pathologists (CAP) guidelines (Dec 18, 2019), and FDA guidance (Nov 29, 2019). This test is only for use under the Food and Drug Administration's Emergency Use Authorization. Performing Lab [facility] 07/20/2020 9:29 EDT [facility] Swab 07/17/2020 11:4 1 EDT 07/18/2020 16:09 EDT Provider Outr Resulting Lab MICROBIOLOGY - GENERAL ORDERABLES [facility] [address] [place] [address] [facility] [place] documented in this encounter Visit Diagnoses Not on filedocumented in this encounter Additional Health Concerns Infection Onset Date Last Indicated Resolved Time R/O COVID-19 Comment:Covid neg. 02/21/2022 02/21/2022 02/21/2022 10:07 EDT Rule-Out C. difficile 02/21/2022 02/21/20222021 14:01 EDT documented as of this encounter Care Teams Acoustical Tile Patternmaker Relationship Specialty Start Date End Date Nivia Tinsley MD [address] [place] [address] PCP - General Family Medicine - Primary Care 08/27/19 Reagan Pickett MD [address] [place] [address] Cardiovascular Disease 09/01/19 0 Zheng Tapia MD [address] [place] [address] [address] [place] [address] Internal Medicine - Primary Care 09/01/19 Shazia Burks MD [address] [place] [address] Neurology 09/01/19 Tony Baron, FRANCK [address] [place] [address] Lead Pony Rider 09/01/19 Keira Paniagua MD [address] [place] [address] [address] [place] [address] Cardiovascular Disease 09/06/20 Siva Perkins MD [address] [facility] [place] [address] Neurology 09/06/20 Sheryl Schwab, RN [address] [place] [address] Side Piece Coverer 01/23/24 01/23/24 Ladonna Candelario Side Piece Coverer 01/23/24 documented as of this encounter
--- OUTSIDE RECORDS SUMMARY | 2024-04-29 18:25 | XMS_ITS | Encounter Summary ---
Author Organization [facility] Address [address] [place] [address] Care Team Providers Care Loan Consultant Name Role Phone Nivia Tinsley MD Primary Care Provider [phone] Zheng Tapia MD Unavailable Shazia Burks MD Unavailable [phone] Tony Baron OD Unavailable [phone] Keira Paniagua MD Unavailable [phone] Siva Perkins MD Unavailable [phone] Encounter Details Date Type Department Care Team (Latest Contact Info) Description 09/14/2020 Travel Social History Tobacco Use Types Packs/Day [...] Description 06/11/2024 12:45 EDT Office Visit [facility] Ophthalmology - [place] [address] [place], [place] [address] Santiago Anthony MD [address] [place] [address] 5 [place] [address] 07/15/2024 10:45 EDT Office Visit [facility] Cardiology Clinic [address] [place] [address] Gianfranco Flowers MD 130 [facility] [address] [place] [address] documented as of this encounter Visit Diagnoses Not on filedocumented in this encounter Care Teams Loan Consultant Relationship Specialty Start Date End Date Nivia Tinsley MD [address] [place] [address] PCP - General Family Medicine - Primary Care 08/27/19 Zheng Tapia MD [address] [place] [address] [address] [place] [address] Internal Medicine - Primary Care 09/01/19 Shazia Burks MD [address] [place] [address] Neurology 09/01/19 Tony Baron, FRANCK [address] [place] [address] Poultry Cutter 09/01/19 Keira Paniagua MD [address] [place] [address] [address] [place] [address] Cardiovascular Disease 09/06/20 Siva Perkins MD [address] [place] [address] Neurology 09/06/20 documented as of this encounter
--- OUTSIDE RECORDS SUMMARY | 2024-04-29 18:25 | XMS_ITS | Encounter Summary ---
Author Organization [facility] Address [address] [place] [address] Care Team Providers Care Perfect Binder Setter Name Role Phone Nivia Tinsley MD Primary Care Provider Reagan Pickett MD Unavailable [phone] Zheng Tapia MD Unavailable Shazia Burks MD Unavailable [phone] Tony Baron OD Unavailable [phone] Encounter Details Date Type Department Care Team (Late st Contact Info) Description 08/02/2020 Results Only [facility] Integrative Family Medicine [facility] [address] [place] [address] Nivia Tinsley MD [address] [place] [address] Social History Tobacco Use Types Packs/Day Years [...] Description 06/11/2024 12:45 EDT Office Visit [facility] Ophthalmology - [place] [address] [place], [place] [phone] Santiago Anthony MD [address] [place] [address], [facility] 5 [place] [address] 07/15/2024 10:45 EDT Office Visit [facility] Cardiology Clinic [address] [place] [address] Gianfranco Flowers MD 130 [facility] [address] [place] [address] documented as of this encounter Procedures Procedure Name Priority Date/Time Associated Diagnosis Comments LDL CHOL DIRECT - [facility] Routine 08/02/2020 13:35 EST TSH Routine 08/02/2020 13:35 EST LIPID PROFILE (INCLUDES CHOLESTEROL, TRIGLYCERIDES, HDL, LDL) Routine 08/02/2020 13:35 EST BASIC METABOLIC PANEL (BMP) Routine 08/02/2020 13:35 EST documented in this encounter Results * TSH (08/02/2020 13:35 EST) Pathologist [facility] THYROID STIM HORMONE - [facility] 3.66 0.46 - 4.68 uIU/ml 08/02/2020 19:01 EST [facility] Comment: The results of this assay can be falsely lowered due to the consumption of Biotin. 08/02/2020 13:3 5 EST 08/02/2020 17:57 EST Nivia Tinsley MD CHEMISTRY & BLOOD G ORDERABLES Performing Organization Address City/State/[facility] Co de Phone Number [facility] [address] [place] [address] * (ABNORMAL) LIPID PROFILE (INCLUDES CHOLESTEROL, TRIGLYCERIDES, HDL, LDL) (08/02/2020 13:35 EST) [facility] Triglyceride 521 <150 mg/dL 08/02/2020 18:31 [facility] Comment: Adult: Normal: ?<150 mg/dl ? Borderline High: 150-199 mg/dl ? High: ?200-499 mg/dl ? Very High: >fj=772 Cholesterol 206(H) <200 mg/dL 08/02/2020 18:31 [facility] Comment: Acceptable: ??<200 Borderline: ??200-239 High: ?> or = 240 Chol/HDL Ratio 7.1(H) 0 - 4.5 08/02/2020 18:31 [facility] Comment: DESIRABLE RATIO IS LESS THAN 4.1 PATIENTS ARE CONSIDERED AT RISK: WOMEN RATIO >5 MEN RATIO >6 FASTING? - [facility] Yes 0 17:57 [facility] HDL 29(L) 40 - 60 mg/dL 08/02/2020 18:31 [facility] Comment: ?? Reference Range Low: ? < 40 ??mg/dL Normal: ??40-60 mg/dL High: ?>= 60 mg/dL LDL CHOLESTEROL - [facility] TNP 60 - 100 mg/dL 08/02/2020 18:31 [facility] Non HDL Cholesterol 177 mg/dl 08/02/2020 18:31 [facility] Comment: Desirable: ?Less than 130 Borderline High: ??130-159 High: ? 160-189 Very High: ?Greater than or equal to 190 08/02/2020 13:3 5 EST 08/02/2020 17:57 EST Nivia Tinsley MD CHEMISTRY & BLOOD G ORDERABLES Performing Organization Address City/State/[facility] Co de Phone Number [facility] [address] [place] [address] * LDL CHOL DIRECT - [facility] (08/02/2020 13:35 EST) LDL CHOLESTEROL DIRECT - [facility] 97 mg/dL 08/02/2020 18:52 EST [facility] Comment: The National Cholesterol Education Program Adult Treatment Panel III (NCEP-ATP III) provides the following classifications of LDL: Category ? mg/dl Optimal ?<100 ? Near Optimal ? 100-129 Borderline High ?130-159 High ? 160-189 Very High ?> or = 190 08/02/2020 13:3 5 EST 08/02/2020 17:57 EST Nivia Tinsley MD CHEMISTRY & BLOOD G ORDERABLES Performing Organization Address City/[facility]/ZIP Co de Phone Number [facility] [address] [place] [address] * (ABNORMAL) BASIC METABOLIC PANEL (BMP) (08/02/2020 13:35 EST) BUN - [facility] 21 10 - 26 mg/dL 08/02/2020 18:31 [facility] CALCIUM - [facility] 9.9 8.5 - 10.5 mg/dL 08/02/2020 18:31 [facility] Chloride 102 96 - 110 mmol/L 08/02/2020 18:31 [facility] CO2 Total 25 22 - 32 mEq/L 08/02/2020 18:31 [facility] CREATININE 0.77 0.52 - 1.04 mg/dL 08/02/2020 18:31 [facility] eGFR >60 08/02/2020 18:31 [facility] Comment: Chronic renal impairment is defined as GFR <60 Multiply result by 1.210 for patients. eGFR calculated using the IDMS-traceable MDRD Study Equation. ??(effective 08/03/2014) Anion Gap 8 0 - 18 08/02/2020 18:31 [facility] GLUCOSE - [facility] 106(H) 70 - 100 mg/dL 08/02/2020 18:31 [facility] Potassium 4.0 3.5 - 5.0 mEq/L 08/02/2020 18:31 [facility] Sodium 135(L) 136 - 145 mEq/L 08/02/2020 18:31 [facility] 08/02/2020 13:3 5 EST 08/02/2020 17:57 EST Nivia Tinsley MD CHEMISTRY & BLOOD G ORDERABLES Performing Organization Address City/[facility]/ZIP Co de Phone Number [facility] [address] [place] [address] documented in this encounter Visit Diagnoses Not on filedocumented in this encounter Care Teams Perfect Binder Setter Relationship Specialty Start Date End Date Nivia Tinsley MD [address] [place], [place] [address] PCP - General Family Medicine - Primary Care 08/27/19 Reagan Pickett MD [address] [place], [place] [address] Cardiovascular Disease 09/01/19 0 Zheng Tapia MD [address] [place] [address] [address] [place] [address] Internal Medicine - Primary Care 09/01/19 Shazia Burks MD [address] [place], [place] [address] Neurology 09/01/19 Tony Baron OD [address] [place] [phone] Fork Truck Driver 09/01/19 documented as of this encounter
--- OUTSIDE RECORDS SUMMARY | 2024-04-29 18:25 | XMS_ITS | Encounter Summary ---
Author Organization [facility] Address [address] [place] [address] Care Team Providers Care Hairspring Cutter Name Role Phone Nivia Tinsley MD Primary Care Provider Reagan Pickett MD Unavailable [phone] Zheng Tapia MD Unavailable Shazia Burks MD Unavailable [phone] Tony Baron OD Unavailable [phone] Reason for Visit * Reason Onset Date Comments Other 07/23/2020 Encounter Details Date Type Department Care Team (Late st Contact Info) Description 07/23/[address] [facility] Integrative Family Medicine [facility] [address] [place] [address] Nivia Tinsley MD [address] [place], [place] [phone] Other Social History Tobacco Use Types Packs/Day [...] Telephone Encounter - Phil Vickers RN - 07/23/2020 1341 EDT MOT will bring her pill packs today per earlier encounter. Patient was notified. HW updated. * Telephone Encounter - Madelaine Chicas - 07/23/2020 1108 EDT Carmen is calling stating pt called them again today asking about her meds and that they dischargedher and she keeps calling them, and wanted to give us another FYI about pt. documented in this encounter Plan of Treatment Upcoming Encounters Date Type Department Care Team (Late st Contact Info) Description 06/11/2024 12:45 EDT Office Visit [facility] Ophthalmology - [place] [address] [place], [place] [address] Santiago Anthony MD 111 [facility], [facility] 5 [place] [address] 07/15/2024 10:45 EDT Office Visit [facility] [address] [place], [place] [address] Gianfranco Flowers MD 130 [facility]- [address] [place] [phone] documented as of this encounter Visit Diagnoses Not on filedocumented in this encounter Care Teams Hairspring Cutter Relationship Specialty Start Date End Date Nivia Tinsley MD [address] [place] [address] PCP - General Family Medicine - Primary Care 08/27/19 Reagan Pickett MD [address] [place] [address] Cardiovascular Disease 09/01/19 0 Zheng Tapia MD [address] [place] [address] [address] [place] [address] Internal Medicine - Primary Care 09/01/19 Shazia Burks MD [address] [place], [place] [address] Neurology 09/01/19 Tony Baron, FRANCK [address] [place] [phone] Blast Furnace Keeper Helper 09/01/19 documented as of this encounter
--- OUTSIDE RECORDS SUMMARY | 2024-04-29 18:25 | XMS_ITS | Encounter Summary ---
Author Organization [facility] Address [address] [place] [address] Care Team Providers Care Clarifier Name Role Phone Nivia Tinsley MD Primary Care Provider Reagan Pickett MD Unavailable [phone] Zheng Tapia MD Unavailable Shazia Burks MD Unavailable [phone] Tony Baron OD Unavailable [phone] Reason for Visit * Reason Onset Date Comments Patient Information Update 07/23/2020 Encounter Details Date Type Department Care Team (Late st Contact Info) Description 07/23/2020 Telephone [facility] Integrative Family Medicine [facility] [address] [place] [address] Nivia Tinsley MD [address] [place] [address] Patient Information Update Social History [...] Telephone Encounter - Nivia Tinsley MD - 07/26/2020 1407 EDT All set. * Telephone Encounter - Emily Rousseau - 07/26/2020 1254 EDT It looks like that encounter was addressed by van. Is it still in your box? * Telephone Encounter - Nivia Tinsley MD - 07/23/2020 0912 EDT Madelaine created an office encounter yesterday at 8:30 am for this patient, and now it is in my [employer] folders. I was not in the office yesterday, so I did not see her, so I am not able to sign it and bill for it. I am not sure how to get rid of it. Can she delete it?? documented in this encounter Plan of Treatment Upcoming Encounters Date Type Department Care Team (Late st Contact Info) Description 06/11/2024 12:45 EDT Office Visit [facility] Ophthalmology - [place] [address] [place], [place] [address] Santiago Anthony MD [address] [place] [address] 5 [place] [phone] 07/15/2024 10:45 EDT Office Visit [facility] Cardiology Clinic [address] [place], [place] [address] Gianfranco Flowers MD 130 [facility]- [address] [place] [address] documented as of this encounter Visit Diagnoses Not on filedocumented in this encounter Care Teams Clarifier Relationship Specialty Start Date End Date Nivia Tinsley MD [address] [place], [place] [address] PCP - General Family Medicine - Primary Care 08/27/19 Reagan Pickett MD [address] [place] [address] Cardiovascular Disease 09/01/19 0 Zheng Tapia MD [address] [place] [address] [address] [place] [address] Internal Medicine - Primary Care 09/01/19 Shazia Burks MD [address] [place] [address] Neurology 09/01/19 Tony Baron OD [address] [place] [phone] Whip Sawyer 09/01/19 documented as of this encounter
--- OUTSIDE RECORDS SUMMARY | 2024-04-29 18:26 | XMS_ITS | Encounter Summary ---
Author Organization [facility] Address [address] [place] [address] Care Team Providers Care Special Event Assistant Name Role Phone Nivia Tinsley MD Primary Care Provider [phone] Reagan Pickett MD Unavailable Zheng Tapia MD Unavailable Shazia Burks MD Unavailable [phone] Tony Baron OD Unavailable [phone] Reason for Visit * Reason Onset Date Comments Results 04/19/2020 Encounter Details Date Type Department Care Team (Late st Contact Info) Description 04/19/[address] [facility] Integrative Family Medicine [address] [address] Nivia Tinsley MD [address] [place], [place] [phone] Results Social History Tobacco Use Types Packs/Day [...] Living Expenses Not hard at all 09/09/2019 Hunger Vital Sign Answer Date Recorded Worried About Running Out of Food in the Last Ye ar Never true 09/09/2019 Ran Out of Food in the Last Year Never true 09/09/2019 PRAPARE - Transportation Answer Date Re corded Lack of Transportation (Medical) No 09/09/2019 Lack of Transportation (Non-Medical) No 09/09/2019 Education Answer Date Recorded What is the [...] Telephone Encounter - Nivia Tinsley MD - 04/23/2020 1105 EDT Great! * Telephone Encounter - Aracelis Garcia - 04/23/2020 1048 EDT They will be faxing this over to us today. * Telephone Encounter - Nivia Tinsley MD - 04/19/2020 1423 EDT Can we get her Zio report. She had it done while she was at [facility]. documented in this encounter Plan of Treatment Upcoming Encounters Date Type Department Care Team (Late st Contact Info) Description 06/11/2024 12:45 EDT Office Visit [facility] Ophthalmology - [place] [address] [place], [place] [address] Santiago Anthony MD 111 [facility], [facility] 5 [place] [address] 07/15/2024 10:[address] [facility] Cardiology Clinic [address] [place], [place] [address] Gianfranco Flowers MD 130 [facility]- [address] [place] [address] documented as of this encounter Visit Diagnoses Not on filedocumented in this encounter Care Teams Special Event Assistant Relationship Specialty Start Date End Date Nivia Tinsley MD [address] [place], [place] [address] PCP - General Family Medicine - Primary Care 08/27/19 Reagan Pickett MD [address] [place] [address] Cardiovascular Disease 09/01/19 0 Zheng Tapia MD [address] [place] [address] [address] [place] [address] Internal Medicine - Primary Care 09/01/19 Shazia Burks MD [address] [place], [place] [address] Neurology 09/01/19 Tony Baron OD [address] [place] [address] Psychology Clinician 09/01/19 documented as of this encounter
--- OUTSIDE RECORDS SUMMARY | 2024-04-29 18:26 | XMS_ITS | Encounter Summary ---
Author Organization [facility] Address [address] [place] [address] Care Team Providers Care Social Media Designer Name Role Phone Nivai Tinsley MD Primary Care Provider [phone] Reagan Pickett MD Unavailable [phone] Zheng Tapia MD Unavailable Shazia Burks MD Unavailable [phone] Tony Baron OD Unavailable [phone] Reason for Visit * Reason Onset Date Comments Occupational Therapy 05/28/2020 Encounter Details Date Type Department Care Team (Late st Contact Info) Description 05/28/2020 Telephone [facility] Integrative Family Medicine [facility] [address] [place] [address] Yael Patel, NICKO [address], [place] [phone] Occupational Therapy Social History Tobacco Use Types Packs/Day Years [...] Telephone Encounter - Stephanie Sheridan RN - 05/28/2020 1022 EDT Verbal ok left on Caty's vm * Telephone Encounter - Yael Patel APRN - 05/28/2020 0929 EDT Occupational therapy called requesting to continue OT services 1x/week x 4 weeks to prepare for transition to [facility]. Needs verbal approval. OT - Caty [phone] Yael Patel APRN documented in this encounter Plan of Treatment Upcoming Encounters Date Type Department Care Team (Late st Contact Info) Description 06/11/2024 12:45 EDT Office Visit [facility] Ophthalmology - [place] [address] [place] [address] Santiago Anthony MD [address] [place] [address], [facility] 5 [place] [address] 07/15/2024 10:[address] [facility] [place] [facility] [address] [place], [place] [address] Gianfranco Flowers MD 130 [facility] [address] [place] [phone] documented as of this encounter Visit Diagnoses Not on filedocumented in this encounter Care Teams Social Media Designer Relationship Specialty Start Date End Date Nivia Tinsley MD [address] [place] [address] PCP - General Family Medicine - Primary Care 08/27/19 Reagan Pickett MD [address] [place] [address] Cardiovascular Disease 09/01/19 0 Zheng Tapia MD [address] [place] [address] [address] [place] [address] Internal Medicine - Primary Care 09/01/19 Shazia Burks MD [address] [place], [place] [address] Neurology 09/01/19 Tony Baron, FRANCK [address] [place] [phone] Outbound Telemarketing Representative 09/01/19 documented as of this encounter
--- OUTSIDE RECORDS SUMMARY | 2024-04-29 18:26 | XMS_ITS | Encounter Summary ---
Author Organization [facility] Address [address] [place] [address] Care Team Providers Care Rehabilitation Tech Name Role Phone Nivia Tinsley MD Primary Care Provider [phone] Reagan Pickett MD Unavailable [phone] Zheng Tapia MD Unavailable Shazia Burks MD Unavailable [phone] Tony Baron OD Unavailable [phone] Reason for Visit * Reason Onset Date Comments Update 04/16/2020 Encounter Details Date Type Department Care Team (Late st Contact Info) Description 04/16/2020 Telephone [facility] Integrative Family Medicine [address] [address] Nivia Tinsley MD [address] [place] [address] Update Social History Tobacco Use Types Packs/Day [...] Telephone Encounter - Stephanie Sheridan RN - 04/16/2020 1400 EDT Verbal ok given for below orders. Message left on Caty's * Telephone Encounter - Sarah Booth - 04/16/2020 1053 EDT Caty (occupational therapist) m requesting verbal confirmation for: 1. Continuation of DENTAL CREAM MAKER services 2x/wk for 2wks for showering 2. Continuation of occupational services 2x/wk for 2wks, keeping the same plan of care until moved to [facility]. documented in this encounter Plan of Treatment Upcoming Encounters Date Type Department Care Team (Late st Contact Info) Description 06/11/2024 12:45 EDT Office Visit [facility]mology - [place] [facility] [place] [phone] Santiago Anthony MD 111 [facility], [facility] 5 [place] [address] 07/15/2024 10:45 EDT Office Visit [facility] Cardiology Clinic 130 [place] [address] Gianfranco Flowers MD 130 [facility] [address] [place] [address] documented as of this encounter Visit Diagnoses Not on filedocumented in this encounter Care Teams Rehabilitation Tech Relationship Specialty Start Date End Date Nivia Tinsley MD [address] [place], [place] [phone] PCP - General Family Medicine - Primary Care 08/27/19 Reagan Pickett MD [address] [place], [place] [phone] Cardiovascular Disease 09/01/19 0 Zheng Tapia MD [address] [place] [address] [address] [place] [address] Internal Medicine - Primary Care 09/01/19 Shazia Burks MD [address] [place], [place] [address] Neurology 09/01/19 Tony Baron OD [address] [place] [address] Bulwark Carpenter 09/01/19 documented as of this encounter
--- OUTSIDE RECORDS SUMMARY | 2024-04-29 18:26 | XMS_ITS | Encounter Summary ---
Author Organization [facility] Address [address] [place] [address] Care Team Providers Care Real Estate Legal Secretary Name Role Phone Nivia Tinsley MD Primary Care Provider Reagan Pickett MD Unavailable [phone] Zheng Tapia MD Unavailable Shazia Burks MD Unavailable [phone] Tony Baron OD Unavailable [phone] Reason for Visit * Reason Onset Date Comments Update 07/15/2020 Encounter Details Date Type Department Care Team (Late st Contact Info) Description 07/15/2020 Telephone [facility] Integrative Family Medicine [address] [address] Nivia Tinsley MD [address] [place], [place] [phone] Update Social History Tobacco Use Types Packs/Day [...] Encounter - Phil Vickers RN - 07/23/2020 1105 EDT I spoke with MOT this AM and they will be sending her pill packs to her today. The patient was notified of this. The patient remarks that living at home has been hard, but she is managing and has lots of help. * Telephone Encounter - Phil Vickers RN - 07/22/2020 0850 EDT Note if from Odalis Bullard stating that the patient did not have her medications at home. This was not mentioned at our previous call below. I have LVM for MOT to do a status check, and LVM for patient to contact the office. * Telephone Encounter - Phil Vickers RN - 07/20/2020 1518 EDT Discharge from: [facility] Discharge to: Home Date of Admission: Date of Discharge: Reason for Admission: CVA Symptoms Improving? yes Discharge instructions available? no Medication/ Therapy changes? Medication reconciliation complete? Home care needs? Yes Folow-up (TCM) appointment scheduled? Scheduled Education/ plan: Patent will Patient will contact the office and review her medication list once she finds it. Patient shares her worries of leaving , but states I just have to give it a try, I just hope I don't have to go back there. Patient informed that our office will assist her in any way that we can. * Telephone Encounter - Nivia Tinsley MD - 07/16/2020 1115 EDT I hope so! Yung, can we schedule a Zoom visit for a TCM from ?? * Telephone Encounter - Nivia Tinsley MD - 07/16/2020 0944 EDT Great! Does she need Meals on Wheels?? * Telephone Encounter - Terri Byrd - 07/16/2020 0925 EDT I spoke with Ewa at [facility] [phone]. Lexi will be leaving on 07/19/20. She will have 4 hrs service 9am-1:00pm 7 days/week for 2 weeks from [facility]. Lexi agreed to set this up after much discussion and encouragement. nursing and therapy has also been ordered though unclear whether Lexi will accept this service. Lexi is concerned about finances and also feels she doesn't need the services. Lexi's daughter Melani will help her move. Melani doesn't think it's a good idea for Lexi to return home but feels her mom is competent to make her own decisions. Ewa explained that Lexi's reasoning isn't really there in terms of affect stroke has had on her. Lexi feels she will be able to be more independent by being at home vs at where people are doingeverything for her. Lexi did state she realizes she may need to come back to but wants to attempt to be at home. Ewa has told Lexi that she can always come back to . Meds on Time has been set up and Lexi will go home with meds. However, she doesn't see well and needs help making sure she takes meds and takes them appropriately. This is why having services at home is so important. I asked whether any assistive devices would help with vision in terms of medication management. Lexi is working with [facility], so she has resources available to her if desired. * Telephone Encounter - Nivia Tinsley MD - 07/15/2020 1423 EDT Sounds good. Let me now what you find out!! * Telephone Encounter - Terri Byrd - 07/15/2020 1336 EDT I called and left a message for Ewa at [facility] for more information. I don't know this patient so hard to say, though it's of course her right to refuse treatment or placement. I wonder if she's willing to accept any level of service/care and what that might be. * Telephone Encounter - Nivia Tinsley MD - 07/15/2020 1233 EDT Terri: Any thoughts?? * Telephone Encounter - Sarah Booth - 07/15/2020 1124 EDT Sherly from [facility] called to give an update on pt. She states pt has been discharged from [facility]. Pt was originally supposed have 4hrs a day of paid care giving for her return home but declined this. Ewa Jaimes at [facility] is the person to contact to discuss further. Her number is [phone]. documented in this encounter Plan of Treatment Upcoming Encounters Date Type Department Care Team (Late st Contact Info) Description 06/11/2024 12:45 EDT Office Visit [facility] Ophthalmology - [address] [phone] Santiago Anthony MD [address] [place] [address] 5 [place] [address] 07/15/2024 10:45 EDT Office Visit [facility] [address] [place], [place] [address] Gianfranco Flowers MD 130 [facility] [address] [place] [address] documented as of this encounter Visit Diagnoses Not on filedocumented in this encounter Care Teams Real Estate Legal Secretary Relationship Specialty Start Date End Date Nivia Tinsley MD [address] [place] [phone] PCP - General Family Medicine - Primary Care 08/27/19 Reagan Pickett MD [address] [place], [place] [phone] Cardiovascular Disease 09/01/19 0 Zheng Tapia MD [address] [place] [address] [address] [place] [address] Internal Medicine - Primary Care 09/01/19 Shazia Burks MD [address] [place] [address] Neurology 09/01/19 Tony Baron OD [address] [place] [phone] Instant Potato Processing Supervisor 09/01/19 documented as of this encounter
--- OUTSIDE RECORDS SUMMARY | 2024-04-29 18:26 | XMS_ITS | Encounter Summary ---
Author Organization [facility] Address [address] [place] [address] Care Team Providers Care Lace And Textiles Restorer Name Role Phone Nivia Tinsley MD Primary Care Provider Reagan Pickett MD Unavailable Zheng Tapia MD Unavailable Shazia Burks MD Unavailable Tony Baron OD Unavailable Keira Paniagua MD Unavailable Siva [place] MD Unavailable [phone] Sheryl Schwab RN Unavailable Ladonna Candelario Unavailable Unavailable Encounter Details Date Type Department Care Team (Late st Contact Info) Description 05/04/2020 Lab Requisition [facility] Pathology & Laboratory Medicine - [facility] [address] [place] [address] Nivia Tinsley MD [address] [place] [phone] Encounter for screening for other viral diseases Social History Tobacco Use Types Packs/Day Years [...] EDT Office Visit [facility] Ophthalmology [facility] [address] [place] [address] Santiago Anthony MD [address] [place] [address], [facility] 5 [place] [address] 07/15/2024 10:45 EDT Office Visit [facility] Cardiology Clinic [address] [place], [place] [phone] Gianfranco Flowers MD 130 [facility] [address] [place] [phone] documented as of this encounter Visit Diagnoses Diagnosis Encounter for screening for other viral diseases documented in this encounter Additional Health Concerns Infection Onset Date Last Indicated Resolved Time R/O COVID-19 Comment:Covid neg. 02/21/2022 02/21/2022 02/21/2022 10:07 EDT Rule-Out C. difficile 02/21/2022 02/21/20222021 14:01 EDT documented as of this encounter Care Teams Lace And Textiles Restorer Relationship Specialty Start Date End Date Nivia Tinsley MD [address] [place] [address] PCP - General Family Medicine - Primary Care 08/27/19 Reagan Pickett MD [address] [place] [address] Cardiovascular Disease 09/01/19 0 Zheng Tapia MD [address] [place] [address] [address] [place] [address] Internal Medicine - Primary Care 09/01/19 Shazia Burks MD [address] [place], [place] [address] Neurology 09/01/19 Tony Baron, FRANCK [address] [place] [phone] Allergy And Immunology Specialist 09/01/19 Keira Paniagua MD 130 [facility] [place] [phone] Cardiovascular Disease 09/06/20 Siva [place] MD [address] [facility] [place] [address] Neurology 09/06/20 Sheryl Schwab, ANA [address] [place] [address] Pearl Stringer 01/23/24 01/23/24 Ladonna Candelario Pearl Stringer 01/23/24 documented as of this encounter
--- OUTSIDE RECORDS SUMMARY | 2024-04-29 18:26 | XMS_ITS | Encounter Summary ---
Author Organization [facility] Address [address] [place] [address] Care Team Providers Care Occupational Medicine Officer Name Role Phone Nivia Tinsley MD Primary Care Provider Reagan Pickett MD Unavailable [phone] Zheng Tapia MD Unavailable Shazia Burks MD Unavailable [phone] Tony Baron OD Unavailable [phone] Reason for Visit * Reason Onset Date Comments Home Health 04/30/2020 Encounter Details Date Type Department Care Team (Late st Contact Info) Description 04/30/2020 Telephone [facility] Medicine [facility] [address] [place] [address] Nivia Tinsley MD [address] [place] [address] Home Health Social History Tobacco Use [...] Telephone Encounter - Nivia Tinsley MD - 04/30/2020 1617 EDT Ok, thanks, do they need anything else?? * Telephone Encounter - Aracelis Garcia - 04/30/2020 1559 EDT Caty at [facility] calling to report patient's fall today. Patient has new [facility] set up at her home today and she will be quarantined for 16 days at [facility]. * Telephone Encounter - Cecily Cartagena - 04/30/2020 5553 EDT Sherly from [facility] called. Patient fell out of her wheelchair today. [facility] physical therapy and occupational therapy will continue when patient moves to [facility] on Sunday. documented in this encounter Plan of Treatment Upcoming Encounters Date Type Department Care Team (Late st Contact Info) Description 06/11/2024 12:45 EDT Office Visit [facility] Ophthalmology - [place] [address] [place], [place] [phone] Santiago Anthony MD [address] [place] [address], [facility] 5 [place] [address] 07/15/2024 10:45 EDT Office Visit [facility] Cardiology Clinic [address] [place] [address] Gianfranco Flowers MD 130 [facility] [address] [place] [address] documented as of this encounter Visit Diagnoses Not on filedocumented in this encounter Care Teams Occupational Medicine Officer Relationship Specialty Start Date End Date Nivia Tinsley MD [address] [place], [place] [address] PCP - General Family Medicine - Primary Care 08/27/19 Reagan Pickett MD [address] [place], [place] [address] Cardiovascular Disease 09/01/19 0 Zheng Tapia MD [address] [place] [address] [address] [place] [phone] Internal Medicine - Primary Care 09/01/19 Shazia Burks MD [address] [place], [place] [address] Neurology 09/01/19 Tony Baron OD [address] [place] [phone] Sand Shoveler 09/01/19 documented as of this encounter
--- OUTSIDE RECORDS SUMMARY | 2024-04-29 18:26 | XMS_ITS | Encounter Summary ---
Author Organization [facility] Address [address] [place] [address] Care Team Providers Care Metallurgical Analyst Name Role Phone Nivia Tinsley MD Primary Care Provider Reagan Pickett MD Unavailable Zheng Tapia MD Unavailable Shazia Burks MD Unavailable [phone] Tony Baron OD Unavailable [phone] Encounter Details Date Type Department Care Team (Late st Contact Info) Description 07/17/2020 Results Only [facility] Integrative Family Medicine [facility] [address] [place] [address] Nivia Tinsley MD [address] [place], [place] [phone] Social History Tobacco Use Types Packs/Day Years [...] Info) Description 06/11/2024 12:45 EDT Office Visit [facility] Ophthalmology - [place] [address] [place], [place] [phone] Santiago Anthony MD [address] [place] [address], [facility] 5 [place] [address] 07/15/2024 10:45 EDT Office Visit [facility] Cardiology Clinic [address] [place] [address] Gianfranco Flowers MD 130 [facility] [address] [place] [address] documented as of this encounter Procedures Procedure Name Priority Date/Time Associated Diagnosis Comments COVID-19 TESTING Routine 07/17/2020 11:4 1 EDT documented in this encounter Results * COVID-19 TESTING (07/17/2020 11:41 EDT) Performing Lab [place] [facility] 07/20/2020 14:15 EDT [facility] Comment: Please indicate the Triage TierT2 Test performed [place] [address] COVID-19 rt-PCR Result Not Detected Negative 07/20/2020 14:15 EDT [facility] Comment: 2019-novel Coronavirus (2019-nCoV) not [...] in accordance with CLIA regulations, College [employer] (CAP) guidelines (Dec 18, 2019), and FDA guidance (Nov 29, 2019). This test is only for use under the Food and Drug Administration's Emergency Use Authorization. 07/17/2020 11:4 1 EDT 07/18/2020 11:41 EDT Nivia Tinsley MD MICROBIOLOGY - GENE RAL ORDERABLES [facility] [address] [place] [address] documented in this encounter Visit Diagnoses Not on filedocumented in this encounter Care Teams Metallurgical Analyst Relationship Specialty Start Date End Date Nivia Tinsley MD [address] [place] [address] PCP - General Family Medicine - Primary Care 08/27/19 Reagan Pickett MD [address] [place] [address] Cardiovascular Disease 09/01/19 0 Zheng Tapia MD [address] [place] [address] [address] [place] [phone] Internal Medicine - Primary Care 09/01/19 Shazia Burks MD [address] [place] [address] [place] [address] Neurology 09/01/19 Tony Baron OD [address] [place] [phone] Content Strategist 09/01/19 documented as of this encounter
--- OUTSIDE RECORDS SUMMARY | 2024-04-29 18:26 | XMS_ITS | Encounter Summary ---
Author Organization [facility] Address [address] [place] [address] Care Team Providers Care Food Inspector Name Role Phone Nivia Tinsley MD Primary Care Provider Reagan Pickett MD Unavailable [phone] Zheng Tapia MD Unavailable Shazia Burks MD Unavailable [phone] Tony Baron OD Unavailable [phone] Reason for Visit * Reason Onset Date Comments Urinary Frequency 07/01/2020 Encounter Details Date Type Department Care Team (Late st Contact Info) Description 07/01/2020 Telephone [facility] [place] [facility] [address] [place] [address] Nivia Tinsley MD [address] [place] [address] Urinary Frequency Social History Tobacco Use Types Packs/Day Years [...] Telephone Encounter - Phil Vickers RN - 07/01/2020 1610 EDT I spoke with the nurse at [facility] regarding the patient's increased urinary frequency. I gave order for UA culture if positive. Nursing staff verbalizes understanding of order. Once we receive results we can advise on treatment if needed. Nursing reports no significant change in mental status, complaint of pain, or other notable symptoms that would require sooner intervention. * Telephone Encounter - Sarah Booth - 07/01/2020 1605 EDT Jeff from [facility] wanted RC to be made aware of pt's urinary frequency constantly disturbing her during the night. He is asking for a Rx to be written. Please advise. documented in this encounter Plan of Treatment Upcoming Encounters Date Type Department Care Team (Late st Contact Info) Description 06/11/2024 12:45 EDT Office Visit [facility] Ophthalmology - [place] [address] [place], [place] [phone] Santiago Anthony MD 111 [facility], [facility] 5 [place] [address] 07/15/2024 10:45 EDT Office Visit [facility] Cardiology Clinic [address] [place], [place] [phone] Gianfranco Flowers MD 130 [facility] [address] [place] [address] documented as of this encounter Visit Diagnoses Not on filedocumented in this encounter Care Teams Food Inspector Relationship Specialty Start Date End Date Nivia Tinsley MD [address] [place], [place] [address] PCP - General Family Medicine - Primary Care 08/27/19 Reagan Pickett MD [address] [place], [place] [address] Cardiovascular Disease 09/01/19 0 Zheng Tapia MD [address] [place] [address] [address] [place] [address] Internal Medicine - Primary Care 09/01/19 Shazia Burks MD [address] [place] [address] Neurology 09/01/19 Tony Baron OD [address] [place] [phone] Six Sigma Black Belt Engineer 09/01/19 documented as of this encounter
--- OUTSIDE RECORDS SUMMARY | 2024-04-29 18:26 | XMS_ITS | Encounter Summary ---
Author Organization [facility] Address [address] [place] [address] Care Team Providers Care Dredge Pumper Name Role Phone Nivia Tinsley MD Primary Care Provider Reagan Pickett MD Unavailable [phone] Zheng Tapia MD Unavailable Shazia Burks MD Unavailable [phone] Tony Baron OD Unavailable [phone] Reason for Visit * Reason Onset Date Comments Update 06/22/2020 Encounter Details Date Type Department Care Team (Late st Contact Info) Description 06/22/2020 Telephone [facility] Integrative Family Medicine [address] [address] Nivia Tinsley MD [address] [place] [address] Update Social History Tobacco Use [...] Telephone Encounter - Nivia Tinsley MD - 06/22/2020 1356 EDT Great!! * Telephone Encounter - Stephanie Shreidan RN - 06/22/2020 1337 EDT I spoke with Jeff, a nurse at . Pt is able to ambulate. I advised to continue to monitor and call back if pt c/o increased pain or new or worsening symptoms develop. * Telephone Encounter - Nivia Tinsley MD - 06/22/2020 1321 EDT Is she able to walk or bear weight on it? If not, Ok to get x-ray of the foot. * Telephone Encounter - Sarah Booth - 06/22/2020 1257 EDT Carmen from [facility] wanting RC to be made aware of pt's most recent fall. It had happened during the am on 06/21. She stated there are no injuries. She also wanted to RC to know that pt ran over her own foot w/ her wheelchair. The foot has a black and blue bruise on it. Please advise. documented in this encounter Plan of Treatment Upcoming Encounters Date Type Department Care Team (Late st Contact Info) Description 06/11/2024 12:45 EDT Office Visit [facility] Ophthalmology - [address] 124781 Santiago Anthony MD [address] [place] [address], [facility] 5 [place] [address] 07/15/2024 10:45 EDT Office Visit [facility] [address] [place], [place] [phone] Gianfranco Flowers MD 130 [facility] [address] [place] [address] documented as of this encounter Visit Diagnoses Not on filedocumented in this encounter Care Teams Dredge Pumper Relationship Specialty Start Date End Date Nivia Tinsley MD [address] [place] [phone] PCP - General Family Medicine - Primary Care 08/27/19 Reagan Pickett MD [address] [place] [address] [phone] Cardiovascular Disease 09/01/19 0 Zheng Tapia MD [address] [place] [address] 7 [place] [phone] Internal Medicine - Primary Care 09/01/19 Shazia Burks MD [address] [place] [address] Neurology 09/01/19 Tony Baron OD [address] [place] [phone] Fish Cutter 09/01/19 documented as of this encounter
--- OUTSIDE RECORDS SUMMARY | 2024-04-29 18:26 | XMS_ITS | Encounter Summary ---
Author Organization [facility] Address [address] [place] [address] Care Team Providers Care Sales Representative Leather Goods Name Role Phone Nivia Tinsley MD Primary Care Provider [phone] Reagan Pickett MD Unavailable [phone] Zheng Tapia MD Unavailable Shazia Burks MD Unavailable [phone] Tony Baron OD Unavailable [phone] Reason for Visit * Reason Onset Date Comments Medications Refill 06/23/2020 Encounter Details Date Type Department Care Team (Late st Contact Info) Description 06/23/2020 Refill [facility] Integrative Family Medicine [address] [address] Sherly Kimbrough, ANA Medications Refill Social History Tobacco Use [...] Dispensed Refills Start Date End Da te atenoloL (TENORMIN) 25 mg tablet Take 1 Tab by mouth daily. 90 Tab 3 06/23/2020 07/12/2020 atorvastatin (LIPITOR) 20 mg tabletIndications:Mixed hyperlipidemia 1 tab(s) orally once a day 90 Tab 3 06/23/2020 07/12/2020 losartan (COZAAR) 100 mg tabletIndications:Essential hypertension 1 tab(s) orally once a day 90 Tab 3 06/23/2020 07/12/2020 documented in this encounter Miscellaneous Notes * Telephone Encounter - Sherly Kimbrough, RN - 06/23/2020 0851 EDT Refill atenolol, atorvastatin, losartan ZURI - 04/19/20 NOV - none last BMP - 5/12/20 last lipids - 01/15/19 Rx(s) escribed to pharmacy. SHERLY KIMBROUGH, RN documented in this encounter Plan of Treatment Upcoming Encounters Date Type Department Care Team (Late st Contact Info) Description 06/11/2024 12:45 EDT Office Visit [facility] Ophthalmology - [place] [address] [place], [place] [address] Santiago Anthony MD [address] [place] [address] 5 [place] [address] 07/15/2024 10:45 EDT Office Visit [facility] Cardiology Clinic [address] [place], [place] [phone] Gianfranco Flowers MD 130 [facility] [address] [place] [address] documented as of this encounter Visit Diagnoses Diagnosis Essential hypertension Unspecified essential hypertension Mixed hyperlipidemia documented in this encounter Discontinued Medications Medication Sig Discontinue Reason Start Date End Da te losartan (COZAAR) 100 mg tabletIndications:Essentia l hypertension 1 tab(s) orally once a day Reorder 03/29/2020 06/23/2020 atorvastatin (LIPITOR) 20 mg tabletIndications:Mixed hyperlipidemia 1 tab(s) orally once a day Reorder 03/29/2020 06/23/2020 atenoloL (TENORMIN) 25 mg tablet Take 1 Tab by mouth daily. Reorder 03/29/2020 06/23/2020 documented as of this encounter Care Teams Sales Representative Leather Goods Relationship Specialty Start Date End Date Nivia Tinsley MD [address] [place], [place] [phone] PCP - General Family Medicine - Primary Care 08/27/19 Reagan Pickett MD [address] [place], [place] [phone] Cardiovascular Disease 09/01/19 0 Zheng Tapia MD [address] [place] [address] [address] [place] [address] Internal Medicine - Primary Care 09/01/19 Shazia Burks MD [address] [place] [address] Neurology 09/01/19 Tony Baron OD [address] [place] [phone] Biopharmaceutical Rep 09/01/19 documented as of this encounter
--- OUTSIDE RECORDS SUMMARY | 2024-04-29 18:26 | XMS_ITS | Encounter Summary ---
Author Organization [facility] Address [address] [place] [address] Care Team Providers Care Family Service Aide Name Role Phone Nivia Tinsley MD Primary Care Provider [phone] Reagan Pickett MD Unavailable [phone] Zheng Tapia MD Unavailable Shazia Burks MD Unavailable [phone] Tony Baron OD Unavailable [phone] Reason for Visit * Reason Onset Date Comments Medications Refill 07/08/2020 Encounter Details Date Type Department Care Team (Late st Contact Info) Description 07/08/2020 Refill [facility] Integrative Family Medicine [address] [address] Sherly Kimbrough, ANA Medications Refill [...] End Da te levothyroxine (SYNTHROID) 100 mcg tablet Take 1 Tab by mouth daily. 90 Tab 3 07/08/2020 07/12/2020 documented in this encounter Miscellaneous Notes * Telephone Encounter - Sherly Kimbrough, ANA - 07/08/2020 1840 EDT Refill levothyroxine ZURI - 04/19/20 NOV - none last TSH - 01/16/20 Rx(s) escribed to pharmacy. SHERLY KIMBROUGH RN documented in this encounter Plan of Treatment Upcoming Encounters Date Type Department Care Team (Late st Contact Info) Description 06/11/2024 12:45 EDT Office Visit [facility] Ophthalmology - [place] [address] [place], [place] [address] Santiago Anthony MD 111 [facility], [facility], [facility] 5 [place] [address] 07/15/2024 10:45 EDT Office Visit [facility] [address] [place], [place] [phone] Gianfranco Flowers MD 130 [facility] [address] [place] [phone] documented as of this encounter Visit Diagnoses Not on filedocumented in this encounter Discontinued Medications Medication Sig Discontinue Reason Start Date End Da te levothyroxine (SYNTHROID) 100 mcg tablet Take 100 mcg by mouth daily. Reorder 04/17/2020 07/08/2020 documented as of this encounter Care Teams Family Service Aide Relationship Specialty Start Date End Date Nivia Tinsley MD [address] [place] [address] PCP - General Family Medicine - Primary Care 08/27/19 Reagan Pickett MD [address] [place] [address] Cardiovascular Disease 09/01/19 0 Zheng Tapia MD [address] [place] [address] [address] [place] [address] Internal Medicine - Primary Care 09/01/19 Shazia Burks MD [address] [place], [place] [address] Neurology 09/01/19 Tony Baron OD [address] [place] [phone] Medicaid Plan Compliance Director 09/01/19 documented as of this encounter
--- OUTSIDE RECORDS SUMMARY | 2024-04-29 18:26 | XMS_ITS | Encounter Summary ---
Author Organization [facility] Address [address] [place] [address] Care Team Providers Care Bolter Helper Name Role Phone Nivia Tinsley MD Primary Care Provider [phone] Reagan Pickett MD Unavailable [phone] Zheng Tapia MD Unavailable Shazia Burks MD Unavailable [phone] Tony Baron OD Unavailable [phone] Reason for Visit * Reason Onset Date Comments Results 07/02/2020 Encounter Details Date Type Department Care Team (Late st Contact Info) Description 07/02/2020 Telephone [facility] Integrative Family Medicine [address] [phone] Phil Vickers, RN Results Social History Tobacco [...] Telephone Encounter - Phil Vickers RN - 07/02/2020 1415 EDT Zoom visit scheduled. Please send Zoom invite to [email or web address]. * Telephone Encounter - Nivia Tinsley MD - 07/02/2020 1259 EDT Zoom would be best. Meds have side effects, so best to discuss since it is only dribbling. * Telephone Encounter - Phil Vickers RN - 07/02/2020 1149 EDT I spoke with Nicki at [facility] who reports a negative UA per orders from yesterday. Urine sample will not be sent for culture. Nicki wonders if the patient may benefit from a medication to help decrease constant urinary dribbling. Would you like to arrange a visit via telemedicine to discuss? Giovanni ghosh remains asymptomatic aside from urinary dribbling. documented in this encounter Plan of Treatment Upcoming Encounters Date Type Department Care Team (Late st Contact Info) Description 06/11/2024 12:45 EDT Office Visit [facility] Ophthalmology - [place] [address] [place], [place] [phone] Santiago Anthony MD [address] [place] [address] 5 [place] [address] 07/15/2024 10:45 EDT Office Visit [facility] Cardiology Clinic [address] [place], [place] [phone] Gianfranco Flowers MD 130 [facility] [address] [place] [address] documented as of this encounter Visit Diagnoses Not on filedocumented in this encounter Care Teams Bolter Helper Relationship Specialty Start Date End Date Nivia Tinsley MD [address] [place], [place] [phone] PCP - General Family Medicine - Primary Care 08/27/19 Reagan Pickett MD [address] [place], [place] [phone] Cardiovascular Disease 09/01/19 0 Zheng Tapia MD [address] [place] [address] [address] [place] [address] Internal Medicine - Primary Care 09/01/19 Shazia Burks MD [address] [place] [address] Neurology 09/01/19 Tony Baron OD [address] [place] [phone] Slitter Processed Film 09/01/19 documented as of this encounter
--- OUTSIDE RECORDS SUMMARY | 2024-04-29 18:26 | XMS_ITS | Encounter Summary ---
Author Organization [facility] Address [address] [place] [address] Care Team Providers Care Test Center Manager Name Role Phone Nivia Tinsley MD Primary Care Provider [phone] Reagan Pickett MD Unavailable [phone] Zheng Tapia MD Unavailable Shazia Burks MD Unavailable [phone] Tony Baron OD Unavailable [phone] Reason for Visit * Reason Onset Date Comments Medication Problem 07/12/2020 Encounter Details Date Type Department Care Team (Late st Contact Info) Description 07/12/2020 Telephone [facility] Integrative Family Medicine [address] [address] Stephanie Sheridan, grinder machine knife setter Problem Social History Tobacco Use Types Packs/Day Years [...] Tab by mouth daily. 90 Tab 3 07/12/2020 03/01/2021 losartan (COZAAR) 100 mg tabletIndications:Essential hypertension 1 tab(s) orally once a day 90 Tab 3 07/12/2020 03/01/2021 atorvastatin (LIPITOR) 20 mg tabletIndications:Mixed hyperlipidemia 1 tab(s) orally once a day 90 Tab 3 07/12/2020 03/01/2021 atenoloL (TENORMIN) 25 mg tablet Take 1 Tab by mouth daily. 90 Tab 3 07/12/2020 03/01/2021 documented in this encounter Miscellaneous Notes * Telephone Encounter - Stephanie Sheridan RN - 07/12/2020 1323 EDT Tonya called to report that the pt needs urgent refills sent to [facility]. She is out of medication. Pt will be leaving on or around the . documented in this encounter Plan of Treatment Upcoming Encounters Date Type Department Care Team (Late st Contact Info) Description 06/11/2024 12:45 EDT Office Visit [facility] Ophthalmology - [place] [address] [place], [place] [phone] Santiago Anthony MD [address] [place] [address] 5 [place] [address] 07/15/2024 10:45 EDT Office Visit [facility] Cardiology Clinic [address] [place], [place] [phone] Gianfranco Flowers MD 130 [facility] [address] [place] [address] documented as of this encounter Visit Diagnoses Diagnosis Mixed hyperlipidemia Essential hypertension Unspecified essential hypertension documented in this encounter Discontinued Medications Medication Sig Discontinue Reason Start Date End Da te atenoloL (TENORMIN) 25 mg tablet Take 1 Tab by mouth daily. Reorder 07/12/2020 07/12/2020 atorvastatin (LIPITOR) 20 mg tabletIndications:Mixed hyperlipidemia 1 tab(s) orally once a day Reorder 07/12/2020 07/12/2020 levothyroxine (SYNTHROID) 100 mcg tablet Take 1 Tab by mouth daily. Reorder 07/12/2020 07/12/2020 losartan (COZAAR) 100 mg tabletIndications:Essentia l hypertension 1 tab(s) orally once a day Reorder 07/12/2020 07/12/2020 documented as of this encounter Care Teams Test Center Manager Relationship Specialty Start Date End Date Nivia Tinsley MD [address] [place] [phone] PCP - General Family Medicine - Primary Care 08/27/19 Reagan Pickett MD [address] [place] [address] Cardiovascular Disease 09/01/19 0 Zheng Tapia MD [address] [place] [address] 7 [place] [phone] Internal Medicine - Primary Care 09/01/19 Shazia Burks MD [address] [place] [address] Neurology 09/01/19 Tony Baron OD [address] [place] [phone] House Painting Instructor 09/01/19 documented as of this encounter
--- OUTSIDE RECORDS SUMMARY | 2024-04-29 18:26 | XMS_ITS | Encounter Summary ---
Author Organization [facility] Address [address] [place] [address] Care Team Providers Care Bench Machine Operator Name Role Phone Nivia Tinsley MD Primary Care Provider Reagan Pickett MD Unavailable [phone] Zheng Tapia MD Unavailable Shazia Burks MD Unavailable [phone] Tony Baron OD Unavailable [phone] Reason for Visit * Reason Onset Date Comments Other 07/07/2020 Encounter Details Date Type Department Care Team (Late st Contact Info) Description 07/07/2020 Telephone [facility] Integrative Family Medicine [employer] [address] [place] [address] Nivia Tinsley MD [address] [place] [address] Other Social History Tobacco Use [...] mouth daily. 90 Tab 3 07/12/2020 03/01/2021 Vit A,C & J-Gdcyjh-Wddfhely 1,000 unit-200 mg-60 unit-2 mg tablet Take 1 tab by mouth daily 90 Tab 3 07/12/2020 04/01/2021 nitroGLYCERIN (NITROSTAT) 0.4 mg SL tablet Take 1 tab under the tongue every 5 minutes for persistent Chest pain, up to 3 doses. 24 Tab 07/12/2020 05/23/2021 losartan (COZAAR) 100 mg tabletIndications:Essenti al hypertension 1 tab(s) orally once a day 90 Tab 3 07/12/2020 07/12/2020 levothyroxine (SYNTHROID) 100 mcg tablet Take 1 Tab by mouth daily. 90 Tab 3 07/12/2020 07/12/2020 cholecalciferol, Vitamin D3, 1,000 unit tablet Take 1 Tab by mouth daily. 90 Tab 3 07/12/2020 03/01/2021 carboxymethylcellulose sodium (ARTIFICIAL TEARS, [facility],) 1 % drops Apply 2 Drops to eye as needed (dry eye). 10 mL 11 07/12/2020 10/21/2021 atorvastatin (LIPITOR) 20 mg tabletIndications:Mixed hyperlipidemia 1 tab(s) orally once a day 90 Tab 3 07/12/2020 07/12/2020 atenoloL (TENORMIN) 25 mg tablet Take 1 Tab by mouth daily. 90 Tab 3 07/12/2020 07/12/2020 documented in this encounter Miscellaneous Notes * Telephone Encounter - Phil Vickers RN - 07/12/2020 1004 EDT I spoke with regarding the patient's medication usage. states patient has not used any of thePRN medication since her time at , so these will not need to be refilled. * Telephone Encounter - Sherly Mei RN - 07/12/2020 0825 EDT Rxs sent to [facility] for MOT. Was there anything on the PRN MAR that she takes frequently? I did send the artificial tears and nitro that were already on her list, but don't know if she takes any of the other PRNs or if they were just institutional standing orders. * Telephone Encounter - Sarah Booth - 07/09/2020 1557 EDT Carmen called stating [facility] has not received the new scripts for pt's current meds. She saysthe cutoff time is getting extremely close. She is also inquiring about the status of the referral to [facility] for nursing and physical therapy. Please advise. * Telephone Encounter - Melani Kidd - 07/09/2020 1454 EDT Yung asked me to scan in the current med list and assign to Sherly. This has been done. * Telephone Encounter - Melani Kidd - 07/09/2020 1442 EDT Received current med list and giving to Yung * Telephone Encounter - Melani Kidd - 07/09/2020 1423 EDT Carmen called and she will fax the updated list again in case we did not receive it. Pt also needs referral to [facility] for nursing and PT. Pt is being discharged on Sunday07/12/20 * Telephone Encounter - Phil Vickers, ANA - 07/08/2020 0828 EDT Awaiting updated medication list. * Telephone Encounter - Aracelis Garcia - 07/07/2020 1200 EDT Carmen at [facility] calling, states patient is adamant she will be leaving next Sunday, but they do not have a discharge date yet. She will need [facility] in [place] to fill/new scriptfor every single medicine she is going home on. They will be faxing over a list of meds she is on now. documented in this encounter Plan of Treatment Upcoming Encounters Date Type Department Care Team (Late st Contact Info) Description 06/11/2024 12:45 EDT Office Visit [facility] Ophthalmology - [place] [address] [place] [address] Santiago Anthony MD [address] [facility] [address] [place] [address] 07/15/2024 10:45 EDT Office Visit [facility] Cardiology Clinic [address] [place] [address] Gianfranco Flowers MD 130 [facility] [address] [place] [address] documented as of this encounter Visit Diagnoses Diagnosis Mixed hyperlipidemia Essential hypertension Unspecified essential hypertension documented in this encounter Discontinued Medications Medication Sig Discontinue Reason Start Date End Da te levothyroxine (SYNTHROID) 100 mcg tablet Take 1 Tab by mouth daily. 07/08/2020 07/12/2020 Vit A,C & D-Shadfe-Keizcqzi 1,000 unit-200 mg-60 unit-2 mg tablet Take 1 tab by mouth daily Reorder 03/29/2020 07/12/2020 nitroGLYCERIN (NITROSTAT) 0.4 mg SL tablet Take 1 tab under the tongue every 5 minutes for persistent Chest pain, up to 3 doses. Reorder 03/29/2020 07/12/2020 cholecalciferol, Vitamin D3, 1,000 unit tablet Take 1 Tab by mouth daily. Reorder 03/29/2020 07/12/2020 carboxymethylcellulose sodium (ARTIFICIAL TEARS, [facility],) 1 % drops Apply 2 Drops to eye as needed (dry eye). Reorder 03/29/2020 07/12/2020 losartan (COZAAR) 100 mg tabletIndications:Essent ial hypertension 1 tab(s) orally once a day Reorder 06/23/2020 07/12/2020 atorvastatin (LIPITOR) 20 mg tabletIndications:Mixed hyperlipidemia 1 tab(s) orally once a day Reorder 06/23/2020 07/12/2020 atenoloL (TENORMIN) 25 mg tablet Take 1 Tab by mouth daily. Reorder 06/23/2020 07/12/2020 levothyroxine (SYNTHROID) 100 mcg tablet Take 100 mcg by mouth daily. 07/12/2020 aspirin chewable 81 mg tablet Take 81 mg by mouth daily. Reorder 07/12/2020 documented as of this encounter Historical Medications * This list may reflect changes made after this encounter. Medication Sig Dispensed Refills Start Date End Date aspirin chewable 81 mg tablet Take 81 mg by mouth daily. 07/12/2020 levothyroxine (SYNTHROID) 100 mcg tablet Take 100 mcg by mouth daily. 07/12/2020 added in this encounter Care Teams Bench Machine Operator Relationship Specialty Start Date End Date Nivia Tinsley MD [address] [place] [address] PCP - General Family Medicine - Primary Care 08/27/19 Reagan Pickett MD [address] [place] [address] Cardiovascular Disease 09/01/19 0 Zheng Tapia MD [address] [place] [address] [place] [phone] Internal Medicine - Primary Care 09/01/19 Shazia Burks MD [address] [place] [address] Neurology 09/01/19 Tony Baron OD [address] [place] [phone] Traffic Reporter 09/01/19 documented as of this encounter
--- OUTSIDE RECORDS SUMMARY | 2024-04-29 18:26 | XMS_ITS | Encounter Summary ---
Author Organization [facility] Address [address] [place] [address] Care Team Providers Care Furnace Loader Name Role Phone Nivia Tinsley MD Primary Care Provider Reagan Pickett MD Unavailable [phone] Zheng Tapia MD Unavailable Shazia Burks MD Unavailable [phone] Tony Baron OD Unavailable [phone] Reason for Visit * Reason Onset Date Comments Orders (Non Pre-visit) 05/03/2020 Encounter Details Date Type Department Care Team (Late st Contact Info) Description 05/03/2020 Telephone [facility] Integrative Family Medicine [facility] [address] [place] [address] Nivia Tinsley MD [address] [place] [address] Orders (Non Pre-visit) Social History [...] Telephone Encounter - Stephanie Sheridan RN - 05/04/2020 1408 EDT HW is aware and will call back it pt wants a PT referral * Telephone Encounter - Nivia Tinsley MD - 05/03/2020 1657 EDT Ok to take Tylenol 500 mg 2 tabs. QID PRN for pain and IBU 400 mg TID PRN. How about a PT referral.I don't like knee braces unless ortho rxs them b/c them stiff and week. * Telephone Encounter - Aracelis Garcia - 05/03/2020 1608 EDT Farheen from [facility] called. Pt was admitted with them at 2pm today, upon admission interview patient said she has knee pain which prevents her from doing stuff. They will meeds PRN order for Tylenol and Ibuprofen . Pt was asking if she could use a brace to help with this. documented in this encounter Plan of Treatment Upcoming Encounters Date Type Department Care Team (Late st Contact Info) Description 06/11/2024 12:45 EDT Office Visit [facility] Ophthalmology - [address] [address] Santiago Anthony MD [address] [place] [address] 5 [place] [phone] 07/15/2024 10:45 EDT Office Visit [facility] Cardiology Clinic [address] [place], [place] [address] Gianfranco Flowers MD 130 [facility] [address] [phone] documented as of this encounter Visit Diagnoses Not on filedocumented in this encounter Care Teams Furnace Loader Relationship Specialty Start Date End Date Nivia Tinsley MD [address] [place], [place] [address] PCP - General Family Medicine - Primary Care 08/27/19 Reagan Pickett MD [address] [place] [address] Cardiovascular Disease 09/01/19 0 Zheng Tapia MD [address] [place] [address] [address] [place] [phone] Internal Medicine - Primary Care 09/01/19 Shazia Burks MD [address] [place] [address] Neurology 09/01/19 Tony Baron OD [address] [place] [phone] Automotive Product Specialist 09/01/19 documented as of this encounter
--- OUTSIDE RECORDS SUMMARY | 2024-04-29 18:26 | XMS_ITS | Encounter Summary ---
Author Organization [facility] Address [address] [place] [address] Care Team Providers Care Company Laundry Worker Name Role Phone Nivia Tinsley MD Primary Care Provider [phone] Reagan Pickett MD Unavailable Zheng Tapia MD Unavailable Shazia Burks MD Unavailable [phone] Tony Baron OD Unavailable [phone] Reason for Visit * Reason Comments Follow-up Stroke Encounter Details Date Type Department Care Team (Late st Contact Info) Description 04/19/2020 13:20 EDT Office Visit [facility] [address] [address] Nivia Tinsley MD [address] [place] [address] Thalamic stroke (HCC-CMS) (Primary Dx); Prediabetes; Acquired hypothyroidism; Mixed hyperlipidemia; Coronary artery disease involving [place] coronary artery of [place] heart without angina pectoris; Essential hypertension; Decreased visual acuity Social History Tobacco Use Types Packs/Day Years [...] Sign Reading Time Taken Comments Blood Pressure 140/78 04/19/2020 1309 EDT Pulse 68 04/19/2020 1309 EDT Temperature - - Respiratory Rate 18 04/19/2020 1309 EDT Oxygen Saturation 93% 04/19/2020 1309 EDT Inhaled Oxygen Concentration - - Weight [...] Progress Notes * Nivia Tinsley MD - 04/19/2020 1320 EDT Images from the original note were not included. [facility] Primary Care Subjective: Chief Complaint(s): Follow-up (Stroke) HPI: 79-year-old woman with CAD, visual impairment, prediabetes, hypothyroidism, hypertension and hyperlipidemia was in the ED in 12/2019 for progressively worsening bilateral knee pain and generalized weakness. The patient had progressively worsening right greater than left knee pain for the past several months prior to presentation. She did fall in her home and struck her right ear. She had a headache. She did have some numbness in her right hand lasting 15 minutes earlier today without any associated weakness which resolved. She had not noted any other recent focal extremity weakness. She had a stroke with associated aphasia symptoms 6 years ago but she has not had any recurrence of the symptoms. In the [facility] ED, the patient received 500 mL normal saline. Hospital Course: CVA- New thalamic acute/subacture infarct. --with some peripheral ataxia as well on cereballar testing --CT head stable with significant microvascualr disease and old CVA --MRI showed new thalamic infarct sub acute --repeat Head CT no hemorrhagic conversion --PT/OT, DIRECTOR OF INSTITUTIONAL RESEARCH consulted-patient went to [facility] and now is back home and is soon being d/catrachita by kenya JASON into 05/03/20 --ASA, statin rxed at d/c, but patient declined increased intensity due to hx of myalgias, not taking ASA and more, and she is not sure why since she gets bubble packs, no neuro referral made at D/C --plavix for 21 days was completed --Ziopatch at discharge to monitor for occult PAF-completed, but no results in the chart While she was inpatient she had acute hypoxemic respiratory failure --She had a significant O2 requirement on admissio. --Suspected secondary to atalectasis, D-dimer and BNP normal, CXR normal --Start incentive spirometer while awake. --Resolved at the time of discharge, today O2 sat 93% Coronary artery disease; posterior-circulation ischemic stroke in 12/2011 --Continude aspirin, atenolol and atorvastatin. She is not taking her ASA --Sublingual nitroglycerin as needed, though no recent anginal symptoms. Essential hypertension --Continue losartan and atenolol. --Avoid relative hypotension given the patient's recent gait instability. --She has been hypertensive, but reasonable for permissive hypertension. Hyperlipidemia --Continue atorvastatin. --given stroke discussed increasing intensity of dose, but patient had myalgias with higher doses in past Hypothyroidism --TSH is within normal limits which inpatient Impaired glucose tolerance A1C is 6.5 (avg glucose of 140) --continue with carb consistent diet, and it came down to 6.3 2 months ago Slowly progressive decreased visual acuity --Recommended patient follow up with outpatient optho, in the past she has been told nothing possible to do, but perhaps given decline now there is intervenable disease, no referral was made for an appointment I have reviewed patient's tobacco history: reports that she has never smoked. She has never used smokeless tobacco. I have reviewed current problem list and current medications. ROS: Review of Systems Eyes: Legally blind Neurological: Positive for focal weakness. Objective: Examination: Vitals: BP 140/78 Pulse 68 Resp 18 SpO2 93% There is no height or weight on file to calculate BMI. Physical Exam Constitutional: She is oriented to person, place, and time. She appears well- developed and well-nourished. HENT: Head: Normocephalic and atraumatic. Eyes: Conjunctivae are normal. Neck: Neck supple. Cardiovascular: Normal rate, regular rhythm and normal heart sounds. Exam reveals no gallop and no friction rub. No murmur heard. Pulmonary/Chest: Effort normal and breath sounds normal. She has no wheezes. She has no rales. Musculoskeletal: Normal range of motion. She exhibits no edema. Neurological: She is alert and oriented to person, place, and time. Skin: Skin is warm and dry. No rash noted. Psychiatric: She has a normal mood and affect. Vitals reviewed. Data reviewed with patient (past results): Results for orders placed or performed in visit on 02/10/20 COMPREHENSIVE METABOLIC PANEL (CMP) Result Value Ref Range ALBUMIN - [facility] 3.8 3.4 - 4.9 g/dL ALKALINE PHOSPHATASE - [facility] 102 38 - 126 U/L BILIRUBIN TOTAL - [facility] 0.7 0.2 - 1.3 mg/dL BUN - [facility] 18 10 - 26 mg/dL CALCIUM - [facility] 9.6 8.5 - 10.5 mg/dL Chloride 101 96 - 110 mmol/L CO2 Total 24 22 - 32 mEq/L CREATININE - [facility] 0.76 0.52 - 1.04 mg/dL eGFR >60 Anion Gap 10 0 - 18 GLUCOSE - [facility] 144 (H) 70 - 100 mg/dL Potassium 3.8 3.5 - 5.0 mEq/L Sodium 135 (L) 136 - 145 mEq/L TOTAL PROTEIN - [facility] 6.5 6.2 - 8.2 gm/dL SGOT/AST - [facility] 27 14 - 36 U/L SGPT/ALT - [facility] 25 0 - 35 U/L HEMOGLOBIN A1C Result Value Ref Range Hemoglobin A1c 6.3 (H) 4.0 - 6.0 % Est Avg Glucose 134 mg/dL Assessment & Plan: Concetta was seen today for follow-up. Diagnoses and all orders for this visit: Thalamic stroke (HCC-CMS) - AMB CONS/FOLLOW UP NEUROLOGY; Future - AMB CONS/FOLLOW UP HOME HEALTH SERVICES; Future Prediabetes Comments: Stable. She will continue to work on her diet Acquired hypothyroidism Comments: Stable. Mixed hyperlipidemia Comments: Continue statin. Coronary artery disease involving [place] coronary artery of [place] heart without angina pectoris Comments: I will try to find the Zio patch report. Essential hypertension Comments: Will have HH onitor and if >140/>90 will consider another medication. Decreased visual acuity Comments: Will consider a referral to optho once she is at . Return if symptoms worsen or fail to improve. Nivia Tinsley MD, FAAFP documented in this encounter Plan of Treatment Upcoming Encounters Date Type Department Care Team (Late st Contact Info) Description 06/11/2024 12:45 EDT Office Visit [facility] Ophthalmology - [address] [address] Santiago Anthony MD [address] [place] [address] 5 [place] [address] 07/15/2024 10:45 EDT Office Visit [facility] - [facility] Cardiology Clinic [address] [place] [address] Gianfranco Flowers MD [address] [facility] [address] [place] [address] documented as of this encounter Visit Diagnoses Diagnosis Thalamic stroke (HCC-CMS)- Primary Prediabetes Other abnormal glucose Acquired hypothyroidism Unspecified hypothyroidism Mixed hyperlipidemia Coronary artery disease involving [place] coronary artery of [place] heart without angina pectoris Essential hypertension Unspecified essential hypertension Decreased visual acuity Unspecified visual loss documented in this encounter Discontinued Medications Medication Sig Discontinue Reason Start Date End Da te polyethylene glycol (MIRALAX) 17 gram/dose powder Take 17 g by mouth daily as needed for Constipation. constipation 03/29/2020 04/19/2020 UNABLE TO FIND Magic Mouthwash Maalox (40mL), viscous lidocaine (40mL), Benadryl (40mL) liquid, Sig: as directed swish, gargle, and spit four times per day as needed 04/19/2020 documented as of this encounter Care Teams Company Laundry Worker Relationship Specialty Start Date End Date Nivia Tinsley MD [address] [place] [address] PCP - General Family Medicine - Primary Care 08/27/19 Reagan Pickett MD [address] [place] [address] Cardiovascular Disease 09/01/19 0 Zheng Tapia MD [address] [place] [address] [place] [phone] Internal Medicine - Primary Care 09/01/19 Shazia Burks MD [address] [place] [address] Neurology 09/01/19 Tony Baron OD [address] [place] [phone] Director Corporate Security 09/01/19 documented as of this encounter
--- OUTSIDE RECORDS SUMMARY | 2024-04-29 18:26 | XMS_ITS | Encounter Summary ---
Author Organization [facility] Address [address] [place] [address] Care Team Providers Care Object Oriented Programmer Name Role Phone Nivia Tinsley MD Primary Care Provider Reagan Pickett MD Unavailable Zheng Tapia MD Unavailable Shazia Burks MD Unavailable Tony Baron OD Unavailable Keira Paniagua MD Unavailable Siva Perkins MD Unavailable [phone] Sheryl Schwab RN Unavailable Ladonna Candelario Unavailable Unavailable Encounter Details Date Type Department Care Team (Late st Contact Info) Description 05/04/2020 Lab Requisition [facility] Pathology & Laboratory Medicine - [facility] [address] [place] [address] Nivia Tinsley MD [address] [place] [id number] Encounter for other general examination Social History Tobacco Use Types Packs/Day Years [...] Office Visit [facility] Ophthalmology [facility] [address] [place] [address] Santiago Anthony MD [address] [place] [address], [facility] [address] [place] [address] 07/15/2024 10:45 EDT Office Visit [facility] Cardiology Clinic [address] [place], [place] [phone] Gianfranco Flowers MD 130 [facility] [address] [place] [phone] documented as of this encounter Procedures Procedure Name Priority Date/Time Associated Diagnosis Comments DO NOT ORDER STANDALONE - THOR COVID TESTING Today 05/04/2020 10:50 EDT Encounter for other general examination COVID-19 TESTING Today 05/04/2020 10:5 0 EDT Encounter for other general examination documented in this encounter Results * DO NOT ORDER STANDALONE - THOR COVID TESTING (05/04/2020 10:50 EDT) COVID-19 rt-PCR Result Not Detected Not Detected 05/05/2020 17:44 EDT [facility] Comment: This test has not been FDA cleared or approved. This test has been authorized by FDA under an EUA for use by authorized laboratories. ??This test has been authorized only for the detection of nucleic acid from SARS-CoV-2, not for any other viruses or pathogens. ??This test is only authorized for the duration of the declaration that circumstances exist justifying the authorization of emergency use of in vitro diagnostic tests for detection and/or diagnosis of COVID-19 under Section 564(b)(1) of the Act, 21 U.S.C. Section 360bbb-3(b)(1), unless the authorization is terminated or revoked sooner. ??Factsheets for healthcare providers: ??https://www.fda.gov/media/229798/download Factsheets for patients: https://www.fda.gov/media/071581/download Negative results do not preclude infection with SARS-CoV-2 virus, and should not be the sole basis of a patient management decision. Swab NASAL / Unknown 05/04/2020 1 0:50 EDT 05/04/2020 21:05 EDT Nivia Tinsley MD MICROBIOLOGY - GENE RAL ORDERABLES [facility] [address] [place] [address] * COVID-19 TESTING (05/04/2020 10:50 EDT) COVID-19 rt-PCR Result Not Detected Not Detected 05/05/2020 18:03 EDT [facility] Comment: This test has not been FDA cleared or approved. This test has been authorized by FDA under an EUA for use by authorized laboratories. ??This test has been authorized only for the detection of nucleic acid from SARS-CoV-2, not for any other viruses or pathogens. ??This test is only authorized for the duration of the declaration that circumstances exist justifying the authorization of emergency use of in vitro diagnostic tests for detection and/or diagnosis of COVID-19 under Section 564(b)(1) of the Act, 21 U.S.C. Section 360bbb-3(b)(1), unless the authorization is terminated or revoked sooner. ??Factsheets for healthcare providers: ??https://www.fda.gov/media/121381/download Factsheets for patients: https://www.fda.gov/media/148709/download Negative results do not preclude infection with SARS-CoV-2 virus, and should not be the sole basis of a patient management decision. Performing Lab [facility] 05/05/2020 18:03 EDT [facility] Swab NASAL / Unknown 05/04/2020 1 0:50 EDT 05/04/2020 21:05 EDT Nivia Tinsley MD MICROBIOLOGY - GENE [facility] ORDERABLES [facility] [address] [place] [address] [facility] [address] [place] [address] documented in this encounter Visit Diagnoses Diagnosis Encounter for other general examination documented in this encounter Additional Health Concerns Infection Onset Date Last Indicated Resolved Time R/O COVID-19 Comment:Covid neg. 02/21/2022 02/21/2022 02/21/2022 10:07 EDT Rule-Out C. difficile 02/21/2022 02/21/20222021 14:01 EDT documented as of this encounter Care Teams Object Oriented Programmer Relationship Specialty Start Date End Date Nivia Tinsley MD [address] [place] [address] PCP - General Family Medicine - Primary Care 08/27/19 Reagan Pickett MD [address] [place] [address] Cardiovascular Disease 09/01/19 0 Zheng Tapia MD [address] [place] [address] [address] [place] [address] Internal Medicine - Primary Care 09/01/19 Shazia Burks MD [address] [place] [address] Neurology 09/01/19 Tony Baron, FRANCK [address] [place] [phone] Sql Report Developer 09/01/19 Keira Paniagua MD [address] [place] [address] [address] [place] [address] Cardiovascular Disease 09/06/20 Siva Perkins MD [address] [place] [address] Neurology 09/06/20 Sheryl Schwab, ANA [address] [place] [address] Parts Lister 01/23/24 01/23/24 Ladonna Candelario Parts Lister 01/23/24 documented as of this encounter
--- OUTSIDE RECORDS SUMMARY | 2024-04-29 18:27 | XMS_ITS | Encounter Summary ---
Author Organization [facility] Address [address] [place] [address] Care Team Providers Care Supervisor Pipe Finishing Name Role Phone Nivia Tinsley MD Primary Care Provider [phone] Reagan Pickett MD Unavailable [phone] Zheng Tapia MD Unavailable Shazia Burks MD Unavailable [phone] Tony Baron OD Unavailable [phone] Reason for Visit * Reason Onset Date Comments Medications Refill 03/29/2020 Encounter Details Date Type Department Care Team (Late st Contact Info) Description 03/29/2020 Refill [facility] Medicine [address] [address] Phil Vickers, RN Medications Refill Social History Tobacco Use [...] Dispensed Refills Start Date End Da te carboxymethylcellulose sodium (ARTIFICIAL TEARS, [facility],) 1 % drops Apply 2 Drops to eye as needed (dry eye). 10 mL 3 03/29/2020 07/12/2020 polyethylene glycol (MIRALAX) 17 gram/dose powder Take 17 g by mouth daily as needed for Constipation. constipation 1 Bottle 3 03/29/2020 04/19/2020 atenoloL (TENORMIN) 25 mg tablet Take 1 Tab by mouth daily. 90 Tab 3 03/29/2020 06/23/2020 atorvastatin (LIPITOR) 20 mg tabletIndications:Mixed hyperlipidemia 1 tab(s) orally once a day 90 Tab 3 03/29/2020 06/23/2020 cholecalciferol, Vitamin D3, 1,000 unit tablet Take 1 Tab by mouth daily. 90 Tab 3 03/29/2020 07/12/2020 Levothyroxine 100 mcg capsule Take 1 Tab by mouth daily. 90 Cap 3 03/29/2020 05/11/2020 losartan (COZAAR) 100 mg tabletIndications:Essen tial hypertension 1 tab(s) orally once a day 90 Tab 3 03/29/2020 06/23/2020 nitroGLYCERIN (NITROSTAT) 0.4 mg SL tablet Take 1 tab under the tongue every 5 minutes for persistent Chest pain, up to 3 doses. 24 Tab 03/29/2020 07/12/2020 Vit A,C & K-Gwzjxq-Jcjeptqv 1,000 unit-200 mg-60 unit-2 mg tablet Take 1 tab by mouth daily 90 Tab 3 03/29/2020 07/12/2020 documented in this encounter Miscellaneous Notes * Telephone Encounter - Phil Vickers, RN - 03/29/2020 0857 EDT Patient's daughter contacted the office for help with initiating bubble pack medications. Daughter has filled out paperwork for [facility] in [place]. Pharmacy requires refills of all medications, and a faxed UTD medication list. Medications refilled and med list faxed to [facility]. documented in this encounter Plan of Treatment Upcoming Encounters Date Type Department Care Team (Late st Contact Info) Description 06/11/2024 12:45 EDT Office Visit [facility] Ophthalmology - [address] [address] Santiago Anthony MD [address] [place] [address], [facility] [address] [place] [address] 07/15/2024 10:45 EDT Office Visit [facility] Cardiology Clinic [address] [place], [place] [phone] Gianfranco Flowers MD 130 [facility] [address] [place] [address] documented as of this encounter Visit Diagnoses Diagnosis Essential hypertension Unspecified essential hypertension Mixed hyperlipidemia documented in this encounter Discontinued Medications Medication Sig Discontinue Reason Start Date End Da te Vit A,C & G-Pgqgmm-Ehadbgoq 1,000 unit-200 mg-60 unit-2 mg tablet Take 1 tab by mouth daily Reorder 02/27/2020 03/29/2020 nitroGLYCERIN (NITROSTAT) 0.4 mg SL tablet Take 1 tab under the tongue every 5 minutes for persistent Chest pain, up to 3 doses. Reorder 02/27/2020 03/29/2020 losartan (COZAAR) 100 mg tabletIndications:Essen tial hypertension 1 tab(s) orally once a day Reorder 02/27/2020 03/29/2020 Levothyroxine 100 mcg capsule Take 1 Tab by mouth daily. Reorder 02/27/2020 03/29/2020 cholecalciferol, Vitamin D3, 1,000 unit tablet Take 1 Tab by mouth daily. Reorder 02/27/2020 03/29/2020 atorvastatin (LIPITOR) 20 mg tabletIndications:Mixed hyperlipidemia 1 tab(s) orally once a day Reorder 02/27/2020 03/29/2020 atenoloL (TENORMIN) 25 mg tablet Take 1 Tab by mouth daily. Reorder 02/27/2020 03/29/2020 polyethylene glycol 3350 (MIRALAX ORAL) Take 17 g by mouth daily as needed. constipation Reorder 03/29/2020 carboxymethylcellulose sodium (ARTIFICIAL TEARS, [facility], OPHTHALMIC) Apply 1-2 Drops to eye. Reorder 03/29/2020 documented as of this encounter Care Teams Supervisor Pipe Finishing Relationship Specialty Start Date End Date Nivia Tinsley MD [address] [place] [phone] PCP - General Family Medicine - Primary Care 08/27/19 Reagan Pickett MD [address] [place] [address] Cardiovascular Disease 09/01/19 0 Zheng Tapia MD [address] [place] [address] [address] [place] [address] Internal Medicine - Primary Care 09/01/19 Shazia Burks MD [address] [place] [address] Neurology 09/01/19 Tony Baron OD [address] [place] [phone] Reed Or Wind Instrument Repairer 09/01/19 documented as of this encounter
--- OUTSIDE RECORDS SUMMARY | 2024-04-29 18:27 | XMS_ITS | Encounter Summary ---
Author Organization [facility] Address [address] [place] [address] Care Team Providers Care Manager Strategic Name Role Phone Nivia Tinsley MD Primary Care Provider Reagan Pickett MD Unavailable Zheng Tapia MD Unavailable Shazia Burks MD Unavailable [phone] Tony Baron OD Unavailable [phone] Reason for Visit * Reason Onset Date Comments Home Health 04/15/2020 Encounter Details Date Type Department Care Team (Late st Contact Info) Description 04/15/2020 Telephone [facility] - [facility] Integrative Family Medicine [facility] [address] [place] [address] Nivia Tinsley MD [address] [place] [address] Home Health Social History Tobacco [...] * Telephone Encounter - Aracelis Garcia - 04/15/2020 4498 EDT Sherly at [facility] calling re: patient's transition to [facility]. They will follow her up to and including transition to [facility] for home health, PT and OT. Will not need nursing there. Paperwork will be sent over. documented in this encounter Plan of Treatment Upcoming Encounters Date Type Department Care Team (Late st Contact Info) Description 06/11/2024 12:45 EDT Office Visit [facility] Ophthalmology [facility] [address] [place], [place] [address] Santiago Anthony MD [address] [place] [address], [facility] [address] [place] [address] 07/15/2024 10:45 EDT Office Visit [facility] Cardiology Clinic [address] [place], [place] [address] Gianfranco Flowers MD 130 [facility] [address] [place] [phone] documented as of this encounter Visit Diagnoses Not on filedocumented in this encounter Care Teams Manager Strategic Relationship Specialty Start Date End Date Nivia Tinsley MD [address] [place] [address] PCP - General Family Medicine - Primary Care 08/27/19 Reagan Pickett MD [address] [place] [address] Cardiovascular Disease 09/01/19 0 Zheng Tapia MD [address] [place] [address] [address] [place] [address] Internal Medicine - Primary Care 09/01/19 Shazia Burks MD [address] [place] [address] Neurology 09/01/19 Tony Baron OD [address] [place] [phone] Marine Electronics Repairer 09/01/19 documented as of this encounter
--- OUTSIDE RECORDS SUMMARY | 2024-04-29 18:27 | XMS_ITS | Encounter Summary ---
Author Organization [facility] Address [address] [place] [address] Care Team Providers Care Film Reader Name Role Phone Nivia Tinsley MD Primary Care Provider [phone] Reagan Pickett MD Unavailable [phone] Zheng Tapia MD Unavailable Shazia Burks MD Unavailable [phone] Tony Baron OD Unavailable [phone] Reason for Visit * Reason Onset Date Comments Appointment Related 03/26/2020 Encounter Details Date Type Department Care Team (Late st Contact Info) Description 03/26/2020 Telephone [facility] Integrative Family Medicine [facility] [address] [place] [address] Nivia Tinsley MD [address] [place], [place] [phone] Appointment Related Social History Tobacco Use Types [...] Telephone Encounter - Felicia Boyle LPN - 03/26/2020 1533 EDT I don't see anything sooner. * Telephone Encounter - Jenifer Hernandez - 03/26/2020 1513 EDT Patient called in regards to her appointment she had this afternoon- her transportation that she had confirmed yesterday did not show up. She had to reschedule to next available- 04/19/2020 Patient was hoping for something sooner- not on a Sunday to see Dr. Tinsley as she had a lot of questions for her. She didn't want her thinking she just wasn't coming today. documented in this encounter Plan of Treatment Upcoming Encounters Date Type Department Care Team (Late st Contact Info) Description 06/11/2024 12:45 EDT Office Visit [facility] Ophthalmology - [place] [address] [place], [place] [address] Santiago Anthony MD 111 [facility], [facility] [address] [place] [address] 07/15/2024 10:45 EDT Office Visit [facility] Cardiology Clinic [address] [place], [place] [address] Gianfranco Flowers MD 130 [facility]- [address] [place] [phone] documented as of this encounter Visit Diagnoses Not on filedocumented in this encounter Care Teams Film Reader Relationship Specialty Start Date End Date Nivia Tinsley MD [address] [place] [address] PCP - General Family Medicine - Primary Care 08/27/19 Reagan Pickett MD [address] [place] [address] Cardiovascular Disease 09/01/19 0 Zheng Tapia MD [address] [place] [address] [address] [place] [address] Internal Medicine - Primary Care 09/01/19 Shazia Burks MD [address] [place], [place] [address] Neurology 09/01/19 Tony Baron OD [address] [place] [phone] Senior Windows Systems Administrator 09/01/19 documented as of this encounter
--- OUTSIDE RECORDS SUMMARY | 2024-04-29 18:27 | XMS_ITS | Encounter Summary ---
Author Organization [facility] Address [address] [place] [address] Care Team Providers Care Barrel Drainer Name Role Phone Nivia Tinsley MD Primary Care Provider [phone] Reagan Pickett MD Unavailable [phone] Zheng Tapia MD Unavailable Shazia Burks MD Unavailable [phone] Tony Baron OD Unavailable [phone] Reason for Visit * Reason Onset Date Comments Hospital Discharge Follow Up 03/04/2020 Encounter Details Date Type Department Care Team (Late st Contact Info) Description 03/04/2020 Telephone [facility] Integrative Family Medicine [address] [address] Gaby Guidry RN Hospital Discharge Follow Up Social History Tobacco Use Types Packs/Day Years [...] Telephone Encounter - Gaby Guidry RN - 03/04/2020 1621 EDT .Discharge from: [facility] Discharge to: home Date of Admission: unclear Date of Discharge: 03/04/20 Reason for Admission: cerebral infarction generalized weakness Final Diagnosis(es)/ Procedure(s): same Symptoms Improving? yes Discharge instructions available? no Medication/ Therapy changes? No Medication reconciliation complete? Yes Home care needs? Yes Having halfway. PT and OT Folow-up (TCM) appointment scheduled? Education/ plan: remain safely at home. Call with pain. Shortness of breath. Edema. Weakness. Any questions. Called patient 03/05/20 busy signal Spoke with patient. Nursing is coming in to see patient. She is settling into her apartment and catching up on papework and bills. Feels good. Doing new exercises to get stronger. Denies need to comein to see us. Wants to get oriented again. Will call prn documented in this encounter Plan of Treatment Upcoming Encounters Date Type Department Care Team (Late st Contact Info) Description 06/11/2024 12:45 EDT Office Visit [facility] Ophthalmology - [place] [address] [place] [address] Santiago Anthony MD [address] [place] [address], [facility] 5 [place] [address] 07/15/2024 10:45 EDT Office Visit [facility] [address] [place], [place] [address] Gianfranco Flowers MD 130 [facility] [address] [place] [phone] documented as of this encounter Visit Diagnoses Not on filedocumented in this encounter Discontinued Medications Medication Sig Discontinue Reason Start Date End Da te ammonium lactate (LAC-HYDRIN) 12 % lotion Apply 1 application topically 2 times daily as needed. Discontinued as Inpatient 03/05/2020 aspirin 81 mg EC tablet Take 1 Tab by mouth daily. Discontinued as Inpatient 02/27/2020 03/05/2020 calcium carbonate (TUMS) 200 mg calcium (500 mg) tablet,chewable Take 0.5-1 Tabs by mouth as needed. for stomach upset Discontinued as Inpatient 03/05/2020 fluticasone propionate (FLONASE) 50 mcg/actuation nasal spray Instill 1 [place] into both nostrils as needed for Other. intranasally Discontinued as Inpatient 02/27/2020 03/05/2020 documented as of this encounter Care Teams Barrel Drainer Relationship Specialty Start Date End Date Nivia Tinsley MD [address] [place], [place] [address] PCP - General Family Medicine - Primary Care 08/27/19 Reagan Pickett MD [address] [place], [place] [address] Cardiovascular Disease 09/01/19 0 Zheng Tapia MD [address] [place] [address] [address] [place] [address] Internal Medicine - Primary Care 09/01/19 Shazia Burks MD [address] [place] [address] Neurology 09/01/19 Tony Baron OD [address] [place] [phone] Regional Transfer Liaison 09/01/19 documented as of this encounter
--- OUTSIDE RECORDS SUMMARY | 2024-04-29 18:27 | XMS_ITS | Encounter Summary ---
Author Organization [facility] Address [address] [place] [address] Care Team Providers Care Data Modeler Name Role Phone Nivia Tinsley MD Primary Care Provider Reagan Pickett MD Unavailable [phone] Zheng Tapia MD Unavailable Shazia Burks MD Unavailable [phone] Tony Baron OD Unavailable [phone] Reason for Visit * Reason Onset Date Comments Paperwork request 04/05/2020 Encounter Details Date Type Department Care Team (Late st Contact Info) Description 04/05/2020 Telephone [facility] Integrative Family Medicine [facility] [address] [place] [address] Nivia Tinsley MD [address] [place] [address] Paperwork request Social History Tobacco Use Types Packs/Day Years [...] * Telephone Encounter - Aracelis Garcia - 04/05/2020 1536 EDT Yanira at [facility] called in re: evaluation/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 The history was not completed and summary was never sent over. Form given to provider's nurse. documented in this encounter Plan of Treatment Upcoming Encounters Date Type Department Care Team (Late st Contact Info) Description 06/11/2024 12:45 EDT [facility] [address] [place] [address] Santiago Anthony MD [address] [place] [address], [facility] 5 [place] [address] 07/15/2024 10:45 EDT Office Visit [facility] Cardiology Clinic [address] [place], [place] [phone] Gianfranco Flowers MD 130 [facility] [address] [place] [phone] documented as of this encounter Visit Diagnoses Not on filedocumented in this encounter Care Teams Data Modeler Relationship Specialty Start Date End Date Nivia Tinsley MD [address] [place] [address] PCP - General Family Medicine - Primary Care 08/27/19 Reagan Pickett MD [address] [place] [address] Cardiovascular Disease 09/01/19 0 Zheng Tapia MD [address] [place] [address] [address] [place] [address] Internal Medicine - Primary Care 09/01/19 Shazia Burks MD [address] [place] [address] Neurology 09/01/19 Tony Baron OD [address] [place] [phone] Pusher Operator 09/01/19 documented as of this encounter
--- OUTSIDE RECORDS SUMMARY | 2024-04-29 18:27 | XMS_ITS | Encounter Summary ---
Author Organization [facility] Address [address] [place] [address] Care Team Providers Care Sanding Machine Tender Name Role Phone Nivia Tinsley MD Primary Care Provider Reagan Pickett MD Unavailable [phone] Zheng Tapia MD Unavailable Shazia Burks MD Unavailable [phone] Tony Baron OD Unavailable [phone] Reason for Visit * Reason Onset Date Comments Home Health 03/15/2020 Encounter Details Date Type Department Care Team (Late st Contact Info) Description 03/15/2020 Telephone [facility] Integrative Family Medicine [facility] [address] [place] [address] Nivia Tinsley MD [address] [place] [address] Home Health Social History Tobacco [...] Telephone Encounter - Felicia Boyle LPN - 03/15/2020 1436 EDT TM left for Caty with ok for social work * Telephone Encounter - Aracelis Garcia - 03/15/[address] [facility] left message on voicemail, will need verbal ok for DIPLOMA MEDICAL ASSISTANT/social work order for [facility] care planning. documented in this encounter Plan of Treatment Upcoming Encounters Date Type Department Care Team (Late st Contact Info) Description 06/11/2024 12:45 EDT Office Visit [facility] Ophthalmology [facility] [address] [place], [place] [address] Santiago Anthony MD 111 [facility], [facility] [address] [place] [address] 07/15/2024 10:45 EDT Office Visit [facility] Cardiology Clinic [address] [place], [place] [phone] Gianfranco Flowers MD 130 [facility] [address] [place] [phone] documented as of this encounter Visit Diagnoses Not on filedocumented in this encounter Care Teams Sanding Machine Tender Relationship Specialty Start Date End Date Nivia Tinsley MD [address] [place] [address] PCP - General Family Medicine - Primary Care 08/27/19 Reagan Pickett MD [address] [place] [address] Cardiovascular Disease 09/01/19 0 Zheng Tapia MD [address] [place] [address] [address] [place] [phone] Internal Medicine - Primary Care 09/01/19 Shazia Burks MD [address] [place] [address] Neurology 09/01/19 Tony Baron OD [address] [place] [phone] Manager English 09/01/19 documented as of this encounter
--- OUTSIDE RECORDS SUMMARY | 2024-04-29 18:27 | XMS_ITS | Encounter Summary ---
Author Organization [facility] Address [address] [place] [address] Care Team Providers Care Portfolio Accountant Name Role Phone Nivia Tinsley MD Primary Care Provider [phone] Reagan Pickett MD Unavailable [phone] Zheng Tapia MD Unavailable Shazia Burks MD Unavailable [phone] Tony Baron OD Unavailable [phone] Reason for Visit * Reason Onset Date Comments Orders (Non Pre-visit) 03/09/2020 Encounter Details Date Type Department Care Team (Late st Contact Info) Description 03/09/2020 Telephone [facility] Integrative Family Medicine [address] [address] Stephanie Sheridan, ANA Orders (Non Pre-visit) Social History Tobacco Use [...] Telephone Encounter - Stephanie Sheridan RN - 03/09/2020 0839 EDT [facility] OT called to get the verbal ok to see pt for fall prevention and safety and also get TRAFFIC SIGN ERECTION SUPERVISOR services in for pt for shower safety. Verbal ok given documented in this encounter Plan of Treatment Upcoming Encounters Date Type Department Care Team (Late st Contact Info) Description 06/11/2024 12:45 EDT Office Visit [facility] Ophthalmology [address] [address] Santiago Anthony MD [address] [place] [address], [facility] 5 [place] [address] 07/15/2024 10:45 EDT Office Visit [facility] [place] [address] [place], [place] [address] Gianfranco Flowers MD 130 [facility] [address] [place] [address] documented as of this encounter Visit Diagnoses Not on filedocumented in this encounter Care Teams Portfolio Accountant Relationship Specialty Start Date End Date Nivia Tinsley MD [address] [place] [address] PCP - General Family Medicine - Primary Care 08/27/19 Reagan Pickett MD [address] [place] [address] Cardiovascular Disease 09/01/19 0 Zheng Tapia MD [address] [place] [address] [address] [place] [address] Internal Medicine - Primary Care 09/01/19 Shazia Burks MD [address] [place] [address] Neurology 09/01/19 Tony Baron OD [address] [place] [phone] Guitar Maker Hand 09/01/19 documented as of this encounter
--- OUTSIDE RECORDS SUMMARY | 2024-04-29 18:27 | XMS_ITS | Encounter Summary ---
Author Organization [facility] Address [address] [place] [address] Care Team Providers Care Used Car Renovator Name Role Phone Nivia Tinsley MD Primary Care Provider Reagan Pickett MD Unavailable [phone] Zheng Tapia MD Unavailable Shazia Burks MD Unavailable [phone] Tony Baron OD Unavailable [phone] Reason for Visit * Reason Onset Date Comments Rash 03/31/2020 Encounter Details Date Type Department Care Team (Late st Contact Info) Description 03/31/2020 Telephone [facility] Integrative Family Medicine [address] [address] Nivia Tinsley MD [address] [place] [address] Rash Social History Tobacco Use [...] Telephone Encounter - Stephanie Sheridan RN - 03/31/2020 1344 EDT Bubble packs have already been initiated (see previous encounter). * Telephone Encounter - Jenifer Hernandez - 03/31/2020 1035 EDT Home health called to inform Dr. Tinsley that patient has a rash on her neck that looks like littlemosquito bites and a dry itchy rash on her arm and legs (does not look the same as the one on neck). She has not tried benadryl yet to help. Patient also wanted to get set up for bubble packs for medications as she is having trouble with them. documented in this encounter Plan of Treatment Upcoming Encounters Date Type Department Care Team (Late st Contact Info) Description 06/11/2024 12:45 EDT Office Visit [facility] Ophthalmology - [place] [address] [place], [place] [address] Santiago Anthony MD 111 [facility] 5 [place] [address] 07/15/2024 10:45 EDT Office Visit [facility] Cardiology Clinic [address] [place], [place] [phone] Gianfranco Flowers MD 130 [facility] [place] [phone] documented as of this encounter Visit Diagnoses Not on filedocumented in this encounter Care Teams Used Car Renovator Relationship Specialty Start Date End Date Nivia Tinsley MD [address] [place], [place] [phone] PCP - General Family Medicine - Primary Care 08/27/19 Reagan Pickett MD [address] [place] [address] Cardiovascular Disease 09/01/19 0 Zheng Tapia MD [address] [place] [address] [address] [place] [address] Internal Medicine - Primary Care 09/01/19 Shazia Burks MD [address] [place], [place] [address] Neurology 09/01/19 Tony Baron OD [address] [place] [phone] Heart Specialist 09/01/19 documented as of this encounter
--- OUTSIDE RECORDS SUMMARY | 2024-04-29 18:28 | XMS_ITS | Encounter Summary ---
Author Organization [facility] Address [address] [place] [address] Care Team Providers Care Manager Internship Name Role Phone Nivia Tinsley MD Primary Care Provider Reagan Pickett MD Unavailable [phone] Zheng Tapia MD Unavailable Shazia Burks MD Unavailable [phone] Tony Baron OD Unavailable [phone] Encounter Details Date Type Department Care Team (Late st Contact Info) Description 01/21/2020 Orders Only [facility] Cardiology Clinic [address] [place] [address] Keira Paniagua MD 130 [facility] [address] [place] [address] CVA (cerebral vascular accident) ([facility]) (Primary Dx); PAF (paroxysmal atrial fibrillation) (HCC-CMS) Social History Tobacco Use Types Packs/Day Years [...] 06/11/2024 12:45 EDT Office Visit [facility] Ophthalmology - [address] [phone] Santiago Anthony MD [address] [place] [address] 5 [place] [address] 07/15/2024 10:[address] [facility] Cardiology Clinic [address] [place] [address] Gianfranco Flowers MD 130 [facility] [address] [place] [address] documented as of this encounter Visit Diagnoses Diagnosis CVA (cerebral vascular accident) ([facility])- Primary Unspecified cerebral artery occlusion with cerebral infarction PAF (paroxysmal atrial fibrillation) ([facility]) Atrial fibrillation documented in this encounter Care Teams Manager Internship Relationship Specialty Start Date End Date Nivia Tinsley MD [address] [place] [address] PCP - General Family Medicine - Primary Care 08/27/19 Reagan Pickett MD [address] [place] [address] Cardiovascular Disease 09/01/19 0 Zheng Tapia MD [address] [place] [phone] Internal Medicine - Primary Care 09/01/19 Shazia Burks MD [address] [place] [address] Neurology 09/01/19 Tony Baron OD [address] [place] [phone] Earth Science Technical Officer 09/01/19 documented as of this encounter
--- OUTSIDE RECORDS SUMMARY | 2024-04-29 18:28 | XMS_ITS | Encounter Summary ---
Author Organization [facility] Address [address] [place] [address] Care Team Providers Care Senior Product Development Scientist Name Role Phone Nivia Tinsley MD Primary Care Provider [phone] Reagan Pickett MD Unavailable [phone] Zheng Tapia MD Unavailable Shazia Burks MD Unavailable [phone] Tony Baron OD Unavailable [phone] Reason for Visit * Reason Onset Date Comments Medications Refill 02/27/2020 Encounter Details Date Type Department Care Team (Late st Contact Info) Description 02/27/2020 Refill [facility] Integrative Family Medicine [address] [address] Sherly Kimbrough, ANA Medications Refill [...] Dispensed Refills Start Date End Da te Vit A,C & Z-Hlekpx-Zsjyjbpm 1,000 unit-200 mg-60 unit-2 mg tablet Take 1 tab by mouth daily 90 Tab 3 02/27/2020 03/29/2020 nitroGLYCERIN (NITROSTAT) 0.4 mg SL tablet Take 1 tab under the tongue every 5 minutes for persistent Chest pain, up to 3 doses. 24 Tab 02/27/2020 03/29/2020 losartan (COZAAR) 100 mg tabletIndications:Essent ial hypertension 1 tab(s) orally once a day 90 Tab 3 02/27/2020 03/29/2020 Levothyroxine 100 mcg capsule Take 1 Tab by mouth daily. 90 Cap 3 02/27/2020 03/29/2020 fluticasone propionate (FLONASE) 50 mcg/actuation nasal spray Instill 1 Dorothy into both nostrils as needed for Other. intranasally 16 g 11 02/27/2020 03/05/2020 cholecalciferol, Vitamin D3, 1,000 unit tablet Take 1 Tab by mouth daily. 90 Tab 3 02/27/2020 03/29/2020 atorvastatin (LIPITOR) 20 mg tabletIndications:Mixed hyperlipidemia 1 tab(s) orally once a day 90 Tab 3 02/27/2020 03/29/2020 atenoloL (TENORMIN) 25 mg tablet Take 1 Tab by mouth daily. 90 Tab 3 02/27/2020 03/29/2020 aspirin 81 mg EC tablet Take 1 Tab by mouth daily. 90 Tab 3 02/27/2020 03/05/2020 documented in this encounter Miscellaneous Notes * Telephone Encounter - Sherly Kimbrough, RN - 02/27/20205 EDT Med list from [facility], pt to be discharged 03/04 - needs refills sent to [facility] for bubble packs [facility] - 09/30/19 NOV -none labs - none due Protocol meds escribed to pharmacy. SHERLY KIMBROUGH RN documented in this encounter Plan of Treatment Upcoming Encounters Date Type Department Care Team (Late st Contact Info) Description 06/11/2024 12:45 EDT Office Visit [facility] Ophthalmology - [address] [address] Santiago Anthony MD [address] [place] [address], [facility] 5 [place] [address] 07/15/2024 10:45 EDT Office Visit [facility] Cardiology Clinic [address] [place] [address] Gianfranco Flowers MD 130 [facility] [address] [place] [address] documented as of this encounter Visit Diagnoses Diagnosis Mixed hyperlipidemia Essential hypertension Unspecified essential hypertension documented in this encounter Discontinued Medications Medication Sig Discontinue Reason Start Date End Da te atenolol (TENORMIN) 50 mg tabletIndications:Essen tial hypertension 1 tab(s) orally once a day 09/18/2019 02/27/2020 Cholecalciferol, Vitamin D3, 50 mcg (2,000 unit) capsule 1 tab orally once a day 10/04/2018 02/27/2020 Vit A,C & Y-Aumise-Ghxhfwfd 1,000 unit-200 mg-60 unit-2 mg tablet Take by mouth. 02/27/2020 UNABLE TO FIND Ocuvite Antioxidant Multiple Vitamins and Minerals tablet, Si tab(s) orally once a day 02/27/2020 vit C/vit E acet/lutein/min (OCUVITE LUTEIN ORAL) Take by mouth. 02/27/2020 aspirin 81 mg EC tablet Take 81 mg by mouth daily. Reorder 02/27/2020 atenoloL (TENORMIN) 25 mg tablet Take 25 mg by mouth daily. 02/27/2020 atorvastatin (LIPITOR) 20 mg tabletIndications:Mixed hyperlipidemia 1 tab(s) orally once a day Reorder 09/18/2019 02/27/2020 cholecalciferol, Vitamin D3, 1,000 unit tablet Take 1,000 Units by mouth daily. 02/27/2020 fluticasone propionate (FLONASE) 50 mcg/actuation nasal spray 1 Dorothy as needed. intranasally Reorder 02/27/2020 Levothyroxine 100 mcg capsule Take 1 Tab by mouth daily. Reorder 12/23/2019 02/27/2020 losartan (COZAAR) 100 mg tabletIndications:Essen tial hypertension 1 tab(s) orally once a day Reorder 09/18/2019 02/27/2020 nitroGLYCERIN (NITROSTAT) 0.[address] 0.4 mg under the tongue every 5 minutes as needed. for persistent Chest pain Reorder 02/27/2020 documented as of this encounter Historical Medications * This list may reflect changes made after this encounter. Medication Sig Dispensed Refills Start Date End Date vit C/vit E acet/lutein/min (OCUVITE LUTEIN ORAL) Take by mouth. 02/27/2020 Vit A,C & E-Xnyzuj-Zahwxybt 1,000 unit-200 mg-60 unit-2 mg tablet Take by mouth. 02/27/2020 cholecalciferol, Vitamin D3, 1,000 unit tablet Take 1,000 Units by mouth daily. 02/27/2020 atenoloL (TENORMIN) 25 mg tablet Take 25 mg by mouth daily. 02/27/2020 added in this encounter Care Teams Senior Product Development Scientist Relationship Specialty Start Date End Date Nivia Tinsley MD [address] [place] [address] PCP - General Family Medicine - Primary Care 08/27/19 Reagan Pickett MD [address] [place], [place] [address] Cardiovascular Disease 09/01/19 0 Zheng Tapia MD [address] [place] [address] [address] [place] [phone] Internal Medicine - Primary Care 09/01/19 Shazia Burks MD [address] [place], [place] [address] Neurology 09/01/19 Tony Baron OD [address] [place] [phone] Teacher Drama 09/01/19 documented as of this encounter
--- OUTSIDE RECORDS SUMMARY | 2024-04-29 18:28 | XMS_ITS | Encounter Summary ---
Author Organization [facility] Address [address] [place] [address] Care Team Providers Care Top Edge Beveler Name Role Phone Nivia Tinsley MD Primary Care Provider [phone] Reagan Pickett MD Unavailable [phone] Zheng Tapia MD Unavailable Shazia Burks MD Unavailable [phone] Tony Baron OD Unavailable [phone] Encounter Details Date Type Department Care Team (Late st Contact Info) Description 02/06/2020 Results Only [facility] - [facility] Lab - Main [place] [address] [place] [address] Des Soliz MD [facility] [address] [place] [address] Social History Tobacco Use Types Packs/Day Years [...] Office Visit [facility] Ophthalmology [address] [address] Santiago Anthony MD [address] [place] [address], [facility] 5 [place] [address] 07/15/2024 10:45 EDT Office Visit [facility] [address] [place] [address] Gianfranco Flowers MD 130 [facility] [address] [place] [address] documented as of this encounter Procedures Procedure Name Priority Date/Time Associated Diagnosis Comments URINALYSIS - [facility] Routine 02/06/2020 6:10 EDT documented in this encounter Results * URINALYSIS - [facility] (02/06/2020 6:10 EDT) URINE APPEARANCE - [facility] Clear CLEAR 02/06/2020 12:52 EDT [facility] URINE BILIRUBIN - DIP[place] - [facility] Negative NEGATIVE 02/06/2020 12:52 EDT [facility] URINE BLOOD - [facility] Negative NEG 02/06/2020 12:52 EDT [facility] URINE COLOR - [facility] Yellow YELLOW 02/06/2020 12:52 EDT [facility] URINE GLUCOSE - [place] - [facility] Negative NEGATIVE 02/06/2020 12:52 EDT [facility] URINE KETONE - [facility] Negative NEGATIVE 02/06/2020 12:52 EDT [facility] URINE LEUK ESTERASE - [facility] Negative NEG 02/06/2020 12:52 EDT [facility] URINE NITRITE - [place] - [facility] Negative NEG 02/06/2020 12:52 EDT [facility] URINE PH - [facility] 6.5 4[facility]0 - 8.0 0 12[facility] PROTEIN - [place] - [facility] Negative NEG 02/06/2020 12:52 [facility] URINE SPECIFIC GRAVITY - [facility] 1.015 1.001 - 1.035 02/06/2020 12:52 [facility] URINE UROBILINOGEN - [place] - [facility] 0.2 0.2 - 1.0 02/06/2020 12:52 T [facility] 02/06/2020 6:10 EDT 02/06/2020 11:38 EDT Des Soliz MD CHEMISTRY & BL OOD GAS ORDERABLES [facility] documented in this encounter Visit Diagnoses Not on filedocumented in this encounter Care Teams Top Edge Beveler Relationship Specialty Start Date End Date Nivia Tinsley MD [address] [place] [address] PCP - General Family Medicine - Primary Care 08/27/19 Reagan Pickett MD [address] [place] [address] Cardiovascular Disease 09/01/19 0 Zheng Tapia MD [address] [place] [address] [address] [place] [phone] Internal Medicine - Primary Care 09/01/19 Shazia Burks MD [address] [place] [address] Neurology 09/01/19 Tony Baron, FRANCK [address] [place] [phone] Cigar Packer And Grader 09/01/19 documented as of this encounter
--- OUTSIDE RECORDS SUMMARY | 2024-04-29 18:28 | XMS_ITS | Encounter Summary ---
Author Organization [facility] Address [address] [place] [address] Care Team Providers Care Family Law Attorney Name Role Phone Nivia Tinsley MD Primary Care Provider Reagan Pickett MD Unavailable [phone] Zheng Tapia MD Unavailable Shazia Burks MD Unavailable Tony Baron OD Unavailable [phone] Keira Paniagua MD Unavailable Siva Perkins MD Unavailable [phone] Sheryl Schwab RN Unavailable Ladonna Candelario Unavailable Unavailable Encounter Details Date Type Department Care Team (Late st Contact Info) Description 02/04/2020 Lab Requisition [facility] Pathology & Laboratory Medicine - [facility] [address] [place] [address] Nivia Tinsley MD [address] [place] [phone] Encounter for screening for other viral diseases [...] Info) Description 06/11/2024 12:45 EDT Office Visit [facility] Ophthalmology [address] [address] Santiago Anthony MD [address] [place] [address] 5 [place] [address] 07/15/2024 10:45 EDT Office Visit [facility] Cardiology Clinic [address] [place], [place] [address] Gianfranco Flowers MD [address] [place] [address] [address] [place] [phone] documented as of this encounter Procedures Procedure Name Priority Date/Time Associated Diagnosis Comments DO NOT ORDER STANDALONE - THOR COVID TESTING Today 02/04/2020 8:30 EDT Encounter for screening for other viral diseases COVID-19 TESTING Today 02/04/2020 8:30 EDT Encounter for screening for other viral diseases documented in this encounter Results * DO NOT ORDER STANDALONE - THOR COVID TESTING (02/04/2020 8:30 EDT) COVID-19 rt-PCR Result Not Detected Not Detected 02/05/2020 15:20 EDT [facility] Comment: This test has not been [...] Section 564(b)(1) of the Act, 21 U.S.C. ?? 360bbb-3(b)(1), unless the authorization is terminated or revoked sooner. ??Factsheets for healthcare providers: ??https://www.fda.gov/media/315840/download Factsheets for patients: https://www.fda.gov/media/897333/download Negative results do not preclude infection with SARS-CoV-2 virus, and should not be the sole basis of a patient management decision. Swab ENTIRE NASOPHARYNX / Unknown 02/04/2020 8:30 EDT 02/04/2020 20:24 EDT Nivia Tinsley MD MICROBIOLOGY - [facility] ORDERABLES [facility] [address] [place] [address] * COVID-19 TESTING (02/04/2020 8:30 EDT) COVID-19 rt-PCR Result Not Detected Not Detected 02/05/2020 15:37 EDT [facility] Comment: This test has not been [...] Section 564(b)(1) of the Act, 21 U.S.C. ?? 360bbb-3(b)(1), unless the authorization is terminated or revoked sooner. ??Factsheets for healthcare providers: ??https://www.fda.gov/media/668964/download Factsheets for patients: https://www.fda.gov/media/890753/download Negative results do not preclude infection with SARS-CoV-2 virus, and should not be the sole basis of a patient management decision. Performing Lab [facility] 02/05/2020 15:37 EDT [facility] Swab ENTIRE NASOPHARYNX / Unknown 02/04/2020 8:30 EDT 02/04/2020 20:24 EDT Nivia Tinsley MD MICROBIOLOGY - [facility] ORDERABLES [facility] [address] [place] [address] [facility] [address] [place], [place] [address] documented in this encounter Visit Diagnoses Diagnosis Encounter for screening for other viral diseases documented in this encounter Additional Health Concerns Infection Onset Date Last Indicated Resolved Time R/O COVID-19 Comment:Covid neg. 02/21/2022 02/21/2022 02/21/2022 10:07 EDT Rule-Out C. difficile 02/21/2022 02/21/20222021 14:01 EDT documented as of this encounter Care Teams Family Law Attorney Relationship Specialty Start Date End Date Nivia Tinsley MD [address] [place] [address] PCP - General Family Medicine - Primary Care 08/27/19 Reagan Pickett MD [address] [place] [address] Cardiovascular Disease 09/01/19 0 Zheng Tapia MD [address] [place] [address] [address] [place] [address] Internal Medicine - Primary Care 09/01/19 Shazia Burks MD [address] [place] [address] Neurology 09/01/19 Tony Baron, FRANCK [address] [place] [phone] Hooker Up 09/01/19 Keira Paniagua MD [address] [place] [address] [address] [place] [address] Cardiovascular Disease 09/06/20 Siva Perkins MD [address] [place] [address] Neurology 09/06/20 Sheryl Schwab, ANA [address] [place] [phone] Radiology Resident 01/23/24 01/23/24 Ladonna Candelario Radiology Resident 01/23/24 documented as of this encounter
--- OUTSIDE RECORDS SUMMARY | 2024-04-29 18:28 | XMS_ITS | Encounter Summary ---
Author Organization [facility] Address [address] [place] [address] Care Team Providers Care Merchant Mill Utility Worker Name Role Phone Nivia Tinsley MD Primary Care Provider Reagan Pickett MD Unavailable Zheng Tapia MD Unavailable Shazia Burks MD Unavailable [phone] Tony Baron OD Unavailable [phone] Encounter Details Date Type Department Care Team (Late st Contact Info) Description 02/10/2020 Results Only [facility] Neurology - [address] [place] [address] Concetta Smith [address] [place], [place] [address] Social History Tobacco Use Types Packs/Day Years [...] Visit [facility] Ophthalmology - [address] [address] Santiago Anthony MD [address] [place] [address], [address] [place] [address] 07/15/2024 10:45 EDT Office Visit [facility] Cardiology Clinic [address] [place] [address] Gianfranco Flowers MD 130 [facility] [address] [place] [address] documented as of this encounter Procedures Procedure Name Priority Date/Time Associated Diagnosis Comments HEMOGLOBIN A1C Routine 02/10/2020 11:40 EDT COMPREHENSIVE METABOLIC PANEL (CMP) Routine 02/10/2020 11:40 EDT documented in this encounter Results * (ABNORMAL) HEMOGLOBIN A1C (02/10/2020 11:40 EDT) Hemoglobin A1c 6.3(H) 4.0 - 6.0 % 02/11/2020 11:46 EDT [facility] Comment: > or =18 years: ??Increased risk for diabetes (prediabetes): 5.7-6.4% Diabetes: > or =6.5% Therapeutic goals for glycemic control (ADA) Adults: - Goal of therapy: <7.0% HbA1c - Action suggested: >8.0% HbA1c Pediatric patients: - Toddlers and preschoolers: <8.5% (but >7.5%) - School age (6-12 years): <8% - Adolescents and young adults (13-19 years): <7.5% Est Avg Glucose 134 mg/dL 0 11:46 EDT [facility] 02/10/2020 11:4 0 EDT 02/10/2020 16:38 EDT Concetta Narayan [place] CHEMISTRY & BLOOD GA S ORDERABLES [facility] * (ABNORMAL) COMPREHENSIVE METABOLIC PANEL (CMP) (02/10/2020 11:40 EDT) Pathologist [facility] Albumin % 3.8 3.4 - 4.9 g/dL 02/10/2020 18:08 EDT [facility] ALKALINE PHOSPHATASE - [facility] 102 38 - 126 U/L 02/10/2020 18:08 [facility] BILIRUBIN TOTAL 0.7 0.2 - 1.3 mg/dL 02/10/2020 18:08 [facility] BUN - [facility] 18 10 - 26 mg/dL 02/10/2020 18:[facility] CALCIUM - [facility] 9.6 8.5 - 10.5 mg/dL 02/10/2020 18:08 [facility] Chloride 101 96 - 110 mmol/L 02/10/2020 18:08 [facility] CO2 Total 24 22 - 32 mEq/L 02/10/2020 18:08 [facility] CREATININE 0.76 0.52 - 1.04 mg/dL 02/10/2020 18:08 [facility] eGFR >60 02/10/2020 18:08 [facility] Comment: Chronic renal impairment is defined as GFR <60 Multiply result by 1.210 for patients. eGFR calculated using the IDLA-traceable MDRD Study Equation. ??(effective 08/03/2014) Anion Gap 10 0 - 18 02/10/2020 18:08 [facility] GLUCOSE - [facility] 144(H) 70 - 100 mg/dL 02/10/2020 18:08 [facility] Potassium 3.8 3.5 - 5.0 mEq/L 02/10/2020 18:08 [facility] Sodium 135(L) 136 - 145 mEq/L 02/10/2020 18:08 [facility] TOTAL PROTEIN - [facility] 6.5 6.2 - 8.2 gm/dL 02/10/2020 18:08 [facility] SGOT/AST - [facility] 27 14 - 36 U/L 02/10/2020 18:08 [facility] SGPT/ALT - [facility] 25 0 - 35 U/L 0 18:08 [facility] 02/10/2020 11:4 0 EDT 02/10/2020 16:38 EDT Concetta Narayan [place] CHEMISTRY & BLOOD GA S ORDERABLES [facility] documented in this encounter Visit Diagnoses Not on filedocumented in this encounter Care Teams Merchant Mill Utility Worker Relationship Specialty Start Date End Date Nivia Tinsley MD [address] [place] [address] PCP - General Family Medicine - Primary Care 08/27/19 Reagan Pickett MD [address] [place], [place] [phone] Cardiovascular Disease 09/01/19 0 Zheng Tapia MD [address] [place] [address] [address] [place] [phone] Internal Medicine - Primary Care 09/01/19 Shazia Burks MD [address] [place], [place] 56 Neurology 09/01/19 Tony Baron OD [address] [place] [phone] Clerical Office Worker 09/01/19 documented as of this encounter
--- OUTSIDE RECORDS SUMMARY | 2024-04-29 18:28 | XMS_ITS | Encounter Summary ---
Author Organization [facility] Address [address] [place] [address] Care Team Providers Care Workers Compensation Defense Attorney Name Role Phone Nivia Tinsley MD Primary Care Provider [phone] Reagan Pickett MD Unavailable [phone] Zheng Tapia MD Unavailable Shazia Burks MD Unavailable [phone] Tony Baron OD Unavailable [phone] Reason for Visit * Reason Onset Date Comments Follow-up 01/21/2020 TCM discharge CVA Encounter Details Date Type Department Care Team (Late st Contact Info) Description 01/21/2020 Telephone [facility] Integrative Family Medicine [address] [address] Gladys Claudio, RN Follow-up (TCM discharge 01/20/2020 CVA) Social History Tobacco Use Types Packs/Day Years [...] encounter Miscellaneous Notes * Telephone Encounter - Gladys Claudio RN - 01/21/2020 1254 EDT [facility] TCM call not indicated documented in this encounter Plan of Treatment Upcoming Encounters Date Type Department Care Team (Late st Contact Info) Description 06/11/2024 12:45 EDT Office Visit [facility] Ophthalmology - [place] [address] [place], [place] [phone] Santiago Anthony MD [address] [place] [address], [place] [address] [place] [address] 07/15/2024 10:45 EDT Office Visit [facility] Cardiology Clinic [address] [place] [address] Gianfranco Flowers MD 130 [facility] MOB-A [address] [place] [address] documented as of this encounter Visit Diagnoses Not on filedocumented in this encounter Care Teams Workers Compensation Defense Attorney Relationship Specialty Start Date End Date Nivia Tinsley MD [address] [place] [address] PCP - General Family Medicine - Primary Care 08/27/19 Reagan Pickett MD [address] [place] [address] Cardiovascular Disease 09/01/19 0 Zheng Tapia MD [address] [place] [address] [address] [place] [address] Internal Medicine - Primary Care 09/01/19 Shazia Burks MD [address] [place] [address] Neurology 09/01/19 Tony Baron OD [address] [place] [phone] Bench Inspector 09/01/19 documented as of this encounter
--- OUTSIDE RECORDS SUMMARY | 2024-04-29 18:28 | XMS_ITS | Encounter Summary ---
Author Organization [facility] Address [address] [place] [address] Care Team Providers Care Technical Sales Representative Name Role Phone Nivia Tinsley MD Primary Care Provider Reagan Pickett MD Unavailable [phone] Zheng Tapia MD Unavailable Shazia Burks MD Unavailable [phone] Tony Baron OD Unavailable [phone] Keira Paniagua MD Unavailable [phone] Siva Perkins MD Unavailable [phone] Sheryl Schwab RN Unavailable Ladonna Candelario Unavailable Unavailable Encounter Details Date Type Department Care Team (Late st Contact Info) Description 01/19/2020 Lab Requisition [facility] Pathology & Laboratory Medicine - [facility] [address] [place] [address] Chasity Lepe MD 130 [facility], [address] [place] [address] Encounter for other general examination Social History [...] Visit [facility] Ophthalmology - [address] [address] Santiago Anthony MD [address] [place] [address], [place] [address] [place] [address] 07/15/2024 10:45 EDT Office Visit [facility] Cardiology Clinic [address] [place], [place] [address] Gianfranco Flowers MD [address] [place], [place] [address] [address] [place] [address] documented as of this encounter Procedures Procedure Name Priority Date/Time Associated Diagnosis Comments DO NOT ORDER STANDALONE - THOR COVID TESTING Today 01/19/2020 12:25 EDT Encounter for other general examination COVID-19 TESTING Today 01/19/2020 12:2 5 EDT Encounter for other general examination documented in this encounter Results * DO NOT ORDER STANDALONE - THOR COVID TESTING (01/19/2020 12:25 EDT) COVID-19 rt-PCR Result Not Detected 01/20/2020 16:21 EDT [facility] Comment:This test has not be en FDA cleared or approved. This test has been authorized by FDA under an EUA for use by authorized laboratories. This test has been authorized only for the [...] the authorization is terminated or revoked sooner. Factsheets for healthcare providers: https://www.fda.gov/media/044008/download Factsheets for patients: https://www.fda.gov/media/150979/download Swab ENTIRE NASOPHARYNX / Unknown 01/19/2020 12:25 EDT 01/19/2020 20:46 EDT Chasity Lepe MD MICROBIOLOGY - GENER AL ORDERABLES [facility] [address] [place], [place] [address] * COVID-19 TESTING (01/19/2020 12:25 EDT) COVID-19 rt-PCR Result Not Detected 01/20/2020 16:55 EDT [facility] Comment:This test has not be en FDA cleared or approved. This test has been authorized by FDA under an EUA for use by authorized laboratories. This test has been authorized only for the [...] the authorization is terminated or revoked sooner. Factsheets for healthcare providers: https://www.fda.gov/media/816429/download Factsheets for patients: https://www.fda.gov/media/835648/download Swab ENTIRE NASOPHARYNX / Unknown 01/19/2020 12:25 EDT 01/19/2020 20:46 EDT Chasity Lepe MD MICROBIOLOGY - GENER AL ORDERABLES Performing Organization Address City/State/[facility] Co de Phone Number [facility] [address] [place] [address] documented in this encounter Visit Diagnoses Diagnosis Encounter for other general examination documented in this encounter Additional Health Concerns Infection Onset Date Last Indicated Resolved Time R/O COVID-19 Comment:Covid neg. 02/21/2022 02/21/2022 02/21/2022 10:07 EDT Rule-Out C. difficile 02/21/2022 02/21/20222021 14:01 EDT documented as of this encounter Care Teams Technical Sales Representative Relationship Specialty Start Date End Date Nivia Tinsley MD [address] [place] [address] PCP - General Family Medicine - Primary Care 08/27/19 Reagan Pickett MD [address] [place] [phone] Cardiovascular Disease 09/01/19 0 Zheng Tapia MD [address] [place] [address] [address] [place] [phone] Internal Medicine - Primary Care 09/01/19 Shazia Burks MD [address] [place] [address] Neurology 09/01/19 Tony Baron OD [address] [place] [phone] Tobacco Drier Operator 09/01/19 Keira Paniagua MD [address] [place] [address] [address] [place] [address] Cardiovascular Disease 09/06/20 Siva Perkins MD [address] [place] [address] Neurology 09/06/20 Sheryl Schwab, ANA [address] [place] [address] Dupligraph Operator 01/23/24 01/23/24 Ladonna Candelario Dupligraph Operator 01/23/24 documented as of this encounter
--- OUTSIDE RECORDS SUMMARY | 2024-04-29 18:28 | XMS_ITS | Encounter Summary ---
Author Organization [facility] Address [address] [place] [address] Care Team Providers Care Motion Picture Film Examiner Name Role Phone Nivia Tinsley MD Primary Care Provider [phone] Reagan Pickett MD Unavailable [phone] Zheng Tapia MD Unavailable Shazia Burks MD Unavailable [phone] Tony Baron OD Unavailable [phone] Reason for Visit * Reason Onset Date Comments Extremity Weakness 01/21/2020 ZIO patch Encounter Details Date Type Department Care Team (Late st Contact Info) Description 01/21/2020 Orders Only [facility] [address] [place] [address], ANA [address] [place] [address] [address] [place] [address] Social History Tobacco Use Types Packs/Day Years [...] as of this encounter Progress Notes * Rhona Way, RN - 01/21/2020 0939 EDT Orders placed for Ziopatch. Patient being discharged from [facility] today, DX CVA documented in this encounter Plan of Treatment Upcoming Encounters Date Type Department Care Team (Late st Contact Info) Description 06/11/2024 12:45 EDT Office Visit [facility] Ophthalmology [address] [address] Santiago Anthony MD [address] [place] [address], [facility] [address] [place] [address] 07/15/2024 10:45 EDT Office Visit [facility] Cardiology Clinic [address] [place], [place] [address] Gianfranco Flowers MD 130 [facility] MOB-A [address] [place] [address] documented as of this encounter Visit Diagnoses Not on filedocumented in this encounter Care Teams Motion Picture Film Examiner Relationship Specialty Start Date End Date Nivia Tinsley MD [address] [place] [address] PCP - General Family Medicine - Primary Care 08/27/19 Reagan Pickett MD [address] [place] [address] Cardiovascular Disease 09/01/19 0 Zheng Tapia MD [address] [place] [address] [address] [place] [address] Internal Medicine - Primary Care 09/01/19 Shazia Burks MD [address] [place] [address]67 Neurology 09/01/19 Tony Baron OD [address] [place] [phone] Ssrs Developer 09/01/19 documented as of this encounter
--- OUTSIDE RECORDS SUMMARY | 2024-04-29 18:28 | XMS_ITS | Encounter Summary ---
Author Organization [facility] Address [address] [place] [address] Care Team Providers Care Africana Studies Professor Name Role Phone Nivia Tinsley MD Primary Care Provider Reagan Pickett MD Unavailable [phone] Zheng Tapia MD Unavailable Shazia Burks MD Unavailable [phone] Tony Baron OD Unavailable [phone] Reason for Visit * Reason Onset Date Comments Appointment Related 02/05/2020 f/u appt Encounter Details Date Type Department Care Team (Late st Contact Info) Description 02/05/2020 Telephone [facility] [address] [place] [address] Nivia Tinsley MD [address] [place] [address] Appointment Related (f/u appt) Social History Tobacco Use Types Packs/Day Years [...] * Telephone Encounter - Aracelis Garcia - 02/05/2020 0939 EDT Tried to reach patient (3rd attempt) to reschedule f/u appt for pre- DM,HTN,thyroid w/RC - phone just rings busy. Letter mailed to patient. documented in this encounter Plan of Treatment Upcoming Encounters Date Type Department Care Team (Late st Contact Info) Description 06/11/2024 12:45 EDT Office Visit [facility] Ophthalmology [facility] [address] [place] [address] Santiago Anthony MD [address] [place] [address], [facility] [address] [place] [address] 07/15/2024 10:45 EDT [facility] Visit [facility] Cardiology Clinic [address] [place], [place] [address] Gianfranco Flowers MD [address] [facility] [address] [place] [phone] documented as of this encounter Visit Diagnoses Not on filedocumented in this encounter Care Teams Africana Studies Professor Relationship Specialty Start Date End Date Nivia Tinsley MD [address] [place] [address] PCP - General Family Medicine - Primary Care 08/27/19 Reagan Pickett MD [address] [place] [address] Cardiovascular Disease 09/01/19 0 Zheng Tapia MD [address] [place] [address] [address] [place] [address] Internal Medicine - Primary Care 09/01/19 Shazia Burks MD [address] [place] [address] Neurology 09/01/19 Tony Baron OD [address] [place] [phone] Maintenance Worker House Trailer 09/01/19 documented as of this encounter
--- OUTSIDE RECORDS SUMMARY | 2024-04-29 18:28 | XMS_ITS | Encounter Summary ---
Author Organization [facility] Address [address] [place] [address] Care Team Providers Care Intermediate Designer Name Role Phone Nivia Tinsley MD Primary Care Provider Reagan Pickett MD Unavailable [phone] Zheng Tapia MD Unavailable Shazia Burks MD Unavailable [phone] Tony Baron OD Unavailable [phone] Reason for Visit * Reason Onset Date Comments Results 01/21/2020 COVID19 test res ult Encounter Details Date Type Department Care Team (Late st Contact Info) Description 01/21/[address] [place], [place] [address] Beata Rodríguez RN Results (COVID19 test result) Social History Tobacco Use Types Packs/Day Years [...] Miscellaneous Notes * Telephone Encounter - Beata Rodríguez RN - 01/21/2020 1042 EDT Patient is at [facility] and spoke with Larisa. Advised patient tested negative for COVID19. AWhiteRN documented in this encounter Plan of Treatment Upcoming Encounters Date Type Department Care Team (Late st Contact Info) Description 06/11/2024 12:45 EDT Office Visit [facility] Ophthalmology - [address] [address] Santiago Anthony MD [address] [place] [address] 5 [place] [address] 07/15/2024 10:45 EDT Office Visit [facility] Cardiology Clinic [address] [place], [place] [address] Gianfranco Flowers MD 130 [facility] [address] [place] [address] documented as of this encounter Visit Diagnoses Not on filedocumented in this encounter Care Teams Intermediate Designer Relationship Specialty Start Date End Date Nivia Tinsley MD [address] [place], [place] [phone] PCP - General Family Medicine - Primary Care 08/27/19 Reagan Pickett MD [address] [place] [address] Cardiovascular Disease 09/01/19 0 Zheng Tapia MD [address] [place] [address] [address] [place] [address] Internal Medicine - Primary Care 09/01/19 Shazia Burks MD [address] [place] [address] Neurology 09/01/19 Tony Baron OD [address] [place] [phone] Storage Management Consultant 09/01/19 documented as of this encounter
--- OUTSIDE RECORDS SUMMARY | 2024-04-29 18:29 | XMS_ITS | Encounter Summary ---
Author Organization [facility] Address [address] [place] [address] Care Team Providers Care Exceptional Needs Teacher Name Role Phone Nivia Tinsley MD Primary Care Provider Reagan Pickett MD Unavailable [phone] Zheng Tapia MD Unavailable Shazia Burks MD Unavailable [phone] Tony Baron OD Unavailable [phone] Reason for Visit * Reason Onset Date Comments Labs Only 12/18/2019 Ok to hold off o n labs for now? Encounter Details Date Type Department Care Team (Late st Contact Info) Description 12/18/2019 Telephone [facility] Integrative Family Medicine [employer] [address] [place] [address] Nivia Tinsely MD [address] [place] [address] Labs Only (Ok to hold off on labs for now?) Social History Tobacco Use Types Packs/Day Years [...] Miscellaneous Notes * Telephone Encounter - Felicia Byole LPN - 12/18/2019 1055 EDT Pt advised ok to wait on labs * Telephone Encounter - Melani Kidd - 12/18/2019 1039 EDT Pt called and doesn't want to go to the hospital to have her labs drawn. RC told her to have them done by December 30. Is it ok if she holds off for now or come into the office to have them drawn? documented in this encounter Plan of Treatment Upcoming Encounters Date Type Department Care Team (Late st Contact Info) Description 06/11/2024 12:45 EDT Office Visit [facility] Ophthalmology - [place] [address] [place], [place] [phone] Santiago Anthony MD 111 [facility] 5 [place] [address] 07/15/2024 10:45 EDT Office Visit [facility] Cardiology Clinic [address] [place], [place] [address] Gianfranco Flowers MD 130 [facility] [address] [place] [address] documented as of this encounter Visit Diagnoses Not on filedocumented in this encounter Care Teams Exceptional Needs Teacher Relationship Specialty Start Date End Date Nivia Tinsley MD [address] [place] [address] PCP - General Family Medicine - Primary Care 08/27/19 Reagan Pickett MD [address] [place] [address] Cardiovascular Disease 09/01/19 0 Zheng Tapia MD [address] [place] [address] [address] [place] [address] Internal Medicine - Primary Care 09/01/19 Shazia Burks MD [address] [place], [place] [address] Neurology 09/01/19 Tony Baron OD [address] [place] [address] Imaging Specialist 09/01/19 documented as of this encounter
--- OUTSIDE RECORDS SUMMARY | 2024-04-29 18:29 | XMS_ITS | Encounter Summary ---
Author Organization [facility] Address [address] [place] [address] Care Team Providers Care Digital Advertising Analyst Name Role Phone Nivia Tinsley MD Primary Care Provider Reagan Pickett MD Unavailable [phone] Zheng Tapia MD Unavailable Shazia Burks MD Unavailable Tony Baron OD Unavailable [phone] Keira Paniagua MD Unavailable Siva Perkins MD Unavailable [phone] Sheryl Schwab RN Unavailable Ladonna Candelario Unavailable Unavailable Encounter Details Date Type Department Care Team (Late st Contact Info) Description 01/18/2020 Results Only Imaging [facility] Radiology Results [address] [place] [address] Katie Brand MD [address] [place] [phone] Social History Tobacco Use Types Packs/Day Years [...] Office Visit [facility] Ophthalmology - [place] [address] [place] [address] Santiago Anthony MD [address] [place] [address], [facility] 5 [place] [address] 07/15/2024 10:45 EDT Office Visit [facility] Cardiology Clinic [address] [place], [place] [address] Gianfranco Flowers MD 130 [facility] [address] [place] [address] documented as of this encounter Procedures Procedure Name Priority Date/Time Associated Diagnosis Comments CT HEAD WO CONTRAST 01/18/2020 1 6:15 EDT documented in this encounter Results * CT HEAD WO CONTRAST (01/18/2020 16:15 EDT) Anatomical Region Laterality Modality Head Computed Tomogra phy 01/18/2020 16:1 2 EDT Narrative 01/18/2020 16:15 EDT ? EXAM: CAT SCAN/HEAD WITHOUT CONTRAST ?EX. D/ (1556) ? CLINICAL INFORMATION: ? worsening symptoms of CVA ? HEAD WITHOUT CONTRAST ? Signs and Symptoms/Comments: ??worsening symptoms of CVA ? Comparison: MR brain on 01/17/2020, 01/08/2015, 02/06/2011. MRA head and ? neck on 01/17/2020. CT head on 01/17/2020, 01/08/2015. CTA head on ? 02/16/2015. ? Technique: Noncontrast CT head was performed with multiplanar ? reformations. ? FINDINGS: ? Brain: A small partially calcified lesion in the right parietal lobe ? is stable compared to 2015, measuring approximately 2 cm (axial ? series 2 image 40). This demonstrated features favoring a vascular ? malformation on the comparison contrast-enhanced MR of 02/06/2011. No ? new intracranial mass or hemorrhage is identified. No acute mass ? effect or midline shift is present. The basal cisterns are patent. ? Mild-moderate global parenchymal atrophy and ex vacuo ? ventriculomegaly have mildly progressed compared to 2015. ? Progressive focal hypodensity in the left thalamus is compatible with ? expected evolution of an ischemic infarct documented on yesterday's ? MR (axial series 2 image 31). Small old infarcts are suspected in the ? gabe, bilateral basal ganglia, supratentorial white matter and ? cerebellar hemispheres. No definite new infarct is visible compared ? to yesterday, however MR would be more sensitive. Prominent patchy ? hypoattenuation in the supratentorial white matter is nonspecific, ? but similar to 2015, perhaps reflecting sequela of advanced chronic ? microvascular disease in this patient. Calcified atherosclerotic ? plaque is present. Please see yesterday's MR report for for important ? vascular findings. ? Orbits: Bilateral intraocular lens placements are present. No acute ? orbital findings are present. ? Paranasal sinuses: A left mastoid sinus mucosal retention cyst is ? present. ? Middle ear cavities ?? mastoid air cells: The mastoid air cells and ? middle ear cavities are unremarkable. ? Bones: The osseous structures are unremarkable. ? Extracranial soft tissues: Unremarkable. ? IMPRESSION: ? 1. ??Expected evolution of an acute-early subacute left thalamic ? infarct. No evidence of hemorrhagic conversion at this time. ? PAGE 1 ? Signed Report ? (CONTINUED) ? 2. ??No definite new infarct is visible compared to yesterday, however ? MR would be more sensitive ? 3. ??Old-appearing lacunar infarcts in gabe, basal ganglia, ? supratentorial white matter and cerebellum. ? 4. ??Known chronic basilar artery occlusion, better depicted on ? yesterday's MRA. ? 5. ??Stable 2 cm right parietal lesion, likely a vascular ? malformation. ? 6. ??Additional findings detailed above. ? REPORT SIGNED IN OTHER VENDOR SYSTEM 01/18/2020 ?Reported By: Jameson Calderon MD ? CC: ? Transcribed Date/Time: 01/18/2020 (1915) ? [employer] D[employer]: ? Printed Date/Time: 01/18/2020 (1445) ? PAGE 2 ? Signed Report ? Procedure Note Jameson Calderon MD - 01/18/2020 EXAM: CAT SCAN/HEAD WITHOUT CONTRAST EX. D/ (8276) CLINICAL INFORMATION: worsening symptoms of CVA HEAD WITHOUT CONTRAST Signs and Symptoms/Comments: worsening symptoms of CVA Comparison: MR brain on 01/17/2020, 01/08/2015, 02/06/2011. MRA headand neck on 01/17/2020. CT head on 01/17/2020, 01/08/2015. CTA head on 02/16/2015. Technique: Noncontrast CT head was performed with multiplanar reformations. FINDINGS: Brain: A small partially calcified lesion in the right parietallobe is stable compared to 2015, measuring approximately 2 cm (axial series 2 image 40). This demonstrated features favoring a vascular malformation on the comparison contrast-enhanced MR of 02/06/2011. No new intracranial mass or hemorrhage is identified. No acute mass effect or midline shift is present. The basal cisterns are patent. Mild-moderate global parenchymal atrophy and ex vacuo ventriculomegaly have mildly progressed compared to 2015. Progressive focal hypodensity in the left thalamus is compatiblewith expected evolution of an ischemic infarct documented on yesterday's MR (axial series 2 image 31). Small old infarcts are suspected inthe gabe, bilateral basal ganglia, supratentorial white matter and cerebellar hemispheres. No definite new infarct is visible compared to yesterday, however MR would be more sensitive. Prominent patchy hypoattenuation in the supratentorial white matter is nonspecific, but similar to 2015, perhaps reflecting sequela of advanced chronic microvascular disease in this patient. Calcified atherosclerotic plaque is present. Please see yesterday's MR report for forimportant vascular findings. Orbits: Bilateral intraocular lens placements are present. No acute orbital findings are present. Paranasal sinuses: A left mastoid sinus mucosal retention cyst is present. Middle ear cavities mastoid air cells: The mastoid air cells and middle ear cavities are unremarkable. Bones: The osseous structures are unremarkable. Extracranial soft tissues: Unremarkable. IMPRESSION: 1. Expected evolution of an acute-early subacute left thalamic infarct. No evidence of hemorrhagic conversion at this time. PAGE 1 Signed Report (CONTINUED) 2. No definite new infarct is visible compared to yesterday,however MR would be more sensitive 3. Old-appearing lacunar infarcts in gabe, basal ganglia, supratentorial white matter and cerebellum. 4. Known chronic basilar artery occlusion, better depicted on yesterday's MRA. 5. Stable 2 cm right parietal lesion, likely a vascular malformation. 6. Additional findings detailed above. REPORT SIGNED IN OTHER VENDOR SYSTEM 01/18/2020 Reported By: Jameson Calderon MD CC: Transcribed Date/Time: 01/18/2020 (8060) [employer]: Printed Date/Time: 01/18/2020 (7872) PAGE 2 Signed Report Katie Brand MD IMG CT ORDERABLES documented in this encounter Visit Diagnoses Not on filedocumented in this encounter Additional Health Concerns Infection Onset Date Last Indicated Resolved Time R/O COVID-19 Comment:Covid neg. 02/21/2022 02/21/2022 02/21/2022 10:07 EDT Rule-Out C. difficile 02/21/2022 02/21/20222021 14:01 EDT documented as of this encounter Care Teams Digital Advertising Analyst Relationship Specialty Start Date End Date Nivia Tinsley MD [address] [place], [place] [address] PCP - General Family Medicine - Primary Care 08/27/19 Reagan Pickett MD [address] [place], [place] [address] Cardiovascular Disease 09/01/19 0 Zheng Tapia MD [address] [place] [address] [address] [place] [address] Internal Medicine - Primary Care 09/01/19 Shazia Burks MD [address] [place] [address] Neurology 09/01/19 Tony Baron OD [address] [place] [phone] Doctor Of Audiology 09/01/19 Keira Paniagua MD [address] [place] [address] [address] [place] [phone] Cardiovascular Disease 09/06/20 Siva Perkins MD [address] [facility] [place] [address] Neurology 09/06/20 Sheryl Schwab, ANA [address] [place], [place] [address] Business Continuity Specialist 01/23/24 01/23/24 Ladonna Candelario Business Continuity Specialist 01/23/24 documented as of this encounter
--- OUTSIDE RECORDS SUMMARY | 2024-04-29 18:29 | XMS_ITS | Encounter Summary ---
Author Organization [facility] Address [address] [place] [address] Care Team Providers Care Manager Utility Name Role Phone Nivia Tinsley MD Primary Care Provider Reagan Pickett MD Unavailable Zhegn Tapia MD Unavailable Shazia Burks MD Unavailable Tony Baron OD Unavailable [phone] Keira Paniagua MD Unavailable [phone] Siva Perkins MD Unavailable [phone] Sheryl Schwab RN Unavailable Ladonna Candelario Unavailable Unavailable Encounter Details Date Type Department Care Team (Late st Contact Info) Description 10/17/2019 Results Only Imaging [facility] Radiology Results [address] [place], [place] [address] Nivia Tinsley MD [address] [address] Social History Tobacco Use Types Packs/Day [...] Description 06/11/2024 12:45 EDT Office Visit [facility] Ophthalmology - [place] [address] [place] [address] Santiago Anthony MD [address] [place] [address], [facility] 5 [place] [address] 07/15/2024 10:45 EDT Office [facility] [address] [place], [place] [address] Gianfranco Flowers MD 130 [facility] [address] [place] [address] documented as of this encounter Procedures Procedure Name Priority Date/Time Associated Diagnosis Comments MA BREAST SCREENING LEANN BILATERAL 10/17/2019 14:12 EST documented in this encounter Results * MA BREAST SCREENING LEANN BILATERAL (10/17/2019 14:12 EST) Anatomical Region Laterality Modality Breast Bilateral Mammography 10/17/2019 14:1 2 EST Narrative 10/17/2019 14:12 EST ? EXAM: MAMMOGRAM/MAMMO BILATERAL SCREEN W ??EX. D/ (1130) ? CLINICAL INFORMATION: ? Z12.31 SCREENING ? INDICATION: Z12.31 SCREENING SCREENING Oct 15 ? TECHNIQUE: ??Full field digital whole breast 2D (C-view) and 3D CC and ? MLO views of both breasts were obtained. CAD technology was utilized. ? FINDINGS: There is a possible nodular density in the central right ? breast. The remaining breast parenchyma is unremarkable on the right ? and left. No architectural distortion or suspicious calcifications ? are seen. There are scattered areas of fibroglandular density. ? IMPRESSION: ? 1. This is a right breast mammogram with additional imaging required ? (ACR category 0). There is a possible central breast density, for ? which further imaging is required. ? 2. This is a negative left breast mammogram (ACR category 1). Left ? breast screening mammography is recommended in one year. ? FINAL ASSESSMENT: ??RIGHT BREAST - BI-RADS Category 0 - Incomplete; ? additional imaging evaluation needed. ? FINAL ASSESSMENT: ??LEFT BREAST - BI-RADS Category 1 - Negative. ? These results will be communicated to your patient via a lay letter ? from Radiology. ??If any additional imaging is needed we will contact ? your patient directly. ? REPORT SIGNED IN OTHER VENDOR SYSTEM 10/17/2019 ?Reported By: Parvez Olivier MD ? CC: ? Transcribed Date/Time: 10/17/2019 (1412) ? Grooving Lathe Tender: ? Printed Date/Time: 10/17/2019 (1532) ? PAGE 1 ? Signed Report ? Procedure Note Parvez Olivier MD - 10/17/2019 EXAM: MAMMOGRAM/MAMMO BILATERAL SCREEN W EX. D/ (1130) CLINICAL INFORMATION: Z12.31 SCREENING INDICATION: Z12.31 SCREENING SCREENING Oct 15 TECHNIQUE: Full field digital whole breast 2D (C-view) and 3D CCand MLO views of both breasts were obtained. CAD technology wasutilized. FINDINGS: There is a possible nodular density in the central right breast. The remaining breast parenchyma is unremarkable on theright and left. No architectural distortion or suspicious calcifications are seen. There are scattered areas of fibroglandular density. IMPRESSION: 1. This is a right breast mammogram with additional imagingrequired (ACR category 0). There is a possible central breast density, for which further imaging is required. 2. This is a negative left breast mammogram (ACR category 1). Left breast screening mammography is recommended in one year. FINAL ASSESSMENT: RIGHT BREAST - BI-RADS Category 0 - Incomplete; additional imaging evaluation needed. FINAL ASSESSMENT: LEFT BREAST - BI-RADS Category 1 - Negative. These results will be communicated to your patient via a lay letter from Radiology. If any additional imaging is needed we willcontact your patient directly. REPORT SIGNED IN OTHER VENDOR SYSTEM 10/17/2019 Reported By: Parvez Olivier MD CC: Transcribed Date/Time: 10/17/2019 (1412) Grooving Lathe Tender: Printed Date/Time: 10/17/2019 (6166) PAGE 1 Signed Report Nivia Tinsley MD IMG MAMMOGRAPHY ORD ERABLES documented in this encounter Visit Diagnoses Not on filedocumented in this encounter Additional Health Concerns Infection Onset Date Last Indicated Resolved Time R/O COVID-19 Comment:Covid neg. 02/21/2022 02/21/2022 02/21/2022 10:07 EDT Rule-Out C. difficile 02/21/2022 02/21/20222021 14:01 EDT documented as of this encounter Care Teams Manager Utility Relationship Specialty Start Date End Date Nivia Tinsley MD [address] [place], [place] [phone] PCP - General Family Medicine - Primary Care 08/27/19 Reagan Pickett MD [address] [place] [phone] Cardiovascular Disease 09/01/19 0 Zhegn Tapia MD [address] [place] [address] [address] [place] [phone] Internal Medicine - Primary Care 09/01/19 Shazia Burks MD [address] [place], [place] [address] Neurology 09/01/19 Tony Baron OD [address] [place] [phone] Founder / Ceo 09/01/19 Keira Paniagua MD [address] [facility] [address] [place] [address] Cardiovascular Disease 09/06/20 Siva Perkins MD [address] [facility] [place] [address] Neurology 09/06/20 Sheryl Schwab, RN [address] [place] [address] Gasoline Tester 01/23/24 01/23/24 Ladonna Candelario Gasoline Tester 01/23/24 documented as of this encounter
--- OUTSIDE RECORDS SUMMARY | 2024-04-29 18:29 | XMS_ITS | Encounter Summary ---
Author Organization [facility] Address [address] [place] [address] Care Team Providers Care Shag Truck Driver Name Role Phone Nivia Tinsley MD Primary Care Provider Reagan Pickett MD Unavailable Zheng Tapia MD Unavailable Shazia Burks MD Unavailable Tony Baron OD Unavailable Keira Paniagua MD Unavailable Siva Perkins MD Unavailable [phone] Sheryl Schwab RN Unavailable Ladonna Candelario Unavailable Unavailable Encounter Details Date Type Department Care Team (Late st Contact Info) Description 01/16/2020 Results Only Imaging [facility]iology Clinic [address], [place] [address] Liu Machuca MD Social History Tobacco Use Types Packs/Day Years [...] Info) Description 06/11/2024 12:45 EDT Office Visit [facility] Ophthalmology [address] [address] Santiago Anthony MD [address] [place] [address] [address] [place] [address] 07/15/2024 10:45 EDT Office Visit [facility]iology [facility] [address] [place] [address] Gianfranco Flowers MD [address] [facility] [address] [place] [address] documented as of this encounter Procedures Procedure Name Priority Date/Time Associated Diagnosis Comments XR CHEST 2 VIEWS 01/16/2020 12:5 7 EDT XR KNEE 4 OR MORE VIEWS 01/16/2020 12:56 EDT EKG 12-LEAD 01/16/2020 10:24 EDT documented in this encounter Results * XR CHEST 2 VIEWS (01/16/2020 12:57 EDT) Anatomical Region Laterality Modality Other 01/16/2020 12:5 4 EDT Narrative 01/16/2020 12:57 EDT ? EXAM: RADIOLOGY/CHEST PA ?? LAT ?EX. D/ (1205) ? CLINICAL INFORMATION: ? Chronic dry cough/low O2 sats ? CHEST PA ?? LAT ? Signs and Symptoms/Comments: ??Chronic dry cough/low O2 sats ? Comparisons: 01/23/2018. CTA Neck on 02/16/2015. ? FINDINGS: ? AP and lateral views of the chest were performed. Mild elevation of ? the right hemidiaphragm is chronic. The lungs are clear. No ? pneumothorax or pleural effusion is present. The cardiomediastinal ? silhouette and pulmonary vascularity are normal. There is no ? convincing evidence of acute congestive heart failure. Chronic mild ? mid thoracic compression fractures are present. Advanced multilevel ? thoracic spondylosis is present. ? IMPRESSION: ? No acute cardiopulmonary process. ? REPORT SIGNED IN OTHER VENDOR SYSTEM 01/16/2020 ?Reported By: Jameson Calderon MD ? CC: ? Transcribed Date/Time: 01/16/2020 (1257) ? Fire Apparatus Sprinkler Inspector: ? Printed Date/Time: 01/16/2020 (1257) ? PAGE 1 ? Signed Report ? Procedure Note Jameson Calderon MD - 01/16/2020 EXAM: RADIOLOGY/CHEST PA LAT EX. D/ (1205) CLINICAL INFORMATION: Chronic dry cough/low O2 sats CHEST PA LAT Signs and Symptoms/Comments: Chronic dry cough/low O2 sats Comparisons: 01/23/2018. CTA Neck on 02/16/2015. FINDINGS: AP and lateral views of the chest were performed. Mild elevation of the right hemidiaphragm is chronic. The lungs are clear. No pneumothorax or pleural effusion is present. The cardiomediastinal silhouette and pulmonary vascularity are normal. There is no convincing evidence of acute congestive heart failure. Chronic mild mid thoracic compression fractures are present. Advanced multilevel thoracic spondylosis is present. IMPRESSION: No acute cardiopulmonary process. REPORT SIGNED IN OTHER VENDOR SYSTEM 01/16/2020 Reported By: Jameson Calderon MD CC: Transcribed Date/Time: 01/16/2020 (1257) Fire Apparatus Sprinkler Inspector: Printed Date/Time: 01/16/2020 (7093) PAGE 1 Signed Report Liu Machuca MD IMG DIAGNOSTIC IMAGI NG ORDERABLES * XR KNEE 4 OR MORE VIEWS (01/16/2020 12:56 EDT) Anatomical Region Laterality Modality Lower Extremities Radiographic I maging 01/16/2020 12:5 2 EDT Narrative 01/16/2020 12:56 EDT ? EXAM: RADIOLOGY/KNEE COMPLETE RT 4+VIEW ?? EX. D/ (1205) ? CLINICAL INFORMATION: ? Fall/contusion/pain ? KNEE COMPLETE RT 4+VIEW ? Signs and Symptoms/Comments: ??Fall/contusion/pain ? Comparison: 10/15/2019. ? FINDINGS: ? Right knee: 4 views were performed. No acute fracture or malalignment ? is identified. 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 No significant joint ? effusion is visible. ? IMPRESSION: ? No fracture identified. ? REPORT SIGNED IN OTHER VENDOR SYSTEM 01/16/2020 ?Reported By: Jameson Calderon MD ? CC: ? Transcribed Date/Time: 01/16/2020 (9011) ? Fire Apparatus Sprinkler Inspector: ? Printed Date/Time: 01/16/2020 (8755) ? PAGE 1 ? Signed Report ? Procedure Note Jameson Calderon MD - 01/16/2020 EXAM: RADIOLOGY/KNEE COMPLETE RT 4+VIEW EX. D/ (1205) CLINICAL INFORMATION: Fall/contusion/pain KNEE COMPLETE RT 4+VIEW Signs and Symptoms/Comments: Fall/contusion/pain Comparison: 10/15/2019. FINDINGS: Right knee: 4 views were performed. No acute fracture ormalalignment is identified. Moderate tricompartmental osteoarthrosis remainsmost advanced in the medial tibiofemoral compartment. No significantjoint effusion is visible. IMPRESSION: No fracture identified. REPORT SIGNED IN OTHER VENDOR SYSTEM 01/16/2020 Reported By: Jameson Calderon MD CC: Transcribed Date/Time: 01/16/2020 (4436) Fire Apparatus Sprinkler Inspector: Printed Date/Time: 01/16/2020 (4859) PAGE 1 Signed Report Liu Machuca MD IMG DIAGNOSTIC IMAGI NG ORDERABLES * EKG 12-LEAD (01/16/2020 10:24 EDT) 01/16/2020 10:[address] [facility] - 01/16/2020 10:24 EDT ? [facility] ? Test Date: ?2020-01-16 10:24:12 Pat Name: ? CONCETTA STONE ? Department: ?Room: ? Gender: ? F ?Music Therapist: ?? CG5 : ?1940 ? Requested By: Order Number: ?Reading : ?? Marlen Escobedo ? Measurements Intervals ?[place] ? Rate: ? 89 ? P: ?44 TX: ? 252 ?QRS: ?-49 QRSD: ? 98 ? T: ?41 QT: ? 384 ? QTc: ?467 ? Interpretive Statements Sinus rhythm with 1st degree AV block Left axis deviation Moderate voltage criteria for LVH, may be normal variant Nonspecific ST abnormality Abnormal ECG Compared to ECG 01/08/2015 11:00:26 No significant change Electronically Signed On 01-16-2020 14:52:56 EDT by Marlen Escobedo [email or web address] Procedure Note Marlen Escobedo MD - 01/16/2020 [facility] Test Date: 2020-01-16 10:24:12 Pat Name: CONCETTA STONE Department: Room: Gender: F Music Therapist: CG5 : 1940 Requested By: Order Number: Reading MD: Marlen Escobedo Measurements Intervals [place] Rate: 89 P: 44 TX: 252 QRS: -49 QRSD: 98 T: 41 QT: 384 QTc: 467 Interpretive Statements Sinus rhythm with 1st degree AV block Left axis deviation Moderate voltage criteria for LVH, may be normal variant Nonspecific ST abnormality Abnormal ECG Compared to ECG 01/08/2015 11:00:26 No significant change Electronically Signed On 01-16-2020 14:52:56 EDT by Marlen Escobedo [email or web address] Liu Machuca MD CARDIAC ECG ORDERABL ES [facility] documented in this encounter Visit Diagnoses Not on filedocumented in this encounter Additional Health Concerns Infection Onset Date Last Indicated Resolved Time R/O COVID-19 Comment:Covid neg. 02/21/2022 02/21/2022 02/21/2022 10:07 EDT Rule-Out C. difficile 02/21/2022 02/21/20222021 14:01 EDT documented as of this encounter Care Teams Shag Truck Driver Relationship Specialty Start Date End Date Nivia Tinsley MD [address] [phone] PCP - General Family Medicine - Primary Care 08/27/19 Reagan Pickett MD [address] [place] [address] Cardiovascular Disease 09/01/19 0 Zheng Tapia MD [address] [place] [address] [place] [address] Internal Medicine - Primary Care 09/01/19 Shazia Burks MD [address] [place] [address] Neurology 09/01/19 Tony Baron OD [address] [place] [phone] Allocations Clerk 09/01/19 Keira Paniagua MD [address] [place] [address] [address] Cardiovascular Disease 09/06/20 Siva Perkins MD [address] [place] [phone] Neurology 09/06/20 Sheryl Schwab, ANA [address] [place], [place] [phone] Clerical Supervisor 01/23/24 01/23/24 Ladonna Candelario Clerical Supervisor 01/23/24 documented as of this encounter
--- OUTSIDE RECORDS SUMMARY | 2024-04-29 18:29 | XMS_ITS | Encounter Summary ---
Author Organization [facility] Address [address] [place] [address] Care Team Providers Care Subeditor Name Role Phone Nivia Tinsley MD Primary Care Provider [phone] Reagan Pickett MD Unavailable [phone] Zheng Tapia MD Unavailable Shazia Burks MD Unavailable [phone] Tony Baron OD Unavailable [phone] Reason for Visit * Reason Onset Date Comments Shelter 01/19/2020 Encounter Details Date Type Department Care Team (Late st Contact Info) Description 01/19/[address] [facility] - [facility] Integrative Family Medicine [facility] [address] [place] [address] Nivia Tinsley MD [address] [place] [address] Shelter Social History Tobacco Use Types Packs/Day Years [...] encounter Miscellaneous Notes * Telephone Encounter - Samanta Motley RN - 01/21/2020 1055 EDT Added to list - will schedule once we get back to normal visits * Telephone Encounter - Radha Hendrickson - 01/21/2020 1052 EDT Save for rc * Telephone Encounter - Nivia Tinsley MD - 01/19/2020 1735 EDT I got a cortex message from Kiesha Villarreal at 12:50 pm Concetta Sullivan is going to [facility] for rehab tomorrow 01/20/20. FYI documented in this encounter Plan of Treatment Upcoming Encounters Date Type Department Care Team (Late st Contact Info) Description 06/11/2024 12:45 EDT Office Visit [facility] - [place] [address] [place] [address] Santiago Anthony MD [address] [place] [address] 5 [place] [address] 07/15/2024 10:45 EDT Office Visit [facility] Cardiology Clinic [address] [place], [place] [phone] Gianfranco Flowers MD [address] [facility] [address] [place] [phone] documented as of this encounter Visit Diagnoses Not on filedocumented in this encounter Care Teams Subeditor Relationship Specialty Start Date End Date Nivia Tinsley MD [address] [place], [place] [phone] PCP - General Family Medicine - Primary Care 08/27/19 Reagan Pickett MD [address] [place] [address] Cardiovascular Disease 09/01/19 0 Zheng Tapia MD [address] [place] [address] [address] [place] [address] Internal Medicine - Primary Care 09/01/19 Shazia Burks MD [address] [place], [place] [address] Neurology 09/01/19 Tony Baron, FRANCK [address] [place] [address] Operator Cavity Pump 09/01/19 documented as of this encounter
--- OUTSIDE RECORDS SUMMARY | 2024-04-29 18:29 | XMS_ITS | Encounter Summary ---
Author Organization [facility] Address [address] [place] [address] Care Team Providers Care Director Radiation Oncology Name Role Phone Nivia Tinsley MD Primary Care Provider Reagan Pickett MD Unavailable Zheng Tapia MD Unavailable Shazia Burks MD Unavailable [phone] Tony Baron OD Unavailable [phone] Encounter Details Date Type Department Care Team (Late st Contact Info) Description 01/19/2020 Results Only [facility] [phone] Katie Brand MD [address] [place] [phone] Social History Tobacco Use Types Packs/Day Years [...] Info) Description 06/11/2024 12:45 EDT Office Visit [facility] Ophthalmology [address] [address] Santiago Anthony MD [address] [place] [address], [facility] [address] [place] [address] 07/15/2024 10:45 EDT Office Visit [facility] Cardiology Clinic [address] [place] [address] Gianfranco Flowers MD 130 [facility] [address] [place] [address] documented as of this encounter Procedures Procedure Name Priority Date/Time Associated Diagnosis Comments URINALYSIS/COMPLETE - [facility] Routine 01/19/2020 16:12 EDT COVID-19 Routine 01/19/2020 12:25 EDT COMPLETE BLOOD COUNT WITH DIFFERENTIAL (AUTO) Routine 01/19/2020 6:20 EDT COMPREHENSIVE METABOLIC PANEL (CMP) Routine 01/19/2020 6:20 EDT documented in this encounter Results * URINALYSIS/COMPLETE - [facility] (01/19/2020 16:12 EDT) URINE APPEARANCE - [facility] Clear CLEAR 01/19/2020 17:13 [facility] URINE BACTERIA - [facility] NEG 01/19/2020 17:22 [facility] URINE BILIRUBIN - DIPSTICK - [facility] Negative NEGATIVE 01/19/2020 17:13 [facility] URINE BLOOD - [facility] Negative NEG 01/19/2020 17:13 [facility] URINE COLOR - [facility] Yellow YELLOW 01/19/2020 17:13 [facility] URINE GLUCOSE - DIPSTICK - [facility] Negative NEGATIVE 01/19/2020 17:13 [facility] URINE KETONE - [facility] Negative NEGATIVE 01/19/2020 17:13 [facility] URINE LEUK ESTERASE - [facility] Trace NEG 01/19/2020 17:13 [facility] URINE NITRITE - DIPSTICK - [facility] Negative NEG 01/19/2020 17:13 [facility] URINE PH - [facility] 6.5 4.0 - 8.0 0 17:13 [facility] URINE PROTEIN - DIPSTICK - [facility] Negative NEG 01/19/2020 17:13 [facility] URINE RBC - [facility] RARE rbc/hpf 01/19/20 17:22 [facility] URINE SPECIFIC GRAVITY - [facility] 1.010 1.001 - 1.035 01/19/2020 17:13 [facility] URINE SQUAMOUS CELLS - [facility] FEW NEG #/hpf 01/19/2020 17:22 [facility] URINE TRANSITIONAL CELLS - [facility] FEW #/hpf 01/19/2020 17:22 EDT [facility] URINE UROBILINOGEN - DIPSTICK - [facility] 0.2 0.2 - 1.0 01/19/2020 17:13 EDT [facility] URINE WBC - [facility] RARE NEG wbc/hpf 020 17:22 EDT [facility] 01/19/2020 16:1 2 EDT 01/19/2020 16:47 EDT Katie Brand MD CHEMISTRY & BLOOD GAS ORDERABLES Performing Organization Address [facility]/ZIP Co de Phone Number [facility] * COVID-19 (01/19/2020 12:25 EDT) [facility] Not Detected 01/20/2020 18:47 EDT [facility] Comment: TESTING PERFORMED AT [facility]; Analyte ? Result 2019-nCoV ? Not detected Negative results do not preclude 2019-nCoV infection and should not be used as the sole basis for treatment or other patient management decisions. ??Negative results must be combined with clinical observations, patient history and epidemlogical information. Result called to LATOYA SULTANA IN U 01/20/20 1845: Result called by TESTING PERFORMED AT [facility]; Analyte ? Result 2019-nCoV ? Not detected Negative results do not preclude 2019-nCoV infection and should not be used as the sole basis for treatment or other patient management decisions. ??Negative results must be combined with clinical observations, patient history and epidemlogical information. 01/19/2020 12:2 5 EDT 01/19/2020 13:01 EDT Chasity Lepe MD MICROBIOLOGY - GENER AL ORDERABLES Performing Organization Address [facility]/ZIP Co de Phone Number [facility] * (ABNORMAL) COMPREHENSIVE METABOLIC PANEL (CMP) (01/19/2020 6:20 EDT) [facility] Albumin % 3.5 3.4 - 4.9 g/dL 01/19/2020 7:13 [facility] ALKALINE PHOSPHATASE - [facility] 88 38 - 126 U/L 01/19/2020 7:13 [facility] BILIRUBIN TOTAL 0.5 0.2 - 1.3 mg/dL 01/19/2020 7:13 [facility] BUN - [facility] 19 10 - 26 mg/dL 01/19/2020 7:13 [facility] CALCIUM - [facility] 9.2 8.5 - 10.5 mg/dL 01/19/2020 7:13 [facility] Chloride 104 96 - 110 mmol/L 01/19/2020 7:13 [facility] CO2 Total 21(L) 22 - 32 mEq/L 01/19/2020 7:13 [facility] CREATININE 0.76 0.52 - 1.04 mg/dL 01/19/2020 7:13 [facility] eGFR >60 01/19/2020 7:13 [facility] Comment: Chronic renal impairment is defined as GFR <60 Multiply result by 1.210 for patients. eGFR calculated using the IDMS-traceable MDRD Study Equation. ??(effective 08/03/2014) Anion Gap 10 0 - 18 01/19/2020 7:13 [facility] GLUCOSE - [facility] 132(H) 70 - 100 mg/dL 01/19/2020 7:13 [facility] Potassium 4.4 3.5 - 5.0 mEq/L 01/19/2020 7:13 [facility] Sodium 135(L) 136 - 145 mEq/L 01/19/2020 7:13 [facility] TOTAL PROTEIN - [facility] 6.3 6.2 - 8.2 gm/dL 01/19/2020 7:13 [facility] SGOT/AST - [facility] 21 14 - 36 U/L 01/19/2020 7:13 [facility] SGPT/ALT - [facility] 24 0 - 35 U/L 04/20/202 0 7:13 EDT [facility] 01/19/2020 6:20 EDT 01/19/2020 6:41 EDT Katie Brand MD CHEMISTRY & BLOOD GAS ORDERABLES [facility] * (ABNORMAL) COMPLETE BLOOD COUNT WITH DIFFERENTIAL (AUTO) (01/19/2020 6:20 EDT) Gran # 4.6 2.2 - 8.85 10e3/uL 01/19/2020 6:55 EDT [facility] BASO # - [facility] 0.05 0.01 - 0.11 10e/uL 01/19/2020 6:55 EDT [facility] BASO % - [facility] 1 0 - 2 % [facility] EOS # - [facility] 0.46 0.03 - 0.61 10e3/ul 01/19/2020 6:55 EDT [facility] EOS % - [facility] 7(H) 0 - 5 % 01/19/2020 6:55 EDT [facility] GRAN % - [facility] 65.4 40 - 80 % 01/19/2020 6:55 EDT [facility] HEMATOCRIT - [facility] 39.0 34.9 - 44.4 % 01/19/2020 6:55 [facility] HEMOGLOBIN - [facility] 13.0 11.6 - 15.2 g/dl 01/19/2020 6:55 EDT [facility] IG# - [facility] 0.03 0 - 0.7 10e3/uL 01/19/2020 6:55 EDT [facility] IG% - [facility] 0.4 0 - 0.9 % 01/19/2020 6:55 EDT [facility] LYMPH # - [facility] 1.2 1.09 - 3.3 10e3/ul 01/19/2020 6:55 EDT [facility] LYMPH% - [facility] 17.1(L) 20 - 40 % [facility]2020 [facility] MEAN CORPUSCULAR HGB - [facility] 31.5 26.7 - 33.3 pg 01/19/2020 6[facility]55 [facility] MEAN CORPUSCULAR HGB CONC - [facility] 33.3 32.1 - 35.9 g/dL 01/19/2020 6[facility] MEAN CELL VOLUME - [facility] 94.4 81 - 98 fl 01/19/2020 6:55 [facility] MONO # - [facility] 0.7 0.1 - 0.8 10e3/uL 01/19/2020 6[facility]55 [facility] MONO% - [facility] 9.8 0 - 12 % 01/19/2020 6:55 [facility] PLATELET COUNT 208 141 - 377 10e3/ul 01/19/2020 6:55 [facility] RED BLOOD COUNT - [facility] 4.13 3.86 - 5.04 10e3/ul 01/19/2020 6:55 [facility] RED CELL DISTRI WIDTH - [facility] 12.9 <14.7 % 01/19/2020 6:55 [facility] WHITE BLOOD COUNT - [facility] 7.0 4.0 - 12.4 10e3/ul 01/19/2020 6:55 [facility] 01/19/2020 6:20 EDT 01/19/2020 6:41 EDT Katie Brand MD HEMATOLOGY & PF4 O RDERABLES [facility] documented in this encounter Visit Diagnoses Not on filedocumented in this encounter Care Teams Director Radiation Oncology Relationship Specialty Start Date End Date Nivia Tinsley MD [address] [place] [address] PCP - General Family Medicine - Primary Care 08/27/19 Reagan Pickett MD [address] [place], [place] [address] Cardiovascular Disease 12/2/19 12/6/2 0 Zheng Tapia MD [address] [place] [address] [address] [place] [address] Internal Medicine - Primary Care 09/01/19 Shazia Burks MD [address] [place] [address] Neurology 09/01/19 Tony Baron OD [address] [place] [phone] Contour Sander 09/01/19 documented as of this encounter
--- OUTSIDE RECORDS SUMMARY | 2024-04-29 18:29 | XMS_ITS | Encounter Summary ---
Author Organization [facility] Address [address] [place] [address] Care Team Providers Care Ride Operator Name Role Phone Nivia Tinsley MD Primary Care Provider Reagan Pickett MD Unavailable Zheng Tapia MD Unavailable Shazia Burks MD Unavailable Tony Baron OD Unavailable Keira Paniagua MD Unavailable Siva Perkins MD Unavailable [phone] Sheryl Schwab RN Unavailable Ladonna Candelario Unavailable Unavailable Encounter Details Date Type Department Care Team (Late st Contact Info) Description 01/19/2020 Results Only Imaging [facility] [address] [place], [place] [address] Katie Brand MD [address] [place] [id number] Social History Tobacco Use Types Packs/Day [...] Info) Description 06/11/2024 12:45 EDT Office Visit [facility] [place] [address] [place] [address] Santiago Anthony MD [address] [place] [address], [facility] [address] [place] [address] 07/15/2024 10:45 EDT Office Visit [facility] [address] [place], [place] [address] Gianfranco Flowers MD [address] [facility] [address] [place] [phone] documented as of this encounter Procedures Procedure Name Priority Date/Time Associated Diagnosis Comments TRANSTHORACIC ECHO (TTE) COMPLETE 01/19/2020 11:14 EDT EKG 12-LEAD 01/19/2020 10:36 EDT documented in this encounter Results * TRANSTHORACIC ECHO (TTE) COMPLETE (01/19/2020 11:14 EDT) Anatomical Region Laterality Modality Ultrasound 01/19/2020 11:1 4 EDT Narrative 01/21/2020 10:17 EDT *[facility]* *[facility]* [address] [place] [address] Date of study: 01/19/2020 Transthoracic Echocardiography M-mode, complete 2D, complete spectral Doppler, and color Doppler *STUDY CONCLUSIONS* Impressions: ??Normal LVEF, findiings c/w small PFO. Summary: 1. Left ventricle: The cavity size was normal. Wall thickness was ?? increased in a pattern of mild LVH. Systolic function was normal. The ?? estimated ejection fraction was 60-65%. Wall motion was normal; there ?? were no regional wall motion abnormalities. 2. Left atrium: The atrium was moderately to severely dilated. 3. Right ventricle: The cavity size was normal. Wall thickness was ?? normal. Systolic function was normal. 4. Atrial septum: There appears to be a patent foramen ovale. Agitated ?? saline contrast study showed a very small ihkmi-sa-ivbx atrial level ?? shunt, in the baseline state. 5. Pulmonary arteries: Pulmonary systolic pressure was at the upper ?? limits of normal. *PATIENT PRESENTATION* Height: ? 1.5cm (65in ) S/D Pressure: Weight: ? 69.5kg (152.7lb ) BSA: ?0.28m^2 Test start time: ??11:14 AM. Test stop time: ??11:47 AM. PATIENT ESCORT ??Dilia Orourke PERFORMING [place] [facility] [place] ? Katie Brand REFERRING ?Katie Brand *PROCEDURE DATA* Procedure information: ??The patient was identified by two identifiers. This study was interpreted by [facility]. Pertinent images and digital data are archived for permanent storage and are available for subsequent review. No prior study was available for comparison. ??Study status: Routine. Transthoracic echocardiography. ??M-mode, complete 2D, complete spectral Doppler, and color Doppler. A Transthoracic Echocardiogram was performed. Scanning was performed from the parasternal, apical, subcostal, and suprasternal notch acoustic windows. Images were obtained using a [facility] IE33 1 cardiac ultrasound machine. Image quality was fair. Intravenous contrast was administered. A total amount of 20ml of saline was used. The saline was administered by Evelia Corona RN . Study completion: ??The patient tolerated the procedure well. *INDICATIONS AND HISTORY* Indications: ??CVA *CARDIAC ANATOMY* Left ventricle: ??The cavity size was normal. Wall thickness was increased in a pattern of mild LVH. Systolic function was normal. The estimated ejection fraction was 60-65%. Wall motion was normal; there were no regional wall motion abnormalities. Aortic valve: ?? Trileaflet; normal thickness leaflets. Mobility was not restricted. ??Doppler: ??Transvalvular velocity was within the normal range. There was no stenosis. There was no significant regurgitation. Peak gradient (S): 5mm Hg. Aorta: ??Aortic root: The aortic root was at upper normal limits. Ascending aorta: The ascending aorta was normal in size. Mitral valve: ?? Structurally normal valve. ?? Mobility was not restricted. ??Doppler: ??Transvalvular velocity was within the normal range. There was no evidence for stenosis. There was no significant regurgitation. Left atrium: ??The atrium was moderately to severely dilated. Atrial septum: ??There appears to be a patent foramen ovale. ??Agitated saline contrast study showed a very small yhjdo-ky-whwb atrial level shunt, in the baseline state. Right ventricle: ??The cavity size was normal. Wall thickness was normal. Systolic function was normal. Pulmonic valve: ?? Poorly visualized. ??Doppler: ??Transvalvular velocity was within the normal range. There was no evidence for stenosis. There was no significant regurgitation. Tricuspid valve: ?? Structurally normal valve. ?Doppler: ??Transvalvular velocity was within the normal range. There was no evidence for stenosis. There was no significant regurgitation. Pulmonary artery: ?? Poorly visualized. Pulmonary systolic pressure was at the upper limits of normal. Right atrium: ??The atrium was normal in size. Pericardium: ??There was no pericardial effusion. Systemic veins: Inferior vena cava: Poorly visualized. Baseline ECG: ?? Normal sinus rhythm. Measurements Left ventricle ?Value ?Reference LV ID, ED, PLAX ? 4.5 ?? cm ? 3.5 - 6.0 LV ID, ES, PLAX ? 3.0 ?? cm ? 2.1 - 4.0 LV PW thickness, ED, PLAX ? 2.4 ?? cm ? --------- LV e', lateral ?0.061 m/sec ??--------- LV E/e', lateral ?9 ?--------- LV e', medial ? 0.052 m/sec ??--------- LV E/e', medial ? 10.9 ? --------- LV e', average ?0.057 m/sec ??--------- LV E/e', average ?10 ? --------- Ventricular septum ?Value ?Reference IVS thickness, ED, PLAX ? 0.8 ?? cm ? --------- Aortic valve ?Value ?Reference Aortic valve peak velocity, S ? 1.1 ?? m/sec ??--------- Aortic peak gradient, S ? 5 ? mm Hg ??--------- Aorta ? Value ?Reference Aortic root ID ?3.6 ?? cm ? --------- Ascending aorta ID, A-P ? 3.4 ?? cm ? --------- Left atrium ? Value ?Reference LA volume, ES, 1-p A4C ?108 ?? ml ? --------- LA volume/bsa, ES, 1-p A4C ?387 ?? ml/m^2 --------- LA volume, ES, 2-p ?104 ?? ml ? --------- LA volume/bsa, ES, 2-p ?373 ?? ml/m^2 --------- Mitral valve ?Value ?Reference Mitral E-wave peak velocity ? 0.56 ??m/sec ??--------- Mitral A-wave peak velocity ? 1.12 ??m/sec ??--------- Mitral deceleration time ?(H) ? 306 ?? ms ? 150 - 230 Mitral E/A ratio, peak ?0.5 ?--------- Pulmonary arteries ?Value ?Reference PA pressure, S, DP ?29 ?mm Hg ??<=30 Tricuspid valve ? Value ?Reference Tricuspid regurg peak velocity ?2.2 ?? m/sec ??--------- Tricuspid peak RV-RA gradient ? 19.4 ??mm Hg ??--------- Tricuspid maximal regurg velocity, PISA ? 1.95 ??m/sec ??--------- Systemic veins ?Value ?Reference Estimated CVP ? 10 ?mm Hg ??--------- Right ventricle ? Value ?Reference RV pressure, S, DP ?29 ?mm Hg ??<=30 Legend: (L) ??and ??(H) ??nick values outside specified reference range. I have personally reviewed the images and have reviewed and edited the reported findings. Electronically signed by Keira Paniagua 01/21/2020 10:17 Procedure Note Keira Paniagua MD - 01/21/2020 *[facility]* *[facility]* [address] [place] [address] Date of study: 01/19/2020 Transthoracic Echocardiography M-mode, complete 2D, complete spectral Doppler, and color Doppler *STUDY CONCLUSIONS* Impressions: Normal LVEF, findiings c/w small PFO. Summary: 1. Left ventricle: The cavity size was [...] saline contrast study showed a very small wtlzk-ns-txtz atrial level shunt, in the baseline state. 5. Pulmonary arteries: Pulmonary systolic pressure was at the upper limits of normal. *PATIENT PRESENTATION* Height: 1.5cm (65in ) S/D Pressure: Weight: 69.5kg (152.7lb ) BSA: 0.28m^2 Test start time: 11:14 AM. Test stop time: 11:47 AM. PATIENT ESCORT Dilia Orourke PERFORMING [facility] [place] Katie Brand REFERRING Katie Brand *PROCEDURE DATA* Procedure information: The patient was identified by two identifiers. This study was interpreted by [facility]. Pertinent images and digital data are archived for permanent storage and are available for subsequent review. No prior study was available for comparison. Study status: Routine. Transthoracic echocardiography. M-mode, complete 2D, complete spectral Doppler, and color Doppler. A Transthoracic Echocardiogram was performed. Scanning was performed from the parasternal, apical, subcostal, and suprasternal notch acoustic windows. Images were obtained using a [facility] IE33 1 cardiac ultrasound machine. Image quality was fair. Intravenous contrast was administered. A total amount of 20ml of saline was used. The saline was administered by Evelia Corona RN . Study completion: The patient tolerated the procedure well. *INDICATIONS AND HISTORY* Indications: CVA *CARDIAC ANATOMY* Left ventricle: The cavity size was normal. Wall thickness was increased in a pattern of mild LVH. Systolic function was normal. The estimated ejection fraction was 60-65%. Wall motion was normal; there were no regional wall motion abnormalities. Aortic valve: Trileaflet; normal thickness leaflets. Mobility was not restricted. Doppler: Transvalvular velocity was within the normal range. There was no stenosis. There was no significant regurgitation. Peak gradient (S): 5mm Hg. Aorta: Aortic root: The aortic root was at upper normal limits. Ascending aorta: The ascending aorta was normal in size. Mitral valve: Structurally normal valve. Mobility was not restricted. Doppler: Transvalvular velocity was within the normal range. There was no evidence for stenosis. There was no significant regurgitation. Left atrium: The atrium was moderately to severely dilated. Atrial septum: There appears to be a patent foramen ovale. Agitated saline contrast study showed a very small golfy-hm-sezr atrial level shunt, in the baseline state. Right ventricle: The cavity size was normal. Wall thickness was normal. Systolic function was normal. Pulmonic valve: Poorly visualized. Doppler: Transvalvular velocity was within the normal range. There was no evidence for stenosis. There was no significant regurgitation. Tricuspid valve: Structurally normal valve. Doppler: Transvalvular velocity was within the normal range. There was no evidence for stenosis. There was no significant regurgitation. Pulmonary artery: Poorly visualized. Pulmonary systolic pressure was at the upper limits of normal. Right atrium: The atrium was normal in size. Pericardium: There was no pericardial effusion. Systemic veins: Inferior vena cava: Poorly visualized. Baseline ECG: Normal sinus rhythm. Measurements Left ventricle Value Reference LV ID, ED, PLAX 4.5 cm 3.5 - 6.0 LV ID, ES, PLAX 3.0 cm 2.1 - 4.0 LV PW thickness, ED, PLAX 2.4 cm --------- LV e', lateral 0.061 m/sec --------- LV E/e', lateral 9 --------- LV e', medial 0.052 m/sec --------- LV E/e', medial 10.9 --------- LV e', average 0.057 m/sec --------- LV E/e', average 10 --------- Ventricular septum Value Reference IVS thickness, ED, PLAX 0.8 cm --------- Aortic valve Value Reference Aortic valve peak velocity, S 1.1 m/sec --------- Aortic peak gradient, S 5 mm Hg --------- Aorta Value Reference Aortic root ID 3.6 cm --------- Ascending aorta ID, A-P 3.4 cm --------- Left atrium Value Reference LA volume, ES, 1-p A4C 108 ml --------- LA volume/bsa, ES, 1-p A4C 387 ml/m^2 --------- LA volume, ES, 2-p 104 ml --------- LA volume/bsa, ES, 2-p 373 ml/m^2 --------- Mitral valve Value Reference Mitral E-wave peak velocity 0.56 m/sec --------- Mitral A-wave peak velocity 1.12 m/sec --------- Mitral deceleration time (H) 306 ms 150 - 230 Mitral E/A ratio, peak 0.5 --------- Pulmonary arteries Value Reference PA pressure, S, DP 29 mm Hg <=30 Tricuspid valve Value Reference Tricuspid regurg peak velocity 2.2 m/sec --------- Tricuspid peak RV-RA gradient 19.4 mm Hg --------- Tricuspid maximal regurg velocity, PISA 1.95 m/sec --------- Systemic veins Value Reference Estimated CVP 10 mm Hg --------- Right ventricle Value Reference RV pressure, S, DP 29 mm Hg <=30 Legend: (L) and (H) nick values outside specified reference range. I have personally reviewed the images and have reviewed and edited the reported findings. Electronically signed by Keira Paniagua 01/21/2020 10:17 Katie Brand MD CARDIAC ECHO ORDER GONZALEZ * EKG 12-LEAD (01/19/2020 10:36 EDT) 01/19/2020 10:3 6 EDT [facility] - 01/19/2020 10:36 EDT ? [facility] ? Test Date: ?2020-01-19 10:36:27 Pat Name: ? CONCETTA MEADOWS ? Department: ?Room: ? POD-E Gender: ? F ?[employer] Developer: ?? JW : ?1940 ? Requested By: Order Number: ?Reading : ?? Keira Paniagua MD ? Measurements Intervals ?[employer] ? Rate: ? 60 ? P: ?55 WA: ? 252 ?QRS: ?-55 QRSD: ? 98 ? T: ?-32 QT: ? 426 ? QTc: ?426 ? Interpretive Statements Sinus rhythm with 1st degree AV block Left axis deviation Moderate voltage criteria for LVH, may be normal variant Nonspecific ST and T wave abnormality Abnormal ECG Compared to ECG 01/16/2020 10:24:12 No significant changes Electronically Signed On 01-19-2020 22:09:31 EDT by Keira Paniagua MD [email or web address] Procedure Note Keira Paniagua MD - 01/19/2020 [facility] Test Date: 2020-01-19 10:36:27 Pat Name: CONCETTA STONE Department: Room: [facility] Gender: F [employer] Developer: DEZ : [id number] Requested By: Order Number: Reading MD: Keira Paniagua MD Measurements Intervals [employer] Rate: 60 P: 55 WA: 252 QRS: -55 QRSD: 98 T: -32 QT: 426 QTc: 426 Interpretive Statements Sinus rhythm with 1st degree AV block Left axis deviation Moderate voltage criteria for LVH, may be normal variant Nonspecific ST and T wave abnormality Abnormal ECG Compared to ECG 01/16/2020 10:24:12 No significant changes Electronically Signed On 01-19-2020 22:09:31 EDT by Keira Paniagua MD [email or web address] Katie Brand MD CARDIAC ECG [facility] documented in this encounter Visit Diagnoses Not on filedocumented in this encounter Additional Health Concerns Infection Onset Date Last Indicated Resolved Time R/O COVID-19 Comment:Covid neg. 02/21/2022 02/21/2022 02/21/2022 10:07 EDT Rule-Out C. difficile 02/21/2022 02/21/20222021 14:01 EDT documented as of this encounter Care Teams Ride Operator Relationship Specialty Start Date End Date Nivia Tinsley MD [address] [place] [address] PCP - General Family Medicine - Primary Care 08/27/19 Reagan Pickett MD [address] [place] [address] Cardiovascular Disease 09/01/19 0 Zheng Tapia MD [address] [place] [address] [address] [place] [address] Internal Medicine - Primary Care 09/01/19 Shazia Burks MD [address] [place] [address] Neurology 09/01/19 Tony Baron OD [address] [place] [phone] Computer Information Science Professor 09/01/19 Keira Paniagua MD [address] [place] [phone] Cardiovascular Disease 09/06/20 Siva Perkins MD [address] [place] [address] Neurology 09/06/20 Sheryl Schwab, RN [address] [place] [address] Rolling Down Machine Operator 01/23/24 01/23/24 Ladonna Candelario Rolling Down Machine Operator 01/23/24 documented as of this encounter
--- OUTSIDE RECORDS SUMMARY | 2024-04-29 18:29 | XMS_ITS | Encounter Summary ---
Author Organization [facility] Address [address] [place] [address] Care Team Providers Care Development Expert Name Role Phone Nivia Tinsley MD Primary Care Provider Reagan Pickett MD Unavailable Zheng Tapia MD Unavailable Shazia Burks MD Unavailable Tony Baron OD Unavailable Keira Paniagua MD Unavailable Siva Perkins MD Unavailable [phone] Sheryl Schwab RN Unavailable Ladonna Candelario Unavailable Unavailable Encounter Details Date Type Department Care Team (Late st Contact Info) Description 10/28/2019 Results Only Imaging [facility] Radiology Results [address] [place], [place] [id number] Nivia Tinsley MD [address] [place] [id number] Social History Tobacco Use Types Packs/Day [...] 06/11/2024 12:45 EDT Office Visit [facility] [place] [address] [place] [address] Santiago Anthony MD [address] [place] [address], [facility] [address] [place] [address] 07/15/2024 10:45 EDT Office Visit [facility] [address] [place], [place] [address] Gianfranco Flowers MD [address] [facility] [address] [place] [address] documented as of this encounter Procedures Procedure Name Priority Date/Time Associated Diagnosis Comments MA BREAST DIAGNOSTIC UNILATERAL LEANN 10/28/2019 12:04 EST US BREAST LIMITED UNILATERAL 10/28/2019 12:04 EST documented in this encounter Results * US BREAST LIMITED UNILATERAL (10/28/2019 12:04 EST) Anatomical Region Laterality Modality Breast Other 10/28/2019 12:0 3 EST Narrative 10/28/2019 12:04 EST ? EXAM: ULTRASOUND/UNILATERAL BREAST LIMITE EX. D/ (1050) ? CLINICAL INFORMATION: ? RIGHT BREAST, CYSTIC VS SOLID ? INDICATION: RIGHT BREAST, CYSTIC VS SOLID RIGHT BREAST SUSP. ? FINDINGS, CYSTIC/SOLID ? COMPARISON: Comparison is made to prior images. ? DIAGNOSTIC RIGHT BREAST MAMMOGRAM: ??Full field digital whole breast ? 2D (C-view) and 3D CC and MLO views of the right breast were ? obtained. Whole breast ML and compression spot CC views were also ? obtained. CAD technology was utilized. ? FINDINGS: There are scattered areas of fibroglandular density. No ? dominant mass, architectural distortion or suspicious ? microcalcification is seen on today's study. No mammographic evidence ? of cancer is identified. ? DIAGNOSTIC RIGHT BREAST ULTRASOUND: Sonographic examination of the ? retroareolar breast and the superior half of the breast was ? performed. ? Normal-appearing fibroglandular and fatty tissue is present. No solid ? mass, cyst or abnormal posterior shadowing is identified. ? RECOMMENDATION: ??The patient should revert to yearly screening ? mammography. ? The findings and recommendations were communicated to the patient by ? the sluice tender shortly following the examination. ? FINAL ASSESSMENT: ??DIAGNOSTIC RIGHT BREAST MAMMOGRAM/ULTRASOUND - ? BI-RADS Category 1 - Negative. ? These results will be communicated to your patient via a lay letter ? from Radiology. ??If any additional imaging is needed we will contact ? your patient directly. ? REPORT SIGNED IN OTHER VENDOR SYSTEM 10/28/2019 ?Reported By: Baldev Pastrana MD ? CC: ? Transcribed Date/Time: 10/28/2019 (1204) ? [employer] Worker: ? Printed Date/Time: 10/28/2019 (1242) ? PAGE 1 ? Signed Report ? Procedure Note Baldev Pastrana MD - 10/28/2019 EXAM: ULTRASOUND/UNILATERAL BREAST LIMITE EX. D/ (1050) CLINICAL INFORMATION: RIGHT BREAST, CYSTIC VS SOLID INDICATION: RIGHT BREAST, CYSTIC VS SOLID RIGHT BREAST SUSP. FINDINGS, CYSTIC/SOLID COMPARISON: Comparison is made to prior images. DIAGNOSTIC RIGHT BREAST MAMMOGRAM: Full field digital whole breast 2D (C-view) and 3D CC and MLO views of the right breast were obtained. Whole breast ML and compression spot CC views were also obtained. CAD technology was utilized. FINDINGS: There are scattered areas of fibroglandular density. No dominant mass, architectural distortion or suspicious microcalcification is seen on today's study. No mammographicevidence of cancer is identified. DIAGNOSTIC RIGHT BREAST ULTRASOUND: Sonographic examination of the retroareolar breast and the superior half of the breast was performed. Normal-appearing fibroglandular and fatty tissue is present. Nosolid mass, cyst or abnormal posterior shadowing is identified. RECOMMENDATION: The patient should revert to yearly screening mammography. The findings and recommendations were communicated to the patientby the sluice tender shortly following the examination. FINAL ASSESSMENT: DIAGNOSTIC RIGHT BREAST MAMMOGRAM/ULTRASOUND - BI-RADS Category 1 - Negative. These results will be communicated to your patient via a lay letter from Radiology. If any additional imaging is needed we willcontact your patient directly. REPORT SIGNED IN OTHER VENDOR SYSTEM 10/28/2019 Reported By: Baldev Pastrana MD CC: Transcribed Date/Time: 10/28/2019 (7736) [employer] Worker: Printed Date/Time: 10/28/2019 (2920) PAGE 1 Signed Report Nivia Tinsley MD IMG US ORDERABLES * MA BREAST DIAGNOSTIC UNILATERAL LEANN (10/28/2019 12:04 EST) Anatomical Region Laterality Modality Breast Mammography 10/28/2019 12:0 3 EST Narrative 10/28/2019 12:04 EST ? EXAM: MAMMOGRAM/MAMMO DX CALL BACK UNI W/ EX. D/ (1032) ? CLINICAL INFORMATION: ? RIGHT BREAST, SUSP FINDINGS ON INITIAL ? INDICATION: RIGHT BREAST, CYSTIC VS SOLID RIGHT BREAST SUSP. ? FINDINGS, CYSTIC/SOLID ? COMPARISON: Comparison is made to prior images. ? DIAGNOSTIC RIGHT BREAST MAMMOGRAM: ??Full field digital whole breast ? 2D (C-view) and 3D CC and MLO views of the right breast were ? obtained. Whole breast ML and compression spot CC views were also ? obtained. CAD technology was utilized. ? FINDINGS: There are scattered areas of fibroglandular density. No ? dominant mass, architectural distortion or suspicious ? microcalcification is seen on today's study. No mammographic evidence ? of cancer is identified. ? DIAGNOSTIC RIGHT BREAST ULTRASOUND: Sonographic examination of the ? retroareolar breast and the superior half of the breast was ? performed. ? Normal-appearing fibroglandular and fatty tissue is present. No solid ? mass, cyst or abnormal posterior shadowing is identified. ? RECOMMENDATION: ??The patient should revert to yearly screening ? mammography. ? The findings and recommendations were communicated to the patient by ? the sluice tender shortly following the examination. ? FINAL ASSESSMENT: ??DIAGNOSTIC RIGHT BREAST MAMMOGRAM/ULTRASOUND - ? BI-RADS Category 1 - Negative. ? These results will be communicated to your patient via a lay letter ? from Radiology. ??If any additional imaging is needed we will contact ? your patient directly. ? REPORT SIGNED IN OTHER VENDOR SYSTEM 10/28/2019 ?Reported By: Baldev Pastrana MD ? CC: ? Transcribed Date/Time: 10/28/2019 (1204) ? [employer] Worker: ? Printed Date/Time: 10/28/2019 (1242) ? PAGE 1 ? Signed Report ? Procedure Note Baldev Pastrana MD - 10/28/2019 EXAM: MAMMOGRAM/MAMMO DX CALL BACK UNI W/ EX. D/ (1032) CLINICAL INFORMATION: RIGHT BREAST, SUSP FINDINGS ON INITIAL INDICATION: RIGHT BREAST, CYSTIC VS SOLID RIGHT BREAST SUSP. FINDINGS, CYSTIC/SOLID COMPARISON: Comparison is made to prior images. DIAGNOSTIC RIGHT BREAST MAMMOGRAM: Full field digital whole breast 2D (C-view) and 3D CC and MLO views of the right breast were obtained. Whole breast ML and compression spot CC views were also obtained. CAD technology was utilized. FINDINGS: There are scattered areas of fibroglandular density. No dominant mass, architectural distortion or suspicious microcalcification is seen on today's study. No mammographicevidence of cancer is identified. DIAGNOSTIC RIGHT BREAST ULTRASOUND: Sonographic examination of the retroareolar breast and the superior half of the breast was performed. Normal-appearing fibroglandular and fatty tissue is present. Nosolid mass, cyst or abnormal posterior shadowing is identified. RECOMMENDATION: The patient should revert to yearly screening mammography. The findings and recommendations were communicated to the patientby the sluice tender shortly following the examination. FINAL ASSESSMENT: DIAGNOSTIC RIGHT BREAST MAMMOGRAM/ULTRASOUND - BI-RADS Category 1 - Negative. These results will be communicated to your patient via a lay letter from Radiology. If any additional imaging is needed we willcontact your patient directly. REPORT SIGNED IN OTHER VENDOR SYSTEM 10/28/2019 Reported By: Baldev Pastrana MD CC: Transcribed Date/Time: 10/28/2019 (2569) [employer] Worker: Printed Date/Time: 10/28/2019 (7889) PAGE 1 Signed Report Nivia Tinsley MD IMG MAMMOGRAPHY ORD ERABLES documented in this encounter Visit Diagnoses Not on filedocumented in this encounter Additional Health Concerns Infection Onset Date Last Indicated Resolved Time R/O COVID-19 Comment:Covid neg. 02/21/2022 02/21/2022 02/21/2022 10:07 EDT Rule-Out C. difficile 02/21/2022 02/21/20222021 14:01 EDT documented as of this encounter Care Teams Development Expert Relationship Specialty Start Date End Date Nivia Tinsley MD [address] [place] [phone] PCP - General Family Medicine - Primary Care 08/27/19 Reagan Pickett MD [address] [place] [id number] Cardiovascular Disease 09/01/19 0 Zheng Tapia MD [address] [place] [address] [address] [place] [phone] Internal Medicine - Primary Care 09/01/19 Shazia Burks MD [address] [place] [address] Neurology 09/01/19 Tony Baron OD [address] [place] [phone] Socket Welder Helper 09/01/19 Keira Paniagua MD [address] [place] [address] [address] [place] [phone] Cardiovascular Disease 09/06/20 Siva Perkins MD [address] [place] [address] Neurology 09/06/20 Sheryl Schwab, ANA [address] [place] [address] Grocery Worker 01/23/24 01/23/24 Ladonna Candelario Grocery Worker 01/23/24 documented as of this encounter
--- OUTSIDE RECORDS SUMMARY | 2024-04-29 18:29 | XMS_ITS | Encounter Summary ---
Author Organization [facility] Address [address] [place] [address] Care Team Providers Care Sales And Marketing Intern Name Role Phone Nivia Tinsley MD Primary Care Provider Reagan Pickett MD Unavailable [phone] Zheng Tapia MD Unavailable Shazia Burks MD Unavailable Tony Baron OD Unavailable Keira Paniagua MD Unavailable Siva Perkins MD Unavailable [phone] Sheryl Schwab RN Unavailable Ladonna Candelario Unavailable Unavailable Encounter Details Date Type Department Care Team (Late st Contact Info) Description 01/17/2020 Results Only Imaging [facility] Radiology Results [address] [place] [address] Katie Brand MD [address] [place] [address] [id number] Social History Tobacco Use Types Packs/Day Years [...] Info) Description 06/11/2024 12:45 EDT Office Visit [facility]hthalmology - [place] [address] [place] [address] Santiago Anthony MD [address] [place] [address], [facility] [address] [place] [address] 07/15/2024 10:45 EDT Office Visit [facility] [address] [place], [place] [id number] Gianfranco Flowers MD [address] [facility] [address] [place] [address] documented as of this encounter Procedures Procedure Name Priority Date/Time Associated Diagnosis Comments MR ANGIO NECK W WO CONTRAST 01/17/2020 15:55 EDT MR HEAD WO CONTRAST 01/17/2020 1 5:10 EDT MR ANGIO HEAD WO CONTRAST 01/17/2020 15:[address] HEAD WO CONTRAST 01/17/2020 1 2:07 EDT documented in this encounter Results * MR ANGIO NECK W WO CONTRAST (01/17/2020 15:55 EDT) Anatomical Region Laterality Modality Neck Magnetic Resonan ce 01/17/2020 15:5 2 EDT Narrative 01/17/2020 15:55 EDT ? EXAM: MAGNETIC RESONANCE IMAGING/ANGIOGRA EX. D/ (1510) ? CLINICAL INFORMATION: ? ANGIOGRAPHY NECK WO/W CONTRAST ? Signs and Symptoms/Comments: ??Generalized weakness, hypertension, ? cerebellar ataxia. ? Comparisons: Separately dictated MR brain and MRA head on 01/17/2020. ? CTA neck on 02/16/2015. Ultrasound carotids on 07/28/2009. ? Technique: Contrast-enhanced MR angiography of the neck was performed ? with 3-D reconstructions. ? MRA NECK FINDINGS: ? MR angiography demonstrates a normal branching pattern at the aortic ? arch. ? The right common carotid artery is unremarkable. The right internal ? carotid artery is unremarkable without hemodynamically significant ? stenosis. ? The left common carotid artery is unremarkable. The left internal ? carotid artery is unremarkable without hemodynamically significant ? stenosis. ? The proximal right subclavian artery is widely patent. The cervical ? portion of the right vertebral artery is widely patent. The distal V4 ? segment is diminutive in caliber, with suspected significant stenoses ? versus focal occlusions, similar to 2015. ? The proximal left subclavian artery is widely patent. The cervical ? portion of the left vertebral artery is widely patent. The distal V4 ? segment is small in caliber, with multiple suspected stenoses, ? similar to 2015. ? IMPRESSION: ? 1. ??Carotid arteries widely patent. ? 2. ??Bilateral distal vertebral arteries small in caliber, right worse ? than left, similar to 2014. Severe stenoses versus focal occlusions ? are suspected in the distal right vertebral artery. ? PAGE 1 ? Signed Report ? (CONTINUED) ? 3. ??Known chronic basilar artery occlusion. Please see the separately ? dictated MRA head report. ? REPORT SIGNED IN OTHER VENDOR SYSTEM 01/17/2020 ?Reported By: Jmaeson Calderon MD ? CC: ? Transcribed Date/Time: 01/17/2020 (2128) ? Classified Ad Clerk: ? Printed Date/Time: 01/17/2020 (8869) ? PAGE 2 ? Signed Report ? Procedure Note Jameson Calderon MD - 01/17/2020 EXAM: MAGNETIC RESONANCE IMAGING/ANGIOGRA EX. D/ (1510) CLINICAL INFORMATION: ANGIOGRAPHY NECK WO/W CONTRAST Signs and Symptoms/Comments: Generalized weakness, hypertension, cerebellar ataxia. Comparisons: Separately dictated MR brain and MRA head on01/17/2020. CTA neck on 02/16/2015. Ultrasound carotids on 07/28/2009. Technique: Contrast-enhanced MR angiography of the neck wasperformed with 3-D reconstructions. MRA NECK FINDINGS: MR angiography demonstrates a normal branching pattern at theaortic arch. The right common carotid artery is unremarkable. The right internal carotid artery is unremarkable without hemodynamically significant stenosis. The left common carotid artery is unremarkable. The left internal carotid artery is unremarkable without hemodynamically significant stenosis. The proximal right subclavian artery is widely patent. The cervical portion of the right vertebral artery is widely patent. The distalV4 segment is diminutive in caliber, with suspected significantstenoses versus focal occlusions, similar to 2015. The proximal left subclavian artery is widely patent. The cervical portion of the left vertebral artery is widely patent. The distalV4 segment is small in caliber, with multiple suspected stenoses, similar to 2015. IMPRESSION: 1. Carotid arteries widely patent. 2. Bilateral distal vertebral arteries small in caliber, rightworse than left, similar to 2015. Severe stenoses versus focal occlusions are suspected in the distal right vertebral artery. PAGE 1 Signed Report (CONTINUED) 3. Known chronic basilar artery occlusion. Please see theseparately dictated MRA head report. REPORT SIGNED IN OTHER VENDOR SYSTEM 01/17/2020 Reported By: Jameson Calderon MD CC: Transcribed Date/Time: 01/17/2020 (8254) Classified Ad Clerk: Printed Date/Time: 01/17/2020 (1219) PAGE 2 Signed Report Katie Brand MD IM MRI ORDERABLES * MR HEAD WO CONTRAST (01/17/2020 15:10 EDT) Anatomical Region Laterality Modality Head Magnetic Resonan ce 01/17/2020 15:0 7 EDT Narrative 01/17/2020 15:10 EDT ? EXAM: MAGNETIC RESONANCE IMAGING/BRAIN WI EX. D/ (1440) ? CLINICAL INFORMATION: ? cerebllar ataxia ? BRAIN WITHOUT CONTRAST ? MRA HEAD W/O CONTRAST ? Signs and Symptoms/Comments: ??cerebellar ataxia ? Comparisons: MR brain on 01/08/2015, 02/06/2011. CT head on 01/17/2020, ? 01/08/2015. CTA head on 02/16/2015. ? Technique: ? * ??Noncontrast MR brain was performed with the following sequences: ? Sagittal T1, axial T2, axial T2 FLAIR, axial DWI, axial ? susceptibility weighted. ? * ??[id number] MR angiography of the [place] was ? performed with 3-D reconstructions. ? MR BRAIN FINDINGS: ? Image Quality: The images are moderately motion degraded. Best study ? obtainable at this time. ? Brain: Focal restricted diffusion in the left thalamus is compatible ? with ischemia (axial DWI series 4 image 14). Given corresponding T2 ? FLAIR prolongation, this is compatible with acute-early subacute ? infarct (axial T2 FLAIR series 6 image 14). ? Old-appearing bilateral basal ganglia infarcts are present, including ? a small infarct in the right cerebellar hemisphere which appears new ? compared to 2015 (axial T2 series 7 image 5). A small old pontine ? infarct is also suspected (axial T2 series 7 image). Extensive patchy ? T2 prolongation in the supratentorial white matter is nonspecific, ? but mildly progressed compared to 2015, perhaps reflecting sequela of ? advanced chronic microvascular ischemic disease. ? A heterogeneous signal right parietal lobe lesion is stable compared ? to 2015, measuring approximately 2 cm in greatest dimension (axial T2 ? series 7 image 18). This lesion demonstrates prominent ? susceptibility, compatible with old blood products (axial ? susceptibility series 5 image 78). This likely reflects a vascular ? malformation when compared to the contrast-enhanced MR of 2011. No ? new intracranial mass is visible on this noncontrast study. No acute ? mass effect or midline shift is present. The basal cisterns are ? patent. Mild-moderate global parenchymal atrophy and ex vacuo ? ventriculomegaly are similar to 2015. ? Orbits: Bilateral intraocular lens replacements are present. The ? orbits otherwise unremarkable. ? Paranasal sinuses: A left maxillary sinus mucosal retention cyst is ? present. No layering fluid is identified. ? Middle ear cavities ?? Mastoid air cells: The mastoid air cells and ? middle ear cavities are clear. ? PAGE 1 ? Signed Report ? (CONTINUED) ? Bones: The osseous structures are unremarkable. ? Extracranial soft tissues: The extracranial soft tissues are ? unremarkable. ? MRA HEAD FINDINGS: ? Image Quality: The images are moderately motion degraded. Best study ? obtainable at this time. ? Anterior circulation: The distal ICA, anterior and middle cerebral ? arteries are patent. No hemodynamically significant stenosis or ? definite aneurysm is visible, although sensitivity is reduced by ? motion artifact. ? Posterior circulation: The distal vertebral arteries are small in ? caliber, similar to 2015. The basilar artery is chronically occluded, ? with reconstitution distally from collaterals. The posterior cerebral ? arteries are diminutive but appear grossly patent, likely supplied ? predominantly via collateral flow across the posterior communicating ? arteries bilaterally. ? Other findings: The patient's known right parietal lesion is better ? appreciated on the comparison contrast-enhanced MR of 2010, likely a ? vascular malformation. ? IMPRESSION: ? 1. ??ACUTE-EARLY SUBACUTE LEFT THALAMIC INFARCT. ? 2. ??Chronic basilar artery occlusion. Posterior cerebral arteries ? diminutive but appear patent, likely supplied predominantly via the ? posterior communicating arteries. ? 3. 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 described above. ? 4. ??Stable 2 cm right parietal lesion, likely a vascular ? malformation. ? 5. ??Extensive patchy white matter hypoattenuation, mildly progressed ? compared to 2015. Entirely nonspecific, differential includes sequela ? of chronic severe microvascular ischemic disease, demyelinating ? disease (multiple sclerosis, ADEM, Lyme), vasculitis, diabetes, ? hypertension, or smoking related changes. ? 6. ??Additional findings detailed above. ? PAGE 2 ? Signed Report ? (CONTINUED) ? Dr. Jameson Calderon discussed these findings with Dr. Wilson ? Sunday on 01/17/2020 2:50 PM. ? REPORT SIGNED IN OTHER VENDOR SYSTEM 01/17/2020 ?Reported By: Jameson Calderon MD ? CC: ? Transcribed Date/Time: 01/17/2020 (1510) ? Classified Ad Clerk: ? Printed Date/Time: 01/17/2020 (6370) ? PAGE 3 ? Signed Report ? Procedure Note Jameson Calderon MD - 01/17/2020 EXAM: MAGNETIC RESONANCE IMAGING/BRAIN WI EX. D/ (1440) CLINICAL INFORMATION: cerebllar ataxia BRAIN WITHOUT CONTRAST MRA HEAD W/O CONTRAST Signs and Symptoms/Comments: cerebellar ataxia Comparisons: MR brain on 01/08/2015, 02/06/2011. CT head on 01/17/2020, 01/08/2015. CTA head on 02/16/2015. Technique: * Noncontrast MR brain was performed with the following sequences: Sagittal T1, axial T2, axial T2 FLAIR, axial DWI, axial susceptibility weighted. * [id number] MR angiography of the [place] was performed with 3-D reconstructions. MR BRAIN FINDINGS: Image Quality: The images are moderately motion degraded. Beststudy obtainable at this time. Brain: Focal restricted diffusion in the left thalamus iscompatible with ischemia (axial DWI series 4 image 14). Given corresponding T2 FLAIR prolongation, this is compatible with acute-early subacute infarct (axial T2 FLAIR series 6 image 14). Old-appearing bilateral basal ganglia infarcts are present,including a small infarct in the right cerebellar hemisphere which appearsnew compared to 2015 (axial T2 series 7 image 5). A small old pontine infarct is also suspected (axial T2 series 7 image). Extensivepatchy T2 prolongation in the supratentorial white matter is nonspecific, but mildly progressed compared to 2015, perhaps reflecting sequelaof advanced chronic microvascular ischemic disease. A heterogeneous signal right parietal lobe lesion is stablecompared to 2015, measuring approximately 2 cm in greatest dimension (axialT2 series 7 image 18). This lesion demonstrates prominent susceptibility, compatible with old blood products (axial susceptibility series 5 image 78). This likely reflects a vascular malformation when compared to the contrast-enhanced MR of 2011. No new intracranial mass is visible on this noncontrast study. Noacute mass effect or midline shift is present. The basal cisterns are patent. Mild-moderate global parenchymal atrophy and ex vacuo ventriculomegaly are similar to 2015. Orbits: Bilateral intraocular lens replacements are present. The orbits otherwise unremarkable. Paranasal sinuses: A left maxillary sinus mucosal retention cyst is present. No layering fluid is identified. Middle ear cavities Mastoid air cells: The mastoid air cells and middle ear cavities are clear. PAGE 1 Signed Report (CONTINUED) Bones: The osseous structures are unremarkable. Extracranial soft tissues: The extracranial soft tissues are unremarkable. MRA HEAD FINDINGS: Image Quality: The images are moderately motion degraded. Beststudy obtainable at this time. Anterior circulation: The distal ICA, anterior and middle cerebral arteries are patent. No hemodynamically significant stenosis or definite aneurysm is visible, although sensitivity is reduced by motion artifact. Posterior circulation: The distal vertebral arteries are small in caliber, similar to 2015. The basilar artery is chronicallyoccluded, with reconstitution distally from collaterals. The posteriorcerebral arteries are diminutive but appear grossly patent, likely supplied predominantly via collateral flow across the posteriorcommunicating arteries bilaterally. Other findings: The patient's known right parietal lesion is better appreciated on the comparison contrast-enhanced MR of 2010, likelya vascular malformation. IMPRESSION: 1. ACUTE-EARLY SUBACUTE LEFT THALAMIC INFARCT. 2. Chronic basilar artery occlusion. Posterior cerebral arteries diminutive but appear patent, likely supplied predominantly via the posterior communicating arteries. 3. 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 4. Stable 2 cm right parietal lesion, likely a vascular malformation. 5. Extensive patchy white matter hypoattenuation, mildlyprogressed compared to 2015. Entirely nonspecific, differential includessequela of chronic severe microvascular ischemic disease, demyelinating disease (multiple sclerosis, ADEM, Lyme), vasculitis, diabetes, hypertension, or smoking related changes. 6. Additional findings detailed above. PAGE 2 Signed Report (CONTINUED) Dr. Jameson Calderon discussed these findings with Dr. Katie Brand on 01/17/2020 2:50 PM. REPORT SIGNED IN OTHER VENDOR SYSTEM 01/17/2020 Reported By: Jameson Calderon MD CC: Transcribed Date/Time: 01/17/2020 (8217) Classified Ad Clerk: Printed Date/Time: 01/17/2020 (2810) PAGE 3 Signed Report Katie Brand MD IMG MRI ORDERABLES * MR ANGIO HEAD WO CONTRAST (01/17/2020 15:10 EDT) Anatomical Region Laterality Modality Head Magnetic Resonan ce 01/17/2020 15:0 7 EDT Narrative 01/17/2020 15:10 EDT ? EXAM: MAGNETIC RESONANCE IMAGING/MRA HEAD EX. D/ (0312) ? CLINICAL INFORMATION: ? new ataxia ? BRAIN WITHOUT CONTRAST ? MRA HEAD W/O CONTRAST ? Signs and Symptoms/Comments: ??cerebellar ataxia ? Comparisons: MR brain on 01/08/2015, 02/06/2011. CT head on 01/17/2020, ? 01/08/2015. CTA head on 02/16/2015. ? Technique: ? * ??Noncontrast MR brain was performed with the following sequences: ? Sagittal T1, axial T2, axial T2 FLAIR, axial DWI, axial ? susceptibility weighted. ? * ??[id number] MR angiography of the [place] was ? performed with 3-D reconstructions. ? MR BRAIN FINDINGS: ? Image Quality: The images are moderately motion degraded. Best study ? obtainable at this time. ? Brain: Focal restricted diffusion in the left thalamus is compatible ? with ischemia (axial DWI series 4 image 14). Given corresponding T2 ? FLAIR prolongation, this is compatible with acute-early subacute ? infarct (axial T2 FLAIR series 6 image 14). ? Old-appearing bilateral basal ganglia infarcts are present, including ? a small infarct in the right cerebellar hemisphere which appears new ? compared to 2015 (axial T2 series 7 image 5). A small old pontine ? infarct is also suspected (axial T2 series 7 image). Extensive patchy ? T2 prolongation in the supratentorial white matter is nonspecific, ? but mildly progressed compared to 2015, perhaps reflecting sequela of ? advanced chronic microvascular ischemic disease. ? A heterogeneous signal right parietal lobe lesion is stable compared ? to 2015, measuring approximately 2 cm in greatest dimension (axial T2 ? series 7 image 18). This lesion demonstrates prominent ? susceptibility, compatible with old blood products (axial ? susceptibility series 5 image 78). This likely reflects a vascular ? malformation when compared to the contrast-enhanced MR of 2011. No ? new intracranial mass is visible on this noncontrast study. No acute ? mass effect or midline shift is present. The basal cisterns are ? patent. Mild-moderate global parenchymal atrophy and ex vacuo ? ventriculomegaly are similar to 2015. ? Orbits: Bilateral intraocular lens replacements are present. The ? orbits otherwise unremarkable. ? Paranasal sinuses: A left maxillary sinus mucosal retention cyst is ? present. No layering fluid is identified. ? Middle ear cavities ?? Mastoid air cells: The mastoid air cells and ? middle ear cavities are clear. ? PAGE 1 ? Signed Report ? (CONTINUED) ? Bones: The osseous structures are unremarkable. ? Extracranial soft tissues: The extracranial soft tissues are ? unremarkable. ? MRA HEAD FINDINGS: ? Image Quality: The images are moderately motion degraded. Best study ? obtainable at this time. ? Anterior circulation: The distal ICA, anterior and middle cerebral ? arteries are patent. No hemodynamically significant stenosis or ? definite aneurysm is visible, although sensitivity is reduced by ? motion artifact. ? Posterior circulation: The distal vertebral arteries are small in ? caliber, similar to 2015. The basilar artery is chronically occluded, ? with reconstitution distally from collaterals. The posterior cerebral ? arteries are diminutive but appear grossly patent, likely supplied ? predominantly via collateral flow across the posterior communicating ? arteries bilaterally. ? Other findings: The patient's known right parietal lesion is better ? appreciated on the comparison contrast-enhanced MR of 2010, likely a ? vascular malformation. ? IMPRESSION: ? 1. ??ACUTE-EARLY SUBACUTE LEFT THALAMIC INFARCT. ? 2. ??Chronic basilar artery occlusion. Posterior cerebral arteries ? diminutive but appear patent, likely supplied predominantly via the ? posterior communicating arteries. ? 3. 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 described above. ? 4. ??Stable 2 cm right parietal lesion, likely a vascular ? malformation. ? 5. ??Extensive patchy white matter hypoattenuation, mildly progressed ? compared to 2015. Entirely nonspecific, differential includes sequela ? of chronic severe microvascular ischemic disease, demyelinating ? disease (multiple sclerosis, ADEM, Lyme), vasculitis, diabetes, ? hypertension, or smoking related changes. ? 6. ??Additional findings detailed above. ? PAGE 2 ? Signed Report ? (CONTINUED) ? Dr. Jameson Calderon discussed these findings with Dr. Wilson ? Sunday on 01/17/2020 2:50 PM. ? REPORT SIGNED IN OTHER VENDOR SYSTEM 01/17/2020 ?Reported By: Jameson Calderon MD ? CC: ? Transcribed Date/Time: 01/17/2020 (1510) ? Classified Ad Clerk: HIS.[email or web address] ? Printed Date/Time: 01/17/2020 (1330) ? PAGE 3 ? Signed Report ? Procedure Note Jameson Calderon MD - 01/17/2020 EXAM: MAGNETIC RESONANCE IMAGING/MRA HEAD EX. D/ (1435) CLINICAL INFORMATION: new ataxia BRAIN WITHOUT CONTRAST MRA HEAD W/O CONTRAST Signs and Symptoms/Comments: cerebellar ataxia Comparisons: MR brain on 01/08/2015, 02/06/2011. CT head on 01/17/2020, 01/08/2015. CTA head on 02/16/2015. Technique: * Noncontrast MR brain was performed with the following sequences: Sagittal T1, axial T2, axial T2 FLAIR, axial DWI, axial susceptibility weighted. * [id number] MR angiography of the [place] was performed with 3-D reconstructions. MR BRAIN FINDINGS: Image Quality: The images are moderately motion degraded. Beststudy obtainable at this time. Brain: Focal restricted diffusion in the left thalamus iscompatible with ischemia (axial DWI series 4 image 14). Given corresponding T2 FLAIR prolongation, this is compatible with acute-early subacute infarct (axial T2 FLAIR series 6 image 14). Old-appearing bilateral basal ganglia infarcts are present,including a small infarct in the right cerebellar hemisphere which appearsnew compared to 2015 (axial T2 series 7 image 5). A small old pontine infarct is also suspected (axial T2 series 7 image). Extensivepatchy T2 prolongation in the supratentorial white matter is nonspecific, but mildly progressed compared to 2015, perhaps reflecting sequelaof advanced chronic microvascular ischemic disease. A heterogeneous signal right parietal lobe lesion is stablecompared to 2015, measuring approximately 2 cm in greatest dimension (axialT2 series 7 image 18). This lesion demonstrates prominent susceptibility, compatible with old blood products (axial susceptibility series 5 image 78). This likely reflects a vascular malformation when compared to the contrast-enhanced MR of 2011. No new intracranial mass is visible on this noncontrast study. Noacute mass effect or midline shift is present. The basal cisterns are patent. Mild-moderate global parenchymal atrophy and ex vacuo ventriculomegaly are similar to 2015. Orbits: Bilateral intraocular lens replacements are present. The orbits otherwise unremarkable. Paranasal sinuses: A left maxillary sinus mucosal retention cyst is present. No layering fluid is identified. Middle ear cavities Mastoid air cells: The mastoid air cells and middle ear cavities are clear. PAGE 1 Signed Report (CONTINUED) Bones: The osseous structures are unremarkable. Extracranial soft tissues: The extracranial soft tissues are unremarkable. MRA HEAD FINDINGS: Image Quality: The images are moderately motion degraded. Beststudy obtainable at this time. Anterior circulation: The distal ICA, anterior and middle cerebral arteries are patent. No hemodynamically significant stenosis or definite aneurysm is visible, although sensitivity is reduced by motion artifact. Posterior circulation: The distal vertebral arteries are small in caliber, similar to 2015. The basilar artery is chronicallyoccluded, with reconstitution distally from collaterals. The posteriorcerebral arteries are diminutive but appear grossly patent, likely supplied predominantly via collateral flow across the posteriorcommunicating arteries bilaterally. Other findings: The patient's known right parietal lesion is better appreciated on the comparison contrast-enhanced MR of 2010, likelya vascular malformation. IMPRESSION: 1. ACUTE-EARLY SUBACUTE LEFT THALAMIC INFARCT. 2. Chronic basilar artery occlusion. Posterior cerebral arteries diminutive but appear patent, likely supplied predominantly via the posterior communicating arteries. 3. 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 4. Stable 2 cm right parietal lesion, likely a vascular malformation. 5. Extensive patchy white matter hypoattenuation, mildlyprogressed compared to 2015. Entirely nonspecific, differential includessequela of chronic severe microvascular ischemic disease, demyelinating disease (multiple sclerosis, ADEM, Lyme), vasculitis, diabetes, hypertension, or smoking related changes. 6. Additional findings detailed above. PAGE 2 Signed Report (CONTINUED) Dr. Jameson Calderon discussed these findings with Dr. Katie Brand on 01/17/2020 2:50 PM. REPORT SIGNED IN OTHER VENDOR SYSTEM 01/17/2020 Reported By: Jameson Calderon MD CC: Transcribed Date/Time: 01/17/2020 (6864) Classified Ad Clerk: Printed Date/Time: 01/17/2020 (443) PAGE 3 Signed Report Katie Brand MD IMG MRI ORDERABLES * CT HEAD WO CONTRAST (01/17/2020 12:07 EDT) Anatomical Region Laterality Modality Head Computed Tomogra phy 01/17/2020 12:0 4 EDT Narrative 01/17/2020 12:07 EDT ? EXAM: CAT SCAN/HEAD WITHOUT CONTRAST ?EX. D/ (1148) ? CLINICAL INFORMATION: ? truncal ataxia ? HEAD WITHOUT CONTRAST ? Signs and Symptoms/Comments: ??truncal ataxia ? Comparison: CT on 02/16/2015, 01/08/2015. MR on 01/08/2015. ? Technique: Noncontrast CT head was performed with multiplanar ? reformations. ? FINDINGS: ? Brain: A small partially calcified lesion in the right parietal lobe ? remains indeterminate, but is stable compared to 2015 and therefore ? likely benign (axial series 2 image 37). This could reflect a ? vascular malformation such as a cavernoma, or a partially calcified ? neoplasm. A small aberrant vascular structure courses through the ? 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 No acute ? intracranial mass or hemorrhage is identified. No mass effect or ? midline shift is present. The basal cisterns are patent. ? Mild-moderate global parenchymal atrophy and ex vacuo ? ventriculomegaly have mildly progressed compared to 2015. ? Prominent patchy hypoattenuation in the supratentorial white matter ? is nonspecific, but similar to 2015, perhaps reflecting sequela of ? advanced chronic microvascular ischemic disease in a patient this ? age. Intracranial atherosclerotic disease is present. Small old ? infarcts are suspected in the bilateral basal ganglia, supratentorial ? white matter, and cerebellar hemispheres. There is no convincing CT ? evidence of acute infarct, although MR is more sensitive. ? Orbits: Bilateral intraocular lens replacements are present. No acute ? orbital findings are identified. ? Paranasal sinuses: A left maxillary sinus mucosal retention cyst is ? present. No layering fluid is visible. ? Middle ear cavities ?? mastoid air cells: The mastoid air cells and ? middle ear cavities are unremarkable. ? Bones: The osseous structures are unremarkable. ? Extracranial soft tissues: Unremarkable. ? IMPRESSION: ? 1. ??No acute intracranial abnormality. ? 2. ??Suspect small old infarcts in the bilateral basal ganglia, ? supratentorial white matter, and cerebellar hemispheres. No ? convincing CT evidence of acute ischemia, however MR would be far ? PAGE 1 ? Signed Report ? (CONTINUED) ? more sensitive. ? 3. ??Stable small partially calcified right parietal lesion. ? Indeterminate, but likely benign given stability compared to 2015, ? perhaps a vascular malformation or benign calcified neoplasm. ? 4. ??Please see additional chronic findings above. ? REPORT SIGNED IN OTHER VENDOR SYSTEM 01/17/2020 ?Reported By: Jameson Calderon MD ? CC: ? Transcribed Date/Time: 01/17/2020 (1207) ? Classified Ad Clerk: HIS.[email or web address] ? Printed Date/Time: 01/17/2020 (6808) ? PAGE 2 ? Signed Report ? Procedure Note Jameson Calderon MD - 01/17/2020 EXAM: CAT SCAN/HEAD WITHOUT CONTRAST EX. D/ (1148) CLINICAL INFORMATION: truncal ataxia HEAD WITHOUT CONTRAST Signs and Symptoms/Comments: truncal ataxia Comparison: CT on 02/16/2015, 01/08/2015. MR on 01/08/2015. Technique: Noncontrast CT head was performed with multiplanar reformations. FINDINGS: Brain: A small partially calcified lesion in the right parietallobe remains indeterminate, but is stable compared to 2015 and therefore likely benign (axial series 2 image 37). This could reflect a vascular malformation such as a cavernoma, or a partially calcified neoplasm. A small aberrant vascular structure courses through the right lateral ventricle, stable compared to 2015, perhaps a developmental venous anomaly (axial series 2 image 34). No acute intracranial mass or hemorrhage is identified. No mass effect or midline shift is present. The basal cisterns are patent. Mild-moderate global parenchymal atrophy and ex vacuo ventriculomegaly have mildly progressed compared to 2015. Prominent patchy hypoattenuation in the supratentorial white matter is nonspecific, but similar to 2015, perhaps reflecting sequela of advanced chronic microvascular ischemic disease in a patient this age. Intracranial atherosclerotic disease is present. Small old infarcts are suspected in the bilateral basal ganglia,supratentorial white matter, and cerebellar hemispheres. There is no convincing CT evidence of acute infarct, although MR is more sensitive. Orbits: Bilateral intraocular lens replacements are present. Noacute orbital findings are identified. Paranasal sinuses: A left maxillary sinus mucosal retention cyst is present. No layering fluid is visible. Middle ear cavities mastoid air cells: The mastoid air cells and middle ear cavities are unremarkable. Bones: The osseous structures are unremarkable. Extracranial soft tissues: Unremarkable. IMPRESSION: 1. No acute intracranial abnormality. 2. 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 No convincing CT evidence of acute ischemia, however MR would be far PAGE 1 Signed Report (CONTINUED) more sensitive. 3. Stable small partially calcified right parietal lesion. Indeterminate, but likely benign given stability compared to 2015, perhaps a vascular malformation or benign calcified neoplasm. 4. Please see additional chronic findings above. REPORT SIGNED IN OTHER VENDOR SYSTEM 01/17/2020 Reported By: Jameson Calderon MD CC: Transcribed Date/Time: 01/17/2020 (0930) Classified Ad Clerk: Printed Date/Time: 01/17/2020 (9339) PAGE 2 Signed Report Katie Brand MD IMG CT ORDERABLES documented in this encounter Visit Diagnoses Not on filedocumented in this encounter Additional Health Concerns Infection Onset Date Last Indicated Resolved Time R/O COVID-19 Comment:Covid neg. 02/21/2022 02/21/2022 02/21/2022 10:07 EDT Rule-Out C. difficile 02/21/2022 02/21/20222021 14:01 EDT documented as of this encounter Care Teams Sales And Marketing Intern Relationship Specialty Start Date End Date Nivia Tinsley MD [address] [place], [place] [phone] PCP - General Family Medicine - Primary Care 08/27/19 Reagan Pickett MD [address] [place], [place] [address] Cardiovascular Disease 09/01/19 0 Zheng Tapia MD [address] [place] [address] [address] [place] [address] Internal Medicine - Primary Care 09/01/19 Shazia Burks MD [address] [place] [address] Neurology 09/01/19 Tony Baron, FRANCK [address] [place] [phone] Bilingual Hr Generalist 09/01/19 Keira Paniagua MD [address] [place] [address] [address] [place] [address] Cardiovascular Disease 09/06/20 Siva Perkins MD [address] [place] [address] Neurology 09/06/20 Sheryl Schwab, ANA [address] [place] [address] Animal Care Specialist 01/23/24 01/23/24 Ladonna Candelario Animal Care Specialist 01/23/24 documented as of this encounter
--- OUTSIDE RECORDS SUMMARY | 2024-04-29 18:29 | XMS_ITS | Encounter Summary ---
Author Organization [facility] Address [address] [place] [address] Care Team Providers Care Sprinkler Irrigation Equipment Mechanic Name Role Phone Nivia Tinsley MD Primary Care Provider Reagan Pickett MD Unavailable [phone] Zheng Tapia MD Unavailable Shazia Burks MD Unavailable [phone] Tony Baron OD Unavailable [phone] Reason for Visit * Reason Onset Date Comments Medications Refill 12/23/2019 Encounter Details Date Type Department Care Team (Late st Contact Info) Description 12/23/2019 Telephone [facility] Integrative Family Medicine [address] [address] Sherly Mei, ANA Medications Refill Social History [...] Telephone Encounter - Stephanie Sheridan RN - 12/23/2019 1305 EDT Pt is aware and is very appreciative for everything we are doing. * Telephone Encounter - Sherly Mei RN - 12/23/2019 1220 EDT Called [facility] twice today, is out of levothyroxine, says pharmacy called us and no one has responded. Sounds rather upset. Fax request is dated 12/20, we rec'd it yesterday from pharmacy, I sent the rx at 12:30 this am. I would guess it's ready for spanish moss picker, but she should call pharmacy to verify. documented in this encounter Plan of Treatment Upcoming Encounters Date Type Department Care Team (Late st Contact Info) Description 06/11/2024 12:45 EDT Office Visit [facility] Ophthalmology - [place] [address] [place], [place] [phone] Santiago Anthony MD 111 [facility], [facility] 5 [place] [address] 07/15/2024 10:45 EDT Office Visit [facility] Clinic [address] [place], [place] [phone] Gianfranco Flowers MD 130 [facility] [address] [place] [address] documented as of this encounter Visit Diagnoses Not on filedocumented in this encounter Care Teams Sprinkler Irrigation Equipment Mechanic Relationship Specialty Start Date End Date Nivia Tinsley MD [address] [place], [place] [phone] PCP - General Family Medicine - Primary Care 08/27/19 Reagan Pickett MD [address] [place] [phone] Cardiovascular Disease 09/01/19 0 Zheng Tapia MD [address] [place] [address] [address] [place] [address] Internal Medicine - Primary Care 09/01/19 Shazia Burks MD [address] [place], [place] 56[address] Neurology 09/01/19 Tony Baron OD [address] [place] [address] Prosthetic Lab Technician 09/01/19 documented as of this encounter
--- OUTSIDE RECORDS SUMMARY | 2024-04-29 18:29 | XMS_ITS | Encounter Summary ---
Author Organization [facility] Address [address] [place] [address] Care Team Providers Care Content Writer Name Role Phone Nivia Tinsley MD Primary Care Provider Reagan Picktet MD Unavailable [phone] Zheng Tapia MD Unavailable Shazia Burks MD Unavailable [phone] Tony Baron OD Unavailable [phone] Encounter Details Date Type Department Care Team (Late st Contact Info) Description 01/17/2020 Results Only [facility]- [facility] [phone] Maynor Segal MD [address] [place] [address] Social History Tobacco Use Types Packs/Day Years [...] [facility] Ophthalmology - [address] [phone] Santiago Anthony MD [address] [place] [address], [facility] 5 [place] [address] 07/15/2024 10:45 EDT Office Visit [facility] Cardiology Clinic [address] [place] [address] Gianfranco Flowers MD [address] [facility] [address] [place] [address] documented as of this encounter Procedures Procedure Name Priority Date/Time Associated Diagnosis Comments COMPLETE BLOOD COUNT WITH DIFFERENTIAL (AUTO) Routine 01/17/2020 6:00 EDT D-DIMER Routine 01/17/2020 6:00 EDT HEMOGLOBIN A1C Routine 01/17/2020 6:00 EDT COMPREHENSIVE METABOLIC PANEL (CMP) Routine 01/17/2020 6:00 EDT documented in this encounter Results * (ABNORMAL) HEMOGLOBIN A1C (01/17/2020 6:00 EDT) Hemoglobin A1c 6.5(H) 4.0 - 6.0 % 01/18/2020 19:29 EDT [facility] Comment: > or =18 years: ??Increased risk for diabetes (prediabetes): 5.7-6.4% Diabetes: > or =6.5% Therapeutic goals for glycemic control (ADA) Adults: - Goal of therapy: <7.0% HbA1c - Action suggested: >8.0% HbA1c Pediatric patients: - Toddlers and preschoolers: <8.5% (but >7.5%) - School age (6-12 years): <8% - Adolescents and young adults (13-19 years): <7.5% Est Avg Glucose 140 mg/dL 0 19:29 EDT [facility] 01/17/2020 6:00 EDT 01/17/2020 6:50 EDT Maynor Segal MD CHEMISTRY & B LOOD GAS ORDERABLES [facility] * D-DIMER (01/17/2020 6:00 EDT) D-Dimer 187 <230 ng/mLDDU 01/17/2020 7:23 EDT [facility] Comment: CUTOFF VALUE FOR THE EXCLUSION OF DVT and PE: 230 ng/mL D-dimer units. Any use of the age-adjusted cutoff value is a post-analytic modification of this FDA-approved test and is considered off-label use of the test result. [facility] Laboratory does not have literature to support the validity of an age-adjusted cutoff for our specific assay. 01/17/2020 6:00 EDT 01/17/2020 6:50 EDT Maynor Segal MD HEMATOLOGY & PF4 ORDERABLES [facility] * (ABNORMAL) COMPLETE BLOOD COUNT WITH DIFFERENTIAL (AUTO) (01/17/2020 6:00 EDT) Gran # 5.1 2.2 - 8.85 10e3/uL 01/17/2020 7:21 EDT [facility] BASO # - [facility] 0.07 0.01 - 0.11 10e/uL 01/17/2020 7:21 EDT [facility] BASO % - [facility] 1 0 - 2 % 01/17/2020 7:21 EDT [facility] EOS # - [facility] 0.44 0.03 - 0.61 10e3/ul 01/17/2020 7:21 EDT [facility] EOS % - [facility] 6(H) 0 - 5 % 01/17/2020 7:21 EDT [facility] GRAN % - [facility] 63.5 40 - 80 % 01/17/2020 7:21 EDT [facility] HEMATOCRIT - [facility] 39.9 34.9 - 44.4 % 01/17/2020 7:21 EDT [facility] HEMOGLOBIN - [facility] 13.5 11.6 - 15.2 g/dl 01/17/2020 7:21 EDT [facility] IG# - [facility] 0.02 0 - 0.7 10e3/uL 01/17/2020 7:21 EDT [facility] IG% - [facility] 0.2 0 - 0.9 % 01/17/2020 7:21 EDT [facility] LYMPH # - [facility] 1.5 1.09 - 3.3 10e3/ul 01/17/2020 7:21 EDT [facility] LYMPH% - [facility] 18.6(L) 20 - 40 % 01/17/2020 7:21 EDT [facility] MEAN CORPUSCULAR HGB - [facility] 32.1 26.7 - 33.3 pg 01/17/2020 7:21 [facility] MEAN CORPUSCULAR HGB CONC - [facility] 33.8 32.1 - 35.9 g/dL 01/17/2020 7:21 [facility] MEAN CELL VOLUME - [facility] 95.0 81 - 98 fl 01/17/2020 7:21 [facility] MONO # - [facility] 0.9(H) 0.1 - 0.8 10e3/uL 01/17/2020 7:21 [facility] MONO% - [facility] 11.3 0 - 12 % 01/17/2020 7:21 [facility] PLATELET COUNT 227 141 - 377 10e3/ul 01/17/2020 7:21 [facility] RED BLOOD COUNT - [facility] 4.20 3.86 - 5.04 10e3/ul 01/17/2020 7:21 [facility] RED CELL DISTRI WIDTH - [facility] 13.2 <14.7 % 01/17/2020 7:21 [facility] WHITE BLOOD COUNT - [facility] 8.0 4.0 - 12.4 10e3/ul 01/17/2020 7:21 [facility] 01/17/2020 6:00 EDT 01/17/2020 6:50 EDT Maynor Segal MD HEMATOLOGY & PF4 ORDERABLES [facility] * (ABNORMAL) COMPREHENSIVE METABOLIC PANEL (CMP) (01/17/2020 6:00 EDT) Albumin % 3.7 3.4 - 4.9 g/dL 01/17/2020 7:20 [facility] ALKALINE PHOSPHATASE - [facility] 83 38 - 126 U/L 01/17/2020 7:20 [facility] BILIRUBIN TOTAL 0.9 0.2 - 1.3 mg/dL 01/17/2020 7:20 [facility] BUN - [facility] 19 10 - 26 mg/dL 01/17/2020 7:20 [facility] CALCIUM - [facility] 9.2 8.5 - 10.5 mg/dL 01/17/2020 7:20 [facility] Chloride 104 96 - 110 mmol/L 01/17/2020 7:20 [facility] CO2 Total 21(L) 22 - 32 mEq/L 01/17/2020 7:20 [facility] CREATININE 0.83 0.52 - 1.04 mg/dL 01/17/2020 7:20 [facility] eGFR >60 01/17/2020 7:20 [facility] Comment: Chronic renal impairment is defined as GFR <60 Multiply result by 1.210 for patients. eGFR calculated using the IDMS-traceable MDRD Study Equation. ??(effective 08/03/2014) Anion Gap 9 0 - 18 01/17/2020 7:20 [facility] GLUCOSE - [facility] 142(H) 70 - 100 mg/dL 01/17/2020 7:20 [facility] Potassium 4.3 3.5 - 5.0 mEq/L 01/17/2020 7:20 [facility] Sodium 134(L) 136 - 145 mEq/L 01/17/2020 7:20 [facility] TOTAL PROTEIN - [facility] 6.4 6.2 - 8.2 gm/dL 01/17/2020 7:20 [facility] SGOT/AST - [facility] 26 14 - 36 U/L 01/17/2020 7:20 [facility] SGPT/ALT - [facility] 27 0 - 35 U/L 0 7:20 [facility] 01/17/2020 6:00 EDT 01/17/2020 6:50 EDT Maynor Segal MD CHEMISTRY & B LOOD GAS ORDERABLES [facility] documented in this encounter Visit Diagnoses Not on filedocumented in this encounter Care Teams Content Writer Relationship Specialty Start Date End Date Nivia Tinsley MD [address] [place] [address] PCP - General Family Medicine - Primary Care 08/27/19 Reagan Pickett MD [address] [place], [place] [address] Cardiovascular Disease 09/01/19 0 Zheng Tapia MD [address] [place] [address] [address] [place] [phone] Internal Medicine - Primary Care 09/01/19 Shazia Burks MD [address] [place] [address] Neurology 09/01/19 Tony Baron OD [address] [place] [phone] Mutual Fund Analyst 09/01/19 documented as of this encounter
--- OUTSIDE RECORDS SUMMARY | 2024-04-29 18:29 | XMS_ITS | Encounter Summary ---
Author Organization [facility] Address [address] [place] [address] Care Team Providers Care Printed Circuit Board Panels Developer Name Role Phone Nivia Tinsley MD Primary Care Provider [phone] Regaan Pickett MD Unavailable [phone] Zheng Tapia MD Unavailable Shazia Burks MD Unavailable [phone] Tony Baron OD Unavailable [phone] Reason for Visit * Reason Onset Date Comments Knee Pain 12/26/2019 Encounter Details Date Type Department Care Team (Late st Contact Info) Description 12/26/2019 Telephone [facility] Integrative Family Medicine [facility] [address] [place] [address] Nivia Tinsley MD [address] [place], [place] [phone] Knee Pain Social History Tobacco Use Types Packs/Day [...] Telephone Encounter - Stephanie Sheridan RN - 12/26/2019 1601 EDT Pt will use tylenol/ibuprofen at this time and call back if she wants mobic * Telephone Encounter - Nivia Tinsley MD - 12/26/2019 0948 EDT We could try Mobic 7.5 mg daily with a meal. * Telephone Encounter - Stephanie Sheridan RN - 12/26/2019 0909 EDT Tylenol, rest, ice/heat, and compression? Any other suggestions? * Telephone Encounter - Lashanda Moffett - 12/26/2019 0843 EDT Pt called wondering what she can do to manage her pain from osteoarthritis. She recently had a kneexray that showed some osteoarthritis. She doesn't really want to go the ortho route because she feels they would push her into a total knee replacement which she really doesn't want to do. She doesn't really want to take any heavy-duty medications but would like some recommendations of something s he could take to alleviate some of the pain. documented in this encounter Plan of Treatment Upcoming Encounters Date Type Department Care Team (Late st Contact Info) Description 06/11/2024 12:45 EDT Office Visit [facility] - [address] [phone] Santiago Anthony MD [address] [place] [address] 5 [place] [address] 07/15/2024 10:45 EDT Office Visit [facility] Cardiology Clinic [address] [place], [place] [address] Gianfranco Flowers MD 130 [facility] [address] [place] [address] documented as of this encounter Visit Diagnoses Not on filedocumented in this encounter Care Teams Printed Circuit Board Panels Developer Relationship Specialty Start Date End Date Nivia Tinsley MD [address] [place], [place] [address] PCP - General Family Medicine - Primary Care 08/27/19 Reagan Pickett MD [address] [place], [place] [phone] Cardiovascular Disease 09/01/19 0 Zheng Tapia MD [address] [place] [address] [address] [place] [phone] Internal Medicine - Primary Care 09/01/19 Shazia Burks MD [address] [place] [address]67 Neurology 09/01/19 Tony Baron OD [address] [place] [phone] Maintenance Data Analyst 09/01/19 documented as of this encounter
--- OUTSIDE RECORDS SUMMARY | 2024-04-29 18:29 | XMS_ITS | Encounter Summary ---
Author Organization [facility] Address [address] [place] [address] Care Team Providers Care Long Distance Operator Name Role Phone Nivia Tinsley MD Primary Care Provider [phone] Reagan Pickett MD Unavailable Zheng Tapia MD Unavailable Shazia Burks MD Unavailable [phone] Tony Baron OD Unavailable [phone] Reason for Visit * Reason Onset Date Comments Prior Auth, Medication 12/23/2019 Encounter Details Date Type Department Care Team (Late st Contact Info) Description 12/23/2019 Telephone [facility] Family Medicine [address] [address] Stephanie Sheridan RN Prior Auth, Medication Social History Tobacco Use [...] Telephone Encounter - Stephanie Sheridan RN - 12/24/2019 0932 EDT PA was denied. Py has got levothyroxine several times in the past. Pharm is aware that tirosint PA was denied. Pt has not p/u her rx yet as the pharm is expecting a shipment of levothyroxine today. * Telephone Encounter - Stephanie Sheridan RN - 12/23/2019 1643 EDT Tirosint PA submitted via [employer] documented in this encounter Plan of Treatment Upcoming Encounters Date Type Department Care Team (Late st Contact Info) Description 06/11/2024 12:45 EDT Office Visit [facility] Ophthalmology [address] [address] Santiago Anthony MD 111 [facility], [facility] 5 [place] [address] 07/15/2024 10:45 EDT Office Visit [facility] Cardiology Clinic [address] [place], [place] [address] Gianfranco Flowers MD 130 [facility] [address] [place] [address] documented as of this encounter Visit Diagnoses Not on filedocumented in this encounter Care Teams Long Distance Operator Relationship Specialty Start Date End Date Nivia Tinsley MD [address] [place] [phone] PCP - General Family Medicine - Primary Care 08/27/19 Reagan Pickett MD [address] [place] [phone] Cardiovascular Disease 09/01/19 0 Zheng Tapia MD [address] [place] [address] [address] [place] [phone] Internal Medicine - Primary Care 09/01/19 Shazia Bukrs MD [address] [place] [address]67 Neurology 09/01/19 Tony Baron OD [address] [place] [phone] Miller Head Wet Process 09/01/19 documented as of this encounter
--- OUTSIDE RECORDS SUMMARY | 2024-04-29 18:29 | XMS_ITS | Encounter Summary ---
Author Organization [facility] Address [address] [place] [address] Care Team Providers Care Panel Edge Painter Name Role Phone Nivia Tinsley MD Primary Care Provider [phone] Reagan Pickett MD Unavailable [phone] Zheng Tapia MD Unavailable Shazia Burks MD Unavailable [phone] Tony Baron OD Unavailable [phone] Reason for Visit * Reason Onset Date Comments Medications Refill 12/23/2019 Encounter Details Date Type Department Care Team (Late st Contact Info) Description 12/23/2019 Refill [facility] Integrative Family Medicine [address] [address] Sherly Kimbrough, ANA Medications Refill [...] Dispensed Refills Start Date End Da te Levothyroxine 100 mcg capsule Take 1 Tab by mouth daily. 90 Cap 3 12/23/2019 12/23/2019 documented in this encounter Miscellaneous Notes * Telephone Encounter - Sherly Kimbrough RN - 12/23/2019 0024 EDT Refill levothyroxine; pt also called [facility] on 12/21 at 1407, is out of med. ZURI -09/30/19 NOV - none last TSH - 07/11/19 Rx(s) escribed to pharmacy. SHERLY KIMBROUGH, RN documented in this encounter Plan of Treatment Upcoming Encounters Date Type Department Care Team (Late st Contact Info) Description 06/11/2024 12:45 EDT Office Visit [facility] Ophthalmology [address] [address] Santiago Anthony MD 111 [facility], [address] [place] [address] 07/15/2024 10:45 EDT Office Visit [facility] Cardiology Clinic [address] [place], [place] [phone] Gianfranco Flowers MD 130 [facility] [address] [place] [address] documented as of this encounter Visit Diagnoses Not on filedocumented in this encounter Discontinued Medications Medication Sig Discontinue Reason Start Date End Da te Levothyroxine 100 mcg capsule Take 1 Tab by mouth. Reorder 12/23/2019 documented as of this encounter Care Teams Panel Edge Painter Relationship Specialty Start Date End Date Nivia Tinsley MD [address] [place] [address] PCP - General Family Medicine - Primary Care 08/27/19 Reagan Pickett MD [address] [place] [address] Cardiovascular Disease 09/01/19 0 Zheng Tapia MD [address] [place] [address] [address] [place] [address] Internal Medicine - Primary Care 09/01/19 Shazia Burks MD [address] [place], [place] [address] Neurology 09/01/19 Tony Baron OD [address] [place] [phone] Bus Starter 09/01/19 documented as of this encounter
--- OUTSIDE RECORDS SUMMARY | 2024-04-29 18:29 | XMS_ITS | Encounter Summary ---
Author Organization [facility] Address [address] [place] [address] Care Team Providers Care Deli Cook Name Role Phone Nivia Tinsley MD Primary Care Provider Reagan Pickett MD Unavailable [phone] Zheng Tapia MD Unavailable Shazia Burks MD Unavailable [phone] Tony Baron OD Unavailable [phone] Encounter Details Date Type Department Care Team (Late st Contact Info) Description 01/16/2020 Results Only [facility] - Main [address] [address] Liu Machuca MD Social History Tobacco Use [...] Description 06/11/2024 12:[address] [facility] Ophthalmology [address] [address] Santiago Anthony MD [address] [place] [address] 5 [place] [address] 07/15/2024 10:45 EDT Office Visit [facility] Cardiology Clinic [address] [place], [place] [address] Gianfranco Flowers MD 130 [facility] [address] [place] [address] documented as of this encounter Procedures Procedure Name Priority Date/Time Associated Diagnosis Comments COVID-19 TESTING Routine 01/16/2020 15:5 1 EDT VIT D, 25-HYDROXY - [facility] Routine 01/16/2020 9:55 EDT NT-PROBNP SERPL-MCNC - [facility] Routine 01/16/2020 9:55 EDT COMPLETE BLOOD COUNT WITH DIFFERENTIAL (AUTO) Routine 01/16/2020 9:55 EDT TROPONIN I Routine 01/16/2020 9:55 EDT C REACTIVE PROTEIN Routine 01/16/2020 9: 55 EDT TSH Routine 01/16/2020 9:55 EDT MAGNESIUM Routine 01/16/2020 9:55 EDT FERRITIN Routine 01/16/2020 9:55 EDT VITAMIN B12 Routine 01/16/2020 9:55 EDT CK Routine 01/16/2020 9:55 EDT COMPREHENSIVE METABOLIC PANEL (CMP) Routine 01/16/2020 9:55 EDT documented in this encounter Results * COVID-19 TESTING (01/16/2020 15:51 EDT) [facility] COVID-19 rt-PCR Result Not Detected 01/16/2020 18:04 EDT [facility] Comment: The 2019 novel coronavirus (SARS-CoV-2) target nucleic acids are not detected. Result called to ERIKA SMITH/DAYANA2 01/16/20 1802: Result called by 01/16/2020 15:5 1 EDT 01/16/2020 16:59 EDT Maynor Segal MD MICROBIOLOGY - GENERAL ORDERABLES [facility] * VIT D, 25-HYDROXY - [facility] (01/16/2020 9:55 EDT) [facility] VIT D, 25 HYDROXY - [facility] 49.8 30 - 100 ng/ml 01/16/2020 17:16 EDT [facility] Comment: ? 25-Hydroxy D Total (D2+D3) ?Expected Values Deficient: ?<20 ng/ml Insufficient: ? 20- <30 ng/ml Sufficient: ? 30-100 ng/ml Potential intoxication: >100 ng/ml 01/16/2020 9:55 EDT 01/16/2020 16:12 EDT Liu Machuca MD CHEMISTRY & BLOOD GA S ORDERABLES Performing Organization Address [facility] de Phone Number [facility] * TSH (01/16/2020 9:55 EDT) [facility] THYROID STIM HORMONE [facility] 0.83 0.46 - 4.68 uIU/ml 01/16/2020 17:16 EDT [facility] Comment: The results of this assay can be falsely lowered due to the consumption of Biotin. 01/16/2020 9:55 EDT 01/16/2020 16:12 EDT Liu Machuca MD CHEMISTRY & BLOOD GA S ORDERABLES Performing Organization Address [facility] de Phone Number [facility] * VITAMIN B12 (01/16/2020 9:55 EDT) [facility] VITAMIN B12 [facility] 561 239 - 931 pg/mL 01/16/2020 17:16 EDT [facility] Comment: The results of this assay can be falsely elevated due to the consumption of Biotin. 01/16/2020 9:55 EDT 01/16/2020 16:12 EDT Liu Machuca MD CHEMISTRY & BLOOD GA S ORDERABLES Performing Organization Address [facility]/ZIP Co de Phone Number [facility] * FERRITIN (01/16/2020 9:55 EDT) Pathologist [facility] FERRITIN [facility] 234 11.1 - 264.0 ng/mL 01/16/2020 17:07 EDT [facility] Comment: The results of this assay can be falsely lowered due to the consumption of Biotin. 01/16/2020 9:55 EDT 01/16/2020 10:08 EDT [facility] - 01/16/2020 17:07 EDT AOT: 01/16/20 1611: TSH, SOPHIE, CPK, BNP, VD25, B12 Liu Machuca MD CHEMISTRY & BLOOD GA S ORDERABLES [facility] * CK (01/16/2020 9:55 EDT) [facility] CPK [facility] 82 30 - 135 U/L 01/16/2020 16:26 EDT [facility] 01/16/2020 9:55 EDT 01/16/2020 10:08 EDT [facility] - 01/16/2020 17:07 EDT AOT: 01/16/20 1611: TSH, SOPHIE, CPK, BNP, VD25, B12 Liu Machuca MD CHEMISTRY & BLOOD GA S ORDERABLES [facility] * [facility] (01/16/2020 9:55 EDT) [facility] NT-pro BNP 139 <300 pg/mL 01/16/2020 17:07 EDT [facility] Comment: NT-proBNP values less than 300 pg/ml have a 99% negative predictive value for excluding acute congestive heart failure. A diagnostic NT-proBNP cutoff of 900 pg/ml has been suggested in adults over 50 years of age in the absence of renal failure. A cutoff of 1200 pg/ml for patients with eGFR <60 yields a diagnostic sensitivity and specificity of 89% and 72% for acute congestive failure. (OCD Lio Manzanares, PhD, The International Collaborative of NT-proBNP (ICON) Study The results of this assay can be falsely lowered due to the consumption of Biotin. 01/16/2020 9:55 EDT 01/16/2020 10:08 EDT Narrative [facility] - 01/16/2020 17:07 EDT AOT: 01/16/20 1611: TSH, SOPHIE, CPK, BNP, VD25, B12 Liu Machuca MD CHEMISTRY & BLOOD GA S ORDERABLES Performing Organization Address [facility] de Phone Number [facility] * TROPONIN I (01/16/2020 9:55 EDT) Troponin I (ng/mL) <0.034 0.000 - 0.034 ng/mL 01/16/2020 10:39 EDT [facility] Comment: Interpretation comments: ??Cutoff for a positive troponin result is set at the 99th percentile of the upper reference limit. ??Elevated troponin must always be interpreted in the context of the clinical presentation. ?Serial troponin testing 3-6 hr from baseline is favored over relying on a single troponin level. ?? The results of this assay can be falsely lowered due to the consumption of Biotin. 01/16/2020 9:55 EDT 01/16/2020 10:09 EDT Liu Machuca MD CHEMISTRY & BLOOD GA S ORDERABLES Performing Organization Address [facility] Co de Phone Number [facility] * MAGNESIUM (01/16/2020 9:55 EDT) Magnesium 1.90 1.7 - 2.8 mg/dL 01/16/2020 10:32 EDT [facility] 01/16/2020 9:55 EDT 01/16/2020 10:08 EDT Narrative [facility] - 01/16/2020 17:07 EDT AOT: 01/16/20 1611: TSH, SOPHIE, CPK, BNP, VD25, B12 Liu Machuca MD CHEMISTRY & BLOOD GA S ORDERABLES [facility] * C REACTIVE PROTEIN (01/16/2020 9:55 EDT) [facility] C-Reactive Protein 5.4 <10.0 mg/L 01/16/2020 10:32 [facility] 01/16/2020 9:55 EDT 01/16/2020 10:08 EDT [facility] - 01/16/2020 17:07 EDT AOT: 01/16/20 1611: TSH, SOPHIE, CPK, BNP, VD25, B12 Liu Machuca MD CHEMISTRY & BLOOD GA S ORDERABLES Performing Organization Address City/[facility]/ZIP Co de Phone Number [facility] * (ABNORMAL) COMPREHENSIVE METABOLIC PANEL (CMP) (01/16/2020 9:55 EDT) [facility] Albumin % 4.6 3.4 - 4.9 g/dL 01/16/2020 10:32 [facility] ALKALINE PHOSPHATASE - [facility] 126 38 - 126 U/L 01/16/2020 10:32 [facility] BILIRUBIN TOTAL 0.9 0.2 - 1.3 mg/dL 01/16/2020 10:32 [facility] BUN - [facility] 19 10 - 26 mg/dL 01/16/2020 10:32 [facility] CALCIUM - [facility] 9.7 8.5 - 10.5 mg/dL 01/16/2020 10:32 [facility] Chloride 102 96 - 110 mmol/L 01/16/2020 10:32 [facility] CO2 Total 22 22 - 32 mEq/L 01/16/2020 10:32 [facility] CREATININE 0.68 0.52 - 1.04 mg/dL 01/16/2020 10:32 [facility] eGFR >60 01/16/2020 10:32 [facility] Comment: Chronic renal impairment is defined as GFR <60 Multiply result by 1.210 for patients. eGFR calculated using the IDMS-traceable MDRD Study Equation. ??(effective 08/03/2014) Anion Gap 11 0 - 18 01/16/2020 10:32 EDT [facility] GLUCOSE - [facility] 151(H) 70 - 100 mg/dL 01/16/2020 10:32 [facility] Potassium 4.3 3.5 - 5.0 mEq/L 01/16/2020 10:32 T [facility] Sodium 135(L) 136 - 145 mEq/L 01/16/2020 10:32 [facility] TOTAL PROTEIN - [facility] 7.9 6.2 - 8.2 gm/dL 01/16/2020 10:32 [facility] SGOT/AST - [facility] 33 14 - 36 U/L 01/16/2020 10:32 [facility] SGPT/ALT - [facility] 37(H) 0 - 35 U/L 0 10:32 [facility] 01/16/2020 9:55 EDT 01/16/2020 10:08 EDT [facility] - 01/16/2020 17:07 EDT AOT: 01/16/20 1611: TSH, SOPHIE, CPK, BNP, VD25, B12 Liu Machuca MD CHEMISTRY & BLOOD GA S ORDERABLES [facility] * (ABNORMAL) COMPLETE BLOOD COUNT WITH DIFFERENTIAL (AUTO) (01/16/2020 9:55 EDT) Gran # 8.3 2.2 - 8.85 10e3/uL 01/16/2020 10:16 EDT [facility] BASO # - [facility] 0.05 0.01 - 0.11 10e/uL 01/16[facility]2020 [facility] 1 0 - 2 % 01/16/2020 10:16 EDT [facility] EOS # - [facility] 0.21 0.03 - 0.61 10e3/ul 01/16/2020 10:16 [facility] EOS % - [facility] 2 0 - 5 % 01/16/2020 10:16 [facility] GRAN % - [facility] 80.5(H) 40 - 80 % 01/16/2020 10:16 [facility] HEMATOCRIT - [facility] 44.5(H) 34.9 - 44.4 % 01/16/2020 10:16 [facility] HEMOGLOBIN - [facility] 15.2 11.6 - 15.2 g/dl 01/16/2020 10:16 [facility] IG# - [facility] 0.05 0 - 0.7 10e3/uL 01/16/2020 10:16 [facility] IG% - [facility] 0.5 0 - 0.9 % 01/16/2020 10:16 [facility] LYMPH # - [facility] 1.0(L) 1.09 - 3.3 10e3/ul 01/16/2020 10:16 [facility] LYMPH% - [facility] 9.6(L) 20 - 40 % 01/16/2020 10:16 [facility] MEAN CORPUSCULAR HGB - [facility] 31.9 26.7 - 33.3 pg 01/16/2020 10:16 [facility] MEAN CORPUSCULAR HGB CONC - [facility] 34.2 32.1 - 35.9 g/dL 01/16/2020 10:16 [facility] MEAN CELL VOLUME - [facility] 93.3 81 - 98 fl 01/16/2020 10:16 [facility] MONO # - [facility] 0.7 0.1 - 0.8 10e3/uL 01/16/2020 10:16 [facility] MONO% - [facility] 6.9 0 - 12 % 01/16/2020 10:16 [facility] PLATELET COUNT 245 141 - 377 10e3/ul 01/16/2020 10:16 [facility] RED BLOOD COUNT - [facility] 4.77 3.86 - 5.04 10e3/ul 01/16/2020 10:16 EDT [facility] RED CELL DISTRI WIDTH - [facility] 12.7 <14.7 % 01/16/2020 10:16 EDT [facility] WHITE BLOOD COUNT - [facility] 10.4 4.0 - 12.4 10e3/ul 01/16/2020 10:16 EDT [facility] 01/16/2020 9:55 EDT 01/16/2020 10:09 EDT Liu Machuca MD HEMATOLOGY & PF4 ORD ERABLES [facility] documented in this encounter Visit Diagnoses Not on filedocumented in this encounter Care Teams Deli Cook Relationship Specialty Start Date End Date Nivia Tinsley MD [address] [place] [address] PCP - General Family Medicine - Primary Care 08/27/19 Reagan Pickett MD [address] [place] [address] Cardiovascular Disease 09/01/19 0 Zheng Tapia MD [address] [place] [address] [place] [phone] Internal Medicine - Primary Care 09/01/19 Shazia Burks MD [address] [place] [address] Neurology 09/01/19 Tony Baron OD [address] [place] [phone] Heel Pricker 09/01/19 documented as of this encounter
--- OUTSIDE RECORDS SUMMARY | 2024-04-29 18:29 | XMS_ITS | Encounter Summary ---
Author Organization [facility] Address [address] [place] [address] Care Team Providers Care Hand Sizer Name Role Phone Nivia Tinsley MD Primary Care Provider Reagan Pickett MD Unavailable [phone] Zheng Tapia MD Unavailable Shazia Burks MD Unavailable [phone] Tony Baron OD Unavailable [phone] Reason for Visit * Reason Onset Date Comments Medications Refill 12/23/2019 Encounter Details Date Type Department Care Team (Late st Contact Info) Description 12/23/2019 Refill [facility] Integrative Family Medicine [facility] [address] [place] [address] Nivia Tinsley MD [address] [place], [place] [phone] Medications Refill Social History Tobacco Use Types [...] by mouth daily. 90 Cap 3 12/23/2019 02/27/2020 documented in this encounter Miscellaneous Notes * Telephone Encounter - Lashanda Moffett - 12/23/2019 1506 EDT Medication Requested: levothyroxine 100 mcg 90 qd Last OV:09/30/2019 Next OV: None Pharmacy Of Choice: [facility] to fill as pended? documented in this encounter Plan of Treatment Upcoming Encounters Date Type Department Care Team (Late st Contact Info) Description 06/11/2024 12:45 EDT Office Visit [facility] Ophthalmology [facility] [address] [place] [address] Santaigo Anthony MD [address] [facility], [address] [place] [address] 07/15/2024 10:45 EDT Office Visit [facility] Cardiology Clinic [address] [place], [place] [phone] Gianfranco Flowers MD 130 [facility] [address] [place] [phone] documented as of this encounter Visit Diagnoses Not on filedocumented in this encounter Discontinued Medications Medication Sig Discontinue Reason Start Date End Da te Levothyroxine 100 mcg capsule Take 1 Tab by mouth daily. Reorder 12/23/2019 12/23/2019 documented as of this encounter Care Teams Hand Sizer Relationship Specialty Start Date End Date Nivia Tinsley MD [address] [place], [place] [phone] PCP - General Family Medicine - Primary Care 08/27/19 Reagan Pickett MD [address] [place] [phone] Cardiovascular Disease 09/01/19 0 Zheng Tapia MD [address] [place] [address] [address] [place] [address] Internal Medicine - Primary Care 09/01/19 Shazia Burks MD [address] [place], [place] [address] Neurology 09/01/19 Tony Baron OD [address] [place] [phone] Gear Finisher 09/01/19 documented as of this encounter
--- OUTSIDE RECORDS SUMMARY | 2024-04-29 18:30 | XMS_ITS | Encounter Summary ---
Author Organization [facility] Address [address] [place] [address] Care Team Providers Care Radiology Tech Name Role Phone Unknown, Provider Primary Care Provider Encounter Details Date Type Department Care Team (Late Contact Info) Description 10/30/2018 Historical Results Only [facility] Radiology Results [address] [place] [address] Radha Hendrickson, APRIL [address] [place] [phone] Social History Tobacco Use Types Packs/Day Years Used Date Smoking Tobacco: Never Assessed Sex and Gender Information Value Date Recorded Sex Assigned at Not on file Gender Identity Female 05/18/2021 10:23 EDT Sexual Orientation Not on file documented as of this encounter Plan of Treatment Upcoming Encounters Date Type Department Care Team (Late Contact Info) Description 06/11/2024 12:45 EDT Office Visit [facility] Ophthalmology [facility] [address] [place], [place] [address] Santiago Anthony MD [address] [facility], [facility] [address] [place] [address] 07/15/2024 10:45 EDT Office Visit [facility] [address] [place] [address] Gianfranco Flowers MD [address] [place], [place] [address] [address] [place] [phone] documented as of this encounter Procedures Procedure Name Priority Date/Time Associated Diagnosis Comments MA BREAST DIAGNOSTIC UNILATERAL LEANN 10/30/2018 12:06 EST US BREAST LIMITED UNILATERAL 10/30/2018 12:06 EST documented in this encounter Results * US BREAST LIMITED UNILATERAL (10/30/2018 12:06 EST) Anatomical Region Laterality Modality Breast Other 10/30/2018 12:0 6 EST Narrative 10/30/2018 12:06 EST ? EXAM: ULTRASOUND/UNILAT BREAST CALL BACK ??EX. D/ (1118) ? CLINICAL INFORMATION: ? RIGHT BREAST, CYSTIC VS SOLID ? INDICATION: RIGHT BREAST, CYSTIC VS SOLID RT BREAST FOCAL ASYMMETRY ? SIGNS AND SYMPTOMS/COMMENTS: ??RIGHT BREAST, CYSTIC VS SOLID ? COMPARISONS: 10/15/2017, 10/18/2016, 05/14/2013, 02/10/2010. ? FINDINGS: ? RIGHT BREAST MAMMOGRAPHY: Full field digital whole breast 2D (C-view) ? and 3D ML and spot compression CC and MLO views of the right breast ? were obtained. CAD technology was utilized. ? The breast tissue is of scattered density. There is a persistent 3-mm ? focal asymmetry in the upper right breast, ??approximately 4 cm from ? the nipple. There is no suspicious microcalcification or ? architectural distortion. ? RIGHT BREAST ULTRASOUND: The upper right breast was scanned from the ? 3 clock position to the 9 o'clock position. ? At the 12 o'clock position, 4 cm from the nipple, there is a 3-mm ? cyst. No suspicious sonographic abnormality was detected. ? RIGHT BREAST IMPRESSION: BI-RADS Category 2, benign. A simple cyst in ? the upper right breast accounts for the mammographic abnormality. ? RECOMMENDATION: Recommend annual bilateral screening mammography ? which is next to October 2019. ? FINAL ASSESSMENT: ??DIAGNOSTIC RIGHT BREAST MAMMOGRAM/ULTRASOUND - ? BI-RADS Category 2 - Benign findings. ? Dr Raul Mccurdy discussed the findings and recommendations directly ? with the patient at the time of the examination.. ? These results will be communicated to your patient via a lay letter ? from Radiology. ??If any additional imaging is needed we will contact ? your patient directly. ? REPORT SIGNED IN OTHER VENDOR SYSTEM 10/30/2018 ?Reported By: Raul Mccurdy MD ? CC: ? Transcribed Date/Time: 10/30/2018 (1206) ? Sales Development Director: ? Printed Date/Time: 03/23/2019 (9350) ? PAGE 1 ? Signed Report ? Procedure Note Raul Mccurdy MD - 08/07/2019 EXAM: ULTRASOUND/UNILAT BREAST CALL BACK EX. D/ (1118) CLINICAL INFORMATION: RIGHT BREAST, CYSTIC VS SOLID INDICATION: RIGHT BREAST, CYSTIC VS SOLID RT BREAST FOCAL ASYMMETRY SIGNS AND SYMPTOMS/COMMENTS: RIGHT BREAST, CYSTIC VS SOLID COMPARISONS: 10/15/2017, 10/18/2016, 05/14/2013, 02/10/2010. FINDINGS: RIGHT BREAST MAMMOGRAPHY: Full field digital whole breast 2D(C-view) and 3D ML and spot compression CC and MLO views of the right breast were obtained. CAD technology was utilized. The breast tissue is of scattered density. There is a persistent3-mm focal asymmetry in the upper right breast, approximately 4 cm from the nipple. There is no suspicious microcalcification or architectural distortion. RIGHT BREAST ULTRASOUND: The upper right breast was scanned fromthe 3 clock position to the 9 o'clock position. At the 12 o'clock position, 4 cm from the nipple, there is a 3-mm cyst. No suspicious sonographic abnormality was detected. RIGHT BREAST IMPRESSION: BI-RADS Category 2, benign. A simple cystin the upper right breast accounts for the mammographic abnormality. RECOMMENDATION: Recommend annual bilateral screening mammography which is next to October 2019. FINAL ASSESSMENT: DIAGNOSTIC RIGHT BREAST MAMMOGRAM/ULTRASOUND - BI-RADS Category 2 - Benign findings. Dr Raul Mccurdy discussed the findings and recommendationsdirectly with the patient at the time of the examination.. These results will be communicated to your patient via a lay letter from Radiology. If any additional imaging is needed we willcontact your patient directly. REPORT SIGNED IN OTHER VENDOR SYSTEM 10/30/2018 Reported By: Raul Mccurdy MD CC: Transcribed Date/Time: 10/30/2018 (1206) Sales Development Director: Printed Date/Time: 03/23/2019 (7426) PAGE 1 Signed Report Radha Hendrickson APRN [facility] [place] ORDERABLE S * MA BREAST DIAGNOSTIC UNILATERAL LEANN (10/30/2018 12:06 EST) Anatomical Region Laterality Modality Breast Other 10/30/2018 12:0 6 EST Narrative 10/30/2018 12:06 EST ? EXAM: MAMMOGRAM/MAMMO DX CALL BACK UNI W/ EX. D/ (1102) ? CLINICAL INFORMATION: ? RIGHT BREAST, SUSP FINDINGS ON INITIAL ? INDICATION: RIGHT BREAST, CYSTIC VS SOLID RT BREAST FOCAL ASYMMETRY ? SIGNS AND SYMPTOMS/COMMENTS: ??RIGHT BREAST, CYSTIC VS SOLID ? COMPARISONS: 10/15/2017, 10/18/2016, 05/14/2013, 02/10/2010. ? FINDINGS: ? RIGHT BREAST MAMMOGRAPHY: Full field digital whole breast 2D (C-view) ? and 3D ML and spot compression CC and MLO views of the right breast ? were obtained. CAD technology was utilized. ? The breast tissue is of scattered density. There is a persistent 3-mm ? focal asymmetry in the upper right breast, ??approximately 4 cm from ? the nipple. There is no suspicious microcalcification or ? architectural distortion. ? RIGHT BREAST ULTRASOUND: The upper right breast was scanned from the ? 3 clock position to the 9 o'clock position. ? At the 12 o'clock position, 4 cm from the nipple, there is a 3-mm ? cyst. No suspicious sonographic abnormality was detected. ? RIGHT BREAST IMPRESSION: BI-RADS Category 2, benign. A simple cyst in ? the upper right breast accounts for the mammographic abnormality. ? RECOMMENDATION: Recommend annual bilateral screening mammography ? which is next to October 2019. ? FINAL ASSESSMENT: ??DIAGNOSTIC RIGHT BREAST MAMMOGRAM/ULTRASOUND - ? BI-RADS Category 2 - Benign findings. ? Dr Raul Mccurdy discussed the findings and recommendations directly ? with the patient at the time of the examination.. ? These results will be communicated to your patient via a lay letter ? from Radiology. ??If any additional imaging is needed we will contact ? your patient directly. ? REPORT SIGNED IN OTHER VENDOR SYSTEM 10/30/2018 ?Reported By: Raul Mccurdy MD ? CC: ? Transcribed Date/Time: 10/30/2018 (1206) ? Sales Development Director: SCR ? Printed Date/Time: 03/23/2019 (0950) ? PAGE 1 ? Signed Report ? Procedure Note Raul Mccurdy MD - 08/07/2019 EXAM: MAMMOGRAM/MAMMO DX CALL BACK UNI W/ EX. D/ (1102) CLINICAL INFORMATION: RIGHT BREAST, SUSP FINDINGS ON INITIAL INDICATION: RIGHT BREAST, CYSTIC VS SOLID RT BREAST FOCAL ASYMMETRY SIGNS AND SYMPTOMS/COMMENTS: RIGHT BREAST, CYSTIC VS SOLID COMPARISONS: 10/15/2017, 10/18/2016, 05/14/2013, 02/10/2010. FINDINGS: RIGHT BREAST MAMMOGRAPHY: Full field digital whole breast 2D(C-view) and 3D ML and spot compression CC and MLO views of the right breast were obtained. CAD technology was utilized. The breast tissue is of scattered density. There is a persistent3-mm focal asymmetry in the upper right breast, approximately 4 cm from the nipple. There is no suspicious microcalcification or architectural distortion. RIGHT BREAST ULTRASOUND: The upper right breast was scanned fromthe 3 clock position to the 9 o'clock position. At the 12 o'clock position, 4 cm from the nipple, there is a 3-mm cyst. No suspicious sonographic abnormality was detected. RIGHT BREAST IMPRESSION: BI-RADS Category 2, benign. A simple cystin the upper right breast accounts for the mammographic abnormality. RECOMMENDATION: Recommend annual bilateral screening mammography which is next to October 2019. FINAL ASSESSMENT: DIAGNOSTIC RIGHT BREAST MAMMOGRAM/ULTRASOUND - BI-RADS Category 2 - Benign findings. Dr Raul Mccurdy discussed the findings and recommendationsdirectly with the patient at the time of the examination.. These results will be communicated to your patient via a lay letter from Radiology. If any additional imaging is needed we willcontact your patient directly. REPORT SIGNED IN OTHER VENDOR SYSTEM 10/30/2018 Reported By: Raul Mccurdy MD CC: Transcribed Date/Time: 10/30/2018 (1206) Sales Development Director: Printed Date/Time: 03/23/2019 (8079) PAGE 1 Signed Report Radha Hendrickson HUMAN RESOURCES OPERATIONS MANAGER IMG MAMMOGRAPHY ORDERABLES documented in this encounter Visit Diagnoses Not on filedocumented in this encounter Care Teams Radiology Tech Relationship Specialty Start Date End Date Unknown, Provider, PCP - General 01/14/15 08/26/19 documented as of this encounter
--- OUTSIDE RECORDS SUMMARY | 2024-04-29 18:30 | XMS_ITS | Encounter Summary ---
Author Organization [facility] Address [address] [place] [address] Care Team Providers Care Coil Cutter Name Role Phone Unknown, Provider Primary Care Provider Encounter Details Date Type Department Care Team (Late st Contact Info) Description 01/15/2019 Historical Results Only [facility] Lab - [address] [id number] Radha Hendrickson, DRIFT MINER [address] [place] [phone] Social History Tobacco Use Types Packs/Day Years Used Date Smoking Tobacco: Never Assessed Sex and Gender Information Value Date Recorded Sex Assigned at Not on file Gender Identity Female 05/18/2021 10:23 EDT Sexual Orientation Not on file documented as of this encounter Plan of Treatment Upcoming Encounters Date Type Department Care Team (Late st Contact Info) Description 06/11/2024 12:45 EDT Office Visit [facility] [address] [place] [address] Santiago Anthony MD [address] [facility], [address] [place] [address] 07/15/2024 10:45 EDT Office Visit [facility] Cardiology Clinic [address] [place] [address] Gianfranco Flowers MD [address] [place] [address] [address] [place] [address] documented as of this encounter Procedures Procedure Name Priority Date/Time Associated Diagnosis Comments TSH Routine 01/15/2019 7:59 EDT MAGNESIUM Routine 01/15/2019 7:59 EDT HEMOGLOBIN A1C Routine 01/15/2019 7:59 EDT VITAMIN B12 Routine 01/15/2019 7:59 EDT LIPID PROFILE (INCLUDES CHOLESTEROL, TRIGLYCERIDES, HDL, LDL) Routine 01/15/2019 7:59 EDT COMPREHENSIVE METABOLIC PANEL (CMP) Routine 01/15/2019 7:59 EDT documented in this encounter Results * MAGNESIUM (01/15/2019 7:59 EDT) Magnesium 1.90 1.7 - 2.8 mg/dL 01/15/2019 9:[address] [facility] 01/15/2019 7:59 EDT 01/15/2019 7:[address] [facility] - 01/15/2019 9:13 EDT Does PT Have a Latex Allergy? NO Radha Hendrickson APRN CHEMISTRY & BLOO D GAS ORDERABLES [facility] * (ABNORMAL) LIPID PROFILE (INCLUDES CHOLESTEROL, TRIGLYCERIDES, HDL, LDL) (01/15/2019 7:59 EDT) Triglyceride 311 <150 mg/dL 01/15/2019 9:[address] [facility] Comment: Adult: Normal: ?<150 mg/dl ? Borderline High: 150-199 mg/dl ? High: ?200-499 mg/dl ? Very High: >dg=780 Cholesterol 182 <200 mg/dL 01/15/2019 9:[address] [facility] Comment: Acceptable: ??<200 Borderline: ??200-239 High: ?> or = 240 Chol/HDL Ratio 4.9(H) 0 - 4.5 01/15/2019 9:[address] [facility] Comment: DESIRABLE RATIO IS LESS THAN 4.1 PATIENTS ARE CONSIDERED AT RISK: WOMEN RATIO >5 MEN RATIO >6 FASTING? - [facility] Yes 9 7:59 [facility] HDL 37(L) 40 - 60 mg/dL 01/15/2019 9:13 [facility] Comment: ?? Reference Range Low: ? < 40 ??mg/dL Normal: ??40-60 mg/dL High: ?>= 60 mg/dL LDL CHOLESTEROL - [facility] 83 60 - 100 mg/dL 01/15/2019 9:[address] [facility] Non HDL Cholesterol 145 mg/dl 01/15/2019 9:13 [facility] Comment: Desirable: ?Less than 130 Borderline High: ??130-159 High: ? 160-189 Very High: ?Greater than or equal to 190 01/15/2019 7:59 EDT 01/15/2019 7:[address] [facility] - 01/15/2019 9:13 EDT Does PT Have a Latex Allergy? NO Radha Hendrickson APRN CHEMISTRY & BLOO D GAS ORDERABLES [facility] * (ABNORMAL) COMPREHENSIVE METABOLIC PANEL (CMP) (01/15/2019 7:59 EDT) Albumin % 4.0 3.4 - 4.9 g/dL 01/15/2019 9:[address] [facility] ALKALINE PHOSPHATASE - [facility] 87 38 - 126 U/L 01/15/2019 9:13 [facility] BILIRUBIN TOTAL 0.8 0.2 - 1.3 mg/dL 01/15/2019 9:13 [facility] BUN - [facility] 19 10 - 26 mg/dL 01/15/2019 9:13 [facility] CALCIUM - [facility] 9.8 8.5 - 10.5 mg/dL 01/15/2019 9:13 [facility] Chloride 102 96 - 110 mmol/L 01/15/2019 9:13 [facility] CO2 Total 24 22 - 32 mEq/L 01/15/2019 9:13 [facility] CREATININE 0.75 0.52 - 1.04 mg/dL 01/15/2019 9:13 [facility] eGFR >60 01/15/2019 9:13 [facility] Comment: Chronic renal impairment is defined as GFR <60 Multiply result by 1.210 for patients. eGFR calculated using the IDMS-traceable MDRD Study Equation. ??(effective 08/03/2014) Anion Gap 12 0 - 18 01/15/2019 9:13 [facility] GLUCOSE - [facility] 128(H) 70 - 100 mg/dL 01/15/2019 9:13 [facility] Potassium 3.9 3.5 - 5.0 mEq/L 01/15/2019 9:13 [facility] Sodium 138 136 - 145 mEq/L 01/15/2019 9:13 [facility] TOTAL PROTEIN - [facility] 7.0 6.2 - 8.2 gm/dL 01/15/2019 9:13 [facility] SGOT/AST - [facility] 19 14 - 36 U/L 01/15/2019 9:13 [facility] SGPT/ALT - [facility] 25 9 - 52 U/L 9 9:13 [facility] 01/15/2019 7:59 EDT 01/15/2019 7:59 [facility] - 01/15/2019 9:13 EDT Does PT Have a Latex Allergy? NO Radha Hendrickson APRN CHEMISTRY & BLOO D GAS ORDERABLES Performing Organization Address [facility] Co de Phone Number [facility] * TSH (01/15/2019 7:59 EDT) [facility] THYROID STIM HORMONE - [facility] 1.73 0.46 - 4.68 uIU/ml 01/15/2019 9:[address] [facility] Comment: The results of this assay can be falsely lowered due to the consumption of Biotin. 01/15/2019 7:59 EDT 01/15/2019 7:[address] [facility] - 01/15/2019 9:59 EDT Does PT Have a Latex Allergy? NO Radha Hendrickson APRN CHEMISTRY & BLOO D GAS ORDERABLES Performing Organization Address [facility] de Phone Number [facility] * VITAMIN B12 (01/15/2019 7:59 EDT) [facility] VITAMIN B12 - [facility] 418 239 - 931 pg/mL 01/15/2019 9:[address] [facility] Comment: The results of this assay can be falsely elevated due to the consumption of Biotin. 01/15/2019 7:59 EDT 01/15/2019 7:59 EDT [facility] - 01/15/2019 9:59 EDT Does PT Have a Latex Allergy? NO Radha Hendrickson APRN CHEMISTRY & BLOO D GAS ORDERABLES Performing Organization Address [facility]/ZIP Co de Phone Number [facility] * (ABNORMAL) HEMOGLOBIN A1C (01/15/2019 7:59 EDT) [facility] Hemoglobin A1c 6.2(H) 4.0 - 6.0 % 01/15/2019 11:[address] [facility] Comment: > or =18 years: ??Increased risk for diabetes (prediabetes): 5.7-6.4% Diabetes: > or =6.5% Therapeutic goals for glycemic control (ADA) Adults: - Goal of therapy: <7.0% HbA1c - Action suggested: >8.0% HbA1c Pediatric patients: - Toddlers and preschoolers: <8.5% (but >7.5%) - School age (6-12 years): <8% - Adolescents and young adults (13-19 years): <7.5% Est Avg Glucose 131 mg/dL 9 11:[address] [facility] 01/15/2019 7:59 EDT 01/15/2019 7:[address] [facility] - 01/15/2019 11:56 EDT Does PT Have a Latex Allergy? NO Radha Hendrickson DRIFT MINER CHEMISTRY & BLOO D GAS ORDERABLES [facility] documented in this encounter Visit Diagnoses Not on filedocumented in this encounter Care Teams Coil Cutter Relationship Specialty Start Date End Date Unknown, Provider, PCP - General 01/14/15 08/26/19 documented as of this encounter
--- OUTSIDE RECORDS SUMMARY | 2024-04-29 18:30 | XMS_ITS | Encounter Summary ---
Author Organization [facility] Address [address] [place] [address] Care Team Providers Care Epidemiology Investigator Name Role Phone Nivia Tinsley MD Primary Care Provider Reagan Pickett MD Unavailable [phone] Zheng Tapia MD Unavailable Shazia Burks MD Unavailable [phone] Tony Baron OD Unavailable [phone] Encounter Details Date Type Department Care Team (Late st Contact Info) Description 09/17/2019 Abstract [facility] Adult Primary Care - [address] [address] Ambulatory, Finish Production Manager Social History Tobacco Use Types Packs/Day Years [...] 06/11/2024 12:45 EDT Office Visit [facility] Ophthalmology [address] [address] Santiago Anthony MD [address] [place] [address], [facility] [address] [place] [address] 07/15/2024 10:45 EDT Office Visit [facility] Cardiology Clinic [address] [place], [place] [id number] Gianfranco Flowers MD [address] [facility] [address] [place] [address] documented as of this encounter Visit Diagnoses Not on filedocumented in this encounter Historical Medications * This list may reflect changes made after this encounter. Medication Sig Dispensed Refills Start Date End Date UNABLE TO FIND Magic Mouthwash Maalox (40mL), viscous lidocaine (40mL), Benadryl (40mL) liquid, Sig: as directed swish, gargle, and spit four times per day as needed 04/19/20 20 polyethylene glycol 3350 (MIRALAX ORAL) Take 17 g by mouth daily as needed. constipation 03/29/2020 aspirin 81 mg EC tablet Take 81 mg by mouth daily. 02/27/2020 nitroGLYCERIN (NITROSTAT) 0.[address] 0.4 mg under the tongue every 5 minutes as needed. for persistent Chest pain 02/27/2020 ammonium lactate (LAC-HYDRIN) 12 % lotion Apply 1 application topically 2 times daily as needed. 03/05/2020 fluticasone propionate (FLONASE) 50 mcg/actuation nasal spray 1 [place] as needed. intranasally 02/27/2020 UNABLE TO FIND Ocuvite Antioxidant Multiple Vitamins and Minerals tablet, Si tab(s) orally once a day 02/27/2020 calcium carbonate (TUMS) 200 mg calcium (500 mg) tablet,chewable Take 0.5-1 Tabs by mouth as needed. for stomach upset 03/05/2020 added in this encounter Care Teams Epidemiology Investigator Relationship Specialty Start Date End Date Nivia Tinsley MD [address] [place] [address] PCP - General Family Medicine - Primary Care 08/27/19 Reagan Pickett MD [address] [place] [address] Cardiovascular Disease 09/01/19 0 Zheng Tapia MD [address] [place] [address] [address] [place] [address] Internal Medicine - Primary Care 09/01/19 Shazia Burks MD [address] [place], [place] [address] Neurology 09/01/19 Tony Baron, OD [address] [place] [address] Hot Mill Observer 09/01/19 documented as of this encounter
--- OUTSIDE RECORDS SUMMARY | 2024-04-29 18:30 | XMS_ITS | Encounter Summary ---
Author Organization [facility] Address [address] [place] [address] Care Team Providers Care Director Of Recreation Therapy Name Role Phone Unknown, Provider Primary Care Provider Encounter Details Date Type Department Care Team (Late st Contact Info) Description 07/11/2019 Results Only [facility] - [address] [id number] Nivia Tinsley MD [address] [place] [phone] Social History Tobacco Use Types Packs/Day Years [...] Visit [facility] Ophthalmology [facility] [address] [place] [address] Santiago Anthony MD 111 [facility] 5 [place] [address] 07/15/2024 10:45 EDT Office Visit [facility] [address] [place], [place] [address] Gianfranco Flowers MD [address] [place], [place] [address]A [address] [place] [address] documented as of this encounter Procedures Procedure Name Priority Date/Time Associated Diagnosis Comments COMPLETE BLOOD COUNT WITH DIFFERENTIAL (AUTO) Routine 07/11/2019 13:59 EDT TSH Routine 07/11/2019 13:59 EDT VITAMIN B12 Routine 07/11/2019 13:59 EDT documented in this encounter Results * TSH (07/11/2019 13:59 EDT) [facility] THYROID STIM HORMONE [facility] 3.01 0.46 - 4.68 uIU/ml 07/11/2019 19:38 EDT [facility] Comment: The results of this assay can be falsely lowered due to the consumption of Biotin. 07/11/2019 13:5 9 EDT 07/11/2019 18:16 EDT Nivia Tinsley MD CHEMISTRY & BLOOD G ORDERABLES Performing Organization Address City/[facility]/ZIP Co de Phone Number [facility] * VITAMIN B12 (07/11/2019 13:59 EDT) [facility] VITAMIN B12 [facility] [phone] - 931 pg/mL 07/11/2019 19:38 EDT [facility] Comment: The results of this assay can be falsely elevated due to the consumption of Biotin. 07/11/2019 13:5 9 EDT 07/11/2019 18:16 EDT Nivia Tinsley MD CHEMISTRY & BLOOD G ORDERABLES [facility] * (ABNORMAL) COMPLETE BLOOD COUNT WITH DIFFERENTIAL (AUTO) (07/11/2019 13:59 EDT) [facility] ABSOLUTE NEUTROPHIL COUN - [facility] 4.5 2.2 - 8.85 10e3/uL 07/11/2019 18:41 [facility] BASO # - [facility] 0.04 0.01 - 0.11 10e/uL 07/11/2019 18:41 [facility] BASO % - [facility] 1 0 - 2 % 07/11/2019 18:41 [facility] EOS # - [facility] 0.42 0.03 - 0.61 10e3/ul 07/11/2019 18:41 [facility] EOS % - [facility] 6(H) 0 - 5 % 07/11/2019 18:41 [facility] GRAN % - [facility] 63.2 40 - 80 % 07/11/2019 18:41 [facility] HEMATOCRIT - [facility] 39.7 34.9 - 44.4 % 07/11/2019 18:41 [facility] HEMOGLOBIN - [facility] 13.4 11.6 - 15.2 g/dl 07/11/2019 18:41 [facility] IG# - [facility] 0.04 0 - 0.7 10e3/uL 07/11/2019 18:41 [facility] IG% - [facility] 0.6 0 - 0.9 % 07/11/2019 18:41 [facility] LYMPH # - [facility] 1.5 1.09 - 3.3 10e3/ul 07/11/2019 18:41 [facility] LYMPH% - [facility] 21.6 20 - 40 % 07/11/2019 18:41 [facility] MEAN CORPUSCULAR HGB - [facility] 32.2 26.7 - 33.3 pg 07/11/2019 18:41 [facility] MEAN CORPUSCULAR HGB CONC - [facility] 33.8 32.1 - 35.9 g/dL 07/11/2019 18:41 [facility] MEAN CELL VOLUME - [facility] 95.4 81 - 98 fl 07/11/2019 18:41 [facility] MONO # - [facility] 0.6 0.1 - 0.8 10e3/uL 07/11/2019 18:41 EDT [facility] MONO% - [facility] 8.1 0 - 12 % 07/11/2019 18:41 EDT [facility] PLATELET COUNT 243 141 - 377 10e3/ul 07/11/2019 18:41 EDT [facility] RED BLOOD COUNT - [facility] 4.16 3.86 - 5.04 10e3/ul 07/11/2019 18:41 EDT [facility] RED CELL DISTRI WIDTH - [facility] 12.9 <14.7 % 07/11/2019 18:41 EDT [facility] WHITE BLOOD COUNT - [facility] 7.1 4.0 - 12.4 10e3/ul 07/11/2019 18:41 EDT [facility] 07/11/2019 13:5 9 EDT 07/11/2019 18:16 EDT Nivia Tinsley MD HEMATOLOGY & PF4 OR DERABLES [facility] documented in this encounter Visit Diagnoses Not on filedocumented in this encounter Care Teams Director Of Recreation Therapy Relationship Specialty Start Date End Date Unknown, Provider, PCP - General 01/14/15 08/26/19 documented as of this encounter
--- OUTSIDE RECORDS SUMMARY | 2024-04-29 18:30 | XMS_ITS | Encounter Summary ---
Author Organization [facility] Address [address] [place] [address] Care Team Providers Care Firestopper Installer Name Role Phone Nivia Tinsley MD Primary Care Provider Reagan Pickett MD Unavailable [phone] Zheng Tapia MD Unavailable Shazia Burks MD Unavailable [phone] Tony Baron OD Unavailable [phone] Reason for Visit * Reason Onset Date Comments Results 10/15/2019 Encounter Details Date Type Department Care Team (Late st Contact Info) Description 10/15/[address] [facility] - [facility] Integrative Family Medicine [address] [address] Nivia Tinsley MD [address] [place], [place] [phone] Results Social History Tobacco Use Types Packs/Day [...] Telephone Encounter - Felicia Boyle LPN - 10/15/2019 1507 EST Pt notified of below. States she needs to think about seeing Ortho. Will call back for referral if she decides to go * Telephone Encounter - Felicia Boyle LPN - 10/15/2019 1506 EST ----- Message from Nivia Tinsley MD sent at 10/15/2019 12:34 EST ----- Results are abnormal. Ok to notify pt that her X-ray showed Osteoarthritis, most advanced the medial compartment where there is mild/moderate joint space narrowing with associated marginal osteophytes. Would she like a referralto ortho?? If so, ok to refer. documented in this encounter Plan of Treatment Upcoming Encounters Date Type Department Care Team (Late st Contact Info) Description 06/11/2024 12:45 EDT Office Visit [facility] Ophthalmology - [place] [address] [place] [address] Santiago Anthony MD 111 [facility] 5 [place] [address] 07/15/2024 10:45 EDT Office Visit [facility] Cardiology Clinic [address] [place], [place] [phone] Gianfranco Flowers MD 130 [facility] [address] [place] [phone] documented as of this encounter Visit Diagnoses Not on filedocumented in this encounter Care Teams Firestopper Installer Relationship Specialty Start Date End Date Nivia Tinsley MD [address] [place], [place] [phone] PCP - General Family Medicine - Primary Care 08/27/19 Reagan Pickett MD [address] [place] [address] Cardiovascular Disease 09/01/19 0 Zheng Tapia MD [address] [place] [address] [address] [place] [address] Internal Medicine - Primary Care 09/01/19 Shazia Burks MD [address] [place], [place] [address] Neurology 09/01/19 Tony Baron, [address] [place] [address] Dolly Pusher 09/01/19 documented as of this encounter
--- OUTSIDE RECORDS SUMMARY | 2024-04-29 18:30 | XMS_ITS | Encounter Summary ---
Author Organization [facility] Address [address] [place] [address] Care Team Providers Care Supervisor [employer] Name Role Phone Nivia Tinsley MD Primary Care Provider [phone] Reagan Pickett MD Unavailable Zheng Tapia MD Unavailable Shazia Burks MD Unavailable [phone] Tony Baron OD Unavailable [phone] Reason for Visit * Reason Onset Date Comments Medications Refill 09/18/2019 Encounter Details Date Type Department Care Team (Late st Contact Info) Description 09/18/2019 Refill [facility] Integrative Family Medicine [address] [address] Sherly Kimbrough, ANA Medications Refill [...] orally once a day 90 Tab 3 09/18/2019 02/27/2020 atorvastatin (LIPITOR) 20 mg tabletIndications:Mixed hyperlipidemia 1 tab(s) orally once a day 90 Tab 3 09/18/2019 02/27/2020 atenolol (TENORMIN) 50 mg tabletIndications:Essential hypertension 1 tab(s) orally once a day 90 Tab 3 09/18/2019 02/27/2020 documented in this encounter Miscellaneous Notes * Telephone Encounter - Sherly Kimbrough, ANA - 09/18/2019 1125 EST Refill atorvastatin, losartan, atenolol to [facility] - 07/11/19 NOV - 09/30/19 labs - 01/15/19 Rxs escribed to pharmacy. SHERLY KIMBROUGH RN documented in this encounter Plan of Treatment Upcoming Encounters Date Type Department Care Team (Late st Contact Info) Description 06/11/2024 12:45 EDT Office Visit [facility] Ophthalmology - [place] [address] [place], [place] [address] Santiago Anthony MD [address] [place] [address], [facility] [address] [place] [address] 07/15/2024 10:45 EDT Office Visit [facility] Cardiology Clinic [address] [place], [place] [phone] Gianfranco Flowers MD 130 [facility] [address] [place] [address] documented as of this encounter Visit Diagnoses Diagnosis Essential hypertension- Primary Unspecified essential hypertension Mixed hyperlipidemia documented in this encounter Discontinued Medications Medication Sig Discontinue Reason Start Date End Da te atenolol (TENORMIN) 50 mg tablet 1 tab(s) orally once a day Reorder 09/18/2019 atorvastatin (LIPITOR) 20 mg tablet 1 tab(s) orally once a day Reorder 09/18/2019 losartan (COZAAR) 100 mg tablet 1 tab(s) orally once a day Reorder 03/15/2017 09/18/2019 documented as of this encounter Care Teams Supervisor [employer] Relationship Specialty Start Date End Date Nivia Tinsley MD [address] [place] [address] PCP - General Family Medicine - Primary Care 08/27/19 Reagan Pickett MD [address] [place], [place] [phone] Cardiovascular Disease 09/01/19 0 Zheng Tapia MD [address] [place] [address] [address] [place] [address] Internal Medicine - Primary Care 09/01/19 Shazia Burks MD [address] [place] [address] Neurology 09/01/19 Tony Baron OD [address] [place] [phone] Manager Clinic 09/01/19 documented as of this encounter
--- OUTSIDE RECORDS SUMMARY | 2024-04-29 18:30 | XMS_ITS | Encounter Summary ---
Author Organization [facility] Address [address] [place] [address] Care Team Providers Care Frame Hand Name Role Phone Nivia Tinsley MD Primary Care Provider [phone] Reagan Pickett MD Unavailable [phone] Zheng Tapia MD Unavailable Shazia Burks MD Unavailable [phone] Tony Baron OD Unavailable [phone] Reason for Visit * Reason Comments Social Work Advance Directive * Consult (Routine) - Specialty Report Received Specialty Diagnoses / Procedures Referred By Lesa alves Referred To Contact Family Medicine Diagnoses Medicare annual wellness visit, subsequent Advance directive discussed with patient Nivia Tinsley MD [address] [place] [address] Cht Material Assistant, [facility] Referral ID Status Reason Start Date Expiration Date Visits Requested Visits Authorized [id number] Specialty Report Received Specialty Services Required 9 1 1 Encounter Details Date Type Department Care Team (Late st Contact Info) Description 09/30/2019 14:00 EST Community Health Team [facility] Integrative Family Medicine [facility] [address] [place], [place] [phone] Christo Material Assistant, [facility] Social History Tobacco Use Types Packs/Day Years [...] as of this encounter Progress Notes * Terri Byrd - 09/30/2019 1400 EST Patient came in today to work on an Advance Directive. I helped her complete most of the short form. There were a couple of questions Concetta would like to discuss with Dr. Tinsley before deciding on her wishes. I sent her home with a list of information we still need to complete the form. We will talk by phone to finish the document. * Nivia Tinsley MD - 09/30/2019 1400 EST Thanks. I talked to her today, and I answered her questions (see my OV note). Hopefully she is all set to complete the form now. documented in this encounter Plan of Treatment Upcoming Encounters Date Type Department Care Team (Late st Contact Info) Description 06/11/2024 12:45 EDT Office Visit [facility] Ophthalmology - [place] [address] [place], [place] [address] Santiago Anthony MD [address] [place] [address] [address] [place] [address] 07/15/2024 10:45 EDT Office Visit [facility] Cardiology Clinic [address] [place] [address] Gianfranco Flowers MD 130 [facility] [address] [place] [phone] documented as of this encounter Visit Diagnoses Not on filedocumented in this encounter Care Teams Frame Hand Relationship Specialty Start Date End Date Nivia Tinsley MD [address] [place] [address] PCP - General Family Medicine - Primary Care 08/27/19 Reagan Pickett MD [address] [place] [address] Cardiovascular Disease 09/01/19 0 Zheng Tapia MD [address] [place] [address] [address] [place] [phone] Internal Medicine - Primary Care 09/01/19 Shazia Burks MD [address] [place] [address] Neurology 09/01/19 Tony Baron OD [address] [place] [phone] Service Dispatcher 09/01/19 documented as of this encounter
--- OUTSIDE RECORDS SUMMARY | 2024-04-29 18:30 | XMS_ITS | Encounter Summary ---
Author Organization [facility] Address [address] [place] [address] Care Team Providers Care Bar Waiter/Waitress Name Role Phone Nivia Tinsley MD Primary Care Provider [phone] Reagan Pickett MD Unavailable [phone] Zheng Tapia MD Unavailable Shazia Burks MD Unavailable [phone] Tony Baron OD Unavailable [phone] Reason for Visit * Reason Comments Follow-up Encounter Details Date Type Department Care Team (Late st Contact Info) Description 09/30/2019 15:[address] [facility] - [facility] Integrative Family Medicine [address] [address] Nivia Tinsley MD [address] [place] [address] Balance problem (Primary Dx); Acute pain of right knee; Advanced directives, counseling/discussio n Social History Tobacco Use Types Packs/Day Years [...] Sign Reading Time Taken Comments Blood Pressure 140/90 09/30/2019 1554 EST Pulse 68 09/30/2019 1505 EST Temperature - - Respiratory Rate 16 09/30/2019 1505 EST Oxygen Saturation - - Inhaled Oxygen Concentration - - Weight 70.7 kg (155 lb 12.8 oz) 09/30/2019 1505 EST Height 163.2 cm (5' 4.25) 09/30/2019 1505 EST Body Mass Index 26.54 09/30/2019 1505 EST documented in this encounter [...] No 09/09/2019 documented as of this encounter Patient Instructions * Patient Instructions* Nivia Tinsley MD - 09/30/2019 15:00 EST Images from the original note were not included. [facility] Patient Instructions Knee: Exercises Introduction Here are some examples of exercises for you to try. The exercises may be suggested for a condition or for rehabilitation. Start each exercise slowly. Ease off the exercises if you start to have pain. You will be told when to start these exercises and which ones will work best for you. How to do the exercises Quad sets 1. Sit with your leg straight and supported on the floor or a firm bed. (If you feel discomfort in the front or back of your knee, place a small towel roll under your knee.) 2. Tighten the muscles on top of your thigh by pressing the back of your knee flat down to the floor. (If you feel discomfort under your kneecap, place a small towel roll under your knee.) 3. Hold for about 6 seconds, then rest for up to 10 seconds. 4. Do 8 to 12 repetitions several times a day. Straight-leg raises to the front 1. Lie on your back with your good knee bent so that your foot rests flat on the floor. Your injured leg should be straight. Make sure that your low back has a normal curve. You should be able to slip your flat hand in between the floor and the small of your back, with your palm touching the floor and your back touching the back of your hand. 2. Tighten the thigh muscles in the injured leg by pressing the back of your knee flat down to the floor. Hold your knee straight. 3. Keeping the thigh muscles tight, lift your injured leg up so that your heel is about 12 inches off the floor. Hold for about 6 seconds and then lower slowly. 4. Do 8 to 12 repetitions, 3 times a day. Straight-leg raises to the outside 1. Lie on your side, with your injured leg on top. 2. Tighten the front thigh muscles of your injured leg to keep your knee straight. 3. Keep your hip and your leg straight in line with the rest of your body, and keep your knee pointing forward. Do not drop your hip back. 4. Lift your injured leg straight up toward the ceiling, about 12 inches off the floor. Hold for about 6 seconds, then slowly lower your leg. 5. Do 8 to 12 repetitions. Straight-leg raises to the back 1. Lie on your stomach, and lift your leg straight up behind you (toward the ceiling). 2. Lift your toes about 6 inches off the floor, hold for about 6 seconds, then lower slowly. 3. Do 8 to 12 repetitions. Straight-leg raises to the inside 1. Lie on the side of your body with the injured leg. 2. You can either prop your other (good) leg up on a chair, or you can bend your good knee and put that foot in front of your injured knee. Do not drop your hip back. 3. Tighten the muscles on the front of your thigh to straighten your injured knee. 4. Keep your kneecap pointing forward, and lift your whole leg up toward the ceiling about 6 inches. Hold for about 6 seconds, then lower slowly. 5. Do 8 to 12 repetitions. Heel dig bridging 1. Lie on your back with both knees bent and your ankles bent so that only your heels are digging into the floor. Your knees should be bent about 90 degrees. 2. Then push your heels into the floor, squeeze your buttocks, and lift your hips off the floor until your shoulders, hips, and knees are all in a straight line. 3. Hold for about 6 seconds as you continue to breathe normally, and then slowly lower your hips back down to the floor and rest for up to 10 seconds. 4. Do 8 to 12 repetitions. Hamstring curls 1. Lie on your stomach with your knees straight. If your kneecap is uncomfortable, roll up a washcloth and put it under your leg just above your kneecap. 2. Lift the foot of your injured leg by bending the knee so that you bring the foot up toward your buttock. If this motion hurts, try it without bending your knee quite as far. This may help you avoid any painful motion. 3. Slowly lower your leg back to the floor. 4. Do 8 to 12 repetitions. 5. With permission from your doctor or physical therapist, you may also want to add a cuff weight to your ankle (not more than 5 pounds). With weight, you do not have to lift your leg more than 12 inches to get a hamstring workout. Shallow standing knee bends 1. Stand with your hands lightly resting on a counter or chair in front of you. Put your feet shoulder-width apart. 2. Slowly bend your knees so that you squat down like you are going to sit in a chair. Make sure your knees do not go in front of your toes. 3. Lower yourself about 6 inches. Your heels should remain on the floor at all times. 4. Rise slowly to a standing position. Heel raises 1. Stand with your feet a few inches apart, with your hands lightly resting on a counter or chair in front of you. 2. Slowly raise your heels off the floor while keeping your knees straight. 3. Hold for about 6 seconds, then slowly lower your heels to the floor. 4. Do 8 to 12 repetitions several times during the day. Follow-up care is a jiménez part of your treatment and safety. Be sure to make and go to all appointments, and call your doctor if you are having problems. It's also a good idea to know your test resultsand keep a list of the medicines you take. Where can you learn more? Go to https://www.[employer] or log into your [employer] account at https://[employer] Enter Q615 in the search box to learn more about Knee: Exercises. Current as of: March 26, 2019 Content Version: 12.2 ?? 1254-2160 [employer]. Care instructions adapted under license by [facility]. If you have questions about a medical condition or this instruction, always askyour healthcare professional. [employer] disclaims any warranty or liability for youruse of this information. documented in this encounter Progress Notes * Nivia Tinsley MD - 09/30/2019 1500 EST [facility] Primary Care Subjective: Chief Complaint(s): Follow-up HPI: 1. Right Knee pain: It has been going on for the past 3 weeks. It feels like it is going to give out on her. No locking, No swelling. No injuries. No new activities. Nothing seems to make the pain better. If she over does it, the pain will get worse. Warm heat helps a bit. It is a pain in the back of her knee and occasionally radiates down her leg. She describes it as an aching pain. No N/T. 2. Advanced Directives She met with [place], and discussed her Advanced Directives. She met with the [facility] social welfare administrator, and she discussed her preferences. She has some questions about the breathing tube. She not sure how to answer that question. 3. Balance Issues: She has had balance issues for a very long time. It seems to be getting worse. She was thinking that it would go away, but it has not. It occurs when she is walking and when she goes to stand up. Shehas not had any falls. She has been good about catching herself. She has safety equipment at home, and she uses the wall to walk. She did physical therapy, and the thearpist thought she was gettingbetter. She does an exercise class 2X/week. 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 In December 2014 she had recurrent spells of altered sensation in her L forearm associated with involuntary curling of fingers of her L hand. 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 EEG March 2015: bitemporal slowing, non epileptiform I have reviewed patient's tobacco history: reports that she has never smoked. She has never used smokeless tobacco. I have reviewed current problem list and current medications. ROS: Review of Systems Musculoskeletal: Positive for joint pain (right knee). Neurological: Positive for dizziness and focal weakness. Negative for tingling, sensory change and loss of consciousness. Balance issues Objective: Examination: Vitals: BP 140/90 Pulse 68 Resp 16 Ht 163.2 cm (64.25) Wt 70.7 kg (155 lb 12.8 oz) BMI 26.54 kg/m?? Body mass index is 26.54 kg/m??. Physical Exam Constitutional: She appears well-developed and well-nourished. HENT: Head: Normocephalic and atraumatic. Eyes: Conjunctivae are normal. Neck: Neck supple. Musculoskeletal: Right knee: She exhibits normal range of motion, no swelling, no effusion, no ecchymosis, no deformity, no LCL laxity, normal patellar mobility, no bony tenderness, normal meniscus and no MCL laxity.Tenderness (distal quad tendon) found. No medial joint line, no lateral joint line, no MCL and no LCL tenderness noted. Skin: Skin is dry. Psychiatric: She has a normal mood and affect. Data reviewed with patient (past results): Results for orders placed or performed in visit on 09/30/19 POCT HEMOGLOBIN Result Value Ref Range Hemoglobin, POC 13.6 11.6 - 15.2 g/dL Assessment & Plan: Concetta was seen today for follow-up. Diagnoses and all orders for this visit: Balance problem Comments: Reviewed Dr. Burks's note and her previous imaging. Offered her a referral to a new neurologist, but she wants to think about it. She is not interested in PT. Orders: - POCT HEMOGLOBIN Acute pain of right knee Comments: Offered PT, but she declined. She will try heat in the AM and ice a night, and contine her ASA thatshe is already taking. Home PT activities given. Orders: - XR KNEE RIGHT 1-2 VIEWS; Future Advanced directives, counseling/discussion Comments: Discussed that she might want to consider doing a trial of a breathing tube, if that feels better for her. She will consider it and complet her paperwork. Return if symptoms worsen or fail to improve. By time stamping my name below, I attest that this documentation has been prepared under the direction and in the presence of the provider listed as the provider on this encounter. Mohsen Joyner 09/30/2019 By time stamping my name below, I, as the provider for this encounter, personally performed the services described in this documentation. All medical record entries made by the scribe were at my direction and in my presence. I have reviewed the chart and any discharge instructions and agree that the record reflects my personal performance and is accurate and complete. Nivia Tinsley MD 09/30/2019 Nivia Tinsley MD, FAAFP documented in this encounter Plan of Treatment Upcoming Encounters Date Type Department Care Team (Late st Contact Info) Description 06/11/2024 12:45 EDT Office Visit [facility] Ophthalmology [address] [address] Santiago Anthony MD [address] [place] [address], [facility] [address] [place] [address] 07/15/2024 10:45 EDT Office Visit [facility] Card[facility] Clinic [address] [place], [place] [address] Gianfranco Flowers MD [address] [facility] [address] [place] [address] documented as of this encounter Procedures Procedure Name Priority Date/Time Associated Diagnosis Comments POCT HEMOGLOBIN Routine 09/30/2019 Balance problem documented in this encounter Results * POCT HEMOGLOBIN (09/30/2019) Hemoglobin, POC 13.6 11.6 - 15.2 g/dL POINT OF CARE [facility] Blood CAPILLARY BLOOD / Unknown 09/30/2019 Nivia Tinsley MD POINT OF CARE TEST ORDERABLES POINT OF CARE [facility] documented in this encounter Visit Diagnoses Diagnosis Balance problem- Primary Other symptoms involving nervous and musculoskeletal systems Acute pain of right knee Advanced directives, counseling/discussion Other specified counseling documented in this encounter Care Teams Bar Waiter/Waitress Relationship Specialty Start Date End Date Nivia Tinsley MD [address] [place] [address] PCP - General Family Medicine - Primary Care 08/27/19 Reagan Pickett MD [address] [place] [address] Cardiovascular Disease 09/01/19 0 Zheng Tapia MD [address] [place] [address] [address] [place] [address] Internal Medicine - Primary Care 09/01/19 Shazia Burks MD [address] [place], [place] [address] Neurology 09/01/19 Tony Baron OD [address] [place] [phone] Poll Clerk 09/01/19 documented as of this encounter
--- OUTSIDE RECORDS SUMMARY | 2024-04-29 18:30 | XMS_ITS | Encounter Summary ---
Author Organization [facility] Address [address] [place] [address] Care Team Providers Care Knife Finisher Name Role Phone Unknown, Provider Primary Care Provider Nivia Tinsley MD Primary Care Provider Reagan Pickett MD Unavailable [phone] Zheng Tapia MD Unavailable Shazia Burks MD Unavailable [phone] Tony Baron OD Unavailable [phone] Encounter Details Date Type Department Care Team (Late st Contact Info) Description 06/08/2019 Historical Results [facility] Lab - Main [place] [address] [place] [address] Haile Salinas MD Social History Tobacco Use Types Packs/Day Years Used Date Smoking Tobacco: Never Assessed AUDIT-C Answer Date Recorded Frequency of Alcohol [...] 09/09/2019 Lack of Transportation (Non-Medical) No 09/09/2019 Sex and Gender Information Value Date Recorded Sex Assigned at Not on file Gender Identity Female 05/18/2021 10:23 EDT Sexual Orientation Not on file documented as of this encounter Plan of Treatment Upcoming Encounters Date Type Department Care Team (Late st Contact Info) Description 06/11/2024 12:45 EDT Office Visit [facility] Ophthalmology - [place] [address] [place], [place] [id number] Santiago Anthony MD [address] [place] [address] [address] [place] [address] 07/15/2024 10:45 EDT Office Visit [facility] [address] [place], [place] [phone] Gianfranco Flowers MD [address] [facility] [address] [place] [address] documented as of this encounter Procedures Procedure Name Priority Date/Time Associated Diagnosis Comments BACTERIAL CULTURE, URINE Routine 06/08/2019 10:29 EDT documented in this encounter Results * BACTERIAL CULTURE, URINE (06/08/2019 10:29 EDT) [facility] UUV 06/09/2019 11:05 EDT [facility] CitrateConcentration 10,000-1 00,000 CFU/ML 06/09/2019 11:05 EDT [facility] 06/08/2019 10:2 9 EDT 06/08/2019 10:42 EDT Comment:VOID Haile Salinas MD MICROBIOLOGY - GENER AL ORDERABLES [facility] documented in this encounter Visit Diagnoses Not on filedocumented in this encounter Care Teams Knife Finisher Relationship Specialty Start Date End Date Unknown, Provider, PCP - General 01/14/15 08/26/19 Nivia Tinsley MD [address] [place] [address] PCP - General Family Medicine - Primary Care 08/27/19 Reagan Pickett MD [address] [place] [address] Cardiovascular Disease 09/01/19 0 Zheng Tapia MD [address] [place] [phone] Internal Medicine - Primary Care 09/01/19 Shazia Burks MD [address] [place] [address] Neurology 09/01/19 Tony Baron OD [address] [place] [phone] Regulatory Affairs Intern 09/01/19 documented as of this encounter
--- OUTSIDE RECORDS SUMMARY | 2024-04-29 18:30 | XMS_ITS | Encounter Summary ---
Author Organization [facility] Address [address] [place] [address] Care Team Providers Care Instructional Materials Director Name Role Phone Nivia Tinsley MD Primary Care Provider [phone] Reagan Pickett MD Unavailable [phone] Zheng Tapia MD Unavailable Shazia Burks MD Unavailable [phone] Tony Baron OD Unavailable [phone] Reason for Referral * Consult (Routine) - Specialty Report Received Specialty Diagnoses / Procedures Referred By Lesa alves Referred To Contact Family Medicine Diagnoses Medicare annual wellness visit, subsequent Advance directive discussed with patient Nivia Tinsley MD [address] [place] [address] Cht Television Script Writer, [facility] Referral ID Status Reason Start Date Expiration Date Visits Requested Visits Authorized [id number] Specialty Report Received Specialty Services Required 9 1 1 Question Answer What areas would you like the CHT to focus on? Signing Teacher (If [facility] primary care patient, please refer to [id number] for Social Work support instead) What goals would you like the patient to meet? Advance Directive - patient would like to do but she is blind and needs assistance in filling out form Patient's Weight (kg) (1 lb = 0.4536 kg): 69.3 Patient's Height (cm) (1 in = 2.54 cm): 163.2 Comments As we discussed in your visit today, someone will be contacting you from the Community Health Team to schedule an appointment with you. If you do not hear from the CHT within a week please call the Community Health Team at [phone]. Reason for Visit * Reason Comments Medicare Annual Wellness Visit Encounter Details Date Type Department Care Team (Late st Contact Info) Description 09/09/2019 10:00 EST Office Visit [facility] [place] [address] Nurse, [facility] Medicare annual [facility] visit, subsequent (Primary Dx); Mixed hyperlipidemia; Essential hypertension; Coronary artery disease involving [place] coronary artery of [place] heart without angina pectoris; Acquired hypothyroidism; Prediabetes; Vitamin D deficiency; Gastro-esophageal reflux disease without esophagitis; Shuffling gait; Screening mammogram, encounter for; Advance directive discussed with patient Social History Tobacco Use Types Packs/Day [...] Sign Reading Time Taken Comments Blood Pressure 143/69 09/09/2019 1003 EST Pulse 57 09/09/2019 1003 EST Temperature 36.6 ??C (97.9 ??F) 09/09/2019 0958 EST Respiratory Rate 18 09/09/2019 0958 EST Oxygen Saturation - - Inhaled Oxygen Concentration - - Weight 69.3 kg (152 lb 12.8 oz) 09/09/2019 0958 EST Height 163.2 cm (5' 4.25) 09/09/2019 0958 EST Body Mass Index 26.02 09/09/2019 0958 EST documented in this encounter Functional Status [...] this encounter Patient Instructions * Patient Instructions* Gladys Claudio, RN - 09/09/2019 10:00 EST I have referred you to Mammogram Labs cholesterol screening, metabolic panel and thyroid Eye appointment Dr. Santiago Vazquez seen recently Dental exam - Anali Blakely seen recently Advance Directive - CHT Television Script Writer will assist you in completing Health Maintenance Recommendations: Health Maintenance Topic Date Due ??? FALL RISK SCREENING 2003 - Eye pressure checks for glaucoma with your eye doctor every 1-2 years after age 40. This is particularly important for those with a family history of glaucoma. - Avoid smoking or other tobacco products such as chewing tobacco and snuff. - Alcohol to be used only in moderation, preferably not on a daily basis. - Wearing seat belts. This has been shown in many studies to prevent injuries and fatalities in auto accidents. This is not a minor issue, as trauma is the leading cause of and disability in people under the age of 40. - Wearing helmets. Helmet use when riding a bike, skiing , snowmobiling, etc. is critical to preventing head injury. - Healthy eating. This means eating a diet that is low in fat and junk food, high in fiber, fruits and vegetables. Women should pay special attention to calcium and vitamin D to prevent osteoporosis. - Regular exercise. As little as thirty minutes of aerobic exercise three times per week helps prevent heart disease, hypertension, osteoporosis as well as improving endurance and energy level. Dailyaerobic exercise is best! - Safe sex. Sexually transmitted diseases, hepatitis and HIV infection are all, to a large extent preventable. - Regular dental visits, usually twice/year. - Minimize suntanning and use sun block when in the sun. Avoid tanning beds. Sun exposure is directly linked not only to skin cancer but also to premature wrinkling of the skin. documented in this encounter Progress Notes * Gladys Claudio RN - 09/09/2019 1000 EST [facility] Primary Care Medicare Annual Wellness Nurse Visit Patient is here for their annual wellness visit, for Medicare beneficiaries as part of Medicare Part B, and intended to promote health, detect disease, and address overall health needs related to theMedicare patient. The patient is a 79 y.o. female retiree. The patient is single and lives with other, alone. Patient questionnaire completed and reviewed: Yes. SEE SCANNED DOCUMENTS Advance Directives: has NO advanced directive - add't info provided. Referral to SW: yes. Updated list of treating providers: as listed below Written Health Plan in patient instructions: Yes. Additional History: none. The patient's allergies, past medical history, family history and social history were reviewed and updated in the EMR on 09/09/2019. Chart reviewed for current providers and suppliers regularly involved in the patient's care. [place] of Care: Patient's primary caregiver: self. Patient currently sees specialists in see below. Patient Care Team: Nivia Tinsley MD as PCP - Reagan Singleton MD (Cardiovascular Disease) Zheng Tapia MD (Internal Medicine - Primary Care) Shazia Burks MD (Neurology) Tony Baron, FRANCK Blakely Dentist Patient Active Problem List Diagnosis ??? Cerebral atherosclerosis ??? Cerebrovascular accident (HCC-CMS) ??? Coronary artery disease involving [place] coronary artery of [place] heart without angina pectoris ??? Gastro-esophageal reflux disease without esophagitis ??? Hyperlipidemia ??? Hypertension ??? Hypothyroidism, unspecified ??? Prediabetes ??? Shuffling gait ??? Vitamin D deficiency No current outpatient medications on file. Immunization History Administered Date(s) Administered ??? Influenza Vaccine High Dose (FLUZONE HIGH DOSE) PF 0.5 ml IM (65 yrs+) 07/13/2017, 08/12/2018 ??? Influenza Vaccine Pediatric Quad (FLUZONE PEDIATRIC) PF 0.25 ml IM (6-35 mos) 07/10/2016 ??? Pneumococcal Conj Vacc PCV13 (PREVNAR-13) IM 06/01/2017 ? ? Pneumococcal Polysaccharide (PPSV23) Vaccine (PNEUMOVAX-23) =>2YO SQ/IM 03/06/2016 ? ? Tdap Vaccine =>7YO IM 09/03/2017 Diet: healthy diet in general well balanced meals per day on average: 3 fruits: average no. servings per day: 1-2 vegetables: average no. servings per day: 2 high fiber low salt. Appetite: stable. Level of activity: active: 3 - 4 times per week. Functional Evaluation completed ADLs: independent. Cognitive: [place] Mini Cog score: 5 Fall Risk: . Home Safety: smoke detectors, CO detectors, hand rails, adequate lighting and no trip hazards. ROS: ROS Patient's total minutes of exercise per week were reviewed on the EMR. I reviewed the patient's functional ability and level of safety by direct observation including assessing their hearing, abilityto perform ADLs, fall risk, and home safety and find no problems unless otherwise stated. I reviewed behavioral risks including tobacco use, physical activity, nutrition, oral health, alcohol consumption, sexual practices and motor vehicle safety. I reviewed the patient's Medicare Total Health Assessment and addressed these issues. Examination: Vitals: There were no vitals taken for this visit.There is no height or weight on file to calculate BMI. Data: Assessment & Plan: There are no diagnoses linked to this encounter. Medical or community referrals made as needed for fall prevention, nutrition, physical activity programs, tobacco-use cessation, weight loss, and cognition issues as needed. Additional Plans: none. Follow-up with Nivia Tinsley for any acute or chronic issues identified. documented in this encounter Plan of Treatment Upcoming Encounters Date Type Department Care Team (Late st Contact Info) Description 06/11/2024 12:45 EDT Office Visit [facility] Op[facility]mology - [place] [address] [place] [address] Santiago Anthony MD [address] [place] [address] [address] [place] [address] 07/15/2024 10:45 EDT Office Visit [facility] [address] [place] [address] Gianfranco Flowers MD [address] [facility] [address] [place] [address] Scheduled Referrals Name Type Priority Associated Diagnoses Orde r Schedule AMB CONS/FOLLOW UP [facility] TEAM Outpatient Referral Routine Medicare annual wellness visit, subsequent Advance directive discussed with patient Ordered: 09/09/2019 documented as of this encounter Visit Diagnoses Diagnosis Medicare annual wellness visit, subsequent- Primary Routine general medical examination at a health care facility Mixed hyperlipidemia Essential hypertension Unspecified essential hypertension Coronary artery disease involving [place] coronary artery of [place] heart without angina pectoris Acquired hypothyroidism Unspecified hypothyroidism Prediabetes Other abnormal glucose Vitamin D deficiency Unspecified vitamin D deficiency Gastro-esophageal reflux disease without esophagitis Esophageal reflux Shuffling gait Abnormality of gait Screening mammogram, encounter for Advance directive discussed with patient Other specified counseling documented in this encounter Historical Medications * This list may reflect changes made after this encounter. Medication Sig Dispensed Refills Start Date End Date medical supply, miscellaneous (WALKER WHEELS ACCESSORY MISC) with seat, basket under the seat and breaks as directed dx: Abnormal gait and legally blind daily 07/13/2017 carboxymethylcellulose sodium (ARTIFICIAL TEARS, [facility], OPHTHALMIC) Apply 1-2 Drops to eye. 03/29/2020 losartan (COZAAR) 100 mg tablet 1 tab(s) orally once a day 03/15/2017 09/18/2019 Levothyroxine 100 mcg capsule Take 1 Tab by mouth. 020 Cholecalciferol, Vitamin D3, 50 mcg (2,000 unit) capsule 1 tab orally once a day 10/04/2018 02/27/2020 atenolol (TENORMIN) 50 mg tablet 1 tab(s) orally once a day 09/18/2019 atorvastatin (LIPITOR) 20 mg tablet 1 tab(s) orally once a day 09/18/2019 added in this encounter Care Teams Instructional Materials Director Relationship Specialty Start Date End Date Nivia Tinsley MD [address] [place] [address] PCP - General Family Medicine - Primary Care 08/27/19 Reagan Pickett MD [address] [place] [address] Cardiovascular Disease 09/01/19 0 Zheng Tapia MD [address] [place] [address] [place] [address] [phone] Internal Medicine - Primary Care 09/01/19 Shazia Burks MD [address] [place] [address] Neurology 09/01/19 Tony Baron OD [address] [place] [address] [phone] Radiagraph Operator 09/01/19 documented as of this encounter
--- OUTSIDE RECORDS SUMMARY | 2024-04-29 18:30 | XMS_ITS | Encounter Summary ---
Author Organization [facility] Address [address] [place] [address] Care Team Providers Care Navy Airspace Officer Name Role Phone Nivia Tinsley MD Primary Care Provider [phone] Reagan Pickett MD Unavailable Zheng Tapia MD Unavailable Shazia Burks MD Unavailable Tony Baron OD Unavailable Keira Paniagua MD Unavailable Siva Perkins MD Unavailable [phone] Sheryl Schwab RN Unavailable Ladonna Candelario Unavailable Unavailable Encounter Details Date Type Department Care Team (Late st Contact Info) Description 10/15/2019 Results Only Imaging [facility] Radiology Results [address] [place], [place] [address] Nivia Tinsley MD [address] [place] [address] Social History Tobacco Use Types Packs/Day [...] Encounter Note - Nivia Tinsley MD - 10/15/2019 1225 EST Results are abnormal. Ok to notify pt [...] Office Visit [facility] Ophthalmology [facility] [address] [place] [address] Santiago Anthony MD [address] [facility], [facility], [address] [place] [phone] 07/15/2024 10:45 EDT Office Visit [facility] Card[facility] Clinic [address] [place], [place] [phone] Gianfranco Flowers MD 130 [facility] [address] [place] [address] documented as of this encounter Procedures Procedure Name Priority Date/Time Associated Diagnosis Comments XR KNEE RIGHT 1-2 VIEWS 10/15/2019 12:25 EST documented in this encounter Results * XR KNEE RIGHT 1-2 VIEWS (10/15/2019 12:25 EST) Anatomical Region Laterality Modality Lower Extremities Right Other 10/15/2019 12:2 1 EST Narrative 10/15/2019 12:25 EST ? EXAM: RADIOLOGY/KNEE RT 1-2 VIEW ?EX. D/ (1058) ? CLINICAL INFORMATION: ? M25.561 ACUTE PAIN OF RIGHT KNEE, R/O OA. ? INDICATION: M25.561 ACUTE PAIN OF RIGHT KNEE, R/O OA. (R) KNEE PAIN ? R/O OA ? TECHNIQUE: 2 views right knee. ? COMPARISON: None. ? FINDINGS: There is mild/moderate narrowing of the medial femorotibial ? compartment joint space and small marginal osteophytes are present. ? The lateral compartment joint space is preserved. There is suspected ? mild patellofemoral compartment joint space narrowing. No acute ? osseous abnormality is detected. No sizable joint effusion is ? evident. ? IMPRESSION: ? Osteoarthritis, most advanced the medial compartment where there is ? mild/moderate joint space narrowing with associated marginal ? osteophytes. ? REPORT SIGNED IN OTHER VENDOR SYSTEM 10/15/2019 ?Reported By: Raul Mccurdy MD ? CC: ? Transcribed Date/Time: 10/15/2019 (1225) ? Heel Burnisher: ? Printed Date/Time: 10/15/2019 (1225) ? PAGE 1 ? Signed Report ? Procedure Note Raul Mccurdy MD - 10/15/2019 EXAM: RADIOLOGY/KNEE RT 1-2 VIEW EX. D/ (1058) CLINICAL INFORMATION: M25.561 ACUTE PAIN OF RIGHT KNEE, R/O OA. INDICATION: M25.561 ACUTE PAIN OF RIGHT KNEE, R/O OA. (R) KNEE PAIN R/O OA TECHNIQUE: 2 views right knee. COMPARISON: None. FINDINGS: There is mild/moderate narrowing of the medialfemorotibial compartment joint space and small marginal osteophytes are present. The lateral compartment joint space is preserved. There issuspected mild patellofemoral compartment joint space narrowing. No acute osseous abnormality is detected. No sizable joint effusion is evident. IMPRESSION: Osteoarthritis, most advanced the medial compartment where there is mild/moderate joint space narrowing with associated marginal osteophytes. REPORT SIGNED IN OTHER VENDOR SYSTEM 10/15/2019 Reported By: Raul Mccurdy MD CC: Transcribed Date/Time: 10/15/2019 (1225) Heel Burnisher: Printed Date/Time: 10/15/2019 (1225) PAGE 1 Signed Report Nivia Tinsley MD IMG DIAGNOSTIC IMAG ING ORDERABLES documented in this encounter Visit Diagnoses Not on filedocumented in this encounter Additional Health Concerns Infection Onset Date Last Indicated Resolved Time R/O COVID-19 Comment:Covid neg. 02/21/2022 02/21/2022 02/21/2022 10:07 EDT Rule-Out C. difficile 02/21/2022 02/21/20222021 14:01 EDT documented as of this encounter Care Teams Navy Airspace Officer Relationship Specialty Start Date End Date Niiva Tinsley MD [address] [place] [address] PCP - General Family Medicine - Primary Care 08/27/19 Reagan Pickett MD [address] [place] [address] Cardiovascular Disease 09/01/19 0 Zheng Tapia MD [address] [place] [address] [address] [place] [address] Internal Medicine - Primary Care 09/01/19 Shazia Burks MD [address] [place] [address] Neurology 09/01/19 Tony Baron, FRANCK [address] [place] [phone] Bacteriology Professor 09/01/19 Keira Paniagua MD [address] [place] [address] [address] [place] [address] Cardiovascular Disease 09/06/20 Siva Perkins MD [address] [place] [phone] Neurology 09/06/20 Sheryl Schwab RN [address] [place] [address] Elementary Reading Tutor 01/23/24 01/23/24 Ladonna Candelario Elementary Reading Tutor 01/23/24 documented as of this encounter
--- OUTSIDE RECORDS SUMMARY | 2024-04-29 18:31 | XMS_ITS | Encounter Summary ---
Author Organization [facility] Address [address] [place] [address] Care Team Providers Care All Source Analyst Name Role Phone Unknown, Provider Primary Care Provider [phone] Encounter Details Date Type Department Care Team (Latest Contact Info) Description 01/23/2018 23:01 EDT - 01/23/2018 23:59 EDT Hospital Encounter [facility] [address] [place] [address] Unknown, Provider, Discharge Disposition: Home or Self Care Social History Tobacco Use Types Packs/Day Years Used Date Smoking Tobacco: Never Assessed Sex and Gender Information Value Date Recorded Sex Assigned at Not on file Gender Identity Female 05/18/2021 10:23 EDT Sexual Orientation Not on file documented as of this encounter Medications at Time of Discharge Medication Sig Dispensed Refills Start Date End Date medical supply, miscellaneous (WALKER WHEELS ACCESSORY MISC) with seat, basket under the seat and breaks as directed dx: Abnormal gait and legally blind daily 07/13/2017 losartan (COZAAR) 100 mg tablet 1 tab(s) orally once a day 03/15/2017 09/18/2019 documented as of this encounter Discharge Disposition Disposition Code Departure Means Destination Home or Self [facility] documented in this encounter Plan of Treatment Upcoming Encounters Date Type Department Care Team (Late st Contact Info) Description 06/11/2024 12:45 EDT Office Visit [facility] Ophthalmology [facility] [address] [place] [address] Santiago Anthony MD 111 [facility], [facility] [address] [place] [address] 07/15/2024 10:45 EDT Office Visit [facility] Clinic [address] [place] [address] Gianfranco Flowers MD 130 [facility] [address] [place] [address] documented as of this encounter Visit Diagnoses Not on filedocumented in this encounter Care Teams All Source Analyst Relationship Specialty Start Date End Date Unknown, Provider, PCP - General 01/14/15 08/26/19 documented as of this encounter
--- OUTSIDE RECORDS SUMMARY | 2024-04-29 18:31 | XMS_ITS | Encounter Summary ---
Author Organization [facility] Address [address] [place] [address] Care Team Providers Care Micro Computer Specialist Name Role Phone Unknown, Provider Primary Care Provider [phone] Encounter Details Date Type Department Care Team (Late st Contact Info) Description 08/14/2017 Historical Results Only [facility] - [address] [id number] Nivia Tinsley MD [address] [place] [phone] Social History Tobacco Use Types Packs/Day Years [...] 06/11/2024 12:45 EDT Office Visit [facility] Ophthalmology [facility] [address] [place] [address] Santiago Anthony MD 111 [facility] [address] [place] [address] 07/15/2024 10:45 EDT Office Visit [facility] [address] [place] [phone] Gianfranco Flowers MD [address] [place] [address] [address] [place] [address] documented as of this encounter Procedures Procedure Name Priority Date/Time Associated Diagnosis Comments HEMOGLOBIN A1C Routine 08/14/2017 11:30 EST documented in this encounter Results * (ABNORMAL) HEMOGLOBIN A1C (08/14/2017 11:30 EST) Hemoglobin A1c 6.3(H) 4.0 - 6.0 % 08/14/2017 23:46 EST [facility] Est Avg Glucose 134 mg/dL 7 23:46 EST [facility] 08/14/2017 11:3 0 EST 08/14/2017 17:26 EST Nivia Tinsley MD CHEMISTRY & BLOOD G ORDERABLES [facility] documented in this encounter Visit Diagnoses Not on filedocumented in this encounter Care Teams Micro Computer Specialist Relationship Specialty Start Date End Date Unknown, Provider, PCP - General 01/14/15 08/26/19 documented as of this encounter
--- OUTSIDE RECORDS SUMMARY | 2024-04-29 18:31 | XMS_ITS | Encounter Summary ---
Author Organization [facility] Address [address] [place] [address] Care Team Providers Care Milling Operator Name Role Phone Unknown, Provider Primary Care Provider Encounter Details Date Type Department Care Team (Late st Contact Info) Description 01/29/2017 Historical Results Only [facility] - [address] [phone] Nivia Tinsley MD [address] [place] [phone] Social History Tobacco Use Types Packs/Day Years Used Date Smoking Tobacco: Never Assessed Sex and Gender Information Value Date Recorded Sex Assigned at Not on file Gender Identity Female 05/18/2021 10:23 EDT Sexual Orientation Not on file documented as of this encounter Plan of Treatment Upcoming Encounters Date Type Department Care Team (Late st Contact Info) Description 06/11/2024 12:45 EDT Office Visit [facility] Ophthalmology [facility] [address] [place] [address] Santiago Anthony MD 111 [facility] [address] [place] [address] 07/15/2024 10:45 EDT Office Visit [facility] Cardiology Clinic [address] [place] [phone] Gianfranco Flowers MD [address] [place] [address] [address] [place] [address] documented as of this encounter Procedures Procedure Name Priority Date/Time Associated Diagnosis Comments COMPREHENSIVE METABOLIC PANEL (CMP) Routine 01/29/2017 9:55 EDT documented in this encounter Results * (ABNORMAL) COMPREHENSIVE METABOLIC PANEL (CMP) (01/29/2017 9:55 EDT) Pathologist [facility] Albumin % 3.6 3.4 - 5.0 g/dL 01/29/2017 15:05 [facility] ALKALINE PHOSPHATASE - [facility] 115 41 - 126 U/L 01/29/2017 15:05 [facility] BILIRUBIN TOTAL 0.5 0.0 - 1.0 mg/dL 01/29/2017 15:05 [facility] BUN - [facility] 16 7 - 18 mg/dL 01/29/2017 15:05 [facility] CALCIUM - [facility] 8.8 8.5 - 10.1 mg/dL 01/29/2017 15:05 [facility] Chloride 104 98 - 107 mEq/L 01/29/2017 15:05 [facility] CO2 Total 22 21 - 32 mEq/L 01/29/2017 15:05 [facility] CREATININE 0.93 0.5 - 1.3 mg/dL 01/29/2017 15:05 [facility] eGFR 58 01/29/2017 15:05 [facility] Comment: Stage 3: Moderate renal impairment is defined as GFR 30-59 Multiply result by 1.210 for patients. eGFR calculated using the IDMS-traceable MDRD Study Equation. ??(effective 08/03/2014) Anion Gap 12 5 - 15 01/29/2017 15:05 [facility] GLUCOSE - [facility] 149(H) 70 - 100 mg/dL 01/29/2017 15:05 [facility] Potassium 4.0 3.5 - 5.0 mEq/L 01/29/2017 15:09 EDT [facility] Sodium 138 135 - 145 mEq/L 01/29/2017 15:05 EDT [facility] TOTAL PROTEIN - [facility] 6.7 6.4 - 8.2 gm/dl 01/29/2017 15:05 EDT [facility] SGOT/AST - [facility] 18 10 - 37 U/L 01/29/2017 15:09 EDT [facility] SGPT/ALT - [facility] 32 12 - 78 U/L 01/29/2017 15:05 EDT [facility] 01/29/2017 9:55 EDT 01/29/2017 14:02 EDT Nivia Tinsley MD CHEMISTRY & BLOOD G ORDERABLES [facility] documented in this encounter Visit Diagnoses Not on filedocumented in this encounter Care Teams Milling Operator Relationship Specialty Start Date End Date Unknown, Provider, PCP - General 01/14/15 08/26/19 documented as of this encounter
--- OUTSIDE RECORDS SUMMARY | 2024-04-29 18:31 | XMS_ITS | Encounter Summary ---
Author Organization [facility] Address [address] [place] [address] Care Team Providers Care Job Placement Specialist Name Role Phone Unknown, Provider Primary Care Provider [phone] Encounter Details Date Type Department Care Team (Late Contact Info) Description 10/18/2016 Historical Results Only [facility] Radiology Results [address] [place], [place] [id number] Nivia Tinsley MD [address] [place] [phone] Social History Tobacco Use Types Packs/Day Years Used Date Smoking Tobacco: Never Assessed Sex and Gender Information Value Date Recorded Sex Assigned at Not on file Gender Identity Female 05/18/2021 10:23 EDT Sexual Orientation Not on file documented as of this encounter Plan of Treatment Upcoming Encounters Date Type Department Care Team (Late Contact Info) Description 06/11/2024 12:45 EDT Office Visit [facility] Ophthalmology [facility] [address] [place] [address] Santiago Anthony MD [address] [facility] [address] [place] [address] 07/15/2024 10:45 EDT Office Visit [facility] Cardiology Clinic [address] [place], [place] [address] Gianfranco Flowers MD [address] [place], [place] [address]A [address] [place] [address] documented as of this encounter Procedures Procedure Name Priority Date/Time Associated Diagnosis Comments MA BREAST SCREENING LEANN BILATERAL 10/18/2016 13:25 EST documented in this encounter Results * MA BREAST SCREENING LEANN BILATERAL (10/18/2016 13:25 EST) Anatomical Region Laterality Modality Breast Bilateral Other 10/18/2016 13:2 5 EST Narrative 10/19/2016 9:22 EST ? EXAM: MAMMOGRAM/MAMMO BILATERAL SCREEN W ??EX. D/ (6005) ? CLINICAL INFORMATION: ? Z12.31 SCREENING MAMMOGRAM ? TECHNIQUE: ??Full field digital whole breast 2D (C-view) and 3D CC and ? MLO views of both breasts were obtained. CAD technology was utilized. ? INDICATION: ??Screening ? FINDINGS: ??The fibroglandular patterns of the breasts are normal. ? There has been no change when compared to previous mammograms and ? there is no mammographic evidence of cancer. The breasts are of ? scattered density. ? FINAL ASSESSMENT: ??BILATERAL BREAST - Category 1 - Negative. Routine ?mammographic follow-up is recommended. ? These results will be communicated to your patient via a lay letter ? from Radiology. ??If any additional imaging is needed we will contact ? your patient directly. ? REM:kad ?Reported By: Raul Mccurdy MD ? CC: ? Transcribed Date/Time: 10/19/2016 (921) ? Component Technician: OFELIA ? Printed Date/Time: 03/14/2019 (2017) ? PAGE 1 ? Signed Report ? Procedure Note Raul Mccurdy E - 08/06/2019 EXAM: MAMMOGRAM/MAMMO BILATERAL SCREEN W EX. D/ (1325) CLINICAL INFORMATION: Z12.31 SCREENING MAMMOGRAM TECHNIQUE: Full field digital whole breast 2D (C-view) and 3D CCand MLO views of both breasts were obtained. CAD technology wasutilized. INDICATION: Screening FINDINGS: The fibroglandular patterns of the breasts are normal. There has been no change when compared to previous mammograms and there is no mammographic evidence of cancer. The breasts are of scattered density. FINAL ASSESSMENT: BILATERAL BREAST - Category 1 - Negative.Routine mammographic follow-up is recommended. These results will be communicated to your patient via a lay letter from Radiology. If any additional imaging is needed we willcontact your patient directly. REM:[email or web address] Reported By: Raul Mccurdy MD CC: Transcribed Date/Time: 10/19/2016 (921) Component Technician: OFELIA Printed Date/Time: 03/14/2019 (2018) PAGE 1 Signed Report Nivia Tinsley MD IMG MAMMOGRAPHY ORD ERABLES documented in this encounter Visit Diagnoses Not on filedocumented in this encounter Care Teams Job Placement Specialist Relationship Specialty Start Date End Date Unknown, Provider, PCP - General 01/14/15 08/26/19 documented as of this encounter
--- OUTSIDE RECORDS SUMMARY | 2024-04-29 18:31 | XMS_ITS | Encounter Summary ---
Author Organization [facility] Address [address] [place] [address] Care Team Providers Care District Administrative Assistant Name Role Phone Unknown, Provider Primary Care Provider Encounter Details Date Type Department Care Team (Late Contact Info) Description 10/16/2018 Historical Results Only [facility] Radiology Results [address] [place] [address] Radha Hendrickson, APRIL [address] [place] [phone] Social History Tobacco Use Types Packs/Day Years Used Date Smoking Tobacco: Never Assessed Sex and Gender Information Value Date Recorded Sex Assigned at Not on file Gender Identity Female 05/18/2021 10:23 EDT Sexual Orientation Not on file documented as of this encounter Plan of Treatment Upcoming Encounters Date Type Department Care Team (Late Contact Info) Description 06/11/2024 12:45 EDT Office Visit [facility] Ophthalmology [facility] [address] [place], [place] [address] Santiago Anthony MD 111 [facility] [address] [place] [address] 07/15/2024 10:45 EDT Office Visit [facility] Cardiology Clinic [address] [place] [address] Gianfranco Flowers MD [address] [place], [place] [address] [address] [place] [address] documented as of this encounter Procedures Procedure Name Priority Date/Time Associated Diagnosis Comments MA BREAST SCREENING LEANN BILATERAL 10/16/2018 9:34 EST documented in this encounter Results * MA BREAST SCREENING LEANN BILATERAL (10/16/2018 9:34 EST) Anatomical Region Laterality Modality Breast Bilateral Other 10/16/2018 9:34 EST Narrative 10/16/2018 9:34 EST ? EXAM: MAMMOGRAM/MAMMO BILATERAL SCREEN W ??EX. D/ (1215) ? CLINICAL INFORMATION: ? Z12.31 SCREENING ? MAMMO BILATERAL SCREEN W LEANN ? SIGNS AND SYMPTOMS/COMMENTS: ??Z12.31 SCREENING ? COMPARISONS: MAMMOGRAPHY - 10/18/2016, 05/14/2013, 02/10/2010, ? 02/09/2009. ? FINDINGS: ? RIGHT BREAST MAMMOGRAPHY: Full field digital whole breast 2-D ? (C-view) and 3-D CC and MLO views of the right breast were obtained. ? CAD technology was utilized. ? The breast tissue is of scattered density. There is a possible new ? focal asymmetry in the upper breast. ? LEFT BREAST MAMMOGRAPHY: Full field digital whole breast 2-D (C-view) ? and 3-D CC and MLO views of the left breast were obtained. CAD ? technology was utilized. ? The breast tissue is of scattered density. No suspicious mass, ? calcifications, or architectural distortion is identified. ? RIGHT BREAST IMPRESSION: BI-RADS Category 0: Additional imaging ? required. ? Possible new focal asymmetry in the upper breast. Additional imaging ? required. ? LEFT BREAST IMPRESSION: BI-RADS Category 1: Normal. ? Normal. ? RECOMMENDATION: Additional imaging of the right breast required. ? FINAL ASSESSMENT: ??RIGHT BREAST - BI-RADS Category 0 - Incomplete; ? additional imaging evaluation needed. ? FINAL ASSESSMENT: ??LEFT BREAST - BI-RADS Category 1 - Negative. ? These results will be communicated to your patient via a lay letter ? from Radiology. ??If any additional imaging is needed we will contact ? your patient directly. ? REPORT SIGNED IN OTHER VENDOR SYSTEM 10/16/2018 ?Reported By: Jameson Calderon MD ? CC: ? Transcribed Date/Time: 10/16/2018 (0934) ? Charter Bus Driver: ? Printed Date/Time: 03/23/2019 (0950) ? PAGE 1 ? Signed Report ? Procedure Note Jameson Calderon MD - 08/07/2019 EXAM: MAMMOGRAM/MAMMO BILATERAL SCREEN W EX. D/ (1215) CLINICAL INFORMATION: Z12.31 SCREENING MAMMO BILATERAL SCREEN W LAENN SIGNS AND SYMPTOMS/COMMENTS: Z12.31 SCREENING COMPARISONS: MAMMOGRAPHY - 10/18/2016, 05/14/2013, 02/10/2010, 02/09/2009. FINDINGS: RIGHT BREAST MAMMOGRAPHY: Full field digital whole breast 2-D (C-view) and 3-D CC and MLO views of the right breast wereobtained. CAD technology was utilized. The breast tissue is of scattered density. There is a possible new focal asymmetry in the upper breast. LEFT BREAST MAMMOGRAPHY: Full field digital whole breast 2-D(C-view) and 3-D CC and MLO views of the left breast were obtained. CAD technology was utilized. The breast tissue is of scattered density. No suspicious mass, calcifications, or architectural distortion is identified. RIGHT BREAST IMPRESSION: BI-RADS Category 0: Additional imaging required. Possible new focal asymmetry in the upper breast. Additionalimaging required. LEFT BREAST IMPRESSION: BI-RADS Category 1: Normal. Normal. RECOMMENDATION: Additional imaging of the right breast required. FINAL ASSESSMENT: RIGHT BREAST - BI-RADS Category 0 - Incomplete; additional imaging evaluation needed. FINAL ASSESSMENT: LEFT BREAST - BI-RADS Category 1 - Negative. These results will be communicated to your patient via a lay letter from Radiology. If any additional imaging is needed we willcontact your patient directly. REPORT SIGNED IN OTHER VENDOR SYSTEM 10/16/2018 Reported By: Jameson Calderon MD CC: Transcribed Date/Time: 10/16/2018 (0934) Charter Bus Driver: Printed Date/Time: 03/23/2019 (0990) PAGE 1 Signed Report Radha Hendrickson APRIL IMG MAMMOGRAPHY ORDERABLES documented in this encounter Visit Diagnoses Not on filedocumented in this encounter Care Teams District Administrative Assistant Relationship Specialty Start Date End Date Unknown, Provider, PCP - General 01/14/15 08/26/19 documented as of this encounter
--- OUTSIDE RECORDS SUMMARY | 2024-04-29 18:31 | XMS_ITS | Encounter Summary ---
Author Organization [facility] Address [address] [place] [address] Care Team Providers Care Napper Fixer Name Role Phone Unknown, Provider Primary Care Provider Encounter Details Date Type Department Care Team (Late Contact Info) Description 09/13/2016 Historical Results Only [facility] Radiology Results [address] [place], [place] [address] Nivia Tinsley MD [address] [place] [phone] Social History Tobacco Use Types Packs/Day Years [...] Office Visit [facility] Ophthalmology [facility] [address] [place] [address] Santiago Anthony MD 111 [facility] [address] [place] [address] 07/15/2024 10:45 EDT Office Visit [facility] Cardiology Clinic [address] [place], [place] [address] Gianfranco Flowers MD [address] [facility] [address] [place] [phone] documented as of this encounter Procedures Procedure Name Priority Date/Time Associated Diagnosis Comments NM CARD SPECT NUCLEAR STRESS 09/13/2016 9:39 EST documented in this encounter Results * NM CARD SPECT NUCLEAR STRESS (09/13/2016 9:39 EST) Anatomical Region Laterality Modality Chest Nuclear Stress 09/13/2016 9:39 EST Narrative 09/14/2016 9:01 EST ? EXAM: NUCLEAR MEDICINE/NUCLEAR STRESS RUEL EX. D/ (0939) ? CLINICAL INFORMATION: ? R94.31 ABNORMAL IKG ? R/O ISCHEMIA ? *[facility]* ? *[facility]* ? [address] [place] [address] ? [place] [address] ? Myocardial Perfusion Imaging - SPECT ? Regadenoson ? Date of study: ??09/13/2016 ? *PATIENT PRESENTATION* ? Height: ? 165.1cm ((65in) ) ? Blood Pressure: ? Weight: ? 73.2kg ((161lb) ) ? BSA: ?1.85m S 2 ? Ordering physician: Nivia Tinsley ? Summary: ? 1. Myocardial perfusion imaging: There is a small sized, moderately ?intense, predominantly reversible defect involving the ?inferolateral wall(s). ? 2. The calculated left ventricular ejection fraction after stress: ?80%. No left ventricular regional motion abnormality. ? Indication: ?? (CHEST PAIN). ? History: ??PAST 6 MONTH, RANDOM EPISODES OF NONEXERTIONAL, ? NON-RADIATING CHEST DISCOMFORT. SOME SOB WITH EXERTION. SYMPTOMS LAST ? A FEW MINUTES, VAGUE TO FREQUENCY. ECG AT PCP READ ABNORMAL WITH ? NEW T WAVE INVERSIONS V4-V6. ? NO PREVIOUS CARDIAC HISTORY. ? Risk factors: ??Family history of coronary artery disease. ? Hypertension. 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 ? Cholesterol: 214mg/dl. ? HDL: 33mg/dl. ? LDL: 91mg/dl. ? Triglycerides: 456mg/dl. ? Allergies: ??No known allergies. ? MEDS: ASA 81 MG, ATORVASTATIN 10 MG, ATENOLOL 50 MG, LOSARTAN 100 MG, ? LEVOTHYROXINE, FEXOFENADINE. ? Imaging Technique: ? PAGE 1 ? Signed Report ? (CONTINUED) ? Protocol: ??Regadenoson. ? Acquisition: ?? Gated SPECT; 1 day - rest/stress. ?The patient was ? imaged in the supine position. Attenuation correction used.Isotope ? administration: ? - Rest. Tc[99m]-sestamibi. Injection to stress time: 00:45. ? - Stress. Tc[99m]-sestamibi. 1-2 min before end of exercise ? Baseline ECG: ??NSR- 79 BPM ? NONSPECIFIC ST AND T WAVE ABNORMALITIES. ? Stress protocol: ? +--------+---+ +--------+ + ? !Stage ?? !HR !BP (mmHg) ?!Symptoms!Pharmaceuticals ? !Comments ? ! ? +--------+---+ +--------+ + ? !Baseline!78 !191/101 ? (131)!--------! ! ! ? +--------+---+ +--------+ + ? !Standing!98 ? ! !--------! ! ! ? +--------+---+ +--------+ + ? !1 min ?? !103!155/99 (118) !--------! !Inject ? ! ? ! ?! ?? ! ? ! ?! ?!Regadenoson. ? ! ? +--------+---+ +--------+ + ? !2 min ? !105! !--------! ! ! ? +--------+---+ +--------+ + ? !3 min ?? !103!171/104 ? (126)!--------! ! ! ? +--------+---+ +--------+ + ? !4 min ?? !101! !Headache!AMINOPHYLLINE 75 MG ? ! ! ? ! ?! ?? ! ? ! ?!IV, 5 min into ?! ? ! ? ! ?! ?? ! ? ! ?!stage, Administered ! ? ! ? ! ?! ?? ! ? ! ?!by: Evelia ? ! ? ! ? ! ?! ?? ! ? ! ?!Chole, RN ?! ? ! ? +--------+---+ +--------+ + ? !5 min ?? !98 !189/85 (120) ? !--------! ! ! ? +--------+---+ +--------+ + ? !6 min ?? !98 ? ! !--------! ! ! ? +--------+---+ +--------+ + ? !7 min ?? !98 ? ! !Resolved! ! ! ? +--------+---+ +--------+ + ? * ? Stress results: ??The rate-pressure product for the peak heart rate and ? blood pressure was 36133gt Hg/min. ? Stress ECG: ? PAGE 2 ? Signed Report ? (CONTINUED) ? RESTING LEXISCAN STUDY ? NO ECTOPY ? NO CHEST PAIN ? AMINOPHYLLINE 75 MG IVP GIVEN FOR C/O HEADACHE ? ECG ABNORMAL AT REST, NO ADDITIONAL ECG CHANGES. ? Myocardial perfusion: ?? Imaging information: gated. There is a small ? sized, moderately intense, predominantly reversible defect involving ? the inferolateral wall(s). ? Ventricular Function (Wall Motion): ?? The calculated left ventricular ? ejection fraction after stress: 80%. ?? No left ventricular regional ? motion abnormality. ? Study data: ??Dona Gale MD supervised and was readily available ? during the procedure. This study was interpreted by [facility] [place] [facility]. ? Study status: ??Routine. ? Consent: ??The risks, benefits, and alternatives to the procedure were ? explained to the patient and informed consent was obtained. ? Procedure: ??Initial setup. A baseline ECG was recorded. Surface ECG ? leads and manual cuff blood pressure measurements were monitored. ? Heart sounds: Normal. ? Lung sounds: Normal. ? Regadenoson stress test. Stress testing was performed, with ? regadenoson by intravenous bolus, for a total dose of 0.4mgover ? 10.00sec, followed by a 5ml saline flush. The infusion was terminated ? due to per protocol. The patient was unable to exercise due to USES A ? CANE, VISION PROBLEMS. ? Study completion: ??All catheters inserted during the procedure were ? removed. The patient tolerated the procedure well and was discharged ? from the lab. ? Discharge: ??The patient left the laboratory in stable condition. ? Birthdate: ??Patient birthdate: 1940. ? Sex: Gender: female. ? Study date: ??Study date: 09/13/2016. ? Study time: 10:00 AM. ? Electronically signed by ? PAGE 3 ? Signed Report ? (CONTINUED) ? Dona Gale MD ? 09/13/2016 10:56 ?Reported By: DONA Grace ? CC: ? Transcribed Date/Time: 09/14/2016 (0901) ? Fresh Work Wrapper Layer: OFELIA ? Printed Date/Time: 03/14/2019 (2017) ? PAGE 4 ? Signed Report ? Procedure Note Dona Gale MD - 08/06/2019 EXAM: NUCLEAR MEDICINE/NUCLEAR STRESS RUEL EX. D/ (0939) CLINICAL INFORMATION: R94.31 ABNORMAL IKG R/O ISCHEMIA *[facility]* *[facility]* [address] [place] [address] Myocardial Perfusion Imaging - SPECT Regadenoson Date of study: 09/13/2016 *PATIENT PRESENTATION* Height: 165.1cm ((65in) ) Blood Pressure: Weight: 73.2kg ((161lb) ) BSA: 1.85m S 2 Ordering physician: Nivia Tinsley Summary: 1. Myocardial perfusion imaging: There is a small sized, moderately intense, predominantly reversible defect involving the inferolateral wall(s). 2. The calculated left ventricular ejection fraction after stress: 80%. No left ventricular regional motion abnormality. Indication: (CHEST PAIN). History: PAST 6 MONTH, RANDOM EPISODES OF NONEXERTIONAL, NON-RADIATING CHEST DISCOMFORT. SOME SOB WITH EXERTION. SYMPTOMSLAST A FEW MINUTES, VAGUE TO FREQUENCY. ECG AT PCP READ ABNORMALWITH NEW T WAVE INVERSIONS V4-V6. NO PREVIOUS CARDIAC HISTORY. Risk factors: Family history of coronary artery disease. Hypertension. Dyslipidemia, on statin (HMG-CoA reductase inhibitor) therapy. Cholesterol: 214mg/dl. HDL: 33mg/dl. LDL: 91mg/dl. Triglycerides: 456mg/dl. Allergies: No known allergies. MEDS: ASA 81 MG, ATORVASTATIN 10 MG, ATENOLOL 50 MG, LOSARTAN 100MG, LEVOTHYROXINE, FEXOFENADINE. Imaging Technique: PAGE 1 Signed Report (CONTINUED) Protocol: Regadenoson. Acquisition: Gated SPECT; 1 day - rest/stress. The patient was imaged in the supine position. Attenuation correction used.Isotope administration: - Rest. Tc[99m]-sestamibi. Injection to stress time: 00:45. - Stress. Tc[99m]-sestamibi. 1-2 min before end of exercise Baseline ECG: NSR- [address] AND T WAVE ABNORMALITIES. Stress protocol: +--------+---+ +--------+ + !Stage !HR !BP (mmHg) !Symptoms!Pharmaceuticals !Comments ! +--------+---+ +--------+ + !Baseline!78 !191/101 (131)!--------! ! ! +--------+---+ +--------+ + !Standing!98 ! !--------! ! ! +--------+---+ +--------+ + !1 min !103!155/99 (118) !--------! !Inject ! ! ! ! ! !!Regadenoson. ! +--------+---+ +--------+ + !2 min !105! !--------! ! ! +--------+---+ +--------+ + !3 min !103!171/104 (126)!--------! ! ! +--------+---+ +--------+ + !4 min !101! !Headache!AMINOPHYLLINE 75 MG ! ! ! ! ! ! !IV, 5 min into ! ! ! ! ! ! !stage, Administered ! ! ! ! ! ! !by: Evelia ! ! ! ! ! ! !Chloe RN ! ! +--------+---+ +--------+ + !5 min !98 !189/85 (120) !--------! ! ! +--------+---+ +--------+ + !6 min !98 ! !--------! ! ! +--------+---+ +--------+ + !7 min !98 ! !Resolved! ! ! +--------+---+ +--------+ + * Stress results: The rate-pressure product for the peak heart rateand blood pressure was 69663hl Hg/min. Stress ECG: PAGE 2 Signed Report (CONTINUED) RESTING LEXISCAN STUDY NO ECTOPY NO CHEST PAIN AMINOPHYLLINE 75 MG IVP GIVEN FOR C/O HEADACHE ECG ABNORMAL AT REST, NO ADDITIONAL ECG CHANGES. Myocardial perfusion: Imaging information: gated. There is asmall sized, moderately intense, predominantly reversible defectinvolving the inferolateral wall(s). Ventricular Function (Wall Motion): The calculated leftventricular ejection fraction after stress: 80%. No left ventricular regional motion abnormality. Study data: Dona Gale MD supervised and was readily available during the procedure. This study was interpreted by [facility] Cardiology. Study status: Routine. Consent: The risks, benefits, and alternatives to the procedurewere explained to the patient and informed consent was obtained. Procedure: Initial setup. A baseline ECG was recorded. Surface ECG leads and manual cuff blood pressure measurements were monitored. Heart sounds: Normal. Lung sounds: Normal. Regadenoson stress test. Stress testing was performed, with regadenoson by intravenous bolus, for a total dose of 0.4mgover 10.00sec, followed by a 5ml saline flush. The infusion wasterminated due to per protocol. The patient was unable to exercise due to USESA CANE, VISION PROBLEMS. Study completion: All catheters inserted during the procedure were removed. The patient tolerated the procedure well and wasdischarged from the lab. Discharge: The patient left the laboratory in stable condition. Birthdate: Patient birthdate: 1940. Sex: Gender: female. Study date: Study date: 09/13/2016. Study time: 10:00 AM. Electronically signed by PAGE 3 Signed Report (CONTINUED) Dona Gale MD 09/13/2016 10:56 Reported By: DONA Grace CC: Transcribed Date/Time: 09/14/2016 (09) Fresh Work Wrapper Layer: OFELIA Printed Date/Time: 03/14/2019 (2018) PAGE 4 Signed Report Nivia Tinsley MD CARDIAC NM ORDERABL ES documented in this encounter Visit Diagnoses Not on filedocumented in this encounter Care Teams Napper Fixer Relationship Specialty Start Date End Date Unknown, Provider, PCP - General 01/14/15 08/26/19 documented as of this encounter
--- OUTSIDE RECORDS SUMMARY | 2024-04-29 18:31 | XMS_ITS | Encounter Summary ---
Author Organization [facility] Address [address] [place] [address] Care Team Providers Care Beef Specialist Name Role Phone Unknown, Provider Primary Care Provider Encounter Details Date Type Department Care Team (Late st Contact Info) Description 08/01/2017 Historical Results Only [facility] - [address] [address] Nivia Tinsley MD [address] [place] [address] [phone] Social History Tobacco Use Types Packs/Day Years Used Date Smoking Tobacco: Never Assessed Sex and Gender Information Value Date Recorded Sex Assigned at Not on file Gender Identity Female 05/18/2021 10:23 EDT Sexual Orientation Not on file documented as of this encounter Plan of Treatment Upcoming Encounters Date Type Department Care Team (Late st Contact Info) Description 06/11/2024 12:45 EDT Office Visit [facility] Ophthalmology [facility] [address] [place] [address] Santiago Anthony MD 111 [facility] 5 [place] [address] 07/15/2024 10:45 EDT Office Visit [facility] Cardiology Clinic [address] [place] [phone] Gianfranco Flowers MD [address] [place], [place] [address]A [address] [place] [address] documented as of this encounter Procedures Procedure Name Priority Date/Time Associated Diagnosis Comments LDL CHOL DIRECT - [facility] Routine 7 9:11 EDT TSH Routine 08/01/2017 9:11 EDT LIPID PROFILE (INCLUDES CHOLESTEROL, TRIGLYCERIDES, HDL, LDL) Routine 08/01/2017 9:11 EDT COMPREHENSIVE METABOLIC PANEL (CMP) Routine 08/01/2017 9:11 EDT documented in this encounter Results * (ABNORMAL) LIPID PROFILE (INCLUDES CHOLESTEROL, TRIGLYCERIDES, HDL, LDL) (08/01/2017 9:11 EDT) Triglyceride 462 <150 mg/dL 08/01/2017 18:08 T [facility] Comment: Adult: Normal: ?<150 mg/dl ? Borderline High: 150-199 mg/dl ? High: ?200-499 mg/dl ? Very High: >mi=464 Cholesterol 215(H) <200 mg/dL 08/01/2017 18:08 [facility] Comment: Acceptable: ??<200 Borderline: ??200-239 High: ?> or = 240 Chol/HDL Ratio 5.9(H) 0 - 4.5 08/01/2017 18:08 [facility] Comment: DESIRABLE RATIO IS LESS THAN 4.1 PATIENTS ARE CONSIDERED AT RISK: WOMEN RATIO >5 MEN RATIO >6 FASTING? - [facility] FASTING 7 13:58 [facility] HDL 36(L) 40 - 60 mg/dL 08/01/2017 18:08 [facility] Comment: ?? Reference Range Low: ? < 40 ??mg/dL Normal: ??40-60 mg/dL High: ?>= 60 mg/dL LDL CHOLESTEROL - [facility] TNP 60 - 100 mg/dL 08/01/2017 18:08 EDT [facility] Non HDL Cholesterol 179 mg/dl 08/01/2017 18:08 EDT [facility] Comment: Desirable: ?Less than 130 Borderline High: ??130-159 High: ? 160-189 Very High: ?Greater than or equal to 190 08/01/2017 9:11 EDT 08/01/2017 13:57 EDT Nivia Tinsley MD CHEMISTRY & BLOOD G ORDERABLES Performing Organization Address [facility] de Phone Number [facility] * LDL CHOL DIRECT - [facility] (08/01/2017 9:11 EDT) LDL CHOLESTEROL DIRECT - [facility] 107 mg/dL 08/01/2017 21:55 EDT [facility] Comment: The National Cholesterol Education Program Adult Treatment Panel III (NCEP-ATP III) provides the following classifications of LDL: Category ? mg/dl Optimal ?<100 ? Near Optimal ? 100-129 Borderline High ?130-159 High ? 160-189 Very High ?> or = 190 08/01/2017 9:11 EDT 08/01/2017 13:57 EDT Nivia Tinsley MD CHEMISTRY & BLOOD G ORDERABLES Performing Organization Address [facility] Co de Phone Number [facility] * (ABNORMAL) COMPREHENSIVE METABOLIC PANEL (CMP) (08/01/2017 9:11 EDT) Pathologist [facility] Albumin % 4.1 3.4 - 4.9 g/dL 08/01/2017 18:08 [facility] ALKALINE PHOSPHATASE - [facility] 94 38 - 126 U/L 08/01/2017 18:08 [facility] BILIRUBIN TOTAL 0.9 0.2 - 1.3 mg/dL 08/01/2017 18:08 [facility] BUN - [facility] 16 10 - 26 mg/dL 08/01/2017 18:08 [facility] CALCIUM - [facility] 9.6 8.5 - 10.5 mg/dL 08/01/2017 18:08 [facility] Chloride 104 96 - 110 mmol/L 08/01/2017 18:08 [facility] CO2 Total 23 22 - 32 mEq/L 08/01/2017 18:08 [facility] CREATININE 0.83 0.52 - 1.04 mg/dL 08/01/2017 18:08 [facility] eGFR >60 08/01/2017 18:08 [facility] Comment: Chronic renal impairment is defined as GFR <60 Multiply result by 1.210 for patients. eGFR calculated using the IDMS-traceable MDRD Study Equation. ??(effective 08/03/2014) Anion Gap 10 5 - 15 08/01/2017 18:08 [facility] GLUCOSE - [facility] 122(H) 70 - 100 mg/dL 08/01/2017 18:08 [facility] Potassium 4.2 3.5 - 5.0 mEq/L 08/01/2017 18:08 [facility] Sodium 137 136 - 145 mEq/L 08/01/2017 18:08 [facility] TOTAL PROTEIN - [facility] 7.0 6.2 - 8.2 gm/dL 08/01/2017 18:08 [facility] SGOT/AST - [facility] 29 14 - 36 U/L 08/01/2017 18:08 [facility] SGPT/ALT - [facility] 47 9 - 52 U/L 08/01/201 7 18:08 [facility] 08/01/2017 9:11 EDT 08/01/2017 13:57 EDT Nivia Tinsley MD CHEMISTRY & BLOOD G ORDERABLES Performing Organization Address City/[facility]/ZIP Co de Phone Number [facility] * TSH (08/01/2017 9:11 EDT) [facility] THYROID STIM HORMONE - [facility] 2.75 0.46 - 4.68 uIU/ml 08/01/2017 18:34 EDT [facility] 08/01/2017 9:11 EDT 08/01/2017 13:57 EDT Nivia Tinsley MD CHEMISTRY & BLOOD G ORDERABLES Performing Organization Address [facility] Co de Phone Number [facility] documented in this encounter Visit Diagnoses Not on filedocumented in this encounter Care Teams Beef Specialist Relationship Specialty Start Date End Date Unknown, Provider, PCP - General 01/14/15 08/26/19 documented as of this encounter
--- OUTSIDE RECORDS SUMMARY | 2024-04-29 18:31 | XMS_ITS | Encounter Summary ---
Author Organization [facility] Address [address] [place] [address] Care Team Providers Care Health Club Attendant Name Role Phone Unknown, Provider Primary Care Provider Encounter Details Date Type Department Care Team (Late st Contact Info) Description 01/29/2017 Historical Results Only [facility] - [address] [id number] Nivia Tinsley MD [address] [place] [phone] Social History Tobacco Use Types Packs/Day Years [...] EDT Office Visit [facility] Ophthalmology [facility] [address] [place] [address] Santiago Anthony MD 111 [facility] 5 [place] [address] 07/15/2024 10:45 EDT Office Visit [facility] Cardiology Clinic [address] [place] [phone] Gianfranco Flowers MD [address] [place], [place] [address]A [address] [place] [address] documented as of this encounter Procedures Procedure Name Priority Date/Time Associated Diagnosis Comments TSH Routine 01/29/2017 9:55 EDT documented in this encounter Results * (ABNORMAL) TSH (01/29/2017 9:55 EDT) Pathologist [facility] THYROID STIM HORMONE - [facility] 7.18(H) 0.35 - 5.50 uIU/mL 01/29/2017 15:02 EDT [facility] 01/29/2017 9:55 EDT 01/29/2017 14:02 EDT Nivia Tinsley MD CHEMISTRY & BLOOD G ORDERABLES [facility] documented in this encounter Visit Diagnoses Not on filedocumented in this encounter Care Teams Health Club Attendant Relationship Specialty Start Date End Date Unknown, Provider, PCP - General 01/14/15 08/26/19 documented as of this encounter
--- OUTSIDE RECORDS SUMMARY | 2024-04-29 18:31 | XMS_ITS | Encounter Summary ---
Author Organization [facility] Address [address] [place] [address] Care Team Providers Care Lens Cementer Name Role Phone Unknown, Provider Primary Care Provider Encounter Details Date Type Department Care Team (Latest Contact Info) Description 10/12/2017 23:55 EST - 10/12/2017 23:59 EST Hospital Encounter [facility] [address] [place] [address] Unknown, Provider, Discharge Disposition: Home or Self [...] Code Departure Means Destination Home or Self [facility] documented in this encounter Plan of Treatment Upcoming Encounters Date Type Department Care Team (Late st Contact Info) Description 06/11/2024 12:45 EDT Office Visit [facility] Ophthalmology [facility] [address] [place] [address] Santiago Anthony MD 111 [facility], [address] [place] [address] 07/15/2024 10:[address] [facility] Cardiology Clinic [address] [place] [address] Gianfranco Flowers MD 130 [facility] [address] [place] [address] documented as of this encounter Visit Diagnoses Not on filedocumented in this encounter Care Teams Lens Cementer Relationship Specialty Start Date End Date Unknown, Provider, PCP - General 01/14/15 08/26/19 documented as of this encounter
--- OUTSIDE RECORDS SUMMARY | 2024-04-29 18:31 | XMS_ITS | Encounter Summary ---
Author Organization [facility] Address [address] [place] [address] Care Team Providers Care Sr. Merchandise Planner Name Role Phone Unknown, Provider Primary Care Provider Encounter Details Date Type Department Care Team (Late Contact Info) Description 10/15/2018 Historical Results Only [facility] Radiology Results [address] [place] [address] Radha Hendrickson, APRIL [address] [place] [phone] Social History Tobacco Use Types Packs/Day Years Used Date Smoking Tobacco: Never Assessed Sex and Gender Information Value Date Recorded Sex Assigned at Not on file Gender Identity Female 05/18/2021 10:23 EDT Sexual Orientation Not on file documented as of this encounter Plan of Treatment Upcoming Encounters Date Type Department Care Team (Late Contact Info) Description 06/11/2024 12:45 EDT Office Visit [facility] Ophthalmology [facility] [address] [place], [place] [address] Santiago Anthony MD 111 [facility], [facility] 5 [place] [address] 07/15/2024 10:45 EDT [facility] Clinic [address] [place] [address] Gianfranco Flowers MD 130 [facility] [address] [place] [address] documented as of this encounter Visit Diagnoses Not on filedocumented in this encounter Care Teams Sr. Merchandise Planner Relationship Specialty Start Date End Date Unknown, Provider, PCP - General 01/14/15 08/26/19 documented as of this encounter
--- OUTSIDE RECORDS SUMMARY | 2024-04-29 18:31 | XMS_ITS | Encounter Summary ---
Author Organization [facility] Address [address] [place] [address] Care Team Providers Care Equipment Lead Name Role Phone Unknown, Provider Primary Care Provider [phone] Encounter Details Date Type Department Care Team (Latest Contact Info) Description 09/13/2016 12:39 EST - 09/13/2016 23:59 EST Hospital Encounter [address] [address] Unknown, Provider, Discharge Disposition: Home or Self Care Social History Tobacco Use Types Packs/Day Years Used Date Smoking Tobacco: Never Assessed Sex and Gender Information Value Date Recorded Sex Assigned at Not on file Gender Identity Female 05/18/2021 10:23 EDT Sexual Orientation Not on file documented as of this encounter Discharge Disposition Disposition Code Departure Means Destination Home or Self [facility] documented in this encounter Plan of Treatment Upcoming Encounters Date Type Department Care Team (Late st Contact Info) Description 06/11/2024 12:45 EDT Office Visit [facility] [address] [place] [address] Santiago Anthony MD 111 [facility], [facility], Level [address] [place] [address] 07/15/2024 10:45 EDT Office Visit [facility] Cardiology Clinic [address] [place] [address] Gianfranco Flowers MD 130 [facility] [address] [place] [address] documented as of this encounter Visit Diagnoses Not on filedocumented in this encounter Care Teams Equipment Lead Relationship Specialty Start Date End Date Unknown, ProviderMD PCP - General 01/14/15 08/26/19 documented as of this encounter
--- OUTSIDE RECORDS SUMMARY | 2024-04-29 18:31 | XMS_ITS | Encounter Summary ---
Author Organization [facility] Address [address] [place] [address] Care Team Providers Care Auto Body Builder Apprentice Name Role Phone Unknown, Provider Primary Care Provider Encounter Details Date Type Department Care Team (Late st Contact Info) Description 04/27/2017 Historical Results Only [facility] - [address] [id number] Nivia Tinsley MD [address] [place] [phone] Social History Tobacco Use Types Packs/Day Years Used Date Smoking Tobacco: Never Assessed Sex and Gender Information Value Date Recorded Sex Assigned at Not on file Gender Identity Female 05/18/2021 10:23 EDT Sexual Orientation Not on file documented as of this encounter Plan of Treatment Upcoming Encounters Date Type Department Care Team (Late st Contact Info) Description 06/11/2024 12:45 EDT Office Visit [facility] Ophthalmology [facility] [address] [place] [address] Santiago Anthony MD 111 [facility] 5 [place] [address] 07/15/2024 10:45 EDT Office Visit [facility] Cardiology Clinic [address] [place] [phone] Gianfranco Flowers MD [address] [place] [address] [address] [place] [address] documented as of this encounter Procedures Procedure Name Priority Date/Time Associated Diagnosis Comments BACTERIAL CULTURE, URINE Routine 04/27/2017 15:41 EDT COMPLETE BLOOD COUNT WITH DIFFERENTIAL (AUTO) Routine 04/27/2017 15:30 EDT TSH Routine 04/27/2017 15:30 EDT documented in this encounter Results * BACTERIAL CULTURE, URINE (04/27/2017 15:41 EDT) [facility] USUAL UROGENITAL AVA [facility] UUV 04/29/2017 9:06 EDT [facility] CitrateConcentration 10,000-1 00,000 CFU/ML 04/29/2017 9:06 EDT [facility] 04/27/2017 15:4 1 EDT 04/27/2017 17:09 EDT Comment:VOID Nivia Tinsley MD MICROBIOLOGY - GENE RAL ORDERABLES [facility] * TSH (04/27/2017 15:30 EDT) [facility] THYROID STIM HORMONE [facility] 3.47 0.35 - 5.50 uIU/mL 04/27/2017 19:15 EDT [facility] 04/27/2017 15:3 0 EDT 04/27/2017 17:26 EDT Nivia Tinsley MD CHEMISTRY & BLOOD G ORDERABLES [facility] * (ABNORMAL) COMPLETE BLOOD COUNT WITH DIFFERENTIAL (AUTO) (04/27/2017 15:30 EDT) [facility] ABSOLUTE NEUTROPHIL COUN - [facility] 5.02 1.7 - 7.0 10e3/ul 04/27/2017 17:38 [facility] BASO # - [facility] 0.06 0.0 - 0.3 10e3/uL 04/27/2017 17:38 [facility] BASO % - [facility] 1 0 - 2 % 04/27/2017 17:38 [facility] EOS # - [facility] 0.51(H) 0.05 - 0.5 10e3/uL 04/27/2017 17:38 [facility] EOS % - [facility] 6(H) 0 - 5 % 04/27/2017 17:38 [facility] GRAN % - [facility] 60 40 - 80 % 04/27/2017 17:38 [facility] HEMATOCRIT - [facility] 41.1 34.0 - 47.0 % 04/27/2017 17:38 [facility] HEMOGLOBIN - [facility] 14.1 11.2 - 15.7 g/dl 04/27/2017 17:38 [facility] IG# - [facility] 0.02 0 - 0.07 10e3/uL 04/27/2017 17:38 [facility] IG% - [facility] 0.2 0 - 0.9 % 04/27/2017 17:38 [facility] LYMPH # - [facility] 2.00 0.9 - 2.9 10e3/uL 04/27/2017 17:38 [facility] LYMPH% - [facility] 24 20 - 40 % 04/27/2017 17:38 [facility] MEAN CORPUSCULAR HGB - [facility] 31.8 26 - 34 pg 04/27/2017 17:38 [facility] MEAN CORPUSCULAR HGB CONC - [facility] 34.3 31 - 36 g/dL 04/27/2017 17:38 [facility] MEAN CELL VOLUME - [facility] 92.6 77 - 100 fl 04/27/2017 17:38 [facility] MONO # - [facility] 0.76 0.3 - 0.9 10e3/uL 04/27/2017 17:38 [facility] MONO% - [facility] 9 0 - 12 % 04/27/2017 17:38 EDT [facility] PLATELET COUNT 264 150 - 400 10e3/ul 04/27/2017 17:38 EDT [facility] RED BLOOD COUNT - [facility] 4.44 3.8 - 5.2 10e6/ul 04/27/2017 17:38 T [facility] RED CELL DISTRI WIDTH - [facility] 13.5 11.8 - 15.6 % 04/27/2017 17:38 EDT [facility] WHITE BLOOD COUNT - [facility] 8.4 3.5 - 10.5 10e3/ul 04/27/2017 17:38 [facility] 04/27/2017 15:3 0 EDT 04/27/2017 17:26 EDT Nivia Tinsley MD HEMATOLOGY & PF4 OR DERABLES [facility] documented in this encounter Visit Diagnoses Not on filedocumented in this encounter Care Teams Auto Body Builder Apprentice Relationship Specialty Start Date End Date Unknown, Provider, PCP - General 01/14/15 08/26/19 documented as of this encounter
--- OUTSIDE RECORDS SUMMARY | 2024-04-29 18:31 | XMS_ITS | Encounter Summary ---
Author Organization [facility] Address [address] [place] [address] Care Team Providers Care Oil Process Stillman Name Role Phone Unknown, Provider Primary Care Provider Encounter Details Date Type Department Care Team (Late Contact Info) Description 10/12/2017 Historical Results Only [facility] Radiology Results [address] [place], [place] [address] Nivia Tinsley MD [address] [place] [phone] Social History Tobacco Use Types Packs/Day Years Used Date Smoking Tobacco: Never Assessed Sex and Gender Information Value Date Recorded Sex Assigned at Not on file Gender Identity Female 05/18/2021 10:23 EDT Sexual Orientation Not on file documented as of this encounter Plan of Treatment Upcoming Encounters Date Type Department Care Team (Late Contact Info) Description 06/11/2024 12:45 EDT Office Visit [facility] Ophthalmology [facility] [address] [place] [address] Santiago Anthony MD 111 [facility] 5 [place] [address] 07/15/2024 10:45 EDT Office Visit [facility] Cardiology Clinic [address] [place], [place] [address] Gianfranco Flowers MD [address] [place] [phone] documented as of this encounter Procedures Procedure Name Priority Date/Time Associated Diagnosis Comments DXA BONE DENSITY 10/12/2017 13:2 2 EST documented in this encounter Results * XR DEXA BONE DENSITY (10/12/2017 13:22 EST) Anatomical Region Laterality Modality Wrist, Hip, L-spine Other 10/12/2017 13:2 2 EST Narrative 10/15/2017 9:19 EST ? EXAM: RADIOLOGY/DXA SCAN/BONE DENSITY ? EX. D/ (1322) ? CLINICAL INFORMATION: ? Z78.0 POSTMENOPAUSAL ? Indication: postmenopausal; screening for osteoporosis; ? Accession number: [id number] ? Clinical Information Provided by Patient: ? [...] CC: ? Transcribed Date/Time: 10/15/2017 (0919) ? Regional Psychiatric Director: OFELIA ? Printed Date/Time: 03/19/2019 (0833) ? PAGE 2 ? Signed Report ? Procedure Note Jameson Calderon MD - 08/06/2019 EXAM: RADIOLOGY/DXA SCAN/BONE DENSITY EX. D/ (1322) CLINICAL INFORMATION: Z78.0 POSTMENOPAUSAL Indication: postmenopausal; screening for osteoporosis; Accession number: [id number] Clinical Information Provided by Patient: Has used [...] Jameson Calderon MD CC: Transcribed Date/Time: 10/15/2017 (0919) Regional Psychiatric Director: OFELIA Printed Date/Time: 03/19/2019 (0825) PAGE 2 Signed Report Nivia Tinsley MD IMG DEXA ORDERABLES documented in this encounter Visit Diagnoses Not on filedocumented in this encounter Care Teams Oil Process Stillman Relationship Specialty Start Date End Date Unknown, Provider, PCP - General 01/14/15 08/26/19 documented as of this encounter
--- OUTSIDE RECORDS SUMMARY | 2024-04-29 18:31 | XMS_ITS | Encounter Summary ---
Author Organization [facility] Address [address] [place] [address] Care Team Providers Care Claims Technician Name Role Phone Unknown, Provider Primary Care Provider [phone] Encounter Details Date Type Department Care Team (Late Contact Info) Description 09/03/2018 Historical Results Only [facility] Radiology Results [address] [place] [address] Josemanuel Mckeon MD [address] [address] Social History Tobacco Use Types Packs/Day Years Used Date Smoking Tobacco: Never Assessed Sex and Gender Information Value Date Recorded Sex Assigned at Not on file Gender Identity Female 05/18/2021 10:23 EDT Sexual Orientation Not on file documented as of this encounter Plan of Treatment Upcoming Encounters Date Type Department Care Team (Late st Contact Info) Description 06/11/2024 12:45 EDT Office Visit [facility] Ophthalmology [facility] [address] [place], [place] [address] Santiago Anthony MD 111 [facility], [facility] 5 [place] [address] 07/15/2024 10:45 EDT Office Visit [facility] Cardiology Clinic [address] [place] [address] Gianfranco Flowers MD 130 [facility] [address] [place] [address] documented as of this encounter Visit Diagnoses Not on filedocumented in this encounter Care Teams Claims Technician Relationship Specialty Start Date End Date Unknown, Provider, PCP - General 01/14/15 08/26/19 documented as of this encounter
--- OUTSIDE RECORDS SUMMARY | 2024-04-29 18:31 | XMS_ITS | Encounter Summary ---
Author Organization [facility] Address [address] [place] [address] Care Team Providers Care Engineer Of System Development Name Role Phone Unknown, Provider Primary Care Provider [phone] Encounter Details Date Type Department Care Team (Latest Contact Info) Description 09/03/2018 11:49 EST - 09/03/2018 23:59 EST Hospital Encounter [facility] [address] [place] [address] Unknown, Provider, Discharge Disposition: Home or Self [...] Code Departure Means Destination Home or Self [facility] documented in this encounter Plan of Treatment Upcoming Encounters Date Type Department Care Team (Late st Contact Info) Description 06/11/2024 12:45 EDT Office Visit [facility] Ophthalmology [facility] [address] [place] [address] Santiago Anthony MD 111 [facility], [address] [place] [address] 07/15/2024 10:45 EDT Office Visit [facility] Cardiology Clinic [address] [place] [address] Gianfranco Flowers MD 130 [facility] [address] [place] [address] documented as of this encounter Visit Diagnoses Not on filedocumented in this encounter Care Teams Engineer Of System Development Relationship Specialty Start Date End Date Unknown, Provider, PCP - General 01/14/15 08/26/19 documented as of this encounter
--- OUTSIDE RECORDS SUMMARY | 2024-04-29 18:31 | XMS_ITS | Encounter Summary ---
Author Organization [facility] Address [address] [place] [address] Care Team Providers Care Security Police Name Role Phone Unknown, Provider Primary Care Provider Encounter Details Date Type Department Care Team (Late st Contact Info) Description 01/29/2017 Historical Results Only [facility] - [address] [id number] Nivia Tinsley MD [address] [place] [address] [phone] Social History Tobacco Use Types Packs/Day Years Used Date Smoking Tobacco: Never Assessed Sex and Gender Information Value Date Recorded Sex Assigned at Not on file Gender Identity Female 05/18/2021 10:23 EDT Sexual Orientation Not on file documented as of this encounter Plan of Treatment Upcoming Encounters Date Type Department Care Team (Late st Contact Info) Description 06/11/2024 12:45 EDT Office Visit [facility] [address] [place] [address] Santiago Anthony MD 111 [facility] 5 [place] [address] 07/15/2024 10:45 EDT Office Visit [facility] Cardiology Clinic [address] [place] [address] [id number] Gianfranco Flowers MD [address] [facility] [address] [place] [address] documented as of this encounter Procedures Procedure Name Priority Date/Time Associated Diagnosis Comments VIT D, 25-HYDROXY - [facility] Routine 01/29/2017 9:55 EDT documented in this encounter Results * VIT D, 25-HYDROXY - [facility] (01/29/2017 9:55 EDT) VIT D, 25 HYDROXY - [facility] 35 30 - 100 ng/ml 01/29/2017 14:57 EDT [facility] Comment: ? 25-Hydroxy D Total (D2+D3) ?Expected Values Deficient: ?<10 ng/ml Insufficient: ? 10-29 ng/ml Sufficient: ? 30-100 ng/ml Potential intoxication: >100 ng/ml 01/29/2017 9:55 EDT 01/29/2017 14:02 EDT Nivia Tinsley MD CHEMISTRY & BLOOD G ORDERABLES [facility] documented in this encounter Visit Diagnoses Not on filedocumented in this encounter Care Teams Security Police Relationship Specialty Start Date End Date Unknown, Provider, PCP - General 01/14/15 08/26/19 documented as of this encounter
--- OUTSIDE RECORDS SUMMARY | 2024-04-29 18:31 | XMS_ITS | Encounter Summary ---
Author Organization [facility] Address [address] [place] [address] Care Team Providers Care Pewter Fabricator Name Role Phone Unknown, Provider Primary Care Provider Encounter Details Date Type Department Care Team (Late Contact Info) Description 09/04/2018 Historical Results Only [facility] Radiology Results [address] [place] [address] Josemanuel Mckeon MD [address] [address] Social History Tobacco Use Types Packs/Day Years Used Date Smoking Tobacco: Never Assessed Sex and Gender Information Value Date Recorded Sex Assigned at Not on file Gender Identity Female 05/18/2021 10:23 EDT Sexual Orientation Not on file documented as of this encounter Plan of Treatment Upcoming Encounters Date Type Department Care Team (Late Contact Info) Description 06/11/2024 12:45 EDT Office Visit [facility] Ophthalmology [facility] [address] [place], [place] [phone] Santiago Anthony MD 111 [facility], [facility] [address] [place] [address] 07/15/2024 10:45 EDT Office Visit [facility] Cardiology Clinic [address] [place] [address] Gianfranco Flowers MD [address] [place] [address] [address] [place] [phone] documented as of this encounter Procedures Procedure Name Priority Date/Time Associated Diagnosis Comments XR WRIST LEFT 3 OR MORE VIEWS 09/04/2018 8:06 EST documented in this encounter Results * XR WRIST LEFT 3 OR MORE VIEWS (09/04/2018 8:06 EST) Anatomical Region Laterality Modality Upper Extremities Left Other 09/04/2018 8:06 EST Narrative 09/04/2018 8:09 EST ? EXAM: RADIOLOGY/WRIST LEFT 3 + VIEWS ?EX. D/ (1612) ? CLINICAL INFORMATION: ? M25.539, WRIST PAIN. ? WRIST LEFT 3 + VIEWS ? Signs and Symptoms/Comments: ??M25.539, WRIST PAIN. ? Comparison: None ? FINDINGS: ? Left wrist: 3 views were performed. A small ossific density along the ? dorsal aspect of the proximal wrist on the lateral view appears ? well-corticated, likely an old avulsion fracture. No definite acute ? fracture or malalignment is visible. Mild-moderate degenerative ? changes are scattered throughout the wrist. Mild soft tissue swelling ? is present, with potentially more focal soft tissue swelling along ? the radial/volar aspect of the wrist. ? IMPRESSION: ? 1. ??Mild-moderate wrist arthrosis. ? 2. ??Suspect old avulsion fracture along the dorsal wrist. No acute ? fracture visible. ? 3. ??Soft tissue swelling, with potentially more focal soft tissue ? swelling along the radial/volar aspect of the wrist. MR may be ? performed for further evaluation if desired. ? REPORT SIGNED IN OTHER VENDOR SYSTEM 09/04/2018 ?Reported By: Jameson Calderon MD ? CC: ? Transcribed Date/Time: 09/04/2018 (0809) ? Shredded Filler Cigar Maker Machine: ? Printed Date/Time: 03/23/2019 (0950) ? PAGE 1 ? Signed Report ? Procedure Note Jameson Calderon MD - 08/07/2019 EXAM: RADIOLOGY/WRIST LEFT 3 + VIEWS EX. D/ (1612) CLINICAL INFORMATION: M25.539, WRIST PAIN. WRIST LEFT 3 + VIEWS Signs and Symptoms/Comments: M25.539, WRIST PAIN. Comparison: None FINDINGS: Left wrist: 3 views were performed. A small ossific density alongthe dorsal aspect of the proximal wrist on the lateral view appears well-corticated, likely an old avulsion fracture. No definite acute fracture or malalignment is visible. Mild-moderate degenerative changes are scattered throughout the wrist. Mild soft tissueswelling is present, with potentially more focal soft tissue swelling along the radial/volar aspect of the wrist. IMPRESSION: 1. Mild-moderate wrist arthrosis. 2. Suspect old avulsion fracture along the dorsal wrist. No acute fracture visible. 3. Soft tissue swelling, with potentially more focal soft tissue swelling along the radial/volar aspect of the wrist. MR may be performed for further evaluation if desired. REPORT SIGNED IN OTHER VENDOR SYSTEM 09/04/2018 Reported By: Jameson Calderon MD CC: Transcribed Date/Time: 09/04/2018 (0809) Shredded Filler Cigar Maker Machine: Printed Date/Time: 03/23/2019 (1006) PAGE 1 Signed Report Josemanuel Mckeon MD IMG DIAGN OSTIC IMAGING ORDERABLES documented in this encounter Visit Diagnoses Not on filedocumented in this encounter Care Teams Pewter Fabricator Relationship Specialty Start Date End Date Unknown, Provider, PCP - General 01/14/15 08/26/19 documented as of this encounter
--- OUTSIDE RECORDS SUMMARY | 2024-04-29 18:31 | XMS_ITS | Encounter Summary ---
Author Organization [facility] Address [address] [place] [address] Care Team Providers Care Heating Equipment Repairer Name Role Phone Unknown, Provider Primary Care Provider Encounter Details Date Type Department Care Team (Late Contact Info) Description 01/23/2018 Historical Results Only [facility] Radiology Results [address] [place], [place] [address] Nivia Tinsley MD [address] [place] [address] [phone] Social History Tobacco Use Types Packs/Day Years Used Date Smoking Tobacco: Never Assessed Sex and Gender Information Value Date Recorded Sex Assigned at Not on file Gender Identity Female 05/18/2021 10:23 EDT Sexual Orientation Not on file documented as of this encounter Plan of Treatment Upcoming Encounters Date Type Department Care Team (Late Contact Info) Description 06/11/2024 12:45 EDT Office Visit [facility] Ophthalmology [facility] [address] [place] [address] Santiago Anthony MD 111 [facility] 5 [place] [address] 07/15/2024 10:45 EDT Office Visit [facility] Cardiology Clinic [address] [place], [place] [address] Gianfranco Flowers MD [address] [place] [address] [address] [place] [address] documented as of this encounter Procedures Procedure Name Priority Date/Time Associated Diagnosis Comments XR CHEST 2 VIEWS 01/23/2018 10:5 6 EDT documented in this encounter Results * XR CHEST 2 VIEWS (01/23/2018 10:56 EDT) Anatomical Region Laterality Modality Other 01/23/2018 10:5 6 EDT Narrative 01/23/2018 10:59 EDT ? EXAM: RADIOLOGY/CHEST (PA ?? LAT) ?EX. D/ (0954) ? CLINICAL INFORMATION: ? J06.9 URI W/COUGH ?? CONGESTION ? R/O PNA ? CHEST (PA ?? LAT) ? Signs and Symptoms/Comments: ??J06.9 URI W/COUGH ?? CONGESTION, R/O PNA ? Comparisons: 01/08/2015 ? FINDINGS: ? PA and lateral views of the chest were performed. The lungs are ? clear. No pneumothorax or pleural effusion is present. The aorta is ? tortuous. The cardiomediastinal silhouette and pulmonary vascularity ? are otherwise unremarkable. Advanced multilevel thoracic degenerative ? changes are present. ? IMPRESSION: ? No acute cardiopulmonary process. ? REPORT SIGNED IN OTHER VENDOR SYSTEM 01/23/2018 ?Reported By: Jameson Calderon MD ? CC: ? Transcribed Date/Time: 01/23/2018 (1059) ? Playground Worker: ? Printed Date/Time: 03/20/2019 (2973) ? PAGE 1 ? Signed Report ? Procedure Note Jameson Calderon MD - 08/06/2019 EXAM: RADIOLOGY/CHEST (PA LAT) EX. D/ (0954) CLINICAL INFORMATION: J06.9 URI W/COUGH CONGESTION R/O PNA CHEST (PA LAT) Signs and Symptoms/Comments: J06.9 URI W/COUGH CONGESTION, R/OPNA Comparisons: 01/08/2015 FINDINGS: PA and lateral views of the chest were performed. The lungs are clear. No pneumothorax or pleural effusion is present. The aorta is tortuous. The cardiomediastinal silhouette and pulmonaryvascularity are otherwise unremarkable. Advanced multilevel thoracicdegenerative changes are present. IMPRESSION: No acute cardiopulmonary process. REPORT SIGNED IN OTHER VENDOR SYSTEM 01/23/2018 Reported By: Jameson Calderon MD CC: Transcribed Date/Time: 01/23/2018 (1059) Playground Worker: Printed Date/Time: 03/20/2019 (8802) PAGE 1 Signed Report Nivia Tinsley MD IMG DIAGNOSTIC IMAG ING ORDERABLES documented in this encounter Visit Diagnoses Not on filedocumented in this encounter Care Teams Heating Equipment Repairer Relationship Specialty Start Date End Date Unknown, Provider, PCP - General 01/14/15 08/26/19 documented as of this encounter
--- OUTSIDE RECORDS SUMMARY | 2024-04-29 18:32 | XMS_ITS | Encounter Summary ---
Author Organization [facility] Address [address] [place] [address] Care Team Providers Care Lens Mounter Name Role Phone Unavailable Primary Care Provider Unavailabl e Encounter Details Date Type Department Care Team (Latest Contact Info) Description 01/08/2015 8:52 EDT - 01/08/2015 23:59 EDT Hospital Encounter [address] [address] Unknown, Provider, Discharge Disposition: Home or Self Care Social History Tobacco Use Types Packs/Day Years Used Date Smoking Tobacco: Never Assessed Sex and Gender Information Value Date Recorded Sex Assigned at Not on file Gender Identity Female 05/18/2021 10:23 EDT Sexual Orientation Not on file documented as of this encounter Discharge Disposition Disposition Code Departure Means Destination Home or Self Skilled Nursing documented in this encounter Plan of Treatment Upcoming Encounters Date Type Department Care Team (Late st Contact Info) Description 06/11/2024 12:45 EDT Office Visit [facility] [address] [place] [address] Santiago Anthony MD [address] [facility], [facility] 5 [place] [address] 07/15/2024 10:45 EDT Office Visit [facility] Cardiology Clinic [address] [place] [address] Gianfranco Flowers MD [address] [place] [address] [address] [place] [address] documented as of this encounter Visit Diagnoses Not on filedocumented in this encounter
--- OUTSIDE RECORDS SUMMARY | 2024-04-29 18:32 | XMS_ITS | Encounter Summary ---
Author Organization [facility] Address [address] [place] [address] Care Team Providers Care Detective Bureau Chief Name Role Phone Unknown, Provider Primary Care Provider [phone] Encounter Details Date Type Department Care Team (Late Contact Info) Description 01/08/2015 Historical Results Only [facility] Radiology Results [address] [place] [address] Nirmal Sherman MD [address] [place] [address] [phone] Social History Tobacco Use Types Packs/Day Years [...] Office Visit [facility] Ophthal[facility] [address] [place] [address] Santiago Anthony MD [address] [facility], [facility], [facility] [address] [place] [address] 07/15/2024 10:45 EDT Office Visit [facility] Cardiology Clinic [address] [place] [address] Gianfranco Flowers MD 130 [facility] [address] [place] [address] documented as of this encounter Procedures Procedure Name Priority Date/Time Associated Diagnosis Comments MR HEAD W WO CONTRAST 01/08/2015 15:[address] HEAD WO CONTRAST 01/08/2015 1 2:44 EDT XR CHEST 1 VIEW 01/08/2015 12:09 EDT documented in this encounter Results * MR HEAD W WO CONTRAST (01/08/2015 15:22 EDT) Anatomical Region Laterality Modality Head Other 01/08/2015 15:2 2 EDT Narrative 01/08/2015 15:32 EDT ? EXAM: MAGNETIC RESONANCE IMAGING/BRAIN W/ EX. D/ (1519) ? CLINICAL INFORMATION: ? Exam: Brain MRI without contrast. ? Indication: Headache. ? Technique: Multiplanar multisequence unenhanced MR imaging of the ? brain was obtained. ? Comparison: MRI brain 02/06/[address] brain 02/07/2015. ? Findings: The heterogeneous low T2 signal material in the right ? superior parietal region/posterior frontal region is again noted. ? This material measures up to 19 x 17 mm in diameter, which is ? unchanged. Adjacent parenchymal high T2 signal is noted and on ? postcontrast imaging, extensive adjacent linear vascular enhancing ? structures are noted, several of which appear to communicate with the ? deep venous system. No evidence of cerebral herniation is seen. No ? abnormal intra-or extra-axial fluid collections are noted. No acute ? infarct is detected on diffusion-weighted imaging. Pronounced global ? volume loss is noted. Very extensive high T2 signal supratentorial ? white matter foci are seen. ? Impression: ? 1. No acute infarct is detected. ? 2. Stable appearance of the right high parietal/posterior frontal ? 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 ? 3. Cerebral global volume loss and patchy white matter disease. This ? is similar to the prior study. This appearance is nonspecific, though ? most commonly reflects small vessel schema disease of aging. ? REPORT SIGNED IN OTHER VENDOR SYSTEM 01/08/2015 ?Reported By: Parvez Olivier MD ? CC: ? Transcribed Date/Time: 01/08/2015 (1532) ? Police Inspector: ? Printed Date/Time: 03/04/2019 (0838) ? PAGE 1 ? Signed Report ? Procedure Note Parvez Olivier MD - 08/05/2019 EXAM: MAGNETIC RESONANCE IMAGING/BRAIN W/ EX. D/ (1519) CLINICAL INFORMATION: Exam: Brain MRI without contrast. Indication: Headache. Technique: Multiplanar multisequence unenhanced MR imaging of the brain was obtained. Comparison: MRI brain 02/06/[address] brain 02/07/2015. Findings: The heterogeneous low T2 signal material in the right superior parietal region/posterior frontal region is again noted. This material measures up to 19 x 17 mm in diameter, which is unchanged. Adjacent parenchymal high T2 signal is noted and on postcontrast imaging, extensive adjacent linear vascular enhancing structures are noted, several of which appear to communicate withthe deep venous system. No evidence of cerebral herniation is seen. No abnormal intra-or extra-axial fluid collections are noted. No acute infarct is detected on diffusion-weighted imaging. Pronouncedglobal volume loss is noted. Very extensive high T2 signal supratentorial white matter foci are seen. Impression: 1. No acute infarct is detected. 2. 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 3. Cerebral global volume loss and patchy white matter disease.This is similar to the prior study. This appearance is nonspecific,though most commonly reflects small vessel schema disease of aging. REPORT SIGNED IN OTHER VENDOR SYSTEM 01/08/2015 Reported By: Parvez Olivier MD CC: Transcribed Date/Time: 01/08/2015 (1532) Police Inspector: Printed Date/Time: 03/04/2019 (6591) PAGE 1 Signed Report Nirmal Sherman MD IMG MRI ORDERABLES * CT HEAD WO CONTRAST (01/08/2015 12:44 EDT) Anatomical Region Laterality Modality Head Other 01/08/2015 12:4 4 EDT Narrative 01/08/2015 12:50 EDT ? EXAM: CAT SCAN/HEAD WITHOUT CONTRAST ?EX. D/ (1237) ? CLINICAL INFORMATION: ? L ARM WEAKNESS ? INDICATION: Left-sided weakness. ? TECHNIQUE: Axial unenhanced CT imaging of the brain was obtained. ? COMPARISON: None. ? FINDINGS: There is a coarse parenchymal 1 cm calcification in the ? high right parietal area with adjacent hyperdense parenchymal ? changes. There appear to be vascular structures emanating from this ? region in a linear fashion. The cortical ribbon appears grossly ? intact along the convexities. The deep wallace nuclei are symmetric. No ? abnormal intra-articular axial fluid collections are seen. No ? evidence of cerebral herniation is detected. No abnormal mass effect ? is observed. The paranasal sinuses are clear. The mastoid air cells ? are clear. The orbits are unremarkable. There is advanced global ? volume loss. Patchy low attenuation white matter changes are seen ? within the centrum semiovale. ? IMPRESSION: ? 1. No acute intracranial abnormality detected. ? 2. Advanced volume loss and extensive patchy white matter disease. ? This pattern of white matter disease is nonspecific though most ? commonly reflects small vessel ischemic disease of aging. ? 3. High right parietal parenchymal calcification with adjacent linear ? hyperdense structures, possibly vascular. 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 A similar finding was described on ? the 05/21/[address], though the images have been purged, and thus I ? and unable to perform a direct comparison. ? REPORT SIGNED IN OTHER VENDOR SYSTEM 01/08/2015 ?Reported By: Parvez Olivier MD ? CC: ? Transcribed Date/Time: 01/08/2015 (1250) ? Police Inspector: ? Printed Date/Time: 03/04/2019 (0838) ? PAGE 1 ? Signed Report ? Procedure Note Parvez Olivier MD - 08/05/2019 EXAM: CAT SCAN/HEAD WITHOUT CONTRAST EX. D/ (1237) CLINICAL INFORMATION: L ARM WEAKNESS INDICATION: Left-sided weakness. TECHNIQUE: Axial unenhanced CT imaging of the brain was obtained. COMPARISON: None. FINDINGS: There is a coarse parenchymal 1 cm calcification in the high right parietal area with adjacent hyperdense parenchymal changes. There appear to be vascular structures emanating from this region in a linear fashion. The cortical ribbon appears grossly intact along the convexities. The deep wallace nuclei are symmetric.No abnormal intra-articular axial fluid collections are seen. No evidence of cerebral herniation is detected. No abnormal masseffect is observed. The paranasal sinuses are clear. The mastoid air cells are clear. The orbits are unremarkable. There is advanced global volume loss. Patchy low attenuation white matter changes are seen within the centrum semiovale. IMPRESSION: 1. No acute intracranial abnormality detected. 2. Advanced volume loss and extensive patchy white matter disease. This pattern of white matter disease is nonspecific though most commonly reflects small vessel ischemic disease of aging. 3. High right parietal parenchymal calcification with adjacentlinear hyperdense structures, possibly vascular. 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 A similar finding was describedon the 05/21/[address], though the images have been purged, and thusI and unable to perform a direct comparison. REPORT SIGNED IN OTHER VENDOR SYSTEM 01/08/2015 Reported By: Parvez Olivier MD CC: Transcribed Date/Time: 01/08/2015 (1250) Police Inspector: Printed Date/Time: 03/04/2019 (0838) PAGE 1 Signed Report Nirmal Sherman MD IMG CT ORDERABLES * XR CHEST 1 VIEW (01/08/2015 12:09 EDT) Anatomical Region Laterality Modality Other 01/08/2015 12:0 9 EDT Narrative 01/08/2015 12:13 EDT ? EXAM: RADIOLOGY/CHEST-PORTABLE ?EX. D/ (1204) ? CLINICAL INFORMATION: ? L ARM WEAKNESS ? Indication: Left arm weakness. ? Comparison: None. ? Technique: AP portable view. ? Findings: The cardiomediastinal silhouette and pulmonary vasculature ? are within normal limits. The lungs are clear. No pleural effusion or ? pneumothorax is seen. ? Impression: No acute process. ? REPORT SIGNED IN OTHER VENDOR SYSTEM 01/08/2015 ?Reported By: Baldev Pastrana MD ? CC: ? Transcribed Date/Time: 01/08/2015 (1213) ? Police Inspector: ? Printed Date/Time: 03/04/2019 (0026) ? PAGE 1 ? Signed Report ? Procedure Note Baldev Pastrana MD - 08/05/2019 EXAM: RADIOLOGY/CHEST-PORTABLE EX. D/ (1204) CLINICAL INFORMATION: L ARM WEAKNESS Indication: Left arm weakness. Comparison: None. Technique: AP portable view. Findings: The cardiomediastinal silhouette and pulmonaryvasculature are within normal limits. The lungs are clear. No pleural effusionor pneumothorax is seen. Impression: No acute process. REPORT SIGNED IN OTHER VENDOR SYSTEM 01/08/2015 Reported By: Baldev Pastrana MD CC: Transcribed Date/Time: 01/08/2015 (1213) Police Inspector: Printed Date/Time: 03/04/2019 (8743) PAGE 1 Signed Report Nirmal Sherman MD IMG DIAGNOSTIC IMAGI NG ORDERABLES documented in this encounter Visit Diagnoses Not on filedocumented in this encounter Care Teams Detective Bureau Chief Relationship Specialty Start Date End Date Unknown, Provider, PCP - General 01/14/15 08/26/19 documented as of this encounter
--- OUTSIDE RECORDS SUMMARY | 2024-04-29 18:32 | XMS_ITS | Encounter Summary ---
Author Organization [facility] Address [address] [place] [address] Care Team Providers Care Mold Insert Changer Name Role Phone Unknown, Provider Primary Care Provider [phone] Encounter Details Date Type Department Care Team (Latest Contact Info) Description 06/23/2015 13:34 EDT - 06/23/2015 23:59 EDT Hospital Encounter [address] [address] Unknown, Provider, Discharge Disposition: Home or Self Care Social History Tobacco Use Types Packs/Day Years Used Date Smoking Tobacco: Never Assessed Sex and Gender Information Value Date Recorded Sex Assigned at Not on file Gender Identity Female 05/18/2021 10:23 EDT Sexual Orientation Not on file documented as of this encounter Discharge Disposition Disposition Code Departure Means Destination Home or Self Mcfp documented in this encounter Plan of Treatment Upcoming Encounters Date Type Department Care Team (Late st Contact Info) Description 06/11/2024 12:45 EDT Office Visit [facility] [address] [place] [address] Santiago Anthony MD 111 [facility], [facility], Level [address] [place] [address] 07/15/2024 10:45 EDT Office Visit [facility] Cardiology Clinic [address] [place], [place] [address] Gianfranco Flowers MD 130 [facility] [address] [place] [address] documented as of this encounter Visit Diagnoses Not on filedocumented in this encounter Care Teams Mold Insert Changer Relationship Specialty Start Date End Date Unknown, Provider, PCP - General 01/14/15 08/26/19 documented as of this encounter
--- OUTSIDE RECORDS SUMMARY | 2024-04-29 18:32 | XMS_ITS | Encounter Summary ---
Author Organization [facility] Address [address] [place] [address] Care Team Providers Care Embosser Apprentice Name Role Phone Unknown, Provider Primary Care Provider [phone] Encounter Details Date Type Department Care Team (Late st Contact Info) Description 06/23/2015 Historical Results Only [facility] Radiology Results [address] [place] [address] Charito Cabrera MD Social History Tobacco Use Types Packs/Day Years Used Date Smoking Tobacco: Never Assessed Sex and Gender Information Value Date Recorded Sex Assigned at Not on file Gender Identity Female 05/18/2021 10:23 EDT Sexual Orientation Not on file documented as of this encounter Plan of Treatment Upcoming Encounters Date Type Department Care Team (Late st Contact Info) Description 06/11/2024 12:45 EDT Office Visit [facility] Ophthalmology [facility] [address] [place], [place] [id number] Santiago Anthony MD [address] [facility], [facility] [address] [place] [address] 07/15/2024 10:45 EDT Office Visit [facility] Cardiology Clinic [address] [place], [place] [phone] Gianfranco Flowers MD [address] [facility] [address] [place] [address] documented as of this encounter Procedures Procedure Name Priority Date/Time Associated Diagnosis Comments DXA BONE DENSITY 06/23/2015 15:3 4 EDT documented in this encounter Results * XR DEXA BONE DENSITY (06/23/2015 15:34 EDT) Anatomical Region Laterality Modality Wrist, Hip, L-spine Other 06/23/2015 15:3 4 EDT Narrative 06/25/2015 9:55 EDT ? EXAM: RADIOLOGY/DXA SCAN/BONE DENSITY ? EX. D/ (1534) ? CLINICAL INFORMATION: ? POST MENOPAUSAL ? Indication: postmenopausal; screening for osteoporosis; ? Accession number: [id number] ? Clinical Information Provided by Patient: ? Has used the following medications: HRT (i.e. estrogen/hormone ? therapy), Vitamin D ? Patient maximum height was 65.5 ? No regular weight bearing exercise ? Drinks caffeinated beverages ? Onset of menses at age 10 ? Number of children 2 ? Bone Density: Exam date 06/23/2015 ? Region ?BMD ? . ? (g/cm2) ?? T-score ?? Z-score ?? Classification ? AP Spine(L1-L4) ?1.202 ?1.4 ? 3.9 ? Normal ? Femoral Neck(Left) ? 0.770 ? -0.7 ? 1.5 ? Normal ? Total Hip(Left) ?0.985 ?0.4 ? 2.3 ? Normal ? World Health Organization criteria [...] Baseline vs Prev ? AP Spine (L1-L4) 06/23/2015 ?? 77 ?1.202 ?1.4 ? 0.132 ?0.132 ? . ?(12.4%)# ?? (12.4%)# ? . ?10/12/2008 ?? 68 ?1.070 ?0.2 ? Total Hip(Left) ??06/23/2015 ?? 77 ?0.985 ?0.4 ?-0.038 ? - 0.038 ? . ?(-3.7%)# ?? (-3.7%)# ? . ?10/12/2008 ?? 70 ?1.023 ?0.7 ? *Denotes significance at 95% confidence level, LSC for AP Spine = ? 0.022 g/cm2, ??LSC for Total Hip = 0.027 g/cm2 ? # Denotes dissimilar scan types or analysis methods ? Impression: The patient has normal bone mass. No significant bone loss ? was observed. ? Discussion: BONE DENSITY IS ABOVE THE MINIMUM DESIRABLE LEVEL AT ALL ? PAGE 1 ? Signed Report ? (CONTINUED) ? SKELETAL SITES TESTED. This patient's bone mineral density is above ? the minimum desirable level (T-score -1.0 or better) at all sites ? measured. The patient should follow a healthful lifestyle (good ? nutrition with adequate calcium and vitamin D, and appropriate ? weight-bearing exercise). ? Follow-Up: Consider repeating this study in 5 years or sooner if there ? is some new clinical indication. ? AMD:kad ?Reported By: Idris Kitchen MD ? CC: ? Transcribed Date/Time: 06/25/2015 (0955) ? Soap Chipper: OFELIA ? Printed Date/Time: 03/11/2019 (0900) ? PAGE 2 ? Signed Report ? Procedure Note Idris Kitchen MD - 08/05/2019 EXAM: RADIOLOGY/DXA SCAN/BONE DENSITY EX. D/ (1534) CLINICAL INFORMATION: POST MENOPAUSAL Indication: postmenopausal; screening for osteoporosis; Accession number: [id number] Clinical Information Provided by Patient: Has used the following medications: HRT (i.e. estrogen/hormone therapy), Vitamin D Patient maximum height was 65.5 No regular weight bearing exercise Drinks caffeinated beverages Onset of menses at age 10 Number of children 2 Bone Density: Exam date 06/23/2015 Region BMD . (g/cm2) T-score Z-scoreClassification AP Spine(L1-L4) 1.202 1.4 3.9 Normal Femoral Neck(Left) 0.770 -0.7 1.5 Normal Total Hip(Left) 0.985 0.4 2.3 Normal World Health Organization criteria for BMD [...] . vs Baseline vsPrev AP Spine (L1-L4) 06/23/2015 75 1.202 1.4 0.1320.132 . (12.4%)#(12.4%)# . 10/12/2008 68 1.070 0.2 Total Hip(Left) 06/23/2015 75 0.985 0.4 -0.038-0.038 . (-3.7%)#(-3.7%)# . 10/12/2008 68 1.023 0.7 *Denotes significance at 95% confidence level, LSC for AP Spine = 0.022 g/cm2, LSC for Total Hip = 0.027 g/cm2 # Denotes dissimilar scan types or analysis methods Impression: The patient has normal bone mass. No significant boneloss was observed. Discussion: BONE DENSITY IS ABOVE THE MINIMUM DESIRABLE LEVEL ATALL PAGE 1 Signed Report (CONTINUED) SKELETAL SITES TESTED. This patient's bone mineral density is above the minimum desirable level (T-score -1.0 or better) at all sites measured. The patient should follow a healthful lifestyle (good nutrition with adequate calcium and vitamin D, and appropriate weight-bearing exercise). Follow-Up: Consider repeating this study in 5 years or sooner ifthere is some new clinical indication. AMD:[email or web address] Reported By: Idris Kitchen MD CC: Transcribed Date/Time: 06/25/2015 (0955) Soap Chipper: OFELIA Printed Date/Time: 03/11/2019 (7900) PAGE 2 Signed Report Charito Cabrera MD IMG DEXA ORDERABLES documented in this encounter Visit Diagnoses Not on filedocumented in this encounter Care Teams Embosser Apprentice Relationship Specialty Start Date End Date Unknown, Provider, PCP - General 01/14/15 08/26/19 documented as of this encounter
--- OUTSIDE RECORDS SUMMARY | 2024-04-29 18:32 | XMS_ITS | Encounter Summary ---
Author Organization [facility] Address [address] [place] [address] Care Team Providers Care Skein Bander Name Role Phone Unknown, Provider Primary Care Provider Encounter Details Date Type Department Care Team (Late st Contact Info) Description 02/16/2015 Historical Results Only [facility] Radiology Results [address] [place] [address] Shazia Burks MD Social History Tobacco Use Types Packs/Day [...] Description 06/11/2024 12:45 EDT Office Visit [facility] Ophthalmology [facility] [address] [place], [place] [phone] Santiago Anthony MD [address] [facility], [facility] [address] [place] [address] 07/15/2024 10:45 EDT Office Visit [facility] Cardiology Clinic [address] [place], [place] [phone] Gianfranco Flowers MD [address] [facility] [address] [place] [address] documented as of this encounter Procedures Procedure Name Priority Date/Time Associated Diagnosis Comments CT ANGIO NECK 02/16/2015 15:[address] ANGIO HEAD 02/16/2015 15:05 EDT documented in this encounter Results * CT ANGIO NECK W AND OR WO CONTRAST (02/16/2015 15:05 EDT) Anatomical Region Laterality Modality Neck Other 02/16/2015 15:0 5 EDT Narrative 02/16/2015 16:13 EDT ? EXAM: CAT SCAN/CT ANGIOGRAM CAROTID ? EX. D/ (5177) ? CLINICAL INFORMATION: ? T.I.A. ? INDICATION: TIA. ? COMPARISON: None. ? TECHNIQUE: CT angiogram of the head and CT angiogram of the neck was ? performed with 120 mL of Omnipaque 350 administered at a rate of 5.0 ? mL/second. Axial images and 3-D reconstructions were reviewed. ? FINDINGS: ? NECK CT ANGIOGRAM: The origins of the great vessels are widely ? patent. Very minimal intimal calcification is present on the inferior ? surface of the aortic arch. The right and left common carotid, ? internal carotid and external carotid arteries are widely patent. No ? stenosis, occlusion, dissection or pseudoaneurysm formation is seen. ? There is minimal intimal calcification at the origin of the right ? vertebral artery, possibly resulting in very minimal stenosis. The ? remainder of the extracranial portion of the right vertebral artery ? and the extracranial portion of the left vertebral artery are ? unremarkable. ? HEAD CT ANGIOGRAM: The intracranial portion of the right vertebral ? artery has a diminished caliber and irregular appearance. The ? intracranial portion of the left vertebral artery is patent. The ? right and left anterior inferior cerebellar and posterior inferior ? cerebellar arteries are patent. There is an approximate 18 mm long ? segment of occlusion of the basilar artery. The tip of the basilar ? artery, superior cerebellar arteries and posterior cerebral arteries ? are all patent. Right and left posterior communicating arteries are ? visualized. There is mild intimal calcification within the cavernous ? carotid artery. The intracranial portions of the ICAs are patent. The ? anterior communicating artery is patent. The right and left anterior ? cerebral and middle cerebral arteries are patent. No [place] ? aneurysm is identified. ? Precontrast and postcontrast enhanced scans of the brain were ? performed as part of the CT angiogram protocol. There is mild ? generalized brain parenchyma atrophy. Hypodensities within the white ? matter tracts of both cerebral hemispheres are nonspecific but ? typically seen with small vessel disease/chronic white matter ? ischemic change. The calcified lesion with increased vascularity in ? the right parietal lobe is unchanged in appearance when compared to a ? prior head CT performed on 01/08/2015. No intracranial hemorrhage or ? mass effect is seen. ? IMPRESSION: ? 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 ? PAGE 1 ? Signed Report ? (CONTINUED) ? 2. Partially calcified right parietal lesion, unchanged since the ? prior exam. ? REPORT SIGNED IN OTHER VENDOR SYSTEM 02/17/2015 ?Reported By: Baldev Pastrana MD ? CC: ? Transcribed Date/Time: 02/16/2015 (5773) ? Planer Operator: OFELIA ? Printed Date/Time: 03/10/2019 (8989) ? PAGE 2 ? Signed Report ? Procedure Note Baldev Pastrana MD - 08/05/2019 EXAM: CAT SCAN/CT ANGIOGRAM CAROTID EX. D/ (6307) CLINICAL INFORMATION: T.I.A. INDICATION: TIA. COMPARISON: None. TECHNIQUE: CT angiogram of the head and CT angiogram of the neckwas performed with 120 mL of Omnipaque 350 administered at a rate of5.0 mL/second. Axial images and 3-D reconstructions were reviewed. FINDINGS: NECK CT ANGIOGRAM: The origins of the great vessels are widely patent. Very minimal intimal calcification is present on theinferior surface of the aortic arch. The right and left common carotid, internal carotid and external carotid arteries are widely patent.No stenosis, occlusion, dissection or pseudoaneurysm formation isseen. There is minimal intimal calcification at the origin of the right vertebral artery, possibly resulting in very minimal stenosis. The remainder of the extracranial portion of the right vertebral artery and the extracranial portion of the left vertebral artery are unremarkable. HEAD CT ANGIOGRAM: The intracranial portion of the right vertebral artery has a diminished caliber and irregular appearance. The intracranial portion of the left vertebral artery is patent. The right and left anterior inferior cerebellar and posterior inferior cerebellar arteries are patent. There is an approximate 18 mm long segment of occlusion of the basilar artery. The tip of the basilar artery, superior cerebellar arteries and posterior cerebralarteries are all patent. Right and left posterior communicating arteries are visualized. There is mild intimal calcification within thecavernous carotid artery. The intracranial portions of the ICAs are patent.The anterior communicating artery is patent. The right and leftanterior cerebral and middle cerebral arteries are patent. No [place] aneurysm is identified. Precontrast and postcontrast enhanced scans of the brain were performed as part of the CT angiogram protocol. There is mild generalized brain parenchyma atrophy. Hypodensities within thewhite matter tracts of both cerebral hemispheres are nonspecific but typically seen with small vessel disease/chronic white matter ischemic change. The calcified lesion with increased vascularity in the right parietal lobe is unchanged in appearance when compared toa prior head CT performed on 01/08/2015. No intracranial hemorrhageor mass effect is seen. 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 PAGE 1 Signed Report (CONTINUED) 2. Partially calcified right parietal lesion, unchanged since the prior exam. REPORT SIGNED IN OTHER VENDOR SYSTEM 02/17/2015 Reported By: Baldev Pastrana MD CC: Transcribed Date/Time: 02/16/2015 (9845) Planer Operator: OFELIA Printed Date/Time: 03/10/2019 (5869) PAGE 2 Signed Report Shazia Burks MD IM CT ORDERABLES * CT ANGIO HEAD W AND OR WO CONTRAST (02/16/2015 15:05 EDT) Anatomical Region Laterality Modality Other 02/16/2015 15:0 5 EDT Narrative 02/16/2015 16:13 EDT ? EXAM: CAT SCAN/CT ANGIOGRAM HEAD ?EX. D/ (1447) ? CLINICAL INFORMATION: ? T.I.A. ? INDICATION: TIA. ? COMPARISON: None. ? TECHNIQUE: CT angiogram of the head and CT angiogram of the neck was ? performed with 120 mL of Omnipaque 350 administered at a rate of 5.0 ? mL/second. Axial images and 3-D reconstructions were reviewed. ? FINDINGS: ? NECK CT ANGIOGRAM: The origins of the great vessels are widely ? patent. Very minimal intimal calcification is present on the inferior ? surface of the aortic arch. The right and left common carotid, ? internal carotid and external carotid arteries are widely patent. No ? stenosis, occlusion, dissection or pseudoaneurysm formation is seen. ? There is minimal intimal calcification at the origin of the right ? vertebral artery, possibly resulting in very minimal stenosis. The ? remainder of the extracranial portion of the right vertebral artery ? and the extracranial portion of the left vertebral artery are ? unremarkable. ? HEAD CT ANGIOGRAM: The intracranial portion of the right vertebral ? artery has a diminished caliber and irregular appearance. The ? intracranial portion of the left vertebral artery is patent. The ? right and left anterior inferior cerebellar and posterior inferior ? cerebellar arteries are patent. There is an approximate 18 mm long ? segment of occlusion of the basilar artery. The tip of the basilar ? artery, superior cerebellar arteries and posterior cerebral arteries ? are all patent. Right and left posterior communicating arteries are ? visualized. There is mild intimal calcification within the cavernous ? carotid artery. The intracranial portions of the ICAs are patent. The ? anterior communicating artery is patent. The right and left anterior ? cerebral and middle cerebral arteries are patent. No [place] ? aneurysm is identified. ? Precontrast and postcontrast enhanced scans of the brain were ? performed as part of the CT angiogram protocol. There is mild ? generalized brain parenchyma atrophy. Hypodensities within the white ? matter tracts of both cerebral hemispheres are nonspecific but ? typically seen with small vessel disease/chronic white matter ? ischemic change. The calcified lesion with increased vascularity in ? the right parietal lobe is unchanged in appearance when compared to a ? prior head CT performed on 01/08/2015. No intracranial hemorrhage or ? mass effect is seen. ? IMPRESSION: ? 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 ? PAGE 1 ? Signed Report ? (CONTINUED) ? 2. Partially calcified right parietal lesion, unchanged since the ? prior exam. ? REPORT SIGNED IN OTHER VENDOR SYSTEM 02/17/2015 ?Reported By: Baldev Pastrana MD ? CC: ? Transcribed Date/Time: 02/16/2015 (1613) ? Planer Operator: OFELIA ? Printed Date/Time: 03/10/2019 (1709) ? PAGE 2 ? Signed Report ? Procedure Note Baldev Pastrana MD - 08/05/2019 EXAM: CAT SCAN/CT ANGIOGRAM HEAD EX. D/ (1447) CLINICAL INFORMATION: T.I.A. INDICATION: TIA. COMPARISON: None. TECHNIQUE: CT angiogram of the head and CT angiogram of the neckwas performed with 120 mL of Omnipaque 350 administered at a rate of5.0 mL/second. Axial images and 3-D reconstructions were reviewed. FINDINGS: NECK CT ANGIOGRAM: The origins of the great vessels are widely patent. Very minimal intimal calcification is present on theinferior surface of the aortic arch. The right and left common carotid, internal carotid and external carotid arteries are widely patent.No stenosis, occlusion, dissection or pseudoaneurysm formation isseen. There is minimal intimal calcification at the origin of the right vertebral artery, possibly resulting in very minimal stenosis. The remainder of the extracranial portion of the right vertebral artery and the extracranial portion of the left vertebral artery are unremarkable. HEAD CT ANGIOGRAM: The intracranial portion of the right vertebral artery has a diminished caliber and irregular appearance. The intracranial portion of the left vertebral artery is patent. The right and left anterior inferior cerebellar and posterior inferior cerebellar arteries are patent. There is an approximate 18 mm long segment of occlusion of the basilar artery. The tip of the basilar artery, superior cerebellar arteries and posterior cerebralarteries are all patent. Right and left posterior communicating arteries are visualized. There is mild intimal calcification within thecavernous carotid artery. The intracranial portions of the ICAs are patent.The anterior communicating artery is patent. The right and leftanterior cerebral and middle cerebral arteries are patent. No [place] aneurysm is identified. Precontrast and postcontrast enhanced scans of the brain were performed as part of the CT angiogram protocol. There is mild generalized brain parenchyma atrophy. Hypodensities within thewhite matter tracts of both cerebral hemispheres are nonspecific but typically seen with small vessel disease/chronic white matter ischemic change. The calcified lesion with increased vascularity in the right parietal lobe is unchanged in appearance when compared toa prior head CT performed on 01/08/2015. No intracranial hemorrhageor mass effect is seen. 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 PAGE 1 Signed Report (CONTINUED) 2. Partially calcified right parietal lesion, unchanged since the prior exam. REPORT SIGNED IN OTHER VENDOR SYSTEM 02/17/2015 Reported By: Baldev Pastrana MD CC: Transcribed Date/Time: 02/16/2015 (1613) Planer Operator: OFELIA Printed Date/Time: 03/10/2019 (2792) PAGE 2 Signed Report Shazia Burks MD IMG CT ORDERABLES documented in this encounter Visit Diagnoses Not on filedocumented in this encounter Care Teams Skein Bander Relationship Specialty Start Date End Date Unknown, Provider, PCP - General 01/14/15 08/26/19 documented as of this encounter
[2024-04-29 19:23] LABS: BUN 18 mg/dL (7-18); Calcium 9.1 mg/dL (8.5-10.1); Chloride 104 mmol/L (98-107); Estimated GFR 54.87 (mL/min/1.73m2); Glucose 193 mg/dL (74-106); Potassium 3.2 mmol/L (3.5-5.1); Sodium 141 mmol/L (136-145); TSH 0.48 uIU/Ml (0.36-3.74)
== END 2024-04-29 18:09 | disposition home or self-care (01) ==
LOC: LBN 18:08
PROVIDERS: PCP Family Medicine; Visit Provider Family Medicine
DX: R68.89 Other general symptoms and signs (principal)
CPT/HCPCS: 80048; 84443